=== PATIENT | female | born 2005 | race African-American/Black ===

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

== ENCOUNTER 2025-01-20 15:20 | Emergency (ER) | payer SELFPAY ==
[2025-01-20 15:24] VITALS: BP 143/90; PULSE 139; RESP 22; TEMP 36.9; O2SAT 99; BMI 21.9
--- NOTE | 2025-01-20 15:31 | EX.ED.GENINJ ---
HPI History of Present Illness Chief Complaint: Abd Pain Informant: patient Onset/Context/Timing Onset: Today Mechanism/Context: Fall Quality of Pain: Burning Location: Abdomen and left lower ribs Current Severity: Severe Maximum Severity: Severe Worsened by: Nothing Relieved by: Nothing Associated Symptoms Associated Symptoms: Negative for Parasthesias, Weakness, Loss of function, Inability to ambulate, Loss of consciousness or Amnesia Narrative Narrative: Patient presents with abdominal pain and left rib pain that began after a fall. Patient states she fell down approximately 10 wooden steps. Patient denies any head injury or loss of consciousness. Patient states her pain is mainly over her abdomen and left lower ribs. Patient admits to some nausea and vomiting. Patient states she is vomiting up some blood. Patient denies any diarrhea, melena, or hematochezia. Patient states she has had some dysuria and frequency over the past couple days. Patient denies any fevers or chills. [facility] Medical History Wears glasses Bipolar disorder Anxiety Non-smoker PCOS (polycystic ovarian syndrome) Endometriosis determined by laparoscopy ADHD Asthma Home Medications ?Medication ?Instructions ?Recorded ?Last Taken ?Type albuterol sulfate 90 mcg/actuation 1 puff inhalation PRN PRN Wheezing 01/10/19 12/21/23 History aerosol inhaler (Ventolin HFA) melatonin 5 mg tablet 5 mg PO PRN PRN Insomnia 07/19/19 12/21/23 History loratadine 10 mg capsule 10 mg PO DAILY 12/11/20 12/21/23 History norethindrone acetate 5 mg tablet 5 mg PO DAILY 11/28/22 12/21/23 History d-mannose 500 mg capsule 2,000 mg PO DAILY SUPPLEMENT 12/21/23 12/21/23 History naproxen 500 mg tablet 500 mg PO Q12H PRN PRN Pain #20 04/12/24 Unknown Rx tabs penicillin V potassium 500 mg 500 mg PO 4X/DAY #40 tabs 04/12/24 Unknown Rx tablet methocarbamol 500 mg tablet 1,000 mg (2 x 500 mg) PO 4X/DAY 04/17/24 Unknown Rx PRN Muscle pain/spasm #56 tabs Allergy/AdvReac Type Severity Reaction Status Date / Time tree and shrub pollen Allergy Other Verified 01/20/25 15:23 Surgical History S/P laparoscopy Social History Smoking Status: Current every day smoker tobacco type: cigarettes and e-cigarettes alcohol intake: never substance use type: does not use ROS ROS ED Constitutional Constitutional ED: Denies chills or fever(s) Eyes Eyes: Denies blurry vision or change in vision ENT ENT ED: Denies rhinorrhea or sore throat Cardiovascular Cardiovascular: Reports chest pain; Denies palpitations Respiratory/Chest Respiratory/Chest: Denies cough or dyspnea Gastrointestinal Gastrointestinal: Reports abdominal pain, nausea and vomiting; Denies diarrhea Genitourinary Genitourinary ED: Reports dysuria and urinary frequency Musculoskeletal Musculoskeletal: Denies back pain or neck pain Integumentary Denies abscess or rash Neurologic Neurologic: Reports headache(s); Denies weakness Allergic/Immunologic Allergic/Immunologic ED: Denies mouth swelling or urticaria EXAM Physical Exam Const Vital Signs: 01/20/25 15:24 01/20/25 16:20 01/20/25 17:10 Temperature 98.5 F Temperature Source Oral Pulse Rate 139 H 69 82 Respiratory Rate 22 H 15 16 Blood Pressure 143/90 H 116/73 130/77 H Blood Pressure Mean 107 87 94 Pulse Ox 99 100 100 Oxygen Delivery Method Room Air Room Air Room Air 01/20/25 18:00 01/20/25 19:00 Temperature 98.0 F Temperature Source Pulse Rate 78 69 Respiratory Rate 18 18 Blood Pressure 110/62 116/57 L Blood Pressure Mean 78 76 Pulse Ox 99 100 Oxygen Delivery Method Room Air Positive well nourished and well developed Constitutional Narrative: BMI is 21.9. General Appearance ED: well developed HEENT atraumatic; Negative for tenderness Neck full ROM Chest Wall Chest Narrative: There is tenderness over the left lower ribs. There is no bony crepitus or step-off. There is no subcutaneous emphysema noted. Resp normal respiratory effort and clear to auscultation bilaterally Cardio regular rhythm Rate: tachycardic GI non-distended Palpation: tender epigastric, LLQ, RLQ, LUQ, RUQ, periumbilical and suprapubic Extremity normal to inspection and full ROM Neuro oriented x3, CN's II-XII intact bilaterally, moves all extremities, no focal motor deficits and no sensory deficits noted Ezequiel Coma Scale: document GCS findings Spontaneous Obeys Commands Oriented 15 Sensorium / Orientation: alert Motor Exam: strength 5/5 throughout Psych mental status grossly normal Mood & Affect: anxious and tearful MDM MDM MDM Narrative Medical decision making narrative: Differential diagnosis includes bowel obstruction, perforation, rib fracture, chest wall contusion, pneumonia, pneumothorax, urinary tract infection, pyelonephritis, splenic rupture, hepatic laceration, pancreatitis, and contusion. CT scan of the chest, abdomen, and pelvis will be obtained to assess for rib fracture, pneumothorax, splenic laceration, hepatic laceration, bowel obstruction, and perforation. CBC will be obtained to assess for leukocytosis and anemia. Comprehensive metabolic profile will be obtained to assess for hepatic function, renal function, and electrolyte abnormality. Lipase will be obtained to assess for pancreatitis. Urinalysis will be obtained to assess for urinary tract infection and hematuria. Serum hCG will be obtained to assess for . History & Record Review Additional record(s) reviewed:: Prior ED visit and Prior labs Lab Data Attestation: I reviewed the patient's lab results. Lab results narrative: CBC was reviewed and was within normal limits. Comprehensive metabolic profile was reviewed and was within normal limits. Lipase was reviewed and was normal at 28. Serum hCG was reviewed and was negative. Urinalysis was reviewed. There is no evidence of urinary tract infection or hematuria. Labs: Laboratory Results - last 24 hr 01/20/25 01/20/25 15:27 17:07 WBC 10.1 RBC 4.70 Hgb 13.5 Hct 40.5 MCV 86.2 MCH 28.7 MCHC 33.3 RDW Std Deviation 37.2 RDW Coeff of Ray 11.8 Plt Count 358 MPV 10.1 Immature Gran % (Auto) 0.300 Neut % (Auto) 60.1 Lymph % (Auto) 30.2 Long % (Auto) 6.6 Eos % (Auto) 1.9 Baso % (Auto) 0.9 Absolute Neuts (auto) 6.1 Absolute Lymphs (auto) 3.05 Nucleated RBC % 0 Sodium 139 Potassium 3.9 Chloride 105 Carbon Dioxide 21.7 Anion Gap 12 BUN 8 Creatinine 0.94 Estim Creat Clear Calc 86.62 Est GFR (MDRD) Non-Af 89 BUN/Creatinine Ratio 8.7 L Glucose 92 Calcium 9.7 Total Bilirubin 0.67 AST 25 ALT 13 Alkaline Phosphatase 58 Total Protein 7.7 Albumin 4.7 Globulin 3.0 Albumin/Globulin Ratio 1.6 Lipase 28 Serum , Qual NEGATIVE Urine Color Straw Urine Clarity Clear Urine pH 7.0 Ur Specific [place] 1.010 Urine Protein 15 H Urine Glucose (UA) Normal Urine Ketones Negative Urine Occult Blood Negative Urine Nitrite Negative Urine Bilirubin Negative Urine Urobilinogen Normal Ur Leukocyte Esterase Negative Urine RBC 0-5 SEEN Urine WBC 0-5 SEEN Ur Squamous Epith Cells 0 SEEN Urine Bacteria 0 SEEN Urine Mucus 0 SEEN Radiography Diagnostic Testing: Clinical Impression(s) from Imaging Studies Chest/Abdomen/Pelvis CT 01/20/25 16:59 IMPRESSION: No acute traumatic findings. Urinary bladder wall thickening may reflect cystitis versus nondistention; consider correlation with urinalysis. Question 3 mm nodule within the right middle lobe best seen on series 2, image 66. Reading Location: [facility] CT scan of the chest, abdomen, and pelvis was obtained. There is no acute abnormality noted. There are no rib fractures or pneumothorax. There is no pneumonia. There is some urinary bladder wall thickening. There is no free air or free fluid. There are no solid organ injuries. This was interpreted by the radiologist and was also independently reviewed by myself. Treatment and Re-Evaluation Narrative: Patient was given IV fluids, morphine, and Zofran. Patient was feeling better on reevaluation. Patient was advised of her findings. Patient was advised that this is most likely bruising. Patient was instructed to take Tylenol or ibuprofen as needed for pain. Patient was instructed to follow-up with her primary care physician in 5 to 7 days. Patient was instructed to return if worse in any way. Patient understood and was agreeable with the plan. All questions were answered. Discharge Plan Triage Chief Complaint: Abd Pain ED Provider: Javier Isabel Dx/Rx/DC Orders Clinical Impression: Fall, Chest wall contusion, Abdominal contusion Instructions: ED Soft Tissue Contusion, ED Chest Wall Contusion Prescriptions: No Action albuterol sulfate [Ventolin HFA] 108 HFA aerosol inhaler 1 puff inhalation PRN PRN (Reason: Wheezing) melatonin 5 tablet 5 mg PO PRN PRN (Reason: Insomnia) loratadine 10 MG capsule 10 mg PO DAILY norethindrone acetate 5 mg tablet 5 mg PO DAILY penicillin V potassium 500 mg tablet 500 mg PO 4X/DAY Qty: 40 0RF naproxen 500 mg tablet 500 mg PO Q12H PRN PRN (Reason: Pain) Qty: 20 0RF methocarbamol 500 mg tablet 1,000 mg PO 4X/DAY PRN (Reason: Muscle pain/spasm) Qty: 56 0RF d-mannose 500 mg capsule 2,000 mg PO DAILY Primary Care Provider: Mitzy Peterson Referrals: Mitzy Peterson MD [Primary Care Provider] - 5-7 Days Print Language: Kiswahili Disposition Disposition: Home, Self Care Discharge Date/Time: 01/20/25 19:14
[2025-01-20] MEDS: Morphine 4 MG/ML Syringe IV (15:44)
[2025-01-20] MEDS: 0.9% Normal Saline (1000mL) 1,000 ML 1000 ML IV (15:45)
[2025-01-20] MEDS: Ondansetron 4 MG/2 ML Vial IV (15:46)
[2025-01-20 15:48] LABS: Absolute Lymphocyte Count 3.05 X10^3/uL (0.83-4.51); Absolute Neutrophil Count 6.1 X10^3/uL (2.0-7.7); Basophil# 0.09 X10^3/uL; Basophil% 0.9 % (0-1); Eosinophil# 0.19 X10^3/uL; Eosinophils% 1.9 % (0-5); Hematocrit 40.5 % (37-47); Hemoglobin 13.5 g/dL (12.0-15.0); Lymphocyte # 3.05 X10^3/ul (0.83-4.51); Lymphocyte % 30.2 % (19-41); Mean Corp Hgb Conc 33.3 g/dL (32-36); Mean Corpuscular Hgb 28.7 pg (27.0-32.0); Mean Corpuscular Volume 86.2 fL (81-99); Mean Platelet Vol. 10.1 fl (6.2-12.0); Monocyte# 0.67 X10^3/uL; Monocyte% 6.6 % (0-10); NRBC Flagged by Analyzer 0 % (0-5); Neutrophil # 6.08 X10^3/uL (2.7-7.7); Neutrophil % 60.1 % (47-70); Platelet Count 358 K/mm3 (150-450); RBC Distribution Width CV 11.8 % (11.6-14.6); RBC Distribution Width SD 37.2 fl (35.1-43.9); White Blood Count 10.1 K/mm3 (4.4-11.0)
[2025-01-20 16:20] VITALS: BP 116/73; PULSE 69; RESP 15; O2SAT 100
[2025-01-20 16:36] LABS: ALB/GLOB Ratio 1.6 RATIO (0.9-2.4); AST(SGOT) 25 U/L (<=31); Alanine Aminotransfer ALT/SGPT 13 U/L (<=34); Albumin, Serum 4.7 g/dL (3.5-5.0); Alkaline Phosphatase 58 U/L (35-104); Anion Gap 12 (5-15); BUN 8 mg/dL (4-19); BUN/Creat Ratio 8.7 RATIO (10-20); Calcium,Total 9.7 mg/dL (7.6-11.0); Carbon Dioxide 21.7 mmol/L (21.0-32.0); Chloride 105 mmol/L (98-108); Creatinine, Serum 0.94 mg/dL (0.70-1.20); EST Glomerular Filtration Rate 89 (>60); Estimated Creatinine Clearance 86.62 ml/min (50-250); Glucose 92 mg/dL (70-99); Lipase 28 U/L (13-75); Potassium 3.9 mmol/L (3.3-5.1); Protein, Total 7.7 g/dL (5.9-8.4); Sodium Level 139 mmol/L (133-145); Total Bilirubin 0.67 mg/dL (0.00-1.30)
[2025-01-20 16:49] LABS: Internal QC Validated? YES +Cl - CLEAR BKGD; Pregnancy, Serum, hCG Quali. NEGATIVE Negative; Record Kit Lot#, Serum Preg. 947241
--- NOTE | 2025-01-20 16:59 | CT_ITS ---
PROCEDURE: CT CHEST, ABD, PEL W/CONTRAST 01/20/2025 REASON FOR EXAM: FALL TECHNIQUE: Chest, abdomen and pelvis CT with intravenous contrast. Coronal and Sagittal reconstruction series were provided. One or more dose reduction techniques were used (e.g., Automated exposure control, adjustment of the mA and/or kV according to patient size, use of iterative reconstruction technique. CONTRAST: 100 mL of Isovue 370 RADIATION DOSE SUMMARY: DLP: 404 mGycm COMPARISON: none FINDINGS: CT CHEST: Lymph nodes: Prominent bilateral axillary lymph nodes. Heart and Vasculature: Unremarkable Lungs and Airways: No focal consolidations. Left base subsegmental atelectasis. No pleural effusion or pneumothorax. Question 3 mm nodule within the right middle lobe best seen on series 2, image 66. Pleura: Unremarkable Bones: No acute fractures CT ABDOMEN/PELVIS: The liver, spleen, pancreas, both kidneys, and both adrenal glands demonstrate no acute findings. The gallbladder is unremarkable. The stomach is unremarkable. The aorta and IVC demonstrate no acute findings. There is no free air, free fluid or intestinal obstruction. The small bowel loops are not dilated. The appendix is not clearly identified, although there are no secondary signs of appendicitis. No bowel obstruction. The pelvic structures are intact. There is no solid pelvic mass. Prominent bilateral inguinal lymph nodes. Urinary bladder wall thickening may reflect cystitis versus nondistention; consider correlation with urinalysis. Visualized osseous structures demonstrate no acute abnormality. CT/CT Chest, Abd, Pel w/Contrast IMPRESSION: No acute traumatic findings. Urinary bladder wall thickening may reflect cystitis versus nondistention; cons ider correlation with urinalysis. Question 3 mm nodule within the right middle lobe best seen on series 2, image 66. Reading Location: [facility]
[2025-01-20 17:10] VITALS: BP 130/77; PULSE 82; RESP 16; O2SAT 100
[2025-01-20 17:11] LABS: Bacteria 0 SEEN /hpf (None Seen); Mucous, Urine 0 SEEN /hpf (<or=2+); Squamous Epithelial Cells - UA 0 SEEN /hpf (5-10)
[2025-01-20 18:00] VITALS: BP 110/62; PULSE 78; RESP 18; O2SAT 99
[2025-01-20 18:32] LABS: Color, Urine Straw (Yellow); Glucose, Dipstick Normal (Normal); Ketone-Dipstick Negative (Negative); Leukocyte Esterase-Dipstick Negative /ul (Negative); Nitrite-Dipstick Negative (Negative); Occult Blood-Urine Negative /ul (Negative); Protein-Dipstick 15 mg/dl (Negative); Urine Bilirubin Dipstick Negative (Negative); Urine Clarity Clear (Clear); Urine Urobilinogen Normal (Normal)
[2025-01-20 18:41] LABS: Red Blood Cells-Urine 0-5 SEEN /hpf (0-5); White Blood Cells 0-5 SEEN /hpf (0-5)
[2025-01-20 19:00] VITALS: BP 116/57; PULSE 69; RESP 18; TEMP 36.7; O2SAT 100
== END 2025-01-20 19:14 | disposition home or self-care (01) ==
PROVIDERS: Emergency Provider Emergency Medicine; PCP Pediatrics; Referring Provider Emergency Medicine; Visit Provider Emergency Medicine
DX: S30.1XXA Contusion of abdominal wall, initial encounter (principal); S20.20XA Contusion of thorax, unspecified, initial encounter; W10.9XXA Fall (on) (from) unspecified stairs and steps, initial encounter; R11.2 Nausea with vomiting, unspecified; R51.9 Headache, unspecified; R30.0 Dysuria; R35.0 Frequency of micturition; F17.210 Nicotine dependence, cigarettes, uncomplicated; E28.2 Polycystic ovarian syndrome
CPT/HCPCS: 71260; 74177; 80053; 81001; 83690; 84703; 85025; 96361; 96374; 96375; 99284; Q9967; A4216; J2405

== ENCOUNTER 2025-01-23 09:18 | Emergency (ER) | payer SELFPAY ==
[2025-01-23 09:19] VITALS: BP 118/73; PULSE 106; RESP 20; TEMP 36.8; O2SAT 100; BMI 21.4
--- NOTE | 2025-01-23 09:38 | ED.RN ---
per Dr. Peralta no sitter needed
--- NOTE | 2025-01-23 09:41 | ED.VIS.GI ---
HPI HPI - GI History of Present Illness Chief Complaint: Abd Pain Detail of Chief Complaint: Lower abdominal pelvic pain. Anxiety. Informant: patient and parent Abdominal Pain/Flank Pain Onset: Days Context: Gradual Onset Timing: Continuous Quality: Cramping Location: - (Lower abdominal pelvic pain bilaterally.) Current Severity: Mild Maximum Severity: Moderate Worsened by: Nothing Relieved by: Nothing Nausea/Vomiting/Emesis GI Symptom: Negative for Nausea or Vomiting Diarrhea/Melena/Hematochezia GI Symptom: Positive for - (History of constipation); Negative for Diarrhea, Melena or Hematochezia Associated Symptoms Associated Symptoms: Negative for Dysuria, Frequency, Hematuria or Urgency LMP: Sometime in November. Narrative Narrative: 19-year-old female G0, P0. History of bipolar, polycystic ovarian syndrome endometriosis. Only prior abdominal surgery for exploratory laparotomy. That time he diagnosed endometriosis. Denies any vaginal bleeding or discharge. Last menstrual period was sometime in November she is typically irregular. Denies any dysuria. Was seen 2 to 3 days ago. Had extensive workup that was negative. Including a CAT scan. She has had pain like this before. She is not actively suicidal. She is very anxious. She just wants to cut out her ovaries to stop the pain. Prior similar symptoms: Yes Recent Illness/Hospitalization: No PFSH PFSH Medical History Wears glasses Bipolar disorder Anxiety Non-smoker PCOS (polycystic ovarian syndrome) Endometriosis determined by laparoscopy ADHD Asthma Home Medications ?Medication ?Instructions ?Recorded ?Last Taken ?Type lorazepam 1 mg tablet (Ativan) 1 mg PO DAILY PRN anxiety 7 days 01/23/25 Unknown Rx #7 tabs Allergy/AdvReac Type Severity Reaction Status Date / Time tree and shrub pollen Allergy Other Verified 01/23/25 09:19 Surgical History S/P laparoscopy Social History Smoking Status: Current every day smoker tobacco type: cigarettes and e-cigarettes alcohol intake: never substance use type: does not use ROS ROS ED ROS Narrative Lower abdominal pain. Constitutional Constitutional ED: Denies chills or fever(s) ENT ENT ED: Denies ear pain Cardiovascular Cardiovascular: Denies chest pain Respiratory/Chest Respiratory/Chest: Denies cough or dyspnea Gastrointestinal Gastrointestinal: Reports abdominal pain and constipation; Denies diarrhea, melena, nausea or vomiting Genitourinary Genitourinary ED: Denies dysuria, hematuria or urinary frequency Musculoskeletal Musculoskeletal: Denies arthralgias or back pain Integumentary Denies abscess Neurologic Neurologic: Denies headache(s) Psychiatric Psychiatric: Reports anxiety and depression Endocrine Endocrinology: Denies polydipsia Hematologic/Lymphatic Hematologic/Lymphatic: Denies easy bleeding Allergic/Immunologic Allergic/Immunologic ED: Denies mouth swelling, tongue swelling or urticaria EXAM Physical Exam Narrative Exam Narrative: 19-year-old female very emotionally upset. Very anxious. Actively shaking. Mother at bedside. Patient is tearful. Vital signs are stable and afebrile. She does not look septic or toxic. H EENT exam pupils round reactive light. Moist John membranes. She is crying. Neck nontender no lymphadenopathy. Lungs clear to auscultation bilaterally. Heart tachycardic rate of 105 no murmur. Chest wall and ribs are nontender. Abdomen soft, nondistended, no peritoneal signs. No hernia or mass. No distention or obstruction. Revealing no significant tenderness she complains of pain in the lower abdomen pelvic area but there is really not significant reproducible pain. There is no Chung sign. No specific McBurney's point tenderness. Moving all 4 extremities. Nontender no edema. Normal strength. She ambulates without any difficulty. Back nontender. Neurologically she is awake and alert no focal motor deficits. Emotionally she is very upset. Extremely anxious and nervous. Const Vital Signs: 01/23/25 09:19 Temperature 98.2 F Temperature Source Oral Pulse Rate 106 H Respiratory Rate 20 H Blood Pressure 118/73 Blood Pressure Mean 88 Pulse Ox 100 Oxygen Delivery Method Room Air Positive well nourished and well developed; Negative for obese, cachectic, contractures or unkempt General Appearance ED: well developed and NAD; Negative for unkempt, cachectic, contractures or pallor Nutritional Appearance: Negative for cachectic or obese HEENT Reports moist mucous membranes normocephalic and atraumatic Eyes PERRL and EOMs intact bilaterally Neck no lymphadenopathy, supple and no JVD Resp normal respiratory effort and clear to auscultation bilaterally Cardio regular rhythm, S1 normal heart sound, S2 normal heart sound and no murmurs; Negative for regular rate Rate: tachycardic GI non-tender, non-distended and no masses Auscultation: normoactive bowel sounds Palpation: soft; Negative for tender, guarding, hepatomegaly, splenomegaly, hernia, mass, pulsatile mass or rebound tenderness present Back/Spine no CVA tenderness Extremity full ROM General Extremety ED: Negative for edema or tenderness General Extremity: Negative for edema Neuro CN's II-XII intact bilaterally and moves all extremities Sensorium / Orientation: alert, oriented to person, oriented to place and oriented to time; Negative for orientation impaired, confused, lethargic or stuporous Motor Exam: strength 5/5 throughout Psych mental status grossly normal and thought process normal Appearance: Negative for unkempt Attitude: No agitated Mood & Affect: Negative for depressed, anxious or tearful Skin no wounds General Skin Exam: Negative for jaundice or pallor Lesions: no lesions Rashes: no rashes MDM MDM MDM Narrative Medical decision making narrative: 19-year-old female history of bipolar, polycystic ovarian syndrome, and endometriosis. She has never been . She was seen here 2 to 3 days ago after a fall and extensive workup including a CAT scan all of which was negative. Negative UA and negative test. I think most of this is anxiety. There could also be a component of this of endometriosis. Her exam is benign. I we will recheck a UA and a test. She will be given Ativan for anxiety and Toradol for her discomfort. Do not think she needs reimaged. Repeat exam at 10:29 AM patient is doing well. She is not having pain. Her abdomen is completely benign there is no tenderness at all. Mom is at bedside her sister is now at bedside also. Patient looks much better. She is calm and relaxed after the Ativan and Toradol. We do long discussion show follow-up with [facility] for her endometriosis. She will follow-up with the counseling center for her anxiety. She will be given prescription of Ativan 1 mg 5 total for her and the family decide when she needs to use it. History & Record Review Discussion w/independent historian: Patient and Family Additional record(s) reviewed:: Prior inpatient record, Prior outpatient record, Prior ED visit and Prior labs Lab Data Attestation: I reviewed the patient's lab results. Lab results narrative: Serum test negative. UA no nitrites. No white and red cells. Only 1+ bacteria. Serum is negative. Labs: Laboratory Results - last 24 hr 01/23/25 01/23/25 09:45 09:48 Serum , Qual NEGATIVE Urine Color Yellow Urine Clarity Sl. Cloudy Urine pH 6.5 Ur Specific Petal 1.010 Urine Protein 15 H Urine Glucose (UA) Normal Urine Ketones Negative Urine Occult Blood 10 H Urine Nitrite Negative Urine Bilirubin Negative Urine Urobilinogen Normal Ur Leukocyte Esterase 25 H Urine RBC 0-5 SEEN Urine WBC 0-5 SEEN Ur Squamous Epith Cells 0-5 SEEN Urine Bacteria 1+ Urine Mucus 0 SEEN Discharge Plan Triage Chief Complaint: Abd Pain ED Provider: Yaron Peralta Dx/Rx/DC Orders Clinical Impression: Pelvic pain, History of endometriosis, Anxiety Instructions: ED Anxiety Reaction, ED Endometriosis Prescriptions: New lorazepam [Ativan] 1 mg tablet 1 mg PO DAILY PRN (Reason: anxiety) 7 Days Qty: 7 0RF Primary Care Provider: Mityz Peterson Referrals: Counseling,Center [Group of Physicians] - As soon as possible Mitzy Peterson MD [Primary Care Provider] - Dorothy Bryant MD [Med Staff - Active Staff] - 1-2 Weeks Activity Restrictions/Additional Instructions: For your pelvic and endometriosis pain alternate Motrin and Tylenol. Ativan as needed for your anxiety. Do not drink alcohol or drive while taking it. Follow-up with the counseling center for your anxiety. Otherwise to help deal with anxiety. Read about it and learn about it. Exercise. Breathing techniques. Walking. Reading. Counseling. Support groups. Follow-up with a local [facility] for your pelvic pain and endometriosis. Print Language: Turkmen Disposition Disposition: Home, Self Care
[2025-01-23 09:51] LABS: Mucous, Urine 0 SEEN /hpf (<or=2+)
[2025-01-23 09:54] LABS: Color, Urine Yellow (Yellow); Glucose, Dipstick Normal (Normal); Ketone-Dipstick Negative (Negative); Leukocyte Esterase-Dipstick 25 /ul (Negative); Nitrite-Dipstick Negative (Negative); Occult Blood-Urine 10 /ul (Negative); Protein-Dipstick 15 mg/dl (Negative); Urine Bilirubin Dipstick Negative (Negative); Urine Clarity Sl. Cloudy (Clear); Urine Urobilinogen Normal (Normal); Urine pH 6.5 (5.0 - 8.0)
[2025-01-23] MEDS: Lorazepam 2 MG/ML WCH Syringe 1 MG IV (09:56)
[2025-01-23] MEDS: Ketorolac 30 MG/ML Syringe IV (09:56)
[2025-01-23 10:00] LABS: Bacteria 1+ /hpf (None Seen); Red Blood Cells-Urine 0-5 SEEN /hpf (0-5); Squamous Epithelial Cells - UA 0-5 SEEN /hpf (5-10); White Blood Cells 0-5 SEEN /hpf (0-5)
[2025-01-23 10:11] LABS: Internal QC Validated? YES +Cl - CLEAR BKGD; Pregnancy, Serum, hCG Quali. NEGATIVE Negative
[2025-01-23 11:04] VITALS: BP 140/71; PULSE 98; RESP 19; TEMP 36.6; O2SAT 1
== END 2025-01-23 11:08 | disposition home or self-care (01) ==
PROVIDERS: Emergency Provider Emergency Medicine; PCP Pediatrics; Visit Provider Emergency Medicine
DX: R10.2 Pelvic and perineal pain (principal); F41.9 Anxiety disorder, unspecified; F17.210 Nicotine dependence, cigarettes, uncomplicated; K59.00 Constipation, unspecified; E28.2 Polycystic ovarian syndrome; Z87.42 Personal history of other diseases of the female genital tract
CPT/HCPCS: 81001; 84703; 99284; A4216

== ENCOUNTER 2025-02-05 09:25 | Emergency (ER) | payer MEDICAID, SELFPAY ==
[2025-02-05 09:26] VITALS: BP 126/71; PULSE 98; RESP 14; TEMP 36.8; O2SAT 100; BMI 21.2
--- OUTSIDE RECORDS SUMMARY | 2025-02-05 09:43 | XMS RPT_ITS | CCD ---
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 [address] [place] [address] Emergency Department Summary 01/23/25 MR#: [id number] Acct: [id number] Name: LUIS BARAJAS Rep #: [id number] : 2005 19 From: Yaron Peralta MD PCP: Dr. Mitzy Fung MD Status:REG ER Location: ED HPI HPI - GI History of Present Illness Chief Complaint: Abd Pain Detail of Chief Complaint: Lower abdominal pelvic pain. Anxiety. Informant: patient and parent Abdominal Pain/Flank Pain Onset: Days Context: Gradual Onset Timing: Continuous Quality: Cramping Location: - (Lower abdominal pelvic pain bilaterally.) Current Severity: Mild Maximum Severity: Moderate Worsened by: Nothing Relieved by: Nothing Nausea/Vomiting/An sis GI Symptom: Negative for Nausea or Vomiting Diarrhea/Melena/Hem atochezia GI Symptom: Positive for - (History of constipation); Negative for Diarrhea, Melena or Hematochezia Associated Symptoms Associated Symptoms: Negative for Dysuria, Frequency, Hematuria or Urgency LMP: Sometime in November. Narrative Narrative: 19-year-old female G0, P0. History of bipolar, polycystic ovarian syndrome endometriosis. Only prior abdominal surgery for exploratory laparotomy. That time he diagnosed endometriosis. Denies any vaginal bleeding or discharge. Last menstrual period was sometime in November she is typically irregular. Denies any dysuria. Was seen 2 to 3 days ago. Had extensive workup that was negative. Including a CAT scan. She has had pain like this before. She is not actively suicidal. She is very anxious. She just wants to cut out her ovaries to stop the pain. Prior similar symptoms: Yes Recent Illness/Hospitaliza tion: No PFSH PFSH Medical History Wears glasses Bipolar disorder Anxiety Non-smoker PCOS (polycystic ovarian syndrome) Endometriosis determined by laparoscopy ADHD Asthma Home Medications ???Medication ???Instructions ???Recorded ???Last Taken ???Type lorazepam 1 mg tablet (Ativan) 1 mg PO DAILY PRN anxiety 7 days 0 01/23/25 Unknown Rx #7 tabs Allergy/AdvReac Type Severity Reaction Status Date / Time tree and shrub pollen Allergy Other Verified 01/23/25 09:19 Surgical History S/P laparoscopy Social History Smoking Status: Current every day smoker tobacco type: cigarettes and e-cigarettes alcohol intake: never substance use type: does not use ROS ROS ED ROS Narrative Lower abdominal pain. Constitutional Constitutional ED: Denies chills or fever(s) ENT ENT ED: Denies ear pain Cardiovascular Cardiovascular: Denies chest pain Respiratory/Chest Respiratory/Chest: Denies cough or dyspnea Gastrointestinal Gastrointestinal: Reports abdominal pain and constipation; Denies diarrhea, melena, nausea or vomiting Genitourinary Genitourinary ED: Denies dysuria, hematuria or urinary frequency Musculoskeletal Musculoskeletal: Denies arthralgias or back pain Integumentary Denies abscess Neurologic Neurologic: Denies headache(s) Psychiatric Psychiatric: Reports anxiety and depression Endocrine Endocrinology: Denies polydipsia Hematologic/Lymphat ic Hematologic/Lymphat ic: Denies easy bleeding Allergic/Immunologi c Allergic/Immunologi c ED: Denies mouth swelling, tongue swelling or urticaria EXAM Physical Exam Narrative Exam Narrative: 19-year-old female very emotionally upset. Very anxious. Actively shaking. Mother at bedside. Patient is tearful. Vital signs are stable and afebrile. She does not look septic or toxic. H EENT exam pupils round reactive light. Moist John membranes. She is crying. Neck nontender no lymphadenopathy. Lungs clear to auscultation bilaterally. Heart tachycardic rate of 105 no murmur. Chest wall and ribs are nontender. Abdomen soft, nondistended, no peritoneal signs. No hernia or mass. No distention or obstruction. Revealing no significant tenderness she complains of pain in the lower abdomen pelvic area but there is really not significant reproducible pain. There is no Chung sign. No specific McBurney's point tenderness. Moving all 4 extremities. Nontender no edema. Normal strength. She ambulates without any difficulty. Back nontender. Neurologically she is awake and alert no focal motor deficits. Emotionally she is very upset. Extremely anxious and nervous. Const Vital Signs: 01/23/25 09:19 Temperature 98.2 F Temperature Source Oral Pulse Rate 106 H Respiratory Rate 20 H Blood Pressure 118/73 Blood Pressure Mean 88 Pulse Ox 100 Oxygen Delivery Method Room Air Positive well nourished and well developed; Negative for obese, cachectic, contractures or unkempt General Appearance ED (more content not included)... Normal [facility] Ketones Test strip Ql (U)Ord ered By: Yaron Peralta on 01-23-2025 Ketones Ql (U) Negative Negative [facility] Microscopic analysis of urin e for red blood cells (RBC)Ordered By: Yaron Peralta on 01-23-2025 Microscopic analysis of urine for red blood cells (RBC) 0-5 SEEN /hpf 0-5 [facility] Mucus LM Ql (Urine sed)Order ed By: Yaron Peralta on 01-23-2025 Mucus Ql (Urine sed) 0 SEEN /hpf [facility] Nitrite Test strip Ql (U)Ord ered By: Yaron Peralta on 01-23-2025 Nitrite Ql (U) Negative Negative [facility] ,Serum,hCG Quali.on 01-23-2025 HCG, SERUM QUAL Negative Normal [facility] Comment on above: Performed By: #### L 700.6800 #### [facility] [address] [place], [address] Protein Test strip Ql (U)Ord ered By: Yaron Peralta on 01-23-2025 Protein Ql (U) 15 mg/dl High Negative [facility] Serum beta-hCG test, qualita tiveOrdered By: Yaron Peralta on 01-23-2025 Beta HCG ( test) Ql Negative [facility] Squamous epithelial cells de tection in urine sediment by light microscopyOrdered By: Yaron Peralta on 01-23-2025 Epithelial cells.squamous LM Ql (Urine sed) 0-5 SEEN /hpf 5-10 [facility] Urinalysis, Completeon 01-23 BACTERIA 1+ /hpf Normal None Seen [facility] Comment on above: Order Comment: CLEAN CATCH Performed By: #### L 400.0001 #### [facility] [address] [place], [place], [id number] EPI,SQUAMOUS 0-5 SEEN Normal 5-10 [facility] Comment on above: Order Comment: CLEAN CATCH Performed By: #### L 400.0001 #### [facility] [address] [place], [address] RBC 0-5 SEEN Normal 0-5 [facility] Comment on above: Order Comment: CLEAN CATCH Performed By: #### L 400.0001 #### [facility] [address] [place], [address] WBC 0-5 SEEN Normal 0-5 [facility] Comment on above: Order Comment: CLEAN CATCH Performed By: #### L 400.0001 #### [facility] [address] [place], [address] Mucus Ql (Urine sed) 0 SEEN Normal [facility] Comment on above: Order Comment: CLEAN CATCH Performed By: #### L 400.0001 #### [facility] [address] [place], [place], [id number] Urine clarityOrdered By: Lele Peralta on 01-23-2025 Clarity (U) Sl. Cloudy Clear [facility] Urine color determinationOrd ered By: Yaron Peralta on 01-23-2025 Color (U) Yellow Yellow [facility] Urine glucose detectionOrder ed By: Yaron Peralta on 01-23-2025 Glucose Ql (U) Normal mg/dl Normal [facility] Urine leukocyte esterase det ection by dipstickOrdered By: Yaron Peralta on 01-23-2025 Leukocyte esterase Test strip Ql (U) 25 /ul High Negative [facility] Urine pHOrdered By: Yaron Landis ght on 01-23-2025 pH (U) 6.5 [pH] 5.0 - 8.0 [facility] Urine sediment bacteria coun t by microscopy (number/high power field)Ordered By: Yaron Peralta on 01-23-2025 Bacteria LM.HPF (Urine sed) [#/Area] 1 /[HPF] None Seen [facility] Urine specific gravity measu rementOrdered By: Yaron Peralta on 01-23-2025 Specific gravity (U) [Rel density] 1.010 1.002-1.030 [facility] Urine urobilinogen measureme ntOrdered By: Yaron Peralta on 01-23-2025 Urobilinogen Ql (U) Normal mg/dl Normal [facility] White blood cell countOrdere d By: Yaron Peralta on 01-23-2025 White blood cell count 0-5 SEEN /hpf 0-5 [facility] Absolute lymphocyte countOrd ered By: Javier Isabel on 01-20-2025 Lymphocytes Auto (Unsp spec) [#/Vol] 3.05 10*3/uL 0.83-4.51 [facility] Absolute neutrophil countOrd ered By: Javier Isabel on 01-20-2025 Neutrophils (Bld) [#/Vol] 6.1 10*3/uL 2.0-7.7 [facility] Anion gap in Serum or Plasma Ordered By: Javier Isabel on 01-20-2025 Anion gap [Moles/Vol] 12 mmol/L 5-15 [facility] Automated lymphocyte count a s percentage of total leukocytesOrdered By: Javier Isabel on 01-20-2025 Lymphocytes/100 WBC Auto (Unsp spec) 30.2 % 19-41 [facility] BUN/creatinine ratioOrdered By: Javier Isabel on 01-20-2025 Urea nitrogen/Creatinine [Mass ratio] 8.7 mg/mg Low 10-20 [facility] Basophil percentageOrdered B y: Javier Isabel on 01-20-2025 Basophils/100 WBC (Bld) 0.9 % 0-1 [facility] Bilirubin Test strip Ql (U)O rdered By: Javier Isabel on 01-20-2025 Bilirubin Ql (U) Negative Negative [facility] Bilirubin, totalOrdered By: Javier Isabel on 01-20-2025 Bilirubin [Mass/Vol] 0.67 mg/dL 0.00-1.30 [facility] CBC W/Diff, Automatedon 12-24 Absolute Lymph 3.05 X10 3/uL Normal 0.83-4.51 [facility] Comment on above: Performed By: #### L 700.6800, L501.2450, L500.4050, L100.0100 #### [facility] [address] [place], [address] Absolute Neut 6.1 X10 3/uL Normal 2.0-7.7 [facility] Comment on above: Performed By: #### L 700.6800, L501.2450, L500.4050, L100.0100 #### [facility] [address] [place], [address] Basophils/100 WBC (Bld) 0.9 % Normal 0-1 [facility] Comment on above: Performed By: #### L 700.6800, L501.2450, L500.4050, L100.0100 #### [facility] [address] [place], [address] Eosinophils/100 WBC (Bld) 1.9 % Normal 0-5 [facility] Comment on above: Performed By: #### L 700.6800, L501.2450, L500.4050, L100.0100 #### [facility] [address] [place], [address] Erythrocyte distribution width (RBC) [Ratio] 11.8 % Normal 11.6-14.6 [facility] Comment on above: Performed By: #### L 700.6800, L501.2450, L500.4050, L100.0100 #### [facility] [address] [place], [address] Hematocrit (Bld) [Volume fraction] 40.5 % Normal 37-47 [facility] Comment on above: Performed By: #### L 700.6800, L501.2450, L500.4050, L100.0100 #### [facility] [address] [place], [address] Hemoglobin (Bld) [Mass/Vol] 13.5 g/dL Normal 12.0-15.0 [facility] Comment on above: Performed By: #### L 700.6800, L501.2450, L500.4050, L100.0100 #### [facility] [address] [place], [address] IG% 0.300 Normal 0.0-0.9 [facility] Comment on above: Result Comment: IG% - Immature Granulocytes (promyelocytes, myelocytes and metamyelocytes) > 1% indicates that a LEFT SHIFT is Present. Performed By: #### L 700.6800, L501.2450, L500.4050, L100.0100 #### [facility] [address] [place], [address] Lymphocytes/100 WBC (Bld) 30.2 % Normal 19-41 [facility] Comment on above: Performed By: #### L 700.6800, L501.2450, L500.4050, L100.0100 #### [facility] [address] [place], [address] MCH (RBC) [Entitic mass] 28.7 pg Normal 27.0-32.0 [facility] Comment on above: Performed By: #### L 700.6800, L501.2450, L500.4050, L100.0100 #### [facility] [address] [place], [address] MCHC (RBC) [Mass/Vol] 33.3 g/dL Normal 32-36 [facility] Comment on above: Performed By: #### L 700.6800, L501.2450, L500.4050, L100.0100 #### [facility] [address] [place], [address] MCV (RBC) [Entitic vol] 86.2 fL Normal 81-99 [facility] Comment on above: Performed By: #### L 700.6800, L501.2450, L500.4050, L100.0100 #### [facility] [address] [place], [address] Monocytes/100 WBC (Bld) 6.6 % Normal 0-10 [facility] Comment on above: Performed By: #### L 700.6800, L501.2450, L500.4050, L100.0100 #### [facility] [address] [place], [address] Neutrophils/100 WBC (Bld) 60.1 % Normal 47-70 [facility] Comment on above: Performed By: #### L 700.6800, L501.2450, L500.4050, L100.0100 #### [facility] [address] [place], [address] Nucleated RBC (Bld) [#/Vol] 0 10*3/uL Normal 0-5 [facility] Comment on above: Performed By: #### L 700.6800, L501.2450, L500.4050, L100.0100 #### [facility] [address] [place], [address] Platelet mean volume (Bld) [Entitic vol] 10.1 fL Normal 6.2-12.0 [facility] Comment on above: Performed By: #### L 700.6800, L501.2450, L500.4050, L100.0100 #### [facility] [address] [place], [address] Platelets (Bld) [#/Vol] 358 10*3/uL Normal 150-450 [facility] Comment on above: Performed By: #### L 700.6800, L501.2450, L500.4050, L100.0100 #### [facility] [address] [place], [address] RBC (Bld) [#/Vol] 4.70 10*6/uL Normal 4.2-5.4 [facility] Comment on above: Performed By: #### L 700.6800, L501.2450, L500.4050, L100.0100 #### [facility] [address] [place], [address] RDW SD 37.2 fl Normal 35.1-43.9 [facility] Comment on above: Performed By: #### L 700.6800, L501.2450, L500.4050, L100.0100 #### [facility] [address] [place], [address] WBC (Bld) [#/Vol] 10.1 10*3/uL Normal 4.4-11.0 [facility] Comment on above: Performed By: #### L 700.6800, L501.2450, L500.4050, L100.0100 #### [facility] [address] [place], [address] CT Chest, Abd, Pel w/Contras ton 01-20-2025 CT Chest, Abd, Pel w/Contrast [facility] Services [address] [place] [address] CT Chest, Abd, Pel w/Contrast MR#: [id number] Acct: [id number] Name: LUIS BARAJAS Rep #: [id number] : 2005 F 19 From: José Luis Robison PCP: Dr. Mitzy Fung MD Status: [facility] ER Study: CT Chest, Abd, Pel w/Contrast Date of Exam: Exam# [id number] Ordering Dr: Javier Isabel DO PROCEDURE: CT CHEST, ABD, PEL W/CONTRAST 01/20/2025 REASON FOR EXAM: FALL TECHNIQUE: Chest, abdomen and pelvis CT with intravenous contrast. Coronal and Sagittal reconstruction series were provided. One or more dose reduction techniques were used (e.g., Automated exposure control, adjustment of the mA and/or kV according to patient size, use of iterative reconstruction technique. CONTRAST: 100 mL of Isovue 370 RADIATION DOSE SUMMARY: DLP: 404 mGycm COMPARISON: none FINDINGS: CT CHEST: Lymph nodes: Prominent bilateral axillary lymph nodes. Heart and Vasculature: Unremarkable Lungs and Airways: No focal consolidations. Left base subsegmental atelectasis. No pleural effusion or pneumothorax. Question 3 mm nodule within the right middle lobe best seen on series 2, image 66. Pleura: Unremarkable Bones: No acute fractures CT ABDOMEN/PELVIS: The liver, spleen, pancreas, both kidneys, and both adrenal glands demonstrate no acute findings. The gallbladder is unremarkable. The stomach is unremarkable. The aorta and IVC demonstrate no acute findings. There is no free air, free fluid or intestinal obstruction. The small bowel loops are not dilated. The appendix is not clearly identified, although there are no secondary signs of appendicitis. No bowel obstruction. The pelvic structures are intact. There is no solid pelvic mass. Prominent bilateral inguinal lymph nodes. Urinary bladder wall thickening may reflect cystitis versus nondistention; consider correlation with urinalysis. Visualized osseous structures demonstrate no acute abnormality. CT/CT Chest, Abd, Pel w/Contrast IMPRESSION: No acute traumatic findings. Urinary bladder wall thickening may reflect cystitis versus nondistention; consider correlation with urinalysis. Question 3 mm nodule within the right middle lobe best seen on series 2, image 66. Reading Location: [facility] CC: Dr. Javier Isabel DO; Dr. Mitzy Fung MD Central Lab Technician: Signed Normal [facility] Carbon dioxide, total [Moles /volume] in Central venous bloodOrdered By: Javier Isabel on 01-20-2025 CO2 [Moles/Vol] 21.7 mmol/L 21.0-32.0 [facility] Chloride assayOrdered By: Sana Isabel on 01-20-2025 Chloride [Moles/Vol] 105 mmol/L 98-108 [facility] Comprehensive Metabolic Prof ilon 01-20-2025 Albumin [Mass/Vol] 4.7 g/dL Normal 3.5-5.0 [facility] Comment on above: Performed By: #### L 700.6800, L501.2450, L500.4050, L100.0100 #### [facility] [place], [address] Albumin/Globulin [Mass ratio] 1.6 {ratio} Normal 0.9-2.4 [facility] Comment on above: Performed By: #### L 700.6800, L501.2450, L500.4050, L100.0100 #### [facility] [address] [place], [address] ALK PHOS 58 U/L Normal 35-104 [facility] Comment on above: Performed By: #### L 700.6800, L501.2450, L500.4050, L100.0100 #### [facility] [address] [place], [address] ALT [Catalytic activity/Vol] 13 U/L Normal <=34 [facility] Comment on above: Performed By: #### L 700.6800, L501.2450, L500.4050, L100.0100 #### [facility] [address] [place], [address] AST [Catalytic activity/Vol] 25 U/L Normal <=31 [facility] Comment on above: Performed By: #### L 700.6800, L501.2450, L500.4050, L100.0100 #### [facility] [address] [place], [address] Bilirubin [Mass/Vol] 0.67 mg/dL Normal 0.00-1.30 [facility] Comment on above: Performed By: #### L 700.6800, L501.2450, L500.4050, L100.0100 #### [facility] [address] [place], [address] BUN/CRE 8.7 RATIO Low 10-20 [facility] Comment on above: Performed By: #### L 700.6800, L501.2450, L500.4050, L100.0100 #### [facility] [address] [place], [address] Calcium [Mass/Vol] 9.7 mg/dL Normal 7.6-11.0 [facility] Comment on above: Performed By: #### L 700.6800, L501.2450, L500.4050, L100.0100 #### [facility] [address] [place], [address] Chloride [Moles/Vol] 105 mmol/L Normal 98-108 [facility] Comment on above: Performed By: #### L 700.6800, L501.2450, L500.4050, L100.0100 #### [facility] [address] [place], [address] CO2 [Moles/Vol] 21.7 mmol/L Normal 21.0-32.0 [facility] Comment on above: Performed By: #### L 700.6800, L501.2450, L500.4050, L100.0100 #### [facility] [address] [place], [address] Creatinine [Mass/Vol] 0.94 mg/dL Normal 0.70-1.20 [facility] Comment on above: Performed By: #### L 700.6800, L501.2450, L500.4050, L100.0100 #### [facility] [address] [place], [address] ECRCL 86.62 ml/min Normal 50-250 [facility] Comment on above: Performed By: #### L 700.6800, L501.2450, L500.4050, L100.0100 #### [facility] [address] [place], [address] GAP 12 Normal 5-15 [facility] Comment on above: Performed By: #### L 700.6800, L501.2450, L500.4050, L100.0100 #### [facility] [address] [place], [address] GFR/1.73 sq M.predicted among non-blacks MDRD (S/P/Bld) [Vol rate/Area] 89 mL/min/{1.73_m2} Normal >60 [facility] Comment on above: Result Comment: mL/m in/1.73m2 CKD-EPI Creatinine Equation (2020) Performed By: #### L 700.6800, L501.2450, L500.4050, L100.0100 #### [facility] [address] [place], [address] Globulin (S) [Mass/Vol] 3.0 g/dL Normal 2.2-4.2 [facility] Comment on above: Performed By: #### L 700.6800, L501.2450, L500.4050, L100.0100 #### [facility] [address] [place], [address] Glucose [Mass/Vol] 92 mg/dL Normal 70-99 [facility] Comment on above: Performed By: #### L 700.6800, L501.2450, L500.4050, L100.0100 #### [facility] [address] [place], [address] Potassium [Moles/Vol] 3.9 mmol/L Normal 3.3-5.1 [facility] Comment on above: Performed By: #### L 700.6800, L501.2450, L500.4050, L100.0100 #### [facility] [address] [place], [address] Sodium [Moles/Vol] 139 mmol/L Normal 133-145 [facility] Comment on above: Performed By: #### L 700.6800, L501.2450, L500.4050, L100.0100 #### [facility] [address] [place], [address] T PROT 7.7 g/dL Normal 5.9-8.4 [facility] Comment on above: Performed By: #### L 700.6800, L501.2450, L500.4050, L100.0100 #### [facility] [address] [place], [address] Urea nitrogen [Mass/Vol] 8 mg/dL Normal 4-19 [facility] Comment on above: Performed By: #### L 700.6800, L501.2450, L500.4050, L100.0100 #### [facility] [address] [place], [address] Emergency Department Summary on 01-20-2025 Emergency Department Summary [facility] Medical Records Department [address] [place] [address] Emergency Department Summary 01/20/25 MR#: [id number] Acct: [id number] Name: LUIS BARAJAS Rep #: [id number] : 2005 19 From: Javier Isabel DO PCP: Dr. Mitzy Fung MD Status:DEP ER Location: ED HPI History of Present Illness Chief Complaint: Abd Pain Informant: patient Onset/Context/Timin g Onset: Today Mechanism/Context: Fall Quality of Pain: Burning Location: Abdomen and left lower ribs Current Severity: Severe Maximum Severity: Severe Worsened by: Nothing Relieved by: Nothing Associated Symptoms Associated Symptoms: Negative for Parasthesias, Weakness, Loss of function, Inability to ambulate, Loss of consciousness or Amnesia Narrative Narrative: Patient presents with abdominal pain and left rib pain that began after a fall. Patient states she fell down approximately 10 wooden steps. Patient denies any head injury or loss of consciousness. Patient states her pain is mainly over her abdomen and left lower ribs. Patient admits to some nausea and vomiting. Patient states she is vomiting up some blood. Patient denies any diarrhea, melena, or hematochezia. Patient states she has had some dysuria and frequency over the past couple days. Patient denies any fevers or chills. [facility] Medical History Wears glasses Bipolar disorder Anxiety Non-smoker PCOS (polycystic ovarian syndrome) Endometriosis determined by laparoscopy ADHD Asthma Home Medications ???Medication ???Instructions ???Recorded ???Last Taken ???Type albuterol sulfate 90 mcg/actuation 1 puff inhalation PRN PRN Wheezi ng 01/10/19 12/21/23 History aerosol inhaler (Ventolin HFA) melatonin 5 mg tablet 5 mg PO PRN PRN Insomnia 07/19/19 12/21/23 History loratadine 10 mg capsule 10 mg PO DAILY 12/11/20 12/21/23 H istory norethindrone acetate 5 mg tablet 5 mg PO DAILY 11/28/22 12/21/23 H istory d-mannose 500 mg capsule 2,000 mg PO DAILY SUPPLEMENT 12/2012/21/23 History naproxen 500 mg tablet 500 mg PO Q12H PRN PRN Pain #20 Unknown Rx tabs penicillin V potassium 500 mg 500 mg PO 4X/DAY #40 tabs 04/12/24 Unknown Rx tablet methocarbamol 500 mg tablet 1,000 mg (2 x 500 mg) PO 4X/DAY Unknown Rx PRN Muscle pain/spasm #56 tabs Allergy/AdvReac Type Severity Reaction Status Date / Time tree and shrub pollen Allergy Other Verified 01/20/25 15:23 Surgical History S/P laparoscopy Social History Smoking Status: Current every day smoker tobacco type: cigarettes and e-cigarettes alcohol intake: never substance use type: does not use ROS ROS ED Constitutional Constitutional ED: Denies chills or fever(s) Eyes Eyes: Denies blurry vision or change in vision ENT ENT ED: Denies rhinorrhea or sore throat Cardiovascular Cardiovascular: Reports chest pain; Denies palpitations Respiratory/Chest Respiratory/Chest: Denies cough or dyspnea Gastrointestinal Gastrointestinal: Reports abdominal pain, nausea and vomiting; Denies diarrhea Genitourinary Genitourinary ED: Reports dysuria and urinary frequency Musculoskeletal Musculoskeletal: Denies back pain or neck pain Integumentary Denies abscess or rash Neurologic Neurologic: Reports headache(s); Denies weakness Allergic/Immunologi c Allergic/Immunologi c ED: Denies mouth swelling or urticaria EXAM Physical Exam Const Vital Signs: 01/20/25 15:24 01/20/25 16:20 01/20/25 17:10 Temperature 98.5 F Temperature Source Oral Pulse Rate 139 H 69 82 Respiratory Rate 22 H 15 16 Blood Pressure 143/90 H 116/73 130/77 H Blood Pressure Mean 107 87 94 Pulse Ox 99 100 100 Oxygen Delivery Method Room Air Room Air Room Air 01/20/25 18:00 01/20/25 19:00 Temperature 98.0 F Temperature Source Pulse Rate 78 69 Respiratory Rate 18 18 Blood Pressure 110/62 116/57 L Blood Pressure Mean 78 76 Pulse Ox 99 100 Oxygen Delivery Method Room Air Positive well nourished and well developed Constitutional Narrative: BMI is 21.9. General Appearance ED: well developed HEENT atraumatic; Negative for tenderness Neck full ROM Chest Wall Chest Narrative: There is tenderness over the left lower ribs. There is no bony crepitus or step-off. There is no subcutaneous emphysema noted. Resp normal respiratory effort and clear to auscultation bilaterally Cardio regular rhythm Rate: tachycardic GI non-distended Palpation: tender epigastric, LLQ, RLQ, LUQ, RUQ, periumbilical and suprapubic Extremity normal to inspection and full ROM Neuro oriented x3, CN's (more content not included)... Normal [facility] Eosinophil percentageOrdered By: Javier Isabel on 01-20-2025 Eosinophils/100 WBC (Bld) 1.9 % 0-5 [facility] Erythrocyte distribution wid th ratioOrdered By: Javier Isabel on 01-20-2025 Erythrocyte distribution width (RBC) [Ratio] 11.8 % 11.6-14.6 [facility] Erythrocyte distribution wid th standard deviationOrdered By: Javier Isabel on 01-20-2025 Erythrocyte distribution width (RBC) [Ratio] 37.2 fl 35.1-43.9 [facility] Glomerular filtration rate ( GFR) estimation/1.73 sq m using serum, plasma, or whole bOrdered By: Javier Isabel on 01-20-2025 GFR/1.73 sq M.predicted among non-blacks MDRD (S/P/Bld) [Vol rate/Area] 89 mL/min/{1.73_m2} >60 [facility] Comment on above: mL/min/1.73m2 CKD-EP I Creatinine Equation (2020) Hematocrit Auto (Bld) [Volum e fraction]Ordered By: Javier Isabel on 01-20-2025 Hematocrit (Bld) [Volume fraction] 40.5 % 37-47 [facility] Hemoglobin measurementOrdere d By: Javier Isabel on 01-20-2025 Hemoglobin (Bld) [Mass/Vol] 13.5 g/dL 12.0-15.0 [facility] Immature granulocytes/100 WB C Auto (Bld)Ordered By: Javier Isabel on 01-20-2025 Immature granulocytes/100 WBC (Bld) 0.300 % 0.0-0.9 [facility] Comment on above: IG% - Immature Granu locytes (promyelocytes, myelocytes and metamyelocytes) > 1% indicates that a LEFT SHIFT is Present. Ketones Test strip Ql (U)Ord ered By: Javier Isabel on 01-20-2025 Ketones Ql (U) Negative Negative [facility] - Chemistry and C hemistry - challengeOrdered By: Javier Isabel on 01-20-2025 AST [Catalytic activity/Vol] 25 U/L <32 [facility] Lipaseon 01-20-2025 Lipase [Catalytic activity/Vol] 28 U/L Normal 13-75 [facility] Comment on above: Result Comment: Antonio castro note: LIPASE revised reference range effective 22. New Lipase methodology. Expected to produce lower values than the previous assay method. NEW Reference Range: 13 - 75 U/L Performed By: #### L 700.6800, L501.2450, L500.4050, L100.0100 #### [facility] [address] [place], [place], [id number] Lipase measurementOrdered By : Javier Isabel on 01-20-2025 Lipase [Catalytic activity/Vol] 28 U/L 13-75 [facility] Comment on above: Please note:LIPASE r evised reference range effective 22. New Lipase methodology. Expected to produce lower values than the previous assay method. NEW Reference Range: 13 - 75 U/L MCV (mean corpuscular volume ) determinationOrdered By: Javier Isabel on 01-20-2025 MCV (RBC) [Entitic vol] 86.2 fL 81-99 [facility] Mean corpuscular hemoglobin (MCH) determinationOrdered By: Javier Isabel on 01-20-2025 MCH (RBC) [Entitic mass] 28.7 pg 27.0-32.0 [facility] Mean corpuscular hemoglobin concentration (MCHC) determinationOrdered By: Javier Isabel on 01-20-2025 MCHC (RBC) [Mass/Vol] 33.3 g/dL 32-36 [facility] Mean platelet volume determi nationOrdered By: Javier Isabel on 01-20-2025 Platelet mean volume (Bld) [Entitic vol] 10.1 fL 6.2-12.0 [facility] Microscopic analysis of urin e for red blood cells (RBC)Ordered By: Javier Isabel on 01-20-2025 Microscopic analysis of urine for red blood cells (RBC) 0-5 SEEN /hpf 0-5 [facility] Monocyte percentageOrdered B y: Javier Isabel on 01-20-2025 Monocytes/100 WBC (Bld) 6.6 % 0-10 [facility] Mucus LM Ql (Urine sed)Order ed By: Javier Isabel on 01-20-2025 Mucus Ql (Urine sed) 0 SEEN /hpf [facility] Neutrophil percentageOrdered By: Javier Isabel on 01-20-2025 Neutrophils/100 WBC (Bld) 60.1 % 47-70 [facility] Nitrite Test strip Ql (U)Ord ered By: Javier Isabel on 01-20-2025 Nitrite Ql (U) Negative Negative [facility] Nucleated red blood cell per centageOrdered By: Javier Isabel on 01-20-2025 Nucleated RBC/100 WBC (Bld) [Ratio] 0 % 0-5 [facility] Platelet countOrdered By: Sana Isabel on 01-20-2025 Platelets (Bld) [#/Vol] 358 10*3/uL 150-450 [facility] Potassium measurement (mass/ volume)Ordered By: Javier Isabel on 01-20-2025 Potassium (Unsp spec) [Mass/Vol] 3.9 mmol/L 3.3-5.1 [facility] ,Serum,hCG Quali.on 01-20-2025 HCG, SERUM QUAL Negative Normal [facility] Comment on above: Performed By: #### L 700.6800, L501.2450, L500.4050, L100.0100 #### [facility] [address] [place], [address] Protein Test strip Ql (U)Ord ered By: Javier Isabel on 01-20-2025 Protein Ql (U) 15 mg/dl High Negative [facility] RBC Auto (Bld) [#/Vol]Ordere d By: Javier Isabel on 01-20-2025 RBC (Bld) [#/Vol] 4.70 10*6/uL 4.2-5.4 [facility] Serum beta-hCG test, qualita tiveOrdered By: Javier Isabel on 01-20-2025 Beta HCG ( test) Ql Negative [facility] Serum creatinine measurement (mass/volume)Ordered By: Javier Isabel on 01-20-2025 Creatinine [Mass/Vol] 0.94 mg/dL 0.70-1.20 [facility] Serum globulin measurementOr dered By: Javier Isabel on 01-20-2025 Globulin (S) [Mass/Vol] 3.0 g/dL 2.2-4.2 [facility] Serum glucose measurement (m ass/volume)Ordered By: Javier Isabel on 01-20-2025 Glucose [Mass/Vol] 92 mg/dL 70-99 [facility] Serum or plasma alanine lowe otransferase (ALT) measurementOrdered By: Javier Isabel on 01-20-2025 ALT [Catalytic activity/Vol] 13 U/L <35 [facility] Serum or plasma albumin vel urement (mass/volume)Ordered By: Javier Isabel on 01-20-2025 Albumin [Mass/Vol] 4.7 g/dL 3.5-5.0 [facility] Serum or plasma albumin/glob ulin mass ratioOrdered By: Javier Isabel on 01-20-2025 Albumin/Globulin [Mass ratio] 1.6 {ratio} 0.9-2.4 [facility] Serum or plasma alkaline jeromy sphatase measurementOrdered By: Javier Isabel on 01-20-2025 ALP [Catalytic activity/Vol] 58 U/L 35-104 [facility] Serum or plasma calcium vel urement (mass/volume)Ordered By: Javier Isabel on 01-20-2025 Calcium [Mass/Vol] 9.7 mg/dL 7.6-11.0 [facility] Serum or plasma urea nitroge n measurement (mass/volume)Ordered By: Javier Isabel on 01-20-2025 Urea nitrogen [Mass/Vol] 8 mg/dL 4-19 [facility] Sodium levelOrdered By: Javier Isabel on 01-20-2025 Sodium [Moles/Vol] 139 mmol/L 133-145 [facility] Squamous epithelial cells de tection in urine sediment by light microscopyOrdered By: Javier Isabel on 01-20-2025 Epithelial cells.squamous LM Ql (Urine sed) 0 SEEN /hpf 5-10 [facility] Total proteinOrdered By: Lina Isable on 01-20-2025 Protein [Mass/Vol] 7.7 g/dL 5.9-8.4 [facility] Urinalysis, Completeon 01-20 RBC 0-5 SEEN Normal 0-5 [facility] Comment on above: Order Comment: CLEAN CATCH Performed By: #### L 400.0001 ####[facility] [id number] [place] [id number] WBC 0-5 SEEN Normal 0-5 [facility] Comment on above: Order Comment: CLEAN CATCH Performed By: #### L 400.0001 ####[facility] [address] [place] [id number] BACTERIA 0 SEEN Normal None Seen [facility] Comment on above: Order Comment: CLEAN CATCH Performed By: #### L 400.0001 ####[facility] [id number] [place] [id number] EPI,SQUAMOUS 0 SEEN Normal 5-10 [facility] Comment on above: Order Comment: CLEAN CATCH Performed By: #### L 400.0001 ####[facility] [id number] [place], [address] Mucus Ql (Urine sed) 0 SEEN Normal [facility] Comment on above: Order Comment: CLEAN CATCH Performed By: #### L 400.0001 ####[facility] [id number] [place], [address] Urine clarityOrdered By: Lina Isabel on 01-20-2025 Clarity (U) Clear Clear [facility] Urine color determinationOrd ered By: Javier Isabel on 01-20-2025 Color (U) Straw Yellow [facility] Urine glucose detectionOrder ed By: Javier Isabel on 01-20-2025 Glucose Ql (U) Normal mg/dl Normal [facility] Urine leukocyte esterase det ection by dipstickOrdered By: Javier Isabel on 01-20-2025 Leukocyte esterase Test strip Ql (U) Negative Negative [facility] Urine pHOrdered By: Javier dow on 01-20-2025 pH (U) 7.0 [pH] 5.0 - 8.0 [facility] Urine sediment bacteria coun t by microscopy (number/high power field)Ordered By: Javier Isabel on 01-20-2025 Bacteria LM.HPF (Urine sed) [#/Area] 0 /[HPF] None Seen [facility] Urine specific gravity measu rementOrdered By: Javier Isabel on 01-20-2025 Specific gravity (U) [Rel density] 1.010 1.002-1.030 [facility] Urine urobilinogen measureme ntOrdered By: Javier Isabel on 01-20-2025 Urobilinogen Ql (U) Normal mg/dl Normal [facility] White blood cell (WBC) count Ordered By: Javier Isabel on 01-20-2025 WBC (Bld) [#/Vol] 10.1 10*3/uL 4.4-11.0 [facility] White blood cell countOrdere d By: Javier Isabel on 01-20-2025 White blood cell count 0-5 SEEN /hpf 0-5 [facility] C-REACTIVE PROTEINon 025 CRP [Mass/Vol] mg/L Invalid Interpretation Code <= 1.0 mg/dL [facility] Comment on above: Order Comment: Relea se to patient->Automatic Result Comment: CRP determinations in neonates should be interpreted with caution. CRP may be elevated in circumstances not associated with inflammation (e.g. difficult delivery, pneumothorax). In premature neonates CRP levels may not rise to abnormal levels even if sepsis is present; some speculate that immature liver function decreases the ability to generate a CRP response. Verified By: [id number] C-reactive protein (Lab Fred ect)on 09-07-2024 CRP [Mass/Vol] <= 1.0 mg/dL MG/DL [facility] Comment on above: CRP determinations i n neonates should be interpreted with caution. CRP may be elevated in circumstances not associated with inflammation (e.g. difficult delivery, pneumothorax). In premature neonates CRP levels may not rise to abnormal levels even if sepsis is present; some speculate that immature liver function decreases the ability to generate a CRP response. Verified By: [id number] COMPLETE BLOOD COUNT WITH DI FFERENTIALon 09-07-2024 Basophil \P\ 0.08 10E3/???L High 0.02-0.06 [facility] Comment on above: Order Comment: Relea se to patient->Automatic Basophils/100 WBC (Bld) 0.7 % Invalid Interpretation Code 0.3-0.9 [facility] Comment on above: Order Comment: Relea se to patient->Automatic Eosinophil \P\ 0.17 10E3/???L Invalid Interpretation Code 0.04-0.27 [facility] Comment on above: Order Comment: Relea se to patient->Automatic Eosinophils/100 WBC (Bld) 1.4 % Invalid Interpretation Code 0.6-3.8 [facility] Comment on above: Order Comment: Relea se to patient->Automatic Erythrocyte distribution width (RBC) [Ratio] 12.4 % Invalid Interpretation Code 11.9-14.8 [facility] Comment on above: Order Comment: Relea se to patient->Automatic Hematocrit (Bld) [Volume fraction] 46.4 % High 35.5-44.6 [facility] Comment on above: Order Comment: Relea se to patient->Automatic Hemoglobin (Bld) [Mass/Vol] 15.1 g/dL High 11.4-14.8 [facility] Comment on above: Order Comment: Relea se to patient->Automatic Immature granulocytes/100 WBC (Bld) 0.3 % Invalid Interpretation Code 0.2-0.5 [facility] Comment on above: Order Comment: Relea se to patient->Automatic Result Comment: Jina ture Granulocyte Percent includes promyelocytes, myelocytes,and metamyelocytes. IG% > 1.0 indicates a left shift is present. With automated differentials, bands are included in the neutrophil count and not in the Immature Granulocyte Percent. Lymphocyte \P\ 3.57 10E3/???L High 1.51-2.99 [facility] Comment on above: Order Comment: Relea se to patient->Automatic Lymphocytes/100 WBC (Bld) 29.2 % Invalid Interpretation Code 21.8-42.1 [facility] Comment on above: Order Comment: Relea se to patient->Automatic MCH (RBC) [Entitic mass] 28.2 pg Invalid Interpretation Code 25.7-31.2 [facility] Comment on above: Order Comment: Relea se to patient->Automatic MCHC 32.5 % Invalid Interpretation Code 31.3-34.0 [facility] Comment on above: Order Comment: Relea se to patient->Automatic MCV (RBC) [Entitic vol] 86.6 fL Invalid Interpretation Code 80.7-93.7 [facility] Comment on above: Order Comment: Relea se to patient->Automatic Monocyte \P\ 0.89 10E3/???L High 0.36-0.77 [facility] Comment on above: Order Comment: Relea se to patient->Automatic Monocytes/100 WBC (Bld) 7.3 % Invalid Interpretation Code 5.6-10.2 [facility] Comment on above: Order Comment: Relea se to patient->Automatic Neutrophil \P\ 7.46 10E3/???L High 2.43-6.42 [facility] Comment on above: Order Comment: Relea se to patient->Automatic Neutrophils/100 WBC (Bld) 61.1 % Invalid Interpretation Code 46.0-68.6 [facility] Comment on above: Order Comment: Relea se to patient->Automatic Nucleated RBC/100 WBC (Bld) [Ratio] 0.0 % Invalid Interpretation Code 0.0-0.0 [facility] Comment on above: Order Comment: Relea se to patient->Automatic Platelet mean volume (Bld) [Entitic vol] 10.1 fL Invalid Interpretation Code 9.6-11.9 [facility] Comment on above: Order Comment: Relea se to patient->Automatic Platelets 412 10E3/???L High 150-400 [facility] Comment on above: Order Comment: Relea se to patient->Automatic RBC 5.36 10E6/???L High 4.03-4.91 [facility] Comment on above: Order Comment: Relea se to patient->Automatic WBC 12.2 10E3/???L High 4.9-10.0 [facility] Comment on above: Order Comment: Relea se to patient->Automatic COMPREHENSIVE METABOLIC PANE Joni 09-07-2024 Albumin [Mass/Vol] 4.7 g/dL Invalid Interpretation Code 3.5-5.0 [facility] Comment on above: Order Comment: Relea se to patient->Automatic Result Comment: Veri fied By: [id number] ALP [Catalytic activity/Vol] 62 U/L Invalid Interpretation Code 35-104 [facility] Comment on above: Order Comment: Relea se to patient->Automatic Result Comment: Veri fied By: [id number] ALT [Catalytic activity/Vol] 12 U/L Invalid Interpretation Code <=34 [facility] Comment on above: Order Comment: Relea se to patient->Automatic Result Comment: Veri fied By: [id number] AST [Catalytic activity/Vol] 30 U/L Invalid Interpretation Code <=31 [facility] Comment on above: Order Comment: Relea se to patient->Automatic Result Comment: Veri fied By: [id number] BILI,TOTAL 0.7 mg/dL Invalid Interpretation Code <=1.0 [facility] Comment on above: Order Comment: Relea se to patient->Automatic Result Comment: Veri fied By: [id number] Calcium [Mass/Vol] 10.5 mg/dL Invalid Interpretation Code 7.6-11.0 [facility] Comment on above: Order Comment: Relea se to patient->Automatic Result Comment: Veri fied By: [id number] Chloride [Moles/Vol] 102 mmol/L Invalid Interpretation Code 96-108 [facility] Comment on above: Order Comment: Relea se to patient->Automatic Result Comment: Veri fied By: [id number] CO2 [Moles/Vol] 26.1 mmol/L Invalid Interpretation Code 22.0-29.0 [facility] Comment on above: Order Comment: Relea se to patient->Automatic Result Comment: Veri fied By: [id number] Creatinine [Mass/Vol] 0.79 mg/dL Invalid Interpretation Code 0.50-1.00 [facility] Comment on above: Order Comment: Relea se to patient->Automatic Result Comment: Veri fied By: [id number] GFR/1.73 sq M.predicted among non-blacks MDRD (S/P/Bld) [Vol rate/Area] mL/min/{1.73_m2} Invalid Interpretation Code >=60 [facility] Comment on above: Order Comment: Relea se to patient->Automatic Glucose [Mass/Vol] 98 mg/dL Invalid Interpretation Code 70-99 [facility] Comment on above: Order Comment: Relea se to patient->Automatic Result Comment: Duncan roth for Diagnosis of Diabetes: Fasting Specimen (no caloric intake for at least 8 hours): <100 mg/dL Normal 100-125 mg/dL Increased risk for Diabetes >125 mg/dL Diagnostic for Diabetes Random Glucose (any time of day without regard to last meal): > or = 200 mg/dL plus Classic Symptoms of Diabetes Verified By: [id number] Potassium [Moles/Vol] 4.1 mmol/L Invalid Interpretation Code 3.3-5.1 [facility] Comment on above: Order Comment: Relea se to patient->Automatic Result Comment: Veri fied By: [id number] Protein [Mass/Vol] 8.0 g/dL Invalid Interpretation Code 5.9-8.4 [facility] Comment on above: Order Comment: Relea se to patient->Automatic Result Comment: Veri fied By: [id number] Sodium [Moles/Vol] 141 mmol/L Invalid Interpretation Code 133-145 [facility] Comment on above: Order Comment: Relea se to patient->Automatic Result Comment: Veri fied By: [id number] Urea nitrogen [Mass/Vol] 13 mg/dL Invalid Interpretation Code 4-19 [facility] Comment on above: Order Comment: Relea se to patient->Automatic Result Comment: Veri fied By: [id number] Complete Blood Count with Di fferentialOrdered By: Lindy Greer on 09-07-2024 Basophils (Bld) [#/Vol] 0.08 10*3/uL High [facility] Basophils/100 WBC (Bld) 0.7 % 0.3 - 0.9 % [facility] Eosinophils (Bld) [#/Vol] 0.17 10*3/uL [facility] Eosinophils/100 WBC (Bld) 1.4 % 0.6 - 3.8 % [facility] Erythrocyte distribution width (RBC) [Ratio] 12.4 % 11.9 - 14.8 % [facility] Hematocrit (Bld) [Volume fraction] 46.4 % High 35.5 - 44.6 % [facility] Hemoglobin (Bld) [Mass/Vol] 15.1 g/dL High 11.4 - 14.8 g/dL [facility] Immature granulocytes/100 WBC (Bld) 0.3 % 0.2 - 0.5 % [facility] Comment on above: Immature Granulocyte Percent includes promyelocytes, myelocytes,and metamyelocytes. IG% > 1.0 indicates a left shift is present. With automated differentials, bands are included in the neutrophil count and not in the Immature Granulocyte Percent. Interpretation and review of laboratory results Abnormal [facility] Lymphocytes (Bld) [#/Vol] 3.57 10*3/uL High [facility] Lymphocytes/100 WBC (Bld) 29.2 % 21.8 - 42.1 % [facility] MCH (RBC) [Entitic mass] 28.2 pg 25.7 - 31.2 pg [facility] MCHC (RBC) [Mass/Vol] 32.5 % 31.3 - 34.0 % [facility] MCV (RBC) [Entitic vol] 86.6 fL 80.7 - 93.7 fL [facility] Monocytes (Bld) [#/Vol] 0.89 10*3/uL [facility] Monocytes/100 WBC (Bld) 7.3 % 5.6 - 10.2 % [facility] Neutrophils (Bld) [#/Vol] 7.46 10*3/uL [facility] Neutrophils/100 WBC (Bld) 61.1 % 46.0 - 68.6 % [facility] Nucleated RBC/100 WBC (Bld) [Ratio] 0 % 0.0 - 0.0 % [facility] Platelet mean volume (Bld) [Entitic vol] 10.1 fL 9.6 - 11.9 fL [facility] Platelets (Bld) [#/Vol] 412 10*3/uL [facility] RBC (Bld) [#/Vol] 5.36 10*6/uL [facility] WBC (Bld) [#/Vol] 12.2 10*3/uL [facility] Comprehensive metabolic pane l (Lab Collect)on 09-07-2024 Albumin BCG dye [Mass/Vol] 4.7 g/dL 3.5 - 5.0 g/dL [facility] Comment on above: Verified By: [id number] ALP [Catalytic activity/Vol] 62 U/L 35 - 104 U/L [facility] Comment on above: Verified By: [id number] ALT With P-5'-P [Catalytic activity/Vol] 12 U/L [facility] - 34 U/L [facility] Comment on above: Verified By: [id number] AST With P-5'-P [Catalytic activity/Vol] 30 U/L [facility] - 31 U/L [facility] Comment on above: Verified By: [id number] Bilirubin [Mass/Vol] 0.7 mg/dL NINF - 1.0 mg/dL [facility] Comment on above: Verified By: [id number] Calcium [Mass/Vol] 10.5 mg/dL 7.6 - 11. 0 mg/dL [facility] Comment on above: Verified By: [id number] Chloride [Moles/Vol] 102 mmol/L 96 - 108 mmol/L [facility] Comment on above: Verified By: [id number] Creatinine [Mass/Vol] 0.79 mg/dL 0.50 - 1.00 mg/dL [facility] Comment on above: Verified By: [id number] eGFR - PINF [facility] Glucose [Mass/Vol] 98 mg/dL 70 - 99 mg/dL [facility] Comment on above: Criteria for Diagnos is of Diabetes: Fasting Specimen (no caloric intake for at least 8 hours): <100 mg/dL Normal 100-125 mg/dL Increased risk for Diabetes >125 mg/dL Diagnostic for Diabetes Random Glucose (any time of day without regard to last meal): > or = 200 mg/dL plus Classic Symptoms of Diabetes Verified By: [id number] HCO3 (P) [Moles/Vol] 26.1 mmol/L 22.0 - 29.0 mmol/L [facility] Comment on above: Verified By: [id number] Potassium (BldA) [Moles/Vol] 4.1 mmol/L 3.3 - 5.1 mmol/L [facility] Comment on above: Verified By: [id number] Protein [Mass/Vol] 8 g/dL 5.9 - 8.4 g/dL [facility] Comment on above: Verified By: [id number] Sodium [Moles/Vol] 141 mmol/L 133 - 145 mmol/L [facility] Comment on above: Verified By: [id number] Urea nitrogen [Mass/Vol] 13 mg/dL 4 - 19 mg/dL [facility] Comment on above: Verified By: [id number] HEMOGLOBIN A1Con 09-07-2024 HbA1c (Bld) [Mass fraction] 5.5 % Invalid Interpretation Code <=5.6 [facility] Comment on above: Order Comment: Relea se to patient->Automatic Result Comment: Refe rence Interval: <5.7% 5.7-6.4% Prediabetes > or = 6.5% Diabetes Targets for diabetes management: Type I <7.5% Type II <7.0% Hemoglobin A1c (Lab Collect) on 09-07-2024 HbA1c (Bld) [Mass fraction] 5.5 % NINF - 5.6 % [facility] Comment on above: Reference Interval: <5.7% 5.7-6.4% Prediabetes > or = 6.5% Diabetes Targets for diabetes management: Type I <7.5% Type II <7.0% Interpretation and review of laboratory results Normal [facility] IMMUNOGLOBULIN Aon Immunoglobulin A 270 mg/dL Invalid Interpretation Code 61-348 [facility] Comment on above: Order Comment: Relea se to patient->Automatic Immunoglobulin AOrdered By: Background Lab on 09-07-2024 IgA [Mass/Vol] 270 mg/dL 61 - 348 mg/dL [facility] Interpretation and review of laboratory results Normal [facility] No Panel Informationon 09-07 Interpretation and review of laboratory results Normal [facility] PREALBUMINon 09-07-2024 Prealbumin [Mass/Vol] 23 mg/dL Invalid Interpretation Code 20-42 [facility] Comment on above: Order Comment: Relea se to patient->Automatic Prealbuminon 09-07-2024 Interpretation and review of laboratory results Normal [facility] Prealbumin [Mass/Vol] 23 mg/dL 20 - 42 mg/dL [facility] Progress Noteon 09-07-2024 Rn Anesthesiology Authentication Interface Message Text Patient ID: Luis Barajas is a 19 y.o. female. Her chief complaint(s) include: Follow Up (Asthma) Assessment 1. Mild persistent asthma without complication 2. Weight loss 3. Need for vaccination 4. Family history of type 2 diabetes mellitus Plan Luis was seen today for follow up. Diagnoses and associated orders for this visit: Mild persistent asthma without complication - Beclomethasone Diprop (QVAR REDIHALER) 40 MCG/ACT AERB Redihaler; Inhale 2 Puffs into the lungs 2 times daily Weight loss - Immunoglobulin A; Future - Transglutaminase IgA; Future - Complete Blood Count with Differential; Future - C-reactive protein (Lab Collect); Future - Comprehensive metabolic panel (Lab Collect); Future - TSH with Reflex to T4, Free (Lab Collect); Future - Prealbumin; Future Need for vaccination - Influenza Vaccine 0.5 mL >= 6mo Trivalent (PF) Family history of type 2 diabetes mellitus - Hemoglobin A1c (Lab Collect); Future Return for Well Visit and as needed. Check CXR at [facility] Normal chest xray Reviewed asthma plan and ATP Discussed weight loss. Seems nauseous when eating. Unclear etiology. Normal exam. Should be followed. Recommend baseline labs. Subjective HPI Comments: Here for asthma recheck. Cough better. No more thick sputum production. Does understand when to use QVAR and when to use albuterol. Discussed weight loss. Does not seem intentional. Does complain of nausea after eating. She is accompanied by her mother. Independent history obtained from mother. Follow Up Primary Care Review of Systems Objective Vital Signs 09/07/24 0928 Temp: 36.8 C (98.3 F) TempSrc: Temporal Weight: 56 kg There is no height or weight on file to calculate BMI. Physical Exam Constitutional: She appears well. She is active. No distress. HENT: Head: Atraumatic. Ears: Right Ear: Tympanic membrane normal. Left Ear: Tympanic membrane normal. Mouth/Throat: Mucous membranes are moist. Cardiovascular: Normal rate and regular rhythm. Heart murmur not heard. Pulmonary/Chest: Breath sounds normal. There is normal air entry. She has no wheezes. Abdominal: She exhibits no distension. There is no hepatosplenomegaly. There is no abdominal tenderness. Neurological: She is alert. Normal [facility] TRANSGLUTAMINASE IGAon 09-07 Transglutaminase IgA 1.69 U/mL Invalid Interpretation Code <=8.99 [facility] Comment on above: Order Comment: Inter pretation of Results: Negative: <9.0 AU/mL Equivocal: 9.0-16.0 AU/mL Positive: >16.0 AU/mL Method: The anti-tTG antibodies were determined using an FRANKY-based commercially available kit ([facility] Release to patient->Automatic TSH WITH REFLEX TO T4, FREEo n 09-07-2024 TSH 1.030 ???IU/mL Invalid Interpretation Code 0.500-4.300 [facility] Comment on above: Order Comment: Relea se to patient->Automatic TSH with Reflex to T4, Free (Lab Collect)on 09-07-2024 Interpretation and review of laboratory results Normal [facility] TSH Qn 1.03 m[IU]/L [facility] Chest PA and Lateralon 08-29 Chest PA and Lateral [facility] [address] [place] [address] Chest PA and Lateral MR#: [id number] Acct: [id number] Name: LUIS BARAJAS Rep #: [id number] : 2005 F 19 From: Jennie dutta MD PCP: Dr. Mitzy Fung MD Status: REG CLI Study: Chest PA and Lateral Date of Exam: 08/29/24 Exam# [id number] Ordering Dr: Lois Conde MD -[id number] HISTORY: PNEUMONIA. TECHNIQUE: XR Chest 2 Views. COMPARISON: 2024. FINDINGS: CARDIOMEDIASTINAL BORDERS: Cardiac silhouette within normal limits in size. Mediastinal contour unremarkable. LUNGS: Radiographically clear. PLEURA: No pleural effusion or pneumothorax seen. OSSEOUS STRUCTURES: Unremarkable. RAD/Chest PA and Lateral IMPRESSION: No acute cardiopulmonary process identified. Electronically Signed: Jennie Garcia MD at 10:06 EST , CC: Dr. Mitzy Fung MD; Dr. Lois Conde MD Central Lab Technician: Signed [facility] Progress Noteon 08-29-2024 Rn Anesthesiology Authentication Interface Message Text Patient ID: Luis Barajas is a 19 y.o. female. Her chief complaint(s) include: Sick Child (Cough/congestion) Assessment 1. Community acquired pneumonia of left lung, unspecified part of lung 2. Mild persistent asthma without complication Plan Luis was seen today for sick child. Diagnoses and associated orders for this visit: Community acquired pneumonia of left lung, unspecified part of lung - X-Ray Chest Pa(ap) & Lateral; Future Mild persistent asthma without complication - albuterol 108 (90 Base) MCG/ACT inhaler; Inhale 2 Puffs into the lungs every 4 hours as needed for Wheezing or Shortness of Breath - X-Ray Chest Pa(ap) & Lateral; Future Recheck asthma treatment plan with Nicholas or True in 1 week. Some confusion about when to use QVAR vs albuterol. Reviewed today but need to continue to review. Subjective HPI Comments: Clindamycin, prednisone, and albuterol (nebs) 2 days ago Coughing mucous plugs raw meat yesterday Sick since last week. Sore throat, ear pain. +congestion, cough She is accompanied by her mother. Independent history obtained from mother. Primary Care Review of Systems Objective Vital Signs 08/29/24 1559 Temp: 36.8 C (98.3 F) TempSrc: Temporal Weight: 56.2 kg Height: 165 cm Body mass index is 20.64 kg/m . Physical Exam Constitutional: She appears well. She is active. No distress. HENT: Head: Atraumatic. Ears: Right Ear: Tympanic membrane normal. Left Ear: Tympanic membrane normal. Mouth/Throat: Mucous membranes are moist. Cardiovascular: Normal rate and regular rhythm. Heart murmur not heard. Pulmonary/Chest: Breath sounds normal. There is normal air entry. No respiratory distress. She has no rhonchi. Neurological: She is alert. Normal [facility] CNOVon 08-27-2024 CNOV Office Visit ([facility]) ---- LUIS BARAJAS ([id number]) 5 F Date Time Provider Department 08/27/24 11:45 AM JASMIN ENRIQUEZ [facility] During your visit today, we recorded the following information about you: Temperature Pulse Respiration Blood pressure 98.4 degrees 106/minute 20/minute 110/78 Weight 57.1 kg Jasmin Enriquez APRN.CNP 08/27/2024 12:30 PM Addendum ASSESSMENT/PLAN: 1. Sore throat - ICD9: 462, ICD10: J02.9 (primary diagnosis) - Group A strep molecular testing negative - Discussed supportive care treatment with fluids, rest and analgesia. - STREP A MOLECULAR (POC) 2. Pharyngitis, unspecified etiology - ICD9: 462, ICD10: J02.9 - CLINDAMYCIN HCL 300 MG CAPSULE - follow up with ENT 3. Wheezing - ICD9: 786.07, ICD10: R06.2 - ALBUTEROL SULFATE 2.5 MG/3 ML (0.083 %) SOLUTION FOR NEBULIZATION - prednisone as prescribed. 4. Viral URI with cough - ICD9: 465.9, ICD10: J06.9 - Discussed viral etiology and rationale for treatment. - Symptomatic treatment with prn analgesia - Supportive care with fluids and rest - COVID AND INFLUENZA A/B AND RSV PCR, ROUTINE 5. Bronchitis - ICD9: 490, ICD10: J40 - nebulizer for home use. - ALBUTEROL SULFATE 2.5 MG/3 ML (0.083 %) SOLUTION FOR NEBULIZATION - Follow-up with your PCP in 3-5 days if symptoms have not improved or sooner if symptoms worsen - Discussed red flags and need for immediate medical evaluation if any occur. - Discussed supportive care treatment with fluids, rest and analgesia. - Discussed expected course of illness Jasmin Enriquez APRN.SOIL EXPERT Previous hospitalization care team: Attending Provider: Ernestina Lanza MD (attending for admission) Consulting: Tirso Richey MD (ENT) Consulting: Jason Uriostegui MD (infectious disease) Jasmin Enriquez APRN.SOIL EXPERT 08/27/2024 12:30 PM Signed Subjective Ear Pain Associated symptoms include congestion, coughing, headaches and a sore throat. Pertinent negatives include no chest pain, chills, fever, myalgias, nausea or vomiting. Luis Barajas is a 19 year old female who presents with sore throat, chest congestion, headache, wheezing for past 2 weeks. She has had bilateral ear pain for the past 2 days. She was hospitalized in April with peritonsillar abscess and her mother states symptoms now are consistent with that episode. She has a history of tonsil stones and wants to get her tonsils out. ENT doctor from hospitalization said he would do the surgery for her if her symptoms return. She has not had a fever. Her chest hurts when she breaths and she has been hearing wheezing. She has been using her inhaler but it does not seem to help. Review of Systems Constitutional: Negative for chills, fever and malaise/fatigue. HENT: Positive for congestion, ear pain and sore throat. Respiratory: Positive for cough, sputum production, shortness of breath and wheezing. Cardiovascular: Negative for chest pain. Gastrointestinal: Negative for diarrhea, nausea and vomiting. Musculoskeletal: Negative for myalgias. Neurological: Positive for headaches. BP 110/78 Pulse 106 Temp 36.9 ?C (98.4 ?F) (Tympanic) Resp 20 Wt 57.1 kg (125 lb 14.1 oz) LMP 12/24/2023 (Exact Date) SpO2 97% BMI 21.08 kg/m? History reviewed. No pertinent past medical history. No past surgical history on file. ALLERGIES Grass Pollen and Penicillins MEDICATIONS loratadine (CLARITIN) 10 mg tablet D-MANNOSE ORAL Take 2,000 mg by mouth. VITAMIN C 500 mg tablet L. acidophilus-L. salivarius-B. bifidum-S. thermophilus (ACIDOPHILUS PROBIOTIC BLEND) 175 mg capsule SENEXON-S 8.6-50 mg per tablet cabergoline (DOSTINEX) 0.5 mg tablet 0.5 mg every Thursday and Thursday. Inserted vaginally HS Cholecalciferol, Vitamin D3, 25 mcg (1,000 unit) cap Take 5,000 Units by mouth once daily. metFORMIN ER (GLUCOPHAGE XR) 500 mg 24 hr tablet Take 1,000 mg by mouth two times a day. loratadine (CLARITIN ORAL) Take by mouth. melatonin 1 mg tablet Take by mouth. clindamycin (CLEOCIN) 300 mg capsule Take 1 capsule by mouth three times a day for 7 days. albuterol (PROVENTIL) 2.5 mg /3 mL (0.083 %) nebulizer solution Use 3 mL via nebulizer every 4 hours as needed. Use over 5-15minutes. FLOVENT HFA 44 mcg/actuation inhaler (Patient not taking: Reported on 12/29/2023) ibuprofen (MOTRIN) 600 mg tablet Take 1 tablet by mouth every 6 hours as needed for Pain. (Patient not taking: Reported on 12/29/2023) PULMICORT 0.5 MG/2 ML NEB SOLUTION use 1-2X daily (Patient not taking: Reported on 11/14/2023) ACCUNEB 0.63 MG/3 ML SOLN FOR INHALATION 1-4X daily (Patient not taking: Reported on 11/14/2023) FAMILY HISTORY Problem Relation Age of Onset Diabetes Maternal Aunt Diabetes Maternal Uncle Asthma Maternal Grandmother Asthma Maternal Uncle Social History Tobacco Use Smoking status: Never Passive e (more content not included)... Normal [facility] COVID AND INFLUENZA A/B AND RSV PCR, ROUTINEon 08-27-2024 SARS-CoV-2 (COVID-19) RNA JAIRON+probe Ql (Unsp spec) SARS-COV-2 (AGENT OF COVID-19) RNA: Not detected INFLUENZA A RNA: Not detected INFLUENZA B RNA: Not detected RESPIRATORY SYNCYTIAL VIRUS (RSV) RNA: Not detected Normal [facility] Comment on above: Performed By: #### C VFLRS ####[facility] LABCLIA [id number] [place] [address] [place] STREP A MOLECULAR (POC)on Procedural Control Valid [facility] Strep A (POCT) Negative Negative [facility] Urine Cultureon 06-17-2024 [facility] Escherichia coli Cameron Count 50,000-80,000 Escherichia coli: REACTION Ampicillin Islt RYLAND 4 Ampicillin+Sulbac Islt RYLAND <=2 S ceFAZolin Islt RYLAND <=4 S Cefepime Islt RYLAND <=0.12 S cefTRIAXone Islt RYLAND <=0.25 S Ciprofloxacin Islt RYLAND <=0.25 S B-Lactamase Extended Susc Islt NEG Gentamicin Islt RYLAND <=1 S Imipenem Islt RYLAND <=0.25 S levoFLOXacin Islt RYLAND <=0.12 S Nitrofurantoin Islt RYLAND <=16 S Pip+Tazo Islt RYLAND <=4 S Tobramycin Islt RYLAND <=1 S TMP SMX Islt RYLAND <=20 S Normal [facility] Comment on above: Performed By: #### M [id number] ####[facility] [id number] [place], [address] CNDSon 04-26-2024 CNDS HNO ID: [id number] Author: ERNESTINA LANZA MD Service: Hospital Medicine Author Type: Physician Type: Discharge Summary Filed: 04/26/2024 08:34 Note Text: DISCHARGE SUMMARY PATIENT NAME: Luis Barajas ADMISSION DATE: 04/24/2024 DISCHARGE DATE: 04/26/2024 Attending Physician: Ernestina Lanza MD Code Status: Full Code Highest Readmission Risk Score: 12 The 30 day readmissions risk score is derived from an internally validated risk model which evaluates patient level characteristics, utilization history, medication orders and lab results up until the day of discharge. Patients with a score of 40 or above are considered highest risk for readmission. Specific patient level drivers will be listed at the bottom of the summary. Reason for Hospitalization: concerns of 2 cm right peritonsillar abscess. Hospital Course: 19 year old female with a past medical history of ADHD, PCOS, asthma, URIEL. Patient was transferred from [facility] hospital today for concerns of 2 cm right peritonsillar abscess. Patient started on IV clindamycin 600 mg every 8hrs, with IV Decadron milligrams every 6hrs. ENT consulted and they think it is phlegmon secondary to dental extraction mended IV steroid along with IV antibiotic Right peritonsillar abscess Status post dental extraction approximately 1 week prior Previously treated with Keflex and cefdinir due to concerns of infection Patient started having sore throat associated with dysphagia At the [facility] CT neck with IV contrast showing 2 cm right peritonsillar abscess -ENT consulted and they think it is phlegmon secondary to dental extraction mended IV steroid along with IV antibiotic recommended keeping in the hospital for 1 more day of IV antibiotics and if to continue to improve then can discharge home -ID recommended IV clindamycin _Patient has dramatic improvement. Patient will be discharged on p.o. clindamycin 300 mg 3 times daily for 7 days along with Medrol Dosepak to follow-up with dentist as an outpatient. Other chronic comorbids: Home meds reconciled as appropriate ADHD Asthma PCOS URIEL Consulting Teams During Hospitalization: Infectious disease, ENT Treatment Team: Attending Provider: Ernestina Lanza MD Consulting: Tirso Richey MD Consulting: Jason Uriostegui MD Attending: MR ZAC GARRIDO Patient Condition @ Discharge: Stable Discharge Disposition: Home with Self Care Modification to Baseline: Mentation: AAOx3 Oxygen: No Device (Cardiac): No Fistula: No Lines: No Neck: Negative hepatojugular reflux or jugular venous distention, negative carotid bruit. Throat: Minimal erythema on bilateral tonsils. Lungs: Clear to auscultation, no wheezing, rales, or rhonchi. Cardiac: Regular rhythm and rate, S1-S2 within normal limits, no murmurs, gallops were appreciated, no rubs. Abdomen: Soft, nontender, nondistended, no HSM detected, bowel sounds are active. Extremities: [No edema, cyanosis, or clubbing. Skin: No rashes or breakdown. Musculoskeletal: normal MS exam, moves all extremities, DTR's normal Lymphatic: Negative cervical, supra-clavicular, groin lymphadenopathy. Neurologic: Cranial nerves from II-XII intact grossly, no focal deficits. Psychiatry: Normal affect Information Provided to Patient: Follow-up with dentist DIET: Resume pre-hospital diet ACTIVITY: Resume pre-hospital activity WOUND/SURGICAL SITE CARE: None ALLERGIES Allergen Reactions Grass Pollen Unknown Penicillins Unknown Discharge Medications: Medication List START taking these medications clindamycin 300 mg capsule Commonly known as: CLEOCIN Take 1 capsule by mouth every 8 hours for 7 days. methylPREDNISolone 4 mg Dose-Pack Commonly known as: MEDROL (MORENA) As instructed per package CONTINUE taking these medications ACIDOPHILUS PROBIOTIC BLEND 175 mg capsule Generic drug: lactobacillus acidophilus - lactobacillus salivarius - bifidobacterim bifidum - streptococcus thermophilus cabergoline 0.5 mg tablet Commonly known as: DOSTINEX Cholecalciferol (Vitamin D3) 25 mcg (1,000 unit) Cap * CLARITIN ORAL * loratadine 10 mg tablet Commonly known as: CLARITIN D-MANNOSE ORAL melatonin 1 mg tablet metFORMIN ER 500 mg 24 hr tablet Commonly known as: GLUCOPHAGE XR SENEXON-S 8.6-50 mg per tablet Generic drug: senna-docusate VITAMIN C 500 mg tablet Generic drug: ascorbic acid (vitamin C) * This list has 2 medication(s) that are the same as other medications prescribed for you. Read the directions carefully, and ask your doctor or other care provider to review them with you. ASK your doctor about these medications * ACCUNEB 0.63 mg/3 mL nebulizer solution Generic drug: Albuterol Sulfate 1-4X daily * albuterol HFA 90 mcg/actuation inhaler Commonly known as: PROVENTIL HFA, VENTOLIN HFA FLOVENT HFA 44 mcg/actuation inhaler Generic drug: fluticasone ibuprofen 600 mg tablet Commo (more content not included)... [facility] CONSULTon 04-25-2024 CONSULT HNO ID: [id number] Author: JASON URIOSTEGUI MD Service: Infectious Disease Author Type: Physician Type: Consults Filed: 04/25/2024 10:49 Note Text: INFECTIOUS DISEASE INITIAL CONSULT NOTE SERVICE DATE: 04/25/2024 SERVICE TIME: 10:44 AM REASON FOR CONSULT: Right peritonsillar abscess Subjective Patient is seen at the request of Ernestina Escamilla MD for my opinion regarding right peritonsillar abscess. My final recommendations will be communicated back to the requesting physician by way of copy of this note or shared electronic medical record. HPI: Luis Barajas who is a 19 year old female recent dental work with extractions of the right side roughly 10 days ago and then developed increased swelling and pain of the right side of her tonsils complain and difficult taking p.o. intake. No documented fevers. Patient was on oral amoxicillin by her dentist over the weekend well. Was given an oral cephalosporin by industrial aerial installer late last week. States that feeling better over the last 24 hours. Currently on parenteral clindamycin plus dexamethasone. Patient is able to take p.o. intake this morning. No past medical history on file. No past surgical history on file. Social History Tobacco Use Smoking status: Never Passive exposure: Yes Smokeless tobacco: Never Vaping Use Vaping status: Never Used FAMILY HISTORY Problem Relation Age of Onset Diabetes Maternal Aunt Diabetes Maternal Uncle Asthma Maternal Grandmother Asthma Maternal Uncle Immunization History Administered Date(s) Administered COVID-19 original vaccine, age 12+ yr, monovalent (Bag Borrow or [employer] - PURPLE TOP) 04/30/2021 05/22/2021 Haemophilus influenzae b (HbOC) vaccine, 4-dose series (HIBTITER) 06/08/2006 diphtheria tetanus pertussis (DTaP) vaccine, pediatric (INFANRIX) 11/26/2006 measles mumps rubella (MMR) vaccine (M-M-R II, PRIORIX) 06/08/2006 pneumococcal (PCV7) vaccine, 7 valent (PREVNAR 7) 06/08/2006 11/26/2006 varicella (RAY) vaccine (VARIVAX) 11/26/2006 Current Facility-Administer ed Medications Medication Dose Route Frequency melatonin 3 mg tab(s) 3 mg ORAL DAILY (8 PM) cholecalciferol 5,000 Units tab(s) (VITAMIN D3) 5,000 Units ORAL DAILY NaCl 0.9% iv flush bag 20 mL INTRAVENOUS PRN ondansetron 4 mg tab(s) (ZOFRAN) 4 mg ORAL q 6 H PRN Or ondansetron (PF) 4 mg injection (ZOFRAN) 4 mg INTRAVENOUS q 6 H PRN acetaminophen 650 mg tab(s) (TYLENOL) 650 mg ORAL q 6 H PRN clindamycin iv piggyback 600 mg in D5W 50 mL (CLEOCIN) 600 mg INTRAVENOUS q 8 H dexAMETHasone sodium phosphate 8 mg injection (DECADRON) 8 mg INTRAVENOUS q 6 H Active Antimicrobials (From admission, onward) Start Stop 04/24/24 1130 clindamycin iv piggyback 600 mg in D5W 50 mL (CLEOCIN) 600 mg, INTRAVENOUS, EVERY 8 HOURS -- ALLERGIES Allergen Reactions Grass Pollen Unknown Penicillins Unknown REVIEW OF SYSTEMS: See HPI As stated in the history of present illness others negative Objective PHYSICAL EXAM: BP 126/78 Pulse 77 Temp (Src) 97.7 (Oral) Resp 21 Ht 5' 4.8 (1.65m) Wt 117 lb 4.6 oz (53.2kg) SpO2 97% LMP 12/24/2023 BMI 19.64 kg/(m2). O2 Therapy: Room Air Alert. Does not appear no significant cervical lymphadenopathy appreciated oral mucosa moist right Peritonsillar swelling; heart exam S1-S2 abdomen soft Lines, Drains, and Airways Line Duration Peripheral 04/24/24 0927 External Facility Right Antecubital 20 Gauge 1 day DATA: Diagnostic tests reviewed for today's visit: CBC, Coags, BMP, Mg, Phos Recent Labs 04/24/24 1053 WBC 13.20* HB 12.2 HCT 36.0 PLT 391 NA 140 K 4.1 CHLOR 108* CO2 23 BUN 15 CREAT 0.61 GLUC 120* CA 10.3 MG 2.2 P 3.8 Liver Function, Amylase, AND Lipase Recent Labs 04/24/24 1053 TPROT 8.1 ALB 4.0 ALT 8* AST 19 ALKPHOS 72 TBILI 0.5 Impression/Recommen dations Luis Barajas is a 19 year old female right peritonsillar infection clinically improving on parenteral clindamycin. Continue current management with parenteral clindamycin Please feel free to call or page us with concerns or questions. Thank you for allowing us to partake in the care of your patient. SIGNATURE: Jason Uriostegui MD PATIENT NAME: Luis Barajas DATE: April 25, 2024 TIME: 10:44 AM Normal [facility] Basic Metabolic Panelon 09-0 Anion gap [Moles/Vol] 7 mmol/L Normal 4-14 [facility] ([place]) Comment on above: Performed By: #### B MP #### [facility] [address] [place] [address] Calcium [Mass/Vol] 9.1 mg/dL Normal 8.5-10.5 [facility] ([place]) Comment on above: Performed By: #### B MP #### [facility] [address] [place] [address] Chloride [Moles/Vol] 106 mmol/L Normal 98-107 [facility] ([place]) Comment on above: Performed By: #### B MP #### [facility] [address] [place] [address] CO2 [Moles/Vol] 25 mmol/L Normal 21-31 [facility] ([place] Comment on above: Performed By: #### B MP #### [facility] [address] [place] [address] Creatinine [Moles/Vol] 0.61 mg/dL Normal 0.60-1.20 [facility] ([place]) Comment on above: Performed By: #### B MP #### [facility] [address] [place] [address] Creatinine and Glomerular filtration rate.predicted panel (S/P/Bld) 153 mL/min Normal >60 [facility] ([place]) Comment on above: Performed By: #### B MP #### [facility] [address] [place] [address] GFR/1.73 sq M.predicted among non-blacks MDRD (S/P/Bld) [Vol rate/Area] 126 mL/min/{1.73_m2} Normal >60 [facility] ([place]) Comment on above: Performed By: #### B MP #### [facility] [address] [place] [address] Glucose [Mass/Vol] 91 mg/dL Normal 70-99 [facility] ([place]) Comment on above: Performed By: #### B MP #### [facility] [address] [place] [address] Potassium [Moles/Vol] 3.7 mmol/L Normal 3.6-5.0 [facility] ([place]) Comment on above: Performed By: #### B MP #### [facility] [address] [place] [address] Sodium [Moles/Vol] 138 mmol/L Normal 135-145 [facility] ([place] Comment on above: Performed By: #### B MP #### [facility] [address] [place] [address] Urea nitrogen [Mass/Vol] 12 mg/dL Normal 7-25 [facility] ([place] Comment on above: Performed By: #### B MP #### [facility] [address] [place] [address] CBC W Auto Differential pane l (Bld)on 04-24-2024 Basophils (Bld) [#/Vol] 0.1 10*3/uL Normal 0.00-0.20 [facility] ([place]) Comment on above: Performed By: #### 5 7021-8 #### [facility] [address] [place] [address] Basophils/100 WBC (Bld) 0.8 % Normal 0.0-1.5 [facility] ([place]) Comment on above: Performed By: #### 5 7021-8 #### [address] [address] Eosinophils (Bld) [#/Vol] 0.0 10*3/uL Normal 0.00-0.33 [facility] ([place]) Comment on above: Performed By: #### 5 7021-8 #### [address] [address] Eosinophils/100 WBC (Bld) 0.3 % Normal 0.0-3.0 [facility] [facility] [place] Comment on above: Performed By: #### 5 7021-8 #### [facility] [address] [place] [address] Erythrocyte distribution width (RBC) [Ratio] 11.9 % Normal 10.9-14.3 [facility] [place] Comment on above: Performed By: #### 5 7021-8 #### [facility] [address] [place] [address] Hematocrit (Bld) [Volume fraction] 31.8 % Low 36.0-44.0 [facility] [place] Comment on above: Performed By: #### 5 7021-8 #### [address] [address] Hemoglobin (Bld) [Mass/Vol] 10.8 g/dL Low 12.0-15.0 [facility] [place] Comment on above: Performed By: #### 5 7021-8 #### [facility] [address] [place] [address] Lymphocytes Auto (Unsp spec) [#/Vol] 1.9 10*3/uL Normal 1.10-4.80 [facility] [place] Comment on above: Performed By: #### 5 7021-8 #### [facility] [address] [place] [address] Lymphocytes/100 WBC (Bld) 13.2 % Low 24.0-44.0 [facility] [place] Comment on above: Performed By: #### 5 7021-8 #### [facility] [address] [place] [address] MCH (RBC) [Entitic mass] 29.1 pg Normal 28.0-34.0 [facility] [place] Comment on above: Performed By: #### 5 7021-8 #### [facility] [address] [place] [address] MCHC (RBC) [Mass/Vol] 34.1 g/dL Normal 33.0-37.0 [facility] [place] Comment on above: Performed By: #### 5 7021-8 #### [facility] [address] [place] [address] MCV (RBC) [Entitic vol] 85.2 fL Normal 80.0-100.0 [facility] ([place] Comment on above: Performed By: #### 5 7021-8 #### [facility] [address] [place] [address] Monocytes (Bld) [#/Vol] 1.2 10*3/uL High 0.20-0.70 [facility] [place] Comment on above: Performed By: #### 5 7021-8 #### [address] [address] Monocytes/100 WBC (Bld) 8.2 % Normal 3.4-9.0 [facility] [place] Comment on above: Performed By: #### 5 7021-8 #### [address] [address] Neutrophils (Bld) [#/Vol] 11.2 10*3/uL High 1.83-8.70 [facility] [place] Comment on above: Performed By: #### 5 7021-8 #### [facility] [address] [place] [address] Neutrophils/100 WBC (Bld) 77.5 % High 40.0-74.0 [facility] [place] Comment on above: Performed By: #### 5 7021-8 #### [address] [address] Platelet mean volume (Bld) [Entitic vol] 8.0 fL Normal 7.4-10.4 [facility] [place] Comment on above: Performed By: #### 5 7021-8 #### [address] [address] Platelets (Bld) [#/Vol] 350 10*3/uL Normal 150-450 [facility] [place] Comment on above: Performed By: #### 5 7021-8 #### [address] [address] RBC (Bld) [#/Vol] 3.73 10*6/uL Low 4.00-4.90 [facility] [place] Comment on above: Performed By: #### 5 7021-8 #### [address] [address] WBC (Bld) [#/Vol] 14.4 10*3/uL High 4.5-11.0 [facility] [place] Comment on above: Performed By: #### 5 7021-8 #### [address] [place] [address] CBC panel Auto (Bld)on 04-24 Erythrocyte distribution width (RBC) [Ratio] 11.3 % Low 11.5-15.0 [facility] Comment on above: Order Comment: Speci men Type: BLOOD SPECIMEN Ordering Facility: [facility] Address: [address] [place] [address] Performed By: #### 5 8410-2 #### [facility] CLIA [id number] [address] [place] [address] [place] Hematocrit (Bld) [Volume fraction] 36.0 % Normal 36.0-46.0 [facility] Comment on above: Order Comment: Speci men Type: BLOOD SPECIMEN Ordering Facility: [facility] Address: [address] [place] [address] Performed By: #### 5 8410-2 #### [facility] CLIA [id number] [address] [place] [address] [place] Hemoglobin (Bld) [Mass/Vol] 12.2 g/dL Normal 11.5-15.5 [facility] Comment on above: Order Comment: Speci men Type: BLOOD SPECIMEN Ordering Facility: [facility] Address: [address] [place] [address] Performed By: #### 5 8410-2 #### [facility] CLIA [id number] [address] [place] [address] [place] MCH (RBC) [Entitic mass] 29.3 pg Normal 26.0-34.0 [facility] Comment on above: Order Comment: Speci men Type: BLOOD SPECIMEN Ordering Facility: [facility] Address: [address] [place] [address] Performed By: #### 5 8410-2 #### [facility] CLIA [id number] [address] [place] [address] [place] MCHC (RBC) [Mass/Vol] 33.9 g/dL Normal 30.5-36.0 [facility] Comment on above: Order Comment: Speci men Type: BLOOD SPECIMEN Ordering Facility: [facility] Address: [address] [place] [address] Performed By: #### 5 8410-2 #### [facility] CLIA [id number] [address] [place] [address] [place] MCV (RBC) [Entitic vol] 86.3 fL Normal 80.0-100.[address] [facility] Comment on above: Order Comment: Speci men Type: BLOOD SPECIMEN Ordering Facility: [facility] Address: [address] [place] [address] Performed By: #### 5 8410-2 #### [facility] CLIA [id number] [address] [place] [address] [place] Nucleated RBC (Bld) [#/Vol] 10*3/uL Normal <0.01 [facility] Comment on above: Order Comment: Speci men Type: BLOOD SPECIMEN Ordering Facility: [facility] Address: [address] [place] [address] Performed By: #### 5 8410-2 #### [facility] CLIA [id number] [address] [place] [address] [place] Platelet mean volume (Bld) [Entitic vol] 9.7 fL Normal 9.0-12.7 [facility] Comment on above: Order Comment: Speci men Type: BLOOD SPECIMEN Ordering Facility: [facility] Address: [address] [place] [address] Performed By: #### 5 8410-2 #### [facility] CLIA [id number] [address] [place] [address] [place] Platelets (Bld) [#/Vol] 391 10*3/uL Normal 150-400 [facility] Comment on above: Order Comment: Speci men Type: BLOOD SPECIMEN Ordering Facility: [facility] Address: [address] [place] [address] Performed By: #### 5 8410-2 #### [facility] CLIA [id number] [address] [place] [address] [place] RBC (Bld) [#/Vol] 4.17 10*6/uL Normal 3.90-5.20 [facility] Comment on above: Order Comment: Speci men Type: BLOOD SPECIMEN Ordering Facility: [facility] Address: [address] [place], [place] [address] Performed By: #### 5 8410-2 #### [facility] CLIA [id number] [address] [place] [address] WBC (Bld) [#/Vol] 13.20 10*3/uL High 3.70-11.00 [facility] Comment on above: Order Comment: Speci men Type: BLOOD SPECIMEN Ordering Facility: [facility] Address: [address] [place] [address] Performed By: #### 5 8410-2 #### [facility] CLIA [id number] [address] [place], [place] [address] [facility] CONSULTon 04-24-2024 CONSULT HNO ID: [id number] Author: TIRSO RICHEY MD Service: Otolaryngology Author Type: Physician Type: Consults Filed: 04/24/2024 14:50 Note Text: 04/24/2024 This 19-year-old patient was transferred from [facility] for management of a right peritonsillar abscess. She complains of sore throat for the last 3 days following dental extraction procedures on the right side of her mouth. She does have a history of frequent tonsil stones but no frequent strep positive infections. She was evaluated by her local ENT in [place] who told her she was not a candidate for tonsillectomy due to the infrequency of her strep positive infections. She was given some oral antibiotics at [facility] without improvement. Her evaluation here shows that she is afebrile, white blood cell count 13,200. There is a CT scan that was transferred from [facility] which shows asymmetric swelling of the right versus the left tonsil and some streaky phlegmon type changes but no discrete abscess that I can see. The quality of the scan is suboptimal. On physical exam, the patient is alert and cooperative. No muffled voice, stridor, tachypnea. No trismus, no uvula shift. The tonsils are small bilaterally. There is erythema and edema of the right soft palate and it appears to be indirect continuity with the molar extraction site on her upper maxillary gum. I believe that this is a phlegmon secondary to her dental extraction rather than a true peritonsillar abscess. I recommend IV antibiotics and steroids and reassess in 12 to 24 hours. If there is no significant improvement, she might be a candidate for an attempt at incision and drainage to see if there is any purulent fluid present. Unfortunately, we have no dental consultants at this hospital currently to better assess the status of that extraction site. Tirso Richey MD [facility] CT soft tissue neck wo/w con on 04-24-2024 CT soft tissue neck wo/w con [facility] [address] [place] [address] CT Scan Report Signed Patient: LUIS BARAJAS MR#: [id number] : 2005 Acct:[id number] Age/Sex: 19 / F Admit Date: 04/23/24 Loc: ER Attending Dr: Ordering Physician: Natanael Hyde MD Date of Service: 04/24/24 Procedure(s): CT soft tissue neck wo/w con Accession Number(s): [id number] cc: Natanael Hyde MD INDICATION: Right tonsillar pillar mass. Additional History: Recent dental work with antibiotic usage. Anxiety. TECHNIQUE: CT of the soft tissues of the neck was performed without and with intravenous contrast. 70 mL Isovue-300 was administered intravenously. Automated mA/kV exposure control was utilized and patient examination was performed in strict accordance with principles of ALARA. RADIATION AMOUNT: 716 mGy-cm. COMPARISON: None. FINDINGS: There is enlargement of the right palatine tonsil with central low attenuation measuring 2 cm are consistent with peritonsillar abscess. There is no discrete neck mass or abnormal calcification. Soft tissue and fat planes of the neck are well preserved. There is mild enlargement of the cervical lymph nodes more prominent on the right side suggesting reactive lymphoid hyperplasia. Submandibular, parotid, and thyroid glands are unremarkable. The airway is patent and symmetric throughout. There are no suspicious bony lesions. The visualized intracranial portions and lung apices are within normal limits. The visualized paranasal sinuses and mastoid air cells are clear. IMPRESSION: 2 cm right peritonsillar abscess. Signed by Ara Burton MD Dictated By: Ara Burton DD/ 8 Signed By: Ara Burton 04/24/24348 Central Lab Technician: DELGADO 04/24/24348 Normal [facility] ([place]) Comprehensive metabolic 2000 panelon 04-24-2024 Albumin [Mass/Vol] 4.0 g/dL Normal 3.2-5.0 [facility] Comment on above: Order Comment: Speci men Type: BLOOD SPECIMEN Ordering Facility: [facility] Address: [address] [place] [address] Performed By: #### 2 4323-8, 32972-3, 2777-1 #### [facility] CLIA [id number] [address] [place] [address] [place] ALP [Catalytic activity/Vol] 72 U/L Normal 45-117 [facility] Comment on above: Order Comment: Ryan spain Type: BLOOD SPECIMEN Ordering Facility: [facility] Address: [address] [place] [address] Performed By: #### 2 4323-8, 02938-2, 2777- #### [facility] CLIA [id number] [address] [place] [address] [place] ALT [Catalytic activity/Vol] 8 U/L Low 13-61 [facility] Comment on above: Order Comment: Ryan spain Type: BLOOD SPECIMEN Ordering Facility: [facility] Address: [address] [place] [address] Result Comment: Resu lts may be falsely depressed after the administration of Sulfasalazine and/or Sulfapyridine. Performed By: #### 2 4323-8, 78989-0, 2777-1 #### [facility] CLIA [id number] [address] [place], [place] [address] [place] Anion gap [Moles/Vol] 9 mmol/L Normal 5-16 [facility] Comment on above: Order Comment: Maria Ci grabiel Type: BLOOD SPECIMEN Ordering Facility: [facility] Address: [address] [place], [place] [address] Performed By: #### 2 4323-8, 95808-1, 2776-08 #### [facility] CLIA [id number] [address] [place], [place] [address] [place] AST [Catalytic activity/Vol] 19 U/L Normal 8-34 [facility] Comment on above: Order Comment: Speci men Type: BLOOD SPECIMEN Ordering Facility: [facility] Address: [address] [place] [address] Result Comment: Resu lts may be falsely depressed after the administration of Sulfasalazine and/or Sulfapyridine. Performed By: #### 2 4323-8, , 2776-08 #### [facility] CLIA [id number] [address] [place] [address] [place] Bilirubin [Mass/Vol] 0.5 mg/dL Normal 0.2-1.0 [facility] Comment on above: Order Comment: Speci men Type: BLOOD SPECIMEN Ordering Facility: [facility] Address: [address] [place], [place] [address] Performed By: #### 2 4323-8, , 2776-08 #### [facility] CLIA [id number] [address] [place], [place] [address] [place] Calcium [Mass/Vol] 10.3 mg/dL Normal 8.5-10.5 [facility] Comment on above: Order Comment: Speci men Type: BLOOD SPECIMEN Ordering Facility: [facility] Address: [address] [place], [place] [address] Performed By: #### 2 4323-8, 37108-3, 2776-08 #### [facility] CLIA [id number] [address] [place] [address] [place] Chloride [Moles/Vol] 108 mmol/L High 98-107 [facility] Comment on above: Order Comment: Speci men Type: BLOOD SPECIMEN Ordering Facility: [facility] Address: [address] [place] [address] Performed By: #### 2 4323-8, 16349-8, 2776-08 #### [facility] CLIA [id number] [address] [place] [address] [place] CO2 [Moles/Vol] 23 mmol/L Normal 21-32 [facility] Comment on above: Order Comment: Speci men Type: BLOOD SPECIMEN Ordering Facility: [facility] Address: [address] [place] [address] Performed By: #### 2 4323-8, , 2776-08 #### [facility] CLIA [id number] [address] [place] [address] [place] Creatinine [Mass/Vol] 0.61 mg/dL Normal 0.51-0.95 [facility] Comment on above: Order Comment: Speci men Type: BLOOD SPECIMEN Ordering Facility: [facility] Address: [address] [place] [address] Result Comment: Ernestine ents receiving either N-Acetylcysteine (NAC) or Metamizole prior to venipuncture, may have falsely depressed results. Performed By: #### 2 4323-8, , 2776-08 #### [facility] CLIA [id number] [address] [place] [address] Creatinine and Glomerular filtration rate.predicted panel (S/P/Bld) 132 mL/min/1.73m??? Normal >=60 [facility] Comment on above: Order Comment: Speci men Type: BLOOD SPECIMEN Ordering Facility: [facility] Address: [address] [place] [address] Result Comment: Meeta mated Glomerular Filtration Rate (eGFR) is calculated using the 2020 CKD-EPI creatinine equation. This equation utilizes serum creatinine, sex, and age as parameters. The creatinine assay has traceable calibration to isotope dilution-mass spectrometry. Refer to KDIGO guidelines for clinical interpretation. In patients with unstable renal function, e.g. those with acute kidney injury, the eGFR may not accurately reflect actual GFR. Performed By: #### 2 4323-8, 99144-4, 2776-08 #### [facility] CLIA [id number] [address] [place] [address] [place] Glucose [Mass/Vol] 120 mg/dL High 70-100 [facility] Comment on above: Order Comment: Ryan spain Type: BLOOD SPECIMEN Ordering Facility: [facility] Address: [address] [place], [place] [address] Result Comment: The [place] Diabetes Association (ADA) provides guidance for cutoff values for fasting glucose and random glucose. The ADA defines fasting as no caloric intake for at least 8 hours. Fasting plasma glucose results between 100 to 125 mg/dL indicate increased risk for diabetes (prediabetes). Fasting plasma glucose results greater than or equal to 126 mg/dL meet the criteria for diagnosis of diabetes. In the absence of unequivocal hyperglycemia, results should be confirmed by repeat testing. In a patient with classic symptoms of hyperglycemia or hyperglycemic crisis, random plasma glucose results greater than or equal to 200 mg/dL meet the criteria for diagnosis of diabetes. Reference: Standards of Medical Care in Diabetes 2016, [place] [employer] Association. Diabetes Care. 2016.39(Suppl 1). Results may be falsely elevated after the administration of Sulfapyridine. Results may be falsely depressed after the administration of Sulfasalazine. Performed By: #### 2 4323-8, 40701-9, 2777-1 #### [facility] CLIA [id number] [address] [place], [place] [address] [place] Potassium [Moles/Vol] 4.1 mmol/L Normal 3.5-5.1 [facility] Comment on above: Order Comment: Ryan spain Type: BLOOD SPECIMEN Ordering Facility: [facility] Address: [address] [place] [address] Performed By: #### 2 4323-8, 26603-2, 2777-1 #### [facility] CLIA [id number] [address] [place], [place] [address] [place] Protein [Mass/Vol] 8.1 g/dL Normal 6.0-8.5 [facility] Comment on above: Order Comment: Ryan spain Type: BLOOD SPECIMEN Ordering Facility: [facility] Address: [address] [place] [address] Performed By: #### 2 4323-8, 14597-5, 2776-08 #### [facility] CLIA [id number] [address] [place], [place] [address] [place] Sodium [Moles/Vol] 140 mmol/L Normal 136-145 [facility] Comment on above: Order Comment: Speci men Type: BLOOD SPECIMEN Ordering Facility: [facility] Address: [address] [place] [address] Performed By: #### 2 4323-8, , 2776-08 #### [facility] CLIA [id number] [address] [place], [place] [address] [place] Urea nitrogen [Mass/Vol] 15 mg/dL Normal 7-26 [facility] Comment on above: Order Comment: Speci men Type: BLOOD SPECIMEN Ordering Facility: [facility] Address: [address] [place] [address] Performed By: #### 2 4323-8, , 2776-08 #### [facility] CLIA [id number] [address] [place], [place] [address] [place] HISTORY PHYSICALon HISTORY PHYSICAL HNO ID: [id number] Author: GUSTAVO CHAN MD Service: Hospital Medicine Author Type: Physician Type: H&P Filed: 04/24/2024 10:36 Note Text: HISTORY AND PHYSICAL EXAMINATION SERVICE DATE: 04/24/2024 SERVICE TIME: 9:46 PM PRIMARY CARE PHYSICIAN: Mitzy Fung MD, MD CHIEF COMPLAINT: Sore throat/dysphagia HPI: This is a 19 year old female with a past medical history of ADHD, PCOS, asthma, URIEL. Patient was transferred from [facility] hospital today for concerns of 2 cm right peritonsillar abscess. Of note patient recently had a dental extraction at [facility] approximately 1 week ago due to concerns for infection was given p.o. cefdinir and Keflex however patient started having dysphagia associated with sore throat and went to [facility]. At [facility] ED patient was given IV clindamycin and IV Decadron in the ED. Due to [facility] not having ENT onsite patient was transferred here at [facility] for further ENT management as well as infectious disease. On presentation vitals were stable patient endorsed that she continues to have difficulty swallowing, associated with dysphonia. Endorses chills denies fever, nausea, vomiting, shortness of breath, and chest pain. Patient started on IV clindamycin 600 mg every 8hrs, with IV Decadron milligrams every 6hrs. ENT consulted as well as ID. Will keep patient NPO for now. FUNCTIONAL STATUS: Independent No past medical history on file. No past surgical history on file. FAMILY HISTORY Problem Relation Age of Onset Diabetes Maternal Aunt Diabetes Maternal Uncle Asthma Maternal Grandmother Asthma Maternal Uncle Social History Tobacco Use Smoking status: Never Passive exposure: Yes Smokeless tobacco: Never Vaping Use Vaping status: Never Used D-MANNOSE ORAL, Take 2,000 mg by mouth., Disp: , Rfl: , 04/23/2024 VITAMIN C 500 mg tablet, , Disp: , Rfl: , 04/23/2024 L. acidophilus-L. salivarius-B. bifidum-S. thermophilus (ACIDOPHILUS PROBIOTIC BLEND) 175 mg capsule, , Disp: , Rfl: , 04/23/2024 SENEXON-S 8.6-50 mg per tablet, , Disp: , Rfl: , 04/23/2024 Cholecalciferol, Vitamin D3, 25 mcg (1,000 unit) cap, Take 5,000 Units by mouth once daily., Disp: , Rfl: , 04/23/2024 loratadine (CLARITIN) 10 mg tablet, , Disp: , Rfl: , Unknown cabergoline (DOSTINEX) 0.5 mg tablet, Take 0.5 mg by mouth every Thursday and Thursday., Disp: , Rfl: , Unknown FLOVENT HFA 44 mcg/actuation inhaler, , Disp: , Rfl: metFORMIN ER (GLUCOPHAGE XR) 500 mg 24 hr tablet, Take 1,000 mg by mouth two times a day., Disp: , Rfl: loratadine (CLARITIN ORAL), Take by mouth., Disp: , Rfl: , Unknown melatonin 1 mg tablet, Take by mouth., Disp: , Rfl: albuterol HFA (PROVENTIL HFA, VENTOLIN HFA) 90 mcg/actuation inhaler, Inhale 2 Puffs as instructed. (Patient not taking: Reported on 12/29/2023), Disp: , Rfl: ibuprofen (MOTRIN) 600 mg tablet, Take 1 tablet by mouth every 6 hours as needed for Pain. (Patient not taking: Reported on 12/29/2023), Disp: 30 tablet, Rfl: 0, Unknown PULMICORT 0.5 MG/2 ML NEB SOLUTION, use 1-2X daily (Patient not taking: Reported on 11/14/2023), Disp: 30, Rfl: 5 ACCUNEB 0.63 MG/3 ML SOLN FOR INHALATION, 1-4X daily (Patient not taking: Reported on 11/14/2023), Disp: 25, Rfl: 5 ALLERGIES Allergen Reactions Grass Pollen Unknown Penicillins Unknown COMPLETE REVIEW OF SYSTEMS: PAIN ASSESSMENT: CURRENTLY HAVING PAIN; see HPI GENERAL: No weight loss, malaise or fevers HEENT: Negative for frequent or significant headaches, No changes in hearing or vision, no nose bleeds or other nasal problems NECK: Right throat swelling, dysphonia RESPIRATORY: Negative for cough, hemoptysis, wheezing, COPD, dyspnea or shortness of breath CARDIOVASCULAR: Negative for chest pain, leg swelling, hypertension, CHF or palpitations GI: No nausea, vomiting, or diarrhea MUSCULOSKELETAL: Negative for joint pain or swelling, back pain or muscle pain SKIN: Negative for lesions, rash, and itching NEURO: No history of headaches, syncope, paralysis, seizures or tremors Objective BP 114/71 Pulse 77 Temp 98 Resp 18 Ht 5' 4.8 (1.65m) Wt 117 lb 4.6 oz (53.2kg) SpO2 99% LMP 12/24/2023 BMI 19.64 kg/(m2). O2 Therapy: Room Air PHYSICAL EXAM: Constitutional: in no obvious cardiopulmonary or painful distress. Acyanotic, anicteric, afebrile Head/Face: Normocephalic, atraumatic. CVS: S1, S2, RRR, No murmurs, no rubs or gallops Respiratory: Air entry equal bilaterally, breath sounds clear, no Creps no rhonchi Abdomen: Soft nontender, nondistended, no masses, no palpable hepatosplenomegaly, bowel sounds normal Extremities: No edema, no cyanosis. Skin: Warm dry with normal skin turgor. Normal color with no rashes, no lesions, and no evidence of cellulitis. Neurologic examination: Power 5/5 throughout, sensation intact throughout Psych: Awake, alert, orientated to person, place and time DATA: Diagnostic tests reviewed for today's visit: Routine labs (more content not included)... Normal [facility] Magnesium [facility] 04-24 Magnesium [Mass/Vol] 2.2 mg/dL Normal 1.6-2.6 [facility] Comment on above: Order Comment: Ryan spain Type: BLOOD SPECIMEN Ordering Facility: [facility] Address: [address] [place] [address] Performed By: #### 2 4323-8, 42390-4, 2776-08 #### [facility] CLIA [id number] [address] [place], [place] [id number] [place] [facility] Phosphate [Mass/Vol] 3.8 mg/dL Normal 2.5-4.9 [facility] Comment on above: Order Comment: Ryan spain Type: BLOOD SPECIMEN Ordering Facility: [facility] Address: [address] [place] [address] Result Comment: Elev ated m-protein (paraprotein) levels in the serum may be exhibited in patients with monoclonal gammopathies, causing falsely elevated inorganic phosphorus results. Performed By: #### 2 4323-8, , 2776-08 #### [facility] CLIA [id number] [address] [place], [place] [address] [place] Progress Noteon 04-20-2024 Rn Anesthesiology Authentication Interface Message Text Patient ID: Luis Barajas is a 19 y.o. female. Her chief complaint(s) include: ED Follow Up, Chest Pain, and Breathing Problem Assessment 1. Dental infection 2. Pharyngitis, unspecified etiology 3. Mild persistent asthma without complication Plan Luis was seen today for ed follow up, chest pain and breathing problem. Diagnoses and associated orders for this visit: Dental infection - cefdinir (OMNICEF) 300 MG capsule; Take 1 Capsule (300 mg) by mouth every 12 hours for 10 days Pharyngitis, unspecified etiology Mild persistent asthma without complication - albuterol 108 (90 Base) MCG/ACT inhaler; Inhale 2 Puffs into the lungs every 4 hours as needed for Wheezing or Shortness of Breath Patient complaining of sore throat and swollen lymph node on right side. Lungs seem to be doing well and no current chest pain. Patient recently had extraction of several teeth---several on right right side of mouth. Exam showed some erythema and swelling on back of throat on right side. No signs of abscess. Upper right gum at site of tooth extraction had some swelling and mild erythema and somewhat purulent matter. Patient allergic to pcn so will start patient on omnicef. May need to consider starting clindamycin if not improving with the omnicef. Also discussed follow up with dentist if not improving or worsening. Instructed to make sure to continue with mouth rinses. Refill on albuterol sent. Return if symptoms worsen or fail to improve. Subjective HPI Comments: Patient was having some swelling of face and having headaches. Mother felt that symptoms were due to allergies. Now she is having sore throat and swollen lymph nodes. Just had some dental work completed. No strep exposure. Not having issues with breathing at this time. Patient currently on qvar 40mc puffs 2x/day. Doesn't have albuterol rescue inhaler---needs refill. Patient has history of PCOS and also recurrent UTI: is seen by specialist for those 2 issues. She is accompanied by her mother. Independent history obtained from mother (and patient). Pharyngitis The onset has been acute. The duration has been 1 day. The pattern is persistent. Aggravated by eating and drinking. The patient's symptoms have included decreased appetite, decreased fluid intake, headaches, ear pain (right ear), congestion, rhinorrhea and cough. The patient's symptoms have included no fever, no difficulty sleeping, no vomiting and no diarrhea. The patient has been exposed to no sick contacts. Home Management: naproxen/ibuprofen or tylenol in addition to regular meds. Review of Systems Cardiovascular: Positive for chest pain. Objective Vital Signs 04/20/24 1400 BP: 111/71 Pulse: 97 Temp: 37.5 C (99.5 F) TempSrc: Temporal SpO2: 100% Weight: 57.6 kg Height: 164.5 cm Body mass index is 21.29 kg/m . Physical Exam Constitutional: She appears well. She is active. No distress. HENT: Head: Atraumatic. Ears: Right Ear: Tympanic membrane normal. Left Ear: Tympanic membrane normal. Mouth/Throat: Mucous membranes are moist. Pharynx erythema (mild erythema/swelling of pharynx--more on right side. Patient with multiple teeth extraction. Right upper gum with erythema/swelling noted at area of tooth extraction. Possible purulence noted.) present. Cardiovascular: Normal rate and regular rhythm. Heart murmur not heard. Pulmonary/Chest: Breath sounds normal. There is normal air entry. Neurological: She is alert. Vitals reviewed: Blood pressure 111/71, pulse 97, temperature 37.5 C (99.5 F), temperature source Temporal, height 164.5 cm, weight 57.6 kg, SpO2 100%. Normal [facility] 12 Lead EKGon 2024 12 Lead EKG [facility] Cardiovascular Services [address] [place] [address] 12 Lead EKG 04/17/24 0305 MR#: [id number] Acct: [id number] Name: LUIS BARAJAS Rep #: [id number] : 2005 19 From: Andrés Faith MD Attending Dr: Status: DEP ER Ordering Dr: Teodoro Garcia DO Date: 04/17/24 Location: ED Sex: F AA Admitted: Test Reason : CP Blood Pressure : / mmHG Vent. Rate : 128 BPM Atrial Rate : 128 BPM P-R Int : 128 ms QRS Dur : 092 ms QT Int : 322 ms P-R-T Axes : 071 094 005 degrees QTc Int : 470 ms Sinus tachycardia Rightward axis Borderline ECG Poor tracing Baseline artifact Confirmed by Andrés Faith ([id number]), editor department IVONNE MAHAJAN ([id number]) on 04/18/2024 10:56:34 AM Referred By: LINNEA Confirmed By:Andrés Faith 04/18/24 1056 Date Andrés Faith MD CC: Dr. Mitzy Fung MD; Teodoro Garcia DO Signed Normal [facility] Basic Metabolic Profile (BMP )on 2024 BUN/CRE 12.7 RATIO Normal 10-20 [facility] Comment on above: Order Comment: 'TROP ' Serial specimen #1, #2 or #3: 1 Performed By: #### L 100.0100, L500.2500, L501.5200, L501.4020, L300.8000 ####[facility] [address] [place], [address] CA,Total 9.4 mg/dL Normal 8.5-10.1 [facility] Comment on above: Order Comment: 'TROP ' Serial specimen #1, #2 or #3: 1 Performed By: #### L 100.0100, L500.2500, L501.5200, L501.4020, L300.8000 ####[facility] [address] [place], [address] Chloride [Moles/Vol] 106 mmol/L Normal 98-107 [facility] Comment on above: Order Comment: 'TROP ' Serial specimen #1, #2 or #3: 1 Performed By: #### L 100.0100, L500.2500, L501.5200, L501.4020, L300.8000 ####[facility] [address] [place], [address] CO2 [Moles/Vol] 25.0 mmol/L Normal 21.0-32.0 [facility] Comment on above: Order Comment: 'TROP ' Serial specimen #1, #2 or #3: 1 Performed By: #### L 100.0100, L500.2500, L501.5200, L501.4020, L300.8000 ####[facility] [address] [place], [address] Creatinine [Mass/Vol] 0.87 mg/dL Normal 0.55-1.02 [facility] Comment on above: Order Comment: 'TROP ' Serial specimen #1, #2 or #3: 1 Result Comment: The validity of the calculated GFR GFRAA in patients over 70 years has not been determined. Clinical correlation is essential. Performed By: #### L 100.0100, L500.2500, L501.5200, L501.4020, L300.8000 ####[facility] [address] [place], [address] ECRCL 93.59 ml/min Normal [facility] Comment on above: Order Comment: 'TROP ' Serial specimen #1, #2 or #3: 1 Performed By: #### L 100.0100, L500.2500, L501.5200, L501.4020, L300.8000 ####[facility] [address] [place], [address] EST GFR - AA 108 mL/min Normal >60 [facility] Comment on above: Order Comment: 'TROP ' Serial specimen #1, #2 or #3: 1 Result Comment: Afri can [place] GFR Calc Performed By: #### L 100.0100, L500.2500, L501.5200, L501.4020, L300.8000 ####[facility] [address] [place], [address] GAP 8 Normal 5-15 [facility] Comment on above: Order Comment: 'TROP ' Serial specimen #1, #2 or #3: 1 Performed By: #### L 100.0100, L500.2500, L501.5200, L501.4020, L300.8000 ####[facility] [address] [place], [address] GFR/1.73 sq M.predicted among non-blacks MDRD (S/P/Bld) [Vol rate/Area] 90 mL/min/{1.73_m2} Normal >60 [facility] Comment on above: Order Comment: 'TROP ' Serial specimen #1, #2 or #3: 1 Result Comment: Non- GFR Calc Performed By: #### L 100.0100, L500.2500, L501.5200, L501.4020, L300.8000 ####[facility] [address] [place], [address] Glucose [Mass/Vol] 73 mg/dL Low 74-106 [facility] Comment on above: Order Comment: 'TROP ' Serial specimen #1, #2 or #3: 1 Performed By: #### L 100.0100, L500.2500, L501.5200, L501.4020, L300.8000 ####[facility] [address] [place], [address] Potassium [Moles/Vol] 3.2 mmol/L Low 3.5-5.1 [facility] Comment on above: Order Comment: 'TROP ' Serial specimen #1, #2 or #3: 1 Performed By: #### L 100.0100, L500.2500, L501.5200, L501.4020, L300.8000 ####[facility] [address] [place], [address] Sodium [Moles/Vol] 139 mmol/L Normal 136-145 [facility] Comment on above: Order Comment: 'TROP ' Serial specimen #1, #2 or #3: 1 Performed By: #### L 100.0100, L500.2500, L501.5200, L501.4020, L300.8000 ####[facility] [address] [place], [address] Urea nitrogen [Mass/Vol] 11 mg/dL Normal 7-18 [facility] Comment on above: Order Comment: 'TROP ' Serial specimen #1, #2 or #3: 1 Performed By: #### L 100.0100, L500.2500, L501.5200, L501.4020, L300.8000 ####[facility] [address] [place], [address] CBC W/Diff, Automatedon 08-2 Absolute Lymph 3.76 X10 3/uL Normal 0.83-4.51 [facility] Comment on above: Performed By: #### L 100.0100, L500.2500, L501.5200, L501.4020, L300.8000 ####[facility] [address] [place], [address] Absolute Neut 4.9 X10 3/uL Normal 2.0-7.7 [facility] Comment on above: Performed By: #### L 100.0100, L500.2500, L501.5200, L501.4020, L300.8000 ####[facility] [address] [place], [address] Basophils/100 WBC (Bld) 0.5 % Normal 0-1 [facility] Comment on above: Performed By: #### L 100.0100, L500.2500, L501.5200, L501.4020, L300.8000 ####[facility] [address] [place], [address] Eosinophils/100 WBC (Bld) 1.4 % Normal 0-5 [facility] Comment on above: Performed By: #### L 100.0100, L500.2500, L501.5200, L501.4020, L300.8000 ####[facility] [address] [place], [address] Erythrocyte distribution width (RBC) [Ratio] 11.9 % Normal 11.6-14.6 [facility] Comment on above: Performed By: #### L 100.0100, L500.2500, L501.5200, L501.4020, L300.8000 ####[facility] [address] [place], [address] Hematocrit (Bld) [Volume fraction] 36.0 % Low 37-47 [facility] Comment on above: Performed By: #### L 100.0100, L500.2500, L501.5200, L501.4020, L300.8000 ####[facility] [address] [place], [address] Hemoglobin (Bld) [Mass/Vol] 11.6 g/dL Low 12.0-15.0 [facility] Comment on above: Performed By: #### L 100.0100, L500.2500, L501.5200, L501.4020, L300.8000 ####[facility] [address] [place], [address] IG% 0.300 Normal 0.0-0.9 [facility] Comment on above: Result Comment: IG% - Immature Granulocytes (promyelocytes, myelocytes and metamyelocytes) > 1% indicates that a LEFT SHIFT is Present. Performed By: #### L 100.0100, L500.2500, L501.5200, L501.4020, L300.8000 ####[facility] [address] [place], [address] Lymphocytes/100 WBC (Bld) 38.3 % Normal 19-41 [facility] Comment on above: Performed By: #### L 100.0100, L500.2500, L501.5200, L501.4020, L300.8000 ####[facility] [address] [place], [address] MCH (RBC) [Entitic mass] 28.3 pg Normal 27.0-32.0 [facility] Comment on above: Performed By: #### L 100.0100, L500.2500, L501.5200, L501.4020, L300.8000 ####[facility] [address] [place], [address] MCHC (RBC) [Mass/Vol] 32.2 g/dL Normal 32-36 [facility] Comment on above: Performed By: #### L 100.0100, L500.2500, L501.5200, L501.4020, L300.8000 ####[facility] [address] [place], [address] MCV (RBC) [Entitic vol] 87.8 fL Normal 81-99 [facility] Comment on above: Performed By: #### L 100.0100, L500.2500, L501.5200, L501.4020, L300.8000 ####[facility] [address] [place], [address] Monocytes/100 WBC (Bld) 9.3 % Normal 0-10 [facility] Comment on above: Performed By: #### L 100.0100, L500.2500, L501.5200, L501.4020, L300.8000 ####[facility] [address] [place], [address] Neutrophils/100 WBC (Bld) 50.2 % Normal 47-70 [facility] Comment on above: Performed By: #### L 100.0100, L500.2500, L501.5200, L501.4020, L300.8000 ####[facility] [address] [place], [address] Nucleated RBC (Bld) [#/Vol] 0 10*3/uL Normal 0-5 [facility] Comment on above: Performed By: #### L 100.0100, L500.2500, L501.5200, L501.4020, L300.8000 ####[facility] [address] [place], [address] Platelet mean volume (Bld) [Entitic vol] 10.3 fL Normal 6.2-12.0 [facility] Comment on above: Performed By: #### L 100.0100, L500.2500, L501.5200, L501.4020, L300.8000 ####[facility] [address] [place], [address] Platelets (Bld) [#/Vol] 305 10*3/uL Normal 150-450 [facility] Comment on above: Performed By: #### L 100.0100, L500.2500, L501.5200, L501.4020, L300.8000 ####[facility] [address] [place], [address] RBC (Bld) [#/Vol] 4.10 10*6/uL Low 4.2-5.4 [facility] Comment on above: Performed By: #### L 100.0100, L500.2500, L501.5200, L501.4020, L300.8000 ####[facility] [address] [place], [address] RDW SD 38.3 fl Normal 35.1-43.9 [facility] Comment on above: Performed By: #### L 100.0100, L500.2500, L501.5200, L501.4020, L300.8000 ####[facility] [address] [place], [address] WBC (Bld) [#/Vol] 9.8 10*3/uL Normal 4.4-11.0 [facility] Comment on above: Performed By: #### L 100.0100, L500.2500, L501.5200, L501.4020, L300.8000 ####[facility] [address] [place], [address] CTA Chest W/WO Contraston CTA Chest W/WO Contrast [facility] Imaging Services [address] [place] [address] CTA Chest W/WO Contrast MR#: [id number] Acct: [id number] Name: LUIS BARAJAS Rep #: [id number] : 2005 F 19 From: Sal Nobles MD PCP: Dr. Mitzy Fung MD Status: [facility] ER Study: CTA Chest W/WO Contrast Date of Exam: 04/17/24 Exam# [id number] Ordering Dr: Teodoro Garcia DO -[id number] STUDY: CTA CHEST REASON FOR EXAM: Female, 19 years old. chest pain with elevated d-dimer RADIATION DOSAGE (If Supplied By Facility): CTDIvol = ( 7.67 ) mGy, DLP = ( 166.51 ) mGycm TECHNIQUE: The examination was performed with the intravenous administration of IV 75mL Isovue-370. Post-processing of the angiographic images was performed, with multiplanar reformation and 3D reconstruction. Individualized dose optimization techniques were used for this CT. COMPARISON: 2024. FINDINGS: Unremarkable thyroid. Normal enhancement of the bilateral pulmonary arteries. There is no demonstrated pulmonary embolism. No main pulmonary arterial enlargement. No aortic dissection or aneurysmal dilatation. Left vertebral artery originates from the arch. No cardiomegaly or pericardial effusion. No densely calcified coronary atherosclerosis. Subcentimeter reactive bilateral hilar lymph nodes are present. No adenopathy by size criteria.. Unremarkable esophagus. Mild diffuse peribronchial thickening. No endobronchial lesion. No airspace consolidation, effusion, or pneumothorax. Minimal dependent atelectasis Normal osseous structures. Normal visualized upper abdomen. CT/CTA Chest W/WO Contrast IMPRESSION: No pulmonary embolism or evidence of acute airspace disease. Diffuse mild peribronchial thickening as can be seen with bronchitis/bronchio litis. Electronically Signed: Sal Nobles MD at 5:21 EDT , CC: Dr. Mitzy Fung MD; Teodoro Garcia DO Central Lab Technician: Signed Normal [facility] Chest PA and Lateralon 04-17 Chest PA and Lateral [facility] Imaging Services [address] [place] [id number] Chest PA and Lateral MR#: [id number] Acct: [id number] Name: LUIS BARAJAS Rep #: [id number] : 2005 F 19 From: Sal Nobles MD PCP: Dr. Mitzy Fung MD Status: REG ER Study: Chest PA and Lateral Date of Exam: 04/17/24 Exam# [id number] Ordering Dr: Teodoro Garcia DO -[id number] INDICATION: chest pain EXAMINATION/TECHNIQ UE: X-RAY - XR Chest 2 Views COMPARISON: July 26, 2021. FINDINGS: LINES/DEVICES: None. LUNGS: No consolidation, edema or effusion. No pneumothorax. MEDIASTINUM AND CARDIOVASCULAR STRUCTURES: Cardiac silhouette not enlarged. BONES AND SOFT TISSUES: Unremarkable. RAD/Chest PA and Lateral IMPRESSION: No radiographic evidence of acute cardiopulmonary disease. Electronically Signed: Sal Nobles MD at 4:27 EDT , CC: Dr. Mitzy Fung MD; Teodoro Garcia DO Central Lab Technician: Signed Normal [facility] D-Dimer Quantitative (DVT/PE )on 2024 D-DIMER QUANT 0.55 FEU/ug/m Invalid Interpretation Code 0.27-0.49 [facility] Comment on above: Result Comment: D-Di vicente ELEVATED (>0.49): Additional studies and clinical assessments are indicated to conclude diagnosis of: Deep Vein Thrombosis (DVT) or Pulmonary Embolism (PE) CRITICAL VALUE VERIFIED. CALLED TO LSPARR 04/17/24 0350 Ivonne Artis. RESULTS READ BACK BY SAME. Performed By: #### L 100.0100, L500.2500, L501.5200, L501.4020, L300.8000 ####[facility] [address] [place], [address] Emergency Department Summary on 2024 Emergency Department Summary [facility] Medical Records Department [address] [place] [address] Emergency Department Summary 04/17/24 MR#: [id number] Acct: [id number] Name: LUIS BARAJAS Rep #: [id number] : 2005 19 From: Teodoro Garcia DO PCP: Dr. Mitzy Fung MD Status:DEP ER Location: ED HPI History of Present Illness Chief Complaint: Shortness of Breath Informant: patient, parent and family Narrative Narrative: Patient is a 19-year-old female with past medical history of PCOS who is currently on testosterone and estrogen. She also states that she smokes and vapes. She was recently seen in the hospital secondary to dental pain and placed on antibiotics secondary to this. Patient states she has been taking antibiotic as directed and has been doing better as far as her dental issues go. She states she went to bed this evening and then awoke roughly an hour prior to arrival with chest and back pain. She denies any recent trauma she denies any previous surgery or history of DVT/PE. She states there is no cardiac disease at a young age within the family and she denies any illicit drug use. However secondary to the persistent pain she comes in for evaluation [facility] Medical History Wears glasses Bipolar disorder Anxiety Non-smoker PCOS (polycystic ovarian syndrome) Endometriosis determined by laparoscopy ADHD Asthma Home Medications ???Medication ???Instructions ???Recorded ???Last Taken ???Type albuterol sulfate 90 mcg/actuation 1 puff inhalation PRN PRN Wheezing 01/10/19 12/21/23 History aerosol inhaler (Ventolin HFA) melatonin 5 mg tablet 5 mg PO PRN PRN Insomnia 07/19/19 12/21/23 History loratadine 10 mg capsule 10 mg PO DAILY 12/11/20 12/21/23 History norethindrone acetate 5 mg tablet 5 mg PO DAILY 11/28/22 12/21/23 History d-mannose 500 mg capsule 2,000 mg PO DAILY SUPPLEMENT 12/21/23 12/21/23 History naproxen 500 mg tablet 500 mg PO Q12H PRN PRN Pain #20 04/12/24 Unknown Rx tabs penicillin V potassium 500 mg 500 mg PO 4X/DAY #40 tabs 04/12/24 Unknown Rx tablet methocarbamol 500 mg tablet 1,000 mg (2 x 500 mg) PO 4X/DAY 04/17/24 Unknown Rx PRN Muscle pain/spasm #56 tabs Allergy/AdvReac Type Severity Reaction Status Date / Time tree and shrub pollen Allergy Other Verified 04/12/24 16:22 Surgical History S/P laparoscopy Social History Smoking Status: Current every day smoker tobacco type: cigarettes and e-cigarettes alcohol intake: never substance use type: does not use ROS ROS ED Constitutional Constitutional ED: Denies chills or fever(s) Eyes Eyes: Denies blurry vision or change in vision ENT ENT ED: Reports other; Denies sore throat Cardiovascular Cardiovascular: Reports chest pain and racing heartbeat; Denies palpitations Respiratory/Chest Respiratory/Chest: Denies cough or dyspnea Gastrointestinal Gastrointestinal: Denies abdominal pain, diarrhea, nausea or vomiting Genitourinary Genitourinary ED: Reports urinary frequency; Denies dysuria or hematuria Musculoskeletal Musculoskeletal: Reports back pain; Denies myalgias Integumentary Denies rash Neurologic Neurologic: Denies headache(s) Hematologic/Lymphat ic Hematologic/Lymphat ic: Denies easy bleeding or easy bruising EXAM Physical Exam Const Vital Signs: 04/17/24 03:02 04/17/24 03:09 04/17/24 05:02 Temperature 97.5 F L Temperature Source Temporal Pulse Rate 117 H 63 Respiratory Rate 15 14 Respiratory Effort Short of Breath Respiratory Depth Shallow Respiratory Pattern Tachypnea Blood Pressure 178/110 H 136/91 H Blood Pressure Mean 132 106 Pulse Ox 100 99 Oxygen Delivery Method Room Air Room Air Room Air 04/17/24 05:48 Temperature 97.8 F Temperature Source Pulse Rate 66 Respiratory Rate 12 Respiratory Effort Respiratory Depth Respiratory Pattern Blood Pressure 113/88 H Blood Pressure Mean 96 Pulse Ox 99 Oxygen Delivery Method Positive well nourished and well developed General Appearance ED: well developed; Negative for pallor HEENT HEENT Narrative: Normocephalic atraumatic Dental caries noted consistent with her previous exam without obvious abscess formation No secondary findings in the posterior pharynx to suggest Eyes PERRL and EOMs intact bilaterally General Eye ED: Negative for pale conjunctiva or scleral icterus Neck supple Neck Narrative: No nuchal rigidity or meningeal signs noted No crepitance palpated Chest Wall palpation of chest normal Chest Narrative: No bony deformity or crepitance noted Resp normal respiratory effort and clear to auscul (more content not included)... Normal [facility] L501.4020on 2024 TROPONIN-I HS < 3 Low 3.0-54.0 [facility] Comment on above: Order Comment: 'TROP ' Serial specimen #1, #2 or #3: 1 Result Comment: Antonio castro Note: New Test Units and Gender Specific Reference Ranges. For more information see Policy Stat Procedure [place] High Sensitivity Troponin (TNIH) and attachments. Performed By: #### L 100.0100, L500.2500, L501.5200, L501.4020, L300.8000 ####[facility] [address] [place], [address] Magnesiumon 2024 Magnesium [Mass/Vol] 2.1 mg/dL Normal 1.6-2.6 [facility] Comment on above: Order Comment: 'TROP ' Serial specimen #1, #2 or #3: 1 Performed By: #### L 100.0100, L500.2500, L501.5200, L501.4020, L300.8000 ####[facility] [address] [place], [address] Urinalysis, Completeon 04-17 EPI,SQUAMOUS 0-5 SEEN Normal 5-10 [facility] Comment on above: Order Comment: CLEAN CATCH Performed By: #### L 400.0001 #### [facility] [address] [place], [address] WBC 0-5 SEEN Normal 0-5 [facility] Comment on above: Order Comment: CLEAN CATCH Performed By: #### L 400.0001 #### [facility] [address] [place], [address] BACTERIA 0 SEEN Normal None Seen [facility] Comment on above: Order Comment: CLEAN CATCH Performed By: #### L 400.0001 #### [facility] [address] [place], [address] Mucus Ql (Urine sed) 0 SEEN Normal [facility] Comment on above: Order Comment: CLEAN CATCH Performed By: #### L 400.0001 #### [facility] [address] [place], [address] RBC 0 SEEN Normal 0-5 [facility] Comment on above: Order Comment: CLEAN CATCH Performed By: #### L [id number] #### [facility] [address] [place], [address] Emergency Department Summary on 04-12-2024 Emergency Department Summary [facility] Medical Records Department [address] [place] [address] Emergency Department Summary 04/12/24 MR#: [id number] Acct: [id number] Name: LUIS BARAJAS Rep #: [id number] : 2005 18 From: Javier Isabel DO PCP: Dr. Mitzy Fung MD Status:DEP ER Location: ED HPI History of Present Illness Chief Complaint: Dental Informant: patient Onset/Context/June parra Onset: Yesterday Context: Gradual Onset Timing: Continuous Quality: Sharp, burning Location: Right upper molars Worsened by: Air Relieved by: - (Nothing) Associated Symptoms Assocated Symptom - Dental: fever, cold sensitivity and hot sensitivity; Negative for jaw swelling or face swelling Narrative Narrative: Patient presents with right upper dental pain that began yesterday. Patient states that a piece of her tooth broke off while she was drinking water. Patient states it is gradually gotten worse. Patient describes her pain as sharp and burning. Patient states it has been constant. Patient states it is worse whenever air hits it. Patient also admits to hot and cold sensitivity. Patient admits to some subjective fevers and chills. Patient states she has been taking Tylenol and ibuprofen with no relief. Patient denies any difficulty breathing or difficulty swallowing. [facility] Medical History Wears glasses Bipolar disorder Anxiety Non-smoker PCOS (polycystic ovarian syndrome) Endometriosis determined by laparoscopy ADHD Asthma Home Medications ???Medication ???Instructions ???Recorded ???Last Taken ???Type albuterol sulfate 90 mcg/actuation 1 puff inhalation PRN PRN Wheezing 01/10/19 12/21/23 History aerosol inhaler (Ventolin HFA) melatonin 5 mg tablet 5 mg PO PRN PRN Insomnia 07/19/19 12/21/23 History loratadine 10 mg capsule 10 mg PO DAILY 12/11/20 12/21/23 History norethindrone acetate 5 mg tablet 5 mg PO DAILY 11/28/22 12/21/23 History hydrocodone-acetami nophen 5-325mg 1 tab PO Q6H PRN PRN Pain 3 days 09/25/23 Unknown Rx 5mg-325mg #10 TABLETS phenazopyridine 200 mg tablet 200 mg PO TID #10 tabs 11/14/23 Unknown Rx (Pyridium) d-mannose 500 mg capsule 2,000 mg PO DAILY SUPPLEMENT 12/21/23 12/21/23 History naproxen 500 mg tablet 500 mg PO Q12H PRN PRN Pain #20 04/12/24 Unknown Rx tabs penicillin V potassium 500 mg 500 mg PO 4X/DAY #40 tabs 04/12/24 Unknown Rx tablet Allergy/AdvReac Type Severity Reaction Status Date / Time tree and shrub pollen Allergy Other Verified 04/12/24 16:22 Surgical History S/P laparoscopy Social History Smoking Status: Never smoker alcohol intake: never substance use type: does not use ROS ROS ED Constitutional Constitutional ED: Reports chills, fever(s) and subjective Eyes Eyes: Denies blurry vision or change in vision ENT ENT ED: Denies rhinorrhea or sore throat Cardiovascular Cardiovascular: Denies chest pain or palpitations Respiratory/Chest Respiratory/Chest: Denies cough or dyspnea Gastrointestinal Gastrointestinal: Denies nausea or vomiting Genitourinary Genitourinary ED: Denies dysuria or hematuria Musculoskeletal Musculoskeletal: Denies back pain or neck pain Integumentary Denies abscess or rash Neurologic Neurologic: Denies headache(s) or weakness Allergic/Immunologi c Allergic/Immunologi c ED: Denies mouth swelling or urticaria EXAM Physical Exam Const Vital Signs: 04/12/24 16:22 Temperature 97.9 F Temperature Source Temporal Pulse Rate 74 Respiratory Rate 18 Blood Pressure 118/74 Blood Pressure Mean 88 Pulse Ox 100 Oxygen Delivery Method Room Air Positive well nourished and well developed General Appearance ED: well developed and NAD HEENT HEENT Narrative: There are dental caries noted over the right upper molars. There is some mild gingival edema around the right upper second molar. There is no fluctuance. There is no discharge or drainage. There is no evidence of any abscess. Oropharynx is clear. Airway is patent. Mouth ED: Yes oral and palatal mucosa normal Mouth: oral and palatal mucosa normal Teeth and Gingiva: caries and gingiva abnormal Positive for gingival edema Neck supple and no JVD General: Negative for anterior neck swelling, tenderness or submandibular swelling Neuro oriented x3, CN's II-XII intact bilaterally, moves all extremities, no focal motor deficits and no sensory deficits noted Sensorium / Orientation: alert Motor Exam: strength 5/5 throughout Psych mental status grossly normal MDM MDM MDM Narrative Medical decision making narrative: Patient was advised that her pain is most likely coming from her infected d (more content not included)... [facility] ---- LUIS BARAJAS ([id number]) 5 F Date Time Provider Department 01/26/24 4:30 PM MARTÍNEZ LYLES [facility] During your visit today, we recorded the following information about you: Temperature Pulse Respiration Blood pressure 97.9 degrees 80/minute 16/minute 102/60 Weight 60 kg NasirmaximoyusufMartínez ALEX.SOIL EXPERT 01/26/2024 4:37 PM Signed This note was created using Immediately. April Barajas is a 18 year old female. HPI Pt was seen about a month ago for pain in her right ear. She was prescribed an ear drop which she states bubbled and burned her ear. She did continue to use them but the ear never improved. She is also getting a wisdom tooth on that side. Review of Systems Constitutional: Negative for fatigue and fever. HENT: Positive for ear pain. Respiratory: Negative for cough. Objective BP 102/60 Pulse 80 Temp 36.6 ?C (97.9 ?F) Resp 16 Wt 60 kg (132 lb 4.4 oz) LMP 12/24/2023 (Exact Date) SpO2 99% Physical Exam Vitals and nursing note reviewed. Constitutional: General: She is not in acute distress. Appearance: Normal appearance. She is not ill-appearing. HENT: Head: Normocephalic. Right Ear: Tympanic membrane, ear canal and external ear normal. There is no impacted cerumen. Left Ear: Tympanic membrane, ear canal and external ear normal. There is no impacted cerumen. Mouth/Throat: Mouth: Mucous membranes are moist. Eyes: Conjunctiva/sclera: Conjunctivae normal. Cardiovascular: Rate and Rhythm: Normal rate and regular rhythm. Pulmonary: Effort: Pulmonary effort is normal. Breath sounds: Normal breath sounds. Musculoskeletal: General: Normal range of motion. Cervical back: Normal range of motion. Skin: General: Skin is warm and dry. Neurological: General: No focal deficit present. Mental Status: She is alert. Psychiatric: Mood and Affect: Mood normal. Behavior: Behavior normal. Assessment and Plan ASSESSMENT/PLAN: 1. Ear pain, right - ICD9: 388.70, ICD10: H92.01 Physical exam shows no erythema or swelling of the right tympanic membrane or external ear canal. I see no obvious signs of infection of the external ear structure. There was no obvious sign of dental caries or dental infection. I discussed with the patient that at this point I do not see a need for repeat antibiotic drops or pills. I recommended follow-up with dentistry as a possible source of pain. Also discussed use of ibuprofen or Tylenol as needed for pain. Martínez Lyles APRN.SOIL EXPERT Allergies As of Date: 01/26/2024 (No Known Allergies) Date Reviewed: 01/26/2024 Reviewed by: Martínez Lyles APRN.SOIL EXPERT - Fully Assessed Reason for Visit: Ear Pain [817] Cmt: right worse but left hurts x 1 month Primary Visit Diagnosis:Ear pain, right [H92.01] Prescriptions as of 01/26/2024 - loratadine (CLARITIN) 10 mg tablet - D-MANNOSE ORAL Take 2,000 mg by mouth. - VITAMIN C 500 mg tablet - L. acidophilus-L. salivarius-B. bifidum-S. thermophilus (ACIDOPHILUS PROBIOTIC BLEND) 175 mg capsule - SENEXON-S 8.6-50 mg per tablet - cabergoline (DOSTINEX) 0.5 mg tablet - Cholecalciferol, Vitamin D3, 25 mcg (1,000 unit) cap - FLOVENT HFA 44 mcg/actuation inhaler - metFORMIN ER (GLUCOPHAGE XR) 500 mg 24 hr tablet - loratadine (CLARITIN ORAL) Take by mouth. - melatonin 1 mg tablet Take by mouth. - albuterol HFA (PROVENTIL HFA, VENTOLIN HFA) 90 mcg/actuation inhaler Inhale 2 Puffs as instructed. - ibuprofen (MOTRIN) 600 mg tablet Take 1 tablet by mouth every 6 hours as needed for Pain. - PULMICORT 0.5 MG/2 ML NEB SOLUTION use 1-2X daily - ACCUNEB 0.63 MG/3 ML SOLN FOR INHALATION 1-4X daily Problem List As Of Date 01/26/2024 Noted Resolved ROUTINE CHILD HEALTH EXAM [Z00.129] 11/20/2006 CHRON OBST ASTHMA UNSPECIFIED [J44.89] 11/20/2006 OBESITY [E66.9] 11/20/2006 Encounter Status:Closed by MARTÍNEZ LYLES on 01/26/24 Normal [facility] Bacteria Ur Culton 4 Bacteria identified Cx Nom (U) ORGANISM ID: 1 >=100,000 CFU/ml Escherichia coli ORGANISM ID: 1 (ESCHERICHIA COLI) ANTIBIOTIC INTERPRETATION [place] STATUS REFERENCE RANGE Ampicillin R >=32 F Susceptible <=8 , Intermediate >8 , Resistant >16 Cefazolin S <=4 F Susceptible 0-16 , Intermediate <0 or >16 , Resistant >16 For uncomplicated urinary tract infections, cefazolin results can be used to predict susceptibility or resistance to cephalexin. Ceftriaxone S <=1 F Susceptible <=1 , Intermediate >1 , Resistant >=4 Cefepime S <=1 F Susceptible <=2 , Susceptible-Dose Dependent >2 , Resistant >=16 Ertapenem S <=0.5 F Susceptible <=0.5 , Intermediate >.5 , Resistant >1 Meropenem S <=0.25 F Susceptible <=1 , Intermediate >1 , Resistant >2 Ampicillin/Sulbact I 16 F Susceptible <=8 , Intermediate >8 , Resistant >16 Piperacillin/Tazoba c S <=4 F Susceptible <16 , Susceptible-Dose Dependent >=16 , Resistant >=32 Gentamicin S <=1 F Susceptible <=2 , Intermediate >2 , Resistant >=8 Tobramycin S <=1 F Susceptible <4 , Intermediate >=4 , Resistant >=8 Trimeth sulfameth R >=320 F Susceptible <=40 , Resistant >40 Ciprofloxacin S <=0.25 F Susceptible <0.5 , Intermediate >=.5 , Resistant >=1 Nitrofurantoin S <=16 F Susceptible <=32 , Intermediate >32 , Resistant >64 Abnormal [facility] Comment on above: Performed By: #### 6 30-4 ####[facility] [id number] [facility] [id number] [address] [place] CNOVon 12-29-2023 CNOV Office Visit ([facility]) ---- LUIS BARAJAS ([id number]) 5 F Date Time Provider Department 12/29/23 4:45 PM JASMIN ENRIQUEZ [facility] During your visit today, we recorded the following information about you: Temperature Pulse Respiration Blood pressure 97.3 degrees 94/minute 18/minute 129/79 Weight Last Period 58.6 kg 12/24/23 Jasmin Enriquez APRN.CNP 12/29/2023 5:06 PM Signed ASSESSMENT/PLAN: 1. Burning with urination - ICD9: 788.1, ICD10: R30.0 (primary diagnosis) acute - UA positive for maegan esterase, hematuria, and proteinuria - Send urine for culture - Begin treatment with Macrobid 100 mg BID for 5 days - Patient education for prevention given - UA DIP, URINE (POC) - URINE CULTURE - NITROFURANTOIN MONOHYDRATE AND MACROCRYSTAL 100 MG ORAL CAP 2. Otalgia of right ear - ICD9: 388.70, ICD10: H92.01 - suspect swimmers ear - OFLOXACIN 0.3 % EAR DROPS - Follow-up with your PCP in 3-5 days if symptoms have not improved or sooner if symptoms worsen - Discussed red flags and need for immediate medical evaluation if any occur. - Discussed supportive care treatment with fluids, rest and analgesia. - Discussed expected course of illness Jasmin Enriquez APRN.CNP [facility] PATIENT INFO BLADDER INFECTION OVERVIEW Bladder infections are one of the most common infections, causing symptoms of burning with urination and needing to urinate frequently. A bladder infection is a type of urinary tract infection (UTI). Bladder infections are more common is women than men. Most women have an uncomplicated bladder infection that is easily treated with a short course of antibiotics. In men, bladder infections may also affect the prostate gland, and a longer course of treatment may be needed. BLADDER INFECTION CAUSES The urinary tract includes the kidneys (which filter urine), ureters (the tube that carries urine from the kidneys to the bladder), the bladder (which stores urine), and urethra (the tube that carries urine out of the bladder). Bacteria do not normally live in these areas. However, bacteria normally live close to the urethra in women and men who are not circumcised. Bladder infections occur when bacteria travel up the urethra into the bladder. Factors that increase the risk of developing a bladder infection include: Vaginal sex Use of spermicides History of past bladder infections Diabetes In men, not being circumcised or having anal sex increase the risk of bladder infections. BLADDER INFECTION SYMPTOMS The typical symptoms of a bladder infection include: Pain or burning when urinating Frequent need to urinate Urgent need to urinate Blood in the urine Fever, back pain, nausea, or vomiting are not common symptoms of a bladder infection, but can occur in people with a kidney infection (pyelonephritis). If you have these symptoms, you should call your doctor or nurse immediately. Is it a bladder infection or something else? -- Burning with urination can also occur in people with vaginitis (eg, yeast infection) or urethritis (inflammation of the urethra). For this reason, it is important to call your healthcare provider before assuming you have a bladder infection. BLADDER INFECTION DIAGNOSIS Simple bladder infections are usually diagnosed based upon your symptoms alone. However, most patients, especially those who have bladder infection symptoms for the first time, should see a healthcare provider for urine testing. Urine culture -- A urine culture is a test that uses a sample of urine to try and grow bacteria in a laboratory. It usually requires about 48 hours to get results. However, a urine culture is not always required to diagnose a bladder infection. Urine culture is often recommended if: You have never had a bladder infection before You have symptoms that are not typical for bladder infection You have had resistant bladder infections before You have frequent bladder infections You do not begin to feel better within 24 to 48 hours after starting antibiotics You are BLADDER INFECTION TREATMENT Bladder infection -- In young, healthy adolescents and adults with a bladder infection, the usual treatment includes a three to seven day course of antibiotics. The typical drugs chosen are: trimethoprim-sulfam ethoxazole (Bactrim?), nitrofurantoin (Macrobid?), ciprofloxacin (Cipro?) or levofloxacin (Levaquin?). In men, the infection may involve your prostate gland and treatment is usually given for at least 7 days. Your symptoms should begin to resolve within one day after starting treatment. It is important to take the full course of antibiotics to completely eliminate the infection. If your symptoms persist for more than two or three days after starting treatment, call your healthcare provider. If needed, you can take a prescription medicatio (more content not included)... Normal [facility] UA DIP, URINE (POC)on 2023 BILIRUBIN UA (POCT) Negative Negative [facility] CLARITY UA (POCT) Slightly Cloudy Cl [facility] COLOR UA (POCT) Yellow [facility] GLUCOSE UA (POCT) Negative Negative mg/dL [facility] Hemoglobin Ql (U) Large Abnormal Negative [facility] Interpretation and review of laboratory results Abnormal [facility] KETONE UA (POCT) Negative Negative mg/dL [facility] LEUKOCYTES UA (POCT) Moderate Abnormal Negative [facility] NITRITE UA (POCT) Negative Negative [facility] PH UA (POCT) 7.0 4.5 - 8.0 [facility] Protein Ql (U) 30 mg/dL Abnormal Negative [facility] SPECIFIC GRAVITY UA (POCT) 1.020 1.005 - 1.030 [facility] UROBILINOGEN UA (POCT) 0.2 Normal E.U./d L [facility] Location:[address], [place], [place], [id number] [place] [address] POINT OF CARE [facility] - Chemistry and C hemistry - challengeOrdered By: Leny Ruano on 12-24-2023 HCG ( test) Ql (U) Negative [facility] Comment on above: Very dilute urine sp ecimens, as indicated by a low specificgravity, may not contain senior customer service representative levels of hCG. If is still suspected, a first morning urinespecimen should be collected 48 hours later and tested. Absolute lymphocyte countOrd ered By: Alexis Farfan on 11-14-2023 Lymphocytes Auto (Unsp spec) [#/Vol] 2.23 10*3/uL 0.83-4.51 [facility] Automated lymphocyte count a s percentage of total leukocytesOrdered By: Alexis Farfan on 11-14-2023 Lymphocytes/100 WBC Auto (Unsp spec) 27.1 % 25-45 [facility] Basophil percentageOrdered B y: Alexis Farfan on 11-14-2023 Basophils/100 WBC (Bld) 0.7 % 0-1 [facility] Chloride [Moles/Vol] 110 mmol/L 98-107 [facility] Eosinophils/100 WBC (Bld) 1.7 % 0-3 [facility] Glucose [Mass/Vol] 82 mg/dL 74-106 [facility] Hemoglobin (Bld) [Mass/Vol] 12.3 g/dL 12.0-15.0 [facility] Monocytes/100 WBC (Bld) 5.1 % 3-6 [facility] Neutrophils (Bld) [#/Vol] 5.4 10*3/uL 2.0-7.7 [facility] Neutrophils/100 WBC (Bld) 65.2 % 34-64 [facility] Potassium [Moles/Vol] 3.9 mmol/L 3.5-5.1 [facility] Sodium [Moles/Vol] 140 mmol/L 136-145 [facility] WBC (Bld) [#/Vol] 8.2 10*3/uL 4.5-13.0 [facility] Basophil percentageOrdered B y: Lexie Giovanna on 11-14-2023 Basophil percentage 25-50 SEEN /hpf 0-5 [facility] Bilirubin Test strip Ql (U)O rdered By: Lexie Giovanna on 11-14-2023 Bilirubin Ql (U) Negative Negative [facility] CNOVon 11-14-2023 CNOV Office Visit ([facility]) ---- LUIS BARAJAS ([id number]) 5 F Date Time Provider Department 11/14/23 12:15 PM [facility] During your visit today, we recorded the following information about you: Temperature Pulse Respiration Blood pressure 97.5 degrees 74/minute 21/minute 120/62 Weight 60.9 kg Loni Escobar APRN.SOIL EXPERT 11/14/2023 12:51 PM Signed Complaints of severe right flank pain. Patient says she has passed 2 hard Hurt objects through her urethra. Patient says she feels like she is unable to void there is something and they are blocking her from voiding. Patient says the pain is unbearable on and off. At this time patient does not have any history of kidney stones. But due to patient's pain level and inability to urinate appropriately patient is being sent to the ER for full evaluation mother was okay with this care plan. Allergies As of Date: 11/14/2023 (No Known Allergies) Date Reviewed: 11/14/2023 Reviewed by: Brigette Rincon MA - Fully Assessed Reason for Visit: Urinary Problem [252] Cmt: Possible uti/kidney stones x 2 days Primary Visit Diagnosis:Pain in pelvis [R10.2] Other Visit Diagnosis:Flank pain [R10.9] Order(s):UA DIP, URINE (POC) [[id number]] Order #: [id number]. #:[id number] Prescriptions as of 11/14/2023 - cabergoline (DOSTINEX) 0.5 mg tablet - Cholecalciferol, Vitamin D3, 25 mcg (1,000 unit) cap - FLOVENT HFA 44 mcg/actuation inhaler - metFORMIN ER (GLUCOPHAGE XR) 500 mg 24 hr tablet - loratadine (CLARITIN ORAL) Take by mouth. - melatonin 1 mg tablet Take by mouth. - albuterol HFA (PROVENTIL HFA, VENTOLIN HFA) 90 mcg/actuation inhaler Inhale 2 Puffs as instructed. - ibuprofen (MOTRIN) 600 mg tablet Take 1 tablet by mouth every 6 hours as needed for Pain. - PULMICORT 0.5 MG/2 ML NEB SOLUTION use 1-2X daily - ACCUNEB 0.63 MG/3 ML SOLN FOR INHALATION 1-4X daily Problem List As Of Date 11/14/2023 Noted Resolved ROUTINE CHILD HEALTH EXAM [Z00.129] 11/20/2006 CHRON OBST ASTHMA UNSPECIFIED [J44.89] 11/20/2006 OBESITY [E66.9] 11/20/2006 Encounter Status:Closed by LONI ESCOBAR on 11/14/23 Normal [facility] Culture, urineOrdered By: Daryl Farfan on 11-14-2023 Bacteria identified Cx Nom (U) Presumptive E. coli [facility] Determination of erythrocyte mean corpuscular volume (MCV)Ordered By: Alexis Farfan on 11-14-2023 MCV (RBC) [Entitic vol] 87.9 fL 78-96 [facility] Erythrocyte distribution wid th ratioOrdered By: Alexis Farfan on 11-14-2023 Erythrocyte distribution width (RBC) [Ratio] 12.0 % 11.6-14.6 [facility] Erythrocyte distribution wid th standard deviationOrdered By: Alexissultana Farfan on 11-14-2023 Erythrocyte distribution width (RBC) [Entitic vol] 39.1 fL 35.1-43.9 [facility] Hematocrit Auto (Bld) [Volum e fraction]Ordered By: Alexis Farfan on 11-14-2023 Hematocrit (Bld) [Volume fraction] 38.6 % 37-46 [facility] Immature granulocytes/100 WB C Auto (Bld)Ordered By: Alexissultana Farfan on 11-14-2023 Immature granulocytes/100 WBC (Bld) 0.200 % 0.0-0.9 [facility] Comment on above: IG% - Immature Granu locytes (promyelocytes, myelocytes and metamyelocytes) > 1% indicates that a LEFT SHIFT is Present. Ketones Test strip Ql (U)Ord ered By: Lexie Heredia on 11-14-2023 Ketones Ql (U) 5 mg/dl Negative [facility] - Chemistry and C hemistry - challengeOrdered By: Alexis Farfan on 11-14-2023 CO2 [Moles/Vol] 26.0 mmol/L 21.0-32.0 [facility] Urea nitrogen/Creatinine [Mass ratio] 15.0 mg/mg 10-20 [facility] - Hematology and Cell countsOrdered By: Alexis Farfan on 11-14-2023 MCH (RBC) [Entitic mass] 28.0 pg 25.0-35.0 [facility] MCHC (RBC) [Mass/Vol] 31.9 g/dL 32-36 [facility] Nucleated RBC/100 WBC (Bld) [Ratio] 0 % 0-5 [facility] Platelet mean volume (Bld) [Entitic vol] 9.8 fL 6.2-12.0 [facility] Platelets (Bld) [#/Vol] 298 10*3/uL 150-450 [facility] Mucus LM Ql (Urine sed)Order ed By: Lexie Heredia on 11-14-2023 Mucus Ql (Urine sed) 0 SEEN /hpf [facility] Nitrite Test strip Ql (U)Ord ered By: Lexie Heredia on 11-14-2023 Nitrite Ql (U) Positive Negative [facility] No Panel InformationOrdered By: Alexis Farfan on 11-14-2023 Estimated Creatinine Clearance Calc 102.62 ml/min [facility] Estimated GFR (MDRD) Amer 120 mL/min >60 [facility] Comment on above: GFR Calc Estimated GFR (MDRD) Non-Af Amer 99 mL/min >60 [facility] Comment on above: Non- GFR Calc No Panel InformationOrdered By: Lexie Heredia on 11-14-2023 Urine RBC 0-5 SEEN /hpf 0-5 [facility] Protein Test strip Ql (U)Ord ered By: Lexie Heredia on 11-14-2023 Protein Ql (U) 30 mg/dl Negative [facility] RBC Auto (Bld) [#/Vol]Ordere d By: Alexis Farfan on 11-14-2023 RBC (Bld) [#/Vol] 4.39 10*6/uL 4.1-4.8 [email or web address] er [facility] Serum or plasma calcium vel urement (mass/volume)Ordered By: Alexis Farfan on 11-14-2023 Calcium [Mass/Vol] 8.8 mg/dL 8.5-10.1 [facility] r [facility] Serum or plasma choriogonado tropin detectionOrdered By: Alexis Farfan on 11-14-2023 HCG ( test) Ql Negative [facility] Serum or plasma creatinine m easurement (mass/volume)Ordered By: Alexis Farfan on 11-14-2023 Creatinine [Mass/Vol] 0.80 mg/dL 0.55-1.02 [facility] Comment on above: The validity of the calculated GFR & GFRAA in patients over 70 years has not been determined. Clinical correlation is essential. Serum or plasma urea nitroge n measurement (mass/volume)Ordered By: Alexis Farfan on 11-14-2023 Urea nitrogen [Mass/Vol] 12 mg/dL 7-18 [facility] Squamous epithelial cells de tection in urine sediment by light microscopyOrdered By: Lexie Heredia on 11-14-2023 Epithelial cells.squamous LM Ql (Urine sed) 0-5 SEEN /hpf 5-10 [facility] Thin prep Papanicolaou smear with manual screeningOrdered By: Alexis Farfan on 11-14-2023 Thin prep Papanicolaou smear with manual screening 4 5-15 [facility] UA DIP, URINE (POC)on 2023 BILIRUBIN UA (POCT) Negative Negative [facility] CLARITY UA (POCT) Slightly Cloudy Cl [facility] COLOR UA (POCT) Yellow [facility] GLUCOSE UA (POCT) Negative Negative mg/dL [facility] Hemoglobin Ql (U) Trace-intact Abnormal Negative [facility] KETONE UA (POCT) Trace Negative mg/dL [facility] LEUKOCYTES UA (POCT) Small Abnormal Negative [facility] NITRITE UA (POCT) Positive Abnormal Negative [facility] PH UA (POCT) 6.0 4.5 - 8.0 [facility] Protein Ql (U) 30 mg/dL Abnormal Negative mg/dL [facility] SPECIFIC GRAVITY UA (POCT) 1.025 1.005 - 1.030 [facility] UROBILINOGEN UA (POCT) 1.0 E.U./dL Normal E.U./ dL [facility] Urine blood detectionOrdered By: Lexie Heredia on 11-14-2023 RBC Ql (U) 25 /ul Negative [facility] Urine clarityOrdered By: Alexa Heredia on 11-14-2023 Clarity (U) Sl. Cloudy Clear [facility] Urine color determinationOrd ered By: Lexie Heredia on 11-14-2023 Color (U) Yellow Yellow [facility] Urine glucose detectionOrder ed By: Lexie Heredia on 11-14-2023 Glucose Ql (U) Normal mg/dl Normal [facility] Urine leukocyte esterase det ection by dipstickOrdered By: Lexie Heredia on 11-14-2023 Leukocyte esterase Test strip Ql (U) 500 /ul Negative [facility] Urine pHOrdered By: Lexie watts on 11-14-2023 pH (U) 6.5 [pH] 5.0 - 8.0 [facility] Urine sediment bacteria coun t by microscopy (number/high power field)Ordered By: Lexie Heredia on 11-14-2023 Bacteria LM.HPF (Urine sed) [#/Area] 2 /[HPF] None Seen [facility] Urine specific gravity measu rementOrdered By: Lexie Heredia on 11-14-2023 Specific gravity (U) [Rel density] 1.015 1.002-1.030 [facility] Urine urobilinogen measureme ntOrdered By: Lexie Heredia on 11-14-2023 Urobilinogen Ql (U) 1 mg/dl Normal [facility] CNPNon 10-31-2023 [facility] LUIS BARAJAS ([id number]) 5 F Date Time Provider Department 10/31/23 MOE SIMONS [facility] During your visit today, we recorded the following information about you: Moe Simons MD 10/31/2023 1:43 PM Signed Vaginal swab was positive for yeast. Diflucan prescribed at the visit should help with this. Urine culture is pending; continue nitrofurantoin. Stefany Olivo MA 10/31/2023 1:58 PM Signed left message with mom to return call. MAURO Romero M Robin, RN 11/02/2023 2:15 PM Signed Pt returned call and given provider's message below with verbalized understanding. Allergies As of Date: 10/31/2023 (No Known Allergies) Date Reviewed: 10/30/2023 Reviewed by: Annel Torres MA - Fully Assessed Reason for Visit: Results [95] Cmt: Prince + Prescriptions as of 11/02/2023 - cabergoline (DOSTINEX) 0.5 mg tablet - Cholecalciferol, Vitamin D3, 25 mcg (1,000 unit) cap - FLOVENT HFA 44 mcg/actuation inhaler - metFORMIN ER (GLUCOPHAGE XR) 500 mg 24 hr tablet - nitrofurantoin monohydrate and macrocrystal (MACROBID) 100 mg capsule Take 1 capsule by mouth two times a day for 5 days. - loratadine (CLARITIN ORAL) Take by mouth. - melatonin 1 mg tablet Take by mouth. - albuterol HFA (PROVENTIL HFA, VENTOLIN HFA) 90 mcg/actuation inhaler Inhale 2 Puffs as instructed. - ibuprofen (MOTRIN) 600 mg tablet Take 1 tablet by mouth every 6 hours as needed for Pain. - PULMICORT 0.5 MG/2 ML NEB SOLUTION use 1-2X daily - ACCUNEB 0.63 MG/3 ML SOLN FOR INHALATION 1-4X daily Problem List As Of Date 10/31/2023 Noted Resolved ROUTINE CHILD HEALTH EXAM [Z00.129] 11/20/2006 CHRON OBST ASTHMA UNSPECIFIED [J44.89] 11/20/2006 OBESITY [E66.9] 11/20/2006 Encounter Status:Closed by Ariane DAVIS on 11/02/23 Normal [facility] BACTERIAL VAGINOSIS NAATon 0 10-30-2023 Lactobacillus crispatus+gasseri+jense javier + Gardnerella vaginalis + Atopobium vaginae rRNA JAIRON+probe Ql (Vag fld) Negative Normal Negative for bacterial vaginosis [facility] Comment on above: Order Comment: Speci men Type: SWABOrdering Facility: [facility] Address: [address] [place], [place] [id number] Performed By: #### B VAMP, CVTV ####[facility] LABCLIA [id number] [place] [id number] [place] Bacteria Ur Culton 4 Bacteria identified Cx Nom (U) ORGANISM ID: 1 >=100,000 CFU/ml Escherichia coli ORGANISM ID: 1 (ESCHERICHIA COLI) ANTIBIOTIC INTERPRETATION [place] STATUS REFERENCE RANGE Ampicillin R >=32 F Susceptible <=8 , Intermediate >8 , Resistant >16 Cefazolin S <=4 F Susceptible 0-16 , Intermediate <0 or >16 , Resistant >16 For uncomplicated urinary tract infections, cefazolin results can be used to predict susceptibility or resistance to cephalexin. Ceftriaxone S <=1 F Susceptible <=1 , Intermediate >1 , Resistant >=4 Cefepime S <=1 F Susceptible <=2 , Susceptible-Dose Dependent >2 , Resistant >=16 Ertapenem S <=0.5 F Susceptible <=0.5 , Intermediate >.5 , Resistant >1 Meropenem S <=0.25 F Susceptible <=1 , Intermediate >1 , Resistant >2 Ampicillin/Sulbact I 16 F Susceptible <=8 , Intermediate >8 , Resistant >16 Piperacillin/Tazoba c S <=4 F Susceptible <=16 , Intermediate >16 , Resistant >64 Gentamicin S <=1 F Susceptible <=4 , Intermediate >4 , Resistant >8 Tobramycin S <=1 F Susceptible <=4 , Intermediate >4 , Resistant >8 Trimeth sulfameth R >=320 F Susceptible <=40 , Resistant >40 Ciprofloxacin S <=0.25 F Susceptible <0.5 , Intermediate >=.5 , Resistant >=1 Nitrofurantoin S <=16 F Susceptible <=32 , Intermediate >32 , Resistant >64 Abnormal [facility] Comment on above: Performed By: #### 6 30-4 ####[facility] LABCLIA [id number] [address] [place] PRINCE/TRICHOMONAS NAATon 0 10-30-2023 C. glabrata RNA JAIRON+probe Ql (Vag fld) Negative Normal Negative for Prince glabrata [facility] Comment on above: Order Comment: Speci men Type: SWABOrdering Facility: [facility] Address: [address] [place] [address] Performed By: #### B VAMP, CVTV ####[facility] LABCLIA [id number] [address] [place] Prince sp DNA JAIRON+probe Ql (Vag fld) Positive Abnormal Negative for Prince species [facility] Comment on above: Order Comment: Speci men Type: SWABOrdering Facility: [facility] Address: [address] [place] [address] Performed By: #### Narda VAMP, CVTV ####[facility] LABCLIA [id number] [address] [place] T. vaginalis DNA JAIRON+probe Ql (Unsp spec) Negative Normal Negative for Trichomonas vaginalis by amplification [facility] Comment on above: Order Comment: Speci men Type: SWABOrdering Facility: [facility] Address: [address] [place] [address] Performed By: #### Narda VAMP, CVTV ####[facility] LABCLIA [id number] [place] [address] [place] CNOVon 10-30-2023 CNOV Office Visit ([facility]) ---- LUIS BARAJAS ([id number]) 5 F Date Time Provider Department 10/30/23 4:15 PM [facility] During your visit today, we recorded the following information about you: Temperature Pulse Respiration Blood pressure 97.8 degrees 102/minute 18/minute 114/74 Weight Last Period 58.8 kg 10/19/23 Lillian Sanchez APRN.SOIL EXPERT 10/30/2023 4:18 PM Signed This note was created using Media Ingenuity[employer]. Subjective Luis Barajas is a 18 year old female. 18 year old female with PMH asthma presents for complaints. Acute onset of symptoms was 3 days ago +burning +frequency +urgency +suprapubic pressure Denies flank pain Denies fever or chills Denies vaginal discharge. Denies vaginal bleeding LMP-irregular, last week Denies sexual activity Endorses this feels similar to prior UTI's The history is provided by the patient. No science interpreter was used. UTI This is a new problem. The current episode started more than 2 days ago. The problem occurs every urination. The problem has been gradually worsening. The quality of the pain is described as burning. The pain is at a severity of 5/10. There has been no fever. She is Not sexually active. There is No history of pyelonephritis. Associated symptoms include frequency. Pertinent negatives include no chills, no sweats, no nausea, no vomiting, no discharge, no hematuria, no hesitancy, no possible , no urgency and no flank pain. She has tried nothing for the symptoms. Her past medical history does not include kidney stones, single kidney, urological procedure, recurrent UTIs, urinary stasis or catheterization. No past medical history on file. No past surgical history on file. ALLERGIES Patient has no known allergies. MEDICATIONS cabergoline (DOSTINEX) 0.5 mg tablet Cholecalciferol, Vitamin D3, 25 mcg (1,000 unit) cap FLOVENT HFA 44 mcg/actuation inhaler metFORMIN ER (GLUCOPHAGE XR) 500 mg 24 hr tablet loratadine (CLARITIN ORAL) Take by mouth. melatonin 1 mg tablet Take by mouth. albuterol HFA (PROVENTIL HFA, VENTOLIN HFA) 90 mcg/actuation inhaler Inhale 2 Puffs as instructed. ibuprofen (MOTRIN) 600 mg tablet Take 1 tablet by mouth every 6 hours as needed for Pain. nitrofurantoin monohydrate and macrocrystal (MACROBID) 100 mg capsule Take 1 capsule by mouth two times a day for 5 days. fluconazole (DIFLUCAN) 150 mg tablet Take 1 tablet by mouth once daily for 1 day. PULMICORT 0.5 MG/2 ML NEB SOLUTION use [...] Never Vaping Use Vaping Use: Never used Review of Systems Constitutional: Negative for chills. Eyes: Negative for pain, discharge, redness and itching. Respiratory: Negative for apnea, cough, choking, chest tightness and shortness of breath. Cardiovascular: Negative for chest pain, palpitations and leg swelling. Gastrointestinal: Negative for abdominal pain, nausea and vomiting. Genitourinary: Positive for dysuria and frequency. Negative for flank pain, hematuria, hesitancy and urgency. Skin: Negative for color change, pallor, rash and wound. Allergic/Immunologi c: Negative for environmental allergies, food allergies and immunocompromised state. Neurological: Negative for dizziness, seizures, facial asymmetry, light-headedness, numbness and headaches. Hematological: Negative for adenopathy. Does not bruise/bleed easily. Psychiatric/Behavio ral: Negative for agitation and behavioral problems. Objective LMP 05/11/2022 BP 114/74 Pulse 102 Temp 36.6 ?C (97.8 ?F) Resp 18 Wt 58.8 kg (129 lb 10.1 oz) LMP 10/19/2023 (Within Days) SpO2 99% Physical Exam Vitals and nursing note reviewed. Constitutional: General: She is not in acute distress. Appearance: Normal appearance. She is normal weight. She is not ill-appearing, toxic-appearing or diaphoretic. HENT: Head: Normocephalic and atraumatic. Right Ear: Ear canal and external ear normal. Left Ear: Ear canal and external ear normal. Nose: Nose normal. No congestion or rhinorrhea. Mouth/Throat: Mouth: Mucous membranes are moist. Pharynx: No oropharyngeal exudate or posterior oropharyngeal erythema. Eyes: General: Right eye: No discharge. Left eye: No discharge. Extraocular Movements: Extraocular movements intact. Conjunctiva/sclera: Conjunctivae normal. Pupils: Pupils are equal, round, and reactive to light. Cardiovascular: Rate and Rhythm: Normal rate and regular rhythm. Pulses: Normal pulses. Heart sounds: Normal heart sounds. No murmur heard. No friction (more content not included)... Normal [facility] UA DIP, URINE (POC)on 2023 BILIRUBIN UA (POCT) Negative Negative [facility] CLARITY UA (POCT) Clear [facility] COLOR UA (POCT) Dark yellow [facility] GLUCOSE UA (POCT) Negative Negative mg/dL [facility] Hemoglobin Ql (U) Moderate Abnormal Negative [facility] KETONE UA (POCT) Negative Negative mg/dL [facility] LEUKOCYTES UA (POCT) Trace Abnormal Negative [facility] NITRITE UA (POCT) Negative Negative [facility] PH UA (POCT) 5.5 4.5 - 8.0 [facility] Protein Ql (U) 100 mg/dL Abnormal Negative mg/dL [facility] SPECIFIC GRAVITY UA (POCT) >=1.030 1.005 - 1.030 [facility] UROBILINOGEN UA (POCT) 0.2 E.U./dL Normal E.U./ dL [facility] UA DIP, URINE (POC)on 2022 BILIRUBIN UA (POCT) Negative Negative [facility] CLARITY UA (POCT) Clear [facility] COLOR UA (POCT) Yellow [facility] GLUCOSE UA (POCT) Negative Negative mg/dL [facility] Hemoglobin Ql (U) Negative Negative [facility] KETONE UA (POCT) Negative Negative mg/dL [facility] LEUKOCYTES UA (POCT) Trace Abnormal Negative [facility] NITRITE UA (POCT) Negative Negative [facility] PH UA (POCT) 6.5 4.5 - 8.0 [facility] Protein Ql (U) Negative Negative mg/dL [facility] SPECIFIC GRAVITY UA (POCT) 1.010 1.005 - 1.030 [facility] UROBILINOGEN UA (POCT) 1.0 E.U./dL Normal E.U./ dL [facility] Absolute lymphocyte countOrd ered By: ED PROVIDER on 07-04-2023 Lymphocytes Auto (Unsp spec) [#/Vol] 2.21 10*3/uL 0.83-4.51 [facility] Basophil percentageOrdered B y: ED PROVIDER on 07-04-2023 Basophils/100 WBC (Bld) 0.7 % 0-1 [facility] Eosinophils/100 WBC (Bld) 2.6 % 0-3 [facility] Neutrophils (Bld) [#/Vol] 4.0 10*3/uL 2.0-7.7 [facility] Neutrophils/100 WBC (Bld) 57.1 % 34-64 [facility] WBC (Bld) [#/Vol] 7.0 10*3/uL 4.5-13.0 [facility] Basophil percentageOrdered B y: Flor Seymour on 07-04-2023 Chloride [Moles/Vol] 108 mmol/L 98-107 [facility] Glucose [Mass/Vol] 79 mg/dL 74-106 [facility] Potassium [Moles/Vol] 4.3 mmol/L 3.5-5.1 [facility] Sodium [Moles/Vol] 139 mmol/L 136-145 [facility] Basophil percentage 0-5 SEEN /hpf 0-5 [facility] Beta hCG serum qualOrdered B y: Flor Seymour on 07-04-2023 Beta HCG ( test) Ql Negative [facility] Bilirubin Test strip Ql (U)O rdered By: Flor Seymour on 07-04-2023 Bilirubin Ql (U) Negative Negative [facility] Blood erythrocytes count (nu mber/volume)Ordered By: ED PROVIDER on 07-04-2023 RBC (Bld) [#/Vol] 4.54 10*6/uL 4.1-4.8 [facility] Blood hemoglobin measurement (mass/volume)Ordered By: ED PROVIDER on 07-04-2023 Hemoglobin (Bld) [Mass/Vol] 12.9 g/dL 12.0-15.0 [facility] Blood lymphocytes/100 leukoc ytesOrdered By: ED PROVIDER on 07-04-2023 Lymphocytes/100 WBC (Bld) 31.8 % 25-45 [facility] Blood monocytes/100 leukocyt esOrdered By: ED PROVIDER on 07-04-2023 Monocytes/100 WBC (Bld) 7.5 % 3-6 [facility] Blood platelet mean volumeOr dered By: ED PROVIDER on 07-04-2023 Platelet mean volume (Bld) [Entitic vol] 9.8 fL 6.2-12.0 [facility] Determination of erythrocyte mean corpuscular volume (MCV)Ordered By: ED PROVIDER on 07-04-2023 MCV (RBC) [Entitic vol] 89.0 fL 78-96 [facility] Hematocrit Auto (Bld) [Volum e fraction]Ordered By: ED PROVIDER on 07-04-2023 Hematocrit (Bld) [Volume fraction] 40.4 % 37-46 [facility] Ketones Test strip Ql (U)Ord ered By: Flor Seymour on 07-04-2023 Ketones Ql (U) 5 mg/dl Negative [facility] Laboratory - Chemistry and C hemistry - challengeOrdered By: Flor Seymour on 07-04-2023 CO2 [Moles/Vol] 29.0 mmol/L 21.0-32.0 [facility] Urea nitrogen/Creatinine [Mass ratio] 13.9 mg/mg 10-20 [facility] - Hematology and Cell countsOrdered By: ED PROVIDER on 07-04-2023 Erythrocyte distribution width (RBC) [Entitic vol] 39.5 fL 35.1-43.9 [facility] Erythrocyte distribution width (RBC) [Ratio] 12.0 % 11.6-14.6 [facility] Immature granulocytes/100 WBC (Bld) 0.300 % 0.0-0.9 [facility] Comment on above: IG% - Immature Granu locytes (promyelocytes, myelocytes and metamyelocytes) > 1% indicates that a LEFT SHIFT is Present. MCH (RBC) [Entitic mass] 28.4 pg 25.0-35.0 [facility] Nucleated RBC/100 WBC (Bld) [Ratio] 0 % 0-5 [facility] MCHC Auto (RBC) [Mass/Vol]Or dered By: ED PROVIDER on 07-04-2023 MCHC (RBC) [Mass/Vol] 31.9 g/dL 32-36 [facility] Mucus LM Ql (Urine sed)Order ed By: Flor Seymour on 07-04-2023 Mucus Ql (Urine sed) 0 SEEN /hpf [facility] Nitrite Test strip Ql (U)Ord ered By: Flor Seymour on 07-04-2023 Nitrite Ql (U) Negative Negative [facility] No Panel InformationOrdered By: Flor Seymour on 07-04-2023 Estimated Creatinine Clearance Calc 83.81 ml/min [facility] Estimated GFR (MDRD) Amer 100 mL/min >60 [facility] Comment on above: GFR Calc Estimated GFR (MDRD) Non-Af Amer 83 mL/min >60 [facility] Comment on above: Non- GFR Calc Platelets bldOrdered By: ED PROVIDER on 07-04-2023 Platelets (Bld) [#/Vol] 315 10*3/uL 150-450 [facility] Protein Test strip Ql (U)Ord ered By: Flor Seymour on 07-04-2023 Protein Ql (U) 30 mg/dl Negative [facility] Serum or plasma calcium vel urement (mass/volume)Ordered By: Flor Seymour on 07-04-2023 Calcium [Mass/Vol] 9.2 mg/dL 8.5-10.1 [facility] Serum or plasma creatinine m easurement (mass/volume)Ordered By: Flor Seymour on 07-04-2023 Creatinine [Mass/Vol] 0.94 mg/dL 0.55-1.02 [facility] Comment on above: The validity of the calculated GFR & GFRAA in patients over 70 years has not been determined. Clinical correlation is essential. Serum or plasma urea nitroge n measurement (mass/volume)Ordered By: Flor Seymour on 07-04-2023 Urea nitrogen [Mass/Vol] 13 mg/dL 7-18 [facility] Squamous epithelial cells de tection in urine sediment by light microscopyOrdered By: Flor Seymour on 07-04-2023 Epithelial cells.squamous LM Ql (Urine sed) 0-5 SEEN /hpf 5-10 [facility] Thin prep Papanicolaou smear with manual screeningOrdered By: Flor Seymour on 07-04-2023 Thin prep Papanicolaou smear with manual screening 2 5-15 [facility] Urine blood detectionOrdered By: Flor Seymour on 07-04-2023 RBC Ql (U) 250 /ul Negative [facility] RBC Ql (U) 10-25 SEEN /hpf 0-5 [facility] Urine clarityOrdered By: Nataliia Seymour on 07-04-2023 Clarity (U) Clear Clear [facility] Urine color determinationOrd ered By: Flor Seymour on 07-04-2023 Color (U) Yellow Yellow [facility] Urine glucose detectionOrder ed By: Flor Seymour on 07-04-2023 Glucose Ql (U) Normal mg/dl Normal [facility] Urine leukocyte esterase det ection by dipstickOrdered By: Flor Seymour on 07-04-2023 Leukocyte esterase Test strip Ql (U) 100 /ul Negative [facility] Urine pHOrdered By: Flor Seymour on 07-04-2023 pH (U) 6.0 [pH] 5.0 - 8.0 [facility] Urine sediment bacteria coun t by microscopy (number/high power field)Ordered By: Flor Seymour on 07-04-2023 Bacteria LM.HPF (Urine sed) [#/Area] 0 /[HPF] None Seen [facility] Urine specific gravity measu rementOrdered By: Flor Seymour on 07-04-2023 Specific gravity (U) [Rel density] 1.015 1.002-1.030 [facility] Urobilinogen Auto test strip Ql (U)Ordered By: Flor Seymour on 07-04-2023 Urobilinogen Ql (U) 1 mg/dl Normal [facility] Culture, urineOrdered By: Payal Clements on 03-27-2023 Bacteria identified Cx Nom (U) Presumptive E. coli [facility] Basophil percentageOrdered B y: Mara Clements on 03-19-2023 Bilirubin [Mass/Vol] 0.60 mg/dL 0.20-1.00 [facility] Comment on above: For patients on eltr ombopag therapy, use of Dimension [place] TBIL is not recommended. Chloride [Moles/Vol] 106 mmol/L 98-107 [facility] Glucose [Mass/Vol] 88 mg/dL 74-106 [facility] Potassium [Moles/Vol] 3.7 mmol/L 3.5-5.1 [facility] Protein [Mass/Vol] 8.4 g/dL 6.4-8.2 [facility] Sodium [Moles/Vol] 139 mmol/L 136-145 [facility] WBC (Bld) [#/Vol] 7.3 10*3/uL 4.5-13.0 [facility] Blood erythrocytes count (nu mber/volume)Ordered By: Mara Clements on 03-19-2023 RBC (Bld) [#/Vol] 5.02 10*6/uL 4.1-4.8 [facility] Blood hemoglobin measurement (mass/volume)Ordered By: Mara Clements on 03-19-2023 Hemoglobin (Bld) [Mass/Vol] 14.5 g/dL 12.0-15.0 [facility] Blood platelet mean volumeOr dered By: Mara Clements on 03-19-2023 Platelet mean volume (Bld) [Entitic vol] 9.9 fL 6.2-12.0 [facility] Determination of erythrocyte mean corpuscular volume (MCV)Ordered By: Mara Clements on 03-19-2023 MCV (RBC) [Entitic vol] 85.5 fL 78-96 [facility] Hematocrit Auto (Bld) [Volum e fraction]Ordered By: Mara Clements on 03-19-2023 Hematocrit (Bld) [Volume fraction] 42.9 % 37-46 [facility] - Chemistry and C hemistry - challengeOrdered By: Mara Clements on 03-19-2023 ALP [Catalytic activity/Vol] 61 U/L 47-119 [facility] ALT [Catalytic activity/Vol] 13 U/L 13-56 [facility] CO2 [Moles/Vol] 22.0 mmol/L 21.0-32.0 [facility] Free T4 [Mass/Vol] 1.47 ng/dL 0.76-1.46 [facility] Globulin (S) [Mass/Vol] 4.4 g/dL 2.2-4.2 [facility] Urea nitrogen/Creatinine [Mass ratio] 14.2 mg/mg 10-20 [facility] - Hematology and Cell countsOrdered By: Mara Clements on 03-19-2023 Erythrocyte distribution width (RBC) [Entitic vol] 37.2 fL 35.1-43.9 [facility] Erythrocyte distribution width (RBC) [Ratio] 12.0 % 11.6-14.6 [facility] MCH (RBC) [Entitic mass] 28.9 pg 25.0-35.0 [facility] MCHC Auto (RBC) [Mass/Vol]Or dered By: Mara Clements on 03-19-2023 MCHC (RBC) [Mass/Vol] 33.8 g/dL 32-36 [facility] No Panel InformationOrdered By: Mara Clements on 03-19-2023 Thyroid Stimulating Hormone (TSH) 0.45 uIU/mL 0.358-3.74 [facility] Glucose 2 Hour See comment [facility] Comment on above: FASTING 90 Col: 02/22 03/15 0701 30 min GLU 190 H Col: 03/19/23 0740 60 min GLU 137 Col: 03/19/23 0810 120min GLU 72 Col: 03/19/23 0909 Androstenedione 197 ng/dL 41-262 [facility] Comment on above: Performed at: [facility] - [address] [id number] Director: Ritesh Ly MD, Phone: [phone] Estimated GFR (MDRD) [facility] Comment on above: Test not performedAf rican [place] GFR Calc Estimated GFR (MDRD) Non-Af [facility] Comment on above: Test not performedNo n- GFR Calc Follicle Stimulating Hormone 5.4 mIU/mL [facility] Comment on above: NORMAL REFERENCE RAN GES FEMALE FOLLICULAR 2.3 - 12.6 mIU/mL MID-CYCLE PEAK 5.2 - 17.5 mIU/mL LUTEAL 1.7 - 12.9 mIU/mL POST-MENOPAUSAL ON MHT 5.9 - 72.8 mIU/mL NOT ON MHT 12.7 - 132.2 mlU/mL MALE 0.7 - 10.8 mIU/mL Free Triiodothyronine (T3) pg/dL 2.9 pg/mL 2.18-3.98 [facility] Luteinizing Hormone 9.2 mIU/mL [facility] Comment on above: NORMAL REFERENCE RAN GES FEMALE FOLLICULAR 1.9 - 26.2 mIU/mL MID-CYCLE PEAK 22.8 - 76.1 mIU/mL LUTEAL 0.6 - 16.6 mIU/mL POST-MENOPAUSAL ON MHT 1.1 - 52.4 mIU/mL NOT ON MHT 8.6 - 61.8 mIU/mL MALE 1.2 - 10.6 mIU/mL Total Triiodothyronine 1.48 ng/mL 0.6-1.81 [facility] Vitamin D 25-Hydroxy 15.6 ng/mL [facility] Comment on above: Vitamin D 25(OH) Sta tus Range Deficiency <20 ng/mL (50nmol/L) Insufficiency 20 - 30 ng/mL (50 - 75 nmol/L) Sufficiency 30 - 100 ng/mL (75 - 250 nmol/L) Toxicity >100 ng/mL (>250 nmol/L) Platelets bldOrdered By: Jono Clements on 03-19-2023 Platelets (Bld) [#/Vol] 384 10*3/uL 150-450 [facility] Serum or plasma 17-hydroxypr ogesterone measurement (mass/volume)Ordered By: Mara Clements on 03-19-2023 17-Hydroxyprogesterone [Mass/Vol] 71 ng/dL . [facility] Comment on above: Arnaud Stage Female 1 0 - 82 2 11 - 98 3 11 - 155 4 18 - 230 5 20 - 265Performed at: [facility] [address] [id number] Director: Ritesh Ly MD, Phone: [phone] Serum or plasma albumin vel urement (mass/volume)Ordered By: Mara Clements on 03-19-2023 Albumin [Mass/Vol] 4.0 g/dL 3.2-5.0 [facility] Serum or plasma albumin/glob ulin mass ratioOrdered By: Mara Clements on 03-19-2023 Albumin/Globulin [Mass ratio] 0.9 {ratio} 0.9-2.4 [facility] Serum or plasma calcium vel urement (mass/volume)Ordered By: Mara Clements on 03-19-2023 Calcium [Mass/Vol] 9.5 mg/dL 8.5-10.1 [facility] Serum or plasma cortisol castro surement (mass/volume)Ordered By: Mara Clements on 03-19-2023 Cortisol [Mass/Vol] 27.10 ug/dL 3.44-22.45 [facility] Comment on above: Adult (AM) 5.27 - 22 .45 ug/dL Adult (PM) 3.44 - 16.76 ug/dLPlease note revised CORTISOL reference range effective 2019. Serum or plasma creatinine m easurement (mass/volume)Ordered By: Mara Clements on 03-19-2023 Creatinine [Mass/Vol] 0.98 mg/dL 0.55-1.02 [facility] Comment on above: The validity of the calculated GFR & GFRAA in patients over 70 years has not been determined. Clinical correlation is essential. Serum or plasma estradiol (E 2) measurement (mass/volume)Ordered By: Mara Clements on 03-19-2023 E2 [Mass/Vol] 78.0 pg/mL [facility] Comment on above: NORMAL REFERENCE RAN GES FEMALE FOLLICULAR 21.4 - 164.8 pg/mL MID-CYCLE PEAK 49.9 - 367.2 pg/mL LUTEAL 40.2 - 259.0 pg/mL POST-MENOPAUSAL ON MHT <11.0 - 462.1 pg/mL NOT ON MHT <11.0 - 58.3 pg/mL MALE <11.0 - 52.5 pg/mL NOTE:[employer] HAS CONFIRMED THE DRUG FULVETRANT (FASLODEX) MAY CAUSE FALSELY ELEVATED ESTRADIOL RESULTS WHEN USING THIS TEST METHOD. IF PATIENT IS TAKING FULVESTRANT AN ALTERNATIVE METHOD SHOULD BE USED TO DETERMINE ESTRADIOL CONCENTRATION. Serum or plasma insulin vel urement at 2 hours post 75 gm oral glucose (units/volume)Ordered By: Mara Clements on 03-19-2023 Insulin 2 Hr post 75 g glucose PO Qn See comment [facility] Comment on above: FASTING 7.3 Col: 0701 30 min INS 96.4 Col: 03/19/23 0740 60 min INS 111.7 Col: 03/19/23 0810 120min INS 19.3 Col: 03/19/23 0909 Serum or plasma prolactin me asurement (mass/volume)Ordered By: Mara Clements on 03-19-2023 Prolactin [Mass/Vol] 15.6 ng/mL [facility] Comment on above: NORMAL REFERENCE RAN GES FEMALE NON- 2.2 - 30.3 ng/mL 8.1 - 347.6 ng/mL POST-MENOPAUSAL 0.7 - 31.5 ng/mL MALE 2.5 - 17.4 ng/mL Serum or plasma urea nitroge n measurement (mass/volume)Ordered By: Mara Clements on 03-19-2023 Urea nitrogen [Mass/Vol] 14 mg/dL 7-18 [facility] Thin prep Papanicolaou smear with manual screeningOrdered By: Mara Clements on 03-19-2023 Thin prep Papanicolaou smear with manual screening 17 U/L 15-37 [facility] Thin prep Papanicolaou smear with manual screening 11 5-15 [facility] Absolute lymphocyte countOrd ered By: Dr. Seymour on 02-04-2023 Lymphocytes Auto (Unsp spec) [#/Vol] 0.69 10*3/uL 0.83-4.51 [facility] Basophil percentageOrdered B y: Dr. Seymour on 02-04-2023 Basophil percentage 5-10 SEEN /hpf 0-5 [facility] Basophils/100 WBC (Bld) 0.3 % 0-1 [facility] Chloride [Moles/Vol] 104 mmol/L 98-107 [facility] Eosinophils/100 WBC (Bld) 0.2 % 0-3 [facility] Glucose [Mass/Vol] 103 mg/dL 74-106 [facility] Comment on above: Fasting Glucose resu lt from 100 to 125 mg/dL suggests IMPAIRED HOMEOSTASIS per A.D.A. criteria. Neutrophils (Bld) [#/Vol] 16.4 10*3/uL 2.0-7.7 [facility] Neutrophils/100 WBC (Bld) 91.2 % 34-64 [facility] Potassium [Moles/Vol] 3.1 mmol/L 3.5-5.1 [facility] Sodium [Moles/Vol] 134 mmol/L 136-145 [facility] WBC (Bld) [#/Vol] 17.9 10*3/uL 4.5-13.0 [facility] Bilirubin Test strip Ql (U)O rdered By: Dr. Seymour on 02-04-2023 Bilirubin Ql (U) 1 mg/dL Negative [facility] Comment on above: COLOR OF URINE MAY A FFECT DIPSTICK RESULTS. Blood erythrocytes count (nu mber/volume)Ordered By: Dr. Seymour on 02-04-2023 RBC (Bld) [#/Vol] 4.59 10*6/uL 4.1-4.8 [facility] Blood hemoglobin measurement (mass/volume)Ordered By: Dr. Seymour on 02-04-2023 Hemoglobin (Bld) [Mass/Vol] 13.4 g/dL 12.0-15.0 [facility] Blood lymphocytes/100 leukoc ytesOrdered By: Dr. Seymour on 02-04-2023 Lymphocytes/100 WBC (Bld) 3.8 % 25-45 [facility] Blood monocytes/100 leukocyt esOrdered By: Dr. Seymour on 02-04-2023 Monocytes/100 WBC (Bld) 3.7 % 3-6 [facility] Blood platelet mean volumeOr dered By: Dr. Seymour on 02-04-2023 Platelet mean volume (Bld) [Entitic vol] 10.5 fL 6.2-12.0 [facility] Determination of erythrocyte mean corpuscular volume (MCV)Ordered By: Dr. Seymour on 02-04-2023 MCV (RBC) [Entitic vol] 84.1 fL 78-96 [facility] Hematocrit Auto (Bld) [Volum e fraction]Ordered By: Dr. Seymour on 02-04-2023 Hematocrit (Bld) [Volume fraction] 38.6 % 37-46 [facility] Influenza virus A and B and SARS-CoV-2 (COVID-19) Ag panel - Upper respiratory specimOrdered By: Flor Seymour on 02-04-2023 SARS-CoV-2 (COVID-19) RNA JAIRON+probe Ql (Resp) [facility] Influenza virus A and B and SARS-CoV-2 (COVID-19) Ag panel - Upper respiratory specimOrdered By: Dr. Seymour on 02-04-2023 SARS-CoV-2 (COVID-19) RNA JAIRON+probe Ql (Resp) [facility] Ketones Test strip Ql (U)Ord ered By: Dr. Seymour on 02-04-2023 Ketones Ql (U) 150 mg/dl Negative [facility] Comment on above: CRITICAL VALUE *HCRI TICAL VALUE VERIFIED. CALLED TO SHIVAM BOWLING02/04/23 2243 Khalif Lemus.RESULTS READ BACK BY SAME . Laboratory - Chemistry and C hemistry - challengeOrdered By: Dr. Seymour on 02-04-2023 CO2 [Moles/Vol] 21.0 mmol/L 21.0-32.0 [facility] Urea nitrogen/Creatinine [Mass ratio] 8.7 mg/mg 10-20 [facility] Laboratory - Hematology and Cell countsOrdered By: Dr. Seymour on 02-04-2023 Erythrocyte distribution width (RBC) [Entitic vol] 35.8 fL 35.1-43.9 [facility] Erythrocyte distribution width (RBC) [Ratio] 11.8 % 11.6-14.6 [facility] Immature granulocytes/100 WBC (Bld) 0.800 % 0.0-0.9 [facility] Comment on above: IG% - Immature Granu locytes (promyelocytes, myelocytes and metamyelocytes) > 1% indicates that a LEFT SHIFT is Present. MCH (RBC) [Entitic mass] 29.2 pg 25.0-35.0 [facility] Nucleated RBC/100 WBC (Bld) [Ratio] 0 % 0-5 [facility] MCHC Auto (RBC) [Mass/Vol]Or dered By: Dr. Seymour on 02-04-2023 MCHC (RBC) [Mass/Vol] 34.7 g/dL 32-36 [facility] Mucus LM Ql (Urine sed)Order ed By: Dr. Seymour on 02-04-2023 Mucus Ql (Urine sed) 0 SEEN /hpf [facility] Nitrite Test strip Ql (U)Ord ered By: Dr. Seymour on 02-04-2023 Nitrite Ql (U) Negative Negative [facility] No Panel InformationOrdered By: Dr. Seymour on 02-04-2023 Estimated Creatinine Clearance Calc 82.80 ml/min [facility] Estimated GFR (MDRD) [facility] Comment on above: Test not performedAf rican Burkinan GFR Calc Estimated GFR (MDRD) Non-Af er [facility] Comment on above: Test not performedNo n- GFR Calc Platelets bldOrdered By: Dr. Seymour on 02-04-2023 Platelets (Bld) [#/Vol] 258 10*3/uL 150-450 [facility] Protein Test strip Ql (U)Ord ered By: Dr. Seymour on 02-04-2023 Protein Ql (U) 100 mg/dl Negative [facility] S. pyogenes Ag IF Ql (Throat )Ordered By: Flor Seymour on 02-04-2023 S. pyogenes Ag IA Ql (Unsp spec) Streptococcus Group A [facility] S. pyogenes Ag IF Ql (Throat )Ordered By: Dr. Seymour on 02-04-2023 S. pyogenes Ag IA Ql (Unsp spec) Streptococcus Group A [facility] Serum or plasma calcium vel urement (mass/volume)Ordered By: Dr. Seymour on 02-04-2023 Calcium [Mass/Vol] 9.2 mg/dL 8.5-10.1 [facility] Serum or plasma creatinine m easurement (mass/volume)Ordered By: Dr. Seymour on 02-04-2023 Creatinine [Mass/Vol] 1.04 mg/dL 0.55-1.02 [facility] Comment on above: The validity of the calculated GFR & GFRAA in patients over 70 years has not been determined. Clinical correlation is essential. Serum or plasma urea nitroge n measurement (mass/volume)Ordered By: Dr. Seymour on 02-04-2023 Urea nitrogen [Mass/Vol] 9 mg/dL 7-18 [facility] Squamous epithelial cells de tection in urine sediment by light microscopyOrdered By: Dr. Seymour on 02-04-2023 Epithelial cells.squamous LM Ql (Urine sed) 0-5 SEEN /hpf 5-10 [facility] Thin prep Papanicolaou smear with manual screeningOrdered By: Dr. Seymour on 02-04-2023 Thin prep Papanicolaou smear with manual screening 9 5-15 [facility] Urine blood detectionOrdered By: Dr. Seymour on 02-04-2023 RBC Ql (U) Negative Negative [facility] RBC Ql (U) 0 SEEN /hpf 0-5 [facility] Urine clarityOrdered By: Dr. Seymour on 02-04-2023 Clarity (U) Clear Clear [facility] Urine color determinationOrd ered By: Dr. Seymour on 02-04-2023 Color (U) Yellow Yellow [facility] Urine glucose detectionOrder ed By: Dr. Seymour on 02-04-2023 Glucose Ql (U) Normal mg/dl Normal [facility] Urine leukocyte esterase det ection by dipstickOrdered By: Dr. Seymour on 02-04-2023 Leukocyte esterase Test strip Ql (U) 25 /ul Negative [facility] Urine pHOrdered By: Dr. Lesli khanna on 02-04-2023 pH (U) 6.5 [pH] 5.0 - 8.0 [facility] Urine sediment bacteria coun t by microscopy (number/high power field)Ordered By: Dr. Seymour on 02-04-2023 Bacteria LM.HPF (Urine sed) [#/Area] 1 /[HPF] None Seen [facility] Urine specific gravity measu rementOrdered By: Dr. Seymour on 02-04-2023 Specific gravity (U) [Rel density] 1.015 1.002-1.030 [facility] Urobilinogen Auto test strip Ql (U)Ordered By: Dr. Seymour on 02-04-2023 Urobilinogen Ql (U) 12 mg/dl Normal [facility] Throat specimen bacteria radha ntification by cultureOrdered By: Dr. Wolfe on 12-03-2022 Bacteria identified Cx Nom (Throat) streptococcus isolated. [facility] Culture, urineOrdered By: Dr Praveena De La Torre on 12-01-2022 Bacteria identified Cx Nom (U) Presumptive E. coli [facility] Throat specimen bacteria radha ntification by cultureOrdered By: J Luis Wolfe on 12-01-2022 Bacteria identified Cx Nom (Throat) streptococcus isolated. [facility] Absolute lymphocyte countOrd ered By: Dr. De La Torre on 11-28-2022 Lymphocytes Auto (Unsp spec) [#/Vol] 2.71 10*3/uL 0.83-4.51 [facility] Basophil percentageOrdered B y: Dr. De La Torre on 11-28-2022 Basophil percentage 25-50 SEEN /hpf 0-5 [facility] Basophils/100 WBC (Bld) 0.5 % 0-1 [facility] Chloride [Moles/Vol] 108 mmol/L 98-107 [facility] Eosinophils/100 WBC (Bld) 1.5 % 0-3 [facility] Glucose [Mass/Vol] 75 mg/dL 74-106 [facility] Neutrophils (Bld) [#/Vol] 5.8 10*3/uL 2.0-7.7 [facility] Neutrophils/100 WBC (Bld) 62.9 % 34-64 [facility] Potassium [Moles/Vol] 3.5 mmol/L 3.5-5.1 [facility] Sodium [Moles/Vol] 141 mmol/L 136-145 [facility] WBC (Bld) [#/Vol] 9.3 10*3/uL 4.5-13.0 [facility] Bilirubin Test strip Ql (U)O rdered By: Dr. De La Torre on 11-28-2022 Bilirubin Ql (U) Negative Negative [facility] Blood erythrocytes count (nu mber/volume)Ordered By: Dr. De La Torre on 11-28-2022 RBC (Bld) [#/Vol] 4.53 10*6/uL 4.1-4.8 [facility] Blood hemoglobin measurement (mass/volume)Ordered By: Dr. De La Torre on 11-28-2022 Hemoglobin (Bld) [Mass/Vol] 12.8 g/dL 12.0-15.0 [facility] Blood lymphocytes/100 leukoc ytesOrdered By: Dr. De La Torre on 11-28-2022 Lymphocytes/100 WBC (Bld) 29.3 % 25-45 [facility] Blood monocytes/100 leukocyt esOrdered By: Dr. De La Torre on 11-28-2022 Monocytes/100 WBC (Bld) 5.6 % 3-6 [facility] Blood platelet mean volumeOr dered By: Dr. De La Torre on 11-28-2022 Platelet mean volume (Bld) [Entitic vol] 9.8 fL 6.2-12.0 [facility] Culture, urineOrdered By: John De La Torre on 11-28-2022 Bacteria identified Cx Nom (U) Presumptive E. coli [facility] Determination of erythrocyte mean corpuscular volume (MCV)Ordered By: Dr. De La Torre on 11-28-2022 MCV (RBC) [Entitic vol] 86.1 fL 78-96 [facility] Hematocrit Auto (Bld) [Volum e fraction]Ordered By: Dr. De La Torre on 11-28-2022 Hematocrit (Bld) [Volume fraction] 39.0 % 37-46 [facility] Ketones Test strip Ql (U)Ord ered By: Dr. De La Torre on 11-28-2022 Ketones Ql (U) 5 mg/dl Negative [facility] Laboratory - Chemistry and C hemistry - challengeOrdered By: Dr. De La Torre on 11-28-2022 CO2 [Moles/Vol] 26.0 mmol/L 21.0-32.0 [facility] Urea nitrogen/Creatinine [Mass ratio] 12.1 mg/mg 10-20 [facility] Laboratory - Hematology and Cell countsOrdered By: Dr. De La Torre on 11-28-2022 Erythrocyte distribution width (RBC) [Entitic vol] 36.8 fL 35.1-43.9 [facility] Erythrocyte distribution width (RBC) [Ratio] 11.7 % 11.6-14.6 [facility] Immature granulocytes/100 WBC (Bld) 0.200 % 0.0-0.9 [facility] Comment on above: IG% - Immature Granu locytes (promyelocytes, myelocytes and metamyelocytes) > 1% indicates that a LEFT SHIFT is Present. MCH (RBC) [Entitic mass] 28.3 pg 25.0-35.0 [facility] Nucleated RBC/100 WBC (Bld) [Ratio] 0 % 0-5 [facility] MCHC Auto (RBC) [Mass/Vol]Or dered By: Dr. De La Torre on 11-28-2022 MCHC (RBC) [Mass/Vol] 32.8 g/dL 32-36 [facility] Mucus LM Ql (Urine sed)Order ed By: Dr. De La Torre on 11-28-2022 Mucus Ql (Urine sed) RARE /hpf [facility] Nitrite Test strip Ql (U)Ord ered By: Dr. De La Torre on 11-28-2022 Nitrite Ql (U) Negative Negative [facility] No Panel InformationOrdered By: Dr. De La Torre on 11-28-2022 Estimated Creatinine Clearance Calc 96.86 ml/min [facility] Estimated GFR (MDRD) er [facility] Comment on above: Test not performedAf rican [place] GFR Calc Estimated GFR (MDRD) Non-Af [facility] Comment on above: Test not performedNo n- GFR Calc Platelets bldOrdered By: Dr. De La Torre on 11-28-2022 Platelets (Bld) [#/Vol] 347 10*3/uL 150-450 [facility] Protein Test strip Ql (U)Ord ered By: Dr. De La Torre on 11-28-2022 Protein Ql (U) Negative Negative [facility] Serum or plasma calcium vel urement (mass/volume)Ordered By: Dr. De La Torre on 11-28-2022 Calcium [Mass/Vol] 9.3 mg/dL 8.5-10.1 [facility] Serum or plasma creatinine m easurement (mass/volume)Ordered By: Dr. De La Torre on 11-28-2022 Creatinine [Mass/Vol] 0.82 mg/dL 0.55-1.02 [facility] Comment on above: The validity of the calculated GFR & GFRAA in patients over 70 years has not been determined. Clinical correlation is essential. Serum or plasma urea nitroge n measurement (mass/volume)Ordered By: Dr. De La Torre on 11-28-2022 Urea nitrogen [Mass/Vol] 10 mg/dL 7-18 [facility] Squamous epithelial cells de tection in urine sediment by light microscopyOrdered By: Dr. De La Torre on 11-28-2022 Epithelial cells.squamous LM Ql (Urine sed) 0-5 SEEN /hpf 5-10 [facility] Thin prep Papanicolaou smear with manual screeningOrdered By: Dr. De La Torre on 11-28-2022 Thin prep Papanicolaou smear with manual screening 7 5-15 [facility] Urine blood detectionOrdered By: Dr. De La Torre on 11-28-2022 RBC Ql (U) 25 /ul Negative [facility] RBC Ql (U) 0-5 SEEN /hpf 0-5 [facility] Urine clarityOrdered By: Dr. De La Torre on 11-28-2022 Clarity (U) Sl. Cloudy Clear [facility] Urine color determinationOrd ered By: Dr. De La Torre on 11-28-2022 Color (U) Yellow Yellow [facility] Urine glucose detectionOrder ed By: Dr. De La Torre on 11-28-2022 Glucose Ql (U) Normal mg/dl Normal [facility] Urine leukocyte esterase det ection by dipstickOrdered By: Dr. De La Torre on 11-28-2022 Leukocyte esterase Test strip Ql (U) 500 /ul Negative [facility] Urine pHOrdered By: Dr. Gann ne on 11-28-2022 pH (U) 8.0 [pH] 5.0 - 8.0 [facility] Urine sediment bacteria coun t by microscopy (number/high power field)Ordered By: Dr. De La Torre on 11-28-2022 Bacteria LM.HPF (Urine sed) [#/Area] RARE /hpf None Seen [facility] Urine specific gravity measu rementOrdered By: Dr. De La Torre on 11-28-2022 Specific gravity (U) [Rel density] 1.015 1.002-1.030 [facility] Urobilinogen Auto test strip Ql (U)Ordered By: Dr. De La Torre on 11-28-2022 Urobilinogen Ql (U) Normal mg/dl Normal [facility] TSH with Reflex to T4, Freeo n 11-24-2022 TSH with reflex to T4, Free 0.823 [facility] Release to patient->Automatic [facility] Culture, urineOrdered By: Dr Praveena Clements on 11-19-2022 Bacteria identified Cx Nom (U) Mixed Gram Pos & Gram Neg Org [facility] Basophil percentageOrdered B y: Dr. Clements on 11-18-2022 Basophil percentage 5-10 SEEN /hpf 0-5 [facility] Basophil percentageOrdered B y: Teodoro Garcia on 11-18-2022 Lactate [Moles/Vol] 0.7 mmol/L 0.4-2.0 [facility] Bilirubin Test strip Ql (U)O rdered By: Dr. Clements on 11-18-2022 Bilirubin Ql (U) Negative Negative [facility] Ketones Test strip Ql (U)Ord ered By: Dr. Clements on 11-18-2022 Ketones Ql (U) Negative Negative [facility] Mucus LM Ql (Urine sed)Order ed By: Dr. Clements on 11-18-2022 Mucus Ql (Urine sed) 2+ /hpf [facility] Nitrite Test strip Ql (U)Ord ered By: Dr. Clements on 11-18-2022 Nitrite Ql (U) Negative Negative [facility] Protein Test strip Ql (U)Ord ered By: Dr. Clements on 11-18-2022 Protein Ql (U) 30 mg/dl Negative [facility] Squamous epithelial cells de tection in urine sediment by light microscopyOrdered By: Dr. Clements on 11-18-2022 Epithelial cells.squamous LM Ql (Urine sed) 0 SEEN /hpf 5-10 [facility] Urine blood detectionOrdered By: Dr. Clements on 11-18-2022 RBC Ql (U) Negative Negative [facility] RBC Ql (U) 0 SEEN /hpf 0-5 [facility] Urine clarityOrdered By: Dr. Clements on 11-18-2022 Clarity (U) Clear Clear [facility] Urine color determinationOrd ered By: Dr. Clements on 11-18-2022 Color (U) Yellow Yellow [facility] Urine glucose detectionOrder ed By: Dr. Clements on 11-18-2022 Glucose Ql (U) Normal mg/dl Normal [facility] Urine leukocyte esterase det ection by dipstickOrdered By: Dr. Clements on 11-18-2022 Leukocyte esterase Test strip Ql (U) 25 /ul Negative [facility] Urine pHOrdered By: Dr. Urvashi dutta on 11-18-2022 pH (U) 6.0 [pH] 5.0 - 8.0 [facility] Urine sediment bacteria coun t by microscopy (number/high power field)Ordered By: Dr. Clements on 11-18-2022 Bacteria LM.HPF (Urine sed) [#/Area] 1 /[HPF] None Seen [facility] Urine specific gravity measu rementOrdered By: Dr. Clements on 11-18-2022 Specific gravity (U) [Rel density] 1.020 1.002-1.030 [facility] Urobilinogen Auto test strip Ql (U)Ordered By: Dr. Clements on 11-18-2022 Urobilinogen Ql (U) 1 mg/dl Normal [facility] Absolute lymphocyte countOrd ered By: Teodoro Garcia on 11-17-2022 Lymphocytes Auto (Unsp spec) [#/Vol] 6.68 10*3/uL 0.83-4.51 [facility] Basophil percentageOrdered B y: Teodoro Garcia on 11-17-2022 Basophils/100 WBC (Bld) 0.5 % 0-1 [facility] Chloride [Moles/Vol] 108 mmol/L 98-107 [facility] Eosinophils/100 WBC (Bld) 1.4 % 0-3 [facility] Glucose [Mass/Vol] 60 mg/dL 74-106 [facility] Lactate [Moles/Vol] 3.1 mmol/L 0.4-2.0 [facility] Comment on above: Critical Result(s) C alled at: 23:35:04 11/17/2022 by: NANCY MCKAY TO SHIVAM BOWLING. Results read back by same. Neutrophils (Bld) [#/Vol] 5.5 10*3/uL 2.0-7.7 [facility] Neutrophils/100 WBC (Bld) 41.2 % 34-64 [facility] Potassium [Moles/Vol] 3.8 mmol/L 3.5-5.1 [facility] Sodium [Moles/Vol] 140 mmol/L 136-145 [facility] WBC (Bld) [#/Vol] 13.3 10*3/uL 4.5-13.0 [facility] Beta hCG serum qualOrdered B y: Dr. Clements on 11-17-2022 Beta HCG ( test) Ql Negative [facility] Blood erythrocytes count (nu mber/volume)Ordered By: Teodoro Garcia on 11-17-2022 RBC (Bld) [#/Vol] 5.17 10*6/uL 4.1-4.8 [facility] Blood hemoglobin measurement (mass/volume)Ordered By: Teodoro Garcia on 11-17-2022 Hemoglobin (Bld) [Mass/Vol] 15.0 g/dL 12.0-15.0 [facility] Blood lymphocytes/100 leukoc ytesOrdered By: Teodoro Garcia on 11-17-2022 Lymphocytes/100 WBC (Bld) 50.2 % 25-45 [facility] Blood manual differential co mment interpretation (narrative result)Ordered By: Teodoro Garcia on 11-17-2022 Manual differential comment James (Bld) [Interp] SCANNED [facility] Blood monocytes/100 leukocyt esOrdered By: Teodoro Garcia on 11-17-2022 Monocytes/100 WBC (Bld) 6.4 % 3-6 [facility] Blood platelet mean volumeOr dered By: Teodoro Garcia on 11-17-2022 Platelet mean volume (Bld) [Entitic vol] 9.6 fL 6.2-12.0 [facility] Determination of erythrocyte mean corpuscular volume (MCV)Ordered By: Teodoro Garcia on 11-17-2022 MCV (RBC) [Entitic vol] 86.3 fL 78-96 [facility] Hematocrit Auto (Bld) [Volum e fraction]Ordered By: Teodoro Garcia on 11-17-2022 Hematocrit (Bld) [Volume fraction] 44.6 % 37-46 [facility] INR in Blood by Coagulation assayOrdered By: Teodoro Garcia on 11-17-2022 INR Coag (Bld) [Relative time] 1.0 {INR} [facility] Laboratory - Chemistry and C hemistry - challengeOrdered By: Teodoro Garcia on 11-17-2022 CO2 [Moles/Vol] 27.0 mmol/L 21.0-32.0 [facility] Urea nitrogen/Creatinine [Mass ratio] 15.1 mg/mg 10-20 [facility] - CoagulationOrde red By: Teodoro Garcia on 11-17-2022 aPTT Coag (Bld) [Time] 30.9 s 24.1-36.2 [facility] PT Coag (PPP) [Time] 12.5 s 11.7-14.9 [facility] - Hematology and Cell countsOrdered By: Teodoro Garcia on 11-17-2022 Erythrocyte distribution width (RBC) [Entitic vol] 37.1 fL 35.1-43.9 [facility] Erythrocyte distribution width (RBC) [Ratio] 11.8 % 11.6-14.6 [facility] Immature granulocytes/100 WBC (Bld) 0.300 % 0.0-0.9 [facility] Comment on above: IG% - Immature Granu locytes (promyelocytes, myelocytes and metamyelocytes) > 1% indicates that a LEFT SHIFT is Present. MCH (RBC) [Entitic mass] 29.0 pg 25.0-35.0 [facility] Nucleated RBC/100 WBC (Bld) [Ratio] 0 % 0-5 [facility] MCHC Auto (RBC) [Mass/Vol]Or dered By: Teodoro Garcia on 11-17-2022 MCHC (RBC) [Mass/Vol] 33.6 g/dL 32-36 [facility] No Panel InformationOrdered By: Teodoro Garcia on 11-17-2022 Atypical Lymphocytes 1+ % [facility] Estimated GFR (MDRD) [facility] Comment on above: Test not performedAf rican [place] GFR Calc Estimated GFR (MDRD) Non-Af [facility] Comment on above: Test not performedNo n- GFR Calc Platelets bldOrdered By: Fran Garcia on 11-17-2022 Platelets (Bld) [#/Vol] 471 10*3/uL 150-450 [facility] Serum or plasma calcium vel urement (mass/volume)Ordered By: Teodoro Garcia on 11-17-2022 Calcium [Mass/Vol] 9.2 mg/dL 8.5-10.1 [facility] Serum or plasma creatinine m easurement (mass/volume)Ordered By: Teodoro Garcia on 11-17-2022 Creatinine [Mass/Vol] 0.93 mg/dL 0.55-1.02 [facility] Comment on above: The validity of the calculated GFR & GFRAA in patients over 70 years has not been determined. Clinical correlation is essential. Serum or plasma urea nitroge n measurement (mass/volume)Ordered By: Teodoro Garcia on 11-17-2022 Urea nitrogen [Mass/Vol] 14 mg/dL 7-18 [facility] Thin prep Papanicolaou smear with manual screeningOrdered By: Teodoro Garcia on 11-17-2022 Thin prep Papanicolaou smear with manual screening 5 5-15 [facility] Absolute lymphocyte countOrd ered By: Dr. Harris on 11-12-2022 Lymphocytes Auto (Unsp spec) [#/Vol] 1.06 10*3/uL 0.83-4.51 [facility] Basophil percentageOrdered B y: Dr. Harris on 11-12-2022 Basophil percentage 0 SEEN /hpf 0-5 [facility] Basophils/100 WBC (Bld) 0.4 % 0-1 [facility] Bilirubin [Mass/Vol] 0.50 mg/dL 0.20-1.00 [facility] Comment on above: For patients on eltr ombopag therapy, use of Dimension [place] TBIL is not recommended. Chloride [Moles/Vol] 110 mmol/L 98-107 [facility] Eosinophils/100 WBC (Bld) 0.2 % 0-3 [facility] Glucose [Mass/Vol] 93 mg/dL 74-106 [facility] Neutrophils (Bld) [#/Vol] 10.9 10*3/uL 2.0-7.7 [facility] Neutrophils/100 WBC (Bld) 89.5 % 34-64 [facility] Potassium [Moles/Vol] 3.9 mmol/L 3.5-5.1 [facility] Protein [Mass/Vol] 7.7 g/dL 6.4-8.2 [facility] Sodium [Moles/Vol] 141 mmol/L 136-145 [facility] WBC (Bld) [#/Vol] 12.2 10*3/uL 4.5-13.0 [facility] Beta hCG serum qualOrdered B y: Dr. Harris on 11-12-2022 Beta HCG ( test) Ql Negative [facility] Bilirubin Test strip Ql (U)O rdered By: Dr. Harris on 11-12-2022 Bilirubin Ql (U) Negative Negative [facility] Blood erythrocytes count (nu mber/volume)Ordered By: Dr. Harris on 11-12-2022 RBC (Bld) [#/Vol] 4.89 10*6/uL 4.1-4.8 [facility] [facility] Blood hemoglobin measurement (mass/volume)Ordered By: Dr. Harris on 11-12-2022 Hemoglobin (Bld) [Mass/Vol] 13.9 g/dL 12.0-15.0 [facility] Blood lymphocytes/100 leukoc ytesOrdered By: Dr. Harris on 11-12-2022 Lymphocytes/100 WBC (Bld) 8.7 % 25-45 [facility] Blood monocytes/100 leukocyt esOrdered By: Dr. Harris on 11-12-2022 Monocytes/100 WBC (Bld) 0.9 % 3-6 [facility] Blood platelet mean volumeOr dered By: Dr. Harris on 11-12-2022 Platelet mean volume (Bld) [Entitic vol] 9.9 fL 6.2-12.0 [facility] Determination of erythrocyte mean corpuscular volume (MCV)Ordered By: Dr. Harris on 11-12-2022 MCV (RBC) [Entitic vol] 88.1 fL 78-96 [facility] Direct bilirubinOrdered By: Dr. Harris on 11-12-2022 Bilirubin.direct [Mass/Vol] 0.18 mg/dL 0.00-0.30 [facility] Hematocrit Auto (Bld) [Volum e fraction]Ordered By: Dr. Harris on 11-12-2022 Hematocrit (Bld) [Volume fraction] 43.1 % 37-46 [facility] Ketones Test strip Ql (U)Ord ered By: Dr. Harris on 11-12-2022 Ketones Ql (U) Negative Negative [facility] Laboratory - Chemistry and C hemistry - challengeOrdered By: Dr. Harris on 11-12-2022 ALP [Catalytic activity/Vol] 53 U/L 47-119 [facility] ALT [Catalytic activity/Vol] 16 U/L 13-56 [facility] CO2 [Moles/Vol] 25.0 mmol/L 21.0-32.0 [facility] Globulin (S) [Mass/Vol] 3.7 g/dL 2.2-4.2 [facility] Lipase [Catalytic activity/Vol] 97 U/L 73-393 [facility] Urea nitrogen/Creatinine [Mass ratio] 14.2 mg/mg 10-20 [facility] Laboratory - Hematology and Cell countsOrdered By: Dr. Harris on 11-12-2022 Erythrocyte distribution width (RBC) [Entitic vol] 38.0 fL 35.1-43.9 [facility] Erythrocyte distribution width (RBC) [Ratio] 11.7 % 11.6-14.6 [facility] Immature granulocytes/100 WBC (Bld) 0.300 % 0.0-0.9 [facility] Comment on above: IG% - Immature Granu locytes (promyelocytes, myelocytes and metamyelocytes) > 1% indicates that a LEFT SHIFT is Present. MCH (RBC) [Entitic mass] 28.4 pg 25.0-35.0 [facility] Nucleated RBC/100 WBC (Bld) [Ratio] 0 % 0-5 [facility] MCHC Auto (RBC) [Mass/Vol]Or dered By: Dr. Harris on 11-12-2022 MCHC (RBC) [Mass/Vol] 32.3 g/dL 32-36 [facility] Mucus LM Ql (Urine sed)Order ed By: Dr. Harris on 11-12-2022 Mucus Ql (Urine sed) 0 SEEN /hpf [facility] Nitrite Test strip Ql (U)Ord ered By: Dr. Harris on 11-12-2022 Nitrite Ql (U) Negative Negative [facility] No Panel InformationOrdered By: Dr. Harris on 11-12-2022 Estimated Creatinine Clearance Calc 94.47 ml/min [facility] Estimated GFR (MDRD) [facility] Comment on above: Test not performedAf rican Burkinan GFR Calc Estimated GFR (MDRD) Non-Af [facility] Comment on above: Test not performedNo n- GFR Calc Platelets bldOrdered By: Dr. Harris on 11-12-2022 Platelets (Bld) [#/Vol] 353 10*3/uL 150-450 [facility] Protein Test strip Ql (U)Ord ered By: Dr. Harris on 11-12-2022 Protein Ql (U) 15 mg/dl Negative [facility] Serum or plasma albumin vel urement (mass/volume)Ordered By: Dr. Harris on 11-12-2022 Albumin [Mass/Vol] 4.0 g/dL 3.2-5.0 [facility] Serum or plasma albumin/glob ulin mass ratioOrdered By: Dr. Harris on 11-12-2022 Albumin/Globulin [Mass ratio] 1.1 {ratio} 0.9-2.4 [facility] Serum or plasma calcium vel urement (mass/volume)Ordered By: Dr. Harris on 11-12-2022 Calcium [Mass/Vol] 9.5 mg/dL 8.5-10.1 [facility] Serum or plasma creatinine m easurement (mass/volume)Ordered By: Dr. Harris on 11-12-2022 Creatinine [Mass/Vol] 0.91 mg/dL 0.55-1.02 [facility] Comment on above: The validity of the calculated GFR & GFRAA in patients over 70 years has not been determined. Clinical correlation is essential. Serum or plasma urea nitroge n measurement (mass/volume)Ordered By: Dr. Harris on 11-12-2022 Urea nitrogen [Mass/Vol] 13 mg/dL 7-18 [facility] Squamous epithelial cells de tection in urine sediment by light microscopyOrdered By: Dr. Harris on 11-12-2022 Epithelial cells.squamous LM Ql (Urine sed) 0 SEEN /hpf 5-10 [facility] Thin prep Papanicolaou smear with manual screeningOrdered By: Dr. Harris on 11-12-2022 Thin prep Papanicolaou smear with manual screening 18 U/L 15-37 [facility] Thin prep Papanicolaou smear with manual screening 6 5-15 [facility] Urine blood detectionOrdered By: Dr. Harris on 11-12-2022 RBC Ql (U) 150 /ul Negative [facility] RBC Ql (U) 0 SEEN /hpf 0-5 [facility] Urine clarityOrdered By: Dr. Harris on 11-12-2022 Clarity (U) Clear Clear [facility] Urine color determinationOrd ered By: Dr. Harris on 11-12-2022 Color (U) Yellow Yellow [facility] Urine glucose detectionOrder ed By: Dr. Harris on 11-12-2022 Glucose Ql (U) Normal mg/dl Normal [facility] Urine leukocyte esterase det ection by dipstickOrdered By: Dr. Harris on 11-12-2022 Leukocyte esterase Test strip Ql (U) Negative Negative [facility] Urine pHOrdered By: Dr. Carrington jones on 11-12-2022 pH (U) 7.0 [pH] 5.0 - 8.0 [facility] Urine sediment bacteria coun t by microscopy (number/high power field)Ordered By: Dr. Harris on 11-12-2022 Bacteria LM.HPF (Urine sed) [#/Area] 0 /[HPF] None Seen [facility] Urine specific gravity measu rementOrdered By: Dr. Harris on 11-12-2022 Specific gravity (U) [Rel density] 1.010 1.002-1.030 [facility] Urobilinogen Auto test strip Ql (U)Ordered By: Dr. Harris on 11-12-2022 Urobilinogen Ql (U) Normal mg/dl Normal [facility] 2019 CORONAVIRUSon 3 SARS-CoV-2 (COVID-19) RNA JAIRON+probe Ql (Resp) SARS-CoV-2 (Agent of COVID-19) Not Detected by RT-PCR or equivalent method. Not Detected [facility] Absolute lymphocyte countOrd ered By: Dr. De La Torre on 08-26-2022 Lymphocytes Auto (Unsp spec) [#/Vol] 0.76 10*3/uL 0.83-4.51 [facility] Basophil percentageOrdered B y: Dr. De La Torre on 08-26-2022 Basophils/100 WBC (Bld) 0.2 % 0-1 [facility] Bilirubin [Mass/Vol] 0.70 mg/dL 0.20-1.00 [facility] Comment on above: For patients on eltr ombopag therapy, use of Dimension [place] TBIL is not recommended. Chloride [Moles/Vol] 104 mmol/L 98-107 [facility] Eosinophils/100 WBC (Bld) 0.5 % 0-3 [facility] Glucose [Mass/Vol] 104 mg/dL 74-106 [facility] Comment on above: Fasting Glucose resu lt from 100 to 125 mg/dL suggests IMPAIRED HOMEOSTASIS per A.D.A. criteria. Neutrophils (Bld) [#/Vol] 11.0 10*3/uL 2.0-7.7 [facility] Neutrophils/100 WBC (Bld) 86.4 % 34-64 [facility] Potassium [Moles/Vol] 3.2 mmol/L 3.5-5.1 [facility] Protein [Mass/Vol] 8.4 g/dL 6.4-8.2 [facility] Sodium [Moles/Vol] 138 mmol/L 136-145 [facility] WBC (Bld) [#/Vol] 12.8 10*3/uL 4.5-13.0 [facility] Blood erythrocytes count (nu mber/volume)Ordered By: Dr. De La Torre on 08-26-2022 RBC (Bld) [#/Vol] 5.04 10*6/uL 4.1-4.8 [facility] Blood hemoglobin measurement (mass/volume)Ordered By: Dr. De La Torre on 08-26-2022 Hemoglobin (Bld) [Mass/Vol] 14.6 g/dL 12.0-15.0 [facility] Blood lymphocytes/100 leukoc ytesOrdered By: Dr. De La Torre on 08-26-2022 Lymphocytes/100 WBC (Bld) 5.9 % 25-45 [facility] Blood monocytes/100 leukocyt esOrdered By: Dr. De La Torre on 08-26-2022 Monocytes/100 WBC (Bld) 6.7 % 3-6 [facility] Blood platelet mean volumeOr dered By: Dr. De La Torre on 08-26-2022 Platelet mean volume (Bld) [Entitic vol] 9.8 fL 6.2-12.0 [facility] Determination of erythrocyte mean corpuscular volume (MCV)Ordered By: Dr. De La Torre on 08-26-2022 MCV (RBC) [Entitic vol] 85.9 fL 78-96 [facility] Hematocrit Auto (Bld) [Volum e fraction]Ordered By: Dr. De La Torre on 08-26-2022 Hematocrit (Bld) [Volume fraction] 43.3 % 37-46 [facility] Influenza virus A and B and SARS-CoV-2 (COVID-19) Ag panel - Upper respiratory specimOrdered By: Dr. De La Torre on 08-26-2022 SARS-CoV-2 (COVID-19) RNA JAIRON+probe Ql (Resp) [facility] Laboratory - Chemistry and C hemistry - challengeOrdered By: Dr. De La Torre on 08-26-2022 ALP [Catalytic activity/Vol] 67 U/L 47-119 [facility] ALT [Catalytic activity/Vol] 17 U/L 13-56 [facility] CO2 [Moles/Vol] 27.0 mmol/L 21.0-32.0 [facility] Globulin (S) [Mass/Vol] 4.4 g/dL 2.2-4.2 [facility] Urea nitrogen/Creatinine [Mass ratio] 11.1 mg/mg 10-20 [facility] Laboratory - Hematology and Cell countsOrdered By: Dr. De La Torre on 08-26-2022 Erythrocyte distribution width (RBC) [Entitic vol] 36.5 fL 35.1-43.9 [facility] Erythrocyte distribution width (RBC) [Ratio] 11.7 % 11.6-14.6 [facility] Immature granulocytes/100 WBC (Bld) 0.300 % 0.0-0.9 [facility] Comment on above: IG% - Immature Granu locytes (promyelocytes, myelocytes and metamyelocytes) > 1% indicates that a LEFT SHIFT is Present. MCH (RBC) [Entitic mass] 29.0 pg 25.0-35.0 [facility] Nucleated RBC/100 WBC (Bld) [Ratio] 0 % 0-5 [facility] MCHC Auto (RBC) [Mass/Vol]Or dered By: Dr. De La Torre on 08-26-2022 MCHC (RBC) [Mass/Vol] 33.7 g/dL 32-36 [facility] No Panel InformationOrdered By: Dr. De La Torre on 08-26-2022 Estimated Creatinine Clearance Calc 106.31 ml/min [facility] Estimated GFR (MDRD) [facility] Comment on above: Test not performedAf rican Burkinan GFR Calc Estimated GFR (MDRD) Non-Af [facility] Comment on above: Test not performedNo n- GFR Calc Platelets bldOrdered By: Dr. De La Torre on 08-26-2022 Platelets (Bld) [#/Vol] 305 10*3/uL 150-450 [facility] ROUTINE FLU A/B + RSVon FLUAV RNA JAIRON+probe Ql (Unsp spec) Negative Negative for Influenza A by RT-PCR [facility] FLUBV RNA JAIRON+probe Ql (Unsp spec) Negative Negative for Influenza B by RT-PCR [facility] RSV A RNA JAIRON+probe Ql (Unsp spec) Negative Negative for Respiratory Syncytial Virus (RSV) by PCR [facility] Serum heterophile antibody d etectionOrdered By: Dr. De La Torre on 08-26-2022 Heterophile Ab Ql (S) Negative Negative [facility] Serum or plasma albumin vel urement (mass/volume)Ordered By: Dr. De La Torre on 08-26-2022 Albumin [Mass/Vol] 4.0 g/dL 3.2-5.0 [facility] Serum or plasma albumin/glob ulin mass ratioOrdered By: Dr. De La Torre on 08-26-2022 Albumin/Globulin [Mass ratio] 0.9 {ratio} 0.9-2.4 [facility] Serum or plasma calcium vel urement (mass/volume)Ordered By: Dr. De La Torre on 08-26-2022 Calcium [Mass/Vol] 9.3 mg/dL 8.5-10.1 [facility] Serum or plasma creatinine m easurement (mass/volume)Ordered By: Dr. De La Torre on 08-26-2022 Creatinine [Mass/Vol] 0.81 mg/dL 0.55-1.02 [facility] Comment on above: The validity of the calculated GFR & GFRAA in patients over 70 years has not been determined. Clinical correlation is essential. Serum or plasma urea nitroge n measurement (mass/volume)Ordered By: Dr. De La Torre on 08-26-2022 Urea nitrogen [Mass/Vol] 9 mg/dL 7-18 [facility] Thin prep Papanicolaou smear with manual screeningOrdered By: Dr. De La Torre on 08-26-2022 Thin prep Papanicolaou smear with manual screening 17 U/L 15-37 [facility] Thin prep Papanicolaou smear with manual screening 7 5-15 [facility] STREP A MOLECULAR (POC)on Procedural Control Valid [facility] Strep A (POCT) Negative Negative [facility] UA DIP, URINE (POC)on 2021 BILIRUBIN UA (POCT) Small Abnormal Negative [facility] CLARITY U[facility] (POCT) [facility] COLOR UA (POCT) Yellow [facility] GLUCOSE UA (POCT) Negative Negative mg/dL [facility] HEMOGLOBIN/BLOOD UA (POCT) Negative Negative [facility] KETONE UA (POCT) Negative Negative mg/dL [facility] LEUKOCYTES UA (POCT) Negative Negative [facility] NITRITE UA (POCT) Negative Negative [facility] PH UA (POCT) 5.5 4.5 - 8.0 [facility] Protein Ql (U) Trace Abnormal Negative mg/dL [facility] SPECIFIC GRAVITY UA (POCT) >=1.030 1.005 - 1.030 [facility] UROBILINOGEN UA (POCT) 0.2 E.U./dL Normal E.U./ dL [facility] Influenza virus A and B and SARS-CoV-2 (COVID-19) Ag panel - Upper respiratory specim SARS-CoV-2 (COVID-19) RNA JAIRON+probe Ql (Resp) [facility] Work Phone: Vital Signs Date Time Vital Sign Value Performing Clinician Facility 01-23-2025 11:04-0400 Body temperature 98 [degF] Dr. Mitzy Fung MD Work Phone: [facility] 01-23-2025 11:04-0400 Diastolic blood pressure 71 mm[Hg] Dr. Mitzy Fung MD Work Phone: [facility] 01-23-2025 11:04-0400 Heart rate 98 /min Dr. Mitzy Fung MD Work Phone: [facility] 01-23-2025 11:04-0400 Respiratory rate 19 /min Dr. Mitzy Fung MD Work Phone: [facility] 01-23-2025 11:04-0400 SaO2% (BldA) [Mass fraction] 1 % Dr. Mitzy Fung MD Work Phone: 1(192)[phone] [place] [address] 01-23-2025 11:04-0400 Systolic blood pressure 140 mm[Hg] Dr. Mitzy Fung MD Work Phone: 8(124)199-888229 [place] [address] 01-23-2025 09:19-0400 Body height [address] Mitzy Fung MD Work Phone: 1(666)757-448829 [place] [address] 01-23-2025 09:19-0400 Body mass index (BMI) [Percentile] Per age and sex 46.5 % Dr. Mitzy Fung MD Work Phone: 2(456)020-292529 [place] [address] 01-23-2025 09:19-0400 Body mass index (BMI) [Ratio] 21.4 kg/m2 Dr. Mitzy Fung MD Work Phone: 4(695)942-767829 [place] [address] 01-23-2025 09:19-0400 Body weight 58.[address] Mitzy Fung MD Work Phone: 4(498)958-015229 [place] [address] 01-20-2025 19:00-0400 Body temperature 98 [degF] Dr. Mitzy Fung MD Work Phone: 0(571)543-122729 [place] [address] 01-20-2025 19:00-0400 Diastolic blood pressure 57 mm[Hg] Dr. Mitzy Fung MD Work Phone: 4(746)609-940529 [place] [address] 01-20-2025 19:00-0400 Heart rate 69 /min Dr. Mitzy Fung MD Work Phone: 5(930)656-383529 [place] [address] 01-20-2025 19:00-0400 Respiratory rate 18 /min Dr. Mitzy Fung MD Work Phone: 1(181)[phone] [place] [address] 01-20-2025 19:00-0400 SaO2% (BldA) [Mass fraction] 100 % Dr. Mitzy Fung MD Work Phone: 9(692)439-603929 [place] [address] 01-20-2025 19:00-0400 Systolic blood pressure 116 mm[Hg] Dr. Mitzy Fung MD Work Phone: 6(488)414-385229 [place] [address] 01-20-2025 15:24-0400 Body height 165.[address] Mitzy Fung MD Work Phone: 4(459)[phone] [place] [address] 01-20-2025 15:24-0400 Body mass index (BMI) [Percentile] Per age and sex 52.6 % Dr. Mitzy Fung MD Work Phone: [facility] 01-20-2025 15:24-0400 Body mass index (BMI) [Ratio] 21.9 kg/m2 Dr. Mitzy Fung MD Work Phone: [facility] 01-20-2025 15:24-0400 Body weight 59.[address] Mitzy Fung MD Work Phone: [facility] 08-27-2024 11:54-0500 Body mass index (BMI) [Ratio] 21.08 kg/m2 Jasmin Praisler-Wood CHIEF ACCOUNTANT.SOIL EXPERT Work Phone: [facility] 08-27-2024 11:54-0500 Body temperature 98.4 [degF] Jasmin Praisler-Wood CHIEF ACCOUNTANT.SOIL EXPERT Work Phone: [facility] 08-27-2024 11:54-0500 Body weight 57.1 kg Jasmin Praisler-Wood CHIEF ACCOUNTANT.SOIL EXPERT Work Phone: [facility] 08-27-2024 11:54-0500 Diastolic blood pressure 78 mm[Hg] Jasmin Praisler-Wood CHIEF ACCOUNTANT.SOIL EXPERT Work Phone: [facility] 08-27-2024 11:54-0500 Heart rate 106 /min Jasmin Praisler-Wood CHIEF ACCOUNTANT.SOIL EXPERT Work Phone: [facility] 08-27-2024 11:54-0500 Respiratory rate 20 /min Jasmin Praisler-Wood CHIEF ACCOUNTANT.SOIL EXPERT Work Phone: [facility] 08-27-2024 11:54-0500 SaO2% (BldA) [Mass fraction] 97 % Jasmin Praisler-Wood CHIEF ACCOUNTANT.SOIL EXPERT Work Phone: [facility] 08-27-2024 11:54-0500 Systolic blood pressure 110 mm[Hg] Jasmin Praisler-Wood CHIEF ACCOUNTANT.SOIL EXPERT Work Phone: [facility] 01-26-2024 16:26-0400 Body temperature 97.9 [degF] Martínez Moomaw CHIEF ACCOUNTANT.SOIL EXPERT Work Phone: [facility] 01-26-2024 16:26-0400 Body weight 60 kg Martínez Moomaw CHIEF ACCOUNTANT.SOIL EXPERT Work Phone: [facility] 01-26-2024 16:26-0400 Diastolic blood pressure 60 mm[Hg] Martínez Moomaw CHIEF ACCOUNTANT.SOIL EXPERT Work Phone: [facility] 01-26-2024 16:26-0400 Heart rate 80 /min Martínez Moomaw CHIEF ACCOUNTANT.SOIL EXPERT Work Phone: [facility] 01-26-2024 16:26-0400 Respiratory rate 16 /min Martínez Moomaw CHIEF ACCOUNTANT.SOIL EXPERT Work Phone: [facility] 01-26-2024 16:26-0400 SaO2% (BldA) [Mass fraction] 99 % Martínez Moomaw CHIEF ACCOUNTANT.SOIL EXPERT Work Phone: [facility] 01-26-2024 16:26-0400 Systolic blood pressure 102 mm[Hg] Martínez Moomaw CHIEF ACCOUNTANT.SOIL EXPERT Work Phone: [facility] 12-29-2023 16:49-0400 Body temperature 97.3 [degF] Jasmin Praisler-Wood CHIEF ACCOUNTANT.SOIL EXPERT Work Phone: [facility] 12-29-2023 16:49-0400 Body weight 58.6 kg Jasmin Praisler-Wood CHIEF ACCOUNTANT.SOIL EXPERT Work Phone: [facility] 12-29-2023 16:49-0400 Diastolic blood pressure 79 mm[Hg] Jasmin Praisler-Wood CHIEF ACCOUNTANT.SOIL EXPERT Work Phone: [facility] 12-29-2023 16:49-0400 Heart rate 94 /min Jasmin Praisler-Wood CHIEF ACCOUNTANT.SOIL EXPERT Work Phone: [facility] 12-29-2023 16:49-0400 Respiratory rate 18 /min Jasmin Praisler-Wood CHIEF ACCOUNTANT.SOIL EXPERT Work Phone: [facility] 12-29-2023 16:49-0400 SaO2% (BldA) [Mass fraction] 100 % Jasmin Mina CHIEF ACCOUNTANT.SOIL EXPERT Work Phone: [facility] 12-29-2023 16:49-0400 Systolic blood pressure 129 mm[Hg] Jasmin Barbara-Paulo CHIEF ACCOUNTANT.SOIL EXPERT Work Phone: [facility] 12-24-2023 09:16-0400 Body temperature 99 [degF] [facility] 12-24-2023 09:16-0400 Diastolic blood pressure 88 mm[Hg] [facility] 12-24-2023 09:16-0400 Heart rate 58 /min [facility] 12-24-2023 09:16-0400 Respiratory rate 16 /min [facility] 12-24-2023 09:16-0400 SaO2% (BldA) [Mass fraction] 100 % [facility] 12-24-2023 09:16-0400 Systolic blood pressure 121 mm[Hg] [facility] 12-24-2023 07:12-0400 Body height 165.1 cm [facility] 12-24-2023 07:12-0400 Body mass index (BMI) [Percentile] Per age and sex 46.6 % [facility] 12-24-2023 07:12-0400 Body mass index (BMI) [Ratio] 21.2 kg/m2 [facility] 12-24-2023 07:12-0400 Body weight 58 kg [facility] 11-14-2023 18:27-0400 Body temperature 98.4 [degF] [facility] 11-14-2023 18:27-0400 Diastolic blood pressure 59 mm[Hg] [facility] 11-14-2023 18:27-0400 Heart rate 77 /min [facility] 11-14-2023 18:27-0400 Respiratory rate 16 /min [facility] 11-14-2023 18:27-0400 SaO2% (BldA) [Mass fraction] 100 % [facility] 11-14-2023 18:27-0400 Systolic blood pressure 113 mm[Hg] [facility] 11-14-2023 13:07-0400 Body height 165.1 cm [facility] 11-14-2023 13:07-0400 Body mass index (BMI) [Percentile] Per age and sex 60.1 % [facility] 11-14-2023 13:07-0400 Body mass index (BMI) [Ratio] 22.3 kg/m2 [facility] 11-14-2023 13:07-0400 Body weight 60.8 kg [facility] 11-14-2023 12:40-0400 Body temperature 97.5 [degF] Loni Escobar APRN.SOIL EXPERT Work Phone: [facility] 11-14-2023 12:40-0400 Body weight 60.9 kg Loni Escobar APRN.SOIL EXPERT Work Phone: [facility] 11-14-2023 12:40-0400 Diastolic blood pressure 62 mm[Hg] Loni Escobar APRN.SOIL EXPERT Work Phone: [facility] 11-14-2023 12:40-0400 Heart rate 74 /min Loni Escobar APRN.SOIL EXPERT Work Phone: [facility] 11-14-2023 12:40-0400 Respiratory rate 21 /min Loni Escobar APRN.SOIL EXPERT Work Phone: [facility] 11-14-2023 12:40-0400 SaO2% (BldA) [Mass fraction] 99 % Loni Escobar APRN.SOIL EXPERT Work Phone: [facility] 11-14-2023 12:40-0400 Systolic blood pressure 120 mm[Hg] Loni Escobar APRN.SOIL EXPERT Work Phone: [facility] 10-30-2023 16:02-0500 Body temperature 97.81 [degF] Lillian Sanchez APRN.SOIL EXPERT Work Phone: [facility] 10-30-2023 16:02-0500 Body weight 58.8 kg Lillian Sanchez APRN.SOIL EXPERT Work Phone: [facility] 10-30-2023 16:02-0500 Diastolic blood pressure 74 mm[Hg] Lillian Sanchez CHIEF ACCOUNTANT.SOIL EXPERT Work Phone: [facility] 10-30-2023 16:02-0500 Heart rate 102 /min Lillian Sanchez CHIEF ACCOUNTANT.SOIL EXPERT Work Phone: [facility] 10-30-2023 16:02-0500 Respiratory rate 18 /min Lillian Sanchez CHIEF ACCOUNTANT.SOIL EXPERT Work Phone: [facility] 10-30-2023 16:02-0500 SaO2% (BldA) [Mass fraction] 99 % Lillian Sanchez CHIEF ACCOUNTANT.SOIL EXPERT Work Phone: [facility] 10-30-2023 16:02-0500 Systolic blood pressure 114 mm[Hg] Lillian Sanchez CHIEF ACCOUNTANT.SOIL EXPERT Work Phone: [facility] 09-25-2023 05:12-0500 Body temperature 98 [degF] [facility] 09-25-2023 05:12-0500 Diastolic blood pressure 83 mm[Hg] [facility] 09-25-2023 05:12-0500 Heart rate 72 /min [facility] 09-25-2023 05:12-0500 Respiratory rate 18 /min [facility] 09-25-2023 05:12-0500 SaO2% (BldA) [Mass fraction] 99 % [facility] 09-25-2023 05:12-0500 Systolic blood pressure 129 mm[Hg] [facility] 09-25-2023 04:30-0500 Body height 165.1 cm [facility] 09-25-2023 04:30-0500 Body mass index (BMI) [Percentile] Per age and sex 59.5 % [facility] 09-25-2023 04:30-0500 Body mass index (BMI) [Ratio] 22.2 kg/m2 [facility] 09-25-2023 04:30-0500 Body weight 60.7 kg [facility] 07-28-2023 18:54-0500 Body temperature 98.1 [degF] Ivonne Dawson CHIEF ACCOUNTANT.SOIL EXPERT Work Phone: [facility] 07-28-2023 18:54-0500 Body weight 59.78 kg Ivonne Dawson CHIEF ACCOUNTANT.SOIL EXPERT Work Phone: [facility] 07-28-2023 18:54-0500 Diastolic blood pressure 70 mm[Hg] Ivonne Dawson CHIEF ACCOUNTANT.SOIL EXPERT Work Phone: [facility] 07-28-2023 18:54-0500 Heart rate 83 /min Ivonne Dawson CHIEF ACCOUNTANT.SOIL EXPERT Work Phone: [facility] 07-28-2023 18:54-0500 Respiratory rate 16 /min Ivonne Dawson CHIEF ACCOUNTANT.SOIL EXPERT Work Phone: [facility] 07-28-2023 18:54-0500 SaO2% (BldA) [Mass fraction] 100 % Ivonne Dawson CHIEF ACCOUNTANT.SOIL EXPERT Work Phone: [facility] 07-28-2023 18:54-0500 Systolic blood pressure 102 mm[Hg] Ivonne Dawson CHIEF ACCOUNTANT.SOIL EXPERT Work Phone: [facility] 07-04-2023 09:16-0500 Body mass index (BMI) [Percentile] Per age and sex 78.9 % [facility] 07-04-2023 09:16-0500 Body mass index (BMI) [Ratio] 24.5 kg/m2 [facility] 07-04-2023 09:16-0500 Body temperature 98.2 [degF] [facility] 07-04-2023 09:16-0500 Body weight 64.7 kg [facility] 07-04-2023 09:16-0500 Diastolic blood pressure 109 mm[Hg] [facility] 07-04-2023 09:16-0500 Heart rate 114 /min [facility] 07-04-2023 09:16-0500 Respiratory rate 23 /min [facility] 07-04-2023 09:16-0500 SaO2% (BldA) [Mass fraction] 98 % [facility] 07-04-2023 09:16-0500 Systolic blood pressure 123 mm[Hg] [facility] 02-04-2023 21:31-0400 Body height 167.64 cm [facility] 02-04-2023 21:31-0400 Body mass index (BMI) [Percentile] Per age and sex 62.8 % [facility] 02-04-2023 21:31-0400 Body mass index (BMI) [Ratio] 22.3 kg/m2 [facility] 02-04-2023 21:31-0400 Body temperature 99.5 [degF] [facility] 02-04-2023 21:31-0400 Body weight 62.7 kg [facility] [facility] 21:31-0400 Diastolic blood pressure 70 mm[Hg] [facility] 02-04-2023 21:31-0400 Heart rate 108 /min [facility] 02-04-2023 21:31-0400 Respiratory rate 18 /min [facility] 02-04-2023 21:31-0400 SaO2% (BldA) [Mass fraction] 99 % [facility] 02-04-2023 21:31-0400 Systolic blood pressure 108 mm[Hg] [facility] 11-28-2022 18:28-0400 Respiratory rate 18 /min [facility] 11-28-2022 14:19-0400 Body height 162.56 cm [facility] 11-28-2022 14:19-0400 Body mass index (BMI) [Percentile] Per age and sex 63.5 % [facility] 11-28-2022 14:19-0400 Body mass index (BMI) [Ratio] 22.3 kg/m2 [facility] 11-28-2022 14:19-0400 Body temperature 98 [degF] [facility] 11-28-2022 14:19-0400 Body weight 58.96 kg [facility] 11-28-2022 14:19-0400 Diastolic blood pressure 85 mm[Hg] [facility] 11-28-2022 14:19-0400 Heart rate 96 /min [facility] 11-28-2022 14:19-0400 SaO2% (BldA) [Mass fraction] 100 % [facility] 11-28-2022 14:19-0400 Systolic blood pressure 129 mm[Hg] [facility] 11-18-2022 04:39-0400 Body temperature 98.2 [degF] [facility] 11-18-2022 04:39-0400 Diastolic blood pressure 68 mm[Hg] [facility] 11-18-2022 04:39-0400 Heart rate 79 /min [facility] 11-18-2022 04:39-0400 Respiratory rate 16 /min [facility] 11-18-2022 04:39-0400 SaO2% (BldA) [Mass fraction] 98 % [facility] 11-18-2022 04:39-0400 Systolic blood pressure 108 mm[Hg] [facility] 11-18-2022 01:45-0400 Body height 162.56 cm [facility] 11-18-2022 01:45-0400 Body mass index (BMI) [Percentile] Per age and sex 70.1 % [facility] 11-18-2022 01:45-0400 Body mass index (BMI) [Ratio] 23 kg/m2 [facility] 11-18-2022 01:45-0400 Body temperature 98.7 [degF] [facility] 11-18-2022 01:45-0400 Body weight 60.9 kg [facility] 11-18-2022 01:45-0400 Heart rate 93 /min [facility] 11-18-2022 01:45-0400 Respiratory rate 17 /min [facility] 11-18-2022 01:45-0400 SaO2% (BldA) [Mass fraction] 96 % [facility] 11-18-2022 01:41-0400 Diastolic blood pressure 65 mm[Hg] [facility] 11-18-2022 01:41-0400 Systolic blood pressure 103 mm[Hg] [facility] 11-12-2022 12:56-0400 Body temperature 96.9 [degF] [facility] 11-12-2022 12:56-0400 Diastolic blood pressure 62 mm[Hg] [facility] 11-12-2022 12:56-0400 Heart rate 74 /min [facility] 11-12-2022 12:56-0400 Respiratory rate 16 /min [facility] 11-12-2022 12:56-0400 SaO2% (BldA) [Mass fraction] 98 % [facility] 11-12-2022 12:56-0400 Systolic blood pressure 105 mm[Hg] [facility] 11-12-2022 09:49-0400 Body height 167.64 cm [facility] 11-12-2022 09:49-0400 Body mass index (BMI) [Percentile] Per age and sex 48.5 % [facility] 11-12-2022 09:49-0400 Body mass index (BMI) [Ratio] 21 kg/m2 [facility] 11-12-2022 09:49-0400 Body weight 59.2 kg [facility] 08-26-2022 11:28-0500 Respiratory rate 20 /min [facility] 08-26-2022 09:51-0500 Body height 167.64 cm [facility] Work Phone: 08-26-2022 09:51-0500 Body mass index (BMI) [Percentile] Per age and sex 58.1 % [facility] 08-26-2022 09:51-0500 Body mass index (BMI) [Ratio] 21.7 kg/m2 [facility] 08-26-2022 09:51-0500 Body temperature 97.4 [degF] [facility] 08-26-2022 09:51-0500 Body weight 61.23 kg [facility] 08-26-2022 09:51-0500 Diastolic blood pressure 86 mm[Hg] [facility] 08-26-2022 09:51-0500 Heart rate 106 /min [facility] 08-26-2022 09:51-0500 SaO2% (BldA) [Mass fraction] 99 % [facility] 08-26-2022 09:51-0500 Systolic blood pressure 121 mm[Hg] [facility] 08-25-2022 16:19-0500 Body temperature 100.09 [degF] Moe Simons MD Work Phone: [facility] 08-25-2022 16:19-0500 Body weight 58.06 kg Moe Simons MD Work Phone: [facility] 08-25-2022 16:19-0500 Diastolic blood pressure 86 mm[Hg] Moe Simons MD Work Phone: [facility] 08-25-2022 16:19-0500 Heart rate 109 /min Moe Simons MD Work Phone: [facility] 08-25-2022 16:19-0500 Respiratory rate 18 /min Moe Simons MD Work Phone: [facility] 08-25-2022 16:19-0500 SaO2% (BldA) [Mass fraction] 100 % Moe Siomns MD Work Phone: [facility] 08-25-2022 16:19-0500 Systolic blood pressure 120 mm[Hg] Moe Simons MD Work Phone: [facility] 06-24-2022 08:19-0400 Body temperature 97.9 [degF] Gus Pendlebury CHIEF ACCOUNTANT.SOIL EXPERT Work Phone: [facility] 06-24-2022 08:19-0400 Body weight 61.33 kg Gus Pendlebury CHIEF ACCOUNTANT.SOIL EXPERT Work Phone: [facility] 06-24-2022 08:19-0400 Diastolic blood pressure 76 mm[Hg] Gus Pendlebury CHIEF ACCOUNTANT.SOIL EXPERT Work Phone: [facility] 06-24-2022 08:19-0400 Heart rate 101 /min Gus Pendlebury CHIEF ACCOUNTANT.SOIL EXPERT Work Phone: [facility] 06-24-2022 08:19-0400 Respiratory rate 16 /min Gus Pendlebury CHIEF ACCOUNTANT.SOIL EXPERT Work Phone: [facility] 06-24-2022 08:19-0400 SaO2% (BldA) [Mass fraction] 98 % Gus Pendlebury CHIEF ACCOUNTANT.SOIL EXPERT Work Phone: [facility] 06-24-2022 08:19-0400 Systolic blood pressure 124 mm[Hg] [facility]F [facility]OUNT[facility].SOIL EXPERT Work Phone: [facility] 01-17-2022 13:00-0400 Body temperature 97.7 [degF] [facility] CHIEF ACCOUNTANT.SOIL EXPERT Work Phone: [facility] 01-17-2022 13:00-0400 [facility]SOIL EXP[facility] Work Phone: [facility] 01-17-2022 13:00-0400 Diastolic blood pressure 60 mm[Hg] [facility] CHIEF ACCOUNTANT.SOIL EXPERT Work Phone: [facility] 01-17-2022 13:00-0400 Heart rate 90 /min [facility] CHIEF ACCOUNTANT.SOIL EXPERT Work Phone: [facility] 01-17-2022 13:00-0400 Respiratory rate 16 /min [facility] CHIEF ACCOUNTANT.SOIL EXPERT Work Phone: [facility] 01-17-2022 13:00-0400 SaO2% (BldA) [Mass fraction] 99 % [facility] CHIEF ACCOUNTANT.SOIL EXPERT Work Phone: [facility] 01-17-2022 13:00-0400 Systolic blood pressure 114 mm[Hg] [facility] CHIEF ACCOUNTANT.SOIL EXPERT Work Phone: [facility] Encounters Encounter Date Encounter Type Care Provider Facility Start: 01-23-2025 End: 01-23-2025 Emergency department patient visit Dr. Mitzy Fung MD Work Phone: -Emergency Department Work Phone: Start: 01-20-2025 End: 01-20-2025 Emergency department patient visit Dr. Mitzy Fung MD Work Phone: -Emergency Department Work Phone: Start: 09-07-2024 End: 09-07-2024 Subsequent hospital visit by physician Lois Conde MD Work Phone: [facility] Comment on above: Weight loss; Family history of type 2 diabetes mellitus Start: 09-07-2024 End: 09-07-2024 ambulatory [facility] Start: 08-29-2024 End: 08-29-2024 ambulatory [facility] Start: 08-29-2024 End: 08-29-2024 ambulatory [facility] Facility:[facility] Start: 08-27-2024 End: 08-27-2024 ambulatory [facility] Facility:[facility] Start: 08-27-2024 End: 08-27-2024 Patient encounter procedure Jasmin Enriquez APRN.SOIL EXPERT Work Phone: [place] [facility] Comment on above: Sore throat (Primary Dx); Pharyngitis, unspecified etiology; Wheezing; Viral URI with cough; Bronchitis Start: 06-15-2024 End: 06-15-2024 [facility] Facility:[facility] Start: 04-24-2024 End: 04-26-2024 Evaluation and management of inpatient NATANAEL WATKINSSANA Facility:[id number] Start: 04-23-2024 End: 04-24-2024 Emergency department patient visit Mitzy Waller [place] Facility:[facility] Start: 04-20-2024 End: 04-20-2024 [facility] MITZY Waller [facility] Start: 2024 End: 2024 Emergency department patient visit [facility] Facility:[facility] Start: 04-12-2024 End: 04-12-2024 Emergency department patient visit [facility] Facility:[facility] Start: 03-02-2024 [facility] Facility: [facility] Start: 01-26-2024 End: 01-26-2024 ambulatory [facility] Facility:[facility] Start: 01-26-2024 End: 01-26-2024 Patient encounter procedure Martínez Lyles APRN.SOIL EXPERT Work Phone: [place] [facility] Comment on above: Ear pain, right (Tanya sadiq Dx) Start: 12-29-2023 End: 12-29-2023 ambulatory [facility] Facility:[facility] Start: 12-29-2023 End: 12-29-2023 Patient encounter procedure Jasmin Mina CHIEF ACCOUNTANT.SOIL EXPERT Work Phone: [facility] Comment on above: Burning with urinati on (Primary Dx); Otalgia of right ear Start: 12-24-2023 End: 12-24-2023 Admission to same day surgery center [facility] Start: 12-24-2023 End: 12-24-2023 ambulatory [facility] Work Phone: Start: 11-14-2023 End: 11-14-2023 Emergency department patient visit [facility] Work Phone: Start: 11-14-2023 End: 11-14-2023 ambulatory [facility] Facility:[facility] Start: 11-14-2023 End: 11-14-2023 Patient encounter procedure Loni Escobar CHIEF ACCOUNTANT.SOIL EXPERT Work Phone: [facility] Comment on above: Pain in pelvis (Prim vivien Dx); Flank pain Start: 10-31-2023 Telephone encounter Moe Vines MD Work Phone: [place] [facility] Comment on above: Results (Prince +) Start: 10-30-2023 End: 10-30-[address] [facility] Facility:[facility] Start: 10-30-2023 End: 10-30-2023 Patient encounter procedure Lillian Sanchez CHIEF ACCOUNTANT.SOIL EXPERT Work Phone: [facility] Comment on above: Dysuria (Primary Dx) Start: 09-25-2023 End: 09-25-2023 Emergency department patient visit [facility] Work Phone: Start: 08-02-2023 End: 08-02-2023 Nursing evaluation of patient and report Nurse [facility] Work Phone: [facility] Comment on above: Urinary frequency (P rimary Dx) Start: 07-30-2023 Telephone encounter Lillian ruffin CHIEF ACCOUNTANT.SOIL EXPERT Work Phone: [facility] Comment on above: Results Start: 07-28-2023 End: 07-28-2023 Patient encounter procedure Ivonne Dawson CHIEF ACCOUNTANT.SOIL EXPERT Work Phone: [facility] Comment on above: Urinary frequency (P rimary Dx) Start: 07-04-2023 End: 07-04-2023 Emergency department patient visit [facility] Work Phone: Start: 03-27-2023 End: 03-27-2023 ambulatory [facility] Work Phone: Start: 03-27-2023 End: 03-27-2023 Patient encounter procedure [facility] Work Phone: Start: 03-19-2023 End: 03-19-2023 ambulatory [facility] Work Phone: Start: 03-19-2023 End: 03-19-2023 Patient encounter procedure [facility] Work Phone: Start: 02-04-2023 End: 02-04-2023 Emergency department patient visit [facility] Start: 12-01-2022 End: 12-01-2022 Patient encounter procedure [facility] Start: 11-28-2022 End: 11-28-2022 Emergency department patient visit [facility] Start: 11-24-2022 End: 11-24-2022 Subsequent hospital visit by physician Codi Lemus CHIEF ACCOUNTANT-SOIL EXPERT Work Phone: [facility] Comment on above: Hirsutism; Irregular menses Start: 11-18-2022 End: 11-18-2022 Admission to same day surgery center [facility]Forensic Identification Specialist Start: 11-18-2022 End: 11-18-2022 ambulatory [facility] Work Phone: Start: 11-12-2022 End: 11-12-2022 Emergency department patient visit [facility]gency [facility] Start: 11-10-2022 End: 11-10-2022 ambulatory [facility] Work Phone: Start: 11-10-2022 End: 11-10-2022 Patient encounter procedure [facility]Cat Scan, [facility] Start: 08-26-2022 Telephone encounter Jasmin Clinton CHIEF ACCOUNTANT.SOIL EXPERT Work Phone: [place] [facility] Comment on above: Results Start: 08-26-2022 End: 08-26-2022 Emergency department patient visit [facility] Start: 08-25-2022 End: 08-25-2022 Patient encounter procedure Moe Simons MD Work Phone: [place] [facility] Comment on above: Sore throat (Primary Dx); Influenza-like illness Start: 06-25-2022 Telephone encounter Lillian Cameron ruffin CHIEF ACCOUNTANT.SOIL EXPERT Work Phone: [place] [facility] Comment on above: Results, Lab Start: 06-24-2022 End: 06-24-2022 Patient encounter procedure Gus Munroe CHIEF ACCOUNTANT.SOIL EXPERT Work Phone: [place] [facility] Comment on above: Urinary frequency (P rimary Dx) Start: 01-17-2022 End: 01-17-2022 Patient encounter procedure Gus Munroe CHIEF ACCOUNTANT.SOIL EXPERT Work Phone: [place] [facility] Comment on above: Abdominal pain, unsp ecified abdominal location (Primary Dx); Acute sinusitis, recurrence not specified, unspecified location Start: 11-20-2006 Patient encounter status Gus Munroe CHIEF ACCOUNTANT.SOIL EXPERT Work Phone: [facility] Work Phone: Procedures Date Procedure Procedure Detail Performing Clinician Start: 01-23-2025 Urnls dip stick/tabl et reagent auto microscopy Dr. Mitzy Fung MD Work Phone: Start: 01-20-2025 Urnls dip stick/tabl et reagent auto microscopy Dr. Mitzy Fung MD Work Phone: Start: 01-20-2025 CT of thorax, abdome n and pelvis with contrast Dr. Mitzy Fung MD Work Phone: Start: 01-20-[address] Mitzy Fung MD Work Phone: Start: 09-07-2024 Assay of gammaglobul in iga igd igg igm each Lois Conde MD Work Phone: Start: 09-07-2024 C-reactive protein Lois Conde MD Work Phone: Start: 09-07-2024 COMPLETE BLOOD COUNT WITH DIFFERENTIAL Lois Conde MD Work Phone: Start: 09-07-2024 Comprehensive metabo lic 2000 panel - Serum or Plasma Lois Conde MD Work Phone: Start: 08-27-2024 STREP A MOLECULAR (POC) Loni Escobar APRN.SOIL EXPERT Work Phone: Start: 12-29-2023 Urnls dip stick/tabl et rgnt auto w/o microscopy Senait Kraus PA-C Work Phone: Start: 12-24-2023 Pelvic examination u nder anesthesia Start: 11-14-2023 Urine culture Start: 11-14-2023 CT of abdomen and pe lvis without contrast Start: 11-14-2023 Urnls dip stick/tabl et rgnt auto w/o microscopy Lillian Sanchez CHIEF ACCOUNTANT.SOIL EXPERT Work Phone: Start: 10-30-2023 Urnls dip stick/tabl et rgnt auto w/o microscopy Jasmin Enriquez APRN.SOIL EXPERT Work Phone: Start: 07-28-2023 Urnls dip stick/tabl et rgnt auto w/o microscopy Senait Kraus PA-C Work Phone: Start: 07-04-2023 Diagnostic radiograp hy of abdomen Start: 07-04-2023 Transvaginal echography Start: 03-27-2023 Urine culture Start: 02-04-2023 SARS-CoV-2 & FLU Ant igen (Rapid) Start: 02-04-2023 Streptococcus pyogen es antigen assay Start: 12-01-2022 Bacteria identificat ion test Start: 11-28-2022 Transvaginal echography Start: 11-28-2022 Bacteria identified in Urine by Culture Start: 11-28-2022 Urine culture Start: 11-24-2022 Assay of thyroid stimulating hormone tsh Codi Lemus CHIEF ACCOUNTANT-SOIL EXPERT Work Phone: Start: 11-18-2022 Local destruction of ovary Start: 11-17-2022 Pelvic echography Start: 11-12-2022 Computed tomography of abdomen and pelvis with contrast Start: 11-10-2022 CT of face Start: 08-25-2022 2019 CORONAVIRUS Moe Simons MD Work Phone: Start: 08-25-2022 COVID, FLU A/B + RSV , ROUTINE Moe Simons MD Work Phone: Start: 08-25-2022 Iadna respiratry pro be & rev trnscr 3-5 targets Moe Simons MD Work Phone: Start: 08-25-2022 STREP A MOLECULAR (POC) Moe Simons MD Work Phone: Start: 06-24-2022 Urnls dip stick/tabl et rgnt auto w/o microscopy Gus Munroe CHIEF ACCOUNTANT.[facility] Work Phone: Bacteria identificat ion test Bacteria identified in Urine by Culture SARS-CoV-2 & FLU Ant igen (Rapid) SARS-CoV-2 & FLU Ant igen (Rapid) Urine culture Urine culture Plan of Treatment Date Care Activity Detail Author Start: 04-28-2027 Tetanus Diphtheria a nd Pertussis Vaccines (7 - Td or Tdap) Tetanus Diphtheria and Pertussis Vaccines (7 - Td or Tdap) [facility] Start: 04-28-2027 Urine microalbumin profile DTa P,Tdap,Td Vaccine (7 - Td or Tdap) [facility] Start: 01-23-2025 [facility] Start: 01-20-2025 [facility] Start: 04-24-2024 COVID-19 (2023-09 5 season) COVID-19 ( season) [facility] Start: 04-24-2024 Covid-19 Vaccine ( season) Covid-19 Vaccine () [facility] Start: 04-24-2024 Influenza vaccination C [facility] Start: 2024 Pneumococcal vaccination Pneum ococcal Vaccine (1 of 2 - PCV) [facility] Start: 03-10-2024 Well Visit Well Visit [facility] Start: 12-24-2023 Patient discharge [facility] Start: 11-14-2023 [facility] Start: 11-14-2023 Bacteria identified in Urine by Culture [facility] Start: 11-14-2023 [facility] Start: 09-25-2023 [facility] Start: 08-24-2023 Behavioral Health Screening Behavioral Health Screening [facility] Start: 08-24-2023 Depression Assessment Depression Ass essment [facility] Start: 07-30-2023 End: 10-29-2023 Bacteria identified in Urine by Culture URINE CULTURE Microbiology Routine Urinary frequency Expected: 07/30/2023, Expires: 10/29/2023 [facility] Work Phone: Comment on above: Expected: 07/30/2023 , Expires: 10/29/2023 Start: 07-04-2023 [facility] Start: 04-24-2023 Covid-19 Vaccine ( season) Covid-19 Vaccine ( season) [facility] Start: 04-24-2023 Influenza vaccination Influenza Vacc ine (#1) [facility] Start: 2023 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 Annual PCP Team Chronic Disease Visit [facility] Start: 2023 Anxiety Screening Anxiety Screening [facility] Start: 2023 Chlamydia Screening (18-24) Chlamydia Screening (18-24) [facility] Start: 2023 Depression Screening Depression Scre ening [facility] Start: 2023 GC (Gonorrhea) Scree rosa (18-24) GC (Gonorrhea) Screening (18-) [facility] Start: 2023 Hearing Screening Hearing Screening [facility] Start: 2023 Hepatitis C Screening Hepatitis C [facility] Start: 2023 Hepatitis C screening Hepatitis C [facility] Start: 2023 HIV Screening HIV Screening [facility] Start: 2023 HIV screening HIV Screening [facility] Start: 2023 PATH Education 18+ Years PATH Education 18+ Years [facility] Start: 2023 Screening for Chlamy edilia trachomatis Chlamydia Screening (18-) [facility] Start: 2023 Spirometry Spirometry [facility] Start: 11-28-2022 [facility] Start: 11-18-2022 Anesthesia intraperi toneal lower abd w/laps nos ANESTH SURG LOWER ABDOMEN [facility] Start: 11-18-2022 Laps surg w/aspir cavity/cyst single/multiple LAPAROSCOPY ASPIRATION [facility] Start: 11-18-2022 Ambulation without limitation [facility] Start: 11-18-2022 Catheterization of vein [facility] Start: 11-18-2022 Medical regimen orde rs management [facility] Start: 11-18-2022 Medication education [facility] Start: 11-18-2022 Notification of physician [facility] Start: 11-18-2022 Oxygen therapy [facility] Start: 11-18-2022 End: 11-18-2022 Patient discharge [facility] Start: 11-18-2022 Procedure discontinued [facility] Start: 11-18-2022 Taking patient vital signs [facility] Start: 11-18-2022 Vital signs measurements [facility] Start: 11-18-2022 [facility] Start: 11-18-2022 Local destruction of ovary Lap aroscopic, Ovarian Cystectomy (Right) [facility] Start: 11-18-2022 Verification routine [facility] Start: 11-18-2022 Admission procedure [facility] Start: 11-18-2022 [facility] Start: 08-26-2022 [facility] Start: 08-24-2022 Depression Assessment Depression Ass essment [facility] Start: 04-26-2022 Well Visit Well Visit [facility] Start: 04-24-2022 FLU (#1) FLU (#1) [facility] Start: 04-24-2022 Influenza vaccination INFLUENZA (#1) [facility] Start: 10-21-2021 COVID-19 VACCINE (3 - Booster for Pfizer series) COVID-19 VACCINE (3 - Booster for Pfizer series) [facility] Start: 07-17-2021 COVID-19 (3 - Booste r for Pfizer series) COVID-19 (3 - Booster for Pfizer series) [facility] Start: 07-17-2021 COVID-19 VACCINE (3 - Booster for Pfizer series) COVID-19 VACCINE (3 - Booster for Pfizer series) [facility] Start: 05-24-2021 MenB (2 of 2 - MenB 2-Dose Series Bexsero) MenB (2 of 2 - MenB 2-Dose Series Bexsero) [facility] Start: 2021 MENINGOCOCCAL CONJUG ATE (1 - 2-dose series) MENINGOCOCCAL CONJUGATE (1 - 2-dose series) [facility] Start: 2020 CHLAMYDIA SCREENING (<18) CHLA MYDIA SCREENING (<18) [facility] Start: 2020 GC (GONORRHEA) SCREE ROSA (<18) GC (GONORRHEA) SCREENING (<18) [facility] Start: 2020 Hearing Screening Hearing Screening [facility] Start: 2020 PATH Education 15-17 + Years PATH Education 15-17+ Years [facility] Start: 2020 Vision Screening Vision Screening [facility] Start: 2019 PEDS TO ADULT TRANSI TION ANNUAL ASSESSMENT PEDS TO ADULT TRANSITION ANNUAL ASSESSMENT [facility] Start: 2017 Adult depression scr eening assessment DEPRESSION SCREENING [facility] Start: 2017 PATH Education 12-14 + Years PATH Education 12-14+ Years [facility] Start: 2017 PATH Transitional Assessment PATH Transitional Assessment [facility] Start: 2017 PEDS TO ADULT TRANSI TION INITIAL DISCUSSION PEDS TO ADULT TRANSITION INITIAL DISCUSSION [facility] Start: 2016 HPV VACCINE (1 - 2-d ose series) HPV VACCINE (1 - 2-dose series) [facility] Start: 2015 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 (1 of 2 - Risk Bexsero 2-dose series) MENINGOCOCCAL B: Consider based on risk (1 of 2 - Risk Bexsero 2-dose series) [facility] Start: 2012 Urine microalbumin profile DTAP,TDAP ,TD (4 - Tdap) [facility] Start: 2011 PNEUMOCOCCAL (1 - PPSV23) PNEU MOCOCCAL (1 - PPSV23) [facility] Start: 2011 Pneumococcal vaccination [facility] Start: 2009 ASTHMA CONTROL TEST ASTHMA CONTROL T EST [facility] Start: 2009 MMR (2 of 2 - Standa rd series) MMR (2 of 2 - Standard series) [facility] Start: 2009 VARICELLA (2 of 2 - 2-dose childhood series) VARICELLA (2 of 2 - 2-dose childhood series) [facility] Start: 2007 ASTHMA ACTION PLAN ASTHMA ACTION VALERIE N [facility] Start: 2005 POLIO (1 of 3 - 4-do se series) POLIO (1 of 3 - 4-dose series) [facility] Bacteria identified in Urine by Culture URINE CULTURE Microbiology Routine Urinary frequency Ordered: 06/24/2022 [facility] Work Phone: Comment on above: Ordered: 06/24/2022 Bacteria identified in Urine by Culture Urine Culture [facility] Bacteria identified in Urine by Culture URINE CULTURE Microbiology Routine Urinary frequency 07/28/2023 7:38 PM EST [facility] Work Phone: Bacteria identified in Urine by Culture URINE CULTURE Microbiology Routine Dysuria Ordered: 10/30/2023 [facility] Work Phone: Comment on above: Ordered: 10/30/2023 Bacteria identified in Urine by Culture URINE CULTURE Microbiology Routine Burning with urination 12/29/2023 5:02 PM EDT [facility] Work Phone: BACTERIAL VAGINOSIS AMPLIFICATION BACTERIAL VAGINOSIS AMPLIFICATION Lab Routine Urinary frequency Ordered: 06/24/2022 [facility] Work Phone: Comment on above: Ordered: 06/24/2022 BACTERIAL VAGINOSIS NAAT BACTERI AL VAGINOSIS NAAT Lab Routine Dysuria Ordered: 10/30/2023 [facility] Work Phone: Comment on above: Ordered: 10/30/2023 PRINCE / TRICHOMONA S AMPLIFICATION PRINCE / TRICHOMONAS AMPLIFICATION Microbiology Routine Urinary frequency Ordered: 06/24/2022 [facility] Work Phone: Comment on above: Ordered: 06/24/2022 PRINCE/TRICHOMONAS NAAT PRINCE /TRICHOMONAS NAAT Lab Routine Dysuria Ordered: 10/30/2023 [facility] Work Phone: Comment on above: Ordered: 10/30/2023 COVID & INFLUENZA A/ B & RSV PCR, ROUTINE COVID & INFLUENZA A/B & RSV PCR, ROUTINE Microbiology Routine Viral URI with cough Ordered: 08/27/2024 [facility] Work Phone: Comment on above: Ordered: 08/27/2024 DHEA Sulfate DHEA Sulfate Lab Routine Hirsutism 11/24/2022 3:30 PM EDT [facility] Lactic acid measurement [facility] Patient Education [facility] Work Phone: Patient referral [facility] Work Phone: End: 11-24-2022 Sex Hormone Binding Globulin Sex Hormone Binding Globulin Lab Routine For lab collect this frequency defaults to the next routine lab draw time. Routine times: 0600; 1100; 1400; 1900; 2200 for 1 Occurrences starting 11/24/2022 until 11/24/2022 [facility] Work Phone: Comment on above: For lab collect this frequency defaults to the next routine lab draw time. Routine times: 0600; 1100; 1400; 1900; 2200 for 1 Occurrences starting 11/24/2022 until 11/24/2022 Sex Hormone Binding Globulin Sex Hormone Binding Globulin Lab Routine 11/24/2022 3:30 PM EDT [facility] Testosterone, free Testosterone, free Lab Routine Irregular menses 11/24/2022 3:30 PM EDT [facility] End: 09-07-2024 Transglutaminase IgA [facility] Work Phone: Comment on above: 1 Occurrences starti ng 09/07/2024 until 09/07/2024 [facility] Immunizations Immunization Date Immunization Notes Care Provider Mathew lopez 09-07-2024 influenza, seasonal, injectable, preservative free Lois Conde MD Work Phone: [facility] 03-10-2023 meningococcal B vacc ine, recombinant, OMV, adjuvanted Lois Conde MD Work Phone: [facility] 05-22-2021 PFIZER (purple cap) COVID-19, mRNA, LNP-S, 30mcg/0.3mL dose Denielle White [employer] Work Phone: [facility] 04-30-2021 influenza, injectabl e, quadrivalent, preservative free Denielle White [employer]IEF ACCOUNTANT[employer] Work Phone: [facility] 04-30-2021 PFIZER (purple cap) COVID-19, mRNA, LNP-S, 30mcg/0.3mL dose Denielle White [employer]IEF ACCOUNTANT[employer] Work Phone: [facility] 04-30-2021 influenza virus vacc ine, unspecified formulation Ivonne Dawson CHIEF ACCOUNTANT.[employer]IL EX[employer]ERT Work Phone: [facility] 04-26-2021 meningococcal B vacc ine, recombinant, OMV, adjuvanted Denielle White [employer]IEF ACCOUNTANT[employer] Work Phone: [facility] 04-26-2021 meningococcal polysaccharide (groups A, C, Y and W-135) diphtheria toxoid conjugate vaccine (MCV4P) Codi Lemus [employer]IEF ACCOUNTANT[employer] Work Phone: [facility] 04-16-2020 hepatitis A vaccine, pediatric/adolescent dosage, 2 dose schedule Denaishwarya Lemus [employer]IEF ACCOUNT[employer] Work Phone: [facility] 04-16-2020 Human Papillomavirus 9-valent vaccine Denaishwarya Lemus [employer]IEF ACCOUNT[employer] Work Phone: [facility] 04-29-2018 hepatitis A vaccine, pediatric/adolescent dosage, 2 dose schedule Denaishwarya Lemus [employer]IEF ACCOUNT[employer] Work Phone: [facility] 04-29-2018 Human Papillomavirus 9-valent vaccine Codi Lemus [facility] Work Phone: [facility] 06-30-2017 influenza, injectabl e, quadrivalent, preservative free Codi Lemus [facility] Work Phone: [facility] 04-28-2017 meningococcal polysaccharide (groups A, C, Y and W-135) diphtheria toxoid conjugate vaccine (MCV4P) Codi Lemus [facility] Work Phone: [facility] 04-28-2017 tetanus toxoid, redu lorie diphtheria toxoid, and acellular pertussis vaccine, adsorbed [facility] Work Phone: [facility] 05-14-2015 influenza, live, intranasal, [facility]riv[facility] Work Phone: [facility] 05-10-2014 influenza, live, intranasal, quadrivalent [facility] Work Phone: [facility] 04-22-2012 influenza virus vacc ine, split virus (incl. purified surface antigen) [facility] Mariah [facility] Work Phone: [facility] 06-07-2010 influenza virus vacc ine, split virus (incl. purified surface antigen) [facility] Work Phone: [facility] 05-10-2010 diphtheria, tetanus toxoids and acellular pertussis vaccine [facility] Mariah [facility] Work Phone: [facility] 05-10-2010 influenza virus vacc ine, split virus (incl. purified surface antigen) [facility] Work Phone: [facility] 05-10-2010 measles, mumps, rube lla, and varicella virus vaccine [facility] Work Phone: [facility] 05-10-2010 poliovirus vaccine, inactivated Codi Lemus [employer] Work Phone: [facility] 11-26-2006 diphtheria, tetanus toxoids and acellular pertussis vaccine Gus Munroe [employer]IEF ACCOUNTANT[employer] Work Phone: [facility] Work Phone: 11-26-2006 pneumococcal conjuga te vaccine, 7 valent Gus Steeletito [employer]IEF ACCOUNTANT[employer] Work Phone: [facility] Work Phone: 11-26-2006 varicella virus vaccine Yaron Steeletito [employer]IEF ACCOUNTANT[employer] Work Phone: [facility] Work Phone: 06-08-2006 haemophilus influenz ae type b vaccine, HbOC conjugate Gus Steeletito [employer]IEF ACCOUNTANT[employer] Work Phone: [facility] Work Phone: 06-08-2006 haemophilus influenz ae type b vaccine, PRP-T conjugate Codi Mariah [employer]IE[employer] Work Phone: [facility] 06-08-2006 measles, mumps and rubella virus vaccine Gus Munroe CHIEF ACCOUNTANT.[employer] Work Phone: [facility] Work Phone: 06-08-2006 pneumococcal conjuga te vaccine, 7 valent Gus Seteletito CHIEF ACCOUNTANT.[employer] Work Phone: [facility] Work Phone: 02-20-2006 pneumococcal conjuga te vaccine, 7 valent Codi Mariah [employer]IE[employer] Work Phone: [facility] 2005 diphtheria, tetanus toxoids and acellular pertussis vaccine Jaradjoann Lemus [employer]IEF ACCOUNT[employer] Work Phone: [facility] 2005 DTaP-hepatitis B and poliovirus vaccine Jaradjoann Lemus [employer]IEF ACCOUNTANT[employer] Work Phone: [facility] 2005 haemophilus influenz ae type b vaccine, PRP-T conjugate Codi Lemus [employer]IE[employer] Work Phone: [facility] 2005 hepatitis B vaccine, pediatric or pediatric/adolescent dosage Denaishwarya Lemus [employer]IEF ACCOUNT[employer] Work Phone: [facility] 2005 pneumococcal conjuga te vaccine, 7 valent Codi Lemus [employer]IE[employer] Work Phone: [facility] 2005 poliovirus vaccine, inactivated Denalbertole White CHIEF ACCOUNT[employer] Work Phone: [facility] 2005 diphtheria, tetanus toxoids and acellular pertussis vaccine Denaishwarya Lemus [employer]IE[employer] Work Phone: [facility] 2005 haemophilus influenz ae type b vaccine, PRP-T conjugate Codi Lemus [employer]IE[employer] Work Phone: [facility] 2005 poliovirus vaccine, inactivated Codi White [employer]IE[employer] Work Phone: [facility] 2005 diphtheria, tetanus toxoids and acellular pertussis vaccine Denaishwarya Lemus [employer]IE[employer] Work Phone: [facility] 2005 haemophilus influenz ae type b vaccine, PRP-T conjugate Codi Lemus [employer]IE[employer] Work Phone: [facility] 2005 hepatitis B vaccine, pediatric or pediatric/adolescent dosage Codi Lemus [employer]IE[employer] Work Phone: [facility] 2005 poliovirus vaccine, inactivated Indioielle White CHIEF ACCOUNTANT[employer] Work Phone: [facility] 2005 poliovirus vaccine, unspecified formulation Denaishwarya Lemus [employer]IEF ACC[employer] Work Phone: [facility] 2005 hepatitis B vaccine, pediatric or pediatric/adolescent dosage Denaishwarya White CHIEF ACCOUNTANT[employer] Work Phone: [facility] Payers Date Payer Category Payer Self-pay [id number] 2022 Unknown [id number] 2021 Unknown [id number] 2006 Medicaid [employer] [id number] 2006[facility] [phone] [address] [place] [address] Medicaid [id number] 2006 Medicaid [id number] 2005 Unknown [id number] 2005 Unknown [id number] 2005 Unknown [id number] 2005 Unknown [id number] Unknown [employer] [id number] Unknown [id number] Unknown [id number] Unknown [id number] Unknown [id number] Unknown [id number] Unknown [id number] Unknown [id number] Unknown [id number] Social History Date Type Detail Facility Start: 07-04-2019 End: 06-27-2022 Tobacco smoking status NHIS Never smoked tobacco [facility] Work Phone: Start: 07-04-2019 End: 06-27-2022 Tobacco use and exposure Smokeless tobacco non-user [facility] Work Phone: Start: 2005 Sex Assigned At Not on file C [facility] Start: 01-07-2022 End: 06-24-2022 Exposure to SARS-CoV-2 (event) Not sure [facility] History of tobacco use Passive smoker [facility] Start: 08-26-2022 End: 12-21-2023 Tobacco smoking status NHIS Unknown if ever smoked [facility] Start: 12-11-2020 None [facility] Start: 12-11-2020 With Family [facility] Start: 2005 Sex Assigned At Female [facility] Start: 10-15-2022 End: 09-07-2024 Alcohol intake Lifetime non-drinker (finding) [facility] Start: 10-15-2022 End: 03-10-2023 Alcohol intake [facility] Start: 10-15-2022 End: 03-10-2023 Tobacco use panel [facility] Adolescent depressio n screening assessment 7 [facility] Start: 01-20-2025 End: 01-23-2025 Tobacco smoking status NHIS Smokes tobacco daily (finding) [facility] NEGATED: Highlighted row [facility] Goals Date Patient Goal Desired Activity /State Functional Status Date Assessment Result Facility 07-20-2019 Are you deaf, or do you have serious difficulty hearing No 07/20/2019 2:00 AM EST No [facility] 07-20-2019 Are you blind, or do you have serious difficulty seeing, even when wearing glasses Yes 07/20/2019 2:00 AM EST Regla Mae RN Yes [facility] 07-20-2019 Do you have serious difficulty walking or climbing stairs Yes 07/20/2019 2:00 AM EST Yes [facility] 07-20-2019 Do you have difficul ty dressing or bathing No 07/20/2019 2:00 AM EST No [facility] 07-20-2019 Because of a physica l, mental, or emotional condition, do you have difficulty doing errands alone such as visiting a physician's office or shopping 07/20/2019 2:00 AM EST [facility] Mental Status Date Assessment Result Facility 12-24-2023 Cognitive function Voice/Name;Touch/Shaki ng [facility] Work Phone: 02-04-2023 Cognitive function Level Of Cons ciousness Awake;Alert;Appropriate;Fol lows Commands [facility] Work Phone: 11-18-2022 Cognitive function Voice/Name [facility] Work Phone: 07-20-2019 Because of a physica l, mental, or emotional condition, do you have serious difficulty concentrating, remembering, or making decisions Yes 07/20/2019 2:00 AM EST Yes [facility] Clinical Notes 01-17-2022 to 01-23-2025 Addendum Note - Jasmin Enriquez APRN.[facility] - 08/27/2024 1:23 PM ESTAddendum Note - Jasmin Enriquez APRN.[facility] - 08/27/2024 1:23 PM Nasrin Glez LPN - 08/27/2024 1:03 PM EST Note Date & Type Note Facility 01-23-2025 Discharge summary [facility] 01-20-2025 Radiology Diagnostic study note [facility] Imaging Services [address] [place] [address] CT Chest, Abd, Pel w/Contrast MR#: [id number] Acct: [id number] Name: LUIS BARAJAS Rep #: [id number] : 2005 F 19 From: Luanne Sharma MD PCP: Dr. Mitzy Fung MD Status: REG ER Study:CT Chest, Abd, Pel w/Contrast Date of E xam: 01/20/25 Exam# [id number] Ordering Dr: Javier Isabel DO PROCEDURE: CT CHEST, ABD, PEL W/CONTRAST 01/20/2025 REASON FOR EXAM: FALL TECHNIQUE: Chest, abdomen and pelvis CT with intravenous contrast. Coronal and Sagittal reconstruction series were provided. One or more dose reduction techniques were used (e.g., Automated exposure control, adjustment of the mA and/or kV according to patient size, use of iterative reconstruction technique. CONTRAST: 100 mL of Isovue 370 RADIATION DOSE SUMMARY: DLP: 404 mGycm COMPARISON: none FINDINGS: CT CHEST: Lymph nodes: Prominent bilateral axillary lymph nodes. Heart and Vasculature: Unremarkable Lungs and Airways: No focal consolidations. Left base subsegmental atelectasis. No pleural effusion or pneumothorax. Question 3 mm nodule within the right middle lobe best seen on series 2, image 66. Pleura: Unremarkable Bones: No acute fractures CT ABDOMEN/PELVIS: The liver, spleen, pancreas, both kidneys, and both adrenal glands demonstrate no acute findings. The gallbladder is unremarkable. The stomach is unremarkable. The aorta and IVC demonstrate no acute findings. There is no free air, free fluid or intestinal obstruction. The small bowel loops are not dilated. The appendix is not clearly identified, although there are no secondary signs ofappendicitis. No bowel obstruction. The pelvic structures are intact. There is no solid pelvic mass. Prominent bilateral inguinal lymph nodes. Urinary bladder wall thickening may reflect cystitis versus nondistention; consider correlation with urinalysis. Visualized osseous structures demonstrate no acute abnormality. CT/CT Chest, Abd, Pel w/Contrast IMPRESSION: No acute traumatic findings. Urinary bladder wall thickening may reflect cystitis versus nondistention; consider correlation with urinalysis. Question 3 mm nodule within the right middle lobe best seen on series 2, image 66. Reading Location: [facility] CC: Dr. Javier Isabel DO; Dr. Mitzy Fung MD ~ Central Lab Technician: Signed [facility] 08-27-2024 Note Addended by: JASMIN SAUCEDO on: 08/27/2024 01:23 PM Modules accepted: Orders [facility] 08-27-2024 Miscellaneous Notes Addended by: JASMIN ENRIQUEZ on: 08/27/2024 01:23 PM Modules accepted: Orders documented in this encounter [facility] 08-27-2024 Note HNO ID: [id number] Author: NASRIN VILLAVICENCIO LPN Service: ? Author Type: LICENSED NURSE Type: Progress Notes Filed: 08/27/2024 13:04 Note Text: 2.5 solution aerosol treatment given per provider's orders. Prior to treatment O2 sat is 97%. Treatment completed. O2 sat is 100%. Tolerated well. Nasrin Villavicencio LPN [facility] 08-27-2024 History of Present illness Narrative 2.5 solution aerosol treatment given per provider's orders. Prior to treatment O2 sat is 97%. Treatment completed. O2 sat is 100%. Tolerated well. Nasrin Villavicencio LPN Subjective Ear Pain Associated symptoms include congestion, coughing, headaches and a sore throat. Pertinent negatives include no chest pain, chills, fever, myalgias, nausea or vomiting. Luis Barajas is a 19 year old female who presents with sore throat, chest congestion, headache, wheezing for past 2 weeks. She has had bilateral ear pain for the past 2 days. She was hospitalized in April with peritonsillar abscess and her mother states symptoms now are consistent with that episode. She has a history of tonsil stones and wants to get her tonsils out. ENT doctor from hospitalization said he would do the surgery for her if her symptoms return. She has not had a fever. Her chest hurts when she breaths and she has been hearing wheezing. She has been using her inhaler but it does not seem to help. Review of Systems Constitutional: Negative for chills, fever and malaise/fatigue. HENT: Positive for congestion, ear pain and sore throat. Respiratory: Positive for cough, sputum production, shortness of breath and wheezing. Cardiovascular: Negative for chest pain. Gastrointestinal: Negative for diarrhea, nausea and vomiting. Musculoskeletal: Negative for myalgias. Neurological: Positive for headaches. BP 110/78 Pulse 106 Temp 36.9 C (98.4 F) (Tympanic) Resp 20 Wt 57.1 kg (125 lb 14.1 oz) LMP 12/24/2023 (Exact Date) SpO2 97% BMI 21.08 kg/m History reviewed. No pertinent past medical history. No past surgical history on file. ALLERGIES Grass Pollen and Penicillins MEDICATIONS loratadine (CLARITIN) 10 mg tablet D-MANNOSE ORAL Take 2,000 mg by mouth. VITAMIN C 500 mg tablet L. acidophilus-L. salivarius-B. bifidum-S. thermophilus (ACIDOPHILUS PROBIOTIC BLEND) 175 mg capsule SENEXON-S 8.6-50 mg per tablet cabergoline (DOSTINEX) 0.5 mg tablet 0.5 mg every Thursday and Thursday. Inserted vaginally HS Cholecalciferol, Vitamin D3, 25 mcg (1,000 unit) cap Take 5,000 Units by mouth once daily. metFORMIN ER (GLUCOPHAGE XR) 500 mg 24 hr tablet Take 1,000 mg by mouth two times a day. loratadine (CLARITIN ORAL) Take by mouth. melatonin 1 mg tablet Take by mouth. clindamycin (CLEOCIN) 300 mg capsule Take 1 capsule by mouth three times a day for 7 days. albuterol (PROVENTIL) 2.5 mg /3 mL (0.083 %) nebulizer solution Use 3 mL via nebulizer every 4 hours as needed. Use over 5-15minutes. FLOVENT HFA 44 mcg/actuation inhaler (Patient not taking: Reported on 12/29/2023) ibuprofen (MOTRIN) 600 mg tablet Take 1 tablet by mouth every 6 hours as needed for Pain. (Patient not taking: Reported on 12/29/2023) PULMICORT 0.5 MG/2 ML NEB SOLUTION use 1-2X daily (Patient not taking: Reported on 11/14/2023) ACCUNEB 0.63 MG/3 ML SOLN FOR INHALATION 1-4X daily (Patient not taking: Reported on 11/14/2023) FAMILY HISTORY Problem Relation Age of Onset Diabetes Maternal Aunt Diabetes Maternal Uncle Asthma Maternal Grandmother Asthma Maternal Uncle Social History Tobacco Use Smoking status: Never Passive exposure: Yes Smokeless tobacco: Never Vaping Use Vaping status: Never Used Objective Physical Exam Vitals and nursing note reviewed. Constitutional: Appearance: Normal appearance. HENT: Right Ear: Tympanic membrane, ear canal and external ear normal. Left Ear: Tympanic membrane, ear canal and external ear normal. Nose: Congestion present. Mouth/Throat: Mouth: Mucous membranes are moist. Pharynx: Uvula midline. Posterior oropharyngeal erythema present. No oropharyngeal exudate or uvula swelling. Tonsils: No tonsillar exudate or tonsillar abscesses. 1+ on the right. 1+ on the left. Cardiovascular: Rate and Rhythm: Normal rate and regular rhythm. Heart sounds: Normal heart sounds. Pulmonary: Effort: Pulmonary effort is normal. No respiratory distress. Breath sounds: Examination of the right-upper field reveals wheezing. Examination of the left-upper field reveals wheezing. Examination of the right-lower field reveals wheezing. Examination of the left-lower field reveals wheezing. Wheezing present. No rales. Musculoskeletal: Cervical back: Neck supple. Lymphadenopathy: Cervical: No cervical adenopathy. Skin: General: Skin is warm and dry. Findings: No erythema or rash. Neurological: Mental Status: She is alert. ASSESSMENT/PLAN: 1. Sore throat - ICD9: 462, ICD10: J02.9 (primary diagnosis) - Group A strep molecular testing negative - Discussed supportive care treatment with fluids, rest and analgesia. - STREP A MOLECULAR (POC) 2. Pharyngitis, unspecified etiology - ICD9: 462, ICD10: J02.9 - CLINDAMYCIN HCL 300 MG CAPSULE 3. Wheezing - ICD9: 786.07, ICD10: R06.2 - ALBUTEROL SULFATE 2.5 MG/3 ML (0.083 %) SOLUTION FOR NEBULIZATION - prednisone as prescribed. 4. Viral URI with cough - ICD9: 465.9, ICD10: J06.9 - Discussed viral etiology and rationale for treatment. - Symptomatic treatment with prn analgesia - Supportive care with fluids and rest - COVID & INFLUENZA A/B & RSV PCR, ROUTINE 5. Bronchitis - ICD9: 490, ICD10: J40 - nebulizer for home use. - ALBUTEROL SULFATE 2.5 MG/3 ML (0.083 %) SOLUTION FOR NEBULIZATION - Follow-up with your PCP in 3-5 days if symptoms have not improved or sooner if symptoms worsen - Discussed red flags and need for immediate medical evaluation if any occur. - Discussed supportive care treatment with fluids, rest and analgesia. - Discussed expected course of illness Jasmin Enriquez APRN.[employer] documented in this encounter [facility] 08-27-2024 Note HNO ID: [id number] Author: JASMIN ENRIQUEZ APRN.[employer] Service: ? Author Type: Nurse Practitioner Type: Progress Notes Filed: 08/27/2024 12:30 Note Text: Subjective Ear Pain Associated symptoms include congestion, coughing, headaches and a sore throat. Pertinent negatives include no chest pain, chills, fever, myalgias, nausea or vomiting. Luis Barajas is a 19 year old female who presents with sore throat, chest congestion, headache, wheezing for past 2 weeks. She has had bilateral ear pain for the past 2 days. She was hospitalized in April with peritonsillar abscess and her mother states symptoms now are consistent with that episode. She has a history of tonsil stones and wants to get her tonsils out. ENT doctor from hospitalization said he would do the surgery for her if her symptoms return. She has not had a fever. Her chest hurts when she breaths and she has been hearing wheezing. She has been using her inhaler but it does not seem to help. Review of Systems Constitutional: Negative for chills, fever and malaise/fatigue. HENT: Positive for congestion, ear pain and sore throat. Respiratory: Positive for cough, sputum production, shortness of breath and wheezing. Cardiovascular: Negative for chest pain. Gastrointestinal: Negative for diarrhea, nausea and vomiting. Musculoskeletal: Negative for myalgias. Neurological: Positive for headaches. BP 110/78 Pulse 106 Temp 36.9 ?C (98.4 ?F) (Tympanic) Resp 20 Wt 57.1 kg (125 lb 14.1 oz) LMP 12/24/2023 (Exact Date) SpO2 97% BMI 21.08 kg/m? History reviewed. No pertinent past medical history. No past surgical history on file. ALLERGIES Grass Pollen and Penicillins MEDICATIONS loratadine (CLARITIN) 10 mg tablet D-MANNOSE ORAL Take 2,000 mg by mouth. VITAMIN C 500 mg tablet L. acidophilus-L. salivarius-B. bifidum-S. thermophilus (ACIDOPHILUS PROBIOTIC BLEND) 175 mg capsule SENEXON-S 8.6-50 mg per tablet cabergoline (DOSTINEX) 0.5 mg tablet 0.5 mg every Thursday and Thursday. Inserted vaginally HS Cholecalciferol, Vitamin D3, 25 mcg (1,000 unit) cap Take 5,000 Units by mouth once daily. metFORMIN ER (GLUCOPHAGE XR) 500 mg 24 hr tablet Take 1,000 mg by mouth two times a day. loratadine (CLARITIN ORAL) Take by mouth. melatonin 1 mg tablet Take by mouth. clindamycin (CLEOCIN) 300 mg capsule Take 1 capsule by mouth three times a day for 7 days. albuterol (PROVENTIL) 2.5 mg /3 mL (0.083 %) nebulizer solution Use 3 mL via nebulizer every 4 hours as needed. Use over 5-15minutes. FLOVENT HFA 44 mcg/actuation inhaler (Patient not taking: Reported on 12/29/2023) ibuprofen (MOTRIN) 600 mg tablet Take 1 tablet by mouth every 6 hours as needed for Pain. (Patient not taking: Reported on 12/29/2023) PULMICORT 0.5 MG/2 ML NEB SOLUTION use 1-2X daily (Patient not taking: Reported on 11/14/2023) ACCUNEB 0.63 MG/3 ML SOLN FOR INHALATION 1-4X daily (Patient not taking: Reported on 11/14/2023) FAMILY HISTORY Problem Relation Age of Onset Diabetes Maternal Aunt Diabetes Maternal Uncle Asthma Maternal Grandmother Asthma Maternal Uncle Social History Tobacco Use Smoking status: Never Passive exposure: Yes Smokeless tobacco: Never Vaping Use Vaping status: Never Used Objective Physical Exam Vitals and nursing note reviewed. Constitutional: Appearance: Normal appearance. HENT: Right Ear: Tympanic membrane, ear canal and external ear normal. Left Ear: Tympanic membrane, ear canal and external ear normal. Nose: Congestion present. Mouth/Throat: Mouth: Mucous membranes are moist. Pharynx: Uvula midline. Posterior oropharyngeal erythema present. No oropharyngeal exudate or uvula swelling. Tonsils: No tonsillar exudate or tonsillar abscesses. 1+ on the right. 1+ on the left. Cardiovascular: Rate and Rhythm: Normal rate and regular rhythm. Heart sounds: Normal heart sounds. Pulmonary: Effort: Pulmonary effort is normal. No respiratory distress. Breath sounds: Examination of the right-upper field reveals wheezing. Examination of the left-upper field reveals wheezing. Examination of the right-lower field reveals wheezing. Examination of the left-lower field reveals wheezing. Wheezing present. No rales. Musculoskeletal: Cervical back: Neck supple. Lymphadenopathy: Cervical: No cervical adenopathy. Skin: General: Skin is warm and dry. Findings: No erythema or rash. Neurological: Mental Status: She is alert. ASSESSMENT/PLAN: 1. Sore throat - ICD9: 462, ICD10: J02.9 (primary diagnosis) - Group A strep molecular testing negative - Discussed supportive care treatment with fluids, rest and analgesia. - STREP A MOLECULAR (POC) 2. Pharyngitis, unspecified etiology - ICD9: 462, ICD10: J02.9 - CLINDAMYCIN HCL 300 MG CAPSULE 3. Wheezing - ICD9: 786.07, ICD10: R06.2 - ALBUTEROL SULFATE 2.5 MG/3 ML (0.083 %) SOLUTION FOR NEBULIZATION - prednisone as prescribed. 4. (more content not included)... [facility] 08-27-2024 Instructions Jasmin Enriquez, ALEX.[employer] - 08/27/2024 12:08 PM EST ASSESSMENT/PLAN: 1. Sore throat - ICD9: 462, ICD10: J02.9 (primary diagnosis) - Group A strep molecular testing negative - Discussed supportive care treatment with fluids, rest and analgesia. - STREP A MOLECULAR (POC) 2. Pharyngitis, unspecified etiology - ICD9: 462, ICD10: J02.9 - CLINDAMYCIN HCL 300 MG CAPSULE - follow up with ENT 3. Wheezing - ICD9: 786.07, ICD10: R06.2 - ALBUTEROL SULFATE 2.5 MG/3 ML (0.083 %) SOLUTION FOR NEBULIZATION - prednisone as prescribed. 4. Viral URI with cough - ICD9: 465.9, ICD10: J06.9 - Discussed viral etiology and rationale for treatment. - Symptomatic treatment with prn analgesia - Supportive care with fluids and rest - COVID & INFLUENZA A/B & RSV PCR, ROUTINE 5. Bronchitis - ICD9: 490, ICD10: J40 - nebulizer for home use. - ALBUTEROL SULFATE 2.5 MG/3 ML (0.083 %) SOLUTION FOR NEBULIZATION - Follow-up with your PCP in 3-5 days if symptoms have not improved or sooner if symptoms worsen - Discussed red flags and need for immediate medical evaluation if any occur. - Discussed supportive care treatment with fluids, rest and analgesia. - Discussed expected course of illness Jasmin Enriquez APRN.[employer] Previous hospitalization care team: Attending Provider: Ernestina Lanza MD (attending for admission) Consulting: Tirso Richey MD (ENT) Consulting: Jason Uriostegui MD (infectious disease) documented in this encounter [facility] 04-25-2024 Note HNO ID: [id number] Author: ERNESTINA LANZA MD Service: Hospital Medicine Author Type: Physician Type: Progress Notes Filed: 04/25/2024 11:00 Note Text: INPATIENT PROGRESS NOTE SERVICE DATE: 04/25/2024 HOSPITAL COURSE: Subjective INTERVAL HPI: Seen and examined. Feels better today and able to eat and drink Current Outpatient Medications Medication Instructions ACCUNEB 0.63 MG/3 ML SOLN FOR INHALATION 1-4X daily albuterol HFA (PROVENTIL HFA, VENTOLIN HFA) 90 mcg/actuation inhaler 2 Puffs cabergoline (DOSTINEX) 0.5 mg, OTHER, EVERY MON AND FRI, Inserted vaginally HS Cholecalciferol (Vitamin D3) 5,000 Units, ORAL, DAILY D-MANNOSE ORAL 2,000 mg, ORAL FLOVENT HFA 44 mcg/actuation inhaler No dose, route, or frequency recorded. ibuprofen (MOTRIN) 600 mg, ORAL, EVERY 6 HOURS NEEDED L. acidophilus-L. salivarius-B. bifidum-S. thermophilus (ACIDOPHILUS PROBIOTIC BLEND) 175 mg capsule loratadine (CLARITIN ORAL) ORAL loratadine (CLARITIN) 10 mg tablet melatonin 1 mg tablet ORAL metFORMIN ER (GLUCOPHAGE XR) 1,000 mg, ORAL, 2 TIMES DAILY PULMICORT 0.5 MG/2 ML NEB SOLUTION use 1-2X daily SENEXON-S 8.6-50 mg per tablet VITAMIN C 500 mg tablet Current Facility-Administered Medications Medication Dose Route Frequency melatonin 3 mg tab(s) 3 mg ORAL DAILY (8 PM) cholecalciferol 5,000 Units tab(s) (VITAMIN D3) 5,000 Units ORAL DAILY NaCl 0.9% iv flush bag 20 mL INTRAVENOUS PRN ondansetron 4 mg tab(s) (ZOFRAN) 4 mg ORAL q 6 H PRN Or ondansetron (PF) 4 mg injection (ZOFRAN) 4 mg INTRAVENOUS q 6 H PRN acetaminophen 650 mg tab(s) (TYLENOL) 650 mg ORAL q 6 H PRN clindamycin iv piggyback 600 mg in D5W 50 mL (CLEOCIN) 600 mg INTRAVENOUS q 8 H dexAMETHasone sodium phosphate 8 mg injection (DECADRON) 8 mg INTRAVENOUS q 6 H [START ON 04/29/2024] cabergoline 0.5 mg tab(s) (DOSTINEX) 0.5 mg OTHER MON and FRI Objective PHYSICAL EXAM: General: Patient is alert and oriented x3 and is in no Neck: Negative hepatojugular reflux or jugular venous distention, negative carotid bruit. Throat: Erythema on bilateral tonsils. Lungs: Clear to auscultation, no wheezing, rales, or rhonchi. Cardiac: Regular rhythm and rate, S1-S2 within normal limits, no murmurs, gallops were appreciated, no rubs. Abdomen: Soft, nontender, nondistended, no HSM detected, bowel sounds are active. Extremities: [No edema, cyanosis, or clubbing. Skin: No rashes or breakdown. Musculoskeletal: normal MS exam, moves all extremities, DTR's normal Lymphatic: Negative cervical, supra-clavicular, groin lymphadenopathy. Neurologic: Cranial nerves from II-XII intact grossly, no focal deficits. Psychiatry: Normal affect. Glucose (mg/dL) Date Value 04/24/2024 120 Potassium (mmol/L) Date Value 04/24/2024 4.1 Sodium (mmol/L) Date Value 04/24/2024 140 Chloride (mmol/L) Date Value 04/24/2024 108 CO2 (mmol/L) Date Value 04/24/2024 23 Creatinine (mg/dL) Date Value 04/24/2024 0.61 BUN (mg/dL) Date Value 04/24/2024 15 Anion Gap (mmol/L) Date Value 04/24/2024 9 Calcium, Total (mg/dL) Date Value 04/24/2024 10.3 Estimated Creatinine Clearance: 124.6 mL/min (based on SCr of 0.61 mg/dL). CBC with diff: WBC 13.20 04/24/2024 RBC 4.17 04/24/2024 Hemoglobin 12.2 04/24/2024 Hematocrit 36.0 04/24/2024 MCV 86.3 04/24/2024 MCH 29.3 04/24/2024 MCHC 33.9 04/24/2024 RDW-CV 11.3 04/24/2024 Platelet Count 391 04/24/2024 MPV 9.7 04/24/2024 BP 126/78 Pulse 77 Temp (Src) 97.7 (Oral) Resp 21 Ht 5' 4.8 (1.65m) Wt 117 lb 4.6 oz (53.2kg) SpO2 97% LMP 12/24/2023 BMI 19.64 kg/(m2). O2 Therapy: Room Air DATA: Diagnostic tests reviewed for today's visit: Most recent labs and imaging results. Assessment/Plan Principal Problem: 19 year old female with a past medical history of ADHD, PCOS, asthma, URIEL. Patient was transferred from [facility] today for concerns of 2 cm right peritonsillar abscess. Patient started on IV clindamycin 600 mg every 8hrs, with IV Decadron milligrams every 6hrs. ENT consulted and they think it is phlegmon secondary to dental extraction mended IV steroid along with IV antibiotic Right peritonsillar abscess Status post dental extraction approximately 1 week prior Previously treated with Keflex and cefdinir due to concerns of infection Patient started having sore throat associated with dysphagia At the [facility] ED CT neck with IV contrast showing 2 cm right peritonsillar abscess -ENT consulted and they think it is phlegmon secondary to dental extraction mended IV steroid along with IV antibiotic recommended keeping in the hospital for 1 more day of IV antibiotics and if to continue to improve then can discharge home -ID recommended IV clindamycin Other chronic comorbids: Home meds reconciled as appropriate ADHD Asthma PCOS URIEL Disposition: Home DVT PPX: Low Risk for DVT DIET: Regular diet FLUIDS: IVF's DEVICES/LINES/CATHETERS: PIV CODE STA (more content not included)... [facility] 04-25-2024 Note HNO ID: [id number] Author: TIRSO RICHEY MD Service: Otolaryngology Author Type: Physician Type: Progress Notes Filed: 04/25/2024 09:07 Note Text: April 25, 2024 Patient is much improved today after IV antibiotic and steroid therapy. Afebrile. Sore throat symptoms are essentially resolved. Physical examination shows resolution of the erythema and bulging of the right peritonsillar soft tissues. Patient is improving nicely with medical therapy alone. Surgical intervention will not be necessary. I instructed the nurse present at the bedside to allow the patient to order a breakfast tray as she no longer needs to be n.p.o. for any surgical interventions. I would recommend continuing the IV antibiotics until she is comfortable enough to switch to oral antibiotics. When she is discharged, she will not need to stay on the steroids. Follow-up with me as needed. Tirso Richey MD [facility] 01-26-2024 Note HNO ID: [id number] Author: MARTÍNEZ LYLES APRN.[employer] Service: ? Author Type: Nurse Practitioner Type: Progress Notes Filed: 01/26/2024 16:37 Note Text: This note was created using Media Ingenuity[employer]. April Barajas is a 18 year old female. HPI Pt was seen about a month ago for pain in her right ear. She was prescribed an ear drop which she states bubbled and burned her ear. She did continue to use them but the ear never improved. She is also getting a wisdom tooth on that side. Review of Systems Constitutional: Negative for fatigue and fever. HENT: Positive for ear pain. Respiratory: Negative for cough. Objective BP 102/60 Pulse 80 Temp 36.6 ?C (97.9 ?F) Resp 16 Wt 60 kg (132 lb 4.4 oz) LMP 12/24/2023 (Exact Date) SpO2 99% Physical Exam Vitals and nursing note reviewed. Constitutional: General: She is not in acute distress. Appearance: Normal appearance. She is not ill-appearing. HENT: Head: Normocephalic. Right Ear: Tympanic membrane, ear canal and external ear normal. There is no impacted cerumen. Left Ear: Tympanic membrane, ear canal and external ear normal. There is no impacted cerumen. Mouth/Throat: Mouth: Mucous membranes are moist. Eyes: Conjunctiva/sclera: Conjunctivae normal. Cardiovascular: Rate and Rhythm: Normal rate and regular rhythm. Pulmonary: Effort: Pulmonary effort is normal. Breath sounds: Normal breath sounds. Musculoskeletal: General: Normal range of motion. Cervical back: Normal range of motion. Skin: General: Skin is warm and dry. Neurological: General: No focal deficit present. Mental Status: She is alert. Psychiatric: Mood and Affect: Mood normal. Behavior: Behavior normal. Assessment and Plan ASSESSMENT/PLAN: 1. Ear pain, right - ICD9: 388.70, ICD10: H92.01 Physical exam shows no erythema or swelling of the right tympanic membrane or external ear canal. I see no obvious signs of infection of the external ear structure. There was no obvious sign of dental caries or dental infection. I discussed with the patient that at this point I do not see a need for repeat antibiotic drops or pills. I recommended follow-up with dentistry as a possible source of pain. Also discussed use of ibuprofen or Tylenol as needed for pain. Martínez Lyles, ALEX.[facility] 01-26-2024 History of Present illness Narrative This note was created using [employer]. April Barajas is a 18 year old female. HPI Pt was seen about a month ago for pain in her right ear. She was prescribed an ear drop which she states bubbled and burned her ear. She did continue to use them but the ear never improved. She is also getting a wisdom tooth on that side. Review of Systems Constitutional: Negative for fatigue and fever. HENT: Positive for ear pain. Respiratory: Negative for cough. Objective BP 102/60 Pulse 80 Temp 36.6 C (97.9 F) Resp 16 Wt 60 kg (132 lb 4.4 oz) LMP 12/24/2023 (Exact Date) SpO2 99% Physical Exam Vitals and nursing note reviewed. Constitutional: General: She is not in acute distress. Appearance: Normal appearance. She is not ill-appearing. HENT: Head: Normocephalic. Right Ear: Tympanic membrane, ear canal and external ear normal. There is no impacted cerumen. Left Ear: Tympanic membrane, ear canal and external ear normal. There is no impacted cerumen. Mouth/Throat: Mouth: Mucous membranes are moist. Eyes: Conjunctiva/sclera: Conjunctivae normal. Cardiovascular: Rate and Rhythm: Normal rate and regular rhythm. Pulmonary: Effort: Pulmonary effort is normal. Breath sounds: Normal breath sounds. Musculoskeletal: General: Normal range of motion. Cervical back: Normal range of motion. Skin: General: Skin is warm and dry. Neurological: General: No focal deficit present. Mental Status: She is alert. Psychiatric: Mood and Affect: Mood normal. Behavior: Behavior normal. Assessment and Plan ASSESSMENT/PLAN: 1. Ear pain, right - ICD9: 388.70, ICD10: H92.01 Physical exam shows no erythema or swelling of the right tympanic membrane or external ear canal. I see no obvious signs of infection of the external ear structure. There was no obvious sign of dental caries or dental infection. I discussed with the patient that at this point I do not see a need for repeat antibiotic drops or pills. I recommended follow-up with dentistry as a possible source of pain. Also discussed use of ibuprofen or Tylenol as needed for pain. Martínez Lyles APRN.CELINE documented in this encounter [facility] 12-29-2023 Note HNO ID: [id number] Author: JASMIN ENRIQUEZ APRN.CELINE Service: ? Author Type: Nurse Practitioner Type: Progress Notes Filed: 12/29/2023 17:10 Note Text: Subjective UTI Associated symptoms include frequency and hematuria. Pertinent negatives include no chills, no nausea and no vomiting. Ear Problem Pertinent negatives include no abdominal pain or vomiting. Luis Barajas is a 18 year old female who presents with possible ear infection, she states she got water in her ear the other day and had trouble getting it out, then she started to have pain. She has also had some urinary burning and frequency. She had a cystoscopy done on 12/24. States she has a history of PCOS and periods have been irregular, she is currently menstruating. Review of Systems Constitutional: Negative for chills and fever. HENT: Positive for congestion and ear pain. Gastrointestinal: Negative for abdominal pain, nausea and vomiting. Genitourinary: Positive for dysuria, frequency and hematuria. Musculoskeletal: Positive for back pain. BP 129/79 Pulse 94 Temp 36.3 ?C (97.3 ?F) Resp 18 Wt 58.6 kg (129 lb 3 oz) LMP 12/24/2023 (Exact Date) SpO2 100% No past medical history on file. No past surgical history on file. ALLERGIES Patient has no known allergies. MEDICATIONS VITAMIN C 500 mg tablet L. acidophilus-L. salivarius-B. bifidum-S. thermophilus (ACIDOPHILUS PROBIOTIC BLEND) 175 mg capsule SENEXON-S 8.6-50 mg per tablet Cholecalciferol, Vitamin D3, 25 mcg (1,000 unit) cap metFORMIN ER (GLUCOPHAGE XR) 500 mg 24 hr tablet loratadine (CLARITIN ORAL) Take by mouth. melatonin 1 mg tablet Take by mouth. ofloxacin (FLOXIN) 0.3 % otic solution Use 5 Drops in the right ear once daily for 7 days. nitrofurantoin monohydrate and macrocrystal (MACROBID) 100 mg capsule Take 1 capsule by mouth two times a day for 5 days. cabergoline (DOSTINEX) 0.5 mg tablet (Patient not taking: Reported on 12/29/2023) FLOVENT HFA 44 mcg/actuation inhaler (Patient not taking: Reported on 12/29/2023) albuterol HFA (PROVENTIL HFA, VENTOLIN HFA) 90 mcg/actuation inhaler Inhale 2 Puffs as instructed. (Patient not taking: Reported on 12/29/2023) ibuprofen (MOTRIN) 600 mg tablet Take 1 tablet by mouth every 6 hours as needed for Pain. (Patient not taking: Reported on 12/29/2023) PULMICORT 0.5 MG/2 ML NEB SOLUTION use 1-2X daily (Patient not taking: Reported on 11/14/2023) ACCUNEB 0.63 MG/3 ML SOLN FOR INHALATION 1-4X daily (Patient not taking: Reported on 11/14/2023) FAMILY HISTORY Problem Relation Age of Onset Diabetes Maternal Aunt Diabetes Maternal Uncle Asthma Maternal Grandmother Asthma Maternal Uncle Social History Tobacco Use Smoking status: Never Passive exposure: Yes Smokeless tobacco: Never Vaping Use Vaping Use: Never used Objective Physical Exam Vitals and nursing note reviewed. Constitutional: Appearance: Normal appearance. Cardiovascular: Rate and Rhythm: Normal rate and regular rhythm. Heart sounds: Normal heart sounds. Pulmonary: Effort: Pulmonary effort is normal. No respiratory distress. Breath sounds: Normal breath sounds. No wheezing or rales. Abdominal: Tenderness: There is no right CVA tenderness or left CVA tenderness. Skin: General: Skin is warm and dry. Neurological: Mental Status: She is alert. ASSESSMENT/PLAN: 1. Burning with urination - ICD9: 788.1, ICD10: R30.0 (primary diagnosis) acute - UA positive for maegan esterase, hematuria, and proteinuria - Send urine for culture - Begin treatment with Macrobid 100 mg BID for 5 days - Patient education for prevention given - UA DIP, URINE (POC) - URINE CULTURE - NITROFURANTOIN MONOHYDRATE AND MACROCRYSTAL 100 MG ORAL CAP 2. Otalgia of right ear - ICD9: 388.70, ICD10: H92.01 - suspect swimmers ear - OFLOXACIN 0.3 % EAR DROPS - Follow-up with your PCP in 3-5 days if symptoms have not improved or sooner if symptoms worsen - Discussed red flags and need for immediate medical evaluation if any occur. - Discussed supportive care treatment with fluids, rest and analgesia. - Discussed expected course of illness Jasmin Enriquez APRN.[facility] 12-29-2023 History of Present illness Narrative Subjective UTI Associated symptoms include frequency and hematuria. Pertinent negatives include no chills, no nausea and no vomiting. Ear Problem Pertinent negatives include no abdominal pain or vomiting. Luis Barajas is a 18 year old female who presents with possible ear infection, she states she got water in her ear the other day and had trouble getting it out, then she started to have pain. She has also had some urinary burning and frequency. She had a cystoscopy done on 12/24. States she has a history of PCOS and periods have been irregular, she is currently menstruating. Review of Systems Constitutional: Negative for chills and fever. HENT: Positive for congestion and ear pain. Gastrointestinal: Negative for abdominal pain, nausea and vomiting. Genitourinary: Positive for dysuria, frequency and hematuria. Musculoskeletal: Positive for back pain. BP 129/79 Pulse 94 Temp 36.3 C (97.3 F) Resp 18 Wt 58.6 kg (129 lb 3 oz) LMP 12/24/2023 (Exact Date) SpO2 100% No past medical history on file. No past surgical history on file. ALLERGIES Patient has no known allergies. MEDICATIONS VITAMIN C 500 mg tablet L. acidophilus-L. salivarius-B. bifidum-S. thermophilus (ACIDOPHILUS PROBIOTIC BLEND) 175 mg capsule SENEXON-S 8.6-50 mg per tablet Cholecalciferol, Vitamin D3, 25 mcg (1,000 unit) cap metFORMIN ER (GLUCOPHAGE XR) 500 mg 24 hr tablet loratadine (CLARITIN ORAL) Take by mouth. melatonin 1 mg tablet Take by mouth. ofloxacin (FLOXIN) 0.3 % otic solution Use 5 Drops in the right ear once daily for 7 days. nitrofurantoin monohydrate and macrocrystal (MACROBID) 100 mg capsule Take 1 capsule by mouth two times a day for 5 days. cabergoline (DOSTINEX) 0.5 mg tablet (Patient not taking: Reported on 12/29/2023) FLOVENT HFA 44 mcg/actuation inhaler (Patient not taking: Reported on 12/29/2023) albuterol HFA (PROVENTIL HFA, VENTOLIN HFA) 90 mcg/actuation inhaler Inhale 2 Puffs as instructed. (Patient not taking: Reported on 12/29/2023) ibuprofen (MOTRIN) 600 mg tablet Take 1 tablet by mouth every 6 hours as needed for Pain. (Patient not taking: Reported on 12/29/2023) PULMICORT 0.5 MG/2 ML NEB SOLUTION use 1-2X daily (Patient not taking: Reported on 11/14/2023) ACCUNEB 0.63 MG/3 ML SOLN FOR INHALATION 1-4X daily (Patient not taking: Reported on 11/14/2023) FAMILY HISTORY Problem Relation Age of Onset Diabetes Maternal Aunt Diabetes Maternal Uncle Asthma Maternal Grandmother Asthma Maternal Uncle Social History Tobacco Use Smoking status: Never Passive exposure: Yes Smokeless tobacco: Never Vaping Use Vaping Use: Never used Objective Physical Exam Vitals and nursing note reviewed. Constitutional: Appearance: Normal appearance. Cardiovascular: Rate and Rhythm: Normal rate and regular rhythm. Heart sounds: Normal heart sounds. Pulmonary: Effort: Pulmonary effort is normal. No respiratory distress. Breath sounds: Normal breath sounds. No wheezing or rales. Abdominal: Tenderness: There is no right CVA tenderness or left CVA tenderness. Skin: General: Skin is warm and dry. Neurological: Mental Status: She is alert. ASSESSMENT/PLAN: 1. Burning with urination - ICD9: 788.1, ICD10: R30.0 (primary diagnosis) acute - UA positive for maegan esterase, hematuria, and proteinuria - Send urine for culture - Begin treatment with Macrobid 100 mg BID for 5 days - Patient education for prevention given - UA DIP, URINE (POC) - URINE CULTURE - NITROFURANTOIN MONOHYDRATE & MACROCRYSTAL 100 MG ORAL CAP 2. Otalgia of right ear - ICD9: 388.70, ICD10: H92.01 - suspect swimmers ear - OFLOXACIN 0.3 % EAR DROPS - Follow-up with your PCP in 3-5 days if symptoms have not improved or sooner if symptoms worsen - Discussed red flags and need for immediate medical evaluation if any occur. - Discussed supportive care treatment with fluids, rest and analgesia. - Discussed expected course of illness Jasmin Enriquez APRN.CELINE documented in this encounter [facility] 12-29-2023 Instructions Jasmin Enriquez APRN.CELINE - 12/29/2023 5:06 PM EDT ASSESSMENT/PLAN: 1. Burning with urination - ICD9: 788.1, ICD10: R30.0 (primary diagnosis) acute - UA positive for maegan esterase, hematuria, and proteinuria - Send urine for culture - Begin treatment with Macrobid 100 mg BID for 5 days - Patient education for prevention given - UA DIP, URINE (POC) - URINE CULTURE - NITROFURANTOIN MONOHYDRATE & MACROCRYSTAL 100 MG ORAL CAP 2. Otalgia of right ear - ICD9: 388.70, ICD10: H92.01 - suspect swimmers ear - OFLOXACIN 0.3 % EAR DROPS - Follow-up with your PCP in 3-5 days if symptoms have not improved or sooner if symptoms worsen - Discussed red flags and need for immediate medical evaluation if any occur. - Discussed supportive care treatment with fluids, rest and analgesia. - Discussed expected course of illness Jasmin Enriquez APRN.[facility] CARE PATIENT INFO BLADDER INFECTION OVERVIEW Bladder infections are one of the most common infections, causing symptoms of burning with urination and needing to urinate frequently. A bladder infection is a type of urinary tract infection (UTI). Bladder infections are more common is women than men. Most women have an uncomplicated bladder infection that is easily treated with a short course of antibiotics. In men, bladder infections may also affect the prostate gland, and a longer course of treatment may be needed. BLADDER INFECTION CAUSES The urinary tract includes the kidneys (which filter urine), ureters (the tube that carries urine from the kidneys to the bladder), the bladder (which stores urine), and urethra (the tube that carries urine out of the bladder). Bacteria do not normally live in these areas. However, bacteria normally live close to the urethra in women and men who are not circumcised. Bladder infections occur when bacteria travel up the urethra into the bladder. Factors that increase the risk of developing a bladder infection include: Vaginal sex Use of spermicides History of past bladder infections Diabetes In men, not being circumcised or having anal sex increase the risk of bladder infections. BLADDER INFECTION SYMPTOMS The typical symptoms of a bladder infection include: Pain or burning when urinating Frequent need to urinate Urgent need to urinate Blood in the urine Fever, back pain, nausea, or vomiting are not common symptoms of a bladder infection, but can occur in people with a kidney infection (pyelonephritis). If you have these symptoms, you should call your doctor or nurse immediately. Is it a bladder infection or something else? -- Burning with urination can also occur in people with vaginitis (eg, yeast infection) or urethritis (inflammation of the urethra). For this reason, it is important to call your healthcare provider before assuming you have a bladder infection. BLADDER INFECTION DIAGNOSIS Simple bladder infections are usually diagnosed based upon your symptoms alone. However, most patients, especially those who have bladder infection symptoms for the first time, should see a healthcare provider for urine testing. Urine culture -- A urine culture is a test that uses a sample of urine to try and grow bacteria in a laboratory. It usually requires about 48 hours to get results. However, a urine culture is not always required to diagnose a bladder infection. Urine culture is often recommended if: You have never had a bladder infection before You have symptoms that are not typical for bladder infection You have had resistant bladder infections before You have frequent bladder infections You do not begin to feel better within 24 to 48 hours after starting antibiotics You are BLADDER INFECTION TREATMENT Bladder infection -- In young, healthy adolescents and adults with a bladder infection, the usual treatment includes a three to seven day course of antibiotics. The typical drugs chosen are: trimethoprim-sulfamethoxazole (Bactrim ), nitrofurantoin (Macrobid ), ciprofloxacin (Cipro ) or levofloxacin (Levaquin ). In men, the infection may involve your prostate gland and treatment is usually given for at least 7 days. Your symptoms should begin to resolve within one day after starting treatment. It is important to take the full course of antibiotics to completely eliminate the infection. If your symptoms persist for more than two or three days after starting treatment, call your healthcare provider. If needed, you can take a prescription medication that numbs the bladder and urethra (phenazopyridine [Pyridium ]) to reduce the burning pain of some UTIs. A similar medication is available without a prescription (eg, Uristat). Both medications change the color of the urine (usually blue or orange) and can interfere with laboratory testing. You should not take these medications for more than 48 hours due to the risk of side effects. These medications do not treat the infection and must be taken along with an antibiotic. Some providers recommend drinking more fluids while treating bladder infections to help flush bacteria from the bladder. Others believe that drinking more fluids may dilute the antibiotic in the bladder and make the medication less effective. No studies have been performed to address this issue. There are also no good studies on the effectiveness of cranberry juice for treating a bladder infection; we do not recommend using cranberry juice to treat bladder infections. Follow-up care -- Follow-up testing is not needed in healthy, young men or women with a bladder infection if symptoms resolve. women are usually asked to have a repeat urine culture one to two weeks after treatment has ended to make sure the bacteria are no longer in the urine. RECURRENT BLADDER INFECTIONS Bladder infections versus other causes -- Some adults, especially women, develop bladder infections frequently. In this case, it is important to confirm that your symptoms (eg, pain or burning, frequency, and urgency) are caused by a bladder infection. Symptoms are usually similar from one infection to another. The best way to confirm an infection is to have a urine culture. If your urine culture is negative for infection, other causes of pain, burning, and frequency should be investigated. There is no reason to take antibiotics if your urine culture is negative. Need for further testing -- If you continue to develop bladder infections, you may require further testing. If you continue to notice blood in your urine after your bladder infection has cleared, you should have further testing. Preventing recurrent UTIs -- Women with recurrent urinary tract infections may be advised to take steps to prevent bladder infections, including one or more of the following: Changes in control -- Women who develop frequent bladder infections and use spermicides, particularly those who also use a diaphragm, may be encouraged to use an alternate method of control. Cranberry products -- Taking cranberry juice or cranberry tablets has been promoted as one way to help prevent frequent bladder infections. However, this has not been proven. Drinking more fluid and urinating after intercourse -- Although studies have not proven that drinking more fluids or urinating soon after intercourse can prevent infection, some healthcare providers recommend these measures since they are not harmful. Drinking more fluid may help to wash out bacteria that enter the bladder. Postmenopausal women -- Postmenopausal women who develop recurrent bladder infections may benefit from using vaginal estrogen. Vaginal estrogen is available in a flexible ring that is worn in the vagina for three months (eg, Estring ), a small tablet (Vagifem ), or a cream (eg, Premarin or Estrace ). Vaginal estrogen is discussed in more detail in a separate topic review. Antibiotics -- A preventive antibiotic treatment may be recommended if you repeatedly develop bladder infections and have not responded to other preventive measures. Antibiotics are highly effective in preventing recurrent bladder infections and can be taken in several different ways. Preventive antibiotic -- You can take a low dose of an antibiotic once per day or three times per week for six months to several years. Antibiotics following intercourse -- In women who develop urinary tract infections after sex, taking a single low dose antibiotic after intercourse can help to prevent bladder infections. Self-treatment -- A plan to begin antibiotics at the first sign of a bladder infection may be recommended in some situations. Before starting this regimen, it is important that you have had testing (urine cultures) to confirm that your symptoms are caused by a bladder infection; some people have symptoms of a bladder infection but do not actually have an infection. documented in this encounter [facility] 12-24-2023 Procedure note [facility] 11-14-2023 Discharge summary Note Date/Time November 14, 2023 1:42pm [facility] Medical Records Department [address] [place] [address] Emergency Department Summary 11/14/23 MR#: [id number] Acct: [id number] Name: LUIS BARAJAS Rep #:[id number] : 2005 18 From: Alexis Farfan MD PCP: Dr. Mitzy Fung MD Status:REG ER Location: ED HPI History of Present Illness Chief Complaint: Complaint Detail of Chief Complaint: Dysuria, difficulty urinating and possibly passing stones Informant: patient and parent Onset/Context/Timing Onset: Weeks (Onset 2 weeks ago.) Context: Sudden Onset Timing: Intermittent Quality: Burning with urination, difficulty urinating and passing stones Location: Current Severity: Gone Maximum Severity: Moderate Worsened by: Urination Relieved by: Nothing Associated Symptoms Associated Symptoms: No constitutional symptoms of fever, chills or nausea and vomiting Narrative Narrative: Patient is an 18-year-old. She is not sexually active. She is on controlto regulate her menses. Last menstrual cycle was 2 weeks ago. She was seen 2 weeks ago at the [facility] urgent care diagnosed with urinary tract infection. She apparently was placed on cephalexin 500 mg twice daily. The last 2 days she has passed what may have been stones. 1 mother states look likea piece of rice in and out second object that she passed was small pearllike. There is no family history of renal ureterolithiasis. She has a history of endometriosis and polycystic ovarian disease. She is seen by Dr. Tyree Gant. She denies fever, chills night sweats. She denies back or flank pain. She denies nausea or vomiting. She denies cardiac or respiratory symptoms. Mother states she has frequent urinary tract infections. Prior similar symptoms: Yes Recent Illness/Hospitalization: Yes [facility] Medical History (Updated 11/14/23 @ 18:[address] Alexis Farfan MD) ADHD Asthma Endometriosis determined by laparoscopy PCOS (polycystic ovarian syndrome) Home Medications albuterol sulfate 90 mcg/actuation aerosol inhaler (Ventolin HFA) 1 puff inhalation PRN PRN Wheezing 01/10/19 [History Last Taken Unknown] melatonin 5 mg tablet 5 mg PO PRN PRN Insomnia 07/19/19 [History Last Taken Unknown] loratadine 10 mg capsule 10 mg PO DAILY 12/11/20 [History Last Taken Unknown] naproxen 500 mg tablet 500 mg PO Q12H PRN PRN Pain 11/28/22 [History Last Taken Unknown] norethindrone acetate 5 mg tablet 5 mg PO DAILY 11/28/22 [History Last Taken Unknown] cephalexin 500 mg capsule 500 mg PO Q12 #10 CAPSULES 12/01/22 [Rx Last Taken Unknown] cephalexin 500 mg capsule 500 mg PO Q12 #20 CAPSULES 02/04/23 [Rx Last Taken Unknown] ondansetron 4 mg disintegrating tablet 4 mg PO Q8H PRN PRN Nausea #10 tabs 02/04/23 [Rx Last Taken Unknown] naproxen 500 mg tablet (Naprosyn) 500 mg PO BID PRN pain #20 tabs 07/04/23 [Rx Last Taken Unknown] hydrocodone-acetaminophen 5-325mg 5mg-325mg 1 tab PO Q6H PRN PRN Pain 3 days #10TABLETS 09/25/23 [Rx Last Taken Unknown] penicillin V potassium 250 mg tablet 500 mg (2 x 250 mg) PO BID #20 tabs 09/25/23 [Rx Last Taken Unknown] cephalexin 500 mg capsule 500 mg PO Q6 #40 CAPSULES 11/14/23 [Rx Last Taken Unknown] phenazopyridine 200 mg tablet (Pyridium) 200 mg PO TID #10 tabs 11/14/23 [Rx Last Taken Unknown] Allergy/AdvReac Type Severity Reaction Status Date / Time tree and shrub pollen Allergy Other Verified 11/14/23 13:13 Surgical History S/P laparoscopy Social History Smoking Status: Never smoker alcohol intake: never substance use type: does not use ROS ROS ED Constitutional Constitutional ED: Denies chills, fever(s), subjective, sweats or weight loss Eyes Eyes: Denies blurry vision, change in vision or diplopia Cardiovascular Cardiovascular: Denies chest pain or palpitations Respiratory/Chest Respiratory/Chest: Denies cough, dyspnea or dyspnea on exertion Gastrointestinal Gastrointestinal: Reports abdominal pain; Denies constipation, diarrhea, melena,nausea or vomiting Genitourinary Genitourinary ED: Reports dysuria and LMP (females 10-50) Details: Comment: (2 months ago); Denies hematuria or urinary frequency Musculoskeletal Musculoskeletal: Denies arthralgias, back pain, myalgias or neck pain Integumentary Denies rash Endocrine Endocrinology: Denies cold intolerance or heat intolerance Hematologic/Lymphatic Hematologic/Lymphatic: Reports systems reviewed and no addt'l complaints, exceptas documented EXAM Physical Exam Const Vital Signs: 11/14/23 13:07 11/14/23 14:13 11/14/23 14:44 Temperature 97.8 F 97.8 F 97.9 F Temperature Source Temporal Oral Oral Pulse Rate 70 58 L 60 Respiratory Rate 14 16 16 Blood Pressure 114/67 106/59 L 116/61 L Blood Pressure Mean 82 74 79 Pulse Ox 98 99 98 Oxygen Delivery Method Room Air Room Air Room Air 11/14/23 16:00 11/14/23 15:07 Temperature 98.5 F Temperature Source Oral Pulse Rate 88 85 Respiratory Rate 16 16 Blood Pressure 115/60 L 117/62 L Blood Pressure Mean 78 80 Pulse Ox 98 98 Oxygen Delivery Method Room Air Room Air Positive well nourished and well developed General Appearance ED: well developed and NAD HEENT Reports moist mucous membranes HEENT Narrative: Head is atraumatic normocephalic. Ears normal. Nares patent. Posterior pharynx is normal. Eyes PERRL and EOMs intact bilaterally General Eye ED: Negative for pale conjunctiva or scleral icterus Neck no lymphadenopathy, supple and no JVD Resp normal respiratory effort and clear to auscultation bilaterally Cardio regular rate, regular rhythm, S1 normal heart sound, S2 normal heart sound and no murmurs GI normal to inspection, nondistended, normoactive bowel sounds, non-distended and no masses; Negative for non-tender or hepatosplenomegaly Palpation: tender suprapubic Back/Spine no CVA tenderness Extremity normal to inspection Neuro oriented x3 and CN's II-XII intact bilaterally Sensorium / Orientation: alert Psych mental status grossly normal Skin no rashes or lesions noted, no wounds and skin turgor normal General Skin Exam: Negative for jaundice MDM MDM MDM Narrative Medical decision making narrative: If patient was sexually active need to consider STI. Since she is not sexually active this may represent ovarian cyst, urinary tract infection, need to evaluate for renal/ureteral lithiasis in light of the fact that she has passed what appeared to be a small pearllike object when she urinated and then a small oblong fragment. Will obtain serum to rule out . If negative will obtain CT of the abdomen pelvis without contrast to evaluate for renal stones/ureteral stones. UA was obtained to see if there is evidence of infection since she recently completed a 5-day course of either cephalexin or Macrobid. Will obtain BMP to assess renal function and specifically calcium. Also to assess white count differential. Lab Data Labs: Laboratory Results - last 24 hr 11/14/23 11/14/23 13:34 14:20 WBC 8.2 RBC 4.39 Hgb 12.3 Hct 38.6 MCV 87.9 MCH 28.0 MCHC 31.9 L RDW Std Deviation 39.1 RDW Coeff of Ray 12.0 Plt Count 298 MPV 9.8 Immature Gran % (Auto) 0.200 Neut % (Auto) 65.2 H Lymph % (Auto) 27.1 Isabela % (Auto) 5.1 Eos % (Auto) 1.7 Baso % (Auto) 0.7 Absolute Neuts (auto) 5.4 Absolute Lymphs (auto) 2.23 Nucleated RBC % 0 Sodium 140 Potassium 3.9 Chloride 110 H Carbon Dioxide 26.0 Anion Gap 4 L BUN 12 Creatinine 0.80 Estim Creat Clear Calc 102.62 Est GFR (MDRD) Af Amer 120 Est GFR (MDRD) Non-Af 99 BUN/Creatinine Ratio 15.0 Glucose 82 Calcium 8.8 Serum , Qual NEGATIVE Urine Color Yellow Urine Clarity Sl. Cloudy Urine pH 6.5 Ur Specific Meadow 1.015 Urine Protein 30 H Urine Glucose (UA) Normal Urine Ketones 5 H Urine Occult Blood 25 H Urine Nitrite Positive H Urine Bilirubin Negative Urine Urobilinogen 1 H Ur Leukocyte Esterase 500 H Urine RBC 0-5 SEEN Urine WBC 25-50 SEEN Ur Squamous Epith Cells 0-5 SEEN Urine Bacteria 2+ Urine Mucus 0 SEEN Radiography Diagnostic Testing: Clinical Impression(s) from Imaging Studies Abdomen/Pelvis CT 11/14/23 13:36 IMPRESSION: 1. No focal acute inflammatory process. 2. No evidence of urinary tract stones or hydronephrosis. Electronically Signed: Carlo Case MD at 15:39 EDT , Treatment and Re-Evaluation :: Patient and mother were informed of results. They were informed delay was because of acuity. I apologize. They understood. Plan is cephalexin 500 mg 4 times daily x 10 days. She also received Pyridium for her discomfort. Discharge Plan Triage Chief Complaint: Complaint ED Provider: Alexis Farfan Dx/Rx/DC Orders Clinical Impression: Recurrent urinary tract infection Instructions: ED Cystitis Female Adult Prescriptions: New cephalexin [cephalexin] 500 mg capsule 500 mg PO Q6 Qty: 40 0RF phenazopyridine [Pyridium] 200 mg tablet 200 mg PO TID Qty: 10 0RF No Action albuterol sulfate [Ventolin HFA] 108 HFA aerosol inhaler 1 puff inhalation PRN PRN (Reason: Wheezing) melatonin 5 tablet 5 mg PO PRN PRN (Reason: Insomnia) loratadine 10 MG capsule 10 mg PO DAILY norethindrone acetate 5 mg tablet 5 mg PO DAILY naproxen 500 mg tablet 500 mg PO Q12H PRN PRN (Reason: Pain) cephalexin [cephalexin] 500 mg capsule 500 mg PO Q12 Qty: 10 0RF cephalexin 500 mg capsule 500 mg PO Q12 Qty: 20 0RF ondansetron 4 mg tablet,disintegrating 4 mg PO Q8H PRN PRN (Reason: Nausea) Qty: 10 0RF naproxen [Naprosyn] 500 mg tablet 500 mg PO BID PRN (Reason: pain) Qty: 20 0RF hydrocodone-acetaminophen [hydrocodone-acetaminophen] 5-325 mg tablet 1 tab PO Q6H PRN PRN (Reason: Pain) 3 Days Qty: 10 0RF penicillin V potassium 250 mg tablet 500 mg PO BID Qty: 20 0RF Primary Care Provider: Mitzy Fung Referrals: Mitzy Fung MD [Primary Care Provider] - 3-5 Days Disposition Disposition: Home, Self Care What to do if you have Problems For any increased pain, shortness of breath, bleeding, nausea or vomiting, chestpain, or any unexpected problems, contact your Primary Care Provider. Call [facility] ([phone]) or report to the closest Emergency Room. Call 911 if necessary. 11/14/231817 <Electronically signed by Alexis Farfan MD> Cosigner Signature (if applicable): CC: Dr. Mitzy Fung MD ~ Signed [facility] Work Phone: [phone]) 670-670503-23-2024 NoteHNO ID: [id number] Author: LONI ESCOBAR APRN.[employer] Service: ? Author Type: Nurse Practitioner Type: Progress Notes Filed: 11/14/2023 12:51 Note Text: Complaints of severe right flank pain. Patient says she has passed 2 hard Hurt objects through her urethra. Patient says she feels like she is unable to void there is something and they are blocking her from voiding. Patient says the pain is unbearable on and off. At this time patient does not have any history of kidney stones. But due to patient's pain level and inability to urinate appropriately patient is being sent to the ER for full evaluation mother was okay with this care plan.[facility]03-23-2024 History of Present illness Narrative* Loni Escobar APRN.[employer]PERT - 11/14/2023 12:50 PM EDT Complaints of severe right flank pain. Patient says she has passed 2 hard Hurt objects throughher urethra. Patient says she feels like she is unable to void there is something and they are blocking her from voiding. Patient says the pain is unbearable on and off. At this time patient does nothave any history of kidney stones. But due to patient's pain level and inability to urinate appropri ately patient is being sent to the ER for full evaluation mother was okay with this care plan. [facility] Miscellaneous Notes* Telephone Encounter - Ariane Davis RN - 11/02/2023 2:14 PM EDT Pt returned call and given provider's message below with verbalized understanding. * Telephone Encounter - Stefany Olivo MA - 10/31/2023 1:58 PM EST left message with mom to return call. Stefany Olivo MA * Telephone Encounter - Moe Simons MD - 10/31/2023 1:40 PM EST Vaginal swab was positive for yeast. Diflucan prescribed at the visit should help with this. Urine culture is pending; continue nitrofurantoin. [facility] NoteHNO ID: [id number] Author: LILLIAN SANCHEZ APRN.CELINE Service: ? Author Type: Nurse Practitioner Type: Progress Notes Filed: 10/30/2023 16:18 Note Text: This note was created using Media Ingenuityriter. Subjective Luis Barajas is a 18 year old female. 18 year old female with PMH asthma presents for complaints. Acute onset of symptoms was 3 days ago +burning +frequency +urgency +suprapubic pressure Denies flank pain Denies fever or chills Denies vaginal discharge. Denies vaginal bleeding LMP-irregular, last week Denies sexual activity Endorses this feels similar to prior UTI's The history is provided by the patient. No science interpreter was used. UTI This is a new problem. The current episode started more than 2 days ago. The problem occurs every urination. The problem has been gradually worsening. The quality of the pain is described as burning. The pain is at a severity of 5/10. There has been no fever. She is Not sexually active. There is No history of pyelonephritis. Associated symptoms include frequency. Pertinent negatives include no chills, no sweats, no nausea, no vomiting, no discharge, no hematuria, no hesitancy, no possible , no urgency and no flank pain. She has tried nothing for the symptoms. Her past medical history does not include kidney stones, single kidney, urological procedure, recurrent UTIs, urinary stasis or catheterization. No past medical history on file. No past surgical history on file. ALLERGIES Patient has no known allergies. MEDICATIONS cabergoline (DOSTINEX) 0.5 mg tablet Cholecalciferol, Vitamin D3, 25 mcg (1,000 unit) cap FLOVENT HFA 44 mcg/actuation inhaler metFORMIN ER (GLUCOPHAGE XR) 500 mg 24 hr tablet loratadine (CLARITIN ORAL) Take by mouth. melatonin 1 mg tablet Take by mouth. albuterol HFA (PROVENTIL HFA, VENTOLIN HFA) 90 mcg/actuation inhaler Inhale 2 Puffs as instructed. ibuprofen (MOTRIN) 600 mg tablet Take 1 tablet by mouth every 6 hours as needed for Pain. nitrofurantoin monohydrate and macrocrystal (MACROBID) 100 mg capsule Take 1 capsule by mouth two times a day for 5 days. fluconazole (DIFLUCAN) 150 mg tablet Take 1 tablet by mouth once daily for 1 day. PULMICORT 0.5 MG/2 ML NEB SOLUTION use [...] Never Vaping Use Vaping Use: Never used Review of Systems Constitutional: Negative for chills. Eyes: Negative for pain, discharge, redness and itching. Respiratory: Negative for apnea, cough, choking, chest tightness and shortness of breath. Cardiovascular: Negative for chest pain, palpitations and leg swelling. Gastrointestinal: Negative for abdominal pain, nausea and vomiting. Genitourinary: Positive for dysuria and frequency. Negative for flank pain, hematuria, hesitancy and urgency. Skin: Negative for color change, pallor, rash and wound. Allergic/Immunologic: Negative for environmental allergies, food allergies and immunocompromised state. Neurological: Negative for dizziness, seizures, facial asymmetry, light-headedness, numbness and headaches. Hematological: Negative for adenopathy. Does not bruise/bleed easily. Psychiatric/Behavioral: Negative for agitation and behavioral problems. Objective LMP 05/11/2022 BP 114/74 Pulse 102 Temp 36.6 ?C (97.8 ?F) Resp 18 Wt 58.8 kg (129 lb 10.1 oz) LMP 10/19/2023 (Within Days) SpO2 99% Physical Exam Vitals and nursing note reviewed. Constitutional: General: She is not in acute distress. Appearance: Normal appearance. She is normal weight. She is not ill-appearing, toxic-appearing or diaphoretic. HENT: Head: Normocephalic and atraumatic. Right Ear: Ear canal and external ear normal. Left Ear: Ear canal and external ear normal. Nose: Nose normal. No congestion or rhinorrhea. Mouth/Throat: Mouth: Mucous membranes are moist. Pharynx: No oropharyngeal exudate or posterior oropharyngeal erythema. Eyes: General: Right eye: No discharge. Left eye: No discharge. Extraocular Movements: Extraocular movements intact. Conjunctiva/sclera: Conjunctivae normal. Pupils: Pupils are equal, round, and reactive to light. Cardiovascular: Rate and Rhythm: Normal rate and regular rhythm. Pulses: Normal pulses. Heart sounds: Normal heart sounds. No murmur heard. No friction rub. Pulmonary: Effort: Pulmonary effort is normal. No respiratory distress. Breath sounds: Normal breath sounds. No stridor. No wheezing, rhonchi or rales. Chest: Chest wall: No tenderness. Abdominal: General: Abdomen is flat. There is no distension. Palpations: Abdomen is soft. There is n (more content not included)...[facility]03-08-2024 History of Present illness Narrative* Lillian Sanchez APRN.SOIL EXPERT - 10/30/2023 4:02 PM EST This note was created using Media Ingenuityriter. Subjective Luis Barajas is a 18 year old female. 18 year old female with PMH asthma presents for complaints. Acute onset of symptoms was 3 days ago +burning +frequency +urgency +suprapubic pressure Denies flank pain Denies fever or chills Denies vaginal discharge. Denies vaginal bleeding LMP-irregular, last week Denies sexual activity Endorses this feels similar to prior UTI's The history is provided by the patient. No science interpreter was used. UTI This is a new problem. The current episode started more than 2 days ago. The problem occurs every urination. The problem has been gradually worsening. The quality of the pain is described as burning.The pain is at a severity of 5/10. There has been no fever. She is Not sexually active. There is Nohistory of pyelonephritis. Associated symptoms include frequency. Pertinent negatives include no chills, no sweats, no nausea, no vomiting, no discharge, no hematuria, no hesitancy, no possible , no urgency and no flank pain. She has tried nothing for the symptoms. Her past medical historydoes not include kidney stones, single kidney, urological procedure, recurrent UTIs, urinary stasisor catheterization. No past medical history on file. No past surgical history on file. ALLERGIES Patient has no known allergies. MEDICATIONS cabergoline (DOSTINEX) 0.5 mg tablet Cholecalciferol, Vitamin D3, 25 mcg (1,000 unit) cap FLOVENT HFA 44 mcg/actuation inhaler metFORMIN ER (GLUCOPHAGE XR) 500 mg 24 hr tablet loratadine (CLARITIN ORAL) Take by mouth. melatonin 1 mg tablet Take by mouth. albuterol HFA (PROVENTIL HFA, VENTOLIN HFA) 90 mcg/actuation inhaler Inhale 2 Puffs as instructed. ibuprofen (MOTRIN) 600 mg tablet Take 1 tablet by mouth every 6 hours as needed for Pain. nitrofurantoin monohydrate and macrocrystal (MACROBID) 100 mg capsule Take 1 capsule by mouth two times a day for 5 days. fluconazole (DIFLUCAN) 150 mg tablet Take 1 tablet by mouth once daily for 1 day. PULMICORT 0.5 MG/2 ML NEB SOLUTION use [...] Never Vaping Use Vaping Use: Never used Review of Systems Constitutional: Negative for chills. Eyes: Negative for pain, discharge, redness and itching. Respiratory: Negative for apnea, cough, choking, chest tightness and shortness of breath. Cardiovascular: Negative for chest pain, palpitations and leg swelling. Gastrointestinal: Negative for abdominal pain, nausea and vomiting. Genitourinary: Positive for dysuria and frequency. Negative for flank pain, hematuria, hesitancy and urgency. Skin: Negative for color change, pallor, rash and wound. Allergic/Immunologic: Negative for environmental allergies, food allergies and immunocompromised state. Neurological: Negative for dizziness, seizures, facial asymmetry, light- headedness, numbness and headaches. Hematological: Negative for adenopathy. Does not bruise/bleed easily. Psychiatric/Behavioral: Negative for agitation and behavioral problems. Objective LMP 05/11/2022 BP 114/74 Pulse 102 Temp 36.6 C (97.8 F) Resp 18 Wt 58.8 kg (129 lb 10.1 oz) LMP 10/19/2023 (Within Days) SpO2 99% Physical Exam Vitals and nursing note reviewed. Constitutional: General: She is not in acute distress. Appearance: Normal appearance. She is normal weight. She is not ill-appearing, toxic-appearing or diaphoretic. HENT: Head: Normocephalic and atraumatic. Right Ear: Ear canal and external ear normal. Left Ear: Ear canal and external ear normal. Nose: Nose normal. No congestion or rhinorrhea. Mouth/Throat: Mouth: Mucous membranes are moist. Pharynx: No oropharyngeal exudate or posterior oropharyngeal erythema. Eyes: General: Right eye: No discharge. Left eye: No discharge. Extraocular Movements: Extraocular movements intact. Conjunctiva/sclera: Conjunctivae normal. Pupils: Pupils are equal, round, and reactive to light. Cardiovascular: Rate and Rhythm: Normal rate and regular rhythm. Pulses: Normal pulses. Heart sounds: Normal heart sounds. No murmur heard. No friction rub. Pulmonary: Effort: Pulmonary effort is normal. No respiratory distress. Breath sounds: Normal breath sounds. No stridor. No wheezing, rhonchi or rales. Chest: Chest wall: No tenderness. Abdominal: General: Abdomen is flat. There is no distension. Palpations: Abdomen is soft. There is no mass. Tenderness: There is no abdominal tenderness. There is no right CVA tenderness, left CVA tenderness, guarding or rebound. Hernia: No hernia is present. Musculoskeletal: General: No swelling, tenderness, deformity or signs of injury. Normal range of motion. Cervical back: Normal range of motion and neck supple. No rigidity. Right lower leg: No edema. Left lower leg: No edema. Lymphadenopathy: Cervical: No cervical adenopathy. Skin: General: Skin is warm and dry. Capillary Refill: Capillary refill takes less than 2 seconds. Coloration: Skin is not jaundiced or pale. Findings: No bruising, erythema, lesion or rash. Neurological: General: No focal deficit present. Mental Status: She is alert and oriented to person, place, and time. Cranial Nerves: No cranial nerve deficit. Sensory: No sensory deficit. Motor: No weakness. Coordination: Coordination normal. Gait: Gait normal. Psychiatric: Mood and Affect: Mood normal. Behavior: Behavior normal. Thought Content: Thought content normal. Judgment: Judgment normal. Assessment and Plan ASSESSMENT/PLAN: 1. Dysuria - ICD9: 788.1, ICD10: R30.0 acute - UA positive for maegan esterase, hematuria, and proteinuria - Send urine for culture - Begin treatment with Macrobid 100 mg BID for 5 days - Patient education for prevention given Obtained self swabs for prince and BV - UA DIP, URINE (POC) - URINE CULTURE - PRINCE/TRICHOMONAS NAAT - BACTERIAL VAGINOSIS NAAT Lillian Sanchez APRN.SOIL EXPERT documented [facility] Nurse Note* Brigette Rincon MA - 08/02/2023 11:02 AM EST Pt returned for a urine culture recheck, due to contamination. Brigette Rincon MA documented in this encounterK[facility]12-07-2023 Miscellaneous Notes* Telephone Encounter - Leta Raymundo LPN - 07/30/2023 7:24 PM EST Patient's mother given results and verbalized understanding of instructions given. Leta Raymundo LPN * Telephone Encounter - Lillian Sanchez APRN.CELINE - 07/30/2023 3:57 PM EST Please inform patient urine culture revealed mixed bacterial growth. If patient would like, can provide another urine specimen. I have placed an order . Would just need to represent to express care as nurse visit Patient should follow up with PCP for continued symptoms. documented in this encounterK[facility]12-[facility]-2023 History of Present illness Narrative* Ivonne Dawson APRN.CELINE - 07/28/2023 7:07 PM EST SUBJECTIVE: Luis Barajas is a 18 year old female. Who presents today with concerns for a UTI. Her last one was about a month ago. She has burning with urination and frequency that started 1 to 1 1/2 week. Shehas not taken any medications and has no [...] 6 hours as needed for Pain. 30 tablet0 PULMICORT 0.5 MG/2 ML NEB SOLUTION use [...] CULTURE - CONSULT TO UROLOGY Ivonne Dawson APRN.CELINE documented in this encounterK[facility]04-07-[address] De La Torre [facility] November 28, 2022 6:52pm Note Date/Time November 28, 2022 3:09 pm [facility] Medical Records Department [address] [place] [address] Emergency Department Summary 11/28/22 MR#: [id number] Acct: [id number] Name: LUIS BARAJAS Rep #:[id number] : 2005 17 From: Vishal De La Torre MD PCP: Dr. Mitzy Fung MD Status:REG ER Location: ED HPI HPI - GI History of Present Illness Chief Complaint: Abd Pain Informant: patient and parent (Mother) Abdominal Pain/Flank Pain Onset: Hours (2) Context: Sudden Onset (Started with some mild sharp discomfort and then suddenlymoderate-severe) Timing: Continuous Quality: Aching Location: RLQ (Without migration or radiation) Current Severity: Moderate Maximum Severity: Moderate Worsened by: Nothing Relieved by: Nothing Nausea/Vomiting/Emesis GI Symptom: Negative for Nausea or Vomiting Diarrhea/Melena/Hematochezia GI Symptom: Negative for Diarrhea, Melena or Hematochezia Associated Symptoms Associated Symptoms: Negative for Dysuria, Frequency or Hematuria Narrative Narrative: Patient presents for another episode of abdominal pain that is not quite as severe as the episode she had a week ago, but at that time she refused a transvaginal ultrasound to evaluate her ovary for torsion, and out of concern for how much pain she was having, she was taken to the OR for laparoscopy where a nontorsed ovary was seen, there was a small cyst, and endometriosis was found in the posterior cul-de-sac and bilateral ovarian fossae. Mom states she brought her back as soon as the pain started again today as advised by her operating trimmer and reinforcer Dr. Alfreda Clements. Patient took naproxen prior to coming here. She states the pain is significant but not nearly as bad as it was before, but she states it is the exact same painin the exact same location. Her last menstrual period was about 2 weeks ago, she did have some bleeding/spotting for about 2 days after her her laparoscopy, but none otherwise since then. She has felt well until the pain restarted 2 hours prior to evaluation. [facility] Medical History (Updated 11/28/22 @ 18:[address] Vishal De La Torre MD) ADHD Asthma Endometriosis determined by laparoscopy Home Medications albuterol sulfate 90 mcg/actuation aerosol inhaler (Ventolin HFA) 1 puff inhalation PRN PRN Wheezing 01/10/19 [History Last Taken Unknown] melatonin 5 mg tablet 5 mg PO PRN PRN Insomnia 07/19/19 [History Last Taken Unknown] loratadine 10 mg capsule 10 mg PO DAILY 12/11/20 [History Last Taken Unknown] naproxen 500 mg tablet 500 mg PO Q12H PRN PRN Pain 11/28/22 [History Last Taken Unknown] norethindrone acetate 5 mg tablet 5 mg PO DAILY 11/28/22 [History Last Taken Unknown] Allergy/AdvReac Type Severity Reaction Status Date / Time No Known Allergies Allergy Verified 11/28/22 14:21 Surgical History S/P laparoscopy Social History Smoking Status: Never smoker alcohol intake: never substance use type: does not use ROS ROS ED Constitutional Constitutional ED: Denies chills or fever(s) Eyes Eyes: Denies change in vision or diplopia ENT ENT ED: Denies rhinorrhea or sore throat Cardiovascular Cardiovascular: Denies chest pain or palpitations Respiratory/Chest Respiratory/Chest: Denies cough or dyspnea Gastrointestinal Gastrointestinal: Reports abdominal pain; Denies diarrhea, nausea or vomiting Genitourinary Genitourinary ED: Denies dysuria or hematuria Musculoskeletal Musculoskeletal: Denies back pain or neck pain Integumentary Denies abscess or rash Neurologic Neurologic: Denies headache(s), paresthesias or weakness Psychiatric Psychiatric: Reports anxiety; Denies suicidal thoughts EXAM Physical Exam Const Vital Signs: 11/28/22 14:19 11/28/22 18:28 Temperature 98 F Temperature Source Temporal Pulse Rate 96 H Respiratory Rate 18 18 Blood Pressure 129/85 H Blood Pressure Mean 99 Pulse Ox 100 Oxygen Delivery Method Room Air Room Air Positive well nourished and well developed Constitutional Narrative: Well-appearing General Appearance ED: well developed and NAD HEENT Reports moist mucous membranes normocephalic and atraumatic Eyes PERRL and EOMs intact bilaterally Neck full ROM and supple Resp normal respiratory effort and clear to auscultation bilaterally Cardio regular rate, regular rhythm and no murmurs GI non-distended GI Narrative: Patient is diffusely tender except for the left side of the abdomen. She has voluntary guarding and refuses further examination, becoming emotionally hysterical. She easily consoles to family and is able to have normal discussions afterwards and is then well-appearing. Auscultation: normoactive bowel sounds Palpation: soft Back/Spine no CVA tenderness General Back: other FROM Extremity normal to inspection General Extremety ED: Negative for edema, pulses abnormal or tenderness General Extremity: Negative for edema or pulses abnormal Neuro oriented x3, CN's II-XII intact bilaterally, no sensory deficits noted and gait normal Sensorium / Orientation: awake and alert Motor Exam: strength 5/5 throughout Psych thought process normal Mood & Affect: anxious Skin no rashes or lesions noted and no wounds MDM MDM MDM Narrative Medical decision making narrative: I discussed with Dr. Alfreda Clements. She agrees that if the symptoms are the samein the same location, and she is midcycle it is much less likely to be ovarian torsion in context of what she is all in laparoscopy but she recommends an ultrasound. The patient is very anxious and she refused transvaginal ultrasoundbefore, but after having a long talk with her and parents she is willing to undergo it at this time, especially since before it resulted in her going to a laparoscopy. She is offered pain medication and prophylactic nausea medication. Labs were obtained and she was able to obtain an IV. Patient did except the morphine, she felt much better afterwards, she was here for about 3 to 4 hours and did not have recurrence of her pain and felt much better, laughing and smiling on reevaluation, conversive and doing well. Her ultrasound was reviewed by myself, in addition to the interpretation, I agree with it, she does not have torsion, the ovary is not enlarged, there is no acutepathology seen, she does have some free fluid, it is consistent with physiologicin amount, it could be consistent with a ruptured ovarian cyst as well. Mittelschmerz is also in the differential diagnosis here. Discussed with Dr. Alfreda Clements again who agrees with discharging her home with close outpatient follow-up, it sounds like she is also following up with gynecology specialist [facility], I encouraged mom to keep that appointment. Urinalysis did showsome signs of possible infection, she has had no urinary symptoms, I am sending out for a culture but she does not require any antibiotics at this time. Lab Data Attestation: I reviewed the patient's lab results. Labs: Laboratory Results - last 24 hr 11/28/22 11/28/22 11/28/22 14:50 14:50 16:15 WBC 9.3 RBC 4.53 Hgb 12.8 Hct 39.0 MCV 86.1 MCH 28.3 MCHC 32.8 RDW Std Deviation 36.8 RDW Coeff of Ray 11.7 Plt Count 347 MPV 9.8 Immature Gran % (Auto) 0.200 Neut % (Auto) 62.9 Lymph % (Auto) 29.3 Isabela % (Auto) 5.6 Eos % (Auto) 1.5 Baso % (Auto) 0.5 Absolute Neuts (auto) 5.8 Absolute Lymphs (auto) 2.71 Nucleated RBC % 0 Sodium 141 Potassium 3.5 Chloride 108 H Carbon Dioxide 26.0 Anion Gap 7 BUN 10 Creatinine 0.82 Estim Creat Clear Calc 96.86 Est GFR (MDRD) Af Amer TNP Est GFR (MDRD) Non-Af TNP BUN/Creatinine Ratio 12.1 Glucose 75 Calcium 9.3 Urine Color Yellow Urine Clarity Sl. Cloudy Urine pH 8.0 Ur Specific Meadow 1.015 Urine Protein Negative Urine Glucose (UA) Normal Urine Ketones 5 H Urine Occult Blood 25 H Urine Nitrite Negative Urine Bilirubin Negative Urine Urobilinogen Normal Ur Leukocyte Esterase 500 H Urine RBC 0-5 SEEN Urine WBC 25-50 SEEN Ur Squamous Epith Cells 0-5 SEEN Urine Bacteria RARE Urine Mucus RARE Radiography Diagnostic Testing: Clinical Impression(s) from Imaging Studies Transvaginal US 11/28/22 14:55 IMPRESSION: Mild free fluid, likely physiologic in a patient of reproductive age. Otherwise negative study. Electronically Signed: Chayo Coello MD at 16:52 EDT Reading Location ID and State: [id number] / Tel , Service support , Discharge Plan Triage Chief Complaint: Abd Pain ED Provider: Vishal De La Torre Dx/Rx/DC Orders Clinical Impression: Acute pain in female pelvis Instructions: Treating a Ruptured Ovarian Cyst, ED Mid-Cycle Pain (Mittelschgina) Prescriptions: No Action albuterol sulfate [Ventolin HFA] 108 HFA aerosol inhaler 1 puff inhalation PRN PRN (Reason: Wheezing) melatonin 5 tablet 5 mg PO PRN PRN (Reason: Insomnia) loratadine 10 MG capsule 10 mg PO DAILY norethindrone acetate 5 mg tablet 5 mg PO DAILY naproxen 500 mg tablet 500 mg PO Q12H PRN PRN (Reason: Pain) Primary Care Provider: Mitzy Fung Referrals: Mitzy Fung MD [Primary Care Provider] - Doctor,Your [Non-Staff] - Keep Cory appointment Disposition Disposition: Home, Self Care What to do if you have Problems For any increased pain, shortness of breath, bleeding, nausea or vomiting, chestpain, or any unexpected problems, contact your Primary Care Provider. Call [facility] ([phone]) or report to the closest Emergency Room. Call 911 if necessary. 11/28/221851 <Electronically signed by Vishal De La Torre MD> Cosigner Signature (if applicable): CC: Dr. Mitzy Fung MD; Dr. Mara Clements MD ~ Signed [facility] Work Phone: 1(886) 142-626803-28-2023 Procedure [facility] 11-18-2022 History and physical note Author Dr. Clements [facility] November 18, 2022 3:01am Note Date/Time November 18, 2022 12: 23am [facility] Medical Records Department [address] [place] [address] History & Physical Exam 11/18/22 0017 MR#: [id number] Acct: [id number] Name: LUIS BARAJAS Rep #:[id number] : 2005 17 From: Mara villegas MD PCP: Dr. Mitzy Fung MD Status:[facility] Location: [place] [address] HPI - General General Date of Service: 11/18/22 Chief Complaint: belly pain HPI Narrative LUIS BARAJAS, is a 17 F 0 LMP 11/12/22 who presents with c/o right lower abdominal pain. She is accompanied by her mother, father and sister. Pain started 7 days ago and waxed and waned. She was seen in the ER 11/12/[address] A/P showed a 4cm R. ovarian cyst. Patient returned to the ER this evening after experience a pressure sensation as if something popped, followed by severe painfulness. Reports she recently completed antibiotics for UTI diagnosed 2 weeks ago. [facility] Medical History ADHD Asthma Home Medications albuterol sulfate 90 mcg/actuation aerosol inhaler (Ventolin HFA) 1 puff inhalation PRN PRN Wheezing 01/10/19 [History Last Taken Unknown] melatonin 5 mg tablet 5 mg PO PRN PRN Insomnia 07/19/19 [History Last Taken Unknown] loratadine 10 mg capsule 10 mg PO DAILY 12/11/20 [History Last Taken Unknown] amoxicillin 500 mg tablet 500 mg PO TID #30 tabs 08/26/22 [Rx Last Taken Unknown] Allergy/AdvReac Type Severity Reaction Status Date / Time No Known Allergies Allergy Verified 11/12/22 09:49 Family History no significant family his no significant family history Surgical History no surgical history no surgical history Social History (Updated 11/18/22 @ 00:[address] Mara Clements MD) Smoking Status: Never smoker alcohol intake: never substance use type: does not use ROS Constitutional Constitutional: Denies fever(s) Gastrointestinal Gastrointestinal: Reports abdominal pain; Denies constipation, diarrhea, nausea or vomiting Genitourinary Genitourinary: Reports low back pain and other Details: spotting, recently finished period ; Denies difficulty urinating, dysuria, hematuria or polyuria Vital Signs Vital Signs Vital Signs: 11/17/22 22:26 11/17/22 22:26 Temperature 98.3 F Temperature Source Temporal Pulse Rate 105 H Respiratory Rate 30 H Blood Pressure 169/97 H Blood Pressure Mean 121 Pulse Ox 99 Oxygen Delivery Method Room Air Physical Exam Const alert Constitutional Narrative: visibly uncomfortable HEENT normocephalic and head/scalp atraumatic Resp normal respiratory effort and normal air movement Cardio regular rate and regular rhythm GI normal to inspection, nondistended, normoactive bowel sounds GI Narrative: tenderness to palpation in the right lower quadrant and voluntary guarding without rebound tenderness Extremity normal to inspection Neuro oriented x3 and moves all extremities Neuro Narrative: no gross motor deficits Psych mental status grossly normal Results Lab / Micro Data Attestation: I reviewed the patient's lab results. Result Diagrams: 11/17/22 22:41 11/17/22 22:41 Labs: Laboratory Results - last 24 hr 11/17/22 22:41: WBC 13.3 H, RBC 5.17 H, Hgb 15.0, Hct 44.6, MCV 86.3, MCH 29.0, MCHC 33.6, RDW Std Deviation 37.1, RDW Coeff of Ray 11.8, Plt Count 471 H, MPV 9.6, Immature Gran % (Auto) 0.300, Neut % (Auto) 41.2, Lymph % (Auto) 50.2 H, Isabela % (Auto) 6.4 H, Eos % (Auto) 1.4, Baso % (Auto) 0.5, Absolute Neuts (auto) 5.5, Absolute Lymphs (auto) 6.68 H, Nucleated RBC % 0, Differential Comment SCANNED, Atypical Lymphocytes 1+ 11/17/22 22:41: PT 12.5, INR 1.0, APTT 30.9 11/17/22 22:41: Sodium 140, Potassium 3.8, Chloride 108 H, Carbon Dioxide 27.0, Anion Gap 5, BUN 14, Creatinine 0.93, Est GFR (MDRD) Af Amer TNP, Est GFR (MDRD)Non-Af TNP, BUN/Creatinine Ratio 15.1, Glucose 60 L, Calcium 9.2 11/17/22 22:41: Lactic Acid 3.1 H* 11/17/22 22:50: Blood Type A POSITIVE, Antibody Screen NEGATIVE Radiology Impression Pelvis Ultrasound 11/17/22 22:36 IMPRESSION: Unremarkable pelvic ultrasound. Electronically Signed: Ara Burton MD at 0:14 EDT , Assessment & Plan Assessment/Plan (1) Ovarian torsion: PLAN: Patient refused TVUS and transabdominal views suboptimal to assess adnexa.Discussed role of TVUS and patient again declined. Reviewed CT from 11/12/22 and given exam suspect R. ovarian torsion. Dfdx cyst rupture, early appendicitis. I advised diagnostic laparoscopy with ovarian detorsion, R. ovarian cystectomy versus drainage depending on appearance. Reviewed procedural r/b/i/a with patient, parents and sister. Questions answered to their satisfaction. Proceed as planned with laparoscopy. Consents signed. Transfusion acceptable. 11/18/22 0301 <Electronically signed by Mara Clements MD> Cosigner Signature (if applicable): CC: Dr. Mitzy Fung MD; Dr. Mara Clements MD~ Signed [facility] Work Phone: 1(777) 732-373401-03-2023 Miscellaneous Notes* Telephone Encounter - Nasrin Villavicencio LPN - 08/26/2022 8:58 AM EST Patient's mother notified.Nasrin Villavicencio LPN * Telephone Encounter - Ashleigh Fang LPN - 08/26/2022 8:22 AM EST Patient mother Flor returned call and went over results, notes from express care provider with understanding. * Telephone Encounter - Ellie Felipe LPN - 08/26/2022 7:24 AM EST Phone call placed, brief message to contact a nurse for results. Ellie Felipe LPN * Telephone Encounter - Ellie Felipe LPN - 08/26/2022 7:22 AM EST ----- Message from Jasmin Enriquez APRN.SOIL EXPERT sent at 08/26/2022 7:21 AM EST ----- Please advise parent of Luis the COVID, flu, RSV test is negative. documented in this [facility] History of Present illness Narrative* Moe Simons MD - 08/25/2022 4:27 PM EST Patient presents with: Sore Throat: AGUILERA, BEATRIZ [...] pain, shortness of breath, and lethargy; in theER if severe. - COVID, FLU A/B + RSV, ROUTINE Moe Simons MD documented in this encounterK[facility]11-02-2022 Miscellaneous Notes* Telephone Encounter - Stefany Velazquezley - 06/25/2022 11:14 AM EDT Patient given results and verbalized understanding of instructions given. Stefany Pallavi * Telephone Encounter - Lillian Sanchez APRN.CNP - 06/25/2022 10:02 AM EDT Patient tested positive for BV. Flagyl sent into [facility]. Please reach out and inform patient. This is not an STI. [facility] documented in this encounterK[facility]11-01-2022 History of Present illness Narrative* Gus Munroe APRN.CNP - 06/24/2022 8:33 AM EDT Subjective HPI Nontoxic-appearing female presents urgent care chief complaint possible bladder infection. Durationof symptoms 1 day. Associated symptoms urinary frequency [...] reevaluation discussed. Supportive therapies discussed. Caregiver verbalized und erstanding agrees with plan of care. Gus Munroe APRN.CELINE [facility] History of Present illness Narrative* Gus Munroe APRN.CNP - 01/17/2022 1:04 PM EDT Subjective HPI Nontoxic-appearing female presents urgent care [...] ICD10: R10.9 (primary diagnosis) - CONSULT TO [facility] 2. Acute sinusitis, recurrence not specified, unspecified location - ICD9: 461.9, ICD10: J01.90 Patient diagnosed with maxillary sinusitis. Patient was placed on amoxicillin. Will follow up with PCP for reevaluation 2 to 3 days symptoms are not improving. Additionally patient will be referred to [facility]. Patient states she has had ongoing suprapubic tenderness ever since she has been diagnosedwith a UTI this has been several months ago. Red flags for prompt reevaluation discussed. Will be seen in urgent care or ED for any new or worsening symptoms. Patient/mother verbalized understanding agrees with plan of care Gus Munroe APRN.SOIL EXPERT documented in this encounterUC Health summary Author Dr. Clements [facility] November 18, 2022 3:17am Note Date/Time November 18, 2022 3:1 4am [facility] Medical Records Department [address] [place] [address] Instructions for Home/Discharge Instructions 11/18/22 0311 MR#: [id number] Acct: [id number] Name: LUIS BARAJAS Rep #:[id number] : 2005 17 From: Mara villegas MD PCP: Dr. Mitzy Fung MD Status:REG [facility] Discharge Instructions Diet Discharge Diet: No restrictions Activity Discharge Activity: Return to Normal Activity Lifting Restrictions: 10-20 lb for 2 weeks Dressing / Incision Call your doctor if your incision/area has: Continuous Slow Oozing, Sudden Increased Bleeding, Increased Pain/ Swelling, Increased Redness, Foul Smelling Discharge and Swelling at the incision site Call your doctor if you observe: Inability to urinate, Inability to have a bowelmovement, Shortness of breath, Chest pain, Calf discomfort, Uncontrolled pain and - (Fever 100.4 or higher) Suture Line Care: Avoid Pulling/Pushing Remove Dressing in: 1 day Cleanse incision/area with: Soap & Water Follow Up Care Please Follow Up With: Mara Allen MD When: Follow up with [facility]'s as scheduled or call [phone] Alfreda Clements Test Results: Test results from this visit will be discussed in further detail at your follow- up appointment, if applicable. Discharge Plan Admission Primary Reason for Your Visit: Abdominal pain, Ovarian torsion Attending Provider: Mara Allen Primary Care Provider: Mitzy Fung Instructions Patient Instructions: Pelvic Laparoscopy Discharge Orders/Prescriptions Prescriptions: No Action albuterol sulfate [Ventolin HFA] 108 HFA aerosol inhaler 1 puff inhalation PRN PRN (Reason: Wheezing) melatonin 5 tablet 5 mg PO PRN PRN (Reason: Insomnia) loratadine 10 MG capsule 10 mg PO DAILY amoxicillin 500 mg tablet 500 mg PO TID Qty: 30 0RF Referrals / Follow Up: Mitzy Fung MD [Primary Care Provider] - Disposition Disposition (needs filled in before D/C Order can be placed): Home, Self Care 11/18/22316<Electronically signed by Mara Clements MD>Mara Clements MD CC: Dr. Mitzy Fung MD ~ Signed [facility] Work Phone: Discharge summary Author Leny Ruano [facility] December 24, 2023 9:01am Note Date/Time December 24, 2023 9:01am [facility] Medical Records Department [address] [place] [address] Instructions for Home/Discharge Instructions 12/24/23 0900 MR#: [id number] Acct: [id number] Name: LUIS BARAJAS Rep #:[id number] : 2005 18 From: Leny Robison PCP: Dr. Mitzy Fung MD Status:REG [facility] Discharge Instructions Diet Discharge Diet: No restrictions Activity Discharge Activity: Return to Normal Activity Dressing / Incision Call your doctor if you observe: Fever of 101 or Higher, Inability to urinate and Inability to have a bowel movement Follow Up Care Please Follow Up With: Leny Ruano MD When: Follow-up in the office in 3 months, sooner if issues. Test Results: Test results from this visit will be discussed in further detail at your follow- up appointment, if applicable. Discharge Plan Admission Attending Provider: Leny Ruano Primary Care Provider: Mitzy Fung Discharge Orders/Prescriptions Prescriptions: Continued albuterol sulfate [Ventolin HFA] 108 HFA aerosol inhaler 1 puff inhalation PRN PRN (Reason: Wheezing) melatonin 5 tablet 5 mg PO PRN PRN (Reason: Insomnia) loratadine 10 MG capsule 10 mg PO DAILY norethindrone acetate 5 mg tablet 5 mg PO DAILY naproxen 500 mg tablet 500 mg PO Q12H PRN PRN (Reason: Pain) hydrocodone-acetaminophen 5-325 mg tablet 1 tab PO Q6H PRN PRN (Reason: Pain) 3 Days Qty: 10 0RF phenazopyridine [Pyridium] 200 mg tablet 200 mg PO TID Qty: 10 0RF d-mannose 500 mg capsule 2,000 mg PO DAILY Referrals / Follow Up: Mitzy Fung MD [Primary Care Provider] - Disposition Disposition (needs filled in before D/C Order can be placed): Home, Self Care 12/24/23 0901<Electronically signed by Leny Ruano MD>Leny Ruano MD CC: Dr. Mitzy Fung MD ~ Signed [facility] Work Phone: Discharge summary Author Yaron Peralta [facility] Note Date/Time January 23, 2025 10:43 am [facility] Medical Records Department [address] [place] [address] Emergency Department Summary 01/23/25 MR#: [id number] Acct: [id number] Name: LUIS BARAJAS Rep #:[id number] : 2005 19 From: Yaron Peralta MD PCP: Dr. Mitzy Fung MD Status:REG ER Location: ED HPI HPI - GI History of Present Illness Chief Complaint: Abd Pain Detail of Chief Complaint: Lower abdominal pelvic pain. Anxiety. Informant: patient and parent Abdominal Pain/Flank Pain Onset: Days Context: Gradual Onset Timing: Continuous Quality: Cramping Location: - (Lower abdominal pelvic pain bilaterally.) Current Severity: Mild Maximum Severity: Moderate Worsened by: Nothing Relieved by: Nothing Nausea/Vomiting/Emesis GI Symptom: Negative for Nausea or Vomiting Diarrhea/Melena/Hematochezia GI Symptom: Positive for - (History of constipation); Negative for Diarrhea, Melena or Hematochezia Associated Symptoms Associated Symptoms: Negative for Dysuria, Frequency, Hematuria or Urgency LMP: Sometime in November. Narrative Narrative: 19-year-old female G0, P0. History of bipolar, polycystic ovarian syndrome endometriosis. Only prior abdominal surgery for exploratory laparotomy. That time he diagnosed endometriosis. Denies any vaginal bleeding or discharge. Last menstrual period was sometime in November she is typically irregular. Denies any dysuria. Was seen 2 to 3 days ago. Had extensive workup that was negative. Including a CAT scan. She has had pain like this before. She is not actively suicidal. She is very anxious. She just wants to cut out her ovaries to stop the pain. Prior similar symptoms: Yes Recent Illness/Hospitalization: No PFSH PFSH Medical History Wears glasses Bipolar disorder Anxiety Non-smoker PCOS (polycystic ovarian syndrome) Endometriosis determined by laparoscopy ADHD Asthma Home Medications ?Medication ?Instructions ?Recorded ?Last Taken ?Type lorazepam 1 mg tablet (Ativan) 1 mg PO DAILY PRN anxie ty 7 days 01/23/25 Unknown Rx #7 tabs Allergy/AdvReac Type Severity Reaction Status Date / Time tree and shrub pollen Allergy Other Verified 01/23/25 09:19 Surgical History S/P laparoscopy Social History Smoking Status: Current every day smoker tobacco type: cigarettes and e- cigarettes alcohol intake: never substance use type: does not use ROS ROS ED ROS Narrative Lower abdominal pain. Constitutional Constitutional ED: Denies chills or fever(s) ENT ENT ED: Denies ear pain Cardiovascular Cardiovascular: Denies chest pain Respiratory/Chest Respiratory/Chest: Denies cough or dyspnea Gastrointestinal Gastrointestinal: Reports abdominal pain and constipation; Denies diarrhea, melena, nausea or vomiting Genitourinary Genitourinary ED: Denies dysuria, hematuria or urinary frequency Musculoskeletal Musculoskeletal: Denies arthralgias or back pain Integumentary Denies abscess Neurologic Neurologic: Denies headache(s) Psychiatric Psychiatric: Reports anxiety and depression Endocrine Endocrinology: Denies polydipsia Hematologic/Lymphatic Hematologic/Lymphatic: Denies easy bleeding Allergic/Immunologic Allergic/Immunologic ED: Denies mouth swelling, tongue swelling or urticaria EXAM Physical Exam Narrative Exam Narrative: 19-year-old female very emotionally upset. Very anxious. Actively shaking. Mother at bedside. Patient is tearful. Vital signs are stable and afebrile. She does not look septic or toxic. H EENT exam pupils round reactive light. Moist John membranes. She is crying. Neck nontender no lymphadenopathy. Lungs clear to auscultation bilaterally. Heart tachycardic rate of 105 no murmur. Chest wall and ribs are nontender. Abdomen soft, nondistended, no peritoneal signs. No hernia or mass. No distention or obstruction. Revealing no significant tenderness she complains of pain in the lower abdomen pelvic areabut there is really not significant reproducible pain. There is no Chung sign. No specific McBurney's point tenderness. Moving all 4 extremities. Nontender no edema. Normal strength. She ambulates without any difficulty. Back nontender. Neurologically she is awake and alert no focal motor deficits. Emotionally she is very upset. Extremely anxious and nervous. Const Vital Signs: 01/23/25 09:19 Temperature 98.2 F Temperature Source Oral Pulse Rate 106 H Respiratory Rate 20 H Blood Pressure 118/73 Blood Pressure Mean 88 Pulse Ox 100 Oxygen Delivery Method Room Air Positive well nourished and well developed; Negative for obese, cachectic, contractures or unkempt General Appearance ED: well developed and NAD; Negative for unkempt, cachectic, contractures or pallor Nutritional Appearance: Negative for cachectic or obese HEENT Reports moist mucous membranes normocephalic and atraumatic Eyes PERRL and EOMs intact bilaterally Neck no lymphadenopathy, supple and no JVD Resp normal respiratory effort and clear to auscultation bilaterally Cardio regular rhythm, S1 normal heart sound, S2 normal heart sound and no murmurs; Negative for regular rate Rate: tachycardic GI non-tender, non-distended and no masses Auscultation: normoactive bowel sounds Palpation: soft; Negative for tender, guarding, hepatomegaly, splenomegaly, hernia, mass, pulsatile mass or rebound tenderness present Back/Spine no CVA tenderness Extremity full ROM General Extremety ED: Negative for edema or tenderness General Extremity: Negative for edema Neuro CN's II-XII intact bilaterally and moves all extremities Sensorium / Orientation: alert, oriented to person, oriented to place and oriented to time; Negative for orientation impaired, confused, lethargic or stuporous Motor Exam: strength 5/5 throughout Psych mental status grossly normal and thought process normal Appearance: Negative for unkempt Attitude: No agitated Mood & Affect: Negative for depressed, anxious or tearful Skin no wounds General Skin Exam: Negative for jaundice or pallor Lesions: no lesions Rashes: no rashes MDM MDM MDM Narrative Medical decision making narrative: 19-year-old female history of bipolar, polycystic ovarian syndrome, and endometriosis. She has never been . She was seen here 2 to 3 days ago after a fall and extensive workup including a CAT scan all of which was negative. Negative UA and negative test. I think most of this is anxiety. There could also be a component of this of endometriosis. Her exam isbenign. I we will recheck a UA and a test. She will be given Ativanfor anxiety and Toradol for her discomfort. Do not think she needs reimaged. Repeat exam at 10:29 AM patient is doing well. She is not having pain. Her abdomen is completely benign there is no tenderness at all. Mom is at bedside her sister is now at bedside also. Patient looks much better. She is calm and relaxed after the Ativan and Toradol. We do long discussion show follow-up withOB/KINDERGARTEN AIDE for her endometriosis. She will follow-up with the counseling center forher anxiety. She will be given prescription of Ativan 1 mg 5 total for her and the family decide when she needs to use it. History & Record Review Discussion w/independent historian: Patient and Family Additional record(s) reviewed:: Prior inpatient record, Prior outpatient record,Prior ED visit and Prior labs Lab Data Attestation: I reviewed the patient's lab results. Lab results narrative: Serum test negative. UA no nitrites. No white and red cells. Only 1+ bacteria. Serum is negative. Labs: Laboratory Results - last 24 hr 01/23/25 01/23/25 09:45 09:48 Serum , Qual NEGATIVE Urine Color Yellow Urine Clarity Sl. Cloudy Urine pH 6.5 Ur Specific Meadow 1.010 Urine Protein 15 H Urine Glucose (UA) Normal Urine Ketones Negative Urine Occult Blood 10 H Urine Nitrite Negative Urine Bilirubin Negative Urine Urobilinogen Normal Ur Leukocyte Esterase 25 H Urine RBC 0-5 SEEN Urine WBC 0-5 SEEN Ur Squamous Epith Cells 0-5 SEEN Urine Bacteria 1+ Urine Mucus 0 SEEN Discharge Plan Triage Chief Complaint: Abd Pain ED Provider: Yaron Peralta Dx/Rx/DC Orders Clinical Impression: Pelvic pain, History of endometriosis, Anxiety Instructions: ED Anxiety Reaction, ED Endometriosis Prescriptions: New lorazepam [Ativan] 1 mg tablet 1 mg PO DAILY PRN (Reason: anxiety) 7 Days Qty: 7 0RF Primary Care Provider: Mitzy Fung Referrals: Counseling,Center [Group of Physicians] - As soon as possible Mitzy Fung MD [Primary Care Provider] - Dorothy Bryant MD [Med Staff - Active Staff] - 1-2 Weeks Activity Restrictions/Additional Instructions: For your pelvic and endometriosis pain alternate Motrin and Tylenol. Ativan as needed for your anxiety. Do not drink alcohol or drive while taking it. Follow-up with the counseling center for your anxiety. Otherwise to help deal with anxiety. Read about it and learn about it. Exercise. Breathing techniques. Walking. Reading. Counseling. Support groups. Follow-up with a local [facility] for your pelvic pain and endometriosis. Print Language: [place] Disposition Disposition: Home, Self Care What to do if you have Problems For any increased pain, shortness of breath, bleeding, nausea or vomiting, chestpain, or any unexpected problems, contact your Primary Care Provider. Call [facility] ([phone]) or report to the closest Emergency Room. Call 911 if necessary. 01/23/25 1043 <Electronically signed by Yaron Peralta MD> Cosigner Signature (if applicable): CC: Dr. Mitzy Fung MD ~ Signed [facility] Work Phone: Evaluation note* Diagnosis Abdominal pain, unspecified abdominal location- Primary Acute sinusitis, recurrence not specified, unspecified location [facility] Diagnosis Urinary frequency- Primary [facility] noteNo assessment information availableWJ.W. [facility] Work Phone: Evaluation note* Diagnosis Sore throat- Primary Acute pharyngitis Influenza-like illness Influenza with other respiratory manifestations [facility]* Diagnosis Onset Date Resolution Status Ovarian torsion acute [facility] Work Phone: Evaluation note* Diagnosis Hirsutism Irregular menses Irregular menstrual cycle [facility] Diagnosis Urinary frequency- Primary [facility] Diagnosis Urinary frequency- Primary [facility]* Diagnosis Urinary frequency- Primary [facility]* Diagnosis Dysuria- Primary [facility]* Diagnosis Pain in pelvis- Primary Flank pain Abdominal pain, unspecified site [facility]* Diagnosis Burning with urination- Primary Dysuria Otalgia of right ear Otalgia, unspecified [facility]* Diagnosis Ear pain, right- Primary Otalgia, unspecified [facility]* Diagnosis Sore throat- Primary Acute pharyngitis Pharyngitis, unspecified etiology Wheezing Viral URI with cough Acute upper respiratory infections of unspecified site Bronchitis Bronchitis, not specified as acute or chronic [facility]* Diagnosis Weight loss Loss of weight Family history of type 2 diabetes mellitus Family history of diabetes mellitus [facility] Additional Instructions For your pelvic and endometriosis pain alternate Motrin and Tylenol. Ativan as needed for your anxiety. Do not drink alcohol or drive while taking it. Follow-up with the counseling center for your anxiety. Otherwise to help deal with anxiety. Read about it and learn about it. Exercise. Breathing techniques. Walking. Reading. Counseling. Support groups. Follow-up with a local [facility] for your pelvic pain and endometriosis.[facility] Work Phone: Reason for referral (narrative)No reason for referral information availableWJ.W. [facility] Work Phone: Reason for Referral Specialty Diagnoses / Procedures Referred By Yamile seth Referred To Contact Diagnoses Abdominal pain, unspecified abdominal location Procedures CONSULT TO [facility] OFFICE/OUTPATIENT [facility] 60-74 MINUTES Gus Munroe APRN.SOIL EXPERT [address] [place] [address] Referral ID Status Reason Start Date Expiration Date Visits Requested Visits Authorized [id number] Authorized PCP Requested Referral Auto-Generate d Referral 01/17/2022 01/17/2023 1 1 Specialty Diagnoses / Procedures Referred By Yamile seth Referred To Contact Urology Diagnoses Urinary frequency Procedures CONSULT TO UROLOGY OFFICE/OUTPATIENT [facility] 60-74 MINUTES Ivonne Dawson, CHIEF ACCOUNTANT.SOIL EXPERT [address] [place] [address] Referral ID Status Reason Start Date Expiration Date Visits Requested Visits Authorized [id number] Authorized PCP Requested Referral 07/28/2023 07/27/2024 1 1 Chief Complaint and Reason for Visit Chief Complaint SORE THROAT Chief Complaint SORE THROAT SINUSITIS ABD Chief Complaint SORE THROAT SINUSITIS ABD OVARIAN TORSION Reason for Visit Ovarian torsion Chief Complaint SORE THROAT SINUSITIS ABD OVARIAN TORSION Chief Complaint SORE THROAT SINUSITIS ABD OVARIAN TORSION ABD PAIN Chief Complaint SINUSITIS ABD OVARIAN TORSION ABD PAIN DROPOFF- TONSILITIS GENERA Chief Complaint ABD PAIN DROPOFF- TONSILITIS GENERA DM SCREENING Chief Complaint GENERA DM SCREENING URINE SAMPLE Chief Complaint ABD tooth broken Chief Complaint tooth broken SYMPTOMS Chief Complaint tooth broken SYMPTOMS Cysto,Pelvic Exam Chief Complaint Admit Date abd pain January 20, 2025 3:20p m Chief Complaint Admit Date abd pain January 20, 2025 3:20p m abd pain January 23, 2025 9:18a m Advance Directives No Advanced Directives Records Found Advance Directive Response Recorded Date/ Time Living Will No May 09, 2016 5:08pm Power of Shingle Catcher No April 5:08pm Advance Directive Response Recorded Date/ Time Living Will No May 09, 2016 6:08pm Power of Shingle Catcher No April 6:08pm Advance Directive Response Recorded Date/ Time Living Will No September 25 4:30am Power of Shingle Catcher No September 25, 2023 4:30am Advance Directive Response Recorded Date/ Time Living Will No November 14, 2023 2:18pm Power of Shingle Catcher No November 13 2:18pm Advance Directive Response Recorded Date/ Time Living Will No December 21, 2023 1:59pm Power of Shingle Catcher No December 20 1:59pm Date Activated Date Inactivated Comments 04/24/2024 9:55 AM 04/26/2024 3:43 PM Question Answer Comments Full Code Order Discussed With: Patient Advance Directive Response Recorded Date/ Time Do you have a Healthcare Power of Shingle Catcher? No January 20, 2025 3:51pm Advance Directive Response Recorded Date/ Time Do you have a Healthcare Power of Shingle Catcher? No January 20, 2025 3:51pm Do you have a Healthcare Power of Shingle Catcher? No January 23, 2025 9:37am Health Concerns Infection Onset Date Last Indicated Resolved Time COVID-19 Rule-Out 08/25/2022 08/25/2022 08/26/2022 4:18 AM EST Summary Purpose Family History No Family History Records FoundNo Family History Records FoundNo Family History Records FoundNo Family History Records FoundNo Family History Records Found Additional Source Comments Source Comments (unrecognize d section and content) In the event this informatio n is protected by the Federal Confidentiality of Alcohol and Drug Abuse Patient Records regulations: The Federal rules restrict any use of the information to criminally investigate or prosecute any alcohol or drug abuse patient.[facility] the event this information is protected by the Federal Confidentiality of Alcohol and Drug Abuse Patient Records regulations: The Federal rules restrict any use of the information to criminally investigate or prosecute any alcohol or drug abuse patient.[facility] the event this information is protected by the Federal Confidentiality of Alcohol and Drug Abuse Patient Records regulations: The Federal rules restrict any use of the information to criminally investigate or prosecute any alcohol or drug abuse patient.[facility] the event this information is protected by the Federal Confidentiality of Alcohol and Drug Abuse Patient Records regulations: The Federal rules restrict any use of the information to criminally investigate or prosecute any alcohol or drug abuse patient.[facility] the event this information is protected by the Federal Confidentiality of Alcohol and Drug Abuse Patient Records regulations: The Federal rules restrict any use of the information to criminally investigate or prosecute any alcohol or drug abuse patient.[facility] the event this information is protected by the Federal Confidentiality of Alcohol and Drug Abuse Patient Records regulations: The Federal rules restrict any use of the information to criminally investigate or prosecute any alcohol or drug abuse patient.[facility] the event this information is protected by the Federal Confidentiality of Alcohol and Drug Abuse Patient Records regulations: The Federal rules restrict any use of the information to criminally investigate or prosecute any alcohol or drug abuse patient.[facility] the event this information is protected by the Federal Confidentiality of Alcohol and Drug Abuse Patient Records regulations: The Federal rules restrict any use of the information to criminally investigate or prosecute any alcohol or drug abuse patient.[facility] the event this information is protected by the Federal Confidentiality of Alcohol and Drug Abuse Patient Records regulations: The Federal rules restrict any use of the information to criminally investigate or prosecute any alcohol or drug abuse patient.[facility] the event this information is protected by the Federal Confidentiality of Alcohol and Drug Abuse Patient Records regulations: The Federal rules restrict any use of the information to criminally investigate or prosecute any alcohol or drug abuse patient.[facility] the event this information is protected by the Federal Confidentiality of Alcohol and Drug Abuse Patient Records regulations: The Federal rules restrict any use of the information to criminally investigate or prosecute any alcohol or drug abuse patient.[facility]burg[facility] the event this information is protected by the Federal Confidentiality of Alcohol and Drug Abuse Patient Records regulations: The Federal rules restrict any use of the information to criminally investigate or prosecute any alcohol or drug abuse patient.[facility]burg[facility] the event this information is protected by the Federal Confidentiality of Alcohol and Drug Abuse Patient Records regulations: The Federal rules restrict any use of the information to criminally investigate or prosecute any alcohol or drug abuse patient.[facility] the event this information is protected by the Federal Confidentiality of Alcohol and Drug Abuse Patient Records regulations: The Federal rules restrict any use of the information to criminally investigate or prosecute any alcohol or drug abuse patient.[facility] Reason for Visit (unrecogniz ed section and content) Reason Comments Ear Pain Pt presented with pa ashlyn reported bilateral ear, jaw pain rated 6 x2 wks Nasal Congestion Reason Comments Urinary Problem Pt presented with donta goldberg ([place]) urinary frequency, urgency x1 day. Reason Comments Results, Lab Reason Comments Sore Throat AGUILERA, BEATRIZ ear pain, lo w fever, congestion x1 day Reason Comments Results Reason Comments Urinary Frequency burning with urinati on x 1 week Reason Comments UTI Frequency and burnin g x3 days, possible yeast infection Reason Comments Results Prince + Reason Comments Urinary Problem Possible uti/kidney stones x 2 days Reason Comments UTI Recent cystoscopy 5/ 3, burning, abd pressure, dysuria, hematuria x4 days Ear Problem R ear feels full of water, recent swimming x3 days Reason Comments Ear Pain right worse but left hurts x 1 month Reason Comments Ear Pain Bilateral ear pain x 1 day- chest congestion, AGUILERA ST, chest hurts and wheezy x 1 week Care Teams (unrecognized sec tion and content) Director Validation Relationship Specialty Start Date End Date Cesar Rosenthal [facility] [address] [place] [address] PCP - General 06/03/06 Director Validation Relationship Specialty Start Date End Date Mitzy Fung [facility] [address] PCP - General Pediatrics 06/24/22 Director Validation Relationship Specialty Start Date End Date Mitzy Fung E [place] [place], [place] [address] PCP - General Pediatrics 06/24/22 Team Status: Active Member Role Status Dates Dr. Mitzy Fung MD Family Provider Active Dr. Mitzy Fung MD Primary Care Provider Active Team Status: Inactive Member Role Status Dates Dr. Mitzy Fung MD Primary Care Provider Active Dr. Vishal De La Torre MD Attending Provider, Emergency Provider Active Team Status: Active Member Role Status Dates Dr. Mitzy Fung MD Primary Care Provider Active Dr. J Luis Wolfe MD Attending Provider, [facility] Active Team Status: Inactive Member Role Status Dates Dr. Mitzy Fung MD Primary Care Provider Active Dr. Yahir Harris DO Emergency Provider Active Team Status: Inactive Member Role Status Dates Dr. Mitzy Fung MD Primary Care Provider Active Dr. J Luis Wolfe MD Attending Provider, Refe rring Provider Active Team Status: Active Member Role Status Dates Dr. Mitzy Fung MD Primary Care Provider Active Dr. Teodoro Garcia DO Emergency Provider Active Dr. Mara Clements MD Attending Provider Active Team Status: Inactive Member Role Status Dates Dr. Mitzy Fung MD Primary Care Provider Active Dr. Teodoro Garcia DO Emergency Provider Active Dr. Maar Clements MD Attending Provider Active Director Validation Relationship Specialty Start Date End Date Mitzy Fung MD [address] [place] [address] PCP - General 07/19/19 Team Status: Inactive Member Role Status Dates Dr. Mitzy Fung MD Primary Care Provider Active Dr. Yahir Harris DO Attending Provider, Emergency Provider Active Team Status: Inactive Member Role Status Dates Dr. Mitzy Fung MD Primary Care Provider, Referrin g Provider Active Dr. Vishal De La Torre MD Emergency Provider Active Team Status: Inactive Member Role Status Dates Dr. Mitzy Fung MD Primary Care Provider, Referrin g Provider Active Dr. Vishal De La Torre MD Attending Provider, Emergency Provider Active Team Status: Inactive Member Role Status Dates Dr. Mitzy Fung MD Primary Care Provider Active Dr. Flor Seymour MD Emergency Provider Active Team Status: Inactive Member Role Status Dates Dr. Mitzy Fung MD Primary Care Provider Active Dr. Flor Seymour MD Attending Provider, Emergency Provider Active Team Status: Inactive Member Role Status Dates Dr. Mitzy Fung MD Primary Care Provider Active Dr. Mara Clements MD Attending Provider, Refer ring Provider Active Director Validation Relationship Specialty Start Date End Date Mitzy Fung MD [address] [place] [address] PCP - General Pediatrics 06/24/22 Director Validation Relationship Specialty Start Date End Date Mitzy Fung MD [address] [place] [address] PCP - General Pediatrics 06/24/22 Director Validation Relationship Specialty Start Date End Date Mitzy Fung MD [address] [place] [address] PCP - General Pediatrics 06/24/22 Team Status: Inactive Member Role Status Dates Dr. Mitzy Fung MD Primary Care Provider Active Dr. Levar Ackerman DO Emergency Provider Active Director Validation Relationship Specialty Start Date End Date Mitzy Fung MD [address] [place] [address] PCP - General Pediatrics 06/24/22 Director Validation Relationship Specialty Start Date End Date Mitzy Fung MD [address] [facility] [place], [place] [address] PCP - General Pediatrics 06/24/22 Team Status: Inactive Member Role Status Dates Dr. Mitzy Fung MD Primary Care Provider Active Dr. Levar Ackerman DO Attending Provider, Emergency P rovider Active Team Status: Inactive Member Role Status Dates Dr. Mitzy Fung MD Primary Care Provider Active Dr. Alexis Farfan MD Emergency Provider Active Team Status: Inactive Member Role Status Dates Dr. Mitzy Fung MD Primary Care Provider Active Dr. Alexis Farfan MD Attending Provider, Emergency Provi sandy Active Team Status: Inactive Member Role Status Dates Dr. Mitzy Fung MD Primary Care Provider Active Dr. Leny Ruano MD Attending Provider, Referring P rovider Active Director Validation Relationship Specialty Start Date End Date Mitzy Fung MD [address] [place], [place] [address] PCP - General Pediatrics 06/24/22 Director Validation Relationship Specialty Start Date End Date Mitzy Fung MD [address] [place], [place] [id number] PCP - General Pediatrics 06/24/22 Director Validation Relationship Specialty Start Date End Date Mitzy Fung MD [address] [place], [place] [id number] PCP - General 07/19/19 Team Status: Active Member Role Status Dates Dr. Mitzy Fung MD Primary Care Provider Active Team Status: Inactive Member Role Status Dates Dr. Mitzy Fung MD Primary Care Provider Active Start: January 20, 2025 End: January 20, 2025 Dr. Javier Isabel DO Referring Provider Active Start: January 20, 2025 End: January 20, 2025 Dr. Javier Iasbel DO Emergency Provider Active Start: January 20, 2025 End: January 20, 2025 Team Status: Inactive Member Role Status Dates Dr. Mitzy Fung MD Primary Care Provider Active Start: January 23, 2025 End: January 23, 2025 Dr. Yaron Peralta MD Emergency Provider Active S tart: January 23, 2025 End: January 23, 2025 Goals (unrecognized section and content) Goals may be documented in a n alternate sectionGoals may be documented in an alternate sectionGoals may be documented in an alternate sectionGoals may be documented in an alternate sectionGoals may be documented in an alternate sectionGoals may be documented in an alternate sectionGoals may be documented in an alternate sectionGoals may be documented in an alternate sectionGoals may be documented in an alternate sectionGoals may be documented in an alternate sectionGoals may be documented in an alternate sectionGoals may be documented in an alternate sectionGoals may be documented in an alternate section INFORMATION SOURCE (unrecogn ized section and content) DATE CREATED AUTHOR 04/26/2024 [facility] DATE CREATED AUTHOR AUTHOR'S ORGANIZ ATION 05/05/2024 [facility] DATE CREATED AUTHOR AUTHOR'S ORGANIZ ATION 09/03/2024 [facility] DATE CREATED AUTHOR AUTHOR'S ORGANIZ ATION 09/14/2024 [facility] DATE CREATED AUTHOR AUTHOR'S ORGANIZ ATION 01/31/2025 [facility] FOR RECORDS PERTAINING TO PATIENTS WHO ARE [...] BE BASED ON THE PRIMARY CLINICAL RECORDS. [facility]. provides no warranty or guarantee of the accuracy or completeness of information in this document.
--- NOTE | 2025-02-05 09:50 | CT_ITS ---
PROCEDURE: ABDOMEN/PELVIS W IV CONT ONLY 02/05/2025 REASON FOR EXAM: PAIN, LEFT LOWER QUADRANT, CONSTIPATION TECHNIQUE: ABDOMEN/PELVIS W IV CONT ONLY. Coronal and Sagittal reconstruction series were provided. ORAL CONTRAST TYPE: None. CONTRAST: Isovue 370 VOLUME: 100 mL One or more dose reduction techniques were used (e.g., Automated exposure control, adjustment of the mA and/or kV according to patient size, use of iterative reconstruction technique. RADIATION DOSE SUMMARY: CTDlvol: 15 mGy DLP: 300 mGycm COMPARISON: CT chest, abdomen and pelvis 01/20/2025. FINDINGS: Lung bases: Unremarkable. Liver: The liver is normal in size without suspicious hepatic mass. The major portal veins are patent. No biliary ductal dilation. Gallbladder: No radiopaque stones within the gallbladder. Spleen: Unremarkable. Pancreas: Unremarkable. Adrenals: No adrenal mass. Kidneys: No hydronephrosis or nephrolithiasis. Bladder: Minimally distended with diffuse bladder wall thickening. Reproductive Organs: Normal uterine size and contour. Ovaries are unremarkable. Physiologic left corpus luteum. Bowel: The bowel loops are nondilated. No ascites or pneumoperitoneum. No inflammatory mass in the expected region of the appendix. Lymph nodes: No suspicious lymphadenopathy. Vasculature: The abdominal aorta and IVC are normal. Bones: No aggressive osseous lesions. CT/Abdomen/Pelvis W IV Cont ONLY IMPRESSION: 1. No acute abdominopelvic finding. 2. Mild diffuse bladder wall thickening, which may represent developing urinary tract infection. Correlation with patient's symptoms and urinalysis recommended. Reading Location: [id number]
--- NOTE | 2025-02-05 09:52 | EDS_ITS ---
HPI HPI - GI History of Present Illness Chief Complaint: Constipation Narrative Narrative: 19-year-old female presents with her mother because of abdominal pain and constipation that she has had for the last 4 days. She usually has a bowel movement every day. She has a feeling like she has to have a bowel movement, but is unable to. She is nauseated. She has had previous surgeries such as exploratory surgery for endometriosis. They state that she was having problems with frequent UTIs and sees Dr. Ruano. She states that she had cystoscopy and everything looked normal. She has tried fiber, fleets enema, and states now she is having mucousy liquid when she has tried to have a bowel movement recently. Yesterday she had right lower quadrant abdominal pain, but it feels like it is moved to the left lower quadrant. She presents because of the inability to have a bowel movement as well as lower quadrant abdominal pain. No fevers or chills. [facility] Medical History Wears glasses Bipolar disorder Anxiety Non-smoker PCOS (polycystic ovarian syndrome) Endometriosis determined by laparoscopy ADHD Asthma Home Medications ?Medication ?Instructions ?Recorded ?Last Taken ?Type d-mannose 1 cap PO DAILY 02/05/25 Unkn own History Allergy/AdvReac Type Severity Reaction Status Date / Time tree and shrub pollen Allergy Other Verified 02/05/25 09:29 Surgical History S/P laparoscopy Social History Smoking Status: Current every day smoker tobacco type: cigarettes and e- cigarettes alcohol intake: never substance use type: does not use ROS ROS ED ROS Narrative Review of systems positive for constipation, bilateral lower quadrant pain, right yesterday, now left-sided. Positive nausea. No fevers or chills. No exacerbating or alleviating factors. EXAM Physical Exam Narrative Exam Narrative: Afebrile. Vital signs noted. Nontoxic-appearing. Cardiovascular examination reveals a regular rate and rhythm. Lungs are clear to auscultation bilaterally. Abdomen is soft, with minimal diffuse tenderness to palpation in the bilateral lower quadrants. No pain over McBurney's point, no rebound or guarding. No peritoneal signs. Positive bowel sounds. Neurological examination nonfocal, nonlateralizing. Const Vital Signs: 02/05/25 09:26 02/05/25 11:31 Temperature 98.3 F Temperature Source Oral Pulse Rate 98 78 Respiratory Rate 14 16 Blood Pressure 126/71 H 122/74 H Blood Pressure Mean 89 90 Pulse Ox 100 97 Oxygen Delivery Method Room Air Room Air MDM MDM MDM Narrative Medical decision making narrative: The differential diagnosis includes but not limited to constipation versus fecal impaction versus partial bowel obstruction versus diverticulitis versus nonspecific abdominal pain. I reviewed her prior records and labs. I do feel that repeat CT imaging is indicated as her obstipation/constipation has developed over the last 4 days. CBC, CMP, UA, serum will be obtained as well. Chaperoned rectal examination showed no evidence of a hemorrhoid or rectal prolapse. There was no stool in the rectal vault on digital rectal examination. I reviewed her laboratory work and she has normal white count of 7.1 with hemoglobin 13.9, hematocrit 41.4, platelet count normal at 341. CMP remarkable for carbon dioxide of 20.8 which he think is nonspecific, BUN of 11 creatinine 0.91. Serum is negative. Lipase normal at 30. Urinalysis is negative for infection. CT of the abdomen pelvis radiology report reviewed and there is no acute process, no obstruction. There is a thickened bladder wall. However given the negative urinalysis, I do not feel that antibiotics are indicated. Repeat examination shows the patient sitting crosslegged on the cot. At this point in time, I feel she can be discharged to follow-up. She will continue her simethicone for her abdominal pain and cramping which may be related to gas, but she will also start MiraLAX [id number]. Follow-up with primary care. Return instructions reviewed. Disposition is discharged home in stable condition. History & Record Review Discussion w/independent historian: Patient and Family (Mother) Additional record(s) reviewed:: Prior ED visit and Prior labs Lab Data Attestation: I reviewed the patient's lab results. Labs: Laboratory Results - last 24 hr 02/05/25 02/05/25 10:02 11:17 WBC 7.1 RBC 4.86 Hgb 13.9 Hct 41.4 MCV 85.2 MCH 28.6 MCHC 33.6 RDW Std Deviation 36.2 RDW Coeff of Ray 11.8 Plt Count 341 MPV 9.8 Immature Gran % (Auto) 0.100 Neut % (Auto) 48.7 Lymph % (Auto) 40.5 [place] % (Auto) 6.3 Eos % (Auto) 3.4 Baso % (Auto) 1.0 Absolute Neuts (auto) 3.5 Absolute Lymphs (auto) 2.89 Nucleated RBC % 0 Sodium 142 Potassium 3.8 Chloride 107 Carbon Dioxide 20.8 L Anion Gap 14 BUN 11 Creatinine 0.91 Estim Creat Clear Calc 85.87 Est GFR (MDRD) Non-Af 93 BUN/Creatinine Ratio 11.9 Glucose 92 Calcium 9.9 Total Bilirubin 0.66 AST 23 ALT 15 Alkaline Phosphatase 59 Total Protein 7.7 Albumin 4.8 Globulin 2.9 Albumin/Globulin Ratio 1.7 Lipase 30 Serum , Qual NEGATIVE Urine Color Yellow Urine Clarity Clear Urine pH 7.0 Ur Specific [place] 1.005 Urine Protein 30 H Urine Glucose (UA) Normal Urine Ketones Negative Urine Occult Blood Negative Urine Nitrite Negative Urine Bilirubin Negative Urine Urobilinogen Normal Ur Leukocyte Esterase Negative Urine RBC 0 SEEN Urine WBC 0 SEEN Ur Squamous Epith Cells 0-5 SEEN Urine Bacteria 0 SEEN Urine Mucus 0 SEEN Radiography Diagnostic Testing: Clinical Impression(s) from Imaging Studies Abdomen/Pelvis CT 02/05/25 09:50 IMPRESSION: 1. No acute abdominopelvic finding. 2. Mild diffuse bladder wall thickening, which may represent developing urinary tract infection. Correlation with patient's symptoms and urinalysis recommended. Reading Location: [facility] Discharge Plan Triage Chief Complaint: Constipation ED Provider: Arturo Hernandez Dx/Rx/DC Orders Clinical Impression: Abdominal pain, Constipation, Bladder wall thickening Instructions: ED Abdominal Pain Unkn Cause Fem, ED Constipation (Adult) Prescriptions: No Action d-mannose 1 cap PO DAILY Primary Care Provider: Mitzy Peterson Referrals: Mitzy Peterson MD [Primary Care Provider] - 3-5 Days if not improving Activity Restrictions/Additional Instructions: Try taking MiraLAX to help with your constipation. Follow-up with Dr. Ruano regarding the thickened bladder wall on your CT scan. Return with new or worsening symptoms. Otherwise follow-up with your primary care provider in the next 3 to 5 days if not improving. Print Language: Com[place]an Disposition Disposition: Home, Self Care
[2025-02-05] MEDS: 0.9% Normal Saline (1000mL) 1,000 ML 999 ML IV (10:04)
[2025-02-05 10:11] LABS: Absolute Lymphocyte Count 2.89 X10^3/uL (0.83-4.51); Absolute Neutrophil Count 3.5 X10^3/uL (2.0-7.7); Basophil# 0.07 X10^3/uL; Eosinophil# 0.24 X10^3/uL; Eosinophils% 3.4 % (0-5); Hematocrit 41.4 % (37-47); Hemoglobin 13.9 g/dL (12.0-15.0); Lymphocyte # 2.89 X10^3/ul (0.83-4.51); Lymphocyte % 40.5 % (19-41); Mean Corp Hgb Conc 33.6 g/dL (32-36); Mean Corpuscular Hgb 28.6 pg (27.0-32.0); Mean Corpuscular Volume 85.2 fL (81-99); Mean Platelet Vol. 9.8 fl (6.2-12.0); Monocyte# 0.45 X10^3/uL; Monocyte% 6.3 % (0-10); NRBC Flagged by Analyzer 0 % (0-5); Neutrophil # 3.47 X10^3/uL (2.7-7.7); Neutrophil % 48.7 % (47-70); Platelet Count 341 K/mm3 (150-450); RBC Distribution Width CV 11.8 % (11.6-14.6); RBC Distribution Width SD 36.2 fl (35.1-43.9); Red Blood Count 4.86 M/mm3 (4.2-5.4); White Blood Count 7.1 K/mm3 (4.4-11.0)
[2025-02-05 10:17] LABS: Internal QC Validated? YES +Cl - CLEAR BKGD; Pregnancy, Serum, hCG Quali. NEGATIVE Negative
[2025-02-05 11:07] LABS: ALB/GLOB Ratio 1.7 RATIO (0.9-2.4); AST(SGOT) 23 U/L (<=31); Alanine Aminotransfer ALT/SGPT 15 U/L (<=34); Albumin, Serum 4.8 g/dL (3.5-5.0); Alkaline Phosphatase 59 U/L (35-104); Anion Gap 14 (5-15); BUN 11 mg/dL (4-19); BUN/Creat Ratio 11.9 RATIO (10-20); Calcium,Total 9.9 mg/dL (7.6-11.0); Carbon Dioxide 20.8 mmol/L (21.0-32.0); Chloride 107 mmol/L (98-108); Creatinine, Serum 0.91 mg/dL (0.70-1.20); EST Glomerular Filtration Rate 93 (>60); Estimated Creatinine Clearance 85.87 ml/min (50-250); Globulin 2.9 g/dL (2.2-4.2); Glucose 92 mg/dL (70-99); Lipase 30 U/L (13-75); Potassium 3.8 mmol/L (3.3-5.1); Protein, Total 7.7 g/dL (5.9-8.4); Sodium Level 142 mmol/L (133-145); Total Bilirubin 0.66 mg/dL (0.00-1.30)
[2025-02-05 11:22] LABS: Bacteria 0 SEEN /hpf (None Seen); Mucous, Urine 0 SEEN /hpf (<or=2+); Red Blood Cells-Urine 0 SEEN /hpf (0-5); White Blood Cells 0 SEEN /hpf (0-5)
[2025-02-05 11:23] LABS: Color, Urine Yellow (Yellow); Glucose, Dipstick Normal (Normal); Ketone-Dipstick Negative (Negative); Leukocyte Esterase-Dipstick Negative /ul (Negative); Nitrite-Dipstick Negative (Negative); Occult Blood-Urine Negative /ul (Negative); Protein-Dipstick 30 mg/dl (Negative); Specific Gravity, Urine 1.005 (1.002-1.030); Urine Bilirubin Dipstick Negative (Negative); Urine Clarity Clear (Clear); Urine Urobilinogen Normal (Normal)
[2025-02-05 11:29] LABS: Squamous Epithelial Cells - UA 0-5 SEEN /hpf (5-10)
[2025-02-05 11:31] VITALS: BP 122/74; PULSE 78; RESP 16; O2SAT 97
[2025-02-05 12:06] VITALS: BP 122/74; PULSE 78; RESP 16; TEMP 36.8; O2SAT 97
== END 2025-02-05 12:07 | disposition home or self-care (01) ==
PROVIDERS: Emergency Provider Emergency Medicine; PCP Pediatrics; Visit Provider Emergency Medicine
DX: R10.32 Left lower quadrant pain (principal); F31.9 Bipolar disorder, unspecified; N32.89 Other specified disorders of bladder; R10.31 Right lower quadrant pain; K59.00 Constipation, unspecified; J45.909 Unspecified asthma, uncomplicated; F17.210 Nicotine dependence, cigarettes, uncomplicated; F17.290 Nicotine dependence, other tobacco product, uncomplicated
CPT/HCPCS: 74177; 80053; 81001; 83690; 84703; 85025; 96360; 99282; Q9967

== ENCOUNTER 2025-02-21 00:56 | Emergency (ER) | payer MEDICAID, SELFPAY ==
[2025-02-21 00:58] VITALS: BP 133/89; PULSE 96; RESP 20; TEMP 36.9; O2SAT 99; BMI 21.7
[2025-02-21 01:57] LABS: Hematocrit 37.5 % (37-47); Hemoglobin 12.7 g/dL (12.0-15.0); Immature Granulocytes Count 0.020 X10^3/uL (0.0-0.0); Mean Corp Hgb Conc 33.9 g/dL (32-36); Mean Corpuscular Volume 84.5 fL (81-99); Mean Platelet Vol. 10.3 fl (6.2-12.0); NRBC Flagged by Analyzer 0 % (0-5); Platelet Count 303 K/mm3 (150-450); RBC Distribution Width CV 12.2 % (11.6-14.6); RBC Distribution Width SD 37.1 fl (35.1-43.9); Red Blood Count 4.44 M/mm3 (4.2-5.4); White Blood Count 9.1 K/mm3 (4.4-11.0)
[2025-02-21 02:00] VITALS: BP 133/46; PULSE 84; RESP 18; O2SAT 100
[2025-02-21] MEDS: 0.9% Normal Saline (1000mL) 1,000 ML 999 ML IV (02:09)
[2025-02-21 02:14] LABS: Internal QC Validated? YES +Cl - CLEAR BKGD; Pregnancy, Serum, hCG Quali. NEGATIVE Negative; Record Kit Lot#, Serum Preg. 0000947241
--- OUTSIDE RECORDS SUMMARY | 2025-02-21 02:14 | XMS RPT_ITS | CCD ---
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 quadrant abdominal pain, but it feels like it is moved to the left lower quadrant. She presents because of the inability to have a bowel movement as well as lower quadrant abdominal pain. No fevers or chills. PFSH PFS Medical History Wears glasses Bipolar disorder Anxiety Non-smoker PCOS (polycystic ovarian syndrome) Endometriosis determined by laparoscopy ADHD Asthma Home Medications ???Medication ???Instructions ???Recorded ???Last Taken ???Type d-mannose 1 cap PO DAILY 02/05/25 Unknown Hi story Allergy/AdvReac Type Severity Reaction Status Date / Time tree and shrub pollen Allergy Other Verified 02/05/25 09:29 Surgical History S/P laparoscopy Social History Smoking Status: Current every day smoker tobacco type: cigarettes and e-cigarettes alcohol intake: never substance use type: does not use ROS ROS ED ROS Narrative Review of systems positive for constipation, bilateral lower quadrant pain, right yesterday, now left-sided. Positive nausea. No fevers or chills. No exacerbating or alleviating factors. EXAM Physical Exam Narrative Exam Narrative: Afebrile. Vital signs noted. Nontoxic-appearing. Cardiovascular examination reveals a regular rate and rhythm. Lungs are clear to auscultation bilaterally. Abdomen is soft, with minimal diffuse tenderness to palpation in the bilateral lower quadrants. No pain over McBurney's point, no rebound or guarding. No peritoneal signs. Positive bowel sounds. Neurological examination nonfocal, nonlateralizing. Const Vital Signs: 02/05/25 09:26 02/05/25 11:31 Temperature 98.3 F Temperature Source Oral Pulse Rate 98 78 Respiratory Rate 14 16 Blood Pressure 126/71 H 122/74 H Blood Pressure Mean 89 90 Pulse Ox 100 97 Oxygen Delivery Method Room Air Room Air MDM MDM MDM Narrative Medical decision making narrative: The differential diagnosis includes but not limited to constipation versus fecal impaction versus partial bowel obstruction versus diverticulitis versus nonspecific abdominal pain. I reviewed her prior records and labs. I do feel that repeat CT imaging is indicated as her obstipation/constip ation has developed over the last 4 days. CBC, CMP, UA, serum will be obtained as well. Chaperoned rectal examination showed no evidence of a hemorrhoid or rectal prolapse. There was no stool in the rectal vault on digital rectal examination. I reviewed her laboratory work and she has normal white count of 7.1 with hemoglobin 13.9, hematocrit 41.4, platelet count normal at 341. CMP remarkable for carbon dioxide of 20.8 which he think is nonspecific, BUN of 11 creatinine 0.91. Serum is negative. Lipase normal at 30. Urinalysis is negative for infection. CT of the abdomen pelvis radiology report reviewed and there is no acute process, no obstruction. There is a thickened bladder wall. However given the negative urinalysis, I do not feel that antibiotics are indicated. Repeat examination shows the patient sitting crosslegged on the cot. At this point in time, I feel she can be discharged to follow-up. She will continue her simethicone for her abdominal pain and cramping which may be related to gas, but she will also start MiraLAX bksa-ggg-iknefoi. Follow-up with primary care. Return instructions reviewed. Disposition is discharged home in stable condition. History Record Review Discussion w/independent historian: Patient and Family (Mother) Additional record(s) reviewed:: Prior ED visit and Prior labs Lab Data Attestation: I reviewed the patient's lab results. Labs: Laboratory Resul (more content not included)... Normal [facility] Eosinophil percentageOrdered By: Arturo Hernandez on 02-05-2025 Eosinophils/100 WBC (Bld) 3.4 % 0-5 [facility] Erythrocyte distribution wid th ratioOrdered By: Arturo Hernandez on 02-05-2025 Erythrocyte distribution width (RBC) [Ratio] 11.8 % 11.6-14.6 [facility] Erythrocyte distribution wid th standard deviationOrdered By: Arturo Hernandez on 02-05-2025 Erythrocyte distribution width (RBC) [Ratio] 36.2 fl 35.1-43.9 [facility] Glomerular filtration rate ( GFR) estimation/1.73 sq m using serum, plasma, or whole bOrdered By: Arturo Hernandez on 02-05-2025 GFR/1.73 sq M.predicted among non-blacks MDRD (S/P/Bld) [Vol rate/Area] 93 mL/min/{1.73_m2} >60 [facility] Comment on above: mL/min/1.73m2 CKD-EP I Creatinine Equation (2020) Hematocrit Auto (Bld) [Volum e fraction]Ordered By: Arturo Hernandez on 02-05-2025 Hematocrit (Bld) [Volume fraction] 41.4 % 37-47 [facility] Hemoglobin measurementOrdere d By: Arturo Hernandez on 02-05-2025 Hemoglobin (Bld) [Mass/Vol] 13.9 g/dL 12.0-15.0 [facility] Immature granulocytes/100 WB C Auto (Bld)Ordered By: Arturo Hernandez on 02-05-2025 Immature granulocytes/100 WBC (Bld) 0.100 % 0.0-0.9 [facility] Comment on above: IG% - Immature Granu locytes (promyelocytes, myelocytes and metamyelocytes) > 1% indicates that a LEFT SHIFT is Present. Ketones Test strip Ql (U)Ord ered By: Arturo Hernandez on 02-05-2025 Ketones Ql (U) Negative Negative [facility] - Chemistry and C hemistry - challengeOrdered By: Arturo Hernandez on 02-05-2025 AST [Catalytic activity/Vol] 23 U/L <32 [facility] Lipaseon 02-05-2025 Lipase [Catalytic activity/Vol] 30 U/L Normal 13-75 [facility] Comment on above: Result Comment: Antonio castro note: LIPASE revised reference range effective 22. New Lipase methodology. Expected to produce lower values than the previous assay method. NEW Reference Range: 13 - 75 U/L Performed By: #### L 100.0100, L501.2450, L500.4050, L700.6800 ####[facility] [address], [address] Lipase measurementOrdered By : Arturo Hernandez on 02-05-2025 Lipase [Catalytic activity/Vol] 30 U/L 13-75 [facility] Comment on above: Please note:LIPASE r evised reference range effective 22. New Lipase methodology. Expected to produce lower values than the previous assay method. NEW Reference Range: 13 - 75 U/L MCV (mean corpuscular volume ) determinationOrdered By: Arturo Hernandez on 02-05-2025 MCV (RBC) [Entitic vol] 85.2 fL 81-99 [facility] Mean corpuscular hemoglobin (MCH) determinationOrdered By: Arturo Hernandez on 02-05-2025 MCH (RBC) [Entitic mass] 28.6 pg 27.0-32.0 [facility] Mean corpuscular hemoglobin concentration (MCHC) determinationOrdered By: Arturo Hernandez on 02-05-2025 MCHC (RBC) [Mass/Vol] 33.6 g/dL 32-36 [facility] Mean platelet volume determi nationOrdered By: Arturo Hernandez on 02-05-2025 Platelet mean volume (Bld) [Entitic vol] 9.8 fL 6.2-12.0 [facility] Microscopic analysis of urin e for red blood cells (RBC)Ordered By: Arturo Hernandez on 02-05-2025 Microscopic analysis of urine for red blood cells (RBC) 0 SEEN /hpf 0-5 [facility] Monocyte percentageOrdered B y: Arturo Hernandez on 02-05-2025 Monocytes/100 WBC (Bld) 6.3 % 0-10 [facility] Mucus LM Ql (Urine sed)Order ed By: Arturo Hernandez on 02-05-2025 Mucus Ql (Urine sed) 0 SEEN /hpf [facility] Neutrophil percentageOrdered By: Arturo Hernandez on 02-05-2025 Neutrophils/100 WBC (Bld) 48.7 % 47-70 [facility] Nitrite Test strip Ql (U)Ord ered By: Arturo Hernandez on 02-05-2025 Nitrite Ql (U) Negative Negative [facility] Nucleated red blood cell per centageOrdered By: Arturo Hernandez on 02-05-2025 Nucleated RBC/100 WBC (Bld) [Ratio] 0 % 0-5 [facility] Platelet countOrdered By: Preston Hernandez on 02-05-2025 Platelets (Bld) [#/Vol] 341 10*3/uL 150-450 [facility] Potassium measurement (mass/ volume)Ordered By: Arturo Hernandez on 02-05-2025 Potassium (Unsp spec) [Mass/Vol] 3.8 mmol/L 3.3-5.1 [facility] ,Serum,hCG Quali.on 02-05-2025 HCG, SERUM QUAL Negative Normal [facility] Comment on above: Performed By: #### L 100.0100, L501.2450, L500.4050, L700.6800 #### [facility] [address] [place], [address] Protein Test strip Ql (U)Ord ered By: Arturo Hernandez on 02-05-2025 Protein Ql (U) 30 mg/dl High Negative [facility] RBC Auto (Bld) [#/Vol]Ordere d By: Arturo Hernandez on 02-05-2025 RBC (Bld) [#/Vol] 4.86 10*6/uL 4.2-5.4 [facility] Serum beta-hCG test, qualita tiveOrdered By: Arturo Hernandez on 02-05-2025 Beta HCG ( test) Ql Negative [facility] Serum creatinine measurement (mass/volume)Ordered By: Arturo Hernandez on 02-05-2025 Creatinine [Mass/Vol] 0.91 mg/dL 0.70-1.20 [facility] Serum globulin measurementOr dered By: Arturo Hernandez on 02-05-2025 Globulin (S) [Mass/Vol] 2.9 g/dL 2.2-4.2 [facility] Serum glucose measurement (m ass/volume)Ordered By: Arturo Hernandez on 02-05-2025 Glucose [Mass/Vol] 92 mg/dL 70-99 [facility] Serum or plasma alanine lowe otransferase (ALT) measurementOrdered By: Arturo Hernandez on 02-05-2025 ALT [Catalytic activity/Vol] 15 U/L <35 [facility] Serum or plasma albumin vel urement (mass/volume)Ordered By: Arturo Hernandez on 02-05-2025 Albumin [Mass/Vol] 4.8 g/dL 3.5-5.0 [facility] Serum or plasma albumin/glob ulin mass ratioOrdered By: Arturo Hernandez on 02-05-2025 Albumin/Globulin [Mass ratio] 1.7 {ratio} 0.9-2.4 [facility] Serum or plasma alkaline jeromy sphatase measurementOrdered By: Arturo Hernandez on 02-05-2025 ALP [Catalytic activity/Vol] 59 U/L 35-104 [facility] Serum or plasma calcium vel urement (mass/volume)Ordered By: Arturo Hernandez on 02-05-2025 Calcium [Mass/Vol] 9.9 mg/dL 7.6-11.0 [facility] Serum or plasma urea nitroge n measurement (mass/volume)Ordered By: Arturo Hernandez on 02-05-2025 Urea nitrogen [Mass/Vol] 11 mg/dL 4-19 [facility] Sodium levelOrdered By: Arturo Hernandez on 02-05-2025 Sodium [Moles/Vol] 142 mmol/L 133-145 [facility] Squamous epithelial cells de tection in urine sediment by light microscopyOrdered By: Arturo Hernandez on 02-05-2025 Epithelial cells.squamous LM Ql (Urine sed) 0-5 SEEN /hpf 12-31 [facility] Total proteinOrdered By: Anabella Hernandez on 02-05-2025 Protein [Mass/Vol] 7.7 g/dL 5.9-8.4 [facility] Urinalysis, Completeon 02-05 EPI,SQUAMOUS 0-5 SEEN Normal - [facility] Comment on above: Order Comment: CLEAN CATCH Performed By: #### L 400.0001 ####[facility] [address] [place], [place], [id number] BACTERIA 0 SEEN Normal None Seen [facility] Comment on above: Order Comment: CLEAN CATCH Performed By: #### L 400.0001 ####[facility] [address] [place], [place], [id number] Mucus Ql (Urine sed) 0 SEEN Normal [facility] Comment on above: Order Comment: CLEAN CATCH Performed By: #### L 400.0001 ####[facility] [address] [place], [place], [id number] RBC 0 SEEN Normal 0-5 [facility] Comment on above: Order Comment: CLEAN CATCH Performed By: #### L 400.0001 ####[facility] [address] [place], [place], [id number] WBC 0 SEEN Normal 0-5 [facility] Comment on above: Order Comment: CLEAN CATCH Performed By: #### L 400.0001 ####[facility] [address] [place], [place], [id number] Urine clarityOrdered By: Anabella Hernandez on 02-05-2025 Clarity (U) Clear Clear [facility] Urine color determinationOrd ered By: Arturo Hernandez on 02-05-2025 Color (U) Yellow Yellow [facility] Urine glucose detectionOrder ed By: Arturo Hernandez on 02-05-2025 Glucose Ql (U) Normal mg/dl Normal [facility] Urine leukocyte esterase det ection by dipstickOrdered By: Arturo Hernandez on 02-05-2025 Leukocyte esterase Test strip Ql (U) Negative Negative [facility] Urine pHOrdered By: Arturo grace on 02-05-2025 pH (U) 7.0 [pH] 5.0 - 8.0 [facility] Urine sediment bacteria coun t by microscopy (number/high power field)Ordered By: Arturo Hernandez on 02-05-2025 Bacteria LM.HPF (Urine sed) [#/Area] 0 /[HPF] None Seen [facility] Urine specific gravity measu rementOrdered By: Arturo Hernandez on 02-05-2025 Specific gravity (U) [Rel density] 1.005 1.002-1.030 [facility] Urine urobilinogen measureme ntOrdered By: Arturo Hernandez on 02-05-2025 Urobilinogen Ql (U) Normal mg/dl Normal [facility] White blood cell (WBC) count Ordered By: Arturo Hernandez on 02-05-2025 WBC (Bld) [#/Vol] 7.1 10*3/uL 4.4-11.0 [facility] White blood cell countOrdere d By: Arturo Madonnabee on 02-05-2025 White blood cell count 0 SEEN /hpf 0-5 [facility] Bilirubin Test strip Ql (U)O rdered By: Yaron Peralta on 01-23-2025 Bilirubin Ql (U) Negative Negative [facility] Emergency Department Summary on 01-23-2025 Emergency Department Summary [facility] Medical Records Department [address] [place] [address] Emergency Department Summary 01/23/25 MR#: [id number] Acct: [id number] Name: LUIS BARAJAS Rep #: [id number] : 2005 19 From: Yaron Peralta MD [...] Appearance ED (more content not included)... Normal [facility] Ketones Test strip Ql (U)Ord ered By: Yaron Peralta on 01-23-2025 Ketones Ql (U) Negative Negative [facility] Microscopic analysis of urin e for red blood cells (RBC)Ordered By: Yaron Peralta on 01-23-2025 Microscopic analysis of urine for red blood cells (RBC) 0-5 SEEN /hpf 0-5 [facility] Mucus LM Ql (Urine sed)Order ed By: Yaron Peralta on 01-23-2025 Mucus Ql (Urine sed) 0 SEEN /hpf [facility] Nitrite Test strip Ql (U)Ord ered By: Yaron Peralta on 01-23-2025 Nitrite Ql (U) Negative Negative [facility] ,Serum,hCG Quali.on 01-23-2025 HCG, SERUM QUAL Negative Normal [facility] Comment on above: Performed By: #### L 700.6800 ####[facility] [address] [place], [place], [id number] Protein Test strip Ql (U)Ord ered By: Yaron Peralta on 01-23-2025 Protein Ql (U) 15 mg/dl High Negative [facility] Serum beta-hCG test, qualita tiveOrdered By: Yaron Peralta on 01-23-2025 Beta HCG ( test) Ql Negative [facility] Squamous epithelial cells de tection in urine sediment by light microscopyOrdered By: Yaron Peralta on 01-23-2025 Epithelial cells.squamous LM Ql (Urine sed) 0-5 SEEN /hpf 5-10 [facility] Urinalysis, Completeon 01-23 BACTERIA 1+ /hpf Normal None Seen [facility] Comment on above: Order Comment: CLEAN CATCH Performed By: #### L 400.0001 ####[facility] [address] [place], [address] EPI,SQUAMOUS 0-5 SEEN Normal 5-10 [facility] Comment on above: Order Comment: CLEAN CATCH Performed By: #### L 400.0001 ####[facility] [address] [place], [address] RBC 0-5 SEEN Normal 0-5 [facility] Comment on above: Order Comment: CLEAN CATCH Performed By: #### L 400.0001 ####[facility] [address] [place], [address] WBC 0-5 SEEN Normal 0-5 [facility] Comment on above: Order Comment: CLEAN CATCH Performed By: #### L 400.0001 ####[facility] [address] [place], [address] Mucus Ql (Urine sed) 0 SEEN Normal [facility] Comment on above: Order Comment: CLEAN CATCH Performed By: #### L 400.0001 ####[facility] [address] [place], [address] Urine clarityOrdered By: Lele Peralta on 01-23-2025 Clarity (U) Sl. Cloudy Clear [facility] Urine color determinationOrd ered By: Yaron Peralta on 01-23-2025 Color (U) Yellow Yellow [facility] Urine glucose detectionOrder ed By: Yaron Peralta on 01-23-2025 Glucose Ql (U) Normal mg/dl Normal [facility] Urine leukocyte esterase det ection by dipstickOrdered By: Yaron Peralta on 01-23-2025 Leukocyte esterase Test strip Ql (U) 25 /ul High Negative [facility] Urine pHOrdered By: Yaron Landis ght on 01-23-2025 pH (U) 6.5 [pH] 5.0 - 8.0 [facility] Urine sediment bacteria coun t by microscopy (number/high power field)Ordered By: Yaron Peralta on 01-23-2025 Bacteria LM.HPF (Urine sed) [#/Area] 1 /[HPF] None Seen [facility] Urine specific gravity measu rementOrdered By: Yaron Peralta on 01-23-2025 Specific gravity (U) [Rel density] 1.010 1.002-1.030 [facility] Urine urobilinogen measureme ntOrdered By: Yaron Peralta on 01-23-2025 Urobilinogen Ql (U) Normal mg/dl Normal [facility] White blood cell countOrdere d By: Yaron Peratla on 01-23-2025 White blood cell count 0-5 SEEN /hpf 0-5 [facility] Absolute lymphocyte countOrd ered By: Javier Isabel on 01-20-2025 Lymphocytes Auto (Unsp spec) [#/Vol] 3.05 10*3/uL 0.83-4.51 [facility] Absolute neutrophil countOrd ered By: Javier sIabel on 01-20-2025 Neutrophils (Bld) [#/Vol] 6.1 10*3/uL 2.0-7.7 [facility] Anion gap in Serum or Plasma Ordered By: Javier Isabel on 01-20-2025 Anion gap [Moles/Vol] 12 mmol/L 5-15 [facility] Automated lymphocyte count a s percentage of total leukocytesOrdered By: Javier Isabel on 01-20-2025 Lymphocytes/100 WBC Auto (Unsp spec) 30.2 % 19-41 [facility] BUN/creatinine ratioOrdered By: Javier Isabel on 01-20-2025 Urea nitrogen/Creatinine [Mass ratio] 8.7 mg/mg Low 10-20 [facility] Basophil percentageOrdered B y: Javier Isabel on 01-20-2025 Basophils/100 WBC (Bld) 0.9 % 0-1 [facility] Bilirubin Test strip Ql (U)O rdered By: Javier Isabel on 01-20-2025 Bilirubin Ql (U) Negative Negative [facility] Bilirubin, totalOrdered By: Javier Isabel on 01-20-2025 Bilirubin [Mass/Vol] 0.67 mg/dL 0.00-1.30 [facility] CBC W/Diff, Automatedon 05-3 0-202 Absolute Lymph 3.05 X10 3/uL Normal 0.83-4.51 [facility] Comment on above: Performed By: #### L 700.6800, L501.2450, L500.4050, L100.0100 ####[facility] [address] [place], [address] Absolute Neut 6.1 X10 3/uL Normal 2.0-7.7 [facility] Comment on above: Performed By: #### L 700.6800, L501.2450, L500.4050, L100.0100 ####[facility] [address] [place], [address] Basophils/100 WBC (Bld) 0.9 % Normal 0-1 [facility] Comment on above: Performed By: #### L 700.6800, L501.2450, L500.4050, L100.0100 ####[facility] [address] [place], [address] Eosinophils/100 WBC (Bld) 1.9 % Normal 0-5 [facility] Comment on above: Performed By: #### L 700.6800, L501.2450, L500.4050, L100.0100 ####[facility] [address] [place], [address] Erythrocyte distribution width (RBC) [Ratio] 11.8 % Normal 11.6-14.6 [facility] Comment on above: Performed By: #### L 700.6800, L501.2450, L500.4050, L100.0100 ####[facility] [address] [place], [address] Hematocrit (Bld) [Volume fraction] 40.5 % Normal 37-47 [facility] Comment on above: Performed By: #### L 700.6800, L501.2450, L500.4050, L100.0100 ####[facility] [address] [place], [address] Hemoglobin (Bld) [Mass/Vol] 13.5 g/dL Normal 12.0-15.0 [facility] Comment on above: Performed By: #### L 700.6800, L501.2450, L500.4050, L100.0100 ####[facility] [address] [place], [address] IG% 0.300 Normal 0.0-0.9 [facility] Comment on above: Result Comment: IG% - Immature Granulocytes (promyelocytes, myelocytes and metamyelocytes) > 1% indicates that a LEFT SHIFT is Present. Performed By: #### L 700.6800, L501.2450, L500.4050, L100.0100 ####[facility] [address] [place], [address] Lymphocytes/100 WBC (Bld) 30.2 % Normal 19-41 [facility] Comment on above: Performed By: #### L 700.6800, L501.2450, L500.4050, L100.0100 ####[facility] [address] [place], [address] MCH (RBC) [Entitic mass] 28.7 pg Normal 27.0-32.0 [facility] Comment on above: Performed By: #### L 700.6800, L501.2450, L500.4050, L100.0100 ####[facility] [address] [place], [address] MCHC (RBC) [Mass/Vol] 33.3 g/dL Normal 32-36 [facility] Comment on above: Performed By: #### L 700.6800, L501.2450, L500.4050, L100.0100 ####[facility] [address] [place], [address] MCV (RBC) [Entitic vol] 86.2 fL Normal 81-99 [facility] Comment on above: Performed By: #### L 700.6800, L501.2450, L500.4050, L100.0100 ####[facility] [address] [place], [address] Monocytes/100 WBC (Bld) 6.6 % Normal 0-10 [facility] Comment on above: Performed By: #### L 700.6800, L501.2450, L500.4050, L100.0100 ####[facility] [address] [place], [address] Neutrophils/100 WBC (Bld) 60.1 % Normal 47-70 [facility] Comment on above: Performed By: #### L 700.6800, L501.2450, L500.4050, L100.0100 ####[facility] [address] [place], [address] Nucleated RBC (Bld) [#/Vol] 0 10*3/uL Normal 0-5 [facility] Comment on above: Performed By: #### L 700.6800, L501.2450, L500.4050, L100.0100 ####[facility] [address] [place], [address] Platelet mean volume (Bld) [Entitic vol] 10.1 fL Normal 6.2-12.0 [facility] Comment on above: Performed By: #### L 700.6800, L501.2450, L500.4050, L100.0100 ####[facility] [address] [place], [address] Platelets (Bld) [#/Vol] 358 10*3/uL Normal 150-450 [facility] Comment on above: Performed By: #### L 700.6800, L501.2450, L500.4050, L100.0100 ####[facility] [address] [place], [address] RBC (Bld) [#/Vol] 4.70 10*6/uL Normal 4.2-5.4 [facility] Comment on above: Performed By: #### L 700.6800, L501.2450, L500.4050, L100.0100 ####[facility] [address] [place], [address] RDW SD 37.2 fl Normal 35.1-43.9 [facility] Comment on above: Performed By: #### L 700.6800, L501.2450, L500.4050, L100.0100 ####[facility] [address] [place], [address] WBC (Bld) [#/Vol] 10.1 10*3/uL Normal 4.4-11.0 [facility] Comment on above: Performed By: #### L 700.6800, L501.2450, L500.4050, L100.0100 ####[facility] [address] [place], [address] CT Chest, Abd, Pel w/Contras ton 01-20-2025 CT Chest, Abd, Pel w/Contrast [facility] Imaging Services [address] [place] [address] CT Chest, Abd, Pel w/Contrast MR#: [id number] Acct: [id number] Name: LUIS BARAJAS Rep #: [id number] : 2005 F 19 From: José Luis Robison PCP: Dr. Mitzy Fung MD Status: REG ER Study: CT Chest, Abd, Pel w/Contrast Date of Exam: Exam# [id number] Ordering Dr: Javier Isabel DO PROCEDURE: CT [...] on series 2, image 66. Reading Location: [facility] CC: Dr. Javier Isabel DO; Dr. Mitzy Fung MD [employer]er: Signed Normal [facility] Carbon dioxide, total [Moles /volume] in Central venous bloodOrdered By: Javier Isabel on 01-20-2025 CO2 [Moles/Vol] 21.7 mmol/L 21.0-32.0 [facility] Chloride assayOrdered By: Sana Isabel on 01-20-2025 Chloride [Moles/Vol] 105 mmol/L 98-108 [facility] Comprehensive Metabolic Prof ilon 01-20-2025 Albumin [Mass/Vol] 4.7 g/dL Normal 3.5-5.0 [facility] Comment on above: Performed By: #### L 700.6800, L501.2450, L500.4050, L100.0100 ####[facility] [address] [place], [address] Albumin/Globulin [Mass ratio] 1.6 {ratio} Normal 0.9-2.4 [facility] Comment on above: Performed By: #### L 700.6800, L501.2450, L500.4050, L100.0100 ####[facility] [address] [place], [address] ALK PHOS 58 U/L Normal 35-104 [facility] Comment on above: Performed By: #### L 700.6800, L501.2450, L500.4050, L100.0100 ####[facility] [address] [place], [address] ALT [Catalytic activity/Vol] 13 U/L Normal <=34 [facility] Comment on above: Performed By: #### L 700.6800, L501.2450, L500.4050, L100.0100 ####[facility] [address] [place], [address] AST [Catalytic activity/Vol] 25 U/L Normal <=31 [facility] Comment on above: Performed By: #### L 700.6800, L501.2450, L500.4050, L100.0100 ####[facility] [address] [place], [address] Bilirubin [Mass/Vol] 0.67 mg/dL Normal 0.00-1.30 [facility] Comment on above: Performed By: #### L 700.6800, L501.2450, L500.4050, L100.0100 ####[facility] [address] [place], [address] BUN/CRE 8.7 RATIO Low 10-20 [facility] Comment on above: Performed By: #### L 700.6800, L501.2450, L500.4050, L100.0100 ####[facility] [address] [place], [address] Calcium [Mass/Vol] 9.7 mg/dL Normal 7.6-11.0 [facility] Comment on above: Performed By: #### L 700.6800, L501.2450, L500.4050, L100.0100 ####[facility] [address] [place], [address] Chloride [Moles/Vol] 105 mmol/L Normal 98-108 [facility] Comment on above: Performed By: #### L 700.6800, L501.2450, L500.4050, L100.0100 ####[facility] [address] [place], [address] CO2 [Moles/Vol] 21.7 mmol/L Normal 21.0-32.0 [facility] Comment on above: Performed By: #### L 700.6800, L501.2450, L500.4050, L100.0100 ####[facility] [address] [place], [address] Creatinine [Mass/Vol] 0.94 mg/dL Normal 0.70-1.20 [facility] Comment on above: Performed By: #### L 700.6800, L501.2450, L500.4050, L100.0100 ####[facility] [address] [place], [address] ECRCL 86.62 ml/min Normal 50-250 [facility] Comment on above: Performed By: #### L 700.6800, L501.2450, L500.4050, L100.0100 ####[facility] [address] [place], [address] GAP 12 Normal 5-15 [facility] Comment on above: Performed By: #### L 700.6800, L501.2450, L500.4050, L100.0100 ####[facility] [address] [place], [address] GFR/1.73 sq M.predicted among non-blacks MDRD (S/P/Bld) [Vol rate/Area] 89 mL/min/{1.73_m2} Normal >60 [facility] Comment on above: Result Comment: mL/m in/1.73m2 CKD-EPI Creatinine Equation (2020) Performed By: #### L 700.6800, L501.2450, L500.4050, L100.0100 ####[facility] [address] [place], [address] Globulin (S) [Mass/Vol] 3.0 g/dL Normal 2.2-4.2 [facility] Comment on above: Performed By: #### L 700.6800, L501.2450, L500.4050, L100.0100 ####[facility] [address] [place], [address] Glucose [Mass/Vol] 92 mg/dL Normal 70-99 [facility] Comment on above: Performed By: #### L 700.6800, L501.2450, L500.4050, L100.0100 ####[facility] [address] [place], [address] Potassium [Moles/Vol] 3.9 mmol/L Normal 3.3-5.1 [facility] Comment on above: Performed By: #### L 700.6800, L501.2450, L500.4050, L100.0100 ####[facility] [address] [place], [address] Sodium [Moles/Vol] 139 mmol/L Normal 133-145 [facility] Comment on above: Performed By: #### L 700.6800, L501.2450, L500.4050, L100.0100 ####[facility] [address] [place], [address] T PROT 7.7 g/dL Normal 5.9-8.4 [facility] Comment on above: Performed By: #### L 700.6800, L501.2450, L500.4050, L100.0100 ####[facility] [address] [place], [address] Urea nitrogen [Mass/Vol] 8 mg/dL Normal 4-19 [facility] Comment on above: Performed By: #### L 700.6800, L501.2450, L500.4050, L100.0100 ####[facility] [address] [place], [address] Emergency Department Summary on 01-20-2025 Emergency Department Summary [facility] Medical Records Department [address] [place] [address] Emergency Department Summary 01/20/25 MR#: [id number] Acct: [id number] Name: LUIS BARAJAS Rep #: [id number] : 2005 19 From: Javier Isabel DO [...] days. Patient denies any fevers or chills. [facility] Medical History Wears glasses Bipolar disorder [...] x3, CN's (more content not included)... Normal [facility] Eosinophil percentageOrdered By: Javier Isabel on 01-20-2025 Eosinophils/100 WBC (Bld) 1.9 % 0-5 [facility] Erythrocyte distribution wid th ratioOrdered By: Javier Isabel on 01-20-2025 Erythrocyte distribution width (RBC) [Ratio] 11.8 % 11.6-14.6 [facility] Erythrocyte distribution wid th standard deviationOrdered By: Javier Isabel on 01-20-2025 Erythrocyte distribution width (RBC) [Ratio] 37.2 fl 35.1-43.9 [facility] Glomerular filtration rate ( GFR) estimation/1.73 sq m using serum, plasma, or whole bOrdered By: Javier Isabel on 01-20-2025 GFR/1.73 sq M.predicted among non-blacks MDRD (S/P/Bld) [Vol rate/Area] 89 mL/min/{1.73_m2} >60 [facility] Comment on above: mL/min/1.73m2 CKD-EP I Creatinine Equation (2020) Hematocrit Auto (Bld) [Volum e fraction]Ordered By: Javier Isabel on 01-20-2025 Hematocrit (Bld) [Volume fraction] 40.5 % 37-47 [facility] Hemoglobin measurementOrdere d By: Javier Isabel on 01-20-2025 Hemoglobin (Bld) [Mass/Vol] 13.5 g/dL 12.0-15.0 [facility] Immature granulocytes/100 WB C Auto (Bld)Ordered By: Javier Isabel on 01-20-2025 Immature granulocytes/100 WBC (Bld) 0.300 % 0.0-0.9 [facility] Comment on above: IG% - Immature Granu locytes (promyelocytes, myelocytes and metamyelocytes) > 1% indicates that a LEFT SHIFT is Present. Ketones Test strip Ql (U)Ord ered By: Javier Isabel on 01-20-2025 Ketones Ql (U) Negative Negative [facility] Laboratory - Chemistry and C hemistry - challengeOrdered By: Javier Isabel on 01-20-2025 AST [Catalytic activity/Vol] 25 U/L <32 [facility] Lipaseon 01-20-2025 Lipase [Catalytic activity/Vol] 28 U/L Normal 13-75 [facility] Comment on above: Result Comment: Antonio castro note: LIPASE revised reference range effective 22. New Lipase methodology. Expected to produce lower values than the previous assay method. NEW Reference Range: 13 - 75 U/L Performed By: #### L 700.6800, L501.2450, L500.4050, L100.0100 ####[facility] [address] [place], [address] Lipase measurementOrdered By : Javier Isabel on 01-20-2025 Lipase [Catalytic activity/Vol] 28 U/L 13-75 [facility] Comment on above: Please note:LIPASE r evised reference range effective 22. New Lipase methodology. Expected to produce lower values than the previous assay method. NEW Reference Range: 13 - 75 U/L MCV (mean corpuscular volume ) determinationOrdered By: Javier Isabel on 01-20-2025 MCV (RBC) [Entitic vol] 86.2 fL 81-99 [facility] Mean corpuscular hemoglobin (MCH) determinationOrdered By: Javier Isabel on 01-20-2025 MCH (RBC) [Entitic mass] 28.7 pg 27.0-32.0 [facility] Mean corpuscular hemoglobin concentration (MCHC) determinationOrdered By: Javier Isabel on 01-20-2025 MCHC (RBC) [Mass/Vol] 33.3 g/dL 32-36 [facility] Mean platelet volume determi nationOrdered By: Javier Isabel on 01-20-2025 Platelet mean volume (Bld) [Entitic vol] 10.1 fL 6.2-12.0 [facility] Microscopic analysis of urin e for red blood cells (RBC)Ordered By: Javier Isabel on 01-20-2025 Microscopic analysis of urine for red blood cells (RBC) 0-5 SEEN /hpf 0-5 [facility] Monocyte percentageOrdered B y: Javier Isabel on 01-20-2025 Monocytes/100 WBC (Bld) 6.6 % 0-10 [facility] Mucus LM Ql (Urine sed)Order ed By: Javier Isabel on 01-20-2025 Mucus Ql (Urine sed) 0 SEEN /hpf [facility] Neutrophil percentageOrdered By: Javier Isabel on 01-20-2025 Neutrophils/100 WBC (Bld) 60.1 % 47-70 [facility] Nitrite Test strip Ql (U)Ord ered By: Javier Isabel on 05-30-2025 Nitrite Ql (U) Negative Negative [facility] Nucleated red blood cell per centageOrdered By: Javier Isabel on 01-20-2025 Nucleated RBC/100 WBC (Bld) [Ratio] 0 % 0-5 [facility] Platelet countOrdered By: Sana Isabel on 01-20-2025 Platelets (Bld) [#/Vol] 358 10*3/uL 150-450 [facility] Potassium measurement (mass/ volume)Ordered By: Javier Isabel on 01-20-2025 Potassium (Unsp spec) [Mass/Vol] 3.9 mmol/L 3.3-5.1 [facility] ,Serum,hCG Quali.on 01-20-2025 HCG, SERUM QUAL Negative Normal [facility] Comment on above: Performed By: #### L 700.6800, L501.2450, L500.4050, L100.0100 ####[facility] [address], [place], [id number] Protein Test strip Ql (U)Ord ered By: Javier Isabel on 01-20-2025 Protein Ql (U) 15 mg/dl High Negative [facility] RBC Auto (Bld) [#/Vol]Ordere d By: Javier Isabel on 01-20-2025 RBC (Bld) [#/Vol] 4.70 10*6/uL 4.2-5.4 [facility] Serum beta-hCG test, qualita tiveOrdered By: Javier Isabel on 01-20-2025 Beta HCG ( test) Ql Negative [facility] Serum creatinine measurement (mass/volume)Ordered By: Javier Isabel on 01-20-2025 Creatinine [Mass/Vol] 0.94 mg/dL 0.70-1.20 [facility] Serum globulin measurementOr dered By: Javier Isabel on 01-20-2025 Globulin (S) [Mass/Vol] 3.0 g/dL 2.2-4.2 [facility] Serum glucose measurement (m ass/volume)Ordered By: Javier Isabel on 01-20-2025 Glucose [Mass/Vol] 92 mg/dL 70-99 [facility] Serum or plasma alanine lowe otransferase (ALT) measurementOrdered By: Javier Isabel on 01-20-2025 ALT [Catalytic activity/Vol] 13 U/L <35 [facility] Serum or plasma albumin vel urement (mass/volume)Ordered By: Javier Isabel on 01-20-2025 Albumin [Mass/Vol] 4.7 g/dL 3.5-5.0 [facility] Serum or plasma albumin/glob ulin mass ratioOrdered By: Javier Isabel on 01-20-2025 Albumin/Globulin [Mass ratio] 1.6 {ratio} 0.9-2.4 [facility] Serum or plasma alkaline jeromy sphatase measurementOrdered By: Javier Isabel on 01-20-2025 ALP [Catalytic activity/Vol] 58 U/L 35-104 [facility] Serum or plasma calcium vel urement (mass/volume)Ordered By: Javier Isabel on 01-20-2025 Calcium [Mass/Vol] 9.7 mg/dL 7.6-11.0 [facility] Serum or plasma urea nitroge n measurement (mass/volume)Ordered By: Javier Isabel on 01-20-2025 Urea nitrogen [Mass/Vol] 8 mg/dL 4-19 [facility] Sodium levelOrdered By: Javier Isabel on 01-20-2025 Sodium [Moles/Vol] 139 mmol/L 133-145 [facility] Squamous epithelial cells de tection in urine sediment by light microscopyOrdered By: Javier Isabel on 01-20-2025 Epithelial cells.squamous LM Ql (Urine sed) 0 SEEN /hpf 5-10 [facility] Total proteinOrdered By: Lina Isabel on 01-20-2025 Protein [Mass/Vol] 7.7 g/dL 5.9-8.4 [facility] Urinalysis, Completeon 01-20 RBC 0-5 SEEN Normal 0-5 [facility] Comment on above: Order Comment: CLEAN CATCH Performed By: #### L 400.0001 ####[facility] [address] [place], [address] WBC 0-5 SEEN Normal 0-5 [facility] Comment on above: Order Comment: CLEAN CATCH Performed By: #### L 400.0001 ####[facility] [address] [place], [address] BACTERIA 0 SEEN Normal None Seen [facility] Comment on above: Order Comment: CLEAN CATCH Performed By: #### L 400.0001 ####[facility] [address] [place], [address] EPI,SQUAMOUS 0 SEEN Normal 5-10 [facility] Comment on above: Order Comment: CLEAN CATCH Performed By: #### L 400.0001 ####[facility] [address] [place], [address] Mucus Ql (Urine sed) 0 SEEN Normal [facility] Comment on above: Order Comment: CLEAN CATCH Performed By: #### L 400.0001 ####[facility] [address] [place], [place], [address] Urine clarityOrdered By: Lina Isabel on 01-20-2025 Clarity (U) Clear Clear [facility] Urine color determinationOrd ered By: Javier Isabel on 01-20-2025 Color (U) Straw Yellow [facility] Urine glucose detectionOrder ed By: Javier Isabel on 01-20-2025 Glucose Ql (U) Normal mg/dl Normal [facility] Urine leukocyte esterase det ection by dipstickOrdered By: Javier Isabel on 01-20-2025 Leukocyte esterase Test strip Ql (U) Negative Negative [facility] Urine pHOrdered By: Javier dow on 01-20-2025 pH (U) 7.0 [pH] 5.0 - 8.0 [facility] Urine sediment bacteria coun t by microscopy (number/high power field)Ordered By: Javier Isabel on 01-20-2025 Bacteria LM.HPF (Urine sed) [#/Area] 0 /[HPF] None Seen [facility] Urine specific gravity measu rementOrdered By: Javier Isabel on 01-20-2025 Specific gravity (U) [Rel density] 1.010 1.002-1.030 [facility] Urine urobilinogen measureme ntOrdered By: Javier Isabel on 01-20-2025 Urobilinogen Ql (U) Normal mg/dl Normal [facility] White blood cell (WBC) count Ordered By: Javier Isabel on 01-20-2025 WBC (Bld) [#/Vol] 10.1 10*3/uL 4.4-11.0 [facility] White blood cell countOrdere d By: Javier Isabel on 01-20-2025 White blood cell count 0-5 SEEN /hpf 0-5 [facility] C-REACTIVE PROTEINon 025 CRP [Mass/Vol] mg/L Invalid Interpretation Code <= 1.0 mg/dL [facility] Comment on above: Order Comment: Relea se [...] to generate a CRP response. Verified By: [id number] C-reactive protein (Lab Fred ect)on 09-07-2024 CRP [Mass/Vol] <= 1.0 mg/dL MG/DL [facility] Comment on above: CRP determinations i n neonates should be interpreted with caution. CRP may be elevated in circumstances not associated with inflammation (e.g. difficult delivery, pneumothorax). In premature neonates CRP levels may not rise to abnormal levels even if sepsis is present; some speculate that immature liver function decreases the ability to generate a CRP response. Verified By: [id number] COMPLETE BLOOD COUNT WITH DI FFERENTIALon 09-07-2024 Basophil \P\ 0.08 10E3/???L High 0.02-0.06 [facility] Comment on above: Order Comment: Relea se to patient->Automatic Basophils/100 WBC (Bld) 0.7 % Invalid Interpretation Code 0.3-0.9 [facility] Comment on above: Order Comment: Relea se to patient->Automatic Eosinophil \P\ 0.17 10E3/???L Invalid Interpretation Code 0.04-0.27 [facility] Comment on above: Order Comment: Relea se to patient->Automatic Eosinophils/100 WBC (Bld) 1.4 % Invalid Interpretation Code 0.6-3.8 [facility] Comment on above: Order Comment: Relea se to patient->Automatic Erythrocyte distribution width (RBC) [Ratio] 12.4 % Invalid Interpretation Code 11.9-14.8 [facility] Comment on above: Order Comment: Relea se to patient->Automatic Hematocrit (Bld) [Volume fraction] 46.4 % High 35.5-44.6 [facility] Comment on above: Order Comment: Relea se to patient->Automatic Hemoglobin (Bld) [Mass/Vol] 15.1 g/dL High 11.4-14.8 [facility] Comment on above: Order Comment: Relea se to patient->Automatic Immature granulocytes/100 WBC (Bld) 0.3 % Invalid Interpretation Code 0.2-0.5 [facility] Comment on above: Order Comment: Relea se to patient->Automatic Result Comment: Jina ture Granulocyte Percent includes promyelocytes, myelocytes,and metamyelocytes. IG% > 1.0 indicates a left shift is present. With automated differentials, bands are included in the neutrophil count and not in the Immature Granulocyte Percent. Lymphocyte \P\ 3.57 10E3/???L High 1.51-2.99 [facility] Comment on above: Order Comment: Relea se to patient->Automatic Lymphocytes/100 WBC (Bld) 29.2 % Invalid Interpretation Code 21.8-42.1 [facility] Comment on above: Order Comment: Relea se to patient->Automatic MCH (RBC) [Entitic mass] 28.2 pg Invalid Interpretation Code 25.7-31.2 [facility] Comment on above: Order Comment: Relea se to patient->Automatic MCHC 32.5 % Invalid Interpretation Code 31.3-34.0 [facility] Comment on above: Order Comment: Relea se to patient->Automatic MCV (RBC) [Entitic vol] 86.6 fL Invalid Interpretation Code 80.7-93.7 [facility] Comment on above: Order Comment: Relea se to patient->Automatic Monocyte \P\ 0.89 10E3/???L High 0.36-0.77 [facility] Comment on above: Order Comment: Relea se to patient->Automatic Monocytes/100 WBC (Bld) 7.3 % Invalid Interpretation Code 5.6-10.2 [facility] Comment on above: Order Comment: Relea se to patient->Automatic Neutrophil \P\ 7.46 10E3/???L High 2.43-6.42 [facility] Comment on above: Order Comment: Relea se to patient->Automatic Neutrophils/100 WBC (Bld) 61.1 % Invalid Interpretation Code 46.0-68.6 [facility] Comment on above: Order Comment: Relea se to patient->Automatic Nucleated RBC/100 WBC (Bld) [Ratio] 0.0 % Invalid Interpretation Code 0.0-0.0 [facility] Comment on above: Order Comment: Relea se to patient->Automatic Platelet mean volume (Bld) [Entitic vol] 10.1 fL Invalid Interpretation Code 9.6-11.9 [facility] Comment on above: Order Comment: Relea se to patient->Automatic Platelets 412 10E3/???L High 150-400 [facility] Comment on above: Order Comment: Relea se to patient->Automatic RBC 5.36 10E6/???L High 4.03-4.91 [facility] Comment on above: Order Comment: Relea se to patient->Automatic WBC 12.2 10E3/???L High 4.9-10.0 [facility] Comment on above: Order Comment: Relea se to patient->Automatic COMPREHENSIVE METABOLIC PANE Joni 09-07-2024 Albumin [Mass/Vol] 4.7 g/dL Invalid Interpretation Code 3.5-5.0 [facility] Comment on above: Order Comment: Relea se to patient->Automatic Result Comment: Veri fied By: [id number] ALP [Catalytic activity/Vol] 62 U/L Invalid Interpretation Code 35-104 [facility] Comment on above: Order Comment: Relea se to patient->Automatic Result Comment: Veri fied By: [id number] ALT [Catalytic activity/Vol] 12 U/L Invalid Interpretation Code <=34 [facility] Comment on above: Order Comment: Relea se to patient->Automatic Result Comment: Veri fied By: [id number] AST [Catalytic activity/Vol] 30 U/L Invalid Interpretation Code <=31 [facility] Comment on above: Order Comment: Relea se to patient->Automatic Result Comment: Veri fied By: [id number] BILI,TOTAL 0.7 mg/dL Invalid Interpretation Code <=1.0 [facility] Comment on above: Order Comment: Relea se to patient->Automatic Result Comment: Veri fied By: [id number] Calcium [Mass/Vol] 10.5 mg/dL Invalid Interpretation Code 7.6-11.0 [facility] Comment on above: Order Comment: Relea se to patient->Automatic Result Comment: Veri fied By: [id number] Chloride [Moles/Vol] 102 mmol/L Invalid Interpretation Code 96-108 [facility] Comment on above: Order Comment: Relea se to patient->Automatic Result Comment: Veri fied By: [id number] CO2 [Moles/Vol] 26.1 mmol/L Invalid Interpretation Code 22.0-29.0 [facility] Comment on above: Order Comment: Relea se to patient->Automatic Result Comment: Veri fied By: [id number] Creatinine [Mass/Vol] 0.79 mg/dL Invalid Interpretation Code 0.50-1.00 [facility] Comment on above: Order Comment: Relea se to patient->Automatic Result Comment: Veri fied By: [id number] GFR/1.73 sq M.predicted among non-blacks MDRD (S/P/Bld) [Vol rate/Area] mL/min/{1.73_m2} Invalid Interpretation Code >=60 [facility] Comment on above: Order Comment: Relea se to patient->Automatic Glucose [Mass/Vol] 98 mg/dL Invalid Interpretation Code 70-99 [facility] Comment on above: Order Comment: Relea se [...] plus Classic Symptoms of Diabetes Verified By: [id number] Potassium [Moles/Vol] 4.1 mmol/L Invalid Interpretation Code 3.3-5.1 [facility] Comment on above: Order Comment: Relea se to patient->Automatic Result Comment: Veri fied By: [id number] Protein [Mass/Vol] 8.0 g/dL Invalid Interpretation Code 5.9-8.4 [facility] Comment on above: Order Comment: Relea se to patient->Automatic Result Comment: Veri fied By: [id number] Sodium [Moles/Vol] 141 mmol/L Invalid Interpretation Code 133-145 [facility] Comment on above: Order Comment: Relea se to patient->Automatic Result Comment: Veri fied By: [id number] Urea nitrogen [Mass/Vol] 13 mg/dL Invalid Interpretation Code 4-19 [facility] Comment on above: Order Comment: Relea se to patient->Automatic Result Comment: Veri fied By: [id number] Complete Blood Count with Di fferentialOrdered By: Lindy Greer on 09-07-2024 Basophils (Bld) [#/Vol] 0.08 10*3/uL High [facility] Basophils/100 WBC (Bld) 0.7 % 0.3 - 0.9 % [facility] Eosinophils (Bld) [#/Vol] 0.17 10*3/uL [facility] Eosinophils/100 WBC (Bld) 1.4 % 0.6 - 3.8 % [facility] Erythrocyte distribution width (RBC) [Ratio] 12.4 % 11.9 - 14.8 % [facility] Hematocrit (Bld) [Volume fraction] 46.4 % High 35.5 - 44.6 % [facility] Hemoglobin (Bld) [Mass/Vol] 15.1 g/dL High 11.4 - 14.8 g/dL [facility] Immature granulocytes/100 WBC (Bld) 0.3 % 0.2 - 0.5 % [facility] Comment on above: Immature Granulocyte Percent includes promyelocytes, myelocytes,and metamyelocytes. IG% > 1.0 indicates a left shift is present. With automated differentials, bands are included in the neutrophil count and not in the Immature Granulocyte Percent. Interpretation and review of laboratory results Abnormal [facility] Lymphocytes (Bld) [#/Vol] 3.57 10*3/uL [facility] Lymphocytes/100 WBC (Bld) 29.2 % 21.8 - 42.1 % [facility] MCH (RBC) [Entitic mass] 28.2 pg 25.7 - 31.2 pg [facility] MCHC (RBC) [Mass/Vol] 32.5 % 31.3 - 34.0 % [facility] MCV (RBC) [Entitic vol] 86.6 fL 80.7 - 93.7 fL [facility] Monocytes (Bld) [#/Vol] 0.89 10*3/uL [facility] Monocytes/100 WBC (Bld) 7.3 % 5.6 - 10.2 % [facility] Neutrophils (Bld) [#/Vol] 7.46 10*3/uL [facility] Neutrophils/100 WBC (Bld) 61.1 % 46.0 - 68.6 % [facility] [facility] Nucleated RBC/100 WBC (Bld) [Ratio] 0 % 0.0 - 0.0 % [facility] Platelet mean volume (Bld) [Entitic vol] 10.1 fL 9.6 - 11.9 fL [facility] Platelets (Bld) [#/Vol] 412 10*3/uL [facility] RBC (Bld) [#/Vol] 5.36 10*6/uL [facility] WBC (Bld) [#/Vol] 12.2 10*3/uL [facility] Comprehensive metabolic pane l (Lab Collect)on 09-07-2024 Albumin BCG dye [Mass/Vol] 4.7 g/dL 3.5 - 5.0 g/dL [facility] Comment on above: Verified By: [id number] ALP [Catalytic activity/Vol] 62 U/L 35 - 104 U/L [facility] Comment on above: Verified By: [id number] ALT With P-5'-P [Catalytic activity/Vol] 12 U/L [facility] - 34 U/L [facility] Comment on above: Verified By: [id number] AST With P-5'-P [Catalytic activity/Vol] 30 U/L [facility] - 31 U/L [facility] Comment on above: Verified By: [id number] Bilirubin [Mass/Vol] 0.7 mg/dL [facility] - 1.0 mg/dL [facility] Comment on above: Verified By: [id number] Calcium [Mass/Vol] 10.5 mg/dL 7.6 - 11. 0 mg/dL [facility] Comment on above: Verified By: [id number] Chloride [Moles/Vol] 102 mmol/L 96 - 108 mmol/L [facility] Comment on above: Verified By: [id number] Creatinine [Mass/Vol] 0.79 mg/dL 0.50 - 1.00 mg/dL [facility] Comment on above: Verified By: [id number] eGFR - PINF [facility] Glucose [Mass/Vol] 98 mg/dL 70 - 99 mg/dL [facility] Comment on above: Criteria for Diagnos is of Diabetes: Fasting Specimen (no caloric intake for at least 8 hours): <100 mg/dL Normal 100-125 mg/dL Increased risk for Diabetes >125 mg/dL Diagnostic for Diabetes Random Glucose (any time of day without regard to last meal): > or = 200 mg/dL plus Classic Symptoms of Diabetes Verified By: [id number] HCO3 (P) [Moles/Vol] 26.1 mmol/L 22.0 - 29.0 mmol/L [facility] Comment on above: Verified By: [id number] Potassium (BldA) [Moles/Vol] 4.1 mmol/L 3.3 - 5.1 mmol/L [facility] Comment on above: Verified By: 00855 Protein [Mass/Vol] 8 g/dL 5.9 - 8.4 g/dL [facility] Comment on above: Verified By: [id number] Sodium [Moles/Vol] 141 mmol/L 133 - 145 mmol/L [facility] Comment on above: Verified By: [id number] Urea nitrogen [Mass/Vol] 13 mg/dL 4 - 19 mg/dL [facility] Comment on above: Verified By: [id number] HEMOGLOBIN A1Con 09-07-2024 HbA1c (Bld) [Mass fraction] 5.5 % Invalid Interpretation Code <=5.6 [facility] Comment on above: Order Comment: Tory castro to patient->Automatic Result Comment: Refe rence Interval: <5.7% 5.7-6.4% Prediabetes > or = 6.5% Diabetes Targets for diabetes management: Type I <7.5% Type II <7.0% Hemoglobin A1c (Lab Collect) on 09-07-2024 HbA1c (Bld) [Mass fraction] 5.5 % NINF - 5.6 % [facility] Comment on above: Reference Interval: <5.7% 5.7-6.4% Prediabetes > or = 6.5% Diabetes Targets for diabetes management: Type I <7.5% Type II <7.0% Interpretation and review of laboratory results Normal [facility] IMMUNOGLOBULIN Aon Immunoglobulin A 270 mg/dL Invalid Interpretation Code 61-348 [facility] Comment on above: Order Comment: Tory castro to patient->Automatic Immunoglobulin AOrdered By: Background Lab on 09-07-2024 IgA [Mass/Vol] 270 mg/dL 61 - 348 mg/dL [facility] Interpretation and review of laboratory results Normal [facility] No Panel Informationon 09-07 Interpretation and review of laboratory results Normal [facility] PREALBUMINon 09-07-2024 Prealbumin [Mass/Vol] 23 mg/dL Invalid Interpretation Code 20-42 [facility] Comment on above: Order Comment: Tory castro to patient->Automatic Prealbuminon 09-07-2024 Interpretation and review of laboratory results Normal [facility] Prealbumin [Mass/Vol] 23 mg/dL 20 - 42 mg/dL [facility] Progress Noteon 09-07-2024 Produce Runner Authentication Interface Message Text Patient ID: Luis [...] Visit and as needed. Check CXR at [facility] Normal chest xray Reviewed asthma plan and [...] abdominal tenderness. Neurological: She is alert. Normal [facility] TRANSGLUTAMINASE IGAon 09-07 Transglutaminase IgA 1.69 U/mL Invalid Interpretation Code <=8.99 [facility] Comment on above: Order Comment: Inter pretation of Results: Negative: <9.0 AU/mL Equivocal: 9.0-16.0 AU/mL Positive: >16.0 AU/mL Method: The anti-tTG antibodies were determined using an FRANKY-based commercially available kit ([facility] Release to patient->Automatic TSH WITH REFLEX TO T4, FREEo n 09-07-2024 TSH 1.030 ???IU/mL Invalid Interpretation Code 0.500-4.300 [facility] Comment on above: Order Comment: Relea se to patient->Automatic TSH with Reflex to T4, Free (Lab Collect)on 09-07-2024 Interpretation and review of laboratory results Normal [facility] TSH Qn 1.03 m[IU]/L [facility] Chest PA and Lateralon 08-29 Chest PA and Lateral [facility] [address] [place] [address] Chest PA and Lateral MR#: [id number] Acct: [id number] Name: LUIS BARAJAS Rep #: [id number] : 2005 F 19 From: Jennie dutta MD PCP: Dr. Mtizy Fung MD Status: [facility] Study: Chest PA and Lateral Date of Exam: 08/29/24 Exam# [id number] Ordering Dr: Lois Conde MD -[id number] HISTORY: PNEUMONIA. TECHNIQUE: XR Chest 2 [...] Mitzy Fung MD; Dr. Lois Conde MD Microelectronics Assembler: Signed Normal [facility] Progress Noteon 08-29-2024 Produce Runner Authentication Interface Message Text Patient ID: Luis [...] no rhonchi. Neurological: She is alert. Normal [facility] CNOVon 08-27-2024 CNOV Office Visit ([facility]) ---- LUIS BARAJAS ([id number]) 5 F Date Time Provider Department 08/27/24 11:45 AM JASMIN ENRIQUEZ [facility] During your visit today, we recorded the following information about you: Temperature Pulse Respiration Blood pressure 98.4 degrees 106/minute 20/minute 110/78 Weight 57.1 kg Jasmin Enriquez APRN.LENS ASSORTER 08/27/2024 12:30 PM Addendum ASSESSMENT/PLAN: 1. Sore [...] Discussed expected course of illness Jasmin Enriquez APRN.LENS ASSORTER Previous hospitalization care team: Attending Provider: Ernestina Lanza MD (attending for admission) Consulting: Tirso Richey MD (ENT) Consulting: Jason Uriostegui MD (infectious disease) Jasmin Enriquez APRN.LENS ASSORTER 08/27/2024 12:30 PM Signed Subjective Ear Pain [...] Passive e (more content not included)... Normal [facility] COVID AND INFLUENZA A/B AND RSV PCR, ROUTINEon 08-27-2024 SARS-CoV-2 (COVID-19) RNA JAIRON+probe Ql (Unsp spec) SARS-COV-2 (AGENT OF COVID-19) RNA: Not detected INFLUENZA A RNA: Not detected INFLUENZA B RNA: Not detected RESPIRATORY SYNCYTIAL VIRUS (RSV) RNA: Not detected Normal [facility] Comment on above: Performed By: #### C VFLRS ####[facility] LABCLIA [id number] [place] [address] [place] STREP A MOLECULAR (POC)on Procedural Control Valid [facility] Strep A (POCT) Negative Negative [facility] Urine Cultureon 06-17-2024 [facility] Escherichia coli [place] Count 50,000-80,000 Escherichia coli: REACTION Ampicillin Islt [...] TMP SMX Islt RYLAND <=20 S Normal [facility] Comment on above: Performed By: #### M 100.4114 ####[facility] [id number] [place], [address] CNDSon 04-26-2024 [facility] HNO ID: [id number] Author: ERNESTINA LANZA MD Service: Hospital Medicine [...] PCOS, asthma, URIEL. Patient was transferred from [facility] today for concerns of 2 cm right [...] sore throat associated with dysphagia At the [place] ED CT neck with IV contrast showing [...] mg tablet Commo (more content not included)... [facility] CONSULTon 04-25-2024 CONSULT HNO ID: [id number] Author: JASON URIOSTEGUI MD Service: Infectious Disease [...] well. Was given an oral cephalosporin by search engineer late last week. States that feeling better [...] COVID-19 original vaccine, age 12+ yr, monovalent (Amtec - PURPLE TOP) 04/30/2021 05/22/2021 Haemophilus influenzae [...] April 25, 2024 TIME: 10:44 AM Normal [facility] Basic Metabolic Panelon Anion gap [Moles/Vol] 7 mmol/L Normal 4-14 [facility] ([place]) Comment on above: Performed By: #### B MP #### [facility] [address] [place] [address] Calcium [Mass/Vol] 9.1 mg/dL Normal 8.5-10.5 [facility] ([place]) Comment on above: Performed By: #### B MP #### [facility] [address] [place] [address] Chloride [Moles/Vol] 106 mmol/L Normal 98-107 [facility] ([place]) Comment on above: Performed By: #### B MP #### [facility] [address] [place] [address] CO2 [Moles/Vol] 25 mmol/L Normal 21-31 [facility] ([place] Comment on above: Performed By: #### B MP #### [facility] [address] [place] [address] Creatinine [Moles/Vol] 0.61 mg/dL Normal 0.60-1.20 [facility] ([place]) Comment on above: Performed By: #### B MP #### [facility] [address] [place] [address] Creatinine and Glomerular filtration rate.predicted panel (S/P/Bld) 153 mL/min Normal >60 [facility] ([place]) Comment on above: Performed By: #### B MP #### [facility] [address] [place] [address] GFR/1.73 sq M.predicted among non-blacks MDRD (S/P/Bld) [Vol rate/Area] 126 mL/min/{1.73_m2} Normal >60 [facility] ([place]) Comment on above: Performed By: #### B MP #### [facility] [address] [place] [address] Glucose [Mass/Vol] 91 mg/dL Normal 70-99 [facility] ([place] Comment on above: Performed By: #### B MP #### [facility] [address] [place] [address] Potassium [Moles/Vol] 3.7 mmol/L Normal 3.6-5.0 [facility] ([place]) Comment on above: Performed By: #### B MP #### [facility] [address] [place] [address] Sodium [Moles/Vol] 138 mmol/L Normal 135-145 [facility] ([place]) Comment on above: Performed By: #### B MP #### [facility] [address] [place] [address] Urea nitrogen [Mass/Vol] 12 mg/dL Normal 7-25 [facility] ([place] Comment on above: Performed By: #### B MP #### [facility] [address] [place] [address] CBC W Auto Differential pane l (Bld)on 04-24-2024 Basophils (Bld) [#/Vol] 0.1 10*3/uL Normal 0.00-0.20 [facility] ([place]) Comment on above: Performed By: #### 5 7021-8 #### [facility] [address] [place] [address] Basophils/100 WBC (Bld) 0.8 % Normal 0.0-1.5 [facility] ([place]) Comment on above: Performed By: #### 5 7021-8 #### [facility] [address] [place] [address] Eosinophils (Bld) [#/Vol] 0.0 10*3/uL Normal 0.00-0.33 [facility] ([place]) Comment on above: Performed By: #### 5 7021-8 #### [facility] [address] [place] [address] Eosinophils/100 WBC (Bld) 0.3 % Normal 0.0-3.0 [facility] ([place] Comment on above: Performed By: #### 5 7021-8 #### [facility] [address] [place] [address] Erythrocyte distribution width (RBC) [Ratio] 11.9 % Normal 10.9-14.3 [facility] ([place]) Comment on above: Performed By: #### 5 7021-8 #### [facility] [address] [place] [address] Hematocrit (Bld) [Volume fraction] 31.8 % Low 36.0-44.0 [facility] ([place]) Comment on above: Performed By: #### 5 7021-8 #### [facility] [address] [place] [address] Hemoglobin (Bld) [Mass/Vol] 10.8 g/dL Low 12.0-15.0 [facility] ([place]) Comment on above: Performed By: #### 5 7021-8 #### [facility] [address] [place] [address] Lymphocytes Auto (Unsp spec) [#/Vol] 1.9 10*3/uL Normal 1.10-4.80 [facility] ([place]) Comment on above: Performed By: #### 5 7021-8 #### [facility] [address] [place] [address] Lymphocytes/100 WBC (Bld) 13.2 % Low 24.0-44.0 [facility] ([place]) Comment on above: Performed By: #### 5 7021-8 #### [facility] [address] [place] [address] MCH (RBC) [Entitic mass] 29.1 pg Normal 28.0-34.0 [facility] ([place]) Comment on above: Performed By: #### 5 7021-8 #### [facility] [address] [place] [address] MCHC (RBC) [Mass/Vol] 34.1 g/dL Normal 33.0-37.0 [facility] ([place]) Comment on above: Performed By: #### 5 7021-8 #### [facility] [address] [place] [address] MCV (RBC) [Entitic vol] 85.2 fL Normal 80.0-100.0 [facility] ([place]) Comment on above: Performed By: #### 5 7021-8 #### [facility] [address] [place] [address] Monocytes (Bld) [#/Vol] 1.2 10*3/uL High 0.20-0.70 [facility] ([place]) Comment on above: Performed By: #### 5 7021-8 #### [facility] [address] [place] [address] Monocytes/100 WBC (Bld) 8.2 % Normal 3.4-9.0 [facility] ([place]) Comment on above: Performed By: #### 5 7021-8 #### [facility] [address] [place] [address] Neutrophils (Bld) [#/Vol] 11.2 10*3/uL High 1.83-8.70 [facility] ([place]) Comment on above: Performed By: #### 5 7021-8 #### [facility] [address] [place] [address] Neutrophils/100 WBC (Bld) 77.5 % High 40.0-74.0 [facility] ([place]) Comment on above: Performed By: #### 5 7021-8 #### [facility] [address] [place] [address] Platelet mean volume (Bld) [Entitic vol] 8.0 fL Normal 7.4-10.4 [facility] ([place]) Comment on above: Performed By: #### 5 7021-8 #### [address] [address] Platelets (Bld) [#/Vol] 350 10*3/uL Normal 150-450 [facility] ([place]) Comment on above: Performed By: #### 5 7021-8 #### [address] [address] RBC (Bld) [#/Vol] 3.73 10*6/uL Low 4.00-4.90 [facility] ([place]) Comment on above: Performed By: #### 5 7021-8 #### [facility] [address] [place] [address] WBC (Bld) [#/Vol] 14.4 10*3/uL High 4.5-11.0 [facility] ([place]) Comment on above: Performed By: #### 5 7021-8 #### [facility] [address] [place] [address] CBC panel Auto (Bld)on 04-24 Erythrocyte distribution width (RBC) [Ratio] 11.3 % Low 11.5-15.0 [facility] Comment on above: Order Comment: Speci men Type: BLOOD SPECIMEN Ordering Facility: [facility] Address: [address] [place] [address] Performed By: #### 5 8410-2 #### [facility] CLIA [id number] [address] [place] [address] [place] Hematocrit (Bld) [Volume fraction] 36.0 % Normal 36.0-46.0 [facility] Comment on above: Order Comment: Speci men Type: BLOOD SPECIMEN Ordering Facility: [facility] Address: [address] [place] [address] Performed By: #### 5 8410-2 #### [facility] CLIA [id number] [address] [place] [address] [place] Hemoglobin (Bld) [Mass/Vol] 12.2 g/dL Normal 11.5-15.5 [facility] Comment on above: Order Comment: Speci men Type: BLOOD SPECIMEN Ordering Facility: [facility] Address: [address] [place] [address] Performed By: #### 5 8410-2 #### [facility] CLIA [id number] [address] [place] [address] [place] MCH (RBC) [Entitic mass] 29.3 pg Normal 26.0-34.0 [facility] Comment on above: Order Comment: Speci men Type: BLOOD SPECIMEN Ordering Facility: [facility] Address: [address] [place], [place] [address] Performed By: #### 5 8410-2 #### [facility] CLIA [id number] [address] [place] [address] [place] MCHC (RBC) [Mass/Vol] 33.9 g/dL Normal 30.5-36.0 [facility] Comment on above: Order Comment: Speci men Type: BLOOD SPECIMEN Ordering Facility: [facility] Address: [address] [place] [address] Performed By: #### 5 8410-2 #### [facility] CLIA [id number] [address] [place] [address] [place] MCV (RBC) [Entitic vol] 86.3 fL Normal 80.0-100.0 [facility] Comment on above: Order Comment: Speci men Type: BLOOD SPECIMEN Ordering Facility: [facility] Address: [address] [place] [address] Performed By: #### 5 8410-2 #### [facility] CLIA [id number] [address] [place] [address] [place] Nucleated RBC (Bld) [#/Vol] 10*3/uL Normal <0.01 [facility] Comment on above: Order Comment: Speci men Type: BLOOD SPECIMEN Ordering Facility: [facility] Address: [address] [place] [address] Performed By: #### 5 8410-2 #### [facility] CLIA [id number] [address] [place] [address] [place] Platelet mean volume (Bld) [Entitic vol] 9.7 fL Normal 9.0-12.7 [facility] Comment on above: Order Comment: Speci men Type: BLOOD SPECIMEN Ordering Facility: [facility] Address: [address] [place] [address] Performed By: #### 5 8410-2 #### [facility] CLIA [id number] [address] [place] [address] [place] Platelets (Bld) [#/Vol] 391 10*3/uL Normal 150-400 [facility] Comment on above: Order Comment: Speci men Type: BLOOD SPECIMEN Ordering Facility: [facility] Address: [address] [place] [address] Performed By: #### 5 8410-2 #### [facility] CLIA [id number] [address] [place] [address] [facility] [place] RBC (Bld) [#/Vol] 4.17 10*6/uL Normal 3.90-5.20 [facility] Comment on above: Order Comment: Speci men Type: BLOOD SPECIMEN Ordering Facility: [facility] Address: [address] [place], [place] [address] Performed By: #### 5 8410-2 #### [facility] CLIA [id number] [address] [place], [place] [address] [facility] [place] WBC (Bld) [#/Vol] 13.20 10*3/uL High 3.70-11.[address] [facility] Comment on above: Order Comment: Speci men Type: BLOOD SPECIMEN Ordering Facility: [facility] Address: [address] [place], [place] [address] Performed By: #### 5 8410-2 #### [facility] CLIA [id number] [address] [place], [place] [address] [facility] [place] CONSULTon 04-24-2024 CONSULT HNO ID: [id number] Author: TIRSO RICHEY MD Service: Otolaryngology Author Type: Physician Type: Consults Filed: 04/24/2024 14:50 Note Text: 04/24/2024 This 19-year-old patient was transferred from [facility] for management of a right peritonsillar abscess. She complains of sore throat for the last 3 days following dental extraction procedures on the right side of her mouth. She does have a history of frequent tonsil stones but no frequent strep positive infections. She was evaluated by her local ENT in [place] who told her she was not a candidate for tonsillectomy due to the infrequency of her strep positive infections. She was given some oral antibiotics at [facility] without improvement. Her evaluation here shows that she is afebrile, white blood cell count 13,200. There is a CT scan that was transferred from [place] which shows asymmetric swelling of the right [...] of that extraction site. Tirso Richey MD [facility] CT soft tissue neck wo/w con on 04-24-2024 CT soft tissue neck wo/w con [facility] [address] [place] [address] CT Scan Report Signed Patient: LUIS BARAJAS MR#: [id number] : 2005 Acct:[id number] Age/Sex: 19 / F Admit Date: 04/23/24 Loc: ER Attending Dr: Ordering Physician: Natanael yHde MD Date of Service: 04/24/24 Procedure(s): CT soft tissue neck wo/w con Accession Number(s): [id number] cc: Natanael Hyde MD INDICATION: Right tonsillar [...] DD/ 8 Signed By: Ara Burton 04/24/24348 Microelectronics Assembler: DELGADO 04/24/24348 Normal [facility] ([place]) Comprehensive metabolic 2000 panelon 04-24-2024 Albumin [Mass/Vol] 4.0 g/dL Normal 3.2-5.0 [facility] Comment on above: Order Comment: Ryan spain Type: BLOOD SPECIMEN Ordering Facility: [facility] Address: [address] [place] [address] Performed By: #### 2 4323-8, 38159-0, 2777-1 #### [facility] CLIA [id number] [address] [place] [address] [place] ALP [Catalytic activity/Vol] 72 U/L Normal 45-117 [facility] Comment on above: Order Comment: Ryan spain Type: BLOOD SPECIMEN Ordering Facility: [facility] Address: [address] [place] [address] Performed By: #### 2 4323-8, 47114-3, 2777 #### [facility] CLIA [id number] [address] [place] [address] [place] ALT [Catalytic activity/Vol] 8 U/L Low 13-61 [facility] Comment on above: Order Comment: Ryan spain Type: BLOOD SPECIMEN Ordering Facility: [facility] Address: [address] [place] [address] Result Comment: Resu lts may be falsely depressed after the administration of Sulfasalazine and/or Sulfapyridine. Performed By: #### 2 4323-8, , 2776-08 #### [facility] CLIA [id number] [address] [place] [address] [place] Anion gap [Moles/Vol] 9 mmol/L Normal 5-16 [facility] Comment on above: Order Comment: Speci men Type: BLOOD SPECIMEN Ordering Facility: [facility] Address: [address] [place] [address] Performed By: #### 2 4323-8, , 2776-08 #### [facility] CLIA [id number] [address] [place], [place] [address] [place] AST [Catalytic activity/Vol] 19 U/L Normal 8-34 [facility] Comment on above: Order Comment: Speci men Type: BLOOD SPECIMEN Ordering Facility: [facility] Address: [address] [place] [address] Result Comment: Resu lts may be falsely depressed after the administration of Sulfasalazine and/or Sulfapyridine. Performed By: #### 2 4323-8, , 2776-08 #### [facility] CLIA [id number] [address] [place], [place] [address] [place] Bilirubin [Mass/Vol] 0.5 mg/dL Normal 0.2-1.[address] [facility] Comment on above: Order Comment: Speci men Type: BLOOD SPECIMEN Ordering Facility: [facility] Address: [address] [place] [address] Performed By: #### 2 4323-8, , 2776-08 #### [facility] CLIA [id number] [address] [place] [address] [place] Calcium [Mass/Vol] 10.3 mg/dL Normal 8.5-10.5 [facility] Comment on above: Order Comment: Speci men Type: BLOOD SPECIMEN Ordering Facility: [facility] Address: [address] [place] [address] Performed By: #### 2 4323-8, , 2776-08 #### [facility] CLIA [id number] [address] [place] [address] [place] Chloride [Moles/Vol] 108 mmol/L High 98-[address] [facility] Comment on above: Order Comment: Speci men Type: BLOOD SPECIMEN Ordering Facility: [facility] Address: [address] [place] [address] Performed By: #### 2 4323-8, 29161-8, 277- #### [facility] CLIA [id number] [address] [place] [address] [place] CO2 [Moles/Vol] 23 mmol/L Normal 21-32 [facility] Comment on above: Order Comment: Speci men Type: BLOOD SPECIMEN Ordering Facility: [facility] Address: [address] [place] [address] Performed By: #### 2 4323-8, 09556-2, 2776- #### [facility] CLIA [id number] [address] [place] [address] [place] Creatinine [Mass/Vol] 0.61 mg/dL Normal 0.51-0.95 [facility] Comment on above: Order Comment: Speci men Type: BLOOD SPECIMEN Ordering Facility: [facility] Address: [address] [place] [address] Result Comment: Ernestine ents receiving either N-Acetylcysteine (NAC) or Metamizole prior to venipuncture, may have falsely depressed results. Performed By: #### 2 4323-8, 89002-1, 2776-08 #### [facility] CLIA [id number] [address] [place] [address] [place] Creatinine and Glomerular filtration rate.predicted panel (S/P/Bld) 132 mL/min/1.73m??? Normal >=60 [facility] Comment on above: Order Comment: Speci men Type: BLOOD SPECIMEN Ordering Facility: [facility] Address: [address] [place] [address] Result Comment: Meeta mated Glomerular Filtration Rate [...] actual GFR. Performed By: #### 2 4323-8, , 2776-08 #### [facility] CLIA [id number] [address] [place], [place] [address] [place] Glucose [Mass/Vol] 120 mg/dL High 70-100 [facility] Comment on above: Order Comment: Ryan spain Type: BLOOD SPECIMEN Ordering Facility: [facility] Address: [address] [place], [place] [address] Result Comment: The [place] Diabetes Association (ADA) provides guidance for cutoff [...] Standards of Medical Care in Diabetes 2016, [place] [employer]. Diabetes Care. 2016.39(Suppl 1). Results may be falsely elevated after the administration of Sulfapyridine. Results may be falsely depressed after the administration of Sulfasalazine. Performed By: #### 2 4323-8, , 2776-08 #### [facility] CLIA [id number] [address] [place], [place] [address] [place] Potassium [Moles/Vol] 4.1 mmol/L Normal 3.5-5.1 [facility] Comment on above: Order Comment: Ryan sapin Type: BLOOD SPECIMEN Ordering Facility: [facility] Address: [address] [place] [address] Performed By: #### 2 4323-8, , 2776-08 #### [facility] CLIA [id number] [address] [place], [place] [address] [place] Protein [Mass/Vol] 8.1 g/dL Normal 6.0-8.5 [facility] Comment on above: Order Comment: Speci men Type: BLOOD SPECIMEN Ordering Facility: [facility] Address: [address] [place] [address] Performed By: #### 2 4323-8, 40204-4, 2777-1 #### [facility] CLIA [id number] [address] [place], [place] [address] [place] Sodium [Moles/Vol] 140 mmol/L Normal 136-145 [facility] Comment on above: Order Comment: Speci men Type: BLOOD SPECIMEN Ordering Facility: [facility] Address: [address] [place] [address] Performed By: #### 2 4323-8, 52844-8, 27702-21 #### [facility] CLIA [id number] [address] [place] [address] [place] Urea nitrogen [Mass/Vol] 15 mg/dL Normal 7-26 [facility] Comment on above: Order Comment: Speci men Type: BLOOD SPECIMEN Ordering Facility: [facility] Address: [address] [place] [address] Performed By: #### 2 4323-8, , 2776-08 #### [facility] CLIA [id number] [address] [place], [place] [address] [place] HISTORY PHYSICALon HISTORY PHYSICAL HNO ID: [id number] Author: GUSTAVO CAHN MD Service: Hospital Medicine Author Type: Physician Type: H&P Filed: 04/24/2024 10:36 Note Text: HISTORY AND PHYSICAL EXAMINATION SERVICE DATE: 04/24/2024 SERVICE TIME: 9:46 PM PRIMARY CARE PHYSICIAN: Mitzy Fung MD, MD CHIEF COMPLAINT: Sore throat/dysphagia HPI: This is a 19 year old female with a past medical history of ADHD, PCOS, asthma, URIEL. Patient was transferred from [facility] today for concerns of 2 cm right peritonsillar abscess. Of note patient recently had a dental extraction at [facility] approximately 1 week ago due to concerns for infection was given p.o. cefdinir and Keflex however patient started having dysphagia associated with sore throat and went to [facility] ED. At [facility] ED patient was given IV clindamycin and IV Decadron in the ED. Due to [facility] not having ENT onsite patient was transferred here at [facility] for further ENT management as well as [...] Routine labs (more content not included)... Normal [facility] Magnesium [facility]-ncon 04-24 Magnesium [Mass/Vol] 2.2 mg/dL Normal 1.6-2.[address] [facility] Comment on above: Order Comment: Ryan spain Type: BLOOD SPECIMEN Ordering Facility: [facility] Address: [address] [place] [address] Performed By: #### 2 4323-8, 83810-9, 2777-1 #### [facility] CLIA [id number] [address] [place] [address] [place] [facility] Phosphate SerPl-mCncon 04-24 Phosphate [Mass/Vol] 3.8 mg/dL Normal 2.5-4.[address] [facility] Comment on above: Order Comment: Ryan spain Type: BLOOD SPECIMEN Ordering Facility: [facility] Address: [address] [place] [address] Result Comment: Elev ated m-protein (paraprotein) levels in the serum may be exhibited in patients with monoclonal gammopathies, causing falsely elevated inorganic phosphorus results. Performed By: #### 2 4323-8, 00176-5, 2777-1 #### [facility] CLIA [id number] [address] [place], [place] [address] [place] Progress Noteon 04-20-2024 Produce Runner Authentication Interface Message Text Patient ID: Luis [...] cm, weight 57.6 kg, SpO2 100%. Normal [facility] 12 Lead EKGon 2024 12 Lead EKG [facility] Cardi[facility] Services [address] [place] [address] 12 Lead EKG 04/17/24 0305 MR#: [id number] Acct: [id number] Name: LUIS BARAJAS Rep #: [id number] : 2005 19 From: Andrés Faith MD [...] tracing Baseline artifact Confirmed by Andrés Faith ([id number]), staff editor IVONNE MAHAJAN ([id number]) on 04/18/2024 10:56:34 AM Referred By: LINNEA Confirmed By:Andrés Faith 04/18/24 1056 Date Andrés Faith MD CC: Dr. Mitzy Fung MD; Teodoro Garcia DO Signed Normal [facility] Basic Metabolic Profile (BMP )on 2024 BUN/CRE 12.7 RATIO Normal 10-20 [facility] Comment on above: Order Comment: 'TROP ' Serial specimen #1, #2 or #3: 1 Performed By: #### L 300.8000, L100.0100, L500.2500, L501.5200, L501.4020 #### [facility] [address] [place], [address] CA,Total 9.4 mg/dL Normal 8.5-10.1 [facility] Comment on above: Order Comment: 'TROP ' Serial specimen #1, #2 or #3: 1 Performed By: #### L 300.8000, L100.0100, L500.2500, L501.5200, L501.4020 #### [facility] [address] [place], [address] Chloride [Moles/Vol] 106 mmol/L Normal 98-107 [facility] Comment on above: Order Comment: 'TROP ' Serial specimen #1, #2 or #3: 1 Performed By: #### L 300.8000, L100.0100, L500.2500, L501.5200, L501.4020 #### [facility] [address] [place], [address] CO2 [Moles/Vol] 25.0 mmol/L Normal 21.0-32.0 [facility] Comment on above: Order Comment: 'TROP ' Serial specimen #1, #2 or #3: 1 Performed By: #### L 300.8000, L100.0100, L500.2500, L501.5200, L501.4020 #### [facility] [address] [place], [address] Creatinine [Mass/Vol] 0.87 mg/dL Normal 0.55-1.02 [facility] Comment on above: Order Comment: 'TROP ' Serial specimen #1, #2 or #3: 1 Result Comment: The validity of the calculated GFR GFRAA in patients over 70 years has not been determined. Clinical correlation is essential. Performed By: #### L 300.8000, L100.0100, L500.2500, L501.5200, L501.4020 #### [facility] [address] [place], [address] ECRCL 93.59 ml/min Normal [facility] Comment on above: Order Comment: 'TROP ' Serial specimen #1, #2 or #3: 1 Performed By: #### L 300.8000, L100.0100, L500.2500, L501.5200, L501.4020 #### [facility] [address] [place], [address] EST GFR - AA 108 mL/min Normal >60 [facility] Comment on above: Order Comment: 'TROP ' Serial specimen #1, #2 or #3: 1 Result Comment: Afri can [place] GFR Calc Performed By: #### L 300.8000, L100.0100, L500.2500, L501.5200, L501.4020 #### [facility] [address] [place], [address] GAP 8 Normal 5-15 [facility] Comment on above: Order Comment: 'TROP ' Serial specimen #1, #2 or #3: 1 Performed By: #### L 300.8000, L100.0100, L500.2500, L501.5200, L501.4020 #### [facility] [address] [place], [address] GFR/1.73 sq M.predicted among non-blacks MDRD (S/P/Bld) [Vol rate/Area] 90 mL/min/{1.73_m2} Normal >60 [facility] Comment on above: Order Comment: 'TROP ' Serial specimen #1, #2 or #3: 1 Result Comment: Non- GFR Calc Performed By: #### L 300.8000, L100.0100, L500.2500, L501.5200, L501.4020 #### [facility] [address] [place], [address] Glucose [Mass/Vol] 73 mg/dL Low 74-106 [facility] Comment on above: Order Comment: 'TROP ' Serial specimen #1, #2 or #3: 1 Performed By: #### L 300.8000, L100.0100, L500.2500, L501.5200, L501.4020 #### [facility] [address] [place], [address] Potassium [Moles/Vol] 3.2 mmol/L Low 3.5-5.1 [facility] Comment on above: Order Comment: 'TROP ' Serial specimen #1, #2 or #3: 1 Performed By: #### L 300.8000, L100.0100, L500.2500, L501.5200, L501.4020 #### [facility] [address] [place], [address] Sodium [Moles/Vol] 139 mmol/L Normal 136-145 [facility] Comment on above: Order Comment: 'TROP ' Serial specimen #1, #2 or #3: 1 Performed By: #### L 300.8000, L100.0100, L500.2500, L501.5200, L501.4020 #### [facility] [address] [place], [address] Urea nitrogen [Mass/Vol] 11 mg/dL Normal 7-18 [facility] Comment on above: Order Comment: 'TROP ' Serial specimen #1, #2 or #3: 1 Performed By: #### L 300.8000, L100.0100, L500.2500, L501.5200, L501.4020 #### [facility] [address] [place], [address] CBC W/Diff, Automatedon 03-25-2023 Absolute Lymph 3.76 X10 3/uL Normal 0.83-4.51 [facility] Comment on above: Performed By: #### L 300.8000, L100.0100, L500.2500, L501.5200, L501.4020 #### [facility] [address] [place], [address] Absolute Neut 4.9 X10 3/uL Normal 2.0-7.7 [facility] Comment on above: Performed By: #### L 300.8000, L100.0100, L500.2500, L501.5200, L501.4020 #### [facility] [address] [place], [address] Basophils/100 WBC (Bld) 0.5 % Normal 0-1 [facility] Comment on above: Performed By: #### L 300.8000, L100.0100, L500.2500, L501.5200, L501.4020 #### [facility] [address] [place], [address] Eosinophils/100 WBC (Bld) 1.4 % Normal 0-5 [facility] Comment on above: Performed By: #### L 300.8000, L100.0100, L500.2500, L501.5200, L501.4020 #### [facility] [address] [place], [address] Erythrocyte distribution width (RBC) [Ratio] 11.9 % Normal 11.6-14.6 [facility] Comment on above: Performed By: #### L 300.8000, L100.0100, L500.2500, L501.5200, L501.4020 #### [facility] [address] [place], [address] Hematocrit (Bld) [Volume fraction] 36.0 % Low 37-47 [facility] Comment on above: Performed By: #### L 300.8000, L100.0100, L500.2500, L501.5200, L501.4020 #### [facility] [address] [place], [address] Hemoglobin (Bld) [Mass/Vol] 11.6 g/dL Low 12.0-15.0 [facility] Comment on above: Performed By: #### L 300.8000, L100.0100, L500.2500, L501.5200, L501.4020 #### [facility] [address] [place], [address] IG% 0.300 Normal 0.0-0.9 [facility] Comment on above: Result Comment: IG% - Immature Granulocytes (promyelocytes, myelocytes and metamyelocytes) > 1% indicates that a LEFT SHIFT is Present. Performed By: #### L 300.8000, L100.0100, L500.2500, L501.5200, L501.4020 #### [facility] [address] [place], [address] Lymphocytes/100 WBC (Bld) 38.3 % Normal 19-41 [facility] Comment on above: Performed By: #### L 300.8000, L100.0100, L500.2500, L501.5200, L501.4020 #### [facility] [address] [place], [address] MCH (RBC) [Entitic mass] 28.3 pg Normal 27.0-32.0 [facility] Comment on above: Performed By: #### L 300.8000, L100.0100, L500.2500, L501.5200, L501.4020 #### [facility] [address] [place], [address] MCHC (RBC) [Mass/Vol] 32.2 g/dL Normal 32-36 [facility] Comment on above: Performed By: #### L 300.8000, L100.0100, L500.2500, L501.5200, L501.4020 #### [facility] [address] [place], [address] MCV (RBC) [Entitic vol] 87.8 fL Normal 81-99 [facility] Comment on above: Performed By: #### L 300.8000, L100.0100, L500.2500, L501.5200, L501.4020 #### [facility] [address] [place], [address] Monocytes/100 WBC (Bld) 9.3 % Normal 0-10 [facility] Comment on above: Performed By: #### L 300.8000, L100.0100, L500.2500, L501.5200, L501.4020 #### [facility] [address] [place], [address] Neutrophils/100 WBC (Bld) 50.2 % Normal 47-70 [facility] Comment on above: Performed By: #### L 300.8000, L100.0100, L500.2500, L501.5200, L501.4020 #### [facility] [address] [place], [address] Nucleated RBC (Bld) [#/Vol] 0 10*3/uL Normal 0-5 [facility] Comment on above: Performed By: #### L 300.8000, L100.0100, L500.2500, L501.5200, L501.4020 #### [facility] [address] [place], [address] Platelet mean volume (Bld) [Entitic vol] 10.3 fL Normal 6.2-12.0 [facility] Comment on above: Performed By: #### L 300.8000, L100.0100, L500.2500, L501.5200, L501.4020 #### [facility] [address] [place], [address] Platelets (Bld) [#/Vol] 305 10*3/uL Normal 150-450 [facility] Comment on above: Performed By: #### L 300.8000, L100.0100, L500.2500, L501.5200, L501.4020 #### [facility] [address] [place], [address] RBC (Bld) [#/Vol] 4.10 10*6/uL Low 4.2-5.4 [facility] Comment on above: Performed By: #### L 300.8000, L100.0100, L500.2500, L501.5200, L501.4020 #### [facility] [address] [place], [address] RDW SD 38.3 fl Normal 35.1-43.9 [facility] Comment on above: Performed By: #### L 300.8000, L100.0100, L500.2500, L501.5200, L501.4020 #### [facility] [address] [place], [address] WBC (Bld) [#/Vol] 9.8 10*3/uL Normal 4.4-11.0 [facility] Comment on above: Performed By: #### L 300.8000, L100.0100, L500.2500, L501.5200, L501.4020 #### [facility] [address] [place], [address] CTA Chest W/WO Contraston CTA Chest W/WO Contrast [facility] Imaging Services [address] [place] [address] CTA Chest W/WO Contrast MR#: [id number] Acct: [id number] Name: LUIS BARAJAS Rep #: [id number] : 2005 F 19 From: Sal Nobles MD PCP: Dr. Mitzy Fung MD Status: REG ER Study: CTA Chest W/WO Contrast Date of Exam: 04/17/24 Exam# [id number] Ordering Dr: Teodoro Garcia DO [id number] STUDY: CTA CHEST REASON FOR EXAM: [...] Dr. Mitzy Fung MD; Teodoro Garcia DO Microelectronics Assembler: Signed Normal [facility] Chest PA and Lateralon 04-17 Chest PA and Lateral [facility] Imaging Services [address] [place] [address] Chest PA and Lateral MR#: [id number] Acct: [id number] Name: LUIS BARAJAS Rep #: [id number] : 2005 F 19 From: aSl Nobles MD PCP: Dr. Mitzy Fung MD Status: REG ER Study: Chest PA and Lateral Date of Exam: 04/17/24 Exam# [id number] Ordering Dr: Teodoro Garcia DO -[id number] INDICATION: chest pain EXAMINATION/TECHNIQ UE: X-RAY [...] Dr. Mitzy Fung MD; Teodoro Garcia DO Microelectronics Assembler: Signed Normal [facility] D-Dimer Quantitative (DVT/PE )on 2024 D-DIMER QUANT 0.55 FEU/ug/m Invalid Interpretation Code 0.27-0.49 [facility] Comment on above: Result Comment: D-Di vicente ELEVATED (>0.49): Additional studies and clinical assessments are indicated to conclude diagnosis of: Deep Vein Thrombosis (DVT) or Pulmonary Embolism (PE) CRITICAL VALUE VERIFIED. CALLED TO LSPARR 04/17/24 0350 Ivonne Artis. RESULTS READ BACK BY SAME. Performed By: #### L 300.8000, L100.0100, L500.2500, L501.5200, L501.4020 #### [facility] [address] [facility] [place], [address] Emergency Department Summary on 2024 Emergency Department Summary [facility] Medical Records Department [address] [place] [address] Emergency Department Summary 04/17/24 MR#: [id number] Acct: [id number] Name: LUIS BARAJAS Rep #: [id number] : 2005 19 From: Teodoro Garcia DO [...] persistent pain she comes in for evaluation [facility] Medical History Wears glasses Bipolar disorder [...] to auscul (more content not included)... Normal [facility] L501.4020on 2024 TROPONIN-I HS < 3 Low 3.0-54.0 [facility] Comment on above: Order Comment: 'TROP ' Serial specimen #1, #2 or #3: 1 Result Comment: Plea se Note: New Test Units and Gender Specific Reference Ranges. For more information see Policy Stat Procedure [place] High Sensitivity Troponin (TNIH) and attachments. Performed By: #### L 300.8000, L100.0100, L500.2500, L501.5200, L501.4020 #### [facility] [address] [place], [place], [address] Magnesiumon 2024 Magnesium [Mass/Vol] 2.1 mg/dL Normal 1.6-2.6 [facility] Comment on above: Order Comment: 'TROP ' Serial specimen #1, #2 or #3: 1 Performed By: #### L 300.8000, L100.0100, L500.2500, L501.5200, L501.4020 #### [facility] [address] [place], [place], [address] Urinalysis, Completeon 04-17 EPI,SQUAMOUS 0-5 SEEN Normal 5-10 [facility] Comment on above: Order Comment: CLEAN CATCH Performed By: #### L 400.0001 ####[facility] [id number] [place], [address] WBC 0-5 SEEN Normal 0-5 [facility] Comment on above: Order Comment: CLEAN CATCH Performed By: #### L 400.0001 ####[facility] [address] [place], [address] BACTERIA 0 SEEN Normal None Seen [facility] Comment on above: Order Comment: CLEAN CATCH Performed By: #### L 400.0001 ####[facility] [address] [place], [address] Mucus Ql (Urine sed) 0 SEEN Normal [facility] Comment on above: Order Comment: CLEAN CATCH Performed By: #### L 400.0001 ####[facility] [address] [place], [address] RBC 0 SEEN Normal 0-5 [facility] Comment on above: Order Comment: CLEAN CATCH Performed By: #### L 400.0001 ####[facility] [address] [place], [address] Emergency Department Summary on 04-12-2024 Emergency Department Summary [facility] Medical Records Department [address] [place] [address] Emergency Department Summary 04/12/24 MR#: [id number] Acct: [id number] Name: LUIS BARAJAS Rep #: [id number] : 2005 18 From: Javier Isabel DO PCP: Dr. Mitzy Fung MD Status:DEP ER Location: ED HPI History of Present Illness Chief Complaint: Dental Informant: patient Onset/Context/Timin g Onset: Yesterday Context: Gradual Onset Timing: Continuous [...] denies any difficulty breathing or difficulty swallowing. [facility] Medical History Wears glasses Bipolar disorder [...] infected d (more content not included)... Normal [facility] CNOVon 01-26-2024 CNOV Office Visit ([facility]) ---- LUIS BARAJAS ([id number]) 5 F Date Time Provider Department 01/26/24 4:30 PM TRUPTI MARTÍNEZ [facility] During your visit today, we recorded the following information about you: Temperature Pulse Respiration Blood pressure 97.9 degrees 80/minute 16/minute 102/60 Weight 60 kg Martínez Lyles APRN.LENS ASSORTER 01/26/2024 4:37 PM Signed This note was created using [employer]. Subjective Luis Barajas is a 18 year [...] Tylenol as needed for pain. Martínez Lyles APRN.LENS ASSORTER Allergies As of Date: 01/26/2024 (No Known Allergies) Date Reviewed: 01/26/2024 Reviewed by: Martínez Lyles APRN.LENS ASSORTER - Fully Assessed Reason for Visit: Ear [...] Status:Closed by MARTÍNEZ LYLES on 01/26/24 Normal [facility] Bacteria Ur Culton 4 Bacteria identified Cx [...] , Intermediate >32 , Resistant >64 Abnormal [facility] Comment on above: Performed By: #### 6 30-4 ####[facility] LABCLIA [id number] TOSINRicki [facility] [id number] [id number] [facility] CNOVon 12-29-2023 CNOV Office Visit ([facility]) ---- LUIS BARAJAS ([id number]) 5 F Date Time Provider Department 12/29/23 4:45 PM JASMIN ENRIQUEZ WS During your visit today, we recorded the following information about you: Temperature Pulse Respiration Blood pressure 97.3 degrees 94/minute 18/minute 129/79 Weight Last Period 58.6 kg 12/24/23 Jasmin Enriquez APRN.LENS ASSORTER 12/29/2023 5:06 PM Signed ASSESSMENT/PLAN: 1. Burning [...] Discussed expected course of illness Jasmin Enriquez APRN.[facility] PATIENT INFO BLADDER INFECTION OVERVIEW Bladder infections [...] prescription medicatio (more content not included)... Normal [facility] UA DIP, URINE (POC)on 2023 BILIRUBIN UA (POCT) Negative Negative [facility] CLARITY UA (POCT) Slightly Cloudy Cl [facility] COLOR UA (POCT) Yellow [facility] GLUCOSE UA (POCT) Negative Negative mg/dL [facility] Hemoglobin Ql (U) Large Abnormal Negative [facility] Interpretation and review of laboratory results Abnormal [facility] KETONE UA (POCT) Negative Negative mg/dL [facility] LEUKOCYTES UA (POCT) Moderate Abnormal Negative [facility] NITRITE UA (POCT) Negative Negative [facility] PH UA (POCT) 7.0 4.5 - 8.0 [facility] Protein Ql (U) 30 mg/dL Abnormal Negative [facility] SPECIFIC GRAVITY UA (POCT) 1.020 1.005 - 1.030 [facility] UROBILINOGEN UA (POCT) 0.2 Normal E.U./d L [facility] Location:[facility], [address] [place] [address], [place], [place], [address] [place] [address] POINT OF CARE [facility] Laboratory - Chemistry and C hemistry - challengeOrdered By: Leny Ruano on 12-24-2023 HCG ( test) Ql (U) Negative [facility] Comment on above: Very dilute urine sp ecimens, as indicated by a low specificgravity, may not contain passenger representative levels of hCG. If is still suspected, a first morning urinespecimen should be collected 48 hours later and tested. Absolute lymphocyte countOrd ered By: Alexissultana Farfan on 11-14-2023 Lymphocytes Auto (Unsp spec) [#/Vol] 2.23 10*3/uL 0.83-4.51 [facility] Automated lymphocyte count a s percentage of total leukocytesOrdered By: [facility] on 11-14-2023 Lymphocytes/100 WBC Auto (Unsp spec) 27.1 % 25-45 [facility] Basophil percentageOrdered B y: Alexis Farfan on 11-14-2023 Basophils/100 WBC (Bld) 0.7 % 0-1 [facility] Chloride [Moles/Vol] 110 mmol/L 98-107 [facility] Eosinophils/100 WBC (Bld) 1.7 % 0-3 [facility] Glucose [Mass/Vol] 82 mg/dL 74-106 [facility] Hemoglobin (Bld) [Mass/Vol] 12.3 g/dL 12.0-15.0 [facility] Monocytes/100 WBC (Bld) 5.1 % 3-6 [facility] Neutrophils (Bld) [#/Vol] 5.4 10*3/uL 2.0-7.7 [facility] Neutrophils/100 WBC (Bld) 65.2 % 34-64 [facility] Potassium [Moles/Vol] 3.9 mmol/L 3.5-5.1 [facility] Sodium [Moles/Vol] 140 mmol/L 136-145 [facility] WBC (Bld) [#/Vol] 8.2 10*3/uL 4.5-13.0 [facility] Basophil percentageOrdered B y: Lexie Heredia on 11-14-2023 Basophil percentage 25-50 SEEN /hpf 0-5 [facility] Bilirubin Test strip Ql (U)O rdered By: Lexie Heredia on 11-14-2023 Bilirubin Ql (U) Negative Negative [facility] CNOVon 11-14-2023 CNOV Office Visit (UCWSTR) ---- LUIS BARAJAS ([id number]) 5 F Date Time Provider Department 11/14/23 12:15 PM [facility] During your visit today, we recorded the following information about you: Temperature Pulse Respiration Blood pressure 97.5 degrees 74/minute 21/minute 120/62 Weight 60.9 kg Loni Escobar APRN.LENS ASSORTER 11/14/2023 12:51 PM Signed Complaints of severe right flank pain. Patient says she has passed 2 hard [place] objects through her urethra. Patient says she [...] Diagnosis:Flank pain [R10.9] Order(s):UA DIP, URINE (POC) [[id number]] Order #: [id number]. #:[id number] Prescriptions as of 11/14/2023 - cabergoline (DOSTINEX) [...] Status:Closed by LONI ESCOBAR on 11/14/23 Normal [facility] Culture, urineOrdered By: Daryl Farfan on 11-14-2023 Bacteria identified Cx Nom (U) Presumptive E. coli [facility] Determination of erythrocyte mean corpuscular volume (MCV)Ordered By: Alexis Farfan on 11-14-2023 MCV (RBC) [Entitic vol] 87.9 fL 78-96 [facility] Erythrocyte distribution wid th ratioOrdered By: Alexis Farfan on 11-14-2023 Erythrocyte distribution width (RBC) [Ratio] 12.0 % 11.6-14.6 [facility] Erythrocyte distribution wid th standard deviationOrdered By: Alexissultana Farfan on 11-14-2023 Erythrocyte distribution width (RBC) [Entitic vol] 39.1 fL 35.1-43.9 [facility] Hematocrit Auto (Bld) [Volum e fraction]Ordered By: Alexis Farfan on 11-14-2023 Hematocrit (Bld) [Volume fraction] 38.6 % 37-46 [facility] Immature granulocytes/100 WB C Auto (Bld)Ordered By: Alexis Farfan on 11-14-2023 Immature granulocytes/100 WBC (Bld) 0.200 % 0.0-0.9 [facility] Comment on above: IG% - Immature Granu locytes (promyelocytes, myelocytes and metamyelocytes) > 1% indicates that a LEFT SHIFT is Present. Ketones Test strip Ql (U)Ord ered By: Lexie Heredia on 11-14-2023 Ketones Ql (U) 5 mg/dl Negative [facility] - Chemistry and C hemistry - challengeOrdered By: Alexis Farfan on 11-14-2023 CO2 [Moles/Vol] 26.0 mmol/L 21.0-32.0 [facility] Urea nitrogen/Creatinine [Mass ratio] 15.0 mg/mg 10-20 [facility] - Hematology and Cell countsOrdered By: Alexis Farfan on 11-14-2023 MCH (RBC) [Entitic mass] 28.0 pg 25.0-35.0 [facility] MCHC (RBC) [Mass/Vol] 31.9 g/dL 32-36 [facility] Nucleated RBC/100 WBC (Bld) [Ratio] 0 % 0-5 [facility] Platelet mean volume (Bld) [Entitic vol] 9.8 fL 6.2-12.0 [facility] Platelets (Bld) [#/Vol] 298 10*3/uL 150-450 [facility] Mucus LM Ql (Urine sed)Order ed By: Lexie Heredia on 11-14-2023 Mucus Ql (Urine sed) 0 SEEN /hpf [facility] Nitrite Test strip Ql (U)Ord ered By: Lexie Heredia on 11-14-2023 Nitrite Ql (U) Positive Negative [facility] No Panel InformationOrdered By: Alexis Farfan on 11-14-2023 Estimated Creatinine Clearance Calc 102.62 ml/min [facility] Estimated GFR (MDRD) Amer 120 mL/min >60 [facility] Comment on above: GFR Calc Estimated GFR (MDRD) Non-Af Amer 99 mL/min >60 [facility] Comment on above: Non- GFR Calc No Panel InformationOrdered By: Lexie Heredia on 11-14-2023 Urine RBC 0-5 SEEN /hpf 0-5 [facility] Protein Test strip Ql (U)Ord ered By: Lexie Heredia on 11-14-2023 Protein Ql (U) 30 mg/dl Negative [facility] RBC Auto (Bld) [#/Vol]Ordere d By: Alexis Farfan on 11-14-2023 RBC (Bld) [#/Vol] 4.39 10*6/uL 4.1-4.8 [facility] Serum or plasma calcium vel urement (mass/volume)Ordered By: Alexis Farfan on 11-14-2023 Calcium [Mass/Vol] 8.8 mg/dL 8.5-10.1 [facility] Serum or plasma choriogonado tropin detectionOrdered By: Alexis Farfan on 11-14-2023 HCG ( test) Ql Negative [facility] Serum or plasma creatinine m easurement (mass/volume)Ordered By: Alexis Farfan on 11-14-2023 Creatinine [Mass/Vol] 0.80 mg/dL 0.55-1.02 [facility] Comment on above: The validity of the calculated GFR & GFRAA in patients over 70 years has not been determined. Clinical correlation is essential. Serum or plasma urea nitroge n measurement (mass/volume)Ordered By: Alexis Farfan on 11-14-2023 Urea nitrogen [Mass/Vol] 12 mg/dL 7-18 [facility] Squamous epithelial cells de tection in urine sediment by light microscopyOrdered By: Lexie Heredia on 11-14-2023 Epithelial cells.squamous LM Ql (Urine sed) 0-5 SEEN /hpf 5-10 [facility] Thin prep Papanicolaou smear with manual screeningOrdered By: Alexis Farfan on 11-14-2023 Thin prep Papanicolaou smear with manual screening 4 5-15 [facility] UA DIP, URINE (POC)on 2023 BILIRUBIN UA (POCT) Negative Negative [facility] CLARITY UA (POCT) Slightly Cloudy Cl [facility] COLOR UA (POCT) Yellow [facility] GLUCOSE UA (POCT) Negative Negative mg/dL [facility] Hemoglobin Ql (U) Trace-intact Abnormal Negative [facility] KETONE UA (POCT) Trace Negative mg/dL [facility] LEUKOCYTES UA (POCT) Small Abnormal Negative [facility] NITRITE UA (POCT) Positive Abnormal Negative [facility] PH UA (POCT) 6.0 4.5 - 8.0 [facility] Protein Ql (U) 30 mg/dL Abnormal Negative mg/dL [facility] SPECIFIC GRAVITY UA (POCT) 1.025 1.005 - 1.030 [facility] UROBILINOGEN UA (POCT) 1.0 E.U./dL Normal E.U./ dL [facility] Urine blood detectionOrdered By: Lexie Heredia on 11-14-2023 RBC Ql (U) 25 /ul Negative [facility] Urine clarityOrdered By: Alexa Heredia on 11-14-2023 Clarity (U) Sl. Cloudy Clear [facility] Urine color determinationOrd ered By: Lexie Heredia on 11-14-2023 Color (U) Yellow Yellow [facility] Urine glucose detectionOrder ed By: Lexie Heredia on 11-14-2023 Glucose Ql (U) Normal mg/dl Normal [facility] Urine leukocyte esterase det ection by dipstickOrdered By: Lexie Heredia on 11-14-2023 Leukocyte esterase Test strip Ql (U) 500 /ul Negative [facility] Urine pHOrdered By: Lexie watts on 11-14-2023 pH (U) 6.5 [pH] 5.0 - 8.0 [facility] Urine sediment bacteria coun t by microscopy (number/high power field)Ordered By: Lexie Heredia on 11-14-2023 Bacteria LM.HPF (Urine sed) [#/Area] 2 /[HPF] None Seen [facility] Urine specific gravity measu rementOrdered By: Lexie Heredia on 11-14-2023 Specific gravity (U) [Rel density] 1.015 1.002-1.030 [facility] Urine urobilinogen measureme ntOrdered By: Lexie Heredia on 11-14-2023 Urobilinogen Ql (U) 1 mg/dl Normal [facility] Tele[facility] ([facility]) ---- LUIS BARAJAS ([id number]) 5 F Date Time Provider Department 10/31/23 MOE SIMONS [facility] During your visit today, we recorded the following information about you: Moe Simons MD 10/31/2023 1:43 PM Signed Vaginal swab was positive for yeast. Diflucan prescribed at the visit should help with this. Urine culture is pending; continue nitrofurantoin. Stefany Olivo MA 10/31/2023 1:58 PM Signed left message with mom to return call. MAURO Romero M Robin RN 11/02/2023 2:15 PM Signed Pt returned [...] Status:Closed by Ariane DAVIS on 11/02/23 Normal [facility] BACTERIAL VAGINOSIS NAATon 0 10-30-2023 Lactobacillus crispatus+gasseri+jense javier + Gardnerella vaginalis + Atopobium vaginae rRNA JAIRON+probe Ql (Vag fld) Negative Normal Negative for bacterial vaginosis [facility] Comment on above: Order Comment: Speci men Type: SWABOrdering Facility: [facility] Address: [address] [id number] Performed By: #### B CHAR CABRERATMarcella ####[facility] LABCLIA [id number] [facility]OSPITALRicki AVENUEDESK [id number] [id number] [place] Bacteria Ur Culton 4 [...] , Intermediate >32 , Resistant >64 Abnormal [facility] Comment on above: Performed By: #### 6 30-4 ####[facility] LABCLIA [id number] [place] [address] [place] PRINCE/TRICHOMONAS NAATon 0 10-30-2023 C. glabrata RNA JAIRON+probe Ql (Vag fld) Negative Normal Negative for Prince glabrata [facility] Comment on above: Order Comment: Speci men Type: SWABOrdering Facility: [facility] Address: [address] [place] [address] Performed By: #### B VAMP, CVTV ####[facility] LABCLIA [id number] [place] [address] [place] Prince sp DNA JAIRON+probe Ql (Vag fld) Positive Abnormal Negative for Prince species [facility] Comment on above: Order Comment: Speci men Type: SWABOrdering Facility: [facility] Address: [address] [place] [address] Performed By: #### B VAMP, CVTV ####[facility] LABCLIA [id number] [place] [address] [place] T. vaginalis DNA JAIRON+probe Ql (Unsp spec) Negative Normal Negative for Trichomonas vaginalis by amplification [facility] Comment on above: Order Comment: Speci men Type: SWABOrdering Facility: [facility] Address: [address] [place] [address] Performed By: #### B VAMP, CVTV ####[facility] RAYRAY [id number] [place] [id number] [place] CNOVon 10-30-2023 CNOV Office Visit (UCWSTR) ---- LUIS BARAJAS ([id number]) 5 F Date Time Provider Department 10/30/23 4:15 PM LILLIAN SANCHEZ [facility] During your visit today, we recorded the following information about you: Temperature Pulse Respiration Blood pressure 97.8 degrees 102/minute 18/minute 114/74 Weight Last Period 58.8 kg 10/19/23 Lillian Sanchez APRN.LENS ASSORTER 10/30/2023 4:18 PM Signed This note was created using NoteWriter. Subjective Luis Barajas is a 18 year [...] history is provided by the patient. No language asst was used. UTI This is a new [...] No friction (more content not included)... Normal [facility] UA DIP, URINE (POC)on 2023 BILIRUBIN UA (POCT) Negative Negative [facility] CLARITY UA (POCT) Clear [facility] COLOR UA (POCT) Dark yellow [facility] GLUCOSE UA (POCT) Negative Negative mg/dL [facility] Hemoglobin Ql (U) Moderate Abnormal Negative [facility] KETONE UA (POCT) Negative Negative mg/dL [facility] LEUKOCYTES UA (POCT) Trace Abnormal Negative [facility] NITRITE UA (POCT) Negative Negative [facility] PH UA (POCT) 5.5 4.5 - 8.0 [facility] Protein Ql (U) 100 mg/dL Abnormal Negative mg/dL [facility] SPECIFIC GRAVITY UA (POCT) >=1.030 1.005 - 1.030 [facility] UROBILINOGEN UA (POCT) 0.2 E.U./dL Normal E.U./ dL [facility] UA DIP, URINE (POC)on 2022 BILIRUBIN UA (POCT) Negative Negative [facility] CLARITY UA (POCT) Clear [facility] COLOR UA (POCT) Yellow [facility] GLUCOSE UA (POCT) Negative Negative mg/dL [facility] Hemoglobin Ql (U) Negative [facility] KETONE UA (POCT) Negative Negative mg/dL [facility] LEUKOCYTES UA (POCT) Trace Abnormal Negative [facility] NITRITE UA (POCT) Negative Negative [facility] PH UA (POCT) 6.5 4.5 - 8.0 [facility] Protein Ql (U) Negative Negative mg/dL [facility] SPECIFIC GRAVITY UA (POCT) 1.010 1.005 - 1.030 [facility] UROBILINOGEN UA (POCT) 1.0 E.U./dL Normal E.U./ dL [facility] Absolute lymphocyte countOrd ered By: ED PROVIDER on 07-04-2023 Lymphocytes Auto (Unsp spec) [#/Vol] 2.21 10*3/uL 0.83-4.51 [facility] Basophil percentageOrdered B y: ED PROVIDER on 07-04-2023 Basophils/100 WBC (Bld) 0.7 % 0-1 [facility] Eosinophils/100 WBC (Bld) 2.6 % 0-3 [facility] Neutrophils (Bld) [#/Vol] 4.0 10*3/uL 2.0-7.7 [facility] Neutrophils/100 WBC (Bld) 57.1 % 34-64 [facility] WBC (Bld) [#/Vol] 7.0 10*3/uL 4.5-13.0 [facility] Basophil percentageOrdered B y: Flor Seymour on 07-04-2023 Chloride [Moles/Vol] 108 mmol/L 98-107 [facility] Glucose [Mass/Vol] 79 mg/dL 74-106 [facility] Potassium [Moles/Vol] 4.3 mmol/L 3.5-5.1 [facility] Sodium [Moles/Vol] 139 mmol/L 136-145 [facility] Basophil percentage 0-5 SEEN /hpf 0-5 [facility] Beta hCG serum qualOrdered B y: Flor Seymour on 07-04-2023 Beta HCG ( test) Ql Negative [facility] Bilirubin Test strip Ql (U)O rdered By: Flor Seymour on 07-04-2023 Bilirubin Ql (U) Negative Negative [facility] Blood erythrocytes count (nu mber/volume)Ordered By: ED PROVIDER on 07-04-2023 RBC (Bld) [#/Vol] 4.54 10*6/uL 4.1-4.8 [facility] Blood hemoglobin measurement (mass/volume)Ordered By: ED PROVIDER on 07-04-2023 Hemoglobin (Bld) [Mass/Vol] 12.9 g/dL 12.0-15.0 [facility] Blood lymphocytes/100 leukoc ytesOrdered By: ED PROVIDER on 07-04-2023 Lymphocytes/100 WBC (Bld) 31.8 % 25-45 [facility] Blood monocytes/100 leukocyt esOrdered By: ED PROVIDER on 07-04-2023 Monocytes/100 WBC (Bld) 7.5 % 3-6 [facility] Blood platelet mean volumeOr dered By: ED PROVIDER on 07-04-2023 Platelet mean volume (Bld) [Entitic vol] 9.8 fL 6.2-12.0 [facility] Determination of erythrocyte mean corpuscular volume (MCV)Ordered By: ED PROVIDER on 07-04-2023 MCV (RBC) [Entitic vol] 89.0 fL 78-96 [facility] Hematocrit Auto (Bld) [Volum e fraction]Ordered By: ED PROVIDER on 07-04-2023 Hematocrit (Bld) [Volume fraction] 40.4 % 37-46 [facility] Ketones Test strip Ql (U)Ord ered By: Flor Seymour on 07-04-2023 Ketones Ql (U) 5 mg/dl Negative [facility] - Chemistry and C hemistry - challengeOrdered By: Flor Seymour on 07-04-2023 CO2 [Moles/Vol] 29.0 mmol/L 21.0-32.0 [facility] Urea nitrogen/Creatinine [Mass ratio] 13.9 mg/mg 10-20 [facility] - Hematology and Cell countsOrdered By: ED PROVIDER on 07-04-2023 Erythrocyte distribution width (RBC) [Entitic vol] 39.5 fL 35.1-43.9 [facility] Erythrocyte distribution width (RBC) [Ratio] 12.0 % 11.6-14.6 [facility] Immature granulocytes/100 WBC (Bld) 0.300 % 0.0-0.9 [facility] Comment on above: IG% - Immature Granu locytes (promyelocytes, myelocytes and metamyelocytes) > 1% indicates that a LEFT SHIFT is Present. MCH (RBC) [Entitic mass] 28.4 pg 25.0-35.0 [facility] Nucleated RBC/100 WBC (Bld) [Ratio] 0 % 0-5 [facility] MCHC Auto (RBC) [Mass/Vol]Or dered By: ED PROVIDER on 07-04-2023 MCHC (RBC) [Mass/Vol] 31.9 g/dL 32-36 [facility] Mucus LM Ql (Urine sed)Order ed By: Flor Seymour on 07-04-2023 Mucus Ql (Urine sed) 0 SEEN /hpf [facility] Nitrite Test strip Ql (U)Ord ered By: Flor Seymour on 07-04-2023 Nitrite Ql (U) Negative Negative [facility] No Panel InformationOrdered By: Flor Seymour on 07-04-2023 Estimated Creatinine Clearance Calc 83.81 ml/min [facility] Estimated GFR (MDRD) Amer 100 mL/min >60 [facility] Comment on above: GFR Calc Estimated GFR (MDRD) Non-Af Amer 83 mL/min >60 [facility] Comment on above: Non- GFR Calc Platelets bldOrdered By: ED PROVIDER on 07-04-2023 Platelets (Bld) [#/Vol] 315 10*3/uL 150-450 [facility] Protein Test strip Ql (U)Ord ered By: Flor Seymour on 07-04-2023 Protein Ql (U) 30 mg/dl Negative [facility] Serum or plasma calcium vel urement (mass/volume)Ordered By: Flor Seymour on 07-04-2023 Calcium [Mass/Vol] 9.2 mg/dL 8.5-10.1 [facility] Serum or plasma creatinine m easurement (mass/volume)Ordered By: Flor Seymour on 07-04-2023 Creatinine [Mass/Vol] 0.94 mg/dL 0.55-1.02 [facility] Comment on above: The validity of the calculated GFR & GFRAA in patients over 70 years has not been determined. Clinical correlation is essential. Serum or plasma urea nitroge n measurement (mass/volume)Ordered By: Flor Seymour on 07-04-2023 Urea nitrogen [Mass/Vol] 13 mg/dL 7-18 [facility] Squamous epithelial cells de tection in urine sediment by light microscopyOrdered By: Flor Seymour on 07-04-2023 Epithelial cells.squamous LM Ql (Urine sed) 0-5 SEEN /hpf 5-10 [facility] Thin prep Papanicolaou smear with manual screeningOrdered By: Flor Seymour on 07-04-2023 Thin prep Papanicolaou smear with manual screening 2 5-15 [facility] Urine blood detectionOrdered By: Flor Seymour on 07-04-2023 RBC Ql (U) 250 /ul Negative [facility] RBC Ql (U) 10-25 SEEN /hpf 0-5 [facility] Urine clarityOrdered By: Nataliia Seymour on 07-04-2023 Clarity (U) Clear Clear [facility] Urine color determinationOrd ered By: Flor Seymour on 07-04-2023 Color (U) Yellow Yellow [facility] Urine glucose detectionOrder ed By: Flor Seymour on 07-04-2023 Glucose Ql (U) Normal mg/dl Normal [facility] Urine leukocyte esterase det ection by dipstickOrdered By: Flor Seymour on 07-04-2023 Leukocyte esterase Test strip Ql (U) 100 /ul Negative [facility] Urine pHOrdered By: Flor Seymour on 07-04-2023 pH (U) 6.0 [pH] 5.0 - 8.0 [facility] Urine sediment bacteria coun t by microscopy (number/high power field)Ordered By: Flor Seymour on 07-04-2023 Bacteria LM.HPF (Urine sed) [#/Area] 0 /[HPF] None Seen [facility] Urine specific gravity measu rementOrdered By: Flor Seymour on 07-04-2023 Specific gravity (U) [Rel density] 1.015 1.002-1.030 [facility] Urobilinogen Auto test strip Ql (U)Ordered By: Flor Seymour on 07-04-2023 Urobilinogen Ql (U) 1 mg/dl Normal [facility] Culture, urineOrdered By: Payal Clements on 03-27-2023 Bacteria identified Cx Nom (U) Presumptive E. coli [facility] Basophil percentageOrdered B y: Mara Clements on 03-19-2023 Bilirubin [Mass/Vol] 0.60 mg/dL 0.20-1.00 [facility] Comment on above: For patients on eltr ombopag therapy, use of Dimension [place] TBIL is not recommended. Chloride [Moles/Vol] 106 mmol/L 98-107 [facility] Glucose [Mass/Vol] 88 mg/dL 74-106 [facility] Potassium [Moles/Vol] 3.7 mmol/L 3.5-5.1 [facility] Protein [Mass/Vol] 8.4 g/dL 6.4-8.2 [facility] Sodium [Moles/Vol] 139 mmol/L 136-145 [facility] WBC (Bld) [#/Vol] 7.3 10*3/uL 4.5-13.0 [facility] Blood erythrocytes count (nu mber/volume)Ordered By: Mara Clements on 03-19-2023 RBC (Bld) [#/Vol] 5.02 10*6/uL 4.1-4.8 [facility] Blood hemoglobin measurement (mass/volume)Ordered By: Mara Clements on 03-19-2023 Hemoglobin (Bld) [Mass/Vol] 14.5 g/dL 12.0-15.0 [facility] Blood platelet mean volumeOr dered By: Mara Clements on 03-19-2023 Platelet mean volume (Bld) [Entitic vol] 9.9 fL 6.2-12.0 [facility] Determination of erythrocyte mean corpuscular volume (MCV)Ordered By: Mara Clements on 03-19-2023 MCV (RBC) [Entitic vol] 85.5 fL 78-96 [facility] Hematocrit Auto (Bld) [Volum e fraction]Ordered By: Mara Clements on 03-19-2023 Hematocrit (Bld) [Volume fraction] 42.9 % 37-46 [facility] - Chemistry and C hemistry - challengeOrdered By: Mara Clements on 03-19-2023 ALP [Catalytic activity/Vol] 61 U/L 47-119 [facility] ALT [Catalytic activity/Vol] 13 U/L 13-56 [facility] CO2 [Moles/Vol] 22.0 mmol/L 21.0-32.0 [facility] Free T4 [Mass/Vol] 1.47 ng/dL 0.76-1.46 [facility] Globulin (S) [Mass/Vol] 4.4 g/dL 2.2-4.2 [facility] Urea nitrogen/Creatinine [Mass ratio] 14.2 mg/mg 10-20 [facility] - Hematology and Cell countsOrdered By: Mara Clements on 03-19-2023 Erythrocyte distribution width (RBC) [Entitic vol] 37.2 fL 35.1-43.9 [facility] Erythrocyte distribution width (RBC) [Ratio] 12.0 % 11.6-14.6 [facility] MCH (RBC) [Entitic mass] 28.9 pg 25.0-35.0 [facility] MCHC Auto (RBC) [Mass/Vol]Or dered By: Mara Clements on 03-19-2023 MCHC (RBC) [Mass/Vol] 33.8 g/dL 32-36 [facility] No Panel InformationOrdered By: Maar Clements on 03-19-2023 Thyroid Stimulating Hormone (TSH) 0.45 uIU/mL 0.358-3.74 [facility] Glucose 2 Hour See comment [facility] Comment on above: FASTING 90 Col: 02/22 03/15 0701 30 min GLU 190 H Col: 03/19/23 0740 60 min GLU 137 Col: 03/19/23 0810 120min GLU 72 Col: 03/19/23 0909 Androstenedione 197 ng/dL 41-262 [facility] Comment on above: Performed at: - L [address] [id number] Director: Ritesh Ly MD, Phone: [phone] Estimated GFR (MDRD) Amer [facility] Comment on above: Test not performedAf rican [place]raini GFR Calc Estimated GFR (MDRD) Non-Af Amer TNP [facility] Comment on above: Test not performedNo n- GFR Calc Follicle Stimulating Hormone 5.4 mIU/mL [facility] Comment on above: NORMAL REFERENCE RAN [facility] FEMALE FOLLICULAR 2.3 - 12.6 mIU/mL MID-CYCLE PEAK 5.2 - 17.5 mIU/mL LUTEAL 1.7 - 12.9 mIU/mL POST-MENOPAUSAL ON MHT 5.9 - 72.8 mIU/mL NOT ON MHT 12.7 - 132.2 mlU/mL MALE 0.7 - 10.8 mIU/mL Free Triiodothyronine (T3) pg/dL 2.9 pg/mL 2.18-3.98 [facility] Luteinizing Hormone 9.2 mIU/mL [facility] Comment on above: NORMAL REFERENCE RAN [facility] FEMALE FOLLICULAR 1.9 - 26.2 mIU/mL MID-CYCLE [place]AK 22.8 - 76.1 mIU/mL LUTEAL 0.6 - 16.6 mIU/mL POST-MENOPAUSAL ON MHT 1.1 - 52.4 mIU/mL NOT ON MHT 8.6 - 61.8 mIU/mL MALE 1.2 - 10.6 mIU/mL Total Triiodothyronine 1.48 ng/mL 0.6-1.81 [facility] Vitamin D 25-Hydroxy 15.6 ng/mL [facility] Comment on above: Vitamin D 25(OH) Sta tus Range Deficiency <20 ng/mL (50nmol/L) Insufficiency 20 - 30 ng/mL (50 - 75 nmol/L) Sufficiency 30 - 100 ng/mL (75 - 250 nmol/L) Toxicity >100 ng/mL (>250 nmol/L) Platelets bldOrdered By: Jono Clements on 03-19-2023 Platelets (Bld) [#/Vol] 384 10*3/uL 150-450 [facility] Serum or plasma 17-hydroxypr ogesterone measurement (mass/volume)Ordered By: Mara Clements on 03-19-2023 17-Hydroxyprogesterone [Mass/Vol] 71 ng/dL . [facility] Comment on above: Arnaud Stage Female 1 0 - 82 2 11 - 98 3 11 - 155 4 18 - 230 5 20 - 265Performed at: - [place] [id number] [place], [id number] Director: Ritesh Ly MD, Phone: [phone] Serum or plasma albumin vel urement (mass/volume)Ordered By: Mara Clements on 03-19-2023 Albumin [Mass/Vol] 4.0 g/dL 3.2-5.0 [facility] Serum or plasma albumin/glob ulin mass ratioOrdered By: Summer Tyree on 03-19-2023 Albumin/Globulin [Mass ratio] 0.9 {ratio} 0.9-2.4 [facility] Serum or plasma calcium vel urement (mass/volume)Ordered By: Mara Clements on 03-19-2023 Calcium [Mass/Vol] 9.5 mg/dL 8.5-10.1 [facility] Serum or plasma cortisol castro surement (mass/volume)Ordered By: Mara Clements on 03-19-2023 Cortisol [Mass/Vol] 27.10 ug/dL 3.44-22.45 [facility] Comment on above: Adult (AM) 5.27 - 22 .45 ug/dL Adult (PM) 3.44 - 16.76 ug/dLPlease note revised CORTISOL reference range effective 2019. Serum or plasma creatinine m easurement (mass/volume)Ordered By: Mara Tyree on 03-19-2023 Creatinine [Mass/Vol] 0.98 mg/dL 0.55-1.02 [facility] Comment on above: The validity of the calculated GFR & GFRAA in patients over 70 years has not been determined. Clinical correlation is essential. Serum or plasma estradiol (E 2) measurement (mass/volume)Ordered By: Mara Tyree on 03-19-2023 E2 [Mass/Vol] 78.0 pg/mL [facility] Comment on above: NORMAL REFERENCE RAN [...] 75 g glucose PO Qn See comment [facility] Comment on above: FASTING 7.3 Col: 0701 30 min INS 96.4 Col: 03/19/23 0740 60 min INS 111.7 Col: 03/19/23 0810 120min INS 19.3 Col: 03/19/23 0909 Serum or plasma prolactin me asurement (mass/volume)Ordered By: Mara Clements on 03-19-2023 Prolactin [Mass/Vol] 15.6 ng/mL [facility] Comment on above: NORMAL REFERENCE RAN GES FEMALE NON- 2.2 - 30.3 ng/mL 8.1 - 347.6 ng/mL POST-MENOPAUSAL 0.7 - 31.5 ng/mL MALE 2.5 - 17.4 ng/mL Serum or plasma urea nitroge n measurement (mass/volume)Ordered By: Mara Clements on 03-19-2023 Urea nitrogen [Mass/Vol] 14 mg/dL 7-18 [facility] Thin prep Papanicolaou smear with manual screeningOrdered By: Mara Clements on 03-19-2023 Thin prep Papanicolaou smear with manual screening 17 U/L 15-37 [facility] Thin prep Papanicolaou smear with manual screening 11 5-15 [facility] Absolute lymphocyte countOrd ered By: Dr. Seymour on 02-04-2023 Lymphocytes Auto (Unsp spec) [#/Vol] 0.69 10*3/uL 0.83-4.51 [facility] Basophil percentageOrdered B y: Dr. Seymour on 02-04-2023 Basophil percentage 5-10 SEEN /hpf 0-5 [facility] Basophils/100 WBC (Bld) 0.3 % 0-1 [facility] Chloride [Moles/Vol] 104 mmol/L 98-107 [facility] Eosinophils/100 WBC (Bld) 0.2 % 0-3 [facility] Glucose [Mass/Vol] 103 mg/dL 74-106 [facility] Comment on above: Fasting Glucose resu lt from 100 to 125 mg/dL suggests IMPAIRED HOMEOSTASIS per A.D.A. criteria. Neutrophils (Bld) [#/Vol] 16.4 10*3/uL 2.0-7.7 [facility] Neutrophils/100 WBC (Bld) 91.2 % 34-64 [facility] Potassium [Moles/Vol] 3.1 mmol/L 3.5-5.1 [facility] Sodium [Moles/Vol] 134 mmol/L 136-145 [facility] WBC (Bld) [#/Vol] 17.9 10*3/uL 4.5-13.0 [facility] Bilirubin Test strip Ql (U)O rdered By: Dr. Seymour on 02-04-2023 Bilirubin Ql (U) 1 mg/dL Negative [facility] Comment on above: COLOR OF URINE MAY A FFECT DIPSTICK RESULTS. Blood erythrocytes count (nu mber/volume)Ordered By: Dr. Seymour on 02-04-2023 RBC (Bld) [#/Vol] 4.59 10*6/uL 4.1-4.8 [facility] Blood hemoglobin measurement (mass/volume)Ordered By: Dr. Seymour on 02-04-2023 Hemoglobin (Bld) [Mass/Vol] 13.4 g/dL 12.0-15.0 [facility] Blood lymphocytes/100 leukoc ytesOrdered By: Dr. Seymour on 02-04-2023 Lymphocytes/100 WBC (Bld) 3.8 % 25-45 [facility] Blood monocytes/100 leukocyt esOrdered By: Dr. Seymour on 02-04-2023 Monocytes/100 WBC (Bld) 3.7 % 3-6 [facility] Blood platelet mean volumeOr dered By: Dr. Seymour on 02-04-2023 Platelet mean volume (Bld) [Entitic vol] 10.5 fL 6.2-12.0 [facility] Determination of erythrocyte mean corpuscular volume (MCV)Ordered By: Dr. Seymour on 02-04-2023 MCV (RBC) [Entitic vol] 84.1 fL 78-96 [facility] Hematocrit Auto (Bld) [Volum e fraction]Ordered By: Dr. Seymour on 02-04-2023 Hematocrit (Bld) [Volume fraction] 38.6 % 37-46 [facility] Influenza virus A and B and SARS-CoV-2 (COVID-19) Ag panel - Upper respiratory specimOrdered By: Flor Seymour on 02-04-2023 SARS-CoV-2 (COVID-19) RNA JAIRON+probe Ql (Resp) [facility] Influenza virus A and B and SARS-CoV-2 (COVID-19) Ag panel - Upper respiratory specimOrdered By: Dr. Seymour on 02-04-2023 SARS-CoV-2 (COVID-19) RNA JAIRON+probe Ql (Resp) [facility] Ketones Test strip Ql (U)Ord ered By: Dr. Seymour on 02-04-2023 Ketones Ql (U) 150 mg/dl Negative [facility] Comment on above: CRITICAL VALUE *HCRI TICAL VALUE VERIFIED. CALLED TO SHIVAM BOWLING02/04/[id number] Khalif Lemus.RESULTS READ BACK BY SAME . Laboratory - Chemistry and C hemistry - challengeOrdered By: Dr. Seymour on 02-04-2023 CO2 [Moles/Vol] 21.0 mmol/L 21.0-32.0 [facility] Urea nitrogen/Creatinine [Mass ratio] 8.7 mg/mg 10-20 [facility] Laboratory - Hematology and Cell countsOrdered By: Dr. Seymour on 02-04-2023 Erythrocyte distribution width (RBC) [Entitic vol] 35.8 fL 35.1-43.9 [facility] Erythrocyte distribution width (RBC) [Ratio] 11.8 % 11.6-14.6 [facility] Immature granulocytes/100 WBC (Bld) 0.800 % 0.0-0.9 [facility] Comment on above: IG% - Immature Granu locytes (promyelocytes, myelocytes and metamyelocytes) > 1% indicates that a LEFT SHIFT is Present. MCH (RBC) [Entitic mass] 29.2 pg 25.0-35.0 [facility] Nucleated RBC/100 WBC (Bld) [Ratio] 0 % 0-5 [facility] MCHC Auto (RBC) [Mass/Vol]Or dered By: Dr. Seymour on 02-04-2023 MCHC (RBC) [Mass/Vol] 34.7 g/dL 32-36 [facility] Mucus LM Ql (Urine sed)Order ed By: Dr. Seymour on 02-04-2023 Mucus Ql (Urine sed) 0 SEEN /hpf [facility] Nitrite Test strip Ql (U)Ord ered By: Dr. Seymour on 02-04-2023 Nitrite Ql (U) Negative Negative [facility] No Panel InformationOrdered By: Dr. Seymour on 02-04-2023 Estimated Creatinine Clearance Calc 82.80 ml/min [facility] Estimated GFR (MDRD) [facility] Comment on above: Test not performedAf rican [place]raini GFR Calc Estimated GFR (MDRD) [facility] Comment on above: Test not performedNo n- GFR Calc Platelets bldOrdered By: Dr. Seymour on 02-04-2023 Platelets (Bld) [#/Vol] 258 10*3/uL 150-450 [facility] Protein Test strip Ql (U)Ord ered By: Dr. Seymour on 02-04-2023 Protein Ql (U) 100 mg/dl Negative [facility] S. pyogenes Ag IF Ql (Throat )Ordered By: Flor Seymour on 02-04-2023 S. pyogenes Ag IA Ql (Unsp spec) Streptococcus Group A [facility] S. pyogenes Ag IF Ql (Throat )Ordered By: Dr. Seymour on 02-04-2023 S. pyogenes Ag IA Ql (Unsp spec) Streptococcus Group A [facility] Serum or plasma calcium vel urement (mass/volume)Ordered By: Dr. Seymour on 02-04-2023 Calcium [Mass/Vol] 9.2 mg/dL 8.5-10.1 [facility] Serum or plasma creatinine m easurement (mass/volume)Ordered By: Dr. Seymour on 02-04-2023 Creatinine [Mass/Vol] 1.04 mg/dL 0.55-1.02 [facility] Comment on above: The validity of the calculated GFR & GFRAA in patients over 70 years has not been determined. Clinical correlation is essential. Serum or plasma urea nitroge n measurement (mass/volume)Ordered By: Dr. Seymour on 02-04-2023 Urea nitrogen [Mass/Vol] 9 mg/dL 7-18 [facility] Squamous epithelial cells de tection in urine sediment by light microscopyOrdered By: Dr. Seymour on 02-04-2023 Epithelial cells.squamous LM Ql (Urine sed) 0-5 SEEN /hpf 5-10 [facility] Thin prep Papanicolaou smear with manual screeningOrdered By: Dr. Seymour on 02-04-2023 Thin prep Papanicolaou smear with manual screening 9 5-15 [facility] Urine blood detectionOrdered By: Dr. Seymour on 02-04-2023 RBC Ql (U) Negative Negative [facility] RBC Ql (U) 0 SEEN /hpf 0-5 [facility] Urine clarityOrdered By: Dr. Seymour on 02-04-2023 Clarity (U) Clear Clear [facility] Urine color determinationOrd ered By: Dr. Seymour on 02-04-2023 Color (U) Yellow Yellow [facility] Urine glucose detectionOrder ed By: Dr. Seymour on 02-04-2023 Glucose Ql (U) Normal mg/dl Normal [facility] Urine leukocyte esterase det ection by dipstickOrdered By: Dr. Seymour on 02-04-2023 Leukocyte esterase Test strip Ql (U) 25 /ul Negative [facility] Urine pHOrdered By: Dr. Lesli khanna on 02-04-2023 pH (U) 6.5 [pH] 5.0 - 8.0 [facility] Urine sediment bacteria coun t by microscopy (number/high power field)Ordered By: Dr. Seymour on 02-04-2023 Bacteria LM.HPF (Urine sed) [#/Area] 1 /[HPF] None Seen [facility] Urine specific gravity measu rementOrdered By: Dr. Seymour on 02-04-2023 Specific gravity (U) [Rel density] 1.015 1.002-1.030 [facility] Urobilinogen Auto test strip Ql (U)Ordered By: Dr. Seymour on 02-04-2023 Urobilinogen Ql (U) 12 mg/dl Normal [facility] Throat specimen bacteria radha ntification by cultureOrdered By: Dr. Wolfe on 12-03-2022 Bacteria identified Cx Nom (Throat) streptococcus isolated. [facility] Culture, urineOrdered By: Dr Praveena De La Torre on 12-01-2022 Bacteria identified Cx Nom (U) Presumptive E. coli [facility] Throat specimen bacteria radha ntification by cultureOrdered By: J Luis Wolfe on 12-01-2022 Bacteria identified Cx Nom (Throat) streptococcus isolated. [facility] Absolute lymphocyte countOrd ered By: Dr. De La Torre on 11-28-2022 Lymphocytes Auto (Unsp spec) [#/Vol] 2.71 10*3/uL 0.83-4.51 [facility] Basophil percentageOrdered B y: Dr. De La Torre on 11-28-2022 Basophil percentage 25-50 SEEN /hpf 0-5 [facility] Basophils/100 WBC (Bld) 0.5 % 0-1 [facility] Chloride [Moles/Vol] 108 mmol/L 98-107 [facility] Eosinophils/100 WBC (Bld) 1.5 % 0-3 [facility] Glucose [Mass/Vol] 75 mg/dL 74-106 [facility] Neutrophils (Bld) [#/Vol] 5.8 10*3/uL 2.0-7.7 [facility] Neutrophils/100 WBC (Bld) 62.9 % 34-64 [facility] Potassium [Moles/Vol] 3.5 mmol/L 3.5-5.1 [facility] Sodium [Moles/Vol] 141 mmol/L 136-145 [facility] WBC (Bld) [#/Vol] 9.3 10*3/uL 4.5-13.0 [facility] Bilirubin Test strip Ql (U)O rdered By: Dr. De La Torre on 11-28-2022 Bilirubin Ql (U) Negative Negative [facility] Blood erythrocytes count (nu mber/volume)Ordered By: Dr. De La Torre on 11-28-2022 RBC (Bld) [#/Vol] 4.53 10*6/uL 4.1-4.8 [facility] Blood hemoglobin measurement (mass/volume)Ordered By: Dr. De La Torre on 11-28-2022 Hemoglobin (Bld) [Mass/Vol] 12.8 g/dL 12.0-15.0 [facility] Blood lymphocytes/100 leukoc ytesOrdered By: Dr. De La Torre on 11-28-2022 Lymphocytes/100 WBC (Bld) 29.3 % 25-45 [facility] Blood monocytes/100 leukocyt esOrdered By: Dr. De La Torre on 11-28-2022 Monocytes/100 WBC (Bld) 5.6 % 3-6 [facility] Blood platelet mean volumeOr dered By: Dr. De La Torre on 11-28-2022 Platelet mean volume (Bld) [Entitic vol] 9.8 fL 6.2-12.0 [facility] Culture, urineOrdered By: John De La Torre on 11-28-2022 Bacteria identified Cx Nom (U) Presumptive E. coli [facility] Determination of erythrocyte mean corpuscular volume (MCV)Ordered By: Dr. De La Torre on 11-28-2022 MCV (RBC) [Entitic vol] 86.1 fL 78-96 [facility] Hematocrit Auto (Bld) [Volum e fraction]Ordered By: Dr. De La Torre on 11-28-2022 Hematocrit (Bld) [Volume fraction] 39.0 % 37-46 [facility] Ketones Test strip Ql (U)Ord ered By: Dr. De La Torre on 11-28-2022 Ketones Ql (U) 5 mg/dl Negative [facility] Laboratory - Chemistry and C hemistry - challengeOrdered By: Dr. De La Torre on 11-28-2022 CO2 [Moles/Vol] 26.0 mmol/L 21.0-32.0 [facility] Urea nitrogen/Creatinine [Mass ratio] 12.1 mg/mg 10-20 [facility] Laboratory - Hematology and Cell countsOrdered By: Dr. De La Torre on 11-28-2022 Erythrocyte distribution width (RBC) [Entitic vol] 36.8 fL 35.1-43.9 [facility] Erythrocyte distribution width (RBC) [Ratio] 11.7 % 11.6-14.6 [facility] Immature granulocytes/100 WBC (Bld) 0.200 % 0.0-0.9 [facility] Comment on above: IG% - Immature Granu locytes (promyelocytes, myelocytes and metamyelocytes) > 1% indicates that a LEFT SHIFT is Present. MCH (RBC) [Entitic mass] 28.3 pg 25.0-35.0 [facility] Nucleated RBC/100 WBC (Bld) [Ratio] 0 % 0-5 [facility] MCHC Auto (RBC) [Mass/Vol]Or dered By: Dr. De La Torre on 11-28-2022 MCHC (RBC) [Mass/Vol] 32.8 g/dL 32-36 [facility] Mucus LM Ql (Urine sed)Order ed By: Dr. De La Torre on 11-28-2022 Mucus Ql (Urine sed) RARE /hpf [facility] Nitrite Test strip Ql (U)Ord ered By: Dr. De La Torre on 11-28-2022 Nitrite Ql (U) Negative Negative [facility] No Panel InformationOrdered By: Dr. De La Torre on 11-28-2022 Estimated Creatinine Clearance Calc 96.86 ml/min [facility] Estimated GFR (MDRD) [facility] Comment on above: Test not performedAf rican [place]i GFR Calc Estimated GFR (MDRD) Non-Af [facility] Comment on above: Test not performedNo n- GFR Calc Platelets bldOrdered By: Dr. De La Torre on 11-28-2022 Platelets (Bld) [#/Vol] 347 10*3/uL 150-450 [facility] Protein Test strip Ql (U)Ord ered By: Dr. De La Torre on 11-28-2022 Protein Ql (U) Negative Negative [facility] Serum or plasma calcium vel urement (mass/volume)Ordered By: Dr. De La Torre on 11-28-2022 Calcium [Mass/Vol] 9.3 mg/dL 8.5-10.1 [facility] Serum or plasma creatinine m easurement (mass/volume)Ordered By: Dr. De La Torre on 11-28-2022 Creatinine [Mass/Vol] 0.82 mg/dL 0.55-1.02 [facility] Comment on above: The validity of the calculated GFR & GFRAA in patients over 70 years has not been determined. Clinical correlation is essential. Serum or plasma urea nitroge n measurement (mass/volume)Ordered By: Dr. De La Torre on 11-28-2022 Urea nitrogen [Mass/Vol] 10 mg/dL 7-18 [facility] Squamous epithelial cells de tection in urine sediment by light microscopyOrdered By: Dr. De La Torre on 11-28-2022 Epithelial cells.squamous LM Ql (Urine sed) 0-5 SEEN /hpf 5-10 [facility] Thin prep Papanicolaou smear with manual screeningOrdered By: Dr. De La Torre on 11-28-2022 Thin prep Papanicolaou smear with manual screening 7 5-15 [facility] Urine blood detectionOrdered By: Dr. De La Torre on 11-28-2022 RBC Ql (U) 25 /ul Negative [facility] RBC Ql (U) 0-5 SEEN /hpf 0-5 [facility] Urine clarityOrdered By: Dr. De La Torre on 11-28-2022 Clarity (U) Sl. Cloudy Clear [facility] Urine color determinationOrd ered By: Dr. De La Torre on 11-28-2022 Color (U) Yellow Yellow [facility] Urine glucose detectionOrder ed By: Dr. De La Torre on 11-28-2022 Glucose Ql (U) Normal mg/dl Normal [facility] Urine leukocyte esterase det ection by dipstickOrdered By: Dr. De La Torre on 11-28-2022 Leukocyte esterase Test strip Ql (U) 500 /ul Negative [facility] Urine pHOrdered By: Dr. Azeem cristobal on 11-28-2022 pH (U) 8.0 [pH] 5.0 - 8.0 [facility] Urine sediment bacteria coun t by microscopy (number/high power field)Ordered By: Dr. De La Torre on 11-28-2022 Bacteria LM.HPF (Urine sed) [#/Area] RARE /hpf None Seen [facility] Urine specific gravity measu rementOrdered By: Dr. De La Torre on 11-28-2022 Specific gravity (U) [Rel density] 1.015 1.002-1.030 [facility] Urobilinogen Auto test strip Ql (U)Ordered By: Dr. De La Torre on 11-28-2022 Urobilinogen Ql (U) Normal mg/dl Normal [facility] TSH with Reflex to T4, Freeo n 11-24-2022 TSH with reflex to T4, Free 0.823 [facility] Release to patient->Automatic [facility] Culture, urineOrdered By: Dr Praveena Clements on 11-19-2022 Bacteria identified Cx Nom (U) Mixed Gram Pos & Gram Neg Org [facility] Basophil percentageOrdered B y: Dr. Clements on 11-18-2022 Basophil percentage 5-10 SEEN /hpf 0-5 [facility] Basophil percentageOrdered B y: Teodoro Anthonyvalentin on 11-18-2022 Lactate [Moles/Vol] 0.7 mmol/L 0.4-2.0 [facility] Bilirubin Test strip Ql (U)O rdered By: Dr. Clements on 11-18-2022 Bilirubin Ql (U) Negative Negative [facility] Ketones Test strip Ql (U)Ord ered By: Dr. Clements on 11-18-2022 Ketones Ql (U) Negative Negative [facility] Mucus LM Ql (Urine sed)Order ed By: Dr. Clements on 11-18-2022 Mucus Ql (Urine sed) 2+ /hpf [facility] Nitrite Test strip Ql (U)Ord ered By: Dr. Clements on 11-18-2022 Nitrite Ql (U) Negative Negative [facility] Protein Test strip Ql (U)Ord ered By: Dr. Clements on 11-18-2022 Protein Ql (U) 30 mg/dl Negative [facility] Squamous epithelial cells de tection in urine sediment by light microscopyOrdered By: Dr. Clements on 11-18-2022 Epithelial cells.squamous LM Ql (Urine sed) 0 SEEN /hpf 5-10 [facility] Urine blood detectionOrdered By: Dr. Clements on 11-18-2022 RBC Ql (U) Negative Negative [facility] RBC Ql (U) 0 SEEN /hpf 0-5 [facility] Urine clarityOrdered By: Dr. Clements on 11-18-2022 Clarity (U) Clear Clear [facility] Urine color determinationOrd ered By: Dr. Clements on 11-18-2022 Color (U) Yellow Yellow [facility] Urine glucose detectionOrder ed By: Dr. Clements on 11-18-2022 Glucose Ql (U) Normal mg/dl Normal [facility] Urine leukocyte esterase det ection by dipstickOrdered By: Dr. Clements on 11-18-2022 Leukocyte esterase Test strip Ql (U) 25 /ul Negative [facility] Urine pHOrdered By: Dr. Urvashi dutta on 11-18-2022 pH (U) 6.0 [pH] 5.0 - 8.0 [facility] Urine sediment bacteria coun t by microscopy (number/high power field)Ordered By: Dr. Clements on 11-18-2022 Bacteria LM.HPF (Urine sed) [#/Area] 1 /[HPF] None Seen [facility] Urine specific gravity measu rementOrdered By: Dr. Clements on 11-18-2022 Specific gravity (U) [Rel density] 1.020 1.002-1.030 [facility] Urobilinogen Auto test strip Ql (U)Ordered By: Dr. Clements on 11-18-2022 Urobilinogen Ql (U) 1 mg/dl Normal [facility] Absolute lymphocyte countOrd ered By: Teodoro Garcia on 11-17-2022 Lymphocytes Auto (Unsp spec) [#/Vol] 6.68 10*3/uL 0.83-4.51 [facility] Basophil percentageOrdered B y: Teodoro Garcia on 11-17-2022 Basophils/100 WBC (Bld) 0.5 % 0-1 [facility] Chloride [Moles/Vol] 108 mmol/L 98-107 [facility] Eosinophils/100 WBC (Bld) 1.4 % 0-3 [facility] Glucose [Mass/Vol] 60 mg/dL 74-106 [facility] Lactate [Moles/Vol] 3.1 mmol/L 0.4-2.0 [facility] Comment on above: Critical Result(s) C alled at: 23:35:04 11/17/2022 by: NANCY MCKAY TO SHIVAM BOWLING. Results read back by same. Neutrophils (Bld) [#/Vol] 5.5 10*3/uL 2.0-7.7 [facility] Neutrophils/100 WBC (Bld) 41.2 % 34-64 [facility] Potassium [Moles/Vol] 3.8 mmol/L 3.5-5.1 [facility] Sodium [Moles/Vol] 140 mmol/L 136-145 [facility] WBC (Bld) [#/Vol] 13.3 10*3/uL 4.5-13.0 [facility] Beta hCG serum qualOrdered B y: Dr. Clements on 11-17-2022 Beta HCG ( test) Ql Negative [facility] Blood erythrocytes count (nu mber/volume)Ordered By: Teodoro Garcia on 11-17-2022 RBC (Bld) [#/Vol] 5.17 10*6/uL 4.1-4.8 [facility] Blood hemoglobin measurement (mass/volume)Ordered By: Teodoro Garcia on 11-17-2022 Hemoglobin (Bld) [Mass/Vol] 15.0 g/dL 12.0-15.0 [facility] Blood lymphocytes/100 leukoc ytesOrdered By: Teodoro Garcia on 11-17-2022 Lymphocytes/100 WBC (Bld) 50.2 % 25-45 [facility] Blood manual differential co mment interpretation (narrative result)Ordered By: Teodoro Garcia on 11-17-2022 Manual differential comment James (Bld) [Interp] SCANNED [facility] Blood monocytes/100 leukocyt esOrdered By: Teodoro Garcia on 11-17-2022 Monocytes/100 WBC (Bld) 6.4 % 3-6 [facility] Blood platelet mean volumeOr dered By: Teodoro Garcia on 11-17-2022 Platelet mean volume (Bld) [Entitic vol] 9.6 fL 6.2-12.0 [facility] Determination of erythrocyte mean corpuscular volume (MCV)Ordered By: Teodoro Garcia on 11-17-2022 MCV (RBC) [Entitic vol] 86.3 fL 78-96 [facility] Hematocrit Auto (Bld) [Volum e fraction]Ordered By: Teodoro Garcia on 11-17-2022 Hematocrit (Bld) [Volume fraction] 44.6 % 37-46 [facility] INR in Blood by Coagulation assayOrdered By: Teodoro Garcia on 11-17-2022 INR Coag (Bld) [Relative time] 1.0 {INR} [facility] Laboratory - Chemistry and C hemistry - challengeOrdered By: Teodoro Garcia on 11-17-2022 CO2 [Moles/Vol] 27.0 mmol/L 21.0-32.0 [facility] Urea nitrogen/Creatinine [Mass ratio] 15.1 mg/mg 10-20 [facility] - CoagulationOrde red By: Teodoro Garcia on 11-17-2022 aPTT Coag (Bld) [Time] 30.9 s 24.1-36.2 [facility] PT Coag (PPP) [Time] 12.5 s 11.7-14.9 [facility] Laboratory - Hematology and Cell countsOrdered By: Teodoro Garcia on 11-17-2022 Erythrocyte distribution width (RBC) [Entitic vol] 37.1 fL 35.1-43.9 [facility] Erythrocyte distribution width (RBC) [Ratio] 11.8 % 11.6-14.6 [facility] Immature granulocytes/100 WBC (Bld) 0.300 % 0.0-0.9 [facility] Comment on above: IG% - Immature Granu locytes (promyelocytes, myelocytes and metamyelocytes) > 1% indicates that a LEFT SHIFT is Present. MCH (RBC) [Entitic mass] 29.0 pg 25.0-35.0 [facility] Nucleated RBC/100 WBC (Bld) [Ratio] 0 % 0-5 [facility] MCHC Auto (RBC) [Mass/Vol]Or dered By: Teodoro Garcia on 11-17-2022 MCHC (RBC) [Mass/Vol] 33.6 g/dL 32-36 [facility] No Panel InformationOrdered By: Teodoro Garcia on 11-17-2022 Atypical Lymphocytes 1+ % [facility] Estimated GFR (MDRD) [facility] Comment on above: Test not performedAf rican [place]i GFR Calc Estimated GFR (MDRD) Non-Af [facility] Comment on above: Test not performedNo n- GFR Calc Platelets bldOrdered By: Fran Garcia on 11-17-2022 Platelets (Bld) [#/Vol] 471 10*3/uL 150-450 [facility] Serum or plasma calcium vel urement (mass/volume)Ordered By: Teodoro Garcia on 11-17-2022 Calcium [Mass/Vol] 9.2 mg/dL 8.5-10.1 [facility] Serum or plasma creatinine m easurement (mass/volume)Ordered By: Teodoro Garcia on 11-17-2022 Creatinine [Mass/Vol] 0.93 mg/dL 0.55-1.02 [facility] Comment on above: The validity of the calculated GFR & GFRAA in patients over 70 years has not been determined. Clinical correlation is essential. Serum or plasma urea nitroge n measurement (mass/volume)Ordered By: Teodoro Garcia on 11-17-2022 Urea nitrogen [Mass/Vol] 14 mg/dL 7-18 [facility] Thin prep Papanicolaou smear with manual screeningOrdered By: Teodoro Garcia on 11-17-2022 Thin prep Papanicolaou smear with manual screening 5 5-15 [facility] Absolute lymphocyte countOrd ered By: Dr. Harris on 11-12-2022 Lymphocytes Auto (Unsp spec) [#/Vol] 1.06 10*3/uL 0.83-4.51 [facility] Basophil percentageOrdered B y: Dr. Harris on 11-12-2022 Basophil percentage 0 SEEN /hpf 0-5 [facility] Basophils/100 WBC (Bld) 0.4 % 0-1 [facility] Bilirubin [Mass/Vol] 0.50 mg/dL 0.20-1.00 [facility] Comment on above: For patients on eltr ombopag therapy, use of Dimension [place] TBIL is not recommended. Chloride [Moles/Vol] 110 mmol/L 98-107 [facility] Eosinophils/100 WBC (Bld) 0.2 % 0-3 [facility] Glucose [Mass/Vol] 93 mg/dL 74-106 [facility] Neutrophils (Bld) [#/Vol] 10.9 10*3/uL 2.0-7.7 [facility] Neutrophils/100 WBC (Bld) 89.5 % 34-64 [facility] Potassium [Moles/Vol] 3.9 mmol/L 3.5-5.1 [facility] Protein [Mass/Vol] 7.7 g/dL 6.4-8.2 [facility] Sodium [Moles/Vol] 141 mmol/L 136-145 [facility] WBC (Bld) [#/Vol] 12.2 10*3/uL 4.5-13.0 [facility] Beta hCG serum qualOrdered B y: Dr. Harris on 11-12-2022 Beta HCG ( test) Ql Negative [facility] Bilirubin Test strip Ql (U)O rdered By: Dr. Harris on 11-12-2022 Bilirubin Ql (U) Negative Negative [facility] Blood erythrocytes count (nu mber/volume)Ordered By: Dr. Harris on 11-12-2022 RBC (Bld) [#/Vol] 4.89 10*6/uL 4.1-4.8 [facility] Blood hemoglobin measurement (mass/volume)Ordered By: Dr. Harris on 11-12-2022 Hemoglobin (Bld) [Mass/Vol] 13.9 g/dL 12.0-15.0 [facility] Blood lymphocytes/100 leukoc ytesOrdered By: Dr. Harris on 11-12-2022 Lymphocytes/100 WBC (Bld) 8.7 % 25-45 [facility] Blood monocytes/100 leukocyt esOrdered By: Dr. Harris on 11-12-2022 Monocytes/100 WBC (Bld) 0.9 % 3-6 [facility] Blood platelet mean volumeOr dered By: Dr. Harris on 11-12-2022 Platelet mean volume (Bld) [Entitic vol] 9.9 fL 6.2-12.0 [facility] Determination of erythrocyte mean corpuscular volume (MCV)Ordered By: Dr. Harris on 11-12-2022 MCV (RBC) [Entitic vol] 88.1 fL 78-96 [facility] Direct bilirubinOrdered By: Dr. Harris on 11-12-2022 Bilirubin.direct [Mass/Vol] 0.18 mg/dL 0.00-0.30 [facility] Hematocrit Auto (Bld) [Volum e fraction]Ordered By: Dr. Harris on 11-12-2022 Hematocrit (Bld) [Volume fraction] 43.1 % 37-46 [facility] Ketones Test strip Ql (U)Ord ered By: Dr. Harris on 11-12-2022 Ketones Ql (U) Negative Negative [facility] - Chemistry and C hemistry - challengeOrdered By: Dr. Harris on 11-12-2022 ALP [Catalytic activity/Vol] 53 U/L 47-119 [facility] ALT [Catalytic activity/Vol] 16 U/L 13-56 [facility] CO2 [Moles/Vol] 25.0 mmol/L 21.0-32.0 [facility] Globulin (S) [Mass/Vol] 3.7 g/dL 2.2-4.2 [facility] Lipase [Catalytic activity/Vol] 97 U/L 73-393 [facility] Urea nitrogen/Creatinine [Mass ratio] 14.2 mg/mg 10-20 [facility] - Hematology and Cell countsOrdered By: Dr. Harris on 11-12-2022 Erythrocyte distribution width (RBC) [Entitic vol] 38.0 fL 35.1-43.9 [facility] Erythrocyte distribution width (RBC) [Ratio] 11.7 % 11.6-14.6 [facility] Immature granulocytes/100 WBC (Bld) 0.300 % 0.0-0.9 [facility] Comment on above: IG% - Immature Granu locytes (promyelocytes, myelocytes and metamyelocytes) > 1% indicates that a LEFT SHIFT is Present. MCH (RBC) [Entitic mass] 28.4 pg 25.0-35.0 [facility] Nucleated RBC/100 WBC (Bld) [Ratio] 0 % 0-5 [facility] MCHC Auto (RBC) [Mass/Vol]Or dered By: Dr. Harris on 11-12-2022 MCHC (RBC) [Mass/Vol] 32.3 g/dL 32-36 [facility] Mucus LM Ql (Urine sed)Order ed By: Dr. Harris on 11-12-2022 Mucus Ql (Urine sed) 0 SEEN /hpf [facility] Nitrite Test strip Ql (U)Ord ered By: Dr. Harris on 11-12-2022 Nitrite Ql (U) Negative Negative [facility] No Panel InformationOrdered By: Dr. Harris on 11-12-2022 Estimated Creatinine Clearance Calc 94.47 ml/min [facility] Estimated GFR (MDRD) Amer TNP [facility] Comment on above: Test not performedAf rican [place]raini GFR Calc Estimated GFR (MDRD) Non-Af Amer TNP [facility] Comment on above: Test not performedNo n- GFR Calc Platelets bldOrdered By: Dr. Harris on 11-12-2022 Platelets (Bld) [#/Vol] 353 10*3/uL 150-450 [facility] Protein Test strip Ql (U)Ord ered By: Dr. Harris on 11-12-2022 Protein Ql (U) 15 mg/dl Negative [facility] Serum or plasma albumin vel urement (mass/volume)Ordered By: Dr. Harris on 11-12-2022 Albumin [Mass/Vol] 4.0 g/dL 3.2-5.0 [facility] Serum or plasma albumin/glob ulin mass ratioOrdered By: Dr. Harris on 11-12-2022 Albumin/Globulin [Mass ratio] 1.1 {ratio} 0.9-2.4 [facility] Serum or plasma calcium vel urement (mass/volume)Ordered By: Dr. Harris on 11-12-2022 Calcium [Mass/Vol] 9.5 mg/dL 8.5-10.1 [facility] Serum or plasma creatinine m easurement (mass/volume)Ordered By: Dr. Harris on 11-12-2022 Creatinine [Mass/Vol] 0.91 mg/dL 0.55-1.02 [facility] Comment on above: The validity of the calculated GFR & GFRAA in patients over 70 years has not been determined. Clinical correlation is essential. Serum or plasma urea nitroge n measurement (mass/volume)Ordered By: Dr. Harris on 11-12-2022 Urea nitrogen [Mass/Vol] 13 mg/dL 7-18 [facility] Squamous epithelial cells de tection in urine sediment by light microscopyOrdered By: Dr. Harris on 11-12-2022 Epithelial cells.squamous LM Ql (Urine sed) 0 SEEN /hpf 5-10 [facility] Thin prep Papanicolaou smear with manual screeningOrdered By: Dr. Harris on 11-12-2022 Thin prep Papanicolaou smear with manual screening 18 U/L 15-37 [facility] Thin prep Papanicolaou smear with manual screening 6 5-15 [facility] Urine blood detectionOrdered By: Dr. Harris on 11-12-2022 RBC Ql (U) 150 /ul Negative [facility] RBC Ql (U) 0 SEEN /hpf 0-5 [facility] Urine clarityOrdered By: Dr. Harris on 11-12-2022 Clarity (U) Clear Clear [facility] Urine color determinationOrd ered By: Dr. Harris on 11-12-2022 Color (U) Yellow Yellow [facility] Urine glucose detectionOrder ed By: Dr. Harris on 11-12-2022 Glucose Ql (U) Normal mg/dl Normal [facility] Urine leukocyte esterase det ection by dipstickOrdered By: Dr. Harris on 11-12-2022 Leukocyte esterase Test strip Ql (U) Negative Negative [facility] Urine pHOrdered By: Dr. Carrington jones on 11-12-2022 pH (U) 7.0 [pH] 5.0 - 8.0 [facility] Urine sediment bacteria coun t by microscopy (number/high power field)Ordered By: Dr. Harris on 11-12-2022 Bacteria LM.HPF (Urine sed) [#/Area] 0 /[HPF] None Seen [facility] Urine specific gravity measu rementOrdered By: Dr. Harris on 11-12-2022 Specific gravity (U) [Rel density] 1.010 1.002-1.030 [facility] Urobilinogen Auto test strip Ql (U)Ordered By: Dr. Harris on 11-12-2022 Urobilinogen Ql (U) Normal mg/dl Normal [facility] 2019 CORONAVIRUSon 3 SARS-CoV-2 (COVID-19) RNA JAIRON+probe Ql (Resp) SARS-CoV-2 (Agent of COVID-19) Not Detected by RT-PCR or equivalent method. Not Detected [facility] Absolute lymphocyte countOrd ered By: Dr. De La Torre on 08-26-2022 Lymphocytes Auto (Unsp spec) [#/Vol] 0.76 10*3/uL 0.83-4.51 [facility] Basophil percentageOrdered B y: Dr. De La Torre on 08-26-2022 Basophils/100 WBC (Bld) 0.2 % 0-1 [facility] Bilirubin [Mass/Vol] 0.70 mg/dL 0.20-1.00 [facility] Comment on above: For patients on eltr ombopag therapy, use of Dimension [place] TBIL is not recommended. Chloride [Moles/Vol] 104 mmol/L 98-107 [facility] Eosinophils/100 WBC (Bld) 0.5 % 0-3 [facility] Glucose [Mass/Vol] 104 mg/dL 74-106 [facility] Comment on above: Fasting Glucose resu lt from 100 to 125 mg/dL suggests IMPAIRED HOMEOSTASIS per A.D.A. criteria. Neutrophils (Bld) [#/Vol] 11.0 10*3/uL 2.0-7.7 [facility] Neutrophils/100 WBC (Bld) 86.4 % 34-64 [facility] Potassium [Moles/Vol] 3.2 mmol/L 3.5-5.1 [facility] Protein [Mass/Vol] 8.4 g/dL 6.4-8.2 [facility] Sodium [Moles/Vol] 138 mmol/L 136-145 [facility] WBC (Bld) [#/Vol] 12.8 10*3/uL 4.5-13.0 [facility] Blood erythrocytes count (nu mber/volume)Ordered By: Dr. De La Torre on 08-26-2022 RBC (Bld) [#/Vol] 5.04 10*6/uL 4.1-4.8 [facility] Blood hemoglobin measurement (mass/volume)Ordered By: Dr. De La Torre on 08-26-2022 Hemoglobin (Bld) [Mass/Vol] 14.6 g/dL 12.0-15.0 [facility] Blood lymphocytes/100 leukoc ytesOrdered By: Dr. D eLa Torre on 08-26-2022 Lymphocytes/100 WBC (Bld) 5.9 % 25-45 [facility] Blood monocytes/100 leukocyt esOrdered By: Dr. De La Torre on 08-26-2022 Monocytes/100 WBC (Bld) 6.7 % 3-6 [facility] Blood platelet mean volumeOr dered By: Dr. De La Torre on 08-26-2022 Platelet mean volume (Bld) [Entitic vol] 9.8 fL 6.2-12.0 [facility] Determination of erythrocyte mean corpuscular volume (MCV)Ordered By: Dr. De La Torre on 08-26-2022 MCV (RBC) [Entitic vol] 85.9 fL 78-96 [facility] Hematocrit Auto (Bld) [Volum e fraction]Ordered By: Dr. De La Torre on 08-26-2022 Hematocrit (Bld) [Volume fraction] 43.3 % 37-46 [facility] Influenza virus A and B and SARS-CoV-2 (COVID-19) Ag panel - Upper respiratory specimOrdered By: Dr. De La Torre on 08-26-2022 SARS-CoV-2 (COVID-19) RNA JAIRON+probe Ql (Resp) [facility] - Chemistry and C hemistry - challengeOrdered By: Dr. De La Torre on 08-26-2022 ALP [Catalytic activity/Vol] 67 U/L 47-119 [facility] ALT [Catalytic activity/Vol] 17 U/L 13-56 [facility] CO2 [Moles/Vol] 27.0 mmol/L 21.0-32.0 [facility] Globulin (S) [Mass/Vol] 4.4 g/dL 2.2-4.2 [facility] Urea nitrogen/Creatinine [Mass ratio] 11.1 mg/mg 10-20 [facility] - Hematology and Cell countsOrdered By: Dr. De La Torre on 08-26-2022 Erythrocyte distribution width (RBC) [Entitic vol] 36.5 fL 35.1-43.9 [facility] Erythrocyte distribution width (RBC) [Ratio] 11.7 % 11.6-14.6 [facility] Immature granulocytes/100 WBC (Bld) 0.300 % 0.0-0.9 [facility] Comment on above: IG% - Immature Granu locytes (promyelocytes, myelocytes and metamyelocytes) > 1% indicates that a LEFT SHIFT is Present. MCH (RBC) [Entitic mass] 29.0 pg 25.0-35.0 [facility] Nucleated RBC/100 WBC (Bld) [Ratio] 0 % 0-5 [facility] MCHC Auto (RBC) [Mass/Vol]Or dered By: Dr. De La Torre on 08-26-2022 MCHC (RBC) [Mass/Vol] 33.7 g/dL 32-36 [facility] No Panel InformationOrdered By: Dr. De La Torre on 08-26-2022 Estimated Creatinine Clearance Calc 106.31 ml/min [facility] Estimated GFR (MDRD) Amer [facility] Comment on above: Test not performedAf rican [place]raini GFR Calc Estimated GFR (MDRD) Non-Af [facility] Comment on above: Test not performedNo n- GFR Calc Platelets bldOrdered By: Dr. De La Torre on 08-26-2022 Platelets (Bld) [#/Vol] 305 10*3/uL 150-450 [facility] ROUTINE FLU A/B + RSVon FLUAV RNA JAIRON+probe Ql (Unsp spec) Negative Negative for Influenza A by RT-PCR [facility] FLUBV RNA JAIRON+probe Ql (Unsp spec) Negative Negative for Influenza B by RT-PCR [facility] RSV A RNA JAIRON+probe Ql (Unsp spec) Negative Negative for Respiratory Syncytial Virus (RSV) by PCR [facility] Serum heterophile antibody d etectionOrdered By: Dr. De La Torre on 08-26-2022 Heterophile Ab Ql (S) Negative Negative [facility] Serum or plasma albumin vel urement (mass/volume)Ordered By: Dr. De La Torre on 08-26-2022 Albumin [Mass/Vol] 4.0 g/dL 3.2-5.0 [facility] Serum or plasma albumin/glob ulin mass ratioOrdered By: Dr. De La Torre on 08-26-2022 Albumin/Globulin [Mass ratio] 0.9 {ratio} 0.9-2.4 [facility] Serum or plasma calcium vel urement (mass/volume)Ordered By: Dr. De La Torre on 08-26-2022 Calcium [Mass/Vol] 9.3 mg/dL 8.5-10.1 [facility] Serum or plasma creatinine m easurement (mass/volume)Ordered By: Dr. De La Torre on 08-26-2022 Creatinine [Mass/Vol] 0.81 mg/dL 0.55-1.02 [facility] Comment on above: The validity of the calculated GFR & GFRAA in patients over 70 years has not been determined. Clinical correlation is essential. Serum or plasma urea nitroge n measurement (mass/volume)Ordered By: Dr. De La Torre on 08-26-2022 Urea nitrogen [Mass/Vol] 9 mg/dL 7-18 [facility] Thin prep Papanicolaou smear with manual screeningOrdered By: Dr. De La Torre on 08-26-2022 Thin prep Papanicolaou smear with manual screening 17 U/L 15-37 [facility] Thin prep Papanicolaou smear with manual screening 7 5-15 [facility] STREP A MOLECULAR (POC)on Procedural Control Valid [facility] Strep A (POCT) Negative Negative [facility] UA DIP, URINE (POC)on 2021 BILIRUBIN UA (POCT) Small Abnormal Negative [facility] CLARITY UA (POCT) Clear [facility] COLOR UA (POCT) Yellow [facility] GLUCOSE UA (POCT) Negative Negative mg/dL [facility] HEMOGLOBIN/BLOOD UA (POCT) Negative Negative [facility] KETONE UA (POCT) Negative Negative mg/dL [facility] LEUKOCYTES UA (POCT) Negative Negative [facility] NITRITE UA (POCT) Negative Negative [facility] PH UA (POCT) 5.5 4.5 - 8.0 [facility] Protein Ql (U) Trace Abnormal Negative mg/dL [facility] SPECIFIC GRAVITY UA (POCT) >=1.030 1.005 - 1.030 [facility] UROBILINOGEN UA (POCT) 0.2 E.U./dL Normal E.U./ dL [facility] Influenza virus A and B and SARS-CoV-2 (COVID-19) Ag panel - Upper respiratory specim SARS-CoV-2 (COVID-19) RNA JAIRON+probe Ql (Resp) [facility] Work Phone: Vital Signs Date Time Vital Sign Value Performing Clinician Facility 02-05-2025 12:06-0400 Body temperature 98.2 [degF] Dr. Mitzy Fung MD Work Phone: [facility] 02-05-2025 12:06-0400 Diastolic blood pressure 74 mm[Hg] Dr. Mitzy Fung MD Work Phone: [facility] 02-05-2025 12:06-0400 Heart rate 78 /min Dr. Mitzy Fung MD Work Phone: 3(332)149-915486 [place] [address] 02-05-2025 12:06-0400 Respiratory rate 16 /min Dr. Mitzy Fung MD Work Phone: 2(760)467-083586 [place] [address] 02-05-2025 12:06-0400 SaO2% (BldA) [Mass fraction] 97 % Dr. Mitzy Fung MD Work Phone: 9(462)113-319186 [place] [address] 02-05-2025 12:06-0400 Systolic blood pressure 122 mm[Hg] Dr. Mitzy Fung MD Work Phone: 7(943)980-161886 [place] [address] 02-05-2025 09:26-0400 Body height 162.[address] Mitzy Fung MD Work Phone: 0(547)050-440986 [place] [address] 02-05-2025 09:26-0400 Body mass index (BMI) [Percentile] Per age and sex 43.8 % Dr. Mitzy Fung MD Work Phone: 8(445)586-131986 [place] [address] 02-05-2025 09:26-0400 Body mass index (BMI) [Ratio] 21.2 kg/m2 Dr. Mitzy Fung MD Work Phone: 7(266)124-773686 [place] [address] 02-05-2025 09:26-0400 Body weight 56.[address] Mitzy Fung MD Work Phone: 4(209)985-403786 [place] [address] 01-23-2025 11:04-0400 Body temperature 98 [degF] Dr. Mitzy Fung MD Work Phone: 9(281)778-857886 [place] [address] 01-23-2025 11:04-0400 Diastolic blood pressure 71 mm[Hg] Dr. Mitzy Fung MD Work Phone: 7(139)772-024686 [place] [address] 01-23-2025 11:04-0400 Heart rate 98 /min Dr. Mitzy Fung MD Work Phone: 4(685)560-677586 [place] [address] 01-23-2025 11:04-0400 Respiratory rate 19 /min Dr. Mitzy Fung MD Work Phone: 8(999)659-637586 [place] [address] 01-23-2025 11:04-0400 SaO2% (BldA) [Mass fraction] 1 % Dr. Mitzy Fung MD Work Phone: 7(241)820-567686 [place] [address] 01-23-2025 11:04-0400 Systolic blood pressure 140 mm[Hg] Dr. Mitzy Fung MD Work Phone: 7(254)233-771386 [place] [address] 01-23-2025 09:19-0400 Body height [address] Mitzy Fung MD Work Phone: 8(830)139-314786 [place] [address] 01-23-2025 09:19-0400 Body mass index (BMI) [Percentile] Per age and sex 46.5 % Dr. Mitzy Fung MD Work Phone: 1(635)043-424086 [place] [address] 01-23-2025 09:19-0400 Body mass index (BMI) [Ratio] 21.4 kg/m2 Dr. Mitzy Fung MD Work Phone: 7(825)620-075286 [place] [address] 01-23-2025 09:19-0400 Body weight 58.[address] Mitzy Fung MD Work Phone: 4(753)761-353786 [place] [address] 01-20-2025 19:00-0400 Body temperature 98 [degF] Dr. Mitzy Fung MD Work Phone: 0(007)738-250186 [place] [address] 01-20-2025 19:00-0400 Diastolic blood pressure 57 mm[Hg] Dr. Mitzy Fung MD Work Phone: 5(657)982-423086 [place] [address] 01-20-2025 19:00-0400 Heart rate 69 /min Dr. Mitzy Fung MD Work Phone: 8(729)981-265986 [place] [address] 01-20-2025 19:00-0400 Respiratory rate 18 /min Dr. Mitzy Fung MD Work Phone: 5(464)671-994986 [place] [address] 01-20-2025 19:00-0400 SaO2% (BldA) [Mass fraction] 100 % Dr. Mitzy Fung MD Work Phone: 5(526)059-722686 [place] [address] 01-20-2025 19:00-0400 Systolic blood pressure 116 mm[Hg] Dr. Mitzy Fung MD Work Phone: 3(047)515-987786 [place] [address] 01-20-2025 15:24-0400 Body height 165.[address] Mitzy Fung MD Work Phone: 9(776)657-731286 [place] [address] 01-20-2025 15:24-0400 Body mass index (BMI) [Percentile] Per age and sex 52.6 % Dr. Mitzy Fung MD Work Phone: [facility] 01-20-2025 15:24-0400 Body mass index (BMI) [Ratio] 21.9 kg/m2 Dr. Mitzy Fung MD Work Phone: [facility] 01-20-2025 15:24-0400 Body weight 59.[address] Mitzy Fung MD Work Phone: [facility] 08-27-2024 11:54-0500 Body mass index (BMI) [Ratio] 21.08 kg/m2 Jasmin Praisler-Wood DELIVERY TRUCK DRIVER.L[employer] ASSORTER Work Phone: [facility] 08-27-2024 11:54-0500 Body temperature 98.4 [degF] Jasmin Praisler-Wood DELIVERY TRUCK DRIVER.L[employer] ASSORTER Work Phone: [facility] 08-27-2024 11:54-0500 Body weight 57.1 kg Jasmin Praisler-Wood DELIVERY TRUCK DRIVER.L[employer] ASSORTER Work Phone: [facility] 08-27-2024 11:54-0500 Diastolic blood pressure 78 mm[Hg] Jasmin Praisler-Wood DELIVERY TRUCK DRIVER.L[employer] ASSORTER Work Phone: [facility] 08-27-2024 11:54-0500 Heart rate 106 /min Jasmin Praisler-Wood DELIVERY TRUCK DRIVER.L[employer] ASSORTER Work Phone: [facility] 08-27-2024 11:54-0500 Respiratory rate 20 /min Jasmin Praisler-Wood DELIVERY TRUCK DRIVER.L[employer] ASSORTER Work Phone: [facility] 08-27-2024 11:54-0500 SaO2% (BldA) [Mass fraction] 97 % Jasmin Praisler-Wood DELIVERY TRUCK DRIVER.L[employer] ASSORTER Work Phone: [facility] 08-27-2024 11:54-0500 Systolic blood pressure 110 mm[Hg] Jasmin Praisler-Wood DELIVERY TRUCK DRIVER.LENS ASSORTER Work Phone: [facility] 01-26-2024 16:26-0400 Body temperature 97.9 [degF] Martínez Moomaw DELIVERY TRUCK DRIVER.LENS ASSORTER Work Phone: [facility] 01-26-2024 16:26-0400 Body weight 60 kg Martínez Moomaw DELIVERY TRUCK DRIVER.LENS ASSORTER Work Phone: [facility] 01-26-2024 16:26-0400 Diastolic blood pressure 60 mm[Hg] Martínez Moomaw DELIVERY TRUCK DRIVER.LENS ASSORTER Work Phone: [facility] 01-26-2024 16:26-0400 Heart rate 80 /min Martínez Moomaw DELIVERY TRUCK DRIVER.LENS ASSORTER Work Phone: [facility] 01-26-2024 16:26-0400 Respiratory rate 16 /min Martínez Moomaw DELIVERY TRUCK DRIVER.L[employer] ASSORTER Work Phone: [facility] 01-26-2024 16:26-0400 SaO2% (BldA) [Mass fraction] 99 % Martínez Moomaw DELIVERY TRUCK DRIVER.LENS ASSORTER Work Phone: [facility] 01-26-2024 16:26-0400 Systolic blood pressure 102 mm[Hg] Martínez Moomaw DELIVERY TRUCK DRIVER.L[employer] ASSORTER Work Phone: [facility] 12-29-2023 16:49-0400 Body temperature 97.3 [degF] Jasmin Praisler-Wood DELIVERY TRUCK DRIVER.L[employer] ASSORTER Work Phone: [facility] 12-29-2023 16:49-0400 Body weight 58.6 kg Jasmin Praisler-Wood DELIVERY TRUCK DRIVER.L[employer] ASSORTER Work Phone: [facility] 12-29-2023 16:49-0400 Diastolic blood pressure 79 mm[Hg] Jasmin Praisler-Wood DELIVERY TRUCK DRIVER.L[employer] ASSORTER Work Phone: [facility] 12-29-2023 16:49-0400 Heart rate 94 /min Jasmin Praisler-Wood DELIVERY TRUCK DRIVER.L[employer] ASSORTER Work Phone: [facility] 12-29-2023 16:49-0400 Respiratory rate 18 /min Jasmin Praisler-Wood DELIVERY TRUCK DRIVER.L[employer] ASSORTER Work Phone: [facility] 12-29-2023 16:49-0400 SaO2% (BldA) [Mass fraction] 100 % Jasmin Mina DELIVERY TRUCK DRIVER.LENS ASSORTER Work Phone: [facility] 12-29-2023 16:49-0400 Systolic blood pressure 129 mm[Hg] Jasmin Barbara-Paulo DELIVERY TRUCK DRIVER.LENS ASSORTER Work Phone: [facility] 12-24-2023 09:16-0400 Body temperature 99 [degF] [facility] 12-24-2023 09:16-0400 Diastolic blood pressure 88 mm[Hg] [facility] 12-24-2023 09:16-0400 Heart rate 58 /min [facility] 12-24-2023 09:16-0400 Respiratory rate 16 /min [facility] 12-24-2023 09:16-0400 SaO2% (BldA) [Mass fraction] 100 % [facility] 12-24-2023 09:16-0400 Systolic blood pressure 121 mm[Hg] [facility] 12-24-2023 07:12-0400 Body height 165.1 cm [facility] 12-24-2023 07:12-0400 Body mass index (BMI) [Percentile] Per age and sex 46.6 % [facility] 12-24-2023 07:12-0400 Body mass index (BMI) [Ratio] 21.2 kg/m2 [facility] 12-24-2023 07:12-0400 Body weight 58 kg [facility] 11-14-2023 18:27-0400 Body temperature 98.4 [degF] [facility] 11-14-2023 18:27-0400 Diastolic blood pressure 59 mm[Hg] [facility] 11-14-2023 18:27-0400 Heart rate 77 /min [facility] 11-14-2023 18:27-0400 Respiratory rate 16 /min [facility] 11-14-2023 18:27-0400 SaO2% (BldA) [Mass fraction] 100 % [facility] 11-14-2023 18:27-0400 Systolic blood pressure 113 mm[Hg] [facility] 11-14-2023 13:07-0400 Body height 165.1 cm [facility] 11-14-2023 13:07-0400 Body mass index (BMI) [Percentile] Per age and sex 60.1 % [facility] 11-14-2023 13:07-0400 Body mass index (BMI) [Ratio] 22.3 kg/m2 [facility] 11-14-2023 13:07-0400 Body weight 60.8 kg [facility] 11-14-2023 12:40-0400 Body temperature 97.5 [degF] Loni Escobar APRN.LENS ASSORTER Work Phone: [facility] 11-14-2023 12:40-0400 Body weight 60.9 kg Loni Escobar APRN.LENS ASSORTER Work Phone: [facility] 11-14-2023 12:40-0400 Diastolic blood pressure 62 mm[Hg] Loni Escobar APRN.LENS ASSORTER Work Phone: [facility] 11-14-2023 12:40-0400 Heart rate 74 /min Loni Escobar APRN.LENS ASSORTER Work Phone: [facility] 11-14-2023 12:40-0400 Respiratory rate 21 /min Loni Escobar APRN.LENS ASSORTER Work Phone: [facility] 11-14-2023 12:40-0400 SaO2% (BldA) [Mass fraction] 99 % Loni Escobar APRN.LENS ASSORTER Work Phone: [facility] 11-14-2023 12:40-0400 Systolic blood pressure 120 mm[Hg] Loni Escobar APRN.LENS ASSORTER Work Phone: [facility] 10-30-2023 16:02-0500 Body temperature 97.81 [degF] Lillian Sanchez APRN.LENS ASSORTER Work Phone: [facility] 10-30-2023 16:02-0500 Body weight 58.8 kg Lillian Sanchez APRN.LENS ASSORTER Work Phone: [facility] 10-30-2023 16:02-0500 Diastolic blood pressure 74 mm[Hg] Lillian Sanchez DELIVERY TRUCK DRIVER.L[employer] ASSORTER Work Phone: [facility] 10-30-2023 16:02-0500 Heart rate 102 /min Lillian Sanchez DELIVERY TRUCK DRIVER.LENS ASSORTER Work Phone: [facility] 10-30-2023 16:02-0500 Respiratory rate 18 /min Lillian Sanchez DELIVERY TRUCK DRIVER.LENS ASSORTER Work Phone: [facility] 10-30-2023 16:02-0500 SaO2% (BldA) [Mass fraction] 99 % Lillian Sanchez DELIVERY TRUCK DRIVER.LENS ASSORTER Work Phone: [facility] 10-30-2023 16:02-0500 Systolic blood pressure 114 mm[Hg] Lillian Sanchez DELIVERY TRUCK DRIVER.LENS ASSORTER Work Phone: [facility] 09-25-2023 05:12-0500 Body temperature 98 [degF] [facility] 09-25-2023 05:12-0500 Diastolic blood pressure 83 mm[Hg] [facility] 09-25-2023 05:12-0500 Heart rate 72 /min [facility] 09-25-2023 05:12-0500 Respiratory rate 18 /min [facility] 09-25-2023 05:12-0500 SaO2% (BldA) [Mass fraction] 99 % [facility] 09-25-2023 05:12-0500 Systolic blood pressure 129 mm[Hg] [facility] 09-25-2023 04:30-0500 Body height 165.1 cm [facility] 09-25-2023 04:30-0500 Body mass index (BMI) [Percentile] Per age and sex 59.5 % [facility] 09-25-2023 04:30-0500 Body mass index (BMI) [Ratio] 22.2 kg/m2 [facility] 09-25-2023 04:30-0500 Body weight 60.7 kg [facility] 07-28-2023 18:54-0500 Body temperature 98.1 [degF] Ivonne Dawson DELIVERY TRUCK DRIVER.LENS ASSORTER Work Phone: [facility] 07-28-2023 18:54-0500 Body weight 59.78 kg Ivonne Dawson DELIVERY TRUCK DRIVER.LENS ASSORTER Work Phone: [facility] 07-28-2023 18:54-0500 Diastolic blood pressure 70 mm[Hg] Ivonne Dawson DELIVERY TRUCK DRIVER.LENS ASSORTER Work Phone: [facility] 07-28-2023 18:54-0500 Heart rate 83 /min Ivonne Dawson DELIVERY TRUCK DRIVER.LENS ASSORTER Work Phone: [facility] 07-28-2023 18:54-0500 Respiratory rate 16 /min Ivonne Dawson DELIVERY TRUCK DRIVER.LENS ASSORTER Work Phone: [facility] 07-28-2023 18:54-0500 SaO2% (BldA) [Mass fraction] 100 % Ivonne Dawson DELIVERY TRUCK DRIVER.LENS ASSORTER Work Phone: [facility] 07-28-2023 18:54-0500 Systolic blood pressure 102 mm[Hg] Ivonne Dawson DELIVERY TRUCK DRIVER.LENS ASSORTER Work Phone: [facility] 07-04-2023 09:16-0500 Body mass index (BMI) [Percentile] Per age and sex 78.9 % [facility] 07-04-2023 09:16-0500 Body mass index (BMI) [Ratio] 24.5 kg/m2 [facility] 07-04-2023 09:16-0500 Body temperature 98.2 [degF] [facility] 07-04-2023 09:16-0500 Body weight 64.7 kg [facility] 07-04-2023 09:16-0500 Diastolic blood pressure 109 mm[Hg] [facility] 07-04-2023 09:16-0500 Heart rate 114 /min [facility] 07-04-2023 09:16-0500 Respiratory rate 23 /min [facility] 07-04-2023 09:16-0500 SaO2% (BldA) [Mass fraction] 98 % [facility] 07-04-2023 09:16-0500 Systolic blood pressure 123 mm[Hg] [facility] 02-04-2023 21:31-0400 Body height 167.64 cm [facility] 02-04-2023 21:31-0400 Body mass index (BMI) [Percentile] Per age and sex 62.8 % [facility] 02-04-2023 21:31-0400 Body mass index (BMI) [Ratio] 22.3 kg/m2 [facility] 02-04-2023 21:31-0400 Body temperature 99.5 [degF] [facility] 02-04-2023 21:31-0400 Body weight 62.7 kg [facility] 02-04-2023 21:31-0400 Diastolic blood pressure 70 mm[Hg] [facility] 02-04-2023 21:31-0400 Heart rate 108 /min [facility] 02-04-2023 21:31-0400 Respiratory rate 18 /min [facility] 02-04-2023 21:31-0400 SaO2% (BldA) [Mass fraction] 99 % [facility] 02-04-2023 21:31-0400 Systolic blood pressure 108 mm[Hg] [facility] 11-28-2022 18:28-0400 Respiratory rate 18 /min [facility] 11-28-2022 14:19-0400 Body height 162.56 cm [facility] 11-28-2022 14:19-0400 Body mass index (BMI) [Percentile] Per age and sex 63.5 % [facility] 11-28-2022 14:19-0400 Body mass index (BMI) [Ratio] 22.3 kg/m2 [facility] 11-28-2022 14:19-0400 Body temperature 98 [degF] [facility] 11-28-2022 14:19-0400 Body weight 58.96 kg [facility] 11-28-2022 14:19-0400 Diastolic blood pressure 85 mm[Hg] [facility] 11-28-2022 14:19-0400 Heart rate 96 /min [facility] 11-28-2022 14:19-0400 SaO2% (BldA) [Mass fraction] 100 % [facility] 11-28-2022 14:19-0400 Systolic blood pressure 129 mm[Hg] [facility] 11-18-2022 04:39-0400 Body temperature 98.2 [degF] [facility] 11-18-2022 04:39-0400 Diastolic blood pressure 68 mm[Hg] [facility] 11-18-2022 04:39-0400 Heart rate 79 /min [facility] 11-18-2022 04:39-0400 Respiratory rate 16 /min [facility] 11-18-2022 04:39-0400 SaO2% (BldA) [Mass fraction] 98 % [facility] 11-18-2022 04:39-0400 Systolic blood pressure 108 mm[Hg] [facility] 11-18-2022 01:45-0400 Body height 162.56 cm [facility] 11-18-2022 01:45-0400 Body mass index (BMI) [Percentile] Per age and sex 70.1 % [facility] 11-18-2022 01:45-0400 Body mass index (BMI) [Ratio] 23 kg/m2 [facility] 11-18-2022 01:45-0400 Body temperature 98.7 [degF] [facility] 11-18-2022 01:45-0400 Body weight 60.9 kg [facility] 11-18-2022 01:45-0400 Heart rate 93 /min [facility] 11-18-2022 01:45-0400 Respiratory rate 17 /min [facility] 11-18-2022 01:45-0400 SaO2% (BldA) [Mass fraction] 96 % [facility] 11-18-2022 01:41-0400 Diastolic blood pressure 65 mm[Hg] [facility] 11-18-2022 01:41-0400 Systolic blood pressure 103 mm[Hg] [facility] 11-12-2022 12:56-0400 Body temperature 96.9 [degF] [facility] 11-12-2022 12:56-0400 Diastolic blood pressure 62 mm[Hg] [facility] 11-12-2022 12:56-0400 Heart rate 74 /min [facility] 11-12-2022 12:56-0400 Respiratory rate 16 /min [facility] 11-12-2022 12:56-0400 SaO2% (BldA) [Mass fraction] 98 % [facility] 11-12-2022 12:56-0400 Systolic blood pressure 105 mm[Hg] [facility] 11-12-2022 09:49-0400 Body height 167.64 cm [facility] 11-12-2022 09:49-0400 Body mass index (BMI) [Percentile] Per age and sex 48.5 % [facility] 11-12-2022 09:49-0400 Body mass index (BMI) [Ratio] 21 kg/m2 [facility] 11-12-2022 09:49-0400 Body weight 59.2 kg [facility] 08-26-2022 11:28-0500 Respiratory rate 20 /min [facility] 08-26-2022 09:51-0500 Body height 167.64 cm [facility] Work Phone: 08-26-2022 09:51-0500 Body mass index (BMI) [Percentile] Per age and sex 58.1 % [facility] 08-26-2022 09:51-0500 Body mass index (BMI) [Ratio] 21.7 kg/m2 [facility] 08-26-2022 09:51-0500 Body temperature 97.4 [degF] [facility] 08-26-2022 09:51-0500 Body weight 61.23 kg [facility] 08-26-2022 09:51-0500 Diastolic blood pressure 86 mm[Hg] [facility] 08-26-2022 09:51-0500 Heart rate 106 /min [facility] 08-26-2022 09:51-0500 SaO2% (BldA) [Mass fraction] 99 % [facility] 08-26-2022 09:51-0500 Systolic blood pressure 121 mm[Hg] [facility] 08-25-2022 16:19-0500 Body temperature 100.09 [degF] Moe Simons MD Work Phone: [facility] 08-25-2022 16:19-0500 Body weight 58.06 kg Moe Simons MD Work Phone: [facility] 08-25-2022 16:19-0500 Diastolic blood pressure 86 mm[Hg] Moe Simons MD Work Phone: [facility] 08-25-2022 16:19-0500 Heart rate 109 /min Moe Simons MD Work Phone: [facility] 08-25-2022 16:19-0500 Respiratory rate 18 /min Moe Simons MD Work Phone: [facility] 08-25-2022 16:19-0500 SaO2% (BldA) [Mass fraction] 100 % Moe Simons MD Work Phone: [facility] 08-25-2022 16:19-0500 Systolic blood pressure 120 mm[Hg] Moe Simons MD Work Phone: [facility] 06-24-2022 08:19-0400 Body temperature 97.9 [degF] Gus Pendlebury DELIVERY TRUCK DRIVER.LENS ASSORTER Work Phone: [facility] 06-24-2022 08:19-0400 Body weight 61.33 kg Gus Pendlebury DELIVERY TRUCK DRIVER.LENS ASSORTER Work Phone: [facility] 06-24-2022 08:19-0400 Diastolic blood pressure 76 mm[Hg] Gus Pendlebury DELIVERY TRUCK DRIVER.LENS ASSORTER Work Phone: [facility] 06-24-2022 08:19-0400 Heart rate 101 /min Gus Pendlebury DELIVERY TRUCK DRIVER.LENS ASSORTER Work Phone: [facility] 06-24-2022 08:19-0400 Respiratory rate 16 /min Gus Pendlebury DELIVERY TRUCK DRIVER.LENS ASSORTER Work Phone: [facility] 06-24-2022 08:19-0400 SaO2% (BldA) [Mass fraction] 98 % Gus Pendlebury DELIVERY TRUCK DRIVER.LENS ASSORTER Work Phone: [facility] 06-24-2022 08:19-0400 Systolic blood pressure 124 mm[Hg] [facility]IVER.LENS ASSORTER Work Phone: [facility] 01-17-2022 13:00-0400 Body temperature 97.7 [degF] [facility] DELIVERY TRUCK DRIVER.LENS ASSORTER Work Phone: [facility] 01-17-2022 13:00-0400 [facility].LENS ASSORTER Work Phone: [facility] 01-17-2022 13:00-0400 Diastolic blood pressure 60 mm[Hg] [facility] DELIVERY TRUCK DRIVER.LENS ASSORTER Work Phone: [facility] 01-17-2022 13:00-0400 Heart rate 90 /min [facility] DELIVERY TRUCK DRIVER.LENS ASSORTER Work Phone: [facility] 01-17-2022 13:00-0400 Respiratory rate 16 /min [facility] DELIVERY TRUCK DRIVER.LENS ASSORTER Work Phone: [facility] 01-17-2022 13:00-0400 SaO2% (BldA) [Mass fraction] 99 % [facility] DELIVERY TRUCK DRIVER.LENS ASSORTER Work Phone: [facility] 01-17-2022 13:00-0400 Systolic blood pressure 114 mm[Hg] [facility] DELIVERY TRUCK DRIVER.LENS ASSORTER Work Phone: [facility] Encounters Encounter Date Encounter Type Care Provider Facility Start: 02-05-2025 End: 02-05-2025 Emergency department patient visit Dr. Mitzy Fung MD Work Phone: -Emergency Department Work Phone: Start: 01-23-2025 End: 01-23-2025 Emergency department patient visit Dr. Mitzy Fung MD Work Phone: -Emergency Department Work Phone: Start: 01-20-2025 End: 01-20-2025 Emergency department patient visit Dr. Mitzy Fung MD Work Phone: -Emergency Department Work Phone: Start: 09-07-2024 End: 09-07-2024 Subsequent hospital visit by physician Lois Conde MD Work Phone: [facility] Comment on above: Weight loss; Family history of type 2 diabetes mellitus Start: 09-07-2024 End: 09-07-2024 ambulatory [facility] Start: 08-29-2024 End: 08-29-2024 ambulatory [facility] Start: 08-29-2024 End: 08-29-2024 ambulatory [facility] Facility:[facility] Start: 08-27-2024 End: 08-27-2024 ambulatory [facility] Facility:[facility] Start: 08-27-2024 End: 08-27-2024 Patient encounter procedure Jasmin Enriquez APRN.LENS ASSORTER Work Phone: [place] [facility] Comment on above: Sore throat (Primary Dx); Pharyngitis, unspecified etiology; Wheezing; Viral URI with cough; Bronchitis Start: 06-15-2024 End: 06-15-2024 [facility] Facility:[facility] Start: 04-24-2024 End: 04-26-2024 Evaluation and management of inpatient NATANAEL WATKINSSANA Facility:[id number] Start: 04-23-2024 End: 04-24-2024 Emergency department patient visit Mitzy Waller Chambers Facility:[facility] Start: 04-20-2024 End: 04-20-[address] [facility] Start: 2024 End: 2024 Emergency department patient visit [facility] Facility:[facility] Start: 04-12-2024 End: 04-12-2024 Emergency department patient visit [facility] Facility:[facility] Start: 03-02-2024 ambulatory [facility] Facility: [facility] Start: 01-26-2024 End: 01-26-2024 ambulatory [facility] Facility:[facility] Start: 01-26-2024 End: 01-26-2024 Patient encounter procedure Martínez Lyles APRN.LENS ASSORTER Work Phone: [place] [facility] Comment on above: Ear pain, right (Tanya sadiq Dx) Start: 12-29-2023 End: 12-29-2023 ambulatory [facility] Facility:[facility] Start: 12-29-2023 End: 12-29-2023 Patient encounter procedure Jasmin Enriquez APRN.LENS ASSORTER Work Phone: [facility] Comment on above: Burning with urinati on (Primary Dx); Otalgia of right ear Start: 12-24-2023 End: 12-24-2023 Admission to same day surgery center [facility] Start: 12-24-2023 End: 12-24-2023 ambulatory [facility] Work Phone: Start: 11-14-2023 End: 11-14-2023 Emergency department patient visit [facility] Work Phone: Start: 11-14-2023 End: 11-14-2023 [facility] Facility:[facility] Start: 11-14-2023 End: 11-14-2023 Patient encounter procedure Loni Escobar APRN.LENS ASSORTER Work Phone: [place] [facility] Comment on above: Pain in pelvis (Prim vivien Dx); Flank pain Start: 10-31-2023 Telephone encounter Moe Vines MD Work Phone: [place] [facility] Comment on above: Results (Prince +) Start: 10-30-2023 End: 10-30-2023 [facility] Facility:[facility] Start: 10-30-2023 End: 10-30-2023 Patient encounter procedure Lillian Sanchez DELIVERY TRUCK DRIVER.LENS ASSORTER Work Phone: [facility] Comment on above: Dysuria (Primary Dx) Start: 09-25-2023 End: 09-25-2023 Emergency department patient visit [facility] Work Phone: Start: 08-02-2023 End: 08-02-2023 Nursing evaluation of patient and report Nurse [facility] Work Phone: [facility] [place] [facility] Comment on above: Urinary frequency (P rimary Dx) Start: 07-30-2023 Telephone encounter Lillian Barnes georgesasha DELIVERY TRUCK DRIVER.LENS ASSORTER Work Phone: [place] [facility] Comment on above: Results Start: 07-28-2023 End: 07-28-2023 Patient encounter procedure Ivonne Dawson DELIVERY TRUCK DRIVER.LENS ASSORTER Work Phone: [facility] Comment on above: Urinary frequency (P rimary Dx) Start: 07-04-2023 End: 07-04-2023 Emergency department patient visit [facility] Work Phone: Start: 03-27-2023 End: 03-27-2023 ambulatory [facility] Work Phone: Start: 03-27-2023 End: 03-27-2023 Patient encounter procedure [facility] Work Phone: Start: 03-19-2023 End: 03-19-2023 ambulatory [facility] Work Phone: Start: 03-19-2023 End: 03-19-2023 Patient encounter procedure [facility] Work Phone: Start: 02-04-2023 End: 02-04-2023 Emergency department patient visit [facility] Start: 12-01-2022 End: 12-01-2022 Patient encounter procedure [facility] Start: 11-28-2022 End: 11-28-2022 Emergency department patient visit [facility] Start: 11-24-2022 End: 11-24-2022 Subsequent hospital visit by physician Codi Lemus DELIVERY TRUCK DRIVER-LENS ASSORTER Work Phone: [facility] Comment on above: Hirsutism; Irregular menses Start: 11-18-2022 End: 11-18-2022 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 surgery center [facility]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 Start: 11-18-2022 End: 11-18-2022 ambulatory [facility] Work Phone: Start: 11-12-2022 End: 11-12-2022 Emergency department patient visit [facility]Emergency [facility] Start: 11-10-2022 End: 11-10-2022 ambulatory [facility] Work Phone: Start: 11-10-2022 End: 11-10-2022 Patient encounter procedure [facility]-Cat Scan, [facility] Start: 08-26-2022 Telephone encounter Jasmin castilloPaulo DELIVERY TRUCK DRIVER.LENS ASSORTER Work Phone: [facility] [place] [facility] Comment on above: Results Start: 08-26-2022 End: 08-26-2022 Emergency department patient visit [facility] Start: 08-25-2022 End: 08-25-2022 Patient encounter procedure Moe Simons MD Work Phone: [facility] [place] Comment on above: Sore throat (Primary Dx); Influenza-like illness Start: 06-25-2022 Telephone encounter Lillian Cameron ruffin DELIVERY TRUCK DRIVER.LENS ASSORTER Work Phone: [facility] Comment on above: Results, Lab Start: 06-24-2022 End: 06-24-2022 Patient encounter procedure Gus Munroe DELIVERY TRUCK DRIVER.LENS ASSORTER Work Phone: [facility] Comment on above: Urinary frequency (P rimary Dx) Start: 01-17-2022 End: 01-17-2022 Patient encounter procedure Gus Munroe DELIVERY TRUCK DRIVER.LENS ASSORTER Work Phone: [facility] Comment on above: Abdominal pain, unsp ecified abdominal location (Primary Dx); Acute sinusitis, recurrence not specified, unspecified location Start: 11-20-2006 Patient encounter status Gus Shaneka DELIVERY TRUCK DRIVER.LENS ASSORTER Work Phone: [facility] Work Phone: Procedures Date Procedure Procedure Detail Performing Clinician Start: 02-05-2025 Urnls dip stick/tabl et reagent auto microscopy Dr. Mitzy Fung MD Work Phone: Start: 02-05-[address] Mitzy Fung MD Work Phone: Start: 02-05-2025 Computed tomography of abdomen and pelvis with intravenous contrast Dr. Mitzy Fung MD Work Phone: Start: 01-23-2025 Urnls dip stick/tabl et reagent [...] 08-27-2024 STREP A MOLECULAR (POC) Loni Escobar DELIVERY TRUCK DRIVER.LENS ASSORTER Work Phone: Start: 12-29-2023 Urnls dip stick/tabl et rgnt auto w/o microscopy Senait Kraus PA-C Work Phone: Start: 12-24-2023 Pelvic examination u nder anesthesia Start: 11-14-2023 Urine culture Start: 11-14-2023 CT of abdomen and pe lvis without contrast Start: 11-14-2023 Urnls dip stick/tabl et rgnt auto w/o microscopy Lillian Sanchez DELIVERY TRUCK DRIVER.LENS ASSORTER Work Phone: Start: 10-30-2023 Urnls dip stick/tabl et rgnt auto w/o microscopy Jasmin Enriquez DELIVERY TRUCK DRIVER.LENS ASSORTER Work Phone: Start: 07-28-2023 Urnls dip stick/tabl [...] of thyroid stimulating hormone tsh Codi Lemus DELIVERY TRUCK DRIVER-LENS ASSORTER Work Phone: Start: 11-18-2022 Local destruction of [...] et rgnt auto w/o microscopy Gus Munroe DELIVERY TRUCK DRIVER.LENS ASSORTER Work Phone: Bacteria identificat ion test Bacteria identified in Urine by Culture SARS-CoV-2 & FLU Ant igen (Rapid) SARS-CoV-2 & FLU Ant igen (Rapid) Urine culture Urine culture Plan of Treatment Date Care Activity Detail Author Start: 04-28-2027 Tetanus Diphtheria a nd Pertussis Vaccines (7 - Td or Tdap) Tetanus Diphtheria and Pertussis Vaccines (7 - Td or Tdap) [facility] Start: 04-28-2027 Urine microalbumin profile DTa P,Tdap,Td Vaccine (7 - Td or Tdap) [facility] Start: 02-05-2025 [facility] Start: 01-23-2025 [facility] Start: 01-20-2025 [facility] Start: 04-24-2024 COVID-19 (2023-09 5 season) COVID-19 () [facility] Start: 04-24-2024 Covid-19 Vaccine ( season) Covid-19 Vaccine () [facility] Start: 04-24-2024 Influenza vaccination C [facility] Start: 2024 Pneumococcal vaccination Pneum ococcal Vaccine (1 of 2 - PCV) [facility] Start: 03-10-2024 Well Visit Well Visit [facility] Start: 12-24-2023 Patient discharge [facility] Start: 11-14-2023 [facility] Start: 11-14-2023 Bacteria identified in Urine by Culture [facility] Start: 11-14-2023 [facility] Start: 09-25-2023 [facility] Start: 08-24-2023 Behavioral Health Screening Behavioral Health Screening [facility] Start: 08-24-2023 Depression Assessment Depression Ass essment [facility] Start: 07-30-2023 End: 10-29-2023 Bacteria identified in Urine by Culture URINE CULTURE Microbiology Routine Urinary frequency Expected: 07/30/2023, Expires: 10/29/2023 [facility] Work Phone: Comment on above: Expected: 07/30/2023 , Expires: 10/29/2023 Start: 07-04-2023 [facility] Start: 04-24-2023 Covid-19 Vaccine ( season) Covid-19 Vaccine () [facility] Start: 04-24-2023 Influenza vaccination Influenza Vacc ine (#1) [facility] Start: 2023 Annual PCP Team Projection Printer hunter Disease Visit Annual PCP Team Chronic Disease Visit [facility] Start: 2023 Anxiety Screening Anxiety Screening [facility] Start: 2023 Chlamydia Screening (18-24) Chlamydia Screening (18-) [facility] Start: 2023 Depression Screening Depression Scre ening [facility] Start: 2023 GC (Gonorrhea) Scree rosa (18-24) GC (Gonorrhea) Screening (18-24) [facility] Start: 2023 Hearing Screening Hearing Screening [facility] Start: 2023 Hepatitis C Screening Hepatitis C [facility] Start: 2023 Hepatitis C screening Hepatitis C [facility] Start: 2023 HIV Screening HIV Screening [facility] Start: 2023 HIV screening HIV Screening [facility] Start: 2023 PATH Education 18+ Years PATH Education 18+ Years [facility] Start: 2023 Screening for Chlamy edilia trachomatis Chlamydia Screening () [facility] Start: 2023 Spirometry Spirometry [facility] Start: 11-28-2022 [facility] Start: 11-18-2022 Anesthesia intraperi toneal lower abd w/laps nos ANESTH SURG LOWER ABDOMEN [facility] Start: 11-18-2022 Laps surg w/aspir cavity/cyst single/multiple LAPAROSCOPY ASPIRATION [facility] Start: 11-18-2022 Ambulation without limitation [facility] Start: 11-18-2022 Catheterization of vein [facility] Start: 11-18-2022 Medical regimen orde rs management [facility] Start: 11-18-2022 Medication education [facility] Start: 11-18-2022 Notification of physician [facility] Start: 11-18-2022 Oxygen therapy [facility] Start: 11-18-2022 End: 11-18-2022 Patient discharge [facility] Start: 11-18-2022 Procedure discontinued [facility] Start: 11-18-2022 Taking patient vital signs [facility] Start: 11-18-2022 Vital signs measurements [facility] Start: 11-18-2022 [facility] Start: 11-18-2022 Local destruction of ovary Lap aroscopic, Ovarian Cystectomy (Right) [facility] Start: 11-18-2022 Verification routine [facility] Start: 11-18-2022 Admission procedure [facility] Start: 11-18-2022 [facility] Start: 08-26-2022 [facility] Start: 08-24-2022 Depression Assessment Depression Ass essment [facility] Start: 04-26-2022 Well Visit Well Visit [facility] Start: 04-24-2022 FLU (#1) FLU (#1) [facility] Start: 04-24-2022 Influenza vaccination INFLUENZA (#1) [facility] Start: 10-21-2021 COVID-19 VACCINE (3 - Booster for Pfizer series) COVID-19 VACCINE (3 - Booster for Pfizer series) [facility] Start: 07-17-2021 COVID-19 (3 - Booste r for Pfizer series) COVID-19 (3 - Booster for Pfizer series) [facility] Start: 07-17-2021 COVID-19 VACCINE (3 - Booster for Pfizer series) COVID-19 VACCINE (3 - Booster for Pfizer series) [facility] Start: 05-24-2021 MenB (2 of 2 - MenB 2-Dose Series Bexsero) MenB (2 of 2 - MenB 2-Dose Series Bexsero) [facility] Start: 2021 MENINGOCOCCAL CONJUG ATE (1 - 2-dose series) MENINGOCOCCAL CONJUGATE (1 - 2-dose series) [facility] Start: 2020 CHLAMYDIA SCREENING (<18) CHLA MYDIA SCREENING (<18) [facility] Start: 2020 GC (GONORRHEA) SCREE ROSA (<18) GC (GONORRHEA) SCREENING (<18) [facility] Start: 2020 Hearing Screening Hearing Screening [facility] Start: 2020 PATH Education 15-17 + Years PATH Education 15-17+ Years [facility] Start: 2020 Vision Screening Vision Screening [facility] Start: 2019 PEDS TO ADULT TRANSI TION ANNUAL ASSESSMENT PEDS TO ADULT TRANSITION ANNUAL ASSESSMENT [facility] Start: 2017 Adult depression scr eening assessment DEPRESSION SCREENING [facility] Start: 2017 PATH Education 12-14 + Years PATH Education 12-14+ Years [facility] Start: 2017 PATH Transitional Assessment PATH Transitional Assessment [facility] Start: 2017 PEDS TO ADULT TRANSI TION INITIAL DISCUSSION PEDS TO ADULT TRANSITION INITIAL DISCUSSION [facility] Start: 2016 HPV VACCINE (1 - 2-d ose series) HPV VACCINE (1 - 2-dose series) [facility] Start: 2015 MENINGOCOCCAL B: Con respiratory tech based on risk (1 of 2 - Risk Bexsero 2-dose series) MENINGOCOCCAL B: Consider based on risk (1 of 2 - Risk Bexsero 2-dose series) [facility] Start: 2012 Urine microalbumin profile DTAP,TDAP ,TD (4 - Tdap) [facility] Start: 2011 PNEUMOCOCCAL (1 - PPSV23) PNEU MOCOCCAL (1 - PPSV23) [facility] Start: 2011 Pneumococcal vaccination [facility] Start: 2009 ASTHMA CONTROL TEST ASTHMA CONTROL T EST [facility] Start: 2009 MMR (2 of 2 - Standa rd series) MMR (2 of 2 - Standard series) [facility] Start: 2009 VARICELLA (2 of 2 - 2-dose childhood series) VARICELLA (2 of 2 - 2-dose childhood series) [facility] Start: 2007 ASTHMA ACTION PLAN ASTHMA ACTION VALERIE N [facility] Start: 2005 POLIO (1 of 3 - 4-do se series) POLIO (1 of 3 - 4-dose series) [facility] Bacteria identified in Urine by Culture URINE CULTURE Microbiology Routine Urinary frequency Ordered: 06/24/2022 [facility] Work Phone: Comment on above: Ordered: 06/24/2022 Bacteria identified in Urine by Culture Urine Culture [facility] Bacteria identified in Urine by Culture URINE CULTURE Microbiology Routine Urinary frequency 07/28/2023 7:38 PM EST [facility] Work Phone: Bacteria identified in Urine by Culture URINE CULTURE Microbiology Routine Dysuria Ordered: 10/30/2023 [facility] Work Phone: Comment on above: Ordered: 10/30/2023 Bacteria identified in Urine by Culture URINE CULTURE Microbiology Routine Burning with urination 12/29/2023 5:02 PM EDT [facility] Work Phone: BACTERIAL VAGINOSIS AMPLIFICATION BACTERIAL VAGINOSIS AMPLIFICATION Lab Routine Urinary frequency Ordered: 06/24/2022 [facility] Work Phone: Comment on above: Ordered: 06/24/2022 BACTERIAL VAGINOSIS NAAT BACTERI AL VAGINOSIS NAAT Lab Routine Dysuria Ordered: 10/30/2023 [facility] Work Phone: Comment on above: Ordered: 10/30/2023 PRINCE / TRICHOMONA S AMPLIFICATION PRINCE / TRICHOMONAS AMPLIFICATION Microbiology Routine Urinary frequency Ordered: 06/24/2022 [facility] Work Phone: Comment on above: Ordered: 06/24/2022 PRINCE/TRICHOMONAS NAAT PRINCE /TRICHOMONAS NAAT Lab Routine Dysuria Ordered: 10/30/2023 [facility] Work Phone: Comment on above: Ordered: 10/30/2023 COVID & INFLUENZA A/ B & RSV PCR, ROUTINE COVID & INFLUENZA A/B & RSV PCR, ROUTINE Microbiology Routine Viral URI with cough Ordered: 08/27/2024 [facility] Work Phone: Comment on above: Ordered: 08/27/2024 DHEA Sulfate DHEA Sulfate Lab Routine Hirsutism 11/24/2022 3:30 PM EDT [facility] Lactic acid measurement [facility] Patient Education [facility] Work Phone: Patient referral [facility] Work Phone: End: 11-24-2022 Sex Hormone Binding Globulin Sex Hormone Binding Globulin Lab Routine For lab collect this frequency defaults to the next routine lab draw time. Routine times: 0600; 1100; 1400; 1900; 2200 for 1 Occurrences starting 11/24/2022 until 11/24/2022 [facility] Work Phone: Comment on above: For lab collect this frequency defaults to the next routine lab draw time. Routine times: 0600; 1100; 1400; 1900; 2200 for 1 Occurrences starting 11/24/2022 until 11/24/2022 Sex Hormone Binding Globulin Sex Hormone Binding Globulin Lab Routine 11/24/2022 3:30 PM EDT [facility] Testosterone, free Testosterone, free Lab Routine Irregular menses 11/24/2022 3:30 PM EDT [facility] End: 09-07-2024 Transglutaminase IgA [facility] Work Phone: Comment on above: 1 Occurrences starti ng 09/07/2024 until 09/07/2024 [facility] Immunizations Immunization Date Immunization Notes Care Provider Mathew lopez 09-07-2024 influenza, seasonal, injectable, preservative free Lois Conde MD Work Phone: [facility] 03-10-2023 meningococcal B vacc ine, recombinant, OMV, adjuvanted Lois Conde MD Work Phone: [facility] 05-22-2021 PFIZER (purple cap) COVID-19, mRNA, LNP-S, 30mcg/0.3mL dose Denielle White DELIVERY TRUCK DRIVER-LENS ASSORTER Work Phone: [facility] 04-30-2021 influenza, injectabl e, quadrivalent, preservative free Denielle White DELIVERY TRUCK DRIVER-LENS ASSORTER Work Phone: [facility] 04-30-2021 PFIZER (purple cap) COVID-19, mRNA, LNP-S, 30mcg/0.3mL dose Denielle White DELIVERY TRUCK DRIVER-LENS ASSORTER Work Phone: [facility] 04-30-2021 influenza virus vacc ine, unspecified formulation Ivonne Dawson DELIVERY TRUCK DRIVER.LENS ASSORTER Work Phone: [facility] 04-26-2021 meningococcal B vacc ine, recombinant, OMV, adjuvanted Denielle White DELIVERY TRUCK DRIVER-LENS ASSORTER Work Phone: [facility] 04-26-2021 meningococcal polysaccharide (groups A, C, Y and W-135) diphtheria toxoid conjugate vaccine (MCV4P) Codi Lemus DELIVERY TRUCK DRIVER-[facility] Work Phone: [facility] 04-16-2020 hepatitis A vaccine, pediatric/adolescent dosage, 2 dose schedule Codi Lemus APRN-LENS ASSORTER Work Phone: [facility] 04-16-2020 Human Papillomavirus 9-valent vaccine Codi Lemus DELIVERY TRUCK DRIVER-[facility] Work Phone: [facility] 04-29-2018 hepatitis A vaccine, pediatric/adolescent dosage, 2 dose schedule Codi Lemus DELIVERY TRUCK DRIVER-[facility] Work Phone: [facility] 04-29-2018 Human Papillomavirus 9-valent vaccine Codi Lemus DELIVERY TRUCK DRIVER-[facility] Work Phone: [facility] 06-30-2017 influenza, injectabl e, quadrivalent, preservative free Codi Lemus DELIVERY TRUCK DRIVER-[facility] Work Phone: [facility] 04-28-2017 meningococcal polysaccharide (groups A, C, Y and W-135) diphtheria toxoid conjugate vaccine (MCV4P) Codi Lemus DELIVERY TRUCK DRIVER-[facility] Work Phone: [facility] 04-28-2017 tetanus toxoid, redu lorie diphtheria toxoid, and acellular pertussis vaccine, adsorbed Codi Lemus DELIVERY TRUCK DRIVER-[facility] Work Phone: [facility] 05-14-2015 influenza, live, intranasal, quadrivalent Jaradle Mariah DELIVERY TRUCK DRIVER-[facility] Work Phone: [facility] 05-10-2014 influenza, live, intranasal, quadrivalent Jaradle White DELIVERY TRUCK DRIVER-L[employer] ASSORTER Work Phone: [facility] 04-22-2012 influenza virus vacc ine, split virus (incl. purified surface antigen) Codi Lemus DELIVERY TRUCK DRIVER-[facility] Work Phone: [facility] 06-07-2010 influenza virus vacc ine, split virus (incl. purified surface antigen) Codi Lemus DELIVERY TRUCK DRIVER-LENS ASSORTER Work Phone: [facility] 05-10-2010 diphtheria, tetanus toxoids and acellular pertussis vaccine Denaishwarya Lemus DELIVERY TRUCK DRIVER-LENS ASSORTER Work Phone: [facility] 05-10-2010 influenza virus vacc ine, split virus (incl. purified surface antigen) Denaishwarya Lemus DELIVERY TRUCK DRIVER-LENS ASSORTER Work Phone: [facility] 05-10-2010 measles, mumps, rube lla, and varicella virus vaccine Denaishwarya Lemus DELIVERY TRUCK DRIVER-L[employer] ASSORTER Work Phone: [facility] 05-10-2010 poliovirus vaccine, inactivated Denaishwarya Lemus DELIVERY TRUCK DRIVER-L[employer] ASSORTER Work Phone: [facility] 11-26-2006 diphtheria, tetanus toxoids and acellular pertussis vaccine Gus Munroe DELIVERY TRUCK DRIVER.LENS ASSORTER Work Phone: [facility] Work Phone: 11-26-2006 pneumococcal conjuga te vaccine, 7 valent Gus Munroe DELIVERY TRUCK DRIVER.LENS ASSORTER Work Phone: [facility] Work Phone: 11-26-2006 varicella virus vaccine Yaron Munroe DELIVERY TRUCK DRIVER.LENS ASSORTER Work Phone: [facility] Work Phone: 06-08-2006 haemophilus influenz ae type b vaccine, HbOC conjugate Guswindy Munroe DELIVERY TRUCK DRIVER.LENS ASSORTER Work Phone: [facility] Work Phone: 06-08-2006 haemophilus influenz ae type b vaccine, PRP-T conjugate Codi Lemus DELIVERY TRUCK DRIVER-LENS ASSORTER Work Phone: [facility] 06-08-2006 measles, mumps and rubella virus vaccine Gus Munroe DELIVERY TRUCK DRIVER.LENS ASSORTER Work Phone: [facility] Work Phone: 06-08-2006 pneumococcal conjuga te vaccine, 7 valent Gus Munroe DELIVERY TRUCK DRIVER.LENS ASSORTER Work Phone: [facility] Work Phone: 02-20-2006 pneumococcal conjuga te vaccine, 7 valent Codi Lemus DELIVERY TRUCK DRIVER-LENS ASSORTER Work Phone: [facility] 2005 diphtheria, tetanus toxoids and acellular pertussis vaccine Denaishwarya Lemus DELIVERY TRUCK DRIVER-LENS ASSORTER Work Phone: [facility] 2005 DTaP-hepatitis B and poliovirus vaccine [facility] DELIVERY TRUCK DRIVER-LENS ASSORTER Work Phone: [facility] 2005 haemophilus influenz ae type b vaccine, PRP-T conjugate Codi Lemus DELIVERY TRUCK DRIVER-LENS ASSORTER Work Phone: [facility] 2005 hepatitis B vaccine, pediatric or pediatric/adolescent dosage Denaishwarya Lemus DELIVERY TRUCK DRIVER-LENS ASSORTER Work Phone: [facility] 2005 pneumococcal conjuga te vaccine, 7 valent Codi Lemus DELIVERY TRUCK DRIVER-LENS ASSORTER Work Phone: [facility] 2005 poliovirus vaccine, inactivated Jarad Mariah DELIVERY TRUCK DRIVER-LENS ASSORTER Work Phone: [facility] 2005 diphtheria, tetanus toxoids and acellular pertussis vaccine Codi Lemus DELIVERY TRUCK DRIVER-LENS ASSORTER Work Phone: [facility] 2005 haemophilus influenz ae type b vaccine, PRP-T conjugate [facility] Mariah DELIVERY TRUCK DRIVER-LENS ASSORTER Work Phone: [facility] 2005 poliovirus vaccine, inactivated Codi Lemus DELIVERY TRUCK DRIVER-LENS ASSORTER Work Phone: [facility] 2005 diphtheria, tetanus toxoids and acellular pertussis vaccine Codi Lemus DELIVERY TRUCK DRIVER-L[employer] ASSORTER Work Phone: [facility] 2005 haemophilus influenz ae type b vaccine, PRP-T conjugate [facility] Mariah DELIVERY TRUCK DRIVER-LENS ASSORTER Work Phone: [facility] 2005 hepatitis B vaccine, pediatric or pediatric/adolescent dosage Codi Lemus DELIVERY TRUCK DRIVER-LENS ASSORTER Work Phone: [facility] 2005 poliovirus vaccine, inactivated Codi Lemus DELIVERY TRUCK DRIVER-LENS ASSORTER Work Phone: [facility] 2005 poliovirus vaccine, unspecified formulation Codi Lemus DELIVERY TRUCK DRIVER-LENS ASSORTER Work Phone: [facility] 2005 hepatitis B vaccine, pediatric or pediatric/adolescent dosage Codi Lemus DELIVERY TRUCK DRIVER-LENS ASSORTER Work Phone: [facility] Payers Date Payer Category Payer Self-pay [id number] 2022 Unknown [id number] 2021 Unknown [id number] 2006 Medicaid [employer] [id number] 2006-Present [phone] [address] [place] [address] Medicaid [id number] 2006 Medicaid [id number] 2005 Unknown [id number] 2005 Unknown [id number] 2005 Unknown [id number] 2005 Unknown [id number] Unknown [employer] [id number] Unknown [id number] Unknown [id number] Unknown [id number] Unknown [id number] Unknown [id number] Unknown [id number] Unknown [id number] Unknown [id number] Unknown [id number] Social History Date Type Detail Facility Start: 07-04-2019 End: 06-27-2022 Tobacco smoking status NHIS Never smoked tobacco [facility] Work Phone: Start: 07-04-2019 End: 06-27-2022 Tobacco use and exposure Smokeless tobacco non-user [facility] Work Phone: Start: 2005 Sex Assigned At Not on file [facility] Start: 01-07-2022 End: 06-24-2022 Exposure to SARS-CoV-2 (event) Not sure [facility] History of tobacco use Passive smoker [facility] Start: 08-26-2022 End: 12-21-2023 Tobacco smoking status ARIS Unknown if ever smoked [facility] Start: 12-11-2020 None [facility] Start: 12-11-2020 With Family [facility] Start: 2005 Sex Assigned At Female [facility] Start: 10-15-2022 End: 09-07-2024 Alcohol intake Lifetime non-drinker (finding) [facility] Start: 10-15-2022 End: 03-10-2023 Alcohol intake [facility] Start: 10-15-2022 End: 03-10-2023 Tobacco use panel [facility] Adolescent depressio n screening assessment 7 [facility] Start: 01-20-2025 End: 02-05-2025 Tobacco smoking status NHIS Smokes tobacco daily (finding) [facility] NEGATED: Highlighted row [facility] Goals Date Patient Goal Desired Activity /State Functional Status Date Assessment Result Facility 07-20-2019 Are you deaf, or do you have serious difficulty hearing No 07/20/2019 2:00 AM EST No [facility] 07-20-2019 Are you blind, or do you have serious difficulty seeing, even when wearing glasses Yes 07/20/2019 2:00 AM EST Regla Mae RN Yes [facility] 07-20-2019 Do you have serious difficulty walking or climbing stairs Yes 07/20/2019 2:00 AM EST Yes [facility] 07-20-2019 Do you have difficul ty dressing or bathing No 07/20/2019 2:00 AM EST No [facility] 07-20-2019 Because of a physica l, mental, or emotional condition, do you have difficulty doing errands alone such as visiting a physician's office or shopping 07/20/2019 2:00 AM EST [facility] Mental Status Date Assessment Result Facility 12-24-2023 Cognitive function Voice/Name;Touch/Shaki ng [facility] Work Phone: 02-04-2023 Cognitive function Level Of Cons ciousness Awake;Alert;Appropriate;Fol lows Commands [facility] Work Phone: 11-18-2022 Cognitive function Voice/Name [facility] Work Phone: 07-20-2019 Because of a physica l, mental, or emotional condition, do you have serious difficulty concentrating, remembering, or making decisions Yes 07/20/2019 2:00 AM EST Yes [facility] Clinical Notes 01-17-2022 to 02-05-2025 Addendum Note - Jasmin Enriquez APRN.CELINE - 08/27/2024 1:23 PM ESTAddendum Note - Jasmin Enriquez APRN.CNP - 08/27/2024 1:23 PM ESTAnuragsanjuanaNasrin de la cruzGIOVANNY - 08/27/2024 1:03 PM EST Note Date & Type Note Facility 02-05-2025 Discharge summary [facility] 02-05-2025 Radiology Diagnostic study note [facility] Imaging Services [address] [place] [address] Abdomen/Pelvis W IV Cont ONLY MR#: [id number] Acct: [id number] Name: LUIS BARAJAS Rep #: [id number] : 2005 F 19 From: Lisette Henriquez MD PCP: Dr. Mitzy Fung MD Status: REG ER Study:Abdomen/Pelvis W IV Cont ONLY Date of E xam: 02/05/25 Exam# [id number] Ordering Dr: Arturo Hernandez MD PROCEDURE: ABDOMEN/PELVIS W IV CONT ONLY 02/05/2025 REASON FOR EXAM: PAIN, LEFT LOWER QUADRANT, CONSTIPATION TECHNIQUE: ABDOMEN/PELVIS W IV CONT ONLY. Coronal and Sagittal reconstruction series were provided. ORAL CONTRAST TYPE: None. CONTRAST: Isovue 370 VOLUME: 100 mL One or more dose reduction techniques were used (e.g., Automated exposure control, adjustment of the mA and/or kV according to patient size, use of iterative reconstruction technique. RADIATION DOSE SUMMARY: CTDlvol: 15 mGy DLP: 300 mGycm COMPARISON: CT chest, abdomen and pelvis 01/20/2025. FINDINGS: Lung bases: Unremarkable. Liver: The liver is normal in size without suspicious hepatic mass. The major portal veins are patent. No biliary ductal dilation. Gallbladder: No radiopaque stones within the gallbladder. Spleen: Unremarkable. Pancreas: Unremarkable. Adrenals: No adrenal mass. Kidneys: No hydronephrosis or nephrolithiasis. Bladder: Minimally distended with diffuse bladder wall thickening. Reproductive Organs: Normal uterine size and contour. Ovaries are unremarkable. Physiologic left corpus luteum. Bowel: The bowel loops are nondilated. No ascites or pneumoperitoneum. No inflammatory mass in the expected region of the appendix. Lymph nodes: No suspicious lymphadenopathy. Vasculature: The abdominal aorta and IVC are normal. Bones: No aggressive osseous lesions. CT/Abdomen/Pelvis W IV Cont ONLY IMPRESSION: 1. No acute abdominopelvic finding. 2. Mild diffuse bladder wall thickening, which may represent developing urinary tract infection. Correlation with patient's symptoms and urinalysis recommended. Reading Location: [facility] CC: Dr. Arturo Hernandez MD; Dr. Mitzy Fung MD ~ Microelectronics Assembler: Signed [facility] 02-05-2025 Hospital Discharge instructions Additional Instructions Try taking MiraLAX to help with your constipation. Follow-up with Dr. Ruano regarding the thickened bladder wall on your CT scan. Return with new or worsening symptoms. Otherwise follow-up with your primary care provider in the next 3 to 5 days if not improving. [facility] Work Phone: 01-23-2025 Discharge summary [facility] 01-20-2025 Radiology Diagnostic study note [facility] Imaging Services [address] [place], [place] [address] CT Chest, Abd, Pel w/Contrast MR#: [id number] Acct: [id number] Name: LUIS BARAJAS Rep #: [id number] : 2005 F 19 From: Luanne Sharma MD PCP: Dr. Mitzy Fung MD Status: REG ER Study:CT Chest, Abd, Pel w/Contrast Date of E xam: 01/20/25 Exam# [id number] Ordering Dr: Javier Isabel DO PROCEDURE: CT [...] on series 2, image 66. Reading Location: [facility] CC: Dr. Javier Isabel DO; Dr. Mitzy Fung MD ~ Microelectronics Assembler: Signed [facility] 08-27-2024 Note Addended by: JASMIN SAUCEDO on: 08/27/2024 01:23 PM Modules accepted: Orders [facility] 08-27-2024 Miscellaneous Notes Addended by: JASMIN ENRIQUEZ on: 08/27/2024 01:23 PM Modules accepted: Orders documented in this encounter [facility] 08-27-2024 Note HNO ID: [id number] Author: NASRIN VILLAVICENCIO LPN Service: ? Author Type: LICENSED NURSE Type: Progress Notes Filed: 08/27/2024 13:04 Note Text: 2.5 solution aerosol treatment given per provider's orders. Prior to treatment O2 sat is 97%. Treatment completed. O2 sat is 100%. Tolerated well. Nasrin Villavicencio LPN [facility] 08-27-2024 History of Present illness Narrative 2.5 [...] Discussed expected course of illness Jasmin Enriquez APRN.LENS ASSORTER documented in this encounter [facility] 08-27-2024 Note HNO ID: [id number] Author: JASMIN ENRIQUEZ APRN.LENS ASSORTER Service: ? Author Type: Nurse Practitioner Type: [...] as prescribed. 4. (more content not included)... [facility] 08-27-2024 Instructions Jasmin Enriquez, ALEX.LENS ASSORTER - 08/27/2024 12:08 PM EST ASSESSMENT/PLAN: 1. [...] Discussed expected course of illness Jasmin Enriquez APRN.LENS ASSORTER Previous hospitalization care team: Attending Provider: Ernestina Lanza MD (attending for admission) Consulting: Tirso Richey MD (ENT) Consulting: Jason Uriostegui MD (infectious disease) documented in this encounter [facility] 04-25-2024 Note HNO ID: [id number] Author: ERNESTINA LANZA MD Service: Hospital Medicine [...] PCOS, asthma, URIEL. Patient was transferred from [facility] hospital today for concerns of 2 [...] sore throat associated with dysphagia At the [place] ED CT neck with IV contrast showing [...] PIV CODE STA (more content not included)... [facility] 04-25-2024 Note HNO ID: [id number] Author: TIRSO RICHEY MD Service: Otolaryngology Author [...] with me as needed. Tirso Richey MD [facility] 01-26-2024 Note HNO ID: [id number] Author: MARTÍNEZ LYLES APRN.LENS ASSORTER Service: ? Author Type: Nurse Practitioner Type: Progress Notes Filed: 01/26/2024 16:37 Note Text: This note was created using [employer], [employer]. Subjective Luis Barajas is a 18 year [...] Tylenol as needed for pain. Martínez Lyles APRN.[facility] 01-26-2024 History of Present illness Narrative This note was created using [employer]. Subjective Luis Barajas is a 18 year [...] Martínez Lyles APRN.CELINE documented in this encounter [facility] 12-29-2023 Note HNO ID: [id number] Author: JASMIN ENRIQUEZ APRN.LENS ASSORTER Service: ? Author Type: Nurse Practitioner Type: [...] Discussed expected course of illness Jasmin Enriquez APRN.[facility] 12-29-2023 History of Present illness Narrative Subjective [...] Jasmin Enriquez APRN.CELINE documented in this encounter [facility] 12-29-2023 Instructions Jasmin Enriquez APRN.CELINE - 12/29/2023 [...] Discussed expected course of illness Jasmin Enriquez APRN.LENS ASSORTER [facility] PATIENT INFO BLADDER INFECTION OVERVIEW Bladder [...] have an infection. documented in this encounter [facility] 12-24-2023 Procedure note [facility] 11-14-2023 Discharge summary Note Date/Time November 14, 2023 1:42pm [facility] Medical Records Department [address] [place] [address] Emergency Department Summary 11/14/23 MR#: [id number] Acct: [id number] Name: LUIS BARAJAS Rep #:[id number] : 2005 18 From: Alexis Farfan MD [...] was seen 2 weeks ago at the [facility] urgent care diagnosed with urinary tract infection. [...] Prior similar symptoms: Yes Recent Illness/Hospitalization: Yes [facility] Medical History (Updated 11/14/23 @ 18:17 [...] (Auto) 65.2 H Lymph % (Auto) 27.1 [place] % (Auto) 5.1 Eos % (Auto) 1.7 [...] Sl. Cloudy Urine pH 6.5 Ur Specific [place] 1.015 Urine Protein 30 H Urine Glucose [...] your Primary Care Provider. Call [facility] ([phone]) or report to the closest Emergency Room. Call 911 if necessary. 11/14/231817 <Electronically signed by Alexis Farfan MD> Cosigner Signature (if applicable): CC: Dr. Mitzy Fung MD ~ Signed [facility] Work Phone: [phone] [phone] NoteHNO ID: [id number] Author: LONI ESCOBAR APRN.CELINE Service: ? Author Type: Nurse Practitioner Type: Progress Notes Filed: 11/14/2023 12:51 Note Text: Complaints of severe right flank pain. Patient says she has passed 2 hard [place] objects through her urethra. Patient says she [...] evaluation mother was okay with this care plan.[facility]03-23-2024 History of Present illness Narrative* Loni Escobar APRN.CNP - 11/14/2023 12:50 PM EDT Complaints of severe right flank pain. Patient says she has passed 2 hard [place] objects throughher urethra. Patient says she feels [...] with this care plan. [facility] Miscellaneous Notes* Telephone Encounter - Ariane Davis [...] is pending; continue nitrofurantoin. [facility]24 NoteHNO ID: [id number] Author: LILLIAN SANCHEZ APRN.LENS ASSORTER Service: ? Author Type: Nurse Practitioner Type: Progress Notes Filed: 10/30/2023 16:18 Note Text: This note was created using [employer], [employer]. Subjective Luis Barajas is a 18 year [...] history is provided by the patient. No language asst was used. UTI This is a new [...] soft. There is n (more content not included)...[facility]03-08-2024 History of Present illness Narrative* Lillian Sanchez APRN.LENS ASSORTER - 10/30/2023 4:02 PM EST This note was created using [employer]. Subjective Luis Barajas is a 18 year [...] history is provided by the patient. No language asst was used. UTI This is a new [...] NAAT - BACTERIAL VAGINOSIS NAAT Lillian Sanchez APRN.LENS ASSORTER [facility] Nurse Note* Brigette Rincon MA - 08/02/2023 11:02 AM EST Pt returned for a urine culture recheck, due to contamination. Brigette Rincon MA [facility] Miscellaneous Notes* Telephone Encounter - Leta Raymundo LPN - 07/30/2023 7:24 PM EST Patient's mother given results and verbalized understanding of instructions given. Leta Raymundo LPN * Telephone Encounter - Lillian Sanchez APRN.LENS ASSORTER - 07/30/2023 3:57 PM EST Please inform patient urine culture revealed mixed bacterial growth. If patient would like, can provide another urine specimen. I have placed an order . Would just need to represent to express care as nurse visit Patient should follow up with PCP for continued symptoms. [facility] History of Present illness Narrative* Ivonne Dawson APRN.LENS ASSORTER - 07/28/2023 7:07 PM EST SUBJECTIVE: Luis [...] CULTURE - CONSULT TO UROLOGY Ivonne Dawson APRN.LENS ASSORTER documented in this encounterLicking [facility]04-07-[address] De La Torre [facility] November 28, 2022 6:52pm Note Date/Time November 28, 2022 3:09 pm [facility] Medical Records Department [address] [place] [address] Emergency Department Summary 11/28/22 MR#: [id number] Acct: [id number] Name: LUIS BARAJAS Rep #:[id number] : 2005 17 From: Vishal De La [...] again today as advised by her operating news gathering technician Dr. Alfreda Clements. Patient took naproxen prior [...] pain restarted 2 hours prior to evaluation. [facility] Medical History (Updated 11/28/22 @ 18:46 [...] with a ruptured ovarian cyst as well. Kim is also in the differential diagnosis here. Discussed with Dr. Alfreda Clements again who agrees with discharging her home with close outpatient follow-up, it sounds like she is also following up with gynecology specialist [facility], I encouraged mom to keep that appointment. [...] % (Auto) 62.9 Lymph % (Auto) 29.3 [place] % (Auto) 5.6 Eos % (Auto) 1.5 [...] Sl. Cloudy Urine pH 8.0 Ur Specific Oakdale 1.015 Urine Protein Negative Urine Glucose (UA) [...] a Ruptured Ovarian Cyst, ED Mid-Cycle Pain ([place]mer[place]) Prescriptions: No Action albuterol sulfate [Ventolin HFA] [...] Care Provider] - Doctor,Your [Non-Staff] - Keep [facility] appointment Disposition Disposition: Home, Self Care What to do if you have Problems For any increased pain, shortness of breath, bleeding, nausea or vomiting, chestpain, or any unexpected problems, contact your Primary Care Provider. Call [facility] ([phone]) or report to the closest Emergency Room. Call 911 if necessary. 11/28/22 1852 <Electronically signed by Vishal De La Torre MD> Cosigner Signature (if applicable): CC: Dr. Mitzy Fung MD; Dr. Mara Clements MD ~ Signed [facility] Work Phone: [phone] 494-611203-28-2023 Procedure [facility] 11-18-2022 History and physical note Author Dr. Clements [facility] November 18, 2022 3:01am Note Date/Time November 18, 2022 12: 23am [facility] Medical Records Department [address] [place] [address] History & Physical Exam 11/18/22 0017 MR#: [id number] Acct: [id number] Name: LUIS BARAJAS Rep #:[id number] : 2005 17 From: Mara villegas MD PCP: Dr. Mitzy Fung MD Status:[facility] Location: [place] [address] HPI - General General Date of Service: [...] antibiotics for UTI diagnosed 2 weeks ago. [facility] Medical History ADHD Asthma Home Medications albuterol [...] (Auto) 41.2, Lymph % (Auto) 50.2 H, [place] % (Auto) 6.4 H, Eos % (Auto) [...] Signed: Ara Burton MD at 0:14 EDT Reading Location ID and State: [facility] / [place] Tel , Service support , Assessment & Plan Assessment/Plan (1) Ovarian [...] Fung MD; Dr. Mara Clements MD~ Signed [facility] Work Phone: 1(276) 493-966901-03-2023 Miscellaneous Notes* Telephone Encounter - Nasrin Villavicencio [...] AM EST ----- Message from Jasmin Enriquez APRN.LENS ASSORTER sent at 08/26/2022 7:21 AM EST ----- Please advise parent of Luis the COVID, flu, RSV test is negative. documented in this encounterLicking [facility]01-02-[facility]23 History of Present illness Narrative* Moe Simons [...] ROUTINE Moe Simons MD documented in this encounterLicking [facility]11-02-2022 Miscellaneous Notes* Telephone Encounter - Stefany Olivo - 06/25/2022 11:14 AM EDT Patient given results and verbalized understanding of instructions given. Stefany Olivo * Telephone Encounter - Lillian Sanchez APRN.[facility] - 06/25/2022 10:02 AM EDT Patient tested positive for BV. Flagyl sent into [facility]. Please reach out and inform patient. This is not an STI. [facility] documented in [facility] encounterL[facility]11-01-[facility]22 History of Present illness Narrative* Gus Munroe [...] care. Gus Munroe APRN.CELINE documented in this encounterLicking [facility]05-27-2022 History of Present illness Narrative* Gus Munroe [...] ICD10: R10.9 (primary diagnosis) - CONSULT TO ACCOUNT MANAGER RELIEF 2. Acute sinusitis, recurrence not specified, unspecified location - ICD9: 461.9, ICD10: J01.90 Patient diagnosed with maxillary sinusitis. Patient was placed on amoxicillin. Will follow up with PCP for reevaluation 2 to 3 days symptoms are not improving. Additionally patient will be referred to ACCOUNT MANAGER RELIEF. Patient states she has had ongoing suprapubic tenderness ever since she has been diagnosedwith a UTI this has been several months ago. Red flags for prompt reevaluation discussed. Will be seen in urgent care or ED for any new or worsening symptoms. Patient/mother verbalized understanding agrees with plan of care Gus Munroe APRN.LENS ASSORTER documented in this encounterMor[facility]Dis[facility] Author Dr. Clements [facility] November 18, 2022 3:17am Note Date/Time November 18, 2022 3:1 4am [facility] Medical Records Department [address] [place] [address] Instructions for Home/Discharge Instructions 11/18/22310 MR#: [id number] Acct: [id number] Name: LUIS BARAJAS Rep #:[id number] : 2005 17 From: Mara villegas MD PCP: Dr. Mitzy Fung MD Status:REG [facility] Discharge Instructions Diet Discharge Diet: No restrictions [...] Mara Allen MD When: Follow up with [facility] as scheduled or call [phone] Alfreda Clements Test [...] CC: Dr. Mitzy Fung MD ~ Signed [facility] Work Phone: Discharge summary Author Leny Ruano [facility] December 24, 2023 9:01am Note Date/Time December 24, 2023 9:01am [facility] Medical Records Department [address] [place] [address] Instructions for Home/Discharge Instructions 12/24/23 0900 MR#: [id number] Acct: [id number] Name: LUIS BARAJAS Rep #:[id number] : 2005 18 From: Leny Robison PCP: Dr. Mitzy Fung MD Status:REG [facility] Discharge Instructions Diet Discharge Diet: No restrictions [...] CC: Dr. Mitzy Fung MD ~ Signed [facility] Work Phone: Discharge summary Author Yaron Peralta [facility] Note Date/Time January 23, 2025 10:43 am [facility] Medical Records Department [address] [place] [address] Emergency Department Summary 01/23/25 MR#: [id number] Acct: [id number] Name: LUIS BARAJAS Rep #:[id number] : 2005 19 From: Yaron Peralta MD [...] Toradol. We do long discussion show follow-up withOB/NEEDLE LOOM WEAVER for her endometriosis. She will follow-up with [...] Sl. Cloudy Urine pH 6.5 Ur Specific Oakdale 1.010 Urine Protein 15 H Urine Glucose [...] Days Qty: 7 0RF Primary Care Provider: Mizty Fung Referrals: Counseling,Center [Group of Physicians] - [...] Counseling. Support groups. Follow-up with a local ACCOUNT MANAGER RELIEF for your pelvic pain and endometriosis. Print Language: Nigerien Disposition Disposition: Home, Self Care What to do if you have Problems For any increased pain, shortness of breath, bleeding, nausea or vomiting, chestpain, or any unexpected problems, contact your Primary Care Provider. Call [facility] ([phone]) or report to the closest Emergency Room. Call 911 if necessary. 01/23/25 1043 <Electronically signed by Yaron Peralta MD> Cosigner Signature (if applicable): CC: Dr. Mitzy Fung MD ~ Signed [facility] Work Phone: Discharge summary Author Arturo Hernandez [facility] Note Date/Time February 05, 2025 11:5 7am [facility] Medical Records Department [address] [place] [address] Emergency Department Summary 02/05/25 MR#: [id number] Acct: [id number] Name: LUIS BARAJAS Rep #:[id number] : 2005 19 From: Arturo Hernandez MD PCP: Dr. Mitzy Fung MD Status:REG ER Location: ED HPI HPI - GI History of Present Illness Chief Complaint: Constipation Narrative Narrative: 19-year-old female presents with her mother because of abdominal pain and constipation that she has had for the last 4 days. She usually has a bowel movement every day. She has a feeling like she has to have a bowel movement, but is unable to. She is nauseated. She has had previous surgeries such as exploratory surgery for endometriosis. They state that she was having problems with frequent UTIs and sees Dr. Ruano. She states that she had cystoscopy andeverything looked normal. She has tried fiber, fleets enema, and states now sheis having mucousy liquid when she has tried to have a bowel movement recently. Yesterday she had right lower quadrant abdominal pain, but it feels like it is moved to the left lower quadrant. She presents because of the inability to havea bowel movement as well as lower quadrant abdominal pain. No fevers or chills. PFSH PFS Medical History Wears glasses Bipolar disorder Anxiety Non-smoker PCOS (polycystic ovarian syndrome) Endometriosis determined by laparoscopy ADHD Asthma Home Medications ?Medication ?Instructions ?Recorded ?Last Taken ?Type d-mannose 1 cap PO DAILY 02/05/25 Unkn own History Allergy/AdvReac Type Severity Reaction Status Date / Time tree and shrub pollen Allergy Other Verified 02/05/25 09:29 Surgical History S/P laparoscopy Social History Smoking Status: Current every day smoker tobacco type: cigarettes and e- cigarettes alcohol intake: never substance use type: does not use ROS ROS ED ROS Narrative Review of systems positive for constipation, bilateral lower quadrant pain, right yesterday, now left-sided. Positive nausea. No fevers or chills. No exacerbating or alleviating factors. EXAM Physical Exam Narrative Exam Narrative: Afebrile. Vital signs noted. Nontoxic-appearing. Cardiovascular examination reveals a regular rate and rhythm. Lungs are clear to auscultation bilaterally. Abdomen is soft, with minimal diffuse tenderness to palpation in the bilateral lower quadrants. No pain over McBurney's point, no rebound or guarding. No peritoneal signs. Positive bowel sounds. Neurological examination nonfocal, nonlateralizing. Const Vital Signs: 02/05/25 09:26 02/05/25 11:31 Temperature 98.3 F Temperature Source Oral Pulse Rate 98 78 Respiratory Rate 14 16 Blood Pressure 126/71 H 122/74 H Blood Pressure Mean 89 90 Pulse Ox 100 97 Oxygen Delivery Method Room Air Room Air MDM MDM MDM Narrative Medical decision making narrative: The differential diagnosis includes but not limited to constipation versus fecalimpaction versus partial bowel obstruction versus diverticulitis versus nonspecific abdominal pain. I reviewed her prior records and labs. I do feel that repeat CT imaging is indicated as her obstipation/constipation has developed over the last 4 days. CBC, CMP, UA, serum will be obtained as well. Chaperoned rectal examination showed no evidence of a hemorrhoid or rectal prolapse. There was no stool in the rectal vault on digital rectal examination. I reviewed her laboratory work and she has normal white count of 7.1 with hemoglobin 13.9, hematocrit 41.4, platelet count normal at 341. CMP remarkable for carbon dioxide of 20.8 which he think is nonspecific, BUN of 11 creatinine 0.91. Serum is negative. Lipase normal at 30. Urinalysis is negative for infection. CT of the abdomen pelvis radiology report reviewed and there is no acute process, no obstruction. There is a thickened bladder wall. However given the negative urinalysis, I do not feel that antibiotics are indicated. Repeat examination shows the patient sitting crosslegged on the cot. At this point in time, I feel she can be discharged to follow-up. She will continue hersimethicone for her abdominal pain and cramping which may be related to gas, butshe will also start MiraLAX nigu-yab-nameups. Follow-up with primary care. Return instructions reviewed. Disposition is discharged home in stable condition. History & Record Review Discussion w/independent historian: Patient and Family (Mother) Additional record(s) reviewed:: Prior ED visit and Prior labs Lab Data Attestation: I reviewed the patient's lab results. Labs: Laboratory Results - last 24 hr 02/05/25 02/05/25 10:02 11:17 WBC 7.1 RBC 4.86 Hgb 13.9 Hct 41.4 MCV 85.2 MCH 28.6 MCHC 33.6 RDW Std Deviation 36.2 RDW Coeff of Ray 11.8 Plt Count 341 MPV 9.8 Immature Gran % (Auto) 0.100 Neut % (Auto) 48.7 Lymph % (Auto) 40.5 [place] % (Auto) 6.3 Eos % (Auto) 3.4 Baso % (Auto) 1.0 Absolute Neuts (auto) 3.5 Absolute Lymphs (auto) 2.89 Nucleated RBC % 0 Sodium 142 Potassium 3.8 Chloride 107 Carbon Dioxide 20.8 L Anion Gap 14 BUN 11 Creatinine 0.91 Estim Creat Clear Calc 85.87 Est GFR (MDRD) Non-Af 93 BUN/Creatinine Ratio 11.9 Glucose 92 Calcium 9.9 Total Bilirubin 0.66 AST 23 ALT 15 Alkaline Phosphatase 59 Total Protein 7.7 Albumin 4.8 Globulin 2.9 Albumin/Globulin Ratio 1.7 Lipase 30 Serum , Qual NEGATIVE Urine Color Yellow Urine Clarity Clear Urine pH 7.0 Ur Specific Oak[place] 1.005 Urine Protein 30 H Urine Glucose (UA) Normal Urine Ketones Negative Urine Occult Blood Negative Urine Nitrite Negative Urine Bilirubin Negative Urine Urobilinogen Normal Ur Leukocyte Esterase Negative Urine RBC 0 SEEN Urine WBC 0 SEEN Ur Squamous Epith Cells 0-5 SEEN Urine Bacteria 0 SEEN Urine Mucus 0 SEEN Radiography Diagnostic Testing: Clinical Impression(s) from Imaging Studies Abdomen/Pelvis CT 02/05/25 09:50 IMPRESSION: 1. No acute abdominopelvic finding. 2. Mild diffuse bladder wall thickening, which may represent developing urinary tract infection. Correlation with patient's symptoms and urinalysis recommended. Reading Location: [id number] Discharge Plan Triage Chief Complaint: Constipation ED Provider: Arturo Hernandez Dx/Rx/DC Orders Clinical Impression: Abdominal pain, Constipation, Bladder wall thickening Instructions: ED Abdominal Pain Unkn Cause Fem, ED Constipation (Adult) Prescriptions: No Action d-mannose 1 cap PO DAILY Primary Care Provider: Mitzy Fung Referrals: Mitzy Fung MD [Primary Care Provider] - 3-5 Days if not improving Activity Restrictions/Additional Instructions: Try taking MiraLAX to help with your constipation. Follow-up with Dr. Ruano regarding the thickened bladder wall on your CT scan. Return with new or worsening symptoms. Otherwise follow-up with your primary care provider in the next 3 to 5 days if not improving. Print Language: Nigerien Disposition Disposition: Home, Self Care What to do if you have Problems For any increased pain, shortness of breath, bleeding, nausea or vomiting, chestpain, or any unexpected problems, contact your Primary Care Provider. Call [facility] ([phone]) or report to the closest Emergency Room. Call 911 if necessary. 02/05/25 1157 <Electronically signed by Arturo Hernandez MD> Cosigner Signature (if applicable): CC: Dr. Mitzy Fung MD ~ Signed [facility] Work Phone: Evaluation note* Diagnosis Abdominal pain, unspecified abdominal location- Primary Acute sinusitis, recurrence not specified, unspecified location documented in this encounter [facility] note* Diagnosis Urinary frequency- Primary documented in this encounter [facility] noteNo assessment information availableWMartins Ferry Hospital Work Phone: Evaluation note* Diagnosis Sore throat- Primary Acute pharyngitis Influenza-like illness Influenza with other respiratory manifestations documented in this encounter [facility] note* Diagnosis Onset Date Resolution Status Ovarian torsion acute [facility] Work Phone: Evaluation note* Diagnosis Hirsutism Irregular menses Irregular menstrual cycle documented in this encounter [facility]* Diagnosis Urinary frequency- Primary documented in this encounter [facility] note* Diagnosis Urinary frequency- Primary documented in this encounter [facility] note* Diagnosis Urinary frequency- Primary documented in this encounter [facility] note* Diagnosis Dysuria- Primary [facility] Diagnosis Pain in pelvis- Primary Flank pain Abdominal pain, unspecified site documented in this encounter [facility]* Diagnosis Burning with urination- Primary Dysuria Otalgia of right ear Otalgia, unspecified documented in this encounter [facility]* Diagnosis Ear pain, right- Primary Otalgia, unspecified [facility]* Diagnosis Sore throat- Primary Acute pharyngitis Pharyngitis, unspecified etiology Wheezing Viral URI with cough Acute upper respiratory infections of unspecified site Bronchitis Bronchitis, not specified as acute or chronic documented in this encounter [facility]* Diagnosis Weight loss Loss of weight Family history of type 2 diabetes mellitus Family history of diabetes mellitus documented in this encounter [facility] Discharge instructions Additional Instructions For your pelvic and endometriosis pain alternate Motrin and Tylenol. Ativan as needed for your anxiety. Do not drink alcohol or drive while taking it. Follow-up with the counseling center for your anxiety. Otherwise to help deal with anxiety. Read about it and learn about it. Exercise. Breathing techniques. Walking. Reading. Counseling. Support groups. Follow-up with a local ACCOUNT MANAGER RELIEF for your pelvic pain and endometriosis.[facility] Work Phone: Reason for referral (narrative)No reason for referral information availableWMartins Ferry Hospital Work Phone: Reason for Referral Specialty Diagnoses / Procedures Referred By Yamile seth Referred To Contact Diagnoses Abdominal pain, unspecified abdominal location Procedures CONSULT TO ACCOUNT MANAGER RELIEF OFFICE/OUTPATIENT [facility] 60-74 MINUTES Gus Munroe, ALEX.LENS ASSORTER [address] [place] [address] Referral ID Status Reason Start Date Expiration Date Visits Requested Visits Authorized [id number] Authorized PCP Requested Referral Auto-Generate d Referral 01/17/2022 01/17/2023 1 1 Specialty Diagnoses / Procedures Referred By Yamile seth Referred To Contact Urology Diagnoses Urinary frequency Procedures CONSULT TO UROLOGY OFFICE/OUTPATIENT [facility] 60-74 MINUTES Ivonne Dawson, DELIVERY TRUCK DRIVER.LENS ASSORTER [address] [place] [address] Referral ID Status Reason Start Date Expiration Date Visits Requested Visits Authorized [id number] Authorized PCP Requested Referral 07/28/2023 07/27/2024 1 [...] abd pain January 23, 2025 9:18a m Chief Complaint Admit Date abd pain January 20, 2025 3:20p m abd pain January 23, 2025 9:18a m constipation February 05, 2025 9:25 am Advance Directives No Advanced Directives Records Found Advance Directive Response Recorded Date/ Time Living Will No May 09, 2016 5:08pm Power of Straight Truck Driver No April 5:08pm Advance Directive Response Recorded Date/ Time Living Will No May 09, 2016 6:08pm Power of Straight Truck Driver No April 6:08pm Advance Directive Response Recorded Date/ Time Living Will No September 25 4:30am Power of Straight Truck Driver No September 25, 2023 4:30am Advance Directive Response Recorded Date/ Time Living Will No November 14, 2023 2:18pm Power of Straight Truck Driver No November 13 2:18pm Advance Directive Response Recorded Date/ Time Living Will No December 21, 2023 1:59pm Power of Straight Truck Driver No December 20 1:59pm Date Activated Date Inactivated Comments 04/24/2024 9:55 AM 04/26/2024 3:43 PM Question Answer Comments Full Code Order Discussed With: Patient Advance Directive Response Recorded Date/ Time Do you have a Healthcare Power of Straight Truck Driver? No January 20, 2025 3:51pm Advance Directive Response Recorded Date/ Time Do you have a Healthcare Power of Straight Truck Driver? No January 20, 2025 3:51pm Do you have a Healthcare Power of Straight Truck Driver? No January 23, 2025 9:37am Advance Directive Response Recorded Date/ Time Do you have a Healthcare Power of Straight Truck Driver? No January 20, 2025 3:51pm Do you have a Healthcare Power of Straight Truck Driver? No January 23, 2025 9:37am Do you have a Healthcare Power of Straight Truck Driver? No February 05, 2025 9:55am Health Concerns Infection Onset Date Last Indicated [...] or prosecute any alcohol or drug abuse patient.[facility] HospitalIn the event this information is protected by the Federal Confidentiality of Alcohol and Drug Abuse Patient Records regulations: The Federal rules restrict any use of the information to criminally investigate or prosecute any alcohol or drug abuse patient.[facility] HospitalIn the event this information is protected by the Federal Confidentiality of Alcohol and Drug Abuse Patient Records regulations: The Federal rules restrict any use of the information to criminally investigate or prosecute any alcohol or drug abuse patient.[facility] HospitalIn the event this information is protected by the Federal Confidentiality of Alcohol and Drug Abuse Patient Records regulations: The Federal rules restrict any use of the information to criminally investigate or prosecute any alcohol or drug abuse patient.[facility] HospitalIn the event this information is protected by the Federal Confidentiality of Alcohol and Drug Abuse Patient Records regulations: The Federal rules restrict any use of the information to criminally investigate or prosecute any alcohol or drug abuse patient.[facility] HospitalIn the event this information is protected by the Federal Confidentiality of Alcohol and Drug Abuse Patient Records regulations: The Federal rules restrict any use of the information to criminally investigate or prosecute any alcohol or drug abuse patient.[facility] HospitalIn the event this information is protected by the Federal Confidentiality of Alcohol and Drug Abuse Patient Records regulations: The Federal rules restrict any use of the information to criminally investigate or prosecute any alcohol or drug abuse patient.[facility] HospitalIn the event this information is protected by the Federal Confidentiality of Alcohol and Drug Abuse Patient Records regulations: The Federal rules restrict any use of the information to criminally investigate or prosecute any alcohol or drug abuse patient.[facility] HospitalIn the event this information is protected by the Federal Confidentiality of Alcohol and Drug Abuse Patient Records regulations: The Federal rules restrict any use of the information to criminally investigate or prosecute any alcohol or drug abuse patient.[facility] HospitalIn the event this information is protected by the Federal Confidentiality of Alcohol and Drug Abuse Patient Records regulations: The Federal rules restrict any use of the information to criminally investigate or prosecute any alcohol or drug abuse patient.[facility] HospitalIn the event this information is protected by the Federal Confidentiality of Alcohol and Drug Abuse Patient Records regulations: The Federal rules restrict any use of the information to criminally investigate or prosecute any alcohol or drug abuse patient.[facility] HospitalIn the event this information is protected by the Federal Confidentiality of Alcohol and Drug Abuse Patient Records regulations: The Federal rules restrict any use of the information to criminally investigate or prosecute any alcohol or drug abuse patient.[facility] the event this information is protected by the Federal Confidentiality of Alcohol and Drug Abuse Patient Records regulations: The Federal rules restrict any use of the information to criminally investigate or prosecute any alcohol or drug abuse patient.[facility] Hospital[facility] the event this information is protected by the Federal Confidentiality of Alcohol and Drug Abuse Patient Records regulations: The Federal rules restrict any use of the information to criminally investigate or prosecute any alcohol or drug abuse patient.[facility] Reason for Visit (unrecogniz ed section and content) Reason Comments Ear Pain Pt presented with donta goldberg reported bilateral ear, jaw pain rated 6 [...] Care Teams (unrecognized sec tion and content) Assistant Gm Of Content & Delivery Relationship Specialty Start Date End Date Cesar Rosenthal [facility] [address] [place] [address] PCP - General 06/03/06 Assistant Gm Of Content & Delivery Relationship Specialty Start Date End Date Mitzy Fung [place] [address] PCP - General Pediatrics 06/24/22 Assistant Gm Of Content & Delivery Relationship Specialty Start Date End Date [facility]ung [facility] [place] [address] PCP - General Pediatrics 06/24/22 Team Status: [...] Dr. J Luis Wolfe MD Attending Provider[facility] Active Team Status: Inactive Member [...] Dr. Mara Clements MD Attending Provider Active Assistant [employer] Of Content & Delivery Relationship Specialty Start Date End Date Mitzy Fung MD [address] [place] [address] PCP - General 07/19/19 Team Status: Inactive [...] MD Attending Provider, Refer ring Provider Active Assistant G[employer] Of Content & Delivery Relationship Specialty Start Date End Date Mitzy Fung MD [address] [place], [place] [id number] PCP - General Pediatrics 06/24/22 Assistant Gm Of Content & Delivery Relationship Specialty Start Date End Date Mitzy Fung MD [address] [place], [place] [id number] PCP - General Pediatrics 06/24/22 Assistant Gm Of Content & Delivery Relationship Specialty Start Date End Date Mitzy Fung MD [address] [place] [address] PCP - General Pediatrics 06/24/22 Team Status: Inactive Member Role Status Dates Dr. Mitzy Fung MD Primary Care Provider Active Dr. Levar Ackerman DO Emergency Provider Active Assistant [employer] Of Content [employer] Delivery Relationship Specialty Start Date End Date Mitzy Fung MD [address] [place] [address] PCP - General Pediatrics 06/24/22 Assistant G[employer] Of Content & Delivery Relationship Specialty Start Date End Date Mitzy Fung MD [address] [place], [place] [id number] PCP - General Pediatrics 06/24/22 Team Status: [...] MD Attending Provider, Referring P rovider Active Assistant Gm Of Content & Delivery Relationship Specialty Start Date End Date Mitzy Fung MD [address] [place] [address] PCP - General Pediatrics 06/24/22 Assistant Gm Of Content & Delivery Relationship Specialty Start Date End Date Mitzy Fung MD [address] [place] [address] PCP - General Pediatrics 06/24/22 Assistant Gm Of Content & Delivery Relationship Specialty Start Date End Date Mitzy Fung MD [facility] [place] [address] PCP - General 07/19/19 Team Status: Active Member Role Status Dates Dr. Mitzy Fung MD Primary Care Provider Active Team Status: Inactive Member Role Status Dates Dr. Mitzy Fung MD Primary Care Provider Active Start: January 20, 2025 End: January 20, 2025 Dr. Javier Isabel DO Referring Provider Active Start: January 20, 2025 End: January 20, 2025 Dr. Javier Isabel DO Emergency Provider Active Start: January 20, 2025 End: January 20, 2025 Team Status: Inactive Member Role Status Dates Dr. Mitzy Fung MD Primary Care Provider Active Start: January 23, 2025 End: January 23, 2025 Dr. Yaron Peralta MD Emergency Provider Active S tart: January 23, 2025 End: January 23, 2025 Team Status: Inactive Member Role Status Dates Dr. Mitzy Fung MD Primary Care Provider Active Start: January 20, 2025 End: January 20, 2025 Dr. Javier Isabel DO Attending Provider Active Start: January 20, 2025 End: January 20, 2025 Dr. Javier Isabel DO Referring Provider Active Start: January 20, 2025 End: January 20, 2025 Dr. Javier Isabel DO Emergency Provider Active Start: January 20, 2025 End: January 20, 2025 Team Status: Inactive Member Role Status Dates Dr. Mitzy Fung MD Primary Care Provider Active Start: January 23, 2025 End: January 23, 2025 Dr. Yaron Peralta MD Attending Provider Active S tart: January 23, 2025 End: January 23, 2025 Dr. Yaron Peralta MD Emergency Provider Active S tart: January 23, 2025 End: January 23, 2025 Team Status: Inactive Member Role Status Dates Dr. Mitzy Fung MD Primary Care Provider Active Start: February 05, 2025 End: February 05, 2025 Arturo Hernandez MD Emergency Provider Active Star t: February 05, 2025 End: February 05, 2025 Goals (unrecognized section and content) Goals [...] section and content) DATE CREATED AUTHOR 04/26/2024 [facility]ter DATE CREATED AUTHOR AUTHOR'S ORGANIZ ATION 05/05/2024 [facility] [place] DATE CREATED AUTHOR AUTHOR'S ORGANIZ ATION 09/03/2024 [facility] DATE CREATED AUTHOR AUTHOR'S ORGANIZ ATION 09/14/2024 [facility] DATE CREATED AUTHOR AUTHOR'S ORGANIZ ATION 02/13/2025 [facility] FOR RECORDS PERTAINING TO PATIENTS WHO ARE [...] BE BASED ON THE PRIMARY CLINICAL RECORDS. [employer] provides no warranty or guarantee of the accuracy or completeness of information in this document.
--- OUTSIDE RECORDS SUMMARY | 2025-02-21 02:14 | XMS RPT_ITS | CCD ---
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 Leukocyte esterase Test strip Ql (U) 25 /ul High Negative [facility] Urine pHOrdered By: Yaron Landis ght on 01-23-2025 pH (U) 6.5 [pH] 5.0 - 8.0 [facility] Urine sediment bacteria coun t by microscopy (number/high power field)Ordered By: Yaron Peralta on 01-23-2025 Bacteria LM.HPF (Urine sed) [#/Area] 1 /[HPF] None Seen [facility] Urine specific gravity measu rementOrdered By: Yaron Peralta on 01-23-2025 Specific gravity (U) [Rel density] 1.010 1.002-1.030 [facility] Urine urobilinogen measureme ntOrdered By: Yaron Peralta on 01-23-2025 Urobilinogen Ql (U) Normal mg/dl Normal [facility] White blood cell countOrdere d By: Yaron Peralta on 01-23-2025 White blood cell count 0-5 SEEN /hpf 0-5 [facility] Absolute lymphocyte countOrd ered By: Javier Isabel on 01-20-2025 Lymphocytes Auto (Unsp spec) [#/Vol] 3.05 10*3/uL 0.83-4.51 [facility] Absolute neutrophil countOrd ered By: Javier Isabel on 01-20-2025 Neutrophils (Bld) [#/Vol] 6.1 10*3/uL 2.0-7.7 [facility] Anion gap in Serum or Plasma Ordered By: Javier Isabel on 01-20-2025 Anion gap [Moles/Vol] 12 mmol/L 5-15 [facility] Automated lymphocyte count a s percentage of total leukocytesOrdered By: Javier Isabel on 01-20-2025 Lymphocytes/100 WBC Auto (Unsp spec) 30.2 % 19-41 [facility] BUN/creatinine ratioOrdered By: Javier Isabel on 01-20-2025 Urea nitrogen/Creatinine [Mass ratio] 8.7 mg/mg Low 10-20 [facility] Basophil percentageOrdered B y: Javier Isabel on 01-20-2025 Basophils/100 WBC (Bld) 0.9 % 0-1 [facility] Bilirubin Test strip Ql (U)O rdered By: Javier Isabel on 01-20-2025 Bilirubin Ql (U) Negative Negative [facility] Bilirubin, totalOrdered By: Javier Isabel on 01-20-2025 Bilirubin [Mass/Vol] 0.67 mg/dL 0.00-1.30 [facility] CBC W/Diff, Automatedon 05-3 0-202 Absolute Lymph 3.05 X10 3/uL Normal 0.83-4.51 [facility] Comment on above: Performed By: #### L 700.6800, L501.2450, L500.4050, L100.0100 ####[facility] [address] [place], [address] Absolute Neut 6.1 X10 3/uL Normal 2.0-7.7 [facility] Comment on above: Performed By: #### L 700.6800, L501.2450, L500.4050, L100.0100 ####[facility] [address] [place], [address] Basophils/100 WBC (Bld) 0.9 % Normal 0-1 [facility] Comment on above: Performed By: #### L 700.6800, L501.2450, L500.4050, L100.0100 ####[facility] [address] [place], [address] Eosinophils/100 WBC (Bld) 1.9 % Normal 0-5 [facility] Comment on above: Performed By: #### L 700.6800, L501.2450, L500.4050, L100.0100 ####[facility] [address] [place], [address] Erythrocyte distribution width (RBC) [Ratio] 11.8 % Normal 11.6-14.6 [facility] Comment on above: Performed By: #### L 700.6800, L501.2450, L500.4050, L100.0100 ####[facility] [address] [place], [address] Hematocrit (Bld) [Volume fraction] 40.5 % Normal 37-47 [facility] Comment on above: Performed By: #### L 700.6800, L501.2450, L500.4050, L100.0100 ####[facility] [address] [place], [address] Hemoglobin (Bld) [Mass/Vol] 13.5 g/dL Normal 12.0-15.0 [facility] Comment on above: Performed By: #### L 700.6800, L501.2450, L500.4050, L100.0100 ####[facility] [address] [place], [address] IG% 0.300 Normal 0.0-0.9 [facility] Comment on above: Result Comment: IG% - Immature Granulocytes (promyelocytes, myelocytes and metamyelocytes) > 1% indicates that a LEFT SHIFT is Present. Performed By: #### L 700.6800, L501.2450, L500.4050, L100.0100 ####[facility] [address] [place], [address] Lymphocytes/100 WBC (Bld) 30.2 % Normal 19-41 [facility] Comment on above: Performed By: #### L 700.6800, L501.2450, L500.4050, L100.0100 ####[facility] [address] [place], [address] MCH (RBC) [Entitic mass] 28.7 pg Normal 27.0-32.0 [facility] Comment on above: Performed By: #### L 700.6800, L501.2450, L500.4050, L100.0100 ####[facility] [address] [place], [address] MCHC (RBC) [Mass/Vol] 33.3 g/dL Normal 32-36 [facility] Comment on above: Performed By: #### L 700.6800, L501.2450, L500.4050, L100.0100 ####[facility] [address] [place], [address] MCV (RBC) [Entitic vol] 86.2 fL Normal 81-99 [facility] Comment on above: Performed By: #### L 700.6800, L501.2450, L500.4050, L100.0100 ####[facility] [address] [place], [address] Monocytes/100 WBC (Bld) 6.6 % Normal 0-10 [facility] Comment on above: Performed By: #### L 700.6800, L501.2450, L500.4050, L100.0100 ####[facility] [address] [place], [address] Neutrophils/100 WBC (Bld) 60.1 % Normal 47-70 [facility] Comment on above: Performed By: #### L 700.6800, L501.2450, L500.4050, L100.0100 ####[facility] [address] [place], [address] Nucleated RBC (Bld) [#/Vol] 0 10*3/uL Normal 0-5 [facility] Comment on above: Performed By: #### L 700.6800, L501.2450, L500.4050, L100.0100 ####[facility] [address] [place], [address] Platelet mean volume (Bld) [Entitic vol] 10.1 fL Normal 6.2-12.0 [facility] Comment on above: Performed By: #### L 700.6800, L501.2450, L500.4050, L100.0100 ####[facility] [address] [place], [address] Platelets (Bld) [#/Vol] 358 10*3/uL Normal 150-450 [facility] Comment on above: Performed By: #### L 700.6800, L501.2450, L500.4050, L100.0100 ####[facility] [address] [place], [address] RBC (Bld) [#/Vol] 4.70 10*6/uL Normal 4.2-5.4 [facility] Comment on above: Performed By: #### L 700.6800, L501.2450, L500.4050, L100.0100 ####[facility] [address] [place], [address] RDW SD 37.2 fl Normal 35.1-43.9 [facility] Comment on above: Performed By: #### L 700.6800, L501.2450, L500.4050, L100.0100 ####[facility] [address] [place], [address] WBC (Bld) [#/Vol] 10.1 10*3/uL Normal 4.4-11.0 [facility] Comment on above: Performed By: #### L 700.6800, L501.2450, L500.4050, L100.0100 ####[facility] [address] [place], [address] CT Chest, Abd, Pel w/Contras ton 01-20-2025 CT Chest, Abd, Pel w/Contrast [facility] Services [address] [place] [address] CT Chest, Abd, Pel w/Contrast MR#: [id number] Acct: [id number] Name: LUIS BARAJAS Rep #: [id number] : 2005 F 19 From: José Luis Robison PCP: Dr. Mitzy Fung MD Status: REG ER Study: CT Chest, Abd, Pel w/Contrast Date of Exam: Exam# [id number] Ordering Dr: Javier Isabel DO PROCEDURE: CT [...] on series 2, image 66. Reading Location: [facility] CC: Dr. Javier Isabel DO; Dr. Mitzy Fugn MD Rehab Tech: Signed Normal [facility] Carbon dioxide, total [Moles /volume] in Central venous bloodOrdered By: Javier Isabel on 01-20-2025 CO2 [Moles/Vol] 21.7 mmol/L 21.0-32.0 [facility] Chloride assayOrdered By: Sana Isabel on 01-20-2025 Chloride [Moles/Vol] 105 mmol/L 98-108 [facility] Comprehensive Metabolic Prof ilon 01-20-2025 Albumin [Mass/Vol] 4.7 g/dL Normal 3.5-5.0 [place] Comment on above: Performed By: #### L 700.6800, L501.2450, L500.4050, L100.0100 ####[facility] [address] [place], [address] Albumin/Globulin [Mass ratio] 1.6 {ratio} Normal 0.9-2.4 [facility] Comment on above: Performed By: #### L 700.6800, L501.2450, L500.4050, L100.0100 ####[facility] [address] [place], [address] ALK PHOS 58 U/L Normal 35-104 [facility] Comment on above: Performed By: #### L 700.6800, L501.2450, L500.4050, L100.0100 ####[facility] [address] [place], [address] ALT [Catalytic activity/Vol] 13 U/L Normal <=34 [facility] Comment on above: Performed By: #### L 700.6800, L501.2450, L500.4050, L100.0100 ####[facility] [address] [place], [address] AST [Catalytic activity/Vol] 25 U/L Normal <=31 [facility] Comment on above: Performed By: #### L 700.6800, L501.2450, L500.4050, L100.0100 ####[facility] [address] [place], [address] Bilirubin [Mass/Vol] 0.67 mg/dL Normal 0.00-1.30 [facility] Comment on above: Performed By: #### L 700.6800, L501.2450, L500.4050, L100.0100 ####[facility] [address] [place], [address] BUN/CRE 8.7 RATIO Low 10-20 [facility] Comment on above: Performed By: #### L 700.6800, L501.2450, L500.4050, L100.0100 ####[facility] [address] [place], [address] Calcium [Mass/Vol] 9.7 mg/dL Normal 7.6-11.0 [place] Comment on above: Performed By: #### L 700.6800, L501.2450, L500.4050, L100.0100 ####[facility] [address] [place], [address] Chloride [Moles/Vol] 105 mmol/L Normal 98-108 [facility] Comment on above: Performed By: #### L 700.6800, L501.2450, L500.4050, L100.0100 ####[facility] [address] [place], [address] CO2 [Moles/Vol] 21.7 mmol/L Normal 21.0-32.0 [facility] Comment on above: Performed By: #### L 700.6800, L501.2450, L500.4050, L100.0100 ####[facility] [address] [place], [address] Creatinine [Mass/Vol] 0.94 mg/dL Normal 0.70-1.20 [facility] Comment on above: Performed By: #### L 700.6800, L501.2450, L500.4050, L100.0100 ####[facility] [address] [place], [address] ECRCL 86.62 ml/min Normal 50-250 [facility] Comment on above: Performed By: #### L 700.6800, L501.2450, L500.4050, L100.0100 ####[facility] [address] [place], [address] GAP 12 Normal 5-15 [facility] Comment on above: Performed By: #### L 700.6800, L501.2450, L500.4050, L100.0100 ####[facility] [address] [place], [address] GFR/1.73 sq M.predicted among non-blacks MDRD (S/P/Bld) [Vol rate/Area] 89 mL/min/{1.73_m2} Normal >60 [facility] Comment on above: Result Comment: mL/m in/1.73m2 CKD-EPI Creatinine Equation (2020) Performed By: #### L 700.6800, L501.2450, L500.4050, L100.0100 ####[facility] [address] [place], [address] Globulin (S) [Mass/Vol] 3.0 g/dL Normal 2.2-4.2 [facility] Comment on above: Performed By: #### L 700.6800, L501.2450, L500.4050, L100.0100 ####[facility] [address] [place], [address] Glucose [Mass/Vol] 92 mg/dL Normal 70-99 [place] Comment on above: Performed By: #### L 700.6800, L501.2450, L500.4050, L100.0100 ####[facility] [address] [place], [address] Potassium [Moles/Vol] 3.9 mmol/L Normal 3.3-5.1 [facility] Comment on above: Performed By: #### L 700.6800, L501.2450, L500.4050, L100.0100 ####[facility] [address] [place], [address] Sodium [Moles/Vol] 139 mmol/L Normal 133-145 [place] Comment on above: Performed By: #### L 700.6800, L501.2450, L500.4050, L100.0100 ####[facility] [address] [place], [address] T PROT 7.7 g/dL Normal 5.9-8.4 [facility] Comment on above: Performed By: #### L 700.6800, L501.2450, L500.4050, L100.0100 ####[facility] [address] [place], [address] Urea nitrogen [Mass/Vol] 8 mg/dL Normal 4-19 [facility] Comment on above: Performed By: #### L 700.6800, L501.2450, L500.4050, L100.0100 ####[facility] [address] [place], [address] Emergency Department Summary on 01-20-2025 Emergency Department Summary [facility] Medical Records Department [address] [place] [address] Emergency Department Summary 01/20/25 MR#: [id number] Acct: [id number] Name: LUIS BARAJAS Rep #: [id number] : 2005 19 From: Javier Isabel DO [...] days. Patient denies any fevers or chills. [facility] Medical History Wears glasses Bipolar disorder [...] x3, CN's (more content not included)... Normal [facility] Eosinophil percentageOrdered By: Javier Isabel on 01-20-2025 Eosinophils/100 WBC (Bld) 1.9 % 0-5 [facility] Erythrocyte distribution wid th ratioOrdered By: Javier Isabel on 01-20-2025 Erythrocyte distribution width (RBC) [Ratio] 11.8 % 11.6-14.6 [facility] Erythrocyte distribution wid th standard deviationOrdered By: Javier Isabel on 01-20-2025 Erythrocyte distribution width (RBC) [Ratio] 37.2 fl 35.1-43.9 [facility] Glomerular filtration rate ( GFR) estimation/1.73 sq m using serum, plasma, or whole bOrdered By: Javier Isabel on 01-20-2025 GFR/1.73 sq M.predicted among non-blacks MDRD (S/P/Bld) [Vol rate/Area] 89 mL/min/{1.73_m2} >60 [facility] Comment on above: mL/min/1.73m2 CKD-EP I Creatinine Equation (2020) Hematocrit Auto (Bld) [Volum e fraction]Ordered By: Javier Isabel on 01-20-2025 Hematocrit (Bld) [Volume fraction] 40.5 % 37-47 [facility] Hemoglobin measurementOrdere d By: Javier Isabel on 01-20-2025 Hemoglobin (Bld) [Mass/Vol] 13.5 g/dL 12.0-15.0 [facility] Immature granulocytes/100 WB C Auto (Bld)Ordered By: Javier Isabel on 01-20-2025 Immature granulocytes/100 WBC (Bld) 0.300 % 0.0-0.9 [facility] Comment on above: IG% - Immature Granu locytes (promyelocytes, myelocytes and metamyelocytes) > 1% indicates that a LEFT SHIFT is Present. Ketones Test strip Ql (U)Ord ered By: Javier Isabel on 01-20-2025 Ketones Ql (U) Negative Negative [facility] Laboratory - Chemistry and C hemistry - challengeOrdered By: Javier Isabel on 01-20-2025 AST [Catalytic activity/Vol] 25 U/L <32 [facility] Lipaseon 01-20-2025 Lipase [Catalytic activity/Vol] 28 U/L Normal 13-75 [facility] Comment on above: Result Comment: Antonio castro note: LIPASE revised reference range effective 22. New Lipase methodology. Expected to produce lower values than the previous assay method. NEW Reference Range: 13 - 75 U/L Performed By: #### L 700.6800, L501.2450, L500.4050, L100.0100 ####[facility] [address] [place], [address] Lipase measurementOrdered By : Javier Isabel on 01-20-2025 Lipase [Catalytic activity/Vol] 28 U/L 13-75 [facility] Comment on above: Please note:LIPASE r evised reference range effective 22. New Lipase methodology. Expected to produce lower values than the previous assay method. NEW Reference Range: 13 - 75 U/L MCV (mean corpuscular volume ) determinationOrdered By: Javier Isabel on 01-20-2025 MCV (RBC) [Entitic vol] 86.2 fL 81-99 [facility] Mean corpuscular hemoglobin (MCH) determinationOrdered By: Javier Isabel on 01-20-2025 MCH (RBC) [Entitic mass] 28.7 pg 27.0-32.0 [facility] Mean corpuscular hemoglobin concentration (MCHC) determinationOrdered By: Javier Isabel on 01-20-2025 MCHC (RBC) [Mass/Vol] 33.3 g/dL 32-36 [facility] Mean platelet volume determi nationOrdered By: Javier Isabel on 01-20-2025 Platelet mean volume (Bld) [Entitic vol] 10.1 fL 6.2-12.0 [facility] Microscopic analysis of urin e for red blood cells (RBC)Ordered By: Javier Isabel on 01-20-2025 Microscopic analysis of urine for red blood cells (RBC) 0-5 SEEN /hpf 0-5 [facility] Monocyte percentageOrdered B y: Javier Isabel on 01-20-2025 Monocytes/100 WBC (Bld) 6.6 % 0-10 [facility] Mucus LM Ql (Urine sed)Order ed By: Javier Isabel on 01-20-2025 Mucus Ql (Urine sed) 0 SEEN /hpf [facility] Neutrophil percentageOrdered By: Javier Isabel on 01-20-2025 Neutrophils/100 WBC (Bld) 60.1 % 47-70 [facility] Nitrite Test strip Ql (U)Ord ered By: Javier Isabel on 05-30-2025 Nitrite Ql (U) Negative Negative [facility] Nucleated red blood cell per centageOrdered By: Javier Isabel on 01-20-2025 Nucleated RBC/100 WBC (Bld) [Ratio] 0 % 0-5 [facility] Platelet countOrdered By: Sana Isabel on 01-20-2025 Platelets (Bld) [#/Vol] 358 10*3/uL 150-450 [facility] Potassium measurement (mass/ volume)Ordered By: Javier Isabel on 01-20-2025 Potassium (Unsp spec) [Mass/Vol] 3.9 mmol/L 3.3-5.1 [facility] ,Serum,hCG Quali.on 01-20-2025 HCG, SERUM QUAL Negative Normal [facility] Comment on above: Performed By: #### L 700.6800, L501.2450, L500.4050, L100.0100 ####[facility] [address] [place], [place], [id number] Protein Test strip Ql (U)Ord ered By: Javier Isabel on 01-20-2025 Protein Ql (U) 15 mg/dl High Negative [facility] RBC Auto (Bld) [#/Vol]Ordere d By: Javier Isabel on 01-20-2025 RBC (Bld) [#/Vol] 4.70 10*6/uL 4.2-5.4 [facility] Serum beta-hCG test, qualita tiveOrdered By: Javier Isabel on 01-20-2025 Beta HCG ( test) Ql Negative [facility] Serum creatinine measurement (mass/volume)Ordered By: Javier Isabel on 01-20-2025 Creatinine [Mass/Vol] 0.94 mg/dL 0.70-1.20 [facility] Serum globulin measurementOr dered By: Javier Isabel on 01-20-2025 Globulin (S) [Mass/Vol] 3.0 g/dL 2.2-4.2 [facility] Serum glucose measurement (m ass/volume)Ordered By: Javier Isabel on 01-20-2025 Glucose [Mass/Vol] 92 mg/dL 70-99 [place] Serum or plasma alanine lowe otransferase (ALT) measurementOrdered By: Javier Isabel on 01-20-2025 ALT [Catalytic activity/Vol] 13 U/L <35 [facility] Serum or plasma albumin vel urement (mass/volume)Ordered By: Javier Isabel on 01-20-2025 Albumin [Mass/Vol] 4.7 g/dL 3.5-5.0 [place] Serum or plasma albumin/glob ulin mass ratioOrdered By: Javier Isabel on 01-20-2025 Albumin/Globulin [Mass ratio] 1.6 {ratio} 0.9-2.4 [facility] Serum or plasma alkaline jeromy sphatase measurementOrdered By: Javier Isabel on 01-20-2025 ALP [Catalytic activity/Vol] 58 U/L 35-104 [facility] Serum or plasma calcium vel urement (mass/volume)Ordered By: Javier Isabel on 01-20-2025 Calcium [Mass/Vol] 9.7 mg/dL 7.6-11.0 [place] Serum or plasma urea nitroge n measurement (mass/volume)Ordered By: Javier Isabel on 01-20-2025 Urea nitrogen [Mass/Vol] 8 mg/dL 4-19 [facility] Sodium levelOrdered By: Javier Isabel on 01-20-2025 Sodium [Moles/Vol] 139 mmol/L 133-145 [place] Squamous epithelial cells de tection in urine sediment by light microscopyOrdered By: Javier Isabel on 01-20-2025 Epithelial cells.squamous LM Ql (Urine sed) 0 SEEN /hpf 5-10 [facility] Total proteinOrdered By: Lina Isabel on 01-20-2025 Protein [Mass/Vol] 7.7 g/dL 5.9-8.4 [place] Urinalysis, Completeon 01-20 RBC 0-5 SEEN Normal 0-5 [facility] Comment on above: Order Comment: CLEAN CATCH Performed By: #### L 400.0001 ####[facility] [address] [place], [address] WBC 0-5 SEEN Normal 0-5 [facility] Comment on above: Order Comment: CLEAN CATCH Performed By: #### L 400.0001 ####[facility] [address] [place], [address] BACTERIA 0 SEEN Normal None Seen [facility] Comment on above: Order Comment: CLEAN CATCH Performed By: #### L 400.0001 ####[facility] [address] [place], [address] EPI,SQUAMOUS 0 SEEN Normal 5-10 [facility] Comment on above: Order Comment: CLEAN CATCH Performed By: #### L 400.0001 ####[facility] [address] [place], [address] Mucus Ql (Urine sed) 0 SEEN Normal [facility] Comment on above: Order Comment: CLEAN CATCH Performed By: #### L 400.0001 ####[facility] [facility] [id number] [place], [place], [address] Urine clarityOrdered By: Lina Isabel on 01-20-2025 Clarity (U) Clear Clear [facility] Urine color determinationOrd ered By: Javier Isabel on 01-20-2025 Color (U) Straw Yellow [facility] Urine glucose detectionOrder ed By: Javier Isabel on 01-20-2025 Glucose Ql (U) Normal mg/dl Normal [facility] Urine leukocyte esterase det ection by dipstickOrdered By: Javier Isabel on 01-20-2025 Leukocyte esterase Test strip Ql (U) Negative Negative [facility] Urine pHOrdered By: Javier dow on 01-20-2025 pH (U) 7.0 [pH] 5.0 - 8.0 [facility] Urine sediment bacteria coun t by microscopy (number/high power field)Ordered By: Javier Isabel on 01-20-2025 Bacteria LM.HPF (Urine sed) [#/Area] 0 /[HPF] None Seen [facility] Urine specific gravity measu rementOrdered By: Javier Isabel on 01-20-2025 Specific gravity (U) [Rel density] 1.010 1.002-1.030 [facility] Urine urobilinogen measureme ntOrdered By: Javier Isabel on 01-20-2025 Urobilinogen Ql (U) Normal mg/dl Normal [facility] White blood cell (WBC) count Ordered By: Javier Isabel on 01-20-2025 WBC (Bld) [#/Vol] 10.1 10*3/uL 4.4-11.0 [facility] White blood cell countOrdere d By: Javier Isabel on 01-20-2025 White blood cell count 0-5 SEEN /hpf 0-5 [facility] C-REACTIVE PROTEINon 025 CRP [Mass/Vol] mg/L Invalid Interpretation Code <= 1.0 mg/dL [facility] Comment on above: Order Comment: Relea se [...] to generate a CRP response. Verified By: [id number] C-reactive protein (Lab Fred ect)on 09-07-2024 CRP [Mass/Vol] <= 1.0 mg/dL MG/DL [facility] Comment on above: CRP determinations i n neonates should be interpreted with caution. CRP may be elevated in circumstances not associated with inflammation (e.g. difficult delivery, pneumothorax). In premature neonates CRP levels may not rise to abnormal levels even if sepsis is present; some speculate that immature liver function decreases the ability to generate a CRP response. Verified By: [id number] COMPLETE BLOOD COUNT WITH DI FFERENTIALon 09-07-2024 Basophil \P\ 0.08 10E3/???L High 0.02-0.06 [facility] Comment on above: Order Comment: Relea se to patient->Automatic Basophils/100 WBC (Bld) 0.7 % Invalid Interpretation Code 0.3-0.9 [facility] Comment on above: Order Comment: Relea se to patient->Automatic Eosinophil \P\ 0.17 10E3/???L Invalid Interpretation Code 0.04-0.27 [facility] Comment on above: Order Comment: Relea se to patient->Automatic Eosinophils/100 WBC (Bld) 1.4 % Invalid Interpretation Code 0.6-3.8 [facility] Comment on above: Order Comment: Relea se to patient->Automatic Erythrocyte distribution width (RBC) [Ratio] 12.4 % Invalid Interpretation Code 11.9-14.8 [facility] Comment on above: Order Comment: Relea se to patient->Automatic Hematocrit (Bld) [Volume fraction] 46.4 % High 35.5-44.6 [facility] Comment on above: Order Comment: Relea se to patient->Automatic Hemoglobin (Bld) [Mass/Vol] 15.1 g/dL High 11.4-14.8 [facility] Comment on above: Order Comment: Relea se to patient->Automatic Immature granulocytes/100 WBC (Bld) 0.3 % Invalid Interpretation Code 0.2-0.5 [facility] Comment on above: Order Comment: Relea se to patient->Automatic Result Comment: Jina ture Granulocyte Percent includes promyelocytes, myelocytes,and metamyelocytes. IG% > 1.0 indicates a left shift is present. With automated differentials, bands are included in the neutrophil count and not in the Immature Granulocyte Percent. Lymphocyte \P\ 3.57 10E3/???L High 1.51-2.99 [facility] Comment on above: Order Comment: Relea se to patient->Automatic Lymphocytes/100 WBC (Bld) 29.2 % Invalid Interpretation Code 21.8-42.1 [facility] Comment on above: Order Comment: Relea se to patient->Automatic MCH (RBC) [Entitic mass] 28.2 pg Invalid Interpretation Code 25.7-31.2 [facility] Comment on above: Order Comment: Relea se to patient->Automatic MCHC 32.5 % Invalid Interpretation Code 31.3-34.0 [facility] Comment on above: Order Comment: Relea se to patient->Automatic MCV (RBC) [Entitic vol] 86.6 fL Invalid Interpretation Code 80.7-93.7 [facility] Comment on above: Order Comment: Relea se to patient->Automatic Monocyte \P\ 0.89 10E3/???L High 0.36-0.77 [facility] Comment on above: Order Comment: Relea se to patient->Automatic Monocytes/100 WBC (Bld) 7.3 % Invalid Interpretation Code 5.6-10.2 [facility] Comment on above: Order Comment: Relea se to patient->Automatic Neutrophil \P\ 7.46 10E3/???L High 2.43-6.42 [facility] Comment on above: Order Comment: Relea se to patient->Automatic Neutrophils/100 WBC (Bld) 61.1 % Invalid Interpretation Code 46.0-68.6 [facility] Comment on above: Order Comment: Relea se to patient->Automatic Nucleated RBC/100 WBC (Bld) [Ratio] 0.0 % Invalid Interpretation Code 0.0-0.0 [facility] Comment on above: Order Comment: Relea se to patient->Automatic Platelet mean volume (Bld) [Entitic vol] 10.1 fL Invalid Interpretation Code 9.6-11.9 [facility] Comment on above: Order Comment: Relea se to patient->Automatic Platelets 412 10E3/???L High 150-400 [facility] Comment on above: Order Comment: Relea se to patient->Automatic RBC 5.36 10E6/???L High 4.03-4.91 [facility] Comment on above: Order Comment: Relea se to patient->Automatic WBC 12.2 10E3/???L High 4.9-10.0 [facility] Comment on above: Order Comment: Relea se to patient->Automatic COMPREHENSIVE METABOLIC PANE Joni 09-07-2024 Albumin [Mass/Vol] 4.7 g/dL Invalid Interpretation Code 3.5-5.0 [facility] Comment on above: Order Comment: Relea se to patient->Automatic Result Comment: Veri fied By: [id number] ALP [Catalytic activity/Vol] 62 U/L Invalid Interpretation Code 35-104 [facility] Comment on above: Order Comment: Relea se to patient->Automatic Result Comment: Veri fied By: [id number] ALT [Catalytic activity/Vol] 12 U/L Invalid Interpretation Code <=34 [facility] Comment on above: Order Comment: Relea se to patient->Automatic Result Comment: Veri fied By: [id number] AST [Catalytic activity/Vol] 30 U/L Invalid Interpretation Code <=31 [facility] Comment on above: Order Comment: Relea se to patient->Automatic Result Comment: Veri fied By: [id number] BILI,TOTAL 0.7 mg/dL Invalid Interpretation Code <=1.0 [facility] Comment on above: Order Comment: Relea se to patient->Automatic Result Comment: Veri fied By: [id number] Calcium [Mass/Vol] 10.5 mg/dL Invalid Interpretation Code 7.6-11.0 [facility] Comment on above: Order Comment: Relea se to patient->Automatic Result Comment: Veri fied By: [id number] Chloride [Moles/Vol] 102 mmol/L Invalid Interpretation Code 96-108 [facility] Comment on above: Order Comment: Relea se to patient->Automatic Result Comment: Veri fied By: [id number] CO2 [Moles/Vol] 26.1 mmol/L Invalid Interpretation Code 22.0-29.0 [facility] Comment on above: Order Comment: Relea se to patient->Automatic Result Comment: Veri fied By: [id number] Creatinine [Mass/Vol] 0.79 mg/dL Invalid Interpretation Code 0.50-1.00 [facility] Comment on above: Order Comment: Relea se to patient->Automatic Result Comment: Veri fied By: [id number] GFR/1.73 sq M.predicted among non-blacks MDRD (S/P/Bld) [Vol rate/Area] mL/min/{1.73_m2} Invalid Interpretation Code >=60 [facility] Comment on above: Order Comment: Relea se to patient->Automatic Glucose [Mass/Vol] 98 mg/dL Invalid Interpretation Code 70-99 [facility] Comment on above: Order Comment: Relea se [...] plus Classic Symptoms of Diabetes Verified By: [id number] Potassium [Moles/Vol] 4.1 mmol/L Invalid Interpretation Code 3.3-5.1 [facility] Comment on above: Order Comment: Relea se to patient->Automatic Result Comment: Veri fied By: [id number] Protein [Mass/Vol] 8.0 g/dL Invalid Interpretation Code 5.9-8.4 [facility] Comment on above: Order Comment: Relea se to patient->Automatic Result Comment: Veri fied By: [id number] Sodium [Moles/Vol] 141 mmol/L Invalid Interpretation Code 133-145 [facility] Comment on above: Order Comment: Relea se to patient->Automatic Result Comment: Veri fied By: [id number] Urea nitrogen [Mass/Vol] 13 mg/dL Invalid Interpretation Code 4-19 [facility] Comment on above: Order Comment: Relea se to patient->Automatic Result Comment: Veri fied By: [id number] Complete Blood Count with Di fferentialOrdered By: Lindy Greer on 09-07-2024 Basophils (Bld) [#/Vol] 0.08 10*3/uL High [facility] Basophils/100 WBC (Bld) 0.7 % 0.3 - 0.9 % [facility] Eosinophils (Bld) [#/Vol] 0.17 10*3/uL [facility] Eosinophils/100 WBC (Bld) 1.4 % 0.6 - 3.8 % [facility] Erythrocyte distribution width (RBC) [Ratio] 12.4 % 11.9 - 14.8 % [facility] Hematocrit (Bld) [Volume fraction] 46.4 % High 35.5 - 44.6 % [facility] Hemoglobin (Bld) [Mass/Vol] 15.1 g/dL High 11.4 - 14.8 g/dL [facility] Immature granulocytes/100 WBC (Bld) 0.3 % 0.2 - 0.5 % [facility] Comment on above: Immature Granulocyte Percent includes promyelocytes, myelocytes,and metamyelocytes. IG% > 1.0 indicates a left shift is present. With automated differentials, bands are included in the neutrophil count and not in the Immature Granulocyte Percent. Interpretation and review of laboratory results Abnormal [facility] Lymphocytes (Bld) [#/Vol] 3.57 10*3/uL [facility] Lymphocytes/100 WBC (Bld) 29.2 % 21.8 - 42.1 % [facility] MCH (RBC) [Entitic mass] 28.2 pg 25.7 - 31.2 pg [facility] MCHC (RBC) [Mass/Vol] 32.5 % 31.3 - 34.0 % [facility] MCV (RBC) [Entitic vol] 86.6 fL 80.7 - 93.7 fL [facility] Monocytes (Bld) [#/Vol] 0.89 10*3/uL [facility] Monocytes/100 WBC (Bld) 7.3 % 5.6 - 10.2 % [facility] Neutrophils (Bld) [#/Vol] 7.46 10*3/uL [facility] Neutrophils/100 WBC (Bld) 61.1 % 46.0 - 68.6 % [facility] Nucleated RBC/100 WBC (Bld) [Ratio] 0 % 0.0 - 0.0 % [facility] Platelet mean volume (Bld) [Entitic vol] 10.1 fL 9.6 - 11.9 fL [facility] Platelets (Bld) [#/Vol] 412 10*3/uL [facility] RBC (Bld) [#/Vol] 5.36 10*6/uL [facility] WBC (Bld) [#/Vol] 12.2 10*3/uL [facility] Comprehensive metabolic pane l (Lab Collect)on 09-07-2024 Albumin BCG dye [Mass/Vol] 4.7 g/dL 3.5 - 5.0 g/dL [facility] Comment on above: Verified By: [id number] ALP [Catalytic activity/Vol] 62 U/L 35 - 104 U/L [facility] Comment on above: Verified By: [id number] ALT With P-5'-P [Catalytic activity/Vol] 12 U/L [facility] - 34 U/L [facility] Comment on above: Verified By: [id number] AST With P-5'-P [Catalytic activity/Vol] 30 U/L [facility] - 31 U/L [facility] Comment on above: Verified By: [id number] Bilirubin [Mass/Vol] 0.7 mg/dL [facility] - 1.0 mg/dL [facility] Comment on above: Verified By: [id number] Calcium [Mass/Vol] 10.5 mg/dL 7.6 - 11. 0 mg/dL [facility] Comment on above: Verified By: [id number] Chloride [Moles/Vol] 102 mmol/L 96 - 108 mmol/L [facility] Comment on above: Verified By: [id number] Creatinine [Mass/Vol] 0.79 mg/dL 0.50 - 1.00 mg/dL [facility] Comment on above: Verified By: [id number] eGFR - PINF [facility] Glucose [Mass/Vol] 98 mg/dL 70 - 99 mg/dL [facility] Comment on above: Criteria for Diagnos is of Diabetes: Fasting Specimen (no caloric intake for at least 8 hours): <100 mg/dL Normal 100-125 mg/dL Increased risk for Diabetes >125 mg/dL Diagnostic for Diabetes Random Glucose (any time of day without regard to last meal): > or = 200 mg/dL plus Classic Symptoms of Diabetes Verified By: [id number] HCO3 (P) [Moles/Vol] 26.1 mmol/L 22.0 - 29.0 mmol/L [facility] Comment on above: Verified By: [id number] Potassium (BldA) [Moles/Vol] 4.1 mmol/L 3.3 - 5.1 mmol/L [facility] Comment on above: Verified By: [id number] Protein [Mass/Vol] 8 g/dL 5.9 - 8.4 g/dL [facility] Comment on above: Verified By: [id number] Sodium [Moles/Vol] 141 mmol/L 133 - 145 mmol/L [facility] Comment on above: Verified By: [id number] Urea nitrogen [Mass/Vol] 13 mg/dL 4 - 19 mg/dL [facility] Comment on above: Verified By: [id number] HEMOGLOBIN A1Con 09-07-2024 HbA1c (Bld) [Mass fraction] 5.5 % Invalid Interpretation Code <=5.6 [facility] Comment on above: Order Comment: Tory castro to patient->Automatic Result Comment: Refe rence Interval: <5.7% 5.7-6.4% Prediabetes > or = 6.5% Diabetes Targets for diabetes management: Type I <7.5% Type II <7.0% Hemoglobin A1c (Lab Collect) on 09-07-2024 HbA1c (Bld) [Mass fraction] 5.5 % NINF - 5.6 % [facility] Comment on above: Reference Interval: <5.7% 5.7-6.4% Prediabetes > or = 6.5% Diabetes Targets for diabetes management: Type I <7.5% Type II <7.0% Interpretation and review of laboratory results Normal [facility] IMMUNOGLOBULIN Aon Immunoglobulin A 270 mg/dL Invalid Interpretation Code 61-348 [facility] Comment on above: Order Comment: Tory castro to patient->Automatic Immunoglobulin AOrdered By: Background Lab on 09-07-2024 IgA [Mass/Vol] 270 mg/dL 61 - 348 mg/dL [facility] Interpretation and review of laboratory results Normal [facility] No Panel Informationon 09-07 Interpretation and review of laboratory results Normal [facility] PREALBUMINon 09-07-2024 Prealbumin [Mass/Vol] 23 mg/dL Invalid Interpretation Code 20-42 [facility] Comment on above: Order Comment: Tory castro to patient->Automatic Prealbuminon 09-07-2024 Interpretation and review of laboratory results Normal [facility] Prealbumin [Mass/Vol] 23 mg/dL 20 - 42 mg/dL [facility] Progress Noteon 09-07-2024 [employer] Authentication Interface Message Text Patient ID: Luis [...] Visit and as needed. Check CXR at [facility] Normal chest xray Reviewed asthma plan [...] abdominal tenderness. Neurological: She is alert. Normal [facility] TRANSGLUTAMINASE IGAon 09-07 Transglutaminase IgA 1.69 U/mL Invalid Interpretation Code <=8.99 [facility] Comment on above: Order Comment: Inter pretation of Results: Negative: <9.0 AU/mL Equivocal: 9.0-16.0 AU/mL Positive: >16.0 AU/mL Method: The anti-tTG antibodies were determined using an FRANKY-based commercially available kit ([facility]). Release to patient->Automatic TSH WITH REFLEX TO T4, FREEo n 09-07-2024 TSH 1.030 ???IU/mL Invalid Interpretation Code 0.500-4.300 [facility] Comment on above: Order Comment: Relea se to patient->Automatic TSH with Reflex to T4, Free (Lab Collect)on 09-07-2024 Interpretation and review of laboratory results Normal [facility] TSH Qn 1.03 m[IU]/L [facility] Chest PA and Lateralon 08-29 Chest PA and Lateral [facility] Imaging Services [address] [place] [address] [id number] Chest PA and Lateral MR#: [id number] Acct: [id number] Name: LUIS BARAJAS Rep #: [id number] : 2005 F 19 From: Jennie dutta MD PCP: Dr. Mitzy Fung MD Status: [facility] Study: Chest PA and Lateral Date of Exam: 08/29/24 Exam# [id number] Ordering Dr: Lois Conde MD -[id number] HISTORY: PNEUMONIA. TECHNIQUE: XR Chest 2 [...] Mitzy Fung MD; Dr. Lois Conde MD Rehab Tech: Signed Normal [facility] Progress Noteon 08-29-2024 [employer] Authentication Interface Message Text Patient ID: Luis [...] no rhonchi. Neurological: She is alert. Normal [facility] CNOVon 08-27-2024 CNOV Office Visit ([facility]) ---- LUIS BARAJAS ([id number]) 5 F Date Time Provider Department 08/27/24 11:45 AM JASMIN ENRIQUEZ [facility] During your visit today, we recorded the following information about you: Temperature Pulse Respiration Blood pressure 98.4 degrees 106/minute 20/minute 110/78 Weight 57.1 kg Jasmin Enriquez APRN.MEDICAL STAFF PHYSICIAN 08/27/2024 12:30 PM Addendum ASSESSMENT/PLAN: 1. Sore [...] Discussed expected course of illness Jasmin Enriquez APRN.MEDICAL STAFF PHYSICIAN Previous hospitalization care team: Attending Provider: Ernestina Lanza MD (attending for admission) Consulting: Tirso Richey MD (ENT) Consulting: Jason Uriostegui MD (infectious disease) Jasmin Enriquez APRN.MEDICAL STAFF PHYSICIAN 08/27/2024 12:30 PM Signed Subjective Ear Pain [...] Passive e (more content not included)... Normal [facility] COVID AND INFLUENZA A/B AND RSV PCR, ROUTINEon 08-27-2024 SARS-CoV-2 (COVID-19) RNA JAIRON+probe Ql (Unsp spec) SARS-COV-2 (AGENT OF COVID-19) RNA: Not detected INFLUENZA A RNA: Not detected INFLUENZA B RNA: Not detected RESPIRATORY SYNCYTIAL VIRUS (RSV) RNA: Not detected Normal [facility] Comment on above: Performed By: #### C VFLRS ####[facility] LABCLIA [id number] [place] [address] [place] STREP A MOLECULAR (POC)on Procedural Control Valid [facility] Strep A (POCT) Negative Negative [facility] Urine Cultureon 06-17-2024 [facility] Escherichia coli [place] Count 50,000-80,000 Escherichia coli: REACTION Ampicillin Islt [...] TMP SMX Islt [place] <=20 S Normal [facility] Comment on above: Performed By: #### M [id number] ####[facility] [id number] [place], [address] CNDSon 04-26-2024 [facility] HNO ID: [id number] Author: ERNESTINA LANZA MD Service: Hospital Medicine [...] PCOS, asthma, URIEL. Patient was transferred from [facility] today for concerns of 2 [...] sore throat associated with dysphagia At the [place] [facility] CT neck with IV contrast showing [...] mg tablet Commo (more content not included)... [facility] CONSULTon 04-25-2024 CONSULT HNO ID: [id number] Author: JASON URIOSTEGUI MD Service: Infectious Disease [...] well. Was given an oral cephalosporin by boring machine operator double end late last week. States that feeling better [...] COVID-19 original vaccine, age 12+ yr, monovalent ([employer] - PURPLE TOP) 04/30/2021 05/22/2021 Haemophilus influenzae [...] April 25, 2024 TIME: 10:44 AM Normal [facility] Basic Metabolic Panelon Anion gap [Moles/Vol] 7 mmol/L Normal 4-14 [facility] ([place]) Comment on above: Performed By: #### B MP #### [facility] [address] [place] [address] Calcium [Mass/Vol] 9.1 mg/dL Normal 8.5-10.5 [facility] ([place]) Comment on above: Performed By: #### B MP #### [facility] [address] [place] [address] Chloride [Moles/Vol] 106 mmol/L Normal 98-107 [facility] ([place]) Comment on above: Performed By: #### B MP #### [facility] [address] [place] [address] CO2 [Moles/Vol] 25 mmol/L Normal 21-31 [facility] ([place]) Comment on above: Performed By: #### B MP #### [facility] [address] [place] [address] Creatinine [Moles/Vol] 0.61 mg/dL Normal 0.60-1.[address] [facility] ([place]) Comment on above: Performed By: #### B MP #### [facility] [address] [place] [address] Creatinine and Glomerular filtration rate.predicted panel (S/P/Bld) 153 mL/min Normal >60 [facility] ([place]) Comment on above: Performed By: #### B MP #### [facility] [address] [place] [address] GFR/1.73 sq M.predicted among non-blacks MDRD (S/P/Bld) [Vol rate/Area] 126 mL/min/{1.73_m2} Normal >60 [facility] ([place]) Comment on above: Performed By: #### B MP #### [facility] [address] [place] [address] Glucose [Mass/Vol] 91 mg/dL Normal 70-99 [facility] ([place]) Comment on above: Performed By: #### B MP #### [facility] [address] [place] [address] Potassium [Moles/Vol] 3.7 mmol/L Normal 3.6-5.0 [facility] ([place]) Comment on above: Performed By: #### B MP #### [facility] [address] [place] [address] Sodium [Moles/Vol] 138 mmol/L Normal 135-145 [facility] ([place]) Comment on above: Performed By: #### B MP #### [facility] [address] [place] [address] Urea nitrogen [Mass/Vol] 12 mg/dL Normal 7-25 [facility] ([place]) Comment on above: Performed By: #### B MP #### [facility] [address] [place] [address] CBC W Auto Differential pane l (Bld)on 04-24-2024 Basophils (Bld) [#/Vol] 0.1 10*3/uL Normal 0.00-0.20 [facility] ([place]) Comment on above: Performed By: #### 5 [id number] #### [facility] [address] [place] [address] Basophils/100 WBC (Bld) 0.8 % Normal 0.0-1.[address] [facility] ([place]) Comment on above: Performed By: #### 5 7021-8 #### [facility] [address] [place] [address] Eosinophils (Bld) [#/Vol] 0.0 10*3/uL Normal 0.00-0.33 [facility] ([place]) Comment on above: Performed By: #### 5 7021-8 #### [facility] [address] [place] [address] Eosinophils/100 WBC (Bld) 0.3 % Normal 0.0-3.0 [facility] ([place]) Comment on above: Performed By: #### 5 7021-8 #### [facility] [address] [place] [address] Erythrocyte distribution width (RBC) [Ratio] 11.9 % Normal 10.9-14.3 [facility] ([place]) Comment on above: Performed By: #### 5 7021-8 #### [facility] [address] [place] [address] Hematocrit (Bld) [Volume fraction] 31.8 % Low 36.0-44.0 [facility] ([place]) Comment on above: Performed By: #### 5 7021-8 #### [facility] [address] [place] [address] Hemoglobin (Bld) [Mass/Vol] 10.8 g/dL Low 12.0-15.0 [facility] ([place]) Comment on above: Performed By: #### 5 7021-8 #### [facility] [address] [place] [address] Lymphocytes Auto (Unsp spec) [#/Vol] 1.9 10*3/uL Normal 1.10-4.80 [facility] ([place]) Comment on above: Performed By: #### 5 7021-8 #### [facility] [address] [place] [address] Lymphocytes/100 WBC (Bld) 13.2 % Low 24.0-44.0 [facility] ([place]) Comment on above: Performed By: #### 5 7021-8 #### [facility] [address] [place] [address] MCH (RBC) [Entitic mass] 29.1 pg Normal 28.0-34.0 [facility] ([place]) Comment on above: Performed By: #### 5 7021-8 #### [facility] [address] [place] [address] MCHC (RBC) [Mass/Vol] 34.1 g/dL Normal 33.0-37.0 [facility] ([place]) Comment on above: Performed By: #### 5 7021-8 #### [facility] [address] [place] [address] MCV (RBC) [Entitic vol] 85.2 fL Normal 80.0-100.[address] [facility] ([place]) Comment on above: Performed By: #### 5 7021-8 #### [facility] [address] [place] [address] Monocytes (Bld) [#/Vol] 1.2 10*3/uL High 0.20-0.70 [facility] ([place]) Comment on above: Performed By: #### 5 7021-8 #### [facility] [address] [place] [address] Monocytes/100 WBC (Bld) 8.2 % Normal 3.4-9.[address] [facility] ([place]) Comment on above: Performed By: #### 5 7021-8 #### [facility] [address] [place] [address] Neutrophils (Bld) [#/Vol] 11.2 10*3/uL High 1.83-8.70 [facility] ([place]) Comment on above: Performed By: #### 5 7021-8 #### [facility] [address] [place] [address] Neutrophils/100 WBC (Bld) 77.5 % High 40.0-74.0 [facility] ([place]) Comment on above: Performed By: #### 5 7021-8 #### [facility] [address] [place] [address] Platelet mean volume (Bld) [Entitic vol] 8.0 fL Normal 7.4-10.4 [facility] ([place]) Comment on above: Performed By: #### 5 7021-8 #### [address] [address] Platelets (Bld) [#/Vol] 350 10*3/uL Normal 150-450 [facility] ([place]) Comment on above: Performed By: #### 5 7021-8 #### [address] [address] RBC (Bld) [#/Vol] 3.73 10*6/uL Low 4.00-4.90 [facility] ([place]) Comment on above: Performed By: #### 5 7021-8 #### [facility] [address] [place] [address] WBC (Bld) [#/Vol] 14.4 10*3/uL High 4.5-11.0 [facility] ([place]) Comment on above: Performed By: #### 5 7021-8 #### [facility] [address] [place] [address] CBC panel Auto (Bld)on 04-24 Erythrocyte distribution width (RBC) [Ratio] 11.3 % Low 11.5-15.0 [facility] Comment on above: Order Comment: Speci men Type: BLOOD SPECIMEN Ordering Facility: [facility] Address: [address] [place] [address] Performed By: #### 5 8410-2 #### [facility] CLIA [id number] [address] [place] [address] [place] Hematocrit (Bld) [Volume fraction] 36.0 % Normal 36.0-46.0 [facility] Comment on above: Order Comment: Speci men Type: BLOOD SPECIMEN Ordering Facility: [facility] Address: [address] [place] [address] Performed By: #### 5 8410-2 #### [facility] CLIA [id number] [address] [place] [address] [place] Hemoglobin (Bld) [Mass/Vol] 12.2 g/dL Normal 11.5-15.5 [facility] Comment on above: Order Comment: Speci men Type: BLOOD SPECIMEN Ordering Facility: [facility] Address: [address] [place] [address] Performed By: #### 5 8410-2 #### [facility] CLIA [id number] [address] [place] [address] [place] MCH (RBC) [Entitic mass] 29.3 pg Normal 26.0-34.0 [facility] Comment on above: Order Comment: Speci men Type: BLOOD SPECIMEN Ordering Facility: [facility] Address: [address] [place], [place] [address] Performed By: #### 5 8410-2 #### [facility] CLIA [id number] [address] [place] [address] [place] MCHC (RBC) [Mass/Vol] 33.9 g/dL Normal 30.5-36.0 [facility] Comment on above: Order Comment: Speci men Type: BLOOD SPECIMEN Ordering Facility: [facility] Address: [address] [place] [address] Performed By: #### 5 8410-2 #### [facility] CLIA [id number] [address] [place] [address] [place] MCV (RBC) [Entitic vol] 86.3 fL Normal 80.0-100.0 [facility] Comment on above: Order Comment: Speci men Type: BLOOD SPECIMEN Ordering Facility: [facility] Address: [address] [place] [address] Performed By: #### 5 8410-2 #### [facility] CLIA [id number] [address] [place] [address] [place] Nucleated RBC (Bld) [#/Vol] 10*3/uL Normal <0.01 [facility] Comment on above: Order Comment: Speci men Type: BLOOD SPECIMEN Ordering Facility: [facility] Address: [address] [place] [address] Performed By: #### 5 8410-2 #### [facility] CLIA [id number] [address] [place] [address] [place] Platelet mean volume (Bld) [Entitic vol] 9.7 fL Normal 9.0-12.7 [facility] Comment on above: Order Comment: Speci men Type: BLOOD SPECIMEN Ordering Facility: [facility] Address: [address] [place] [address] Performed By: #### 5 8410-2 #### [facility] CLIA [id number] [address] [place] [address] [place] Platelets (Bld) [#/Vol] 391 10*3/uL Normal 150-400 [facility] Comment on above: Order Comment: Speci men Type: BLOOD SPECIMEN Ordering Facility: [facility] Address: [address] [place] [address] Performed By: #### 5 8410-2 #### [facility] CLIA [id number] [address] [place] [address] [facility] [place] RBC (Bld) [#/Vol] 4.17 10*6/uL Normal 3.90-5.20 [facility] Comment on above: Order Comment: Speci men Type: BLOOD SPECIMEN Ordering Facility: [facility] Address: [address] [place], [place] [address] Performed By: #### 5 8410-2 #### [facility] CLIA [id number] [address] [place], [place] [address] [facility] [place] WBC (Bld) [#/Vol] 13.20 10*3/uL High 3.70-11.00 [facility] Comment on above: Order Comment: Speci men Type: BLOOD SPECIMEN Ordering Facility: [facility] Address: [address] [place], [place] [address] Performed By: #### 5 8410-2 #### [facility] CLIA [id number] [address] [place], [place] [address] [facility] [place] CONSULTon 04-24-2024 CONSULT HNO ID: [id number] Author: TIRSO RICHEY MD Service: Otolaryngology Author Type: Physician Type: Consults Filed: 04/24/2024 14:50 Note Text: 04/24/2024 This 19-year-old patient was transferred from [facility] for management of a right peritonsillar abscess. She complains of sore throat for the last 3 days following dental extraction procedures on the right side of her mouth. She does have a history of frequent tonsil stones but no frequent strep positive infections. She was evaluated by her local ENT in [place] who told her she was not a candidate for tonsillectomy due to the infrequency of her strep positive infections. She was given some oral antibiotics at [facility] without improvement. Her evaluation here shows that she is afebrile, white blood cell count 13,200. There is a CT scan that was transferred from [place] which shows asymmetric swelling of the right [...] of that extraction site. Tirso Richey MD [facility] CT soft tissue neck wo/w con on 04-24-2024 CT soft tissue neck wo/w con [facility] [address] [place] [address] CT Scan Report Signed Patient: LUIS BARAJAS MR#: [id number] : 2005 Acct:[id number] Age/Sex: 19 / F Admit Date: 04/23/24 Loc: ER Attending Dr: Ordering Physician: Natanael Hyde MD Date of Service: 04/24/24 Procedure(s): CT soft tissue neck wo/w con Accession Number(s): [id number] cc: Natanael Hyde MD INDICATION: Right tonsillar [...] DD/ 8 Signed By: Ara Burton 04/24/24348 Rehab Tech: DELGADO 04/24/24348 Normal [facility] ([place]) Comprehensive metabolic 2000 panelon 04-24-2024 Albumin [Mass/Vol] 4.0 g/dL Normal 3.2-5.0 [facility] Comment on above: Order Comment: Ryan spain Type: BLOOD SPECIMEN Ordering Facility: [facility] Address: [address] [place] [address] Performed By: #### 2 4323-8, 02200-6, 2777-1 #### [facility] CLIA [id number] [address] [place] [address] [place] ALP [Catalytic activity/Vol] 72 U/L Normal 45-117 [facility] Comment on above: Order Comment: Ryan spain Type: BLOOD SPECIMEN Ordering Facility: [facility] Address: [address] [place] [address] Performed By: #### 2 4323-8, 88714-1, 2777 #### [facility] CLIA [id number] [address] [place] [address] [place] ALT [Catalytic activity/Vol] 8 U/L Low 13-61 [facility] Comment on above: Order Comment: Ryan spain Type: BLOOD SPECIMEN Ordering Facility: [facility] Address: [address] [place] [address] Result Comment: Resu lts may be falsely depressed after the administration of Sulfasalazine and/or Sulfapyridine. Performed By: #### 2 4323-8, , 2776-08 #### [facility] CLIA [id number] [address] [place] [address] [place] Anion gap [Moles/Vol] 9 mmol/L Normal 5-16 [facility] Comment on above: Order Comment: Speci men Type: BLOOD SPECIMEN Ordering Facility: [facility] Address: [address] [place] [address] Performed By: #### 2 4323-8, , 2776-08 #### [facility] CLIA [id number] [address] [place], [place] [address] [place] AST [Catalytic activity/Vol] 19 U/L Normal 8-34 [facility] Comment on above: Order Comment: Speci men Type: BLOOD SPECIMEN Ordering Facility: [facility] Address: [address] [place] [address] Result Comment: Resu lts may be falsely depressed after the administration of Sulfasalazine and/or Sulfapyridine. Performed By: #### 2 4323-8, , 2776-08 #### [facility] CLIA [id number] [address] [place], [place] [address] [place] Bilirubin [Mass/Vol] 0.5 mg/dL Normal 0.2-1.0 [facility] Comment on above: Order Comment: Speci men Type: BLOOD SPECIMEN Ordering Facility: [facility] Address: [address] [place] [address] Performed By: #### 2 4323-8, , 2776-08 #### [facility] CLIA [id number] [address] [place] [address] [place] Calcium [Mass/Vol] 10.3 mg/dL Normal 8.5-10.5 [facility] Comment on above: Order Comment: Speci men Type: BLOOD SPECIMEN Ordering Facility: [facility] Address: [address] [place] [address] Performed By: #### 2 4323-8, , 2776-08 #### [facility] CLIA [id number] [address] [place] [address] [place] Chloride [Moles/Vol] 108 mmol/L High 98-107 [facility] Comment on above: Order Comment: Speci men Type: BLOOD SPECIMEN Ordering Facility: [facility] Address: [address] [place] [address] Performed By: #### 2 4323-8, 26684-1, 277- #### [facility] CLIA [id number] [address] [place] [address] [place] CO2 [Moles/Vol] 23 mmol/L Normal 21-32 [facility] Comment on above: Order Comment: Speci men Type: BLOOD SPECIMEN Ordering Facility: [facility] Address: [address] [place] [address] Performed By: #### 2 4323-8, 78384-0, 2776- #### [facility] CLIA [id number] [address] [place] [address] [place] Creatinine [Mass/Vol] 0.61 mg/dL Normal 0.51-0.95 [facility] Comment on above: Order Comment: Speci men Type: BLOOD SPECIMEN Ordering Facility: [facility] Address: [address] [place] [address] Result Comment: Ernestine ents receiving either N-Acetylcysteine (NAC) or Metamizole prior to venipuncture, may have falsely depressed results. Performed By: #### 2 4323-8, 98850-2, 2776-08 #### [facility] CLIA [id number] [address] [place] [address] [place] Creatinine and Glomerular filtration rate.predicted panel (S/P/Bld) 132 mL/min/1.73m??? Normal >=60 [facility] Comment on above: Order Comment: Speci men Type: BLOOD SPECIMEN Ordering Facility: [facility] Address: [address] [place] [address] Result Comment: Meeta mated Glomerular Filtration Rate [...] By: #### 2 4323-8, , 2776-08 #### [facility] CLIA [id number] [address] [place], [place] [address] [place] Glucose [Mass/Vol] 120 mg/dL High 70-100 [facility] Comment on above: Order Comment: Ryan spain Type: BLOOD SPECIMEN Ordering Facility: [facility] Address: [address] [place], [place] [address] Result Comment: The [place] [employer] (ADA) provides guidance for cutoff [...] Standards of Medical Care in Diabetes 2016, [place] [employer]. Diabetes Care. 2016.39(Suppl 1). Results may be falsely elevated after the administration of Sulfapyridine. Results may be falsely depressed after the administration of Sulfasalazine. Performed By: #### 2 4323-8, , 2776-08 #### [facility] CLIA [id number] [address] [place], [place] [address] [place] Potassium [Moles/Vol] 4.1 mmol/L Normal 3.5-5.1 [facility] Comment on above: Order Comment: Ryan spain Type: BLOOD SPECIMEN Ordering Facility: [facility] Address: [address] [place] [address] Performed By: #### 2 4323-8, , 2776-08 #### [facility] CLIA [id number] [address] [place], [place] [address] [place] Protein [Mass/Vol] 8.1 g/dL Normal 6.0-8.5 [facility] Comment on above: Order Comment: Speci men Type: BLOOD SPECIMEN Ordering Facility: [facility] Address: [address] [place] [address] Performed By: #### 2 4323-8, 31818-3, 2777-1 #### [facility] CLIA [id number] [address] [place], [place] [address] [place] Sodium [Moles/Vol] 140 mmol/L Normal 136-145 [facility] Comment on above: Order Comment: Speci men Type: BLOOD SPECIMEN Ordering Facility: [facility] Address: [address] [place] [address] Performed By: #### 2 4323-8, 58134-0, 27702-21 #### [facility] CLIA [id number] [address] [place] [address] [place] Urea nitrogen [Mass/Vol] 15 mg/dL Normal 7-26 [facility] Comment on above: Order Comment: Speci men Type: BLOOD SPECIMEN Ordering Facility: [facility] Address: [address] [place] [address] Performed By: #### 2 4323-8, , 2776-08 #### [facility] CLIA [id number] [address] [place], [place] [address] [place] HISTORY PHYSICALon HISTORY PHYSICAL HNO ID: [id number] Author: GUSTAVO CHAN MD Service: Hospital Medicine Author Type: Physician Type: H&P Filed: 04/24/2024 10:36 Note Text: HISTORY AND PHYSICAL EXAMINATION SERVICE DATE: 04/24/2024 SERVICE TIME: 9:46 PM PRIMARY CARE PHYSICIAN: Mitzy Fung MD, MD CHIEF COMPLAINT: Sore throat/dysphagia HPI: This is a 19 year old female with a past medical history of ADHD, PCOS, asthma, URIEL. Patient was transferred from [facility] today for concerns of 2 cm right peritonsillar abscess. Of note patient recently had a dental extraction at [facility] approximately 1 week ago due to concerns for infection was given p.o. cefdinir and Keflex however patient started having dysphagia associated with sore throat and went to [place] ED. At [place] ED patient was given IV clindamycin and IV Decadron in the ED. Due to [place] not having ENT onsite patient was transferred here at [facility] for further ENT management as well as [...] Routine labs (more content not included)... Normal [facility] Magnesium [facility]-ncon 04-24 Magnesium [Mass/Vol] 2.2 mg/dL Normal 1.6-2.6 [facility] Comment on above: Order Comment: Ryan spain Type: BLOOD SPECIMEN Ordering Facility: [facility] Address: [address] [place] [address] Performed By: #### 2 4323-8, 19896-0, 2777-1 #### [facility] CLIA [id number] [address] [place] [address] [place] [facility] Phosphate SerPl-mCncon 04-24 Phosphate [Mass/Vol] 3.8 mg/dL Normal 2.5-4.9 [facility] Comment on above: Order Comment: Ryan spain Type: BLOOD SPECIMEN Ordering Facility: [facility] Address: [address] [place] [address] Result Comment: Elev ated m-protein (paraprotein) levels in the serum may be exhibited in patients with monoclonal gammopathies, causing falsely elevated inorganic phosphorus results. Performed By: #### 2 4323-8, 77577-9, 2777-1 #### [facility] CLIA [id number] [address] [place], [place] [address] [place] Progress Noteon 04-20-2024 [employer] Authentication Interface Message Text Patient ID: Luis [...] cm, weight 57.6 kg, SpO2 100%. Normal [facility] 12 Lead EKGon 2024 12 Lead EKG [facility] [address] [place] [address] 12 Lead EKG 04/17/24 0305 MR#: [id number] Acct: [id number] Name: LUIS BARAJAS Rep #: [id number] : 2005 19 From: Andrés Faith MD Attending Dr: Status: DEP ER Ordering Dr: Tedooro Garcia DO Date: 04/17/24 Location: ED Sex: [...] tracing Baseline artifact Confirmed by Andrés Faith ([id number]), editorial assistant IVONNE MAHAJAN ([id number]) on 04/18/2024 10:56:34 AM Referred By: LINNAE Confirmed By:Andrés Faith 04/18/24 1056 Date Andrés Faith MD CC: Dr. Mitzy Fung MD; Teodoro Garcia DO Signed Normal [facility] Basic Metabolic Profile (BMP )on 2024 BUN/CRE 12.7 RATIO Normal 10-20 [facility] Comment on above: Order Comment: 'TROP ' Serial specimen #1, #2 or #3: 1 Performed By: #### L 300.8000, L100.0100, L500.2500, L501.5200, L501.4020 #### [facility] [address] [place], [address] CA,Total 9.4 mg/dL Normal 8.5-10.1 [facility] Comment on above: Order Comment: 'TROP ' Serial specimen #1, #2 or #3: 1 Performed By: #### L 300.8000, L100.0100, L500.2500, L501.5200, L501.4020 #### [facility] [address] [place], [address] Chloride [Moles/Vol] 106 mmol/L Normal 98-107 [facility] Comment on above: Order Comment: 'TROP ' Serial specimen #1, #2 or #3: 1 Performed By: #### L 300.8000, L100.0100, L500.2500, L501.5200, L501.4020 #### [facility] [address] [place], [address] CO2 [Moles/Vol] 25.0 mmol/L Normal 21.0-32.0 [facility] Comment on above: Order Comment: 'TROP ' Serial specimen #1, #2 or #3: 1 Performed By: #### L 300.8000, L100.0100, L500.2500, L501.5200, L501.4020 #### [facility] [address] [place], [address] Creatinine [Mass/Vol] 0.87 mg/dL Normal 0.55-1.02 [facility] Comment on above: Order Comment: 'TROP ' Serial specimen #1, #2 or #3: 1 Result Comment: The validity of the calculated GFR GFRAA in patients over 70 years has not been determined. Clinical correlation is essential. Performed By: #### L 300.8000, L100.0100, L500.2500, L501.5200, L501.4020 #### [facility] [address] [place], [address] ECRCL 93.59 ml/min Normal [facility] Comment on above: Order Comment: 'TROP ' Serial specimen #1, #2 or #3: 1 Performed By: #### L 300.8000, L100.0100, L500.2500, L501.5200, L501.4020 #### [facility] [address] [place], [address] EST GFR - AA 108 mL/min Normal >60 [facility] Comment on above: Order Comment: 'TROP ' Serial specimen #1, #2 or #3: 1 Result Comment: Afri can Dominican GFR Calc Performed By: #### L 300.8000, L100.0100, L500.2500, L501.5200, L501.4020 #### [facility] [address] [place], [address] GAP 8 Normal 5-15 [facility] Comment on above: Order Comment: 'TROP ' Serial specimen #1, #2 or #3: 1 Performed By: #### L 300.8000, L100.0100, L500.2500, L501.5200, L501.4020 #### [facility] [address] [place], [address] GFR/1.73 sq M.predicted among non-blacks MDRD (S/P/Bld) [Vol rate/Area] 90 mL/min/{1.73_m2} Normal >60 [facility] Comment on above: Order Comment: 'TROP ' Serial specimen #1, #2 or #3: 1 Result Comment: Non- GFR Calc Performed By: #### L 300.8000, L100.0100, L500.2500, L501.5200, L501.4020 #### [facility] [address] [place], [address] Glucose [Mass/Vol] 73 mg/dL Low 74-106 [place] Comment on above: Order Comment: 'TROP ' Serial specimen #1, #2 or #3: 1 Performed By: #### L 300.8000, L100.0100, L500.2500, L501.5200, L501.4020 #### [facility] [address] [place], [address] Potassium [Moles/Vol] 3.2 mmol/L Low 3.5-5.1 [facility] Comment on above: Order Comment: 'TROP ' Serial specimen #1, #2 or #3: 1 Performed By: #### L 300.8000, L100.0100, L500.2500, L501.5200, L501.4020 #### [facility] [address] [place], [address] Sodium [Moles/Vol] 139 mmol/L Normal 136-145 [place] Comment on above: Order Comment: 'TROP ' Serial specimen #1, #2 or #3: 1 Performed By: #### L 300.8000, L100.0100, L500.2500, L501.5200, L501.4020 #### [facility] [address] [place], [address] Urea nitrogen [Mass/Vol] 11 mg/dL Normal 7-18 [facility] Comment on above: Order Comment: 'TROP ' Serial specimen #1, #2 or #3: 1 Performed By: #### L 300.8000, L100.0100, L500.2500, L501.5200, L501.4020 #### [facility] [address] [place], [address] CBC W/Diff, Automatedon 03-25-2023 Absolute Lymph 3.76 X10 3/uL Normal 0.83-4.51 [facility] Comment on above: Performed By: #### L 300.8000, L100.0100, L500.2500, L501.5200, L501.4020 #### [facility] [address] [place], [address] Absolute Neut 4.9 X10 3/uL Normal 2.0-7.7 [facility] Comment on above: Performed By: #### L 300.8000, L100.0100, L500.2500, L501.5200, L501.4020 #### [facility] [address] [place], [address] Basophils/100 WBC (Bld) 0.5 % Normal 0-1 [facility] Comment on above: Performed By: #### L 300.8000, L100.0100, L500.2500, L501.5200, L501.4020 #### [facility] [address] [place], [address] Eosinophils/100 WBC (Bld) 1.4 % Normal 0-5 [facility] Comment on above: Performed By: #### L 300.8000, L100.0100, L500.2500, L501.5200, L501.4020 #### [facility] [address] [place], [address] Erythrocyte distribution width (RBC) [Ratio] 11.9 % Normal 11.6-14.6 [facility] Comment on above: Performed By: #### L 300.8000, L100.0100, L500.2500, L501.5200, L501.4020 #### [facility] [address] [place], [address] Hematocrit (Bld) [Volume fraction] 36.0 % Low 37-47 [facility] Comment on above: Performed By: #### L 300.8000, L100.0100, L500.2500, L501.5200, L501.4020 #### [facility] [address] [place], [address] Hemoglobin (Bld) [Mass/Vol] 11.6 g/dL Low 12.0-15.0 [facility] Comment on above: Performed By: #### L 300.8000, L100.0100, L500.2500, L501.5200, L501.4020 #### [facility] [address] [place], [address] IG% 0.300 Normal 0.0-0.9 [facility] Comment on above: Result Comment: IG% - Immature Granulocytes (promyelocytes, myelocytes and metamyelocytes) > 1% indicates that a LEFT SHIFT is Present. Performed By: #### L 300.8000, L100.0100, L500.2500, L501.5200, L501.4020 #### [facility] [address] [place], [address] Lymphocytes/100 WBC (Bld) 38.3 % Normal 19-41 [facility] Comment on above: Performed By: #### L 300.8000, L100.0100, L500.2500, L501.5200, L501.4020 #### [facility] [address] [place], [address] MCH (RBC) [Entitic mass] 28.3 pg Normal 27.0-32.0 [facility] Comment on above: Performed By: #### L 300.8000, L100.0100, L500.2500, L501.5200, L501.4020 #### [facility] [address] [place], [address] MCHC (RBC) [Mass/Vol] 32.2 g/dL Normal 32-36 [facility] Comment on above: Performed By: #### L 300.8000, L100.0100, L500.2500, L501.5200, L501.4020 #### [facility] [address] [place], [address] MCV (RBC) [Entitic vol] 87.8 fL Normal 81-99 [facility] Comment on above: Performed By: #### L 300.8000, L100.0100, L500.2500, L501.5200, L501.4020 #### [facility] [address] [place], [address] Monocytes/100 WBC (Bld) 9.3 % Normal 0-10 [facility] Comment on above: Performed By: #### L 300.8000, L100.0100, L500.2500, L501.5200, L501.4020 #### [facility] [address] [place], [address] Neutrophils/100 WBC (Bld) 50.2 % Normal 47-70 [facility] Comment on above: Performed By: #### L 300.8000, L100.0100, L500.2500, L501.5200, L501.4020 #### [facility] [address] [place], [address] Nucleated RBC (Bld) [#/Vol] 0 10*3/uL Normal 0-5 [facility] Comment on above: Performed By: #### L 300.8000, L100.0100, L500.2500, L501.5200, L501.4020 #### [facility] [address] [place], [address] Platelet mean volume (Bld) [Entitic vol] 10.3 fL Normal 6.2-12.0 [facility] Comment on above: Performed By: #### L 300.8000, L100.0100, L500.2500, L501.5200, L501.4020 #### [facility] [address] [place], [address] Platelets (Bld) [#/Vol] 305 10*3/uL Normal 150-450 [facility] Comment on above: Performed By: #### L 300.8000, L100.0100, L500.2500, L501.5200, L501.4020 #### [facility] [address] [place], [address] RBC (Bld) [#/Vol] 4.10 10*6/uL Low 4.2-5.4 [facility] Comment on above: Performed By: #### L 300.8000, L100.0100, L500.2500, L501.5200, L501.4020 #### [facility] [address] [place], [address] RDW SD 38.3 fl Normal 35.1-43.9 [facility] Comment on above: Performed By: #### L 300.8000, L100.0100, L500.2500, L501.5200, L501.4020 #### [facility] [address] [place], [address] WBC (Bld) [#/Vol] 9.8 10*3/uL Normal 4.4-11.0 [place] Comment on above: Performed By: #### L 300.8000, L100.0100, L500.2500, L501.5200, L501.4020 #### [facility] [address] [place], [address] CTA Chest W/WO Contraston CTA Chest W/WO Contrast [facility] [address] [place] [address] CTA Chest W/WO Contrast MR#: [id number] Acct: [id number] Name: LUIS BARAJAS Rep #: [id number] : 2005 F 19 From: Sal Nobles MD PCP: Dr. Mitzy Fung MD Status: REG ER Study: CTA Chest W/WO Contrast Date of Exam: 04/17/24 Exam# [id number] Ordering Dr: Teodoro Garcia DO -[id number] STUDY: CTA CHEST REASON FOR EXAM: [...] seen with bronchitis/bronchio litis. Electronically Signed: Sal Nboles MD at 5:21 EDT , CC: Dr. Mitzy Fung MD; Teodoro Garcia DO Rehab Tech: Signed Normal [facility] Chest PA and Lateralon 04-17 Chest PA and Lateral [facility] Services [address] [place] [address] Chest PA and Lateral MR#: [id number] Acct: [id number] Name: LUIS BARAJAS Rep #: [id number] : 2005 F 19 From: Sal Nobles MD PCP: Dr. Mitzy Fung MD Status: REG ER Study: Chest PA and Lateral Date of Exam: 04/17/24 Exam# [id number] Ordering Dr: Teodoro Garcia DO -[id number] INDICATION: chest pain EXAMINATION/TECHNIQ UE: X-RAY [...] Dr. Mitzy Fung MD; Teodoro Garcia DO Rehab Tech: Signed Normal [facility] D-Dimer Quantitative (DVT/PE )on 2024 D-DIMER QUANT 0.55 FEU/ug/m Invalid Interpretation Code 0.27-0.49 [facility] Comment on above: Result Comment: D-Di vicente ELEVATED (>0.49): Additional studies and clinical assessments are indicated to conclude diagnosis of: Deep Vein Thrombosis (DVT) or Pulmonary Embolism (PE) CRITICAL VALUE VERIFIED. CALLED TO LSPARR 04/17/24 0350 Ivonne Artis. RESULTS READ BACK BY SAME. Performed By: #### L 300.8000, L100.0100, L500.2500, L501.5200, L501.4020 #### [facility] [address] [place] [place], [address] Emergency Department Summary on 2024 Emergency Department Summary [facility] Medical Records Department [address] [place] [address] Emergency Department Summary 04/17/24 MR#: [id number] Acct: [id number] Name: LUIS BARAJAS Rep #: [id number] : 2005 19 From: Teodoro Garcia DO [...] persistent pain she comes in for evaluation [facility] Medical History Wears glasses Bipolar disorder [...] to auscul (more content not included)... Normal [facility] L501.4020on 2024 TROPONIN-I HS < 3 Low 3.0-54.0 [facility] Comment on above: Order Comment: 'TROP ' Serial specimen #1, #2 or #3: 1 Result Comment: Plea se Note: New Test Units and Gender Specific Reference Ranges. For more information see Policy Stat Procedure [place] High Sensitivity Troponin (TNIH) and attachments. Performed By: #### L 300.8000, L100.0100, L500.2500, L501.5200, L501.4020 #### [facility] [address] [place], [place], [address] Magnesiumon 2024 Magnesium [Mass/Vol] 2.1 mg/dL Normal 1.6-2.6 [facility] Comment on above: Order Comment: 'TROP ' Serial specimen #1, #2 or #3: 1 Performed By: #### L 300.8000, L100.0100, L500.2500, L501.5200, L501.4020 #### [facility] [address] [place], [place], [address] Urinalysis, Completeon 04-17 EPI,SQUAMOUS 0-5 SEEN Normal 5-10 [facility] Comment on above: Order Comment: CLEAN CATCH Performed By: #### L 400.0001 ####[facility] [id number] [place], [address] WBC 0-5 SEEN Normal 0-5 [facility] Comment on above: Order Comment: CLEAN CATCH Performed By: #### L 400.0001 ####[facility] [address] [place], [address] BACTERIA 0 SEEN Normal None Seen [facility] Comment on above: Order Comment: CLEAN CATCH Performed By: #### L 400.0001 ####[facility] [id number] [place], [address] Mucus Ql (Urine sed) 0 SEEN Normal [facility] Comment on above: Order Comment: CLEAN CATCH Performed By: #### L 400.0001 ####[facility] [address] [place], [address] RBC 0 SEEN Normal 0-5 [facility] Comment on above: Order Comment: CLEAN CATCH Performed By: #### L 400.0001 ####[facility] [address] [place], [address] Emergency Department Summary on 04-12-2024 Emergency Department Summary [facility] Medical Records Department [address] [place] [address] Emergency Department Summary 04/12/24 MR#: [id number] Acct: [id number] Name: LUIS BARJAAS Rep #: [id number] : 2005 18 From: Javier Isabel DO [...] denies any difficulty breathing or difficulty swallowing. [facility] Medical History Wears glasses Bipolar disorder [...] infected d (more content not included)... Normal [facility] CNOVon 01-26-2024 CNOV Office Visit ([facility]) ---- LUIS BARAJAS ([id number]) 5 F Date Time Provider Department 01/26/24 4:30 PM TRUPTI MARTÍNEZ [facility] During your visit today, we recorded the following information about you: Temperature Pulse Respiration Blood pressure 97.9 degrees 80/minute 16/minute 102/60 Weight 60 kg Martínez Lyles APRN.MEDICAL STAFF PHYSICIAN 01/26/2024 4:37 PM Signed This note was created using [employer]. Subjective Luis Barajas is a 18 year [...] Tylenol as needed for pain. Martínez Lyles APRN.MEDICAL STAFF PHYSICIAN Allergies As of Date: 01/26/2024 (No Known Allergies) Date Reviewed: 01/26/2024 Reviewed by: Martínez Lyles APRN.MEDICAL STAFF PHYSICIAN - Fully Assessed Reason for Visit: Ear [...] Status:Closed by MARTÍNEZ LYLES on 01/26/24 Normal [facility] Bacteria Ur Culton 4 Bacteria identified Cx [...] , Intermediate >32 , Resistant >64 Abnormal [facility] Comment on above: Performed By: #### 6 30-4 ####[facility] LABCLIA [id number] T[facility]IN[facility]icki [facility] [id number] [id number] [facility] CNOVon 12-29-2023 CNOV Office Visit ([facility]) ---- LUIS BARAJAS ([id number]) 5 F Date Time Provider Department 12/29/23 4:45 PM JASMIN ENRIQUEZ [facility] During your visit today, we recorded the following information about you: Temperature Pulse Respiration Blood pressure 97.3 degrees 94/minute 18/minute 129/79 Weight Last Period 58.6 kg 12/24/23 Jasmin Enriquez APRN.MEDICAL STAFF PHYSICIAN 12/29/2023 5:06 PM Signed ASSESSMENT/PLAN: 1. Burning [...] Discussed expected course of illness Jasmin Enriquez APRN.[facility] PATIENT INFO BLADDER INFECTION OVERVIEW Bladder infections [...] prescription medicatio (more content not included)... Normal [facility] UA DIP, URINE (POC)on 2023 BILIRUBIN UA (POCT) Negative Negative [facility] CLARITY UA (POCT) Slightly Cloudy [facility] COLOR UA (POCT) Yellow [facility] GLUCOSE UA (POCT) Negative Negative mg/dL [facility] Hemoglobin Ql (U) Large Abnormal Negative [facility] Interpretation and review of laboratory results Abnormal [facility] KETONE UA (POCT) Negative Negative mg/dL [facility] LEUKOCYTES UA (POCT) Moderate Abnormal Negative [facility] NITRITE UA (POCT) Negative Negative [facility] PH UA (POCT) 7.0 4.5 - 8.0 [facility] Protein Ql (U) 30 mg/dL Abnormal Negative [facility] SPECIFIC GRAVITY UA (POCT) 1.020 1.005 - 1.030 [facility] UROBILINOGEN UA (POCT) 0.2 Normal E.U./d L [facility] Location:[facility], [address] [place] [address], [place], [place], [address] [place] [address] POINT OF CARE [facility] - Chemistry and C hemistry - challengeOrdered By: Leny Ruano on 12-24-2023 HCG ( test) Ql (U) Negative [facility] Comment on above: Very dilute urine sp ecimens, as indicated by a low specificgravity, may not contain medical customer service representative levels of hCG. If is still suspected, a first morning urinespecimen should be collected 48 hours later and tested. Absolute lymphocyte countOrd ered By: Alexissultana Farfan on 11-14-2023 Lymphocytes Auto (Unsp spec) [#/Vol] 2.23 10*3/uL 0.83-4.51 [facility] Automated lymphocyte count a s percentage of total leukocytesOrdered By: [facility] on 11-14-2023 Lymphocytes/100 WBC Auto (Unsp spec) 27.1 % 25-45 [facility] Basophil percentageOrdered B y: Alexis Farfan on 11-14-2023 Basophils/100 WBC (Bld) 0.7 % 0-1 [facility] Chloride [Moles/Vol] 110 mmol/L 98-107 [facility] Eosinophils/100 WBC (Bld) 1.7 % 0-3 [facility] Glucose [Mass/Vol] 82 mg/dL 74-106 [place] Hemoglobin (Bld) [Mass/Vol] 12.3 g/dL 12.0-15.0 [facility] Monocytes/100 WBC (Bld) 5.1 % 3-6 [facility] Neutrophils (Bld) [#/Vol] 5.4 10*3/uL 2.0-7.7 [facility] Neutrophils/100 WBC (Bld) 65.2 % 34-64 [facility] Potassium [Moles/Vol] 3.9 mmol/L 3.5-5.1 [facility] Sodium [Moles/Vol] 140 mmol/L 136-145 [place] WBC (Bld) [#/Vol] 8.2 10*3/uL 4.5-13.0 [place] Basophil percentageOrdered B y: Lexie Heredia on 11-14-2023 Basophil percentage 25-50 SEEN /hpf 0-5 [facility] Bilirubin Test strip Ql (U)O rdered By: Lexie Heredia on 11-14-2023 Bilirubin Ql (U) Negative Negative [facility] CNOVon 11-14-2023 CNOV Office Visit ([facility]) ---- LUIS BARAJAS ([id number]) 5 F Date Time Provider Department 11/14/23 12:15 PM [facility] During your visit today, we recorded the following information about you: Temperature Pulse Respiration Blood pressure 97.5 degrees 74/minute 21/minute 120/62 Weight 60.9 kg Loni Escobar APRN.MEDICAL STAFF PHYSICIAN 11/14/2023 12:51 PM Signed Complaints of severe right flank pain. Patient says she has passed 2 hard [place] objects through her urethra. Patient says she [...] Diagnosis:Flank pain [R10.9] Order(s):UA DIP, URINE (POC) [4865730] Order #: [id number]. #:[id number] Prescriptions as of 11/14/2023 - cabergoline (DOSTINEX) [...] Status:Closed by LONI ESCOBAR on 11/14/23 Normal [facility] Culture, urineOrdered By: Daryl Farfan on 11-14-2023 Bacteria identified Cx Nom (U) Presumptive E. coli [facility] Determination of erythrocyte mean corpuscular volume (MCV)Ordered By: Alexis Farfan on 11-14-2023 MCV (RBC) [Entitic vol] 87.9 fL 78-96 [facility] Erythrocyte distribution wid th ratioOrdered By: Alexis Farfan on 11-14-2023 Erythrocyte distribution width (RBC) [Ratio] 12.0 % 11.6-14.6 [facility] Erythrocyte distribution wid th standard deviationOrdered By: Alexissultana Farfan on 11-14-2023 Erythrocyte distribution width (RBC) [Entitic vol] 39.1 fL 35.1-43.9 [facility] Hematocrit Auto (Bld) [Volum e fraction]Ordered By: Alexis Farfan on 11-14-2023 Hematocrit (Bld) [Volume fraction] 38.6 % 37-46 [facility] Immature granulocytes/100 WB C Auto (Bld)Ordered By: Alexis Farfan on 11-14-2023 Immature granulocytes/100 WBC (Bld) 0.200 % 0.0-0.9 [facility] Comment on above: IG% - Immature Granu locytes (promyelocytes, myelocytes and metamyelocytes) > 1% indicates that a LEFT SHIFT is Present. Ketones Test strip Ql (U)Ord ered By: Lexie Heredia on 11-14-2023 Ketones Ql (U) 5 mg/dl Negative [facility] - Chemistry and C hemistry - challengeOrdered By: Aleixs Farfan on 11-14-2023 CO2 [Moles/Vol] 26.0 mmol/L 21.0-32.0 [facility] Urea nitrogen/Creatinine [Mass ratio] 15.0 mg/mg 10-20 [facility] - Hematology and Cell countsOrdered By: Alexis Farfan on 11-14-2023 MCH (RBC) [Entitic mass] 28.0 pg 25.0-35.0 [facility] MCHC (RBC) [Mass/Vol] 31.9 g/dL 32-36 [facility] Nucleated RBC/100 WBC (Bld) [Ratio] 0 % 0-5 [facility] Platelet mean volume (Bld) [Entitic vol] 9.8 fL 6.2-12.0 [facility] Platelets (Bld) [#/Vol] 298 10*3/uL 150-450 [facility] Mucus LM Ql (Urine sed)Order ed By: Lexie Heredia on 11-14-2023 Mucus Ql (Urine sed) 0 SEEN /hpf [facility] Nitrite Test strip Ql (U)Ord ered By: Lexie Heredia on 11-14-2023 Nitrite Ql (U) Positive Negative [facility] No Panel InformationOrdered By: Alexis Farfan on 11-14-2023 Estimated Creatinine Clearance Calc 102.62 ml/min [facility] Estimated GFR (MDRD) Amer 120 mL/min >60 [facility] Comment on above: GFR Calc Estimated GFR (MDRD) Non-Af Amer 99 mL/min >60 [facility] Comment on above: Non- GFR Calc No Panel InformationOrdered By: Lexie Heredia on 11-14-2023 Urine RBC 0-5 SEEN /hpf 0-5 [facility] Protein Test strip Ql (U)Ord ered By: Lexie Heredia on 11-14-2023 Protein Ql (U) 30 mg/dl Negative [facility] RBC Auto (Bld) [#/Vol]Ordere d By: Alexis Farfan on 11-14-2023 RBC (Bld) [#/Vol] 4.39 10*6/uL 4.1-4.8 [facility] Serum or plasma calcium vel urement (mass/volume)Ordered By: Alexis Farfan on 11-14-2023 Calcium [Mass/Vol] 8.8 mg/dL 8.5-10.1 [place] Serum or plasma choriogonado tropin detectionOrdered By: Alexis Farfan on 11-14-2023 HCG ( test) Ql Negative [facility] Serum or plasma creatinine m easurement (mass/volume)Ordered By: Alexis Farfan on 11-14-2023 Creatinine [Mass/Vol] 0.80 mg/dL 0.55-1.02 [facility] Comment on above: The validity of the calculated GFR & GFRAA in patients over 70 years has not been determined. Clinical correlation is essential. Serum or plasma urea nitroge n measurement (mass/volume)Ordered By: Alexis Farfan on 11-14-2023 Urea nitrogen [Mass/Vol] 12 mg/dL 7-18 [facility] Squamous epithelial cells de tection in urine sediment by light microscopyOrdered By: Lexie Heredia on 11-14-2023 Epithelial cells.squamous LM Ql (Urine sed) 0-5 SEEN /hpf 5-10 [facility] Thin prep Papanicolaou smear with manual screeningOrdered By: Alexis Farfan on 11-14-2023 Thin prep Papanicolaou smear with manual screening 4 5-15 [facility] UA DIP, URINE (POC)on 2023 BILIRUBIN UA (POCT) Negative Negative [facility] CLARITY UA (POCT) Slightly Cloudy [facility] COLOR UA (POCT) Yellow [facility] GLUCOSE UA (POCT) Negative Negative mg/dL [facility] Hemoglobin Ql (U) Trace-intact Abnormal Negative [facility] KETONE UA (POCT) Trace Negative mg/dL [facility] LEUKOCYTES UA (POCT) Small Abnormal Negative [facility] NITRITE UA (POCT) Positive Abnormal Negative [facility] PH UA (POCT) 6.0 4.5 - 8.0 [facility] Protein Ql (U) 30 mg/dL Abnormal Negative mg/dL [facility] SPECIFIC GRAVITY UA (POCT) 1.025 1.005 - 1.030 [facility] UROBILINOGEN UA (POCT) 1.0 E.U./dL Normal E.U./ dL [facility] Urine blood detectionOrdered By: Lexie Heredia on 11-14-2023 RBC Ql (U) 25 /ul Negative [facility] Urine clarityOrdered By: Alexa Heredia on 11-14-2023 Clarity (U) Sl. Cloudy Clear [facility] Urine color determinationOrd ered By: Lexie Heredia on 11-14-2023 Color (U) Yellow Yellow [facility] Urine glucose detectionOrder ed By: Lexie Heredia on 11-14-2023 Glucose Ql (U) Normal mg/dl Normal [facility] Urine leukocyte esterase det ection by dipstickOrdered By: Lexie Heredia on 11-14-2023 Leukocyte esterase Test strip Ql (U) 500 /ul Negative [facility] Urine pHOrdered By: Lexie watts on 11-14-2023 pH (U) 6.5 [pH] 5.0 - 8.0 [facility] Urine sediment bacteria coun t by microscopy (number/high power field)Ordered By: Lexie Heredia on 11-14-2023 Bacteria LM.HPF (Urine sed) [#/Area] 2 /[HPF] None Seen [facility] Urine specific gravity measu rementOrdered By: Lexie Heredia on 11-14-2023 Specific gravity (U) [Rel density] 1.015 1.002-1.030 [facility] Urine urobilinogen measureme ntOrdered By: Lexie Heredia on 11-14-2023 Urobilinogen Ql (U) 1 mg/dl Normal [facility] ---- LUIS BARAJAS ([id number]) 5 F Date Time Provider Department 10/31/23 MOE SIMONS [facility] During your visit today, we recorded the [...] Status:Closed by Ariane DAVIS on 11/02/23 Normal [facility] BACTERIAL VAGINOSIS NAATon 0 10-30-2023 Lactobacillus crispatus+gasseri+jense javier + Gardnerella vaginalis + Atopobium vaginae rRNA JAIRON+probe Ql (Vag fld) Negative Normal Negative for bacterial vaginosis [facility] Comment on above: Order Comment: Speci men Type: SWABOrdering Facility: [facility] Address: [address] [place] [id number] Performed By: #### B CHAR CABRERATMarcella ####[facility] LABCLIA [id number] [facility] CLINICRicki AVENUEDESK [id number] [place] [id number] [place] Bacteria Ur Culton [...] , Intermediate >32 , Resistant >64 Abnormal [facility] Comment on above: Performed By: #### 6 30-4 ####[facility] LABCLIA [id number] [place] [address] [place] PRINCE/TRICHOMONAS NAATon 0 10-30-2023 C. glabrata RNA JAIRON+probe Ql (Vag fld) Negative Normal Negative for Prince glabrata [facility] Comment on above: Order Comment: Speci men Type: SWABOrdering Facility: [facility] Address: [address] [place] [address] Performed By: #### B VAMP, CVTV ####[facility] LABCLIA [id number] [place] [address] [place] Prince sp DNA JAIRON+probe Ql (Vag fld) Positive Abnormal Negative for Prince species [facility] Comment on above: Order Comment: Speci men Type: SWABOrdering Facility: [facility] Address: [address] [place] [address] Performed By: #### B VAMP, CVTV ####[facility] LABCLIA [id number] [place] [address] [place] T. vaginalis DNA JAIRON+probe Ql (Unsp spec) Negative Normal Negative for Trichomonas vaginalis by amplification [facility] Comment on above: Order Comment: Speci men Type: SWABOrdering Facility: [facility] Address: [address] [place] [address] Performed By: #### B VAMP, CVTV ####[facility] RAYRAY [id number] [place] [id number] [place] CNOVon 10-30-2023 CNOV Office Visit ([facility]) ---- LUIS BARAJAS ([id number]) 5 F Date Time Provider Department 10/30/23 4:15 PM LILLIAN SANCHEZ [facility] During your visit today, we recorded the following information about you: Temperature Pulse Respiration Blood pressure 97.8 degrees 102/minute 18/minute 114/74 Weight Last Period 58.8 kg 10/19/23 Lillian Sanchez APRN.MEDICAL STAFF PHYSICIAN 10/30/2023 4:18 PM Signed This note was [...] history is provided by the patient. No threading machine operator was used. UTI This is a new [...] No friction (more content not included)... Normal [facility] UA DIP, URINE (POC)on 2023 BILIRUBIN UA (POCT) Negative Negative [facility] CLARITY UA (POCT) Clear [facility] COLOR UA (POCT) Dark yellow [facility] GLUCOSE UA (POCT) Negative Negative mg/dL [facility] Hemoglobin Ql (U) Moderate Abnormal Negative [facility] KETONE UA (POCT) Negative Negative mg/dL [facility] LEUKOCYTES UA (POCT) Trace Abnormal Negative [facility] NITRITE UA (POCT) Negative Negative [facility] PH UA (POCT) 5.5 4.5 - 8.0 [facility] Protein Ql (U) 100 mg/dL Abnormal Negative mg/dL [facility] SPECIFIC GRAVITY UA (POCT) >=1.030 1.005 - 1.030 [facility] UROBILINOGEN UA (POCT) 0.2 E.U./dL Normal E.U./ dL [facility] UA DIP, URINE (POC)on 2022 BILIRUBIN UA (POCT) Negative Negative [facility] CLARITY UA (POCT) Clear [facility] COLOR UA (POCT) Yellow [facility] GLUCOSE UA (POCT) Negative Negative mg/dL [facility] Hemoglobin Ql (U) Negative Negative [facility] KETONE UA (POCT) Negative Negative mg/dL [facility] LEUKOCYTES UA (POCT) Trace Abnormal Negative [facility] NITRITE UA (POCT) Negative Negative [facility] PH UA (POCT) 6.5 4.5 - 8.0 [facility] Protein Ql (U) Negative Negative mg/dL [facility] SPECIFIC GRAVITY UA (POCT) 1.010 1.005 - 1.030 [facility] UROBILINOGEN UA (POCT) 1.0 E.U./dL Normal E.U./ dL [facility] Absolute lymphocyte countOrd ered By: ED PROVIDER on 07-04-2023 Lymphocytes Auto (Unsp spec) [#/Vol] 2.21 10*3/uL 0.83-4.51 [facility] Basophil percentageOrdered B y: ED PROVIDER on 07-04-2023 Basophils/100 WBC (Bld) 0.7 % 0-1 [facility] Eosinophils/100 WBC (Bld) 2.6 % 0-3 [facility] Neutrophils (Bld) [#/Vol] 4.0 10*3/uL 2.0-7.7 [facility] Neutrophils/100 WBC (Bld) 57.1 % 34-64 [facility] WBC (Bld) [#/Vol] 7.0 10*3/uL 4.5-13.0 [place] Basophil percentageOrdered B y: Flor Seymour on 07-04-2023 Chloride [Moles/Vol] 108 mmol/L 98-107 [facility] Glucose [Mass/Vol] 79 mg/dL 74-106 [place] Potassium [Moles/Vol] 4.3 mmol/L 3.5-5.1 [facility] Sodium [Moles/Vol] 139 mmol/L 136-145 [place] Basophil percentage 0-5 SEEN /hpf 0-5 [facility] Beta hCG serum qualOrdered B y: Flor Seymour on 07-04-2023 Beta HCG ( test) Ql Negative [facility] Bilirubin Test strip Ql (U)O rdered By: Flor Seymour on 07-04-2023 Bilirubin Ql (U) Negative Negative [facility] Blood erythrocytes count (nu mber/volume)Ordered By: ED PROVIDER on 07-04-2023 RBC (Bld) [#/Vol] 4.54 10*6/uL 4.1-4.8 [facility] Blood hemoglobin measurement (mass/volume)Ordered By: ED PROVIDER on 07-04-2023 Hemoglobin (Bld) [Mass/Vol] 12.9 g/dL 12.0-15.0 [facility] Blood lymphocytes/100 leukoc ytesOrdered By: ED PROVIDER on 07-04-2023 Lymphocytes/100 WBC (Bld) 31.8 % 25-45 [facility] Blood monocytes/100 leukocyt esOrdered By: ED PROVIDER on 07-04-2023 Monocytes/100 WBC (Bld) 7.5 % 3-6 [facility] Blood platelet mean volumeOr dered By: ED PROVIDER on 07-04-2023 Platelet mean volume (Bld) [Entitic vol] 9.8 fL 6.2-12.0 [facility] Determination of erythrocyte mean corpuscular volume (MCV)Ordered By: ED PROVIDER on 07-04-2023 MCV (RBC) [Entitic vol] 89.0 fL 78-96 [facility] Hematocrit Auto (Bld) [Volum e fraction]Ordered By: ED PROVIDER on 07-04-2023 Hematocrit (Bld) [Volume fraction] 40.4 % 37-46 [facility] Ketones Test strip Ql (U)Ord ered By: Flor Seymour on 07-04-2023 Ketones Ql (U) 5 mg/dl Negative [facility] Laboratory - Chemistry and C hemistry - challengeOrdered By: Flor Seymour on 07-04-2023 CO2 [Moles/Vol] 29.0 mmol/L 21.0-32.0 [facility] Urea nitrogen/Creatinine [Mass ratio] 13.9 mg/mg 10-20 [facility] Laboratory - Hematology and Cell countsOrdered By: ED PROVIDER on 07-04-2023 Erythrocyte distribution width (RBC) [Entitic vol] 39.5 fL 35.1-43.9 [facility] Erythrocyte distribution width (RBC) [Ratio] 12.0 % 11.6-14.6 [facility] Immature granulocytes/100 WBC (Bld) 0.300 % 0.0-0.9 [facility] Comment on above: IG% - Immature Granu locytes (promyelocytes, myelocytes and metamyelocytes) > 1% indicates that a LEFT SHIFT is Present. MCH (RBC) [Entitic mass] 28.4 pg 25.0-35.0 [facility] Nucleated RBC/100 WBC (Bld) [Ratio] 0 % 0-5 [facility] MCHC Auto (RBC) [Mass/Vol]Or dered By: ED PROVIDER on 07-04-2023 MCHC (RBC) [Mass/Vol] 31.9 g/dL 32-36 [facility] Mucus LM Ql (Urine sed)Order ed By: Flor Seymour on 07-04-2023 Mucus Ql (Urine sed) 0 SEEN /hpf [facility] Nitrite Test strip Ql (U)Ord ered By: Flor Seymour on 07-04-2023 Nitrite Ql (U) Negative Negative [facility] No Panel InformationOrdered By: Flor Seymour on 07-04-2023 Estimated Creatinine Clearance Calc 83.81 ml/min [facility] Estimated GFR (MDRD) Amer 100 mL/min >60 [facility] Comment on above: GFR Calc Estimated GFR (MDRD) Non-Af Amer 83 mL/min >60 [facility] Comment on above: Non- GFR Calc Platelets bldOrdered By: ED PROVIDER on 07-04-2023 Platelets (Bld) [#/Vol] 315 10*3/uL 150-450 [facility] Protein Test strip Ql (U)Ord ered By: Flor Seymour on 07-04-2023 Protein Ql (U) 30 mg/dl Negative [facility] Serum or plasma calcium vel urement (mass/volume)Ordered By: Flor Seymour on 07-04-2023 Calcium [Mass/Vol] 9.2 mg/dL 8.5-10.1 [place] Serum or plasma creatinine m easurement (mass/volume)Ordered By: Flor Seymour on 07-04-2023 Creatinine [Mass/Vol] 0.94 mg/dL 0.55-1.02 [facility] Comment on above: The validity of the calculated GFR & GFRAA in patients over 70 years has not been determined. Clinical correlation is essential. Serum or plasma urea nitroge n measurement (mass/volume)Ordered By: Flor Seymour on 07-04-2023 Urea nitrogen [Mass/Vol] 13 mg/dL 7-18 [facility] Squamous epithelial cells de tection in urine sediment by light microscopyOrdered By: Flor Seymour on 07-04-2023 Epithelial cells.squamous LM Ql (Urine sed) 0-5 SEEN /hpf 5-10 [facility] Thin prep Papanicolaou smear with manual screeningOrdered By: Flor Seymour on 07-04-2023 Thin prep Papanicolaou smear with manual screening 2 5-15 [facility] Urine blood detectionOrdered By: Flor Seymour on 07-04-2023 RBC Ql (U) 250 /ul Negative [facility] RBC Ql (U) 10-25 SEEN /hpf 0-5 [facility] Urine clarityOrdered By: Nataliia Seymour on 07-04-2023 Clarity (U) Clear Clear [facility] Urine color determinationOrd ered By: Flor Seymour on 07-04-2023 Color (U) Yellow Yellow [facility] Urine glucose detectionOrder ed By: Flor Seymour on 07-04-2023 Glucose Ql (U) Normal mg/dl Normal [facility] Urine leukocyte esterase det ection by dipstickOrdered By: Flor Seymour on 07-04-2023 Leukocyte esterase Test strip Ql (U) 100 /ul Negative [facility] Urine pHOrdered By: Flor Seymour on 07-04-2023 pH (U) 6.0 [pH] 5.0 - 8.0 [facility] Urine sediment bacteria coun t by microscopy (number/high power field)Ordered By: Flor Seymour on 07-04-2023 Bacteria LM.HPF (Urine sed) [#/Area] 0 /[HPF] None Seen [facility] Urine specific gravity measu rementOrdered By: Flor Seymour on 07-04-2023 Specific gravity (U) [Rel density] 1.015 1.002-1.030 [facility] Urobilinogen Auto test strip Ql (U)Ordered By: Flor Seymour on 07-04-2023 Urobilinogen Ql (U) 1 mg/dl Normal [facility] Culture, urineOrdered By: Payal Clements on 03-27-2023 Bacteria identified Cx Nom (U) Presumptive E. coli [facility] Basophil percentageOrdered B y: Mara Clements on 03-19-2023 Bilirubin [Mass/Vol] 0.60 mg/dL 0.20-1.00 [facility] Comment on above: For patients on eltr ombopag therapy, use of Dimension [place] TBIL is not recommended. Chloride [Moles/Vol] 106 mmol/L 98-107 [facility] Glucose [Mass/Vol] 88 mg/dL 74-106 [place] Potassium [Moles/Vol] 3.7 mmol/L 3.5-5.1 [facility] Protein [Mass/Vol] 8.4 g/dL 6.4-8.2 [place] Sodium [Moles/Vol] 139 mmol/L 136-145 [place] WBC (Bld) [#/Vol] 7.3 10*3/uL 4.5-13.0 [place] Blood erythrocytes count (nu mber/volume)Ordered By: Mara Clements on 03-19-2023 RBC (Bld) [#/Vol] 5.02 10*6/uL 4.1-4.8 [facility] Blood hemoglobin measurement (mass/volume)Ordered By: Mara Clements on 03-19-2023 Hemoglobin (Bld) [Mass/Vol] 14.5 g/dL 12.0-15.0 [facility] Blood platelet mean volumeOr dered By: Mara Clements on 03-19-2023 Platelet mean volume (Bld) [Entitic vol] 9.9 fL 6.2-12.0 [facility] Determination of erythrocyte mean corpuscular volume (MCV)Ordered By: Mara Clements on 03-19-2023 MCV (RBC) [Entitic vol] 85.5 fL 78-96 [facility] Hematocrit Auto (Bld) [Volum e fraction]Ordered By: Mara Clements on 03-19-2023 Hematocrit (Bld) [Volume fraction] 42.9 % 37-46 [facility] Laboratory - Chemistry and C hemistry - challengeOrdered By: Mara Clements on 03-19-2023 ALP [Catalytic activity/Vol] 61 U/L 47-119 [facility] ALT [Catalytic activity/Vol] 13 U/L 13-56 [facility] CO2 [Moles/Vol] 22.0 mmol/L 21.0-32.0 [facility] Free T4 [Mass/Vol] 1.47 ng/dL 0.76-1.46 [place] Globulin (S) [Mass/Vol] 4.4 g/dL 2.2-4.2 [facility] Urea nitrogen/Creatinine [Mass ratio] 14.2 mg/mg 10-20 [facility] Laboratory - Hematology and Cell countsOrdered By: Mara Clements on 03-19-2023 Erythrocyte distribution width (RBC) [Entitic vol] 37.2 fL 35.1-43.9 [facility] Erythrocyte distribution width (RBC) [Ratio] 12.0 % 11.6-14.6 [facility] MCH (RBC) [Entitic mass] 28.9 pg 25.0-35.0 [facility] MCHC Auto (RBC) [Mass/Vol]Or dered By: Mara Clements on 03-19-2023 MCHC (RBC) [Mass/Vol] 33.8 g/dL 32-36 [facility] No Panel InformationOrdered By: Mara Clements on 03-19-2023 Thyroid Stimulating Hormone (TSH) 0.45 uIU/mL 0.358-3.74 [facility] Glucose 2 Hour See comment [facility] Comment on above: FASTING 90 Col: 02/22 03/15 0701 30 min GLU 190 H Col: 03/19/23 0740 60 min GLU 137 Col: 03/19/23 0810 120min GLU 72 Col: 03/19/23 0909 Androstenedione 197 ng/dL 41-262 [facility] Comment on above: Performed at: - [address] [id number] Director: Ritesh Ly MD, Phone: [phone] Estimated GFR (MDRD) Amer [facility] Comment on above: Test not performedAf rican Dominican GFR Calc Estimated GFR (MDRD) Non-Af Amer TNP [facility] Comment on above: Test not performedNo n- GFR Calc Follicle Stimulating Hormone 5.4 mIU/mL [facility] Comment on above: NORMAL REFERENCE RAN [facility] FEMALE FOLLICULAR 2.3 - 12.6 mIU/mL MID-CYCLE PEAK 5.2 - 17.5 mIU/mL LUTEAL 1.7 - 12.9 mIU/mL POST-MENOPAUSAL ON MHT 5.9 - 72.8 mIU/mL NOT ON MHT 12.7 - 132.2 mlU/mL MALE 0.7 - 10.8 mIU/mL Free Triiodothyronine (T3) pg/dL 2.9 pg/mL 2.18-3.98 [facility] Luteinizing Hormone 9.2 mIU/mL [facility] Comment on above: NORMAL REFERENCE RAN [facility] FEMALE FOLLICULAR 1.9 - 26.2 mIU/mL MID-CYCLE PEAK 22.8 - 76.1 mIU/mL LUTEAL 0.6 - 16.6 mIU/mL POST-MENOPAUSAL ON MHT 1.1 - 52.4 mIU/mL NOT ON MHT 8.6 - 61.8 mIU/mL MALE 1.2 - 10.6 mIU/mL Total Triiodothyronine 1.48 ng/mL 0.6-1.81 [facility] Vitamin D 25-Hydroxy 15.6 ng/mL [facility] Comment on above: Vitamin D 25(OH) Sta tus Range Deficiency <20 ng/mL (50nmol/L) Insufficiency 20 - 30 ng/mL (50 - 75 nmol/L) Sufficiency 30 - 100 ng/mL (75 - 250 nmol/L) Toxicity >100 ng/mL (>250 nmol/L) Platelets bldOrdered By: Jono Clements on 03-19-2023 Platelets (Bld) [#/Vol] 384 10*3/uL 150-450 [facility] Serum or plasma 17-hydroxypr ogesterone measurement (mass/volume)Ordered By: Mara Clements on 03-19-2023 17-Hydroxyprogesterone [Mass/Vol] 71 ng/dL . [facility] Comment on above: Arnaud Stage Female 1 0 - 82 2 11 - 98 3 11 - 155 4 18 - 230 5 20 - 265Performed at: - [facility] [id number] [place], [place] [id number] Director: Ritesh Ly MD, Phone: [phone] Serum or plasma albumin vel urement (mass/volume)Ordered By: Mara Clements on 03-19-2023 Albumin [Mass/Vol] 4.0 g/dL 3.2-5.0 [place] Serum or plasma albumin/glob ulin mass ratioOrdered By: Summer Tyree on 03-19-2023 Albumin/Globulin [Mass ratio] 0.9 {ratio} 0.9-2.4 [facility] Serum or plasma calcium vel urement (mass/volume)Ordered By: Mara Clements on 03-19-2023 Calcium [Mass/Vol] 9.5 mg/dL 8.5-10.1 [place] Serum or plasma cortisol castro surement (mass/volume)Ordered By: Mara Clements on 03-19-2023 Cortisol [Mass/Vol] 27.10 ug/dL 3.44-22.45 [facility] Comment on above: Adult (AM) 5.27 - 22 .45 ug/dL Adult (PM) 3.44 - 16.76 ug/dLPlease note revised CORTISOL reference range effective 2019. Serum or plasma creatinine m easurement (mass/volume)Ordered By: Mara Tyree on 03-19-2023 Creatinine [Mass/Vol] 0.98 mg/dL 0.55-1.02 [facility] Comment on above: The validity of the calculated GFR & GFRAA in patients over 70 years has not been determined. Clinical correlation is essential. Serum or plasma estradiol (E 2) measurement (mass/volume)Ordered By: Mara Tyree on 03-19-2023 E2 [Mass/Vol] 78.0 pg/mL [facility] Comment on above: NORMAL REFERENCE RAN [...] 75 g glucose PO Qn See comment [facility] Comment on above: FASTING 7.3 Col: 0701 30 min INS 96.4 Col: 03/19/23 0740 60 min INS 111.7 Col: 03/19/23 0810 120min INS 19.3 Col: 03/19/23 0909 Serum or plasma prolactin me asurement (mass/volume)Ordered By: Mara Clements on 03-19-2023 Prolactin [Mass/Vol] 15.6 ng/mL [facility] Comment on above: NORMAL REFERENCE RAN GES FEMALE NON- 2.2 - 30.3 ng/mL 8.1 - 347.6 ng/mL POST-MENOPAUSAL 0.7 - 31.5 ng/mL MALE 2.5 - 17.4 ng/mL Serum or plasma urea nitroge n measurement (mass/volume)Ordered By: Mara Clements on 03-19-2023 Urea nitrogen [Mass/Vol] 14 mg/dL 7-18 [facility] Thin prep Papanicolaou smear with manual screeningOrdered By: Mara Clements on 03-19-2023 Thin prep Papanicolaou smear with manual screening 17 U/L 15-37 [facility] Thin prep Papanicolaou smear with manual screening 11 5-15 [facility] Absolute lymphocyte countOrd ered By: Dr. Seymour on 02-04-2023 Lymphocytes Auto (Unsp spec) [#/Vol] 0.69 10*3/uL 0.83-4.51 [facility] Basophil percentageOrdered B y: Dr. Seymour on 02-04-2023 Basophil percentage 5-10 SEEN /hpf 0-5 [facility] Basophils/100 WBC (Bld) 0.3 % 0-1 [facility] Chloride [Moles/Vol] 104 mmol/L 98-107 [facility] Eosinophils/100 WBC (Bld) 0.2 % 0-3 [facility] Glucose [Mass/Vol] 103 mg/dL 74-106 [place] Comment on above: Fasting Glucose resu lt from 100 to 125 mg/dL suggests IMPAIRED HOMEOSTASIS per A.D.A. criteria. Neutrophils (Bld) [#/Vol] 16.4 10*3/uL 2.0-7.7 [facility] Neutrophils/100 WBC (Bld) 91.2 % 34-64 [facility] Potassium [Moles/Vol] 3.1 mmol/L 3.5-5.1 [facility] Sodium [Moles/Vol] 134 mmol/L 136-145 [place] WBC (Bld) [#/Vol] 17.9 10*3/uL 4.5-13.0 [facility] Bilirubin Test strip Ql (U)O rdered By: Dr. Seymour on 02-04-2023 Bilirubin Ql (U) 1 mg/dL Negative [facility] Comment on above: COLOR OF URINE MAY A FFECT DIPSTICK RESULTS. Blood erythrocytes count (nu mber/volume)Ordered By: Dr. Seymour on 02-04-2023 RBC (Bld) [#/Vol] 4.59 10*6/uL 4.1-4.8 [facility] Blood hemoglobin measurement (mass/volume)Ordered By: Dr. Seymour on 02-04-2023 Hemoglobin (Bld) [Mass/Vol] 13.4 g/dL 12.0-15.0 [facility] Blood lymphocytes/100 leukoc ytesOrdered By: Dr. Seymour on 02-04-2023 Lymphocytes/100 WBC (Bld) 3.8 % 25-45 [facility] Blood monocytes/100 leukocyt esOrdered By: Dr. Seymour on 02-04-2023 Monocytes/100 WBC (Bld) 3.7 % 3-6 [facility] Blood platelet mean volumeOr dered By: Dr. Seymour on 02-04-2023 Platelet mean volume (Bld) [Entitic vol] 10.5 fL 6.2-12.0 [facility] Determination of erythrocyte mean corpuscular volume (MCV)Ordered By: Dr. Seymour on 02-04-2023 MCV (RBC) [Entitic vol] 84.1 fL 78-96 [facility] Hematocrit Auto (Bld) [Volum e fraction]Ordered By: Dr. Seymour on 02-04-2023 Hematocrit (Bld) [Volume fraction] 38.6 % 37-46 [facility] Influenza virus A and B and SARS-CoV-2 (COVID-19) Ag panel - Upper respiratory specimOrdered By: Flor Seymour on 02-04-2023 SARS-CoV-2 (COVID-19) RNA JAIRON+probe Ql (Resp) [facility] Influenza virus A and B and SARS-CoV-2 (COVID-19) Ag panel - Upper respiratory specimOrdered By: Dr. Seymour on 02-04-2023 SARS-CoV-2 (COVID-19) RNA JAIRON+probe Ql (Resp) [facility] Ketones Test strip Ql (U)Ord ered By: Dr. Seymour on 02-04-2023 Ketones Ql (U) 150 mg/dl Negative [facility] Comment on above: CRITICAL VALUE *HCRI TICAL VALUE VERIFIED. CALLED TO SHIVAM [id number]/04/[id number] Khalif Lemus.RESULTS READ BACK BY SAME . Laboratory - Chemistry and C hemistry - challengeOrdered By: Dr. Seymour on 02-04-2023 CO2 [Moles/Vol] 21.0 mmol/L 21.0-32.0 [facility] Urea nitrogen/Creatinine [Mass ratio] 8.7 mg/mg 10-20 [facility] Laboratory - Hematology and Cell countsOrdered By: Dr. Seymour on 02-04-2023 Erythrocyte distribution width (RBC) [Entitic vol] 35.8 fL 35.1-43.9 [facility] Erythrocyte distribution width (RBC) [Ratio] 11.8 % 11.6-14.6 [facility] Immature granulocytes/100 WBC (Bld) 0.800 % 0.0-0.9 [facility] Comment on above: IG% - Immature Granu locytes (promyelocytes, myelocytes and metamyelocytes) > 1% indicates that a LEFT SHIFT is Present. MCH (RBC) [Entitic mass] 29.2 pg 25.0-35.0 [facility] Nucleated RBC/100 WBC (Bld) [Ratio] 0 % 0-5 [facility] MCHC Auto (RBC) [Mass/Vol]Or dered By: Dr. Seymour on 02-04-2023 MCHC (RBC) [Mass/Vol] 34.7 g/dL 32-36 [facility] Mucus LM Ql (Urine sed)Order ed By: Dr. Seymour on 02-04-2023 Mucus Ql (Urine sed) 0 SEEN /hpf [facility] Nitrite Test strip Ql (U)Ord ered By: Dr. Seymour on 02-04-2023 Nitrite Ql (U) Negative Negative [facility] No Panel InformationOrdered By: Dr. Seymour on 02-04-2023 Estimated Creatinine Clearance Calc 82.80 ml/min [facility] Estimated GFR (MDRD) [facility] Comment on above: Test not performedAf rican Dominican GFR Calc Estimated GFR (MDRD) [facility] Comment on above: Test not performedNo n- GFR Calc Platelets bldOrdered By: Dr. Seymour on 02-04-2023 Platelets (Bld) [#/Vol] 258 10*3/uL 150-450 [facility] Protein Test strip Ql (U)Ord ered By: Dr. Seymour on 02-04-2023 Protein Ql (U) 100 mg/dl Negative [facility] S. pyogenes Ag IF Ql (Throat )Ordered By: Flor Seymour on 02-04-2023 S. pyogenes Ag IA Ql (Unsp spec) Streptococcus Group A [facility] S. pyogenes Ag IF Ql (Throat )Ordered By: Dr. Seymour on 02-04-2023 S. pyogenes Ag IA Ql (Unsp spec) Streptococcus Group A [facility] Serum or plasma calcium vel urement (mass/volume)Ordered By: Dr. Seymour on 02-04-2023 Calcium [Mass/Vol] 9.2 mg/dL 8.5-10.1 [place] Serum or plasma creatinine m easurement (mass/volume)Ordered By: Dr. Seymour on 02-04-2023 Creatinine [Mass/Vol] 1.04 mg/dL 0.55-1.02 [facility] Comment on above: The validity of the calculated GFR & GFRAA in patients over 70 years has not been determined. Clinical correlation is essential. Serum or plasma urea nitroge n measurement (mass/volume)Ordered By: Dr. Seymour on 02-04-2023 Urea nitrogen [Mass/Vol] 9 mg/dL 7-18 [facility] Squamous epithelial cells de tection in urine sediment by light microscopyOrdered By: Dr. Seymour on 02-04-2023 Epithelial cells.squamous LM Ql (Urine sed) 0-5 SEEN /hpf 5-10 [facility] Thin prep Papanicolaou smear with manual screeningOrdered By: Dr. Seymour on 02-04-2023 Thin prep Papanicolaou smear with manual screening 9 5-15 [facility] Urine blood detectionOrdered By: Dr. Seymour on 02-04-2023 RBC Ql (U) Negative Negative [facility] RBC Ql (U) 0 SEEN /hpf 0-5 [facility] Urine clarityOrdered By: Dr. Seymour on 02-04-2023 Clarity (U) Clear Clear [facility] Urine color determinationOrd ered By: Dr. Seymour on 02-04-2023 Color (U) Yellow Yellow [facility] Urine glucose detectionOrder ed By: Dr. Seymour on 02-04-2023 Glucose Ql (U) Normal mg/dl Normal [facility] Urine leukocyte esterase det ection by dipstickOrdered By: Dr. Seymour on 02-04-2023 Leukocyte esterase Test strip Ql (U) 25 /ul Negative [facility] Urine pHOrdered By: Dr. Lesli khanna on 02-04-2023 pH (U) 6.5 [pH] 5.0 - 8.0 [facility] Urine sediment bacteria coun t by microscopy (number/high power field)Ordered By: Dr. Seymoru on 02-04-2023 Bacteria LM.HPF (Urine sed) [#/Area] 1 /[HPF] None Seen [facility] Urine specific gravity measu rementOrdered By: Dr. Seymour on 02-04-2023 Specific gravity (U) [Rel density] 1.015 1.002-1.030 [facility] Urobilinogen Auto test strip Ql (U)Ordered By: Dr. Seymour on 02-04-2023 Urobilinogen Ql (U) 12 mg/dl Normal [facility] Throat specimen bacteria radha ntification by cultureOrdered By: Dr. Wolfe on 12-03-2022 Bacteria identified Cx Nom (Throat) streptococcus isolated. [facility] Culture, urineOrdered By: Dr Praveena De La Torre on 12-01-2022 Bacteria identified Cx Nom (U) Presumptive E. coli [facility] Throat specimen bacteria radha ntification by cultureOrdered By: J Luis Wolfe on 12-01-2022 Bacteria identified Cx Nom (Throat) streptococcus isolated. [facility] Absolute lymphocyte countOrd ered By: Dr. De La Torre on 11-28-2022 Lymphocytes Auto (Unsp spec) [#/Vol] 2.71 10*3/uL 0.83-4.51 [facility] Basophil percentageOrdered B y: Dr. De La Torre on 11-28-2022 Basophil percentage 25-50 SEEN /hpf 0-5 [facility] Basophils/100 WBC (Bld) 0.5 % 0-1 [facility] Chloride [Moles/Vol] 108 mmol/L 98-107 [facility] Eosinophils/100 WBC (Bld) 1.5 % 0-3 [facility] Glucose [Mass/Vol] 75 mg/dL 74-106 [place] Neutrophils (Bld) [#/Vol] 5.8 10*3/uL 2.0-7.7 [facility] Neutrophils/100 WBC (Bld) 62.9 % 34-64 [facility] Potassium [Moles/Vol] 3.5 mmol/L 3.5-5.1 [facility] Sodium [Moles/Vol] 141 mmol/L 136-145 [place] WBC (Bld) [#/Vol] 9.3 10*3/uL 4.5-13.0 [place] Bilirubin Test strip Ql (U)O rdered By: Dr. De La Torre on 11-28-2022 Bilirubin Ql (U) Negative Negative [facility] Blood erythrocytes count (nu mber/volume)Ordered By: Dr. De La Torre on 11-28-2022 RBC (Bld) [#/Vol] 4.53 10*6/uL 4.1-4.8 [facility] Blood hemoglobin measurement (mass/volume)Ordered By: Dr. De La Torre on 11-28-2022 Hemoglobin (Bld) [Mass/Vol] 12.8 g/dL 12.0-15.0 [facility] Blood lymphocytes/100 leukoc ytesOrdered By: Dr. De La Torre on 11-28-2022 Lymphocytes/100 WBC (Bld) 29.3 % 25-45 [facility] Blood monocytes/100 leukocyt esOrdered By: Dr. De La Torre on 11-28-2022 Monocytes/100 WBC (Bld) 5.6 % 3-6 [facility] Blood platelet mean volumeOr dered By: Dr. De La Torre on 11-28-2022 Platelet mean volume (Bld) [Entitic vol] 9.8 fL 6.2-12.0 [facility] Culture, urineOrdered By: John De La Torre on 11-28-2022 Bacteria identified Cx Nom (U) Presumptive E. coli [facility] Determination of erythrocyte mean corpuscular volume (MCV)Ordered By: Dr. De La Torre on 11-28-2022 MCV (RBC) [Entitic vol] 86.1 fL 78-96 [facility] Hematocrit Auto (Bld) [Volum e fraction]Ordered By: Dr. De La Torre on 11-28-2022 Hematocrit (Bld) [Volume fraction] 39.0 % 37-46 [facility] Ketones Test strip Ql (U)Ord ered By: Dr. De La Torre on 11-28-2022 Ketones Ql (U) 5 mg/dl Negative [facility] Laboratory - Chemistry and C hemistry - challengeOrdered By: Dr. De La Torre on 11-28-2022 CO2 [Moles/Vol] 26.0 mmol/L 21.0-32.0 [facility] Urea nitrogen/Creatinine [Mass ratio] 12.1 mg/mg 10-20 [facility] Laboratory - Hematology and Cell countsOrdered By: Dr. De La Torre on 11-28-2022 Erythrocyte distribution width (RBC) [Entitic vol] 36.8 fL 35.1-43.9 [facility] Erythrocyte distribution width (RBC) [Ratio] 11.7 % 11.6-14.6 [facility] Immature granulocytes/100 WBC (Bld) 0.200 % 0.0-0.9 [facility] Comment on above: IG% - Immature Granu locytes (promyelocytes, myelocytes and metamyelocytes) > 1% indicates that a LEFT SHIFT is Present. MCH (RBC) [Entitic mass] 28.3 pg 25.0-35.0 [facility] Nucleated RBC/100 WBC (Bld) [Ratio] 0 % 0-5 [facility] MCHC Auto (RBC) [Mass/Vol]Or dered By: Dr. De La Torre on 11-28-2022 MCHC (RBC) [Mass/Vol] 32.8 g/dL 32-36 [facility] Mucus LM Ql (Urine sed)Order ed By: Dr. De La Torre on 11-28-2022 Mucus Ql (Urine sed) RARE /hpf [facility] Nitrite Test strip Ql (U)Ord ered By: Dr. De La Torre on 11-28-2022 Nitrite Ql (U) Negative Negative [facility] No Panel InformationOrdered By: Dr. De La Torre on 11-28-2022 Estimated Creatinine Clearance Calc 96.86 ml/min [facility] Estimated GFR (MDRD) [facility] Comment on above: Test not performedAf rican Dominican GFR Calc Estimated GFR (MDRD) Non-Af [facility] Comment on above: Test not performedNo n- GFR Calc Platelets bldOrdered By: Dr. De La Torre on 11-28-2022 Platelets (Bld) [#/Vol] 347 10*3/uL 150-450 [facility] Protein Test strip Ql (U)Ord ered By: Dr. De La Torre on 11-28-2022 Protein Ql (U) Negative Negative [facility] Serum or plasma calcium vel urement (mass/volume)Ordered By: Dr. De La Torre on 11-28-2022 Calcium [Mass/Vol] 9.3 mg/dL 8.5-10.1 [place] Serum or plasma creatinine m easurement (mass/volume)Ordered By: Dr. De La Torre on 11-28-2022 Creatinine [Mass/Vol] 0.82 mg/dL 0.55-1.02 [facility] Comment on above: The validity of the calculated GFR & GFRAA in patients over 70 years has not been determined. Clinical correlation is essential. Serum or plasma urea nitroge n measurement (mass/volume)Ordered By: Dr. De La Torre on 11-28-2022 Urea nitrogen [Mass/Vol] 10 mg/dL 7-18 [facility] Squamous epithelial cells de tection in urine sediment by light microscopyOrdered By: Dr. De La Torre on 11-28-2022 Epithelial cells.squamous LM Ql (Urine sed) 0-5 SEEN /hpf 5-10 [facility] Thin prep Papanicolaou smear with manual screeningOrdered By: Dr. De La Torre on 11-28-2022 Thin prep Papanicolaou smear with manual screening 7 5-15 [facility] Urine blood detectionOrdered By: Dr. De La Torre on 11-28-2022 RBC Ql (U) 25 /ul Negative [facility] RBC Ql (U) 0-5 SEEN /hpf 0-5 [facility] Urine clarityOrdered By: Dr. De La Torre on 11-28-2022 Clarity (U) Sl. Cloudy Clear [facility] Urine color determinationOrd ered By: Dr. De La Torre on 11-28-2022 Color (U) Yellow Yellow [facility] Urine glucose detectionOrder ed By: Dr. De La Torre on 11-28-2022 Glucose Ql (U) Normal mg/dl Normal [facility] Urine leukocyte esterase det ection by dipstickOrdered By: Dr. De La Torre on 11-28-2022 Leukocyte esterase Test strip Ql (U) 500 /ul Negative [facility] Urine pHOrdered By: Dr. Azeem cristobal on 11-28-2022 pH (U) 8.0 [pH] 5.0 - 8.0 [facility] Urine sediment bacteria coun t by microscopy (number/high power field)Ordered By: Dr. De La Torre on 11-28-2022 Bacteria LM.HPF (Urine sed) [#/Area] RARE /hpf None Seen [facility] Urine specific gravity measu rementOrdered By: Dr. De La Torre on 11-28-2022 Specific gravity (U) [Rel density] 1.015 1.002-1.030 [facility] Urobilinogen Auto test strip Ql (U)Ordered By: Dr. De La Torre on 11-28-2022 Urobilinogen Ql (U) Normal mg/dl Normal [facility] TSH with Reflex to T4, Freeo n 11-24-2022 TSH with reflex to T4, Free 0.823 [facility] Release to patient->Automatic [facility] LAB [facility] Culture, urineOrdered By: Dr Praveena Clements on 11-19-2022 Bacteria identified Cx Nom (U) Mixed Gram Pos & Gram Neg Org [facility] Basophil percentageOrdered B y: Dr. Clements on 11-18-2022 Basophil percentage 5-10 SEEN /hpf 0-5 [facility] Basophil percentageOrdered B y: Teodoro Anthonyvalentin on 11-18-2022 Lactate [Moles/Vol] 0.7 mmol/L 0.4-2.0 [facility] Bilirubin Test strip Ql (U)O rdered By: Dr. Clements on 11-18-2022 Bilirubin Ql (U) Negative Negative [facility] Ketones Test strip Ql (U)Ord ered By: Dr. Clements on 11-18-2022 Ketones Ql (U) Negative Negative [facility] Mucus LM Ql (Urine sed)Order ed By: Dr. Clements on 11-18-2022 Mucus Ql (Urine sed) 2+ /hpf [facility] Nitrite Test strip Ql (U)Ord ered By: Dr. Clements on 11-18-2022 Nitrite Ql (U) Negative Negative [facility] Protein Test strip Ql (U)Ord ered By: Dr. Clements on 11-18-2022 Protein Ql (U) 30 mg/dl Negative [facility] Squamous epithelial cells de tection in urine sediment by light microscopyOrdered By: Dr. Clements on 11-18-2022 Epithelial cells.squamous LM Ql (Urine sed) 0 SEEN /hpf 5-10 [facility] Urine blood detectionOrdered By: Dr. Clements on 11-18-2022 RBC Ql (U) Negative Negative [facility] RBC Ql (U) 0 SEEN /hpf 0-5 [facility] Urine clarityOrdered By: Dr. Clements on 11-18-2022 Clarity (U) Clear Clear [facility] Urine color determinationOrd ered By: Dr. Clements on 11-18-2022 Color (U) Yellow Yellow [facility] Urine glucose detectionOrder ed By: Dr. Clements on 11-18-2022 Glucose Ql (U) Normal mg/dl Normal [facility] Urine leukocyte esterase det ection by dipstickOrdered By: Dr. Clemenst on 11-18-2022 Leukocyte esterase Test strip Ql (U) 25 /ul Negative [facility] Urine pHOrdered By: Dr. Urvashi dutta on 11-18-2022 pH (U) 6.0 [pH] 5.0 - 8.0 [facility] Urine sediment bacteria coun t by microscopy (number/high power field)Ordered By: Dr. Clements on 11-18-2022 Bacteria LM.HPF (Urine sed) [#/Area] 1 /[HPF] None Seen [facility] Urine specific gravity measu rementOrdered By: Dr. Clements on 11-18-2022 Specific gravity (U) [Rel density] 1.020 1.002-1.030 [facility] Urobilinogen Auto test strip Ql (U)Ordered By: Dr. Clements on 11-18-2022 Urobilinogen Ql (U) 1 mg/dl Normal [facility] Absolute lymphocyte countOrd ered By: Teodoro Garcia on 11-17-2022 Lymphocytes Auto (Unsp spec) [#/Vol] 6.68 10*3/uL 0.83-4.51 [facility] Basophil percentageOrdered B y: Teodoro Garcia on 11-17-2022 Basophils/100 WBC (Bld) 0.5 % 0-1 [facility] Chloride [Moles/Vol] 108 mmol/L 98-107 [facility] Eosinophils/100 WBC (Bld) 1.4 % 0-3 [facility] Glucose [Mass/Vol] 60 mg/dL 74-106 [place] Lactate [Moles/Vol] 3.1 mmol/L 0.4-2.0 [facility] Comment on above: Critical Result(s) C alled at: 23:35:04 11/17/2022 by: NANCY MCKAY TO SHIVAM BOWLING. Results read back by same. Neutrophils (Bld) [#/Vol] 5.5 10*3/uL 2.0-7.7 [facility] Neutrophils/100 WBC (Bld) 41.2 % 34-64 [facility] Potassium [Moles/Vol] 3.8 mmol/L 3.5-5.1 [facility] Sodium [Moles/Vol] 140 mmol/L 136-145 [place] WBC (Bld) [#/Vol] 13.3 10*3/uL 4.5-13.0 [facility] Beta hCG serum qualOrdered B y: Dr. Clements on 11-17-2022 Beta HCG ( test) Ql Negative [facility] Blood erythrocytes count (nu mber/volume)Ordered By: Teodoro Garcia on 11-17-2022 RBC (Bld) [#/Vol] 5.17 10*6/uL 4.1-4.8 [facility] Blood hemoglobin measurement (mass/volume)Ordered By: Teodoro Garcia on 11-17-2022 Hemoglobin (Bld) [Mass/Vol] 15.0 g/dL 12.0-15.0 [facility] Blood lymphocytes/100 leukoc ytesOrdered By: Teodoro Garcia on 11-17-2022 Lymphocytes/100 WBC (Bld) 50.2 % 25-45 [facility] Blood manual differential co mment interpretation (narrative result)Ordered By: Teodoro Garcia on 11-17-2022 Manual differential comment James (Bld) [Interp] SCANNED [facility] Blood monocytes/100 leukocyt esOrdered By: Teodoro Garcia on 11-17-2022 Monocytes/100 WBC (Bld) 6.4 % 3-6 [facility] Blood platelet mean volumeOr dered By: Teodoro Garcia on 11-17-2022 Platelet mean volume (Bld) [Entitic vol] 9.6 fL 6.2-12.0 [facility] Determination of erythrocyte mean corpuscular volume (MCV)Ordered By: Teodoro Garcia on 11-17-2022 MCV (RBC) [Entitic vol] 86.3 fL 78-96 [facility] Hematocrit Auto (Bld) [Volum e fraction]Ordered By: Teodoro Garcia on 11-17-2022 Hematocrit (Bld) [Volume fraction] 44.6 % 37-46 [facility] INR in Blood by Coagulation assayOrdered By: Teodoro Garcia on 11-17-2022 INR Coag (Bld) [Relative time] 1.0 {INR} [facility] Laboratory - Chemistry and C hemistry - challengeOrdered By: Teodoro Garcia on 11-17-2022 CO2 [Moles/Vol] 27.0 mmol/L 21.0-32.0 [facility] Urea nitrogen/Creatinine [Mass ratio] 15.1 mg/mg 10-20 [facility] Laboratory - CoagulationOrde red By: Teodoro Garcia on 11-17-2022 aPTT Coag (Bld) [Time] 30.9 s 24.1-36.2 [facility] PT Coag (PPP) [Time] 12.5 s 11.7-14.9 [facility] Laboratory - Hematology and Cell countsOrdered By: Teodoro Garcia on 11-17-2022 Erythrocyte distribution width (RBC) [Entitic vol] 37.1 fL 35.1-43.9 [facility] Erythrocyte distribution width (RBC) [Ratio] 11.8 % 11.6-14.6 [facility] Immature granulocytes/100 WBC (Bld) 0.300 % 0.0-0.9 [facility] Comment on above: IG% - Immature Granu locytes (promyelocytes, myelocytes and metamyelocytes) > 1% indicates that a LEFT SHIFT is Present. MCH (RBC) [Entitic mass] 29.0 pg 25.0-35.0 [facility] Nucleated RBC/100 WBC (Bld) [Ratio] 0 % 0-5 [facility] MCHC Auto (RBC) [Mass/Vol]Or dered By: Teodoro Garcia on 11-17-2022 MCHC (RBC) [Mass/Vol] 33.6 g/dL 32-36 [facility] No Panel InformationOrdered By: Teodoro Garcia on 11-17-2022 Atypical Lymphocytes 1+ % [facility] Estimated GFR (MDRD) [facility] Comment on above: Test not performedAf rican Dominican GFR Calc Estimated GFR (MDRD) Non-Af [facility] Comment on above: Test not performedNo n- GFR Calc Platelets bldOrdered By: Fran Garcia on 11-17-2022 Platelets (Bld) [#/Vol] 471 10*3/uL 150-450 [facility] Serum or plasma calcium vel urement (mass/volume)Ordered By: Teodoro Garcia on 11-17-2022 Calcium [Mass/Vol] 9.2 mg/dL 8.5-10.1 [place] Serum or plasma creatinine m easurement (mass/volume)Ordered By: Teodoro Garcia on 11-17-2022 Creatinine [Mass/Vol] 0.93 mg/dL 0.55-1.02 [facility] Comment on above: The validity of the calculated GFR & GFRAA in patients over 70 years has not been determined. Clinical correlation is essential. Serum or plasma urea nitroge n measurement (mass/volume)Ordered By: Teodoro Garcia on 11-17-2022 Urea nitrogen [Mass/Vol] 14 mg/dL 7-18 [facility] Thin prep Papanicolaou smear with manual screeningOrdered By: Teodoro Garcia on 11-17-2022 Thin prep Papanicolaou smear with manual screening 5 5-15 [facility] Absolute lymphocyte countOrd ered By: Dr. Harris on 11-12-2022 Lymphocytes Auto (Unsp spec) [#/Vol] 1.06 10*3/uL 0.83-4.51 [facility] Basophil percentageOrdered B y: Dr. Harris on 11-12-2022 Basophil percentage 0 SEEN /hpf 0-5 [facility] Basophils/100 WBC (Bld) 0.4 % 0-1 [facility] Bilirubin [Mass/Vol] 0.50 mg/dL 0.20-1.00 [facility] Comment on above: For patients on eltr ombopag therapy, use of Dimension [place] TBIL is not recommended. Chloride [Moles/Vol] 110 mmol/L 98-107 [facility] Eosinophils/100 WBC (Bld) 0.2 % 0-3 [facility] Glucose [Mass/Vol] 93 mg/dL 74-106 [place] Neutrophils (Bld) [#/Vol] 10.9 10*3/uL 2.0-7.7 [facility] Neutrophils/100 WBC (Bld) 89.5 % 34-64 [facility] Potassium [Moles/Vol] 3.9 mmol/L 3.5-5.1 [facility] Protein [Mass/Vol] 7.7 g/dL 6.4-8.2 [place] Sodium [Moles/Vol] 141 mmol/L 136-145 [place] WBC (Bld) [#/Vol] 12.2 10*3/uL 4.5-13.0 [facility] Beta hCG serum qualOrdered B y: Dr. Harris on 11-12-2022 Beta HCG ( test) Ql Negative [facility] Bilirubin Test strip Ql (U)O rdered By: Dr. Harris on 11-12-2022 Bilirubin Ql (U) Negative Negative [facility] Blood erythrocytes count (nu mber/volume)Ordered By: Dr. Harris on 11-12-2022 RBC (Bld) [#/Vol] 4.89 10*6/uL 4.1-4.8 [facility] Blood hemoglobin measurement (mass/volume)Ordered By: Dr. Harris on 11-12-2022 Hemoglobin (Bld) [Mass/Vol] 13.9 g/dL 12.0-15.0 [facility] Blood lymphocytes/100 leukoc ytesOrdered By: Dr. Harris on 11-12-2022 Lymphocytes/100 WBC (Bld) 8.7 % 25-45 [facility] Blood monocytes/100 leukocyt esOrdered By: Dr. Harris on 11-12-2022 Monocytes/100 WBC (Bld) 0.9 % 3-6 [facility] Blood platelet mean volumeOr dered By: Dr. Harris on 11-12-2022 Platelet mean volume (Bld) [Entitic vol] 9.9 fL 6.2-12.0 [facility] Determination of erythrocyte mean corpuscular volume (MCV)Ordered By: Dr. Harris on 11-12-2022 MCV (RBC) [Entitic vol] 88.1 fL 78-96 [facility] Direct bilirubinOrdered By: Dr. Harris on 11-12-2022 Bilirubin.direct [Mass/Vol] 0.18 mg/dL 0.00-0.30 [facility] Hematocrit Auto (Bld) [Volum e fraction]Ordered By: Dr. Harris on 11-12-2022 Hematocrit (Bld) [Volume fraction] 43.1 % 37-46 [facility] Ketones Test strip Ql (U)Ord ered By: Dr. Harris on 11-12-2022 Ketones Ql (U) Negative Negative [facility] Laboratory - Chemistry and C hemistry - challengeOrdered By: Dr. Harris on 11-12-2022 ALP [Catalytic activity/Vol] 53 U/L 47-119 [facility] ALT [Catalytic activity/Vol] 16 U/L 13-56 [facility] CO2 [Moles/Vol] 25.0 mmol/L 21.0-32.0 [facility] Globulin (S) [Mass/Vol] 3.7 g/dL 2.2-4.2 [facility] Lipase [Catalytic activity/Vol] 97 U/L 73-393 [facility] Urea nitrogen/Creatinine [Mass ratio] 14.2 mg/mg 10-20 [facility] Laboratory - Hematology and Cell countsOrdered By: Dr. Harris on 11-12-2022 Erythrocyte distribution width (RBC) [Entitic vol] 38.0 fL 35.1-43.9 [facility] Erythrocyte distribution width (RBC) [Ratio] 11.7 % 11.6-14.6 [facility] Immature granulocytes/100 WBC (Bld) 0.300 % 0.0-0.9 [facility] Comment on above: IG% - Immature Granu locytes (promyelocytes, myelocytes and metamyelocytes) > 1% indicates that a LEFT SHIFT is Present. MCH (RBC) [Entitic mass] 28.4 pg 25.0-35.0 [facility] Nucleated RBC/100 WBC (Bld) [Ratio] 0 % 0-5 [facility] MCHC Auto (RBC) [Mass/Vol]Or dered By: Dr. Harris on 11-12-2022 MCHC (RBC) [Mass/Vol] 32.3 g/dL 32-36 [facility] Mucus LM Ql (Urine sed)Order ed By: Dr. Harris on 11-12-2022 Mucus Ql (Urine sed) 0 SEEN /hpf [facility] Nitrite Test strip Ql (U)Ord ered By: Dr. Harris on 11-12-2022 Nitrite Ql (U) Negative Negative [facility] No Panel InformationOrdered By: Dr. Harris on 11-12-2022 Estimated Creatinine Clearance Calc 94.47 ml/min [facility] Estimated GFR (MDRD) Amer TNP [facility] Comment on above: Test not performedAf rican Dominican GFR Calc Estimated GFR (MDRD) Non-Af Amer TNP [facility] Comment on above: Test not performedNo n- GFR Calc Platelets bldOrdered By: Dr. Harris on 11-12-2022 Platelets (Bld) [#/Vol] 353 10*3/uL 150-450 [facility] Protein Test strip Ql (U)Ord ered By: Dr. Harris on 11-12-2022 Protein Ql (U) 15 mg/dl Negative [facility] Serum or plasma albumin vel urement (mass/volume)Ordered By: Dr. Harris on 11-12-2022 Albumin [Mass/Vol] 4.0 g/dL 3.2-5.0 [place] Serum or plasma albumin/glob ulin mass ratioOrdered By: Dr. Harris on 11-12-2022 Albumin/Globulin [Mass ratio] 1.1 {ratio} 0.9-2.4 [facility] Serum or plasma calcium vel urement (mass/volume)Ordered By: Dr. Harris on 11-12-2022 Calcium [Mass/Vol] 9.5 mg/dL 8.5-10.1 [place] Serum or plasma creatinine m easurement (mass/volume)Ordered By: Dr. Harris on 11-12-2022 Creatinine [Mass/Vol] 0.91 mg/dL 0.55-1.02 [facility] Comment on above: The validity of the calculated GFR & GFRAA in patients over 70 years has not been determined. Clinical correlation is essential. Serum or plasma urea nitroge n measurement (mass/volume)Ordered By: Dr. Harris on 11-12-2022 Urea nitrogen [Mass/Vol] 13 mg/dL 7-18 [facility] Squamous epithelial cells de tection in urine sediment by light microscopyOrdered By: Dr. Harris on 11-12-2022 Epithelial cells.squamous LM Ql (Urine sed) 0 SEEN /hpf 5-10 [facility] Thin prep Papanicolaou smear with manual screeningOrdered By: Dr. Harris on 11-12-2022 Thin prep Papanicolaou smear with manual screening 18 U/L 15-37 [facility] Thin prep Papanicolaou smear with manual screening 6 5-15 [facility] Urine blood detectionOrdered By: Dr. Harris on 11-12-2022 RBC Ql (U) 150 /ul Negative [facility] RBC Ql (U) 0 SEEN /hpf 0-5 [facility] Urine clarityOrdered By: Dr. Harris on 11-12-2022 Clarity (U) Clear Clear [facility] Urine color determinationOrd ered By: Dr. Harris on 11-12-2022 Color (U) Yellow Yellow [facility] Urine glucose detectionOrder ed By: Dr. Harris on 11-12-2022 Glucose Ql (U) Normal mg/dl Normal [facility] Urine leukocyte esterase det ection by dipstickOrdered By: Dr. Harris on 11-12-2022 Leukocyte esterase Test strip Ql (U) Negative Negative [facility] Urine pHOrdered By: Dr. Carrington jones on 11-12-2022 pH (U) 7.0 [pH] 5.0 - 8.0 [facility] Urine sediment bacteria coun t by microscopy (number/high power field)Ordered By: Dr. Harris on 11-12-2022 Bacteria LM.HPF (Urine sed) [#/Area] 0 /[HPF] None Seen [facility] Urine specific gravity measu rementOrdered By: Dr. Harris on 11-12-2022 Specific gravity (U) [Rel density] 1.010 1.002-1.030 [facility] Urobilinogen Auto test strip Ql (U)Ordered By: Dr. Harris on 11-12-2022 Urobilinogen Ql (U) Normal mg/dl Normal [facility] 2019 CORONAVIRUSon 3 SARS-CoV-2 (COVID-19) RNA JAIRON+probe Ql (Resp) SARS-CoV-2 (Agent of COVID-19) Not Detected by RT-PCR or equivalent method. Not Detected [facility] Absolute lymphocyte countOrd ered By: Dr. De La Torre on 08-26-2022 Lymphocytes Auto (Unsp spec) [#/Vol] 0.76 10*3/uL 0.83-4.51 [facility] Basophil percentageOrdered B y: Dr. De La Torre on 08-26-2022 Basophils/100 WBC (Bld) 0.2 % 0-1 [facility] Bilirubin [Mass/Vol] 0.70 mg/dL 0.20-1.00 [facility] Comment on above: For patients on eltr ombopag therapy, use of Dimension [place] TBIL is not recommended. Chloride [Moles/Vol] 104 mmol/L 98-107 [facility] Eosinophils/100 WBC (Bld) 0.5 % 0-3 [facility] Glucose [Mass/Vol] 104 mg/dL 74-106 [place] Comment on above: Fasting Glucose resu lt from 100 to 125 mg/dL suggests IMPAIRED HOMEOSTASIS per A.D.A. criteria. Neutrophils (Bld) [#/Vol] 11.0 10*3/uL 2.0-7.7 [facility] Neutrophils/100 WBC (Bld) 86.4 % 34-64 [facility] Potassium [Moles/Vol] 3.2 mmol/L 3.5-5.1 [facility] Protein [Mass/Vol] 8.4 g/dL 6.4-8.2 [place] Sodium [Moles/Vol] 138 mmol/L 136-145 [place] WBC (Bld) [#/Vol] 12.8 10*3/uL 4.5-13.0 [facility] Blood erythrocytes count (nu mber/volume)Ordered By: Dr. De La Torre on 08-26-2022 RBC (Bld) [#/Vol] 5.04 10*6/uL 4.1-4.8 [facility] Blood hemoglobin measurement (mass/volume)Ordered By: Dr. De La Torre on 08-26-2022 Hemoglobin (Bld) [Mass/Vol] 14.6 g/dL 12.0-15.0 [facility] Blood lymphocytes/100 leukoc ytesOrdered By: Dr. De La Torre on 08-26-2022 Lymphocytes/100 WBC (Bld) 5.9 % 25-45 [facility] Blood monocytes/100 leukocyt esOrdered By: Dr. De La Torre on 08-26-2022 Monocytes/100 WBC (Bld) 6.7 % 3-6 [facility] Blood platelet mean volumeOr dered By: Dr. De La Torre on 08-26-2022 Platelet mean volume (Bld) [Entitic vol] 9.8 fL 6.2-12.0 [facility] Determination of erythrocyte mean corpuscular volume (MCV)Ordered By: Dr. De La Torre on 08-26-2022 MCV (RBC) [Entitic vol] 85.9 fL 78-96 [facility] Hematocrit Auto (Bld) [Volum e fraction]Ordered By: Dr. De La Torre on 08-26-2022 Hematocrit (Bld) [Volume fraction] 43.3 % 37-46 [facility] Influenza virus A and B and SARS-CoV-2 (COVID-19) Ag panel - Upper respiratory specimOrdered By: Dr. De La Torre on 08-26-2022 SARS-CoV-2 (COVID-19) RNA JAIRON+probe Ql (Resp) [facility] Laboratory - Chemistry and C hemistry - challengeOrdered By: Dr. De La Torre on 08-26-2022 ALP [Catalytic activity/Vol] 67 U/L 47-119 [facility] ALT [Catalytic activity/Vol] 17 U/L 13-56 [facility] CO2 [Moles/Vol] 27.0 mmol/L 21.0-32.0 [facility] Globulin (S) [Mass/Vol] 4.4 g/dL 2.2-4.2 [facility] Urea nitrogen/Creatinine [Mass ratio] 11.1 mg/mg 10-20 [facility] Laboratory - Hematology and Cell countsOrdered By: Dr. De La Torre on 08-26-2022 Erythrocyte distribution width (RBC) [Entitic vol] 36.5 fL 35.1-43.9 [facility] Erythrocyte distribution width (RBC) [Ratio] 11.7 % 11.6-14.6 [facility] Immature granulocytes/100 WBC (Bld) 0.300 % 0.0-0.9 [facility] Comment on above: IG% - Immature Granu locytes (promyelocytes, myelocytes and metamyelocytes) > 1% indicates that a LEFT SHIFT is Present. MCH (RBC) [Entitic mass] 29.0 pg 25.0-35.0 [facility] Nucleated RBC/100 WBC (Bld) [Ratio] 0 % 0-5 [facility] MCHC Auto (RBC) [Mass/Vol]Or dered By: Dr. De La Torre on 08-26-2022 MCHC (RBC) [Mass/Vol] 33.7 g/dL 32-36 [facility] No Panel InformationOrdered By: Dr. De La Torre on 08-26-2022 Estimated Creatinine Clearance Calc 106.31 ml/min [facility] Estimated GFR (MDRD) [facility] Comment on above: Test not performedAf rican Dominican GFR Calc Estimated GFR (MDRD) Non-Af [facility] Comment on above: Test not performedNo n- GFR Calc Platelets bldOrdered By: Dr. De La Torre on 08-26-2022 Platelets (Bld) [#/Vol] 305 10*3/uL 150-450 [facility] ROUTINE FLU A/B + RSVon FLUAV RNA JAIRON+probe Ql (Unsp spec) Negative Negative for Influenza A by RT-PCR [facility] FLUBV RNA JAIRON+probe Ql (Unsp spec) Negative Negative for Influenza B by RT-PCR [facility] RSV A RNA JAIRON+probe Ql (Unsp spec) Negative Negative for Respiratory Syncytial Virus (RSV) by PCR [facility] Serum heterophile antibody d etectionOrdered By: Dr. De La Torre on 08-26-2022 Heterophile Ab Ql (S) Negative Negative [facility] Serum or plasma albumin vel urement (mass/volume)Ordered By: Dr. De La Torre on 08-26-2022 Albumin [Mass/Vol] 4.0 g/dL 3.2-5.0 [place] Serum or plasma albumin/glob ulin mass ratioOrdered By: Dr. De La Torre on 08-26-2022 Albumin/Globulin [Mass ratio] 0.9 {ratio} 0.9-2.4 [facility] Serum or plasma calcium vel urement (mass/volume)Ordered By: Dr. De La Torre on 08-26-2022 Calcium [Mass/Vol] 9.3 mg/dL 8.5-10.1 [place] Serum or plasma creatinine m easurement (mass/volume)Ordered By: Dr. De La Torre on 08-26-2022 Creatinine [Mass/Vol] 0.81 mg/dL 0.55-1.02 [facility] Comment on above: The validity of the calculated GFR & GFRAA in patients over 70 years has not been determined. Clinical correlation is essential. Serum or plasma urea nitroge n measurement (mass/volume)Ordered By: Dr. De La Torre on 08-26-2022 Urea nitrogen [Mass/Vol] 9 mg/dL 7-18 [facility] Thin prep Papanicolaou smear with manual screeningOrdered By: Dr. De La Torre on 08-26-2022 Thin prep Papanicolaou smear with manual screening 17 U/L 15-37 [facility] Thin prep Papanicolaou smear with manual screening 7 5-15 [facility] STREP A MOLECULAR (POC)on Procedural Control Valid [facility] Strep A (POCT) Negative Negative [facility] UA DIP, URINE (POC)on 2021 BILIRUBIN UA (POCT) Small Abnormal Negative [facility] CLARITY UA (POCT) Clear [facility] COLOR UA (POCT) Yellow [facility] GLUCOSE UA (POCT) Negative Negative mg/dL [facility] HEMOGLOBIN/BLOOD UA (POCT) Negative Negative [facility] KETONE UA (POCT) Negative Negative mg/dL [facility] LEUKOCYTES UA (POCT) Negative Negative [facility] NITRITE UA (POCT) Negative Negative [facility] PH UA (POCT) 5.5 4.5 - 8.0 [facility] Protein Ql (U) Trace Abnormal Negative mg/dL [facility] SPECIFIC GRAVITY UA (POCT) >=1.030 1.005 - 1.030 [facility] UROBILINOGEN UA (POCT) 0.2 E.U./dL Normal E.U./ dL [facility] Influenza virus A and B and SARS-CoV-2 (COVID-19) Ag panel - Upper respiratory specim SARS-CoV-2 (COVID-19) RNA JAIRON+probe Ql (Resp) [facility] Work Phone: Vital Signs Date Time Vital Sign Value Performing Clinician Facility 02-05-2025 12:06-0400 Body temperature 98.2 [degF] Dr. Mitzy Fung MD Work Phone: [facility] 02-05-2025 12:06-0400 Diastolic blood pressure 74 mm[Hg] Dr. Mitzy Fung MD Work Phone: [facility] 02-05-2025 12:06-0400 Heart rate 78 /min Dr. Mitzy Fung MD Work Phone: 1(768)564-553622 [place] [address] 02-05-2025 12:06-0400 Respiratory rate 16 /min Dr. Mitzy Fung MD Work Phone: 0(856)336-595922 [place] [address] 02-05-2025 12:06-0400 SaO2% (BldA) [Mass fraction] 97 % Dr. Mitzy Fung MD Work Phone: 4(557)334-941922 [place] [address] 02-05-2025 12:06-0400 Systolic blood pressure 122 mm[Hg] Dr. Mitzy Fung MD Work Phone: 5(088)983-769722 [place] [address] 02-05-2025 09:26-0400 Body height 162.[address] Mitzy Fung MD Work Phone: 2(829)801-778322 [place] [address] 02-05-2025 09:26-0400 Body mass index (BMI) [Percentile] Per age and sex 43.8 % Dr. Mitzy Fung MD Work Phone: 1(258)290-912222 [place] [address] 02-05-2025 09:26-0400 Body mass index (BMI) [Ratio] 21.2 kg/m2 Dr. Mitzy Fung MD Work Phone: 9(225)976-702522 [place] [address] 02-05-2025 09:26-0400 Body weight 56.[address] Mitzy Fung MD Work Phone: 3(636)689-791322 [place] [address] 01-23-2025 11:04-0400 Body temperature 98 [degF] Dr. Mitzy Fung MD Work Phone: 6(134)394-925222 [place] [address] 01-23-2025 11:04-0400 Diastolic blood pressure 71 mm[Hg] Dr. Mitzy Fung MD Work Phone: 1(289)940-093422 [place] [address] 01-23-2025 11:04-0400 Heart rate 98 /min Dr. Mitzy Fung MD Work Phone: 5(557)695-886822 [place] [address] 01-23-2025 11:04-0400 Respiratory rate 19 /min Dr. Mitzy Fung MD Work Phone: 0(160)781-136422 [place] [address] 01-23-2025 11:04-0400 SaO2% (BldA) [Mass fraction] 1 % Dr. Mitzy Fung MD Work Phone: 9(024)647-748222 [place] [address] 01-23-2025 11:04-0400 Systolic blood pressure 140 mm[Hg] Dr. Mitzy Fung MD Work Phone: 4(700)340-591822 [place] [address] 01-23-2025 09:19-0400 Body height [address] Mitzy Fung MD Work Phone: 9(985)661-445722 [place] [address] 01-23-2025 09:19-0400 Body mass index (BMI) [Percentile] Per age and sex 46.5 % Dr. Mitzy Fung MD Work Phone: 9(066)649-239322 [place] [address] 01-23-2025 09:19-0400 Body mass index (BMI) [Ratio] 21.4 kg/m2 Dr. Mitzy Fung MD Work Phone: 6(374)280-729022 [place] [address] 01-23-2025 09:19-0400 Body weight 58.[address] Mitzy Fung MD Work Phone: 6(995)485-158622 [place] [address] 01-20-2025 19:00-0400 Body temperature 98 [degF] Dr. Mitzy Fung MD Work Phone: 5(780)306-580122 [place] [address] 01-20-2025 19:00-0400 Diastolic blood pressure 57 mm[Hg] Dr. Mitzy Fung MD Work Phone: 7(111)508-232122 [place] [address] 01-20-2025 19:00-0400 Heart rate 69 /min Dr. Mitzy Fung MD Work Phone: 8(362)572-594122 [place] [address] 01-20-2025 19:00-0400 Respiratory rate 18 /min Dr. Mitzy Fung MD Work Phone: 8(321)653-917822 [place] [address] 01-20-2025 19:00-0400 SaO2% (BldA) [Mass fraction] 100 % Dr. Mitzy Fung MD Work Phone: 7(136)748-099922 [place] [address] 01-20-2025 19:00-0400 Systolic blood pressure 116 mm[Hg] Dr. Mitzy Fung MD Work Phone: 0(872)931-305122 [place] [address] 01-20-2025 15:24-0400 Body height 165.[address] Mitzy Fung MD Work Phone: 1(864)521-507122 [place] [address] 01-20-2025 15:24-0400 Body mass index (BMI) [Percentile] Per age and sex 52.6 % Dr. Mitzy Fung MD Work Phone: [facility] 01-20-2025 15:24-0400 Body mass index (BMI) [Ratio] 21.9 kg/m2 Dr. Mitzy Fung MD Work Phone: [facility] 01-20-2025 15:24-0400 Body weight 59.[address] Mitzy Fung MD Work Phone: [facility] 08-27-2024 11:54-0500 Body mass index (BMI) [Ratio] 21.08 kg/m2 Jasmin Praisler-Wood [employer].MEDICAL STAFF PHYSICIAN Work Phone: [facility] 08-27-2024 11:54-0500 Body temperature 98.4 [degF] Jasmin Praisler-Wood [employer].MEDICAL STAFF PHYSICIAN Work Phone: [facility] 08-27-2024 11:54-0500 Body weight 57.1 kg Jasmin Praisler-Wood [employer].MEDICAL STAFF PHYSICIAN Work Phone: [facility] 08-27-2024 11:54-0500 Diastolic blood pressure 78 mm[Hg] Jasmin Praisler-Wood [employer].MEDICAL STAFF PHYSICIAN Work Phone: [facility] 08-27-2024 11:54-0500 Heart rate 106 /min Jasmin Praisler-Wood [employer].MEDICAL STAFF PHYSICIAN Work Phone: [facility] 08-27-2024 11:54-0500 Respiratory rate 20 /min Jasmin Praisler-Wood [employer].MEDICAL STAFF PHYSICIAN Work Phone: [facility] 08-27-2024 11:54-0500 SaO2% (BldA) [Mass fraction] 97 % Jasmin Praisler-Wood [employer].MEDICAL STAFF PHYSICIAN Work Phone: [facility] 08-27-2024 11:54-0500 Systolic blood pressure 110 mm[Hg] Jamsin Praisler-Wood [employer].MEDICAL STAFF PHYSICIAN Work Phone: [facility] 01-26-2024 16:26-0400 Body temperature 97.9 [degF] Martínez Moomaw [employer].MEDICAL STAFF PHYSICIAN Work Phone: [facility] 01-26-2024 16:26-0400 Body weight 60 kg Martínez Moomaw [employer].MEDICAL STAFF PHYSICIAN Work Phone: [facility] 01-26-2024 16:26-0400 Diastolic blood pressure 60 mm[Hg] Martínez Moomaw [employer].MEDICAL STAFF PHYSICIAN Work Phone: [facility] 01-26-2024 16:26-0400 Heart rate 80 /min Martínez Moomaw [employer].MEDICAL STAFF PHYSICIAN Work Phone: [facility] 01-26-2024 16:26-0400 Respiratory rate 16 /min Martínez Moomaw [employer].MEDICAL STAFF PHYSICIAN Work Phone: [facility] 01-26-2024 16:26-0400 SaO2% (BldA) [Mass fraction] 99 % Martínez Moomaw [employer].MEDICAL STAFF PHYSICIAN Work Phone: [facility] 01-26-2024 16:26-0400 Systolic blood pressure 102 mm[Hg] Martínez Moomaw [employer].MEDICAL STAFF PHYSICIAN Work Phone: [facility] 12-29-2023 16:49-0400 Body temperature 97.3 [degF] Jasmin Praisler-Wood [employer].MEDICAL STAFF PHYSICIAN Work Phone: [facility] 12-29-2023 16:49-0400 Body weight 58.6 kg Jasmin Praisler-Wood [employer].MEDICAL STAFF PHYSICIAN Work Phone: [facility] 12-29-2023 16:49-0400 Diastolic blood pressure 79 mm[Hg] Jasmin Praisler-Wood [employer].MEDICAL STAFF PHYSICIAN Work Phone: [facility] 12-29-2023 16:49-0400 Heart rate 94 /min Jasmin Praisler-Wood [employer].MEDICAL STAFF PHYSICIAN Work Phone: [facility] 12-29-2023 16:49-0400 Respiratory rate 18 /min Jasmin Praisler-Wood [employer].MEDICAL STAFF PHYSICIAN Work Phone: [facility] 12-29-2023 16:49-0400 SaO2% (BldA) [Mass fraction] 100 % Jasmin Mina [employer].MEDICAL STAFF PHYSICIAN Work Phone: [facility] 12-29-2023 16:49-0400 Systolic blood pressure 129 mm[Hg] Jasmin Barbara-Paulo [employer].MEDICAL STAFF PHYSICIAN Work Phone: [facility] 12-24-2023 09:16-0400 Body temperature 99 [degF] [facility] 12-24-2023 09:16-0400 Diastolic blood pressure 88 mm[Hg] [facility] 12-24-2023 09:16-0400 Heart rate 58 /min [facility] 12-24-2023 09:16-0400 Respiratory rate 16 /min [facility] 12-24-2023 09:16-0400 SaO2% (BldA) [Mass fraction] 100 % [facility] 12-24-2023 09:16-0400 Systolic blood pressure 121 mm[Hg] [facility] 12-24-2023 07:12-0400 Body height 165.1 cm [facility] 12-24-2023 07:12-0400 Body mass index (BMI) [Percentile] Per age and sex 46.6 % [facility] 12-24-2023 07:12-0400 Body mass index (BMI) [Ratio] 21.2 kg/m2 [facility] 12-24-2023 07:12-0400 Body weight 58 kg [facility] 11-14-2023 18:27-0400 Body temperature 98.4 [degF] [facility] 11-14-2023 18:27-0400 Diastolic blood pressure 59 mm[Hg] [facility] 11-14-2023 18:27-0400 Heart rate 77 /min [facility] 11-14-2023 18:27-0400 Respiratory rate 16 /min [facility] 11-14-2023 18:27-0400 SaO2% (BldA) [Mass fraction] 100 % [facility] 11-14-2023 18:27-0400 Systolic blood pressure 113 mm[Hg] [facility] 11-14-2023 13:07-0400 Body height 165.1 cm [facility] 11-14-2023 13:07-0400 Body mass index (BMI) [Percentile] Per age and sex 60.1 % [facility] 11-14-2023 13:07-0400 Body mass index (BMI) [Ratio] 22.3 kg/m2 [facility] 11-14-2023 13:07-0400 Body weight 60.8 kg [facility] 11-14-2023 12:40-0400 Body temperature 97.5 [degF] Loni Escobar APRN.MEDICAL STAFF PHYSICIAN Work Phone: [facility] 11-14-2023 12:40-0400 Body weight 60.9 kg Loni Escobar APRN.MEDICAL STAFF PHYSICIAN Work Phone: [facility] 11-14-2023 12:40-0400 Diastolic blood pressure 62 mm[Hg] Loni Escobar APRN.MEDICAL STAFF PHYSICIAN Work Phone: [facility] 11-14-2023 12:40-0400 Heart rate 74 /min Loni Escobar APRN.MEDICAL STAFF PHYSICIAN Work Phone: [facility] 11-14-2023 12:40-0400 Respiratory rate 21 /min Loni Escobar APRN.MEDICAL STAFF PHYSICIAN Work Phone: [facility] 11-14-2023 12:40-0400 SaO2% (BldA) [Mass fraction] 99 % Loni Escobar APRN.MEDICAL STAFF PHYSICIAN Work Phone: [facility] 11-14-2023 12:40-0400 Systolic blood pressure 120 mm[Hg] Loni Escobar APRN.MEDICAL STAFF PHYSICIAN Work Phone: [facility] 10-30-2023 16:02-0500 Body temperature 97.81 [degF] Lillian Sanchez APRN.MEDICAL STAFF PHYSICIAN Work Phone: [facility] 10-30-2023 16:02-0500 Body weight 58.8 kg Lillian Sanchez APRN.MEDICAL STAFF PHYSICIAN Work Phone: [facility] 10-30-2023 16:02-0500 Diastolic blood pressure 74 mm[Hg] Lillian Sanchez [employer].MEDICAL STAFF PHYSICIAN Work Phone: [facility] 10-30-2023 16:02-0500 Heart rate 102 /min Lillian Sanchez [employer].MEDICAL STAFF PHYSICIAN Work Phone: [facility] 10-30-2023 16:02-0500 Respiratory rate 18 /min Lillian Sanchez [employer].MEDICAL STAFF PHYSICIAN Work Phone: [facility] 10-30-2023 16:02-0500 SaO2% (BldA) [Mass fraction] 99 % Lillian Sanchez [employer].MEDICAL STAFF PHYSICIAN Work Phone: [facility] 10-30-2023 16:02-0500 Systolic blood pressure 114 mm[Hg] Lillian Sanchez [employer].MEDICAL STAFF PHYSICIAN Work Phone: [facility] 09-25-2023 05:12-0500 Body temperature 98 [degF] [facility] 09-25-2023 05:12-0500 Diastolic blood pressure 83 mm[Hg] [facility] 09-25-2023 05:12-0500 Heart rate 72 /min [facility] 09-25-2023 05:12-0500 Respiratory rate 18 /min [facility] 09-25-2023 05:12-0500 SaO2% (BldA) [Mass fraction] 99 % [facility] 09-25-2023 05:12-0500 Systolic blood pressure 129 mm[Hg] [facility] 09-25-2023 04:30-0500 Body height 165.1 cm [facility] 09-25-2023 04:30-0500 Body mass index (BMI) [Percentile] Per age and sex 59.5 % [facility] 09-25-2023 04:30-0500 Body mass index (BMI) [Ratio] 22.2 kg/m2 [facility] 09-25-2023 04:30-0500 Body weight 60.7 kg [facility] 07-28-2023 18:54-0500 Body temperature 98.1 [degF] Ivonne Dawson [employer].MEDICAL STAFF PHYSICIAN Work Phone: [facility] 07-28-2023 18:54-0500 Body weight 59.78 kg Ivonne Dawson [employer].MEDICAL STAFF PHYSICIAN Work Phone: [facility] 07-28-2023 18:54-0500 Diastolic blood pressure 70 mm[Hg] Ivonne Dawson [employer].MEDICAL STAFF PHYSICIAN Work Phone: [facility] 07-28-2023 18:54-0500 Heart rate 83 /min Ivonne Dawson [employer].MEDICAL STAFF PHYSICIAN Work Phone: [facility] 07-28-2023 18:54-0500 Respiratory rate 16 /min Ivonne Dawson [employer].MEDICAL STAFF PHYSICIAN Work Phone: [facility] 07-28-2023 18:54-0500 SaO2% (BldA) [Mass fraction] 100 % Ivonne Dawson [employer].MEDICAL STAFF PHYSICIAN Work Phone: [facility] 07-28-2023 18:54-0500 Systolic blood pressure 102 mm[Hg] Ivonne Dawson [employer].MEDICAL STAFF PHYSICIAN Work Phone: [facility] 07-04-2023 09:16-0500 Body mass index (BMI) [Percentile] Per age and sex 78.9 % [facility] 07-04-2023 09:16-0500 Body mass index (BMI) [Ratio] 24.5 kg/m2 [facility] 07-04-2023 09:16-0500 Body temperature 98.2 [degF] [facility] 07-04-2023 09:16-0500 Body weight 64.7 kg [facility] 07-04-2023 09:16-0500 Diastolic blood pressure 109 mm[Hg] [facility] 07-04-2023 09:16-0500 Heart rate 114 /min [facility] 07-04-2023 09:16-0500 Respiratory rate 23 /min [facility] 07-04-2023 09:16-0500 SaO2% (BldA) [Mass fraction] 98 % [facility] 07-04-2023 09:16-0500 Systolic blood pressure 123 mm[Hg] [facility] 02-04-2023 21:31-0400 Body height 167.64 cm [facility] 02-04-2023 21:31-0400 Body mass index (BMI) [Percentile] Per age and sex 62.8 % [facility] 02-04-2023 21:31-0400 Body mass index (BMI) [Ratio] 22.3 kg/m2 [facility] 02-04-2023 21:31-0400 Body temperature 99.5 [degF] [facility] 02-04-2023 21:31-0400 Body weight 62.7 kg [facility] 02-04-2023 21:31-0400 Diastolic blood pressure 70 mm[Hg] [facility] 02-04-2023 21:31-0400 Heart rate 108 /min [facility] 02-04-2023 21:31-0400 Respiratory rate 18 /min [facility] 02-04-2023 21:31-0400 SaO2% (BldA) [Mass fraction] 99 % [facility] 02-04-2023 21:31-0400 Systolic blood pressure 108 mm[Hg] [facility] 11-28-2022 18:28-0400 Respiratory rate 18 /min [facility] 11-28-2022 14:19-0400 Body height 162.56 cm [facility] 11-28-2022 14:19-0400 Body mass index (BMI) [Percentile] Per age and sex 63.5 % [facility] 11-28-2022 14:19-0400 Body mass index (BMI) [Ratio] 22.3 kg/m2 [facility] 11-28-2022 14:19-0400 Body temperature 98 [degF] [facility] 11-28-2022 14:19-0400 Body weight 58.96 kg [facility] 11-28-2022 14:19-0400 Diastolic blood pressure 85 mm[Hg] [facility] 11-28-2022 14:19-0400 Heart rate 96 /min [facility] 11-28-2022 14:19-0400 SaO2% (BldA) [Mass fraction] 100 % [facility] 11-28-2022 14:19-0400 Systolic blood pressure 129 mm[Hg] [facility] 11-18-2022 04:39-0400 Body temperature 98.2 [degF] [facility] 11-18-2022 04:39-0400 Diastolic blood pressure 68 mm[Hg] [facility] 11-18-2022 04:39-0400 Heart rate 79 /min [facility] 11-18-2022 04:39-0400 Respiratory rate 16 /min [facility] 11-18-2022 04:39-0400 SaO2% (BldA) [Mass fraction] 98 % [facility] 11-18-2022 04:39-0400 Systolic blood pressure 108 mm[Hg] [facility] 11-18-2022 01:45-0400 Body height 162.56 cm [facility] 11-18-2022 01:45-0400 Body mass index (BMI) [Percentile] Per age and sex 70.1 % [facility] 11-18-2022 01:45-0400 Body mass index (BMI) [Ratio] 23 kg/m2 [facility] 11-18-2022 01:45-0400 Body temperature 98.7 [degF] [facility] 11-18-2022 01:45-0400 Body weight 60.9 kg [facility] 11-18-2022 01:45-0400 Heart rate 93 /min [facility] 11-18-2022 01:45-0400 Respiratory rate 17 /min [facility] 11-18-2022 01:45-0400 SaO2% (BldA) [Mass fraction] 96 % [facility] 11-18-2022 01:41-0400 Diastolic blood pressure 65 mm[Hg] [facility] 11-18-2022 01:41-0400 Systolic blood pressure 103 mm[Hg] [facility] 11-12-2022 12:56-0400 Body temperature 96.9 [degF] [facility] 11-12-2022 12:56-0400 Diastolic blood pressure 62 mm[Hg] [facility] 11-12-2022 12:56-0400 Heart rate 74 /min [facility] 11-12-2022 12:56-0400 Respiratory rate 16 /min [facility] 11-12-2022 12:56-0400 SaO2% (BldA) [Mass fraction] 98 % [facility] 11-12-2022 12:56-0400 Systolic blood pressure 105 mm[Hg] [facility] 11-12-2022 09:49-0400 Body height 167.64 cm [facility] 11-12-2022 09:49-0400 Body mass index (BMI) [Percentile] Per age and sex 48.5 % [facility] 11-12-2022 09:49-0400 Body mass index (BMI) [Ratio] 21 kg/m2 [facility] 11-12-2022 09:49-0400 Body weight 59.2 kg [facility] 08-26-2022 11:28-0500 Respiratory rate 20 /min [facility] 08-26-2022 09:51-0500 Body height 167.64 cm [facility] Work Phone: 08-26-2022 09:51-0500 Body mass index (BMI) [Percentile] Per age and sex 58.1 % [facility] 08-26-2022 09:51-0500 Body mass index (BMI) [Ratio] 21.7 kg/m2 [facility] 08-26-2022 09:51-0500 Body temperature 97.4 [degF] [facility] 08-26-2022 09:51-0500 Body weight 61.23 kg [facility] 08-26-2022 09:51-0500 Diastolic blood pressure 86 mm[Hg] [facility] 08-26-2022 09:51-0500 Heart rate 106 /min [facility] 08-26-2022 09:51-0500 SaO2% (BldA) [Mass fraction] 99 % [facility] 08-26-2022 09:51-0500 Systolic blood pressure 121 mm[Hg] [facility] 08-25-2022 16:19-0500 Body temperature 100.09 [degF] Moe Simons MD Work Phone: [facility] 08-25-2022 16:19-0500 Body weight 58.06 kg Moe Simons MD Work Phone: [facility] 08-25-2022 16:19-0500 Diastolic blood pressure 86 mm[Hg] Meo Simons MD Work Phone: [facility] 08-25-2022 16:19-0500 Heart rate 109 /min Moe Simons MD Work Phone: [facility] 08-25-2022 16:19-0500 Respiratory rate 18 /min Moe Simons MD Work Phone: [facility] 08-25-2022 16:19-0500 SaO2% (BldA) [Mass fraction] 100 % Moe Simons MD Work Phone: [facility] 08-25-2022 16:19-0500 Systolic blood pressure 120 mm[Hg] Moe Simons MD Work Phone: [facility] 06-24-2022 08:19-0400 Body temperature 97.9 [degF] Gus Pendlebury [employer].MEDICAL STAFF PHYSICIAN Work Phone: [facility] 06-24-2022 08:19-0400 Body weight 61.33 kg Gus Pendlebury [employer].MEDICAL STAFF PHYSICIAN Work Phone: [facility] 06-24-2022 08:19-0400 Diastolic blood pressure 76 mm[Hg] Gus Pendlebury [employer].MEDICAL STAFF PHYSICIAN Work Phone: [facility] 06-24-2022 08:19-0400 Heart rate 101 /min Gus Pendlebury [employer].MEDICAL STAFF PHYSICIAN Work Phone: [facility] 06-24-2022 08:19-0400 Respiratory rate 16 /min Gus Pendlebury [employer].MEDICAL STAFF PHYSICIAN Work Phone: [facility] 06-24-2022 08:19-0400 SaO2% (BldA) [Mass fraction] 98 % Gus Pendlebury [employer].MEDICAL STAFF PHYSICIAN Work Phone: [facility] 06-24-2022 08:19-0400 Systolic blood pressure 124 mm[Hg] [facility].MEDICAL STAFF PHYSICIAN Work Phone: [facility] 01-17-2022 13:00-0400 Body temperature 97.7 [degF] [facility] [employer].MEDICAL STAFF PHYSICIAN Work Phone: [facility] 01-17-2022 13:00-0400 [facility].MEDICAL STAFF PHYSICIAN Work Phone: [facility] 01-17-2022 13:00-0400 Diastolic blood pressure 60 mm[Hg] [facility] [employer].MEDICAL STAFF PHYSICIAN Work Phone: [facility] 01-17-2022 13:00-0400 Heart rate 90 /min [facility] [employer].MEDICAL STAFF PHYSICIAN Work Phone: [facility] 01-17-2022 13:00-0400 Respiratory rate 16 /min [facility] [employer].MEDICAL STAFF PHYSICIAN Work Phone: [facility] 01-17-2022 13:00-0400 SaO2% (BldA) [Mass fraction] 99 % [facility] [employer].MEDICAL STAFF PHYSICIAN Work Phone: [facility] 01-17-2022 13:00-0400 Systolic blood pressure 114 mm[Hg] [facility] [employer].MEDICAL STAFF PHYSICIAN Work Phone: [facility] Encounters Encounter Date Encounter Type Care Provider [...] by physician Lois Conde MD Work Phone: [facility] Comment on above: Weight loss; Family history of type 2 diabetes mellitus Start: 09-07-2024 End: 09-07-2024 ambulatory [facility] Start: 08-29-2024 End: 08-29-2024 ambulatory [facility] Start: 08-29-2024 End: 08-29-2024 ambulatory [facility] Facility:[facility] Start: 08-27-2024 End: 08-27-2024 ambulatory [facility] Facility:[facility] Start: 08-27-2024 End: 08-27-2024 Patient encounter procedure Jasmin Enriquez APRN.MEDICAL STAFF PHYSICIAN Work Phone: [facility] Comment on above: Sore throat (Primary Dx); Pharyngitis, unspecified etiology; Wheezing; Viral URI with cough; Bronchitis Start: 06-15-2024 End: 06-15-2024 [facility] Facility:[facility] Start: 04-24-2024 End: 04-26-2024 Evaluation and management of inpatient NATANAEL WATKINSSANA Facility:[id number] Start: 04-23-2024 End: 04-24-2024 Emergency department patient visit Mitzy Waller [place] Facility:[facility] Start: 04-20-2024 End: 04-20-2024 ambulatory [facility] Start: 2024 End: 2024 Emergency department patient visit [facility] Facility:[facility] Start: 04-12-2024 End: 04-12-2024 Emergency department patient visit [facility] Facility:[facility] Start: 03-02-2024 ambulatory [facility] Facility: [facility] Start: 01-26-2024 End: 01-26-2024 ambulatory [facility] Facility:[facility] Start: 01-26-2024 End: 01-26-2024 Patient encounter procedure Martínez Lyles APRN.MEDICAL STAFF PHYSICIAN Work Phone: [facility] Comment on above: Ear pain, right (Tanya sadiq Dx) Start: 12-29-2023 End: 12-29-2023 ambulatory [facility] Facility:[facility] Start: 12-29-2023 End: 12-29-2023 Patient encounter procedure Jasmin Enriquez APRN.MEDICAL STAFF PHYSICIAN Work Phone: [facility] Comment on above: Burning with urinati on (Primary Dx); Otalgia of right ear Start: 12-24-2023 End: 12-24-2023 Admission to same day surgery center [facility] Start: 12-24-2023 End: 12-24-2023 ambulatory [facility] Work Phone: Start: 11-14-2023 End: 11-14-2023 Emergency department patient visit [facility] Work Phone: Start: 11-14-2023 End: 11-14-2023 [facility] Facility:[facility] Start: 11-14-2023 End: 11-14-2023 Patient encounter procedure Loni Escobar APRN.MEDICAL STAFF PHYSICIAN Work Phone: [facility] Comment on above: Pain in pelvis (Prim vivien Dx); Flank pain Start: 10-31-2023 Telephone encounter Moe Vines MD Work Phone: [facility] Comment on above: Results (Prince +) Start: 10-30-2023 End: 10-30-2023 [facility] Facility:[facility] Start: 10-30-2023 End: 10-30-2023 Patient encounter procedure Lillian Sanchez [employer].MEDICAL STAFF PHYSICIAN Work Phone: [facility] Comment on above: Dysuria (Primary Dx) Start: 09-25-2023 End: 09-25-2023 Emergency department patient visit [facility] Work Phone: Start: 08-02-2023 End: 08-02-2023 Nursing evaluation of patient and report Nurse [facility] Work Phone: [facility] Comment on above: Urinary frequency (P rimary Dx) Start: 07-30-2023 Telephone encounter Lillian Barnes georgesasha [employer].MEDICAL STAFF PHYSICIAN Work Phone: [facility] Comment on above: Results Start: 07-28-2023 End: 07-28-2023 Patient encounter procedure Ivonne Dawson [employer].MEDICAL STAFF PHYSICIAN Work Phone: [facility] Comment on above: Urinary frequency (P rimary Dx) Start: 07-04-2023 End: 07-04-2023 Emergency department patient visit [facility]Emergency Department Work Phone: Start: 03-27-2023 End: 03-27-2023 ambulatory [facility] Work Phone: Start: 03-27-2023 End: 03-27-2023 Patient encounter procedure [facility]Labor[facility] Work Phone: Start: 03-19-2023 End: 03-19-2023 ambulatory [facility] Work Phone: Start: 03-19-2023 End: 03-19-2023 Patient encounter procedure [facility] Work Phone: Start: 02-04-2023 End: 02-04-2023 Emergency department patient visit [facility]gency [facility] Start: 12-01-2022 End: 12-01-2022 Patient encounter procedure [facility] Start: 11-28-2022 End: 11-28-2022 Emergency department patient visit [facility]gency [facility] Start: 11-24-2022 End: 11-24-2022 Subsequent hospital visit by physician Codi Lemus [employer]-MEDICAL STAFF PHYSICIAN Work Phone: [facility] Comment on above: Hirsutism; Irregular menses Start: 11-18-2022 End: 11-18-2022 Admission to same day surgery center [facility] [employer] [facility] [employer] Start: 11-18-2022 End: 11-18-2022 ambulatory [facility] Work Phone: Start: 11-12-2022 End: 11-12-2022 Emergency department patient visit [facility]gency [facility] Start: 11-10-2022 End: 11-10-2022 ambulatory [facility] Work Phone: Start: 11-10-2022 End: 11-10-2022 Patient encounter procedure [facility]Cat Scan, [facility] Start: 08-26-2022 Telephone encounter Jasmin castilloPaulo [employer].MEDICAL STAFF PHYSICIAN Work Phone: [facility] Comment on above: Results Start: 08-26-2022 End: 08-26-2022 Emergency department patient visit [facility]gency [facility] Start: 08-25-2022 End: 08-25-2022 Patient encounter procedure Moe Simons MD Work Phone: [facility] Comment on above: Sore throat (Primary Dx); Influenza-like illness Start: 06-25-2022 Telephone encounter Lillian Cameron ruffin [employer].MEDICAL STAFF PHYSICIAN Work Phone: [facility] Comment on above: Results, Lab Start: 06-24-2022 End: 06-24-2022 Patient encounter procedure Gus Munroe [employer].MEDICAL STAFF PHYSICIAN Work Phone: [facility] Comment on above: Urinary frequency (P rimary Dx) Start: 01-17-2022 End: 01-17-2022 Patient encounter procedure Gus Munroe [employer].MEDICAL STAFF PHYSICIAN Work Phone: [facility] Comment on above: Abdominal pain, unsp ecified abdominal location (Primary Dx); Acute sinusitis, recurrence not specified, unspecified location Start: 11-20-2006 Patient encounter status Gus Shaneka [employer].MEDICAL STAFF PHYSICIAN Work Phone: [facility] Work Phone: Procedures Date Procedure Procedure Detail [...] 08-27-2024 STREP A MOLECULAR (POC) Loni Escobar [employer].MEDICAL STAFF PHYSICIAN Work Phone: Start: 12-29-2023 Urnls dip stick/tabl et rgnt auto w/o microscopy Senait Kraus PA-C Work Phone: Start: 12-24-2023 Pelvic examination u nder anesthesia Start: 11-14-2023 Urine culture Start: 11-14-2023 CT of abdomen and pe lvis without contrast Start: 11-14-2023 Urnls dip stick/tabl et rgnt auto w/o microscopy Lillian Sanchez [employer].MEDICAL STAFF PHYSICIAN Work Phone: Start: 10-30-2023 Urnls dip stick/tabl et rgnt auto w/o microscopy Jasmin Enriquez [employer].MEDICAL STAFF PHYSICIAN Work Phone: Start: 07-28-2023 Urnls dip stick/tabl [...] of thyroid stimulating hormone tsh Codi Lemus [employer]-MEDICAL STAFF PHYSICIAN Work Phone: Start: 11-18-2022 Local destruction of [...] et rgnt auto w/o microscopy Gus Munroe [employer].MEDICAL STAFF PHYSICIAN Work Phone: Bacteria identificat ion test Bacteria identified in Urine by Culture SARS-CoV-2 & FLU Ant igen (Rapid) SARS-CoV-2 & FLU Ant igen (Rapid) Urine culture Urine culture Plan of Treatment Date Care Activity Detail Author Start: 04-28-2027 Tetanus Diphtheria a nd Pertussis Vaccines (7 - Td or Tdap) Tetanus Diphtheria and Pertussis Vaccines (7 - Td or Tdap) [facility] Start: 04-28-2027 Urine microalbumin profile DTa P,Tdap,Td Vaccine (7 - Td or Tdap) [facility] Start: 02-05-2025 [facility] Start: 01-23-2025 [facility] Start: 01-20-2025 [facility] Start: 04-24-2024 COVID-19 (2023-09 5 season) COVID-19 () [facility] Start: 04-24-2024 Covid-19 Vaccine ( season) Covid-19 Vaccine () [facility] Start: 04-24-2024 Influenza vaccination C [facility] Start: 2024 Pneumococcal vaccination Pneum ococcal Vaccine (1 of 2 - PCV) [facility] Start: 03-10-2024 Well Visit Well Visit [facility] Start: 12-24-2023 Patient discharge [facility] Start: 11-14-2023 [facility] Start: 11-14-2023 Bacteria identified in Urine by Culture [facility] Start: 11-14-2023 [facility] Start: 09-25-2023 [facility] Start: 08-24-2023 Behavioral Health Screening Behavioral Health Screening [facility] Start: 08-24-2023 Depression Assessment Depression Ass essment [facility] Start: 07-30-2023 End: 10-29-2023 Bacteria identified in Urine by Culture URINE CULTURE Microbiology Routine Urinary frequency Expected: 07/30/2023, Expires: 10/29/2023 [facility] Work Phone: Comment on above: Expected: 07/30/2023 , Expires: 10/29/2023 Start: 07-04-2023 [facility] Start: 04-24-2023 Covid-19 Vaccine ( season) Covid-19 Vaccine () [facility] Start: 04-24-2023 Influenza vaccination Influenza Vacc ine (#1) [facility] Start: 2023 Annual PCP Team [employer] hunter Disease Visit Annual PCP Team Chronic Disease Visit [facility] Start: 2023 Anxiety Screening Anxiety Screening [facility] Start: 2023 Chlamydia Screening (18-24) Chlamydia Screening (18-) [facility] Start: 2023 Depression Screening Depression Scre ening [facility] Start: 2023 GC (Gonorrhea) Scree rosa (18-24) GC (Gonorrhea) Screening (18-24) [facility] Start: 2023 Hearing Screening Hearing Screening [facility] Start: 2023 Hepatitis C Screening Hepatitis C [facility] Start: 2023 Hepatitis C screening Hepatitis C [facility] Start: 2023 HIV Screening HIV Screening [facility] Start: 2023 HIV screening HIV Screening [facility] Start: 2023 PATH Education 18+ Years PATH Education 18+ Years [facility] Start: 2023 Screening for Chlamy edilia trachomatis Chlamydia Screening () [facility] Start: 2023 Spirometry Spirometry [facility] Start: 11-28-2022 [facility] Start: 11-18-2022 Anesthesia intraperi toneal lower abd w/laps nos ANESTH SURG LOWER ABDOMEN [facility] Start: 11-18-2022 Laps surg w/aspir cavity/cyst single/multiple LAPAROSCOPY ASPIRATION [facility] Start: 11-18-2022 Ambulation without limitation [facility] Start: 11-18-2022 Catheterization of vein [facility] Start: 11-18-2022 Medical regimen orde rs management [facility] Start: 11-18-2022 Medication education [facility] Start: 11-18-2022 Notification of physician [facility] Start: 11-18-2022 Oxygen therapy [facility] Start: 11-18-2022 End: 11-18-2022 Patient discharge [facility] Start: 11-18-2022 Procedure discontinued [facility] Start: 11-18-2022 Taking patient vital signs [facility] Start: 11-18-2022 Vital signs measurements [facility] Start: 11-18-2022 [facility] Start: 11-18-2022 Local destruction of ovary Lap aroscopic, Ovarian Cystectomy (Right) [facility] Start: 11-18-2022 Verification routine [facility] Start: 11-18-2022 Admission procedure [facility] Start: 11-18-2022 [facility] Start: 08-26-2022 [facility] Start: 08-24-2022 Depression Assessment Depression Ass essment [facility] Start: 04-26-2022 Well Visit Well Visit [facility] Start: 04-24-2022 FLU (#1) FLU (#1) [facility] Start: 04-24-2022 Influenza vaccination INFLUENZA (#1) [facility] Start: 10-21-2021 COVID-19 VACCINE (3 - Booster for Pfizer series) COVID-19 VACCINE (3 - Booster for Pfizer series) [facility] Start: 07-17-2021 COVID-19 (3 - Booste r for Pfizer series) COVID-19 (3 - Booster for Pfizer series) [facility] Start: 07-17-2021 COVID-19 VACCINE (3 - Booster for Pfizer series) COVID-19 VACCINE (3 - Booster for Pfizer series) [facility] Start: 05-24-2021 MenB (2 of 2 - MenB 2-Dose Series Bexsero) MenB (2 of 2 - MenB 2-Dose Series Bexsero) [facility] Start: 2021 MENINGOCOCCAL CONJUG ATE (1 - 2-dose series) MENINGOCOCCAL CONJUGATE (1 - 2-dose series) [facility] Start: 2020 CHLAMYDIA SCREENING (<18) CHLA MYDIA SCREENING (<18) [facility] Start: 2020 GC (GONORRHEA) SCREE ROSA (<18) GC (GONORRHEA) SCREENING (<18) [facility] Start: 2020 Hearing Screening Hearing Screening [facility] Start: 2020 PATH Education 15-17 + Years PATH Education 15-17+ Years [facility] Start: 2020 Vision Screening Vision Screening [facility] Start: 2019 PEDS TO ADULT TRANSI TION ANNUAL ASSESSMENT PEDS TO ADULT TRANSITION ANNUAL ASSESSMENT [facility] Start: 2017 Adult depression scr eening assessment DEPRESSION SCREENING [facility] Start: 2017 PATH Education 12-14 + Years PATH Education 12-14+ Years [facility] Start: 2017 PATH Transitional Assessment PATH Transitional Assessment [facility] Start: 2017 PEDS TO ADULT TRANSI TION INITIAL DISCUSSION PEDS TO ADULT TRANSITION INITIAL DISCUSSION [facility] Start: 2016 HPV VACCINE (1 - 2-d ose series) HPV VACCINE (1 - 2-dose series) [facility] Start: 2015 MENINGOCOCCAL B: Con product safety officer based on risk (1 of 2 - Risk Bexsero 2-dose series) MENINGOCOCCAL B: Consider based on risk (1 of 2 - Risk Bexsero 2-dose series) [facility] Start: 2012 Urine microalbumin profile DTAP,TDAP ,TD (4 - Tdap) [facility] Start: 2011 PNEUMOCOCCAL (1 - PPSV23) PNEU MOCOCCAL (1 - PPSV23) [facility] Start: 2011 Pneumococcal vaccination [facility] Start: 2009 ASTHMA CONTROL TEST ASTHMA CONTROL T EST [facility] Start: 2009 MMR (2 of 2 - Standa rd series) MMR (2 of 2 - Standard series) [facility] Start: 2009 VARICELLA (2 of 2 - 2-dose childhood series) VARICELLA (2 of 2 - 2-dose childhood series) [facility] Start: 2007 ASTHMA ACTION PLAN ASTHMA ACTION VALERIE N [facility] Start: 2005 POLIO (1 of 3 - 4-do se series) POLIO (1 of 3 - 4-dose series) [facility] Bacteria identified in Urine by Culture URINE CULTURE Microbiology Routine Urinary frequency Ordered: 06/24/2022 [facility] Work Phone: Comment on above: Ordered: 06/24/2022 Bacteria identified in Urine by Culture Urine Culture [facility] Bacteria identified in Urine by Culture URINE CULTURE Microbiology Routine Urinary frequency 07/28/2023 7:38 PM EST [facility] Work Phone: Bacteria identified in Urine by Culture URINE CULTURE Microbiology Routine Dysuria Ordered: 10/30/2023 [facility] Work Phone: Comment on above: Ordered: 10/30/2023 Bacteria identified in Urine by Culture URINE CULTURE Microbiology Routine Burning with urination 12/29/2023 5:02 PM EDT [facility] Work Phone: BACTERIAL VAGINOSIS AMPLIFICATION BACTERIAL VAGINOSIS AMPLIFICATION Lab Routine Urinary frequency Ordered: 06/24/2022 [facility] Work Phone: Comment on above: Ordered: 06/24/2022 BACTERIAL VAGINOSIS NAAT BACTERI AL VAGINOSIS NAAT Lab Routine Dysuria Ordered: 10/30/2023 [facility] Work Phone: Comment on above: Ordered: 10/30/2023 PRINCE / TRICHOMONA S AMPLIFICATION PRINCE / TRICHOMONAS AMPLIFICATION Microbiology Routine Urinary frequency Ordered: 06/24/2022 [facility] Work Phone: Comment on above: Ordered: 06/24/2022 PRINCE/TRICHOMONAS NAAT PRINCE /TRICHOMONAS NAAT Lab Routine Dysuria Ordered: 10/30/2023 [facility] Work Phone: Comment on above: Ordered: 10/30/2023 COVID & INFLUENZA A/ B & RSV PCR, ROUTINE COVID & INFLUENZA A/B & RSV PCR, ROUTINE Microbiology Routine Viral URI with cough Ordered: 08/27/2024 [facility] Work Phone: Comment on above: Ordered: 08/27/2024 DHEA Sulfate DHEA Sulfate Lab Routine Hirsutism 11/24/2022 3:30 PM EDT [facility] Lactic acid measurement [facility] Patient Education [facility] Work Phone: Patient referral [facility] Work Phone: End: 11-24-2022 Sex Hormone Binding Globulin Sex Hormone Binding Globulin Lab Routine For lab collect this frequency defaults to the next routine lab draw time. Routine times: 0600; 1100; 1400; 1900; 2200 for 1 Occurrences starting 11/24/2022 until 11/24/2022 [facility] Work Phone: Comment on above: For lab collect this frequency defaults to the next routine lab draw time. Routine times: 0600; 1100; 1400; 1900; 2200 for 1 Occurrences starting 11/24/2022 until 11/24/2022 Sex Hormone Binding Globulin Sex Hormone Binding Globulin Lab Routine 11/24/2022 3:30 PM EDT [facility] Testosterone, free Testosterone, free Lab Routine Irregular menses 11/24/2022 3:30 PM EDT [facility] End: 09-07-2024 Transglutaminase IgA [facility] Work Phone: Comment on above: 1 Occurrences starti ng 09/07/2024 until 09/07/2024 [facility] Immunizations Immunization Date Immunization Notes Care Provider Mathew lopez 09-07-2024 influenza, seasonal, injectable, preservative free Lois Conde MD Work Phone: [facility] 03-10-2023 meningococcal B vacc ine, recombinant, OMV, adjuvanted Lois Conde MD Work Phone: [facility] 05-22-2021 PFIZER (purple cap) COVID-19, mRNA, LNP-S, 30mcg/0.3mL dose Denielle White [employer]-MEDICAL STAFF PHYSICIAN Work Phone: [facility] 04-30-2021 influenza, injectabl e, quadrivalent, preservative free Denielle White [employer]-MEDICAL STAFF PHYSICIAN Work Phone: [facility] 04-30-2021 PFIZER (purple cap) COVID-19, mRNA, LNP-S, 30mcg/0.3mL dose Denielle White [employer]-MEDICAL STAFF PHYSICIAN Work Phone: [facility] 04-30-2021 influenza virus vacc ine, unspecified formulation Ivonne Dawson [employer].MEDICAL STAFF PHYSICIAN Work Phone: [facility] 04-26-2021 meningococcal B vacc ine, recombinant, OMV, adjuvanted Denielle White [employer]-MEDICAL STAFF PHYSICIAN Work Phone: [facility] 04-26-2021 meningococcal polysaccharide (groups A, C, Y and W-135) diphtheria toxoid conjugate vaccine (MCV4P) Codi Lemus [employer] Work Phone: [facility] 04-16-2020 hepatitis A vaccine, pediatric/adolescent dosage, 2 dose schedule Codi Lemus APRN-MEDICAL STAFF PHYSICIAN Work Phone: [facility] 04-16-2020 Human Papillomavirus 9-valent vaccine Codi Lemus [employer]-[facility] Work Phone: [facility] 04-29-2018 hepatitis A vaccine, pediatric/adolescent dosage, 2 dose schedule Codi Lemus [employer] Work Phone: [facility] 04-29-2018 Human Papillomavirus 9-valent vaccine Codi Lemus [employer] Work Phone: [facility] 06-30-2017 influenza, injectabl e, quadrivalent, preservative free Codi Lemus [employer] Work Phone: [facility] 04-28-2017 meningococcal polysaccharide (groups A, C, Y and W-135) diphtheria toxoid conjugate vaccine (MCV4P) Codi Lemus [employer] Work Phone: [facility] 04-28-2017 tetanus toxoid, redu lorie diphtheria toxoid, and acellular pertussis vaccine, adsorbed Codi Lemus [employer] Work Phone: [facility] 05-14-2015 influenza, live, intranasal, quadrivalent Jaradle Mariah [employer] Work Phone: [facility] 05-10-2014 influenza, live, intranasal, quadrivalent Jaradle White [employer]-MEDICAL STAFF PHYSICIAN Work Phone: [facility] 04-22-2012 influenza virus vacc ine, split virus (incl. purified surface antigen) Codi Lemus [employer] Work Phone: [facility] 06-07-2010 influenza virus vacc ine, split virus (incl. purified surface antigen) Codi Lemus [employer]NER-MEDICAL STAFF PHYSICIAN Work Phone: [facility] 05-10-2010 diphtheria, tetanus toxoids and acellular pertussis vaccine Denaishwarya Lemus WR[employer]NER-MEDICAL STAFF PHYSICIAN Work Phone: [facility] 05-10-2010 influenza virus vacc ine, split virus (incl. purified surface antigen) Denaishwarya Lemus WRAP [employer]NER-MEDICAL STAFF PHYSICIAN Work Phone: [facility] 05-10-2010 measles, mumps, rube lla, and varicella virus vaccine Denaishwarya Lemus [employer]-MEDICAL STAFF PHYSICIAN Work Phone: [facility] 05-10-2010 poliovirus vaccine, inactivated Denaishwarya Lemus WR[employer]NER-MEDICAL STAFF PHYSICIAN Work Phone: [facility] 11-26-2006 diphtheria, tetanus toxoids and acellular pertussis vaccine Gus Munroe [employer].MEDICAL STAFF PHYSICIAN Work Phone: [facility] Work Phone: 11-26-2006 pneumococcal conjuga te vaccine, 7 valent Gus Munroe [employer].MEDICAL STAFF PHYSICIAN Work Phone: [facility] Work Phone: 11-26-2006 varicella virus vaccine Yaron Munroe [employer].MEDICAL STAFF PHYSICIAN Work Phone: [facility] Work Phone: 06-08-2006 haemophilus influenz ae type b vaccine, HbOC conjugate Guswindy Munroe [employer].MEDICAL STAFF PHYSICIAN Work Phone: [facility] Work Phone: 06-08-2006 haemophilus influenz ae type b vaccine, PRP-T conjugate Codi Lemus WR[employer]-MEDICAL STAFF PHYSICIAN Work Phone: [facility] 06-08-2006 measles, mumps and rubella virus vaccine Gus Munroe [employer].MEDICAL STAFF PHYSICIAN Work Phone: [facility] Work Phone: 06-08-2006 pneumococcal conjuga te vaccine, 7 valent Gus Munroe [employer].MEDICAL STAFF PHYSICIAN Work Phone: [facility] Work Phone: 02-20-2006 pneumococcal conjuga te vaccine, 7 valent Codi Lemus WR[employer]NER-MEDICAL STAFF PHYSICIAN Work Phone: [facility] 2005 diphtheria, tetanus toxoids and acellular pertussis vaccine Denaishwarya Lemus WRAP [employer]URNER-MEDICAL STAFF PHYSICIAN Work Phone: [facility] 2005 DTaP-hepatitis B and poliovirus vaccine [facility] [employer]-MEDICAL STAFF PHYSICIAN Work Phone: [facility] 2005 haemophilus influenz ae type b vaccine, PRP-T conjugate Codi Lemus WR[employer]URNER-MEDICAL STAFF PHYSICIAN Work Phone: [facility] 2005 hepatitis B vaccine, pediatric or pediatric/adolescent dosage Denaishwarya Lemus WR[employer]NER-MEDICAL STAFF PHYSICIAN Work Phone: [facility] 2005 pneumococcal conjuga te vaccine, 7 valent Codi Lemus WRAP TURNER-MEDICAL STAFF PHYSICIAN Work Phone: [facility] 2005 poliovirus vaccine, inactivated Jarad Mariah WR[employer]NER-MEDICAL STAFF PHYSICIAN Work Phone: [facility] 2005 diphtheria, tetanus toxoids and acellular pertussis vaccine Codi Lemus WRAP TURNER-MEDICAL STAFF PHYSICIAN Work Phone: [facility] 2005 haemophilus influenz ae type b vaccine, PRP-T conjugate [facility] Mariah WRAP TURNER-MEDICAL STAFF PHYSICIAN Work Phone: [facility] 2005 poliovirus vaccine, inactivated Codi Lemus WR[employer]URNER-MEDICAL STAFF PHYSICIAN Work Phone: [facility] 2005 diphtheria, tetanus toxoids and acellular pertussis vaccine Codi Lemus WR[employer]NER-MEDICAL STAFF PHYSICIAN Work Phone: [facility] 2005 haemophilus influenz ae type b vaccine, PRP-T conjugate [facility] Mariah WRAP [employer]URNER-MEDICAL STAFF PHYSICIAN Work Phone: [facility] 2005 hepatitis B vaccine, pediatric or pediatric/adolescent dosage Codi Lemus WR[employer]NER-MEDICAL STAFF PHYSICIAN Work Phone: [facility] 2005 poliovirus vaccine, inactivated Codi Lemus WR[employer]NER-MEDICAL STAFF PHYSICIAN Work Phone: [facility] 2005 poliovirus vaccine, unspecified formulation Codi Lemus WRAP [employer]NER-MEDICAL STAFF PHYSICIAN Work Phone: [facility] 2005 hepatitis B vaccine, pediatric or pediatric/adolescent dosage Codi Lemus [employer]-MEDICAL STAFF PHYSICIAN Work Phone: [facility] Payers Date Payer Category Payer Self-pay [id number] 2022 Unknown [id number] 2021 Unknown [id number] 2006 Medicaid [employer] [id number] 2006-Present [phone] [address] [place] [address] Medicaid [id number] 2006 Medicaid [id number] 2005 Unknown [id number] 2005 Unknown [id number] 2005 Unknown [id number] 2005 Unknown [id number] Unknown [employer] [id number] Unknown [id number] Unknown [id number] Unknown [id number] Unknown [id number] Unknown [id number] Unknown [id number] Unknown [id number] Unknown [id number] Unknown [id number] Social History Date Type Detail Facility Start: 07-04-2019 End: 06-27-2022 Tobacco smoking status NHIS Never smoked tobacco [facility] Work Phone: Start: 07-04-2019 End: 06-27-2022 Tobacco use and exposure Smokeless tobacco non-user [facility] Work Phone: Start: 2005 Sex Assigned At Not on file [facility] Start: 01-07-2022 End: 06-24-2022 Exposure to SARS-CoV-2 (event) Not sure [facility] History of tobacco use Passive smoker [facility] Start: 08-26-2022 End: 12-21-2023 Tobacco smoking status ILIS Unknown if ever smoked [facility] Start: 12-11-2020 None [facility] Start: 12-11-2020 With Family [facility] Start: 2005 Sex Assigned At Female [facility] Start: 10-15-2022 End: 09-07-2024 Alcohol intake Lifetime non-drinker (finding) [facility] Start: 10-15-2022 End: 03-10-2023 Alcohol intake [facility] Start: 10-15-2022 End: 03-10-2023 Tobacco use panel [facility] Adolescent depressio n screening assessment 7 [facility] Start: 01-20-2025 End: 02-05-2025 Tobacco smoking status NHIS Smokes tobacco daily (finding) [facility] NEGATED: Highlighted row [facility] Goals Date Patient Goal Desired Activity /State Functional Status Date Assessment Result Facility 07-20-2019 Are you deaf, or do you have serious difficulty hearing No 07/20/2019 2:00 AM EST No [facility] 07-20-2019 Are you blind, or do you have serious difficulty seeing, even when wearing glasses Yes 07/20/2019 2:00 AM EST Regla Mae RN Yes [facility] 07-20-2019 Do you have serious difficulty walking or climbing stairs Yes 07/20/2019 2:00 AM EST Yes [facility] 07-20-2019 Do you have difficul ty dressing or bathing No 07/20/2019 2:00 AM EST No [facility] 07-20-2019 Because of a physica l, mental, or emotional condition, do you have difficulty doing errands alone such as visiting a physician's office or shopping 07/20/2019 2:00 AM EST [facility] Mental Status Date Assessment Result Facility 12-24-2023 Cognitive function Voice/Name;Touch/Shaki ng [facility] Work Phone: 02-04-2023 Cognitive function Level Of Cons ciousness Awake;Alert;Appropriate;Fol lows Commands [facility] Work Phone: 11-18-2022 Cognitive function Voice/Name [facility] Work Phone: 07-20-2019 Because of a physica l, mental, or emotional condition, do you have serious difficulty concentrating, remembering, or making decisions Yes 07/20/2019 2:00 AM EST Yes [facility] Clinical Notes 01-17-2022 to 02-05-2025 Addendum Note - Jasmin Enriquez APRN.CELINE - 08/27/2024 1:23 PM ESTAddendum Note - Jasmin Enriquez APRN.CNP - 08/27/2024 1:23 PM ESTAnuragsanjuanaNasrin de la cruzGIOVANNY - 08/27/2024 1:03 PM EST Note Date & Type Note Facility 02-05-2025 Discharge summary [facility] 02-05-2025 Radiology Diagnostic study note [facility] Imaging Services [address] [place] [address] Abdomen/Pelvis W IV Cont ONLY MR#: [id number] Acct: [id number] Name: LUIS BARAJAS Rep #: [id number] : 2005 F 19 From: Lisette Henriquez MD PCP: Dr. Mitzy Fung MD Status: REG ER Study:Abdomen/Pelvis W IV Cont ONLY Date of E xam: 02/05/25 Exam# [id number] Ordering Dr: Arturo Hernandez MD PROCEDURE: ABDOMEN/PELVIS [...] patient's symptoms and urinalysis recommended. Reading Location: [facility] CC: Dr. Arturo Hernandez MD; Dr. Mitzy Fung MD ~ Rehab Tech: Signed [facility] 02-05-2025 Hospital Discharge instructions Additional Instructions Try taking MiraLAX to help with your constipation. Follow-up with Dr. Ruano regarding the thickened bladder wall on your CT scan. Return with new or worsening symptoms. Otherwise follow-up with your primary care provider in the next 3 to 5 days if not improving. [facility] Work Phone: 01-23-2025 Discharge summary [facility] 01-20-2025 Radiology Diagnostic study note [facility] Imaging Services [address] [place], [place] [address] CT Chest, Abd, Pel w/Contrast MR#: [id number] Acct: [id number] Name: LUIS BARAJAS Rep #: [id number] : 2005 F 19 From: Luanne Sharma MD PCP: Dr. Mtizy Fung MD Status: REG ER Study:CT Chest, Abd, Pel w/Contrast Date of E xam: 01/20/25 Exam# [id number] Ordering Dr: Javier Isabel DO PROCEDURE: CT [...] on series 2, image 66. Reading Location: [facility] CC: Dr. Javier Isabel DO; Dr. Mitzy Fung MD ~ Rehab Tech: Signed [facility] 08-27-2024 Note Addended by: JASMIN SAUCEDO on: 08/27/2024 01:23 PM Modules accepted: Orders [facility] 08-27-2024 Miscellaneous Notes Addended by: JASMIN ENRIQUEZ on: 08/27/2024 01:23 PM Modules accepted: Orders documented in this encounter [facility] 08-27-2024 Note HNO ID: [id number] Author: NASRIN VILLAVICENCIO LPN Service: ? Author Type: LICENSED NURSE Type: Progress Notes Filed: 08/27/2024 13:04 Note Text: 2.5 solution aerosol treatment given per provider's orders. Prior to treatment O2 sat is 97%. Treatment completed. O2 sat is 100%. Tolerated well. Nasrin Villavicencio LPN [facility] 08-27-2024 History of Present illness Narrative 2.5 [...] Discussed expected course of illness Jasmin Enriquez APRN.MEDICAL STAFF PHYSICIAN documented in this encounter [facility] 08-27-2024 Note HNO ID: [id number] Author: JASMIN ENRIQUEZ APRN.MEDICAL STAFF PHYSICIAN Service: ? Author Type: Nurse Practitioner Type: [...] as prescribed. 4. (more content not included)... [facility] 08-27-2024 Instructions Jasmin Enriquez, ALEX.MEDICAL STAFF PHYSICIAN - 08/27/2024 12:08 PM EST ASSESSMENT/PLAN: 1. [...] Discussed expected course of illness Jasmin Enriquez APRN.MEDICAL STAFF PHYSICIAN Previous hospitalization care team: Attending Provider: Ernestina Lanza MD (attending for admission) Consulting: Tirso Richey MD (ENT) Consulting: Jason Uriostegui MD (infectious disease) documented in this encounter [facility] 04-25-2024 Note HNO ID: [id number] Author: ERNESTINA LANZA MD Service: Hospital Medicine [...] PCOS, asthma, URIEL. Patient was transferred from [facility] hospital today for concerns of 2 [...] sore throat associated with dysphagia At the [place] ED CT neck with IV contrast showing [...] PIV CODE STA (more content not included)... [facility] 04-25-2024 Note HNO ID: [id number] Author: TIRSO RICHEY MD Service: Otolaryngology Author [...] with me as needed. Tirso Richey MD [facility] 01-26-2024 Note HNO ID: [id number] Author: MARTÍNEZ LYLES APRN.MEDICAL STAFF PHYSICIAN Service: ? Author Type: Nurse Practitioner Type: Progress Notes Filed: 01/26/2024 16:37 Note Text: This note was created using [employer]. Subjective Luis Barajas is a 18 year [...] Tylenol as needed for pain. Martínez Lyles APRN.[facility] 01-26-2024 History of Present illness Narrative This note was created using [employer]. Subjective Luis Barajas is a 18 year [...] Martínez Lyles APRN.CELINE documented in this encounter [facility] 12-29-2023 Note HNO ID: [id number] Author: JASMIN ENRIQUEZ APRN.MEDICAL STAFF PHYSICIAN Service: ? Author Type: Nurse Practitioner Type: [...] Discussed expected course of illness Jasmin Enriquez APRN.[facility] 12-29-2023 History of Present illness Narrative [...] Jasmin Enriquez APRN.CELINE documented in this encounter [facility] 12-29-2023 Instructions Jasmin Enriquez APRN.CELINE - 12/29/2023 [...] Discussed expected course of illness Jasmin Enriquez APRN.MEDICAL STAFF PHYSICIAN [facility] PATIENT INFO BLADDER INFECTION OVERVIEW [...] have an infection. documented in this encounter [facility] 12-24-2023 Procedure note [place] 11-14-2023 Discharge summary Note Date/Time November 14, 2023 1:42pm [facility] Medical Records Department [address] [place] [address] Emergency Department Summary 11/14/23 MR#: [id number] Acct: [id number] Name: LUIS BARAJAS Rep #:[id number] : 2005 18 From: Alexis Farfan MD [...] was seen 2 weeks ago at the [facility] urgent care diagnosed with urinary tract [...] similar symptoms: Yes Recent Illness/Hospitalization: Yes PFSH [facility] Medical History (Updated 11/14/23 @ [...] (Auto) 65.2 H Lymph % (Auto) 27.1 [place] % (Auto) 5.1 Eos % (Auto) 1.7 [...] Sl. Cloudy Urine pH 6.5 Ur Specific Brave 1.015 Urine Protein 30 H Urine Glucose [...] your Primary Care Provider. Call [facility] ([phone]) or report to the closest Emergency Room. Call 911 if necessary. 11/14/231817 <Electronically signed by Alexis Farfan MD> Cosigner Signature (if applicable): CC: Dr. Mitzy Fung MD ~ Signed [facility] Work Phone: 1(651) 786-116403-23-2024 NoteHNO ID: [id number] Author: LONI ESCOBAR APRN.CELINE Service: ? Author Type: Nurse Practitioner Type: Progress Notes Filed: 11/14/2023 12:51 Note Text: Complaints of severe right flank pain. Patient says she has passed 2 hard [place] objects through her urethra. Patient says she [...] evaluation mother was okay with this care plan.[facility]03-23-2024 History of Present illness Narrative* Loni Escobar APRN.CNP - 11/14/2023 12:50 PM EDT Complaints of severe right flank pain. Patient says she has passed 2 hard [place] objects throughher urethra. Patient says she feels [...] with this care plan. documented in this encounter[facility]03-[facility] Miscellaneous Notes* Telephone Encounter - Ariane Davis [...] is pending; continue nitrofurantoin. documented in this encounter[facility]03-08-2024 NoteHNO ID: [id number] Author: LILLIAN SANCHEZ APRN.MEDICAL STAFF PHYSICIAN Service: ? Author Type: Nurse Practitioner Type: Progress Notes Filed: 10/30/2023 16:18 Note Text: This note was created using [employer]. Subjective Luis Barajas is a 18 year [...] history is provided by the patient. No threading machine operator was used. UTI This is a new [...] soft. There is n (more content not included)...[facility]03-08-2024 History of Present illness Narrative* Lillian Sanchez APRN.MEDICAL STAFF PHYSICIAN - 10/30/2023 4:02 PM EST This note was created using [employer]. Subjective Luis Barajas is a 18 year [...] history is provided by the patient. No threading machine operator was used. UTI This is a new [...] for prevention given Obtained self swabs for prinec and BV - UA DIP, URINE (POC) - URINE CULTURE - PRINCE/TRICHOMONAS NAAT - BACTERIAL VAGINOSIS NAAT Lillian Sanchez APRN.MEDICAL STAFF PHYSICIAN documented in this encounterAs[facility]12-10-2023 Nurse Note* Brigette Rincon MA - 08/02/2023 11:02 AM EST Pt returned for a urine culture recheck, due to contamination. Brigette Rincon MA documented in this encounterAshtabula [facility]12-07-2023 Miscellaneous Notes* Telephone Encounter - Leta Raymundo LPN - 07/30/2023 7:24 PM EST Patient's mother given results and verbalized understanding of instructions given. Leta Raymundo LPN * Telephone Encounter - Lillian Sanchez APRN.MEDICAL STAFF PHYSICIAN - 07/30/2023 3:57 PM EST Please inform patient urine culture revealed mixed bacterial growth. If patient would like, can provide another urine specimen. I have placed an order . Would just need to represent to express care as nurse visit Patient should follow up with PCP for continued symptoms. documented in this encounterAshtabula [facility]12-05-2023 History of Present illness Narrative* Ivonne Dawson APRN.MEDICAL STAFF PHYSICIAN - 07/28/2023 7:07 PM EST SUBJECTIVE: Luis [...] CULTURE - CONSULT TO UROLOGY Ivonne Dawson APRN.MEDICAL STAFF PHYSICIAN documented in this encounterAshtabula [facility]04-07-[address] De La Torre [facility] November 28, 2022 6:52pm Note Date/Time November 28, 2022 3:09 pm [facility] Medical Records Department [address] [place] [id number] Emergency Department Summary 11/28/22 MR#: [id number] Acct: [id number] Name: LUIS BARAJAS Rep #:[id number] : 2005 17 From: Vishal De La [...] again today as advised by her operating autoclave operator Dr. Alfreda Clements. Patient took naproxen prior [...] pain restarted 2 hours prior to evaluation. [facility] Medical History (Updated 11/28/22 @ 18:46 [...] is also following up with gynecology specialist [facility]'s, I encouraged mom to keep that appointment. [...] % (Auto) 62.9 Lymph % (Auto) 29.3 [place] % (Auto) 5.6 Eos % (Auto) 1.5 [...] Sl. Cloudy Urine pH 8.0 Ur Specific Brave 1.015 Urine Protein Negative Urine Glucose (UA) [...] a Ruptured Ovarian Cyst, ED Mid-Cycle Pain ([place]chmerlaian) Prescriptions: No Action albuterol sulfate [Ventolin HFA] [...] Care Provider] - Doctor,Your [Non-Staff] - Keep [facility] appointment Disposition Disposition: Home, Self Care What to do if you have Problems For any increased pain, shortness of breath, bleeding, nausea or vomiting, chestpain, or any unexpected problems, contact your Primary Care Provider. Call [facility] ([phone]) or report to the closest Emergency Room. Call 911 if necessary. 11/28/22 1852 <Electronically signed by Vishal De La Torre MD> Cosigner Signature (if applicable): CC: Dr. Mitzy Fung MD; Dr. Mara Clements MD ~ Signed [facility] Work Phone: [phone]) 830-944103-28-2023 Procedure [facility] 11-18-2022 History and physical note Author Dr. Clements [facility] November 18, 2022 3:01am Note Date/Time November 18, 2022 12: 23am [facility] Medical Records Department [address] [place] [address] History & Physical Exam 11/18/22 0017 MR#: [id number] Acct: [id number] Name: LUIS BARAJAS Rep #:[id number] : 2005 17 From: Mara villegas MD PCP: Dr. Mitzy Fung MD Status:[facility] Location: [place] [address] HPI - General General Date of Service: [...] antibiotics for UTI diagnosed 2 weeks ago. [facility] Medical History ADHD Asthma Home [...] (Auto) 41.2, Lymph % (Auto) 50.2 H, [place] % (Auto) 6.4 H, Eos % (Auto) [...] 0:14 EDT Reading Location ID and State: [facility] / [place] Tel , Service support , Assessment & [...] Fung MD; Dr. Mara Clements MD~ Signed [facility] Work Phone: [phone]) 679-529601-03-2023 Miscellaneous Notes* Telephone Encounter - Nasrin Villavicencio [...] AM EST ----- Message from Jasmin Enriquez APRN.MEDICAL STAFF PHYSICIAN sent at 08/26/2022 7:21 AM EST ----- Please advise parent of Luis the COVID, flu, RSV test is negative. documented in this encounterAshtabula [facility] Center01-02-2023 History of Present illness Narrative* Moe Simons [...] ROUTINE Moe Simons MD documented in this encounterAshtabula [facility] Center11-02-2022 Miscellaneous Notes* Telephone Encounter - Stefany Olivo - 06/25/2022 11:14 AM EDT Patient given results and verbalized understanding of instructions given. Stefany Olivo * Telephone Encounter - Lillian Sanchez APRN.[facility] - 06/25/2022 10:02 AM EDT Patient tested positive for BV. Flagyl sent into [employer]. Please reach out and inform patient. This is not an STI. [facility] documented in this encounterAshtabula [facility] Center11-01-2022 History of Present illness Narrative* Gus Munroe [...] care. Gus Munroe APRN.CELINE documented in this encounterAshtabula County [facility] Center05-27-2022 History of Present illness Narrative* Gus Munroe [...] ICD10: R10.9 (primary diagnosis) - CONSULT TO PERFORMANCE IMPROVEMENT MANAGER 2. Acute sinusitis, recurrence not specified, unspecified location - ICD9: 461.9, ICD10: J01.90 Patient diagnosed with maxillary sinusitis. Patient was placed on amoxicillin. Will follow up with PCP for reevaluation 2 to 3 days symptoms are not improving. Additionally patient will be referred to PERFORMANCE IMPROVEMENT MANAGER. Patient states she has had ongoing suprapubic tenderness ever since she has been diagnosedwith a UTI this has been several months ago. Red flags for prompt reevaluation discussed. Will be seen in urgent care or ED for any new or worsening symptoms. Patient/mother verbalized understanding agrees with plan of care Gus Munroe APRN.MEDICAL STAFF PHYSICIAN documented in this encounterBuffalo [facility] ClinicD[facility] Author Dr. Clements [facility] November 18, 2022 3:17am Note Date/Time November 18, 2022 3:1 4am [facility] Medical Records Department [address] [place] [address] Instructions for Home/Discharge Instructions 11/18/22310 MR#: [id number] Acct: [id number] Name: LUIS BARAJAS Rep #:[id number] : 2005 17 From: Mara villegas MD PCP: Dr. Mitzy Fung MD Status:[facility] Discharge Instructions Diet Discharge Diet: No restrictions [...] Mara [place] MD When: Follow up with [facility] as scheduled or call [phone] Alfreda Clements Test [...] CC: Dr. Mitzy Fung MD ~ Signed [facility] Work Phone: Discharge summary Author Leny Ruano [facility] December 24, 2023 9:01am Note Date/Time December 24, 2023 9:01am [facility] Medical Records Department [address] [place] [address] Instructions for Home/Discharge Instructions 12/24/23 0900 MR#: [id number] Acct: [id number] Name: LUIS BARAJAS Rep #:[id number] : 2005 18 From: Leny Robison PCP: Dr. Mitzy Fung MD Status:[facility] Discharge Instructions Diet Discharge Diet: No restrictions [...] CC: Dr. Mitzy Fung MD ~ Signed [facility] Work Phone: Discharge summary Author Yaron Peralta [facility] Note Date/Time January 23, 2025 10:43 am [facility] Medical Records Department [address] [place] [address] Emergency Department Summary 01/23/25 MR#: [id number] Acct: [id number] Name: LUIS BARAJAS Rep #:[id number] : 2005 19 From: Yaron Peralta MD [...] Toradol. We do long discussion show follow-up withOB/DIET CONSULTANT for her endometriosis. She will follow-up with [...] Sl. Cloudy Urine pH 6.5 Ur Specific Brave 1.010 Urine Protein 15 H Urine Glucose [...] Counseling. Support groups. Follow-up with a local PERFORMANCE IMPROVEMENT MANAGER for your pelvic pain and endometriosis. Print Language: Chilean Disposition Disposition: Home, Self Care What to do if you have Problems For any increased pain, shortness of breath, bleeding, nausea or vomiting, chestpain, or any unexpected problems, contact your Primary Care Provider. Call [facility] ([phone]) or report to the closest Emergency Room. Call 911 if necessary. 01/23/25 1043 <Electronically signed by Yaron Peralta MD> Cosigner Signature (if applicable): CC: Dr. Mitzy Fung MD ~ Signed [facility] Work Phone: Discharge summary Author Arturo Hernandez [facility] Note Date/Time February 05, 2025 11:5 7am [facility] Medical Records Department [address] [place] [address] Emergency Department Summary 02/05/25 MR#: [id number] Acct: [id number] Name: LUIS BARAJAS Rep #:[id number] : 2005 19 From: Arturo Hernandez MD [...] to gas, butshe will also start MiraLAX gyxp-arq-esubugn. Follow-up with primary care. Return instructions reviewed. [...] % (Auto) 48.7 Lymph % (Auto) 40.5 [place] % (Auto) 6.3 Eos % (Auto) 3.4 [...] Clarity Clear Urine pH 7.0 Ur Specific Brave 1.005 Urine Protein 30 H Urine Glucose [...] patient's symptoms and urinalysis recommended. Reading Location: [id number] Discharge Plan Triage Chief Complaint: Constipation ED [...] 5 days if not improving. Print Language: Chilean Disposition Disposition: Home, Self Care What to do if you have Problems For any increased pain, shortness of breath, bleeding, nausea or vomiting, chestpain, or any unexpected problems, contact your Primary Care Provider. Call [facility] ([phone]) or report to the closest Emergency Room. Call 911 if necessary. 02/05/25 1157 <Electronically signed by Arturo Hernandez MD> Cosigner Signature (if applicable): CC: Dr. Mitzy Fung MD ~ Signed [facility] Work Phone: Evaluation note* Diagnosis Abdominal pain, unspecified abdominal location- Primary Acute sinusitis, recurrence not specified, unspecified location documented in this encounter [facility] note* Diagnosis Urinary frequency- Primary documented in this encounter [facility] noteNo assessment information availableWHenry County Hospital Work Phone: Evaluation note* Diagnosis Sore throat- Primary Acute pharyngitis Influenza-like illness Influenza with other respiratory manifestations documented in this encounter [facility] note* Diagnosis Onset Date Resolution Status Ovarian torsion acute [facility] Work Phone: Evaluation note* Diagnosis Hirsutism Irregular menses Irregular menstrual cycle [facility] Diagnosis Urinary frequency- Primary documented in this encounter [facility] note* Diagnosis Urinary frequency- Primary documented in this encounter [facility] note* Diagnosis Urinary frequency- Primary documented in this encounter [facility] note* Diagnosis Dysuria- Primary [facility] Diagnosis Pain in pelvis- Primary Flank pain Abdominal pain, unspecified site documented in this encounter [facility]* Diagnosis Burning with urination- Primary Dysuria Otalgia of right ear Otalgia, unspecified documented in this encounter [facility]* Diagnosis Ear pain, right- Primary Otalgia, unspecified [facility]* Diagnosis Sore throat- Primary Acute pharyngitis Pharyngitis, unspecified etiology Wheezing Viral URI with cough Acute upper respiratory infections of unspecified site Bronchitis Bronchitis, not specified as acute or chronic documented in this encounter [facility]* Diagnosis Weight loss Loss of weight Family history of type 2 diabetes mellitus Family history of diabetes mellitus documented in this encounter [facility] Discharge instructions Additional Instructions For your pelvic and endometriosis pain alternate Motrin and Tylenol. Ativan as needed for your anxiety. Do not drink alcohol or drive while taking it. Follow-up with the counseling center for your anxiety. Otherwise to help deal with anxiety. Read about it and learn about it. Exercise. Breathing techniques. Walking. Reading. Counseling. Support groups. Follow-up with a local PERFORMANCE IMPROVEMENT MANAGER for your pelvic pain and endometriosis.[facility] Work Phone: Reason for referral (narrative)No reason for referral information availableWHenry County Hospital Work Phone: Reason for Referral Specialty Diagnoses / Procedures Referred By Yamile seth Referred To Contact Diagnoses Abdominal pain, unspecified abdominal location Procedures CONSULT TO PERFORMANCE IMPROVEMENT MANAGER OFFICE/OUTPATIENT [facility] 60-74 MINUTES Gus Munroe, ALEX.MEDICAL STAFF PHYSICIAN [address] [place] [address] Referral ID Status Reason Start Date Expiration Date Visits Requested Visits Authorized [id number] Authorized PCP Requested Referral Auto-Generate d Referral 01/17/2022 01/17/2023 1 1 Specialty Diagnoses / Procedures Referred By Yamile seth Referred To Contact Urology Diagnoses Urinary frequency Procedures CONSULT TO UROLOGY OFFICE/OUTPATIENT [facility] 60-74 MINUTES Ivonne Dawson, WRAP TURNER.MEDICAL STAFF PHYSICIAN [address] [place] [address] Referral ID Status Reason Start Date Expiration Date Visits Requested Visits Authorized [id number] Authorized PCP Requested Referral 07/28/2023 07/27/2024 1 [...] No May 09, 2016 5:08pm Power of Welfare Visitor No April 5:08pm Advance Directive Response Recorded Date/ Time Living Will No May 09, 2016 6:08pm Power of Welfare Visitor No April 6:08pm Advance Directive Response Recorded Date/ Time Living Will No September 25 4:30am Power of Welfare Visitor No September 25, 2023 4:30am Advance Directive Response Recorded Date/ Time Living Will No November 14, 2023 2:18pm Power of Welfare Visitor No November 13 2:18pm Advance Directive Response Recorded Date/ Time Living Will No December 21, 2023 1:59pm Power of Welfare Visitor No December 20 1:59pm Date Activated Date Inactivated Comments 04/24/2024 9:55 AM 04/26/2024 3:43 PM Question Answer Comments Full Code Order Discussed With: Patient Advance Directive Response Recorded Date/ Time Do you have a Healthcare Power of Welfare Visitor? No January 20, 2025 3:51pm Advance Directive Response Recorded Date/ Time Do you have a Healthcare Power of Welfare Visitor? No January 20, 2025 3:51pm Do you have a Healthcare Power of Welfare Visitor? No January 23, 2025 9:37am Advance Directive Response Recorded Date/ Time Do you have a Healthcare Power of Welfare Visitor? No January 20, 2025 3:51pm Do you have a Healthcare Power of Welfare Visitor? No January 23, 2025 9:37am Do you have a Healthcare Power of Welfare Visitor? No February 05, 2025 9:55am Health Concerns [...] or prosecute any alcohol or drug abuse patient.[facility] the event this information is protected by the Federal Confidentiality of Alcohol and Drug Abuse Patient Records regulations: The Federal rules restrict any use of the information to criminally investigate or prosecute any alcohol or drug abuse patient.[facility] Center[facility] the event this information is protected by the Federal Confidentiality of Alcohol and Drug Abuse Patient Records regulations: The Federal rules restrict any use of the information to criminally investigate or prosecute any alcohol or drug abuse patient.[facility] Center[facility] the event this information is protected by the Federal Confidentiality of Alcohol and Drug Abuse Patient Records regulations: The Federal rules restrict any use of the information to criminally investigate or prosecute any alcohol or drug abuse patient.[facility] CenterIn the event this information is protected by the Federal Confidentiality of Alcohol and Drug Abuse Patient Records regulations: The Federal rules restrict any use of the information to criminally investigate or prosecute any alcohol or drug abuse patient.[facility] CenterIn the event this information is protected by the Federal Confidentiality of Alcohol and Drug Abuse Patient Records regulations: The Federal rules restrict any use of the information to criminally investigate or prosecute any alcohol or drug abuse patient.[facility] Center[facility] the event this information is protected by the Federal Confidentiality of Alcohol and Drug Abuse Patient Records regulations: The Federal rules restrict any use of the information to criminally investigate or prosecute any alcohol or drug abuse patient.[facility] CenterIn the event this information is protected by the Federal Confidentiality of Alcohol and Drug Abuse Patient Records regulations: The Federal rules restrict any use of the information to criminally investigate or prosecute any alcohol or drug abuse patient.[facility] CenterIn the event this information is protected by the Federal Confidentiality of Alcohol and Drug Abuse Patient Records regulations: The Federal rules restrict any use of the information to criminally investigate or prosecute any alcohol or drug abuse patient.[facility] CenterIn the event this information is protected by the Federal Confidentiality of Alcohol and Drug Abuse Patient Records regulations: The Federal rules restrict any use of the information to criminally investigate or prosecute any alcohol or drug abuse patient.[facility] CenterIn the event this information is protected by the Federal Confidentiality of Alcohol and Drug Abuse Patient Records regulations: The Federal rules restrict any use of the information to criminally investigate or prosecute any alcohol or drug abuse patient.[facility] CenterIn the event this information is protected by the Federal Confidentiality of Alcohol and Drug Abuse Patient Records regulations: The Federal rules restrict any use of the information to criminally investigate or prosecute any alcohol or drug abuse patient.[facility] CenterIn the event this information is protected by the Federal Confidentiality of Alcohol and Drug Abuse Patient Records regulations: The Federal rules restrict any use of the information to criminally investigate or prosecute any alcohol or drug abuse patient.[facility] CenterIn the event this information is protected by the Federal Confidentiality of Alcohol and Drug Abuse Patient Records regulations: The Federal rules restrict any use of the information to criminally investigate or prosecute any alcohol or drug abuse patient.[facility] Reason for Visit (unrecogniz ed section and [...] Care Teams (unrecognized sec tion and content) Clerk Supervisor Relationship Specialty Start Date End Date Cesar Rosenthal [facility] [address] [place] [address] PCP - General 06/03/06 Clerk Supervisor Relationship Specialty Start Date End Date [facility]ung [facility] [place] [address] PCP - General Pediatrics 06/24/22 Clerk Supervisor Relationship Specialty Start Date End Date [facility]ung [facility] [address] PCP - General Pediatrics 06/24/22 Team Status: [...] Dr. J Luis Wolfe MD Attending Provider, [facility] Active Team Status: Inactive [...] Dr. Mara Clements MD Attending Provider Active Clerk Supervisor Relationship Specialty Start Date End Date Mitzy Fung MD [address] [place] [address] PCP - General 07/19/19 Team Status: Inactive [...] MD Attending Provider, Refer ring Provider Active Clerk Supervisor Relationship Specialty Start Date End Date Mitzy Fung MD [address] [place], [place] [id number] PCP - General Pediatrics 06/24/22 Clerk Supervisor Relationship Specialty Start Date End Date Mitzy Fung MD [address] [place], [place] [address] PCP - General Pediatrics 06/24/22 Clerk Supervisor Relationship Specialty Start Date End Date Mitzy Fung MD [address] [place] [address] PCP - General Pediatrics 06/24/22 Team Status: Inactive Member Role Status Dates Dr. Mitzy Fung MD Primary Care Provider Active Dr. Levar Ackerman DO Emergency Provider Active Clerk Supervisor Relationship Specialty Start Date End Date Mitzy Fung MD [address] [place] [address] PCP - General Pediatrics 06/24/22 Clerk Supervisor Relationship Specialty Start Date End Date Mitzy Fung MD [address] [place], [place] [id number] PCP - General Pediatrics 06/24/22 Team Status: [...] MD Attending Provider, Referring P rovider Active Clerk Supervisor Relationship Specialty Start Date End Date Mitzy Fung MD [address] [place] [address] PCP - General Pediatrics 06/24/22 Clerk Supervisor Relationship Specialty Start Date End Date Mitzy Fung MD [address] [place] [address] PCP - General Pediatrics 06/24/22 Clerk Supervisor Relationship Specialty Start Date End Date Mitzy Fung MD [facility] [place] [address] PCP - General 07/19/19 Team Status: Active [...] section and content) DATE CREATED AUTHOR 04/26/2024 [facility] DATE CREATED AUTHOR AUTHOR'S ORGANIZ ATION 05/05/2024 [facility] ([facility]) DATE CREATED AUTHOR AUTHOR'S ORGANIZ ATION 09/03/2024 [facility] DATE CREATED AUTHOR AUTHOR'S ORGANIZ ATION 09/14/2024 [facility] DATE CREATED AUTHOR AUTHOR'S ORGANIZ ATION 02/13/2025 [facility] FOR RECORDS PERTAINING TO PATIENTS WHO [...] BE BASED ON THE PRIMARY CLINICAL RECORDS. [employer] provides no warranty or guarantee of the accuracy or completeness of information in this document.
[2025-02-21 02:26] LABS: Mucous, Urine 0 SEEN /hpf (<or=2+); Red Blood Cells-Urine 0 SEEN /hpf (0-5)
[2025-02-21 02:33] LABS: AST(SGOT) 21 U/L (<=31); Alanine Aminotransfer ALT/SGPT 8 U/L (<=34); Albumin, Serum 4.4 g/dL (3.5-5.0); Alkaline Phosphatase 55 U/L (35-104); Anion Gap 12 (5-15); BUN 13 mg/dL (4-19); BUN/Creat Ratio 13.6 RATIO (10-20); Calcium,Total 9.4 mg/dL (7.6-11.0); Carbon Dioxide 20.7 mmol/L (21.0-32.0); Chloride 105 mmol/L (98-108); Estimated Creatinine Clearance 84.02 ml/min (50-250); Globulin 2.5 g/dL (2.2-4.2); Glucose 90 mg/dL (70-99); Lipase 42 U/L (13-75); Potassium 4.0 mmol/L (3.3-5.1)
[2025-02-21 02:36] LABS: Color, Urine Yellow (Yellow); Glucose, Dipstick Normal (Normal); Ketone-Dipstick Negative (Negative); Leukocyte Esterase-Dipstick 25 /ul (Negative); Nitrite-Dipstick Negative (Negative); Occult Blood-Urine Negative /ul (Negative); Protein-Dipstick 15 mg/dl (Negative); Specific Gravity, Urine 1.020 (1.002-1.030); Urine Bilirubin Dipstick Negative (Negative)
[2025-02-21 02:43] LABS: Squamous Epithelial Cells - UA 5-10 SEEN /hpf (5-10)
[2025-02-21 03:00] VITALS: BP 106/89; PULSE 82; RESP 16; O2SAT 99
[2025-02-21 03:36] VITALS: BP 115/68; PULSE 74; RESP 16; TEMP 36.9; O2SAT 99
--- NOTE | 2025-02-21 03:38 | EDS_ITS ---
HPI History of Present Illness Chief Complaint: Abd Pain Informant: patient and parent Narrative Narrative: Patient is a 19-year-old female with past medical history of bipolar disorder and anxiety. She has been seen in the ER previously for abdominal pain and re portedly has endometriosis as well. The patient is waiting to follow-up with [facility]. The patient was seen in the last few weeks secondary to bouts of abdominal pain. She states at that time she had a CT scan that revealed no obvious findings and she was advised that symptoms could be related to constipation and to use a bowel regimen. Patient states she has been doing that but that there has been no improvement and secondary to worsening pain she presents for repeat evaluation. [facility] Medical History Wears glasses Bipolar disorder Anxiety Non-smoker PCOS (polycystic ovarian syndrome) Endometriosis determined by laparoscopy ADHD Asthma Home Medications ?Medication ?Instructions ?Recorded ?Last Taken ?Type d-mannose 1 cap PO DAILY 02/05/25 Unkn own History ondansetron 4 mg disintegrating 4 mg PO TID PRN nausea and 02/21/25 Unknown Rx tablet vomiting #21 tabs oxycodone-acetaminophen 5 mg-325 1 tab PO Q6H PRN pain 3 days #12 02/21/25 Unknown Rx mg tablet (Percocet) tabs Allergy/AdvReac Type Severity Reaction Status Date / Time Penicillins Allergy Swelling Verified 02/21/25 00:58 tree and shrub pollen Allergy Other Verified 02/21/25 00:58 Surgical History S/P laparoscopy Social History Smoking Status: Current every day smoker tobacco type: cigarettes and e- cigarettes alcohol intake: never substance use type: does not use ROS ROS ED Constitutional Constitutional ED: Denies chills or fever(s) ENT ENT ED: Denies sore throat Cardiovascular Cardiovascular: Denies chest pain Respiratory/Chest Respiratory/Chest: Denies cough or dyspnea Gastrointestinal Gastrointestinal: Reports abdominal pain and nausea; Denies diarrhea or vomiting Genitourinary Genitourinary ED: Denies dysuria, hematuria or urinary frequency Musculoskeletal Musculoskeletal: Denies back pain Integumentary Denies rash Neurologic Neurologic: Denies headache(s) Psychiatric Psychiatric: Reports anxiety Hematologic/Lymphatic Hematologic/Lymphatic: Denies easy bleeding or easy bruising EXAM Physical Exam Const Vital Signs: 02/21/25 00:58 02/21/25 02:00 02/21/25 03:00 Temperature 98.5 F Temperature Source Oral Pulse Rate 96 84 82 Respiratory Rate 20 H 18 16 Blood Pressure 133/89 H 133/46 H 106/89 H Blood Pressure Mean 103 75 94 Pulse Ox 99 100 99 Oxygen Delivery Method Room Air Room Air Room Air 02/21/25 03:36 Temperature 98.4 F Temperature Source Pulse Rate 74 Respiratory Rate 16 Blood Pressure 115/68 Blood Pressure Mean 83 Pulse Ox 99 Oxygen Delivery Method Positive well nourished and well developed General Appearance ED: well developed; Negative for pallor HEENT HEENT Narrative: Normocephalic atraumatic No tongue or lip swelling no oral lesions no airway edema or compromise No secondary findings in the posterior pharynx to suggest infection Eyes PERRL and EOMs intact bilaterally General Eye ED: Negative for scleral icterus Neck supple Resp normal respiratory effort and clear to auscultation bilaterally Cardio regular rate and regular rhythm Rate: other Other Details: Radial and carotid pulses are equal and symmetric GI non-distended and no masses GI Narrative: Abdomen is soft and nondistended with hypoactive bowel sounds. There is mild pain with palpation in the lower abdomen diffusely without voluntary guarding or rigidity. No pulsatile mass or fluid wave. No peritoneal signs. No organomegaly noted. Auscultation: hypoactive bowel sounds Palpation: soft Back/Spine Back/Spine Narrative: Mild right CVA pain present Extremity normal to inspection Neuro oriented x3, CN's II-XII intact bilaterally and no sensory deficits noted Sensorium / Orientation: alert Motor Exam: strength 5/5 throughout Psych Mood & Affect: anxious Skin no rashes or lesions noted and no wounds General Skin Exam: Negative for jaundice or pallor MDM MDM MDM Narrative Medical decision making narrative: Patient arrived to the ER slightly hypertensive but otherwise with stable vitals. She was seen roughly 2 weeks ago for similar event and had a CT scan. Her chart from the ER was reviewed and shows that her labs revealed no clinically significant findings and her CT scan showed a left corpus luteum cyst but otherwise no acute findings. With pain more on the right side there is concern for new onset cyst versus appendicitis versus kidney stone. As patient states that she has had a recent CT scan as well as ultrasound I do not feel the need for repeat imaging at this time based on her stable vitals and exam. However basic labs will be obtained to assess for potential pancreatitis versus developing infection such as UTI or for blood in the urine to suggest kidney stone or complication. Labs revealed no leukocytosis or left shift. Lipase is normal going against pancreatitis and test is negative going against complication. Urine sample shows no sign of blood going against kidney stone. There is +2 bacteria but no white blood cells and patient has moderate contamination with skin cells going against this is a true UTI and she does not have urinary symptoms and therefore I feel this is normal annabelle and contamination and will not place her on antibiotics. After receiving medication in the ER the patient reports resolution of her pain and her abdomen remains soft and nonsurgical. Therefore I do not feel there is need for emergent imaging studies but she can have a repeat transvaginal ultrasound obtained on an outpatient basis to further assess any cause of her symptoms History & Record Review Discussion w/independent historian: Patient and Family Lab Data Attestation: I reviewed the patient's lab results. Labs: Laboratory Results - last 24 hr 02/21/25 02/21/25 01:07 02:15 WBC 9.1 RBC 4.44 Hgb 12.7 Hct 37.5 MCV 84.5 MCH 28.6 MCHC 33.9 RDW Std Deviation 37.1 RDW Coeff of Ray 12.2 Plt Count 303 MPV 10.3 Immature Gran % (Auto) 0.200 Neut % (Auto) 55.8 Lymph % (Auto) 33.3 Borden % (Auto) 8.0 Eos % (Auto) 2.1 Baso % (Auto) 0.6 Absolute Neuts (auto) 5.1 Absolute Lymphs (auto) 3.01 Nucleated RBC % 0 Sodium 138 Potassium 4.0 Chloride 105 Carbon Dioxide 20.7 L Anion Gap 12 BUN 13 Creatinine 0.93 Estim Creat Clear Calc 84.02 Est GFR (MDRD) Non-Af 90 BUN/Creatinine Ratio 13.6 Glucose 90 Calcium 9.4 Total Bilirubin 0.62 AST 21 ALT 8 Alkaline Phosphatase 55 Total Protein 6.9 Albumin 4.4 Globulin 2.5 Albumin/Globulin Ratio 1.7 Lipase 42 Serum , Qual NEGATIVE Urine Color Yellow Urine Clarity Clear Urine pH 6.0 Ur Specific [place] 1.020 Urine Protein 15 H Urine Glucose (UA) Normal Urine Ketones Negative Urine Occult Blood Negative Urine Nitrite Negative Urine Bilirubin Negative Urine Urobilinogen Normal Ur Leukocyte Esterase 25 H Urine RBC 0 SEEN Urine WBC 0-5 SEEN Ur Squamous Epith Cells 5-10 SEEN Urine Bacteria 2+ Urine Mucus 0 SEEN Discharge Plan Triage Chief Complaint: Abd Pain ED Provider: Teodoro Garcia Dx/Rx/DC Orders Clinical Impression: Nonspecific abdominal pain, Bipolar disorder, Anxiety Instructions: Abdominal Pain, ED Pelvic Pain, Unknown Cause Prescriptions: New oxycodone-acetaminophen [Percocet] 5-325 mg tablet 1 tab PO Q6H PRN (Reason: pain) 3 Days Qty: 12 0RF ondansetron 4 mg tablet,disintegrating 4 mg PO TID PRN (Reason: nausea and vomiting) Qty: 21 0RF No Action d-mannose 1 cap PO DAILY Other Ambulatory Orders: Pelvic w/ Transvaginal (Routine) Facility: [facility] - Location: [facility] Ordered By: Dr. Teodoro Garcia Primary Care Provider: Mitzy Peterson Referrals: Mitzy Peterson MD [Primary Care Provider] - Dorothy Bryant MD [Med Staff - Active Staff] - Activity Restrictions/Additional Instructions: Please obtain your outpatient ultrasound to further assess any cause of your pelvic pain. Follow-up with [facility] for further evaluation and return to the ER should you have any further concerns Print Language: Ukrainian Disposition Disposition: Home, Self Care Discharge Date/Time: 02/21/25 03:50
== END 2025-02-21 03:50 | disposition home or self-care (01) ==
PROVIDERS: Emergency Provider Emergency Medicine; PCP Pediatrics; Visit Provider Emergency Medicine
DX: R10.9 Unspecified abdominal pain (principal); F31.9 Bipolar disorder, unspecified; F41.9 Anxiety disorder, unspecified; N80.9 Endometriosis, unspecified; J45.909 Unspecified asthma, uncomplicated; F17.210 Nicotine dependence, cigarettes, uncomplicated; F17.290 Nicotine dependence, other tobacco product, uncomplicated; N83.12 Corpus luteum cyst of left ovary
CPT/HCPCS: 80053; 81001; 83690; 84703; 85025; 96361; 96374; 96375; 99283; J2405

== ENCOUNTER → 2025-02-23 | Outpatient (CLI) | payer MEDICAID, SELFPAY | END | disposition home or self-care (01) | LOC: US 15:08 | PROVIDERS: PCP Pediatrics; Referring Provider Emergency Medicine; Visit Provider Emergency Medicine | DX: R10.9 Unspecified abdominal pain (principal); R10.2 Pelvic and perineal pain | CPT/HCPCS: 76830; 76856 ==

== ENCOUNTER → 2025-03-13 | Outpatient (CLI) | payer MEDICAID, SELFPAY ==
--- OUTSIDE RECORDS SUMMARY | 2025-03-13 21:23 | XMS RPT_ITS | CCD ---
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 syndrome) Endometriosis determined by laparoscopy ADHD Asthma Home Medications ???Medication ???Instructions ???Recorded ???Last Taken ???Type d-mannose 1 cap PO DAILY 02/05/25 Unknown Hi story ondansetron 4 mg disintegrating 4 mg PO TID PRN nausea and 5 Unknown Rx tablet vomiting #21 tabs oxycodone-acetamino phen 5 mg-325 1 tab PO Q6H PRN pain 3 days #12 0 02/21/25 Unknown Rx mg tablet (Percocet) tabs Allergy/AdvReac Type Severity Reaction Status Date / Time Penicillins Allergy Swelling Verified 02/21/25 00:58 tree and shrub pollen Allergy Other Verified 02/21/25 00:58 Surgical History S/P laparoscopy Social History Smoking Status: Current every day smoker tobacco type: cigarettes and e-cigarettes alcohol intake: never substance use type: does not use ROS ROS ED Constitutional Constitutional ED: Denies chills or fever(s) ENT ENT ED: Denies sore throat Cardiovascular Cardiovascular: Denies chest pain Respiratory/Chest Respiratory/Chest: Denies cough or dyspnea Gastrointestinal Gastrointestinal: Reports abdominal pain and nausea; Denies diarrhea or vomiting Genitourinary Genitourinary ED: Denies dysuria, hematuria or urinary frequency Musculoskeletal Musculoskeletal: Denies back pain Integumentary Denies rash Neurologic Neurologic: Denies headache(s) Psychiatric Psychiatric: Reports anxiety Hematologic/Lymphat ic Hematologic/Lymphat ic: Denies easy bleeding or easy bruising EXAM Physical Exam Const Vital Signs: 02/21/25 00:58 02/21/25 02:00 02/21/25 03:00 Temperature 98.5 F Temperature Source Oral Pulse Rate 96 84 82 Respiratory Rate 20 H 18 16 Blood Pressure 133/89 H 133/46 H 106/89 H Blood Pressure Mean 103 75 94 Pulse Ox 99 100 99 Oxygen Delivery Method Room Air Room Air Room Air 02/21/25 03:36 Temperature 98.4 F Temperature Source Pulse Rate 74 Respiratory Rate 16 Blood Pressure 115/68 Blood Pressure Mean 83 Pulse Ox 99 Oxygen Delivery Method Positive well nourished and well developed General Appearance ED: well developed; Negative for pallor HEENT HEENT Narrative: Normocephalic atraumatic No tongue or lip swelling no oral lesions no airway edema or compromise No secondary findings in the posterior pharynx to suggest infection Eyes PERRL and EOMs intact bilaterally General Eye ED: Negative for scleral icterus Neck supple Resp normal respiratory effort and clear to auscultation bilaterally Cardio regular rate and regular rhythm Rate: other Other Details: Radial and carotid pulses are equal and symmetric GI non-distended and no masses GI Narrative: Abdomen is soft and nondistended with hypoactive bowel sounds. There is mild pain with palpation in the lower abdomen diffusely without voluntary guarding or rigidity. No pulsatile mass or fluid wave. No peritoneal signs. No organomegaly noted. Auscultation: hypoactive bowel sounds Palpation: soft Back/Spine Back/Spine Narrative: Mild right CVA pain present Extremity normal to inspection Neuro oriented x3, CN's II-XII intact bilaterally and no sensory deficits noted Sensorium / Orientation: alert Motor Exam: strength 5/5 throughout Psych Mood Affect: anxious Skin no rashes or lesions noted and no wounds General Skin Exam: Negative for jaundice or pallor MDM MDM MDM Narrative Medical decision making narrative: Patient arrived to the ER slightly hypertensi (more content not included)... Normal [facility] Eosinophil percentageOrdered By: Teodoro Garcia on 02-21-2025 Eosinophils/100 WBC (Bld) 2.1 % 0-5 [facility] Erythrocyte distribution wid th ratioOrdered By: Teodoro Garcia on 02-21-2025 Erythrocyte distribution width (RBC) [Ratio] 12.2 % 11.6-14.6 [facility] Erythrocyte distribution wid th standard deviationOrdered By: Teodoro Garcia on 02-21-2025 Erythrocyte distribution width (RBC) [Ratio] 37.1 fl 35.1-43.9 [facility] Glomerular filtration rate ( GFR) estimation/1.73 sq m using serum, plasma, or whole bOrdered By: Teodoro Garcia on 02-21-2025 GFR/1.73 sq M.predicted among non-blacks MDRD (S/P/Bld) [Vol rate/Area] 90 mL/min/{1.73_m2} >60 [facility] Comment on above: mL/min/1.73m2 CKD-EP I Creatinine Equation (2020) Hematocrit Auto (Bld) [Volum e fraction]Ordered By: Teodoro Garcia on 02-21-2025 Hematocrit (Bld) [Volume fraction] 37.5 % 37-47 [facility] Hemoglobin measurementOrdere d By: Teodoro Garcia on 02-21-2025 Hemoglobin (Bld) [Mass/Vol] 12.7 g/dL 12.0-15.0 [facility] Immature granulocytes/100 WB C Auto (Bld)Ordered By: Teodoro Garcia on 02-21-2025 Immature granulocytes/100 WBC (Bld) 0.200 % 0.0-0.9 [facility] Comment on above: IG% - Immature Granu locytes (promyelocytes, myelocytes and metamyelocytes) > 1% indicates that a LEFT SHIFT is Present. Ketones Test strip Ql (U)Ord ered By: Teodoro Garcia on 02-21-2025 Ketones Ql (U) Negative Negative [facility] Laboratory - Chemistry and C hemistry - challengeOrdered By: Teodoro Garcia on 02-21-2025 AST [Catalytic activity/Vol] 21 U/L <32 [facility] Lipaseon 02-21-2025 Lipase [Catalytic activity/Vol] 42 U/L Normal 13-75 [facility] Comment on above: Result Comment: Antonio castro note: LIPASE revised reference range effective 22. New Lipase methodology. Expected to produce lower values than the previous assay method. NEW Reference Range: 13 - 75 U/L Performed By: #### L [id number] #### [facility] Laboratory [address] [place], [address] Lipase measurementOrdered By : Teodoro Garcia on 02-21-2025 Lipase [Catalytic activity/Vol] 42 U/L 13-75 [facility] Comment on above: Please note:LIPASE r evised reference range effective 22. New Lipase methodology. Expected to produce lower values than the previous assay method. NEW Reference Range: 13 - 75 U/L MCV (mean corpuscular volume ) determinationOrdered By: Teodoro Garcia on 02-21-2025 MCV (RBC) [Entitic vol] 84.5 fL 81-99 [facility] Mean corpuscular hemoglobin (MCH) determinationOrdered By: Teodoro Garcia on 02-21-2025 MCH (RBC) [Entitic mass] 28.6 pg 27.0-32.0 [facility] Mean corpuscular hemoglobin concentration (MCHC) determinationOrdered By: Teodoro Garcia on 02-21-2025 MCHC (RBC) [Mass/Vol] 33.9 g/dL 32-36 [facility] Mean platelet volume determi nationOrdered By: Teodoro Garcia on 02-21-2025 Platelet mean volume (Bld) [Entitic vol] 10.3 fL 6.2-12.0 [facility] Microscopic analysis of urin e for red blood cells (RBC)Ordered By: Teodoro Garcia on 02-21-2025 Microscopic analysis of urine for red blood cells (RBC) 0 SEEN /hpf 0-5 [facility] Monocyte percentageOrdered B y: Teodoro Garcia on 02-21-2025 Monocytes/100 WBC (Bld) 8.0 % 0-10 [facility] Mucus LM Ql (Urine sed)Order ed By: Teodoro Garcia on 02-21-2025 Mucus Ql (Urine sed) 0 SEEN /hpf [facility] Neutrophil percentageOrdered By: Teodoro Garcia on 02-21-2025 Neutrophils/100 WBC (Bld) 55.8 % 47-70 [facility] Nitrite Test strip Ql (U)Ord ered By: Teodoro Garcia on 02-21-2025 Nitrite Ql (U) Negative Negative [facility] Nucleated red blood cell per centageOrdered By: Teodoro Garcia on 02-21-2025 Nucleated RBC/100 WBC (Bld) [Ratio] 0 % 0-5 [facility] Platelet countOrdered By: Jess Garcia on 02-21-2025 Platelets (Bld) [#/Vol] 303 10*3/uL 150-450 [facility] Potassium measurement (mass/ volume)Ordered By: Teodoro Garcia on 02-21-2025 Potassium (Unsp spec) [Mass/Vol] 4.0 mmol/L 3.3-5.1 [facility] ,Serum,hCG Quali.on 02-21-2025 HCG, SERUM QUAL Negative Normal [facility] Comment on above: Performed By: #### L [id number] #### [facility] Laboratory [address] [place], [address] Protein Test strip Ql (U)Ord ered By: Teodoro Garcia on 02-21-2025 Protein Ql (U) 15 mg/dl High Negative [facility] RBC Auto (Bld) [#/Vol]Ordere d By: Teodoro Garcia on 02-21-2025 RBC (Bld) [#/Vol] 4.44 10*6/uL 4.2-5.4 [facility] Serum beta-hCG test, qualita tiveOrdered By: Teodoro Garcia on 02-21-2025 Beta HCG ( test) Ql Negative [facility] Serum creatinine measurement (mass/volume)Ordered By: Teodoro Garcia on 02-21-2025 Creatinine [Mass/Vol] 0.93 mg/dL 0.70-1.20 [facility] Serum globulin measurementOr dered By: Teodoro Garcia on 02-21-2025 Globulin (S) [Mass/Vol] 2.5 g/dL 2.2-4.2 [facility] Serum glucose measurement (m ass/volume)Ordered By: Teodoro Garcia on 02-21-2025 Glucose [Mass/Vol] 90 mg/dL 70-99 [facility] Serum or plasma alanine lowe otransferase (ALT) measurementOrdered By: Teodoro Garcia on 02-21-2025 ALT [Catalytic activity/Vol] 8 U/L <35 [facility] Serum or plasma albumin vel urement (mass/volume)Ordered By: Teodoro Garcia on 02-21-2025 Albumin [Mass/Vol] 4.4 g/dL 3.5-5.0 [facility] Serum or plasma albumin/glob ulin mass ratioOrdered By: Teodoro Garcia on 02-21-2025 Albumin/Globulin [Mass ratio] 1.7 {ratio} 0.9-2.4 [facility] Serum or plasma alkaline jeromy sphatase measurementOrdered By: Teodoro Garcia on 02-21-2025 ALP [Catalytic activity/Vol] 55 U/L 35-104 [facility] Serum or plasma calcium vel urement (mass/volume)Ordered By: Teodoro Garcia on 02-21-2025 Calcium [Mass/Vol] 9.4 mg/dL 7.6-11.0 [facility] Serum or plasma urea nitroge n measurement (mass/volume)Ordered By: Teodoro Garcia on 02-21-2025 Urea nitrogen [Mass/Vol] 13 mg/dL 4-19 [facility] Sodium levelOrdered By: Jeffrey Garcia on 02-21-2025 Sodium [Moles/Vol] 138 mmol/L 133-145 [facility] Squamous epithelial cells de tection in urine sediment by light microscopyOrdered By: Teodoro Garcia on 02-21-2025 Epithelial cells.squamous LM Ql (Urine sed) 5-10 SEEN /hpf 5-10 [facility] Total proteinOrdered By: Fran Garcia on 02-21-2025 Protein [Mass/Vol] 6.9 g/dL 5.9-8.4 [facility] Urinalysis, Completeon 02-21 BACTERIA 2+ /hpf Normal None Seen [facility] Comment on above: Order Comment: MAGGIE CTOR TO SPECIFY Performed By: #### L [id number] #### [facility] Laboratory [address] [place], [address] EPI,SQUAMOUS 5-10 SEEN Normal 5-10 [facility] Comment on above: Order Comment: MAGGIE CTOR TO SPECIFY Performed By: #### L [id number] #### [facility] Laboratory [address] [place], [address] WBC 0-5 SEEN Normal 0-5 [facility] Comment on above: Order Comment: MAGGIE CTOR TO SPECIFY Performed By: #### [id number] #### [facility] Laboratory [address] [place], [address] Mucus Ql (Urine sed) 0 SEEN Normal [facility] Comment on above: Order Comment: MAGGIE CTOR TO SPECIFY Performed By: #### L [id number] #### [facility] Laboratory [address] [place], [place], [id number] RBC 0 SEEN Normal 0-5 [facility] Comment on above: Order Comment: MAGGIE CTOR TO SPECIFY Performed By: #### [id number] #### [facility] Laboratory [address] [place], [place], [id number] Urine clarityOrdered By: Fran Garcia on 02-21-2025 Clarity (U) Clear Clear [facility] Urine color determinationOrd ered By: Teodoro Garcia on 02-21-2025 Color (U) Yellow Yellow [facility] Urine glucose detectionOrder ed By: Teodoro Garcia on 02-21-2025 Glucose Ql (U) Normal mg/dl Normal [facility] Urine leukocyte esterase det ection by dipstickOrdered By: Teodoro Garcia on 02-21-2025 Leukocyte esterase Test strip Ql (U) 25 /ul High Negative [facility] Urine pHOrdered By: Teodoro dunn on 02-21-2025 pH (U) 6.0 [pH] 5.0 - 8.0 [facility] Urine sediment bacteria coun t by microscopy (number/high power field)Ordered By: Teodoro Garcia on 02-21-2025 Bacteria LM.HPF (Urine sed) [#/Area] 2 /[HPF] None Seen [facility] Urine specific gravity measu rementOrdered By: Teodoro Garcia on 02-21-2025 Specific gravity (U) [Rel density] 1.020 1.002-1.030 [facility] Urine urobilinogen measureme ntOrdered By: Teodoro Garcia on 02-21-2025 Urobilinogen Ql (U) Normal mg/dl Normal [facility] White blood cell (WBC) count Ordered By: Teodoro Garcia on 02-21-2025 WBC (Bld) [#/Vol] 9.1 10*3/uL 4.4-11.0 [facility] White blood cell countOrdere d By: Teodoro Garcia on 02-21-2025 White blood cell count 0-5 SEEN /hpf 0-5 [facility] Abdomen/Pelvis W IV Cont ONL Yon 02-05-2025 Abdomen/Pelvis W IV Cont ONLY [facility] [address] [place], [place] [address] Abdomen/Pelvis W IV Cont ONLY MR#: [id number] Acct: [id number] Name: LUIS BARAJAS Rep #: [id number] : 2005 F 19 From: Tiny Coats nd, MD PCP: Dr. Mitzy Fung MD Status: REG ER Study: Abdomen/Pelvis W IV Cont ONLY Date of Exam: Exam# [id number] Ordering Dr: Arturo Hernandez MD PROCEDURE: ABDOMEN/PELVIS [...] patient's symptoms and urinalysis recommended. Reading Location: [id number] CC: Dr. Arturo Hernandez MD; Dr. Mitzy Fung MD Remarketing Rep: Signed Normal [facility] Absolute lymphocyte countOrd ered By: Arturo Hernandez on 02-05-2025 Lymphocytes Auto (Unsp spec) [#/Vol] 2.89 10*3/uL 0.83-4.51 [facility] Absolute neutrophil countOrd ered By: Arturo Hernandez on 02-05-2025 Neutrophils (Bld) [#/Vol] 3.5 10*3/uL 2.0-7.7 [facility] Anion gap in Serum or Plasma Ordered By: Arturo Hernandez on 02-05-2025 Anion gap [Moles/Vol] 14 mmol/L 01-05 [facility] Automated lymphocyte count a s percentage of total leukocytesOrdered By: Arturo Hernandez on 02-05-2025 Lymphocytes/100 WBC Auto (Unsp spec) 40.5 % [facility] BUN/creatinine ratioOrdered By: Arturo Hernandez on 02-05-2025 Urea nitrogen/Creatinine [Mass ratio] 11.9 mg/mg - [facility] Basophil percentageOrdered B y: Arturo Hernandez on 02-05-2025 Basophils/100 WBC (Bld) 1.0 % 0-1 [facility] Bilirubin Test strip Ql (U)O rdered By: Arturo Hernandez on 02-05-2025 Bilirubin Ql (U) Negative Negative [facility] Bilirubin, totalOrdered By: Arturo Hernandez on 02-05-2025 Bilirubin [Mass/Vol] 0.66 mg/dL 0.00-1.30 [facility] CBC W/Diff, Automatedon 01-22 Absolute Lymph 2.89 X10 3/uL Normal 0.83-4.51 [facility] Comment on above: Performed By: #### L [id number] #### [facility] Laboratory [address] [place], [address] Absolute Neut 3.5 X10 3/uL Normal 2.0-7.7 [facility] Comment on above: Performed By: #### L [id number] #### [facility] Laboratory [address] [place], [address] Basophils/100 WBC (Bld) 1.0 % Normal 0-1 [facility] Comment on above: Performed By: #### L [id number] #### [facility] Laboratory [address] [place], [address] Eosinophils/100 WBC (Bld) 3.4 % Normal 0-5 [facility] Comment on above: Performed By: #### L [id number] #### [facility] Laboratory [address] [place], [address] Erythrocyte distribution width (RBC) [Ratio] 11.8 % Normal 11.6-14.6 [facility] Comment on above: Performed By: #### L [id number] #### [facility] Laboratory [address] [place], [address] Hematocrit (Bld) [Volume fraction] 41.4 % Normal 37-47 [facility] Comment on above: Performed By: #### L [id number] #### [facility] Laboratory [address] [place], [address] Hemoglobin (Bld) [Mass/Vol] 13.9 g/dL Normal 12.0-15.0 [facility] Comment on above: Performed By: #### L [id number] #### [facility] Laboratory [address] [place], [address] IG% 0.100 Normal 0.0-0.9 [facility] Comment on above: Result Comment: IG% - Immature Granulocytes (promyelocytes, myelocytes and metamyelocytes) > 1% indicates that a LEFT SHIFT is Present. Performed By: #### L [id number] #### [facility] Laboratory [address] [place], [address] Lymphocytes/100 WBC (Bld) 40.5 % Normal 19-41 [facility] Comment on above: Performed By: #### L [id number] #### [facility] Laboratory [address] [place], [address] MCH (RBC) [Entitic mass] 28.6 pg Normal 27.0-32.0 [facility] Comment on above: Performed By: #### [id number] #### [facility] Laboratory [address] [place], [address] MCHC (RBC) [Mass/Vol] 33.6 g/dL Normal 32-36 [facility] Comment on above: Performed By: #### [id number] #### [facility] Laboratory [address] [place], [address] MCV (RBC) [Entitic vol] 85.2 fL Normal 81-99 [facility] Comment on above: Performed By: #### L [id number] #### [facility] Laboratory [address] [place], [address] Monocytes/100 WBC (Bld) 6.3 % Normal 0-10 [facility] Comment on above: Performed By: #### [id number] #### [facility] Laboratory [address] [facility] [address] [facility] [place], [address] Neutrophils/100 WBC (Bld) 48.7 % Normal 47-70 [facility] Comment on above: Performed By: #### L [id number] #### [facility] Laboratory [address] [place], [address] Nucleated RBC (Bld) [#/Vol] 0 10*3/uL Normal 0-5 [facility] Comment on above: Performed By: #### L [id number] #### [facility] Laboratory [address] [place], [address] Platelet mean volume (Bld) [Entitic vol] 9.8 fL Normal 6.2-12.0 [facility] Comment on above: Performed By: #### L [id number] #### [facility] Laboratory [address] [place], [address] Platelets (Bld) [#/Vol] 341 10*3/uL Normal 150-450 [facility] Comment on above: Performed By: #### L [id number] #### [facility] Laboratory [address] [place], [address] RBC (Bld) [#/Vol] 4.86 10*6/uL Normal 4.2-5.4 [facility] Comment on above: Performed By: #### L [id number] #### [facility] Laboratory [address] [place], [address] RDW SD 36.2 fl Normal 35.1-43.9 [facility] Comment on above: Performed By: #### L [id number] #### [facility] Laboratory [address] [place], [address] WBC (Bld) [#/Vol] 7.1 10*3/uL Normal 4.4-11.0 [facility] Comment on above: Performed By: #### L [id number] #### [facility] Laboratory [address] [place], [address] Carbon dioxide, total [Moles /volume] in Central venous bloodOrdered By: Arturo Hernandez on 02-05-2025 CO2 [Moles/Vol] 20.8 mmol/L Low 21.0-32.0 [facility] Chloride assayOrdered By: Preston Hernandez on 02-05-2025 Chloride [Moles/Vol] 107 mmol/L 98-108 [facility] Comprehensive Metabolic Prof ilon 02-05-2025 Albumin [Mass/Vol] 4.8 g/dL Normal 3.5-5.0 [facility] Comment on above: Performed By: #### L 400.0001 #### [facility] [address] [place], [address] Albumin/Globulin [Mass ratio] 1.7 {ratio} Normal 0.9-2.4 [facility] Comment on above: Performed By: #### L 400.0001 #### [facility] [address] [place], [address] ALK PHOS 59 U/L Normal 35-104 [facility] Comment on above: Performed By: #### L 400.0001 #### [facility] [address] [place], [address] ALT [Catalytic activity/Vol] 15 U/L Normal <=34 [facility] Comment on above: Performed By: #### L 400.0001 #### [facility] [address] [place], [address] AST [Catalytic activity/Vol] 23 U/L Normal <=31 [facility] Comment on above: Performed By: #### L 400.0001 #### [facility] [address] [place], [address] Bilirubin [Mass/Vol] 0.66 mg/dL Normal 0.00-1.30 [facility] Comment on above: Performed By: #### L 400.0001 #### [facility] [address] [place], [address] BUN/CRE 11.9 RATIO Normal 10-20 [facility] Comment on above: Performed By: #### L [id number] #### [facility] [address] [place], [address] Calcium [Mass/Vol] 9.9 mg/dL Normal 7.6-11.0 [facility] Comment on above: Performed By: #### L [id number] #### [facility] [address] [place], [address] Chloride [Moles/Vol] 107 mmol/L Normal 98-108 [facility] Comment on above: Performed By: #### L 400.0001 #### [facility] [address] [place], [address] CO2 [Moles/Vol] 20.8 mmol/L Low 21.0-32.0 [facility] Comment on above: Performed By: #### L 400.0001 #### [facility] [address] [place], [address] Creatinine [Mass/Vol] 0.91 mg/dL Normal 0.70-1.20 [facility] Comment on above: Performed By: #### L 400.0001 #### [facility] [address] [place], [address] ECRCL 85.87 ml/min Normal 50-250 [facility] Comment on above: Performed By: #### L [id number] #### [facility] [address] [place], [address] GAP 14 Normal 5-15 [facility] Comment on above: Performed By: #### L [id number] #### [facility] [address] [place], [address] GFR/1.73 sq M.predicted among non-blacks MDRD (S/P/Bld) [Vol rate/Area] 93 mL/min/{1.73_m2} Normal >60 [facility] Comment on above: Result Comment: mL/m in/1.73m2 CKD-EPI Creatinine Equation (2020) Performed By: #### L [id number] #### [facility] [address] [place], [address] Globulin (S) [Mass/Vol] 2.9 g/dL Normal 2.2-4.2 [facility] Comment on above: Performed By: #### L [id number] #### [facility] [address] [place], [address] Glucose [Mass/Vol] 92 mg/dL Normal 70-99 [facility] Comment on above: Performed By: #### L [id number] #### [facility] [address] [place], [address] Potassium [Moles/Vol] 3.8 mmol/L Normal 3.3-5.1 [facility] Comment on above: Performed By: #### L [id number] #### [facility] [address] [place], [address] Sodium [Moles/Vol] 142 mmol/L Normal 133-145 [facility] Comment on above: Performed By: #### L [id number] #### [facility] [address] [place], [address] T PROT 7.7 g/dL Normal 5.9-8.4 [facility] Comment on above: Performed By: #### L [id number] #### [facility] [address] [place], [address] Urea nitrogen [Mass/Vol] 11 mg/dL Normal 4-19 [facility] Comment on above: Performed By: #### L [id number] #### [facility] [address] [place], [address] Emergency Department Summary on 02-05-2025 Emergency Department Summary [facility] Medical Records Department [address] [place] [address] Emergency Department Summary 02/05/25 MR#: [id number] Acct: [id number] Name: LUIS BARAJAS Rep #: [id number] : 2005 19 From: Arturo Hernandez MD [...] quadrant abdominal pain. No fevers or chills. [facility] Medical History Wears glasses Bipolar disorder Anxiety [...] gas, but she will also start MiraLAX [id number]. Follow-up with primary care. Return instructions reviewed. Disposition is discharged home in stable condition. History Record Review Discussion w/independent historian: Patient and Family (Mother) Additional record(s) reviewed:: Prior ED visit and Prior labs Lab Data Attestation: I reviewed the patient's lab results. Labs: Laboratory Resul (more content not included)... Normal [facility] Eosinophil percentageOrdered By: Arturo Hernandez on 02-05-2025 Eosinophils/100 WBC (Bld) 3.4 % 0-5 [facility] Erythrocyte distribution wid th ratioOrdered By: Arturo Hernandez on 02-05-2025 Erythrocyte distribution width (RBC) [Ratio] 11.8 % 11.6-14.6 [facility] Erythrocyte distribution wid th standard deviationOrdered By: Arturo Hernandez on 02-05-2025 Erythrocyte distribution width (RBC) [Ratio] 36.2 fl 35.1-43.9 [facility] Glomerular filtration rate ( GFR) estimation/1.73 sq m using serum, plasma, or whole bOrdered By: Arturo Hernandez on 02-05-2025 GFR/1.73 sq M.predicted among non-blacks MDRD (S/P/Bld) [Vol rate/Area] 93 mL/min/{1.73_m2} >60 [facility] Comment on above: mL/min/1.73m2 CKD-EP I Creatinine Equation (2020) Hematocrit Auto (Bld) [Volum e fraction]Ordered By: Arturo Hernandez on 02-05-2025 Hematocrit (Bld) [Volume fraction] 41.4 % 37-47 [facility] Hemoglobin measurementOrdere d By: Arturo Hernandez on 02-05-2025 Hemoglobin (Bld) [Mass/Vol] 13.9 g/dL 12.0-15.0 [facility] Immature granulocytes/100 WB C Auto (Bld)Ordered By: Arturo Hernandez on 02-05-2025 Immature granulocytes/100 WBC (Bld) 0.100 % 0.0-0.9 [facility] Comment on above: IG% - Immature Granu locytes (promyelocytes, myelocytes and metamyelocytes) > 1% indicates that a LEFT SHIFT is Present. Ketones Test strip Ql (U)Ord ered By: Arturo Hernandez on 02-05-2025 Ketones Ql (U) Negative Negative [facility] Laboratory - Chemistry and C hemistry - challengeOrdered By: Arturo Hernandez on 02-05-2025 AST [Catalytic activity/Vol] 23 U/L <32 [facility] Lipaseon 02-05-2025 Lipase [Catalytic activity/Vol] 30 U/L Normal 13-75 [facility] Comment on above: Result Comment: Antonio castro note: LIPASE revised reference range effective 22. New Lipase methodology. Expected to produce lower values than the previous assay method. NEW Reference Range: 13 - 75 U/L Performed By: #### L [id number] #### [facility] [address], [address] Lipase measurementOrdered By : Arturo Hernandez on 02-05-2025 Lipase [Catalytic activity/Vol] 30 U/L 13-75 [facility] Comment on above: Please note:LIPASE r evised reference range effective 22. New Lipase methodology. Expected to produce lower values than the previous assay method. NEW Reference Range: 13 - 75 U/L MCV (mean corpuscular volume ) determinationOrdered By: Arturo Hernandez on 02-05-2025 MCV (RBC) [Entitic vol] 85.2 fL 81-99 [facility] Mean corpuscular hemoglobin (MCH) determinationOrdered By: Arturo Hernandez on 02-05-2025 MCH (RBC) [Entitic mass] 28.6 pg 27.0-32.0 [facility] Mean corpuscular hemoglobin concentration (MCHC) determinationOrdered By: Arturo Hernandez on 02-05-2025 MCHC (RBC) [Mass/Vol] 33.6 g/dL 32-36 [facility] Mean platelet volume determi nationOrdered By: Arturo Hernandez on 02-05-2025 Platelet mean volume (Bld) [Entitic vol] 9.8 fL 6.2-12.0 [facility] Microscopic analysis of urin e for red blood cells (RBC)Ordered By: Arturo Hernandez on 02-05-2025 Microscopic analysis of urine for red blood cells (RBC) 0 SEEN /hpf 0-5 [facility] Monocyte percentageOrdered B y: Arturo Hernandez on 02-05-2025 Monocytes/100 WBC (Bld) 6.3 % 0-10 [facility] Mucus LM Ql (Urine sed)Order ed By: Arturo Hernandez on 02-05-2025 Mucus Ql (Urine sed) 0 SEEN /hpf [facility] Neutrophil percentageOrdered By: Arturo Hernandez on 02-05-2025 Neutrophils/100 WBC (Bld) 48.7 % 47-70 [facility] Nitrite Test strip Ql (U)Ord ered By: Arturo Hernandez on 02-05-2025 Nitrite Ql (U) Negative Negative [facility] Nucleated red blood cell per centageOrdered By: Arturo Hernandez on 02-05-2025 Nucleated RBC/100 WBC (Bld) [Ratio] 0 % 0-5 [facility] Platelet countOrdered By: Preston Hernandez on 02-05-2025 Platelets (Bld) [#/Vol] 341 10*3/uL 150-450 [facility] Potassium measurement (mass/ volume)Ordered By: Arturo Hernandez on 02-05-2025 Potassium (Unsp spec) [Mass/Vol] 3.8 mmol/L 3.3-5.1 [facility] ,Serum,hCG Quali.on 02-05-2025 HCG, SERUM QUAL Negative Normal [facility] Comment on above: Performed By: #### L [id number] #### [facility] [address] [place], [address] Protein Test strip Ql (U)Ord ered By: Arturo Hernandez on 02-05-2025 Protein Ql (U) 30 mg/dl High Negative [facility] RBC Auto (Bld) [#/Vol]Ordere d By: Arturo Hernandez on 02-05-2025 RBC (Bld) [#/Vol] 4.86 10*6/uL 4.2-5.4 [facility] Serum beta-hCG test, qualita tiveOrdered By: Arturo Hernandez on 02-05-2025 Beta HCG ( test) Ql Negative [facility] Serum creatinine measurement (mass/volume)Ordered By: Arturo Hernandez on 02-05-2025 Creatinine [Mass/Vol] 0.91 mg/dL 0.70-1.20 [facility] Serum globulin measurementOr dered By: Arturo Hernandez on 02-05-2025 Globulin (S) [Mass/Vol] 2.9 g/dL 2.2-4.2 [facility] Serum glucose measurement (m ass/volume)Ordered By: Arturo Hernandez on 02-05-2025 Glucose [Mass/Vol] 92 mg/dL 70-99 [facility] Serum or plasma alanine lowe otransferase (ALT) measurementOrdered By: Arturo Hernandez on 02-05-2025 ALT [Catalytic activity/Vol] 15 U/L <35 [facility] Serum or plasma albumin vel urement (mass/volume)Ordered By: Arturo Hernandez on 02-05-2025 Albumin [Mass/Vol] 4.8 g/dL 3.5-5.0 [facility] Serum or plasma albumin/glob ulin mass ratioOrdered By: Arturo Hernandez on 02-05-2025 Albumin/Globulin [Mass ratio] 1.7 {ratio} 0.9-2.4 [facility] Serum or plasma alkaline jeromy sphatase measurementOrdered By: Arturo Hernandez on 02-05-2025 ALP [Catalytic activity/Vol] 59 U/L 35-104 [facility] Serum or plasma calcium vel urement (mass/volume)Ordered By: Arturo Hernandez on 02-05-2025 Calcium [Mass/Vol] 9.9 mg/dL 7.6-11.0 [facility] Serum or plasma urea nitroge n measurement (mass/volume)Ordered By: Arturo Hernandez on 02-05-2025 Urea nitrogen [Mass/Vol] 11 mg/dL 4-19 [facility] Sodium levelOrdered By: Arturo Hernandez on 02-05-2025 Sodium [Moles/Vol] 142 mmol/L 133-145 [facility] Squamous epithelial cells de tection in urine sediment by light microscopyOrdered By: Arturo Hernandez on 02-05-2025 Epithelial cells.squamous LM Ql (Urine sed) 0-5 SEEN /hpf - [facility] Total proteinOrdered By: Anabella Hernandez on 02-05-2025 Protein [Mass/Vol] 7.7 g/dL 5.9-8.4 [facility] Urinalysis, Completeon 02-05 EPI,SQUAMOUS 0-5 SEEN Normal - [facility] Comment on above: Order Comment: CLEAN CATCH Performed By: #### L [id number] #### [facility] [address] [place], [place], [id number] BACTERIA 0 SEEN Normal None Seen [facility] Comment on above: Order Comment: CLEAN CATCH Performed By: #### L [id number] #### [facility] [address] [place], [address] Mucus Ql (Urine sed) 0 SEEN Normal [facility] Comment on above: Order Comment: CLEAN CATCH Performed By: #### L [id number] #### [facility] [address] [place], [place], [id number] RBC 0 SEEN Normal 0-5 [facility] Comment on above: Order Comment: CLEAN CATCH Performed By: #### L [id number] #### [facility] [address] [place], [place], [id number] WBC 0 SEEN Normal 0-5 [facility] Comment on above: Order Comment: CLEAN CATCH Performed By: #### L [id number] #### [facility] [address] [place], [place], [id number] Urine clarityOrdered By: Anabella Hernandez on 02-05-2025 Clarity (U) Clear Clear [facility] Urine color determinationOrd ered By: Arturo Hernandez on 02-05-2025 Color (U) Yellow Yellow [facility] Urine glucose detectionOrder ed By: Arturo Hernandez on 02-05-2025 Glucose Ql (U) Normal mg/dl Normal [facility] Urine leukocyte esterase det ection by dipstickOrdered By: Arturo Hernandez on 02-05-2025 Leukocyte esterase Test strip Ql (U) Negative Negative [facility] Urine pHOrdered By: Arturo grace on 02-05-2025 pH (U) 7.0 [pH] 5.0 - 8.0 [facility] Urine sediment bacteria coun t by microscopy (number/high power field)Ordered By: Arturo Hernandez on 02-05-2025 Bacteria LM.HPF (Urine sed) [#/Area] 0 /[HPF] None Seen [facility] Urine specific gravity measu rementOrdered By: Arturo Hernandez on 02-05-2025 Specific gravity (U) [Rel density] 1.005 1.002-1.030 [facility] Urine urobilinogen measureme ntOrdered By: Arturo Hernandez on 02-05-2025 Urobilinogen Ql (U) Normal mg/dl Normal [facility] White blood cell (WBC) count Ordered By: Arturo Hernandez on 02-05-2025 WBC (Bld) [#/Vol] 7.1 10*3/uL 4.4-11.0 [facility] White blood cell countOrdere d By: Arturo Madonnabee on 02-05-2025 White blood cell count 0 SEEN /hpf 0-5 [facility] Bilirubin Test strip Ql (U)O rdered By: Yaron Peralta on 01-23-2025 Bilirubin Ql (U) Negative Negative [facility] Emergency Department Summary on 01-23-2025 Emergency Department Summary [facility] Medical Records Department [address] [place] [address] Emergency Department Summary 01/23/25 MR#: [id number] Acct: [id number] Name: LUIS BARAJAS Rep #: [id number] : 2005 19 From: Yaron Peralta MD [...] Appearance ED (more content not included)... Normal [facility] Ketones Test strip Ql (U)Ord ered By: Yaron Peralta on 01-23-2025 Ketones Ql (U) Negative Negative [facility] Microscopic analysis of urin e for red blood cells (RBC)Ordered By: Yaron Peralta on 01-23-2025 Microscopic analysis of urine for red blood cells (RBC) 0-5 SEEN /hpf 0-5 [facility] Mucus LM Ql (Urine sed)Order ed By: Yaron Peralta on 01-23-2025 Mucus Ql (Urine sed) 0 SEEN /hpf [facility] Nitrite Test strip Ql (U)Ord ered By: Yaron Peralta on 01-23-2025 Nitrite Ql (U) Negative Negative [facility] ,Serum,hCG Quali.on 01-23-2025 HCG, SERUM QUAL Negative Normal [facility] Comment on above: Performed By: #### L [id number] #### [facility] [address] [place], [place] [address] [place], [address] Protein Test strip Ql (U)Ord ered By: Yaron Peralta on 01-23-2025 Protein Ql (U) 15 mg/dl High Negative [facility] Serum beta-hCG test, qualita tiveOrdered By: Yaron Peralta on 01-23-2025 Beta HCG ( test) Ql Negative [facility] Squamous epithelial cells de tection in urine sediment by light microscopyOrdered By: Yaron Peralta on 01-23-2025 Epithelial cells.squamous LM Ql (Urine sed) 0-5 SEEN /hpf 5-10 [facility] Urinalysis, Completeon 01-23 BACTERIA 1+ /hpf Normal None Seen [facility] Comment on above: Order Comment: CLEAN CATCH Performed By: #### L [id number] #### [facility] [address] [place], [address] EPI,SQUAMOUS 0-5 SEEN Normal 5-10 [facility] Comment on above: Order Comment: CLEAN CATCH Performed By: #### L [id number] #### [facility] [address] [place], [address] RBC 0-5 SEEN Normal 0-5 [facility] Comment on above: Order Comment: CLEAN CATCH Performed By: #### L [id number] #### [facility] [address] [place], [address] WBC 0-5 SEEN Normal 0-5 [facility] Comment on above: Order Comment: CLEAN CATCH Performed By: #### L [id number] #### [facility] [address] [place], [address] Mucus Ql (Urine sed) 0 SEEN Normal [facility] Comment on above: Order Comment: CLEAN CATCH Performed By: #### L [id number] #### [facility] [address] [place], [address] Urine clarityOrdered By: Lele Peralta on 01-23-2025 Clarity (U) Sl. Cloudy Clear [facility] Urine color determinationOrd ered By: Yaron Peralta on 01-23-2025 Color (U) Yellow Yellow [facility] Urine glucose detectionOrder ed By: Yaron Peralta on 01-23-2025 Glucose Ql (U) Normal mg/dl Normal [facility] Urine leukocyte esterase det ection by dipstickOrdered By: Yaron Peralta on 01-23-2025 Leukocyte esterase Test strip Ql (U) 25 /ul High Negative [facility] Urine pHOrdered By: Yaron robins on 01-23-2025 pH (U) 6.5 [pH] 5.0 - 8.0 [facility] Urine sediment bacteria coun t by microscopy (number/high power field)Ordered By: Yaron Peralta on 01-23-2025 Bacteria LM.HPF (Urine sed) [#/Area] 1 /[HPF] None Seen [facility] Urine specific gravity measu rementOrdered By: Yaron Peralta on 01-23-2025 Specific gravity (U) [Rel density] 1.010 1.002-1.030 [facility] Urine urobilinogen measureme ntOrdered By: Yaron Peralta on 01-23-2025 Urobilinogen Ql (U) Normal mg/dl Normal [facility] White blood cell countOrdere d By: Yaron Peralta on 01-23-2025 White blood cell count 0-5 SEEN /hpf 0-5 [facility] Absolute lymphocyte countOrd ered By: Javier Isabel on 01-20-2025 Lymphocytes Auto (Unsp spec) [#/Vol] 3.05 10*3/uL 0.83-4.51 [facility] Absolute neutrophil countOrd ered By: Javier Isabel on 01-20-2025 Neutrophils (Bld) [#/Vol] 6.1 10*3/uL 2.0-7.7 [facility] Anion gap in Serum or Plasma Ordered By: Javier Isabel on 01-20-2025 Anion gap [Moles/Vol] 12 mmol/L 5-15 [facility] Automated lymphocyte count a s percentage of total leukocytesOrdered By: Javier Isabel on 01-20-2025 Lymphocytes/100 WBC Auto (Unsp spec) 30.2 % 19-41 [facility] BUN/creatinine ratioOrdered By: Javier Isabel on 01-20-2025 Urea nitrogen/Creatinine [Mass ratio] 8.7 mg/mg Low 10-20 [facility] Basophil percentageOrdered B y: Javier Isabel on 01-20-2025 Basophils/100 WBC (Bld) 0.9 % 0-1 [facility] Bilirubin Test strip Ql (U)O rdered By: Javier Isabel on 01-20-2025 Bilirubin Ql (U) Negative Negative [facility] Bilirubin, totalOrdered By: Javier Isabel on 01-20-2025 Bilirubin [Mass/Vol] 0.67 mg/dL 0.00-1.30 [facility] CBC W/Diff, Automatedon 05-3 0-2025 Absolute Lymph 3.05 X10 3/uL Normal 0.83-4.51 [facility] Comment on above: Performed By: #### L 100.0100, L700.6800, L501.2450, L500.4050 #### [facility] [address] [place], [address] Absolute Neut 6.1 X10 3/uL Normal 2.0-7.7 [facility] Comment on above: Performed By: #### L 100.0100, L700.6800, L501.2450, L500.4050 #### [facility] [address] [place], [address] Basophils/100 WBC (Bld) 0.9 % Normal 0-1 [facility] Comment on above: Performed By: #### L 100.0100, L700.6800, L501.2450, L500.4050 #### [facility] [address] [place], [address] Eosinophils/100 WBC (Bld) 1.9 % Normal 0-5 [facility] Comment on above: Performed By: #### L 100.0100, L700.6800, L501.2450, L500.4050 #### [facility] [address] [place], [address] Erythrocyte distribution width (RBC) [Ratio] 11.8 % Normal 11.6-14.6 [facility] Comment on above: Performed By: #### L 100.0100, L700.6800, L501.2450, L500.4050 #### [facility] [address] [place], [address] Hematocrit (Bld) [Volume fraction] 40.5 % Normal 37-47 [facility] Comment on above: Performed By: #### L 100.0100, L700.6800, L501.2450, L500.4050 #### [facility] [address] [place], [address] Hemoglobin (Bld) [Mass/Vol] 13.5 g/dL Normal 12.0-15.0 [facility] Comment on above: Performed By: #### L 100.0100, L700.6800, L501.2450, L500.4050 #### [facility] [address] [place], [address] IG% 0.300 Normal 0.0-0.9 [facility] Comment on above: Result Comment: IG% - Immature Granulocytes (promyelocytes, myelocytes and metamyelocytes) > 1% indicates that a LEFT SHIFT is Present. Performed By: #### L 100.0100, L700.6800, L501.2450, L500.4050 #### [facility] [address] [place], [address] Lymphocytes/100 WBC (Bld) 30.2 % Normal 19-41 [facility] Comment on above: Performed By: #### L 100.0100, L700.6800, L501.2450, L500.4050 #### [facility] [address] [place], [address] MCH (RBC) [Entitic mass] 28.7 pg Normal 27.0-32.0 [facility] Comment on above: Performed By: #### L 100.0100, L700.6800, L501.2450, L500.4050 #### [facility] [address] [place], [address] MCHC (RBC) [Mass/Vol] 33.3 g/dL Normal 32-36 [facility] Comment on above: Performed By: #### L 100.0100, L700.6800, L501.2450, L500.4050 #### [facility] [address] [place], [address] MCV (RBC) [Entitic vol] 86.2 fL Normal 81-99 [facility] Comment on above: Performed By: #### L 100.0100, L700.6800, L501.2450, L500.4050 #### [facility] [address] [place], [address] Monocytes/100 WBC (Bld) 6.6 % Normal 0-10 [facility] Comment on above: Performed By: #### L 100.0100, L700.6800, L501.2450, L500.4050 #### [facility] [address] [place], [address] Neutrophils/100 WBC (Bld) 60.1 % Normal 47-70 [facility] Comment on above: Performed By: #### L 100.0100, L700.6800, L501.2450, L500.4050 #### [facility] [address] [place], [address] Nucleated RBC (Bld) [#/Vol] 0 10*3/uL Normal 0-5 [facility] Comment on above: Performed By: #### L 100.0100, L700.6800, L501.2450, L500.4050 #### [facility] [address] [place], [address] Platelet mean volume (Bld) [Entitic vol] 10.1 fL Normal 6.2-12.0 [facility] Comment on above: Performed By: #### L 100.0100, L700.6800, L501.2450, L500.4050 #### [facility] [address] [place], [address] Platelets (Bld) [#/Vol] 358 10*3/uL Normal 150-450 [facility] Comment on above: Performed By: #### L 100.0100, L700.6800, L501.2450, L500.4050 #### [facility] [address] [place], [address] RBC (Bld) [#/Vol] 4.70 10*6/uL Normal 4.2-5.4 [facility] Comment on above: Performed By: #### L 100.0100, L700.6800, L501.2450, L500.4050 #### [facility] [address] [place], [address] RDW SD 37.2 fl Normal 35.1-43.9 [facility] Comment on above: Performed By: #### L 100.0100, L700.6800, L501.2450, L500.4050 #### [facility] [address] [place], [address] WBC (Bld) [#/Vol] 10.1 10*3/uL Normal 4.4-11.0 [facility] Comment on above: Performed By: #### L 100.0100, L700.6800, L501.2450, L500.4050 #### [facility] [address] [place], [address] CT Chest, Abd, Pel w/Contras ton 01-20-2025 CT Chest, Abd, Pel w/Contrast [facility] Services [address] [place] [address] CT Chest, Abd, Pel w/Contrast MR#: [id number] Acct: [id number] Name: LUIS BARAJAS Rep #: [id number] : 2005 F 19 From: José Luis Robison PCP: Dr. Mitzy Fung MD Status: REG ER Study: CT Chest, Abd, Pel w/Contrast Date of Exam: Exam# [id number] Ordering Dr: Javier Isabel DO PROCEDURE: CT [...] on series 2, image 66. Reading Location: [facility] CC: Dr. Javier Isabel DO; Dr. Mitzy Fung MD Remarketing Rep: Signed Normal [facility] Carbon dioxide, total [Moles /volume] in Central venous bloodOrdered By: Javier Isabel on 01-20-2025 CO2 [Moles/Vol] 21.7 mmol/L 21.0-32.0 [facility] Chloride assayOrdered By: Gabo Isabel on 01-20-2025 Chloride [Moles/Vol] 105 mmol/L 98-108 [facility] Comprehensive Metabolic Prof ilon 01-20-2025 Albumin [Mass/Vol] 4.7 g/dL Normal 3.5-5.0 [facility] Comment on above: Performed By: #### L 400.0001 #### [facility] [address] [place], [address] Albumin/Globulin [Mass ratio] 1.6 {ratio} Normal 0.9-2.4 [facility] Comment on above: Performed By: #### L 400.0001 #### [facility] [address] [place], [address] ALK PHOS 58 U/L Normal 35-104 [facility] Comment on above: Performed By: #### L 400.0001 #### [facility] [address] [place], [address] ALT [Catalytic activity/Vol] 13 U/L Normal <=34 [facility] Comment on above: Performed By: #### L 400.0001 #### [facility] [address] [place], [address] AST [Catalytic activity/Vol] 25 U/L Normal <=31 [facility] Comment on above: Performed By: #### L 400.0001 #### [facility] [address] [place], [address] Bilirubin [Mass/Vol] 0.67 mg/dL Normal 0.00-1.30 [facility] Comment on above: Performed By: #### L 400.0001 #### [facility] [address] [place], [address] BUN/CRE 8.7 RATIO Low 10-20 [facility] Comment on above: Performed By: #### L 400.0001 #### [facility] [address] [place], [address] Calcium [Mass/Vol] 9.7 mg/dL Normal 7.6-11.0 [facility] Comment on above: Performed By: #### L 400.0001 #### [facility] [address] [place], [address] Chloride [Moles/Vol] 105 mmol/L Normal 98-108 [facility] Comment on above: Performed By: #### L 400.0001 #### [facility] [address] [place], [address] CO2 [Moles/Vol] 21.7 mmol/L Normal 21.0-32.0 [facility] Comment on above: Performed By: #### L 400.0001 #### [facility] [address] [place], [address] Creatinine [Mass/Vol] 0.94 mg/dL Normal 0.70-1.20 [facility] Comment on above: Performed By: #### L 400.0001 #### [facility] [address] [place], [address] ECRCL 86.62 ml/min Normal 50-250 [facility] Comment on above: Performed By: #### L 400.0001 #### [facility] [address] [place], [address] GAP 12 Normal 5-15 [facility] Comment on above: Performed By: #### L 400.0001 #### [facility] [address] [place], [address] GFR/1.73 sq M.predicted among non-blacks MDRD (S/P/Bld) [Vol rate/Area] 89 mL/min/{1.73_m2} Normal >60 [facility] Comment on above: Result Comment: mL/m in/1.73m2 CKD-EPI Creatinine Equation (2020) Performed By: #### L 400.0001 #### [facility] [address] [place], [address] Globulin (S) [Mass/Vol] 3.0 g/dL Normal 2.2-4.2 [facility] Comment on above: Performed By: #### L 400.0001 #### [facility] [address] [place], [address] Glucose [Mass/Vol] 92 mg/dL Normal 70-99 [facility] Comment on above: Performed By: #### L [id number] #### [facility] [address] [place], [address] Potassium [Moles/Vol] 3.9 mmol/L Normal 3.3-5.1 [facility] Comment on above: Performed By: #### L 400.0001 #### [facility] [address] [place], [address] Sodium [Moles/Vol] 139 mmol/L Normal 133-145 [facility] Comment on above: Performed By: #### L 400.0001 #### [facility] [address] [place], [address] T PROT 7.7 g/dL Normal 5.9-8.4 [facility] Comment on above: Performed By: #### L 400.0001 #### [facility] [address] [place], [address] Urea nitrogen [Mass/Vol] 8 mg/dL Normal 4-19 [facility] Comment on above: Performed By: #### L 400.0001 #### [facility] [address] [place], [address] Emergency Department Summary on 01-20-2025 Emergency Department Summary [facility] Medical Records Department [address] [place] [address] Emergency Department Summary 01/20/25 MR#: [id number] Acct: [id number] Name: LUIS BARAJAS Rep #: [id number] : 2005 19 From: Javier Isabel DO PCP: Dr. Mitzy Fung MD Status:DEP ER Location: ED HPI History of Present Illness Chief Complaint: Abd Pain Informant: patient Onset/Context/June parra Onset: Today Mechanism/Context: Fall Quality of Pain: [...] days. Patient denies any fevers or chills. [facility] Medical History Wears glasses Bipolar disorder Anxiety [...] x3, CN's (more content not included)... Normal [facility] Eosinophil percentageOrdered By: Javier Isabel on 01-20-2025 Eosinophils/100 WBC (Bld) 1.9 % 0-5 [facility] Erythrocyte distribution wid th ratioOrdered By: Javier Isabel on 01-20-2025 Erythrocyte distribution width (RBC) [Ratio] 11.8 % 11.6-14.6 [facility] Erythrocyte distribution wid th standard deviationOrdered By: Javier Isabel on 01-20-2025 Erythrocyte distribution width (RBC) [Ratio] 37.2 fl 35.1-43.9 [facility] Glomerular filtration rate ( GFR) estimation/1.73 sq m using serum, plasma, or whole bOrdered By: Javier Isabel on 01-20-2025 GFR/1.73 sq M.predicted among non-blacks MDRD (S/P/Bld) [Vol rate/Area] 89 mL/min/{1.73_m2} >60 [facility] Comment on above: mL/min/1.73m2 CKD-EP I Creatinine Equation (2020) Hematocrit Auto (Bld) [Volum e fraction]Ordered By: Javier Isabel on 01-20-2025 Hematocrit (Bld) [Volume fraction] 40.5 % 37-47 [facility] Hemoglobin measurementOrdere d By: Javier Isabel on 01-20-2025 Hemoglobin (Bld) [Mass/Vol] 13.5 g/dL 12.0-15.0 [facility] Immature granulocytes/100 WB C Auto (Bld)Ordered By: Javier Isabel on 01-20-2025 Immature granulocytes/100 WBC (Bld) 0.300 % 0.0-0.9 [facility] Comment on above: IG% - Immature Granu locytes (promyelocytes, myelocytes and metamyelocytes) > 1% indicates that a LEFT SHIFT is Present. Ketones Test strip Ql (U)Ord ered By: Javier Isabel on 01-20-2025 Ketones Ql (U) Negative Negative [facility] - Chemistry and C hemistry - challengeOrdered By: Javier Isabel on 01-20-2025 AST [Catalytic activity/Vol] 25 U/L <32 [facility] Lipaseon 01-20-2025 Lipase [Catalytic activity/Vol] 28 U/L Normal 13-75 [facility] Comment on above: Result Comment: Antonio castro note: LIPASE revised reference range effective 22. New Lipase methodology. Expected to produce lower values than the previous assay method. NEW Reference Range: 13 - 75 U/L Performed By: #### L [id number] #### [facility] [place], [address] Lipase measurementOrdered By : Javier Isabel on 01-20-2025 Lipase [Catalytic activity/Vol] 28 U/L 13-75 [facility] Comment on above: Please note:LIPASE r evised reference range effective 22. New Lipase methodology. Expected to produce lower values than the previous assay method. NEW Reference Range: 13 - 75 U/L MCV (mean corpuscular volume ) determinationOrdered By: Javier Isabel on 01-20-2025 MCV (RBC) [Entitic vol] 86.2 fL 81-99 [facility] Mean corpuscular hemoglobin (MCH) determinationOrdered By: Javier Isabel on 01-20-2025 MCH (RBC) [Entitic mass] 28.7 pg 27.0-32.0 [facility] Mean corpuscular hemoglobin concentration (MCHC) determinationOrdered By: Javier Isabel on 01-20-2025 MCHC (RBC) [Mass/Vol] 33.3 g/dL 32-36 [facility] Mean platelet volume determi nationOrdered By: Javier Isabel on 01-20-2025 Platelet mean volume (Bld) [Entitic vol] 10.1 fL 6.2-12.0 [facility] Microscopic analysis of urin e for red blood cells (RBC)Ordered By: Javier Isabel on 01-20-2025 Microscopic analysis of urine for red blood cells (RBC) 0-5 SEEN /hpf 0-5 [facility] Monocyte percentageOrdered B y: Javier Isabel on 01-20-2025 Monocytes/100 WBC (Bld) 6.6 % 0-10 [facility] Mucus LM Ql (Urine sed)Order ed By: Javier Isabel on 01-20-2025 Mucus Ql (Urine sed) 0 SEEN /hpf [facility] Neutrophil percentageOrdered By: Javier Isabel on 01-20-2025 Neutrophils/100 WBC (Bld) 60.1 % 47-70 [facility] Nitrite Test strip Ql (U)Ord ered By: Javier Isabel on 01-20-2025 Nitrite Ql (U) Negative Negative [facility] Nucleated red blood cell per centageOrdered By: Javier Isabel on 01-20-2025 Nucleated RBC/100 WBC (Bld) [Ratio] 0 % 0-5 [facility] Platelet countOrdered By: Gabo Isabel on 01-20-2025 Platelets (Bld) [#/Vol] 358 10*3/uL 150-450 [facility] Potassium measurement (mass/ volume)Ordered By: Javier Isabel on 01-20-2025 Potassium (Unsp spec) [Mass/Vol] 3.9 mmol/L 3.3-5.1 [facility] ,Serum,hCG Quali.on 01-20-2025 HCG, SERUM QUAL Negative Normal [facility] Comment on above: Performed By: #### L [id number] #### [facility] [address] [place], [place] [address], [address] Protein Test strip Ql (U)Ord ered By: Javier Isabel on 01-20-2025 Protein Ql (U) 15 mg/dl High Negative [facility] RBC Auto (Bld) [#/Vol]Ordere d By: Javier Isabel on 01-20-2025 RBC (Bld) [#/Vol] 4.70 10*6/uL 4.2-5.4 [facility] Serum beta-hCG test, qualita tiveOrdered By: Javier Isabel on 01-20-2025 Beta HCG ( test) Ql Negative [facility] Serum creatinine measurement (mass/volume)Ordered By: Javier Isabel on 01-20-2025 Creatinine [Mass/Vol] 0.94 mg/dL 0.70-1.20 [facility] Serum globulin measurementOr dered By: Javier Isabel on 01-20-2025 Globulin (S) [Mass/Vol] 3.0 g/dL 2.2-4.2 [facility] Serum glucose measurement (m ass/volume)Ordered By: Javier Isabel on 01-20-2025 Glucose [Mass/Vol] 92 mg/dL 70-99 [facility] Serum or plasma alanine lowe otransferase (ALT) measurementOrdered By: Javier Isabel on 01-20-2025 ALT [Catalytic activity/Vol] 13 U/L <35 [facility] Serum or plasma albumin vel urement (mass/volume)Ordered By: Javier Isabel on 01-20-2025 Albumin [Mass/Vol] 4.7 g/dL 3.5-5.0 [facility] Serum or plasma albumin/glob ulin mass ratioOrdered By: Javier Isabel on 01-20-2025 Albumin/Globulin [Mass ratio] 1.6 {ratio} 0.9-2.4 [facility] Serum or plasma alkaline jeromy sphatase measurementOrdered By: Javier Isable on 01-20-2025 ALP [Catalytic activity/Vol] 58 U/L 35-104 [facility] Serum or plasma calcium vel urement (mass/volume)Ordered By: Javier Isabel on 01-20-2025 Calcium [Mass/Vol] 9.7 mg/dL 7.6-11.0 [facility] Serum or plasma urea nitroge n measurement (mass/volume)Ordered By: Javier Isabel on 01-20-2025 Urea nitrogen [Mass/Vol] 8 mg/dL 4-19 [facility] Sodium levelOrdered By: Javier Isabel on 01-20-2025 Sodium [Moles/Vol] 139 mmol/L 133-145 [facility] Squamous epithelial cells de tection in urine sediment by light microscopyOrdered By: Javier Isabel on 01-20-2025 Epithelial cells.squamous LM Ql (Urine sed) 0 SEEN /hpf 5-10 [facility] Total proteinOrdered By: Lina Isabel on 01-20-2025 Protein [Mass/Vol] 7.7 g/dL 5.9-8.4 [facility] Urinalysis, Completeon 05-30 -2025 RBC 0-5 SEEN Normal 0-5 [facility] Comment on above: Order Comment: CLEAN CATCH Performed By: #### L [id number] #### [facility] [address] [place], [address] WBC 0-5 SEEN Normal 0-5 [facility] Comment on above: Order Comment: CLEAN CATCH Performed By: #### L [id number] #### [facility] [address] [place], [address] BACTERIA 0 SEEN Normal None Seen [facility] Comment on above: Order Comment: CLEAN CATCH Performed By: #### L [id number] #### [facility] [address] [place], [address] EPI,SQUAMOUS 0 SEEN Normal 5-10 [facility] Comment on above: Order Comment: CLEAN CATCH Performed By: #### L [id number] #### [facility] [address] [place], [address] Mucus Ql (Urine sed) 0 SEEN Normal [facility] Comment on above: Order Comment: CLEAN CATCH Performed By: #### L [id number] #### [facility] [address] [place], [address] Urine clarityOrdered By: Lina Isabel on 01-20-2025 Clarity (U) Clear Clear [facility] Urine color determinationOrd ered By: Javier Isabel on 01-20-2025 Color (U) Straw Yellow [facility] Urine glucose detectionOrder ed By: Javier Isabel on 01-20-2025 Glucose Ql (U) Normal mg/dl Normal [facility] Urine leukocyte esterase det ection by dipstickOrdered By: Javier Isabel on 01-20-2025 Leukocyte esterase Test strip Ql (U) Negative Negative [facility] Urine pHOrdered By: Javier dow on 01-20-2025 pH (U) 7.0 [pH] 5.0 - 8.0 [facility] Urine sediment bacteria coun t by microscopy (number/high power field)Ordered By: Javier Isabel on 01-20-2025 Bacteria LM.HPF (Urine sed) [#/Area] 0 /[HPF] None Seen [facility] Urine specific gravity measu rementOrdered By: Javier Isabel on 01-20-2025 Specific gravity (U) [Rel density] 1.010 1.002-1.030 [facility] Urine urobilinogen measureme ntOrdered By: Javier Isabel on 01-20-2025 Urobilinogen Ql (U) Normal mg/dl Normal [facility] White blood cell (WBC) count Ordered By: Javier Isabel on 01-20-2025 WBC (Bld) [#/Vol] 10.1 10*3/uL 4.4-11.0 [facility] White blood cell countOrdere d By: Javier Isabel on 01-20-2025 White blood cell count 0-5 SEEN /hpf 0-5 [facility] C-REACTIVE PROTEINon 025 CRP [Mass/Vol] mg/L Invalid Interpretation Code <= 1.0 mg/dL [facility] Comment on above: Order Comment: Relea [...] to generate a CRP response. Verified By: [id number] C-reactive protein (Lab Fred ect)on 09-07-2024 CRP [Mass/Vol] <= 1.0 mg/dL MG/DL [facility] Comment on above: CRP determinations i n neonates should be interpreted with caution. CRP may be elevated in circumstances not associated with inflammation (e.g. difficult delivery, pneumothorax). In premature neonates CRP levels may not rise to abnormal levels even if sepsis is present; some speculate that immature liver function decreases the ability to generate a CRP response. Verified By: [id number] COMPLETE BLOOD COUNT WITH DI FFERENTIALon 09-07-2024 Basophil \P\ 0.08 10E3/???L High 0.02-0.06 [facility] Comment on above: Order Comment: Relea se to patient->Automatic Basophils/100 WBC (Bld) 0.7 % Invalid Interpretation Code 0.3-0.9 [facility] Comment on above: Order Comment: Relea se to patient->Automatic Eosinophil \P\ 0.17 10E3/???L Invalid Interpretation Code 0.04-0.27 [facility] Comment on above: Order Comment: Relea se to patient->Automatic Eosinophils/100 WBC (Bld) 1.4 % Invalid Interpretation Code 0.6-3.8 [facility] Comment on above: Order Comment: Relea se to patient->Automatic Erythrocyte distribution width (RBC) [Ratio] 12.4 % Invalid Interpretation Code 11.9-14.8 [facility] Comment on above: Order Comment: Relea se to patient->Automatic Hematocrit (Bld) [Volume fraction] 46.4 % High 35.5-44.6 [facility] Comment on above: Order Comment: Relea se to patient->Automatic Hemoglobin (Bld) [Mass/Vol] 15.1 g/dL High 11.4-14.8 [facility] Comment on above: Order Comment: Relea se to patient->Automatic Immature granulocytes/100 WBC (Bld) 0.3 % Invalid Interpretation Code 0.2-0.5 [facility] Comment on above: Order Comment: Relea se to patient->Automatic Result Comment: Jina ture Granulocyte Percent includes promyelocytes, myelocytes,and metamyelocytes. IG% > 1.0 indicates a left shift is present. With automated differentials, bands are included in the neutrophil count and not in the Immature Granulocyte Percent. Lymphocyte \P\ 3.57 10E3/???L High 1.51-2.99 [facility] Comment on above: Order Comment: Relea se to patient->Automatic Lymphocytes/100 WBC (Bld) 29.2 % Invalid Interpretation Code 21.8-42.1 [facility] Comment on above: Order Comment: Relea se to patient->Automatic MCH (RBC) [Entitic mass] 28.2 pg Invalid Interpretation Code 25.7-31.2 [facility] Comment on above: Order Comment: Relea se to patient->Automatic MCHC 32.5 % Invalid Interpretation Code 31.3-34.0 [facility] Comment on above: Order Comment: Relea se to patient->Automatic MCV (RBC) [Entitic vol] 86.6 fL Invalid Interpretation Code 80.7-93.7 [facility] Comment on above: Order Comment: Relea se to patient->Automatic Monocyte \P\ 0.89 10E3/???L High 0.36-0.77 [facility] Comment on above: Order Comment: Relea se to patient->Automatic Monocytes/100 WBC (Bld) 7.3 % Invalid Interpretation Code 5.6-10.2 [facility] Comment on above: Order Comment: Relea se to patient->Automatic Neutrophil \P\ 7.46 10E3/???L High 2.43-6.42 [facility] Comment on above: Order Comment: Relea se to patient->Automatic Neutrophils/100 WBC (Bld) 61.1 % Invalid Interpretation Code 46.0-68.6 [facility] Comment on above: Order Comment: Relea se to patient->Automatic Nucleated RBC/100 WBC (Bld) [Ratio] 0.0 % Invalid Interpretation Code 0.0-0.0 [facility] Comment on above: Order Comment: Relea se to patient->Automatic Platelet mean volume (Bld) [Entitic vol] 10.1 fL Invalid Interpretation Code 9.6-11.9 [facility] Comment on above: Order Comment: Relea se to patient->Automatic Platelets 412 10E3/???L High 150-400 [facility] Comment on above: Order Comment: Relea se to patient->Automatic RBC 5.36 10E6/???L High 4.03-4.91 [facility] Comment on above: Order Comment: Relea se to patient->Automatic WBC 12.2 10E3/???L High 4.9-10.0 [facility] Comment on above: Order Comment: Relea se to patient->Automatic COMPREHENSIVE METABOLIC PANE Joni 09-07-2024 Albumin [Mass/Vol] 4.7 g/dL Invalid Interpretation Code 3.5-5.0 [facility] Comment on above: Order Comment: Relea se to patient->Automatic Result Comment: Veri fied By: [id number] ALP [Catalytic activity/Vol] 62 U/L Invalid Interpretation Code 35-104 [facility] Comment on above: Order Comment: Relea se to patient->Automatic Result Comment: Veri fied By: [id number] ALT [Catalytic activity/Vol] 12 U/L Invalid Interpretation Code <=34 [facility] Comment on above: Order Comment: Relea se to patient->Automatic Result Comment: Veri fied By: [id number] AST [Catalytic activity/Vol] 30 U/L Invalid Interpretation Code <=31 [facility] Comment on above: Order Comment: Relea se to patient->Automatic Result Comment: Veri fied By: [id number] BILI,TOTAL 0.7 mg/dL Invalid Interpretation Code <=1.0 [facility] Comment on above: Order Comment: Relea se to patient->Automatic Result Comment: Veri fied By: [id number] Calcium [Mass/Vol] 10.5 mg/dL Invalid Interpretation Code 7.6-11.0 [facility] Comment on above: Order Comment: Relea se to patient->Automatic Result Comment: Veri fied By: [id number] Chloride [Moles/Vol] 102 mmol/L Invalid Interpretation Code 96-108 [facility] Comment on above: Order Comment: Relea se to patient->Automatic Result Comment: Veri fied By: [id number] CO2 [Moles/Vol] 26.1 mmol/L Invalid Interpretation Code 22.0-29.0 [facility] Comment on above: Order Comment: Relea se to patient->Automatic Result Comment: Veri fied By: [id number] Creatinine [Mass/Vol] 0.79 mg/dL Invalid Interpretation Code 0.50-1.00 [facility] Comment on above: Order Comment: Relea se to patient->Automatic Result Comment: Veri fied By: [id number] GFR/1.73 sq M.predicted among non-blacks MDRD (S/P/Bld) [Vol rate/Area] mL/min/{1.73_m2} Invalid Interpretation Code >=60 [facility] Comment on above: Order Comment: Relea se to patient->Automatic Glucose [Mass/Vol] 98 mg/dL Invalid Interpretation Code 70-99 [facility] Comment on above: Order Comment: Relea [...] plus Classic Symptoms of Diabetes Verified By: [id number] Potassium [Moles/Vol] 4.1 mmol/L Invalid Interpretation Code 3.3-5.1 [facility] Comment on above: Order Comment: Relea se to patient->Automatic Result Comment: Veri fied By: [id number] Protein [Mass/Vol] 8.0 g/dL Invalid Interpretation Code 5.9-8.4 [facility] Comment on above: Order Comment: Relea se to patient->Automatic Result Comment: Veri fied By: [id number] Sodium [Moles/Vol] 141 mmol/L Invalid Interpretation Code 133-145 [facility] Comment on above: Order Comment: Relea se to patient->Automatic Result Comment: Veri fied By: [id number] Urea nitrogen [Mass/Vol] 13 mg/dL Invalid Interpretation Code 4-19 [facility] Comment on above: Order Comment: Relea se to patient->Automatic Result Comment: Veri fied By: [id number] Complete Blood Count with Di fferentialOrdered By: Lindy Greer on 09-07-2024 Basophils (Bld) [#/Vol] 0.08 10*3/uL High [facility] Basophils/100 WBC (Bld) 0.7 % 0.3 - 0.9 % [facility] Eosinophils (Bld) [#/Vol] 0.17 10*3/uL [facility] Eosinophils/100 WBC (Bld) 1.4 % 0.6 - 3.8 % [facility] Erythrocyte distribution width (RBC) [Ratio] 12.4 % 11.9 - 14.8 % [facility] Hematocrit (Bld) [Volume fraction] 46.4 % High 35.5 - 44.6 % [facility] Hemoglobin (Bld) [Mass/Vol] 15.1 g/dL High 11.4 - 14.8 g/dL [facility] Immature granulocytes/100 WBC (Bld) 0.3 % 0.2 - 0.5 % [facility] Comment on above: Immature Granulocyte Percent includes promyelocytes, myelocytes,and metamyelocytes. IG% > 1.0 indicates a left shift is present. With automated differentials, bands are included in the neutrophil count and not in the Immature Granulocyte Percent. Interpretation and review of laboratory results Abnormal [facility] Lymphocytes (Bld) [#/Vol] 3.57 10*3/uL High [facility] Lymphocytes/100 WBC (Bld) 29.2 % 21.8 - 42.1 % [facility] MCH (RBC) [Entitic mass] 28.2 pg 25.7 - 31.2 pg [facility] MCHC (RBC) [Mass/Vol] 32.5 % 31.3 - 34.0 % [facility] MCV (RBC) [Entitic vol] 86.6 fL 80.7 - 93.7 fL [facility] Monocytes (Bld) [#/Vol] 0.89 10*3/uL [facility] Monocytes/100 WBC (Bld) 7.3 % 5.6 - 10.2 % [facility] Neutrophils (Bld) [#/Vol] 7.46 10*3/uL [facility] Neutrophils/100 WBC (Bld) 61.1 % 46.0 - 68.6 % [facility] Nucleated RBC/100 WBC (Bld) [Ratio] 0 % 0.0 - 0.0 % [facility] Platelet mean volume (Bld) [Entitic vol] 10.1 fL 9.6 - 11.9 fL [facility] Platelets (Bld) [#/Vol] 412 10*3/uL [facility] RBC (Bld) [#/Vol] 5.36 10*6/uL [facility] WBC (Bld) [#/Vol] 12.2 10*3/uL [facility] Comprehensive metabolic pane l (Lab Collect)on 09-07-2024 Albumin BCG dye [Mass/Vol] 4.7 g/dL 3.5 - 5.0 g/dL [facility] Comment on above: Verified By: [id number] ALP [Catalytic activity/Vol] 62 U/L 35 - 104 U/L [facility] Comment on above: Verified By: [id number] ALT With P-5'-P [Catalytic activity/Vol] 12 U/L [facility]/L [facility] Comment on above: Verified By: [id number] AST With P-5'-P [Catalytic activity/Vol] 30 U/L [facility] - 31 U/L [facility] Comment on above: Verified By: [id number] Bilirubin [Mass/Vol] 0.7 mg/dL [facility] - 1.0 mg/dL [facility] Comment on above: Verified By: [id number] Calcium [Mass/Vol] 10.5 mg/dL 7.6 - 11. 0 mg/dL [facility] Comment on above: Verified By: [id number] Chloride [Moles/Vol] 102 mmol/L 96 - 108 mmol/L [facility] Comment on above: Verified By: [id number] Creatinine [Mass/Vol] 0.79 mg/dL 0.50 - 1.00 mg/dL [facility] Comment on above: Verified By: [id number] eGFR - PINF [facility] Glucose [Mass/Vol] 98 mg/dL 70 - 99 mg/dL [facility] Comment on above: Criteria for Diagnos is of Diabetes: Fasting Specimen (no caloric intake for at least 8 hours): <100 mg/dL Normal 100-125 mg/dL Increased risk for Diabetes >125 mg/dL Diagnostic for Diabetes Random Glucose (any time of day without regard to last meal): > or = 200 mg/dL plus Classic Symptoms of Diabetes Verified By: [id number] HCO3 (P) [Moles/Vol] 26.1 mmol/L 22.0 - 29.0 mmol/L [facility] Comment on above: Verified By: [id number] Potassium (BldA) [Moles/Vol] 4.1 mmol/L 3.3 - 5.1 mmol/L [facility] Comment on above: Verified By: [id number] Protein [Mass/Vol] 8 g/dL 5.9 - 8.4 g/dL [facility] Comment on above: Verified By: [id number] Sodium [Moles/Vol] 141 mmol/L 133 - 145 mmol/L [facility] Comment on above: Verified By: [id number] Urea nitrogen [Mass/Vol] 13 mg/dL 4 - 19 mg/dL [facility] Comment on above: Verified By: [id number] HEMOGLOBIN A1Con 09-07-2024 HbA1c (Bld) [Mass fraction] 5.5 % Invalid Interpretation Code <=5.6 [facility] Comment on above: Order Comment: Relea to patient->Automatic Result Comment: Refe rence Interval: <5.7% 5.7-6.4% Prediabetes > or = 6.5% Diabetes Targets for diabetes management: Type I <7.5% Type II <7.0% Hemoglobin A1c (Lab Collect) on 09-07-2024 HbA1c (Bld) [Mass fraction] 5.5 % NINF - 5.6 % [facility] Comment on above: Reference Interval: <5.7% 5.7-6.4% Prediabetes > or = 6.5% Diabetes Targets for diabetes management: Type I <7.5% Type II <7.0% Interpretation and review of laboratory results Normal [facility] IMMUNOGLOBULIN Aon Immunoglobulin A 270 mg/dL Invalid Interpretation Code 61348 [facility] Comment on above: Order Comment: Tory castro to patient->Automatic Immunoglobulin AOrdered By: Background Lab on 09-07-2024 IgA [Mass/Vol] 270 mg/dL 61 - 348 mg/dL [facility] Interpretation and review of laboratory results Normal [facility] No Panel Informationon 09-07 Interpretation and review of laboratory results Normal [facility] PREALBUMINon 09-07-2024 Prealbumin [Mass/Vol] 23 mg/dL Invalid Interpretation Code 20-42 [facility] Comment on above: Order Comment: Tory castro to patient->Automatic Prealbuminon 09-07-2024 Interpretation and review of laboratory results Normal [facility] Prealbumin [Mass/Vol] 23 mg/dL 20 - 42 mg/dL [facility] Progress Noteon 09-07-2024 Treater Authentication Interface Message Text Patient ID: Luis [...] Visit and as needed. Check CXR at [facility] Normal chest xray Reviewed asthma plan [...] abdominal tenderness. Neurological: She is alert. Normal [facility] TRANSGLUTAMINASE IGAon 09-07 Transglutaminase IgA 1.69 U/mL Invalid Interpretation Code <=8.99 [facility] Comment on above: Order Comment: Inter pretation of Results: Negative: <9.0 AU/mL Equivocal: 9.0-16.0 AU/mL Positive: >16.0 AU/mL Method: The anti-tTG antibodies were determined using an FRANKY-based commercially available kit (Eu-tTG [employer], [facility] [place]). Release to patient->Automatic TSH WITH REFLEX TO T4, FREEo n 09-07-2024 TSH 1.030 ???IU/mL Invalid Interpretation Code 0.500-4.300 [facility] Comment on above: Order Comment: Relea se to patient->Automatic TSH with Reflex to T4, Free (Lab Collect)on 09-07-2024 Interpretation and review of laboratory results Normal [facility] TSH Qn 1.03 m[IU]/L [facility] Chest PA and Lateralon 08-29 Chest PA and Lateral [facility] [address] [place] [address] Chest PA and Lateral MR#: [id number] Acct: [id number] Name: LUIS BARAJAS Rep #: [id number] : 2005 F 19 From: Jennie dutta MD PCP: Dr. Mitzy Fung MD Status: REG CLI Study: Chest PA and Lateral Date of Exam: 08/29/24 Exam# [id number] Ordering Dr: Lois Conde MD -[id number] HISTORY: PNEUMONIA. TECHNIQUE: XR Chest 2 [...] Mitzy Fung MD; Dr. Lois Conde MD Remarketing Rep: Signed Normal [facility] Progress Noteon 08-29-2024 Treater Authentication Interface Message Text Patient ID: Luis Braajas is a 19 y.o. female. Her chief [...] Future Recheck asthma treatment plan with Nicholas Conde in 1 week. Some confusion about when [...] no rhonchi. Neurological: She is alert. Normal [facility] CNOVon 08-27-2024 CNOV Office Visit ([facility]) ---- LUIS BARAJAS ([id number]) 5 F Date Time Provider Department 08/27/24 11:45 AM JASMIN ENRIQUEZ WSTR During your visit today, we recorded the following information about you: Temperature Pulse Respiration Blood pressure 98.4 degrees 106/minute 20/minute 110/78 Weight 57.1 kg Jasmin Enriquez, ALEX.GARMENT INSPECTOR 08/27/2024 12:30 PM Addendum ASSESSMENT/PLAN: 1. Sore [...] Discussed expected course of illness Jasmin Enriquez APRN.GARMENT INSPECTOR Previous hospitalization care team: Attending Provider: Ernestina Lanza MD (attending for admission) Consulting: Tirso Richey MD (ENT) Consulting: Jason Uriostegui MD (infectious disease) Jasmin Enriquez APRN.GARMENT INSPECTOR 08/27/2024 12:30 PM Signed Subjective Ear Pain [...] (more content not included)... Normal [facility] COVID AND INFLUENZA A/B AND RSV PCR, ROUTINEon 08-27-2024 SARS-CoV-2 (COVID-19) RNA JAIRON+probe Ql (Unsp spec) SARS-COV-2 (AGENT OF COVID-19) RNA: Not detected INFLUENZA A RNA: Not detected INFLUENZA B RNA: Not detected RESPIRATORY SYNCYTIAL VIRUS (RSV) RNA: Not detected Normal [facility] Comment on above: Performed By: #### C VFLRS ####[facility] LABCLIA [id number] [facility] [id number] [address] [place] STREP A MOLECULAR (POC)on Procedural Control Valid [facility] Strep A (POCT) Negative Negative [facility] Urine Cultureon 06-17-2024 [facility] Escherichia coli Daykin Count 50,000-80,000 Escherichia coli: REACTION Ampicillin Islt [...] TMP SMX Islt RYLAND <=20 S Normal [facility] Comment on above: Performed By: #### L 400.0001 #### [facility] [address] [place], [address] CNDSon 04-26-2024 [facility] HNO ID: [id number] Author: ERNESTINA LANZA MD Service: Hospital Medicine [...] PCOS, asthma, URIEL. Patient was transferred from [facility] hospital today for concerns of 2 cm [...] sore throat associated with dysphagia At the [facility] ED CT neck with IV contrast showing [...] mg tablet Commo (more content not included)... [facility] CONSULTon 04-25-2024 CONSULT HNO ID: [id number] Author: JASON URIOSTEGUI MD Service: Infectious Disease [...] well. Was given an oral cephalosporin by brick cleaner late last week. States that feeling better [...] COVID-19 original vaccine, age 12+ yr, monovalent (Ipsum - PURPLE TOP) 04/30/2021 05/22/2021 Haemophilus influenzae [...] April 25, 2024 TIME: 10:44 AM Normal [facility] Basic Metabolic Panelon 09-0 Anion gap [Moles/Vol] 7 mmol/L Normal 4-14 [facility] ([place]) Comment on above: Performed By: #### B #### [facility] [address] [place] [address] Calcium [Mass/Vol] 9.1 mg/dL Normal 8.5-10.5 [facility] ([place]) Comment on above: Performed By: #### B MP #### [facility] [address] [place] [address] Chloride [Moles/Vol] 106 mmol/L Normal 98-107 [facility] ([place]) Comment on above: Performed By: #### B MP #### [facility] [address] [place] [address] CO2 [Moles/Vol] 25 mmol/L Normal 21-31 [facility] ([place]) Comment on above: Performed By: #### B MP #### [facility] [address] [place] [address] Creatinine [Moles/Vol] 0.61 mg/dL Normal 0.60-1.20 [facility] ([place]) Comment on above: Performed By: #### B MP #### [facility] [address] [place] [address] Creatinine and Glomerular filtration rate.predicted panel (S/P/Bld) 153 mL/min Normal >60 [facility] ([place]) Comment on above: Performed By: #### B MP #### [facility] [address] [place] [address] GFR/1.73 sq M.predicted among non-blacks MDRD (S/P/Bld) [Vol rate/Area] 126 mL/min/{1.73_m2} Normal >60 [facility] ([place]) Comment on above: Performed By: #### B MP #### [facility] [address] [place] [address] Glucose [Mass/Vol] 91 mg/dL Normal 70-99 [facility] ([place]) Comment on above: Performed By: #### B MP #### [facility] [address] [place] [address] Potassium [Moles/Vol] 3.7 mmol/L Normal 3.6-5.0 [facility] ([place]) Comment on above: Performed By: #### B MP #### [facility] [address] [place] [address] Sodium [Moles/Vol] 138 mmol/L Normal 135-145 [facility] ([place]) Comment on above: Performed By: #### B MP #### [facility] [address] [place] [address] Urea nitrogen [Mass/Vol] 12 mg/dL Normal 7-25 [facility] ([place]) Comment on above: Performed By: #### B MP #### [facility] [address] [place] [address] CBC W Auto Differential pane l (Bld)on 04-24-2024 Basophils (Bld) [#/Vol] 0.1 10*3/uL Normal 0.00-0.20 [facility] ([place]) Comment on above: Performed By: #### 5 7021-8 #### [facility] [address] [place] [address] Basophils/100 WBC (Bld) 0.8 % Normal 0.0-1.5 S [facility] ([place]) Comment on above: Performed By: #### 5 7021-8 #### [facility] [address] [place] [address] Eosinophils (Bld) [#/Vol] 0.0 10*3/uL Normal 0.00-0.33 [facility] ([place]) Comment on above: Performed By: #### 5 7021-8 #### [facility] [address] [place] [address] Eosinophils/100 WBC (Bld) 0.3 % Normal 0.0-3.0 [facility] ([place]) Comment on above: Performed By: #### 5 7021-8 #### [facility] [address] [place] [address] Erythrocyte distribution width (RBC) [Ratio] 11.9 % Normal 10.9-14.3 [facility] ([place]) Comment on above: Performed By: #### 5 7021-8 #### [facility] [address] [place] [address] Hematocrit (Bld) [Volume fraction] 31.8 % Low 36.0-44.0 [facility] ([place]) Comment on above: Performed By: #### 5 7021-8 #### [facility] [address] [place] [address] Hemoglobin (Bld) [Mass/Vol] 10.8 g/dL Low 12.0-15.0 [facility] ([place]) Comment on above: Performed By: #### 5 7021-8 #### [facility] [address] [place] [address] Lymphocytes Auto (Unsp spec) [#/Vol] 1.9 10*3/uL Normal 1.10-4.80 [facility] ([place]) Comment on above: Performed By: #### 5 7021-8 #### [facility] [address] [place] [address] Lymphocytes/100 WBC (Bld) 13.2 % Low 24.0-44.0 [facility] ([place]) Comment on above: Performed By: #### 5 7021-8 #### [facility] [address] [place] [address] MCH (RBC) [Entitic mass] 29.1 pg Normal 28.0-34.0 [facility] ([place]) Comment on above: Performed By: #### 5 7021-8 #### [address] [address] MCHC (RBC) [Mass/Vol] 34.1 g/dL Normal 33.0-37.0 [facility] ([place]) Comment on above: Performed By: #### 5 7021-8 #### [address] [address] MCV (RBC) [Entitic vol] 85.2 fL Normal 80.0-100.0 S [facility] ([place]) Comment on above: Performed By: #### 5 7021-8 #### [address] [address] Monocytes (Bld) [#/Vol] 1.2 10*3/uL High 0.20-0.70 [facility] ([place]) Comment on above: Performed By: #### 5 7021-8 #### [address] [address] Monocytes/100 WBC (Bld) 8.2 % Normal 3.4-9.0 [facility] ([place]) Comment on above: Performed By: #### 5 7021-8 #### [address] [address] Neutrophils (Bld) [#/Vol] 11.2 10*3/uL High 1.83-8.70 [facility] ([place]) Comment on above: Performed By: #### 5 7021-8 #### [address] [address] Neutrophils/100 WBC (Bld) 77.5 % High 40.0-74.0 [facility] ([place]) Comment on above: Performed By: #### 5 7021-8 #### [address] [address] Platelet mean volume (Bld) [Entitic vol] 8.0 fL Normal 7.4-10.4 [facility] ([place]) Comment on above: Performed By: #### 5 7021-8 #### [address] [address] Platelets (Bld) [#/Vol] 350 10*3/uL Normal 150-450 [facility] ([place]) Comment on above: Performed By: #### 5 7021-8 #### [facility] [address] [place] [address] RBC (Bld) [#/Vol] 3.73 10*6/uL Low 4.00-4.90 [facility] ([place]) Comment on above: Performed By: #### 5 7021-8 #### [facility] [address] [place] [address] WBC (Bld) [#/Vol] 14.4 10*3/uL High 4.5-11.0 [facility] ([place]) Comment on above: Performed By: #### 5 7021-8 #### [facility] [address] [place] [address] CBC panel Auto (Bld)on 04-24 Erythrocyte distribution width (RBC) [Ratio] 11.3 % Low 11.5-15.0 [facility] Comment on above: Order Comment: Speci men Type: BLOOD SPECIMEN Ordering Facility: [facility] Address: [address] [place] [address] Performed By: #### 5 8410-2 #### [facility] CLIA [id number] [address] [place] [address] [place] Hematocrit (Bld) [Volume fraction] 36.0 % Normal 36.0-46.0 [facility] Comment on above: Order Comment: Speci men Type: BLOOD SPECIMEN Ordering Facility: [facility] Address: [address] [place] [address] Performed By: #### 5 8410-2 #### [facility] CLIA [id number] [address] [place], [place] [id number] [place] Hemoglobin (Bld) [Mass/Vol] 12.2 g/dL Normal 11.5-15.5 [facility] Comment on above: Order Comment: Speci men Type: BLOOD SPECIMEN Ordering Facility: [facility] Address: [address] [place] [address] Performed By: #### 5 8410-2 #### [facility] CLIA [id number] [address] [place] [address] [place] MCH (RBC) [Entitic mass] 29.3 pg Normal 26.0-34.0 [facility] Comment on above: Order Comment: Speci men Type: BLOOD SPECIMEN Ordering Facility: [facility] Address: [address] [place] [address] Performed By: #### 5 8410-2 #### [facility] CLIA [id number] [address] [place] [address] [place] MCHC (RBC) [Mass/Vol] 33.9 g/dL Normal 30.5-36.0 [facility] Comment on above: Order Comment: Speci men Type: BLOOD SPECIMEN Ordering Facility: [facility] Address: [address] [place] [address] Performed By: #### 5 8410-2 #### [facility] CLIA [id number] [address] [place] [address] [place] MCV (RBC) [Entitic vol] 86.3 fL Normal 80.0-100.0 [facility] Comment on above: Order Comment: Speci men Type: BLOOD SPECIMEN Ordering Facility: [facility] Address: [address] [place] [address] Performed By: #### 5 8410-2 #### [facility] CLIA [id number] [address] [place] [address] [place] Nucleated RBC (Bld) [#/Vol] 10*3/uL Normal <0.01 [facility] Comment on above: Order Comment: Speci men Type: BLOOD SPECIMEN Ordering Facility: [facility] Address: [address] [place] [address] Performed By: #### 5 8410-2 #### [facility] CLIA [id number] [address] [place] [address] [place] Platelet mean volume (Bld) [Entitic vol] 9.7 fL Normal 9.0-12.7 [facility] Comment on above: Order Comment: Speci men Type: BLOOD SPECIMEN Ordering Facility: [facility] Address: [address] [place], [place] [address] Performed By: #### 5 8410-2 #### [facility] CLIA [id number] [address] [place], [place] [id number] [facility] [place] Platelets (Bld) [#/Vol] 391 10*3/uL Normal 150-400 [facility] Comment on above: Order Comment: Speci men Type: BLOOD SPECIMEN Ordering Facility: [facility] Address: [address] [place] [address] Performed By: #### 5 8410-2 #### [facility] CLIA [id number] [address] [place], [place] [id number] [facility] [place] RBC (Bld) [#/Vol] 4.17 10*6/uL Normal 3.90-5.20 [facility] Comment on above: Order Comment: Speci men Type: BLOOD SPECIMEN Ordering Facility: [facility] Address: [address] [place] [address] Performed By: #### 5 8410-2 #### [facility] CLIA [id number] [address] [place], [place] [id number] [place] WBC (Bld) [#/Vol] 13.20 10*3/uL High 3.70-11.00 [facility] Comment on above: Order Comment: Speci men Type: BLOOD SPECIMEN Ordering Facility: [facility] Address: [address] [place] [address] Performed By: #### 5 8410-2 #### [facility] CLIA [id number] [address] [place], [place] [id number] [facility] [place] CONSULTon 04-24-2024 CONSULT HNO ID: [id number] Author: TIRSO RICHEY MD Service: Otolaryngology Author Type: Physician Type: Consults Filed: 04/24/2024 14:50 Note Text: 04/24/2024 This 19-year-old patient was transferred from [facility] for management of a right peritonsillar abscess. She complains of sore throat for the last 3 days following dental extraction procedures on the right side of her mouth. She does have a history of frequent tonsil stones but no frequent strep positive infections. She was evaluated by her local ENT in [place] who told her she was not a candidate for tonsillectomy due to the infrequency of her strep positive infections. She was given some oral antibiotics at [facility] without improvement. Her evaluation here shows that she is afebrile, white blood cell count 13,200. There is a CT scan that was transferred from [facility] which shows asymmetric swelling of the right [...] of that extraction site. Tirso Richey MD [facility] CT soft tissue neck wo/w con on 04-24-2024 CT soft tissue neck wo/w con [facility] [address] [place] [address] CT Scan Report Signed Patient: LUIS BARAJAS MR#: [id number] : 2005 Acct:[id number] Age/Sex: 19 / F Admit Date: 04/23/24 Loc: ER Attending Dr: Ordering Physician: Natanael Hyde MD Date of Service: 04/24/24 Procedure(s): CT soft tissue neck wo/w con Accession Number(s): [id number] cc: Natanael Hyde MD INDICATION: Right tonsillar [...] Burton MD Dictated By: Ara Burton DD/ 0349 Signed By: Ara Burton 04/24/24 0349 Remarketing Rep: EDLGADO 04/24/24 0349 Normal [facility] ([place]) Comprehensive metabolic 2000 panelon 04-24-2024 Albumin [Mass/Vol] 4.0 g/dL Normal 3.2-5.0 [facility] Comment on above: Order Comment: Speci men Type: BLOOD SPECIMEN Ordering Facility: [facility] Address: [address] [place], [place] [address] Performed By: #### 2 4323-8, , 2776-08 #### [facility] CLIA [id number] [address] [place] [address] [place] ALP [Catalytic activity/Vol] 72 U/L Normal 45-117 [facility] Comment on above: Order Comment: Speci men Type: BLOOD SPECIMEN Ordering Facility: [facility] Address: [address] [place], [place] [address] Performed By: #### 2 4323-8, , 2776-08 #### [facility] CLIA [id number] [address] [place] [address] [place] ALT [Catalytic activity/Vol] 8 U/L Low 13-61 [facility] Comment on above: Order Comment: Ryan spain Type: BLOOD SPECIMEN Ordering Facility: [facility] Address: [address] [place] [address] Result Comment: Resu lts may be falsely depressed after the administration of Sulfasalazine and/or Sulfapyridine. Performed By: #### 2 4323-8, 55736-5, 2776-08 #### [facility] CLIA [id number] [address] [place] [address] [place] Anion gap [Moles/Vol] 9 mmol/L Normal 5-16 [facility] Comment on above: Order Comment: Ryan spain Type: BLOOD SPECIMEN Ordering Facility: [facility] Address: [address] [place] [address] Performed By: #### 2 4323-8, , 2776-08 #### [facility] CLIA [id number] [address] [place] [address] [place] AST [Catalytic activity/Vol] 19 U/L Normal 8-34 [facility] Comment on above: Order Comment: Ryan spain Type: BLOOD SPECIMEN Ordering Facility: [facility] Address: [address] [place] [address] Result Comment: Resu lts may be falsely depressed after the administration of Sulfasalazine and/or Sulfapyridine. Performed By: #### 2 4323-8, , 2776-08 #### [facility] CLIA [id number] [address] [place], [place] [id number] [place] Bilirubin [Mass/Vol] 0.5 mg/dL Normal 0.2-1.0 [facility] Comment on above: Order Comment: Ryan spain Type: BLOOD SPECIMEN Ordering Facility: [facility] Address: [address] [place] [address] Performed By: #### 2 4323-8, , 2776-08 #### [facility] CLIA [id number] [address] [place], [place] [address] [place] Calcium [Mass/Vol] 10.3 mg/dL Normal 8.5-10.5 [facility] Comment on above: Order Comment: Speci men Type: BLOOD SPECIMEN Ordering Facility: [facility] Address: [address] [place], [place] [address] Performed By: #### 2 4323-8, , 2776-08 #### [facility] CLIA [id number] [address] [place], [place] [address] [place] Chloride [Moles/Vol] 108 mmol/L High 98-107 [facility] Comment on above: Order Comment: Speci men Type: BLOOD SPECIMEN Ordering Facility: [facility] Address: [address] [place] [address] Performed By: #### 2 4323-8, , 2776-08 #### [facility] CLIA [id number] [address] [place] [address] [place] CO2 [Moles/Vol] 23 mmol/L Normal 21-32 [facility] Comment on above: Order Comment: Speci men Type: BLOOD SPECIMEN Ordering Facility: [facility] Address: [address] [place] [address] Performed By: #### 2 4323-8, , 2776-08 #### [facility] CLIA [id number] [address] [place], [place] [address] [place] Creatinine [Mass/Vol] 0.61 mg/dL Normal 0.51-0.95 [facility] Comment on above: Order Comment: Speci men Type: BLOOD SPECIMEN Ordering Facility: [facility] Address: [address] [place], [place] [address] Result Comment: Ernestine ents receiving either N-Acetylcysteine (NAC) or Metamizole prior to venipuncture, may have falsely depressed results. Performed By: #### 2 4323-8, , 2776-08 #### [facility] CLIA [id number] [address] [place], [place] [id number] [place] Creatinine and Glomerular filtration rate.predicted panel (S/P/Bld) 132 mL/min/1.73m??? Normal >=60 [facility] Comment on above: Order Comment: Ryan spain Type: BLOOD SPECIMEN Ordering Facility: [facility] Address: [address] [place] [address] Result Comment: Meeta mated Glomerular Filtration Rate [...] actual GFR. Performed By: #### 2 4323-8, 78460-9, 2776- #### [facility] CLIA [id number] [address] [place], [place] [id number] [place] Glucose [Mass/Vol] 120 mg/dL High 70-100 [facility] Comment on above: Order Comment: Ryan spain Type: BLOOD SPECIMEN Ordering Facility: [facility] Address: [address] [place] [address] Result Comment: The [place] Diabetes Association (ADA) provides guidance for cutoff [...] Standards of Medical Care in Diabetes 2016, [place] Diabetes Association. Diabetes Care. 2016.39(Suppl 1). Results may be falsely elevated after the administration of Sulfapyridine. Results may be falsely depressed after the administration of Sulfasalazine. Performed By: #### 2 4323-8, 96820-1, 2776- #### [facility] CLIA [id number] [address] [place], [place] [address] [place] Potassium [Moles/Vol] 4.1 mmol/L Normal 3.5-5.1 [facility] Comment on above: Order Comment: Speci men Type: BLOOD SPECIMEN Ordering Facility: [facility] Address: [facility] [place] [address] Performed By: #### 2 4323-8, , 2776-08 #### [facility] CLIA [id number] [address] [place] [address] [place] Protein [Mass/Vol] 8.1 g/dL Normal 6.0-8.5 [facility] Comment on above: Order Comment: Speci men Type: BLOOD SPECIMEN Ordering Facility: [facility] Address: [address] [place] [address] Performed By: #### 2 4323-8, , 2776-08 #### [facility] CLIA [id number] [address] [place] [address] [place] [facility] Sodium [Moles/Vol] 140 mmol/L Normal 136-145 [facility] Comment on above: Order Comment: Speci men Type: BLOOD SPECIMEN Ordering Facility: [facility] Address: [address] [place] [address] Performed By: #### 2 4323-8, , 2776-08 #### [facility] CLIA [id number] [address] [place] [address] [place] Urea nitrogen [Mass/Vol] 15 mg/dL Normal 7-26 [facility] Comment on above: Order Comment: Speci men Type: BLOOD SPECIMEN Ordering Facility: [facility] Address: [address] [place], [place] [address] Performed By: #### 2 4323-8, , 2776-08 #### [facility] CLIA [id number] [address] [place], [place] [address] [place] HISTORY PHYSICALon HISTORY PHYSICAL HNO ID: [id number] Author: GUSTAVO CHAN MD Service: Hospital Medicine Author Type: Physician Type: H&P Filed: 04/24/2024 10:36 Note Text: HISTORY AND PHYSICAL EXAMINATION SERVICE DATE: 04/24/2024 SERVICE TIME: 9:46 PM PRIMARY CARE PHYSICIAN: Mitzy Fung MD, MD CHIEF COMPLAINT: Sore throat/dysphagia HPI: This is a 19 year old female with a past medical history of ADHD, PCOS, asthma, URIEL. Patient was transferred from [facility] today for concerns of 2 cm right peritonsillar abscess. Of note patient recently had a dental extraction at [facility] approximately 1 week ago due to concerns for infection was given p.o. cefdinir and Keflex however patient started having dysphagia associated with sore throat and went to [facility]. At [facility] patient was given IV clindamycin and IV Decadron in the ED. Due to [facility] not having ENT onsite patient was transferred here at [facility] for further ENT management as [...] Routine labs (more content not included)... Normal [facility] Magnesium [facility]-ncon 04-24 Magnesium [Mass/Vol] 2.2 mg/dL Normal 1.6-2.6 [facility] Comment on above: Order Comment: Speci grabiel Type: BLOOD SPECIMEN Ordering Facility: [facility] Address: [address] [place] [address] Performed By: #### 2 4323-8, 73742-8, 2776-08 #### [facility] CLIA [id number] [address] [place] [address] [place] Phosphate [facility]24 Phosphate [Mass/Vol] 3.8 mg/dL Normal 2.5-4.9 [facility] Comment on above: Order Comment: Maria Ci grabiel Type: BLOOD SPECIMEN Ordering Facility: [facility] Address: [address] [place] [address] Result Comment: Elev ated m-protein (paraprotein) levels in the serum may be exhibited in patients with monoclonal gammopathies, causing falsely elevated inorganic phosphorus results. Performed By: #### 2 4323-8, 51846-6, 2777-1 #### [facility] CLIA [id number] [address] [place] [address] [place] Progress Noteon 04-20-2024 Treater Authentication Interface Message Text Patient ID: Luis [...] cm, weight 57.6 kg, SpO2 100%. Normal [facility] 12 Lead EKGon 2024 12 Lead EKG [facility] [address] [place] [address] 12 Lead EKG 04/17/24 0305 MR#: [id number] Acct: [id number] Name: LUIS BARAJAS Rep #: [id number] : 2005 19 From: Andrés Faith MD [...] tracing Baseline artifact Confirmed by Andrés Faith ([id number]), art editor IVONNE MAHAJAN ([id number]) on 04/18/2024 10:56:34 AM Referred By: LINNEA Confirmed By:Andrés Faith 04/18/24 1056 Date Andrés Faith MD CC: Dr. Mitzy Fung MD; Teodoro Garcia DO Signed Normal [facility] Basic Metabolic Profile (BMP )on 2024 BUN/CRE 12.7 RATIO Normal 10-20 [facility] Comment on above: Order Comment: 'TROP ' Serial specimen #1, #2 or #3: 1 Performed By: #### L 501.4020, L300.8000, L100.0100, L500.2500, L501.5200 #### [facility] [address] [place], [address] CA,Total 9.4 mg/dL Normal 8.5-10.1 [facility] Comment on above: Order Comment: 'TROP ' Serial specimen #1, #2 or #3: 1 Performed By: #### L 501.4020, L300.8000, L100.0100, L500.2500, L501.5200 #### [facility] [address] [place], [address] Chloride [Moles/Vol] 106 mmol/L Normal 98-107 [facility] Comment on above: Order Comment: 'TROP ' Serial specimen #1, #2 or #3: 1 Performed By: #### L 501.4020, L300.8000, L100.0100, L500.2500, L501.5200 #### [facility] [address] [place], [address] CO2 [Moles/Vol] 25.0 mmol/L Normal 21.0-32.0 [facility] Comment on above: Order Comment: 'TROP ' Serial specimen #1, #2 or #3: 1 Performed By: #### L 501.4020, L300.8000, L100.0100, L500.2500, L501.5200 #### [facility] [address] [place], [address] Creatinine [Mass/Vol] 0.87 mg/dL Normal 0.55-1.02 [facility] Comment on above: Order Comment: 'TROP ' Serial specimen #1, #2 or #3: 1 Result Comment: The validity of the calculated GFR GFRAA in patients over 70 years has not been determined. Clinical correlation is essential. Performed By: #### L 501.4020, L300.8000, L100.0100, L500.2500, L501.5200 #### [facility] [address] [place], [address] ECRCL 93.59 ml/min Normal [facility] Comment on above: Order Comment: 'TROP ' Serial specimen #1, #2 or #3: 1 Performed By: #### L 501.4020, L300.8000, L100.0100, L500.2500, L501.5200 #### [facility] [address] [place], [address] EST GFR - AA 108 mL/min Normal >60 [facility] Comment on above: Order Comment: 'TROP ' Serial specimen #1, #2 or #3: 1 Result Comment: Afri can Thai GFR Calc Performed By: #### L 501.4020, L300.8000, L100.0100, L500.2500, L501.5200 #### [facility] [address] [place], [address] GAP 8 Normal 5-15 [facility] Comment on above: Order Comment: 'TROP ' Serial specimen #1, #2 or #3: 1 Performed By: #### L 501.4020, L300.8000, L100.0100, L500.2500, L501.5200 #### [facility] [address] [place], [address] GFR/1.73 sq M.predicted among non-blacks MDRD (S/P/Bld) [Vol rate/Area] 90 mL/min/{1.73_m2} Normal >60 [facility] Comment on above: Order Comment: 'TROP ' Serial specimen #1, #2 or #3: 1 Result Comment: Non- GFR Calc Performed By: #### L 501.4020, L300.8000, L100.0100, L500.2500, L501.5200 #### [facility] [address] [place], [address] Glucose [Mass/Vol] 73 mg/dL Low 74-106 [facility] Comment on above: Order Comment: 'TROP ' Serial specimen #1, #2 or #3: 1 Performed By: #### L 501.4020, L300.8000, L100.0100, L500.2500, L501.5200 #### [facility] [address] [place], [address] Potassium [Moles/Vol] 3.2 mmol/L Low 3.5-5.1 [facility] Comment on above: Order Comment: 'TROP ' Serial specimen #1, #2 or #3: 1 Performed By: #### L 501.4020, L300.8000, L100.0100, L500.2500, L501.5200 #### [facility] [address] [place], [address] Sodium [Moles/Vol] 139 mmol/L Normal 136-145 [facility] Comment on above: Order Comment: 'TROP ' Serial specimen #1, #2 or #3: 1 Performed By: #### L 501.4020, L300.8000, L100.0100, L500.2500, L501.5200 #### [facility] [address] [place], [address] Urea nitrogen [Mass/Vol] 11 mg/dL Normal 7-18 [facility] Comment on above: Order Comment: 'TROP ' Serial specimen #1, #2 or #3: 1 Performed By: #### L 501.4020, L300.8000, L100.0100, L500.2500, L501.5200 #### [facility] [address] [place], [address] CBC W/Diff, Automatedon 03-25 Absolute Lymph 3.76 X10 3/uL Normal 0.83-4.51 [facility] Comment on above: Performed By: #### L 501.4020, L300.8000, L100.0100, L500.2500, L501.5200 #### [facility] [address] [place], [address] Absolute Neut 4.9 X10 3/uL Normal 2.0-7.7 [facility] Comment on above: Performed By: #### L 501.4020, L300.8000, L100.0100, L500.2500, L501.5200 #### [facility] [address] [place], [address] Basophils/100 WBC (Bld) 0.5 % Normal 0-1 [facility] Comment on above: Performed By: #### L 501.4020, L300.8000, L100.0100, L500.2500, L501.5200 #### [facility] [address] [place], [address] Eosinophils/100 WBC (Bld) 1.4 % Normal 0-5 [facility] Comment on above: Performed By: #### L 501.4020, L300.8000, L100.0100, L500.2500, L501.5200 #### [facility] [address] [place], [address] Erythrocyte distribution width (RBC) [Ratio] 11.9 % Normal 11.6-14.6 [facility] Comment on above: Performed By: #### L 501.4020, L300.8000, L100.0100, L500.2500, L501.5200 #### [facility] [address] [place], [address] Hematocrit (Bld) [Volume fraction] 36.0 % Low 37-47 [facility] Comment on above: Performed By: #### L 501.4020, L300.8000, L100.0100, L500.2500, L501.5200 #### [facility] [address] [place], [address] Hemoglobin (Bld) [Mass/Vol] 11.6 g/dL Low 12.0-15.0 [facility] Comment on above: Performed By: #### L 501.4020, L300.8000, L100.0100, L500.2500, L501.5200 #### [facility] [address] [place], [address] IG% 0.300 Normal 0.0-0.9 [facility] Comment on above: Result Comment: IG% - Immature Granulocytes (promyelocytes, myelocytes and metamyelocytes) > 1% indicates that a LEFT SHIFT is Present. Performed By: #### L 501.4020, L300.8000, L100.0100, L500.2500, L501.5200 #### [facility] [address] [place], [address] Lymphocytes/100 WBC (Bld) 38.3 % Normal 19-41 [facility] Comment on above: Performed By: #### L 501.4020, L300.8000, L100.0100, L500.2500, L501.5200 #### [facility] [address] [place], [address] MCH (RBC) [Entitic mass] 28.3 pg Normal 27.0-32.0 [facility] Comment on above: Performed By: #### L 501.4020, L300.8000, L100.0100, L500.2500, L501.5200 #### [facility] [address] [place], [address] MCHC (RBC) [Mass/Vol] 32.2 g/dL Normal 32-36 [facility] Comment on above: Performed By: #### L 501.4020, L300.8000, L100.0100, L500.2500, L501.5200 #### [facility] [address] [place], [address] MCV (RBC) [Entitic vol] 87.8 fL Normal 81-99 [facility] Comment on above: Performed By: #### L 501.4020, L300.8000, L100.0100, L500.2500, L501.5200 #### [facility] [address] [place], [address] Monocytes/100 WBC (Bld) 9.3 % Normal 0-10 [facility] Comment on above: Performed By: #### L 501.4020, L300.8000, L100.0100, L500.2500, L501.5200 #### [facility] [address] [place], [address] Neutrophils/100 WBC (Bld) 50.2 % Normal 47-70 [facility] Comment on above: Performed By: #### L 501.4020, L300.8000, L100.0100, L500.2500, L501.5200 #### [facility] [address] [place], [address] Nucleated RBC (Bld) [#/Vol] 0 10*3/uL Normal 0-5 [facility] Comment on above: Performed By: #### L 501.4020, L300.8000, L100.0100, L500.2500, L501.5200 #### [facility] [address] [place], [address] Platelet mean volume (Bld) [Entitic vol] 10.3 fL Normal 6.2-12.0 [facility] Comment on above: Performed By: #### L 501.4020, L300.8000, L100.0100, L500.2500, L501.5200 #### [facility] [address] [place], [address] Platelets (Bld) [#/Vol] 305 10*3/uL Normal 150-450 [facility] Comment on above: Performed By: #### L 501.4020, L300.8000, L100.0100, L500.2500, L501.5200 #### [facility] [address] [place], [address] RBC (Bld) [#/Vol] 4.10 10*6/uL Low 4.2-5.4 [facility] Comment on above: Performed By: #### L 501.4020, L300.8000, L100.0100, L500.2500, L501.5200 #### [facility] [address] [place], [address] RDW SD 38.3 fl Normal 35.1-43.9 [facility] Comment on above: Performed By: #### L 501.4020, L300.8000, L100.0100, L500.2500, L501.5200 #### [facility] [address] [place], [address] WBC (Bld) [#/Vol] 9.8 10*3/uL Normal 4.4-11.0 [facility] Comment on above: Performed By: #### L 501.4020, L300.8000, L100.0100, L500.2500, L501.5200 #### [facility] [address] [place], [place], [address] CTA Chest W/WO Contraston CTA Chest W/WO Contrast [facility] Imaging Services [address] [place] [address] CTA Chest W/WO Contrast MR#: [id number] Acct: [id number] Name: LUIS BARAJAS Rep #: [id number] : 2005 F 19 From: Sal Nobles MD PCP: Dr. Mitzy Fung MD Status: REG ER Study: CTA Chest W/WO Contrast Date of Exam: 04/17/24 Exam# [id number] Ordering Dr: Teodoro Garcia DO [id number] STUDY: CTA CHEST REASON FOR EXAM: [...] Dr. Mitzy Fung MD; Teodoro Garcia DO Remarketing Rep: Signed Normal [facility] Chest PA and Lateralon 04-17 Chest PA and Lateral [facility] Imaging Services [address] [place] [address] Chest PA and Lateral MR#: [id number] Acct: [id number] Name: LUIS BARAJAS Rep #: [id number] : 2005 F 19 From: Sal Nobles MD PCP: Dr. Mitzy Fung MD Status: REG ER Study: Chest PA and Lateral Date of Exam: 04/17/24 Exam# [id number] Ordering Dr: Teodoro Garcia DO [id number] INDICATION: chest pain EXAMINATION/TECHNIQ UE: X-RAY [...] Dr. Mitzy Fung MD; Teodoro Garcia DO Remarketing Rep: Signed Normal [facility] D-Dimer Quantitative (DVT/PE )on 2024 D-DIMER QUANT 0.55 FEU/ug/m Invalid Interpretation Code 0.27-0.49 [facility] Comment on above: Result Comment: D-Di vicente ELEVATED (>0.49): Additional studies and clinical assessments are indicated to conclude diagnosis of: Deep Vein Thrombosis (DVT) or Pulmonary Embolism (PE) CRITICAL VALUE VERIFIED. CALLED TO LSPARR 04/17/24 0350 Ivonne Artis. RESULTS READ BACK BY SAME. Performed By: #### L 501.4020, L300.8000, L100.0100, L500.2500, L501.5200 #### [facility] [address] [facility] [place], [address] Emergency Department Summary on 2024 Emergency Department Summary [facility] Medical Records Department [address] [place] [address] Emergency Department Summary 04/17/24 MR#: [id number] Acct: [id number] Name: LUIS BARAJAS Rep #: [id number] : 2005 19 From: Teodoro Garcia DO [...] persistent pain she comes in for evaluation [facility] Medical History Wears glasses Bipolar disorder Anxiety [...] to auscul (more content not included)... Normal [facility] L501.4020on 2024 TROPONIN-I HS < 3 Low 3.0-54.0 [facility] Comment on above: Order Comment: 'TROP ' Serial specimen #1, #2 or #3: 1 Result Comment: Antonio castro Note: New Test Units and Gender Specific Reference Ranges. For more information see Policy Stat Procedure [place] High Sensitivity Troponin (TNIH) and attachments. Performed By: #### L 501.4020, L300.8000, L100.0100, L500.2500, L501.5200 #### [facility] [address] [place], [address] Magnesiumon 2024 Magnesium [Mass/Vol] 2.1 mg/dL Normal 1.6-2.6 [facility] Comment on above: Order Comment: 'TROP ' Serial specimen #1, #2 or #3: 1 Performed By: #### L 501.4020, L300.8000, L100.0100, L500.2500, L501.5200 #### [facility] [address] [place], [address] Urinalysis, Completeon 04-17 EPI,SQUAMOUS 0-5 SEEN Normal 5-10 [facility] Comment on above: Order Comment: CLEAN CATCH Performed By: #### L 400.0001 #### [facility] [address] [place], [address] WBC 0-5 SEEN Normal 0-5 [facility] Comment on above: Order Comment: CLEAN CATCH Performed By: #### L 400.0001 #### [facility] [address] [place], [address] BACTERIA 0 SEEN Normal None Seen [facility] Comment on above: Order Comment: CLEAN CATCH Performed By: #### L 400.0001 #### [facility] [address] [place], [address] Mucus Ql (Urine sed) 0 SEEN Normal [facility] Comment on above: Order Comment: CLEAN CATCH Performed By: #### L 400.0001 #### [facility] [address] [place], [address] RBC 0 SEEN Normal 0-5 [facility] Comment on above: Order Comment: CLEAN CATCH Performed By: #### L 400.0001 #### [facility] [address] [place], [address] Emergency Department Summary on 04-12-2024 Emergency Department Summary [facility] Medical Records Department [address] [place] [address] Emergency Department Summary 04/12/24 MR#: [id number] Acct: [id number] Name: LUIS BARAJAS Rep #: [id number] : 2005 18 From: Javier Isabel DO [...] denies any difficulty breathing or difficulty swallowing. [facility] Medical History Wears glasses Bipolar disorder Anxiety [...] infected d (more content not included)... Normal [facility] CNOVon 01-26-2024 CNOV Office Visit (UCWSTR) ---- LUIS BARAJAS ([id number]) 5 F Date Time Provider Department 01/26/24 4:30 PM MARTÍNEZ LYLES WSTR During your visit today, we recorded the following information about you: Temperature Pulse Respiration Blood pressure 97.9 degrees 80/minute 16/minute 102/60 Weight 60 kg Martínez Lyles, CONING MACHINE OPERATOR.GARMENT INSPECTOR 01/26/2024 4:37 PM Signed This note was created using [employer]. Subjective Luis Barajas is a 18 year [...] Tylenol as needed for pain. Martínez Lyles APRN.GARMENT INSPECTOR Allergies As of Date: 01/26/2024 (No Known Allergies) Date Reviewed: 01/26/2024 Reviewed by: Martínez Lyles APRN.GARMENT INSPECTOR - Fully Assessed Reason for Visit: Ear [...] MARTÍNEZ LYLES on 01/26/24 Normal [facility] Bacteria Ur Culton 4 Bacteria identified [...] >32 , Resistant >64 Abnormal [facility] Comment on above: Performed By: #### 6 30-4 ####[facility] LABCLIA [id number] [address] OF [facility] CNOVon 12-29-2023 CNOV Office Visit ([facility]WSTR) ---- LUIS BARAJAS ([id number]) 5 F Date Time Provider Department 12/29/23 4:45 PM JASMIN ENRIQUEZ UCWSTR During your visit today, we recorded the following information about you: Temperature Pulse Respiration Blood pressure 97.3 degrees 94/minute 18/minute 129/79 Weight Last Period 58.6 kg 12/24/23 Jasmin Enriquez, ALEX.GARMENT INSPECTOR 12/29/2023 5:06 PM Signed ASSESSMENT/PLAN: 1. Burning [...] Discussed expected course of illness Jasmin Enriquez APRN.GARMENT INSPECTOR [facility] C[facility] PATIENT INFO BLADDER INFECTION OVERVIEW Bladder [...] (more content not included)... Normal [facility] UA DIP, URINE (POC)on 2023 BILIRUBIN UA (POCT) Negative Negative [facility] CLARITY UA (POCT) Slightly Cloudy Cl [facility] COLOR UA (POCT) Yellow [facility] GLUCOSE UA (POCT) Negative Negative mg/dL [facility] Hemoglobin Ql (U) Large Abnormal Negative [facility] Interpretation and review of laboratory results Abnormal [facility] KETONE UA (POCT) Negative Negative mg/dL [facility] LEUKOCYTES UA (POCT) Moderate Abnormal Negative [facility] NITRITE UA (POCT) Negative Negative [facility] PH UA (POCT) 7.0 4.5 - 8.0 [facility] Protein Ql (U) 30 mg/dL Abnormal Negative [facility] SPECIFIC GRAVITY UA (POCT) 1.020 1.005 - 1.030 [facility] UROBILINOGEN UA (POCT) 0.2 Normal E.U./d L [facility] Location:[facility], [address] [place] [address], [place], [address] [facility] POINT OF CARE [facility] Laboratory - Chemistry and C hemistry - challengeOrdered By: Leny Ruano on 12-24-2023 HCG ( test) Ql (U) Negative [facility] Comment on above: Very dilute urine sp ecimens, as indicated by a low specificgravity, may not contain industrial relations representative levels of hCG. If is still suspected, a first morning urinespecimen should be collected 48 hours later and tested. Absolute lymphocyte countOrd ered By: Alexissultana Farfan on 11-14-2023 Lymphocytes Auto (Unsp spec) [#/Vol] 2.23 10*3/uL 0.83-4.51 [facility] Automated lymphocyte count a s percentage of total leukocytesOrdered By: Alexissultana Farfan on 11-14-2023 Lymphocytes/100 WBC Auto (Unsp spec) 27.1 % 25-45 [facility] Basophil percentageOrdered B y: Alexis Farfan on 11-14-2023 Basophils/100 WBC (Bld) 0.7 % 0-1 [facility] Chloride [Moles/Vol] 110 mmol/L 98-107 [facility] Eosinophils/100 WBC (Bld) 1.7 % 0-3 [facility] Glucose [Mass/Vol] 82 mg/dL 74-106 [facility] Hemoglobin (Bld) [Mass/Vol] 12.3 g/dL 12.0-15.0 [facility] Monocytes/100 WBC (Bld) 5.1 % 3-6 [facility] Neutrophils (Bld) [#/Vol] 5.4 10*3/uL 2.0-7.7 [facility] Neutrophils/100 WBC (Bld) 65.2 % 34-64 [facility] Potassium [Moles/Vol] 3.9 mmol/L 3.5-5.1 [facility] Sodium [Moles/Vol] 140 mmol/L 136-145 [facility] WBC (Bld) [#/Vol] 8.2 10*3/uL 4.5-13.0 [facility] Basophil percentageOrdered B y: Lexie Heredia on 11-14-2023 Basophil percentage 25-50 SEEN /hpf 0-5 [facility] Bilirubin Test strip Ql (U)O rdered By: Lexie Heredia on 11-14-2023 Bilirubin Ql (U) Negative Negative [facility] CNOVon 11-14-2023 CNOV Office Visit ([facility]WSTR) ---- LUIS BARAJAS ([id number]) 5 F Date Time Provider Department 11/14/23 12:15 PM LONI ESCOBAR [email or web address]TR During your visit today, we recorded the following information about you: Temperature Pulse Respiration Blood pressure 97.5 degrees 74/minute 21/minute 120/62 Weight 60.9 kg Loni Escobar APRN.GARMENT INSPECTOR 11/14/2023 12:51 PM Signed Complaints of severe right flank pain. Patient says she has passed 2 hard Garrett objects through her urethra. Patient says she [...] Diagnosis:Flank pain [R10.9] Order(s):UA DIP, URINE (POC) [9975595] Order #: [id number] #:[id number] Prescriptions as of 11/14/2023 - cabergoline (DOSTINEX) [...] LONI ESCOBAR on 11/14/23 Normal [facility] Culture, urineOrdered By: Daryl Farfan on 11-14-2023 Bacteria identified Cx Nom (U) Presumptive E. coli [facility] Determination of erythrocyte mean corpuscular volume (MCV)Ordered By: Alexis Farfan on 11-14-2023 MCV (RBC) [Entitic vol] 87.9 fL 78-96 [facility] Erythrocyte distribution wid th ratioOrdered By: Alexis Farfan on 11-14-2023 Erythrocyte distribution width (RBC) [Ratio] 12.0 % 11.6-14.6 [facility] Erythrocyte distribution wid th standard deviationOrdered By: Alexissultana Farfan on 11-14-2023 Erythrocyte distribution width (RBC) [Entitic vol] 39.1 fL 35.1-43.9 [facility] Hematocrit Auto (Bld) [Volum e fraction]Ordered By: Alexis Farfan on 11-14-2023 Hematocrit (Bld) [Volume fraction] 38.6 % 37-46 [facility] Immature granulocytes/100 WB C Auto (Bld)Ordered By: Alexis Farfan on 11-14-2023 Immature granulocytes/100 WBC (Bld) 0.200 % 0.0-0.9 [facility] Comment on above: IG% - Immature Granu locytes (promyelocytes, myelocytes and metamyelocytes) > 1% indicates that a LEFT SHIFT is Present. Ketones Test strip Ql (U)Ord ered By: Lexie Heredia on 11-14-2023 Ketones Ql (U) 5 mg/dl Negative [facility] Laboratory - Chemistry and C hemistry - challengeOrdered By: Alexis Farfan on 11-14-2023 CO2 [Moles/Vol] 26.0 mmol/L 21.0-32.0 [facility] Urea nitrogen/Creatinine [Mass ratio] 15.0 mg/mg 10-20 [facility] Laboratory - Hematology and Cell countsOrdered By: Alexis Farfan on 11-14-2023 MCH (RBC) [Entitic mass] 28.0 pg 25.0-35.0 [facility] MCHC (RBC) [Mass/Vol] 31.9 g/dL 32- [facility] Nucleated RBC/100 WBC (Bld) [Ratio] 0 % 0-5 [facility] Platelet mean volume (Bld) [Entitic vol] 9.8 fL 6.2-12.0 [facility] Platelets (Bld) [#/Vol] 298 10*3/uL 150-450 [facility] Mucus LM Ql (Urine sed)Order ed By: Lexie Heredia on 11-14-2023 Mucus Ql (Urine sed) 0 SEEN /hpf [facility] Nitrite Test strip Ql (U)Ord ered By: Lexie Heredia on 11-14-2023 Nitrite Ql (U) Positive Negative [facility] No Panel InformationOrdered By: Alexis Farfan on 11-14-2023 Estimated Creatinine Clearance Calc 102.62 ml/min [facility] Estimated GFR (MDRD) Amer 120 mL/min >60 [facility] Comment on above: GFR Calc Estimated GFR (MDRD) Non-Af Amer 99 mL/min >60 [facility] Comment on above: Non- GFR Calc No Panel InformationOrdered By: Lexie Heredia on 11-14-2023 Urine RBC 0-5 SEEN /hpf 0-5 [facility] Protein Test strip Ql (U)Ord ered By: Lexie Heredia on 11-14-2023 Protein Ql (U) 30 mg/dl Negative [facility] RBC Auto (Bld) [#/Vol]Ordere d By: Alexis Farfan on 11-14-2023 RBC (Bld) [#/Vol] 4.39 10*6/uL 4.1-4.8 [facility] Serum or plasma calcium vel urement (mass/volume)Ordered By: Alexis Farfan on 11-14-2023 Calcium [Mass/Vol] 8.8 mg/dL 8.5-10.1 [facility] Serum or plasma choriogonado tropin detectionOrdered By: Alexis Farfan on 11-14-2023 HCG ( test) Ql Negative [facility] Serum or plasma creatinine m easurement (mass/volume)Ordered By: Alexis Farfan on 11-14-2023 Creatinine [Mass/Vol] 0.80 mg/dL 0.55-1.02 [facility] Comment on above: The validity of the calculated GFR & GFRAA in patients over 70 years has not been determined. Clinical correlation is essential. Serum or plasma urea nitroge n measurement (mass/volume)Ordered By: Alexis Farfan on 11-14-2023 Urea nitrogen [Mass/Vol] 12 mg/dL 7-18 [facility] Squamous epithelial cells de tection in urine sediment by light microscopyOrdered By: Lexie Heredia on 11-14-2023 Epithelial cells.squamous LM Ql (Urine sed) 0-5 SEEN /hpf 5-10 [facility] Thin prep Papanicolaou smear with manual screeningOrdered By: Alexis Farfan on 11-14-2023 Thin prep Papanicolaou smear with manual screening 4 5-15 [facility] UA DIP, URINE (POC)on 2023 BILIRUBIN UA (POCT) Negative Negative [facility] CLARITY UA (POCT) Slightly Cloudy Cl [facility] COLOR UA (POCT) Yellow [facility] GLUCOSE UA (POCT) Negative Negative mg/dL [facility] Hemoglobin Ql (U) Trace-intact Abnormal Negative [facility] KETONE UA (POCT) Trace Negative mg/dL [facility] LEUKOCYTES UA (POCT) Small Abnormal [facility] NITRITE UA (POCT) Positive Abnormal Negative [facility] PH UA (POCT) 6.0 4.5 - 8.0 [facility] Protein Ql (U) 30 mg/dL Abnormal Negative mg/dL [facility] SPECIFIC GRAVITY UA (POCT) 1.025 1.005 - 1.030 [facility] UROBILINOGEN UA (POCT) 1.0 E.U./dL Normal E.U./ dL [facility] Urine blood detectionOrdered By: Lexie Heredia on 11-14-2023 RBC Ql (U) 25 /ul Negative [facility] Urine clarityOrdered By: Alexa Heredia on 11-14-2023 Clarity (U) Sl. Cloudy Clear [facility] Urine color determinationOrd ered By: Lexie Heredia on 11-14-2023 Color (U) Yellow Yellow [facility] Urine glucose detectionOrder ed By: Lexie Heredia on 11-14-2023 Glucose Ql (U) Normal mg/dl Normal [facility] Urine leukocyte esterase det ection by dipstickOrdered By: Lexie Heredia on 11-14-2023 Leukocyte esterase Test strip Ql (U) 500 /ul Negative [facility] Urine pHOrdered By: Lexie watts on 11-14-2023 pH (U) 6.5 [pH] 5.0 - 8.0 [facility] Urine sediment bacteria coun t by microscopy (number/high power field)Ordered By: Lexie Heredia on 11-14-2023 Bacteria LM.HPF (Urine sed) [#/Area] 2 /[HPF] None Seen [facility] Urine specific gravity measu rementOrdered By: Lexie Heredia on 11-14-2023 Specific gravity (U) [Rel density] 1.015 1.002-1.030 [facility] Urine urobilinogen measureme ntOrdered By: Lexie Heredia on 11-14-2023 Urobilinogen Ql (U) 1 mg/dl Normal [facility] CNPNon 10-31-2023 CNPN Telephone ([facility]) ---- LUIS BARAJAS ([id number]) 5 F Date Time Provider Department 10/31/[address] [facility] During your visit today, we [...] Ariane DAVIS on 11/02/23 Normal [facility] BACTERIAL VAGINOSIS NAATon 0 10-30-2023 Lactobacillus crispatus+gasseri+jense javier + Gardnerella vaginalis + Atopobium vaginae rRNA JAIRON+probe Ql (Vag fld) Negative Normal Negative for bacterial vaginosis [facility] Comment on above: Order Comment: Speci men Type: SWABOrdering Facility: [facility] Address: [address] [place] [address] Performed By: #### B VAMP, CVTV ####[facility] LABCLIA [id number] [facility] [id number] [address] [place] Bacteria Ur Culton Bacteria identified Cx Nom (U) ORGANISM ID: [...] >32 , Resistant >64 Abnormal [facility] Comment on above: Performed By: #### 6 30-4 ####[facility] LABCLIA [id number] [place] [address] [place] PRINCE/TRICHOMONAS NAATon 0 10-30-2023 C. glabrata RNA JAIRON+probe Ql (Vag fld) Negative Normal Negative for Prince glabrata [facility] Comment on above: Order Comment: Speci men Type: SWABOrdering Facility: [facility] Address: [address] [place] [address] Performed By: #### B VAMP, CVTV ####[facility] LABCLIA [id number] [place] [address] [place] Prince sp DNA JAIRON+probe Ql (Vag fld) Positive Abnormal Negative for Prince species [facility] Comment on above: Order Comment: Speci men Type: SWABOrdering Facility: [facility] Address: [address] [place] [address] Performed By: #### B VAMP, CVTV ####[facility] LABCLIA [id number] [place] [address] [place] T. vaginalis DNA JAIRON+probe Ql (Unsp spec) Negative Normal Negative for Trichomonas vaginalis by amplification [facility] Comment on above: Order Comment: Speci men Type: SWABOrdering Facility: [facility] Address: [address] [facility] [place] [address] Performed By: #### B VAMP, CVTV ####[facility] LABCLIA [id number] [id number] OF [facility] CNOVon 10-30-2023 CNOV Office Visit (UCWSTR) ---- LUIS BARAJAS ([id number]) 5 F Date Time Provider Department 10/30/23 4:15 PM [address]ANCHEZ [facility] During your visit today, we recorded the following information about you: Temperature Pulse Respiration Blood pressure 97.8 degrees 102/minute 18/minute 114/74 Weight Last Period 58.8 kg 10/19/23 Lillian Sanchez APRN.GARMENT INSPECTOR 10/30/2023 4:18 PM Signed This note was created using [employer]. Subjective Luis Barajas is a 18 year [...] history is provided by the patient. No sign language translator was used. UTI This is a new [...] (more content not included)... Normal [facility] UA DIP, URINE (POC)on 2023 BILIRUBIN UA (POCT) Negative Negative [facility] CLARITY UA (POCT) Clear [facility] COLOR UA (POCT) Dark yellow [facility] GLUCOSE UA (POCT) Negative Negative mg/dL [facility] Hemoglobin Ql (U) Moderate Abnormal Negative [facility] KETONE UA (POCT) Negative Negative mg/dL [facility] LEUKOCYTES UA (POCT) Trace Abnormal Negative [facility] NITRITE UA (POCT) Negative Negative [facility] PH UA (POCT) 5.5 4.5 - 8.0 [facility] Protein Ql (U) 100 mg/dL Abnormal Negative mg/dL [facility] SPECIFIC GRAVITY UA (POCT) >=1.030 1.005 - 1.030 [facility] UROBILINOGEN UA (POCT) 0.2 E.U./dL Normal E.U./ dL [facility] UA DIP, URINE (POC)on 2022 BILIRUBIN UA (POCT) Negative Negative [facility] CLARITY UA (POCT) Clear [facility] COLOR UA (POCT) Yellow [facility] GLUCOSE UA (POCT) Negative Negative mg/dL [facility] Hemoglobin Ql (U) Negative Negative [facility] KETONE UA (POCT) Negative Negative mg/[facility] LEUKOCYTES UA (POCT) Trace Abnormal Negative [facility] NITRITE UA (POCT) Negative Negative [facility] PH UA (POCT) 6.5 4.5 - 8.0 [facility] Protein Ql (U) Negative Negative mg/dL [facility] SPECIFIC GRAVITY UA (POCT) 1.010 1.005 - 1.030 [facility] UROBILINOGEN UA (POCT) 1.0 E.U./dL Normal E.U./ dL [facility] Absolute lymphocyte countOrd ered By: ED PROVIDER on 07-04-2023 Lymphocytes Auto (Unsp spec) [#/Vol] 2.21 10*3/uL 0.83-4.51 [facility] Basophil percentageOrdered B y: ED PROVIDER on 07-04-2023 Basophils/100 WBC (Bld) 0.7 % 0-1 [facility] Eosinophils/100 WBC (Bld) 2.6 % 0-3 [facility] Neutrophils (Bld) [#/Vol] 4.0 10*3/uL 2.0-7.7 [facility] Neutrophils/100 WBC (Bld) 57.1 % 34-64 [facility] WBC (Bld) [#/Vol] 7.0 10*3/uL 4.5-13.0 [facility] Basophil percentageOrdered B y: Flor Seymour on 07-04-2023 Chloride [Moles/Vol] 108 mmol/L 98-107 [facility] Glucose [Mass/Vol] 79 mg/dL 74-106 [facility] Potassium [Moles/Vol] 4.3 mmol/L 3.5-5.1 [facility] Sodium [Moles/Vol] 139 mmol/L 136-145 [facility] Basophil percentage 0-5 SEEN /hpf 0-5 [facility] Beta hCG serum qualOrdered B y: Flor Seymour on 07-04-2023 Beta HCG ( test) Ql Negative [facility] Bilirubin Test strip Ql (U)O rdered By: Flor Seymour on 07-04-2023 Bilirubin Ql (U) Negative Negative [facility] Blood erythrocytes count (nu mber/volume)Ordered By: ED PROVIDER on 07-04-2023 RBC (Bld) [#/Vol] 4.54 10*6/uL 4.1-4.8 [facility] Blood hemoglobin measurement (mass/volume)Ordered By: ED PROVIDER on 07-04-2023 Hemoglobin (Bld) [Mass/Vol] 12.9 g/dL 12.0-15.0 [facility] Blood lymphocytes/100 leukoc ytesOrdered By: ED PROVIDER on 07-04-2023 Lymphocytes/100 WBC (Bld) 31.8 % 25-45 [facility] Blood monocytes/100 leukocyt esOrdered By: ED PROVIDER on 07-04-2023 Monocytes/100 WBC (Bld) 7.5 % 3-6 [facility] Blood platelet mean volumeOr dered By: ED PROVIDER on 07-04-2023 Platelet mean volume (Bld) [Entitic vol] 9.8 fL 6.2-12.0 [facility] Determination of erythrocyte mean corpuscular volume (MCV)Ordered By: ED PROVIDER on 07-04-2023 MCV (RBC) [Entitic vol] 89.0 fL 78-96 [facility] Hematocrit Auto (Bld) [Volum e fraction]Ordered By: ED PROVIDER on 07-04-2023 Hematocrit (Bld) [Volume fraction] 40.4 % 37-46 [facility] Ketones Test strip Ql (U)Ord ered By: Flor Seymour on 07-04-2023 Ketones Ql (U) 5 mg/dl Negative [facility] Laboratory - Chemistry and C hemistry - challengeOrdered By: Flor Seymour on 07-04-2023 CO2 [Moles/Vol] 29.0 mmol/L 21.0-32.0 [facility] Urea nitrogen/Creatinine [Mass ratio] 13.9 mg/mg 10-20 [facility] Laboratory - Hematology and Cell countsOrdered By: ED PROVIDER on 07-04-2023 Erythrocyte distribution width (RBC) [Entitic vol] 39.5 fL 35.1-43.9 [facility] Erythrocyte distribution width (RBC) [Ratio] 12.0 % 11.6-14.6 [facility] Immature granulocytes/100 WBC (Bld) 0.300 % 0.0-0.9 [facility] Comment on above: IG% - Immature Granu locytes (promyelocytes, myelocytes and metamyelocytes) > 1% indicates that a LEFT SHIFT is Present. MCH (RBC) [Entitic mass] 28.4 pg 25.0-35.0 [facility] Nucleated RBC/100 WBC (Bld) [Ratio] 0 % 0-5 [facility] MCHC Auto (RBC) [Mass/Vol]Or dered By: ED PROVIDER on 07-04-2023 MCHC (RBC) [Mass/Vol] 31.9 g/dL 32-36 [facility] Mucus LM Ql (Urine sed)Order ed By: Flor Seymour on 07-04-2023 Mucus Ql (Urine sed) 0 SEEN /hpf [facility] Nitrite Test strip Ql (U)Ord ered By: Flor Seymour on 07-04-2023 Nitrite Ql (U) Negative Negative [facility] No Panel InformationOrdered By: Flor Seymour on 07-04-2023 Estimated Creatinine Clearance Calc 83.81 ml/min [facility] Estimated GFR (MDRD) Amer 100 mL/min >60 [facility] Comment on above: GFR Calc Estimated GFR (MDRD) Non-Af Amer 83 mL/min >60 [facility] Comment on above: Non- GFR Calc Platelets bldOrdered By: ED PROVIDER on 07-04-2023 Platelets (Bld) [#/Vol] 315 10*3/uL 150-450 [facility] Protein Test strip Ql (U)Ord ered By: Flor Seymour on 07-04-2023 Protein Ql (U) 30 mg/dl Negative [facility] Serum or plasma calcium vel urement (mass/volume)Ordered By: Flor Seymour on 07-04-2023 Calcium [Mass/Vol] 9.2 mg/dL 8.5-10.1 [facility] Serum or plasma creatinine m easurement (mass/volume)Ordered By: Flor Seymour on 07-04-2023 Creatinine [Mass/Vol] 0.94 mg/dL 0.55-1.02 [facility] Comment on above: The validity of the calculated GFR & GFRAA in patients over 70 years has not been determined. Clinical correlation is essential. Serum or plasma urea nitroge n measurement (mass/volume)Ordered By: Flor Seymour on 07-04-2023 Urea nitrogen [Mass/Vol] 13 mg/dL 7-18 [facility] Squamous epithelial cells de tection in urine sediment by light microscopyOrdered By: Flor Seymour on 07-04-2023 Epithelial cells.squamous LM Ql (Urine sed) 0-5 SEEN /hpf 5-10 [facility] Thin prep Papanicolaou smear with manual screeningOrdered By: Flor Seymour on 07-04-2023 Thin prep Papanicolaou smear with manual screening 2 5-15 [facility] Urine blood detectionOrdered By: Flor Seymour on 07-04-2023 RBC Ql (U) 250 /ul Negative [facility] RBC Ql (U) 10-25 SEEN /hpf 0-5 [facility] Urine clarityOrdered By: Nataliia Seymour on 07-04-2023 Clarity (U) Clear Clear [facility] Urine color determinationOrd ered By: Folr Seymour on 07-04-2023 Color (U) Yellow Yellow [facility] Urine glucose detectionOrder ed By: Flor Seymour on 07-04-2023 Glucose Ql (U) Normal mg/dl Normal [facility] Urine leukocyte esterase det ection by dipstickOrdered By: Flor Seymour on 07-04-2023 Leukocyte esterase Test strip Ql (U) 100 /ul Negative [facility] Urine pHOrdered By: Flor Seymour on 07-04-2023 pH (U) 6.0 [pH] 5.0 - 8.0 [facility] Urine sediment bacteria coun t by microscopy (number/high power field)Ordered By: Flor Seymour on 07-04-2023 Bacteria LM.HPF (Urine sed) [#/Area] 0 /[HPF] None Seen [facility] Urine specific gravity measu rementOrdered By: Flor Seymour on 07-04-2023 Specific gravity (U) [Rel density] 1.015 1.002-1.030 [facility] Urobilinogen Auto test strip Ql (U)Ordered By: Flor Seymour on 07-04-2023 Urobilinogen Ql (U) 1 mg/dl Normal [facility] Culture, urineOrdered By: Payal Clements on 03-27-2023 Bacteria identified Cx Nom (U) Presumptive E. coli [facility] Basophil percentageOrdered B y: Mara Clements on 03-19-2023 Bilirubin [Mass/Vol] 0.60 mg/dL 0.20-1.00 [facility] Comment on above: For patients on eltr ombopag therapy, use of Dimension [place] TBIL is not recommended. Chloride [Moles/Vol] 106 mmol/L 98-107 [facility] Glucose [Mass/Vol] 88 mg/dL 74-106 [facility] Potassium [Moles/Vol] 3.7 mmol/L 3.5-5.1 [facility] Protein [Mass/Vol] 8.4 g/dL 6.4-8.2 [facility] Sodium [Moles/Vol] 139 mmol/L 136-145 [facility] WBC (Bld) [#/Vol] 7.3 10*3/uL 4.5-13.0 [facility] Blood erythrocytes count (nu mber/volume)Ordered By: Mara Clements on 03-19-2023 RBC (Bld) [#/Vol] 5.02 10*6/uL 4.1-4.8 [facility] Blood hemoglobin measurement (mass/volume)Ordered By: Mara Clements on 03-19-2023 Hemoglobin (Bld) [Mass/Vol] 14.5 g/dL 12.0-15.0 [facility] Blood platelet mean volumeOr dered By: Mara Clements on 03-19-2023 Platelet mean volume (Bld) [Entitic vol] 9.9 fL 6.2-12.0 [facility] Determination of erythrocyte mean corpuscular volume (MCV)Ordered By: Mara Clements on 03-19-2023 MCV (RBC) [Entitic vol] 85.5 fL 78-96 [facility] Hematocrit Auto (Bld) [Volum e fraction]Ordered By: Mara Clements on 03-19-2023 Hematocrit (Bld) [Volume fraction] 42.9 % 37-46 [facility] Laboratory - Chemistry and C hemistry - challengeOrdered By: [facility] ALP [Catalytic activity/Vol] 61 U/L 47-119 [facility] ALT [Catalytic activity/Vol] 13 U/L 13-56 [facility] CO2 [Moles/Vol] 22.0 mmol/L 21.0-32.0 [facility] Free T4 [Mass/Vol] 1.47 ng/dL 0.76-1.46 [facility] Globulin (S) [Mass/Vol] 4.4 g/dL 2.2-4.2 [facility] Urea nitrogen/Creatinine [Mass ratio] 14.2 mg/mg 10-20 [facility] Laboratory - Hematology and Cell countsOrdered By: [facility] on 03-19-2023 Erythrocyte distribution width (RBC) [Entitic vol] 37.2 fL 35.1-43.9 [facility] Erythrocyte distribution width (RBC) [Ratio] 12.0 % 11.6-14.6 [facility] MCH (RBC) [Entitic mass] 28.9 pg 25.0-35.0 [facility] MCHC Auto (RBC) [Mass/Vol]Or dered By: Mara Clements on 03-19-2023 MCHC (RBC) [Mass/Vol] 33.8 g/dL 32-36 [facility] No Panel InformationOrdered By: [facility] on 03-[facility]-2023 Thyroid Stimulating Hormone (TSH) 0.45 uIU/mL 0.358-3.74 [facility] Glucose 2 Hour See comment [facility] Comment on above: FASTING 90 Col: 02/22 03/15 0701 30 min GLU 190 H Col: 03/19/23 0740 60 min GLU 137 Col: 03/19/23 0810 120min GLU 72 Col: 03/19/23 0909 Androstenedione 197 ng/dL 41-262 [facility] Comment on above: Performed at: - L [address] [id number] Director: Ritesh Ly MD, Phone: [phone] Estimated GFR (MDRD) [facility] Comment on above: Test not performedAf rican Thai GFR Calc Estimated GFR (MDRD) Non-Af [facility] Comment on above: Test not performedNo n- GFR Calc Follicle Stimulating Hormone 5.4 mIU/mL [facility] Comment on above: NORMAL REFERENCE RAN GES FEMALE FOLLICULAR 2.3 - 12.6 mIU/mL MID-CYCLE PEAK 5.2 - 17.5 mIU/mL LUTEAL 1.7 - 12.9 mIU/mL POST-MENOPAUSAL ON MHT 5.9 - 72.8 mIU/mL NOT ON MHT 12.7 - 132.2 mlU/mL MALE 0.7 - 10.8 mIU/mL Free Triiodothyronine (T3) pg/dL 2.9 pg/mL 2.18-3.98 [facility] Luteinizing Hormone 9.2 mIU/mL [facility] Comment on above: NORMAL REFERENCE RAN GES FEMALE FOLLICULAR 1.9 - 26.2 mIU/mL MID-CYCLE PEAK 22.8 - 76.1 mIU/mL LUTEAL 0.6 - 16.6 mIU/mL POST-MENOPAUSAL ON MHT 1.1 - 52.4 mIU/mL NOT ON MHT 8.6 - 61.8 mIU/mL MALE 1.2 - 10.6 mIU/mL Total Triiodothyronine 1.48 ng/mL 0.6-1.81 [facility] Vitamin D 25-Hydroxy 15.6 ng/mL [facility] Comment on above: Vitamin D 25(OH) Sta tus Range Deficiency <20 ng/mL (50nmol/L) Insufficiency 20 - 30 ng/mL (50 - 75 nmol/L) Sufficiency 30 - 100 ng/mL (75 - 250 nmol/L) Toxicity >100 ng/mL (>250 nmol/L) Platelets bldOrdered By: Jono Clements on 03-19-2023 Platelets (Bld) [#/Vol] 384 10*3/uL 150-450 [facility] Serum or plasma 17-hydroxypr ogesterone measurement (mass/volume)Ordered By: Mara Clements on 03-19-2023 17-Hydroxyprogesterone [Mass/Vol] 71 ng/dL . [facility] Comment on above: Arnaud Stage Female 1 0 - 82 2 11 - 98 3 11 - 155 4 18 - 230 5 20 - 265Performed at: [facility] [id number] Director: Ritesh Ly MD, Phone: [phone] Serum or plasma albumin vel urement (mass/volume)Ordered By: [facility] 03-19-2023 Albumin [Mass/Vol] 4.0 g/dL 3.2-5.0 [facility] Serum or plasma albumin/glob ulin mass ratioOrdered By: Mara Tyree on 03-19-2023 Albumin/Globulin [Mass ratio] 0.9 {ratio} 0.9-2.4 [facility] Serum or plasma calcium vel urement (mass/volume)Ordered By: Mara Tyree on 03-19-2023 Calcium [Mass/Vol] 9.5 mg/dL 8.5-10.1 [facility] Serum or plasma cortisol castro surement (mass/volume)Ordered By: Mara Tyree on 03-19-2023 Cortisol [Mass/Vol] 27.10 ug/dL 3.44-22.45 [facility] Comment on above: Adult (AM) 5.27 - 22 .45 ug/dL Adult (PM) 3.44 - 16.76 ug/dLPlease note revised CORTISOL reference range effective 2019. Serum or plasma creatinine m easurement (mass/volume)Ordered By: Mara Tyree on 03-19-2023 Creatinine [Mass/Vol] 0.98 mg/dL 0.55-1.02 [facility] Comment on above: The validity of the calculated GFR & GFRAA in patients over 70 years has not been determined. Clinical correlation is essential. Serum or plasma estradiol (E 2) measurement (mass/volume)Or[facility]: [facility] 03-19-2023 E2 [Mass/Vol] 78.0 pg/mL [facility] Comment on above: NORMAL REFERENCE [...] 75 g glucose PO Qn See comment [facility] Comment on above: FASTING 7.3 Col: 0701 30 min INS 96.4 Col: 03/19/23 0740 60 min INS 111.7 Col: 03/19/23 0810 120min INS 19.3 Col: 03/19/23 0909 Serum or plasma prolactin me asurement (mass/volume)Ordered By: Mara Clements on 03-19-2023 Prolactin [Mass/Vol] 15.6 ng/mL [facility] Comment on above: NORMAL REFERENCE RAN GES FEMALE NON- 2.2 - 30.3 ng/mL 8.1 - 347.6 ng/mL POST-MENOPAUSAL 0.7 - 31.5 ng/mL MALE 2.5 - 17.4 ng/mL Serum or plasma urea nitroge n measurement (mass/volume)Ordered By: Mara Clements on 03-19-2023 Urea nitrogen [Mass/Vol] 14 mg/dL 03-10 [facility] Thin prep Papanicolaou smear with manual screeningOrdered By: Mara Clements on 03-19-2023 Thin prep Papanicolaou smear with manual screening 17 U/L [facility] Thin prep Papanicolaou smear with manual screening 11 - [facility] Absolute lymphocyte countOrd ered By: Dr. Seymour on 02-04-2023 Lymphocytes Auto (Unsp spec) [#/Vol] 0.69 10*3/uL 0.83-4.51 [facility] Basophil percentageOrdered B y: Dr. Seymour on 02-04-2023 Basophil percentage 5-10 SEEN /hpf 0-5 [facility] Basophils/100 WBC (Bld) 0.3 % 0-1 [facility] Chloride [Moles/Vol] 104 mmol/L 98-107 [facility] Eosinophils/100 WBC (Bld) 0.2 % 0-3 [facility] Glucose [Mass/Vol] 103 mg/dL 74-106 [facility] Comment on above: Fasting Glucose resu lt from 100 to 125 mg/dL suggests IMPAIRED HOMEOSTASIS per A.D.A. criteria. Neutrophils (Bld) [#/Vol] 16.4 10*3/uL 2.0-7.7 [facility] Neutrophils/100 WBC (Bld) 91.2 % 34-64 [facility] Potassium [Moles/Vol] 3.1 mmol/L 3.5-5.1 [facility] Sodium [Moles/Vol] 134 mmol/L 136-145 [facility] WBC (Bld) [#/Vol] 17.9 10*3/uL 4.5-13.0 [facility] Bilirubin Test strip Ql (U)O rdered By: Dr. Seymour on 02-04-2023 Bilirubin Ql (U) 1 mg/dL Negative [facility] Comment on above: COLOR OF URINE MAY A FFECT DIPSTICK RESULTS. Blood erythrocytes count (nu mber/volume)Ordered By: Dr. Seymour on 02-04-2023 RBC (Bld) [#/Vol] 4.59 10*6/uL 4.1-4.8 [facility] Blood hemoglobin measurement (mass/volume)Ordered By: Dr. Seymour on 02-04-2023 Hemoglobin (Bld) [Mass/Vol] 13.4 g/dL 12.0-15.0 [facility] Blood lymphocytes/100 leukoc ytesOrdered By: Dr. Seymour on 02-04-2023 Lymphocytes/100 WBC (Bld) 3.8 % 25-45 [facility] Blood monocytes/100 leukocyt esOrdered By: Dr. Seymour on 02-04-2023 Monocytes/100 WBC (Bld) 3.7 % 3-6 [facility] Blood platelet mean volumeOr dered By: Dr. Seymour on 02-04-2023 Platelet mean volume (Bld) [Entitic vol] 10.5 fL 6.2-12.0 [facility] Determination of erythrocyte mean corpuscular volume (MCV)Ordered By: Dr. Seymour on 02-04-2023 MCV (RBC) [Entitic vol] 84.1 fL 78-96 [facility] Hematocrit Auto (Bld) [Volum e fraction]Ordered By: Dr. Seymour on 02-04-2023 Hematocrit (Bld) [Volume fraction] 38.6 % 37-46 [facility] Influenza virus A and B and SARS-CoV-2 (COVID-19) Ag panel - Upper respiratory specimOrdered By: Flor Seymour on 02-04-2023 SARS-CoV-2 (COVID-19) RNA JAIRON+probe Ql (Resp) [facility] Influenza virus A and B and SARS-CoV-2 (COVID-19) Ag panel - Upper respiratory specimOrdered By: Dr. Seymour on 02-04-2023 SARS-CoV-2 (COVID-19) RNA JAIRON+probe Ql (Resp) [facility] Ketones Test strip Ql (U)Ord ered By: Dr. Seymour on 02-04-2023 Ketones Ql (U) 150 mg/dl Negative [facility] Comment on above: CRITICAL VALUE *HCRI TICAL VALUE VERIFIED. CALLED TO SHIVAM BOWLING02/04/23 0253 Khalif Lemus.RESULTS READ BACK BY SAME . Laboratory - Chemistry and C hemistry - challengeOrdered By: Dr. Seymour on 02-04-2023 CO2 [Moles/Vol] 21.0 mmol/L 21.0-32.0 [facility] Urea nitrogen/Creatinine [Mass ratio] 8.7 mg/mg 10-20 [facility] Laboratory - Hematology and Cell countsOrdered By: Dr. Seymour on 02-04-2023 Erythrocyte distribution width (RBC) [Entitic vol] 35.8 fL 35.1-43.9 [facility] Erythrocyte distribution width (RBC) [Ratio] 11.8 % 11.6-14.6 [facility] Immature granulocytes/100 WBC (Bld) 0.800 % 0.0-0.9 [facility] Comment on above: IG% - Immature Granu locytes (promyelocytes, myelocytes and metamyelocytes) > 1% indicates that a LEFT SHIFT is Present. MCH (RBC) [Entitic mass] 29.2 pg 25.0-35.0 [facility] Nucleated RBC/100 WBC (Bld) [Ratio] 0 % 0-5 [facility] MCHC Auto (RBC) [Mass/Vol]Or dered By: Dr. Seymour on 02-04-2023 MCHC (RBC) [Mass/Vol] 34.7 g/dL 32-36 [facility] Mucus LM Ql (Urine sed)Order ed By: Dr. Seymour on 02-04-2023 Mucus Ql (Urine sed) 0 SEEN /hpf [facility] Nitrite Test strip Ql (U)Ord ered By: Dr. Seymour on 02-04-2023 Nitrite Ql (U) Negative Negative [facility] No Panel InformationOrdered By: Dr. Seymour on 02-04-2023 Estimated Creatinine Clearance Calc 82.80 ml/min [facility] Estimated GFR (MDRD) [facility] Comment on above: Test not performedAf rican Thai GFR Calc Estimated GFR (MDRD) Non-Af [facility] Comment on above: Test not performedNo n- GFR Calc Platelets bldOrdered By: Dr. Seymour on 02-04-2023 Platelets (Bld) [#/Vol] 258 10*3/uL 150-450 [facility] Protein Test strip Ql (U)Ord ered By: Dr. Seymour on 02-04-2023 Protein Ql (U) 100 mg/dl Negative [facility] S. pyogenes Ag IF Ql (Throat )Ordered By: Flor Seymour on 02-04-2023 S. pyogenes Ag IA Ql (Unsp spec) Streptococcus Group A [facility] S. pyogenes Ag IF Ql (Throat )Ordered By: Dr. Seymour on 02-04-2023 S. pyogenes Ag IA Ql (Unsp spec) Streptococcus Group A [facility] Serum or plasma calcium vel urement (mass/volume)Ordered By: Dr. Seymour on 02-04-2023 Calcium [Mass/Vol] 9.2 mg/dL 8.5-10.1 [facility] Serum or plasma creatinine m easurement (mass/volume)Ordered By: Dr. Seymuor on 02-04-2023 Creatinine [Mass/Vol] 1.04 mg/dL 0.55-1.02 [facility] Comment on above: The validity of the calculated GFR & GFRAA in patients over 70 years has not been determined. Clinical correlation is essential. Serum or plasma urea nitroge n measurement (mass/volume)Ordered By: Dr. Seymour on 02-04-2023 Urea nitrogen [Mass/Vol] 9 mg/dL 7-18 [facility] Squamous epithelial cells de tection in urine sediment by light microscopyOrdered By: Dr. Seymour on 02-04-2023 Epithelial cells.squamous LM Ql (Urine sed) 0-5 SEEN /hpf 5-10 [facility] Thin prep Papanicolaou smear with manual screeningOrdered By: Dr. Seymour on 02-04-2023 Thin prep Papanicolaou smear with manual screening 9 5-15 [facility] Urine blood detectionOrdered By: Dr. Seymour on 02-04-2023 RBC Ql (U) Negative Negative [facility] RBC Ql (U) 0 SEEN /hpf 0-5 [facility] Urine clarityOrdered By: Dr. Seymour on 02-04-2023 Clarity (U) Clear Clear [facility] Urine color determinationOrd ered By: Dr. Seymour on 02-04-2023 Color (U) Yellow Yellow [facility] Urine glucose detectionOrder ed By: Dr. Seymour on 02-04-2023 Glucose Ql (U) Normal mg/dl Normal [facility] Urine leukocyte esterase det ection by dipstickOrdered By: Dr. Seymour on 02-04-2023 Leukocyte esterase Test strip Ql (U) 25 /ul Negative [facility] Urine pHOrdered By: Dr. Lesli khanna on 02-04-2023 pH (U) 6.5 [pH] 5.0 - 8.0 [facility] Urine sediment bacteria coun t by microscopy (number/high power field)Ordered By: Dr. Seymour on 02-04-2023 Bacteria LM.HPF (Urine sed) [#/Area] 1 /[HPF] None Seen [facility] Urine specific gravity measu rementOrdered By: Dr. Seymour on 02-04-2023 Specific gravity (U) [Rel density] 1.015 1.002-1.030 [facility] Urobilinogen Auto test strip Ql (U)Ordered By: Dr. Seymour on 02-04-2023 Urobilinogen Ql (U) 12 mg/dl Normal [facility] Throat specimen bacteria radha ntification by cultureOrdered By: Dr. Wolfe on 12-03-2022 Bacteria identified Cx Nom (Throat) streptococcus isolated. [facility] Culture, urineOrdered By: Dr Praveena De La Torre on 12-01-2022 Bacteria identified Cx Nom (U) Presumptive E. coli [facility] Throat specimen bacteria radha ntification by cultureOrdered By: J Luis Wolfe on 12-01-2022 Bacteria identified Cx Nom (Throat) streptococcus isolated. [facility] Absolute lymphocyte countOrd ered By: Dr. De La Torre on 11-28-2022 Lymphocytes Auto (Unsp spec) [#/Vol] 2.71 10*3/uL 0.83-4.51 [facility] Basophil percentageOrdered B y: Dr. De La Torre on 11-28-2022 Basophil percentage 25-50 SEEN /hpf 0-5 [facility] Basophils/100 WBC (Bld) 0.5 % 0-1 [facility] Chloride [Moles/Vol] 108 mmol/L 98-107 [facility] Eosinophils/100 WBC (Bld) 1.5 % 0-3 [facility] Glucose [Mass/Vol] 75 mg/dL 74-106 [facility] Neutrophils (Bld) [#/Vol] 5.8 10*3/uL 2.0-7.7 [facility] Neutrophils/100 WBC (Bld) 62.9 % 34-64 [facility] Potassium [Moles/Vol] 3.5 mmol/L 3.5-5.1 [facility] Sodium [Moles/Vol] 141 mmol/L 136-145 [facility] WBC (Bld) [#/Vol] 9.3 10*3/uL 4.5-13.0 [facility] Bilirubin Test strip Ql (U)O rdered By: Dr. De La Torre on 11-28-2022 Bilirubin Ql (U) Negative Negative [facility] Blood erythrocytes count (nu mber/volume)Ordered By: Dr. De La Torre on 11-28-2022 RBC (Bld) [#/Vol] 4.53 10*6/uL 4.1-4.8 [facility] Blood hemoglobin measurement (mass/volume)Ordered By: Dr. De La Torre on 11-28-2022 Hemoglobin (Bld) [Mass/Vol] 12.8 g/dL 12.0-15.0 [facility] Blood lymphocytes/100 leukoc ytesOrdered By: Dr. De La Torre on 11-28-2022 Lymphocytes/100 WBC (Bld) 29.3 % 25-45 [facility] Blood monocytes/100 leukocyt esOrdered By: Dr. De La Torre on 11-28-2022 Monocytes/100 WBC (Bld) 5.6 % 3-6 [facility] Blood platelet mean volumeOr dered By: Dr. De La Torre on 11-28-2022 Platelet mean volume (Bld) [Entitic vol] 9.8 fL 6.2-12.0 [facility] Culture, urineOrdered By: John De La Torre on 11-28-2022 Bacteria identified Cx Nom (U) Presumptive E. coli [facility] Determination of erythrocyte mean corpuscular volume (MCV)Ordered By: Dr. De La Torre on 11-28-2022 MCV (RBC) [Entitic vol] 86.1 fL 78-96 [facility] Hematocrit Auto (Bld) [Volum e fraction]Ordered By: Dr. De La Torre on 11-28-2022 Hematocrit (Bld) [Volume fraction] 39.0 % 37-46 [facility] Ketones Test strip Ql (U)Ord ered By: Dr. De La Torre on 11-28-2022 Ketones Ql (U) 5 mg/dl Negative [facility] Laboratory - Chemistry and C hemistry - challengeOrdered By: Dr. De La Torre on 11-28-2022 CO2 [Moles/Vol] 26.0 mmol/L 21.0-32.0 [facility] Urea nitrogen/Creatinine [Mass ratio] 12.1 mg/mg 10-20 [facility] Laboratory - Hematology and Cell countsOrdered By: Dr. De La Torre on 11-28-2022 Erythrocyte distribution width (RBC) [Entitic vol] 36.8 fL 35.1-43.9 [facility] Erythrocyte distribution width (RBC) [Ratio] 11.7 % 11.6-14.6 [facility] Immature granulocytes/100 WBC (Bld) 0.200 % 0.0-0.9 [facility] Comment on above: IG% - Immature Granu locytes (promyelocytes, myelocytes and metamyelocytes) > 1% indicates that a LEFT SHIFT is Present. MCH (RBC) [Entitic mass] 28.3 pg 25.0-35.0 [facility] Nucleated RBC/100 WBC (Bld) [Ratio] 0 % 0-5 [facility] MCHC Auto (RBC) [Mass/Vol]Or dered By: Dr. De La Torre on 11-28-2022 MCHC (RBC) [Mass/Vol] 32.8 g/dL 32-36 [facility] Mucus LM Ql (Urine sed)Order ed By: Dr. De La Torre on 11-28-2022 Mucus Ql (Urine sed) RARE /hpf [facility] Nitrite Test strip Ql (U)Ord ered By: Dr. De La Torre on 11-28-2022 Nitrite Ql (U) Negative Negative [facility] No Panel InformationOrdered By: Dr. De La Torre on 11-28-2022 Estimated Creatinine Clearance Calc 96.86 ml/min [facility] Estimated GFR (MDRD) [facility] Comment on above: Test not performedAf rican Thai GFR Calc Estimated GFR (MDRD) Non-Af [facility] Comment on above: Test not performedNo n- GFR Calc Platelets bldOrdered By: Dr. De La Torre on 11-28-2022 Platelets (Bld) [#/Vol] 347 10*3/uL 150-450 [facility] Protein Test strip Ql (U)Ord ered By: Dr. De La Torre on 11-28-2022 Protein Ql (U) Negative Negative [facility] Serum or plasma calcium vel urement (mass/volume)Ordered By: Dr. De La Torre on 11-28-2022 Calcium [Mass/Vol] 9.3 mg/dL 8.5-10.1 [facility] Serum or plasma creatinine m easurement (mass/volume)Ordered By: Dr. De La Torre on 11-28-2022 Creatinine [Mass/Vol] 0.82 mg/dL 0.55-1.02 [facility] Comment on above: The validity of the calculated GFR & GFRAA in patients over 70 years has not been determined. Clinical correlation is essential. Serum or plasma urea nitroge n measurement (mass/volume)Ordered By: Dr. De La Torre on 11-28-2022 Urea nitrogen [Mass/Vol] 10 mg/dL 7-18 [facility] Squamous epithelial cells de tection in urine sediment by light microscopyOrdered By: Dr. De La Torre on 11-28-2022 Epithelial cells.squamous LM Ql (Urine sed) 0-5 SEEN /hpf 5-10 [facility] Thin prep Papanicolaou smear with manual screeningOrdered By: Dr. De La Torre on 11-28-2022 Thin prep Papanicolaou smear with manual screening 7 5-15 [facility] Urine blood detectionOrdered By: Dr. De La Torre on 11-28-2022 RBC Ql (U) 25 /ul Negative [facility] RBC Ql (U) 0-5 SEEN /hpf 0-5 [facility] Urine clarityOrdered By: Dr. De La Torre on 11-28-2022 Clarity (U) Sl. Cloudy Clear [facility] Urine color determinationOrd ered By: Dr. De La Torre on 11-28-2022 Color (U) Yellow Yellow [facility] Urine glucose detectionOrder ed By: Dr. De La Torre on 11-28-2022 Glucose Ql (U) Normal mg/dl Normal [facility] Urine leukocyte esterase det ection by dipstickOrdered By: Dr. De La Torre on 11-28-2022 Leukocyte esterase Test strip Ql (U) 500 /ul Negative [facility] Urine pHOrdered By: Dr. Azeem cristobal on 11-28-2022 pH (U) 8.0 [pH] 5.0 - 8.0 [facility] Urine sediment bacteria coun t by microscopy (number/high power field)Ordered By: Dr. De La Torre on 11-28-2022 Bacteria LM.HPF (Urine sed) [#/Area] RARE /hpf None Seen [facility] Urine specific gravity measu rementOrdered By: Dr. De La Torre on 11-28-2022 Specific gravity (U) [Rel density] 1.015 1.002-1.030 [facility] Urobilinogen Auto test strip Ql (U)Ordered By: Dr. De La Torre on 11-28-2022 Urobilinogen Ql (U) Normal mg/dl Normal [facility] TSH with Reflex to T4, Freeo n 11-24-2022 TSH with reflex to T4, Free 0.823 [facility] Release to patient->Automatic [facility] Culture, urineOrdered By: Dr Praveena Clements on 11-19-2022 Bacteria identified Cx Nom (U) Mixed Gram Pos & Gram Neg Org [facility] Basophil percentageOrdered B y: Dr. Clements on 11-18-2022 Basophil percentage 5-10 SEEN /hpf 0-5 [facility] Basophil percentageOrdered B y: Teodoro Garcia on 11-18-2022 Lactate [Moles/Vol] 0.7 mmol/L 0.4-2.0 [facility] Bilirubin Test strip Ql (U)O rdered By: Dr. Clements on 11-18-2022 Bilirubin Ql (U) Negative Negative [facility] Ketones Test strip Ql (U)Ord ered By: Dr. Clements on 11-18-2022 Ketones Ql (U) Negative Negative [facility] Mucus LM Ql (Urine sed)Order ed By: Dr. Clements on 11-18-2022 Mucus Ql (Urine sed) 2+ /hpf [facility] Nitrite Test strip Ql (U)Ord ered By: Dr. Clements on 11-18-2022 Nitrite Ql (U) Negative Negative [facility] Protein Test strip Ql (U)Ord ered By: Dr. Clements on 11-18-2022 Protein Ql (U) 30 mg/dl Negative [facility] Squamous epithelial cells de tection in urine sediment by light microscopyOrdered By: Dr. Clements on 11-18-2022 Epithelial cells.squamous LM Ql (Urine sed) 0 SEEN /hpf 5-10 [facility] Urine blood detectionOrdered By: Dr. Clements on 11-18-2022 RBC Ql (U) Negative Negative [facility] RBC Ql (U) 0 SEEN /hpf 0-5 [facility] Urine clarityOrdered By: Dr. Clements on 11-18-2022 Clarity (U) Clear Clear [facility] Urine color determinationOrd ered By: Dr. Clements on 11-18-2022 Color (U) Yellow Yellow [facility] Urine glucose detectionOrder ed By: Dr. Clements on 11-18-2022 Glucose Ql (U) Normal mg/dl Normal [facility] Urine leukocyte esterase det ection by dipstickOrdered By: Dr. Clements on 11-18-2022 Leukocyte esterase Test strip Ql (U) 25 /ul Negative [facility] Urine pHOrdered By: Dr. Urvashi dutta on 11-18-2022 pH (U) 6.0 [pH] 5.0 - 8.0 [facility] Urine sediment bacteria coun t by microscopy (number/high power field)Ordered By: Dr. Clements on 11-18-2022 Bacteria LM.HPF (Urine sed) [#/Area] 1 /[HPF] None Seen [facility] Urine specific gravity measu rementOrdered By: Dr. Clements on 11-18-2022 Specific gravity (U) [Rel density] 1.020 1.002-1.030 [facility] Urobilinogen Auto test strip Ql (U)Ordered By: Dr. Clements on 11-18-2022 Urobilinogen Ql (U) 1 mg/dl Normal [facility] Absolute lymphocyte countOrd ered By: Teodoro Garcia on 11-17-2022 Lymphocytes Auto (Unsp spec) [#/Vol] 6.68 10*3/uL 0.83-4.51 [facility] Basophil percentageOrdered B y: Teodoro Garcia on 11-17-2022 Basophils/100 WBC (Bld) 0.5 % 0-1 [facility] Chloride [Moles/Vol] 108 mmol/L 98-107 [facility] Eosinophils/100 WBC (Bld) 1.4 % 0-3 [facility] Glucose [Mass/Vol] 60 mg/dL 74-106 [facility] Lactate [Moles/Vol] 3.1 mmol/L 0.4-2.0 [facility] Comment on above: Critical Result(s) C alled at: 23:35:04 11/17/2022 by: NANCY MCKAY TO SHIVAM BOWLING. Results read back by same. Neutrophils (Bld) [#/Vol] 5.5 10*3/uL 2.0-7.7 [facility] Neutrophils/100 WBC (Bld) 41.2 % 34-64 [facility] Potassium [Moles/Vol] 3.8 mmol/L 3.5-5.1 [facility] Sodium [Moles/Vol] 140 mmol/L 136-145 [facility] WBC (Bld) [#/Vol] 13.3 10*3/uL 4.5-13.0 [facility] Beta hCG serum qualOrdered B y: Dr. Clements on 11-17-2022 Beta HCG ( test) Ql Negative [facility] Blood erythrocytes count (nu mber/volume)Ordered By: Teodoro Garcia on 11-17-2022 RBC (Bld) [#/Vol] 5.17 10*6/uL 4.1-4.8 [facility] Blood hemoglobin measurement (mass/volume)Ordered By: Teodoro Garcia on 11-17-2022 Hemoglobin (Bld) [Mass/Vol] 15.0 g/dL 12.0-15.0 [facility] Blood lymphocytes/100 leukoc ytesOrdered By: Teodoro Garcia on 11-17-2022 Lymphocytes/100 WBC (Bld) 50.2 % 25-45 [facility] Blood manual differential co mment interpretation (narrative result)Ordered By: Teodoro Garcia on 11-17-2022 Manual differential comment James (Bld) [Interp] SCANNED [facility] Blood monocytes/100 leukocyt esOrdered By: Teodoro Garcia on 11-17-2022 Monocytes/100 WBC (Bld) 6.4 % 3-6 [facility] Blood platelet mean volumeOr dered By: Teodoro Garcia on 11-17-2022 Platelet mean volume (Bld) [Entitic vol] 9.6 fL 6.2-12.0 [facility] Determination of erythrocyte mean corpuscular volume (MCV)Ordered By: Teodoro Garcia on 11-17-2022 MCV (RBC) [Entitic vol] 86.3 fL 78-96 [facility] Hematocrit Auto (Bld) [Volum e fraction]Ordered By: Teodoro Garcia on 11-17-2022 Hematocrit (Bld) [Volume fraction] 44.6 % 37-46 [facility] INR in Blood by Coagulation assayOrdered By: Teodoro Garcia on 11-17-2022 INR Coag (Bld) [Relative time] 1.0 {INR} [facility] Laboratory - Chemistry and C hemistry - challengeOrdered By: Teodoro Garcia on 11-17-2022 CO2 [Moles/Vol] 27.0 mmol/L 21.0-32.0 [facility] Urea nitrogen/Creatinine [Mass ratio] 15.1 mg/mg 10-20 [facility] Laboratory - CoagulationOrde red By: Teodoro Garcia on 11-17-2022 aPTT Coag (Bld) [Time] 30.9 s 24.1-36.2 [facility] PT Coag (PPP) [Time] 12.5 s 11.7-14.9 [facility] Laboratory - Hematology and Cell countsOrdered By: Teodoro Garcia on 11-17-2022 Erythrocyte distribution width (RBC) [Entitic vol] 37.1 fL 35.1-43.9 [facility] Erythrocyte distribution width (RBC) [Ratio] 11.8 % 11.6-14.6 [facility] Immature granulocytes/100 WBC (Bld) 0.300 % 0.0-0.9 [facility] Comment on above: IG% - Immature Granu locytes (promyelocytes, myelocytes and metamyelocytes) > 1% indicates that a LEFT SHIFT is Present. MCH (RBC) [Entitic mass] 29.0 pg 25.0-35.0 [facility] Nucleated RBC/100 WBC (Bld) [Ratio] 0 % 0-5 [facility] MCHC Auto (RBC) [Mass/Vol]Or dered By: Teodoro Garcia on 11-17-2022 MCHC (RBC) [Mass/Vol] 33.6 g/dL 32-36 [facility] No Panel InformationOrdered By: Teodoro Garcia on 11-17-2022 Atypical Lymphocytes 1+ % [facility] Estimated GFR (MDRD) [facility] Comment on above: Test not performedAf rican Thai GFR Calc Estimated GFR (MDRD) Non-Af Amer TNP [facility] Comment on above: Test not performedNo n- GFR Calc Platelets bldOrdered By: Fran Garcia on 11-17-2022 Platelets (Bld) [#/Vol] 471 10*3/uL 150-450 [facility] Serum or plasma calcium vel urement (mass/volume)Ordered By: Teodoro Garcia on 11-17-2022 Calcium [Mass/Vol] 9.2 mg/dL 8.5-10.1 [facility] Serum or plasma creatinine m easurement (mass/volume)Ordered By: Teodoro Garcia on 11-17-2022 Creatinine [Mass/Vol] 0.93 mg/dL 0.55-1.02 [facility] Comment on above: The validity of the calculated GFR & GFRAA in patients over 70 years has not been determined. Clinical correlation is essential. Serum or plasma urea nitroge n measurement (mass/volume)Ordered By: Teodoro Garcia on 11-17-2022 Urea nitrogen [Mass/Vol] 14 mg/dL 7-18 [facility] Thin prep Papanicolaou smear with manual screeningOrdered By: Teodoro Garcia on 11-17-2022 Thin prep Papanicolaou smear with manual screening 5 5-15 [facility] Absolute lymphocyte countOrd ered By: Dr. Harris on 11-12-2022 Lymphocytes Auto (Unsp spec) [#/Vol] 1.06 10*3/uL 0.83-4.51 [facility] Basophil percentageOrdered B y: Dr. Harris on 11-12-2022 Basophil percentage 0 SEEN /hpf 0-5 [facility] Basophils/100 WBC (Bld) 0.4 % 0-1 [facility] Bilirubin [Mass/Vol] 0.50 mg/dL 0.20-1.00 [facility] Comment on above: For patients on eltr ombopag therapy, use of Dimension [place] TBIL is not recommended. Chloride [Moles/Vol] 110 mmol/L 98-107 [facility] Eosinophils/100 WBC (Bld) 0.2 % 0-3 [facility] Glucose [Mass/Vol] 93 mg/dL 74-106 [facility] Neutrophils (Bld) [#/Vol] 10.9 10*3/uL 2.0-7.7 [facility] Neutrophils/100 WBC (Bld) 89.5 % 34-64 [facility] Potassium [Moles/Vol] 3.9 mmol/L 3.5-5.1 [facility] Protein [Mass/Vol] 7.7 g/dL 6.4-8.2 [facility] Sodium [Moles/Vol] 141 mmol/L 136-145 [facility] WBC (Bld) [#/Vol] 12.2 10*3/uL 4.5-13.0 [facility] Beta hCG serum qualOrdered B y: Dr. Harris on 11-12-2022 Beta HCG ( test) Ql Negative [facility] Bilirubin Test strip Ql (U)O rdered By: Dr. Harris on 11-12-2022 Bilirubin Ql (U) Negative Negative [facility] Blood erythrocytes count (nu mber/volume)Ordered By: Dr. Harris on 11-12-2022 RBC (Bld) [#/Vol] 4.89 10*6/uL 4.1-4.8 [facility] Blood hemoglobin measurement (mass/volume)Ordered By: Dr. Harris on 11-12-2022 Hemoglobin (Bld) [Mass/Vol] 13.9 g/dL 12.0-15.0 [facility] Blood lymphocytes/100 leukoc ytesOrdered By: Dr. Harris on 11-12-2022 Lymphocytes/100 WBC (Bld) 8.7 % 25-45 [facility] Blood monocytes/100 leukocyt esOrdered By: Dr. Harris on 11-12-2022 Monocytes/100 WBC (Bld) 0.9 % 3-6 [facility] Blood platelet mean volumeOr dered By: Dr. Harris on 11-12-2022 Platelet mean volume (Bld) [Entitic vol] 9.9 fL 6.2-12.0 [facility] Determination of erythrocyte mean corpuscular volume (MCV)Ordered By: Dr. Harris on 11-12-2022 MCV (RBC) [Entitic vol] 88.1 fL 78-96 [facility] Direct bilirubinOrdered By: Dr. Harris on 11-12-2022 Bilirubin.direct [Mass/Vol] 0.18 mg/dL 0.00-0.30 [facility] Hematocrit Auto (Bld) [Volum e fraction]Ordered By: Dr. Harris on 11-12-2022 Hematocrit (Bld) [Volume fraction] 43.1 % 37-46 [facility] Ketones Test strip Ql (U)Ord ered By: Dr. Harris on 11-12-2022 Ketones Ql (U) Negative Negative [facility] Laboratory - Chemistry and C hemistry - challengeOrdered By: Dr. Harris on 11-12-2022 ALP [Catalytic activity/Vol] 53 U/L 47-119 [facility] ALT [Catalytic activity/Vol] 16 U/L 13-56 [facility] CO2 [Moles/Vol] 25.0 mmol/L 21.0-32.0 [facility] Globulin (S) [Mass/Vol] 3.7 g/dL 2.2-4.2 [facility] Lipase [Catalytic activity/Vol] 97 U/L 73-393 [facility] Urea nitrogen/Creatinine [Mass ratio] 14.2 mg/mg 10-20 [facility] Laboratory - Hematology and Cell countsOrdered By: Dr. Harris on 11-12-2022 Erythrocyte distribution width (RBC) [Entitic vol] 38.0 fL 35.1-43.9 [facility] Erythrocyte distribution width (RBC) [Ratio] 11.7 % 11.6-14.6 [facility] Immature granulocytes/100 WBC (Bld) 0.300 % 0.0-0.9 [facility] Comment on above: IG% - Immature Granu locytes (promyelocytes, myelocytes and metamyelocytes) > 1% indicates that a LEFT SHIFT is Present. MCH (RBC) [Entitic mass] 28.4 pg 25.0-35.0 [facility] Nucleated RBC/100 WBC (Bld) [Ratio] 0 % 0-5 [facility] MCHC Auto (RBC) [Mass/Vol]Or dered By: Dr. Harris on 11-12-2022 MCHC (RBC) [Mass/Vol] 32.3 g/dL 32-36 [facility] Mucus LM Ql (Urine sed)Order ed By: Dr. Harris on 11-12-2022 Mucus Ql (Urine sed) 0 SEEN /hpf [facility] Nitrite Test strip Ql (U)Ord ered By: Dr. Harris on 11-12-2022 Nitrite Ql (U) Negative Negative [facility] No Panel InformationOrdered By: Dr. Harris on 11-12-2022 Estimated Creatinine Clearance Calc 94.47 ml/min [facility] Estimated GFR (MDRD) [facility] Comment on above: Test not performedAf rican Thai GFR Calc Estimated GFR (MDRD) Non-Af [facility] Comment on above: Test not performedNo n- GFR Calc Platelets bldOrdered By: Dr. Harris on 11-12-2022 Platelets (Bld) [#/Vol] 353 10*3/uL 150-450 [facility] Protein Test strip Ql (U)Ord ered By: Dr. Harris on 11-12-2022 Protein Ql (U) 15 mg/dl Negative [facility] Serum or plasma albumin vel urement (mass/volume)Ordered By: Dr. Harris on 11-12-2022 Albumin [Mass/Vol] 4.0 g/dL 3.2-5.0 [facility] Serum or plasma albumin/glob ulin mass ratioOrdered By: Dr. Harris on 11-12-2022 Albumin/Globulin [Mass ratio] 1.1 {ratio} 0.9-2.4 [facility] Serum or plasma calcium vel urement (mass/volume)Ordered By: Dr. Harris on 11-12-2022 Calcium [Mass/Vol] 9.5 mg/dL 8.5-10.1 [facility] Serum or plasma creatinine m easurement (mass/volume)Ordered By: Dr. Harris on 11-12-2022 Creatinine [Mass/Vol] 0.91 mg/dL 0.55-1.02 [facility] Comment on above: The validity of the calculated GFR & GFRAA in patients over 70 years has not been determined. Clinical correlation is essential. Serum or plasma urea nitroge n measurement (mass/volume)Ordered By: Dr. Harris on 11-12-2022 Urea nitrogen [Mass/Vol] 13 mg/dL 7-18 [facility] Squamous epithelial cells de tection in urine sediment by light microscopyOrdered By: Dr. Harris on 11-12-2022 Epithelial cells.squamous LM Ql (Urine sed) 0 SEEN /hpf 5-10 [facility] Thin prep Papanicolaou smear with manual screeningOrdered By: Dr. Harris on 11-12-2022 Thin prep Papanicolaou smear with manual screening 18 U/L 15-37 [facility] Thin prep Papanicolaou smear with manual screening 6 5-15 [facility] Urine blood detectionOrdered By: Dr. Harris on 11-12-2022 RBC Ql (U) 150 /ul Negative [facility] RBC Ql (U) 0 SEEN /hpf 0-5 [facility] Urine clarityOrdered By: Dr. Harris on 11-12-2022 Clarity (U) Clear Clear [facility] Urine color determinationOrd ered By: Dr. Harris on 11-12-2022 Color (U) Yellow Yellow [facility] Urine glucose detectionOrder ed By: Dr. Harris on 11-12-2022 Glucose Ql (U) Normal mg/dl Normal [facility] Urine leukocyte esterase det ection by dipstickOrdered By: Dr. Harris on 11-12-2022 Leukocyte esterase Test strip Ql (U) Negative Negative [facility] Urine pHOrdered By: Dr. Carrington jones on 11-12-2022 pH (U) 7.0 [pH] 5.0 - 8.0 [facility] Urine sediment bacteria coun t by microscopy (number/high power field)Ordered By: Dr. Harris on 11-12-2022 Bacteria LM.HPF (Urine sed) [#/Area] 0 /[HPF] None Seen [facility] Urine specific gravity measu rementOrdered By: Dr. Harris on 11-12-2022 Specific gravity (U) [Rel density] 1.010 1.002-1.030 [facility] Urobilinogen Auto test strip Ql (U)Ordered By: Dr. Harris on 11-12-2022 Urobilinogen Ql (U) Normal mg/dl Normal [facility] 2019 CORONAVIRUSon 3 SARS-CoV-2 (COVID-19) RNA JAIRON+probe Ql (Resp) SARS-CoV-2 (Agent of COVID-19) Not Detected by RT-PCR or equivalent method. Not Detected [facility] Absolute lymphocyte countOrd ered By: Dr. De La Torre on 08-26-2022 Lymphocytes Auto (Unsp spec) [#/Vol] 0.76 10*3/uL 0.83-4.51 [facility] Basophil percentageOrdered B y: Dr. De La Torre on 08-26-2022 Basophils/100 WBC (Bld) 0.2 % 0-1 [facility] Bilirubin [Mass/Vol] 0.70 mg/dL 0.20-1.00 [facility] Comment on above: For patients on eltr ombopag therapy, use of Dimension [place] TBIL is not recommended. Chloride [Moles/Vol] 104 mmol/L 98-107 [facility] Eosinophils/100 WBC (Bld) 0.5 % 0-3 [facility] Glucose [Mass/Vol] 104 mg/dL 74-106 [facility] Comment on above: Fasting Glucose resu lt from 100 to 125 mg/dL suggests IMPAIRED HOMEOSTASIS per A.D.A. criteria. Neutrophils (Bld) [#/Vol] 11.0 10*3/uL 2.0-7.7 [facility] Neutrophils/100 WBC (Bld) 86.4 % 34-64 [facility] Potassium [Moles/Vol] 3.2 mmol/L 3.5-5.1 [facility] Protein [Mass/Vol] 8.4 g/dL 6.4-8.2 [facility] Sodium [Moles/Vol] 138 mmol/L 136-145 [facility] WBC (Bld) [#/Vol] 12.8 10*3/uL 4.5-13.0 [facility] Blood erythrocytes count (nu mber/volume)Ordered By: Dr. De La Torre on 08-26-2022 RBC (Bld) [#/Vol] 5.04 10*6/uL 4.1-4.8 [facility] Blood hemoglobin measurement (mass/volume)Ordered By: Dr. De La Torre on 08-26-2022 Hemoglobin (Bld) [Mass/Vol] 14.6 g/dL 12.0-15.0 [facility] Blood lymphocytes/100 leukoc ytesOrdered By: Dr. De La Torre on 08-26-2022 Lymphocytes/100 WBC (Bld) 5.9 % 25-45 [facility] Blood monocytes/100 leukocyt esOrdered By: Dr. De La Torre on 08-26-2022 Monocytes/100 WBC (Bld) 6.7 % 3-6 [facility] Blood platelet mean volumeOr dered By: Dr. De La Torre on 08-26-2022 Platelet mean volume (Bld) [Entitic vol] 9.8 fL 6.2-12.0 [facility] Determination of erythrocyte mean corpuscular volume (MCV)Ordered By: Dr. De La Torre on 08-26-2022 MCV (RBC) [Entitic vol] 85.9 fL 78-96 [facility] Hematocrit Auto (Bld) [Volum e fraction]Ordered By: Dr. De La Torre on 08-26-2022 Hematocrit (Bld) [Volume fraction] 43.3 % 37-46 [facility] Influenza virus A and B and SARS-CoV-2 (COVID-19) Ag panel - Upper respiratory specimOrdered By: Dr. De La Torre on 08-26-2022 SARS-CoV-2 (COVID-19) RNA JAIRON+probe Ql (Resp) [facility] Laboratory - Chemistry and C hemistry - challengeOrdered By: Dr. De La Torre on 08-26-2022 ALP [Catalytic activity/Vol] 67 U/L 47-119 [facility] ALT [Catalytic activity/Vol] 17 U/L 13-56 [facility] CO2 [Moles/Vol] 27.0 mmol/L 21.0-32.0 [facility] Globulin (S) [Mass/Vol] 4.4 g/dL 2.2-4.2 [facility] Urea nitrogen/Creatinine [Mass ratio] 11.1 mg/mg 10-20 [facility] Laboratory - Hematology and Cell countsOrdered By: Dr. De La Torre on 08-26-2022 Erythrocyte distribution width (RBC) [Entitic vol] 36.5 fL 35.1-43.9 [facility] Erythrocyte distribution width (RBC) [Ratio] 11.7 % 11.6-14.6 [facility] Immature granulocytes/100 WBC (Bld) 0.300 % 0.0-0.9 [facility] Comment on above: IG% - Immature Granu locytes (promyelocytes, myelocytes and metamyelocytes) > 1% indicates that a LEFT SHIFT is Present. MCH (RBC) [Entitic mass] 29.0 pg 25.0-35.0 [facility] Nucleated RBC/100 WBC (Bld) [Ratio] 0 % 0-5 [facility] MCHC Auto (RBC) [Mass/Vol]Or dered By: Dr. De La Torre on 08-26-2022 MCHC (RBC) [Mass/Vol] 33.7 g/dL 32-36 [facility] No Panel InformationOrdered By: Dr. De La Torre on 08-26-2022 Estimated Creatinine Clearance Calc 106.31 ml/min [facility] Estimated GFR (MDRD) [facility] Comment on above: Test not performedAf rican Thai GFR Calc Estimated GFR (MDRD) Non-Af [facility] Comment on above: Test not performedNo n- GFR Calc Platelets bldOrdered By: Dr. De La Torre on 08-26-2022 Platelets (Bld) [#/Vol] 305 10*3/uL 150-450 [facility] ROUTINE FLU A/B + RSVon FLUAV RNA JAIRON+probe Ql (Unsp spec) Negative Negative for Influenza A by RT-PCR [facility] FLUBV RNA JAIRON+probe Ql (Unsp spec) Negative Negative for Influenza B by RT-PCR [facility] RSV A RNA JAIRON+probe Ql (Unsp spec) Negative Negative for Respiratory Syncytial Virus (RSV) by PCR [facility] Serum heterophile antibody d etectionOrdered By: Dr. De La Torre on 08-26-2022 Heterophile Ab Ql (S) Negative Negative [facility] Serum or plasma albumin vel urement (mass/volume)Ordered By: Dr. De La Torre on 08-26-2022 Albumin [Mass/Vol] 4.0 g/dL 3.2-5.0 [facility] Serum or plasma albumin/glob ulin mass ratioOrdered By: Dr. De La Torre on 08-26-2022 Albumin/Globulin [Mass ratio] 0.9 {ratio} 0.9-2.4 [facility] Serum or plasma calcium vel urement (mass/volume)Ordered By: Dr. De La Torre on 08-26-2022 Calcium [Mass/Vol] 9.3 mg/dL 8.5-10.1 [facility] Serum or plasma creatinine m easurement (mass/volume)Ordered By: Dr. De La Torre on 08-26-2022 Creatinine [Mass/Vol] 0.81 mg/dL 0.55-1.02 [facility] Comment on above: The validity of the calculated GFR & GFRAA in patients over 70 years has not been determined. Clinical correlation is essential. Serum or plasma urea nitroge n measurement (mass/volume)Ordered By: Dr. De La Torre on 08-26-2022 Urea nitrogen [Mass/Vol] 9 mg/dL 7-18 [facility] Thin prep Papanicolaou smear with manual screeningOrdered By: Dr. De La Torre on 08-26-2022 Thin prep Papanicolaou smear with manual screening 17 U/L 15-37 [facility] Thin prep Papanicolaou smear with manual screening 7 5-15 [facility] STREP A MOLECULAR (POC)on Procedural Control Valid [facility] Strep A (POCT) Negative Negative [facility] UA DIP, URINE (POC)on 2021 BILIRUBIN UA (POCT) Small Abnormal Negative [facility] CLARITY UA (POCT) Clear [facility] COLOR UA (POCT) Yellow [facility] GLUCOSE UA (POCT) Negative Negative mg/dL [facility] HEMOGLOBIN/BLOOD UA (POCT) Negative Negative [facility] KETONE UA (POCT) Negative Negative mg/dL [facility] LEUKOCYTES UA (POCT) Negative Negative [facility] NITRITE UA (POCT) Negative Negative [facility] PH UA (POCT) 5.5 4.5 - 8.0 [facility] Protein Ql (U) Trace Abnormal Negative mg/dL [facility] SPECIFIC GRAVITY UA (POCT) >=1.030 1.005 - 1.030 [facility] UROBILINOGEN UA (POCT) 0.2 E.U./dL Normal E.U./ dL [facility] Influenza virus A and B and SARS-CoV-2 (COVID-19) Ag panel - Upper respiratory specim SARS-CoV-2 (COVID-19) RNA JAIRON+probe Ql (Resp) [facility] Work Phone: Vital Signs Date Time Vital Sign Value Performing Clinician Facility 02-21-2025 03:36-0400 Body temperature 98.4 [degF] Dr. Mitzy Fung MD Work Phone: 9(366)372-071893 [place] [address] 02-21-2025 03:36-0400 Diastolic blood pressure 68 mm[Hg] Dr. Mitzy Fung MD Work Phone: 2(222)776-386193 [place] [address] 02-21-2025 03:36-0400 Heart rate 74 /min Dr. Mitzy Fung MD Work Phone: 0(337)999-923993 [place] [address] 02-21-2025 03:36-0400 Respiratory rate 16 /min Dr. Mitzy Fung MD Work Phone: 5(446)693-979693 [place] [address] 02-21-2025 03:36-0400 SaO2% (BldA) [Mass fraction] 99 % Dr. Mitzy Fung MD Work Phone: 9(745)649-503893 [place] [address] 02-21-2025 03:36-0400 Systolic blood pressure 115 mm[Hg] Dr. Mitzy Fung MD Work Phone: 8(623)613-676393 [place] [address] 02-21-2025 00:58-0400 Body height 162.[address] Mitzy Fung MD Work Phone: 2(087)032-083993 [place] [address] 02-21-2025 00:58-0400 Body mass index (BMI) [Percentile] Per age and sex 50 % Dr. Mitzy Fung MD Work Phone: 1(157)910-310293 [place] [address] 02-21-2025 00:58-0400 Body mass index (BMI) [Ratio] 21.7 kg/m2 Dr. Mitzy Fung MD Work Phone: 2(928)522-629493 [place] [address] 02-21-2025 00:58-0400 Body weight 57.[address] Mitzy Fung MD Work Phone: 4(469)728-891393 [place] [address] 02-05-2025 12:06-0400 Body temperature 98.2 [degF] Dr. Mitzy Fung MD Work Phone: 8(771)156-855993 [place] [address] 02-05-2025 12:06-0400 Diastolic blood pressure 74 mm[Hg] Dr. Mitzy Fung MD Work Phone: 2(341)538-319293 [place] [address] 02-05-2025 12:06-0400 Heart rate 78 /min Dr. Mitzy Fung MD Work Phone: 3(397)478-745977 [place] [address] 02-05-2025 12:06-0400 Respiratory rate 16 /min Dr. Mitzy Fung MD Work Phone: 9(045)680-274193 [place] [address] 02-05-2025 12:06-0400 SaO2% (BldA) [Mass fraction] 97 % Dr. Mitzy Fung MD Work Phone: 2(341)183-904093 [place] [address] 02-05-2025 12:06-0400 Systolic blood pressure 122 mm[Hg] Dr. Mitzy Fung MD Work Phone: 3(299)785-263893 [place] [address] 02-05-2025 09:26-0400 Body height 162.[address] Mitzy Fung MD Work Phone: 8(532)344-776393 [place] [address] 02-05-2025 09:26-0400 Body mass index (BMI) [Percentile] Per age and sex 43.8 % Dr. Mitzy Fung MD Work Phone: 2(001)877-970993 [place] [address] 02-05-2025 09:26-0400 Body mass index (BMI) [Ratio] 21.2 kg/m2 Dr. Mitzy Fung MD Work Phone: 8(567)809-859093 [place] [address] 02-05-2025 09:26-0400 Body weight 56.[address] Mitzy Fung MD Work Phone: 5(619)700-048193 [place] [address] 01-23-2025 11:04-0400 Body temperature 98 [degF] Dr. Mitzy Fung MD Work Phone: 8(630)273-576493 [place] [address] 01-23-2025 11:04-0400 Diastolic blood pressure 71 mm[Hg] Dr. Mitzy Fung MD Work Phone: 4(063)956-693193 [place] [address] 01-23-2025 11:04-0400 Heart rate 98 /min Dr. Mitzy Fung MD Work Phone: 0(609)396-354293 [place] [address] 01-23-2025 11:04-0400 Respiratory rate 19 /min Dr. Mitzy Fung MD Work Phone: 4(284)898-252893 [place] [address] 01-23-2025 11:04-0400 SaO2% (BldA) [Mass fraction] 1 % Dr. Mitzy Fung MD Work Phone: 0(117)237-768893 [place] [address] 01-23-2025 11:04-0400 Systolic blood pressure 140 mm[Hg] Dr. Mitzy Fung MD Work Phone: 0(906)323-708293 [place] [address] 01-23-2025 09:19-0400 Body height [address] Mitzy Fung MD Work Phone: 8(932)204-440193 [place] [address] 01-23-2025 09:19-0400 Body mass index (BMI) [Percentile] Per age and sex 46.5 % Dr. Mitzy Fung MD Work Phone: 5(976)981-580993 [place] [address] 01-23-2025 09:19-0400 Body mass index (BMI) [Ratio] 21.4 kg/m2 Dr. Mitzy Fung MD Work Phone: 3(431)221-894293 [place] [address] 01-23-2025 09:19-0400 Body weight 58.[address] Mitzy Fung MD Work Phone: 1(570)690-591093 [place] [address] 01-20-2025 19:00-0400 Body temperature 98 [degF] Dr. Mitzy Fung MD Work Phone: 8(696)242-549293 [place] [address] 01-20-2025 19:00-0400 Diastolic blood pressure 57 mm[Hg] Dr. Mitzy Fung MD Work Phone: 6(161)712-799793 [place] [address] 01-20-2025 19:00-0400 Heart rate 69 /min Dr. Mitzy Fung MD Work Phone: 9(070)892-304393 [place] [address] 01-20-2025 19:00-0400 Respiratory rate 18 /min Dr. Mitzy Fung MD Work Phone: 2(640)299-626293 [place] [address] 01-20-2025 19:00-0400 SaO2% (BldA) [Mass fraction] 100 % Dr. Mitzy Fung MD Work Phone: 6(929)541-233193 [place] [address] 01-20-2025 19:00-0400 Systolic blood pressure 116 mm[Hg] Dr. Mitzy Fung MD Work Phone: 6(905)368-597593 [place] [address] 01-20-2025 15:24-0400 Body height 165.[address] Mitzy Fung MD Work Phone: 6(852)001-237993 [place] [address] 01-20-2025 15:24-0400 Body mass index (BMI) [Percentile] Per age and sex 52.6 % Dr. Mitzy Fung MD Work Phone: [facility] 01-20-2025 15:24-0400 Body mass index (BMI) [Ratio] 21.9 kg/m2 Dr. Mitzy Fung MD Work Phone: [facility] 01-20-2025 15:24-0400 Body weight 59.[address] Mitzy Fung MD Work Phone: [facility] 08-27-2024 11:54-0500 Body mass index (BMI) [Ratio] 21.08 kg/m2 Jasmin Praisler-Wood CONING MACHINE OPERATOR.GARMENT INSPECTOR Work Phone: [facility] 08-27-2024 11:54-0500 Body temperature 98.4 [degF] Jasmin Praisler-Wood CONING MACHINE OPERATOR.GARMENT INSPECTOR Work Phone: [facility] 08-27-2024 11:54-0500 Body weight 57.1 kg Jasmin Praisler-Wood CONING MACHINE OPERATOR.GARMENT INSPECTOR Work Phone: [facility] 08-27-2024 11:54-0500 Diastolic blood pressure 78 mm[Hg] Jasmin Praisler-Wood CONING MACHINE OPERATOR.GARMENT INSPECTOR Work Phone: [facility] 08-27-2024 11:54-0500 Heart rate 106 /min Jasmin Praisler-Wood CONING MACHINE OPERATOR.GARMENT INSPECTOR Work Phone: [facility] 08-27-2024 11:54-0500 Respiratory rate 20 /min Jasmin Praisler-Wood CONING MACHINE OPERATOR.GARMENT INSPECTOR Work Phone: [facility] 08-27-2024 11:54-0500 SaO2% (BldA) [Mass fraction] 97 % Jasmin Praisler-Wood CONING MACHINE OPERATOR.GARMENT INSPECTOR Work Phone: [facility] 08-27-2024 11:54-0500 Systolic blood pressure 110 mm[Hg] Jasmin Praisler-Wood CONING MACHINE OPERATOR.GARMENT INSPECTOR Work Phone: [facility] 01-26-2024 16:26-0400 Body temperature 97.9 [degF] Martínez Moomaw CONING MACHINE OPERATOR.GARMENT INSPECTOR Work Phone: [facility] 01-26-2024 16:26-0400 Body weight 60 kg Martínez Moomaw CONING MACHINE OPERATOR.GARMENT INSPECTOR Work Phone: [facility] 01-26-2024 16:26-0400 Diastolic blood pressure 60 mm[Hg] Martínez Moomaw CONING MACHINE OPERATOR.GARMENT INSPECTOR Work Phone: [facility] 01-26-2024 16:26-0400 Heart rate 80 /min Martínez Moomaw CONING MACHINE OPERATOR.GARMENT INSPECTOR Work Phone: [facility] 01-26-2024 16:26-0400 Respiratory rate 16 /min Martínez Moomaw CONING MACHINE OPERATOR.GARMENT INSPECTOR Work Phone: [facility] 01-26-2024 16:26-0400 SaO2% (BldA) [Mass fraction] 99 % Martínez Moomaw CONING MACHINE OPERATOR.GARMENT INSPECTOR Work Phone: [facility] 01-26-2024 16:26-0400 Systolic blood pressure 102 mm[Hg] Martínez Moomaw CONING MACHINE OPERATOR.GARMENT INSPECTOR Work Phone: [facility] 12-29-2023 16:49-0400 Body temperature 97.3 [degF] Jasmin Praisler-Wood CONING MACHINE OPERATOR.GARMENT INSPECTOR Work Phone: [facility] 12-29-2023 16:49-0400 Body weight 58.6 kg Jasmin Praisler-Wood CONING MACHINE OPERATOR.GARMENT INSPECTOR Work Phone: [facility] 12-29-2023 16:49-0400 Diastolic blood pressure 79 mm[Hg] Jasmin Praisler-Wood CONING MACHINE OPERATOR.GARMENT INSPECTOR Work Phone: [facility] 12-29-2023 16:49-0400 Heart rate 94 /min Jasmin Praisler-Wood CONING MACHINE OPERATOR.GARMENT INSPECTOR Work Phone: [facility] 12-29-2023 16:49-0400 Respiratory rate 18 /min Jasmin Praisler-Wood CONING MACHINE OPERATOR.GARMENT INSPECTOR Work Phone: [facility] 12-29-2023 16:49-0400 SaO2% (BldA) [Mass fraction] 100 % Jasmin Enriquez CONING MACHINE OPERATOR.GARMENT INSPECTOR Work Phone: [facility] 12-29-2023 16:49-0400 Systolic blood pressure 129 mm[Hg] Jasmin Enriquez CONING MACHINE OPERATOR.GARMENT INSPECTOR Work Phone: [facility] 12-24-2023 09:16-0400 Body temperature 99 [degF] [facility] 12-24-2023 09:16-0400 Diastolic blood pressure 88 mm[Hg] [facility] 12-24-2023 09:16-0400 Heart rate 58 /min [facility] 12-24-2023 09:16-0400 Respiratory rate 16 /min [facility] 12-24-2023 09:16-0400 SaO2% (BldA) [Mass fraction] 100 % [facility] 12-24-2023 09:16-0400 Systolic blood pressure 121 mm[Hg] [facility] 12-24-2023 07:12-0400 Body height 165.1 cm [facility] 12-24-2023 07:12-0400 Body mass index (BMI) [Percentile] Per age and sex 46.6 % [facility] 12-24-2023 07:12-0400 Body mass index (BMI) [Ratio] 21.2 kg/m2 [facility] 12-24-2023 07:12-0400 Body weight 58 kg [facility] 11-14-2023 18:27-0400 Body temperature 98.4 [degF] [facility] 11-14-2023 18:27-0400 Diastolic blood pressure 59 mm[Hg] [facility] 11-14-2023 18:27-0400 Heart rate 77 /min [facility] 11-14-2023 18:27-0400 Respiratory rate 16 /min [facility] 11-14-2023 18:27-0400 SaO2% (BldA) [Mass fraction] 100 % [facility] 11-14-2023 18:27-0400 Systolic blood pressure 113 mm[Hg] [facility] 11-14-2023 13:07-0400 Body height 165.1 cm [facility] 11-14-2023 13:07-0400 Body mass index (BMI) [Percentile] Per age and sex 60.1 % [facility] 11-14-2023 13:07-0400 Body mass index (BMI) [Ratio] 22.3 kg/m2 [facility] 11-14-2023 13:07-0400 Body weight 60.8 kg [facility] 11-14-2023 12:40-0400 Body temperature 97.5 [degF] Loni Escobar APRN.GARMENT INSPECTOR Work Phone: [facility] 11-14-2023 12:40-0400 Body weight 60.9 kg Loni Escobar APRN.GARMENT INSPECTOR Work Phone: [facility] 11-14-2023 12:40-0400 Diastolic blood pressure 62 mm[Hg] Loni Escobar APRN.GARMENT INSPECTOR Work Phone: [facility] 11-14-2023 12:40-0400 Heart rate 74 /min Loni Escobar APRN.GARMENT INSPECTOR Work Phone: [facility] 11-14-2023 12:40-0400 Respiratory rate 21 /min Loni Escobar APRN.GARMENT INSPECTOR Work Phone: [facility] 11-14-2023 12:40-0400 SaO2% (BldA) [Mass fraction] 99 % Loni Escobar APRN.GARMENT INSPECTOR Work Phone: [facility] 11-14-2023 12:40-0400 Systolic blood pressure 120 mm[Hg] Loni Escobar APRN.GARMENT INSPECTOR Work Phone: [facility] 10-30-2023 16:02-0500 Body temperature 97.81 [degF] Lillian Sanchez APRN.GARMENT INSPECTOR Work Phone: [facility] 10-30-2023 16:02-0500 Body weight 58.8 kg Lillian Sanchez APRN.GARMENT INSPECTOR Work Phone: [facility] 10-30-2023 16:02-0500 Diastolic blood pressure 74 mm[Hg] Lillian Sanchez CONING MACHINE OPERATOR.GARMENT INSPECTOR Work Phone: [facility] 10-30-2023 16:02-0500 Heart rate 102 /min Lillian Sanchez CONING MACHINE OPERATOR.GARMENT INSPECTOR Work Phone: [facility] 10-30-2023 16:02-0500 Respiratory rate 18 /min Lillian Sanchez CONING MACHINE OPERATOR.GARMENT INSPECTOR Work Phone: [facility] 10-30-2023 16:02-0500 SaO2% (BldA) [Mass fraction] 99 % Lillian Sanchez CONING MACHINE OPERATOR.GARMENT INSPECTOR Work Phone: [facility] 10-30-2023 16:02-0500 Systolic blood pressure 114 mm[Hg] Lillian Sanchez CONING MACHINE OPERATOR.GARMENT INSPECTOR Work Phone: [facility] 09-25-2023 05:12-0500 Body temperature 98 [degF] [facility] 09-25-2023 05:12-0500 Diastolic blood pressure 83 mm[Hg] [facility] 09-25-2023 05:12-0500 Heart rate 72 /min [facility] 09-25-2023 05:12-0500 Respiratory rate 18 /min [facility] 09-25-2023 05:12-0500 SaO2% (BldA) [Mass fraction] 99 % [facility] 09-25-2023 05:12-0500 Systolic blood pressure 129 mm[Hg] [facility] 09-25-2023 04:30-0500 Body height 165.1 cm [facility] 09-25-2023 04:30-0500 Body mass index (BMI) [Percentile] Per age and sex 59.5 % [facility] 09-25-2023 04:30-0500 Body mass index (BMI) [Ratio] 22.2 kg/m2 [facility] 09-25-2023 04:30-0500 Body weight 60.7 kg [facility] 07-28-2023 18:54-0500 Body temperature 98.1 [degF] Ivonne Dawson CONING MACHINE OPERATOR.GARMENT INSPECTOR Work Phone: [facility] 07-28-2023 18:54-0500 Body weight 59.78 kg Ivonne Dawson CONING MACHINE OPERATOR.GARMENT INSPECTOR Work Phone: [facility] 07-28-2023 18:54-0500 Diastolic blood pressure 70 mm[Hg] Ivonne Dawson CONING MACHINE OPERATOR.GARMENT INSPECTOR Work Phone: [facility] 07-28-2023 18:54-0500 Heart rate 83 /min Ivonne Dawson CONING MACHINE OPERATOR.GARMENT INSPECTOR Work Phone: [facility] 07-28-2023 18:54-0500 Respiratory rate 16 /min Ivonne Dawson CONING MACHINE OPERATOR.GARMENT INSPECTOR Work Phone: [facility] 07-28-2023 18:54-0500 SaO2% (BldA) [Mass fraction] 100 % Ivonne Dawson CONING MACHINE OPERATOR.GARMENT INSPECTOR Work Phone: [facility] 07-28-2023 18:54-0500 Systolic blood pressure 102 mm[Hg] Ivonne Dawson CONING MACHINE OPERATOR.GARMENT INSPECTOR Work Phone: [facility] 07-04-2023 09:16-0500 Body mass index (BMI) [Percentile] Per age and sex 78.9 % [facility] 07-04-2023 09:16-0500 Body mass index (BMI) [Ratio] 24.5 kg/m2 [facility] 07-04-2023 09:16-0500 Body temperature 98.2 [degF] [facility] 07-04-2023 09:16-0500 Body weight 64.7 kg [facility] 07-04-2023 09:16-0500 Diastolic blood pressure 109 mm[Hg] [facility] 07-04-2023 09:16-0500 Heart rate 114 /min [facility] 07-04-2023 09:16-0500 Respiratory rate 23 /min [facility] 07-04-2023 09:16-0500 SaO2% (BldA) [Mass fraction] 98 % [facility] 07-04-2023 09:16-0500 Systolic blood pressure 123 mm[Hg] [facility] 02-04-2023 21:31-0400 Body height 167.64 cm [facility] 02-04-2023 21:31-0400 Body mass index (BMI) [Percentile] Per age and sex 62.8 % [facility] 02-04-2023 21:31-0400 Body mass index (BMI) [Ratio] 22.3 kg/m2 [facility] 02-04-2023 21:31-0400 Body temperature 99.5 [degF] [facility] 02-04-2023 21:31-0400 Body weight 62.7 kg [facility] 02-04-2023 21:31-0400 Diastolic blood pressure 70 mm[Hg] [facility] 02-04-2023 21:31-0400 Heart rate 108 /min [facility] 02-04-2023 21:31-0400 Respiratory rate 18 /min [facility] 02-04-2023 21:31-0400 SaO2% (BldA) [Mass fraction] 99 % [facility] 02-04-2023 21:31-0400 Systolic blood pressure 108 mm[Hg] [facility] 11-28-2022 18:28-0400 Respiratory rate 18 /min [facility] 11-28-2022 14:19-0400 Body height 162.56 cm [facility] 11-28-2022 14:19-0400 Body mass index (BMI) [Percentile] Per age and sex 63.5 % [facility] 11-28-2022 14:19-0400 Body mass index (BMI) [Ratio] 22.3 kg/m2 [facility] 11-28-2022 14:19-0400 Body temperature 98 [degF] [facility] 11-28-2022 14:19-0400 Body weight 58.96 kg [facility] 11-28-2022 14:19-0400 Diastolic blood pressure 85 mm[Hg] [facility] 11-28-2022 14:19-0400 Heart rate 96 /min [facility] 11-28-2022 14:19-0400 SaO2% (BldA) [Mass fraction] 100 % [facility] 11-28-2022 14:19-0400 Systolic blood pressure 129 mm[Hg] [facility] 11-18-2022 04:39-0400 Body temperature 98.2 [degF] [facility] 11-18-2022 04:39-0400 Diastolic blood pressure 68 mm[Hg] [facility] 11-18-2022 04:39-0400 Heart rate 79 /min [facility] 11-18-2022 04:39-0400 Respiratory rate 16 /min [facility] 11-18-2022 04:39-0400 SaO2% (BldA) [Mass fraction] 98 % [facility] 11-18-2022 04:39-0400 Systolic blood pressure 108 mm[Hg] [facility] 11-18-2022 01:45-0400 Body height 162.56 cm [facility] 11-18-2022 01:45-0400 Body mass index (BMI) [Percentile] Per age and sex 70.1 % [facility] 11-18-2022 01:45-0400 Body mass index (BMI) [Ratio] 23 kg/m2 [facility] 11-18-2022 01:45-0400 Body temperature 98.7 [degF] [facility] 11-18-2022 01:45-0400 Body weight 60.9 kg [facility] 11-18-2022 01:45-0400 Heart rate 93 /min [facility] 11-18-2022 01:45-0400 Respiratory rate 17 /min [facility] 11-18-2022 01:45-0400 SaO2% (BldA) [Mass fraction] 96 % [facility] 11-18-2022 01:41-0400 Diastolic blood pressure 65 mm[Hg] [facility] 11-18-2022 01:41-0400 Systolic blood pressure 103 mm[Hg] [facility] 11-12-2022 12:56-0400 Body temperature 96.9 [degF] [facility] 11-12-2022 12:56-0400 Diastolic blood pressure 62 mm[Hg] [facility] 11-12-2022 12:56-0400 Heart rate 74 /min [facility] 11-12-2022 12:56-0400 Respiratory rate 16 /min [facility] 11-12-2022 12:56-0400 SaO2% (BldA) [Mass fraction] 98 % [facility] 11-12-2022 12:56-0400 Systolic blood pressure 105 mm[Hg] [facility] 11-12-2022 09:49-0400 Body height 167.64 cm [facility] 11-12-2022 09:49-0400 Body mass index (BMI) [Percentile] Per age and sex 48.5 % [facility] 11-12-2022 09:49-0400 Body mass index (BMI) [Ratio] 21 kg/m2 [facility] 11-12-2022 09:49-0400 Body weight 59.2 kg [facility] 08-26-2022 11:28-0500 Respiratory rate 20 /min [facility] 08-26-2022 09:51-0500 Body height 167.64 cm [facility] Work Phone: 08-26-2022 09:51-0500 Body mass index (BMI) [Percentile] Per age and sex 58.1 % [facility] 08-26-2022 09:51-0500 Body mass index (BMI) [Ratio] 21.7 kg/m2 [facility] 08-26-2022 09:51-0500 Body temperature 97.4 [degF] [facility] 08-26-2022 09:51-0500 Body weight 61.23 kg [facility] 08-26-2022 09:51-0500 Diastolic blood pressure 86 mm[Hg] [facility] 08-26-2022 09:51-0500 Heart rate 106 /min [facility] 08-26-2022 09:51-0500 SaO2% (BldA) [Mass fraction] 99 % [facility] 08-26-2022 09:51-0500 Systolic blood pressure 121 mm[Hg] [facility] 08-25-2022 16:19-0500 Body temperature 100.09 [degF] Moe Simons MD Work Phone: [facility] 08-25-2022 16:19-0500 Body weight 58.06 kg Moe Simons MD Work Phone: [facility] 08-25-2022 16:19-0500 Diastolic blood pressure 86 mm[Hg] Moe Simons MD Work Phone: [facility] 08-25-2022 16:19-0500 Heart rate 109 /min Moe Simons MD Work Phone: [facility] 08-25-2022 16:19-0500 Respiratory rate 18 /min Moe Simons MD Work Phone: [facility] 08-25-2022 16:19-0500 SaO2% (BldA) [Mass fraction] 100 % Moe Simons MD Work Phone: [facility] 08-25-2022 16:19-0500 Systolic blood pressure 120 mm[Hg] Moe Simons MD Work Phone: [facility] 06-24-2022 08:19-0400 Body temperature 97.9 [degF] Gus Pendlebury CONING MACHINE OPERATOR.GARMENT INSPECTOR Work Phone: [facility] 06-24-2022 08:19-0400 Body weight 61.33 kg Gus Pendlebury CONING MACHINE OPERATOR.GARMENT INSPECTOR Work Phone: [facility] 06-24-2022 08:19-0400 Diastolic blood pressure 76 mm[Hg] Gus Pendlebury CONING MACHINE OPERATOR.GARMENT INSPECTOR Work Phone: [facility] 06-24-2022 08:19-0400 Heart rate 101 /min Gus Pendlebury CONING MACHINE OPERATOR.GARMENT INSPECTOR Work Phone: [facility] 06-24-2022 08:19-0400 Respiratory rate 16 /min Gus Pendlebury CONING MACHINE OPERATOR.GARMENT INSPECTOR Work Phone: [facility] 06-24-2022 08:19-0400 SaO2% (BldA) [Mass fraction] 98 % Gus Pendlebury CONING MACHINE OPERATOR.GARMENT INSPECTOR Work Phone: [facility] 06-24-2022 08:19-0400 Systolic blood pressure 124 mm[Hg] [facility] CONING MACHINE OPERATOR.GARMENT INSPECTOR Work Phone: [facility] 01-17-2022 13:00-0400 Body temperature 97.7 [degF] [facility] CONING MACHINE OPERATOR.GARMENT INSPECTOR Work Phone: [facility] 01-17-2022 13:00-0400 Body weight 60.06 kg [facility] CONING MACHINE OPERATOR.GARMENT INSPECTOR Work Phone: [facility] 01-17-2022 13:00-0400 Diastolic blood pressure 60 mm[Hg] [facility] CONING MACHINE OPERATOR.GARMENT INSPECTOR Work Phone: [facility] 01-17-2022 13:00-0400 Heart rate 90 /min [facility] CONING MACHINE OPERATOR.GARMENT INSPECTOR Work Phone: [facility] 01-17-2022 13:00-0400 Respiratory rate 16 /min [facility] [facility] CONING MACHINE OPERATOR.GARMENT INSPECTOR Work Phone: [facility] 01-17-2022 13:00-0400 SaO2% (BldA) [Mass fraction] 99 % [facility] CONING MACHINE OPERATOR.GARMENT INSPECTOR Work Phone: [facility] 01-17-2022 13:00-0400 Systolic blood pressure 114 mm[Hg] [facility] CONING MACHINE OPERATOR.GARMENT INSPECTOR Work Phone: [facility] Encounters Encounter Date Encounter Type Care Provider Facility Start: 03-10-2025 ambulatory Flor Salazar cility:[facility] Start: 02-23-2025 End: 02-23-[address] Mitzy Fung MD Work Phone: -Ultrasound [facility] Start: 02-23-2025 End: 02-23-2025 Patient encounter procedure Teodoro Garcia DO -Ultrasound [facility] Work Phone: Start: 02-23-2025 End: 02-23-2025 ambulatory Mitzy Fung Facility:[facility] Start: 02-21-2025 End: 02-21-2025 Emergency department patient visit Dr. Mitzy Fung MD Work Phone: -Emergency Department Work Phone: Start: 02-05-2025 End: 02-05-2025 Emergency department patient [...] by physician Lois Conde MD Work Phone: [facility] Comment on above: Weight loss; Family history of type 2 diabetes mellitus Start: 09-07-2024 End: 09-07-2024 ambulatory [facility] Start: 08-29-2024 End: 08-29-2024 ambulatory [facility] Start: 08-29-2024 End: 08-29-2024 ambulatory [facility] Facility:[facility] Start: 08-27-2024 End: 08-27-2024 ambulatory MITZY LARIOS [place] Facility:[facility] Start: 08-27-2024 End: 08-27-2024 Patient encounter procedure Jasmin Enriquez APRN.CNP Work Phone: [facility] Comment on above: Sore throat (Primary Dx); Pharyngitis, unspecified etiology; Wheezing; Viral URI with cough; Bronchitis Start: 06-15-2024 End: 06-15-2024 ambulatory Mitzy Tazewell Facility:[facility] Start: 04-24-2024 End: 04-26-2024 Evaluation and management of inpatient NATANAEL LARIOS REZA Facility:[id number] Start: 04-23-2024 End: 04-24-2024 Emergency department patient visit Mitzy Fung Facility:[facility] Start: 04-20-2024 End: 04-20-[address] [facility] Start: 2024 End: 2024 Emergency department patient visit Mitzy Tazewell Facility:[facility] Start: 04-12-2024 End: 04-12-2024 Emergency department patient visit Javier Isabel Facility:[facility] Start: 01-26-2024 End: 01-26-2024 ambulatory [facility] Facility:[facility] Start: 01-26-2024 End: 01-26-2024 Patient encounter procedure Martínez Lyles APRN.GARMENT INSPECTOR Work Phone: [facility] Comment on above: Ear pain, right (Tanya sadiq Dx) Start: 12-29-2023 End: 12-29-2023 ambulatory [facility] Facility:[facility] Start: 12-29-2023 End: 12-29-2023 Patient encounter procedure Jasmin Enriquez APRN.GARMENT INSPECTOR Work Phone: [facility] Comment on above: Burning with urinati on (Primary Dx); Otalgia of right ear Start: 12-24-2023 End: 12-24-2023 Admission to same day surgery center [facility] Start: 12-24-2023 End: 12-24-2023 [facility] Work Phone: Start: 11-14-2023 End: 11-14-2023 Emergency department patient visit [facility]-Emergency Department Work Phone: Start: 11-14-2023 End: 11-14-2023 ambulatory [facility] Facility:[facility] Start: 11-14-2023 End: 11-14-2023 Patient encounter procedure Loni Escobar APRN.GARMENT INSPECTOR Work Phone: [facility] Comment on above: Pain in pelvis (Prim vivien Dx); Flank pain Start: 10-31-2023 Telephone encounter Moe Vines MD Work Phone: [email or web address] Comment on above: Results (Prince +) Start: 10-30-2023 End: 10-30-2023 ambulatory [facility] Facility:[facility] Start: 10-30-2023 End: 10-30-2023 Patient encounter procedure Lillian Sanchez CONING MACHINE OPERATOR.GARMENT INSPECTOR Work Phone: [facility] Comment on above: Dysuria (Primary Dx) Start: 09-25-2023 End: 09-25-2023 Emergency department patient visit [facility]-Emergency Department Work Phone: Start: 08-02-2023 End: 08-02-2023 Nursing evaluation of patient and report Nurse [facility] Work Phone: [facility] Comment on above: Urinary frequency (P rimary Dx) Start: 07-30-2023 Telephone encounter Lillian ruffin CONING MACHINE OPERATOR.GARMENT INSPECTOR Work Phone: [facility] Comment on above: Results Start: 07-28-2023 End: 07-28-2023 Patient encounter procedure Ivonne Dawson CONING MACHINE OPERATOR.GARMENT INSPECTOR Work Phone: [facility] Comment on above: Urinary frequency (P rimary Dx) Start: 07-04-2023 End: 07-04-2023 Emergency department patient visit [facility]-Emergency Department Work Phone: Start: 03-27-2023 End: 03-27-2023 ambulatory [facility] Work Phone: Start: 03-27-2023 End: 03-27-2023 Patient encounter procedure [facility]-Laboratory Work Phone: Start: 03-19-2023 End: 03-19-2023 ambulatory [facility] Work Phone: Start: 03-19-2023 End: 03-19-2023 Patient encounter procedure [facility]Labor[facility] Work Phone: Start: 02-04-2023 End: 02-04-2023 Emergency department patient visit [facility]-Emergency Department Start: 12-01-2022 End: 12-01-2022 Patient encounter procedure [facility]-Laboratory Start: 11-28-2022 End: 11-28-2022 Emergency department patient visit [facility]-Emergency Department Start: 11-24-2022 End: 11-24-2022 Subsequent hospital visit by physician Codi Lemus APRN-GARMENT INSPECTOR Work Phone: [facility] Comment on above: Hirsutism; Irregular menses Start: 11-18-2022 End: 11-18-2022 Admission to same day surgery center [facility] Start: 11-18-2022 End: 11-18-2022 ambulatory [facility] Work Phone: Start: 11-12-2022 End: 11-12-2022 Emergency department patient visit [facility]-Emergency Department Start: 11-10-2022 End: 11-10-2022 ambulatory [facility] Work Phone: Start: 11-10-2022 End: 11-10-2022 Patient encounter procedure [facility]Cat [place], [facility] Start: 08-26-2022 Telephone encounter Jasmin Clinton APRN.GARMENT INSPECTOR Work Phone: [facility] Comment on above: Results Start: 08-26-2022 End: 08-26-2022 Emergency department patient visit [facility]-Emergency Department Start: 08-25-2022 End: 08-25-2022 Patient encounter procedure Moe Simons MD Work Phone: [facility] Comment on above: Sore throat (Primary Dx); Influenza-like illness Start: 06-25-2022 Telephone encounter Lillian ruffin APRN.GARMENT INSPECTOR Work Phone: [facility] Comment on above: Results, Lab Start: 06-24-2022 End: 06-24-2022 Patient encounter procedure Gus Munroe CONING MACHINE OPERATOR.GARMENT INSPECTOR Work Phone: [email or web address] Comment on above: Urinary frequency (P rimary Dx) Start: 01-17-2022 End: 01-17-2022 Patient encounter procedure Gus Munroe APRN.GARMENT INSPECTOR Work Phone: [facility] Comment on above: Abdominal pain, unsp ecified abdominal location (Primary Dx); Acute sinusitis, recurrence not specified, unspecified location Start: 11-20-2006 Patient encounter status Gus Munroe CONING MACHINE OPERATOR.[facility] Work Phone: [facility] Work Phone: Procedures Date Procedure Procedure Detail Performing Clinician Start: 02-23-[address] Aviva Fung MD Work Phone: Start: 02-21-2025 Urnls dip stick/tabl et reagent auto microscopy Dr. Mitzy Fung MD Work Phone: Start: 02-21-[address] Mitzy Fung MD Work Phone: Start: 02-05-2025 Urnls dip stick/tabl et reagent [...] 08-27-2024 STREP A MOLECULAR (POC) Loni Escobar CONING MACHINE OPERATOR.[facility] Work Phone: Start: 12-29-2023 Urnls dip stick/tabl et rgnt auto w/o microscopy Senait Kraus PA-C Work Phone: Start: 12-24-2023 Pelvic examination u nder anesthesia Start: 11-14-2023 Urine culture Start: 11-14-2023 CT of abdomen and pe lvis without contrast Start: 11-14-2023 Urnls dip stick/tabl et rgnt auto w/o microscopy Lillian Sanchez CONING MACHINE OPERATOR.GARMENT INSPECTOR Work Phone: Start: 10-30-2023 Urnls dip stick/tabl et rgnt auto w/o microscopy Jasmin Enriquez CONING MACHINE OPERATOR.GARMENT INSPECTOR Work Phone: Start: 07-28-2023 Urnls dip stick/tabl [...] of thyroid stimulating hormone tsh Codi Lemus CONING MACHINE OPERATOR-[facility] Work Phone: Start: 11-18-2022 Local destruction of [...] et rgnt auto w/o microscopy Gus Munroe CONING MACHINE OPERATOR.GARMENT INSPECTOR Work Phone: Bacteria identificat ion test Bacteria identified in Urine by Culture SARS-CoV-2 & FLU Ant igen (Rapid) SARS-CoV-2 & FLU Ant igen (Rapid) Urine culture Urine culture Plan of Treatment Date Care Activity Detail Author Start: 04-28-2027 Tetanus Diphtheria a nd Pertussis Vaccines (7 - Td or Tdap) Tetanus Diphtheria and Pertussis Vaccines (7 - Td or Tdap) [facility] Start: 04-28-2027 Urine microalbumin profile DTa P,Tdap,Td Vaccine (7 - Td or Tdap) [facility] Start: 02-21-2025 US Pelvis [facility] Start: 02-21-2025 [facility] Start: 02-05-2025 [facility] Start: 01-23-2025 [facility] Start: 01-20-2025 [facility] Start: 04-24-2024 COVID-19 (2023-2 5 season) COVID-19 ( season) [facility] Start: 04-24-2024 Covid-19 Vaccine ( season) Covid-19 Vaccine ( season) [facility] Start: 04-24-2024 Influenza vaccination C [facility] Start: 2024 Pneumococcal vaccination Pneum ococcal Vaccine (1 of 2 - PCV) [facility] Start: 03-10-2024 Well Visit Well Visit [facility] Start: 12-24-2023 Patient discharge [facility] Start: 11-14-2023 [facility] Start: 11-14-2023 Bacteria identified in Urine by Culture [facility] Start: 11-14-2023 [facility] Start: 09-25-2023 [facility] Start: 08-24-2023 Behavioral Health Screening Behavioral Health Screening [facility] Start: 08-24-2023 Depression Assessment Depression Ass essment [facility] Start: 07-30-2023 End: 10-29-2023 Bacteria identified in Urine by Culture URINE CULTURE Microbiology Routine Urinary frequency Expected: 07/30/2023, Expires: 10/29/2023 [facility] Work Phone: Comment on above: Expected: 07/30/2023 , Expires: 10/29/2023 Start: 07-04-2023 [facility] Start: 04-24-2023 Covid-19 Vaccine () Covid-19 Vaccine () [facility] Start: 04-24-2023 Influenza vaccination Influenza Vacc ine (#1) [facility] Start: 2023 Annual PCP Team Conservation Enforcement Officer hunter Disease Visit Annual PCP Team Chronic Disease Visit [facility] Start: 2023 Anxiety Screening Anxiety Screening [facility] Start: 2023 Chlamydia Screening (18-24) Chlamydia Screening (18-24) [facility] Start: 2023 Depression Screening Depression Scre ening [facility] Start: 2023 GC (Gonorrhea) Scree rosa (18-24) GC (Gonorrhea) Screening (18-24) [facility] Start: 2023 Hearing Screening Hearing Screening [facility] Start: 2023 Hepatitis C Screening Hepatitis C [facility] Start: 2023 Hepatitis C screening Hepatitis C [facility] Start: 2023 HIV Screening HIV Screening [facility] Start: 2023 HIV screening HIV Screening [facility] Start: 2023 PATH Education 18+ Years PATH Education 18+ Years [facility] Start: 2023 Screening for Chlamy edilia trachomatis Chlamydia Screening () [facility] Start: 2023 Spirometry Spirometry [facility] Start: 11-28-2022 [facility] Start: 11-18-2022 Anesthesia intraperi toneal lower abd w/laps nos ANESTH SURG LOWER ABDOMEN [facility] Start: 11-18-2022 Laps surg w/aspir cavity/cyst single/multiple LAPAROSCOPY ASPIRATION [facility] Start: 11-18-2022 Ambulation without limitation [facility] Start: 11-18-2022 Catheterization of vein [facility] Start: 11-18-2022 Medical regimen orde rs management [facility] Start: 11-18-2022 Medication education [facility] Start: 11-18-2022 Notification of physician [facility] Start: 11-18-2022 Oxygen therapy [facility] Start: 11-18-2022 End: 11-18-2022 Patient discharge [facility] Start: 11-18-2022 Procedure discontinued [facility] Start: 11-18-2022 Taking patient vital signs [facility] Start: 11-18-2022 Vital signs measurements [facility] Start: 11-18-2022 [facility] Start: 11-18-2022 Local destruction of ovary Lap aroscopic, Ovarian Cystectomy (Right) [facility] Start: 11-18-2022 Verification routine [facility] Start: 11-18-2022 Admission procedure [facility] Start: 11-18-2022 [facility] Start: 08-26-2022 [facility] Start: 08-24-2022 Depression Assessment Depression Ass essment [facility] Start: 04-26-2022 Well Visit Well Visit [facility] Start: 04-24-2022 FLU (#1) FLU (#1) [facility] Start: 04-24-2022 Influenza vaccination INFLUENZA (#1) [facility] Start: 10-21-2021 COVID-19 VACCINE (3 - Booster for Pfizer series) COVID-19 VACCINE (3 - Booster for Pfizer series) [facility] Start: 07-17-2021 COVID-19 (3 - Booste r for Pfizer series) COVID-19 (3 - Booster for Pfizer series) [facility] Start: 07-17-2021 COVID-19 VACCINE (3 - Booster for Pfizer series) COVID-19 VACCINE (3 - Booster for Pfizer series) [facility] Start: 05-24-2021 MenB (2 of 2 - MenB 2-Dose Series Bexsero) MenB (2 of 2 - MenB 2-Dose Series Bexsero) [facility] Start: 2021 MENINGOCOCCAL CONJUG ATE (1 - 2-dose series) MENINGOCOCCAL CONJUGATE (1 - 2-dose series) [facility] Start: 2020 CHLAMYDIA SCREENING (<18) CHLA MYDIA SCREENING (<18) [facility] Start: 2020 GC (GONORRHEA) SCREE ROSA (<18) GC (GONORRHEA) SCREENING (<18) [facility] Start: 2020 Hearing Screening Hearing Screening [facility] Start: 2020 PATH Education 15-17 + Years PATH Education 15-17+ Years [facility] Start: 2020 Vision Screening Vision Screening [facility] Start: 2019 PEDS TO ADULT TRANSI TION ANNUAL ASSESSMENT PEDS TO ADULT TRANSITION ANNUAL ASSESSMENT [facility] Start: 2017 Adult depression scr eening assessment DEPRESSION SCREENING [facility] Start: 2017 PATH Education 12-14 + Years PATH Education 12-14+ Years [facility] Start: 2017 PATH Transitional Assessment PATH Transitional Assessment [facility] Start: 2017 PEDS TO ADULT TRANSI TION INITIAL DISCUSSION PEDS TO ADULT TRANSITION INITIAL DISCUSSION [facility] Start: 2016 HPV VACCINE (1 - 2-d ose series) HPV VACCINE (1 - 2-dose series) [facility] Start: 2015 MENINGOCOCCAL B: Con manager green based on risk (1 of 2 - Risk Bexsero 2-dose series) MENINGOCOCCAL B: Consider based on risk (1 of 2 - Risk Bexsero 2-dose series) [facility] Start: 2012 Urine microalbumin profile DTAP,TDAP ,TD (4 - Tdap) [facility] Start: 2011 PNEUMOCOCCAL (1 - PPSV23) PNEU MOCOCCAL (1 - PPSV23) [facility] Start: 2011 Pneumococcal vaccination [facility] Start: 2009 ASTHMA CONTROL TEST ASTHMA CONTROL T EST [facility] Start: 2009 MMR (2 of 2 - Standa rd series) MMR (2 of 2 - Standard series) [facility] Start: 2009 VARICELLA (2 of 2 - 2-dose childhood series) VARICELLA (2 of 2 - 2-dose childhood series) [facility] Start: 2007 ASTHMA ACTION PLAN ASTHMA ACTION VALERIE N [facility] Start: 2005 POLIO (1 of 3 - 4-do se series) POLIO (1 of 3 - 4-dose series) [facility] Bacteria identified in Urine by Culture URINE CULTURE Microbiology Routine Urinary frequency Ordered: 06/24/2022 [facility] Work Phone: Comment on above: Ordered: 06/24/2022 Bacteria identified in Urine by Culture Urine Culture [facility] Bacteria identified in Urine by Culture URINE CULTURE Microbiology Routine Urinary frequency 07/28/2023 7:38 PM EST [facility] Work Phone: Bacteria identified in Urine by Culture URINE CULTURE Microbiology Routine Dysuria Ordered: 10/30/2023 [facility] Work Phone: Comment on above: Ordered: 10/30/2023 Bacteria identified in Urine by Culture URINE CULTURE Microbiology Routine Burning with urination 12/29/2023 5:02 PM EDT [facility] Work Phone: BACTERIAL VAGINOSIS AMPLIFICATION BACTERIAL VAGINOSIS AMPLIFICATION Lab Routine Urinary frequency Ordered: 06/24/2022 [facility] Work Phone: Comment on above: Ordered: 06/24/2022 BACTERIAL VAGINOSIS NAAT BACTERI AL VAGINOSIS NAAT Lab Routine Dysuria Ordered: 10/30/2023 [facility] Work Phone: Comment on above: Ordered: 10/30/2023 PRINCE / TRICHOMONA S AMPLIFICATION PRINCE / TRICHOMONAS AMPLIFICATION Microbiology Routine Urinary frequency Ordered: 06/24/2022 [facility] Work Phone: Comment on above: Ordered: 06/24/2022 PRINCE/TRICHOMONAS NAAT PRINCE /TRICHOMONAS NAAT Lab Routine Dysuria Ordered: 10/30/2023 [facility] Work Phone: Comment on above: Ordered: 10/30/2023 COVID & INFLUENZA A/ B & RSV PCR, ROUTINE COVID & INFLUENZA A/B & RSV PCR, ROUTINE Microbiology Routine Viral URI with cough Ordered: 08/27/2024 [facility] Work Phone: Comment on above: Ordered: 08/27/2024 DHEA Sulfate DHEA Sulfate Lab Routine Hirsutism 11/24/2022 3:30 PM EDT [facility] Lactic acid measurement [facility] Patient Education [facility] Work Phone: Patient referral [facility] Work Phone: End: 11-24-2022 Sex Hormone Binding Globulin Sex Hormone Binding Globulin Lab Routine For lab collect this frequency defaults to the next routine lab draw time. Routine times: 0600; 1100; 1400; 1900; 2200 for 1 Occurrences starting 11/24/2022 until 11/24/2022 [facility] Work Phone: Comment on above: For lab collect this frequency defaults to the next routine lab draw time. Routine times: 0600; 1100; 1400; 1900; 2200 for 1 Occurrences starting 11/24/2022 until 11/24/2022 Sex Hormone Binding Globulin Sex Hormone Binding Globulin Lab Routine 11/24/2022 3:30 PM EDT [facility] Testosterone, free Testosterone, free Lab Routine Irregular menses 11/24/2022 3:30 PM EDT [facility] End: 09-07-2024 Transglutaminase IgA [facility] Work Phone: Comment on above: 1 Occurrences starti ng 09/07/2024 until 09/07/2024 [facility] Immunizations Immunization Date Immunization Notes Care Provider Fa john 09-07-2024 influenza, seasonal, injectable, preservative free Lois Conde MD Work Phone: [facility] 03-10-2023 meningococcal B vacc ine, recombinant, OMV, adjuvanted Lois Conde MD Work Phone: [facility] 05-22-2021 PFIZER (purple cap) COVID-19, mRNA, LNP-S, 30mcg/0.3mL dose Denielle White CONING MACHINE OPERATOR-GARMENT INSPECTOR Work Phone: [facility] 04-30-2021 influenza, injectabl e, quadrivalent, preservative free Denielle White CONING MACHINE OPERATOR-GARMENT INSPECTOR Work Phone: [facility] 04-30-2021 PFIZER (purple cap) COVID-19, mRNA, LNP-S, 30mcg/0.3mL dose Denielle White CONING MACHINE OPERATOR-GARMENT INSPECTOR Work Phone: [facility] 04-30-2021 influenza virus vacc ine, unspecified formulation Ivonne Dawson APRN.GARMENT INSPECTOR Work Phone: [facility] 04-26-2021 meningococcal B vacc ine, recombinant, OMV, adjuvanted Denielle White CONING MACHINE OPERATOR-GARMENT INSPECTOR Work Phone: [facility] 04-26-2021 meningococcal polysaccharide (groups A, C, Y and W-135) diphtheria toxoid conjugate vaccine (MCV4P) Indioaishwarya Lemus CONING MACHINE OPERATOR-GARMENT INSPECTOR Work Phone: [facility] 04-16-2020 hepatitis A vaccine, pediatric/adolescent dosage, 2 dose schedule Denalbertole Mariah CONING MACHINE OPERATOR-GARMENT INSPECTOR Work Phone: [facility] 04-16-2020 Human Papillomavirus 9-valent vaccine Denielle White CONING MACHINE OPERATOR-GARMENT INSPECTOR Work Phone: [facility] 04-29-2018 hepatitis A vaccine, pediatric/adolescent dosage, 2 dose schedule Denielle Mariah CONING MACHINE OPERATOR-GARMENT INSPECTOR Work Phone: [facility] 04-29-2018 Human Papillomavirus 9-valent vaccine Denielle White CONING MACHINE OPERATOR-GARMENT INSPECTOR Work Phone: [facility] 06-30-2017 influenza, injectabl e, quadrivalent, preservative free Codi Lemus CONING MACHINE OPERATOR-[facility] Work Phone: [facility] 04-28-2017 meningococcal polysaccharide (groups A, C, Y and W-135) diphtheria toxoid conjugate vaccine (MCV4P) Codi Lemus CONING MACHINE OPERATOR-[facility] Work Phone: [facility] 04-28-2017 tetanus toxoid, redu lorie diphtheria toxoid, and acellular pertussis vaccine, adsorbed [facility] CONING MACHINE OPERATOR-[facility] Work Phone: [facility] 05-14-2015 influenza, live, intranasal, quadrivalent [facility] Mariah CONING MACHINE OPERATOR-[facility] Work Phone: [facility] 05-10-2014 influenza, live, intranasal, quadrivalent [facility] White CONING MACHINE OPERATOR-[facility] Work Phone: [facility] 04-22-2012 influenza virus vacc ine, split virus (incl. purified surface antigen) [facility] CONING MACHINE OPERATOR-[facility] Work Phone: [facility] 06-07-2010 influenza virus vacc ine, split virus (incl. purified surface antigen) [facility] Mariah CONING MACHINE OPERATOR-[facility] Work Phone: [facility] 05-10-2010 diphtheria, tetanus toxoids and acellular pertussis vaccine [facility] CONING MACHINE OPERATOR-[facility] Work Phone: [facility] 05-10-2010 influenza virus vacc ine, split virus (incl. purified surface antigen) [facility] Mariah CONING MACHINE OPERATOR-[facility]CE[facility] [facility] Work Phone: [facility] 05-10-2010 measles, mumps, rube lla, and varicella virus vaccine [facility] Mariah CONING MACHINE OPERATOR-[facility] Work Phone: [facility] 05-10-2010 poliovirus vaccine, inactivated [facility] Work Phone: [facility] 11-26-2006 diphtheria, tetanus toxoids and acellular pertussis vaccine Gus Munroe CONING MACHINE OPERATOR.[facility] Work Phone: [facility] Work Phone: 11-26-2006 pneumococcal conjuga te vaccine, 7 valent Gus Munroe CONING MACHINE OPERATOR.GARMENT INSPECTOR Work Phone: [facility] Work Phone: 11-26-2006 varicella virus vaccine Yaron Munroe CONING MACHINE OPERATOR.GARMENT INSPECTOR Work Phone: [facility] Work Phone: 06-08-2006 haemophilus influenz ae type b vaccine, HbOC conjugate Gus Steeletito CONING MACHINE OPERATOR.GARMENT INSPECTOR Work Phone: [facility] Work Phone: 06-08-2006 haemophilus influenz ae type b vaccine, PRP-T conjugate Jaradjoann Lemus CONING MACHINE OPERATOR-GARMENT INSPECTOR Work Phone: [facility] 06-08-2006 measles, mumps and rubella virus vaccine Gus Steeletito CONING MACHINE OPERATOR.GARMENT INSPECTOR Work Phone: [facility] Work Phone: 06-08-2006 pneumococcal conjuga te vaccine, 7 valent Gus Munroe CONING MACHINE OPERATOR.GARMENT INSPECTOR Work Phone: [facility] Work Phone: 02-20-2006 pneumococcal conjuga te vaccine, 7 valent Codi Mariah CONING MACHINE OPERATOR-GARMENT INSPECTOR Work Phone: [facility] 2005 diphtheria, tetanus toxoids and acellular pertussis vaccine Codi Lemus CONING MACHINE OPERATOR-GARMENT INSPECTOR Work Phone: [facility] 2005 DTaP-hepatitis B and poliovirus vaccine Codi Lemus CONING MACHINE OPERATOR-GARMENT INSPECTOR Work Phone: [facility] 2005 haemophilus influenz ae type b vaccine, PRP-T conjugate Codi Lemus CONING MACHINE OPERATOR-GARMENT INSPECTOR Work Phone: [facility] 2005 hepatitis B vaccine, pediatric or pediatric/adolescent dosage Codi Lemus CONING MACHINE OPERATOR-GARMENT INSPECTOR Work Phone: [facility] 2005 pneumococcal conjuga te vaccine, 7 valent Codi Lemus CONING MACHINE OPERATOR-GARMENT INSPECTOR Work Phone: [facility] 2005 poliovirus vaccine, inactivated Codi White CONING MACHINE OPERATOR-GARMENT INSPECTOR Work Phone: [facility] 2005 diphtheria, tetanus toxoids and acellular pertussis vaccine Denaishwarya Lemus CONING MACHINE OPERATOR-GARMENT INSPECTOR Work Phone: [facility] 2005 haemophilus influenz ae type b vaccine, PRP-T conjugate Codi Lemus CONING MACHINE OPERATOR-GARMENT INSPECTOR Work Phone: [facility] 2005 poliovirus vaccine, inactivated Codi White CONING MACHINE OPERATOR-GARMENT INSPECTOR Work Phone: [facility] 2005 diphtheria, tetanus toxoids and acellular pertussis vaccine Denaishwarya Lemus CONING MACHINE OPERATOR-GARMENT INSPECTOR Work Phone: [facility] 2005 haemophilus influenz ae type b vaccine, PRP-T conjugate Codi Lemus CONING MACHINE OPERATOR-GARMENT INSPECTOR Work Phone: [facility] 2005 hepatitis B vaccine, pediatric or pediatric/adolescent dosage Denaishwarya Lemus CONING MACHINE OPERATOR-GARMENT INSPECTOR Work Phone: [facility] 2005 poliovirus vaccine, inactivated Codi White CONING MACHINE OPERATOR-GARMENT INSPECTOR Work Phone: [facility] 2005 poliovirus vaccine, unspecified formulation Codi Lemus CONING MACHINE OPERATOR-GARMENT INSPECTOR Work Phone: [facility] 2005 hepatitis B vaccine, pediatric or pediatric/adolescent dosage Denalberto White CONING MACHINE OPERATOR-GARMENT INSPECTOR Work Phone: [facility] Payers Date Payer Category Payer Self-pay [id number] 2022 Unknown [id number] 2021 Unknown [id number] 2006 Medicaid [facility] [id number] 2006-Present [phone] [address] [place] [address] Medicaid [id number] 2006 Medicaid [id number] 2005 Unknown [id number] 2005 Unknown [id number] 2005 Unknown [id number] 2005 Unknown [id number] Unknown [employer] [id number] Unknown [id number] Unknown [id number] Unknown [id number] Unknown [id number] Unknown [id number] Unknown [id number] Unknown [id number] Unknown [id number] [id number] Unknown [id number] Unknown [id number] Unknown [id number] Social History Date Type Detail Facility Start: 07-04-2019 End: 06-27-2022 Tobacco smoking status NHIS Never smoked tobacco [facility] Work Phone: Start: 07-04-2019 End: 06-27-2022 Tobacco use and exposure Smokeless tobacco non-user [facility] Work Phone: Start: 2005 Sex Assigned At Not on file [facility] Start: 01-07-2022 End: 06-24-2022 Exposure to SARS-CoV-2 (event) Not sure [facility] History of tobacco use Passive smoker [facility] Start: 08-26-2022 End: 12-21-2023 Tobacco smoking status NHIS Unknown if ever smoked [facility] Start: 12-11-2020 None [facility] Start: 12-11-2020 With Family [facility] Start: 2005 Sex Assigned At Female [facility] Start: 10-15-2022 End: 09-07-2024 Alcohol intake Lifetime non-drinker (finding) [facility] Start: 10-15-2022 End: 03-10-2023 Alcohol intake [facility] Start: 10-15-2022 End: 03-10-2023 Tobacco use panel [facility] Adolescent depressio n screening assessment 7 [facility] Start: 01-20-2025 End: 02-21-2025 Tobacco smoking status NHIS Smokes tobacco daily (finding) [facility] NEGATED: Highlighted row [facility] Goals Date Patient Goal Desired Activity /State Functional Status Date Assessment Result Facility 07-20-2019 Are you deaf, or do you have serious difficulty hearing No 07/20/2019 2:00 AM EST No [facility] 07-20-2019 Are you blind, or do you have serious difficulty seeing, even when wearing glasses Yes 07/20/2019 2:00 AM EST Regla Mae, PAM Yes [facility] 07-20-2019 Do you have serious difficulty walking or climbing stairs Yes 07/20/2019 2:00 AM EST Yes [facility] 07-20-2019 Do you have difficul ty dressing or bathing No 07/20/2019 2:00 AM EST No [facility] 07-20-2019 Because of a physica l, mental, or emotional condition, do you have difficulty doing errands alone such as visiting a physician's office or shopping 07/20/2019 2:00 AM EST [facility] Mental Status Date Assessment Result Facility 12-24-2023 Cognitive function Voice/Name;Touch/Shaki ng [facility] Work Phone: 02-04-2023 Cognitive function Level Of Cons ciousness Awake;Alert;Appropriate;Fol lows Commands [facility] Work Phone: 11-18-2022 Cognitive function Voice/Name [facility] Work Phone: 07-20-2019 Because of a physica l, mental, or emotional condition, do you have serious difficulty concentrating, remembering, or making decisions Yes 07/20/2019 2:00 AM EST Yes [facility] Clinical Notes 01-17-2022 to 02-26-2025 Addendum Note - Jasmin Enriquez APRN.[facility] - 08/27/2024 1:23 PM ESTAddendum Note - Jasmin Enriquez APRN.[facility] - 08/27/2024 1:23 PM Nasrin Glez LPN - 08/27/2024 1:03 PM EST Note Date & Type Note Facility 02-26-2025 Radiology Diagnostic study note [facility] Imaging Services [address] [place] [address] Pelvic w/ Transvaginal MR#: [id number] Acct: [id number] Name: LUIS BARAJAS Rep #: [id number] : 2005 F 19 From: Pet er Donnie BECERRA PCP: Dr. Mitzy Fung MD Status: REG CLI Study:Pelvic w/ Transvaginal Date of Exam: 02/23/25 Exam# [id number] Ordering Dr: Jess Garcia DO PROCEDURE: PELVIC W/ TRANSVAGINAL 02/23/2025 REASON FOR EXAM: ABDOMINAL/PELVIC PAIN TECHNIQUE: PELVIC W/ TRANSVAGINAL COMPARISON: None. FINDINGS: Measurements: Uterus: Measures 8.3 x 3.9 x 5.5 cm with a volume of 92.4 mL Endometrial Thickness: 5.5 Right Ovary: 3.9 x 1.6 x 2.2 cm with a volume of 7.1 mL. Left Ovary: 3.7 x 2.7 x 1.5 with a volume of 8.1 mL. Uterus: Anteverted. No fibroids. Endometrium: Endometrial thickness varies from 5.5 mm to 10 mm Right ovary: Normal blood flow to the right ovary. No pathologic right adnexa findings. Left ovary: 3.7 x 2.7 x 1.5 cm. Blood flow within normal limits. No pathologicfindings in the left adnexa except prominent uterine vessels. Mild volume of fluid in the cul-de-sac measuring 353 mL. Thisamount of fluid is frequently physiologic, but nonspecific. Incidental note made of nabothian cysts in the cervix. Other: US/Pelvic w/ Transvaginal IMPRESSION: No acute process detected. Other findings as above. Mild volume of fluid in the cul-de-sac. This finding is frequently physiologic,but nonspecific. Reading Location: [facility] CC: Dr. Mitzy Fung MD; Teodoro Garcia DO ~ Remarketing Rep: Signed [facility] 02-05-2025 Discharge summary [facility] 02-05-2025 Radiology Diagnostic study note [facility] Imaging Services [address] [place] [address] Abdomen/Pelvis W IV Cont ONLY MR#: [id number] Acct: [id number] Name: LUIS BARAJAS Rep #: [id number] : 2005 F 19 From: Lisette Henriquez MD PCP: Dr. Mitzy Fung MD Status: REG ER Study:Abdomen/Pelvis W IV Cont ONLY Date of E xam: 02/05/25 Exam# [id number] Ordering Dr: Arturo Hernandez MD PROCEDURE: ABDOMEN/PELVIS [...] patient's symptoms and urinalysis recommended. Reading Location: [facility] CC: Dr. Arturo Hernandez MD; Dr. Mitzy Fung MD ~ Remarketing Rep: Signed [facility] 02-05-2025 Hospital Discharge instructions Additional Instructions Try taking MiraLAX to help with your constipation. Follow-up with Dr. Wyneski regarding the thickened bladder wall on your CT scan. Return with new or worsening symptoms. Otherwise follow-up with your primary care provider in the next 3 to 5 days if not improving. [facility] Work Phone: 01-23-2025 Discharge summary [facility] 01-20-2025 Radiology Diagnostic study note [facility] Imaging Services [address] [place] [address] CT Chest, Abd, Pel w/Contrast MR#: [id number] Acct: [id number] Name: LUIS BARAJAS Rep #: [id number] : 2005 F 19 From: Luanne Sharma MD PCP: Dr. Mitzy Fung MD Status: REG ER Study:CT Chest, Abd, Pel w/Contrast Date of E xam: 01/20/25 Exam# [id number] Ordering Dr: Javier Isabel DO PROCEDURE: CT [...] on series 2, image 66. Reading Location: [id number] CC: Dr. Javier Isabel, DO; Dr. Mitzy Fung MD ~ Remarketing Rep: Signed [facility] 08-27-2024 Note Addended by: JASMIN SAUCEDO on: 08/27/2024 01:23 PM Modules accepted: Orders [facility] 08-27-2024 Miscellaneous Notes Addended by: JASMIN ENRIQUEZ on: 08/27/2024 01:23 PM Modules accepted: Orders documented in this encounter [facility] 08-27-2024 Note HNO ID: [id number] Author: NASRIN VILLAVICENCIO LPN Service: ? Author Type: LICENSED NURSE Type: Progress Notes Filed: 08/27/2024 13:04 Note Text: 2.5 solution aerosol treatment given per provider's orders. Prior to treatment O2 sat is 97%. Treatment completed. O2 sat is 100%. Tolerated well. Nasrin Villavicencio LPN [facility] 08-27-2024 History of Present illness Narrative [...] Discussed expected course of illness Jasmin Enriquez APRN.GARMENT INSPECTOR documented in this encounter [facility] 08-27-2024 Note HNO ID: [id number] Author: JASMIN ENRIQUEZ APRN.GARMENT INSPECTOR Service: ? Author Type: Nurse Practitioner Type: [...] 4. (more content not included)... [facility] 08-27-2024 Instructions Jasmin Enriquez APRN.CELINE - 08/27/2024 12:08 PM EST ASSESSMENT/PLAN: 1. [...] Discussed expected course of illness Jasmin Enriquez APRN.GARMENT INSPECTOR Previous hospitalization care team: Attending Provider: Ernestina Lanza MD (attending for admission) Consulting: Tirso Richey MD (ENT) Consulting: Jason Uriostegui MD (infectious disease) documented in this encounter [facility] 04-25-2024 Note HNO ID: [id number] Author: ERNESTINA LANZA MD Service: Hospital Medicine [...] asthma, URIEL. Patient was transferred from [facility] hospital today for concerns of 2 cm [...] sore throat associated with dysphagia At the [facility] CT neck with IV contrast showing [...] PIV CODE STA (more content not included)... [facility] 04-25-2024 Note HNO ID: [id number] Author: TIRSO RICHEY MD Service: Otolaryngology Author [...] with me as needed. Tirso Richey MD [facility] 01-26-2024 Note HNO ID: [id number] Author: MARTÍNEZ LYLES APRN.GARMENT INSPECTOR Service: ? Author Type: Nurse Practitioner Type: Progress Notes Filed: 01/26/2024 16:37 Note Text: This note was created using [employer]. April Barajas is a 18 year old [...] Tylenol as needed for pain. Martínez Lyles APRN.GARMENT INSPECTOR [facility] 01-26-2024 History of Present illness Narrative This note was created using [employer]. Subjective Luis Barajas is a 18 year [...] Martínez Lyles APRN.CELINE documented in this encounter [facility] 12-29-2023 Note HNO ID: [id number] Author: JASMIN ENRIQUEZ APRN.CNP Service: ? Author Type: Nurse Practitioner Type: [...] Discussed expected course of illness Jasmin Enriquez APRN.[facility] 12-29-2023 History of Present illness Narrative Subjective [...] Jasmin Enriquez APRN.CELINE documented in this encounter [facility] 12-29-2023 Instructions Jasmin Enriquez APRN.CNP - 12/29/2023 5:06 PM EDT ASSESSMENT/PLAN: 1. [...] expected course of illness Jasmin Enriquez APRN.CNP [facility] PATIENT INFO BLADDER INFECTION OVERVIEW [...] have an infection. documented in this encounter [facility] 12-24-2023 Procedure note [facility] 11-14-2023 Discharge summary Note Date/Time November 14, 2023 1:42pm [facility] Medical Records Department [address] [place] [address] Emergency Department Summary 11/14/23 MR#: [id number] Acct: [id number] Name: LUIS BARAJAS Rep #:[id number] : 2005 18 From: Alexis Farfan MD [...] was seen 2 weeks ago at the [facility] urgent care diagnosed with urinary tract infection. [...] Prior similar symptoms: Yes Recent Illness/Hospitalization: [facility] Medical History (Updated 11/14/23 @ 18:17 by [...] (Auto) 65.2 H Lymph % (Auto) 27.1 Oliver % (Auto) 5.1 Eos % (Auto) 1.7 [...] Sl. Cloudy Urine pH 6.5 Ur Specific [place] 1.015 Urine Protein 30 H Urine Glucose [...] your Primary Care Provider. Call [facility] ([phone]) or report to the closest Emergency Room. Call 911 if necessary. 11/14/231817 <Electronically signed by Alexis Farfan MD> Cosigner Signature (if applicable): CC: Dr. Mitzy Fung MD ~ Signed [facility] Work Phone: 1(940) 718-954103-23-2024 NoteHNO ID: [id number] Author: LONI ESCOBAR APRN.GARMENT INSPECTOR Service: ? Author Type: Nurse Practitioner Type: Progress Notes Filed: 11/14/2023 12:51 Note Text: Complaints of severe right flank pain. Patient says she has passed 2 hard Garrett objects through her urethra. Patient says she [...] was okay with this care plan.[facility]03-23-2024 History of Present illness Narrative* Loni Escobar APRN.CNP - 11/14/2023 12:50 PM EDT Complaints of severe right flank pain. Patient says she has passed 2 hard Garrett objects throughher urethra. Patient says she feels [...] with this care plan. [facility] Miscellaneous Notes* Telephone Encounter - Ariane [...] is pending; continue nitrofurantoin. documented in [facility]-08-2024 NoteHNO ID: [id number] Author: LILLIAN SANCHEZ APRN.GARMENT INSPECTOR Service: ? Author Type: Nurse Practitioner Type: Progress Notes Filed: 10/30/2023 16:18 Note Text: This note was created using [employer]. Subjective Luis Barajas is a 18 year [...] history is provided by the patient. No sign language translator was used. UTI This is a new [...] is n (more content not included)...[facility]03-08-2024 History of Present illness Narrative* Lillian Sanchez APRN.GARMENT INSPECTOR - 10/30/2023 4:02 PM EST This note was created using [employer]. April Barajas is a 18 year old [...] history is provided by the patient. No sign language translator was used. UTI This is a new [...] NAAT - BACTERIAL VAGINOSIS NAAT Lillian Sanchez APRN.CNP [facility] Nurse Note* Brigette Rincon MA - 08/02/2023 11:02 AM EST Pt returned for a urine culture recheck, due to contamination. Brigette Rincon MA documented in this encounterR[facility]12-07-2023 Miscellaneous Notes* Telephone Encounter - Leta Raymundo LPN - 07/30/2023 7:24 PM EST Patient's mother given results and verbalized understanding of instructions given. Leta Raymundo LPN * Telephone Encounter - Lillian Sanchez APRN.CNP - 07/30/2023 3:57 PM EST Please inform patient urine culture revealed mixed bacterial growth. If patient would like, can provide another urine specimen. I have placed an order . Would just need to represent to express care as nurse visit Patient should follow up with PCP for continued symptoms. documented in [facility]12[facility]23 History of Present illness Narrative* Ivonne Dawson APRN.CNP - 07/28/2023 7:07 PM EST SUBJECTIVE: Luis [...] CULTURE - CONSULT TO UROLOGY Ivonne Dawson APRN.GARMENT INSPECTOR documented in this encounterR[facility]04-07-[address] De La Torre [facility] November 28, 2022 6:52pm Note Date/Time November 28, 2022 3:09 pm [facility] Medical Records Department [address] [place] [address] Emergency Department Summary 11/28/22 MR#: [id number] Acct: [id number] Name: LUIS BARAJAS Rep #:[id number] : 2005 17 From: Vishal De La [...] again today as advised by her operating head correction officer Dr. Alfreda Clements. Patient took naproxen prior [...] pain restarted 2 hours prior to evaluation. [facility] Medical History (Updated 11/28/22 @ 18:46 by [...] is also following up with gynecology specialist [facility], I encouraged mom to keep that appointment. [...] % (Auto) 62.9 Lymph % (Auto) 29.3 Oliver % (Auto) 5.6 Eos % (Auto) 1.5 [...] Sl. Cloudy Urine pH 8.0 Ur Specific [place] 1.015 Urine Protein Negative Urine Glucose (UA) [...] a Ruptured Ovarian Cyst, ED Mid-Cycle Pain ([place]merz) Prescriptions: No Action albuterol sulfate [Ventolin HFA] [...] your Primary Care Provider. Call [facility] ([phone]) or report to the closest Emergency Room. Call 911 if necessary. 11/28/22 185 <Electronically signed by Vishal De La Torre MD> Cosigner Signature (if applicable): CC: Dr. Mitzy Fung MD; Dr. Mara Clements MD ~ Signed [facility] Work Phone: 1(480) 612-369003-28-2023 Procedure [facility] 11-18-2022 History and physical note Author Dr. Clements [facility] November 18, 2022 3:01am Note Date/Time November 18, 2022 12: 23am [facility] Medical Records Department [address] [place] [address] History & Physical Exam 11/18/22 0017 MR#: [id number] Acct: [id number] Name: LUIS BARAJAS Rep #:[id number] : 2005 17 From: Mara villegas MD PCP: Dr. Mitzy Fung MD Status:[facility] Location: [place] [address] HPI - General General Date of Service: [...] antibiotics for UTI diagnosed 2 weeks ago. [facility] Medical History ADHD Asthma Home Medications albuterol [...] (Auto) 41.2, Lymph % (Auto) 50.2 H, Oliver % (Auto) 6.4 H, Eos % (Auto) [...] Fung MD; Dr. Mara Clements MD~ Signed [facility] Work Phone: 1(417) 333-708901-03-2023 Miscellaneous Notes* Telephone Encounter - Nasrin Villavicencio [...] AM EST ----- Message from Jasmin Enriquez APRN.GARMENT INSPECTOR sent at 08/26/2022 7:21 AM EST ----- Please advise parent farhana Smith the COVID, flu, RSV test is negative. documented in [facility]23 History of Present illness Narrative* Moe [...] ROUTINE Moe Simons MD documented in this encounterR[facility]11-02-2022 Miscellaneous Notes* Telephone Encounter - Stefany Olivo - 06/25/2022 11:14 AM EDT Patient given results and verbalized understanding of instructions given. Stefany Olivo * Telephone Encounter - Lillian Sanchez APRN.CNP - 06/25/2022 10:02 AM EDT Patient tested positive for BV. Flagyl sent into [facility]. Please reach out and inform patient. This is not an STI. [facility] documented in this encounterR[facility]11-01-[facility]22 History of Present illness Narrative* Gus [...] agrees with plan of care. Gus Munroe APRN.CNP documented in this encounterR[facility]05-27-2022 History of Present illness Narrative* Gus [...] ICD10: R10.9 (primary diagnosis) - CONSULT TO DRUM ATTENDANT 2. Acute sinusitis, recurrence not specified, unspecified location - ICD9: 461.9, ICD10: J01.90 Patient diagnosed with maxillary sinusitis. Patient was placed on amoxicillin. Will follow up with PCP for reevaluation 2 to 3 days symptoms are not improving. Additionally patient will be referred to DRUM ATTENDANT. Patient states she has had ongoing suprapubic tenderness ever since she has been diagnosedwith a UTI this has been several months ago. Red flags for prompt reevaluation discussed. Will be seen in urgent care or ED for any new or worsening symptoms. Patient/mother verbalized understanding agrees with plan of care Gus Munroe APRN.CELINE [facility] Author Dr. Clements [facility] November 18, 2022 3:17am Note Date/Time November 18, 2022 3:1 4am [facility] Medical Records Department [address] [place] [address] Instructions for Home/Discharge Instructions 11/18/22 0311 MR#: [id number] Acct: [id number] Name: LUIS BARAJAS Rep #:[id number] : 2005 17 From: Mara villegas MD PCP: Dr. Mitzy Fung MD Status:[facility] Discharge Instructions Diet Discharge Diet: No restrictions [...] Mara Allen MD When: Follow up with [facility] as scheduled or call [phone] Alfreda Clements Test [...] CC: Dr. Mitzy Fung MD ~ Signed [facility] Work Phone: Discharge summary Author Leny Ruano [facility] December 24, 2023 9:01am Note Date/Time December 24, 2023 9:01am [facility] Medical Records Department [address] [place] [address] Instructions for Home/Discharge Instructions 12/24/23 0900 MR#: [id number] Acct: [id number] Name: LUIS BARAJAS Rep #:[id number] : 2005 18 From: Leny Robison PCP: Dr. Mitzy Fung MD [place] [facility] [place] Diet Discharge Diet: No restrictions [...] can be placed): Home, Self Care 12/24/23 09<Electronically signed by Leny Ruano MD>Leny Ruano MD CC: Dr. Mitzy Fung MD ~ Signed [facility] Work Phone: Discharge summary Author Yaron Peralta [facility] Note Date/Time January 23, 2025 10:43 am [facility] Medical Records Department [address] [place] [address] Emergency Department Summary 01/23/25 MR#: [id number] Acct: [id number] Name: LUIS BARAJAS Rep #:[id number] : 2005 19 From: Yaron Peralta MD [...] similar symptoms: Yes Recent Illness/Hospitalization: No PFSH PFS Medical History Wears glasses Bipolar [...] Toradol. We do long discussion show follow-up withOB/MEDICAL CODING AUDITOR for her endometriosis. She will follow-up with [...] Sl. Cloudy Urine pH 6.5 Ur Specific [place] 1.010 Urine Protein 15 H Urine Glucose [...] Counseling. Support groups. Follow-up with a local DRUM ATTENDANT for your pelvic pain and endometriosis. Print Language: Tajik Disposition Disposition: Home, Self Care What to do if you have Problems For any increased pain, shortness of breath, bleeding, nausea or vomiting, chestpain, or any unexpected problems, contact your Primary Care Provider. Call [facility] ([phone]) or report to the closest Emergency Room. Call 911 if necessary. 01/23/25 1043 <Electronically signed by Yaron Peralta MD> Cosigner Signature (if applicable): CC: Dr. Mitzy Fung MD ~ Signed [facility] Work Phone: Discharge summary Author Arturo Hernandez [facility] Note Date/Time February 05, 2025 11:5 7am [facility] Medical Records Department [address] [place] [address] Emergency Department Summary 02/05/25 MR#: [id number] Acct: [id number] Name: LUIS BARAJAS Rep #:[id number] : 2005 19 From: Arturo Hernandez MD [...] quadrant abdominal pain. No fevers or chills. [facility] Medical History Wears glasses Bipolar disorder Anxiety [...] to gas, butshe will also start MiraLAX [id number]. Follow-up with primary care. Return instructions reviewed. [...] % (Auto) 48.7 Lymph % (Auto) 40.5 Oliver % (Auto) 6.3 Eos % (Auto) 3.4 [...] Clarity Clear Urine pH 7.0 Ur Specific [place] 1.005 Urine Protein 30 H Urine Glucose [...] patient's symptoms and urinalysis recommended. Reading Location: [facility] Discharge Plan Triage Chief Complaint: Constipation ED [...] 5 days if not improving. Print Language: Tajik Disposition Disposition: Home, Self Care What to do if you have Problems For any increased pain, shortness of breath, bleeding, nausea or vomiting, chestpain, or any unexpected problems, contact your Primary Care Provider. Call [facility] ([phone]) or report to the closest Emergency Room. Call 911 if necessary. 02/05/25 1157 <Electronically signed by Arturo Hernandez MD> Cosigner Signature (if applicable): CC: Dr. Mitzy Fung MD ~ Signed [facility] Work Phone: Evaluation note* Diagnosis Abdominal pain, unspecified abdominal location- Primary Acute sinusitis, recurrence not specified, unspecified location [facility]* Diagnosis Urinary frequency- Primary [facility] noteNo assessment information availableWK[facility] Work Phone: Evaluation note* Diagnosis Sore throat- Primary Acute pharyngitis Influenza-like illness Influenza with other respiratory manifestations documented [facility]* Diagnosis Onset Date Resolution Status Ovarian torsion acute [facility] Work Phone: Evaluation note* Diagnosis Hirsutism Irregular menses Irregular menstrual cycle documented in this encounter [facility] note* Diagnosis Urinary frequency- Primary [facility]* Diagnosis Urinary frequency- Primary documented in [facility]* Diagnosis Urinary frequency- Primary documented in [facility]* Diagnosis Dysuria- Primary documented in [facility]* Diagnosis Pain in pelvis- Primary Flank pain Abdominal pain, unspecified site documented in this encounter [facility]* Diagnosis Burning with urination- Primary Dysuria Otalgia of right ear Otalgia, unspecified documented in this encounter [facility]* Diagnosis Ear pain, right- Primary Otalgia, unspecified documented in this [facility]* Diagnosis Sore throat- Primary Acute pharyngitis Pharyngitis, unspecified etiology Wheezing Viral URI with cough Acute upper respiratory infections of unspecified site Bronchitis Bronchitis, not specified as acute or chronic documented in this encounter [facility]* Diagnosis Weight loss Loss of weight Family history of type 2 diabetes mellitus Family history of diabetes mellitus [facility] Discharge instructions Additional Instructions For your pelvic and endometriosis pain alternate Motrin and Tylenol. Ativan as needed for your anxiety. Do not drink alcohol or drive while taking it. Follow-up with the counseling center for your anxiety. Otherwise to help deal with anxiety. Read about it and learn about it. Exercise. Breathing techniques. Walking. Reading. Counseling. Support groups. Follow-up with a local DRUM ATTENDANT for your pelvic pain and endometriosis.[facility] Work Phone: Hospital Discharge instructionsAdditional Instructions Please obtain your outpatient ultrasound to further assess any cause of your pelvic pain. Follow-up with DRUM ATTENDANT for further evaluation and return to the ER should you have any further concernsWKettering [facility] Work Phone: Reason for referral (narrative)No reason for referral information availableWKettering Memorial Hospital Work Phone: Reason for Referral Specialty Diagnoses / Procedures Referred By Yamile seth Referred To Contact Diagnoses Abdominal pain, unspecified abdominal location Procedures CONSULT TO DRUM ATTENDANT OFFICE/OUTPATIENT [facility] 60-74 MINUTES Gus Munroe APRN.GARMENT INSPECTOR [address] [place] [address] Referral ID Status Reason Start Date Expiration Date Visits Requested Visits Authorized [id number] Authorized PCP Requested Referral Auto-Generate d Referral 01/17/2022 01/17/2023 1 1 Specialty Diagnoses / Procedures Referred By Yamile seth Referred To Contact Urology Diagnoses Urinary frequency Procedures CONSULT TO UROLOGY OFFICE/OUTPATIENT [facility] 60-74 MINUTES Ivonne Dawson APRN.GARMENT INSPECTOR [address] [place] [address] Referral ID Status Reason Start Date Expiration Date Visits Requested Visits Authorized [id number] Authorized PCP Requested Referral 07/28/2023 07/27/2024 1 [...] m constipation February 05, 2025 9:25 am Chief Complaint Admit Date abd pain January 20, 2025 3:20p m abd pain January 23, 2025 9:18a m constipation February 05, 2025 9:25 am abd pain February 21, 2025 12:56 am Chief Complaint Admit Date abd pain January 20, 2025 3:20p m abd pain January 23, 2025 9:18a m constipation February 05, 2025 9:25 am abd pain February 21, 2025 12:56 am ABD/PELVIC PAIN February 23, 2025 3:07p m Advance Directives No Advanced Directives Records Found Advance Directive Response Recorded Date/ Time Living Will No May 09, 2016 5:08pm Power of Merchandise Executive No April 5:08pm Advance Directive Response Recorded Date/ Time Living Will No May 09, 2016 6:08pm Power of Merchandise Executive No April 6:08pm Advance Directive Response Recorded Date/ Time Living Will No September 25 4:30am Power of Merchandise Executive No September 25, 2023 4:30am Advance Directive Response Recorded Date/ Time Living Will No November 14, 2023 2:18pm Power of Merchandise Executive No November 13 2:18pm Advance Directive Response Recorded Date/ Time Living Will No December 21, 2023 1:59pm Power of Merchandise Executive No December 20 1:59pm Date Activated Date Inactivated Comments 04/24/2024 9:55 AM 04/26/2024 3:43 PM Question Answer Comments Full Code Order Discussed With: Patient Advance Directive Response Recorded Date/ Time Do you have a Healthcare Power of Merchandise Executive? No January 20, 2025 3:51pm Advance Directive Response Recorded Date/ Time Do you have a Healthcare Power of Merchandise Executive? No January 20, 2025 3:51pm Do you have a Healthcare Power of Merchandise Executive? No January 23, 2025 9:37am Advance Directive Response Recorded Date/ Time Do you have a Healthcare Power of Merchandise Executive? No January 20, 2025 3:51pm Do you have a Healthcare Power of Merchandise Executive? No January 23, 2025 9:37am Do you have a Healthcare Power of Merchandise Executive? No February 05, 2025 9:55am Advance Directive Response Recorded Date/ Time Do you have a Healthcare Power of Merchandise Executive? No January 20, 2025 3:51pm Do you have a Healthcare Power of Merchandise Executive? No January 23, 2025 9:37am Do you have a Healthcare Power of Merchandise Executive? No February 05, 2025 9:55am Do you have a Healthcare Power of Merchandise Executive? No February 21, 2025 1:00am Health Concerns Infection Onset Date Last Indicated [...] or prosecute any alcohol or drug abuse patient.[facility] the event this information is protected by the Federal Confidentiality of Alcohol and Drug Abuse Patient Records regulations: The Federal rules restrict any use of the information to criminally investigate or prosecute any alcohol or drug abuse patient.[facility] HospitalIn the event this information is protected by the Federal Confidentiality of Alcohol and Drug Abuse Patient Records regulations: The Federal rules restrict any use of the information to criminally investigate or prosecute any alcohol or drug abuse patient.[facility] HospitalIn the event this information is protected by the Federal Confidentiality of Alcohol and Drug Abuse Patient Records regulations: The Federal rules restrict any use of the information to criminally investigate or prosecute any alcohol or drug abuse patient.[facility] HospitalIn the event this information is protected by the Federal Confidentiality of Alcohol and Drug Abuse Patient Records regulations: The Federal rules restrict any use of the information to criminally investigate or prosecute any alcohol or drug abuse patient.[facility] HospitalIn the event this information is protected by the Federal Confidentiality of Alcohol and Drug Abuse Patient Records regulations: The Federal rules restrict any use of the information to criminally investigate or prosecute any alcohol or drug abuse patient.[facility] HospitalIn the event this information is protected by the Federal Confidentiality of Alcohol and Drug Abuse Patient Records regulations: The Federal rules restrict any use of the information to criminally investigate or prosecute any alcohol or drug abuse patient.[facility] HospitalIn the event this information is protected by the Federal Confidentiality of Alcohol and Drug Abuse Patient Records regulations: The Federal rules restrict any use of the information to criminally investigate or prosecute any alcohol or drug abuse patient.[facility] HospitalIn the event this information is protected by the Federal Confidentiality of Alcohol and Drug Abuse Patient Records regulations: The Federal rules restrict any use of the information to criminally investigate or prosecute any alcohol or drug abuse patient.[facility] HospitalIn the event this information is protected by the Federal Confidentiality of Alcohol and Drug Abuse Patient Records regulations: The Federal rules restrict any use of the information to criminally investigate or prosecute any alcohol or drug abuse patient.[facility] HospitalIn the event this information is protected by the Federal Confidentiality of Alcohol and Drug Abuse Patient Records regulations: The Federal rules restrict any use of the information to criminally investigate or prosecute any alcohol or drug abuse patient.[facility] HospitalIn the event this information is protected by the Federal Confidentiality of Alcohol and Drug Abuse Patient Records regulations: The Federal rules restrict any use of the information to criminally investigate or prosecute any alcohol or drug abuse patient.[facility] HospitalIn the event this information is protected by the Federal Confidentiality of Alcohol and Drug Abuse Patient Records regulations: The Federal rules restrict any use of the information to criminally investigate or prosecute any alcohol or drug abuse patient.[facility] HospitalIn the event this information is protected by the Federal Confidentiality of Alcohol and Drug Abuse Patient Records regulations: The Federal rules restrict any use of the information to criminally investigate or prosecute any alcohol or drug abuse patient.[facility] Reason for Visit (unrecogniz ed section and content) Reason Comments Ear Pain Pt presented with pa rent reported bilateral ear, jaw pain rated 6 [...] Care Teams (unrecognized sec tion and content) Air Hammer Stripper Relationship Specialty Start Date End Date Cesar Rosenthal [facility] [address] [place] [address] PCP - General 06/03/06 Air Hammer Stripper Relationship Specialty Start Date End Date Mitzy Fung [address] [facility] [place] [address] PCP - General Pediatrics 06/24/22 Air Hammer Stripper Relationship Specialty Start Date End Date Mitzy Fung [address] [facility] [place] [address] PCP - General Pediatrics 06/24/22 Team Status: [...] Provider, Refe rring Provider Active Team Status: Inactive Member Role [...] Dr. Mara Clements MD Attending Provider Active Air Hammer Stripper Relationship Specialty Start Date End Date Mitzy Fung MD [address] [place], [place] [id number] PCP - General 07/19/19 Team Status: Inactive [...] MD Attending Provider, Refer ring Provider Active Air Hammer Stripper Relationship Specialty Start Date End Date Mitzy Fung MD [address] [place] [address] PCP - General Pediatrics 06/24/22 Air Hammer Stripper Relationship Specialty Start Date End Date Mitzy Fung MD [address] [place] [address] PCP - General Pediatrics 06/24/22 Air Hammer Stripper Relationship Specialty Start Date End Date Mitzy Fung MD [address] [place] [address] PCP - General Pediatrics 06/24/22 Team Status: Inactive Member Role Status Dates Dr. Mitzy Fung MD Primary Care Provider Active Dr. Levar Ackerman DO Emergency Provider Active Air Hammer Stripper Relationship Specialty Start Date End Date Mitzy Fung MD [address] [place] [address] PCP - General Pediatrics 06/24/22 Air Hammer Stripper Relationship Specialty Start Date End Date Mitzy Fung MD [address] [place], [place] [address] PCP - General Pediatrics 06/24/22 Team Status: [...] MD Attending Provider, Referring P rovider Active Air Hammer Stripper Relationship Specialty Start Date End Date Mitzy Fung MD [address] [place], [place] [address] PCP - General Pediatrics 06/24/22 Air Hammer Stripper Relationship Specialty Start Date End Date Mitzy Fung MD [address] [place] [address] PCP - General Pediatrics 06/24/22 Air Hammer Stripper Relationship Specialty Start Date End Date Mitzy Fung MD [address] [place] [address] PCP - General 07/19/19 Team Status: Active [...] February 05, 2025 End: February 05, 2025 Team Status: Active Member Role/Relationship Status Dates Dr. Mitzy Fung MD Primary Care Provider Active Team Status: Inactive Member Role/Relationship Status Dates Dr. Mitzy Fung MD Primary [...] January 20, 2025 Team Status: Inactive Member Role/Relationship Status Dates Dr. Mitzy Fung MD Primary Care Provider Active Start: January 23, 2025 End: January 23, 2025 Dr. Yaron Peralta MD Attending Provider Active S tart: January 23, 2025 End: January 23, 2025 Dr. Yaron Peralta MD Emergency Provider Active S tart: January 23, 2025 End: January 23, 2025 Team Status: Inactive Member Role/Relationship Status Dates Dr. Mitzy Fung MD Primary Care Provider Active Start: February 05, 2025 End: February 05, 2025 Arturo Hernandez MD Attending Provider Active Star t: February 05, 2025 End: February 05, 2025 Arturo Hernandez MD Emergency Provider Active Star t: February 05, 2025 End: February 05, 2025 Team Status: Inactive Member Role/Relationship Status Dates Dr. Mitzy Fung MD Primary Care Provider Active Start: February 21, 2025 End: February 21, 2025 Dr. Teodoro Garcia DO Emergency Provider Active Start: February 21, 2025 End: February 21, 2025 Team Status: Inactive Member Role/Relationship Status Dates Dr. Mitzy Fung MD Primary Care Provider Active Start: February 21, 2025 End: February 21, 2025 Dr. Teodoro Garcia DO Attending Provider Active Start: February 21, 2025 End: February 21, 2025 Dr. Teodoro Garcia DO Emergency Provider Active Start: February 21, 2025 End: February 21, 2025 Team Status: Inactive Member Role/Relationship Status Dates Dr. Mitzy Fung MD Primary Care Provider Active Start: February 23, 2025 End: February 23, 2025 Dr. Teodoro Garcia DO Attending Provider Active Start: February 23, 2025 End: February 23, 2025 Dr. Teodoro Garcia DO Referring Provider Active Start: February 23, 2025 End: February 23, 2025 Goals (unrecognized section and content) [...] section and content) DATE CREATED AUTHOR 04/26/2024 [facility] DATE CREATED AUTHOR AUTHOR'S ORGANIZ ATION 05/05/2024 [facility] [place] ([place]) DATE CREATED AUTHOR AUTHOR'S ORGANIZ ATION 09/03/2024 [facility] DATE CREATED AUTHOR AUTHOR'S ORGANIZ ATION 09/14/2024 [facility] DATE CREATED AUTHOR AUTHOR'S ORGANIZ ATION 03/08/2025 [facility] FOR RECORDS PERTAINING TO PATIENTS WHO [...] BE BASED ON THE PRIMARY CLINICAL RECORDS. [facility] provides no warranty or guarantee of the accuracy or completeness of information in this document.
== END | disposition home or self-care (01) ==
LOC: LABSPEC 15:58
PROVIDERS: PCP Pediatrics
DX: J02.9 Acute pharyngitis, unspecified (principal)
CPT/HCPCS: 87070; 87077; 87186

== ENCOUNTER 2025-03-17 04:08 | Emergency (ER) | payer MEDICAID, SELFPAY ==
[2025-03-17 04:09] VITALS: BP 118/92; PULSE 87; RESP 20; TEMP 37; O2SAT 100; BMI 22.3
[2025-03-17 04:13] VITALS: BP 118/92; PULSE 90; PULSE 91; RESP 20; TEMP 37; O2SAT 100
[2025-03-17] MEDS: Clindamycin 600 MG/50 ML BAG 100 MG IV (05:03)
[2025-03-17] MEDS: 0.9% Normal Saline (1000mL) 1,000 ML 1000 ML IV (05:03)
--- OUTSIDE RECORDS SUMMARY | 2025-03-17 05:05 | XMS RPT_ITS | CCD ---
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 [address] Hematocrit (Bld) [Volume fraction] 41.4 % Normal 37-47 [facility] Comment on above: Performed By: #### L [id number] #### [facility] [address] [place], [address] Hemoglobin (Bld) [Mass/Vol] 13.9 g/dL Normal 12.0-15.0 [facility] Comment on above: Performed By: #### L [id number] #### [facility] [address] [place], [address] IG% 0.100 Normal 0.0-0.9 [facility] Comment on above: Result Comment: IG% - Immature Granulocytes (promyelocytes, myelocytes and metamyelocytes) > 1% indicates that a LEFT SHIFT is Present. Performed By: #### L [id number] #### [facility] [address], [address] Lymphocytes/100 WBC (Bld) 40.5 % Normal 19-41 [facility] Comment on above: Performed By: #### L [id number] #### [facility] [address] [place], [address] MCH (RBC) [Entitic mass] 28.6 pg Normal 27.0-32.0 [facility] Comment on above: Performed By: #### L [id number] #### [facility] [address], [address] MCHC (RBC) [Mass/Vol] 33.6 g/dL Normal 32-36 [facility] Comment on above: Performed By: #### L [id number] #### [facility] [address] [place], [address] MCV (RBC) [Entitic vol] 85.2 fL Normal 81-99 [facility] Comment on above: Performed By: #### L [id number] #### [facility] [address] [place], [address] Monocytes/100 WBC (Bld) 6.3 % Normal 0-10 [facility] Comment on above: Performed By: #### L [id number] #### [facility] [address] [place], [address] Neutrophils/100 WBC (Bld) 48.7 % Normal 47-70 [facility] Comment on above: Performed By: #### L [id number] #### [facility] [address] [place], [address] Nucleated RBC (Bld) [#/Vol] 0 10*3/uL Normal 0-5 [facility] Comment on above: Performed By: #### L [id number] #### [facility] [address] [place], [address] Platelet mean volume (Bld) [Entitic vol] 9.8 fL Normal 6.2-12.0 [facility] Comment on above: Performed By: #### L [id number] #### [facility] [address] [place], [address] Platelets (Bld) [#/Vol] 341 10*3/uL Normal 150-450 [facility] Comment on above: Performed By: #### L [id number] #### [facility] [address] [place], [address] RBC (Bld) [#/Vol] 4.86 10*6/uL Normal 4.2-5.4 [facility] Comment on above: Performed By: #### L [id number] #### [facility] [address] [place], [address] RDW SD 36.2 fl Normal 35.1-43.9 [facility] Comment on above: Performed By: #### L [id number] #### [facility] [address] [place], [address] WBC (Bld) [#/Vol] 7.1 10*3/uL Normal 4.4-11.0 [facility] Comment on above: Performed By: #### L [id number] #### [facility] [address] [place], [address] Carbon dioxide, total [Moles /volume] in Central venous bloodOrdered By: Arturo Hernandez on 02-05-2025 CO2 [Moles/Vol] 20.8 mmol/L Low 21.0-32.0 [facility] Chloride assayOrdered By: Preston Hernandez on 02-05-2025 Chloride [Moles/Vol] 107 mmol/L 98-[address] [facility] Comprehensive Metabolic Prof ilon 02-05-2025 Albumin [Mass/Vol] 4.8 g/dL Normal 3.5-5.0 [facility] Comment on above: Performed By: #### L [id number] #### [facility] [address] [place], [address] Albumin/Globulin [Mass ratio] 1.7 {ratio} Normal 0.9-2.4 [facility] Comment on above: Performed By: #### L [id number] #### [facility] [address] [place], [address] ALK PHOS 59 U/L Normal 35-104 [facility] Comment on above: Performed By: #### L [id number] #### [facility] [address] [place], [address] ALT [Catalytic activity/Vol] 15 U/L Normal <=34 [facility] Comment on above: Performed By: #### L [id number] #### [facility] [address] [place], [address] AST [Catalytic activity/Vol] 23 U/L Normal <=31 [facility] Comment on above: Performed By: #### L [id number] #### [facility] [address] [place], [address] Bilirubin [Mass/Vol] 0.66 mg/dL Normal 0.00-1.[address] [facility] Comment on above: Performed By: #### L [id number] #### [facility] [address] [place], [address] BUN/CRE 11.9 RATIO Normal 10-20 [facility] Comment on above: Performed By: #### L [id number] #### [facility] [address] [place], [address] Calcium [Mass/Vol] 9.9 mg/dL Normal 7.6-11.0 [facility] Comment on above: Performed By: #### L [id number] #### [facility] [address] [place], [address] Chloride [Moles/Vol] 107 mmol/L Normal 98-[address] [facility] Comment on above: Performed By: #### L [id number] #### [facility] [address] [place], [address] CO2 [Moles/Vol] 20.8 mmol/L Low 21.0-32.0 [facility] Comment on above: Performed By: #### L [id number] #### [facility] [address] [place], [address] Creatinine [Mass/Vol] 0.91 mg/dL Normal 0.70-1.20 [facility] Comment on above: Performed By: #### L [id number] #### [facility] [address] [place], [address] ECRCL 85.87 ml/min Normal 50-250 [facility] Comment on above: Performed By: #### L [id number] #### [facility] [address] [place], [address] GAP 14 Normal 5-15 [facility] Comment on above: Performed By: #### L [id number] #### [facility] [address] [place], [address] GFR/1.73 sq M.predicted among non-blacks MDRD (S/P/Bld) [Vol rate/Area] 93 mL/min/{1.73_m2} Normal >60 [facility] Comment on above: Result Comment: mL/m in/1.73m2 CKD-EPI Creatinine Equation (2020) Performed By: #### L [id number] #### [facility] [address] [place], [address] Globulin (S) [Mass/Vol] 2.9 g/dL Normal 2.2-4.2 [facility] Comment on above: Performed By: #### L [id number] #### [facility] [address] [place], [address] Glucose [Mass/Vol] 92 mg/dL Normal 70-99 [facility] Comment on above: Performed By: #### L [id number] #### [facility] [address] [place], [address] Potassium [Moles/Vol] 3.8 mmol/L Normal 3.3-5.1 [facility] Comment on above: Performed By: #### L [id number] #### [facility] [address] [place], [address] Sodium [Moles/Vol] 142 mmol/L Normal 133-145 [facility] Comment on above: Performed By: #### L [id number] #### [facility] [address] [place], [address] T PROT 7.7 g/dL Normal 5.9-8.4 [facility] Comment on above: Performed By: #### L [id number] #### [facility] [address] [place], [address] Urea nitrogen [Mass/Vol] 11 mg/dL Normal 4-19 [facility] Comment on above: Performed By: #### L [id number] #### [facility] [address] [place], [address] Emergency Department Summary on 02-05-2025 Emergency Department Summary [facility] Medical Records Department [address] [place] [address] Emergency Department Summary 02/05/25 MR#: [id number] Acct: [id number] Name: LUIS BARAJAS Rep #: [id number] : 2005 19 From: Arturo Hernandez MD [...] quadrant abdominal pain. No fevers or chills. PFS PFS Medical History Wears glasses Bipolar disorder [...] gas, but she will also start MiraLAX [id number]. Follow-up with primary care. Return instructions reviewed. Disposition is discharged home in stable condition. History Record Review Discussion w/independent historian: Patient and Family (Mother) Additional record(s) reviewed:: Prior ED visit and Prior labs Lab Data Attestation: I reviewed the patient's lab results. Labs: Laboratory Resul (more content not included)... Normal [facility] Eosinophil percentageOrdered By: Arturo Hernandez on 02-05-2025 Eosinophils/100 WBC (Bld) 3.4 % 0-5 [facility] Erythrocyte distribution wid th ratioOrdered By: Arturo Hernandez on 02-05-2025 Erythrocyte distribution width (RBC) [Ratio] 11.8 % 11.6-14.6 [facility] Erythrocyte distribution wid th standard deviationOrdered By: Arturo Hernandez on 02-05-2025 Erythrocyte distribution width (RBC) [Ratio] 36.2 fl 35.1-43.9 [facility] Glomerular filtration rate ( GFR) estimation/1.73 sq m using serum, plasma, or whole bOrdered By: Arturo Hernandez on 02-05-2025 GFR/1.73 sq M.predicted among non-blacks MDRD (S/P/Bld) [Vol rate/Area] 93 mL/min/{1.73_m2} >60 [facility] Comment on above: mL/min/1.73m2 CKD-EP I Creatinine Equation (2020) Hematocrit Auto (Bld) [Volum e fraction]Ordered By: Arturo Hernandez on 02-05-2025 Hematocrit (Bld) [Volume fraction] 41.4 % 37-47 [facility] Hemoglobin measurementOrdere d By: Arturo Hernandez on 02-05-2025 Hemoglobin (Bld) [Mass/Vol] 13.9 g/dL 12.0-15.0 [facility] Immature granulocytes/100 WB C Auto (Bld)Ordered By: Arturo Hernandez on 02-05-2025 Immature granulocytes/100 WBC (Bld) 0.100 % 0.0-0.9 [facility] Comment on above: IG% - Immature Granu locytes (promyelocytes, myelocytes and metamyelocytes) > 1% indicates that a LEFT SHIFT is Present. Ketones Test strip Ql (U)Ord ered By: Arturo Hernandez on 02-05-2025 Ketones Ql (U) Negative Negative [facility] - Chemistry and C hemistry - challengeOrdered By: Arturo Hernandez on 02-05-2025 AST [Catalytic activity/Vol] 23 U/L <32 [facility] Lipaseon 02-05-2025 Lipase [Catalytic activity/Vol] 30 U/L Normal 13-75 [facility] Comment on above: Result Comment: Antonio castro note: LIPASE revised reference range effective 22. New Lipase methodology. Expected to produce lower values than the previous assay method. NEW Reference Range: 13 - 75 U/L Performed By: #### L [id number] #### [facility] [address] [place], [address] Lipase measurementOrdered By : Arturo Hernandez on 02-05-2025 Lipase [Catalytic activity/Vol] 30 U/L 13-75 [facility] Comment on above: Please note:LIPASE r evised reference range effective 22. New Lipase methodology. Expected to produce lower values than the previous assay method. NEW Reference Range: 13 - 75 U/L MCV (mean corpuscular volume ) determinationOrdered By: Arturo Hernandez on 02-05-2025 MCV (RBC) [Entitic vol] 85.2 fL 81-99 [facility] Mean corpuscular hemoglobin (MCH) determinationOrdered By: Arturo Hernandez on 02-05-2025 MCH (RBC) [Entitic mass] 28.6 pg 27.0-32.0 [facility] Mean corpuscular hemoglobin concentration (MCHC) determinationOrdered By: Arturo Hernandez on 02-05-2025 MCHC (RBC) [Mass/Vol] 33.6 g/dL 32-36 [facility] Mean platelet volume determi nationOrdered By: Arturo Hernandez on 02-05-2025 Platelet mean volume (Bld) [Entitic vol] 9.8 fL 6.2-12.0 [facility] Microscopic analysis of urin e for red blood cells (RBC)Ordered By: Arturo Hernandez on 02-05-2025 Microscopic analysis of urine for red blood cells (RBC) 0 SEEN /hpf 0-5 [place] [facility] Monocyte percentageOrdered B y: Arturo Hernandez on 02-05-2025 Monocytes/100 WBC (Bld) 6.3 % 0-10 [facility] Mucus LM Ql (Urine sed)Order ed By: Arturo Hernandez on 02-05-2025 Mucus Ql (Urine sed) 0 SEEN /hpf [facility] Neutrophil percentageOrdered By: Arturo Hernandez on 02-05-2025 Neutrophils/100 WBC (Bld) 48.7 % 47-70 [facility] Nitrite Test strip Ql (U)Ord ered By: Arturo Hernandez on 02-05-2025 Nitrite Ql (U) Negative Negative [facility] Nucleated red blood cell per centageOrdered By: Arturo Hernandez on 02-05-2025 Nucleated RBC/100 WBC (Bld) [Ratio] 0 % 0-5 [facility] Platelet countOrdered By: Preston Hernandez on 02-05-2025 Platelets (Bld) [#/Vol] 341 10*3/uL 150-450 [facility] Potassium measurement (mass/ volume)Ordered By: Arturo Hernandez on 02-05-2025 Potassium (Unsp spec) [Mass/Vol] 3.8 mmol/L 3.3-5.1 [facility] ,Serum,hCG Quali.on 02-05-2025 HCG, SERUM QUAL Negative Normal [facility] Comment on above: Performed By: #### L [id number] #### [facility] [address] [place] [address], [id number] Protein Test strip Ql (U)Ord ered By: Arturo Hernandez on 02-05-2025 Protein Ql (U) 30 mg/dl High Negative [facility] RBC Auto (Bld) [#/Vol]Ordere d By: Arturo Hernandez on 02-05-2025 RBC (Bld) [#/Vol] 4.86 10*6/uL 4.2-5.4 [facility] Serum beta-hCG test, qualita tiveOrdered By: Arturo Hernandez on 02-05-2025 Beta HCG ( test) Ql Negative [facility] Serum creatinine measurement (mass/volume)Ordered By: Arturo Hernnadez on 02-05-2025 Creatinine [Mass/Vol] 0.91 mg/dL 0.70-1.20 [facility] Serum globulin measurementOr dered By: Arturo Hernandez on 02-05-2025 Globulin (S) [Mass/Vol] 2.9 g/dL 2.2-4.2 [facility] Serum glucose measurement (m ass/volume)Ordered By: Arturo Hernandez on 02-05-2025 Glucose [Mass/Vol] 92 mg/dL 70-99 [facility] Serum or plasma alanine lowe otransferase (ALT) measurementOrdered By: Arturo Hernandez on 02-05-2025 ALT [Catalytic activity/Vol] 15 U/L <35 [facility] Serum or plasma albumin vel urement (mass/volume)Ordered By: Arturo Hernandez on 02-05-2025 Albumin [Mass/Vol] 4.8 g/dL 3.5-5.0 [facility] Serum or plasma albumin/glob ulin mass ratioOrdered By: Arturo Hernandez on 02-05-2025 Albumin/Globulin [Mass ratio] 1.7 {ratio} 0.9-2.4 [facility] Serum or plasma alkaline jeromy sphatase measurementOrdered By: Arturo Hernandez on 02-05-2025 ALP [Catalytic activity/Vol] 59 U/L 35-104 [facility] Serum or plasma calcium vel urement (mass/volume)Ordered By: Arturo Hernandez on 02-05-2025 Calcium [Mass/Vol] 9.9 mg/dL 7.6-11.0 [facility] Serum or plasma urea nitroge n measurement (mass/volume)Ordered By: Arturo Hernandez on 02-05-2025 Urea nitrogen [Mass/Vol] 11 mg/dL 4-19 [facility] Sodium levelOrdered By: Arturo Hernandez on 02-05-2025 Sodium [Moles/Vol] 142 mmol/L 133-145 [facility] Squamous epithelial cells de tection in urine sediment by light microscopyOrdered By: Arturo Hernandez on 02-05-2025 Epithelial cells.squamous LM Ql (Urine sed) 0-5 SEEN /hpf 5-10 [facility] Total proteinOrdered By: Anabella Hernandez on 02-05-2025 Protein [Mass/Vol] 7.7 g/dL 5.9-8.4 [facility] Urinalysis, Completeon 02-05 EPI,SQUAMOUS 0-5 SEEN Normal 5-10 [facility] Comment on above: Order Comment: CLEAN CATCH Performed By: #### L [id number] #### [facility] [address] [place], [address] BACTERIA 0 SEEN Normal None Seen [facility] Comment on above: Order Comment: CLEAN CATCH Performed By: #### L [id number] #### [facility] [address] [place], [address] Mucus Ql (Urine sed) 0 SEEN Normal [facility] Comment on above: Order Comment: CLEAN CATCH Performed By: #### L [id number] #### [facility] [address] [place], [address] RBC 0 SEEN Normal 0-5 [facility] Comment on above: Order Comment: CLEAN CATCH Performed By: #### L [id number] #### [facility] [address] [place], [address] WBC 0 SEEN Normal 0-5 [facility] Comment on above: Order Comment: CLEAN CATCH Performed By: #### L [id number] #### [facility] [address] [place], [address] Urine clarityOrdered By: Anabella Hernandez on 02-05-2025 Clarity (U) Clear Clear [facility] Urine color determinationOrd ered By: Arturo Hernandez on 02-05-2025 Color (U) Yellow Yellow [facility] Urine glucose detectionOrder ed By: Arturo Hernandez on 02-05-2025 Glucose Ql (U) Normal mg/dl Normal [facility] Urine leukocyte esterase det ection by dipstickOrdered By: Arturo Hernandez on 02-05-2025 Leukocyte esterase Test strip Ql (U) Negative Negative [facility] Urine pHOrdered By: Arturo grace on 02-05-2025 pH (U) 7.0 [pH] 5.0 - 8.0 [facility] Urine sediment bacteria coun t by microscopy (number/high power field)Ordered By: Arturo Hernandez on 02-05-2025 Bacteria LM.HPF (Urine sed) [#/Area] 0 /[HPF] None Seen [facility] Urine specific gravity measu rementOrdered By: Arturo Hernandez on 02-05-2025 Specific gravity (U) [Rel density] 1.005 1.002-1.030 [facility] Urine urobilinogen measureme ntOrdered By: Arturo Hernandez on 02-05-2025 Urobilinogen Ql (U) Normal mg/dl Normal [facility] White blood cell (WBC) count Ordered By: Arturo Hernandez on 02-05-2025 WBC (Bld) [#/Vol] 7.1 10*3/uL 4.4-11.0 [facility] White blood cell countOrdere d By: Arturo Hernandez on 02-05-2025 White blood cell count 0 SEEN /hpf 0-5 [facility] Bilirubin Test strip Ql (U)O rdered By: Yaron Peralta on 01-23-2025 Bilirubin Ql (U) Negative Negative [facility] Emergency Department Summary on 01-23-2025 Emergency Department Summary [facility] Medical Records Department [address] [place] [address] Emergency Department Summary 01/23/25 MR#: [id number] Acct: [id number] Name: LUIS BARAJAS Rep #: [id number] : 2005 19 From: Yaron Peralta MD [...] Appearance ED (more content not included)... Normal [facility] Ketones Test strip Ql (U)Ord ered By: Yaron Peralta on 01-23-2025 Ketones Ql (U) Negative Negative [facility] Microscopic analysis of urin e for red blood cells (RBC)Ordered By: Yaron Peralta on 01-23-2025 Microscopic analysis of urine for red blood cells (RBC) 0-5 SEEN /hpf 0-5 [facility] Mucus LM Ql (Urine sed)Order ed By: Yaron Peralta on 01-23-2025 Mucus Ql (Urine sed) 0 SEEN /hpf [facility] Nitrite Test strip Ql (U)Ord ered By: Yaron Peralta on 01-23-2025 Nitrite Ql (U) Negative Negative [facility] ,Serum,hCG Quali.on 06-02-2025 HCG, SERUM QUAL Negative Normal [facility] Comment on above: Performed By: #### L [id number] #### [facility] [address] [place], [address] Protein Test strip Ql (U)Ord ered By: Yaron Peralta on 01-23-2025 Protein Ql (U) 15 mg/dl High Negative [facility] Serum beta-hCG test, qualita tiveOrdered By: Yaron Peralta on 01-23-2025 Beta HCG ( test) Ql Negative [facility] Squamous epithelial cells de tection in urine sediment by light microscopyOrdered By: Yaron Peralta on 01-23-2025 Epithelial cells.squamous LM Ql (Urine sed) 0-5 SEEN /hpf 5-10 [facility] Urinalysis, Completeon 01-23 BACTERIA 1+ /hpf Normal None Seen [facility] Comment on above: Order Comment: CLEAN CATCH Performed By: #### L [id number] #### [facility] [address] [place], [address] EPI,SQUAMOUS 0-5 SEEN Normal 5-10 [facility] Comment on above: Order Comment: CLEAN CATCH Performed By: #### L [id number] #### [facility] [address] [place], [address] RBC 0-5 SEEN Normal 0-5 [facility] Comment on above: Order Comment: CLEAN CATCH Performed By: #### L [id number] #### [facility] [address] [place], [address] WBC 0-5 SEEN Normal 0-5 [facility] Comment on above: Order Comment: CLEAN CATCH Performed By: #### L [id number] #### [facility] [address] [place], [address] Mucus Ql (Urine sed) 0 SEEN Normal [facility] Comment on above: Order Comment: CLEAN CATCH Performed By: #### L [id number] #### [facility] [address] [place], [address] Urine clarityOrdered By: Lele Peralta on 01-23-2025 Clarity (U) Sl. Cloudy Clear [facility] Urine color determinationOrd ered By: Yaron Peralta on 01-23-2025 Color (U) Yellow Yellow [facility] Urine glucose detectionOrder ed By: Yaron Peralta on 01-23-2025 Glucose Ql (U) Normal mg/dl Normal [facility] Urine leukocyte esterase det ection by dipstickOrdered By: Yaron Peralta on 01-23-2025 Leukocyte esterase Test strip Ql (U) 25 /ul High Negative [facility] Urine pHOrdered By: Yaron Landis ghdorinda on 01-23-2025 pH (U) 6.5 [pH] 5.0 - 8.0 [facility] Urine sediment bacteria coun t by microscopy (number/high power field)Ordered By: Yaron Peralta on 01-23-2025 Bacteria LM.HPF (Urine sed) [#/Area] 1 /[HPF] None Seen [facility] Urine specific gravity measu rementOrdered By: Yaron Peralta on 01-23-2025 Specific gravity (U) [Rel density] 1.010 1.002-1.030 [facility] Urine urobilinogen measureme ntOrdered By: Yaron Peralta on 01-23-2025 Urobilinogen Ql (U) Normal mg/dl Normal [facility] White blood cell countOrdere d By: Yaron Peralta on 01-23-2025 White blood cell count 0-5 SEEN /hpf 0-5 [facility] Absolute lymphocyte countOrd ered By: Javier Isabel on 01-20-2025 Lymphocytes Auto (Unsp spec) [#/Vol] 3.05 10*3/uL 0.83-4.51 [facility] Absolute neutrophil countOrd ered By: Javier Isabel on 01-20-2025 Neutrophils (Bld) [#/Vol] 6.1 10*3/uL 2.0-7.7 [facility] Anion gap in Serum or Plasma Ordered By: Javier Isabel on 01-20-2025 Anion gap [Moles/Vol] 12 mmol/L 5-15 [facility] Automated lymphocyte count a s percentage of total leukocytesOrdered By: Javier Isabel on 01-20-2025 Lymphocytes/100 WBC Auto (Unsp spec) 30.2 % 19-41 [facility] BUN/creatinine ratioOrdered By: Javier Isabel on 01-20-2025 Urea nitrogen/Creatinine [Mass ratio] 8.7 mg/mg Low 10-20 [facility] Basophil percentageOrdered B y: Javier Isabel on 01-20-2025 Basophils/100 WBC (Bld) 0.9 % 0-1 [facility] Bilirubin Test strip Ql (U)O rdered By: Javier Bainsking on 01-20-2025 Bilirubin Ql (U) Negative Negative [facility] Bilirubin, totalOrdered By: Javier Bainsking on 01-20-2025 Bilirubin [Mass/Vol] 0.67 mg/dL 0.00-1.[address] [facility] CBC W/Diff, Automatedon 12-24 Absolute Lymph 3.05 X10 3/uL Normal 0.83-4.51 [facility] Comment on above: Performed By: #### L 100.0100, L700.6800, L501.2450, L500.4050 #### [facility] [address] [place], [address] Absolute Neut 6.1 X10 3/uL Normal 2.0-7.7 [facility] Comment on above: Performed By: #### L 100.0100, L700.6800, L501.2450, L500.4050 #### [facility] [address] [place], [address] Basophils/100 WBC (Bld) 0.9 % Normal 0-1 [facility] Comment on above: Performed By: #### L 100.0100, L700.6800, L501.2450, L500.4050 #### [facility] [address] [place], [address] Eosinophils/100 WBC (Bld) 1.9 % Normal 0-5 [facility] Comment on above: Performed By: #### L 100.0100, L700.6800, L501.2450, L500.4050 #### [facility] [address] [place], [address] Erythrocyte distribution width (RBC) [Ratio] 11.8 % Normal 11.6-14.6 [facility] Comment on above: Performed By: #### L 100.0100, L700.6800, L501.2450, L500.4050 #### [facility] [address] [place], [address] Hematocrit (Bld) [Volume fraction] 40.5 % Normal 37-47 [facility] Comment on above: Performed By: #### L 100.0100, L700.6800, L501.2450, L500.4050 #### [facility] [address] [place], [address] Hemoglobin (Bld) [Mass/Vol] 13.5 g/dL Normal 12.0-15.0 [facility] Comment on above: Performed By: #### L 100.0100, L700.6800, L501.2450, L500.4050 #### [facility] [address] [place], [address] IG% 0.300 Normal 0.0-0.9 [facility] Comment on above: Result Comment: IG% - Immature Granulocytes (promyelocytes, myelocytes and metamyelocytes) > 1% indicates that a LEFT SHIFT is Present. Performed By: #### L 100.0100, L700.6800, L501.2450, L500.4050 #### [facility] [address] [place], [address] Lymphocytes/100 WBC (Bld) 30.2 % Normal 19-41 [facility] Comment on above: Performed By: #### L 100.0100, L700.6800, L501.2450, L500.4050 #### [facility] [address] [place], [address] MCH (RBC) [Entitic mass] 28.7 pg Normal 27.0-32.0 [facility] Comment on above: Performed By: #### L 100.0100, L700.6800, L501.2450, L500.4050 #### [facility] [address] [place], [address] MCHC (RBC) [Mass/Vol] 33.3 g/dL Normal 32-36 [facility] Comment on above: Performed By: #### L 100.0100, L700.6800, L501.2450, L500.4050 #### [facility] [address] [place], [address] MCV (RBC) [Entitic vol] 86.2 fL Normal 81-99 [facility] Comment on above: Performed By: #### L 100.0100, L700.6800, L501.2450, L500.4050 #### [facility] [address] [place], [address] Monocytes/100 WBC (Bld) 6.6 % Normal 0-10 [facility] Comment on above: Performed By: #### L 100.0100, L700.6800, L501.2450, L500.4050 #### [facility] [address] [place], [address] Neutrophils/100 WBC (Bld) 60.1 % Normal 47-70 [facility] Comment on above: Performed By: #### L 100.0100, L700.6800, L501.2450, L500.4050 #### [facility] [address] [place], [address] Nucleated RBC (Bld) [#/Vol] 0 10*3/uL Normal 0-5 [facility] Comment on above: Performed By: #### L 100.0100, L700.6800, L501.2450, L500.4050 #### [facility] [address] [place], [address] Platelet mean volume (Bld) [Entitic vol] 10.1 fL Normal 6.2-12.0 [facility] Comment on above: Performed By: #### L 100.0100, L700.6800, L501.2450, L500.4050 #### [facility] [address] [place], [address] Platelets (Bld) [#/Vol] 358 10*3/uL Normal 150-450 [facility] Comment on above: Performed By: #### L 100.0100, L700.6800, L501.2450, L500.4050 #### [facility] [address] [place], [address] RBC (Bld) [#/Vol] 4.70 10*6/uL Normal 4.2-5.4 [facility] Comment on above: Performed By: #### L 100.0100, L700.6800, L501.2450, L500.4050 #### [facility] [address] [place], [address] RDW SD 37.2 fl Normal 35.1-43.9 [facility] Comment on above: Performed By: #### L 100.0100, L700.6800, L501.2450, L500.4050 #### [facility] [address] [place], [address] WBC (Bld) [#/Vol] 10.1 10*3/uL Normal 4.4-11.0 [facility] Comment on above: Performed By: #### L 100.0100, L700.6800, L501.2450, L500.4050 #### [facility] [address] [place], [address] CT Chest, Abd, Pel w/Contras ton 01-20-2025 CT Chest, Abd, Pel w/Contrast [facility] Imaging Services [address] [place], [place] [address] CT Chest, Abd, Pel w/Contrast MR#: [id number] Acct: [id number] Name: LUIS BARAJAS Rep #: [id number] : 2005 F 19 From: José Luis Robison PCP: Dr. Mitzy Fung MD Status: REG ER Study: CT Chest, Abd, Pel w/Contrast Date of Exam: Exam# [id number] Ordering Dr: Javier Isabel DO PROCEDURE: CT [...] on series 2, image 66. Reading Location: [facility] CC: Dr. Javier Isabel, DO; Dr. Mitzy Fung MD [employer] Manager: Signed Normal [facility] Carbon dioxide, total [Moles /volume] in Central venous bloodOrdered By: Javier Isabel on 01-20-2025 CO2 [Moles/Vol] 21.7 mmol/L 21.0-32.0 [facility] Chloride assayOrdered By: Gabo Isabel on 01-20-2025 Chloride [Moles/Vol] 105 mmol/L 98-[address] [facility] Comprehensive Metabolic Prof ilon 01-20-2025 Albumin [Mass/Vol] 4.7 g/dL Normal 3.5-5.0 [facility] Comment on above: Performed By: #### L 400.0001 #### [facility] [address] [place], [address] Albumin/Globulin [Mass ratio] 1.6 {ratio} Normal 0.9-2.4 [facility] Comment on above: Performed By: #### L 400.0001 #### [facility] [address] [place], [address] ALK PHOS 58 U/L Normal 35-104 [facility] Comment on above: Performed By: #### L [id number] #### [facility] [address] [place], [address] ALT [Catalytic activity/Vol] 13 U/L Normal <=34 [facility] Comment on above: Performed By: #### L [id number] #### [facility] [address] [place], [address] AST [Catalytic activity/Vol] 25 U/L Normal <=31 [facility] Comment on above: Performed By: #### L [id number] #### [facility] [address] [place], [address] Bilirubin [Mass/Vol] 0.67 mg/dL Normal 0.00-1.[address] [facility] Comment on above: Performed By: #### L [id number] #### [facility] [address] [place], [address] BUN/CRE 8.7 RATIO Low 10-20 [facility] Comment on above: Performed By: #### L [id number] #### [facility] [address] [place], [address] Calcium [Mass/Vol] 9.7 mg/dL Normal 7.6-11.0 [facility] Comment on above: Performed By: #### L [id number] #### [facility] [address] [place], [address] Chloride [Moles/Vol] 105 mmol/L Normal 98-[address] [facility] Comment on above: Performed By: #### L [id number] #### [facility] [address] [place], [address] CO2 [Moles/Vol] 21.7 mmol/L Normal 21.0-32.0 [facility] Comment on above: Performed By: #### L 400.0001 #### [facility] [address] [place], [address] Creatinine [Mass/Vol] 0.94 mg/dL Normal 0.70-1.20 [facility] Comment on above: Performed By: #### L [id number] #### [facility] [address] [place], [address] ECRCL 86.62 ml/min Normal 50-250 [facility] Comment on above: Performed By: #### L [id number] #### [facility] [address] [place], [address] GAP 12 Normal 5-15 [facility] Comment on above: Performed By: #### L [id number] #### [facility] [address] [place], [address] GFR/1.73 sq M.predicted among non-blacks MDRD (S/P/Bld) [Vol rate/Area] 89 mL/min/{1.73_m2} Normal >60 [facility] Comment on above: Result Comment: mL/m in/1.73m2 CKD-EPI Creatinine Equation (2020) Performed By: #### L [id number] #### [facility] [address] [place], [address] Globulin (S) [Mass/Vol] 3.0 g/dL Normal 2.2-4.2 [facility] Comment on above: Performed By: #### L [id number] #### [facility] [address] [place], [address] Glucose [Mass/Vol] 92 mg/dL Normal 70-99 [facility] Comment on above: Performed By: #### L [id number] #### [facility] [address] [place], [address] Potassium [Moles/Vol] 3.9 mmol/L Normal 3.3-5.1 [facility] Comment on above: Performed By: #### L [id number] #### [facility] [address] [place], [address] Sodium [Moles/Vol] 139 mmol/L Normal 133-145 [facility] Comment on above: Performed By: #### L [id number] #### [facility] [address] [place], [address] T PROT 7.7 g/dL Normal 5.9-8.4 [facility] Comment on above: Performed By: #### L [id number] #### [facility] [address] [place], [address] Urea nitrogen [Mass/Vol] 8 mg/dL Normal 4-19 [facility] Comment on above: Performed By: #### L [id number] #### [facility] [address] [place], [address] Emergency Department Summary on 01-20-2025 Emergency Department Summary [facility] Medical Records Department [address] [place] [address] Emergency Department Summary 01/20/25 MR#: [id number] Acct: [id number] Name: LUIS BARAJAS Rep #: [id number] : 2005 From: Javier Isabel DO PCP: Dr. Mitzy [...] days. Patient denies any fevers or chills. [facility] Medical History Wears glasses Bipolar disorder Anxiety Non-smoker PCOS (polycystic ovarian syndrome) Endometriosis determined by laparoscopy ADHD Asthma Home Medications ???Medication ???Instructions ???Recorded ???Last Taken ???Type albuterol sulfate 90 mcg/actuation 1 puff inhalation PRN PRN Wheezi ng 05/20/19 04/29/24 History aerosol inhaler (Ventolin HFA) melatonin 5 [...] x3, CN's (more content not included)... Normal [facility] Eosinophil percentageOrdered By: Javier Isabel on 01-20-2025 Eosinophils/100 WBC (Bld) 1.9 % 0-5 [facility] Erythrocyte distribution wid th ratioOrdered By: Javier Isabel on 01-20-2025 Erythrocyte distribution width (RBC) [Ratio] 11.8 % 11.6-14.6 [facility] Erythrocyte distribution wid th standard deviationOrdered By: Javier Isabel on 01-20-2025 Erythrocyte distribution width (RBC) [Ratio] 37.2 fl 35.1-43.9 [facility] Glomerular filtration rate ( GFR) estimation/1.73 sq m using serum, plasma, or whole bOrdered By: Javier Isabel on 01-20-2025 GFR/1.73 sq M.predicted among non-blacks MDRD (S/P/Bld) [Vol rate/Area] 89 mL/min/{1.73_m2} >60 [facility] Comment on above: mL/min/1.73m2 CKD-EP I Creatinine Equation (2020) Hematocrit Auto (Bld) [Volum e fraction]Ordered By: Javier Isabel on 01-20-2025 Hematocrit (Bld) [Volume fraction] 40.5 % 37-47 [facility] Hemoglobin measurementOrdere d By: Javier Isabel on 01-20-2025 Hemoglobin (Bld) [Mass/Vol] 13.5 g/dL 12.0-15.0 [facility] Immature granulocytes/100 WB C Auto (Bld)Ordered By: Javier Isabel on 01-20-2025 Immature granulocytes/100 WBC (Bld) 0.300 % 0.0-0.9 [facility] Comment on above: IG% - Immature Granu locytes (promyelocytes, myelocytes and metamyelocytes) > 1% indicates that a LEFT SHIFT is Present. Ketones Test strip Ql (U)Ord ered By: Javier Isabel on 01-20-2025 Ketones Ql (U) Negative Negative [facility] - Chemistry and C hemistry - challengeOrdered By: Javier Isabel on 01-20-2025 AST [Catalytic activity/Vol] 25 U/L <32 [facility] Lipaseon 01-20-2025 Lipase [Catalytic activity/Vol] 28 U/L Normal 13-75 [facility] Comment on above: Result Comment: Antonio castro note: LIPASE revised reference range effective 22. New Lipase methodology. Expected to produce lower values than the previous assay method. NEW Reference Range: 13 - 75 U/L Performed By: #### L [id number] #### [facility] [address] [place], [address] Lipase measurementOrdered By : Javier Isabel on 01-20-2025 Lipase [Catalytic activity/Vol] 28 U/L 13-75 [facility] Comment on above: Please note:LIPASE r evised reference range effective 22. New Lipase methodology. Expected to produce lower values than the previous assay method. NEW Reference Range: 13 - 75 U/L MCV (mean corpuscular volume ) determinationOrdered By: Javier Isabel on 01-20-2025 MCV (RBC) [Entitic vol] 86.2 fL 81-99 [facility] Mean corpuscular hemoglobin (MCH) determinationOrdered By: Javier Isabel on 01-20-2025 MCH (RBC) [Entitic mass] 28.7 pg 27.0-32.0 [facility] Mean corpuscular hemoglobin concentration (MCHC) determinationOrdered By: Javier Isabel on 01-20-2025 MCHC (RBC) [Mass/Vol] 33.3 g/dL 32-36 [facility] Mean platelet volume determi nationOrdered By: Javier Isabel on 01-20-2025 Platelet mean volume (Bld) [Entitic vol] 10.1 fL 6.2-12.0 [facility] Microscopic analysis of urin e for red blood cells (RBC)Ordered By: Javier Isabel on 01-20-2025 Microscopic analysis of urine for red blood cells (RBC) 0-5 SEEN /hpf 0-5 [facility] Monocyte percentageOrdered B y: Javier Isabel on 01-20-2025 Monocytes/100 WBC (Bld) 6.6 % 0-10 [facility] Mucus LM Ql (Urine sed)Order ed By: Javier Isabel on 01-20-2025 Mucus Ql (Urine sed) 0 SEEN /hpf [facility] Neutrophil percentageOrdered By: Javier Isabel on 01-20-2025 Neutrophils/100 WBC (Bld) 60.1 % 47-70 [facility] Nitrite Test strip Ql (U)Ord ered By: Javier Isabel on 01-20-2025 Nitrite Ql (U) Negative Negative [facility] Nucleated red blood cell per centageOrdered By: Javier Isabel on 01-20-2025 Nucleated RBC/100 WBC (Bld) [Ratio] 0 % 0-5 [facility] Platelet countOrdered By: Gabo Isabel on 01-20-2025 Platelets (Bld) [#/Vol] 358 10*3/uL 150-450 [facility] Potassium measurement (mass/ volume)Ordered By: Javier Isabel on 01-20-2025 Potassium (Unsp spec) [Mass/Vol] 3.9 mmol/L 3.3-5.1 [facility] ,Serum,hCG Quali.on 01-20-2025 HCG, SERUM QUAL Negative Normal [facility] Comment on above: Performed By: #### L [id number] #### [facility] [place], [address] Protein Test strip Ql (U)Ord ered By: Javier Isabel on 01-20-2025 Protein Ql (U) 15 mg/dl High Negative [facility] RBC Auto (Bld) [#/Vol]Ordere d By: Javier Isabel on 01-20-2025 RBC (Bld) [#/Vol] 4.70 10*6/uL 4.2-5.4 [facility] Serum beta-hCG test, qualita tiveOrdered By: Javier Isabel on 01-20-2025 Beta HCG ( test) Ql Negative [facility] Serum creatinine measurement (mass/volume)Ordered By: Javier Isabel on 01-20-2025 Creatinine [Mass/Vol] 0.94 mg/dL 0.70-1.20 [facility] Serum globulin measurementOr dered By: Javier Isabel on 01-20-2025 Globulin (S) [Mass/Vol] 3.0 g/dL 2.2-4.2 [facility] Serum glucose measurement (m ass/volume)Ordered By: Javier Isabel on 01-20-2025 Glucose [Mass/Vol] 92 mg/dL 70-99 [facility] Serum or plasma alanine lowe otransferase (ALT) measurementOrdered By: Javier Isabel 01-20-2025 ALT [Catalytic activity/Vol] 13 U/L <35 [facility] Serum or plasma albumin vel urement (mass/volume)Ordered By: Javier Isabel 01-20-2025 Albumin [Mass/Vol] 4.7 g/dL 3.5-5.0 [facility] Serum or plasma albumin/glob ulin mass ratioOrdered By: Javier Isabel on 01-20-2025 Albumin/Globulin [Mass ratio] 1.6 {ratio} 0.9-2.4 [facility] Serum or plasma alkaline jeromy sphatase measurementOrdered By: Javier Isabel 01-20-2025 ALP [Catalytic activity/Vol] 58 U/L 35-104 [facility] Serum or plasma calcium vel urement (mass/volume)Ordered By: Javier Isabel on 01-20-2025 Calcium [Mass/Vol] 9.7 mg/dL 7.6-11.0 [facility] Serum or plasma urea nitroge n measurement (mass/volume)Ordered By: Javier Isabel on 01-20-2025 Urea nitrogen [Mass/Vol] 8 mg/dL 4-19 [facility] Sodium levelOrdered By: Javier Isabel on 01-20-2025 Sodium [Moles/Vol] 139 mmol/L 133-145 [facility] Squamous epithelial cells de tection in urine sediment by light microscopyOrdered By: Javier Isabel on 01-20-2025 Epithelial cells.squamous LM Ql (Urine sed) 0 SEEN /hpf 5-10 [facility] Total proteinOrdered By: Lina Isabel on 01-20-2025 Protein [Mass/Vol] 7.7 g/dL 5.9-8.4 [facility] Urinalysis, Completeon 01-20 RBC 0-5 SEEN Normal 0-5 [facility] Comment on above: Order Comment: CLEAN CATCH Performed By: #### L [id number] #### [facility] [address] [place] [address] WBC 0-5 SEEN Normal 0-5 [facility] Comment on above: Order Comment: CLEAN CATCH Performed By: #### L [id number] #### [facility] [address] [place], [address] BACTERIA 0 SEEN Normal None Seen [facility] Comment on above: Order Comment: CLEAN CATCH Performed By: #### L [id number] #### [facility] [address] [place], [address] EPI,SQUAMOUS 0 SEEN Normal 5-10 [facility] Comment on above: Order Comment: CLEAN CATCH Performed By: #### L [id number] #### [facility] [address] [place], [address] Mucus Ql (Urine sed) 0 SEEN Normal [facility] Comment on above: Order Comment: CLEAN CATCH Performed By: #### L [id number] #### [facility] [address] [place], [address] Urine clarityOrdered By: Lina Isabel on 01-20-2025 Clarity (U) Clear Clear [facility] Urine color determinationOrd ered By: Javier Isabel on 01-20-2025 Color (U) Straw Yellow [facility] Urine glucose detectionOrder ed By: Javier Isabel on 01-20-2025 Glucose Ql (U) Normal mg/dl Normal [facility] Urine leukocyte esterase det ection by dipstickOrdered By: Javier Isabel on 01-20-2025 Leukocyte esterase Test strip Ql (U) Negative Negative [facility] Urine pHOrdered By: Javier dow on 01-20-2025 pH (U) 7.0 [pH] 5.0 - 8.0 [facility] Urine sediment bacteria coun t by microscopy (number/high power field)Ordered By: Javier Isabel on 01-20-2025 Bacteria LM.HPF (Urine sed) [#/Area] 0 /[HPF] None Seen [facility] Urine specific gravity measu rementOrdered By: Javier Isabel on 01-20-2025 Specific gravity (U) [Rel density] 1.010 1.002-1.030 [facility] Urine urobilinogen measureme ntOrdered By: Javier Isabel on 01-20-2025 Urobilinogen Ql (U) Normal mg/dl Normal [facility] White blood cell (WBC) count Ordered By: Javier Isabel on 01-20-2025 WBC (Bld) [#/Vol] 10.1 10*3/uL 4.4-11.0 [facility] White blood cell countOrdere d By: Javier Isabel on 01-20-2025 White blood cell count 0-5 SEEN /hpf 0-5 [facility] C-REACTIVE PROTEINon 025 CRP [Mass/Vol] mg/L Invalid Interpretation Code <= 1.0 mg/dL [facility] Comment on above: Order Comment: Relea [...] to generate a CRP response. Verified By: [id number] C-reactive protein (Lab Fred ect)on 09-07-2024 CRP [Mass/Vol] <= 1.0 mg/dL MG/DL [facility] Comment on above: CRP determinations i n neonates should be interpreted with caution. CRP may be elevated in circumstances not associated with inflammation (e.g. difficult delivery, pneumothorax). In premature neonates CRP levels may not rise to abnormal levels even if sepsis is present; some speculate that immature liver function decreases the ability to generate a CRP response. Verified By: [id number] COMPLETE BLOOD COUNT WITH DI FFERENTIALon 09-07-2024 Basophil \P\ 0.08 10E3/???L High 0.02-0.06 [facility] Comment on above: Order Comment: Relea se to patient->Automatic Basophils/100 WBC (Bld) 0.7 % Invalid Interpretation Code 0.3-0.9 [facility] Comment on above: Order Comment: Relea se to patient->Automatic Eosinophil \P\ 0.17 10E3/???L Invalid Interpretation Code 0.04-0.27 [facility] Comment on above: Order Comment: Relea se to patient->Automatic Eosinophils/100 WBC (Bld) 1.4 % Invalid Interpretation Code 0.6-3.8 [facility] Comment on above: Order Comment: Relea se to patient->Automatic Erythrocyte distribution width (RBC) [Ratio] 12.4 % Invalid Interpretation Code 11.9-14.8 [facility] Comment on above: Order Comment: Relea se to patient->Automatic Hematocrit (Bld) [Volume fraction] 46.4 % High 35.5-44.6 [facility] Comment on above: Order Comment: Relea se to patient->Automatic Hemoglobin (Bld) [Mass/Vol] 15.1 g/dL High 11.4-14.8 [facility] Comment on above: Order Comment: Relea se to patient->Automatic Immature granulocytes/100 WBC (Bld) 0.3 % Invalid Interpretation Code 0.2-0.5 [facility] Comment on above: Order Comment: Relea se to patient->Automatic Result Comment: Jina ture Granulocyte Percent includes promyelocytes, myelocytes,and metamyelocytes. IG% > 1.0 indicates a left shift is present. With automated differentials, bands are included in the neutrophil count and not in the Immature Granulocyte Percent. Lymphocyte \P\ 3.57 10E3/???L High 1.51-2.99 [facility] Comment on above: Order Comment: Relea se to patient->Automatic Lymphocytes/100 WBC (Bld) 29.2 % Invalid Interpretation Code 21.8-42.1 [facility] Comment on above: Order Comment: Relea se to patient->Automatic MCH (RBC) [Entitic mass] 28.2 pg Invalid Interpretation Code 25.7-31.2 [facility] Comment on above: Order Comment: Relea se to patient->Automatic MCHC 32.5 % Invalid Interpretation Code 31.3-34.0 [facility] Comment on above: Order Comment: Relea se to patient->Automatic MCV (RBC) [Entitic vol] 86.6 fL Invalid Interpretation Code 80.7-93.7 [facility] Comment on above: Order Comment: Relea se to patient->Automatic Monocyte \P\ 0.89 10E3/???L High 0.36-0.77 [facility] Comment on above: Order Comment: Relea se to patient->Automatic Monocytes/100 WBC (Bld) 7.3 % Invalid Interpretation Code 5.6-10.2 [facility] Comment on above: Order Comment: Relea se to patient->Automatic Neutrophil \P\ 7.46 10E3/???L High 2.43-6.42 [facility] Comment on above: Order Comment: Relea se to patient->Automatic Neutrophils/100 WBC (Bld) 61.1 % Invalid Interpretation Code 46.0-68.6 [facility] Comment on above: Order Comment: Relea se to patient->Automatic Nucleated RBC/100 WBC (Bld) [Ratio] 0.0 % Invalid Interpretation Code 0.0-0.0 [facility] Comment on above: Order Comment: Relea se to patient->Automatic Platelet mean volume (Bld) [Entitic vol] 10.1 fL Invalid Interpretation Code 9.6-11.9 [facility] Comment on above: Order Comment: Relea se to patient->Automatic Platelets 412 10E3/???L High 150-400 [facility] Comment on above: Order Comment: Relea se to patient->Automatic RBC 5.36 10E6/???L High 4.03-4.91 [facility] Comment on above: Order Comment: Relea se to patient->Automatic WBC 12.2 10E3/???L High 4.9-10.0 [facility] Comment on above: Order Comment: Relea se to patient->Automatic COMPREHENSIVE METABOLIC PANE Joni 09-07-2024 Albumin [Mass/Vol] 4.7 g/dL Invalid Interpretation Code 3.5-5.0 [facility] Comment on above: Order Comment: Relea se to patient->Automatic Result Comment: Veri fied By: [id number] ALP [Catalytic activity/Vol] 62 U/L Invalid Interpretation Code 35-104 [facility] Comment on above: Order Comment: Relea se to patient->Automatic Result Comment: Veri fied By: [id number] ALT [Catalytic activity/Vol] 12 U/L Invalid Interpretation Code <=34 [facility] Comment on above: Order Comment: Relea se to patient->Automatic Result Comment: Veri fied By: [id number] AST [Catalytic activity/Vol] 30 U/L Invalid Interpretation Code <=31 [facility] Comment on above: Order Comment: Relea se to patient->Automatic Result Comment: Veri fied By: [id number] BILI,TOTAL 0.7 mg/dL Invalid Interpretation Code <=1.0 [facility] Comment on above: Order Comment: Relea se to patient->Automatic Result Comment: Veri fied By: [id number] Calcium [Mass/Vol] 10.5 mg/dL Invalid Interpretation Code 7.6-11.0 [facility] Comment on above: Order Comment: Relea se to patient->Automatic Result Comment: Veri fied By: [id number] Chloride [Moles/Vol] 102 mmol/L Invalid Interpretation Code 96-108 [facility] Comment on above: Order Comment: Relea se to patient->Automatic Result Comment: Veri fied By: [id number] CO2 [Moles/Vol] 26.1 mmol/L Invalid Interpretation Code 22.0-29.0 [facility] Comment on above: Order Comment: Relea se to patient->Automatic Result Comment: Veri fied By: [id number] Creatinine [Mass/Vol] 0.79 mg/dL Invalid Interpretation Code 0.50-1.00 [facility] Comment on above: Order Comment: Relea se to patient->Automatic Result Comment: Veri fied By: [id number] GFR/1.73 sq M.predicted among non-blacks MDRD (S/P/Bld) [Vol rate/Area] mL/min/{1.73_m2} Invalid Interpretation Code >=60 [facility] Comment on above: Order Comment: Relea se to patient->Automatic Glucose [Mass/Vol] 98 mg/dL Invalid Interpretation Code 70-99 [facility] Comment on above: Order Comment: Relea se to patient->Automatic Result Comment: Crit gonzalez for Diagnosis of Diabetes: Fasting Specimen (no caloric intake for at least 8 hours): <100 mg/dL Normal 100-125 mg/dL Increased risk for Diabetes >125 mg/dL Diagnostic for Diabetes Random Glucose (any time of day without regard to last meal): > or = 200 mg/dL plus Classic Symptoms of Diabetes Verified By: [id number] Potassium [Moles/Vol] 4.1 mmol/L Invalid Interpretation Code 3.3-5.1 [facility] Comment on above: Order Comment: Relea se to patient->Automatic Result Comment: Veri fied By: [id number] Protein [Mass/Vol] 8.0 g/dL Invalid Interpretation Code 5.9-8.4 [facility] Comment on above: Order Comment: Relea se to patient->Automatic Result Comment: Veri fied By: [id number] Sodium [Moles/Vol] 141 mmol/L Invalid Interpretation Code 133-145 [facility] Comment on above: Order Comment: Relea se to patient->Automatic Result Comment: Veri fied By: [id number] Urea nitrogen [Mass/Vol] 13 mg/dL Invalid Interpretation Code 4-19 [facility] Comment on above: Order Comment: Relea se to patient->Automatic Result Comment: Harmeet fied By: [id number] Complete Blood Count with Di fferentialOrdered By: Lindy Greer on 09-07-2024 Basophils (Bld) [#/Vol] 0.08 10*3/uL High [facility] Basophils/100 WBC (Bld) 0.7 % 0.3 - 0.9 % [facility] Eosinophils (Bld) [#/Vol] 0.17 10*3/uL [facility] Eosinophils/100 WBC (Bld) 1.4 % 0.6 - 3.8 % [facility] Erythrocyte distribution width (RBC) [Ratio] 12.4 % 11.9 - 14.8 % [facility] Hematocrit (Bld) [Volume fraction] 46.4 % High 35.5 - 44.6 % [facility] Hemoglobin (Bld) [Mass/Vol] 15.1 g/dL High 11.4 - 14.8 g/dL [facility] Immature granulocytes/100 WBC (Bld) 0.3 % 0.2 - 0.5 % [facility] Comment on above: Immature Granulocyte Percent includes promyelocytes, myelocytes,and metamyelocytes. IG% > 1.0 indicates a left shift is present. With automated differentials, bands are included in the neutrophil count and not in the Immature Granulocyte Percent. Interpretation and review of laboratory results Abnormal [facility] Lymphocytes (Bld) [#/Vol] 3.57 10*3/uL [facility] Lymphocytes/100 WBC (Bld) 29.2 % 21.8 - 42.1 % [facility] MCH (RBC) [Entitic mass] 28.2 pg 25.7 - 31.2 pg [facility] MCHC (RBC) [Mass/Vol] 32.5 % 31.3 - 34.0 % [facility] MCV (RBC) [Entitic vol] 86.6 fL 80.7 - 93.7 fL [facility] Monocytes (Bld) [#/Vol] 0.89 10*3/uL High [facility] Monocytes/100 WBC (Bld) 7.3 % 5.6 - 10.2 % [facility] Neutrophils (Bld) [#/Vol] 7.46 10*3/uL [facility] Neutrophils/100 WBC (Bld) 61.1 % 46.0 - 68.6 % [facility] Nucleated RBC/100 WBC (Bld) [Ratio] 0 % 0.0 - 0.0 % [facility] Platelet mean volume (Bld) [Entitic vol] 10.1 fL 9.6 - 11.9 fL [facility] Platelets (Bld) [#/Vol] 412 10*3/uL High [facility] RBC (Bld) [#/Vol] 5.36 10*6/uL [facility] WBC (Bld) [#/Vol] 12.2 10*3/uL [facility] Comprehensive metabolic pane l (Lab Collect)on 09-07-2024 Albumin BCG dye [Mass/Vol] 4.7 g/dL 3.5 - 5.0 g/dL [facility] Comment on above: Verified By: [id number] ALP [Catalytic activity/Vol] 62 U/L 35 - 104 U/L [facility] Comment on above: Verified By: [id number] ALT With P-5'-P [Catalytic activity/Vol] 12 U/L [facility] - 34 U/L [facility] Comment on above: Verified By: [id number] AST With P-5'-P [Catalytic activity/Vol] 30 U/L [facility] - 31 U/L [facility] Comment on above: Verified By: [id number] Bilirubin [Mass/Vol] 0.7 mg/dL [facility]/dL [facility] Comment on above: Verified By: [id number] Calcium [Mass/Vol] 10.5 mg/dL 7.6 - 11. 0 mg/dL [facility] Comment on above: Verified By: [id number] Chloride [Moles/Vol] 102 mmol/L 96 - 108 mmol/L [facility] Comment on above: Verified By: [id number] Creatinine [Mass/Vol] 0.79 mg/dL 0.50 - 1.00 mg/dL [facility] Comment on above: Verified By: [id number] eGFR - PINF [facility] Glucose [Mass/Vol] 98 mg/dL 70 - 99 mg/dL [facility] Comment on above: Criteria for Diagnos is of Diabetes: Fasting Specimen (no caloric intake for at least 8 hours): <100 mg/dL Normal 100-125 mg/dL Increased risk for Diabetes >125 mg/dL Diagnostic for Diabetes Random Glucose (any time of day without regard to last meal): > or = 200 mg/dL plus Classic Symptoms of Diabetes Verified By: [id number] HCO3 (P) [Moles/Vol] 26.1 mmol/L 22.0 - 29.0 mmol/L [facility] Comment on above: Verified By: [id number] Potassium (BldA) [Moles/Vol] 4.1 mmol/L 3.3 - 5.1 mmol/L [facility] Comment on above: Verified By: [id number] Protein [Mass/Vol] 8 g/dL 5.9 - 8.4 g/dL [facility] Comment on above: Verified By: [id number] Sodium [Moles/Vol] 141 mmol/L 133 - 145 mmol/L [facility] Comment on above: Verified By: [id number] Urea nitrogen [Mass/Vol] 13 mg/dL 4 - 19 mg/dL [facility] Comment on above: Verified By: [id number] HEMOGLOBIN A1Con 09-07-2024 HbA1c (Bld) [Mass fraction] 5.5 % Invalid Interpretation Code <=5.6 [facility] Comment on above: Order Comment: Relea se to patient->Automatic Result Comment: Refe rence Interval: <5.7% 5.7-6.4% Prediabetes > or = 6.5% Diabetes Targets for diabetes management: Type I <7.5% Type II <7.0% Hemoglobin A1c (Lab Collect) on 09-07-2024 HbA1c (Bld) [Mass fraction] 5.5 % NINF - 5.6 % [facility] Comment on above: Reference Interval: <5.7% 5.7-6.4% Prediabetes > or = 6.5% Diabetes Targets for diabetes management: Type I <7.5% Type II <7.0% Interpretation and review of laboratory results [facility] IMMUNOGLOBULIN Aon Immunoglobulin A 270 mg/dL Invalid Interpretation Code 61-348 [facility] Comment on above: Order Comment: Relea se to patient->Automatic Immunoglobulin AOrdered By: Background Lab on 09-07-2024 IgA [Mass/Vol] 270 mg/dL 61 - 348 mg/dL [facility] Interpretation and review of laboratory results Normal [facility] No Panel Informationon 09-07 Interpretation and review of laboratory results Normal [facility] PREALBUMINon 09-07-2024 Prealbumin [Mass/Vol] 23 mg/dL Invalid Interpretation Code 20-42 [facility] Comment on above: Order Comment: Venua se to patient->Automatic Prealbuminon 09-07-2024 Interpretation and review of laboratory results Normal [facility] Prealbumin [Mass/Vol] 23 mg/dL 20 - 42 mg/dL 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 Check CXR at [facility] Normal chest xray Reviewed asthma plan [...] abdominal tenderness. Neurological: She is alert. Normal [facility] TRANSGLUTAMINASE IGAon 09-07 Transglutaminase IgA 1.69 U/mL Invalid Interpretation Code <=8.99 [facility] Comment on above: Order Comment: Inter pretation of Results: Negative: <9.0 AU/mL Equivocal: 9.0-16.0 AU/mL Positive: >16.0 AU/mL Method: The anti-tTG antibodies were determined using an FRANKY-based commercially available kit (Eu-tTG [employer], [facility]). Release to patient->Automatic TSH WITH REFLEX TO T4, FREEo n 09-07-2024 TSH 1.030 ???IU/mL Invalid Interpretation Code 0.500-4.300 [facility] Comment on above: Order Comment: Relea se to patient->Automatic TSH with Reflex to T4, Free (Lab Collect)on 09-07-2024 Interpretation and review of laboratory results Normal [facility] TSH Qn 1.03 m[IU]/L [facility] Chest PA and Lateralon 08-29 Chest PA and Lateral [facility] Imaging Services [address] [place] [address] Chest PA and Lateral MR#: [id number] Acct: [id number] Name: LUIS BARAJAS Rep #: [id number] : 2005 F 19 From: Jennie dutta MD PCP: Dr. Mitzy Fung MD Status: REG CLI Study: Chest PA and Lateral Date of Exam: 08/29/24 Exam# [id number] Ordering Dr: Lois Conde MD -[id number] HISTORY: PNEUMONIA. TECHNIQUE: XR Chest 2 Views. COMPARISON: 2024. FINDINGS: CARDIOMEDIASTINAL BORDERS: Cardiac silhouette within normal limits in size. Mediastinal contour unremarkable. LUNGS: Radiographically clear. PLEURA: No pleural effusion or pneumothorax seen. OSSEOUS STRUCTURES: Unremarkable. RAD/Chest PA and Lateral IMPRESSION: No acute cardiopulmonary process identified. Electronically Signed: Jennie Garcia MD at 10:06 EST Reading Location ID and State: [facility] / [place] Tel , Service support , CC: Dr. Mitzy Fung MD; Dr. Lois Conde MD Seed Corn Production Manager: Signed [facility] Progress Noteon 08-29-2024 Piped Buttonhole Machine Operator Authentication Interface Message Text Patient ID: Luis [...] no rhonchi. Neurological: She is alert. Normal [facility] CNOVon 08-27-2024 CNOV Office Visit (UCWSTR) ---- LUIS BARAJAS ([id number]) 5 F Date Time Provider Department 08/27/24 11:45 AM JASMIN ENRIQUEZ RUST During your visit today, we recorded the following information about you: Temperature Pulse Respiration Blood pressure 98.4 degrees 106/minute 20/minute 110/78 Weight 57.1 kg Jasmin Enriquez APRN.PAPER INSERTER 08/27/2024 12:30 PM Addendum ASSESSMENT/PLAN: 1. Sore [...] Discussed expected course of illness Jasmin Enriquez APRN.PAPER INSERTER Previous hospitalization care team: Attending Provider: Ernestina Lanza MD (attending for admission) Consulting: Tirso Richey MD (ENT) Consulting: Jason Uriostegui MD (infectious disease) Jasmin Enriquez APRN.PAPER INSERTER 08/27/2024 12:30 PM Signed Subjective Ear Pain [...] Passive e (more content not included)... Normal [facility] COVID AND INFLUENZA A/B AND RSV PCR, ROUTINEon 08-27-2024 SARS-CoV-2 (COVID-19) RNA JAIRON+probe Ql (Unsp spec) SARS-COV-2 (AGENT OF COVID-19) RNA: Not detected INFLUENZA A RNA: Not detected INFLUENZA B RNA: Not detected RESPIRATORY SYNCYTIAL VIRUS (RSV) RNA: Not detected Normal [facility] Comment on above: Performed By: #### C VFLRS ####[facility] [id number] [address] [place] STREP A MOLECULAR (POC)on Procedural Control Valid [facility] Strep A (POCT) Negative Negative [facility] Urine Cultureon 06-17-2024 [facility] Escherichia coli [place] Count 50,000-80,000 Escherichia coli: REACTION Ampicillin Islt [...] TMP SMX Islt [place] <=20 S Normal [facility] Comment on above: Performed By: #### M 100.8832 #### [facility] [address] [place], [address] CNDSon 04-26-2024 [facility] HNO ID: [id number] Author: ERNESTINA LANZA MD Service: Hospital Medicine [...] PCOS, asthma, URIEL. Patient was transferred from [facility] today for concerns of 2 cm [...] sore throat associated with dysphagia At the [place] [facility] CT neck with IV contrast showing [...] mg tablet Commo (more content not included)... Normal [facility] CONSULTon 04-25-2024 CONSULT HNO ID: [id number] Author: JASON URIOSTEGUI MD Service: Infectious Disease [...] well. Was given an oral cephalosporin by seat coverer late last week. States that feeling better [...] COVID-19 original vaccine, age 12+ yr, monovalent (boarding pass-CDEL - PURPLE TOP) 04/30/2021 05/22/2021 Haemophilus influenzae [...] April 25, 2024 TIME: 10:[address] [facility] Basic Metabolic Panelon 09-0 Anion gap [Moles/Vol] 7 mmol/L Normal 4-14 [facility] ([place]) Comment on above: Performed By: #### B MP #### [facility] [address] [place] [address] Calcium [Mass/Vol] 9.1 mg/dL Normal 8.5-10.5 [facility] ([place]) Comment on above: Performed By: #### B MP #### [facility] [address] [place] [address] Chloride [Moles/Vol] 106 mmol/L Normal 98-107 [facility]) Comment on above: Performed By: #### B MP #### [facility] [address] [place] [address] CO2 [Moles/Vol] 25 mmol/L Normal 21-31 [facility] ([place]) Comment on above: Performed By: #### B MP #### [facility] [address] [place] [address] Creatinine [Moles/Vol] 0.61 mg/dL Normal 0.60-1.20 [facility] ([place]) Comment on above: Performed By: #### B MP #### [facility] [address] [place] [address] Creatinine and Glomerular filtration rate.predicted panel (S/P/Bld) 153 mL/min Normal >60 [facility] ([place]) Comment on above: Performed By: #### B MP #### [facility] [address] [place] [address] GFR/1.73 sq M.predicted among non-blacks MDRD (S/P/Bld) [Vol rate/Area] 126 mL/min/{1.73_m2} Normal >60 [facility] ([place]) Comment on above: Performed By: #### B MP #### [facility] [address] [place] [address] Glucose [Mass/Vol] 91 mg/dL Normal 70-99 [facility] ([place]) Comment on above: Performed By: #### B MP #### [facility] [address] [place] [address] Potassium [Moles/Vol] 3.7 mmol/L Normal 3.6-5.0 [facility] ([place]) Comment on above: Performed By: #### B MP #### [facility] [address] [place] [address] Sodium [Moles/Vol] 138 mmol/L Normal 135-145 [facility] ([place]) Comment on above: Performed By: #### B MP #### [facility] [address] [place] [address] Urea nitrogen [Mass/Vol] 12 mg/dL Normal 7-25 [facility] ([place]) Comment on above: Performed By: #### B MP #### [facility] [address] [place] [address] CBC W Auto Differential pane l (Bld)on 04-24-2024 Basophils (Bld) [#/Vol] 0.1 10*3/uL Normal 0.00-0.20 [facility] ([place]) Comment on above: Performed By: #### 5 7021-8 #### [facility] [address] [place] [address] Basophils/100 WBC (Bld) 0.8 % Normal 0.0-1.5 [facility] ([place]) Comment on above: Performed By: #### 5 7021-8 #### [address] [address] Eosinophils (Bld) [#/Vol] 0.0 10*3/uL Normal 0.00-0.33 [facility] ([place]) Comment on above: Performed By: #### 5 7021-8 #### [address] [address] Eosinophils/100 WBC (Bld) 0.3 % Normal 0.0-3.0 [facility] ([place]) Comment on above: Performed By: #### 5 7021-8 #### [address] [address] Erythrocyte distribution width (RBC) [Ratio] 11.9 % Normal 10.9-14.3 [facility] ([place]) Comment on above: Performed By: #### 5 7021-8 #### [address] [address] Hematocrit (Bld) [Volume fraction] 31.8 % Low 36.0-44.0 [facility] ([place]) Comment on above: Performed By: #### 5 7021-8 #### [address] [address] Hemoglobin (Bld) [Mass/Vol] 10.8 g/dL Low 12.0-15.0 [facility] ([place]) Comment on above: Performed By: #### 5 7021-8 #### [address] [address] Lymphocytes Auto (Unsp spec) [#/Vol] 1.9 10*3/uL Normal 1.10-4.80 [facility] ([place]) Comment on above: Performed By: #### 5 7021-8 #### [address] [address] Lymphocytes/100 WBC (Bld) 13.2 % Low 24.0-44.0 [facility] ([place]) Comment on above: Performed By: #### 5 7021-8 #### [facility] [address] [place] [address] MCH (RBC) [Entitic mass] 29.1 pg Normal 28.0-34.0 [facility] ([place]) Comment on above: Performed By: #### 5 7021-8 #### [address] [address] MCHC (RBC) [Mass/Vol] 34.1 g/dL Normal 33.0-37.0 [facility] ([place]) Comment on above: Performed By: #### 5 7021-8 #### [address] [address] MCV (RBC) [Entitic vol] 85.2 fL Normal 80.0-100.0 [facility] ([place]) Comment on above: Performed By: #### 5 7021-8 #### [facility] [address] [place] [address] Monocytes (Bld) [#/Vol] 1.2 10*3/uL High 0.20-0.70 [facility] ([place]) Comment on above: Performed By: #### 5 7021-8 #### [facility] [address] [place] [address] Monocytes/100 WBC (Bld) 8.2 % Normal 3.4-9.0 [facility] ([place]) Comment on above: Performed By: #### 5 7021-8 #### [address] [address] Neutrophils (Bld) [#/Vol] 11.2 10*3/uL High 1.83-8.70 [facility] ([place]) Comment on above: Performed By: #### 5 7021-8 #### [address] [address] Neutrophils/100 WBC (Bld) 77.5 % High 40.0-74.0 [facility] ([place]) Comment on above: Performed By: #### 5 7021-8 #### [facility] [address] [place] [address] Platelet mean volume (Bld) [Entitic vol] 8.0 fL Normal 7.4-10.4 [facility] ([place]) Comment on above: Performed By: #### 5 7021-8 #### [facility] [address] [place] [address] Platelets (Bld) [#/Vol] 350 10*3/uL Normal 150-450 [facility] ([place]) Comment on above: Performed By: #### 5 7021-8 #### [facility] [address] [place] [address] RBC (Bld) [#/Vol] 3.73 10*6/uL Low 4.00-4.90 [facility] ([place]) Comment on above: Performed By: #### 5 7021-8 #### [facility] [address] [place] [address] WBC (Bld) [#/Vol] 14.4 10*3/uL High 4.5-11.0 [facility] ([place]) Comment on above: Performed By: #### 5 7021-8 #### [address] [address] CBC panel Auto (Bld)on 04-24 Erythrocyte distribution width (RBC) [Ratio] 11.3 % Low 11.5-15.0 [facility] Comment on above: Order Comment: Speci men Type: BLOOD SPECIMEN Ordering Facility: [facility] Address: [address] [place] [address] Performed By: #### 5 8410-2 #### [facility] CLIA [id number] [address] [place] [address] [place] Hematocrit (Bld) [Volume fraction] 36.0 % Normal 36.0-46.0 [facility] Comment on above: Order Comment: Speci men Type: BLOOD SPECIMEN Ordering Facility: [facility] Address: [address] [place] [address] Performed By: #### 5 8410-2 #### [facility] CLIA [id number] [address] [place] [address] [place] Hemoglobin (Bld) [Mass/Vol] 12.2 g/dL Normal 11.5-15.5 [facility] Comment on above: Order Comment: Speci men Type: BLOOD SPECIMEN Ordering Facility: [facility] Address: [address] [place] [address] Performed By: #### 5 8410-2 #### [facility] CLIA [id number] [address] [place] [address] [place] MCH (RBC) [Entitic mass] 29.3 pg Normal 26.0-34.0 [facility] [place] Comment on above: Order Comment: Speci men Type: BLOOD SPECIMEN Ordering Facility: [facility] Address: [address] [place] [address] Performed By: #### 5 8410-2 #### [facility] CLIA [id number] [address] [place] [address] [place] MCHC (RBC) [Mass/Vol] 33.9 g/dL Normal 30.5-36.0 [facility] Comment on above: Order Comment: Speci men Type: BLOOD SPECIMEN Ordering Facility: [facility] Address: [address] [place] [address] Performed By: #### 5 8410-2 #### [facility] CLIA [id number] [address] [place] [address] [place] MCV (RBC) [Entitic vol] 86.3 fL Normal 80.0-100.0 M [facility] Comment on above: Order Comment: Speci men Type: BLOOD SPECIMEN Ordering Facility: [facility] Address: [address] [place] [address] Performed By: #### 5 8410-2 #### [facility] CLIA [id number] [address] [place] [address] [place] Nucleated RBC (Bld) [#/Vol] 10*3/uL Normal <0.01 [facility] [place] Comment on above: Order Comment: Speci men Type: BLOOD SPECIMEN Ordering Facility: [facility] Address: [address] [place] [address] Performed By: #### 5 8410-2 #### [facility] CLIA [id number] [address] [place] [address] [place] Platelet mean volume (Bld) [Entitic vol] 9.7 fL Normal 9.0-12.7 [facility] [place] Comment on above: Order Comment: Speci men Type: BLOOD SPECIMEN Ordering Facility: [facility] Address: [address] [place] [address] Performed By: #### 5 8410-2 #### [facility] CLIA [id number] [address] [place] [address] [place] Platelets (Bld) [#/Vol] 391 10*3/uL Normal 150-400 [facility] [place] Comment on above: Order Comment: Speci men Type: BLOOD SPECIMEN Ordering Facility: [facility] Address: [address] [place] [address] Performed By: #### 5 8410-2 #### [facility] CLIA [id number] [address] [place] [address] [place] RBC (Bld) [#/Vol] 4.17 10*6/uL Normal 3.90-5.20 [facility] [place] Comment on above: Order Comment: Speci men Type: BLOOD SPECIMEN Ordering Facility: [facility] Address: [address] [place] [address] Performed By: #### 5 8410-2 #### [facility] CLIA [id number] [address] [place], [place] [id number] [place] WBC (Bld) [#/Vol] 13.20 10*3/uL High 3.70-11.00 [facility] Comment on above: Order Comment: Speci men Type: BLOOD SPECIMEN Ordering Facility: [facility] Address: [address], [place] [address] Performed By: #### 5 8410-2 #### [facility] CLIA [id number] [address] [place] [address] [place] CONSULTon 04-24-2024 CONSULT HNO ID: [id number] Author: TIRSO RICHEY MD Service: Otolaryngology Author Type: Physician Type: Consults Filed: 04/24/2024 14:50 Note Text: 04/24/2024 This 19-year-old patient was transferred from [facility] for management of a right peritonsillar abscess. She complains of sore throat for the last 3 days following dental extraction procedures on the right side of her mouth. She does have a history of frequent tonsil stones but no frequent strep positive infections. She was evaluated by her local ENT in [place] who told her she was not a candidate for tonsillectomy due to the infrequency of her strep positive infections. She was given some oral antibiotics at [facility] without improvement. Her evaluation here shows that she is afebrile, white blood cell count 13,200. There is a CT scan that was transferred from [facility] which shows asymmetric swelling of the right [...] of that extraction site. Tirso Richey MD [facility] CT soft tissue neck wo/w con on 04-24-2024 CT soft tissue neck wo/w con [facility] [address] [place] [address] CT Scan Report Signed Patient: LUIS BARAJAS MR#: [id number] : 2005 Acct:[id number] Age/Sex: 19 / F Admit Date: 04/23/24 Loc: ER Attending Dr: Ordering Physician: Natanael Hyde MD Date of Service: 04/24/24 Procedure(s): CT soft tissue neck wo/w con Accession Number(s): [id number] cc: Natanael Hyde MD INDICATION: Right tonsillar [...] DD/ 8 Signed By: Ara Burton 04/24/24348 [employer] Manager: DELGADO 04/24/24348 [facility] ([place]) Comprehensive metabolic 2000 panelon 04-24-2024 Albumin [Mass/Vol] 4.0 g/dL Normal 3.2-5.0 [facility] Comment on above: Order Comment: Speci men Type: BLOOD SPECIMEN Ordering Facility: [facility] Address: [address] [place] [address] Performed By: #### 2 4323-8, 37398-0, 2776-08 #### [facility] CLIA [id number] [address] [place] [address] [place] ALP [Catalytic activity/Vol] 72 U/L Normal 45-117 [facility] [place] Comment on above: Order Comment: Speci men Type: BLOOD SPECIMEN Ordering Facility: [facility] Address: [address] [place] [address] Performed By: #### 2 4323-8, , 2776-08 #### [facility] CLIA [id number] [address] [place] [address] [place] ALT [Catalytic activity/Vol] 8 U/L Low 13-61 [facility] Comment on above: Order Comment: Speci men Type: BLOOD SPECIMEN Ordering Facility: [facility] Address: [address] [place] [address] Result Comment: Resu lts may be falsely depressed after the administration of Sulfasalazine and/or Sulfapyridine. Performed By: #### 2 4323-8, , 2776-08 #### [facility] CLIA [id number] [address] [place] [address] [place] Anion gap [Moles/Vol] 9 mmol/L Normal 5-16 [facility] Comment on above: Order Comment: Speci men Type: BLOOD SPECIMEN Ordering Facility: [facility] Address: [address] [place] [address] Performed By: #### 2 4323-8, , 2776-08 #### [facility] CLIA [id number] [address] [place] [address] [place] AST [Catalytic activity/Vol] 19 U/L Normal 8-34 [facility] Comment on above: Order Comment: Speci men Type: BLOOD SPECIMEN Ordering Facility: [facility] Address: [address] [place] [address] Result Comment: Resu lts may be falsely depressed after the administration of Sulfasalazine and/or Sulfapyridine. Performed By: #### 2 4323-8, , 2776-08 #### [facility] CLIA [id number] [address] [place], [place] [address] [place] Bilirubin [Mass/Vol] 0.5 mg/dL Normal 0.2-1.0 [facility] Comment on above: Order Comment: Speci men Type: BLOOD SPECIMEN Ordering Facility: [facility] Address: [address] [place] [address] Performed By: #### 2 4323-8, , 2776-08 #### [facility] CLIA [id number] [address] [place] [address] [place] Calcium [Mass/Vol] 10.3 mg/dL Normal 8.5-10.5 [facility] [place] Comment on above: Order Comment: Speci men Type: BLOOD SPECIMEN Ordering Facility: [facility] Address: [address] [place] [address] Performed By: #### 2 4323-8, , 2776-08 #### [facility] CLIA [id number] [address] [place] [address] [place] Chloride [Moles/Vol] 108 mmol/L High 98-107 [facility] Comment on above: Order Comment: Speci men Type: BLOOD SPECIMEN Ordering Facility: [facility] Address: [address] [place] [address] Performed By: #### 2 4323-8, , 2776-08 #### [facility] CLIA [id number] [address] [place], [place] [address] [place] CO2 [Moles/Vol] 23 mmol/L Normal 21-32 [facility] [place] Comment on above: Order Comment: Speci men Type: BLOOD SPECIMEN Ordering Facility: [facility] Address: [address] [place] [address] Performed By: #### 2 4323-8, , 2777-1 #### [facility] CLIA [id number] [address] [place] [address] [place] Creatinine [Mass/Vol] 0.61 mg/dL Normal 0.51-0.95 [facility] Comment on above: Order Comment: Ryan spain Type: BLOOD SPECIMEN Ordering Facility: [facility] Address: [address] [place] [address] Result Comment: Ernestine ents receiving either N-Acetylcysteine (NAC) or Metamizole prior to venipuncture, may have falsely depressed results. Performed By: #### 2 4323-8, 43397-2, 2776- #### [facility] CLIA [id number] [address] [place] [address] Creatinine and Glomerular filtration rate.predicted panel (S/P/Bld) 132 mL/min/1.73m??? Normal >=60 [facility] Comment on above: Order Comment: Ryan spain Type: BLOOD SPECIMEN Ordering Facility: [facility] Address: [address] [place] [address] Result Comment: Meeta mated Glomerular Filtration Rate [...] By: #### 2 4323-8, , 2776-08 #### [facility] CLIA [id number] [address] [place], [place] [address] [place] Glucose [Mass/Vol] 120 mg/dL High 70-100 [facility] Comment on above: Order Comment: Ryan spain Type: BLOOD SPECIMEN Ordering Facility: [facility] Address: [address] [place] [address] Result Comment: The [place] [employer] (ADA) provides guidance for cutoff [...] Standards of Medical Care in Diabetes 2016, [place] [employer]. Diabetes Care. 2016.39(Suppl 1). Results may be falsely elevated after the administration of Sulfapyridine. Results may be falsely depressed after the administration of Sulfasalazine. Performed By: #### 2 4323-8, , 2776-08 #### [facility] CLIA [id number] [address] [place] [address] [place] Potassium [Moles/Vol] 4.1 mmol/L Normal 3.5-5.1 [facility] Comment on above: Order Comment: Ryan spain Type: BLOOD SPECIMEN Ordering Facility: [facility] Address: [address] [place] [address] Performed By: #### 2 4323-8, , 2776-08 #### [facility] CLIA [id number] [address] [place] [address] [place] Protein [Mass/Vol] 8.1 g/dL Normal 6.0-8.5 [facility] Comment on above: Order Comment: Ryan spain Type: BLOOD SPECIMEN Ordering Facility: [facility] Address: [address] [place] [address] Performed By: #### 2 4323-8, , 2776-08 #### [facility] CLIA [id number] [address] [place] [address] [place] Sodium [Moles/Vol] 140 mmol/L Normal 136-145 [facility] Comment on above: Order Comment: Ryan spain Type: BLOOD SPECIMEN Ordering Facility: [facility] Address: [address] [id number] Performed By: #### 2 4323-8, , 2776-08 #### [facility] CLIA [id number] [address] [id number] [place] Urea nitrogen [Mass/Vol] 15 mg/dL Normal 7- [facility] Comment on above: Order Comment: Speci men Type: BLOOD SPECIMEN Ordering Facility: [facility] Address: [facility] [place] [address] Performed By: #### 2 4323-8, 32306-2, 2777-1 #### [facility] CLIA [id number] [address] [place] [address] [place] HISTORY PHYSICALon HISTORY PHYSICAL HNO ID: [id number] Author: GUSTAVO CHAN MD Service: Hospital Medicine Author Type: Physician Type: H&P Filed: 04/24/2024 10:36 Note Text: HISTORY AND PHYSICAL EXAMINATION SERVICE DATE: 04/24/2024 SERVICE TIME: 9:46 PM PRIMARY CARE PHYSICIAN: Mitzy Fung MD, MD CHIEF COMPLAINT: Sore throat/dysphagia HPI: This is a 19 year old female with a past medical history of ADHD, PCOS, asthma, URIEL. Patient was transferred from [facility] hospital today for concerns of 2 cm right peritonsillar abscess. Of note patient recently had a dental extraction at [facility] approximately 1 week ago due to concerns for infection was given p.o. cefdinir and Keflex however patient started having dysphagia associated with sore throat and went to [facility]. At [facility] ED patient was given IV clindamycin and IV Decadron in the ED. Due to [facility] not having ENT onsite patient was transferred here at [facility] for further ENT management as [...] Routine labs (more content not included)... Normal [facility] Magnesium Bessyl-sanjuanaon 04-24 Magnesium [Mass/Vol] 2.2 mg/dL Normal 1.6-2.6 [facility] Comment on above: Order Comment: Speci men Type: BLOOD SPECIMEN Ordering Facility: [facility] Address: [address] [place] [address] Performed By: #### 2 0143-8, 29149-0, 2777-1 #### [facility] CLIA [id number] [address] [place] [address] [place] Phosphate SerPl-mCncon 04-24 Phosphate [Mass/Vol] 3.8 mg/dL Normal 2.5-4.9 [facility] Comment on above: Order Comment: Speci men Type: BLOOD SPECIMEN Ordering Facility: [facility] Address: [facility] [place] [address] Result Comment: Elev ated m-protein (paraprotein) levels in the serum may be exhibited in patients with monoclonal gammopathies, causing falsely elevated inorganic phosphorus results. 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 Normal [facility] 12 Lead EKGon 2024 12 Lead EKG [facility] [address] [place] [address] 12 Lead EKG 04/17/24 0305 MR#: [id number] Acct: [id number] Name: LUIS BARAJAS Rep #: [id number] : 2005 19 From: Andrés Faith MD [...] tracing Baseline artifact Confirmed by Andrés Faith ([id number]), publications editor IVONNE MAHAJAN ([id number]) on 04/18/2024 10:56:34 AM Referred By: LINNEA Confirmed By:Andrés Faith 04/18/24 1056 Date Andrés Faith MD CC: Dr. Mitzy Fung MD; Teodoro Garcia DO Signed Normal [facility] Basic Metabolic Profile (BMP )on 2024 BUN/CRE 12.7 RATIO Normal 10-20 [facility] Comment on above: Order Comment: 'TROP ' Serial specimen #1, #2 or #3: 1 Performed By: #### L 501.4020, L300.8000, L100.0100, L500.2500, L501.5200 #### [facility] [address] [place], [address] CA,Total 9.4 mg/dL Normal 8.5-10.1 [facility] Comment on above: Order Comment: 'TROP ' Serial specimen #1, #2 or #3: 1 Performed By: #### L 501.4020, L300.8000, L100.0100, L500.2500, L501.5200 #### [facility] [address] [place], [address] Chloride [Moles/Vol] 106 mmol/L Normal 98-[address] [facility] Comment on above: Order Comment: 'TROP ' Serial specimen #1, #2 or #3: 1 Performed By: #### L 501.4020, L300.8000, L100.0100, L500.2500, L501.5200 #### [facility] [address] [place], [address] CO2 [Moles/Vol] 25.0 mmol/L Normal 21.0-32.0 [facility] Comment on above: Order Comment: 'TROP ' Serial specimen #1, #2 or #3: 1 Performed By: #### L 501.4020, L300.8000, L100.0100, L500.2500, L501.5200 #### [facility] [address] [place], [address] Creatinine [Mass/Vol] 0.87 mg/dL Normal 0.55-1.02 [facility] Comment on above: Order Comment: 'TROP ' Serial specimen #1, #2 or #3: 1 Result Comment: The validity of the calculated GFR GFRAA in patients over 70 years has not been determined. Clinical correlation is essential. Performed By: #### L 501.4020, L300.8000, L100.0100, L500.2500, L501.5200 #### [facility] [address] [place], [address] ECRCL 93.59 ml/min Normal [facility] Comment on above: Order Comment: 'TROP ' Serial specimen #1, #2 or #3: 1 Performed By: #### L 501.4020, L300.8000, L100.0100, L500.2500, L501.5200 #### [facility] [address] [place], [address] EST GFR - AA 108 mL/min Normal >60 [facility] Comment on above: Order Comment: 'TROP ' Serial specimen #1, #2 or #3: 1 Result Comment: Afri can [place] GFR Calc Performed By: #### L 501.4020, L300.8000, L100.0100, L500.2500, L501.5200 #### [facility] [address] [place], [address] GAP 8 Normal 5-15 [facility] Comment on above: Order Comment: 'TROP ' Serial specimen #1, #2 or #3: 1 Performed By: #### L 501.4020, L300.8000, L100.0100, L500.2500, L501.5200 #### [facility] [address] [place], [address] GFR/1.73 sq M.predicted among non-blacks MDRD (S/P/Bld) [Vol rate/Area] 90 mL/min/{1.73_m2} Normal >60 [facility] Comment on above: Order Comment: 'TROP ' Serial specimen #1, #2 or #3: 1 Result Comment: Non- GFR Calc Performed By: #### L 501.4020, L300.8000, L100.0100, L500.2500, L501.5200 #### [facility] [address] [place], [address] Glucose [Mass/Vol] 73 mg/dL Low 74-106 [facility] Comment on above: Order Comment: 'TROP ' Serial specimen #1, #2 or #3: 1 Performed By: #### L 501.4020, L300.8000, L100.0100, L500.2500, L501.5200 #### [facility] [address] [place], [address] Potassium [Moles/Vol] 3.2 mmol/L Low 3.5-5.1 [facility] Comment on above: Order Comment: 'TROP ' Serial specimen #1, #2 or #3: 1 Performed By: #### L 501.4020, L300.8000, L100.0100, L500.2500, L501.5200 #### [facility] [address] [place], [address] Sodium [Moles/Vol] 139 mmol/L Normal 136-145 [facility] Comment on above: Order Comment: 'TROP ' Serial specimen #1, #2 or #3: 1 Performed By: #### L 501.4020, L300.8000, L100.0100, L500.2500, L501.5200 #### [facility] [address] [place], [address] Urea nitrogen [Mass/Vol] 11 mg/dL Normal 7-18 [facility] Comment on above: Order Comment: 'TROP ' Serial specimen #1, #2 or #3: 1 Performed By: #### L 501.4020, L300.8000, L100.0100, L500.2500, L501.5200 #### [facility] [address] [place], [address] CBC W/Diff, Automatedon 08-2 Absolute Lymph 3.76 X10 3/uL Normal 0.83-4.51 [facility] Comment on above: Performed By: #### L 501.4020, L300.8000, L100.0100, L500.2500, L501.5200 #### [facility] [address] [place], [address] Absolute Neut 4.9 X10 3/uL Normal 2.0-7.7 [facility] Comment on above: Performed By: #### L 501.4020, L300.8000, L100.0100, L500.2500, L501.5200 #### [facility] [address] [place], [address] Basophils/100 WBC (Bld) 0.5 % Normal 0-1 [facility] Comment on above: Performed By: #### L 501.4020, L300.8000, L100.0100, L500.2500, L501.5200 #### [facility] [address] [place], [address] Eosinophils/100 WBC (Bld) 1.4 % Normal 0-5 [facility] Comment on above: Performed By: #### L 501.4020, L300.8000, L100.0100, L500.2500, L501.5200 #### [facility] [address] [place], [address] Erythrocyte distribution width (RBC) [Ratio] 11.9 % Normal 11.6-14.6 [facility] Comment on above: Performed By: #### L 501.4020, L300.8000, L100.0100, L500.2500, L501.5200 #### [facility] [address] [place], [address] Hematocrit (Bld) [Volume fraction] 36.0 % Low 37-47 [facility] Comment on above: Performed By: #### L 501.4020, L300.8000, L100.0100, L500.2500, L501.5200 #### [facility] [address] [place], [address] Hemoglobin (Bld) [Mass/Vol] 11.6 g/dL Low 12.0-15.0 [facility] Comment on above: Performed By: #### L 501.4020, L300.8000, L100.0100, L500.2500, L501.5200 #### [facility] [address] [place], [address] IG% 0.300 Normal 0.0-0.9 [facility] Comment on above: Result Comment: IG% - Immature Granulocytes (promyelocytes, myelocytes and metamyelocytes) > 1% indicates that a LEFT SHIFT is Present. Performed By: #### L 501.4020, L300.8000, L100.0100, L500.2500, L501.5200 #### [facility] [address], [address] Lymphocytes/100 WBC (Bld) 38.3 % Normal 19-41 [facility] Comment on above: Performed By: #### L 501.4020, L300.8000, L100.0100, L500.2500, L501.5200 #### [facility] [address] [place], [address] MCH (RBC) [Entitic mass] 28.3 pg Normal 27.0-32.0 [facility] Comment on above: Performed By: #### L 501.4020, L300.8000, L100.0100, L500.2500, L501.5200 #### [facility] [address] [place], [address] MCHC (RBC) [Mass/Vol] 32.2 g/dL Normal 32-36 [facility] Comment on above: Performed By: #### L 501.4020, L300.8000, L100.0100, L500.2500, L501.5200 #### [facility] [address] [place], [address] MCV (RBC) [Entitic vol] 87.8 fL Normal 81-99 [facility] Comment on above: Performed By: #### L 501.4020, L300.8000, L100.0100, L500.2500, L501.5200 #### [facility] [address] [place], [address] Monocytes/100 WBC (Bld) 9.3 % Normal 0-10 [facility] Comment on above: Performed By: #### L 501.4020, L300.8000, L100.0100, L500.2500, L501.5200 #### [facility] [address] [place], [address] Neutrophils/100 WBC (Bld) 50.2 % Normal 47-70 [facility] Comment on above: Performed By: #### L 501.4020, L300.8000, L100.0100, L500.2500, L501.5200 #### [facility] [address] [place], [address] Nucleated RBC (Bld) [#/Vol] 0 10*3/uL Normal 0-5 [facility] Comment on above: Performed By: #### L 501.4020, L300.8000, L100.0100, L500.2500, L501.5200 #### [facility] [address] [place], [address] Platelet mean volume (Bld) [Entitic vol] 10.3 fL Normal 6.2-12.0 [facility] Comment on above: Performed By: #### L 501.4020, L300.8000, L100.0100, L500.2500, L501.5200 #### [facility] [address] [place], [address] Platelets (Bld) [#/Vol] 305 10*3/uL Normal 150-450 [facility] Comment on above: Performed By: #### L 501.4020, L300.8000, L100.0100, L500.2500, L501.5200 #### [facility] [address] [place], [address] RBC (Bld) [#/Vol] 4.10 10*6/uL Low 4.2-5.4 [facility] Comment on above: Performed By: #### L 501.4020, L300.8000, L100.0100, L500.2500, L501.5200 #### [facility] [address] [place], [address] RDW SD 38.3 fl Normal 35.1-43.9 [facility] Comment on above: Performed By: #### L 501.4020, L300.8000, L100.0100, L500.2500, L501.5200 #### [facility] [address] [place], [address] WBC (Bld) [#/Vol] 9.8 10*3/uL Normal 4.4-11.0 [facility] Comment on above: Performed By: #### L 501.4020, L300.8000, L100.0100, L500.2500, L501.5200 #### [facility] [address] [place], [address] CTA Chest W/WO Contraston CTA Chest W/WO Contrast [facility] Imaging Services [address] [place] [address] CTA Chest W/WO Contrast MR#: [id number] Acct: [id number] Name: LUIS BARAJAS Rep #: [id number] : 2005 F 19 From: Sal Nobles MD PCP: Dr. Mitzy Fung MD Status: [facility] Study: CTA Chest W/WO Contrast Date of Exam: 04/17/24 Exam# [id number] Ordering Dr: Teodoro Garcia DO [id number] STUDY: CTA CHEST REASON FOR EXAM: [...] Dr. Mitzy Fung MD; Teodoro Garcia DO Seed Corn Production Manager: Signed Normal [facility] Chest PA and Lateralon 04-17 Chest PA and Lateral [facility] Imaging Services [address] [place] [address] [id number] Chest PA and Lateral MR#: [id number] Acct: [id number] Name: LUIS BARAJAS Rep #: [id number] : 2005 F 19 From: Sal Nobles MD PCP: Dr. Mitzy Fung MD Status: REG ER Study: Chest PA and Lateral Date of Exam: 04/17/24 Exam# [id number] Ordering Dr: Teodoro Garcia DO -[id number] INDICATION: chest pain EXAMINATION/TECHNIQ UE: X-RAY [...] Dr. Mitzy Fung MD; Teodoro Garcia DO [employer] Production Manager: Signed Normal [facility] D-Dimer Quantitative (DVT/PE )on 2024 D-DIMER QUANT 0.55 FEU/ug/m Invalid Interpretation Code 0.27-0.49 [facility] Comment on above: Result Comment: D-Di vicente ELEVATED (>0.49): Additional studies and clinical assessments are indicated to conclude diagnosis of: Deep Vein Thrombosis (DVT) or Pulmonary Embolism (PE) CRITICAL VALUE VERIFIED. CALLED TO LSPARR 04/17/24 0350 Ivonne Artis. RESULTS READ BACK BY SAME. Performed By: #### L 501.4020, L300.8000, L100.0100, L500.2500, L501.5200 #### [facility] [address] [facility] [place], [address] Emergency Department Summary on 2024 Emergency Department Summary [facility] Medical Records Department [address] [place] [address] Emergency Department Summary 04/17/24 MR#: [id number] Acct: [id number] Name: LUIS BARAJAS Rep #: [id number] : 2005 19 From: Teodoro Garcia DO [...] persistent pain she comes in for evaluation [facility] Medical History Wears glasses Bipolar disorder [...] to auscul (more content not included)... Normal [facility] L501.4020on 2024 TROPONIN-I HS < 3 Low 3.0-54.0 [facility] Comment on above: Order Comment: 'TROP ' Serial specimen #1, #2 or #3: 1 Result Comment: Antonio castro Note: New Test Units and Gender Specific Reference Ranges. For more information see Policy Stat Procedure [place] High Sensitivity Troponin (TNIH) and attachments. Performed By: #### L 501.4020, L300.8000, L100.0100, L500.2500, L501.5200 #### [facility] [address] [place], [address] Magnesiumon 2024 Magnesium [Mass/Vol] 2.1 mg/dL Normal 1.6-2.[address] [facility] Comment on above: Order Comment: 'TROP ' Serial specimen #1, #2 or #3: 1 Performed By: #### L 501.4020, L300.8000, L100.0100, L500.2500, L501.5200 #### [facility] [address] [place], [address] Urinalysis, Completeon 04-17 EPI,SQUAMOUS 0-5 SEEN Normal 5-10 [facility] Comment on above: Order Comment: CLEAN CATCH Performed By: #### L 400.0001 #### [facility] [address] [place], [address] WBC 0-5 SEEN Normal 0-5 [facility] Comment on above: Order Comment: CLEAN CATCH Performed By: #### L 400.0001 #### [facility] [address] [place], [address] BACTERIA 0 SEEN Normal None Seen [facility] Comment on above: Order Comment: CLEAN CATCH Performed By: #### L 400.0001 #### [facility] [address] [place], [address] Mucus Ql (Urine sed) 0 SEEN Normal [facility] Comment on above: Order Comment: CLEAN CATCH Performed By: #### L 400.0001 #### [facility] [address] [place], [address] RBC 0 SEEN Normal 0-5 [facility] Comment on above: Order Comment: CLEAN CATCH Performed By: #### L 400.0001 #### [facility] [address] [place], [address] Emergency Department Summary on 04-12-2024 Emergency Department Summary [facility] Medical Records Department [address] [place] [address] Emergency Department Summary 04/12/24 MR#: [id number] Acct: [id number] Name: LUIS BARAJAS Rep #: [id number] : 2005 18 From: Javier Isabel DO [...] denies any difficulty breathing or difficulty swallowing. [facility] Medical History Wears glasses Bipolar disorder [...] infected d (more content not included)... Normal [facility] CNOVon 01-26-2024 CNOV Office Visit (UCWSTR) ---- LUIS BARAJAS ([id number]) 5 F Date Time Provider Department 01/26/24 4:30 PM MARTÍNEZ LYLES RUST During your visit today, we recorded the following information about you: Temperature Pulse Respiration Blood pressure 97.9 degrees 80/minute 16/minute 102/60 Weight 60 kg Martínez Lyles APRN.CNP 01/26/2024 4:37 PM Signed This note was created using [employer]wl [employer]. Subjective Luis Barajas is a 18 year [...] Tylenol as needed for pain. Martínez Lyles APRN.PAPER INSERTER Allergies As of Date: 01/26/2024 (No Known Allergies) Date Reviewed: 01/26/2024 Reviewed by: Martínez Lyles APRN.PAPER INSERTER - Fully Assessed Reason for Visit: Ear [...] Status:Closed by MARTÍNEZ LYLES on 01/26/[address] [facility] Bacteria Ur Culton 4 Bacteria identified [...] , Intermediate >32 , Resistant >[address] [facility] Comment on above: Performed By: #### 6 30-4 ####[facility] [id number] [address] [place] CNOVon 12-29-2023 CNOV Office Visit (UCWSTR) ---- LUIS BARAJAS ([id number]) 5 F Date Time Provider Department 12/29/23 [...] Discussed expected course of illness Jasmin Enriquez APRN.PAPER INSERTER [facility] PATIENT INFO BLADDER INFECTION OVERVIEW [...] prescription medicatio (more content not included)... Normal [facility] UA DIP, URINE (POC)on 2023 BILIRUBIN UA (POCT) Negative Negative [facility] CLARITY UA (POCT) Slightly Cloudy Cl [facility] COLOR UA (POCT) Yellow [facility] GLUCOSE UA (POCT) Negative Negative mg/dL [facility] Hemoglobin Ql (U) Large Abnormal Negative [facility] Interpretation and review of laboratory results Abnormal [facility] KETONE UA (POCT) Negative Negative [facility] LEUKOCYTES UA (POCT) Moderate Abnormal Negative [facility] NITRITE UA (POCT) Negative Negative [facility] PH UA (POCT) 7.0 4.5 - 8.0 [facility] Protein Ql (U) 30 mg/dL Abnormal Negative [facility] SPECIFIC GRAVITY UA (POCT) 1.020 1.005 - 1.030 [facility] UROBILINOGEN UA (POCT) 0.2 Normal E.U./d L [facility] Location:[address], [place], [place], [address] [place] [address] POINT OF CARE [facility] - Chemistry and C hemistry - challengeOrdered By: Leny Ruano on 12-24-2023 HCG ( test) Ql (U) Negative [facility] Comment on above: Very dilute urine sp ecimens, as indicated by a low specificgravity, may not contain in store representative levels of hCG. If is still suspected, a first morning urinespecimen should be collected 48 hours later and tested. Absolute lymphocyte countOrd ered By: Alexis Farfan on 11-14-2023 Lymphocytes Auto (Unsp spec) [#/Vol] 2.23 10*3/uL 0.83-4.51 [facility] Automated lymphocyte count a s percentage of total leukocytesOrdered By: Alexis Farfan on 11-14-2023 Lymphocytes/100 WBC Auto (Unsp spec) 27.1 % 25-45 [facility] Basophil percentageOrdered B y: Alexis Farfan on 11-14-2023 Basophils/100 WBC (Bld) 0.7 % 0-1 [facility] Chloride [Moles/Vol] 110 mmol/L 98-[address] [facility] Eosinophils/100 WBC (Bld) 1.7 % 0-3 [facility] Glucose [Mass/Vol] 82 mg/dL 74-106 [facility] Hemoglobin (Bld) [Mass/Vol] 12.3 g/dL 12.0-15.0 [facility] Monocytes/100 WBC (Bld) 5.1 % 3-6 [facility] Neutrophils (Bld) [#/Vol] 5.4 10*3/uL 2.0-7.7 [facility] Neutrophils/100 WBC (Bld) 65.2 % 34-64 [facility] Potassium [Moles/Vol] 3.9 mmol/L 3.5-5.1 [facility] Sodium [Moles/Vol] 140 mmol/L 136-145 [facility] WBC (Bld) [#/Vol] 8.2 10*3/uL 4.5-13.0 [facility] Basophil percentageOrdered B y: Lexie Giovanna on 11-14-2023 Basophil percentage 25-50 SEEN /hpf 0-5 [facility] Bilirubin Test strip Ql (U)O rdered By: Lexie Giovanna on 11-14-2023 Bilirubin Ql (U) Negative Negative [facility] CNOVon 11-14-2023 CNOV Office Visit (UCWSTR) ---- LUIS BARAJAS ([id number]) 5 F Date Time Provider Department 11/14/23 12:[address] [facility] During your visit today, we recorded the following information about you: Temperature Pulse Respiration Blood pressure 97.5 degrees 74/minute 21/minute 120/62 Weight 60.9 kg Loni Escobar APRN.PAPER INSERTER 11/14/2023 12:51 PM Signed Complaints of severe right flank pain. Patient says she has passed 2 hard [place] objects through her urethra. Patient says she [...] Diagnosis:Flank pain [R10.9] Order(s):UA DIP, URINE (POC) [1176068] Order #: [id number]. #:[id number] Prescriptions as of 11/14/2023 - cabergoline (DOSTINEX) [...] Status:Closed by LONI ESCOBAR on 11/14/[address] [facility] Culture, urineOrdered By: Daryl Farfan on 11-14-2023 Bacteria identified Cx Nom (U) Presumptive E. coli [facility] Determination of erythrocyte mean corpuscular volume (MCV)Ordered By: Alexis Farfan on 11-14-2023 MCV (RBC) [Entitic vol] 87.9 fL 78-96 [facility] Erythrocyte distribution wid th ratioOrdered By: Alexissultana Farfan on 11-14-2023 Erythrocyte distribution width (RBC) [Ratio] 12.0 % 11.6-14.6 [facility] Erythrocyte distribution wid th standard deviationOrdered By: Alexissultana Farfan on 11-14-2023 Erythrocyte distribution width (RBC) [Entitic vol] 39.1 fL 35.1-43.9 [facility] Hematocrit Auto (Bld) [Volum e fraction]Ordered By: Alexissultana Farfan on 11-14-2023 Hematocrit (Bld) [Volume fraction] 38.6 % 37-46 [facility] Immature granulocytes/100 WB C Auto (Bld)Ordered By: Alexissultana Farfan on 11-14-2023 Immature granulocytes/100 WBC (Bld) 0.200 % 0.0-0.9 [facility] Comment on above: IG% - Immature Granu locytes (promyelocytes, myelocytes and metamyelocytes) > 1% indicates that a LEFT SHIFT is Present. Ketones Test strip Ql (U)Ord ered By: Lexie Heredia on 11-14-2023 Ketones Ql (U) 5 mg/dl Negative [facility] - Chemistry and C hemistry - challengeOrdered By: Alexissultana Farfan on 11-14-2023 CO2 [Moles/Vol] 26.0 mmol/L 21.0-32.0 [facility] Urea nitrogen/Creatinine [Mass ratio] 15.0 mg/mg 10-20 [facility] - Hematology and Cell countsOrdered By: Alexissultana Farfan on 11-14-2023 MCH (RBC) [Entitic mass] 28.0 pg 25.0-35.0 [facility] MCHC (RBC) [Mass/Vol] 31.9 g/dL 32-36 [facility] Nucleated RBC/100 WBC (Bld) [Ratio] 0 % 0-5 [facility] Platelet mean volume (Bld) [Entitic vol] 9.8 fL 6.2-12.0 [facility] Platelets (Bld) [#/Vol] 298 10*3/uL 150-450 [facility] Mucus LM Ql (Urine sed)Order ed By: Lexie Heredia on 11-14-2023 Mucus Ql (Urine sed) 0 SEEN /hpf [facility] Nitrite Test strip Ql (U)Ord ered By: Lexie Heredia on 11-14-2023 Nitrite Ql (U) Positive Negative [facility] No Panel InformationOrdered By: Alexis Farfan on 11-14-2023 Estimated Creatinine Clearance Calc 102.62 ml/min [facility] Estimated GFR (MDRD) Amer 120 mL/min >60 [facility] Comment on above: GFR Calc Estimated GFR (MDRD) Non-Af Amer 99 mL/min >60 [facility] Comment on above: Non- GFR Calc No Panel InformationOrdered By: Lexie Heredia on 11-14-2023 Urine RBC 0-5 SEEN /hpf 0-5 [facility] Protein Test strip Ql (U)Ord ered By: Lexie Heredia on 11-14-2023 Protein Ql (U) 30 mg/dl Negative [facility] RBC Auto (Bld) [#/Vol]Ordere d By: Alexis Farfan on 11-14-2023 RBC (Bld) [#/Vol] 4.39 10*6/uL 4.1-4.8 [facility] Serum or plasma calcium vel urement (mass/volume)Ordered By: Alexis Farfan on 11-14-2023 Calcium [Mass/Vol] 8.8 mg/dL 8.5-10.1 [facility] Serum or plasma choriogonado tropin detectionOrdered By: Alexis aFrfan on 11-14-2023 HCG ( test) Ql Negative [facility] Serum or plasma creatinine m easurement (mass/volume)Ordered By: Alexis Farfan on 11-14-2023 Creatinine [Mass/Vol] 0.80 mg/dL 0.55-1.02 [facility] Comment on above: The validity of the calculated GFR & GFRAA in patients over 70 years has not been determined. Clinical correlation is essential. Serum or plasma urea nitroge n measurement (mass/volume)Ordered By: Alexis Farfan on 11-14-2023 Urea nitrogen [Mass/Vol] 12 mg/dL 7-18 [facility] Squamous epithelial cells de tection in urine sediment by light microscopyOrdered By: Lexie Heredia on 11-14-2023 Epithelial cells.squamous LM Ql (Urine sed) 0-5 SEEN /hpf 5-10 [facility] Thin prep Papanicolaou smear with manual screeningOrdered By: Alexis Farfan on 11-14-2023 Thin prep Papanicolaou smear with manual screening 4 5-15 [facility] UA DIP, URINE (POC)on 2023 BILIRUBIN UA (POCT) Negative Negative [facility] CLARITY UA (POCT) Slightly Cloudy Cl [facility] COLOR UA (POCT) Yellow [facility] GLUCOSE UA (POCT) Negative Negative mg/dL [facility] Hemoglobin Ql (U) Trace-intact Abnormal Negative [facility] KETONE UA (POCT) Trace Negative mg/dL [facility] LEUKOCYTES UA (POCT) Small Abnormal Negative [facility] NITRITE UA (POCT) Positive Abnormal Negative [facility] PH UA (POCT) 6.0 4.5 - 8.0 [facility] Protein Ql (U) 30 mg/dL Abnormal Negative mg/dL [facility] SPECIFIC GRAVITY UA (POCT) 1.025 1.005 - 1.030 [facility] UROBILINOGEN UA (POCT) 1.0 E.U./dL Normal E.U./ dL [facility] Urine blood detectionOrdered By: Lexie Heredia on 11-14-2023 RBC Ql (U) 25 /ul Negative [facility] Urine clarityOrdered By: Alexa Heredia on 11-14-2023 Clarity (U) Sl. Cloudy Clear [facility] Urine color determinationOrd ered By: Lexie Heredia on 11-14-2023 Color (U) Yellow Yellow [facility] Urine glucose detectionOrder ed By: Lexie Heredia on 11-14-2023 Glucose Ql (U) Normal mg/dl Normal [facility] Urine leukocyte esterase det ection by dipstickOrdered By: Lexie Heredia on 11-14-2023 Leukocyte esterase Test strip Ql (U) 500 /ul Negative [facility] Urine pHOrdered By: Lexie watts on 11-14-2023 pH (U) 6.5 [pH] 5.0 - 8.0 [facility] Urine sediment bacteria coun t by microscopy (number/high power field)Ordered By: Lexie Heredia on 11-14-2023 Bacteria LM.HPF (Urine sed) [#/Area] 2 /[HPF] None Seen [facility] Urine specific gravity measu rementOrdered By: eLxie Quevedomac on 11-14-2023 Specific gravity (U) [Rel density] 1.015 1.002-1.030 [facility] Urine urobilinogen measureme ntOrdered By: Lexiecharlie Heredia on 11-14-2023 Urobilinogen Ql (U) 1 mg/dl Normal [facility] CNPNon 10-31-2023 CNPN Telephone (UCTR) ---- LUIS BARAJAS ([id number]) 5 F Date Time Provider Department 10/31/23 MOE SIMONS RUST During your visit today, we recorded the following information about you: Moe Simons MD 10/31/2023 1:43 PM Signed Vaginal swab was positive for yeast. Diflucan prescribed at the visit should help with this. Urine culture is pending; continue nitrofurantoin. Stefany Olivo MA 10/31/2023 1:58 PM Signed left message with mom to return call. MAURO Romero M Robin, PAM 11/02/2023 2:15 PM Signed Pt returned call [...] Status:Closed by Ariane DAVIS on 11/02/[address] [facility] BACTERIAL VAGINOSIS NAATon 0 10-30-2023 Lactobacillus crispatus+gasseri+jense javier + Gardnerella vaginalis + Atopobium vaginae rRNA JAIRON+probe Ql (Vag fld) Negative Normal Negative for bacterial vaginosis [facility] Comment on above: Order Comment: Speci men Type: SWABOrdering Facility: [facility] Address: [address] [place] [address] Performed By: #### Narda CABRERA CVTV ####[facility] [id number] [place] [address] [place] Bacteria Ur Culton [...] , Intermediate >32 , Resistant >[address] [facility] Comment on above: Performed By: #### 6 30-4 ####[facility] [id number] [place] [id number] [place] PRINCE/TRICHOMONAS NAATon 0 10-30-2023 C. glabrata RNA JAIRON+probe Ql (Vag fld) Negative Normal Negative for Prince glabrata [facility] Comment on above: Order Comment: Speci men Type: SWABOrdering Facility: [facility] Address: [address] [place] [address] Performed By: #### B VAMP, CVTV ####[facility] [id number] [place] [address] [place] Prince sp DNA JAIRON+probe Ql (Vag fld) Positive Abnormal Negative for Prince species [facility] Comment on above: Order Comment: Speci men Type: SWABOrdering Facility: [facility] Address: [address] [place] [address] Performed By: #### B VAMP, CVTV ####[facility] [id number] [place] [address] [place] T. vaginalis DNA JAIRON+probe Ql (Unsp spec) Negative Normal Negative for Trichomonas vaginalis by amplification [facility] Comment on above: Order Comment: Speci men Type: SWABOrdering Facility: [facility] Address: [address] [place] [address] Performed By: #### B VAMP, CVTV ####[facility] [id number] [place] [address] [place] CNOVon 10-30-2023 CNOV Office Visit (UCWSTR) ---- LUIS BARAJAS ([id number]) 5 F Date Time Provider Department 10/30/23 4:15 PM LILLIAN SANCHEZ RUST During your visit today, we recorded the following information about you: Temperature Pulse Respiration Blood pressure 97.8 degrees 102/minute 18/minute 114/74 Weight Last Period 58.8 kg 10/19/23 Lillian Sanchez, [employer] MAKER.PAPER INSERTER 10/30/2023 4:18 PM Signed This note was created using [employer]wl [employer]. Subjective Luis Barajas is a 18 year [...] history is provided by the patient. No overhead worker was used. UTI This is a new [...] No friction (more content not included)... Normal [facility] UA DIP, URINE (POC)on 2023 BILIRUBIN UA (POCT) Negative Negative [facility] CLARITY UA (POCT) Clear [facility] COLOR UA (POCT) Dark yellow [facility] GLUCOSE UA (POCT) Negative Negative mg/dL [facility] Hemoglobin Ql (U) Moderate Abnormal Negative [facility] KETONE UA (POCT) Negative Negative mg/dL [facility] LEUKOCYTES UA (POCT) Trace Abnormal Negative [facility] NITRITE UA (POCT) Negative Negative [facility] PH UA (POCT) 5.5 4.5 - 8.0 [facility] Protein Ql (U) 100 mg/dL Abnormal Negative mg/dL [facility] SPECIFIC GRAVITY UA (POCT) >=1.030 1.005 - 1.030 [facility] UROBILINOGEN UA (POCT) 0.2 E.U./dL Normal E.U./ dL [facility] UA DIP, URINE (POC)on 2022 BILIRUBIN UA (POCT) Negative Negative [facility] CLARITY UA (POCT) Clear [facility] COLOR UA (POCT) Yellow [facility] GLUCOSE UA (POCT) Negative Negative mg/dL [facility] Hemoglobin Ql (U) Negative Negative [facility] KETONE UA (POCT) Negative Negative mg/dL [facility] LEUKOCYTES UA (POCT) Trace Abnormal Negative [facility] NITRITE UA (POCT) Negative Negative [facility] PH UA (POCT) 6.5 4.5 - 8.0 [facility] Protein Ql (U) Negative Negative mg/dL [facility] SPECIFIC GRAVITY UA (POCT) 1.010 1.005 - 1.030 [facility] UROBILINOGEN UA (POCT) 1.0 E.U./dL Normal E.U./ dL [facility] Absolute lymphocyte countOrd ered By: ED PROVIDER on 07-04-2023 Lymphocytes Auto (Unsp spec) [#/Vol] 2.21 10*3/uL 0.83-4.51 [facility] Basophil percentageOrdered B y: ED PROVIDER on 07-04-2023 Basophils/100 WBC (Bld) 0.7 % 0-1 [facility] Eosinophils/100 WBC (Bld) 2.6 % 0-3 [facility] Neutrophils (Bld) [#/Vol] 4.0 10*3/uL 2.0-7.7 [facility] Neutrophils/100 WBC (Bld) 57.1 % 34-64 [facility] WBC (Bld) [#/Vol] 7.0 10*3/uL 4.5-13.0 [facility] Basophil percentageOrdered B y: Flor Seymour on 07-04-2023 Chloride [Moles/Vol] 108 mmol/L 98-[address] [facility] Glucose [Mass/Vol] 79 mg/dL 74-106 [facility] Potassium [Moles/Vol] 4.3 mmol/L 3.5-5.1 [facility] Sodium [Moles/Vol] 139 mmol/L 136-145 [facility] Basophil percentage 0-5 SEEN /hpf 0-5 [facility] Beta hCG serum qualOrdered B y: Flor Seymour on 07-04-2023 Beta HCG ( test) Ql Negative [facility] Bilirubin Test strip Ql (U)O rdered By: Flor Seymour on 07-04-2023 Bilirubin Ql (U) Negative Negative [facility] Blood erythrocytes count (nu mber/volume)Ordered By: ED PROVIDER on 07-04-2023 RBC (Bld) [#/Vol] 4.54 10*6/uL 4.1-4.8 [facility] Blood hemoglobin measurement (mass/volume)Ordered By: ED PROVIDER on 07-04-2023 Hemoglobin (Bld) [Mass/Vol] 12.9 g/dL 12.0-15.0 [facility] Blood lymphocytes/100 leukoc ytesOrdered By: ED PROVIDER on 07-04-2023 Lymphocytes/100 WBC (Bld) 31.8 % 25-45 [facility] Blood monocytes/100 leukocyt esOrdered By: ED PROVIDER on 07-04-2023 Monocytes/100 WBC (Bld) 7.5 % 3-6 [facility] Blood platelet mean volumeOr dered By: ED PROVIDER on 07-04-2023 Platelet mean volume (Bld) [Entitic vol] 9.8 fL 6.2-12.0 [facility] Determination of erythrocyte mean corpuscular volume (MCV)Ordered By: ED PROVIDER on 07-04-2023 MCV (RBC) [Entitic vol] 89.0 fL 78-96 [facility] Hematocrit Auto (Bld) [Volum e fraction]Ordered By: ED PROVIDER on 07-04-2023 Hematocrit (Bld) [Volume fraction] 40.4 % 37-46 [facility] Ketones Test strip Ql (U)Ord ered By: Flor Seymour on 07-04-2023 Ketones Ql (U) 5 mg/dl Negative [facility] - Chemistry and C hemistry - challengeOrdered By: Flor Seymour on 07-04-2023 CO2 [Moles/Vol] 29.0 mmol/L 21.0-32.0 [facility] Urea nitrogen/Creatinine [Mass ratio] 13.9 mg/mg 10-20 [facility] - Hematology and Cell countsOrdered By: ED PROVIDER on 07-04-2023 Erythrocyte distribution width (RBC) [Entitic vol] 39.5 fL 35.1-43.9 [facility] [facility] Erythrocyte distribution width (RBC) [Ratio] 12.0 % 11.6-14.6 [facility] Immature granulocytes/100 WBC (Bld) 0.300 % 0.0-0.9 [facility] Comment on above: IG% - Immature Granu locytes (promyelocytes, myelocytes and metamyelocytes) > 1% indicates that a LEFT SHIFT is Present. MCH (RBC) [Entitic mass] 28.4 pg 25.0-35.0 [facility] Nucleated RBC/100 WBC (Bld) [Ratio] 0 % 0-5 [facility] MCHC Auto (RBC) [Mass/Vol]Or dered By: ED PROVIDER on 07-04-2023 MCHC (RBC) [Mass/Vol] 31.9 g/dL 32-36 [facility] Mucus LM Ql (Urine sed)Order ed By: Flor Seymour on 07-04-2023 Mucus Ql (Urine sed) 0 SEEN /hpf [facility] Nitrite Test strip Ql (U)Ord ered By: Flor Semyour on 07-04-2023 Nitrite Ql (U) Negative Negative [facility] No Panel InformationOrdered By: Flor Seymour on 07-04-2023 Estimated Creatinine Clearance Calc 83.81 ml/min [facility] Estimated GFR (MDRD) Amer 100 mL/min >60 [facility] Comment on above: GFR Calc Estimated GFR (MDRD) Non-Af Amer 83 mL/min >60 [facility] Comment on above: Non- GFR Calc Platelets bldOrdered By: ED PROVIDER on 07-04-2023 Platelets (Bld) [#/Vol] 315 10*3/uL 150-450 [facility] Protein Test strip Ql (U)Ord ered By: Flor Seymour on 07-04-2023 Protein Ql (U) 30 mg/dl Negative [facility] Serum or plasma calcium vel urement (mass/volume)Ordered By: Flor Seymour on 07-04-2023 Calcium [Mass/Vol] 9.2 mg/dL 8.5-10.1 [facility] Serum or plasma creatinine m easurement (mass/volume)Ordered By: Flor Seymour on 07-04-2023 Creatinine [Mass/Vol] 0.94 mg/dL 0.55-1.02 [facility] Comment on above: The validity of the calculated GFR & GFRAA in patients over 70 years has not been determined. Clinical correlation is essential. Serum or plasma urea nitroge n measurement (mass/volume)Ordered By: Flor Seymour on 07-04-2023 Urea nitrogen [Mass/Vol] 13 mg/dL 7-18 [facility] Squamous epithelial cells de tection in urine sediment by light microscopyOrdered By: Flor Seymour on 07-04-2023 Epithelial cells.squamous LM Ql (Urine sed) 0-5 SEEN /hpf 5-10 [facility] Thin prep Papanicolaou smear with manual screeningOrdered By: Flor Seymour on 07-04-2023 Thin prep Papanicolaou smear with manual screening 2 5-15 [facility] Urine blood detectionOrdered By: Flor Seymour on 07-04-2023 RBC Ql (U) 250 /ul Negative [facility] RBC Ql (U) 10-25 SEEN /hpf 0-5 [facility] Urine clarityOrdered By: Nataliia Seymour on 07-04-2023 Clarity (U) Clear Clear [facility] Urine color determinationOrd ered By: Flor Seymour on 07-04-2023 Color (U) Yellow Yellow [facility] Urine glucose detectionOrder ed By: Flor Seymour on 07-04-2023 Glucose Ql (U) Normal mg/dl Normal [facility] Urine leukocyte esterase det ection by dipstickOrdered By: Flor Seymour on 07-04-2023 Leukocyte esterase Test strip Ql (U) 100 /ul Negative [facility] Urine pHOrdered By: Flor Seymour on 07-04-2023 pH (U) 6.0 [pH] 5.0 - 8.0 [facility] Urine sediment bacteria coun t by microscopy (number/high power field)Ordered By: Flor Seymour on 07-04-2023 Bacteria LM.HPF (Urine sed) [#/Area] 0 /[HPF] None Seen [facility] Urine specific gravity measu rementOrdered By: Flor Seymour on 07-04-2023 Specific gravity (U) [Rel density] 1.015 1.002-1.030 [facility] Urobilinogen Auto test strip Ql (U)Ordered By: Flor Seymour on 07-04-2023 Urobilinogen Ql (U) 1 mg/dl Normal [facility] Culture, urineOrdered By: Payal Clements on 03-27-2023 Bacteria identified Cx Nom (U) Presumptive E. coli [facility] Basophil percentageOrdered B y: Summer Tyree on 03-19-2023 Bilirubin [Mass/Vol] 0.60 mg/dL 0.20-1.[address] [facility] Comment on above: For patients on eltr ombopag therapy, use of Dimension [place] TBIL is not recommended. Chloride [Moles/Vol] 106 mmol/L 98-[address] [facility] Glucose [Mass/Vol] 88 mg/dL 74-106 [facility] Potassium [Moles/Vol] 3.7 mmol/L 3.5-5.1 [facility] Protein [Mass/Vol] 8.4 g/dL 6.4-8.2 [facility] Sodium [Moles/Vol] 139 mmol/L 136-145 [facility] WBC (Bld) [#/Vol] 7.3 10*3/uL 4.5-13.0 [facility] Blood erythrocytes count (nu mber/volume)Ordered By: Mara Clements on 03-19-2023 RBC (Bld) [#/Vol] 5.02 10*6/uL 4.1-4.8 [facility] Blood hemoglobin measurement (mass/volume)Ordered By: Mara Clements on 03-19-2023 Hemoglobin (Bld) [Mass/Vol] 14.5 g/dL 12.0-15.0 [facility] Blood platelet mean volumeOr dered By: Mara Clements on 03-19-2023 Platelet mean volume (Bld) [Entitic vol] 9.9 fL 6.2-12.0 [facility] Determination of erythrocyte mean corpuscular volume (MCV)Ordered By: Mara Clements on 03-19-2023 MCV (RBC) [Entitic vol] 85.5 fL 78-96 [facility] Hematocrit Auto (Bld) [Volum e fraction]Ordered By: Kaiser Haywardon on 03-19-2023 Hematocrit (Bld) [Volume fraction] 42.9 % 37-46 [facility] Laboratory - Chemistry and C hemistry - challengeOrdered By: Kaiser Haywardon 03-19-2023 ALP [Catalytic activity/Vol] 61 U/L 47-119 [facility] ALT [Catalytic activity/Vol] 13 U/L 13-56 [facility] CO2 [Moles/Vol] 22.0 mmol/L 21.0-32.0 [facility] Free T4 [Mass/Vol] 1.47 ng/dL 0.76-1.46 [facility] Globulin (S) [Mass/Vol] 4.4 g/dL 2.2-4.2 [facility] Urea nitrogen/Creatinine [Mass ratio] 14.2 mg/mg 10-20 [facility] Laboratory - Hematology and Cell countsOrdered By: Kaiser Haywardon on 03-19-2023 Erythrocyte distribution width (RBC) [Entitic vol] 37.2 fL 35.1-43.9 [facility] Erythrocyte distribution width (RBC) [Ratio] 12.0 % 11.6-14.6 [facility] MCH (RBC) [Entitic mass] 28.9 pg 25.0-35.0 [facility] MCHC Auto (RBC) [Mass/Vol]Or dered By: Mara Clements on 03-19-2023 MCHC (RBC) [Mass/Vol] 33.8 g/dL 32-36 [facility] No Panel InformationOrdered By: Mara Clements on 03-19-2023 Thyroid Stimulating Hormone (TSH) 0.45 uIU/mL 0.358-3.74 [facility] Glucose 2 Hour See comment [facility] Comment on above: FASTING 90 Col: 02/22 03/15 0701 30 min GLU 190 H Col: 03/19/23 0740 60 min GLU 137 Col: 03/19/23 0810 120min GLU 72 Col: 03/19/23 0909 Androstenedione 197 ng/dL 41-262 [facility] Comment on above: Performed at: [facility] [address] [id number] Director: Ritesh Ly MD, Phone: [phone] Estimated GFR (MDRD) [facility] Comment on above: Test not performedAf rican Monegasque GFR Calc Estimated GFR (MDRD) [facility] Comment on above: Test not performedNo n- GFR Calc Follicle Stimulating Hormone 5.4 mIU/mL [facility] Comment on above: NORMAL REFERENCE RAN GES FEMALE FOLLICULAR 2.3 - 12.6 mIU/mL MID-CYCLE PEAK 5.2 - 17.5 mIU/mL LUTEAL 1.7 - 12.9 mIU/mL POST-MENOPAUSAL ON MHT 5.9 - 72.8 mIU/mL NOT ON MHT 12.7 - 132.2 mlU/mL MALE 0.7 - 10.8 mIU/mL Free Triiodothyronine (T3) pg/dL 2.9 pg/mL 2.18-3.98 [facility] Luteinizing Hormone 9.2 mIU/mL [facility] Comment on above: NORMAL REFERENCE RAN GES FEMALE FOLLICULAR 1.9 - 26.2 mIU/mL MID-CYCLE PEAK 22.8 - 76.1 mIU/mL LUTEAL 0.6 - 16.6 mIU/mL POST-MENOPAUSAL ON MHT 1.1 - 52.4 mIU/mL NOT ON MHT 8.6 - 61.8 mIU/mL MALE 1.2 - 10.6 mIU/mL Total Triiodothyronine 1.48 ng/mL 0.6-1.81 [facility] Vitamin D 25-Hydroxy 15.6 ng/mL [facility] Comment on above: Vitamin D 25(OH) Sta tus Range Deficiency <20 ng/mL (50nmol/L) Insufficiency 20 - 30 ng/mL (50 - 75 nmol/L) Sufficiency 30 - 100 ng/mL (75 - 250 nmol/L) Toxicity >100 ng/mL (>250 nmol/L) Platelets bldOrdered By: Jono Clements on 03-19-2023 Platelets (Bld) [#/Vol] 384 10*3/uL 150-450 [facility] Serum or plasma 17-hydroxypr ogesterone measurement (mass/volume)Ordered By: Mara Clements on 03-19-2023 17-Hydroxyprogesterone [Mass/Vol] 71 ng/dL . [facility] Comment on above: Arnaud Stage Female 1 0 - 82 2 11 - 98 3 11 - 155 4 18 - 230 5 20 - 265Performed at: [facility] [id number] Director: Ritesh Ly MD, Phone: [phone] Serum or plasma albumin evl urement (mass/volume)Ordered By: Mara Clements on 03-19-2023 Albumin [Mass/Vol] 4.0 g/dL 3.2-5.0 [facility] Serum or plasma albumin/glob ulin mass ratioOrdered By: Mara Clements on 03-19-2023 Albumin/Globulin [Mass ratio] 0.9 {ratio} 0.9-2.4 [facility] Serum or plasma calcium vel urement (mass/volume)Ordered By: Mara Clements on 03-19-2023 Calcium [Mass/Vol] 9.5 mg/dL 8.5-10.1 [facility] Serum or plasma cortisol castro surement (mass/volume)Ordered By: Mara Clements on 03-19-2023 Cortisol [Mass/Vol] 27.10 ug/dL 3.44-22.[address] [facility] Comment on above: Adult (AM) 5.27 - 22 .45 ug/dL Adult (PM) 3.44 - 16.76 ug/dLPlease note revised CORTISOL reference range effective 2019. Serum or plasma creatinine m easurement (mass/volume)Ordered By: Mara Clements on 03-19-2023 Creatinine [Mass/Vol] 0.98 mg/dL 0.55-1.02 [facility] Comment on above: The validity of the calculated GFR & GFRAA in patients over 70 years has not been determined. Clinical correlation is essential. Serum or plasma estradiol (E 2) measurement (mass/volume)Ordered By: Mara Clements on 03-19-2023 E2 [Mass/Vol] 78.0 pg/mL [facility] Comment on above: NORMAL REFERENCE RAN [...] 75 g glucose PO Qn See comment [facility] Comment on above: FASTING 7.3 Col: 0701 30 min INS 96.4 Col: 03/19/23 0740 60 min INS 111.7 Col: 03/19/23 0810 120min INS 19.3 Col: 03/19/23 0909 Serum or plasma prolactin me asurement (mass/volume)Ordered By: Mara Clements on 03-19-2023 Prolactin [Mass/Vol] 15.6 ng/mL [facility] Comment on above: NORMAL REFERENCE RAN GES FEMALE NON- 2.2 - 30.3 ng/mL 8.1 - 347.6 ng/mL POST-MENOPAUSAL 0.7 - 31.5 ng/mL MALE 2.5 - 17.4 ng/mL Serum or plasma urea nitroge n measurement (mass/volume)Ordered By: Mara Clements on 03-19-2023 Urea nitrogen [Mass/Vol] 14 mg/dL 7-18 [facility] Thin prep Papanicolaou smear with manual screeningOrdered By: Mara Clements on 03-19-2023 Thin prep Papanicolaou smear with manual screening 17 U/L 15-37 [facility] Thin prep Papanicolaou smear with manual screening 11 5-15 [facility] Absolute lymphocyte countOrd ered By: Dr. Seymour on 02-04-2023 Lymphocytes Auto (Unsp spec) [#/Vol] 0.69 10*3/uL 0.83-4.51 [facility] Basophil percentageOrdered B y: Dr. Seymour on 02-04-2023 Basophil percentage 5-10 SEEN /hpf 0-5 [facility] Basophils/100 WBC (Bld) 0.3 % 0-1 [facility] Chloride [Moles/Vol] 104 mmol/L 98-[address] [facility] Eosinophils/100 WBC (Bld) 0.2 % 0-3 [facility] Glucose [Mass/Vol] 103 mg/dL 74-106 [facility] Comment on above: Fasting Glucose resu lt from 100 to 125 mg/dL suggests IMPAIRED HOMEOSTASIS per A.D.A. criteria. Neutrophils (Bld) [#/Vol] 16.4 10*3/uL 2.0-7.7 [facility] Neutrophils/100 WBC (Bld) 91.2 % 34-64 [facility] Potassium [Moles/Vol] 3.1 mmol/L 3.5-5.1 [facility] Sodium [Moles/Vol] 134 mmol/L 136-145 [facility] WBC (Bld) [#/Vol] 17.9 10*3/uL 4.5-13.0 [facility] Bilirubin Test strip Ql (U)O rdered By: Dr. Seymour on 02-04-2023 Bilirubin Ql (U) 1 mg/dL Negative [facility] Comment on above: COLOR OF URINE MAY A FFECT DIPSTICK RESULTS. Blood erythrocytes count (nu mber/volume)Ordered By: Dr. Seymour on 02-04-2023 RBC (Bld) [#/Vol] 4.59 10*6/uL 4.1-4.8 [facility] Blood hemoglobin measurement (mass/volume)Ordered By: Dr. Seymour on 02-04-2023 Hemoglobin (Bld) [Mass/Vol] 13.4 g/dL 12.0-15.0 [facility] Blood lymphocytes/100 leukoc ytesOrdered By: Dr. Seymour on 02-04-2023 Lymphocytes/100 WBC (Bld) 3.8 % 25-45 [facility] Blood monocytes/100 leukocyt esOrdered By: Dr. Seymour on 02-04-2023 Monocytes/100 WBC (Bld) 3.7 % 3-6 [facility] Blood platelet mean volumeOr dered By: Dr. Seymour on 02-04-2023 Platelet mean volume (Bld) [Entitic vol] 10.5 fL 6.2-12.0 [facility] Determination of erythrocyte mean corpuscular volume (MCV)Ordered By: Dr. Seymour on 02-04-2023 MCV (RBC) [Entitic vol] 84.1 fL 78-96 [facility] Hematocrit Auto (Bld) [Volum e fraction]Ordered By: Dr. Seymour on 02-04-2023 Hematocrit (Bld) [Volume fraction] 38.6 % 37-46 [facility] Influenza virus A and B and SARS-CoV-2 (COVID-19) Ag panel - Upper respiratory specimOrdered By: Flor Seymour on 02-04-2023 SARS-CoV-2 (COVID-19) RNA JAIRON+probe Ql (Resp) [facility] Influenza virus A and B and SARS-CoV-2 (COVID-19) Ag panel - Upper respiratory specimOrdered By: Dr. Seymour on 02-04-2023 SARS-CoV-2 (COVID-19) RNA JAIRON+probe Ql (Resp) [facility] Ketones Test strip Ql (U)Ord ered By: Dr. Seymour on 02-04-2023 Ketones Ql (U) 150 mg/dl Negative [facility] Comment on above: CRITICAL VALUE *HCRI TICAL VALUE VERIFIED. CALLED TO SHIVAM BOWLING02/04/23 4336 Khalif Lemus.RESULTS READ BACK BY SAME . Laboratory - Chemistry and C hemistry - challengeOrdered By: Dr. Seymour on 02-04-2023 CO2 [Moles/Vol] 21.0 mmol/L 21.0-32.0 [facility] Urea nitrogen/Creatinine [Mass ratio] 8.7 mg/mg 10-20 [facility] Laboratory - Hematology and Cell countsOrdered By: Dr. Seymour on 02-04-2023 Erythrocyte distribution width (RBC) [Entitic vol] 35.8 fL 35.1-43.9 [facility] Erythrocyte distribution width (RBC) [Ratio] 11.8 % 11.6-14.6 [facility] Immature granulocytes/100 WBC (Bld) 0.800 % 0.0-0.9 [facility] Comment on above: IG% - Immature Granu locytes (promyelocytes, myelocytes and metamyelocytes) > 1% indicates that a LEFT SHIFT is Present. MCH (RBC) [Entitic mass] 29.2 pg 25.0-35.0 [facility] Nucleated RBC/100 WBC (Bld) [Ratio] 0 % 0-5 [facility] MCHC Auto (RBC) [Mass/Vol]Or dered By: Dr. Seymour on 02-04-2023 MCHC (RBC) [Mass/Vol] 34.7 g/dL 32-36 [facility] Mucus LM Ql (Urine sed)Order ed By: Dr. Seymour on 02-04-2023 Mucus Ql (Urine sed) 0 SEEN /hpf [facility] Nitrite Test strip Ql (U)Ord ered By: Dr. Seymour on 02-04-2023 Nitrite Ql (U) Negative Negative [facility] No Panel InformationOrdered By: Dr. Seymour on 02-04-2023 Estimated Creatinine Clearance Calc 82.80 ml/min [facility] Estimated GFR (MDRD) [facility] Comment on above: Test not performedAf rican Monegasque GFR Calc Estimated GFR (MDRD) Non-Af [facility] Comment on above: Test not performedNo n- GFR Calc Platelets bldOrdered By: Dr. Seymour on 02-04-2023 Platelets (Bld) [#/Vol] 258 10*3/uL 150-450 [facility] Protein Test strip Ql (U)Ord ered By: Dr. Seymour on 02-04-2023 Protein Ql (U) 100 mg/dl Negative [facility] S. pyogenes Ag IF Ql (Throat )Ordered By: Flor Seymour on 02-04-2023 S. pyogenes Ag IA Ql (Unsp spec) Streptococcus Group A [facility] S. pyogenes Ag IF Ql (Throat )Ordered By: Dr. Seymour on 02-04-2023 S. pyogenes Ag IA Ql (Unsp spec) Streptococcus Group A [facility] Serum or plasma calcium vel urement (mass/volume)Ordered By: Dr. Seymour on 02-04-2023 Calcium [Mass/Vol] 9.2 mg/dL 8.5-10.1 [facility] Serum or plasma creatinine m easurement (mass/volume)Ordered By: Dr. Seymour on 02-04-2023 Creatinine [Mass/Vol] 1.04 mg/dL 0.55-1.02 [facility] Comment on above: The validity of the calculated GFR & GFRAA in patients over 70 years has not been determined. Clinical correlation is essential. Serum or plasma urea nitroge n measurement (mass/volume)Ordered By: Dr. Seymour on 02-04-2023 Urea nitrogen [Mass/Vol] 9 mg/dL 7-18 [facility] Squamous epithelial cells de tection in urine sediment by light microscopyOrdered By: Dr. Seymour on 02-04-2023 Epithelial cells.squamous LM Ql (Urine sed) 0-5 SEEN /hpf 5-10 [facility] Thin prep Papanicolaou smear with manual screeningOrdered By: Dr. Seymour on 02-04-2023 Thin prep Papanicolaou smear with manual screening 9 5-15 [facility] Urine blood detectionOrdered By: Dr. Seymour on 02-04-2023 RBC Ql (U) Negative Negative [facility] RBC Ql (U) 0 SEEN /hpf 0-5 [facility] Urine clarityOrdered By: Dr. Seymour on 02-04-2023 Clarity (U) Clear Clear [facility] Urine color determinationOrd ered By: Dr. Seymour on 02-04-2023 Color (U) Yellow Yellow [facility] Urine glucose detectionOrder ed By: Dr. Seymour on 02-04-2023 Glucose Ql (U) Normal mg/dl Normal [facility] Urine leukocyte esterase det ection by dipstickOrdered By: Dr. Seymour on 02-04-2023 Leukocyte esterase Test strip Ql (U) 25 /ul Negative [facility] Urine pHOrdered By: Dr. Lesli khanna on 02-04-2023 pH (U) 6.5 [pH] 5.0 - 8.0 [facility] Urine sediment bacteria coun t by microscopy (number/high power field)Ordered By: Dr. Seymour on 02-04-2023 Bacteria LM.HPF (Urine sed) [#/Area] 1 /[HPF] None Seen [facility] Urine specific gravity measu rementOrdered By: Dr. Seymour on 02-04-2023 Specific gravity (U) [Rel density] 1.015 1.002-1.030 [facility] Urobilinogen Auto test strip Ql (U)Ordered By: Dr. Seymour on 02-04-2023 Urobilinogen Ql (U) 12 mg/dl Normal [facility] Throat specimen bacteria radha ntification by cultureOrdered By: Dr. Wolfe on 12-03-2022 Bacteria identified Cx Nom (Throat) streptococcus isolated. [facility] Culture, urineOrdered By: Dr Praveena De La Torre on 12-01-2022 Bacteria identified Cx Nom (U) Presumptive E. coli [facility] Throat specimen bacteria radha ntification by cultureOrdered By: J Luis Wolfe on 12-01-2022 Bacteria identified Cx Nom (Throat) streptococcus isolated. [facility] Absolute lymphocyte countOrd ered By: Dr. De La Torre on 11-28-2022 Lymphocytes Auto (Unsp spec) [#/Vol] 2.71 10*3/uL 0.83-4.51 [facility] Basophil percentageOrdered B y: Dr. De La Torre on 11-28-2022 Basophil percentage 25-50 SEEN /hpf 0-5 [facility] Basophils/100 WBC (Bld) 0.5 % 0-1 [facility] Chloride [Moles/Vol] 108 mmol/L 98-[address] [facility] Eosinophils/100 WBC (Bld) 1.5 % 0-3 [facility] Glucose [Mass/Vol] 75 mg/dL 74-106 [facility] Neutrophils (Bld) [#/Vol] 5.8 10*3/uL 2.0-7.7 [facility] Neutrophils/100 WBC (Bld) 62.9 % 34-64 [facility] Potassium [Moles/Vol] 3.5 mmol/L 3.5-5.1 [facility] Sodium [Moles/Vol] 141 mmol/L 136-145 [facility] WBC (Bld) [#/Vol] 9.3 10*3/uL 4.5-13.0 [facility] Bilirubin Test strip Ql (U)O rdered By: Dr. De La Torre on 11-28-2022 Bilirubin Ql (U) Negative Negative [facility] Blood erythrocytes count (nu mber/volume)Ordered By: Dr. De La Torre on 11-28-2022 RBC (Bld) [#/Vol] 4.53 10*6/uL 4.1-4.8 [facility] Blood hemoglobin measurement (mass/volume)Ordered By: Dr. De La Torre on 11-28-2022 Hemoglobin (Bld) [Mass/Vol] 12.8 g/dL 12.0-15.0 [facility] Blood lymphocytes/100 leukoc ytesOrdered By: Dr. De La Torre on 11-28-2022 Lymphocytes/100 WBC (Bld) 29.3 % 25-45 [facility] Blood monocytes/100 leukocyt esOrdered By: Dr. De La Torre on 11-28-2022 Monocytes/100 WBC (Bld) 5.6 % 3-6 [facility] Blood platelet mean volumeOr dered By: Dr. De La Torre on 11-28-2022 Platelet mean volume (Bld) [Entitic vol] 9.8 fL 6.2-12.0 [facility] Culture, urineOrdered By: John De La Torre on 11-28-2022 Bacteria identified Cx Nom (U) Presumptive E. coli [facility] Determination of erythrocyte mean corpuscular volume (MCV)Ordered By: Dr. De La Torre on 11-28-2022 MCV (RBC) [Entitic vol] 86.1 fL 78-96 [facility] Hematocrit Auto (Bld) [Volum e fraction]Ordered By: Dr. De La Torre on 11-28-2022 Hematocrit (Bld) [Volume fraction] 39.0 % 37-46 [facility] Ketones Test strip Ql (U)Ord ered By: Dr. De La Torre on 11-28-2022 Ketones Ql (U) 5 mg/dl Negative [facility] Laboratory - Chemistry and C hemistry - challengeOrdered By: Dr. De La Torre on 11-28-2022 CO2 [Moles/Vol] 26.0 mmol/L 21.0-32.0 [facility] Urea nitrogen/Creatinine [Mass ratio] 12.1 mg/mg 10-20 [facility] Laboratory - Hematology and Cell countsOrdered By: Dr. De La Torre on 11-28-2022 Erythrocyte distribution width (RBC) [Entitic vol] 36.8 fL 35.1-43.9 [facility] Erythrocyte distribution width (RBC) [Ratio] 11.7 % 11.6-14.6 [facility] Immature granulocytes/100 WBC (Bld) 0.200 % 0.0-0.9 [facility] Comment on above: IG% - Immature Granu locytes (promyelocytes, myelocytes and metamyelocytes) > 1% indicates that a LEFT SHIFT is Present. MCH (RBC) [Entitic mass] 28.3 pg 25.0-35.0 [facility] Nucleated RBC/100 WBC (Bld) [Ratio] 0 % 0-5 [facility] MCHC Auto (RBC) [Mass/Vol]Or dered By: Dr. De La Torre on 11-28-2022 MCHC (RBC) [Mass/Vol] 32.8 g/dL 32-36 [facility] Mucus LM Ql (Urine sed)Order ed By: Dr. De La Torre on 11-28-2022 Mucus Ql (Urine sed) RARE /hpf [facility] Nitrite Test strip Ql (U)Ord ered By: Dr. De La Torre on 11-28-2022 Nitrite Ql (U) Negative Negative [facility] No Panel InformationOrdered By: Dr. De La Torre on 11-28-2022 Estimated Creatinine Clearance Calc 96.86 ml/min [facility] Estimated GFR (MDRD) Amer [facility] Comment on above: Test not performedAf rican Monegasque GFR Calc Estimated GFR (MDRD) Non-Af [facility] Comment on above: Test not performedNo n- GFR Calc Platelets bldOrdered By: Dr. De La Torre on 11-28-2022 Platelets (Bld) [#/Vol] 347 10*3/uL 150-450 [facility] Protein Test strip Ql (U)Ord ered By: Dr. De La Torre on 11-28-2022 Protein Ql (U) Negative Negative [facility] Serum or plasma calcium vel urement (mass/volume)Ordered By: Dr. De La Torre on 11-28-2022 Calcium [Mass/Vol] 9.3 mg/dL 8.5-10.1 [facility] Serum or plasma creatinine m easurement (mass/volume)Ordered By: Dr. De La Torre on 11-28-2022 Creatinine [Mass/Vol] 0.82 mg/dL 0.55-1.02 [facility] Comment on above: The validity of the calculated GFR & GFRAA in patients over 70 years has not been determined. Clinical correlation is essential. Serum or plasma urea nitroge n measurement (mass/volume)Ordered By: Dr. De La Torre on 11-28-2022 Urea nitrogen [Mass/Vol] 10 mg/dL 7-18 [facility] Squamous epithelial cells de tection in urine sediment by light microscopyOrdered By: Dr. De La Torre on 11-28-2022 Epithelial cells.squamous LM Ql (Urine sed) 0-5 SEEN /hpf 5-10 [facility] Thin prep Papanicolaou smear with manual screeningOrdered By: Dr. De La Torre on 11-28-2022 Thin prep Papanicolaou smear with manual screening 7 5-15 [facility] Urine blood detectionOrdered By: Dr. De La Torre on 11-28-2022 RBC Ql (U) 25 /ul Negative [facility] RBC Ql (U) 0-5 SEEN /hpf 0-5 [facility] Urine clarityOrdered By: Dr. De La Torre on 11-28-2022 Clarity (U) Sl. Cloudy Clear [facility] Urine color determinationOrd ered By: Dr. De La Torre on 11-28-2022 Color (U) Yellow Yellow [facility] [facility] U[facility] glucose detectionOrder ed By: Dr. De La Torre on 11-28-2022 Glucose Ql (U) Normal mg/dl Normal [facility] Urine leukocyte esterase det ection by dipstickOrdered By: Dr. De La Torre on 11-28-2022 Leukocyte esterase Test strip Ql (U) 500 /ul Negative [facility] Urine pHOrdered By: Dr. Azeem cristobal on 11-28-2022 pH (U) 8.0 [pH] 5.0 - 8.0 [facility] Urine sediment bacteria coun t by microscopy (number/high power field)Ordered By: Dr. De La Torre on 11-28-2022 Bacteria LM.HPF (Urine sed) [#/Area] RARE /hpf None Seen [facility] Urine specific gravity measu rementOrdered By: Dr. De La Torre on 11-28-2022 Specific gravity (U) [Rel density] 1.015 1.002-1.030 [facility] Urobilinogen Auto test strip Ql (U)Ordered By: Dr. De La Torre on 11-28-2022 Urobilinogen Ql (U) Normal mg/dl Normal [facility] TSH with Reflex to T4, Freeo n 11-24-2022 TSH with reflex to T4, Free 0.823 [facility] Release to patient->Automatic [facility] Culture, urineOrdered By: Dr Praveena Clements on 11-19-2022 Bacteria identified Cx Nom (U) Mixed Gram Pos & Gram Neg Org [facility] Basophil percentageOrdered B y: Dr. Clements on 11-18-2022 Basophil percentage 5-10 SEEN /hpf 0-5 [facility] Basophil percentageOrdered B y: Teodoro Garcia on 11-18-2022 Lactate [Moles/Vol] 0.7 mmol/L 0.4-2.0 [facility] Bilirubin Test strip Ql (U)O rdered By: Dr. Clements on 11-18-2022 Bilirubin Ql (U) Negative Negative [facility] Ketones Test strip Ql (U)Ord ered By: Dr. Clements on 11-18-2022 Ketones Ql (U) Negative Negative [facility] Mucus LM Ql (Urine sed)Order ed By: Dr. Clements on 11-18-2022 Mucus Ql (Urine sed) 2+ /hpf [facility] Nitrite Test strip Ql (U)Ord ered By: Dr. Clements on 11-18-2022 Nitrite Ql (U) Negative Negative [facility] Protein Test strip Ql (U)Ord ered By: Dr. Clements on 11-18-2022 Protein Ql (U) 30 mg/dl Negative [facility] Squamous epithelial cells de tection in urine sediment by light microscopyOrdered By: Dr. Clements on 11-18-2022 Epithelial cells.squamous LM Ql (Urine sed) 0 SEEN /hpf 5-10 [facility] Urine blood detectionOrdered By: Dr. Clements on 11-18-2022 RBC Ql (U) Negative Negative [facility] RBC Ql (U) 0 SEEN /hpf 0-5 [facility] Urine clarityOrdered By: Dr. Clements on 11-18-2022 Clarity (U) Clear Clear [facility] Urine color determinationOrd ered By: Dr. Clements on 11-18-2022 Color (U) Yellow Yellow [facility] Urine glucose detectionOrder ed By: Dr. Clements on 11-18-2022 Glucose Ql (U) Normal mg/dl Normal [facility] Urine leukocyte esterase det ection by dipstickOrdered By: Dr. Clements on 11-18-2022 Leukocyte esterase Test strip Ql (U) 25 /ul Negative [facility] Urine pHOrdered By: Dr. Urvashi dutta on 11-18-2022 pH (U) 6.0 [pH] 5.0 - 8.0 [facility] Urine sediment bacteria coun t by microscopy (number/high power field)Ordered By: Dr. Clements on 11-18-2022 Bacteria LM.HPF (Urine sed) [#/Area] 1 /[HPF] None Seen [facility] Urine specific gravity measu rementOrdered By: Dr. Clements on 11-18-2022 Specific gravity (U) [Rel density] 1.020 1.002-1.030 [facility] Urobilinogen Auto test strip Ql (U)Ordered By: Dr. Clements on 11-18-2022 Urobilinogen Ql (U) 1 mg/dl Normal [facility] Absolute lymphocyte countOrd ered By: Teodoro Garcia on 11-17-2022 Lymphocytes Auto (Unsp spec) [#/Vol] 6.68 10*3/uL 0.83-4.51 [facility] Basophil percentageOrdered B y: Teodoro Garcia on 11-17-2022 Basophils/100 WBC (Bld) 0.5 % 0-1 [facility] Chloride [Moles/Vol] 108 mmol/L 98-[address] [facility] Eosinophils/100 WBC (Bld) 1.4 % 0-3 [facility] Glucose [Mass/Vol] 60 mg/dL 74-106 [facility] Lactate [Moles/Vol] 3.1 mmol/L 0.4-2.0 [facility] Comment on above: Critical Result(s) C alled at: 23:35:04 11/17/2022 by: NANCY MCKAY TO SHIVAM BOWLING. Results read back by same. Neutrophils (Bld) [#/Vol] 5.5 10*3/uL 2.0-7.7 [facility] Neutrophils/100 WBC (Bld) 41.2 % 34-64 [facility] Potassium [Moles/Vol] 3.8 mmol/L 3.5-5.1 [facility] Sodium [Moles/Vol] 140 mmol/L 136-145 [facility] WBC (Bld) [#/Vol] 13.3 10*3/uL 4.5-13.0 [facility] Beta hCG serum qualOrdered B y: Dr. Clements on 11-17-2022 Beta HCG ( test) Ql Negative [facility] Blood erythrocytes count (nu mber/volume)Ordered By: Teodoro Garcia on 11-17-2022 RBC (Bld) [#/Vol] 5.17 10*6/uL 4.1-4.8 [facility] Blood hemoglobin measurement (mass/volume)Ordered By: Teodoro Garcia on 11-17-2022 Hemoglobin (Bld) [Mass/Vol] 15.0 g/dL 12.0-15.0 [facility] Blood lymphocytes/100 leukoc ytesOrdered By: Teodoro Garcia on 11-17-2022 Lymphocytes/100 WBC (Bld) 50.2 % 25-45 [facility] Blood manual differential co mment interpretation (narrative result)Ordered By: Teodoro Garcia on 11-17-2022 Manual differential comment James (Bld) [Interp] SCANNED [facility] Blood monocytes/100 leukocyt esOrdered By: Teodoro Garcia on 11-17-2022 Monocytes/100 WBC (Bld) 6.4 % 3-6 [facility] Blood platelet mean volumeOr dered By: Teodoro Garcia on 11-17-2022 Platelet mean volume (Bld) [Entitic vol] 9.6 fL 6.2-12.0 [facility] Determination of erythrocyte mean corpuscular volume (MCV)Ordered By: Teodoro Garcia on 11-17-2022 MCV (RBC) [Entitic vol] 86.3 fL 78-96 [facility] Hematocrit Auto (Bld) [Volum e fraction]Ordered By: Teodoro Garcia on 11-17-2022 Hematocrit (Bld) [Volume fraction] 44.6 % 37-46 [facility] INR in Blood by Coagulation assayOrdered By: Teodoro Garcia on 11-17-2022 INR Coag (Bld) [Relative time] 1.0 {INR} [facility] Laboratory - Chemistry and C hemistry - challengeOrdered By: Teodoro Garcia on 11-17-2022 CO2 [Moles/Vol] 27.0 mmol/L 21.0-32.0 [facility] Urea nitrogen/Creatinine [Mass ratio] 15.1 mg/mg 10-20 [facility] - CoagulationOrde red By: Teodoro Garcia on 11-17-2022 aPTT Coag (Bld) [Time] 30.9 s 24.1-36.2 [facility] PT Coag (PPP) [Time] 12.5 s 11.7-14.[address] [facility] Laboratory - Hematology and Cell countsOrdered By: Teodoro Garcia on 11-17-2022 Erythrocyte distribution width (RBC) [Entitic vol] 37.1 fL 35.1-43.9 [facility] Erythrocyte distribution width (RBC) [Ratio] 11.8 % 11.6-14.6 [facility] Immature granulocytes/100 WBC (Bld) 0.300 % 0.0-0.9 [facility] Comment on above: IG% - Immature Granu locytes (promyelocytes, myelocytes and metamyelocytes) > 1% indicates that a LEFT SHIFT is Present. MCH (RBC) [Entitic mass] 29.0 pg 25.0-35.0 [facility] Nucleated RBC/100 WBC (Bld) [Ratio] 0 % 0-5 [facility] MCHC Auto (RBC) [Mass/Vol]Or dered By: Teodoro Garcia on 11-17-2022 MCHC (RBC) [Mass/Vol] 33.6 g/dL 32-36 [facility] No Panel InformationOrdered By: Teodoro Garcia on 11-17-2022 Atypical Lymphocytes 1+ % [facility] Estimated GFR (MDRD) [facility] Comment on above: Test not performedAf rican Monegasque GFR Calc Estimated GFR (MDRD) Non-Af [facility] Comment on above: Test not performedNo n- GFR Calc Platelets bldOrdered By: Fran Garcia on 11-17-2022 Platelets (Bld) [#/Vol] 471 10*3/uL 150-450 [facility] Serum or plasma calcium vel urement (mass/volume)Ordered By: Teodoro Garcia on 11-17-2022 Calcium [Mass/Vol] 9.2 mg/dL 8.5-10.1 [facility] Serum or plasma creatinine m easurement (mass/volume)Ordered By: Teodoro Garcia on 11-17-2022 Creatinine [Mass/Vol] 0.93 mg/dL 0.55-1.02 [facility] Comment on above: The validity of the calculated GFR & GFRAA in patients over 70 years has not been determined. Clinical correlation is essential. Serum or plasma urea nitroge n measurement (mass/volume)Ordered By: Teodoro Garcia on 11-17-2022 Urea nitrogen [Mass/Vol] 14 mg/dL 7-18 [facility] Thin prep Papanicolaou smear with manual screeningOrdered By: Teodoro Garcia on 11-17-2022 Thin prep Papanicolaou smear with manual screening 5 5-15 [facility] Absolute lymphocyte countOrd ered By: Dr. Harris on 11-12-2022 Lymphocytes Auto (Unsp spec) [#/Vol] 1.06 10*3/uL 0.83-4.51 [facility] Basophil percentageOrdered B y: Dr. Harris on 11-12-2022 Basophil percentage 0 SEEN /hpf 0-[address] [facility] Basophils/100 WBC (Bld) 0.4 % 0-1 [facility] Bilirubin [Mass/Vol] 0.50 mg/dL 0.20-1.[address] [facility] Comment on above: For patients on eltr ombopag therapy, use of Dimension [place] TBIL is not recommended. Chloride [Moles/Vol] 110 mmol/L 98-[address] [facility] Eosinophils/100 WBC (Bld) 0.2 % 0-3 [facility] Glucose [Mass/Vol] 93 mg/dL 74-106 [facility] Neutrophils (Bld) [#/Vol] 10.9 10*3/uL 2.0-7.7 [facility] Neutrophils/100 WBC (Bld) 89.5 % 34-64 [facility] Potassium [Moles/Vol] 3.9 mmol/L 3.5-5.1 [facility] Protein [Mass/Vol] 7.7 g/dL 6.4-8.2 [facility] Sodium [Moles/Vol] 141 mmol/L 136-145 [facility] WBC (Bld) [#/Vol] 12.2 10*3/uL 4.5-13.0 [facility] Beta hCG serum qualOrdered B y: Dr. Harris on 11-12-2022 Beta HCG ( test) Ql Negative [facility] Bilirubin Test strip Ql (U)O rdered By: Dr. Harris on 11-12-2022 Bilirubin Ql (U) Negative Negative [facility] Blood erythrocytes count (nu mber/volume)Ordered By: Dr. Harris on 11-12-2022 RBC (Bld) [#/Vol] 4.89 10*6/uL 4.1-4.8 [facility] Blood hemoglobin measurement (mass/volume)Ordered By: Dr. Harris on 11-12-2022 Hemoglobin (Bld) [Mass/Vol] 13.9 g/dL 12.0-15.0 [facility] Blood lymphocytes/100 leukoc ytesOrdered By: Dr. Harris on 11-12-2022 Lymphocytes/100 WBC (Bld) 8.7 % 25-45 [facility] Blood monocytes/100 leukocyt esOrdered By: Dr. Harris on 11-12-2022 Monocytes/100 WBC (Bld) 0.9 % 3-6 [facility] Blood platelet mean volumeOr dered By: Dr. Harris on 11-12-2022 Platelet mean volume (Bld) [Entitic vol] 9.9 fL 6.2-12.0 [facility] Determination of erythrocyte mean corpuscular volume (MCV)Ordered By: Dr. Harris on 11-12-2022 MCV (RBC) [Entitic vol] 88.1 fL 78-96 [facility] Direct bilirubinOrdered By: Dr. Harris on 11-12-2022 Bilirubin.direct [Mass/Vol] 0.18 mg/dL 0.00-0.30 [facility] Hematocrit Auto (Bld) [Volum e fraction]Ordered By: Dr. Harris on 11-12-2022 Hematocrit (Bld) [Volume fraction] 43.1 % 37-46 [facility] Ketones Test strip Ql (U)Ord ered By: Dr. Harris on 11-12-2022 Ketones Ql (U) Negative Negative [facility] Laboratory - Chemistry and C hemistry - challengeOrdered By: Dr. Harris on 11-12-2022 ALP [Catalytic activity/Vol] 53 U/L 47-119 [facility] ALT [Catalytic activity/Vol] 16 U/L 13-56 [facility] CO2 [Moles/Vol] 25.0 mmol/L 21.0-32.0 [facility] Globulin (S) [Mass/Vol] 3.7 g/dL 2.2-4.2 [facility] Lipase [Catalytic activity/Vol] 97 U/L 73-393 [facility] Urea nitrogen/Creatinine [Mass ratio] 14.2 mg/mg 10-20 [facility] - Hematology and Cell countsOrdered By: Dr. Harris on 11-12-2022 Erythrocyte distribution width (RBC) [Entitic vol] 38.0 fL 35.1-43.9 [facility] Erythrocyte distribution width (RBC) [Ratio] 11.7 % 11.6-14.6 [facility] Immature granulocytes/100 WBC (Bld) 0.300 % 0.0-0.9 [facility] Comment on above: IG% - Immature Granu locytes (promyelocytes, myelocytes and metamyelocytes) > 1% indicates that a LEFT SHIFT is Present. MCH (RBC) [Entitic mass] 28.4 pg 25.0-35.0 [facility] Nucleated RBC/100 WBC (Bld) [Ratio] 0 % 0-5 [facility] MCHC Auto (RBC) [Mass/Vol]Or dered By: Dr. Harris on 11-12-2022 MCHC (RBC) [Mass/Vol] 32.3 g/dL 32-36 [facility] Mucus LM Ql (Urine sed)Order ed By: Dr. Harris on 11-12-2022 Mucus Ql (Urine sed) 0 SEEN /hpf [facility] Nitrite Test strip Ql (U)Ord ered By: Dr. Harris on 11-12-2022 Nitrite Ql (U) Negative Negative [facility] No Panel InformationOrdered By: Dr. Harris on 11-12-2022 Estimated Creatinine Clearance Calc 94.47 ml/min [facility] Estimated GFR (MDRD) [facility] Comment on above: Test not performedAf rican [place]onegasque GFR Calc Estimated GFR (MDRD) [facility] Comment on above: Test not performedNo n- GFR Calc Platelets bldOrdered By: Dr. Harris on 11-12-2022 Platelets (Bld) [#/Vol] 353 10*3/uL 150-450 [facility] Protein Test strip Ql (U)Ord ered By: Dr. Harris on 11-12-2022 Protein Ql (U) 15 mg/dl Negative [facility] Serum or plasma albumin vel urement (mass/volume)Ordered By: Dr. Harris on 11-12-2022 Albumin [Mass/Vol] 4.0 g/dL 3.2-5.0 [facility] Serum or plasma albumin/glob ulin mass ratioOrdered By: Dr. Harris on 11-12-2022 Albumin/Globulin [Mass ratio] 1.1 {ratio} 0.9-2.4 [facility] Serum or plasma calcium vel urement (mass/volume)Ordered By: Dr. Harris on 11-12-2022 Calcium [Mass/Vol] 9.5 mg/dL 8.5-10.1 [facility] Serum or plasma creatinine m easurement (mass/volume)Ordered By: Dr. Harris on 11-12-2022 Creatinine [Mass/Vol] 0.91 mg/dL 0.55-1.02 [facility] Comment on above: The validity of the calculated GFR & GFRAA in patients over 70 years has not been determined. Clinical correlation is essential. Serum or plasma urea nitroge n measurement (mass/volume)Ordered By: Dr. Harris on 11-12-2022 Urea nitrogen [Mass/Vol] 13 mg/dL 7-18 [facility] Squamous epithelial cells de tection in urine sediment by light microscopyOrdered By: Dr. Harris on 11-12-2022 Epithelial cells.squamous LM Ql (Urine sed) 0 SEEN /hpf 5-10 [facility] Thin prep Papanicolaou smear with manual screeningOrdered By: Dr. Harris on 11-12-2022 Thin prep Papanicolaou smear with manual screening 18 U/L 15-37 [facility] Thin prep Papanicolaou smear with manual screening 6 5-15 [facility] Urine blood detectionOrdered By: Dr. Harris on 11-12-2022 RBC Ql (U) 150 /ul Negative [facility] RBC Ql (U) 0 SEEN /hpf 0-5 [facility] Urine clarityOrdered By: Dr. Harris on 11-12-2022 Clarity (U) Clear Clear [facility] Urine color determinationOrd ered By: Dr. Harris on 11-12-2022 Color (U) Yellow Yellow [facility] Urine glucose detectionOrder ed By: Dr. Harris on 11-12-2022 Glucose Ql (U) Normal mg/dl Normal [facility] Urine leukocyte esterase det ection by dipstickOrdered By: Dr. Harris on 11-12-2022 Leukocyte esterase Test strip Ql (U) Negative Negative [facility] Urine pHOrdered By: Dr. Carrington jones on 11-12-2022 pH (U) 7.0 [pH] 5.0 - 8.0 [facility] Urine sediment bacteria coun t by microscopy (number/high power field)Ordered By: Dr. Harris on 11-12-2022 Bacteria LM.HPF (Urine sed) [#/Area] 0 /[HPF] None Seen [facility] Urine specific gravity measu rementOrdered By: Dr. Harris on 11-12-2022 Specific gravity (U) [Rel density] 1.010 1.002-1.030 [facility] Urobilinogen Auto test strip Ql (U)Ordered By: Dr. Harris on 11-12-2022 Urobilinogen Ql (U) Normal mg/dl Normal [facility] 2019 CORONAVIRUSon 3 SARS-CoV-2 (COVID-19) RNA JAIRON+probe Ql (Resp) SARS-CoV-2 (Agent of COVID-19) Not Detected by RT-PCR or equivalent method. Not Detected [facility] Absolute lymphocyte countOrd ered By: Dr. De La Torre on 08-26-2022 Lymphocytes Auto (Unsp spec) [#/Vol] 0.76 10*3/uL 0.83-4.51 [facility] Basophil percentageOrdered B y: Dr. De La Torre on 08-26-2022 Basophils/100 WBC (Bld) 0.2 % 0-1 [facility] Bilirubin [Mass/Vol] 0.70 mg/dL 0.20-1.[address] [facility] Comment on above: For patients on eltr ombopag therapy, use of Dimension [place] TBIL is not recommended. Chloride [Moles/Vol] 104 mmol/L 98-[address] [facility] Eosinophils/100 WBC (Bld) 0.5 % 0-3 [facility] Glucose [Mass/Vol] 104 mg/dL 74-106 [facility] Comment on above: Fasting Glucose resu lt from 100 to 125 mg/dL suggests IMPAIRED HOMEOSTASIS per A.D.A. criteria. Neutrophils (Bld) [#/Vol] 11.0 10*3/uL 2.0-7.7 [facility] Neutrophils/100 WBC (Bld) 86.4 % 34-64 [facility] Potassium [Moles/Vol] 3.2 mmol/L 3.5-5.1 [facility] Protein [Mass/Vol] 8.4 g/dL 6.4-8.2 [facility] Sodium [Moles/Vol] 138 mmol/L 136-145 [facility] WBC (Bld) [#/Vol] 12.8 10*3/uL 4.5-13.0 [facility] Blood erythrocytes count (nu mber/volume)Ordered By: Dr. De La Torre on 08-26-2022 RBC (Bld) [#/Vol] 5.04 10*6/uL 4.1-4.8 [facility] Blood hemoglobin measurement (mass/volume)Ordered By: Dr. De La Torre on 08-26-2022 Hemoglobin (Bld) [Mass/Vol] 14.6 g/dL 12.0-15.0 [facility] Blood lymphocytes/100 leukoc ytesOrdered By: Dr. De La Torre on 08-26-2022 Lymphocytes/100 WBC (Bld) 5.9 % 25-45 [facility] Blood monocytes/100 leukocyt esOrdered By: Dr. De La Torre on 08-26-2022 Monocytes/100 WBC (Bld) 6.7 % 3-6 [facility] Blood platelet mean volumeOr dered By: Dr. De La Torre on 08-26-2022 Platelet mean volume (Bld) [Entitic vol] 9.8 fL 6.2-12.0 [facility] Determination of erythrocyte mean corpuscular volume (MCV)Ordered By: Dr. De La Torre on 08-26-2022 MCV (RBC) [Entitic vol] 85.9 fL 78-96 [facility] Hematocrit Auto (Bld) [Volum e fraction]Ordered By: Dr. De La Torre on 08-26-2022 Hematocrit (Bld) [Volume fraction] 43.3 % 37-46 [facility] Influenza virus A and B and SARS-CoV-2 (COVID-19) Ag panel - Upper respiratory specimOrdered By: Dr. De La Torre on 08-26-2022 SARS-CoV-2 (COVID-19) RNA JAIRON+probe Ql (Resp) [facility] Laboratory - Chemistry and C hemistry - challengeOrdered By: Dr. De La Torre on 08-26-2022 ALP [Catalytic activity/Vol] 67 U/L 47-119 [facility] ALT [Catalytic activity/Vol] 17 U/L 13-56 [facility] CO2 [Moles/Vol] 27.0 mmol/L 21.0-32.0 [facility] Globulin (S) [Mass/Vol] 4.4 g/dL 2.2-4.2 [facility] Urea nitrogen/Creatinine [Mass ratio] 11.1 mg/mg 10-20 [facility] - Hematology and Cell countsOrdered By: Dr. De La Torre on 08-26-2022 Erythrocyte distribution width (RBC) [Entitic vol] 36.5 fL 35.1-43.9 [facility] Erythrocyte distribution width (RBC) [Ratio] 11.7 % 11.6-14.6 [facility] Immature granulocytes/100 WBC (Bld) 0.300 % 0.0-0.9 [facility] Comment on above: IG% - Immature Granu locytes (promyelocytes, myelocytes and metamyelocytes) > 1% indicates that a LEFT SHIFT is Present. MCH (RBC) [Entitic mass] 29.0 pg 25.0-35.0 [facility] Nucleated RBC/100 WBC (Bld) [Ratio] 0 % 0-5 [facility] MCHC Auto (RBC) [Mass/Vol]Or dered By: Dr. De La Torre on 08-26-2022 MCHC (RBC) [Mass/Vol] 33.7 g/dL 32-36 [facility] No Panel InformationOrdered By: Dr. De La Torre on 08-26-2022 Estimated Creatinine Clearance Calc 106.31 ml/min [facility] Estimated GFR (MDRD) [facility] Comment on above: Test not performedAf rican [place] GFR Calc Estimated GFR (MDRD) Non-Af [facility] Comment on above: Test not performedNo n- GFR Calc Platelets bldOrdered By: Dr. De La Torre on 08-26-2022 Platelets (Bld) [#/Vol] 305 10*3/uL 150-450 [facility] ROUTINE FLU A/B + RSVon FLUAV RNA JAIRON+probe Ql (Unsp spec) Negative Negative for Influenza A by RT-PCR [facility] FLUBV RNA JAIRON+probe Ql (Unsp spec) Negative Negative for Influenza B by RT-PCR [facility] RSV A RNA JAIRON+probe Ql (Unsp spec) Negative Negative for Respiratory Syncytial Virus (RSV) by PCR [facility] Serum heterophile antibody d etectionOrdered By: Dr. De La Torre on 08-26-2022 Heterophile Ab Ql (S) Negative Negative [facility] Serum or plasma albumin vel urement (mass/volume)Ordered By: Dr. De La Torre on 08-26-2022 Albumin [Mass/Vol] 4.0 g/dL 3.2-5.0 [facility] Serum or plasma albumin/glob ulin mass ratioOrdered By: Dr. De La Torre on 08-26-2022 Albumin/Globulin [Mass ratio] 0.9 {ratio} 0.9-2.4 [facility] Serum or plasma calcium vel urement (mass/volume)Ordered By: Dr. De La Torre on 08-26-2022 Calcium [Mass/Vol] 9.3 mg/dL 8.5-10.1 [facility] Serum or plasma creatinine m easurement (mass/volume)Ordered By: Dr. De La Torre on 08-26-2022 Creatinine [Mass/Vol] 0.81 mg/dL 0.55-1.02 [facility] Comment on above: The validity of the calculated GFR & GFRAA in patients over 70 years has not been determined. Clinical correlation is essential. Serum or plasma urea nitroge n measurement (mass/volume)Ordered By: Dr. De La Torre on 08-26-2022 Urea nitrogen [Mass/Vol] 9 mg/dL 7-18 [facility] Thin prep Papanicolaou smear with manual screeningOrdered By: Dr. De La Torre on 08-26-2022 Thin prep Papanicolaou smear with manual screening 17 U/L 15-37 [facility] Thin prep Papanicolaou smear with manual screening 7 5-15 [facility] STREP A MOLECULAR (POC)on Procedural Control Valid [facility] Strep A (POCT) Negative Negative [facility] UA DIP, URINE (POC)on 2021 BILIRUBIN UA (POCT) Small Abnormal Negative [facility] CLARITY UA (POCT) [facility] COLOR UA (POCT) Yellow [facility] GLUCOSE UA (POCT) Negative Negative mg/dL [facility] HEMOGLOBIN/BLOOD UA (POCT) Negative Negative [facility] KETONE UA (POCT) Negative Negative mg/dL [facility] LEUKOCYTES UA (POCT) Negative Negative [facility] NITRITE UA (POCT) Negative [facility] PH UA (POCT) 5.5 4.5 - 8.0 [facility] Protein Ql (U) Trace Abnormal Negative mg/dL [facility] SPECIFIC GRAVITY UA (POCT) >=1.030 1.005 - 1.030 [facility] UROBILINOGEN UA (POCT) 0.2 E.U./dL Normal E.U./ dL [facility] Influenza virus A and B and SARS-CoV-2 (COVID-19) Ag panel - Upper respiratory specim SARS-CoV-2 (COVID-19) RNA JAIRON+probe Ql (Resp) [facility] Work Phone: Vital Signs Date Time Vital Sign Value Performing Clinician Facility 02-21-2025 03:36-0400 Body temperature 98.4 [degF] Dr. Mitzy Fung MD Work Phone: [facility] 02-21-2025 03:36-0400 Diastolic blood pressure 68 mm[Hg] Dr. Mitzy Fung MD Work Phone: [facility] 02-21-2025 03:36-0400 Heart rate 74 /min Dr. Mitzy Fung MD Work Phone: [facility] 02-21-2025 03:36-0400 Respiratory rate 16 /min Dr. Mitzy Fung MD Work Phone: [facility] 02-21-2025 03:36-0400 SaO2% (BldA) [Mass fraction] 99 % Dr. Mitzy Fung MD Work Phone: [facility] 02-21-2025 03:36-0400 Systolic blood pressure 115 mm[Hg] Dr. Mitzy Fung MD Work Phone: [facility] 02-21-2025 00:58-0400 Body height 162.[address] Mitzy Fung MD Work Phone: [facility] 02-21-2025 00:58-0400 Body mass index (BMI) [Percentile] Per age and sex 50 % Dr. Mitzy Fung MD Work Phone: [phone] [place] [address] 02-21-2025 00:58-0400 Body mass index (BMI) [Ratio] 21.7 kg/m2 Dr. Mitzy Fung MD Work Phone: 9(522)373-351410 [place] [address] 02-21-2025 00:58-0400 Body weight 57.[address] Mitzy Fung MD Work Phone: 0(012)195-134410 [place] [address] 02-05-2025 12:06-0400 Body temperature 98.2 [degF] Dr. Mitzy Fung MD Work Phone: 6(280)459-198310 [place] [address] 02-05-2025 12:06-0400 Diastolic blood pressure 74 mm[Hg] Dr. Mitzy Fung MD Work Phone: 9(693)406-537010 [place] [address] 02-05-2025 12:06-0400 Heart rate 78 /min Dr. Mitzy Fung MD Work Phone: 8(549)129-511310 [place] [address] 02-05-2025 12:06-0400 Respiratory rate 16 /min Dr. Mitzy Fung MD Work Phone: 1(704)226-311210 [place] [address] 02-05-2025 12:06-0400 SaO2% (BldA) [Mass fraction] 97 % Dr. Mitzy Fung MD Work Phone: 5(028)185-945410 [place] [address] 02-05-2025 12:06-0400 Systolic blood pressure 122 mm[Hg] Dr. Mitzy Fung MD Work Phone: 9(186)399-784610 [place] [address] 02-05-2025 09:26-0400 Body height 162.[address] Mitzy Fung MD Work Phone: 5(342)914-582710 [place] [address] 02-05-2025 09:26-0400 Body mass index (BMI) [Percentile] Per age and sex 43.8 % Dr. Mitzy Fung MD Work Phone: 2(348)357-504110 [place] [address] 02-05-2025 09:26-0400 Body mass index (BMI) [Ratio] 21.2 kg/m2 Dr. Mitzy Fung MD Work Phone: 8(671)540-792210 [place] [address] 02-05-2025 09:26-0400 Body weight 56.[address] Mitzy Fung MD Work Phone: 4(954)777-417110 [place] [address] 01-23-2025 11:04-0400 Body temperature 98 [degF] Dr. Mitzy Fung MD Work Phone: 6(050)474-507110 [place] [address] 01-23-2025 11:04-0400 Diastolic blood pressure 71 mm[Hg] Dr. Mitzy Fung MD Work Phone: 5(881)897-864510 [place] [address] 01-23-2025 11:04-0400 Heart rate 98 /min Dr. Mitzy Fung MD Work Phone: 9(279)261-624110 [place] [address] 01-23-2025 11:04-0400 Respiratory rate 19 /min Dr. Mitzy Fung MD Work Phone: 4(874)042-757810 [place] [address] 01-23-2025 11:04-0400 SaO2% (BldA) [Mass fraction] 1 % Dr. Mitzy Fung MD Work Phone: 0(325)686-107810 [place] [address] 01-23-2025 11:04-0400 Systolic blood pressure 140 mm[Hg] Dr. Mitzy Fung MD Work Phone: 2(737)022-319910 [place] [address] 01-23-2025 09:19-0400 Body height [address] Mitzy Fung MD Work Phone: 9(651)991-919310 [place] [address] 01-23-2025 09:19-0400 Body mass index (BMI) [Percentile] Per age and sex 46.5 % Dr. Mitzy Fung MD Work Phone: 4(994)240-046710 [place] [address] 01-23-2025 09:19-0400 Body mass index (BMI) [Ratio] 21.4 kg/m2 Dr. Mitzy Fung MD Work Phone: 4(428)335-133210 [place] [address] 01-23-2025 09:19-0400 Body weight 58.[address] Mitzy Fung MD Work Phone: 4(495)376-765810 [place] [address] 01-20-2025 19:00-0400 Body temperature 98 [degF] Dr. Mitzy Fung MD Work Phone: 0(156)555-946810 [place] [address] 01-20-2025 19:00-0400 Diastolic blood pressure 57 mm[Hg] Dr. Mitzy Fung MD Work Phone: 6(494)930-896410 [place] [address] 01-20-2025 19:00-0400 Heart rate 69 /min Dr. Mitzy Fung MD Work Phone: 1(159)438-853753 [place] [address] 01-20-2025 19:00-0400 Respiratory rate 18 /min Dr. Mitzy Fung MD Work Phone: 8(824)073-659910 [place] [address] 01-20-2025 19:00-0400 SaO2% (BldA) [Mass fraction] 100 % Dr. Mitzy Fung MD Work Phone: 2(840)381-376573 [address] 01-20-2025 19:00-0400 Systolic blood pressure 116 mm[Hg] Dr. Mitzy Fung MD Work Phone: 1(049)274-304710 [place] [address] 01-20-2025 15:24-0400 Body height 165.[address] Mitzy Fung MD Work Phone: 5(261)277-648410 [place] [address] 01-20-2025 15:24-0400 Body mass index (BMI) [Percentile] Per age and sex 52.6 % Dr. Mitzy Fung MD Work Phone: 0(680)586-932110 [place] [address] 01-20-2025 15:24-0400 Body mass index (BMI) [Ratio] 21.9 kg/m2 Dr. Mitzy Fung MD Work Phone: 1(749)956-904873 [address] 01-20-2025 15:24-0400 Body weight 59.[address] Mitzy Fung MD Work Phone: 8(821)212-878173 [address] 08-27-2024 11:54-0500 Body mass index (BMI) [Ratio] 21.08 kg/m2 Jasmin Enriquez APRN.PAPER INSERTER Work Phone: [facility] 08-27-2024 11:54-0500 Body temperature 98.4 [degF] Jasmin Enriquez [employer].PAPER INSERTER Work Phone: [facility] 08-27-2024 11:54-0500 Body weight 57.1 kg Jasmin Enriquez APRN.PAPER INSERTER Work Phone: [facility] 08-27-2024 11:54-0500 Diastolic blood pressure 78 mm[Hg] Jasmin Enriquez APRN.PAPER INSERTER Work Phone: [facility] 08-27-2024 11:54-0500 Heart rate 106 /min Jasmin Praisler-Wood [employer].PAPER INSERTER Work Phone: [facility] 08-27-2024 11:54-0500 Respiratory rate 20 /min Jasmin Praisler-Wood [employer].PAPER INSERTER Work Phone: [facility] 08-27-2024 11:54-0500 SaO2% (BldA) [Mass fraction] 97 % Jasmin Praisler-Wood [employer].PAPER INSERTER Work Phone: [facility] 08-27-2024 11:54-0500 Systolic blood pressure 110 mm[Hg] Jasmin Praisler-Wood [employer]ER.PAPER INSERTER Work Phone: [facility] 01-26-2024 16:26-0400 Body temperature 97.9 [degF] Martínez Moomaw [employer]KER.PAPER INSERTER Work Phone: [facility] 01-26-2024 16:26-0400 Body weight 60 kg Martínez Moomaw [employer].PAPER INSERTER Work Phone: [facility] 01-26-2024 16:26-0400 Diastolic blood pressure 60 mm[Hg] Martínez Moomaw [employer]ER.PAPER INSERTER Work Phone: [facility] 01-26-2024 16:26-0400 Heart rate 80 /min Martínez Moomaw [employer]ER.PAPER INSERTER Work Phone: [facility] 01-26-2024 16:26-0400 Respiratory rate 16 /min Martínez Moomaw [employer].PAPER INSERTER Work Phone: [facility] 01-26-2024 16:26-0400 SaO2% (BldA) [Mass fraction] 99 % Martínez Moomaw [employer]ER.PAPER INSERTER Work Phone: [facility] 01-26-2024 16:26-0400 Systolic blood pressure 102 mm[Hg] Martínez Moomaw [employer]KER.PAPER INSERTER Work Phone: [facility] 12-29-2023 16:49-0400 Body temperature 97.3 [degF] Jasmin Praisler-Wood [employer]ER.PAPER INSERTER Work Phone: [facility] 12-29-2023 16:49-0400 Body weight 58.6 kg Jasmin Praisler-Wood [employer].PAPER INSERTER Work Phone: [facility] 12-29-2023 16:49-0400 Diastolic blood pressure 79 mm[Hg] Jasmin Praisler-Wood [employer]KER.PAPER INSERTER Work Phone: [facility] 12-29-2023 16:49-0400 Heart rate 94 /min Jasmin Praisler-Wood [employer]ER.PAPER INSERTER Work Phone: [facility] 12-29-2023 16:49-0400 Respiratory rate 18 /min Jasmin Praisler-Wood [employer].PAPER INSERTER Work Phone: [facility] 12-29-2023 16:49-0400 SaO2% (BldA) [Mass fraction] 100 % Jasmin Praisler-Wood [employer].PAPER INSERTER Work Phone: [facility] 12-29-2023 16:49-0400 Systolic blood pressure 129 mm[Hg] Jasmin Praisler-Wood B[employer]IAL VA[employer] MAKER.[facility] Work Phone: [facility] 12-24-2023 09:16-0400 Body temperature 99 [degF] [facility] 12-24-2023 09:16-0400 Diastolic blood pressure 88 mm[Hg] [facility] 12-24-2023 09:16-0400 Heart rate 58 /min [facility] 12-24-2023 09:16-0400 Respiratory rate 16 /min [facility] 12-24-2023 09:16-0400 SaO2% (BldA) [Mass fraction] 100 % [facility] 12-24-2023 09:16-0400 Systolic blood pressure 121 mm[Hg] [facility] 12-24-2023 07:12-0400 Body height 165.1 cm [facility] 12-24-2023 07:12-0400 Body mass index (BMI) [Percentile] Per age and sex 46.6 % [facility] 12-24-2023 07:12-0400 Body mass index (BMI) [Ratio] 21.2 kg/m2 [facility] 12-24-2023 07:12-0400 Body weight 58 kg [facility] 11-14-2023 18:27-0400 Body temperature 98.4 [degF] [facility] 11-14-2023 18:27-0400 Diastolic blood pressure 59 mm[Hg] [facility] 11-14-2023 18:27-0400 Heart rate 77 /min [facility] 11-14-2023 18:27-0400 Respiratory rate 16 /min [facility] 11-14-2023 18:27-0400 SaO2% (BldA) [Mass fraction] 100 % [facility] 11-14-2023 18:27-0400 Systolic blood pressure 113 mm[Hg] [facility] 11-14-2023 13:07-0400 Body height 165.1 cm [facility] 11-14-2023 13:07-0400 Body mass index (BMI) [Percentile] Per age and sex 60.1 % [facility] 11-14-2023 13:07-0400 Body mass index (BMI) [Ratio] 22.3 kg/m2 [facility] 11-14-2023 13:07-0400 Body weight 60.8 kg [facility] 11-14-2023 12:40-0400 Body temperature 97.5 [degF] Loni Escobar APRN.PAPER INSERTER Work Phone: [facility] 11-14-2023 12:40-0400 Body weight 60.9 kg Loni Escobar APRN.PAPER INSERTER Work Phone: [facility] 11-14-2023 12:40-0400 Diastolic blood pressure 62 mm[Hg] Loni Escobar APRN.PAPER INSERTER Work Phone: [facility] 11-14-2023 12:40-0400 Heart rate 74 /min Loni Escobar APRN.PAPER INSERTER Work Phone: [facility] 11-14-2023 12:40-0400 Respiratory rate 21 /min Loni Khalif [employer].PAPER INSERTER Work Phone: [facility] 11-14-2023 12:40-0400 SaO2% (BldA) [Mass fraction] 99 % Loni Escobar [employer].PAPER INSERTER Work Phone: [facility] 11-14-2023 12:40-0400 Systolic blood pressure 120 mm[Hg] Loni Escobar [employer].PAPER INSERTER Work Phone: [facility] 10-30-2023 16:02-0500 Body temperature 97.81 [degF] Lillian Sanchez [employer].PAPER INSERTER Work Phone: [facility] 10-30-2023 16:02-0500 Body weight 58.8 kg Lillian Sanchez [employer].PAPER INSERTER Work Phone: [facility] 10-30-2023 16:02-0500 Diastolic blood pressure 74 mm[Hg] Lillian Sanchez [employer]KER.PAPER INSERTER Work Phone: [facility] 10-30-2023 16:02-0500 Heart rate 102 /min Lillian Sanchez [employer]KER.PAPER INSERTER Work Phone: [facility] 10-30-2023 16:02-0500 Respiratory rate 18 /min Lillian Sanchez [employer].PAPER INSERTER Work Phone: [facility] 10-30-2023 16:02-0500 SaO2% (BldA) [Mass fraction] 99 % Lillian Sanchez [employer].PAPER INSERTER Work Phone: [facility] 10-30-2023 16:02-0500 Systolic blood pressure 114 mm[Hg] Lillian Sanchez [employer]ER.PAPER INSERTER Work Phone: [facility] 09-25-2023 05:12-0500 Body temperature 98 [degF] [facility] 09-25-2023 05:12-0500 Diastolic blood pressure 83 mm[Hg] [facility] 09-25-2023 05:12-0500 Heart rate 72 /min [facility] 09-25-2023 05:12-0500 Respiratory rate 18 /min [facility] 09-25-2023 05:12-0500 SaO2% (BldA) [Mass fraction] 99 % [facility] 09-25-2023 05:12-0500 Systolic blood pressure 129 mm[Hg] [facility] 09-25-2023 04:30-0500 Body height 165.1 cm [facility] 09-25-2023 04:30-0500 Body mass index (BMI) [Percentile] Per age and sex 59.5 % [facility] 09-25-2023 04:30-0500 Body mass index (BMI) [Ratio] 22.2 kg/m2 [facility] 09-25-2023 04:30-0500 Body weight 60.7 kg [facility] 07-28-2023 18:54-0500 Body temperature 98.1 [degF] Ivonne Dawson [employer].PAPER INSERTER Work Phone: [facility] 07-28-2023 18:54-0500 Body weight 59.78 kg Ivonne Dawson [employer].PAPER INSERTER Work Phone: [facility] 07-28-2023 18:54-0500 Diastolic blood pressure 70 mm[Hg] Ivonne Dawson [employer]ER.PAPER INSERTER Work Phone: [facility] 07-28-2023 18:54-0500 Heart rate 83 /min Ivonne Dawson [employer]ER.PAPER INSERTER Work Phone: [facility] 07-28-2023 18:54-0500 Respiratory rate 16 /min Ivonne Dawson [employer]ER.PAPER INSERTER Work Phone: [facility] 07-28-2023 18:54-0500 SaO2% (BldA) [Mass fraction] 100 % Ivonne Dawson [employer]ER.PAPER INSERTER Work Phone: [facility] 07-28-2023 18:54-0500 Systolic blood pressure 102 mm[Hg] Ivonne Dawson [employer].PAPER INSERTER Work Phone: [facility] 07-04-2023 09:16-0500 Body mass index (BMI) [Percentile] Per age and sex 78.9 % [facility] 07-04-2023 09:16-0500 Body mass index (BMI) [Ratio] 24.5 kg/m2 [facility] 07-04-2023 09:16-0500 Body temperature 98.2 [degF] [facility] 07-04-2023 09:16-0500 Body weight 64.7 kg [facility] 07-04-2023 09:16-0500 Diastolic blood pressure 109 mm[Hg] [facility] 07-04-2023 09:16-0500 Heart rate 114 /min [facility] 07-04-2023 09:16-0500 Respiratory rate 23 /min [facility] 07-04-2023 09:16-0500 SaO2% (BldA) [Mass fraction] 98 % [facility] 07-04-2023 09:16-0500 Systolic blood pressure 123 mm[Hg] [facility] 02-04-2023 21:31-0400 Body height 167.64 cm [facility] 02-04-2023 21:31-0400 Body mass index (BMI) [Percentile] Per age and sex 62.8 % [facility] 02-04-2023 21:31-0400 Body mass index (BMI) [Ratio] 22.3 kg/m2 [facility] 02-04-2023 21:31-0400 Body temperature 99.5 [degF] [facility] 02-04-2023 21:31-0400 Body weight 62.7 kg [facility] 02-04-2023 21:31-0400 Diastolic blood pressure 70 mm[Hg] [facility] 02-04-2023 21:31-0400 Heart rate 108 /min [facility] 02-04-2023 21:31-0400 Respiratory rate 18 /min [facility] 02-04-2023 21:31-0400 SaO2% (BldA) [Mass fraction] 99 % [facility] 02-04-2023 21:31-0400 Systolic blood pressure 108 mm[Hg] [facility] 11-28-2022 18:28-0400 Respiratory rate 18 /min [facility] 11-28-2022 14:19-0400 Body height 162.56 cm [facility] 11-28-2022 14:19-0400 Body mass index (BMI) [Percentile] Per age and sex 63.5 % [facility] 11-28-2022 14:19-0400 Body mass index (BMI) [Ratio] 22.3 kg/m2 [facility] 11-28-2022 14:19-0400 Body temperature 98 [degF] [facility] 11-28-2022 14:19-0400 Body weight 58.96 kg [facility] 11-28-2022 14:19-0400 Diastolic blood pressure 85 mm[Hg] [facility] 11-28-2022 14:19-0400 Heart rate 96 /min [facility] 11-28-2022 14:19-0400 SaO2% (BldA) [Mass fraction] 100 % [facility] 11-28-2022 14:19-0400 Systolic blood pressure 129 mm[Hg] [facility] 11-18-2022 04:39-0400 Body temperature 98.2 [degF] [facility] 11-18-2022 04:39-0400 Diastolic blood pressure 68 mm[Hg] [facility] 11-18-2022 04:39-0400 Heart rate 79 /min [facility] 11-18-2022 04:39-0400 Respiratory rate 16 /min [facility] 11-18-2022 04:39-0400 SaO2% (BldA) [Mass fraction] 98 % [facility] 11-18-2022 04:39-0400 Systolic blood pressure 108 mm[Hg] [facility] 11-18-2022 01:45-0400 Body height 162.56 cm [facility] 11-18-2022 01:45-0400 Body mass index (BMI) [Percentile] Per age and sex 70.1 % [facility] 11-18-2022 01:45-0400 Body mass index (BMI) [Ratio] 23 kg/m2 [facility] 11-18-2022 01:45-0400 Body temperature 98.7 [degF] [facility] 11-18-2022 01:45-0400 Body weight 60.9 kg [facility] 11-18-2022 01:45-0400 Heart rate 93 /min [facility] 11-18-2022 01:45-0400 Respiratory rate 17 /min [facility] 11-18-2022 01:45-0400 SaO2% (BldA) [Mass fraction] 96 % [facility] 11-18-2022 01:41-0400 Diastolic blood pressure 65 mm[Hg] [facility] 11-18-2022 01:41-0400 Systolic blood pressure 103 mm[Hg] [facility] 11-12-2022 12:56-0400 Body temperature 96.9 [degF] [facility] 11-12-2022 12:56-0400 Diastolic blood pressure 62 mm[Hg] [facility] 11-12-2022 12:56-0400 Heart rate 74 /min [facility] 11-12-2022 12:56-0400 Respiratory rate 16 /min [facility] 11-12-2022 12:56-0400 SaO2% (BldA) [Mass fraction] 98 % [facility] 11-12-2022 12:56-0400 Systolic blood pressure 105 mm[Hg] [facility] 11-12-2022 09:49-0400 Body height 167.64 cm [facility] 11-12-2022 09:49-0400 Body mass index (BMI) [Percentile] Per age and sex 48.5 % [facility] 11-12-2022 09:49-0400 Body mass index (BMI) [Ratio] 21 kg/m2 [facility] 11-12-2022 09:49-0400 Body weight 59.2 kg [facility] 08-26-2022 11:28-0500 Respiratory rate 20 /min [facility] 08-26-2022 09:51-0500 Body height 167.64 cm [facility] Work Phone: 08-26-2022 09:51-0500 Body mass index (BMI) [Percentile] Per age and sex 58.1 % [facility] 08-26-2022 09:51-0500 Body mass index (BMI) [Ratio] 21.7 kg/m2 [facility] 08-26-2022 09:51-0500 Body temperature 97.4 [degF] [facility] 08-26-2022 09:51-0500 Body weight 61.23 kg [facility] 08-26-2022 09:51-0500 Diastolic blood pressure 86 mm[Hg] [facility] 08-26-2022 09:51-0500 Heart rate 106 /min [facility] 08-26-2022 09:51-0500 SaO2% (BldA) [Mass fraction] 99 % [facility] 08-26-2022 09:51-0500 Systolic blood pressure 121 mm[Hg] [facility] 08-25-2022 16:19-0500 Body temperature 100.09 [degF] Moe Simons MD Work Phone: [facility] 08-25-2022 16:19-0500 Body weight 58.06 kg Moe Simons MD Work Phone: [facility] 08-25-2022 16:19-0500 Diastolic blood pressure 86 mm[Hg] Moe Simons MD Work Phone: [facility] 08-25-2022 16:19-0500 Heart rate 109 /min Moe Simons MD Work Phone: [facility] 08-25-2022 16:19-0500 Respiratory rate 18 /min Moe Simons MD Work Phone: [facility] 08-25-2022 16:19-0500 SaO2% (BldA) [Mass fraction] 100 % Moe Simons MD Work Phone: [facility] 08-25-2022 16:19-0500 Systolic blood pressure 120 mm[Hg] Moe Simons MD Work Phone: [facility] 06-24-2022 08:19-0400 Body temperature 97.9 [degF] Gus Munroe APRN.CNP Work Phone: [facility] 06-24-2022 08:19-0400 Body weight 61.33 kg Gus Pendlebury [employer].P[employer]ER INSERTER Work Phone: [facility] 06-24-2022 08:19-0400 Diastolic blood pressure 76 mm[Hg] Gus Pendlebury B[employer]KER.PAPER INSERTER Work Phone: [facility] 06-24-2022 08:19-0400 Heart rate 101 /min Gus Pendlebury [employer] MAKER.PAPER INSERTER Work Phone: [facility] 06-24-2022 08:19-0400 Respiratory rate 16 /min Gus Pendlebury B[employer] MAKER.PAPER INSERTER Work Phone: [facility] 06-24-2022 08:19-0400 SaO2% (BldA) [Mass fraction] 98 % Gus Pendlebury B[employer] MAKER.PAPER INSERTER Work Phone: [facility] 06-24-2022 08:19-0400 Systolic blood pressure 124 mm[Hg] Gus Pendlebury B[employer]ULT MAKER.PAPER INSERTER Work Phone: [facility] 01-17-2022 13:00-0400 Body temperature 97.7 [degF] Gus Pendlebury B[employer] MAKER.PAPER INSERTER Work Phone: [facility] 01-17-2022 13:00-0400 Body weight 60.06 kg Gus Pendlebury B[employer] MAKER.PAPER INSERTER Work Phone: [facility] 01-17-2022 13:00-0400 Diastolic blood pressure 60 mm[Hg] Gus Pendlebury B[employer] MAKER.PAPER INSERTER Work Phone: [facility] 01-17-2022 13:00-0400 Heart rate 90 /min Gus Pendlebury B[employer] MAKER.PAPER INSERTER Work Phone: [facility] 01-17-2022 13:00-0400 Respiratory rate 16 /min Gus Pendlebury B[employer] VAULT MAKER.PAPER INSERTER Work Phone: [facility] 01-17-2022 13:00-0400 SaO2% (BldA) [Mass fraction] 99 % Gus Pendlebury B[employer] MAKER.PAPER INSERTER Work Phone: [facility] 05-27-2022 13:00-0400 Systolic blood pressure 114 mm[Hg] Gus Munroe B[employer]KER.PAPER INSERTER Work Phone: [facility] Encounters Encounter Date Encounter Type Care Provider Facility Start: 03-13-2025 ambulatory Javier Terrys Facility:[facility] Start: 03-10-2025 ambulatory Mitzy Kaplan Facility: [facility] Start: 02-23-2025 End: 02-23-[address] Mitzy Fung MD Work Phone: -Ultrasound [facility] Start: 02-23-2025 End: 02-23-2025 Patient encounter procedure Teodoro Garcia DO -Ultrasound [facility] Work Phone: Start: 02-23-2025 End: 02-23-2025 ambulatory Teodoro Hagan Facility:[facility] Start: 02-21-2025 End: 02-21-2025 Emergency department patient [...] by physician Lois Conde MD Work Phone: [facility] Comment on above: Weight loss; Family history of type 2 diabetes mellitus Start: 09-07-2024 End: 09-07-2024 ambulatory LOIS Small [facility] Start: 08-29-2024 End: 08-29-2024 ambulatory LOIS CONDE [facility] Start: 08-29-2024 End: 08-29-2024 ambulatory Mitzy Kaplan Facility:[facility] Start: 08-27-2024 End: 08-27-2024 ambulatory [facility] Facility:[facility] Start: 08-27-2024 End: 08-27-2024 Patient encounter procedure Jasmin Enriquez APRN.PAPER INSERTER Work Phone: [facility] Comment on above: Sore throat (Primary Dx); Pharyngitis, unspecified etiology; Wheezing; Viral URI with cough; Bronchitis Start: 06-15-2024 End: 06-15-2024 ambulatory Leny Kianlucitafausto Facility:[facility] Start: 04-24-2024 End: 04-26-2024 Evaluation and management of inpatient NATANAEL HYDE Facility:[id number] Start: 04-23-2024 End: 04-24-2024 Emergency department patient visit Mitzy Waller Fung Facility:[facility] Start: 04-20-2024 End: 04-20-2024 ambulatory [facility] Start: 2024 End: 2024 Emergency department patient visit Teodororenetta Garcia Facility:[facility] Start: 04-12-2024 End: 04-12-2024 Emergency department patient visit Mitzy Kaplan Facility:[facility] Start: 01-26-2024 End: 01-26-2024 ambulatory [facility] Facility:[facility] Start: 01-26-2024 End: 01-26-2024 Patient encounter procedure Martínez Lyles APRN.PAPER INSERTER Work Phone: [facility] Comment on above: Ear pain, right (Tanya sadiq Dx) Start: 12-29-2023 End: 12-29-2023 ambulatory [facility] Facility:[facility] Start: 12-29-2023 End: 12-29-2023 Patient encounter procedure Jasmin Enriquez APRN.PAPER INSERTER Work Phone: [facility] Comment on above: Burning with urinati on (Primary Dx); Otalgia of right ear Start: 12-24-2023 End: 12-24-2023 Admission to same day surgery center [facility] Start: 12-24-2023 End: 12-24-2023 ambulatory [facility] Work Phone: Start: 11-14-2023 End: 11-14-2023 [facility] Start: 11-14-2023 End: 11-14-2023 ambulatory [facility] Facility:[facility] Start: 11-14-2023 End: 11-14-2023 Patient encounter procedure Loni Escobar [employer].PAPER INSERTER Work Phone: [facility] Comment on above: Pain in pelvis (Prim vivien Dx); Flank pain Start: 10-31-2023 Telephone encounter Moe Vines MD Work Phone: [facility] Comment on above: Results (Prince +) Start: 10-30-2023 End: 10-30-2023 [facility] Facility:[facility] Start: 10-30-2023 End: 10-30-2023 Patient encounter procedure Lillian Sanchez [employer].PAPER INSERTER Work Phone: [facility] Comment on above: Dysuria (Primary Dx) Start: 09-25-2023 End: 09-25-2023 [facility] Start: 08-02-2023 End: 08-02-2023 Nursing evaluation of patient and report [facility] Work Phone: [facility] Comment on above: Urinary frequency (P rimary Dx) Start: 07-30-2023 Telephone encounter Lillian ruffin [employer].PAPER INSERTER Work Phone: [facility] Comment on above: Results Start: 07-28-2023 End: 07-28-2023 Patient encounter procedure Ivonne Dawson [employer].PAPER INSERTER Work Phone: [facility] Comment on above: Urinary frequency (P rimary Dx) Start: 07-04-2023 End: 07-04-2023 Emergency department patient visit [facility] Work Phone: Start: 03-27-2023 End: 03-27-2023 ambulatory [facility] Work Phone: Start: 03-27-2023 End: 03-27-2023 Patient encounter procedure [facility] Work Phone: Start: 03-19-2023 End: 03-19-2023 ambulatory [facility] Work Phone: Start: 03-19-2023 End: 03-19-2023 Patient encounter procedure [facility] Work Phone: Start: 02-04-2023 End: 02-04-2023 Emergency department patient visit [facility] Start: 12-01-2022 End: 12-01-2022 Patient encounter procedure [facility] Start: 11-28-2022 End: 11-28-2022 Emergency department patient visit [facility] Start: 11-24-2022 End: 11-24-2022 Subsequent hospital visit by physician Codi Lemus APRN-PAPER INSERTER Work Phone: [facility] Comment on above: Hirsutism; Irregular menses Start: 11-18-2022 End: 11-18-2022 Admission to same day surgery center [facility] Start: 11-18-2022 End: 11-18-2022 ambulatory [facility] Work Phone: Start: 11-12-2022 End: 11-12-2022 Emergency department patient visit [facility] Start: 11-10-2022 End: 11-10-2022 ambulatory [facility] Work Phone: Start: 11-10-2022 End: 11-10-2022 Patient encounter procedure [facility]Stephanie Hilliard, [facility] Start: 08-26-2022 Telephone encounter Jasmin Clinton APRN.PAPER INSERTER Work Phone: [facility] Comment on above: Results Start: 08-26-2022 End: 08-26-2022 Emergency department patient visit [facility] Start: 08-25-2022 End: 08-25-2022 Patient encounter procedure Moe Simons MD Work Phone: [facility] Comment on above: Sore throat (Primary Dx); Influenza-like illness Start: 06-25-2022 Telephone encounter Lillian ruffin [employer].PAPER INSERTER Work Phone: [facility] Comment on above: Results, Lab Start: 06-24-2022 End: 06-24-2022 Patient encounter procedure Gus Munroe [employer].PAPER INSERTER Work Phone: [facility] Comment on above: Urinary frequency (P rimary Dx) Start: 01-17-2022 End: 01-17-2022 Patient encounter procedure Gus Munroe [employer].PAPER INSERTER Work Phone: [facility] Comment on above: Abdominal pain, unsp ecified abdominal location (Primary Dx); Acute sinusitis, recurrence not specified, unspecified location Start: 11-20-2006 Patient encounter status Gus Munroe [employer].PAPER INSERTER Work Phone: [facility] Work Phone: Procedures Date Procedure Procedure [...] 08-27-2024 STREP A MOLECULAR (POC) Loni Escobar [employer].PAPER INSERTER Work Phone: Start: 12-29-2023 Urnls dip stick/tabl et rgnt auto w/o microscopy Senait Kraus PA-C Work Phone: Start: 12-24-2023 Pelvic examination u nder anesthesia Start: 11-14-2023 Urine culture Start: 11-14-2023 CT of abdomen and pe lvis without contrast Start: 11-14-2023 Urnls dip stick/tabl et rgnt auto w/o microscopy Lillian Sanchez [employer].PAPER INSERTER Work Phone: Start: 10-30-2023 Urnls dip stick/tabl et rgnt auto w/o microscopy Jasmin Enriquez [employer].PAPER INSERTER Work Phone: Start: 07-28-2023 Urnls dip stick/tabl [...] of thyroid stimulating hormone tsh Codi Lemus [employer]-PAPER INSERTER Work Phone: Start: 11-18-2022 Local destruction of [...] et rgnt auto w/o microscopy Gus Munroe [employer]KER.PAPER INSERTER Work Phone: Bacteria identificat ion test Bacteria identified in Urine by Culture SARS-CoV-2 & FLU Ant igen (Rapid) SARS-CoV-2 & FLU Ant igen (Rapid) Urine culture Urine culture Plan of Treatment Date Care Activity Detail Author Start: 04-28-2027 Tetanus Diphtheria a nd Pertussis Vaccines (7 - Td or Tdap) Tetanus Diphtheria and Pertussis Vaccines (7 - Td or Tdap) [facility] Start: 04-28-2027 Urine microalbumin profile DTa P,Tdap,Td Vaccine (7 - Td or Tdap) [facility] Start: 02-21-2025 [facility] Start: 02-21-2025 [facility] Start: 02-05-2025 [facility] Start: 01-23-2025 [facility] Start: 01-20-2025 [facility] Start: 04-24-2024 COVID-19 (2023- 5 season) COVID-19 ( season) [facility] Start: 04-24-2024 Covid-19 Vaccine ( season) Covid-19 Vaccine ( season) [facility] Start: 04-24-2024 Influenza vaccination [facility] Start: 2024 Pneumococcal vaccination Pneum ococcal Vaccine (1 of 2 - PCV) [facility] Start: 03-10-2024 Well Visit Well Visit [facility] Start: 12-24-2023 Patient discharge [facility] Start: 11-14-2023 [facility] Start: 11-14-2023 Bacteria identified in Urine by Culture [facility] Start: 11-14-2023 [facility] Start: 09-25-2023 [facility] Start: 08-24-2023 Behavioral Health Screening Behavioral Health Screening [facility] Start: 08-24-2023 Depression Assessment Depression Ass essment [facility] Start: 07-30-2023 End: 10-29-2023 Bacteria identified in Urine by Culture URINE CULTURE Microbiology Routine Urinary frequency Expected: 07/30/2023, Expires: 10/29/2023 [facility] Work Phone: Comment on above: Expected: 07/30/2023 , Expires: 10/29/2023 Start: 07-04-2023 [facility] Start: 04-24-2023 Covid-19 Vaccine ( season) Covid-19 Vaccine () [facility] Start: 04-24-2023 Influenza vaccination Influenza Vacc ine (#1) [facility] Start: 2023 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 PCP 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 Disease Visit Annual PCP Team Chronic Disease Visit [facility] Start: 2023 Anxiety Screening Anxiety Screening [facility] Start: 2023 Chlamydia Screening (1824) Chlamydia Screening (18-) [facility] Start: 2023 Depression Screening Depression Scre ening [facility] Start: 2023 GC (Gonorrhea) Scree rosa (18-24) GC (Gonorrhea) Screening (18-24) [facility] Start: 2023 Hearing Screening Hearing Screening [facility] Start: 2023 Hepatitis C Screening Hepatitis C [facility] Start: 2023 Hepatitis C screening Hepatitis C [facility] Start: 2023 HIV Screening HIV Screening [facility] Start: 2023 HIV screening HIV Screening [facility] Start: 2023 PATH Education 18+ Years PATH Education 18+ Years [facility] Start: 2023 Screening for Chlamy edilia trachomatis Chlamydia Screening () [facility] Start: 2023 Spirometry Spirometry [facility] Start: 11-28-2022 [facility] Start: 11-18-2022 Anesthesia intraperi toneal lower abd w/laps nos ANESTH SURG LOWER ABDOMEN [facility] Start: 11-18-2022 Laps surg w/aspir cavity/cyst single/multiple LAPAROSCOPY ASPIRATION [facility] Start: 11-18-2022 Ambulation without limitation [facility] Start: 11-18-2022 Catheterization of vein [facility] Start: 11-18-2022 Medical regimen orde rs management [facility] Start: 11-18-2022 Medication education [facility] Start: 11-18-2022 Notification of physician [facility] Start: 11-18-2022 Oxygen therapy [facility] Start: 11-18-2022 End: 11-18-2022 Patient discharge [facility] Start: 11-18-2022 Procedure discontinued [facility] Start: 11-18-2022 Taking patient vital signs [facility] Start: 11-18-2022 Vital signs measurements [facility] Start: 11-18-2022 [facility] Start: 11-18-2022 Local destruction of ovary Lap aroscopic, Ovarian Cystectomy (Right) [facility] Start: 11-18-2022 Verification routine [facility] Start: 11-18-2022 Admission procedure [facility] Start: 11-18-2022 [facility] Start: 08-26-2022 [facility] Start: 08-24-2022 Depression Assessment Depression Ass essment [facility] Start: 04-26-2022 Well Visit Well Visit [facility] Start: 04-24-2022 FLU (#1) FLU (#1) [facility] Start: 04-24-2022 Influenza vaccination INFLUENZA (#1) [facility] Start: 10-21-2021 COVID-19 VACCINE (3 - Booster for Pfizer series) COVID-19 VACCINE (3 - Booster for Pfizer series) [facility] Start: 07-17-2021 COVID-19 (3 - Booste r for Pfizer series) COVID-19 (3 - Booster for Pfizer series) [facility] Start: 07-17-2021 COVID-19 VACCINE (3 - Booster for Pfizer series) COVID-19 VACCINE (3 - Booster for Pfizer series) [facility] Start: 05-24-2021 MenB (2 of 2 - MenB 2-Dose Series Bexsero) MenB (2 of 2 - MenB 2-Dose Series Bexsero) [facility] Start: 2021 MENINGOCOCCAL CONJUG ATE (1 - 2-dose series) MENINGOCOCCAL CONJUGATE (1 - 2-dose series) [facility] Start: 2020 CHLAMYDIA SCREENING (<18) CHLA MYDIA SCREENING (<18) [facility] Start: 2020 GC (GONORRHEA) SCREE ROSA (<18) GC (GONORRHEA) SCREENING (<18) [facility] Start: 2020 Hearing Screening Hearing Screening [facility] Start: 2020 PATH Education 15-17 + Years PATH Education 15-17+ Years [facility] Start: 2020 Vision Screening Vision Screening [facility] Start: 2019 PEDS TO ADULT TRANSI TION ANNUAL ASSESSMENT PEDS TO ADULT TRANSITION ANNUAL ASSESSMENT [facility] Start: 2017 Adult depression scr eening assessment DEPRESSION SCREENING [facility] Start: 2017 PATH Education 12-14 + Years PATH Education 12-14+ Years [facility] Start: 2017 PATH Transitional Assessment PATH Transitional Assessment [facility] Start: 2017 PEDS TO ADULT TRANSI TION INITIAL DISCUSSION PEDS TO ADULT TRANSITION INITIAL DISCUSSION [facility] Start: 2016 HPV VACCINE (1 - 2-d ose series) HPV VACCINE (1 - 2-dose series) [facility] Start: 2015 MENINGOCOCCAL B: Con lining scrubber based on risk (1 of 2 - Risk Bexsero 2-dose series) MENINGOCOCCAL B: Consider based on risk (1 of 2 - Risk Bexsero 2-dose series) [facility] Start: 2012 Urine microalbumin profile DTAP,TDAP ,TD (4 - Tdap) [facility] Start: 2011 PNEUMOCOCCAL (1 - PPSV23) PNEU MOCOCCAL (1 - PPSV23) [facility] Start: 2011 Pneumococcal vaccination [facility] Start: 2009 ASTHMA CONTROL TEST ASTHMA CONTROL T EST [facility] Start: 2009 MMR (2 of 2 - Standa rd series) MMR (2 of 2 - Standard series) [facility] Start: 2009 VARICELLA (2 of 2 - 2-dose childhood series) VARICELLA (2 of 2 - 2-dose childhood series) [facility] Start: 2007 ASTHMA ACTION PLAN ASTHMA ACTION VALERIE N [facility] Start: 2005 POLIO (1 of 3 - 4-do se series) POLIO (1 of 3 - 4-dose series) [facility] Bacteria identified in Urine by Culture URINE CULTURE Microbiology Routine Urinary frequency Ordered: 06/24/2022 [facility] Work Phone: Comment on above: Ordered: 06/24/2022 Bacteria identified in Urine by Culture Urine Culture [facility] Bacteria identified in Urine by Culture URINE CULTURE Microbiology Routine Urinary frequency 07/28/2023 7:38 PM EST [facility] Work Phone: Bacteria identified in Urine by Culture URINE CULTURE Microbiology Routine Dysuria Ordered: 10/30/2023 [facility] Work Phone: Comment on above: Ordered: 10/30/2023 Bacteria identified in Urine by Culture URINE CULTURE Microbiology Routine Burning with urination 12/29/2023 5:02 PM EDT [facility] Work Phone: BACTERIAL VAGINOSIS AMPLIFICATION BACTERIAL VAGINOSIS AMPLIFICATION Lab Routine Urinary frequency Ordered: 06/24/2022 [facility] Work Phone: Comment on above: Ordered: 06/24/2022 BACTERIAL VAGINOSIS NAAT BACTERI AL VAGINOSIS NAAT Lab Routine Dysuria Ordered: 10/30/2023 [facility] Work Phone: Comment on above: Ordered: 10/30/2023 PRINCE / TRICHOMONA S AMPLIFICATION PRINCE / TRICHOMONAS AMPLIFICATION Microbiology Routine Urinary frequency Ordered: 06/24/2022 [facility] Work Phone: Comment on above: Ordered: 06/24/2022 PRINCE/TRICHOMONAS NAAT PRINCE /TRICHOMONAS NAAT Lab Routine Dysuria Ordered: 10/30/2023 [facility] Work Phone: Comment on above: Ordered: 10/30/2023 COVID & INFLUENZA A/ B & RSV PCR, ROUTINE COVID & INFLUENZA A/B & RSV PCR, ROUTINE Microbiology Routine Viral URI with cough Ordered: 08/27/2024 [facility] Work Phone: Comment on above: Ordered: 08/27/2024 DHEA Sulfate DHEA Sulfate Lab Routine Hirsutism 11/24/2022 3:30 PM EDT [facility] Lactic acid measurement [facility] Patient Education [facility] Work Phone: Patient referral [facility] Work Phone: End: 11-24-2022 Sex Hormone Binding Globulin Sex Hormone Binding Globulin Lab Routine For lab collect this frequency defaults to the next routine lab draw time. Routine times: 0600; 1100; 1400; 1900; 2200 for 1 Occurrences starting 11/24/2022 until 11/24/2022 [facility] Work Phone: Comment on above: For lab collect this frequency defaults to the next routine lab draw time. Routine times: 0600; 1100; 1400; 1900; 2200 for 1 Occurrences starting 11/24/2022 until 11/24/2022 Sex Hormone Binding Globulin Sex Hormone Binding Globulin Lab Routine 11/24/2022 3:30 PM EDT [facility] Testosterone, free Testosterone, free Lab Routine Irregular menses 11/24/2022 3:30 PM EDT [facility] End: 09-07-2024 Transglutaminase IgA [facility] Work Phone: Comment on above: 1 Occurrences starti ng 09/07/2024 until 09/07/2024 [facility] Immunizations Immunization Date Immunization Notes Care Provider Mathew lopez 09-07-2024 influenza, seasonal, injectable, preservative free Lois Conde MD Work Phone: [facility] 03-10-2023 meningococcal B vacc ine, recombinant, OMV, adjuvanted Lois Conde MD Work Phone: [facility] 05-22-2021 PFIZER (purple cap) COVID-19, mRNA, LNP-S, 30mcg/0.3mL dose Denielle White [employer]-PAPER INSERTER Work Phone: [facility] 04-30-2021 influenza, injectabl e, quadrivalent, preservative free Denielle White [employer] MAKER-PAPER INSERTER Work Phone: [facility] 04-30-2021 PFIZER (purple cap) COVID-19, mRNA, LNP-S, 30mcg/0.3mL dose Denielle White [employer] MAKER-PAPER INSERTER Work Phone: [facility] 04-30-2021 influenza virus vacc ine, unspecified formulation Ivonne Dawson [employer] VA[employer] MAKER.PAPER INSERTER Work Phone: [facility] 04-26-2021 meningococcal B vacc ine, recombinant, OMV, adjuvanted Denielle White [employer] VA[employer] MAKER-PAPER INSERTER Work Phone: [facility] 04-26-2021 meningococcal polysaccharide (groups A, C, Y and W-135) diphtheria toxoid conjugate vaccine (MCV4P) [facility] Work Phone: [facility] 04-16-2020 hepatitis A vaccine, pediatric/adolescent dosage, 2 dose schedule Codi Lemus [facility] Work Phone: [facility] 04-16-2020 Human Papillomavirus 9-valent vaccine [facility] Work Phone: [facility] 04-29-2018 hepatitis A vaccine, pediatric/adolescent dosage, 2 dose schedule [facility] Work Phone: [facility] 04-29-2018 Human Papillomavirus 9-valent vaccine [facility] Mariah [facility] Work Phone: [facility] 06-30-2017 influenza, injectabl e, quadrivalent, preservative free [facility] Work Phone: [facility] 04-28-2017 meningococcal polysaccharide (groups A, C, Y and W-135) diphtheria toxoid conjugate vaccine (MCV4P) [facility] Work Phone: [facility] 04-28-2017 tetanus toxoid, redu lorie diphtheria toxoid, and acellular pertussis vaccine, adsorbed [facility] Work Phone: [facility] 05-14-2015 influenza, live, intranasal, quadrivalent [facility] Work Phone: [facility] 05-10-2014 influenza, live, intranasal, quadrivalent [facility] Work [facility]: [facility] 04-22-2012 influenza virus vacc ine, split virus (incl. purified surface antigen) [facility] Work Phone: [facility] 06-07-2010 influenza virus vacc ine, split virus (incl. purified surface antigen) [facility] Work Phone: [facility] 05-10-2010 diphtheria, tetanus toxoids and acellular pertussis vaccine Codi Lemus [employer] MAKER-PAPER INSERTER Work Phone: [facility] 05-10-2010 influenza virus vacc ine, split virus (incl. purified surface antigen) Denaishwarya Lemus [employer] VAULT MAKER-PAPER INSERTER Work Phone: [facility] 05-10-2010 measles, mumps, rube lla, and varicella virus vaccine Denaishwarya Lemus [employer] VA[employer] MAKER-PAPER INSERTER Work Phone: [facility] 05-10-2010 poliovirus vaccine, inactivated Denaishwarya Lemus B[employer] VAULT MAKER-PAPER INSERTER Work Phone: [facility] 11-26-2006 diphtheria, tetanus toxoids and acellular pertussis vaccine Gus Munroe B[employer]IAL VAULT [employer].[facility] Work Phone: [facility] Work Phone: 11-26-2006 pneumococcal conjuga te vaccine, 7 valent Gus Munroe B[employer] VA[employer] MAK[employer].PAPER INSERTER Work Phone: [facility] Work Phone: 11-26-2006 varicella virus vaccine Yaron windy Munroe B[employer].[facility] Work Phone: [facility] Work Phone: 06-08-2006 haemophilus influenz ae type b vaccine, HbOC conjugate Gus Munroe B[employer]IAL VA[employer].[facility] Work Phone: [facility] Work Phone: 06-08-2006 haemophilus influenz ae type b vaccine, PRP-T conjugate Codi Mariah B[employer] VA[employer] MAKER-PAPER INSERTER Work Phone: [facility] 06-08-2006 measles, mumps and rubella virus vaccine Gus Munroe B[employer]IAL VAULT MAK[employer].[facility] Work Phone: [facility] Work Phone: 06-08-2006 pneumococcal conjuga te vaccine, 7 valent Gus Munroe B[employer] VAULT MAKER.PAPER INSERTER Work Phone: [facility] Work Phone: 02-20-2006 pneumococcal conjuga te vaccine, 7 valent Jaradle White B[employer] VAULT MAKER-PAPER INSERTER Work Phone: [facility] 2005 diphtheria, tetanus toxoids and acellular pertussis vaccine Denalbertole White B[employer] VAULT MAKER-PAPER INSERTER Work Phone: [facility] 2005 DTaP-hepatitis B and poliovirus vaccine Denaishwarya White B[employer] VAULT MAKER-PAPER INSERTER Work Phone: [facility] 2005 haemophilus influenz ae type b vaccine, PRP-T conjugate [facility] B[employer] VAULT MAKER-PAPER INSERTER Work Phone: [facility] 2005 hepatitis B vaccine, pediatric or pediatric/adolescent dosage Denaishwarya White B[employer] VAULT MAKER-PAPER INSERTER Work Phone: [facility] 2005 pneumococcal conjuga te vaccine, 7 valent Codi White B[employer] VAULT MAKER-PAPER INSERTER Work Phone: [facility] 2005 poliovirus vaccine, inactivated Denaishwarya White B[employer] VAULT MAKER-PAPER INSERTER Work Phone: [facility] 2005 diphtheria, tetanus toxoids and acellular pertussis vaccine Codi Lemus B[employer] VAULT MAKER-PAPER INSERTER Work Phone: [facility] 2005 haemophilus influenz ae type b vaccine, PRP-T conjugate Denaishwarya Lemus B[employer] VAULT MAKER-PAPER INSERTER Work Phone: [facility] 2005 poliovirus vaccine, inactivated Denaishwarya White B[employer]IAL VAULT MAKER-PAPER INSERTER Work Phone: [facility] 2005 diphtheria, tetanus toxoids and acellular pertussis vaccine Denaishwarya Lemus B[employer] VAULT MAKER-PAPER INSERTER Work Phone: [facility] 2005 haemophilus influenz ae type b vaccine, PRP-T conjugate [facility] B[employer]IAL VAULT MAKER-PAPER INSERTER Work Phone: [facility] 2005 hepatitis B vaccine, pediatric or pediatric/adolescent dosage Denieljoann White B[employer] VAULT MAKER-PAPER INSERTER Work Phone: [facility] 2005 poliovirus vaccine, inactivated Codi Lemus B[employer] MAKER-PAPER INSERTER Work Phone: [facility] 2005 poliovirus vaccine, unspecified formulation Codi Lemus B[employer] VAULT MAKER-PAPER INSERTER Work Phone: [facility] 2005 hepatitis B vaccine, pediatric or pediatric/adolescent dosage Codi Lemus B[employer] MAKER-PAPER INSERTER Work Phone: [facility] Payers Date Payer Category Payer Self-pay [id number] 2022 Unknown [id number] 2021 Unknown [id number] 2006 Medicaid [employer] [id number] 2006-Present [phone] [address] [place] [address] Medicaid [id number] 2006 Medicaid [id number] 2005 Unknown [id number] 2005 Unknown [id number] 2005 Unknown [id number] 2005 Unknown [id number] Unknown [facility] [id number] Unknown [id number] Unknown [id number] Unknown [id number] Unknown [id number] Unknown [id number] Unknown [id number] Unknown [id number] Unknown [id number] Unknown [id number] Unknown [id number] Unknown [id number] Unknown [id number] Social History Date Type Detail Facility Start: 07-04-2019 End: 06-27-2022 Tobacco smoking status SCIS Never smoked tobacco [facility] Work Phone: Start: 07-04-2019 End: 06-27-2022 Tobacco use and exposure Smokeless tobacco non-user [facility] Work Phone: Start: 2005 Sex Assigned At Not on file [facility] Start: 01-07-2022 End: 06-24-2022 Exposure to SARS-CoV-2 (event) Not sure [facility] History of tobacco use Passive smoker [facility] Start: 08-26-2022 End: 12-21-2023 Tobacco smoking status NHIS Unknown if ever smoked [facility] Start: 12-11-2020 None [facility] Start: 12-11-2020 With Family [facility] Start: 2005 Sex Assigned At Female W [facility] Start: 10-15-2022 End: 09-07-2024 Alcohol intake Lifetime non-drinker (finding) [facility] Start: 10-15-2022 End: 03-10-2023 Alcohol intake [facility] Start: 10-15-2022 End: 03-10-2023 Tobacco use panel [facility] Adolescent depressio n screening assessment 7 [facility] Start: 01-20-2025 End: 02-21-2025 Tobacco smoking status NHIS Smokes tobacco daily (finding) [facility] NEGATED: Highlighted row [facility] Goals Date Patient Goal Desired Activity /State Functional Status Date Assessment Result Facility 07-20-2019 Are you deaf, or do you have serious difficulty hearing No 07/20/2019 2:00 AM EST No [facility] 07-20-2019 Are you blind, or do you have serious difficulty seeing, even when wearing glasses Yes 07/20/2019 2:00 AM EST Regla Mae RN Yes [facility] 07-20-2019 Do you have serious difficulty walking or climbing stairs Yes 07/20/2019 2:00 AM EST Yes [facility] 07-20-2019 Do you have difficul ty dressing or bathing No 07/20/2019 2:00 AM EST No [facility] 07-20-2019 Because of a physica l, mental, or emotional condition, do you have difficulty doing errands alone such as visiting a physician's office or shopping 07/20/2019 2:00 AM EST [facility] Mental Status Date Assessment Result Facility 12-24-2023 Cognitive function Voice/Name;Touch/Shaki ng [facility] Work Phone: 02-04-2023 Cognitive function Level Of Cons ciousness Awake;Alert;Appropriate;Fol lows Commands [facility] Work Phone: 11-18-2022 Cognitive function Voice/Name [facility] Work Phone: 07-20-2019 Because of a physica l, mental, or emotional condition, do you have serious difficulty concentrating, remembering, or making decisions Yes 07/20/2019 2:00 AM EST Yes [facility] Clinical Notes 01-17-2022 to 02-26-2025 Addendum Note - Jasmin Enriquez APRN.PAPER INSERTER - 08/27/2024 1:23 PM ESTAddendum Note - Jasmin Enriquez APRN.CNP - 08/27/2024 1:23 PM SPENCERBeNasrin carroll LPN - 08/27/2024 1:03 PM EST Note Date & Type Note Facility 02-26-2025 Radiology Diagnostic study note [facility] Imaging Services [address] [place], [place] [address] Pelvic w/ Transvaginal MR#: [id number] Acct: [id number] Name: LUIS BARAJAS Rep #: [id number] : 2005 F 19 From: Pet er Peer DO PCP: Dr. Mitzy Fung MD Status: REG CLI Study:Pelvic w/ Transvaginal Date of Exam: 02/23/25 Exam# [id number] Ordering Dr: Jess Garcia DO PROCEDURE: PELVIC [...] finding is frequently physiologic,but nonspecific. Reading Location: [facility] CC: Dr. Mitzy Fung MD; DO Liz Ng Seed Corn Production Manager: Signed [facility] 02-05-2025 Discharge summary [facility] 02-05-2025 Radiology Diagnostic study note [facility] Imaging Services [address] [place] [address] Abdomen/Pelvis W IV Cont ONLY MR#: [id number] Acct: [id number] Name: LUIS BARAJAS Rep #: [id number] : 2005 F 19 From: Lisette Henriquez MD PCP: Dr. Mitzy Fung MD Status: REG ER Study:Abdomen/Pelvis W IV Cont ONLY Date of E xam: 02/05/25 Exam# [id number] Ordering Dr: Arturo Hernandez MD PROCEDURE: ABDOMEN/PELVIS [...] patient's symptoms and urinalysis recommended. Reading Location: [id number] CC: Dr. Arturo Hernandez MD; Dr. Mitzy Fung MD ~ Seed Corn Production Manager: Signed [facility] 02-05-2025 Hospital Discharge instructions Additional Instructions Try taking MiraLAX to help with your constipation. Follow-up with Dr. Ruano regarding the thickened bladder wall on your CT scan. Return with new or worsening symptoms. Otherwise follow-up with your primary care provider in the next 3 to 5 days if not improving. [facility] Work Phone: 01-23-2025 Discharge summary [facility] 01-20-2025 Radiology Diagnostic study note [facility] Imaging Services [address] [place] [address] CT Chest, Abd, Pel w/Contrast MR#: [id number] Acct: [id number] Name: LUIS BARAJAS Rep #: [id number] : 2005 F 19 From: Luanne Sharma MD PCP: Dr. Mitzy Fung MD Status: REG ER Study:CT Chest, Abd, Pel w/Contrast Date of E xam: 01/20/25 Exam# [id number] Ordering Dr: Javier Isabel DO PROCEDURE: CT [...] on series 2, image 66. Reading Location: [facility] CC: Dr. Javier Isabel DO; Dr. Mitzy Fung MD ~ Seed Corn Production Manager: Signed [facility] 08-27-2024 Note Addended by: JASMIN SAUCEDO on: 08/27/2024 01:23 PM Modules accepted: Orders [facility] 08-27-2024 Miscellaneous Notes Addended by: JASMIN ENRIQUEZ on: 08/27/2024 01:23 PM Modules accepted: Orders documented in this encounter [facility] 08-27-2024 Note HNO ID: [id number] Author: NASRIN VILLAVICENCIO LPN Service: ? Author Type: LICENSED NURSE Type: Progress Notes Filed: 08/27/2024 13:04 Note Text: 2.5 solution aerosol treatment given per provider's orders. Prior to treatment O2 sat is 97%. Treatment completed. O2 sat is 100%. Tolerated well. Nasrin Villavicencio LPN [facility] 08-27-2024 History of Present illness Narrative [...] Discussed expected course of illness Jasmin Enriquez APRN.PAPER INSERTER documented in this encounter [facility] 08-27-2024 Note HNO ID: [id number] Author: JASMIN ENRIQUEZ APRN.CELINE Service: ? Author [...] as prescribed. 4. (more content not included)... [facility] 08-27-2024 Instructions Jasmin Enriquez, ALEX.PAPER INSERTER - 08/27/2024 12:08 PM EST ASSESSMENT/PLAN: 1. [...] Discussed expected course of illness Jasmin Enriquez APRN.PAPER INSERTER Previous hospitalization care team: Attending Provider: Ernestina Lanza MD (attending for admission) Consulting: Tirso Richey MD (ENT) Consulting: Jason Uriostegui MD (infectious disease) documented in this encounter [facility] 04-25-2024 Note HNO ID: [id number] Author: ERNESTINA LANZA MD Service: Hospital Medicine [...] PCOS, asthma, URIEL. Patient was transferred from [facility] hospital today for concerns of 2 [...] sore throat associated with dysphagia At the [place] ED CT neck with IV contrast showing [...] PIV CODE STA (more content not included)... [facility] 04-25-2024 Note HNO ID: [id number] Author: TIRSO RICHEY MD Service: Otolaryngology Author [...] with me as needed. Tirso Richey MD [facility] 01-26-2024 Note HNO ID: [id number] Author: MARTÍNEZ LYLES APRN.PAPER INSERTER Service: ? Author Type: Nurse Practitioner Type: Progress Notes Filed: 01/26/2024 16:37 Note Text: This note was created using [employer]. Subjective Luis Barajas is a 18 year [...] or Tylenol as needed for pain. Martínez Lyels APRN.[facility] 01-26-2024 History of Present illness Narrative This note was created using [employer]. April Barajas is a 18 year old [...] Martínez Lyles APRN.CELINE documented in this encounter [facility] 12-29-2023 Note HNO ID: [id number] Author: JASMIN ENRIQUEZ APRN.PAPER INSERTER Service: ? Author Type: Nurse Practitioner Type: [...] Discussed expected course of illness Jasmin Enriquez APRN.[facility] 12-29-2023 History of Present illness Narrative [...] Discussed expected course of illness Jasmin Enriquez APRN.PAPER INSERTER documented in this encounter [facility] 12-29-2023 Instructions Jasmin Enriquez APRN.PAPER INSERTER - 12/29/2023 5:06 PM EDT ASSESSMENT/PLAN: 1. [...] Discussed expected course of illness Jasmin Enriquez APRN.[facility] C[facility] PATIENT INFO BLADDER INFECTION OVERVIEW [...] have an infection. documented in this encounter [facility] 12-24-2023 Procedure note [facility] 11-14-2023 Discharge summary Note Date/Time November 14, 2023 1:42pm [facility] Medical Records Department [address] [place] [address] Emergency Department Summary 11/14/23 MR#: [id number] Acct: [id number] Name: LUIS BARAJAS Rep #:[id number] : 2005 18 From: Alexis Farfan MD [...] was seen 2 weeks ago at the [facility] urgent care diagnosed with urinary tract infection. [...] similar symptoms: Yes Recent Illness/Hospitalization: Yes PFSH PFS Medical History (Updated 11/14/23 @ 18:17 by [...] (Auto) 65.2 H Lymph % (Auto) 27.1 [place] % (Auto) 5.1 Eos % (Auto) 1.7 [...] Sl. Cloudy Urine pH 6.5 Ur Specific [place] 1.015 Urine Protein 30 H Urine Glucose [...] your Primary Care Provider. Call [facility] ([phone]) or report to the closest Emergency Room. Call 911 if necessary. 11/14/231817 <Electronically signed by Alexis Farfan MD> Cosigner Signature (if applicable): CC: Dr. Mitzy Fung MD ~ Signed [facility] Work Phone: 1(240) 647-552203-23-2024 NoteHNO ID: [id number] Author: LONI ESCOBAR APRN.CNP Service: ? Author Type: Nurse Practitioner Type: Progress Notes Filed: 11/14/2023 12:51 Note Text: Complaints of severe right flank pain. Patient says she has passed 2 hard [place] objects through her urethra. Patient says she [...] evaluation mother was okay with this care plan.[facility]03-23-2024 History of Present illness Narrative* Loni Escobar APRN.CNP - 11/14/2023 12:50 PM EDT Complaints of severe right flank pain. Patient says she has passed 2 hard [place] objects throughher urethra. Patient says she feels [...] with this care plan. [facility] Miscellaneous Notes* Telephone Encounter - Davis, M Abraham, RN - 11/02/2023 2:14 PM EDT Pt [...] is pending; continue nitrofurantoin. [facility]2024 NoteHNO ID: [id number] Author: LILLIAN SANCHEZ APRN.PAPER INSERTER Service: ? Author Type: Nurse Practitioner Type: Progress Notes Filed: 10/30/2023 16:18 Note Text: This note was created using [employer]. Subjective Luis Barajas is a 18 year [...] history is provided by the patient. No overhead worker was used. UTI This is a new [...] soft. There is n (more content not included)...[facility]03-08-2024 History of Present illness Narrative* Lillian Sanchez APRN.PAPER INSERTER - 10/30/2023 4:02 PM EST This note was created using [employer]. April Barajas is a 18 year old [...] history is provided by the patient. No overhead worker was used. UTI This is a new [...] NAAT - BACTERIAL VAGINOSIS NAAT Lillian Sanchez APRN.PAPER INSERTER [facility] Nurse Note* Brigette Rincon MA - 08/02/2023 11:02 AM EST Pt returned for a urine culture recheck, due to contamination. Brigette Rincon MA [facility]23 Miscellaneous Notes* Telephone Encounter - Leta [...] PCP for continued symptoms. [facility]23 History of Present illness Narrative* Ivonne [...] CULTURE - CONSULT TO UROLOGY Ivonne Dawson APRN.PAPER INSERTER [facility] 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 Alfreda Clements. Patient took naproxen [...] pain restarted 2 hours prior to evaluation. [facility] Medical History (Updated 11/28/22 @ 18:46 [...] with a ruptured ovarian cyst as well. Mittedavidchmerz is also in the differential diagnosis here. Discussed with Dr. Alfreda Clements again who agrees with discharging her home with close outpatient follow-up, it sounds like she is also following up with gynecology specialist [facility]', I encouraged mom to keep that appointment. [...] % (Auto) 62.9 Lymph % (Auto) 29.3 [place] % (Auto) 5.6 Eos % (Auto) 1.5 [...] Sl. Cloudy Urine pH 8.0 Ur Specific [place] 1.015 Urine Protein Negative Urine Glucose (UA) [...] your Primary Care Provider. Call [facility] ([phone]) or report to the closest Emergency Room. Call 911 if necessary. 11/28/22 1852 <Electronically signed by Vishal De La Torre MD> Cosigner Signature (if applicable): CC: Dr. Mitzy Fung MD; Dr. Mara Clements MD ~ Signed [facility] Work Phone: 1(265) 399-804303-28-2023 Procedure [facility] 11-18-2022 History and physical note Author Dr. Clements [facility] November 18, 2022 3:01am Note Date/Time November 18, 2022 12: 23am [facility] Medical Records Department [address] [place] [address] History & Physical Exam 11/18/22 0017 MR#: [id number] Acct: [id number] Name: LUIS BARAJAS Rep #:[id number] : 2005 17 From: Mara villegas MD PCP: Dr. Mitzy Fung MD Status:[facility] Location: [place] [address] HPI - General General Date of Service: [...] antibiotics for UTI diagnosed 2 weeks ago. COUNTS INCLUDE 234 BEDS AT THE [facility] Medical History ADHD Asthma Home Medications [...] (Auto) 41.2, Lymph % (Auto) 50.2 H, [place] % (Auto) 6.4 H, Eos % (Auto) [...] Fung MD; Dr. Mara Clements MD~ Signed [facility] Work Phone: 1(375) 734-657901-03-2023 Miscellaneous Notes* Telephone Encounter - Nasrin Villavicencio [...] AM EST ----- Message from Jasmin Enriquez APRN.PAPER INSERTER sent at 08/26/2022 7:21 AM EST ----- Please advise parent of Luis the COVID, flu, RSV test is negative. documented [facility]23 History of Present illness Narrative* Moe [...] ROUTINE Moe Simons MD documented in this encounter[facility]11-02-2022 Miscellaneous Notes* Telephone Encounter - Stefany Olivo - 06/25/2022 11:14 AM EDT Patient given results and verbalized understanding of instructions given. Stefany Olivo * Telephone Encounter - Lillian Sanchez APRN.CELINE - 06/25/2022 10:02 AM EDT Patient tested positive for BV. Flagyl sent into [facility]. Please reach out and inform patient. This is not an STI. [facility]11-[facility]-2022 History of Present illness Narrative* Gus Munroe APRN.CELINE - 06/24/2022 8:33 AM EDT Subjective HPI [...] care. Gus Munroe APRN.CELINE documented in this encounter[facility]05-27-2022 History of Present illness Narrative* Gus Munroe APRN.CELINE - 01/17/2022 1:04 PM EDT Subjective HPI [...] ICD10: R10.9 (primary diagnosis) - CONSULT TO AIRBRUSH ARTIST TECHNICAL 2. Acute sinusitis, recurrence not specified, unspecified location - ICD9: 461.9, ICD10: J01.90 Patient diagnosed with maxillary sinusitis. Patient was placed on amoxicillin. Will follow up with PCP for reevaluation 2 to 3 days symptoms are not improving. Additionally patient will be referred to AIRBRUSH ARTIST TECHNICAL. Patient states she has had ongoing suprapubic tenderness ever since she has been diagnosedwith a UTI this has been several months ago. Red flags for prompt reevaluation discussed. Will be seen in urgent care or ED for any new or worsening symptoms. Patient/mother verbalized understanding agrees with plan of care Gus Munroe APRN.CELINE [facility] Dr. Clements [facility] November 18, 2022 3:17am Note Date/Time November 18, 2022 3:[address] [facility] Medical Records Department [address] [place] [address] Instructions for Home/Discharge Instructions 11/18/22310 MR#: [id number] Acct: [id number] Name: LUIS BARAJAS Rep #:[id number] : 2005 17 From: Mara villegas MD PCP: Dr. Mitzy Fung MD Status:REG [facility] Discharge Instructions Diet Discharge Diet: No restrictions [...] Mara Allen MD When: Follow up with [facility] as scheduled or call [phone] Alfreda Clements Test [...] CC: Dr. Mitzy Fung MD ~ Signed [facility] Work Phone: Discharge summary Author Leny Ruano [facility] December 24, 2023 9:01am Note Date/Time December 24, 2023 9:01am [facility] Medical Records Department [address] [place] [address] [place] [address] Instructions for Home/Discharge Instructions 12/24/23 09 MR#: [id number] Acct: [id number] Name: LUIS BARAJAS Rep #:[id number] : 2005 18 From: Leny Robison PCP: Dr. Mitzy Fung MD Status:REG SDC Discharge Instructions Diet Discharge Diet: No restrictions [...] Order can be placed): Home, Self Care 12/24/23900<Electronically signed by Leny Ruano MD>Leny Ruano MD CC: Dr. Mitzy Fung MD ~ Signed [facility] Work Phone: Discharge summary Author Yaron Peralta [facility] Note Date/Time January 23, 2025 10:[address] [facility] Medical Records Department [address] [place] [address] Emergency Department Summary 01/23/25 MR#: [id number] Acct: [id number] Name: LUIS BARAJAS Rep #:[id number] : 2005 19 From: Yaron Peralta MD [...] Toradol. We do long discussion show follow-up withOB/SEARCH ENGINE MARKETING MANAGER for her endometriosis. She will follow-up with [...] Sl. Cloudy Urine pH 6.5 Ur Specific [place] 1.010 Urine Protein 15 H Urine Glucose [...] Counseling. Support groups. Follow-up with a local AIRBRUSH ARTIST TECHNICAL for your pelvic pain and endometriosis. Print Language: Korean Disposition Disposition: Home, Self Care What to do if you have Problems For any increased pain, shortness of breath, bleeding, nausea or vomiting, chestpain, or any unexpected problems, contact your Primary Care Provider. Call [facility] ([phone]) or report to the closest Emergency Room. Call 911 if necessary. 01/23/25 1043 <Electronically signed by Yaron Peralta MD> Cosigner Signature (if applicable): CC: Dr. Mitzy Fung MD ~ Signed [facility] Work Phone: Discharge summary Author Arturo Hernandez [facility] Note Date/Time February 05, 2025 11:[address] [facility] Medical Records Department [address] [place] [address] Emergency Department Summary 02/05/25 MR#: [id number] Acct: [id number] Name: LUIS BARAJAS Rep #:[id number] : 2005 19 From: Arturo Hernandez MD [...] quadrant abdominal pain. No fevers or chills. [facility] Medical History Wears glasses Bipolar disorder [...] to gas, butshe will also start MiraLAX [id number]. Follow-up with primary care. Return instructions reviewed. [...] % (Auto) 48.7 Lymph % (Auto) 40.5 [place] % (Auto) 6.3 Eos % (Auto) 3.4 [...] Clarity Clear Urine pH 7.0 Ur Specific [place] 1.005 Urine Protein 30 H Urine Glucose [...] patient's symptoms and urinalysis recommended. Reading Location: [facility] Discharge Plan Triage Chief Complaint: [...] 5 days if not improving. Print Language: Korean Disposition Disposition: Home, Self Care What to do if you have Problems For any increased pain, shortness of breath, bleeding, nausea or vomiting, chestpain, or any unexpected problems, contact your Primary Care Provider. Call [facility] ([phone]) or report to the closest Emergency Room. Call 911 if necessary. 02/05/25 1157 <Electronically signed by Arturo Hernandez MD> Cosigner Signature (if applicable): CC: Dr. Mitzy Fung MD ~ Signed [facility] Work Phone: Evaluation note* Diagnosis Abdominal pain, unspecified abdominal location- Primary Acute sinusitis, recurrence not specified, unspecified location documented in this encounter [facility] note* Diagnosis Urinary frequency- Primary documented in this encounter [facility] noteNo assessment information availableWAvita Health System Work Phone: Evaluation note* Diagnosis Sore throat- Primary Acute pharyngitis Influenza-like illness Influenza with other respiratory manifestations documented in this encounter [facility] note* Diagnosis Onset Date Resolution Status Ovarian torsion acute [facility] Work Phone: Evalunwpfh note* Diagnosis Hirsutism Irregular menses Irregular menstrual cycle documented [facility] this encounter [facility] [place] [facility]* Diagnosis Urinary frequency- Primary documented in this encounter [facility] note* Diagnosis Urinary frequency- Primary [facility] Diagnosis Urinary frequency- Primary [facility] [place] [facility]* Diagnosis Dysuria- Primary [facility]* Diagnosis Pain in pelvis- Primary Flank pain Abdominal pain, unspecified site [facility]* Diagnosis Burning with urination- Primary Dysuria Otalgia of right ear Otalgia, unspecified documented [facility] this encounter [facility] [place] [facility]* Diagnosis Ear pain, right- Primary Otalgia, unspecified [facility]* Diagnosis Sore throat- Primary Acute pharyngitis Pharyngitis, unspecified etiology Wheezing Viral URI with cough Acute upper respiratory infections of unspecified site Bronchitis Bronchitis, not specified as acute or chronic documented [facility] this encounter [facility] [place] [facility]* Diagnosis Weight loss Loss of weight Family history of type 2 diabetes mellitus Family history of diabetes mellitus [facility] Additional Instructions For your pelvic and endometriosis pain alternate Motrin and Tylenol. Ativan as needed for your anxiety. Do not drink alcohol or drive while taking it. Follow-up with the counseling center for your anxiety. Otherwise to help deal with anxiety. Read about it and learn about it. Exercise. Breathing techniques. Walking. Reading. Counseling. Support groups. Follow-up with a local AIRBRUSH ARTIST TECHNICAL for your pelvic pain and endometriosis.[facility] Work Phone: Hospital Discharge instructionsAdditional Instructions Please obtain your outpatient ultrasound to further assess any cause of your pelvic pain. Follow-up with AIRBRUSH ARTIST TECHNICAL for further evaluation and return to the ER should you have any further concernsWAvita Health System Work Phone: Reason for referral (narrative)No reason for referral information availableWAvita Health System Work Phone: Reason for Referral Specialty Diagnoses / Procedures Referred By Yamile seth Referred To Contact Diagnoses Abdominal pain, unspecified abdominal location Procedures CONSULT TO AIRBRUSH ARTIST TECHNICAL OFFICE/OUTPATIENT [facility] 60-74 MINUTES Gus Munroe APRN.PAPER INSERTER [address] [place] [address] Referral ID Status Reason Start Date Expiration Date Visits Requested Visits Authorized [id number] Authorized PCP Requested Referral Auto-Generate d Referral 01/17/2022 01/17/2023 1 1 Specialty Diagnoses / Procedures Referred By Yamile seth Referred To Contact Urology Diagnoses Urinary frequency Procedures CONSULT TO UROLOGY OFFICE/OUTPATIENT [facility] 60-74 MINUTES Ivonne Dawson APRN.PAPER INSERTER [address] [place] [address] Referral ID Status Reason Start Date Expiration Date Visits Requested Visits Authorized [id number] Authorized PCP Requested Referral 07/28/2023 07/27/2024 1 [...] No May 09, 2016 5:08pm Power of Meteorological Aide No April 5:08pm Advance Directive Response Recorded Date/ Time Living Will No May 09, 2016 6:08pm Power of Meteorological Aide No April 6:08pm Advance Directive Response Recorded Date/ Time Living Will No September 25 4:30am Power of Meteorological Aide No September 25, 2023 4:30am Advance Directive Response Recorded Date/ Time Living Will No November 14, 2023 2:18pm Power of Meteorological Aide No November 13 2:18pm Advance Directive Response Recorded Date/ Time Living Will No December 21, 2023 1:59pm Power of Meteorological Aide No December 20 1:59pm Date Activated Date Inactivated Comments 04/24/2024 9:55 AM 04/26/2024 3:43 PM Question Answer Comments Full Code Order Discussed With: Patient Advance Directive Response Recorded Date/ Time Do you have a Healthcare Power of Meteorological Aide? No January 20, 2025 3:51pm Advance Directive Response Recorded Date/ Time Do you have a Healthcare Power of Meteorological Aide? No January 20, 2025 3:51pm Do you have a Healthcare Power of Meteorological Aide? No January 23, 2025 9:37am Advance Directive Response Recorded Date/ Time Do you have a Healthcare Power of Meteorological Aide? No January 20, 2025 3:51pm Do you have a Healthcare Power of Meteorological Aide? No January 23, 2025 9:37am Do you have a Healthcare Power of Meteorological Aide? No February 05, 2025 9:55am Advance Directive Response Recorded Date/ Time Do you have a Healthcare Power of Meteorological Aide? No January 20, 2025 3:51pm Do you have a Healthcare Power of Meteorological Aide? No January 23, 2025 9:37am Do you have a Healthcare Power of Meteorological Aide? No February 05, 2025 9:55am Do you have a Healthcare Power of Meteorological Aide? No February 21, 2025 1:00am Health Concerns [...] or prosecute any alcohol or drug abuse patient.[facility] HospitalIn the event this information is protected by the Federal Confidentiality of Alcohol and Drug Abuse Patient Records regulations: The Federal rules restrict any use of the information to criminally investigate or prosecute any alcohol or drug abuse patient.[facility] HospitalIn the event this information is protected by the Federal Confidentiality of Alcohol and Drug Abuse Patient Records regulations: The Federal rules restrict any use of the information to criminally investigate or prosecute any alcohol or drug abuse patient.[facility] HospitalIn the event this information is protected by the Federal Confidentiality of Alcohol and Drug Abuse Patient Records regulations: The Federal rules restrict any use of the information to criminally investigate or prosecute any alcohol or drug abuse patient.[facility] HospitalIn the event this information is protected by the Federal Confidentiality of Alcohol and Drug Abuse Patient Records regulations: The Federal rules restrict any use of the information to criminally investigate or prosecute any alcohol or drug abuse patient.[facility] HospitalIn the event this information is protected by the Federal Confidentiality of Alcohol and Drug Abuse Patient Records regulations: The Federal rules restrict any use of the information to criminally investigate or prosecute any alcohol or drug abuse patient.[facility] HospitalIn the event this information is protected by the Federal Confidentiality of Alcohol and Drug Abuse Patient Records regulations: The Federal rules restrict any use of the information to criminally investigate or prosecute any alcohol or drug abuse patient.[facility] HospitalIn the event this information is protected by the Federal Confidentiality of Alcohol and Drug Abuse Patient Records regulations: The Federal rules restrict any use of the information to criminally investigate or prosecute any alcohol or drug abuse patient.[facility] HospitalIn the event this information is protected by the Federal Confidentiality of Alcohol and Drug Abuse Patient Records regulations: The Federal rules restrict any use of the information to criminally investigate or prosecute any alcohol or drug abuse patient.[facility] HospitalIn the event this information is protected by the Federal Confidentiality of Alcohol and Drug Abuse Patient Records regulations: The Federal rules restrict any use of the information to criminally investigate or prosecute any alcohol or drug abuse patient.[facility] HospitalIn the event this information is protected by the Federal Confidentiality of Alcohol and Drug Abuse Patient Records regulations: The Federal rules restrict any use of the information to criminally investigate or prosecute any alcohol or drug abuse patient.[facility] HospitalIn the event this information is protected by the Federal Confidentiality of Alcohol and Drug Abuse Patient Records regulations: The Federal rules restrict any use of the information to criminally investigate or prosecute any alcohol or drug abuse patient.[facility] HospitalIn the event this information is protected by the Federal Confidentiality of Alcohol and Drug Abuse Patient Records regulations: The Federal rules restrict any use of the information to criminally investigate or prosecute any alcohol or drug abuse patient.[facility] HospitalIn the event this information is protected by the Federal Confidentiality of Alcohol and Drug Abuse Patient Records regulations: The Federal rules restrict any use of the information to criminally investigate or prosecute any alcohol or drug abuse patient.[facility] Reason for Visit (unrecogniz ed section [...] Care Teams (unrecognized sec tion and content) Mixing Engineer Relationship Specialty Start Date End Date Cesar Rosenthal [facility] [address] [place] [address] PCP - General 06/03/06 Mixing Engineer Relationship Specialty Start Date End Date Mitzy Fung [address] [facility] [place] [address] PCP - General Pediatrics 06/24/22 Mixing Engineer Relationship Specialty Start Date End Date Mitzy [place] [address] PCP - General Pediatrics 06/24/22 Team Status: [...] Dr. J Luis Wolfe MD Attending Provider, [facility] Provider Active Team Status: Inactive Member Role Status Dates Dr. Mitzy Fung MD Primary Care Provider Active Dr. Yahir Harris DO Emergency Provider Active Team Status: Inactive Member Role Status Dates Dr. Mitzy Fung MD Primary Care Provider Active Dr. J Luis Wolfe MD Attending Provider, Refe ing Provider Active Team Status: Active Member Role Status Dates Dr. Mitzy Fung MD Primary Care Provider Active Dr. Teodoro Garcia DO Emergency Provider Active Dr. Mara Clements MD Attending Provider Active Team Status: Inactive Member Role Status Dates Dr. Mitzy Fung MD Primary Care Provider Active Dr. Teodoro Garcia DO Emergency Provider Active Dr. Mara Clements MD Attending Provider Active Mixing Engineer Relationship Specialty Start Date End Date Mitzy Fung MD [address] [place] [address] PCP - General 11/26/19 Team Status: Inactive Member Role Status Dates Dr. Mitzy Fung MD Primary Care Provider Active Dr. Yahir Harris DO Attending Provider, Emergency Provider Active Team Status: Inactive Member Role Status Dates Dr. Mitzy Fung MD Primary Care Provider, Referrin g Provider Active Dr. Vishal D eLa Torre MD Emergency Provider Active Team Status: [...] MD Attending Provider, Refer ring Provider Active Mixing Engineer Relationship Specialty Start Date End Date Mitzy Fung MD [address] [place] [address] PCP - General Pediatrics 06/24/22 Mixing Engineer Relationship Specialty Start Date End Date Mitzy Fung MD [address] [place] [address] PCP - General Pediatrics 06/24/22 Mixing Engineer Relationship Specialty Start Date End Date Mitzy Fung MD [address] [place] [address] PCP - General Pediatrics 06/24/22 Team Status: Inactive Member Role Status Dates Dr. Mitzy Fung MD Primary Care Provider Active Dr. Levar Ackerman DO Emergency Provider Active Mixing Engineer Relationship Specialty Start Date End Date Mitzy Fung MD [address] [place] [address] PCP - General Pediatrics 06/24/22 Mixing Engineer Relationship Specialty Start Date End Date Mitzy Fung MD [address] [facility] [place], [place] [id number] PCP - General Pediatrics 06/24/22 Team Status: [...] MD Attending Provider, Referring P rovider Active Mixing Engineer Relationship Specialty Start Date End Date Mitzy Fung MD [address] [place], [place] [address] PCP - General Pediatrics 06/24/22 Mixing Engineer Relationship Specialty Start Date End Date Mitzy Fung MD [address] [place], [place] [id number] PCP - General Pediatrics 06/24/22 Mixing Engineer Relationship Specialty Start Date End Date Mitzy Fung MD [facility] [place], [place] [id number] PCP - General 07/19/19 Team Status: Active [...] 2025 End: January 20, 2025 Dr. Javier Isbael DO Referring Provider Active Start: January 20, [...] and content) DATE CREATED AUTHOR 04/26/2024 [facility] DATE CREATED AUTHOR AUTHOR'S ORGANIZ ATION 05/05/2024 [facility] DATE CREATED AUTHOR AUTHOR'S ORGANIZ ATION 09/03/2024 [facility] DATE CREATED AUTHOR AUTHOR'S ORGANIZ ATION 09/14/2024 [facility] DATE CREATED AUTHOR AUTHOR'S ORGANIZ ATION 03/16/2025 [facility] FOR RECORDS PERTAINING TO PATIENTS [...] BE BASED ON THE PRIMARY CLINICAL RECORDS. [employer] provides no warranty or guarantee of the accuracy or completeness of information in this document.
[2025-03-17 05:09] LABS: Hematocrit 36.4 % (37-47); Hemoglobin 11.9 g/dL (12.0-15.0); Immature Granulocytes Count 0.030 X10^3/uL (0.0-0.0); Mean Corp Hgb Conc 32.7 g/dL (32-36); Mean Corpuscular Volume 87.3 fL (81-99); Mean Platelet Vol. 9.5 fl (6.2-12.0); NRBC Flagged by Analyzer 0 % (0-5); Platelet Count 291 K/mm3 (150-450); RBC Distribution Width CV 12.5 % (11.6-14.6); RBC Distribution Width SD 40.0 fl (35.1-43.9); Red Blood Count 4.17 M/mm3 (4.2-5.4); White Blood Count 9.7 K/mm3 (4.4-11.0)
[2025-03-17 05:13] VITALS: BP 100/83; PULSE 91; RESP 20; TEMP 37.1; O2SAT 98
[2025-03-17 05:23] LABS: Internal QC Validated? YES +Cl - CLEAR BKGD; Pregnancy, Serum, hCG Quali. NEGATIVE Negative; Record Kit Lot#, Serum Preg. 0000962302
[2025-03-17 05:42] LABS: Anion Gap 11 (5-15); BUN 14 mg/dL (4-19); BUN/Creat Ratio 17.2 RATIO (10-20); Calcium,Total 9.0 mg/dL (7.6-11.0); Carbon Dioxide 26.3 mmol/L (21.0-32.0); Chloride 103 mmol/L (98-108); Estimated Creatinine Clearance 95.29 ml/min (50-250); Glucose 92 mg/dL (70-99); Potassium 3.6 mmol/L (3.3-5.1)
[2025-03-17 06:08] VITALS: BP 106/61; PULSE 87; RESP 18; TEMP 37.1; O2SAT 98
--- NOTE | 2025-03-17 07:11 | EX.ED.DYSGE1 ---
HPI History of Present Illness Chief Complaint: Sore Throat Informant: patient and parent Narrative Narrative: Here with mother evaluation diagnosed with strep 4 days ago in ENT office. Symptoms started over the weekend. States it was swollen. She was started on cefdinir and Medrol Dosepak mother states swelling was improving then worsen again. Pain with swallowing. No fever chills or sweats. Penicillin allergy. No vomiting or diarrhea. Prior similar symptoms: Yes PFSH PFSH Medical History Wears glasses Bipolar disorder Anxiety Non-smoker PCOS (polycystic ovarian syndrome) Endometriosis determined by laparoscopy ADHD Asthma Home Medications ?Medication ?Instructions ?Recorded ?Last Taken ?Type ondansetron 4 mg disintegrating 4 mg PO TID PRN nausea and 02/21/25 Unknown Rx tablet vomiting #21 tabs beclomethasone dipropionate 40 inhalation 03/17/25 Unknown History mcg/actuation HFA breath activated aerosol (Qvar RediHaler) cefdinir 300 mg capsule 300 mg PO BID 03/17/25 Unknown History clindamycin HCl 150 mg capsule 450 mg (3 x 150 mg) PO TID #63 03/17/25 Unknown Rx CAPSULES lorazepam 1 mg tablet 1 mg PO DAILY PRN anxiety 03/17/25 Unknown History methylprednisolone 4 mg tablets in PO 03/17/25 Unknown History a dose pack Allergy/AdvReac Type Severity Reaction Status Date / Time Penicillins Allergy Swelling Verified 03/17/25 04:18 tree and shrub pollen Allergy Other Verified 03/17/25 04:18 Surgical History S/P laparoscopy Social History Smoking Status: Current every day smoker tobacco type: cigarettes and e-cigarettes alcohol intake: never substance use type: does not use ROS ROS ED Constitutional Constitutional ED: Denies fever(s) ENT ENT ED: Reports sore throat Cardiovascular Cardiovascular: Denies chest pain Respiratory/Chest Respiratory/Chest: Denies cough Gastrointestinal Gastrointestinal: Denies diarrhea or vomiting Musculoskeletal Musculoskeletal: Denies none Integumentary Denies rash or wounds Neurologic Neurologic: Denies weakness EXAM Physical Exam Const Vital Signs: 03/17/25 04:09 03/17/25 04:13 03/17/25 04:13 Temperature 98.6 F 98.6 F 98.6 F Temperature Source Oral Oral Oral Pulse Rate 87 90 91 Respiratory Rate 20 H 20 H 20 H Blood Pressure 118/92 H 118/92 H 118/92 H Blood Pressure Mean 100 100 100 Pulse Ox 100 100 100 Oxygen Delivery Method Room Air Room Air Room Air 03/17/25 05:13 03/17/25 06:08 Temperature 98.7 F 98.7 F Temperature Source Oral Pulse Rate 91 87 Respiratory Rate 20 H 18 Blood Pressure 100/83 H 106/61 Blood Pressure Mean 88 76 Pulse Ox 98 98 Oxygen Delivery Method Room Air Positive well nourished and well developed Constitutional Narrative: Uncomfortable, nontoxic. General Appearance ED: well developed HEENT Reports moist mucous membranes HEENT Narrative: There is posterior pharyngeal erythema. 1+ tonsils bilaterally with erythema. Uvula midline. There were tonsillar crypts noted on the left side. No stridor. No trismus. normocephalic and atraumatic Eyes General Eye ED: Yes normal appearance of both eyes Neck full ROM Neck Narrative: Tender anterior cervical lymphadenopathy left greater than right. Chest Wall Chest: Negative for tenderness Resp normal respiratory effort and normal air movement Effort and Inspection: symmetric chest movement; Negative for respiratory distress Cardio regular rate, regular rhythm and no murmurs Peripheral Pulses: pulses 2+ throughout GI normal to inspection, nondistended, normoactive bowel sounds and non-tender Palpation: Negative for guarding or rebound tenderness present Extremity normal to inspection General Extremety ED: Negative for edema or tenderness General Extremity: Negative for edema Neuro oriented x3 and no sensory deficits noted Sensorium / Orientation: awake and alert Skin no rashes or lesions noted and no wounds MDM MDM MDM Narrative Medical decision making narrative: Interventions / MDM: Differential diagnosis: Strep infection, pharyngitis Diagnosis considered but do not suspect: No clinical peritonsillar abscess. No clinical retropharyngeal abscess My EKG interpretation: N/A Imaging independently reviewed and interpreted by myself: N/A External documents reviewed: N/A Test considered but not ordered:N/A ED course: Vital stable nontoxic. She is uncomfortable. Posterior pharyngeal erythema noted with recent strep 4 days ago. IV established for labs. Clindamycin ordered along with dexamethasone. No clinical peritonsillar abscess or retropharyngeal abscess. Patient be reevaluated. Reevaluation sleeping comfortably. Labs white count normal at 9.7 normal creatinine 0.82. Patient be switched over to clindamycin and she will finish her Medrol Dosepak. She will follow-up with the ENT. Return precautions. All questions were answered. Re-evaluation: stable Disposition discussed with patient/family/significant other: Patient and mother Case discussed with consulting clinician: N/A This note was generated with [employer] dictation software. It may contain incorrect words, spelling, and punctuation that were not noted in checking the note before signing. Lab Data Attestation: I reviewed the patient's lab results. Labs: Laboratory Results - last 24 hr 03/17/25 04:50 WBC 9.7 RBC 4.17 L Hgb 11.9 L Hct 36.4 L MCV 87.3 MCH 28.5 MCHC 32.7 RDW Std Deviation 40.0 RDW Coeff of Ray 12.5 Plt Count 291 MPV 9.5 Immature Gran % (Auto) 0.300 Neut % (Auto) 59.6 Lymph % (Auto) 30.3 Meade % (Auto) 7.8 Eos % (Auto) 1.5 Baso % (Auto) 0.5 Absolute Neuts (auto) 5.8 Absolute Lymphs (auto) 2.95 Nucleated RBC % 0 Sodium 140 Potassium 3.6 Chloride 103 Carbon Dioxide 26.3 Anion Gap 11 BUN 14 Creatinine 0.82 Estim Creat Clear Calc 95.29 Est GFR (MDRD) Non-Af 105 BUN/Creatinine Ratio 17.2 Glucose 92 Calcium 9.0 Serum , Qual NEGATIVE Discharge Plan Triage Chief Complaint: Sore Throat ED Provider: Jose D Chua Dx/Rx/DC Orders Clinical Impression: History of strep pharyngitis, Sore throat Instructions: Self-Care for Sore Throats, ED Pharyngitis, Strep (Confirmed) Prescriptions: New clindamycin HCl 150 mg capsule 450 mg PO TID Qty: 63 0RF No Action ondansetron 4 mg tablet,disintegrating 4 mg PO TID PRN (Reason: nausea and vomiting) Qty: 21 0RF lorazepam 1 mg tablet 1 mg PO DAILY PRN (Reason: anxiety) methylprednisolone 4 mg tablets,dose pack PO cefdinir 300 mg capsule 300 mg PO BID Qvar RediHaler 40 mcg/actuation HFA aerosol breath activated inhalation Primary Care Provider: Mitzy Peterson Referrals: Mitzy Peterson MD [Primary Care Provider] - Activity Restrictions/Additional Instructions: Your labs were normal. White count 9.7. Stop cefdinir antibiotic. Continue your steroids. Take clindamycin as prescribed. Follow-up with your ENT team. Print Language: Bruneian Disposition Disposition: Home, Self Care Discharge Date/Time: 03/17/25 06:23
== END 2025-03-17 06:23 | disposition home or self-care (01) ==
PROVIDERS: Emergency Provider Emergency Medicine; PCP Pediatrics; Visit Provider Emergency Medicine
DX: J02.9 Acute pharyngitis, unspecified (principal); F17.210 Nicotine dependence, cigarettes, uncomplicated; F41.9 Anxiety disorder, unspecified
CPT/HCPCS: 80048; 84703; 85025; 99282; A4216

== ENCOUNTER 2025-07-09 00:49 | Emergency (ER) | payer MEDICAID, SELFPAY ==
[2025-07-09 00:49] VITALS: BP 133/89; PULSE 79; RESP 14; TEMP 36.1; O2SAT 98; BMI 22.6
--- NOTE | 2025-07-09 01:07 | EDS_ITS ---
HPI History of Present Illness Chief Complaint: Dental Informant: patient and parent Narrative Narrative: Patient is a 20-year-old female presenting with dental pain. Patient is accompanied by her mother who is supplementing history. - Reports dental pain that began today, worsening over the past 1-2 hours. - Pain is localized to a decayed tooth that has been in poor condition for some time. - Patient has avoided dental visits due to a previous negative experience. - Describes a sensation of pressure, feeling like something is pulling on her teeth. - Took 3 Tylenol AIR TRAFF[employer] IN[employer] for pain management. - Denies noticing any swelling. PFSH PFS Medical History Wears glasses Bipolar disorder Anxiety Non-smoker PCOS (polycystic ovarian syndrome) Endometriosis determined by laparoscopy ADHD Asthma Home Medications ?Medication ?Instructions ?Recorded ?Last Taken ?Type ondansetron 4 mg disintegrating 4 mg PO TID PRN nausea and 02/21/25 Unknown Rx tablet vomiting #21 tabs beclomethasone dipropionate 40 inhalation 03/17/25 Unk nown History mcg/actuation HFA breath activated aerosol (Qvar RediHaler) cefdinir 300 mg capsule 300 mg PO BID 03/17/25 Unkno wn History clindamycin HCl 150 mg capsule 450 mg (3 x 150 mg) PO TID #63 03/17/25 Unknown Rx CAPSULES lorazepam 1 mg tablet 1 mg PO DAILY PRN anxiety Unknown History methylprednisolone 4 mg tablets in PO 03/17/25 Unknown History a dose pack clindamycin HCl 300 mg capsule 300 mg PO Q6H #40 CAPSU LES 07/09/25 Unknown Rx (Cleocin HCl) ibuprofen 600 mg tablet 600 mg PO Q8H PRN PRN pain # 20 07/09/25 Unknown Rx TABLETS Allergy/AdvReac Type Severity Reaction Status Date / Time cefdinir Allergy Intermediate Hives Verified 07/09/25 00:50 Penicillins Allergy Swelling Verified 07/09/25 00:50 tree and shrub pollen Allergy Other Verified 07/09/25 00:50 Surgical History Hx of tonsillectomy S/P laparoscopy Social History Smoking Status: Current every day smoker tobacco type: cigarettes and e- cigarettes alcohol intake: never substance use type: does not use ROS ROS ED Constitutional Constitutional ED: Denies chills or fever(s) Eyes Eyes: Denies change in vision or double vision ENT ENT ED: Reports dental pain; Denies sinus pain or throat swelling Cardiovascular Cardiovascular: Denies chest pain or palpitations Respiratory/Chest Respiratory/Chest: Denies cough or dyspnea Integumentary Denies abscess or rash Neurologic Neurologic: Denies headache(s), paresthesias or weakness EXAM Physical Exam Const Vital Signs: 07/09/25 00:49 Temperature 97 F L Temperature Source Axillary Pulse Rate 79 Respiratory Rate 14 Blood Pressure 133/89 H Blood Pressure Mean 103 Pulse Ox 98 Oxygen Delivery Method Room Air Positive well nourished and well developed General Appearance ED: well developed and NAD HEENT HEENT Narrative: Posterior dental defect tooth #14 without associated abscess. No sinus tenderness, no trismus, no purulent nasal discharge. No external swelling/asymmetry. Face and Sinus: sinuses nontender Throat: posterior oropharynx normal Eyes PERRL and EOMs intact bilaterally Neck no lymphadenopathy and supple Resp normal respiratory effort Resp Narrative: No stridor Neuro oriented x3 and CN's II-XII intact bilaterally Sensorium / Orientation: alert Gait (Neuro): normal gait Psych mental status grossly normal and thought process normal Skin no rashes or lesions noted and no wounds MDM MDM MDM Narrative Medical decision making narrative: Tooth #14 has a large posterior defect that appears chronic. There is no evidence of an abscess, external swelling, gingivitis, bleeding, or discharge at this time. No trismus is noted. The oral mucosa and tongue are normal in appearance. There is no stridor, dyspnea, sinus tenderness, or nasal discharge. She may benefit from antibiotics to decrease inflammation in addition to NSAIDs, which were started here. I placed a Cavit temporary filling within the defect, provided her with a prescription for an antibiotic and NSAIDs, and advised her to follow up with a dentist as soon as possible. Procedures Other Procedures Procedure(s): Cavit dental filling - manually placed after cetacaine 2sec spray; tolerated well, no complications. Discharge Plan Triage Chief Complaint: Dental ED Provider: Vishal De La Torre Dx/Rx/DC Orders Clinical Impression: Pain due to dental caries Instructions: ED Dental Cavity Prescriptions: New clindamycin HCl [Cleocin HCl] 300 mg capsule 300 mg PO Q6H Qty: 40 0RF ibuprofen 600 mg tablet 600 mg PO Q8H PRN PRN (Reason: pain) Qty: 20 0RF No Action ondansetron 4 mg tablet,disintegrating 4 mg PO TID PRN (Reason: nausea and vomiting) Qty: 21 0RF lorazepam 1 mg tablet 1 mg PO DAILY PRN (Reason: anxiety) methylprednisolone 4 mg tablets,dose pack PO cefdinir 300 mg capsule 300 mg PO BID Qvar RediHaler 40 mcg/actuation HFA aerosol breath activated inhalation clindamycin HCl 150 mg capsule 450 mg PO TID Qty: 63 0RF Primary Care Provider: Mitzy Peterson Referrals: Mitzy Peterson MD [Primary Care Provider, Pediatrics] Dentist,Your [STAFF PHYSICIAN, Dentistry] - As soon as possible Print Language: Thai Disposition Disposition: Home, Self Care
--- OUTSIDE RECORDS SUMMARY | 2025-07-09 01:11 | XMS RPT_ITS | CCD ---
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 Mitzy Fung MD Primary Care Provider Dr. Javier Isabel DO Referring Provider Dr. Javier Isabel DO Emergency Provider Dr. Yaron Peralta MD Emergency Provider Dr. Javier Isabel DO Attending Provider Dr. Yaron Peralta MD Attending Provider Arturo Hernandez MD Emergency Provider Arturo Hernandez MD Attending Provider Dr. Teodoro Garcia DO Emergency Provider Dr. Teodoro Garcia DO Attending Provider Andes DO, Dr. Teodoro Referring Provider Bindu KO, Dr. Michele Attending Provider Zohaib HAMMER, Javier Attending Provider Javier Pabon Referring Provider Dr. Jose D Chua DO Emergency Provider FUNG, MITZY MELISSA Primary Care Unavailable SRIRAM STEWART Attending Unavailable SELF Referring Unavailable FUNG, MITZY MELISSA Primary Care Unavailable Leny Ruano Attending Unavailable Leny Ruano Referring Unavailable Fung, Mitzy Primary Care Unavailable Yaron Peralta Attending Unavailable Fung, Mitzy Primary Care Unavailable Arturo Hernandez Attending Unavailable Fung, Mitzy Primary Care Unavailable Teodoro Garcia Attending Unavailable Fung, Mitzy Primary Care Unavailable Jose D Chua Attending Unavailable Fung, Mitzy Primary Care Unavailable Schwiger, Jaiver Referring Unavailable Fung, Mitzy Primary Care Unavailable NaraigerJavier Attending Unavailable Fung, Mitzy Primary Care Unavailable Lois Conde Attending Unavailable Lois Conde Referring Unavailable Fung, Mitzy Primary Care Unavailable Teodoro Garcia Attending Unavailable Teodoro Garcia Referring Unavailable Fung, Mitzy Primary Care Unavailable Fung, Mitzy Referring Unavailable Flor Cortez Attending Unavailashanti e Javier Penny Attending Unavailable PennyJavier Referring Unavailable Fung, Mitzy Primary Care Unavailable Mitzy Fung MD Primary Care Provider LOIS CONDE Attending Unavailable LOIS CONDE R Referring Unavailable FUNG, MITZY A Primary Care Unavailable FUNG, MITZY A Referring Unavailable FUNG, MITZY A Primary Care Unavailable KEN SHELBY Attending Unavailable IGOR, BRENTLEY A Admitting Unavailable IGOR, IDANTLEY Christin Consulting Unavailable IGOR BRENTYUE Waller Attending Unavailable FUNG, MITZY A Primary Care Unavailable GUY NOVAK Consulting Unavailable FUNG, MITZY A Primary Care Unavailable FLOR ASHTON Consulting Unavailable REJI SERNA Admitting Unavailable GORGE DOE Attending Unavailable VICENTE LOPEZ Admitting Unavailable IDA ARCHULETANTYUE Waller Consulting Unavailable MELISSA GOMEZ Attending Unavailable FUNG, MITZY A Primary Care Unavailable KENNEY SURESH Consulting Unavailable FUNG, MITZY A Primary Care Unavailable REJI SERNA Attending Unavailable [facility] Admitting Unavailable FUNG, MITZY A Attending Unavailable FUNG MITZY A Referring Unavailable FUNG, MITZY A Primary Care Unavailable FUNG, MITZY A Primary Care Unavailable AMALIA ALCAZAR Attending Unavailable REFERRED, SELF Referring Unavailable FUNG, MITZY A Primary Care Unavailable GUY NOVAK Referring Unavailable BERNICE FERGUSON Attending Unavailable REFERRED, SELF Referring Unavailable LOIS CONDE Attending Unavailable FUNG MITZY A Primary Care Unavailable REFERRED, SELF Referring Unavailable LOIS CONDE Attending Unavailable FUNG, MITZY A Primary Care Unavailable Allergies Allergy Classification Reported Allergen(s) Allergy Type Date of Onset Reaction(s) Facility (6 sources) Tree and shrub pollen; Translations: [tree and shrub pollen] Allergy to substance 3 [facility] (4 sources) Grass pollen; Translations: [GRASS POLLEN] Propensity to adverse reactions to drug (disorder) 4 Unknown [facility] Repository (16 sources) Penicillins; Translations: [PENICILLINS] Propensity to adverse reactions to drug (disorder) 4 Unknown, Rash [facility] Repository (4 sources) cefdinir; Translations: [CEFDINIR] Drug Allergy 5 [facility] Work Phone: Medications Current Medications Medication Drug Class(es) Dates Sig (Normalized) Sig (Original) acetaminophen 32 mg/ml oral solution (12 sources) Start: 06-19-2025 End: 06-29-2025 take 20.5 mL by mouth every six hours acetaminophen (TYLENOL) 160 MG/5ML solution Take 20.5 mL (650 mg) by mouth every 6 hours for 10 days 820 mL 06/19/2025 06/29/2025 Active Start: 06-17-2025 End: 06-19-2025 take 4000 mg by mouth every twenty-four hours 640 mg (45.4 mg/kg/DAY, rounded from 650 mg), Oral, EVERY 6 HOURS EXACT, 360 doses, First dose on Thu06/17/25 at 1300, Last dose on Thu09/15/25 at 0800, Maximum dose of acetaminophen is 4000 mg from all sources in 24 hours Start: 06-17-2025 End: 10-25-2025 650 mg (46.1 mg/kg/DAY), Ora l, EVERY 6 HOURS, 360 doses, First dose on Thu06/17/25 at 0630, Last dose on Thu09/15/25 at 0000 Start: 06-15-2025 End: 06-16-2025 640 mg (43.5 mg/kg/DAY, roun ded from 882 mg = 15 mg/kg/DOSE 58.8 kg), Oral, EVERY 6 HOURS, 360 doses, First dose (after last modification) on Thu06/15/25 at 1800, Last dose on Thu09/13/25 at 1400, Shake Well. Do not administer acetaminophen within 4 hours of Tylenol-containing narcotics. Start: 06-15-2025 End: 06-15-2025 take 1 dose by mouth every six hours 650 mg (44.2 mg/kg/DAY), Oral, EVERY 6 HOURS, First dose (after last reorder) on Natalie 06/15/25 at 0000, Until Discontinued Start: 06-14-2025 End: 06-14-2025 825 mg (13.7 mg/kg/DOSE), Or al, ONCE, 1 dose, On Thu06/14/25 at 1630, Pre-op Start: 06-12-2025 End: 06-13-2025 1,000 mg (71.4 mg/kg/DAY), O ral, EVERY 6 HOURS, 360 doses, First dose (after last modification) on Thu06/12/25 at 2000, Last dose on Thu09/10/25 at 1530 Start: 03-22-2025 take 2 tablets by mo uth every six hours as needed for pain, then take 5 tablets by mouth every twenty-four hours as needed for pain acetaminophen (TYLENOL) 500 MG tablet Take 2 Tablets (1,000 mg) by mouth every 6 hours as needed for Pain or Fever Take no more than 5 doses in a 24 hour period 30 Tablet 1 03/22/2025 Active Start: 03-20-2025 End: 03-22-2025 640 mg (10.9 mg/kg/DOSE, rou nded from 877.5 mg = 15 mg/kg/DOSE 58.5 kg), Oral, EVERY 6 HOURS PRN, Starting on Thu03/20/25 at 1912, Until Thu03/22/25 at 1247, Mild Pain = Pain Score 1-3, Moderate Pain = Pain Score 4-6, Shake Well. Do not administer acetaminophen within 4 hours of Tylenol-containing narcotics. ascorbic acid 500 mg oral tablet (6 sources) Vitamin C Start: 12-28-2023 VITAMIN C 500 mg tablet 12/28/2023 Active Start: 12-28-2023 End: 03-20-2025 ascorbic acid (VITAMIN C) 50 0 MG tablet 1 Tablet (500 mg) 12/28/2023 03/20/2025 Discontinued (* Remove (Not on AVS)) budesonide 0.25 mg/ml inhalation suspension (15 sources) Corticosteroid Start: 11-20-2006 PULMICORT 0.5 MG/2 ML NEB SOLUTION use 1-2X daily 30 11/20/2006 Active Comment on above: use 1-2X daily cabergoline 0.5 mg oral tablet (7 sources) Ergot Derivative Start: 10-29-2023 cabergoline ( DOSTINEX) 0.5 mg tablet 0.5 mg every Thursday and Thursday. Inserted vaginally HS 10/29/2023 Active Start: 10-29-2023 cabergoline (D OSTINEX) 0.5 mg tablet cefdinir 300 mg oral capsule (3 sources) Cephalosporin Antibacterial Start: 03-22-2025 End: 04-02-2025 take 1 capsule by mouth twice daily cefdinir (OMNICEF) 300 MG capsule Take 1 Capsule (300 mg) by mouth 2 times daily for 11 days 22 Capsule 03/22/2025 04/02/2025 Active Start: 03-17-2025 take 1 capsule by [facility] twice daily Cefdinir 300 mg capsule Active 300 mg PO TWICE A DAY March 17, 2025 12:00am cephalexin 500 mg oral capsule (20 sources) Cephalosporin Antibacterial Start: 11-14-2023 take 500 mg by mouth every six hours Cephalexin Active 500 MG PO EVERY 6 HOURS November 14, 2023 12:00am Start: 12-01-2022 End: 12-24-2023 take 1 capsule by mouth every twelve hours Cephalexin 500 mg capsule Discontinued 500 mg PO EVERY 12 HOURS 20 0 February 04, 2023 12:00am December 24, 2023 7:10am cholecalciferol 0.025 mg oral capsule (9 sources) Vitamin D Start: 10-29-2023 End: 03-20-2025 take 1 capsule by mouth once daily Cholecalciferol, Vitamin D3, 25 mcg (1,000 unit) cap Take 5,000 Units by mouth once daily. 10/29/2023 Active D-MANNOSE ORAL (3 sources) D-MANNOSE ORAL T frances 2,000 mg by mouth. Active D-MANNOSE ORAL T frances 2,000 mg by mouth. 0 Active docusate sodium 50 mg / sennosides, fci 8.6 mg oral tablet (4 sources) Start: 12-28-2023 SENEXON-S 8.6- 50 mg per tablet 12/28/2023 Active 120 actuat fluticasone propionate 0.044 mg/actuat metered dose inhaler (8 sources) Corticosteroid Start: 10-29-2023 FLOVENT HFA 44 mcg/actuation inhaler 10/29/2023 Active Start: 02-19-2022 take 2 puff(s) by mo uth twice daily fluticasone (FLOVENT HFA) 44 MCG/ACT 44 mcg inhaler INHALE 2 PUFFS BY MOUTH TWICE A DAY 1 Each 02/19/2022 Active ibuprofen 20 mg/ml oral suspension (20 sources) Nonsteroidal Anti-inflammatory Drug Start: 06-19-2025 End: 06-29-2025 take 28.5 mL by mouth every six hours ibuprofen (ADVIL; MOTRIN) 100 MG/5ML suspension Take 28.5 mL (570 mg) by mouth every 6 hours for 10 days 1140 mL 06/19/2025 06/29/2025 Active Start: 06-17-2025 End: 06-19-2025 580 mg (40.7 mg/kg/DAY, roun ded from 570 mg = 10 mg/kg/DOSE 57 kg [place] weight), Oral, EVERY 6 HOURS EXACT, 360 doses, First dose on Thu06/17/25 at 1030, Last dose on Thu09/15/25 at 0500, Alternate with tylenol Start: 06-16-2025 take 29.4 mL by mout h every six hours as needed for pain ibuprofen (ADVIL; MOTRIN) 100 MG/5ML suspension Take 29.4 mL (588 mg) by mouth every 6 hours as needed for Pain 06/16/2025 Active Start: 06-15-2025 End: 06-16-2025 580 mg (39.5 mg/kg/DAY, roun ded from 588 mg = 10 mg/kg/DOSE 58.8 kg), Oral, EVERY 6 HOURS EXACT, 360 doses, First dose on Natalie 06/15/25 at 1530, Last dose on Thu09/13/25 at 1100 Start: 11-18-2022 take 600 mg by mouth every eight hours Ibuprofen Active 600 MG PO Q8H November 18, 2022 12:00am Start: 07-20-2019 End: 03-20-2025 take 2 tablets by mouth every six hours as needed for pain ibuprofen (MOTRIN) 200 MG tablet Take 2 Tabs (400 mg) by mouth every 6 hours as needed for Pain Take with meals. 50 Tab 07/20/2019 03/20/2025 Discontinued (* Remove (Not on AVS)) Start: 07-04-2019 take 1 tablet by marlyn [...] thermophilus (ACIDOPHILUS PROBIOTIC BLEND) 175 mg capsule (4 sources) Start: 12-28-2023 L. acidophilus-L. salivarius-B. bifidum-S. thermophilus (ACIDOPHILUS PROBIOTIC BLEND) 175 mg capsule 12/28/2023 Active Start: 12-28-2023 L. acidophilus -L. salivarius-B. bifidum-S. thermophilus (ACIDOPHILUS PROBIOTIC BLEND) 175 mg capsule loratadine 10 mg oral tablet (20 sources) Start: 01-25-2024 End: 03-20-2025 loratadine (CLARITIN) 10 mg tablet 01/25/2024 Active Start: 06-04-2022 take 1 tablet by marlyn th once daily loratadine (CLARITIN) 10 MG tablet TAKE 1 TABLET BY MOUTH DAILY 30 Tablet 11 06/04/2022 Active Start: 12-11-2020 End: 06-02-2025 take 1 capsule by mouth once daily Loratadine 10 MG capsule Discontinued 10 mg PO DAILY December 11, 2020 12:00am January 23, 2025 10:05am loratadine (CLAR ITIN ORAL) Take by mouth. Active loratadine (CLAR ITIN ORAL) Take by mouth. 0 Active Comment on above: Take by mouth. LORazepam 1 mg oral tablet (8 sources) Benzodiazepine Start: 03-17-2025 take 1 tablet by mouth once daily as needed for anxiety Lorazepam 1 mg tablet Active 1 mg PO DAILY as needed for anxiety March 17, 2025 12:00am Start: 01-23-2025 End: 02-05-2025 take 1 tablet by mouth once daily as needed for anxiety Lorazepam (Ativan) 1 mg tablet Discontinued 1 mg PO DAILY as needed for anxiety 7 7 0 January 23, 2025 12:00am February 05, 2025 10:13am 24 hr metFORMIN hydrochloride 500 mg extended release oral tablet (7 sources) Biguanide Start: 10-29-2023 take 1 tablet by mouth twice daily metFORMIN ER (GLUCOPHAGE XR) 500 mg 24 hr tablet Take 1,000 mg by mouth two times a day. 10/29/2023 Active Start: 10-29-2023 metFORMIN ER ( GLUCOPHAGE XR) 500 mg 24 hr tablet methylPREDNISolone 4 mg oral tablet (2 sources) Corticosteroid Start: 03-17-2025 Methylprednisolone 4 mg tablets,dose pack Active PO March 17, 2025 12:00am nitrofurantoin, macrocrystals 25 mg / nitrofurantoin, monohydrate 75 mg oral capsule (5 sources) Nitrofuran Antibacterial Start: 03-04-2023 End: 03-20-2025 take 1 capsule by mouth twice daily nitrofurantoin monohydrate and macrocrystal (MACROBID) 100 mg capsule Indications: Burning with urination Take 1 capsule by mouth two times a day for 5 days. 10 capsule 0 12/29/2023 01/03/2024 Active Comment on above: Take 1 capsule by [facility] two times a day for 5 days. ofloxacin 3 mg/ml otic solution (1 source) Quinolone Antimicrobial Start: 12-29-2023 End: 01-05-2024 ofloxacin (FLOXIN) 0.3 % otic solution Indications: Otalgia of right ear Use 5 Drops in the right ear once daily for 7 days. 10 mL 0 12/29/2023 01/05/2024 Active oxyCODONE hydrochloride 1 mg/ml oral solution (7 sources) Opioid Agonist Start: 06-16-2025 End: 06-23-2025 oxyCODONE (ROXICODONE) 5 MG/5ML solution Take 2.9 mL (2.9 mg) by mouth every 6 hours as needed for Pain for up to 10 doses 29 mL 06/16/2025 06/23/2025 Active Start: 06-16-2025 End: 06-16-2025 oxyCODONE (ROXICODONE) 5 MG/ 5ML solution Take 3 mL (3 mg) by mouth every 6 hours as needed for Pain for up to 10 doses 29 mL 06/16/2025 06/16/2025 Discontinued Start: 06-14-2025 End: 06-16-2025 take 0.085 mg by mouth every six hours as needed for pain 5 mg (0.085 mg/kg/DOSE), Oral, EVERY 6 HOURS PRN, Starting on Thu06/14/25 at 1826, Until Thu06/16/25 at 1505, Moderate Pain = Pain Score 4-6 Start: 06-14-2025 End: 06-14-2025 5 mg (0.085 mg/kg/DOSE), Ora l, ONCE, 1 dose, On Thu06/14/25 at 1730 Start: 06-12-2025 End: 06-13-2025 Start: 11-18-2022 take 5 mg by mouth e very six hours Oxycodone Active 5 MG PO EVERY 6 HOURS 10 November 18, 2022 predniSONE 20 mg oral tablet (2 sources) Start: 03-27-2025 End: 03-30-2025 take 2 tablets by mouth once daily at mealtime predniSONE (DELTASONE) 20 mg tablet Indications: Rash Take 2 tablets by mouth once daily for 3 days. Take daily with food. 6 tablet 03/27/2025 03/30/2025 Active Start: 08-27-2024 End: 08-31-2024 take 2 tablets by mouth once daily predniSONE (DELTASONE) 20 mg tablet Indications: Wheezing Take 2 tablets by mouth once daily for 4 days. 8 tablet 08/27/2024 08/31/2024 Active propranolol hydrochloride 10 mg oral tablet (4 sources) beta-Adrenergic Hannah Start: 06-06-2025 End: 06-13-2025 take 1 tablet by mouth twice daily as needed for anxiety propranolol (INDERAL) 10 MG tablet Take 1 Tablet (10 mg) by mouth 2 times daily as needed for Other (anxiety) 06/06/2025 Active Spacer/Aero-Holding Chambers (OPTICHAMBER ADVANTAGE) MISC DEVICE (1 source) Start: 05-14-2015 Spacer/Aero-Hold ing Chambers (OPTICHAMBER ADVANTAGE) MISC DEVICE . Use with inhaled medication as instructed. 1 Each 0 05/14/2015 Active Spacer/Aero-Holding Chambers (OPTICHAMBER ALICIA) MISC DEVICE (6 sources) Start: 04-26-2025 Spacer/Aero-Hold ing Chambers (OPTICHAMBER ALICIA) MISC DEVICE Use with inhaled medication as instructed. 1 Each 04/26/2025 Active Start: 10-15-2022 Spacer/Aero-Ho lding Chambers (OPTICHAMBER ALICIA) MISC DEVICE Use with inhaled medication as instructed. 1 Each 10/15/2022 Active Start: 10-15-2022 Spacer/Aero-Ho lding Chambers (OPTICHAMBER ALICIA) MISC DEVICE Use with inhaled medication as instructed. 1 Each 0 10/15/2022 Active Completed/Discontinued Medications Medication Drug Class(es) Dates Sig (Normalized) Sig (Original) acetaminophen 325 mg / HYDROcodone bitartrate 5 mg oral tablet (10 sources) Opioid Agonist Start: 09-25-2023 End: 2024 [...] HOURS NEEDED 10 3 September 25, 2023 acetaminophen 325 mg / oxyCODONE hydrochloride 5 mg oral tablet (4 sources) Opioid Agonist Start: 02-21-2025 End: 03-17-2025 Oxycodone-Acetaminophen (Percocet) 5-325 mg tablet Discontinued 1 {tbl} PO EVERY 6 HOURS as needed for pain 12 3 0 February 21, 2025 March 17, 2025 4:17am Nonspecific abdominal pain Unspecified abdominal pain albuterol 0.83 mg/ml inhalation solution (20 sources) beta2-Adrenergi c Agonist Start: 06-12-2025 End: 06-13-2025 Start: 04-26-2025 End: 06-13-2025 take 2 puff(s) by inhalation every four hours as needed for wheezing albuterol 108 (90 Base) MCG/ACT inhaler Inhale 2 Puffs into the lungs every 4 hours as needed for Wheezing or Shortness of Breath 18 g 2 04/26/2025 06/13/2025 Discontinued (Stop Taking (On AVS)) Start: 08-29-2024 take 2 puff(s) by in halation every four hours as needed for wheezing albuterol 108 (90 Base) MCG/ACT inhaler Inhale 2 Puffs into the lungs every 4 hours as needed for Wheezing or Shortness of Breath 18 g 2 08/29/2024 Active Start: 08-27-2024 albuterol (CALEB TOLIN) (2.5 MG/3ML) 0.083% nebulizer solution Use 3 mL (2.5 mg) by nebulization every 4 hours as needed for Wheezing or Shortness of Breath (Cough) 100 Each 1 08/29/2024 Active Start: 08-27-2024 End: 08-27-2024 albuterol 2.5 [...] daily Inhale 2 Puffs as in structed. amoxicillin 500 mg oral tablet (20 sources) Penicillin-class Antibacterial Start: 3 End: 3 take 1 tablet by mouth three times [...] marlyn th twice daily for 7 days. breath-actuated 120 actuat beclomethasone dipropionate 0.04 mg/actuat metered dose inhaler (8 sources) Corticosteroid Start: 025 End: 025 take 2 puff(s) by inhalation twice daily, then take 2 puff(s) by inhalation twice daily 2 Puff, Inhalation, 2 TIMES DAILY, 180 doses, First dose on 06/12/25 at 2100, Last dose on Thu09/10/25 at 0900, Rinse Mouth with water (without swallowing) or brush teeth after inhalation OP SIG:Inhale 2 Puffs into the lungs 2 times daily Start: 03-17-2025 Beclomethasone Dipropionate [Beclomethasone Dipropionate 40 Mcg/Actuation Hfa Breath Activated Aerosol] (Beclomethasone Dipropionate 40 Mcg/Actuation Hfa ) 40 mcg/actuation HFA aerosol breath activated Active INHALATION March 17, 2025 12:00am Start: 09-07-2024 take 2 puff(s) by in halation twice daily Beclomethasone Diprop (QVAR REDIHALER) 40 MCG/ACT AERB Redihaler Inhale 2 Puffs into the lungs 2 times daily 1 Each 09/07/2024 Active calcium chloride 0.0014 meq/ ml / potassium chloride 0.004 meq/ml / sodium chloride 0.103 meq/ml / sodium lactate 0.028 meq/ml injectable solution (2 sources) Start: 06-14-2025 End: 06-14-2025 CONTINUOUS, Intravenous, at 75 mL/hr, Starting on Thu06/14/25 at 1445, For 90 days Start: 06-14-2025 End: 06-14-2025 500 mL (8.93 ml/kg/DOSE), In travenous, ONCE, 1 dose, On Thu06/14/25 at 1330, Administer over 61 Minutes cefTRIAXone 2000 mg injection (1 source) Cephalosporin Antibacterial Start: 03-20-2025 End: 03-22-2025 2,000 mg (34.2 mg/kg/DAY), Intravenous, EVERY 24 HOURS EXACT, 90 doses, First dose on Thu03/20/25 at 2100, Last dose on Thu06/17/25 at 2100, Administer over 30 Minutes, Do NOT y-site w/calcium containing fluids (ie LR, TPN)s cetirizine hydrochloride 10 mg oral tablet (5 sources) Histamine-1 Receptor Antagonist Start: 06-17-2025 End: 06-19-2025 take 1 tablet by mouth once daily 10 mg (0.177 mg/kg/DAY), Oral, DAILY, 90 doses, First dose on Thu06/17/25 at 0900, Last dose on Natalie 09/14/25 at 0900, OP SIG:Take 1 Tablet (10 mg) by mouth daily Start: 03-29-2025 End: 06-13-2025 take 1 tablet by mouth once daily cetirizine (ZYRTEC) 10 MG tablet Take 1 Tablet (10 mg) by mouth daily 30 Tablet 03/29/2025 Active clindamycin 300 mg oral capsule (14 sources) Lincosamide Antibacterial Start: 06-17-2025 End: 06-19-2025 600 mg (31.9 mg/kg/DAY), Oral, EVERY 8 HOURS EXACT, 18 doses, First dose on Thu06/17/25 at 0800, Last dose on Thu06/23/25 at 0100 Start: 06-14-2025 End: 06-16-2025 600 mg (40.8 mg/kg/DAY), Intravenous, at 100 mL/hr, EVERY 6 HOURS EXACT, 360 doses, First dose (after last reorder) on Thu06/14/25 at 2000, Last dose on Thu09/12/25 at 1400, Administer over 30 Minutes Start: 06-14-2025 End: 06-14-2025 600 mg (32.1 mg/kg/DAY), Intravenous, at 100 mL/hr, EVERY 8 HOURS EXACT, 9 doses, First dose on Thu06/14/25 at 1345, Last dose on Thu06/17/25 at 0545, Administer over 30 Minutes Start: 06-13-2025 End: 06-26-2025 take 2 capsules by mouth every eight hours clindamycin (CLEOCIN) 300 MG capsule Take 2 Capsules (600 mg) by mouth every 8 hours for 10 days 60 Capsule 06/16/2025 06/26/2025 Active Start: 06-13-2025 End: 06-13-2025 600 mg (32.1 mg/kg/DAY), Intravenous, at 100 mL/hr, EVERY 8 HOURS, 270 doses, First dose (after last modification) on Thu06/13/25 at 0000, Last dose on Thu09/10/25 at 1600, Administer over 30 Minutes Start: 06-12-2025 End: 06-12-2025 600 mg (10.8 mg/kg/DOSE), Intravenous, at 100 mL/hr, ONCE, 1 dose, On Thu06/12/25 at 1430, Administer over 30 Minutes Start: 03-22-2025 End: 04-02-2025 take 2 capsules by mouth three times daily clindamycin (CLEOCIN) 300 MG capsule Take 2 Capsules (600 mg) by mouth 3 times daily for 11 days 66 Capsule 03/22/2025 04/02/2025 Active Start: 03-20-2025 End: 03-22-2025 600 mg (30.8 mg/kg/DAY), Intravenous, at 100 mL/hr, EVERY 8 HOURS EXACT, 270 doses, First dose (after last modification) on 03/20/25 at 2100, Last dose on 06/18/25 at 1300, Administer over 30 Minutes Start: 03-17-2025 take 3 capsules by m outh three times daily Clindamycin Hcl 150 mg capsule Active 450 mg PO THREE TIMES A DAY 63 0 March 17, 2025 12:00am Start: 08-27-2024 End: 09-03-2024 take 1 capsule by mouth three times daily clindamycin (CLEOCIN) 300 mg capsule Indications: Pharyngitis, unspecified etiology Take 1 capsule by mouth three times a day for 7 days. 21 capsule 08/27/2024 09/03/2024 Active D-Mannose (8 sources) Start: 12-21-2023 End: 01-23-2025 take 1 [...] MG PO DAILY December 21, 2023 12:00am d-mannose (5 sources) Start: 02-05-2025 End: 03-17-2025 d-mannose Discontinued 1 NMA PO DAILY February 05, 2025 12:00am March 17, 2025 4:17am Start: 02-05-2025 d-mannose Acti ve 1 NMA PO DAILY February 05, 2025 12:00am D-Mannose 500 MG CAPS (2 sources) Start: 12-21-2023 End: 03-20-2025 D-Mannose 500 MG CAPS daily 12/21/2023 03/20/2025 Discontinued (* Remove (Not on AVS)) Start: 12-21-2023 D-Mannose 500 MG CAPS daily 12/21/2023 Active 1 ml dexamethasone phosphate 4 mg/ml injection (2 sources) Corticosteroid Start: 06-12-2025 End: 06-12-2025 8 mg (0.144 mg/kg/DOSE), Intravenous, ONCE, 1 dose, On Thu06/12/25 at 1400, Infuse over 3 minutes Start: 03-20-2025 End: 03-20-2025 10 mg (0.173 mg/kg/DOSE), In travenous, ONCE, 1 dose, On Thu03/20/25 at 1700, Infuse over 3 minutes 1 ml diphenhydrAMINE hydrochloride 50 mg/ml cartridge (1 source) Histamine-1 Receptor Antagonist Start: 06-17-2025 End: 06-19-2025 56.5 mg (rounded from 56.4 mg = 1 mg/kg/DOSE 56.4 kg), Intravenous, EVERY 6 HOURS PRN, Starting on 06/17/25 at 0912, Until Thu06/19/25 at 1202, Nausea docusate sodium 100 mg oral capsule (1 source) Start: 03-22-2025 End: 03-22-2025 100 mg (1.71 mg/kg/DAY), Oral, DAILY, 90 doses, First dose on Thu03/22/25 at 0900, Last dose on Thu06/19/25 at 0900 2 ml fentaNYL 0.05 mg/ml cartridge (1 source) Opioid Agonist Start: 06-15-2025 End: 06-15-2025 50 mcg (0.877 mcg/kg/DOSE), Intravenous, EVERY 5 MIN PRN, 3 doses, Starting on Natalie 06/15/25 at 1304, Until Natalie 06/15/25 at 1356, Severe Pain = Pain Score 7-10, Use IV narcotic prior to using oxycodone when not tolerating oral intake., Call anesthesiologist before giving third dose of pain medication, PACU fluconazole 150 mg oral tablet (3 sources) Azole Antifungal Start: 03-07-2023 End: 03-20-2025 fluconazole (DIFLUCAN) 150 MG tablet 03/07/2023 03/20/2025 Discontinued (* Remove (Not on AVS)) Comment on above: Take 1 tablet by marlyn once daily for 1 day. FLUoxetine 10 mg oral capsule (5 sources) Serotonin Reuptake Inhibitor Start: 06-17-2025 End: 06-19-2025 10 mg, Oral, DAILY, 90 doses, First dose on 06/17/25 at 0900, Last dose on Natalie 09/14/25 at 0900 Start: 06-06-2025 End: 06-13-2025 FLUoxetine (PROZAC) 10 MG ca psule 06/06/2025 Active 1000 ml glucose 50 mg/ml / potassium chloride 0.02 meq/ml / sodium chloride 9 mg/ml injection (2 sources) Start: 06-14-2025 End: 06-16-2025 CONTINUOUS,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 by Guy Novak MD at [facility] OR Pediatric History Patient Parents Flor Jiménez (Mother) Fernando Barajas (Father) Other Topics Concern Interpersonal relationships Not Asked Poor school performance Not Asked Reading difficulties Not Asked Speech difficulties Not Asked Writing difficulties Not Asked Toilet training problems Not Asked Inadequate sleep Not Asked Excessive TV viewing Not Asked Excessive video game use Not Asked Inadequate exercise Not Asked Sports related Not Asked Poor diet Not Asked Second-hand smoke exposure Not Asked Alcohol/drug concerns Not Asked Violence concerns Not Asked Poor oral hygiene Not Asked Bike safety Not Asked Vehicle safety Not Asked Social History Narrative Not on file ED Triage Vitals Date and Time Temp Temp src Pulse Resp BP SpO2 User 06/17/25 0306 -- -- 78 22 -- 100 % NNC 06/17/25 0255 36.1 C (97 F) Temporal 97 20 145/82 Pt worked up 100 % KNB Physical Exam Constitutional: General: She is in acute distress. Appearance: Normal appearance. She is normal weight. She is ill-appearing. She is not toxic-appearing or diaphoretic. HENT: Head: Normocephalic and atraumatic. Mouth/Throat: Mouth: Mucous membranes are moist. Comments: Swelling of bilateral tonsils in the area of recent tonsillectomy and adenoidectomy site. Large area of clot with some swelling and oozing on the left Neck: Musculoskeletal: Normal range of motion and neck supple. No muscular tenderness. Cardiovascular: Rate and Rhythm: Normal rate and regular rhythm. Pulses: Normal pulses. Heart sounds: Normal heart sounds. No murmur heard. No friction rub. No gallop. Pulmonary: Effort: Pulmonary effort is normal. No respiratory distress. Breath sounds: Normal breath sounds. No stridor. No wheezing, rhonchi or rales. There is no cough present. Chest: Chest wall: No tenderness. Abdominal: General: [...] of motion and neck supple. No rigidity. No muscular tenderness. Right lower leg: No edema. Left lower leg: No edema. Lymphadenopathy: Cervical: No cervical adenopathy. Skin: General: Skin is warm and dry. Capillary Refill: Capillary refill takes less than 2 seconds. Coloration: Skin is not jaundiced or pale. Findings: No bruising, ecchymosis, erythema, lesion, rash or wound. Neurological: General: No focal deficit present. Mental Status: She is alert and oriented to person, place, and time. Cranial Nerves: No cranial nerve deficit. Sensory: No sensory deficit. Motor: No weakness. Coordination: Coordination normal. Gait: Gait normal. Psychiatric: Mood and Affect: Mood normal. Behavior: Behavior normal. Physical Exam Procedures Encounter Documentation/Handof f: Diagnosis' considered: Labs/Radiology: Consults: No orders of the defined types were placed in this encounter. Treatment/Reassessme nt: Admitting Provider Info: Bernardo Archuleta MD ENT Medical Decision Making 20-year-old female presenting to the emergency department with bleeding status post tonsillectomy and adenoidectomy. Patient has hemoglobin of 11.6, hematocrit of 35.2, and serum bicarbonate of 20.2 but no other abnormalities on laboratory work. Patient was given one 500 mcg inhalation of TXA. Patient's bleeding did stop in the emergency department. Patient was evaluated at bedside by ENT (more content not included)... Normal [facility] HCG, URINEon 06-17-2025 Beta HCG ( test) Ql (U) Negative Normal Negative [facility] Comment on above: Order Comment: Reaso n for preventing automatic release->OtherRelease to patient->Manual release only Result Comment: Nonp regnant females and males-Negative females-Positive PROTHROMBIN TIME AND ACTIVAT ED PTTon 06-17-2025 aPTT Coag (Bld) [Time] 27.5 s Normal <=40.0 [facility] Comment on above: Order Comment: Relea se to patient->Automatic Result Comment: Rupal march < 1 yr of age may have a slightly prolonged activated partial thromboplastin time as the test is dependent on the level to which their coagulation factors have developed. INR 1.0 Normal 0.7-1.3 [facility] Comment on above: Order Comment: Relea se to patient->Automatic Result Comment: Ther apeutic Range for Oral Anticoagulant ?Anticoagulant Therapy ? INR ?Standard Therapy ? 2.0-3.0 ?Prophylaxsis/Treatment of venous thrombosis ?Treatment of PE ?Prevention of systemic embolism ?Tissue heart valves ?Acute Myocardial Infarction ?(to prevent systemic embolism) ?Valvular heart disease ?Atrial fibrillation ?Higher Intensity ?2.5-3.5 ?Mechanical Prosthetic valves ?The INR is used only for patients on stable oral anticoagulant ?therapy. It makes no significant contribution to the diagnosis ?or treatment of patients whose PT is prolonged for other reasons. PT Coag (PPP) [Time] 10.4 s Normal 8.5-14.[address] [facility] Comment on above: Order Comment: Relea se to patient->Automatic Result Comment: Chil dren < 1 yr of age may have a slightly prolonged prothrombin time as the test is dependent on the level to which their coagulation factors have developed. PT/aPTT/INRon 06-17-2025 aPTT Coag (Bld) [Time] 27.5 s NINF [facility] Comment on above: Children < 1 yr of a ge may have a slightly prolonged activated partial thromboplastin time as the test is dependent on the level to which their coagulation factors have developed. INR Coag (PPP) [Relative time] 1.0 {INR} 0.7 - 1.3 [facility] Comment on above: Therapeutic Range fo r Oral Anticoagulant Anticoagulant Therapy INR Standard Therapy 2.0-3.0 Prophylaxsis/Treatment of venous thrombosis Treatment of PE Prevention of systemic embolism Tissue heart valves Acute Myocardial Infarction (to prevent systemic embolism) Valvular heart disease Atrial fibrillation Higher Intensity 2.5-3.5 Mechanical Prosthetic valves The INR is used only for patients on stable oral anticoagulant therapy. It makes no significant contribution to the diagnosis or treatment of patients whose PT is prolonged for other reasons. Interpretation and review of laboratory results Normal [facility] PT Coag (Bld) [Time] 10.[address] [facility] Comment on above: Children < 1 yr of a ge may have a slightly prolonged prothrombin time as the test is dependent on the level to which their coagulation factors have developed. [facility] TYPE AND SCREENon 06-17-2025 ABO TYPE A Normal [facility] Comment on above: Order Comment: Histo ry of transplant:->NoHistory of immunodeficiency:->NoCurrently on immunosuppressive therapy:->NoSickle Cell Disease->NoPrevious transfusion of blood products:->NoIVIG in the last three months:->NoWinRho, or RhoGam in the last three months:->NoPregnancy, current or within the last three months:->NoRelease to patient->Automatic Direct Antiglobulin Test Negative Normal [facility] Comment on above: Order Comment: Histo ry of transplant:->NoHistory of immunodeficiency:->NoCurrently on immunosuppressive therapy:->NoSickle Cell Disease->NoPrevious transfusion of blood products:->NoIVIG in the last three months:->NoWinRho, or RhoGam in the last three months:->NoPregnancy, current or within the last three months:->NoRelease to patient->Automatic Rh Type Positive Normal [facility] Comment on above: Order Comment: Histo ry of transplant:->NoHistory of immunodeficiency:->NoCurrently on immunosuppressive therapy:->NoSickle Cell Disease->NoPrevious transfusion of blood products:->NoIVIG in the last three months:->NoWinRho, or RhoGam in the last three months:->NoPregnancy, current or within the last three months:->NoRelease to patient->Automatic Screening Cells Negative Normal [facility] Comment on above: Order Comment: Histo ry of transplant:->NoHistory of immunodeficiency:->NoCurrently on immunosuppressive therapy:->NoSickle Cell Disease->NoPrevious transfusion of blood products:->NoIVIG in the last three months:->NoWinRho, or RhoGam in the last three months:->NoPregnancy, current or within the last three months:->NoRelease to patient->Automatic Type & Screenon 06-17-2025 ABO group Nom (Bld) A [facility] Blood group antibody screen Ql Negative [facility] Direct antiglobulin test.poly specific reagent Ql (RBC) Negative [facility] Rh Nom (Bld) Positive [facility] hCG urine (ALL menstruating females)Ordered By: Carolyn Bills on 06-17-2025 HCG ( test) Ql (U) Negative Negative [facility] Comment on above: Non females and males-Negative females-Positive Interpretation and review of laboratory results Normal [facility] Surgical Pathology Lab TestO rdered By: Petar Pereira on 06-16-2025 CASE REPORT Surgical Pathology Report Case: [id number] Authorizing Provider: Guy Novak MD Collected: 06/15/2025 1202 Ordering Location: [facility] MAIN OR Received: 06/15/2025 1319 Pathologist: Petar Pereira Jr., MD Specimen: Tonsils Right & Left, TONSILS - RIGHT AND LEFT [facility] Work Phone: Clinical Information [id number] m bGFuZzEwMzNcZnRuYmpc cCGzWVwaimPyEJqrc8Pc S6BtFsKnIWhxriKuTETz YnlgqwhwXFVaPYR8kaPk CFLbXOhaPTTpURhjNy4w tFUtqTigRtMxSPKrw5is rtCCxnfdrKd8j5uxZWGk XgU9nVXgOAldU6gftmIo uQQmXZYgZOa7pZ74SZEl bN0tdZXlFVdvreGtLjO7 IHbyFAHdEyR8XUNloKNy GTUpS6kaQMQtNIggCGIa RBrjeETjCZZ3fPxgl0F4 bGVzaGVldHtcZjBcZnMy YjIQg8MoOPu5yNviD2Bx ZGWaMuS4oGJwGVFpSRil XFAyUPFbtuF5xM20HZyh fqT0aXUaa2Rhm56de139 uS1cyNIsXVT3BIWeMZIl oQTaDZHuJEV5NCAxcNGl J0vtZZEsHX4zkrhqRBls AKyhWDCfeGS6QQHwmEQl Q7BpRLTmXHovTGFcnhb5 CrXiAp7glRJvyIagYFvl i1apu5yepDChEip0NYJf WuRsSelhNArei5Ojq4pm XMEewi7rNUO8mCRmsXze r9A5kWHgWNVjvSLnqiIr ZOBlPwN5MRrjZT7vtb28 OGKcRZI5oy5teKHquXyy ayDrbTJaFJrpV4VsFBSe c747LBDhZ0MhSOYtz2H5 fdRtOjLrQYEqgXV3huD6 DWPvTLo8vINvciZ5kjYq gFExL5abxU1mOCRxQK4r lpfcr4pzTMzpLOqeCRYb nMM9jgJ2JSRnmGUfC0Ko cP7lKXCuZGagJNBwytz0 JrJfZc7ddGKzyImvZPho YmtwYWdlXHBnbmNvbnRc cGduZGVjXHBsYWluXHBs YWluXGYwXGZzMjRccGFy ZFxwbGFpblxmMVxmczIw GDyravynBCOnKEicF1aq PtErSZLzaKohOSwcd3Jk XGYxXGNmMlxmczIwIFBl bhr3u62usSabKZKbRJHl D0LlpjjyVF5qq2mqqCIl VPTus2Gpy1EkBXShU2Ce ncUcxXF6v00ryQpjzHXv l6ctZAUylVQmvG1= [facility] Work Phone: Final Diagnosis c0henCRwQQKfyPWjZBBr QHalfePkWBXaaYJoH4Ny cytdKCarUN6dPX2wxHkp tMDihVHeVIUuAtQus6gy m120iCMqu3rrJABMkkyt rIx1rOpeV78ll0K3Tsnd I97cvGUzZYT3AJQnIQIk gGGeUJEpIQQ7TNDfmCCk Q3bfABKrKC9yedfeLTxj IIayZTIazAP8EHUotDYp A7UkJZKeVAhfLIHevqo0 XrRmHw1qlSYguCxcKSlt YXJkXHBsYWluXGZzMjAg GZ9wv2chmsmreP4hp1ys kBItlU7bpJadLnG5i13m iElzFUhkqQweHc3ycQba wPpigdNlvM2blE6hRLOy eXBlcnBsYXNpYVxwYXJc EA3bTQBfXSZDhaMjcN8b a0ypKXMeb8feZUHnZSXm ePwpiqelQIWxV7Orqf6h aWtlIGFjdXRlIGluZmxh cJ7oxVujjiAayyWaK1Hq ugOqHOFvk84ujOjqg3Hz BNIhww3rfOrtusfuC67a zJA6nWLwKRU2rFTzHOAe lBubelSoirXupIL6o4F2 GW7zXKYhihy7z70khYmz VWEjOUZeQ2Ezf5pkWBL9 [facility] Work Phone: Gross Description u0fgmMWmPTKakCDOEPU0 UPQdPL4oxBqbtKa9mDfh ESJzxtK3qQArZPcls6hk VZX2a4hhqtBARfssPBDi NLzxBWOhqjmqCjV4XZmg VTYnpsqyXIc8YXpaSLTl iUC5ZPNgsZYuT7AwLEQp RO7agma2ZJT4SBoqBSJe IcN4QXHtOCz4KIBkxiZ7 Bnf3POWdTCQprUKtw8E3 ISyum2lsv4ZbNSRnCHl9 kU1TPrrpTQT7ADsnINYq ZFO5FfBuBQKgt6Mghgn6 EoBvKXa9LBdmIITwF4Rz R7LwAUkvJzZvSWxjINXy MXUvOKuxIBCyR4EISNFl WNM3CRN7LyLcKEt2CRkw HqOSWIT1ZJWuHnO1QYq2 UBSqOX8sGSihlNFjYEud EghiJPtpB107IHukNSBt T2ZfW2WbRQwgEkLjNNjo FUUjCKMjWWgiNUAjM3MN WHHuOMY0SJV5BmIjRUf4 IKacQ2BAIXXuCGQdKNC5 HycjRxH4NAv9NVFNIv1t TVFdGMTgPfz0TxR0CYWr JADbXS7fHLwniQMcWJcv i8HxJsNwHYPpQNggpoC9 NFCeloPxIZeivKzpmT1h gYVvAkDyXFZhL82zj1EQ k5DtTP9HPCd2maDrzlif BNXdJCVvaWGDj0JyZIRW ClxsdHJjaFxmczIwIEEu POUgT8AecsAmJObmKFTq wb0cjRbqNNexOfNlRONj o9l3fQC7dTRkxMT3cLEe cUjhLD5ozUUsVK8nYU0S TiBhcmUgdHdvIHRvbnNp kPFapSImu3TrrW6gOEOu EMQ7FQUzUHO6VVNiDjRt hVAslfDpLr03EJhmUS73 MEvlZC80RMXlToYEaKGl fSRva4IrbJXslGHaAPOc cyBhcmUgdGFuLXBpbmsg QZ1sTMHgdeShjxmyq1Sy ZzWELSE5qB4xmD3gCYKl uxEuoEMgTKK7XP9aIS5k TJQpyQV0bLNdOHNxjGk2 VBI3cEOfCFC0vLJpGP8p ZGVyYXRlIGFuZCBpbnRl rc6gdDVurpGcCLWrMVPv r3LjhRLou8IciYRpDG2m MIKirJPyy5SiwYU6cPOf WEEtH4Zle79dZAOvKTUu oOZrwAK6YJIaA3Nis7M5 uYAdTMAdZYGaZl5PWXMc bWPBGNK8KN1yHQoqULXj W0PcH8PalvK4y7udrBbo g2LugBRzQY4rbYMoNP4W XHBhcmQgDQpcZnMyNCAN Cn0= [facility] Work Phone: Microscopic Examination t6yqhTYnXPRswIJu MTQw QIskurWhENThzHJuS2Qm mspzEPgxEY3qCZ7zsTwj lVNcvUFqQEJtQyNpk9bu v430iFHfy1nzNOLFnups tFs4nPwdZ39dw0U6Hecp Y02dhLQgSUA1RELhSPZf vUNdTEKgCTC4BRIanOZv Z2mwAEYqOD4klpccHNvx XRaqKJHkeBO1APSuhQMz L8OeNGJpMVqnSNIhzjh9 RdVgCm1gvHOvmBneJDog YXJkXHBsYWluXGZzMjAg VYbpdv1uV82amGJaPQjy tUzyQZMaq12lbDAtPx5i bWVkLlxwYXJ9 [facility] Work Phone: [facility] Work Phone: PATHOLOGY SURGICAL LAB TESTo 06-15-2025 CASE REPORT Normal [facility] Comment on above: Order Comment: Relea se to patient->Automatic (5 days after final result) Result Comment: Surg ical Pathology Report Case: [id number] Authorizing Provider: Guy Novak MD Collected: 06/15/2025 1202 Ordering Location: [facility] MAIN OR Received: 06/15/2025 1319 Pathologist: Petar Pereira Jr., MD Specimen: Tonsils Right & Left, TONSILS - RIGHT AND LEFT Clinical Information Normal [facility] Comment on above: Order Comment: Relea se to patient->Automatic (5 days after final result) Result Comment: Trinity tonsillar abscess, Tonsillar abscess, Recurrent tonsillitis Final Diagnosis Normal [facility] Comment on above: Order Comment: Relea se to patient->Automatic (5 days after final result) Result Comment: Tons ils, tonsillectomy: 2 tonsils with follicular lymphoid hyperplasia - One tonsil shows underlying abscess-like acute inflammation and granulation tissue formation, compatible with patient's history of peritonsillar abscess at 1353 EDT Gross Description A. Received in formalin labeled with the patient's name and MRN are two tonsils measuring 2.8 x 1.4 x 1.3 cm and 2.5 x 1.9 x 1.4 cm. The mucosal surfaces are cosme-pink and cerebriform. Sectioning reveals a cosme and cryptic architecture, with moderate and intermittent areas of hemorrhage. Bobbin Stripper sections are submitted cassettes A1-A2. Normal [facility] Comment on above: Order Comment: Relea se to patient->Automatic (5 days after final result) Microscopic Examination Microscopic examination performed. Normal [facility] Comment on above: Order Comment: Relea se to patient->Automatic (5 days after final result) BASIC METABOLIC PANELon 05-25 Calcium [Mass/Vol] 9.6 mg/dL Normal 7.6-11.0 [facility] Comment on above: Order Comment: Relea se to patient->Automatic Chloride [Moles/Vol] 104 mmol/L Normal 96-[address] [facility] Comment on above: Order Comment: Relea se to patient->Automatic CO2 [Moles/Vol] 21.1 mmol/L Low 22.0-29.0 [facility] Comment on above: Order Comment: Relea se to patient->Automatic Creatinine [Mass/Vol] 0.66 mg/dL Normal 0.50-1.00 [facility] Comment on above: Order Comment: Relea se to patient->Automatic GFR/1.73 sq M.predicted among non-blacks MDRD (S/P/Bld) [Vol rate/Area] mL/min/{1.73_m2} Normal >=60 [facility] Comment on above: Order Comment: Relea se to patient->Automatic Glucose [Mass/Vol] 82 mg/dL Normal 70-99 [facility] Comment on above: Order Comment: Relea se to patient->Automatic Result Comment: Crit gonzalez for Diagnosis of Diabetes: Fasting Specimen (no caloric intake for at least 8 hours): <100 mg/dL Normal 100-125 mg/dL Increased risk for Diabetes >125 mg/dL Diagnostic for Diabetes Random Glucose (any time of day without regard to last meal): > or = 200 mg/dL plus Classic Symptoms of Diabetes Potassium [Moles/Vol] 3.7 mmol/L Normal 3.3-5.1 [facility] Comment on above: Order Comment: Relea se to patient->Automatic Sodium [Moles/Vol] 139 mmol/L Normal 133-145 [facility] Comment on above: Order Comment: Relea se to patient->Automatic Urea nitrogen [Mass/Vol] 8 mg/dL Normal 4-19 [facility] Comment on above: Order Comment: Relea se to patient->Automatic Basic metabolic panelon 05-25 Calcium [Mass/Vol] 9.6 mg/dL 7.6 - 11. 0 mg/dL [facility] Chloride [Moles/Vol] 104 mmol/L 96 - 10 8 mmol/L [facility] Creatinine [Mass/Vol] 0.66 mg/dL 0.50 - 1.00 mg/dL [facility] eGFR - PINF [facility] Glucose [Mass/Vol] 82 mg/dL 70 - 99 mg/dL [facility] Comment on above: Criteria for Diagnos is of Diabetes: Fasting Specimen (no caloric intake for at least 8 hours): <100 mg/dL Normal 100-125 mg/dL Increased risk for Diabetes >125 mg/dL Diagnostic for Diabetes Random Glucose (any time of day without regard to last meal): > or = 200 mg/dL plus Classic Symptoms of Diabetes HCO3 (P) [Moles/Vol] 21.1 mmol/L Low 22.0 - 29.0 mmol/L [facility] Interpretation and review of laboratory results Abnormal [facility] Potassium (BldA) [Moles/Vol] 3.7 mmol/L 3.3 - 5.1 mmol/L [facility] Sodium [Moles/Vol] 139 mmol/L 133 - 145 mmol/L [facility] Urea nitrogen [Mass/Vol] 8 mg/dL 4 - 19 mg/dL [facility] COMPLETE BLOOD COUNT WITH DI FFERENTIALon 06-14-2025 Basophil \P\ 0.05 10E3/???L Normal 0.02-0.06 [facility] Comment on above: Order Comment: Relea se to patient->Automatic Basophils/100 WBC (Bld) 0.4 % Normal 0.3-0.9 [facility] Comment on above: Order Comment: Relea se to patient->Automatic Eosinophil \P\ 0.12 10E3/???L Normal 0.04-0.27 [facility] Comment on above: Order Comment: Relea se to patient->Automatic Eosinophils/100 WBC (Bld) 0.9 % Normal 0.6-3.8 [facility] Comment on above: Order Comment: Relea se to patient->Automatic Erythrocyte distribution width (RBC) [Ratio] 11.8 % Low 11.9-14.8 [facility] Comment on above: Order Comment: Relea se to patient->Automatic Hematocrit (Bld) [Volume fraction] 38.6 % Normal 35.5-44.6 [facility] Comment on above: Order Comment: Relea se to patient->Automatic Hemoglobin (Bld) [Mass/Vol] 13.2 g/dL Normal 11.4-14.8 [facility] Comment on above: Order Comment: Relea se to patient->Automatic Immature granulocytes/100 WBC (Bld) 0.4 % Normal 0.2-0.5 [facility] Comment on above: Order Comment: Relea se to patient->Automatic Result Comment: Jina ture Granulocyte Percent includes promyelocytes, myelocytes,and metamyelocytes. IG% > 1.0 indicates a left shift is present. With automated differentials, bands are included in the neutrophil count and not in the Immature Granulocyte Percent. Lymphocyte \P\ 2.02 10E3/???L Normal 1.51-2.99 [facility] Comment on above: Order Comment: Relea se to patient->Automatic Lymphocytes/100 WBC (Bld) 14.8 % Low 21.8-42.1 [facility] Comment on above: Order Comment: Relea se to patient->Automatic MCH (RBC) [Entitic mass] 28.8 pg Normal 25.7-31.2 [facility] Comment on above: Order Comment: Relea se to patient->Automatic MCHC 34.2 % High 31.3-34.0 [facility] Comment on above: Order Comment: Relea se to patient->Automatic MCV (RBC) [Entitic vol] 84.1 fL Normal 80.0-100.0 [facility] Comment on above: Order Comment: Relea se to patient->Automatic Monocyte \P\ 0.91 10E3/???L High 0.36-0.77 [facility] Comment on above: Order Comment: Relea se to patient->Automatic Monocytes/100 WBC (Bld) 6.7 % Normal 5.6-10.2 [facility] Comment on above: Order Comment: Relea se to patient->Automatic Neutrophil \P\ 10.49 10E3/???L High 2.43-6.42 [facility] Comment on above: Order Comment: Relea se to patient->Automatic Neutrophils/100 WBC (Bld) 76.8 % High 46.0-68.6 [facility] Comment on above: Order Comment: Relea se to patient->Automatic Nucleated RBC/100 WBC (Bld) [Ratio] 0.0 % Normal 0.0-0.0 [facility] Comment on above: Order Comment: Relea se to patient->Automatic Platelet mean volume (Bld) [Entitic vol] 10.8 fL Normal 9.6-11.9 [facility] Comment on above: Order Comment: Relea se to patient->Automatic Platelets 298 10E3/???L Normal 150-400 [facility] Comment on above: Order Comment: Relea se to patient->Automatic RBC 4.59 10E6/???L Normal 4.03-4.91 [facility] Comment on above: Order Comment: Relea se to patient->Automatic WBC 13.6 10E3/???L High 4.9-10.0 [facility] Comment on above: Order Comment: Relea se to patient->Automatic CT Nasopharynx and Neck W co ntrast Naina 06-14-2025 IMPRESSION: The left peritonsillar abscess has increased in size since the last exam. No new abscess is seen. This report has been created using voice recognition software [facility] RADIOLOGY CLINICAL HISTORY: Peritonsillar abscess with worsening pain TECHNIQUE: CT of the neck was performed with sagittal and coronal reformats with intravenous contrast. The patient was injected with 75 cc of Isovue-300. DOSE LINEAR PRODUCT: 358.78 mGy-cm. COMPARISON: 03/20/2025, 06/12/2025. FINDINGS: TONSILS/ADENOIDS: Since the last study the left peritonsillar abscess has increased in size. It measures 2.1 x 1.8 x 3.3 cm in AP, transverse and craniocaudal dimensions. It measures 1.5 x 1.5 x 2.2 cm on the last study. LYMPH NODES: There are reactive lymph nodes in the left side of the neck. SALIVARY GLANDS: Normal. NECK SPACES: Normal. VASCULATURE: Normal. PARANASAL SINUSES: Normal. ORBITS: Imaged portions appear normal. THYROID GLAND: Normal. LUNG APICES: Normal. CERVICAL SPINE: Normal. BRAIN: Imaged portions appear normal. [facility] RADIOLOGY David Murray MD - 06/14/2025 CLINICAL HISTORY: Peritonsillar abscess with worsening pain TECHNIQUE: CT of the neck was performed with sagittal and coronal reformats with intravenous contrast. The patient was injected with 75 cc of Isovue-300. DOSE LINEAR PRODUCT: 358.78 mGy-cm. COMPARISON: 03/20/2025, 06/12/2025. FINDINGS: TONSILS/ADENOIDS: Since the last study the left peritonsillar abscess has increased in size. It measures 2.1 x 1.8 x 3.3 cm in AP, transverse and craniocaudal dimensions. It measures 1.5 x 1.5 x 2.2 cm on the last study. LYMPH NODES: There are reactive lymph nodes in the left side of the neck. SALIVARY GLANDS: Normal. NECK SPACES: Normal. VASCULATURE: Normal. PARANASAL SINUSES: Normal. ORBITS: Imaged portions appear normal. THYROID GLAND: Normal. LUNG APICES: Normal. CERVICAL SPINE: Normal. BRAIN: Imaged portions appear normal. IMPRESSION: The left peritonsillar abscess has increased in size since the last exam. No new abscess is seen. This report has been created using voice recognition software [facility] Radiology Study observation (narrative) [facility] CT Nasopharynx and Neck W co ntrast IVOrdered By: David Murray on 06-14-2025 [facility] Work Phone: CT SOFT TISSUE NECK WITH IV CONTRASTon 06-14-2025 CT SOFT TISSUE NECK WITH IV CONTRAST CLINICAL HISTORY: Peritonsillar abscess with worsening pain TECHNIQUE: CT of the neck was performed with sagittal and coronal reformats with intravenous contrast. The patient was injected with 75 cc of Isovue-300. DOSE LINEAR PRODUCT: 358.78 mGy-cm. COMPARISON: 03/20/2025, 06/12/2025. FINDINGS: TONSILS/ADENOIDS: Since the last study the left peritonsillar abscess has increased in size. It measures 2.1 x 1.8 x 3.3 cm in AP, transverse and craniocaudal dimensions. It measures 1.5 x 1.5 x 2.2 cm on the last study. LYMPH NODES: There are reactive lymph nodes in the left side of the neck. SALIVARY GLANDS: Normal. NECK SPACES: Normal. VASCULATURE: Normal. PARANASAL SINUSES: Normal. ORBITS: Imaged portions appear normal. THYROID GLAND: Normal. LUNG APICES: Normal. CERVICAL SPINE: Normal. BRAIN: Imaged portions appear normal. IMPRESSION: The left peritonsillar abscess has increased in size since the last exam. No new abscess is seen. This report has been created using voice recognition software Signed by: Dr. David Murray at 06/14/2025 18:51 Normal [facility] Complete Blood Count with Di fferentialOrdered By: Shelley Hylton on 06-14-2025 Basophils (Bld) [#/Vol] 0.05 10*3/uL [facility] Basophils/100 WBC (Bld) 0.4 % 0.3 - 0.9 % [facility] Eosinophils (Bld) [#/Vol] 0.12 10*3/uL [facility] Eosinophils/100 WBC (Bld) 0.9 % 0.6 - 3.8 % [facility] Erythrocyte distribution width (RBC) [Ratio] 11.8 % Low 11.9 - 14.8 % [facility] Hematocrit (Bld) [Volume fraction] 38.6 % 35.5 - 44.6 % [facility] Hemoglobin (Bld) [Mass/Vol] 13.2 g/dL 11.4 - 14.8 g/dL [facility] Immature granulocytes/100 WBC (Bld) 0.4 % 0.2 - 0.5 % [facility] Comment on above: Immature Granulocyte Percent includes promyelocytes, myelocytes,and metamyelocytes. IG% > 1.0 indicates a left shift is present. With automated differentials, bands are included in the neutrophil count and not in the Immature Granulocyte Percent. Interpretation and review of laboratory results Abnormal [facility] Lymphocytes (Bld) [#/Vol] 2.02 10*3/uL [facility] Lymphocytes/100 WBC (Bld) 14.8 % Low 21.8 - 42.1 % [facility] MCH (RBC) [Entitic mass] 28.8 pg 25.7 - 31.2 pg [facility] MCHC (RBC) [Mass/Vol] 34.2 % High 31.3 - 34.0 % [facility] MCV (RBC) [Entitic vol] 84.1 fL 80.0 - 100.0 fL [facility] Monocytes (Bld) [#/Vol] 0.91 10*3/uL High [facility] Monocytes/100 WBC (Bld) 6.7 % 5.6 - 10.2 % [facility] Neutrophils (Bld) [#/Vol] 10.49 10*3/uL High [facility] Neutrophils/100 WBC (Bld) 76.8 % High 46.0 - 68.6 % [facility] Nucleated RBC/100 WBC (Bld) [Ratio] 0.0 % 0.0 - 0.0 % [facility] Platelet mean volume (Bld) [Entitic vol] 10.8 fL 9.6 - 11.9 fL [facility] Platelets (Bld) [#/Vol] 298 10*3/uL [facility] RBC (Bld) [#/Vol] 4.59 10*6/uL [facility] WBC (Bld) [#/Vol] 13.6 10*3/uL High [facility] ED Provider Progress Noteon 06-14-2025 Pant[employer] Eng[employer] Authentication Interface Message Text Jocelyn Barajas : 2005 Chief Complaint Patient presents with Abscess Throat Allergies[1] DOS: 06/14/2025 HPI History of Present Illness Angelia is a 20-year-old female that presents with worsening throat pain and feeling of throat swelling. She has a known left-sided peritonsillar abscess, as well as recurrent tonsillitis for which she is scheduled for a tonsillectomy tomorrow morning with ENT. Patient was admitted this week and discharged yesterday with peritonsillar abscess, treated with IV clindamycin transition to p.o. on discharge. Patient was overall doing well yesterday with a manageable amount of throat pain, and able to tolerate p.o. intake, but states this morning she woke up in significant pain and had difficulty breathing. States she felt her throat was more swollen. Denies recurrent fever, chills, chest pain or palpitations. She does have left-sided jaw pain, but denies pain into the ear. She denies wheezing or noisy breathing. Denies inability to tolerate secretions. Review of Systems Review of Systems Constitutional: Negative for fatigue and fever. HENT: Positive for sore throat, trouble swallowing and voice change. Negative for drooling, ear discharge, ear pain and facial swelling. Respiratory: Positive for shortness of breath. Negative for cough, chest tightness, wheezing and stridor. Cardiovascular: Negative for chest pain and palpitations. Gastrointestinal: Negative for abdominal pain, nausea and vomiting. Skin: Negative for pallor and rash. Neurological: Negative for facial asymmetry, weakness, light-headedness, numbness and headaches. All other systems reviewed and are negative. Patient History Past Medical History: Diagnosis Date ADHD (attention deficit hyperactivity disorder) Anxiety 03/10/2023 Asthma Depression Endometriosis 03/10/2023 Recurrent tonsillitis 03/20/2025 Urinary tract infection Past Surgical History: Procedure Laterality Date ABDOMINAL EXPLORATION SURGERY BLADDER SURGERY DENTAL SURGERY Pediatric History Patient Parents/Guardians JOCELYN BARAJAS (Self/Guardian) Flor Jiménez (Mother) Fernando Barajas (Father) Other Topics Concern Interpersonal relationships Not Asked Poor school performance Not Asked Reading difficulties Not Asked Speech difficulties Not Asked Writing difficulties Not Asked Toilet training problems Not Asked Inadequate sleep Not Asked Excessive TV viewing Not Asked Excessive video game use Not Asked Inadequate exercise Not Asked Sports related Not Asked Poor diet Not Asked Second-hand smoke exposure Not Asked Alcohol/drug concerns Not Asked Violence concerns Not Asked Poor oral hygiene Not Asked Bike safety Not Asked Vehicle safety Not Asked Social History Narrative Not on file ED Triage Vitals Date and Time Temp Temp src Pulse Resp BP SpO2 User 06/14/25 1244 36.9 C (98.4 F) Temporal 92 18 131/75 100 % NRB Physical Exam Vitals and nursing note reviewed. Constitutional: Appearance: She is not toxic-appearing. Comments: Tearful in moderate distress HENT: Head: Normocephalic and atraumatic. Jaw: Tenderness (Left side) present. No trismus or swelling. Right Ear: Tympanic membrane normal. Left Ear: Tympanic membrane normal. Mouth/Throat: Mouth: Mucous membranes are moist. No oral lesions. Pharynx: Posterior oropharyngeal erythema and uvula swelling present. Tonsils: Tonsillar exudate and tonsillar abscess (Left) present. Comments: Asymmetric swelling of the pharynx, more prominent on the left consistent with previous diagnoses [employer] Uvula slightly deviated to the right Airway is patent Cardiovascular: Rate and Rhythm: Normal rate and regular rhythm. Pulses: Normal pulses. Heart sounds: Normal heart sounds. Pulmonary: Effort: Pulmonary effort is normal. Breath sounds: Normal breath sounds. No stridor. No wheezing. Abdominal: Palpations: Abdomen is soft. Tenderness: There is no abdominal tenderness. Lymphadenopathy: Cervical: Cervical adenopathy present. Skin: General: Skin is warm. Capillary Refill: Capillary refill takes less than 2 seconds. Neurological: General: No focal deficit present. Mental Status: She is alert and oriented to person, place, and time. Physical Exam Procedures Encounter Documentation/Handof f: Diagnosis' considered: Peritonsillar abscess Labs/Radiology: CBC, BMP obtained Consults: Consults Ordered Procedures Draw [employer] Screening Inpatient consult to ENT Treatment/Reassessme nt: Admitting Provider Info: Reji Serna, [employer]ESS OPERATOR-SENIOR IT PROJECT MANAGER Hospitalist Medical Decision Making Patient is a 20-year-old female with recurrent tonsillitis, recently diagnosed left-sided peritonsillar abscess and acute tonsillitis that presents with worsening sore throat and difficulty breathing. Patient was discharged from the hospital yesterday after short inpatient stay for IV antibiot (more content not included)... Normal [facility] H&Ge 06-14-2025 Pantograph Engraver Authentication Interface Message Text [facility] MEDICINE HISTORY & PHYSICAL History of Present Illness Jocelyn is a 20 y.o. female with history of anxiety, ADHD, mild persistent asthma, seasonal allergies, endometriosis, and recurrent tonsillitis/peritons illar abscess who presents with left sided throat pain following recent admission and discharge yesterday (06/12-06/13) for intratonsillar abscess with planned upcoming tonsillectomy tomorrow. She again presents with worsening left sided throat pain on home oral antibiotics. Jocelyn has an extensive and recurrent history of tonsillitis and peritonsillar abscesses and has been working toward surgical removal which has been postponed multiple times due to recurrent infections. She was recently admitted 06/12-06/13 and at that time presented after 3 days of left sided throat pain, trismus, and muffled voice. She was evaluated by ENT and started on IV Clindamycin (d/t Amoxicillin allergy) with improvement in symptoms and continued plan for OR with ENT on 06/15. ENT recommended discharge due to improvement in pain and symptoms on oral antibiotics until surgery. ENT provider confirmed with anesthesia surgery still to occur on 06/15. She was discharged home yesterday afternoon 06/13 with Q8h oral Clindamycin prescription sent to local pharmacy. She then presented today with worsening left side throat pain which she rated 8/10, took antibiotic and sips of water for meds at home. Concern with worsening throat pain and feeling of difficulty swallowing. In the ED: Due to worsening pain given morphine and Tylenol in the ED along with a 500mL LR bolus and started on maintenance IVF. ENT evaluated and recommended admitted until surgery tomorrow, 06/15. No IV toradol, no Decadron. On the floor: Jocelyn in significant pain 10/10 described as squeezing and crushing and feeling like something is going to pop behind left ear up to her head. Noted to be shaking from pain, sweating, and tearful. She described the pain as the worst pain ever. Evaluated by Dr. Patten who recommended a stat neck CT with contrast. Updated ENT on worsening pain. Patient Information Past Medical History: Diagnosis Date ADHD (attention deficit hyperactivity disorder) Anxiety 03/10/2023 Asthma Depression Endometriosis 03/10/2023 Recurrent tonsillitis 03/20/2025 Urinary tract infection Past Surgical History: Procedure Laterality Date ABDOMINAL EXPLORATION SURGERY BLADDER SURGERY DENTAL SURGERY Medications Prior to Admission Medication Sig Dispense Refill Last Dose/Taking clindamycin (CLEOCIN) 300 MG capsule Take 2 Capsules (600 mg) by mouth every 8 hours for 2 days Starting 11PM on day of discharge. Ask ENT after surgery about need to extend course. 12 Capsule 0 06/14/2025 at 8:00 AM FLUoxetine (PROZAC) 10 MG capsule 06/13/2025 propranolol (INDERAL) 10 MG tablet Take 1 Tablet (10 mg) by mouth 2 times daily as needed for Other (anxiety) 06/13/2025 cetirizine (ZYRTEC) 10 MG tablet Take 1 Tablet (10 mg) by mouth daily 30 Tablet 11 06/13/2025 acetaminophen (TYLENOL) 500 MG tablet Take 2 Tablets (1,000 mg) by mouth every 6 hours as needed for Pain or Fever Take no more than 5 doses in a 24 hour period 30 Tablet 1 06/13/2025 Beclomethasone Diprop (QVAR REDIHALER) 40 MCG/ACT AERB Redihaler Inhale 2 Puffs into the lungs 2 times daily 1 Each 11 06/13/2025 Morning albuterol (VENTOLIN) (2.5 MG/3ML) 0.083% nebulizer solution Use 3 mL (2.5 mg) by nebulization every 4 hours as needed for Wheezing or Shortness of Breath (Cough) 100 Each 1 Past Week Spacer/Aero-Holding Chambers ([facility]) [facility] DEVICE Use with inhaled medication as instructed. 1 Each 0 Allergies[1] Objective 24-hour Vital Signs: BP Min: 96/70 Max: 145/95 Temp Av.3 C (99.1 F) Min: 36.9 C (98.4 F) Max: 37.7 C (99.9 F) Pulse Av.8 Min: 74 Max: 97 Resp Av.6 Min: 14 Max: 22 SpO2 Av.7 % Min: 97 % Max: 100 % Weight Av.4 kg Min: 56 kg Max: 58.8 kg Oxygen Therapy: None (Room air) General: In significant pain rated 10/10 to left neck and head. Crying, shaking, and sweating. Head: Atraumatic and normocephalic. Neuro: In significant pain, Oriented appropriately for age, no focal deficits. Able to smile, frown, puff cheeks. Eyes: PERRL. Non-icteric sclera and non-injected conjunctivae, no discharge present. Nose: Nares patent with no nasal discharge. Throat: MMM, Left tonsil 4+ with uvula mildly deviated across midline. Left palate/pharyngeal area bulging. Muffled voice. Neck: Supple with full ROM. Anterior chain cervical lymphadenopathy to L. Left side tenderness to palpation to left mastoid process and mandible. Chest: In no respiratory distress. Non-labored breathing in room air. CTAB with good a/e bilaterally. No wheezes, crackles or rhonchi noted. Cardiac: RRR, S1/S2 normal. No murmurs noted. Skin: [place], warm and dry. Well-perfused. No rashes or lesions noted. LDA: Patien (more content not included)... Normal [facility] HCG, URINEon 06-14-2025 Beta HCG ( test) Ql (U) Negative Normal Negative [facility] Comment on above: Order Comment: Relea se to patient->Automatic Result Comment: Nonp regnant females and males-Negative females-Positive HCG, UrineOrdered By: Tk Marley on 06-14-2025 HCG ( test) Ql (U) Negative Negative [facility] Comment on above: Non females and males-Negative females-Positive Interpretation and review of laboratory results Normal [facility] BASIC METABOLIC PANELon 10-2 Calcium [Mass/Vol] 10.0 mg/dL Normal 7.6-11.0 [facility] Comment on above: Order Comment: Relea se to patient->Automatic Result Comment: Veri fied By: [id number] Chloride [Moles/Vol] 104 mmol/L Normal 96-[address] [facility] Comment on above: Order Comment: Relea se to patient->Automatic Result Comment: Veri fied By: [id number] CO2 [Moles/Vol] 22.3 mmol/L Normal 22.0-29.0 [facility] Comment on above: Order Comment: Relea se to patient->Automatic Result Comment: Veri fied By: [id number] Creatinine [Mass/Vol] 0.74 mg/dL Normal 0.50-1.00 [facility] Comment on above: Order Comment: Relea se to patient->Automatic Result Comment: Veri fied By: [id number] GFR/1.73 sq M.predicted among non-blacks MDRD (S/P/Bld) [Vol rate/Area] mL/min/{1.73_m2} Normal >=60 [facility] Comment on above: Order Comment: Relea se to patient->Automatic Glucose [Mass/Vol] 85 mg/dL Normal 70-99 [facility] Comment on above: Order Comment: Relea se to patient->Automatic Result Comment: Crit eria for Diagnosis of Diabetes: Fasting Specimen (no caloric intake for at least 8 hours): <100 mg/dL Normal 100-125 mg/dL Increased risk for Diabetes >125 mg/dL Diagnostic for Diabetes Random Glucose (any time of day without regard to last meal): > or = 200 mg/dL plus Classic Symptoms of Diabetes Verified By: [id number] Potassium [Moles/Vol] 3.9 mmol/L Normal 3.3-5.1 [facility] Comment on above: Order Comment: Relea se to patient->Automatic Result Comment: Veri fied By: [id number] Sodium [Moles/Vol] 141 mmol/L Normal 133-145 [facility] Comment on above: Order Comment: Relea se to patient->Automatic Result Comment: Veri fied By: [id number] Urea nitrogen [Mass/Vol] 12 mg/dL Normal 4-19 [facility] Comment on above: Order Comment: Relea se to patient->Automatic Result Comment: Veri fied By: [id number] Basic metabolic panelon 10-2 0-2024 Calcium [Mass/Vol] 10.0 mg/dL 7.6 - 11. 0 mg/dL [facility] Comment on above: Verified By: [id number] Chloride [Moles/Vol] 104 mmol/L 96 - 10 8 mmol/L [facility] Comment on above: Verified By: [id number] Creatinine [Mass/Vol] 0.74 mg/dL 0.50 - 1.00 mg/dL [facility] Comment on above: Verified By: [id number] eGFR - PINF [facility] Glucose [Mass/Vol] 85 mg/dL 70 - 99 mg/dL [facility] Comment on above: Criteria for Diagnos is of Diabetes: Fasting Specimen (no caloric intake for at least 8 hours): <100 mg/dL Normal 100-125 mg/dL Increased risk for Diabetes >125 mg/dL Diagnostic for Diabetes Random Glucose (any time of day without regard to last meal): > or = 200 mg/dL plus Classic Symptoms of Diabetes Verified By: [id number] HCO3 (P) [Moles/Vol] 22.3 mmol/L 22.0 - 29.0 mmol/L [facility] Comment on above: Verified By: [id number] Interpretation and review of laboratory results Normal [facility] Potassium (BldA) [Moles/Vol] 3.9 mmol/L 3.3 - 5.1 mmol/L [facility] Comment on above: Verified By: [id number] Sodium [Moles/Vol] 141 mmol/L 133 - 145 mmol/L [facility] Comment on above: Verified By: [id number] Urea nitrogen [Mass/Vol] 12 mg/dL 4 - 19 mg/dL [facility] Comment on above: Verified By: [id number] C-REACTIVE PROTEINon 025 CRP 2.4 MG/DL High <=1.0 [facility] Comment on above: Order Comment: Relea se [...] to generate a CRP response. Verified By: [id number] C-reactive proteinon 025 CRP [Mass/Vol] 2.4 mg/L High NINF [facility] Comment on above: CRP determinations i n neonates should be interpreted with caution. CRP may be elevated in circumstances not associated with inflammation (e.g. difficult delivery, pneumothorax). In premature neonates CRP levels may not rise to abnormal levels even if sepsis is present; some speculate that immature liver function decreases the ability to generate a CRP response. Verified By: [id number] Interpretation and review of laboratory results Abnormal [facility] COMPLETE BLOOD COUNT WITH DI ALEXXNTIALon 06-12-2025 Basophil \P\ 0.06 10E3/???L Normal 0.02-0.06 [facility] Comment on above: Order Comment: Relea se to patient->Automatic Basophils/100 WBC (Bld) 0.5 % Normal 0.3-0.9 [facility] Comment on above: Order Comment: Relea se to patient->Automatic Eosinophil \P\ 0.08 10E3/???L Normal 0.04-0.27 [facility] Comment on above: Order Comment: Relea se to patient->Automatic Eosinophils/100 WBC (Bld) 0.6 % Normal 0.6-3.8 [facility] Comment on above: Order Comment: Relea se to patient->Automatic Erythrocyte distribution width (RBC) [Ratio] 11.7 % Low 11.9-14.8 [facility] Comment on above: Order Comment: Relea se to patient->Automatic Hematocrit (Bld) [Volume fraction] 40.5 % Normal 35.5-44.6 [facility] Comment on above: Order Comment: Relea se to patient->Automatic Hemoglobin (Bld) [Mass/Vol] 13.8 g/dL Normal 11.4-14.8 [facility] Comment on above: Order Comment: Relea se to patient->Automatic Immature granulocytes/100 WBC (Bld) 0.3 % Normal 0.2-0.5 [facility] Comment on above: Order Comment: Relea se to patient->Automatic Result Comment: Jina ture Granulocyte Percent includes promyelocytes, myelocytes,and metamyelocytes. IG% > 1.0 indicates a left shift is present. With automated differentials, bands are included in the neutrophil count and not in the Immature Granulocyte Percent. Lymphocyte \P\ 1.97 10E3/???L Normal 1.51-2.99 [facility] Comment on above: Order Comment: Relea se to patient->Automatic Lymphocytes/100 WBC (Bld) 15.2 % Low 21.8-42.1 [facility] Comment on above: Order Comment: Relea se to patient->Automatic MCH (RBC) [Entitic mass] 29.2 pg Normal 25.7-31.2 [facility] Comment on above: Order Comment: Relea se to patient->Automatic MCHC 34.1 % High 31.3-34.0 [facility] Comment on above: Order Comment: Relea se to patient->Automatic MCV (RBC) [Entitic vol] 85.6 fL Normal 80.0-100.0 [facility] Comment on above: Order Comment: Relea se to patient->Automatic Monocyte \P\ 0.83 10E3/???L High 0.36-0.77 [facility] Comment on above: Order Comment: Relea se to patient->Automatic Monocytes/100 WBC (Bld) 6.4 % Normal 5.6-10.2 [facility] Comment on above: Order Comment: Relea se to patient->Automatic Neutrophil \P\ 10.02 10E3/???L High 2.43-6.42 [facility] Comment on above: Order Comment: Relea se to patient->Automatic Neutrophils/100 WBC (Bld) 77.0 % High 46.0-68.6 [facility] Comment on above: Order Comment: Relea se to patient->Automatic Nucleated RBC/100 WBC (Bld) [Ratio] 0.0 % Normal 0.0-0.0 [facility] Comment on above: Order Comment: Relea se to patient->Automatic Platelet mean volume (Bld) [Entitic vol] 10.2 fL Normal 9.6-11.9 [facility] Comment on above: Order Comment: Relea se to patient->Automatic Platelets 314 10E3/???L Normal 150-400 [facility] Comment on above: Order Comment: Relea se to patient->Automatic RBC 4.73 10E6/???L Normal 4.03-4.91 [facility] Comment on above: Order Comment: Relea se to patient->Automatic WBC 13.0 10E3/???L High 4.9-10.0 [facility] Comment on above: Order Comment: Tory castro to patient->Automatic CT Nasopharynx and Neck W co ntrast Naina 06-12-2025 IMPRESSION: Left peritonsillar abscess. This report has been created using voice recognition software [facility] RADIOLOGY CLINICAL HISTORY: ? abscess. Left tonsillar swelling, history of peritonsillar abscess. TECHNIQUE: CT of the neck was performed with sagittal and coronal reformats with intravenous contrast. The patient was injected with 75 cc of Isovue-300. DOSE LINEAR PRODUCT: 321.70 mGy-cm. COMPARISON: 03/20/2025 FINDINGS: TONSILS/ADENOIDS: There is enlargement of the left palatine tonsil. There is a left peritonsillar abscess which measures 1.5 x 1.5 x 2.2 cm in the AP, transverse and craniocaudal dimensions. On the previous exam the peritonsillar abscess measured 2.2 x 2.0 x 3.5 cm. LYMPH NODES: There are reactive lymph nodes in the left side of the neck. SALIVARY GLANDS: Normal. NECK SPACES: Normal. VASCULATURE: Normal. PARANASAL SINUSES: Normal. ORBITS: Imaged portions appear normal. THYROID GLAND: Normal. LUNG APICES: Normal. CERVICAL SPINE: Normal. BRAIN: Imaged portions appear normal. [facility] RADIOLOGY David Murray MD - 06/12/2025 CLINICAL HISTORY: ? abscess. Left tonsillar swelling, history of peritonsillar abscess. TECHNIQUE: CT of the neck was performed with sagittal and coronal reformats with intravenous contrast. The patient was injected with 75 cc of Isovue-300. DOSE LINEAR PRODUCT: 321.70 mGy-cm. COMPARISON: 03/20/2025 FINDINGS: TONSILS/ADENOIDS: There is enlargement of the left palatine tonsil. There is a left peritonsillar abscess which measures 1.5 x 1.5 x 2.2 cm in the AP, transverse and craniocaudal dimensions. On the previous exam the peritonsillar abscess measured 2.2 x 2.0 x 3.5 cm. LYMPH NODES: There are reactive lymph nodes in the left side of the neck. SALIVARY GLANDS: Normal. NECK SPACES: Normal. VASCULATURE: Normal. PARANASAL SINUSES: Normal. ORBITS: Imaged portions appear normal. THYROID GLAND: Normal. LUNG APICES: Normal. CERVICAL SPINE: Normal. BRAIN: Imaged portions appear normal. IMPRESSION: Left peritonsillar abscess. This report has been created using voice recognition software [facility] Radiology Study observation (narrative) [facility] CT Nasopharynx and Neck W co ntrast IVOrdered By: David Murray on 06-12-2025 [facility] Work Phone: CT SOFT TISSUE NECK WITH IV CONTRASTon 06-12-2025 CT SOFT TISSUE NECK WITH IV CONTRAST CLINICAL HISTORY: ? abscess. Left tonsillar swelling, history of peritonsillar abscess. TECHNIQUE: CT of the neck was performed with sagittal and coronal reformats with intravenous contrast. The patient was injected with 75 cc of Isovue-300. DOSE LINEAR PRODUCT: 321.70 mGy-cm. COMPARISON: 03/20/2025 FINDINGS: TONSILS/ADENOIDS: There is enlargement of the left palatine tonsil. There is a left peritonsillar abscess which measures 1.5 x 1.5 x 2.2 cm in the AP, transverse and craniocaudal dimensions. On the previous exam the peritonsillar abscess measured 2.2 x 2.0 x 3.5 cm. LYMPH NODES: There are reactive lymph nodes in the left side of the neck. SALIVARY GLANDS: Normal. NECK SPACES: Normal. VASCULATURE: Normal. PARANASAL SINUSES: Normal. ORBITS: Imaged portions appear normal. THYROID GLAND: Normal. LUNG APICES: Normal. CERVICAL SPINE: Normal. BRAIN: Imaged portions appear normal. IMPRESSION: Left peritonsillar abscess. This report has been created using voice recognition software Signed by: Dr. David Murray at 06/12/2025 15:17 Normal [facility] Complete Blood Count with Di fferentialOrdered By: Maria Luisa Brandt on 06-12-2025 Basophils (Bld) [#/Vol] 0.06 10*3/uL [facility] Basophils/100 WBC (Bld) 0.5 % 0.3 - 0.9 % [facility] Eosinophils (Bld) [#/Vol] 0.08 10*3/uL [facility] Eosinophils/100 WBC (Bld) 0.6 % 0.6 - 3.8 % [facility] Erythrocyte distribution width (RBC) [Ratio] 11.7 % Low 11.9 - 14.8 % [facility] Hematocrit (Bld) [Volume fraction] 40.5 % 35.5 - 44.6 % [facility] Hemoglobin (Bld) [Mass/Vol] 13.8 g/dL 11.4 - 14.8 g/dL [facility] Immature granulocytes/100 WBC (Bld) 0.3 % 0.2 - 0.5 % [facility] Comment on above: Immature Granulocyte Percent includes promyelocytes, myelocytes,and metamyelocytes. IG% > 1.0 indicates a left shift is present. With automated differentials, bands are included in the neutrophil count and not in the Immature Granulocyte Percent. Interpretation and review of laboratory results Abnormal [facility] Lymphocytes (Bld) [#/Vol] 1.97 10*3/uL [facility] Lymphocytes/100 WBC (Bld) 15.2 % Low 21.8 - 42.1 % [facility] MCH (RBC) [Entitic mass] 29.2 pg 25.7 - 31.2 pg [facility] MCHC (RBC) [Mass/Vol] 34.1 % High 31.3 - 34.0 % [facility] MCV (RBC) [Entitic vol] 85.6 fL 80.0 - 100.0 fL [facility] Monocytes (Bld) [#/Vol] 0.83 10*3/uL High [facility] Monocytes/100 WBC (Bld) 6.4 % 5.6 - 10.2 % [facility] Neutrophils (Bld) [#/Vol] 10.02 10*3/uL High [facility] Neutrophils/100 WBC (Bld) 77.0 % High 46.0 - 68.6 % [facility] Nucleated RBC/100 WBC (Bld) [Ratio] 0.0 % 0.0 - 0.0 % [facility] Platelet mean volume (Bld) [Entitic vol] 10.2 fL 9.6 - 11.9 fL [facility] Platelets (Bld) [#/Vol] 314 10*3/uL [facility] RBC (Bld) [#/Vol] 4.73 10*6/uL [facility] WBC (Bld) [#/Vol] 13.0 10*3/uL [facility] ED Provider Progress Noteon 06-12-2025 Pant[employer] Eng[employer]ver Authentication Interface Message Text Jocelyn Barajas : 2005 Chief Complaint Patient presents with Sore Throat (Pharyngitis) Abscess Allergies[1] DOS: 06/12/2025 20-year-old female presenting to the emergency department with concerns for worsening oropharyngeal swelling. Patient has had recurrent peritonsillar abscesses in the past, involving both the left and right Sides, and she was scheduled to undergo tonsillectomy on June 15. Left-sided oropharyngeal swelling has been worsening over the past several days. She endorses some trismus and respiratory distress prior to arrival but none since being in the emergency department. States that she has pain with swallowing and therefore p.o. intake has been greatly diminished. No other symptoms or medical concerns reported. The history is provided by the patient and a parent. History of Present Illness Review of Systems Review of Systems Patient History Past Medical History: Diagnosis Date ADHD (attention deficit hyperactivity disorder) Anxiety 03/10/2023 Asthma Endometriosis 03/10/2023 Recurrent tonsillitis 03/20/2025 Urinary tract infection Past Surgical History: Procedure Laterality Date ABDOMINAL EXPLORATION SURGERY BLADDER SURGERY DENTAL SURGERY Pediatric History Patient Parents/Guardians JOCELYN BARAJAS (Self/Guardian) Flor Jiménez (Mother) Fernando Barajas (Father) Other Topics Concern Interpersonal relationships Not Asked Poor school performance Not Asked Reading difficulties Not Asked Speech difficulties Not Asked Writing difficulties Not Asked Toilet training problems Not Asked Inadequate sleep Not Asked Excessive TV viewing Not Asked Excessive video game use Not Asked Inadequate exercise Not Asked Sports related Not Asked Poor diet Not Asked Second-hand smoke exposure Not Asked Alcohol/drug concerns Not Asked Violence concerns Not Asked Poor oral hygiene Not Asked Bike safety Not Asked Vehicle safety Not Asked Social History Narrative Not on file ED Triage Vitals Date and Time Temp Temp src Pulse Resp BP SpO2 User 06/12/25 1415 36.5 C (97.7 F) -- 88 20 -- 99 % TRH 06/12/25 1206 37 C (98.6 F) Temporal 112 22 121/69 100 % CLS Physical Exam Constitutional: General: She is not in acute distress. Appearance: She is well-developed and normal weight. She is not ill-appearing, toxic-appearing or diaphoretic. HENT: Head: Normocephalic and atraumatic. Nose: No congestion or rhinorrhea. Mouth/Throat: Mouth: Mucous membranes are pale, dry and cyanotic. No oral lesions. Pharynx: Pharyngeal swelling, posterior oropharyngeal erythema and uvula swelling present. No oropharyngeal exudate. Tonsils: Tonsillar abscess present. 2+ on the left. Comments: Left-sided peritonsillar abscess with pus visible at the superior pole of the tonsil. Uvular deviation. Eyes: Extraocular Movements: Right eye: Normal extraocular motion. Left eye: Normal extraocular motion. Conjunctiva/sclera: Conjunctivae normal. Pupils: Pupils are equal, round, and reactive to light. Neck: Musculoskeletal: Normal range of motion and neck supple. Thyroid: No thyromegaly. Cardiovascular: Rate and Rhythm: Normal rate and regular rhythm. Heart sounds: Normal heart sounds. No murmur heard. No friction rub. No gallop. Pulmonary: Effort: Pulmonary effort is normal. No respiratory distress. Breath sounds: Normal breath sounds. No stridor. No wheezing, rhonchi or rales. Chest: Chest wall: No tenderness. Abdominal: General: Bowel sounds are normal. There is no distension. Palpations: Abdomen is soft. There is no mass. Tenderness: There is no abdominal tenderness. There is no guarding or rebound. Hernia: No hernia is present. Musculoskeletal: Cervical back: Normal range of motion and neck supple. Lymphadenopathy: Cervical: No cervical adenopathy. Skin: General: Skin is warm and dry. Capillary Refill: Capillary refill takes less than 2 seconds. Coloration: Skin is not pale. Findings: No erythema or rash. Neurological: General: No focal deficit present. Mental Status: She is alert and oriented to person, place, and time. Physical Exam Procedures Encounter Documentation/Handof f: Diagnosis' considered: Labs/Radiology: CT Soft Tissue Neck with IV contrast Final Result IMPRESSION: Left peritonsillar abscess. This report has been created using voice recognition software Labs Reviewed COMPLETE BLOOD COUNT WITH DIFFERENTIAL - Abnormal; Notable for the following components: Result Value WBC 13.0 (*) MCHC 34.1 (*) RDW CV 11.7 (*) Neutrophil # 10.02 (*) Monocyte # 0.83 (*) % Neutrophils 77.0 (*) % Lymphocytes 15.2 (*) All other components within normal limits C-REACTIVE PROTEIN - Abnormal; Notable for the following components: CRP 2.4 (*) All other components within normal limits BASIC METABOLIC PANEL - Normal HCG, SERUM - Normal Consults: No orders of the (more content not included)... Normal [facility] H&Ge 06-12-2025 Pantograph Engraver Authentication Interface Message Text [facility] MEDICINE HISTORY & PHYSICAL History of Present Illness Jocelyn is a 20 y.o. female with history of anxiety, ADHD, mild persistent asthma, seasonal allergies, endometriosis, and recurrent tonsillitis/peritons illar abscess who presents with left sided throat pain. She is accompanied by her mother. Jocelyn started to have a throat tickle 3 days ago. 2 days ago, she had worsening left sided throat pain. She agreed her voice was more muffled, was told she sounded like she had cotton balls in her mouth; she also had associated trismus and respiratory distress which improved with PRN Albuterol nebs. She had decreased PO intake and UOP. The left sided throat pain worsened, so ENT office was called and she was advised to be seen in the ED. In the ED, she was afebrile on arrival, HR 112, otherwise stable vitals. Mucous membranes were dry, left sided tonsillar swelling and uvular deviation present on exam. She was given a dose of Morphine 4 mg (1351) for pain 6/10. CT soft tissue neck with contrast was obtained and showed a left peritonsillar abscess measuring 1.5 x 1.5 x 2.2 cm. She was given a dose of Decadron 8 mg (1412), ~18 ml/kg NS bolus (1432) and a dose of Clindamycin (due to PCN allergy, at 1506) after speaking with ENT. Labs obtained including CBCd (WBC 13.0, 77& neutrophils, 15% lymphs); BMP (WNL), CRP (2.4) and urine HCG negative. She tolerated a few ice chips in the ED, but otherwise has not eaten anything. She has voided twice today. No respiratory distress noted in ED. Admitted to the acute care floor for IV antibiotics and re-evaluation with ENT. On arrival to the floor, she was well appearing. She feels slightly better and attributes this to the spontaneous drainage of the abscess. She can taste it and was able to spit some out earlier. Jocelyn and mom apprehensive due to having tonsillectomy surgery scheduled in 3 days on 06/[address] Novak which was already rescheduled prior due to an asthma exacerbation. They feel she has had so many tonsillar abscesses, they just want her tonsils out and are afraid this will not happen given her admission. Reached out to night house mover helper, Alis Couch PA-C who stated ENT will see her in AM, but to hold off on Motrin for now in case surgery does happen as planned. Updated bedside RN, mother and patient. Jocelyn asking for a chocolate milk and ordered a dinner tray. Patient Information Past Medical History: Diagnosis Date ADHD (attention deficit hyperactivity disorder) Anxiety 03/10/2023 Asthma Endometriosis 03/10/2023 Recurrent tonsillitis 03/20/2025 Urinary tract infection Past Surgical History: Procedure Laterality Date ABDOMINAL EXPLORATION SURGERY BLADDER SURGERY DENTAL SURGERY (Not in a hospital admission) Allergies[1] Objective 24-hour Vital Signs: BP Min: 105/68 Max: 121/69 Temp Av.7 C (98.1 F) Min: 36.5 C (97.7 F) Max: 37 C (98.6 F) Pulse Av.7 Min: 60 Max: 112 Resp Av Min: 18 Max: 22 SpO2 Av.3 % Min: 99 % Max: 100 % Weight Av.5 kg Min: 55.5 kg Max: 55.5 kg General: Patient appears healthy, well developed, well nourished, in no acute distress, smiling, playful, and interactive Head: atraumatic and normocephalic Neuro: alert, oriented appropriately for age, pupils: PERRL, normal muscle tone, strength and bulk Eyes: pupils equal, round, and reactive to light, sclera and conjunctiva clear Ears: canals clear, normal, tragus nontender, TM's clear bilaterally Nose: nares patent without discharge Throat: uvula is deviated right, tonsils are 4+ (severely enlarged) on the left with pus present and with erythema, palate intact, mucous membranes are pink and moist without lesions Neck: there is full range of motion, mild pain with lateral movement, cervical lymphadenopathy present on L Chest: breath sounds are clear to auscultation bilaterally without rales, rhonchi, or wheezes, easy work of breathing in room air Cardiac: regular rate and rhythm, normal S1 and S2, peripheral pulses strong and equal Abdomen: soft, nontender, nondistended, and bowel sounds are hypoactive Skin: pink, warm, well perfused, PIV to L wrist Musculoskeletal: normal tone, moves all extremities equally with full range of motion LDA: Patient Lines/Drains/Airways Status Active LDAs Name Placement date Placement time Site Days Peripheral IV 06/12/25 22 Left Wrist 06/12/25 1354 -- less than 1 Assessment & Plan Peritonsillar abscess Jocelyn Barajas is a 20 y.o. female with history of anxiety, ADHD, mild persistent asthma, seasonal allergies, endometriosis, and recurrent tonsillitis admitted for left peritonsillar abscess requiring IV antibiotics and monitoring pain control and hydration. - Routine vitals - Notify provider for vitals outside of ordered parameters - Tylenol 1000 mg PO Q6h ATC - Hold off on Motrin for now due to chance of surgery 06/15 - Oxycodone 5 mg (more content not included)... Normal [facility] HCG, SERUMon 06-12-2025 HCG, serum Negative Normal Negative [facility] Comment on above: Order Comment: Reaso n for preventing automatic release->OtherRelease to patient->Automatic (5 days after final result) Result Comment: Nonp regnant females and males-Negative females-Positive HCG, qualitative, serumOrder ed By: Isaiah Flood on 06-12-2025 HCG ( test) Ql Negative Negative A [facility] Comment on above: Non females and males-Negative females-Positive Interpretation and review of laboratory results Normal [facility] No Panel Informationon 06-12 [facility] Progress Noteon 04-26-2025 Pantograph Eng[employer]ver Authentication Interface Message Text Patient ID: Jocelyn Barajas is a 20 y.o. female. Her chief complaint(s) include: Pharyngitis (Has been going on for about 3-4days now ) Assessment 1. Acute pharyngitis, unspecified etiology 2. Mild persistent asthma, uncomplicated 3. Mild persistent asthma without complication 4. Wheezing-associated respiratory infection (WARI) 5. URI, acute 6. Sorethroat Plan Jocelyn was seen today for pharyngitis. Diagnoses and associated orders for this visit: Acute pharyngitis, unspecified etiology Mild persistent asthma, uncomplicated - Spacer/Aero-Holding Chambers (OPTICHAMBER ALICIA) MISC DEVICE; Use with inhaled medication as instructed. Mild persistent asthma without complication - albuterol 108 (90 Base) MCG/ACT inhaler; Inhale 2 Puffs into the lungs every 4 hours as needed for Wheezing or Shortness of Breath Wheezing-associated respiratory infection (WARI) - predniSONE (DELTASONE) 20 MG tablet; Take 1 Tablet (20 mg) by mouth 2 times daily for 5 days Take with food URI, acute Sorethroat - POCT ID NOW Rapid Strep A NAAT Discussed with mother and Jocelyn. Reasurance. Advised this is most likely Adenovirus and will take a few more days to run its course. Symptomatic treatment only for the upper respiratory infection symptoms. Call in a few days with update. Follow Up Return for Well Visit and as needed. Subjective History of Present Illness She is accompanied by her mother. Independent history obtained from mother. Pharyngitis The duration has been 3 days. The course is unchanging. Characterized by burning. Aggravated by eating and drinking. Symptoms are relieved by drinking warm liquids. The patient's symptoms have included malaise, decreased appetite, difficulty sleeping, headaches, ear pain (pludgged up as well), congestion, shortness of breath, wheezing and cough (dry). The patient's symptoms have included no fever and no decreased fluid intake. The patient felt warm per caregiver (tactile temperature). The patient has been exposed to sick contacts with similar symptoms at home . The patient's home management has included anti-histamines (Mucinex). Additional Parental Concerns: Needs anew albuterol inhaler and a new spacer. Primary Care Review of Systems Objective Vital Signs 04/26/25 1007 Temp: 36.6 C (97.8 F) TempSrc: Temporal Weight: 60.4 kg There is no height or weight on file to calculate BMI. Physical Exam Nursing note reviewed. Constitutional: Vital signs are normal. She appears well-developed and well-nourished. She appears listless. She is cooperative. She appears ill. No distress. HENT: Head: Normocephalic and atraumatic. No sinus tenderness. Ears: Right Ear: Tympanic membrane and external ear normal. Left Ear: Tympanic membrane and external ear normal. Nose: Nasal mucosa is erythematous. Nasal discharge (clear, mucoid) and congestion present. Mouth/Throat: Mucous membranes are moist. Tongue is normal. No oral lesions. Dentition is normal. Pharynx erythema and postnasal drip present. Tonsils are 2+ on the right. Tonsils are 2+ on the left. No tonsillar exudate. Eyes: Conjunctivae and lids are normal. Negative for strabismus. No periorbital edema or erythema on the right side. No periorbital edema or erythema on the left side. Neck: Neck supple. No tracheal tenderness present. Cardiovascular: Normal rate, regular rhythm, S1 normal and S2 normal. Heart murmur not heard. Pulmonary/Chest: Effort normal. No accessory muscle usage or stridor. She has no decreased breath sounds. She has wheezes (mild expiratory throughout). She has no rhonchi. She has no rales. Exhibits no retraction. Musculoskeletal: Cervical back: Normal range of motion and neck supple. Lymphadenopathy: Right anterior cervical adenopathy present. No right posterior cervical adenopathy present. Left anterior cervical adenopathy present. No left posterior cervical adenopathy present. Neurological: No focal deficit present. She appears listless. Skin: Capillary refill takes less than 3 seconds. Skin is warm and dry. Skin is not pale. Findings: No rash. Vitals reviewed: Temperature 36.6 C (97.8 F), temperature source Temporal, weight 60.4 kg. Last Result Rapid Strep A POCT NAAT Collection Time: 04/26/25 10:45 AM Result Value Ref Range Group A Strep Negative Negative Normal [facility] RAPID STREP A POCT Tabitha Group A Strep Negative Normal Negative [facility] Comment on above: Order Comment: Tory castro to patient->Automatic Progress Noteon 03-29-2025 Pantograph Engraver Authentication Interface Message Text Patient ID: Jocelyn Barajas is a 19 y.o. female. Her chief complaint(s) include: Follow Up and Urticaria Assessment 1. Hives Plan oJcelyn was seen today for follow up and urticaria. Diagnoses and associated orders for this visit: Hives - cetirizine (ZYRTEC) 10 MG tablet; Take 1 Tablet (10 mg) by mouth daily Patient with history of hives/urticaria that seemed to be due to omnicef/cefdinir. Antibiotics were discontinued and patient switched to clindamycin to treat peritonsillar abscess. Patient had been placed on prednisone and is on the last day of the oral steroids. Hives seem to have resolved. Will have patient start on zyrtec daily to try to keep the hives under control. May use benadryl if hives reappear. Patient scheduled to get tonsils removed next month. To follow up if symptoms worsen or concerns. Follow Up Return if symptoms worsen or fail to improve. Subjective History of Present Illness She is accompanied by her mother. Independent history obtained from mother. Follow Up This problem is new (hives: secondary to omnicef). The duration has been 3 days. The onset has been acute. The course is improving. The patient's symptoms have included no fatigue, no fever, no fussiness, no decreased appetite, no decreased fluid intake, no difficulty sleeping, no congestion, no rhinorrhea, no sore throat, no cough, no productive cough, no shortness of breath, no wheezing, no bilateral ear pain, no diarrhea (due to stool softener---looser stools) and no rash (hives seem to have resolved). Location: whole body. Exacerbated by: antibiotics. (Currently on prednisone 40mg po daily x 3 days, now on clindamycin for the tonsillar abscess.). Primary Care Review of Systems Objective Vital Signs 03/29/25 1039 Temp: 36.8 C (98.2 F) TempSrc: Temporal Weight: 58.7 kg Height: 165.1 cm Body mass index is 21.53 kg/m . Physical Exam Constitutional: She appears well. She is active. No distress. HENT: Head: Atraumatic. Ears: Right Ear: Tympanic membrane normal. Left Ear: Tympanic membrane normal. Nose: No nasal discharge. Mouth/Throat: Mucous membranes are moist. No pharynx erythema. Cardiovascular: Normal rate and regular rhythm. Heart murmur not heard. Pulmonary/Chest: Breath sounds normal. There is normal air entry. Neurological: She is alert. Skin: Findings: No rash. Vitals reviewed: Temperature 36.8 C (98.2 F), temperature source Temporal, height 165.1 cm, weight 58.7 kg, last menstrual period 02/23/2025. Normal [facility] 03-27-2025 [facility] Office Visit ([facility]) JOCELYN BARAJAS ([id number]) 5 F Date Time Provider Department 03/27/25 5:15 PM SRIRAM STEWART During your visit today, we recorded the following information about you: Temperature Pulse Respiration Blood pressure 97.9 degrees 95/minute 18/minute 100/72 Weight 59.8 kg Sriram Stewart APRN.SENIOR IT PROJECT MANAGER 03/27/2025 7:01 PM Signed [facility] Subjective HPI HPI Jocelyn Kathy is a 19 year old female who presents today for CC of itchy rash after starting antibiotics. Has tried nothing for relief. Symptoms are worsened by nothing. Risk factors has pcn allergy. Being treated for peritonsillar abscess with cefdinir and clindamycin. Denies cp/sob. .Patient presents with: Allergic Reaction: Possible allergic reaction to medication, hives, itchy redness, chests, BEATRIZ legs No past medical history on file. No past surgical history on file. ALLERGIES Grass Pollen and Penicillins MEDICATIONS albuterol (PROVENTIL) 2.5 mg /3 mL (0.083 %) nebulizer solution Use 3 mL via nebulizer every 4 hours as needed. Use over 5-15minutes. albuterol (PROVENTIL) 2.5 mg /3 mL (0.083 %) nebulizer solution Use 3 mL via nebulizer every 4 hours as needed for wheezing/shortness of breath. Use over 5-15minutes. predniSONE (DELTASONE) 20 mg tablet Take 2 tablets by mouth once daily for 3 days. Take daily with food. loratadine (CLARITIN) 10 mg tablet (Patient not taking: Reported on 03/27/2025) D-MANNOSE ORAL Take 2,000 mg by mouth. (Patient not taking: Reported on 03/27/2025) VITAMIN C 500 mg tablet (Patient not taking: Reported on 03/27/2025) L. acidophilus-L. salivarius-B. bifidum-S. thermophilus (ACIDOPHILUS PROBIOTIC BLEND) 175 mg capsule (Patient not taking: Reported on 03/27/2025) SENEXON-S 8.6-50 mg per tablet (Patient not taking: Reported on 03/27/2025) cabergoline (DOSTINEX) 0.5 mg tablet 0.5 mg every Thursday and Thursday. Inserted vaginally HS (Patient not taking: Reported on 03/27/2025) Cholecalciferol, Vitamin D3, 25 mcg (1,000 unit) cap Take 5,000 Units by mouth once daily. (Patient not taking: Reported on 03/27/2025) FLOVENT HFA 44 mcg/actuation inhaler (Patient not taking: Reported on 12/29/2023) metFORMIN ER (GLUCOPHAGE XR) 500 mg 24 hr tablet Take 1,000 mg by mouth two times a day. (Patient not taking: Reported on 03/27/2025) loratadine (CLARITIN ORAL) Take by mouth. (Patient not taking: Reported on 03/27/2025) melatonin 1 mg tablet Take by mouth. (Patient not taking: Reported on 03/27/2025) ibuprofen (MOTRIN) 600 mg tablet Take 1 [...] Never Vaping Use Vaping status: Never Used Review of Systems Objective BP 100/72 Pulse 95 Temp 36.6 ?C (97.9 ?F) Resp 18 Wt 59.8 kg (131 lb 13.4 oz) LMP 12/24/2023 (Exact Date) SpO2 98% BMI 22.07 kg/m? Physical Exam Constitutional: General: She is not in acute distress. Appearance: She is not toxic-appearing or diaphoretic. HENT: Head: Normocephalic and atraumatic. Mouth/Throat: Lips: [place]. Mouth: Mucous membranes are moist. Pharynx: Uvula midline. Posterior oropharyngeal erythema present. Tonsils: No tonsillar abscesses. Cardiovascular: Rate and Rhythm: Normal rate and regular rhythm. Heart sounds: Normal heart sounds, S1 normal and S2 normal. Pulmonary: Effort: Pulmonary effort is normal. Breath sounds: Normal breath sounds. Lymphadenopathy: Cervical: No cervical adenopathy. Right cervical: No superficial cervical adenopathy. Left cervical: No superficial cervical adenopathy. Skin: Neurological: Mental Status: She is alert and oriented to person, place, and time. {ASSESSMENT/PLAN: 1. Rash - ICD9: 782.1, ICD10: R21 Hold cefdinir Continue clinda Few days of steroids ordered Urgent f/u for red flag s/s. - PREDNISONE 20 MG TABLET Sriram Stewart APRN.S[employer]IOR IT PROJECT MANAGER History and Record Review External record(s) reviewed: prior outpatient record. Disposition The patient was discharged. Procedures Referring Provider: SELF [[id number]] Allergies As of Date: 03/27/2025 Noted Allergy Reaction GRASS POLLEN 04/24/2024 16 - Unknown PENICILLINS 04/24/2024 16 - Unknown Date Reviewed: 03/27/2025 Reviewed by: Brigette Rincon MA - Fully Assessed Reason for Visit: Allergic Reaction [201] Cmt: Possible allergic reaction to medication, hives, itchy redness, chests, BEATRIZ legs Primary Visit Diagnosis:Rash [R2 (more content not included)... Normal [facility] Progress Noteon 03-24-2025 Pantograph Engraver Authentication Interface Message Text Patient ID: Jocelyn Barajas is a 19 y.o. female. Her chief complaint(s) include: ED Follow Up Assessment 1. Peritonsillar abscess 2. Hospital discharge follow-up 3. Constipation, unspecified constipation type Plan Jocelyn was seen today for ed follow up. Diagnoses and associated orders for this visit: Peritonsillar abscess Hospital discharge follow-up Constipation, unspecified constipation type - docusate sodium (COLACE) 100 MG CAPS capsule; Take 1 Capsule (100 mg) by mouth daily as needed for Constipation for up to 14 days Follow Up Return if symptoms worsen or fail to improve. Peritonsillar abscess much improved. Will complete full course of antibiotics. Has T&A scheduled in April. Family to call with any questions or concerns. Can treat constipation with colace as needed since it was helpful in the hospital. Also recommended miralax. Discussed doing a constipation cleanout once done with antibiotics if still having trouble stooling or if having any abdominal pain. Cleanout instructions given. Subjective History of Present Illness HPI Comments: Admitted for peritonsillar abscess requiring IV antibiotics, drained spontaneously. Discharged on oral antibiotics for total 14 days. Taking clindamycin and omnicef. Feeling much better. Throat is still a little sore where the abscess was but not painful like it was. Can sleep, eat, and breathe normally. Scheduled for T&A on 05/11. Jocelyn has been having more trouble stooling since being in the hospital. She has a longstanding history of constipation and has taken different laxatives over time to help. She was given colace in the hospital and found it very helpful. She is accompanied by her mother. Independent history obtained from mother. ED Follow Up Primary Care Review of Systems Objective Vital Signs 03/24/25 0946 Temp: 36.2 C (97.2 F) TempSrc: Temporal Weight: 61.2 kg Body mass index is 22.48 kg/m . Physical Exam Constitutional: She appears well. She is active. No distress. HENT: Head: Atraumatic. Ears: Right Ear: Tympanic membrane and external ear normal. Left Ear: Tympanic membrane and external ear normal. Nose: No nasal discharge. Mouth/Throat: Mucous membranes are moist. Pharynx erythema (mild, especially on left posterior oropharynx) present. No tonsillar exudate. Eyes: Right eyelid exhibits no discharge. Left eyelid exhibits no discharge. Right conjunctiva is not injected. Left conjunctiva is not injected. Neck: Neck supple. Cardiovascular: Normal rate and regular rhythm. Heart murmur not heard. Pulmonary/Chest: Effort normal. There is normal air entry. No respiratory distress. She has no wheezes. She has no rhonchi. She has no rales. Abdominal: Soft. There is abdominal tenderness (mild tenderness to left upper abdomen, no other tenderness with palpation). Musculoskeletal: Cervical back: Normal range of motion and neck supple. Lymphadenopathy: No right anterior and posterior cervical adenopathy present. No left anterior and posterior cervical adenopathy present. Neurological: She is alert. Skin: Skin is warm. Skin is not pale. Vitals reviewed: Temperature 36.2 C (97.2 F), temperature source Temporal, weight 61.2 kg, last menstrual period 02/23/2025. Normal [facility] Bacteria identified Cx Nom ( U)Ordered By: Ping Omalley on 03-22-2025 [facility] Urine cultureOrdered By: Hazel Omalley on 03-22-2025 Bacteria identified Cx Nom (U) Three or more organisms present, none are predominant, which usually suggests contamination during collection. Recollect sample if clinically indicated. [facility] BASIC METABOLIC PANELon 07-2 Calcium [Mass/Vol] 9.5 mg/dL Normal 7.6-11.0 [facility] Comment on above: Order Comment: Relea se to patient->Automatic Result Comment: Veri fied By: [id number] Chloride [Moles/Vol] 101 mmol/L Normal 96-[address] [facility] Comment on above: Order Comment: Relea se to patient->Automatic Result Comment: Veri fied By: [id number] CO2 [Moles/Vol] 24.4 mmol/L Normal 22.0-29.0 [facility] Comment on above: Order Comment: Relea se to patient->Automatic Result Comment: Veri fied By: [id number] Creatinine [Mass/Vol] 0.69 mg/dL Normal 0.50-1.00 [facility] Comment on above: Order Comment: Relea se to patient->Automatic Result Comment: Veri fied By: [id number] GFR/1.73 sq M.predicted among non-blacks MDRD (S/P/Bld) [Vol rate/Area] mL/min/{1.73_m2} Normal >=60 [facility] Comment on above: Order Comment: Relea se to patient->Automatic Glucose [Mass/Vol] 88 mg/dL Normal 70-99 [facility] Comment on above: Order Comment: Relea se to patient->Automatic Result Comment: Crit eria for Diagnosis of Diabetes: Fasting Specimen (no caloric intake for at least 8 hours): <100 mg/dL Normal 100-125 mg/dL Increased risk for Diabetes >125 mg/dL Diagnostic for Diabetes Random Glucose (any time of day without regard to last meal): > or = 200 mg/dL plus Classic Symptoms of Diabetes Verified By: [id number] Potassium [Moles/Vol] 3.8 mmol/L Normal 3.3-5.1 [facility] Comment on above: Order Comment: Relea se to patient->Automatic Result Comment: Veri fied By: [id number] Sodium [Moles/Vol] 140 mmol/L Normal 133-145 [facility] Comment on above: Order Comment: Relea se to patient->Automatic Result Comment: Veri fied By: [id number] Urea nitrogen [Mass/Vol] 10 mg/dL Normal 4-19 [facility] Comment on above: Order Comment: Relea se to patient->Automatic Result Comment: Veri fied By: [id number] Basic metabolic panelon 02-22 Calcium [Mass/Vol] 9.5 mg/dL 7.6 - 11. 0 mg/dL [facility] Comment on above: Verified By: [id number] Chloride [Moles/Vol] 101 mmol/L 96 - 10 8 mmol/L [facility] Comment on above: Verified By: [id number] Creatinine [Mass/Vol] 0.69 mg/dL 0.50 - 1.00 mg/dL [facility] Comment on above: Verified By: [id number] eGFR - PINF [facility] Glucose [Mass/Vol] 88 mg/dL 70 - 99 mg/dL [facility] Comment on above: Criteria for Diagnos is of Diabetes: Fasting Specimen (no caloric intake for at least 8 hours): <100 mg/dL Normal 100-125 mg/dL Increased risk for Diabetes >125 mg/dL Diagnostic for Diabetes Random Glucose (any time of day without regard to last meal): > or = 200 mg/dL plus Classic Symptoms of Diabetes Verified By: [id number] HCO3 (P) [Moles/Vol] 24.4 mmol/L 22.0 - 29.0 mmol/L [facility] Comment on above: Verified By: [id number] Interpretation and review of laboratory results Normal [facility] Potassium (BldA) [Moles/Vol] 3.8 mmol/L 3.3 - 5.1 mmol/L [facility] Comment on above: Verified By: [id number] Sodium [Moles/Vol] 140 mmol/L 133 - 145 mmol/L [facility] Comment on above: Verified By: [id number] Urea nitrogen [Mass/Vol] 10 mg/dL 4 - 19 mg/dL [facility] Comment on above: Verified By: [id number] C-REACTIVE PROTEINon 025 CRP 7.3 MG/DL High <=1.0 [facility] Comment on above: Order Comment: Relea se [...] to generate a CRP response. Verified By: [id number] C-reactive proteinon 025 CRP [Mass/Vol] 7.3 mg/L High NINF [facility] Comment on above: CRP determinations i n neonates should be interpreted with caution. CRP may be elevated in circumstances not associated with inflammation (e.g. difficult delivery, pneumothorax). In premature neonates CRP levels may not rise to abnormal levels even if sepsis is present; some speculate that immature liver function decreases the ability to generate a CRP response. Verified By: [id number] Interpretation and review of laboratory results Abnormal [facility] COMPLETE BLOOD COUNT WITH DI FFERENTIALon 03-20-2025 Basophil \P\ 0.04 10E3/???L Normal 0.02-0.06 [facility] Comment on above: Order Comment: Relea se to patient->Automatic Basophils/100 WBC (Bld) 0.2 % Low 0.3-0.9 [facility] Comment on above: Order Comment: Relea se to patient->Automatic Eosinophil \P\ 0.07 10E3/???L Normal 0.04-0.27 [facility] Comment on above: Order Comment: Relea se to patient->Automatic Eosinophils/100 WBC (Bld) 0.4 % Low 0.6-3.8 [facility] Comment on above: Order Comment: Relea se to patient->Automatic Erythrocyte distribution width (RBC) [Ratio] 12.2 % Normal 11.9-14.8 [facility] Comment on above: Order Comment: Relea se to patient->Automatic Hematocrit (Bld) [Volume fraction] 38.6 % Normal 35.5-44.6 [facility] Comment on above: Order Comment: Relea se to patient->Automatic Hemoglobin (Bld) [Mass/Vol] 13.2 g/dL Normal 11.4-14.8 [facility] Comment on above: Order Comment: Relea se to patient->Automatic Immature granulocytes/100 WBC (Bld) 0.4 % Normal 0.2-0.5 [facility] Comment on above: Order Comment: Relea se to patient->Automatic Result Comment: Jina ture Granulocyte Percent includes promyelocytes, myelocytes,and metamyelocytes. IG% > 1.0 indicates a left shift is present. With automated differentials, bands are included in the neutrophil count and not in the Immature Granulocyte Percent. Lymphocyte \P\ 1.90 10E3/???L Normal 1.51-2.99 [facility] Comment on above: Order Comment: Relea se to patient->Automatic Lymphocytes/100 WBC (Bld) 11.6 % Low 21.8-42.1 [facility] Comment on above: Order Comment: Relea se to patient->Automatic MCH (RBC) [Entitic mass] 29.1 pg Normal 25.7-31.2 [facility] Comment on above: Order Comment: Relea se to patient->Automatic MCHC 34.2 % High 31.3-34.0 [facility] Comment on above: Order Comment: Relea se to patient->Automatic MCV (RBC) [Entitic vol] 85.2 fL Normal 80.0-100.0 [facility] Comment on above: Order Comment: Relea se to patient->Automatic Monocyte \P\ 1.08 10E3/???L High 0.36-0.77 [facility] Comment on above: Order Comment: Relea se to patient->Automatic Monocytes/100 WBC (Bld) 6.6 % Normal 5.6-10.2 [facility] Comment on above: Order Comment: Relea se to patient->Automatic Neutrophil \P\ 13.16 10E3/???L High 2.43-6.42 [facility] Comment on above: Order Comment: Relea se to patient->Automatic Neutrophils/100 WBC (Bld) 80.8 % High 46.0-68.6 [facility] Comment on above: Order Comment: Relea se to patient->Automatic Nucleated RBC/100 WBC (Bld) [Ratio] 0.0 % Normal 0.0-0.0 [facility] Comment on above: Order Comment: Relea se to patient->Automatic Platelet mean volume (Bld) [Entitic vol] 9.5 fL Low 9.6-11.9 [facility] Comment on above: Order Comment: Relea se to patient->Automatic Platelets 327 10E3/???L Normal 150-400 [facility] Comment on above: Order Comment: Relea se to patient->Automatic RBC 4.53 10E6/???L Normal 4.03-4.91 [facility] Comment on above: Order Comment: Relea se to patient->Automatic WBC 16.3 10E3/???L High 4.9-10.0 [facility] Comment on above: Order Comment: Relea se to patient->Automatic CT Nasopharynx and Neck W co ntrast Naina 03-20-2025 IMPRESSION: 1. Left peritonsillar abscess measuring 3.5 x 2.2 x 2.0 cm. Another small abscess in the tonsillar fossa anteromedially. 2. There is narrowing and deviation of the oropharyngeal airway to the right. 3. Left cervical adenopathy. This report has been created using voice recognition software [facility] RADIOLOGY CLINICAL HISTORY: Left-sided neck swelling, voice changes, history of peritonsillar abscess TECHNIQUE: CT of the neck was performed with sagittal and coronal reformats with intravenous contrast. 75 mL of IsoVue 300 intravenous contrast was given. DOSE LINEAR PRODUCT: 152 mGy-cm. COMPARISON: None. FINDINGS: TONSILS/ADENOIDS: The left palatine tonsil is enlarged. A left peritonsillar abscess measuring 2.0 x 2.2 x 3.5 cm seen. Another small abscess is seen in the tonsillar fossa anteriorly and medially measuring 1.7 x 0.3 x 1.5 cm. The oropharyngeal airway is displaced and deviated towards the right side. LYMPH NODES: There are a enlarged lymph nodes in the right posterior triangle and upper jugular chain. No necrosis or abscess formation is seen. SALIVARY GLANDS: Normal. VASCULATURE: Normal. PARANASAL SINUSES: Normal. ORBITS: Imaged portions appear normal. THYROID GLAND: Normal. LUNG APICES: Normal. CERVICAL SPINE: Normal. BRAIN: Imaged portions appear normal. [facility] RADIOLOGY Lucio Medina MD - 03/20/2025 CLINICAL HISTORY: Left-sided neck swelling, voice changes, history of peritonsillar abscess TECHNIQUE: CT of the neck was performed with sagittal and coronal reformats with intravenous contrast. 75 mL of IsoVue 300 intravenous contrast was given. DOSE LINEAR PRODUCT: 152 mGy-cm. COMPARISON: None. FINDINGS: TONSILS/ADENOIDS: The left palatine tonsil is enlarged. A left peritonsillar abscess measuring 2.0 x 2.2 x 3.5 cm seen. Another small abscess is seen in the tonsillar fossa anteriorly and medially measuring 1.7 x 0.3 x 1.5 cm. The oropharyngeal airway is displaced and deviated towards the right side. LYMPH NODES: There are a enlarged lymph nodes in the right posterior triangle and upper jugular chain. No necrosis or abscess formation is seen. SALIVARY GLANDS: Normal. VASCULATURE: Normal. PARANASAL SINUSES: Normal. ORBITS: Imaged portions appear normal. THYROID GLAND: Normal. LUNG APICES: Normal. CERVICAL SPINE: Normal. BRAIN: Imaged portions appear normal. IMPRESSION: 1. Left peritonsillar abscess measuring 3.5 x 2.2 x 2.0 cm. Another small abscess in the tonsillar fossa anteromedially. 2. There is narrowing and deviation of the oropharyngeal airway to the right. 3. Left cervical adenopathy. This report has been created using voice recognition software [facility] Radiology Study observation (narrative) [facility] CT Nasopharynx and Neck W co ntrast IVOrdered By: Lucio Medina on 03-20-2025 [facility] Work Phone: CT SOFT TISSUE NECK WITH IV CONTRASTon 03-20-2025 CT SOFT TISSUE NECK WITH IV CONTRAST CLINICAL HISTORY: Left-sided neck swelling, voice changes, history of peritonsillar abscess TECHNIQUE: CT of the neck was performed with sagittal and coronal reformats with intravenous contrast. 75 mL of IsoVue 300 intravenous contrast was given. DOSE LINEAR PRODUCT: 152 mGy-cm. COMPARISON: None. FINDINGS: TONSILS/ADENOIDS: The left palatine tonsil is enlarged. A left peritonsillar abscess measuring 2.0 x 2.2 x 3.5 cm seen. Another small abscess is seen in the tonsillar fossa anteriorly and medially measuring 1.7 x 0.3 x 1.5 cm. The oropharyngeal airway is displaced and deviated towards the right side. LYMPH NODES: There are a enlarged lymph nodes in the right posterior triangle and upper jugular chain. No necrosis or abscess formation is seen. SALIVARY GLANDS: Normal. VASCULATURE: Normal. PARANASAL SINUSES: Normal. ORBITS: Imaged portions appear normal. THYROID GLAND: Normal. LUNG APICES: Normal. CERVICAL SPINE: Normal. BRAIN: Imaged portions appear normal. IMPRESSION: 1. Left peritonsillar abscess measuring 3.5 x 2.2 x 2.0 cm. Another small abscess in the tonsillar fossa anteromedially. 2. There is narrowing and deviation of the oropharyngeal airway to the right. 3. Left cervical adenopathy. This report has been created using voice recognition software Signed by: Dr. Lucio Medina at 03/20/2025 15:59 Normal [facility] Complete Blood Count with Di fferentialOrdered By: Nicolasa Banda on 03-20-2025 Basophils (Bld) [#/Vol] 0.04 10*3/uL [facility] Basophils/100 WBC (Bld) 0.2 % Low 0.3 - 0.9 % [facility] Eosinophils (Bld) [#/Vol] 0.07 10*3/uL [facility] Eosinophils/100 WBC (Bld) 0.4 % Low 0.6 - 3.8 % [facility] Erythrocyte distribution width (RBC) [Ratio] 12.2 % 11.9 - 14.8 % [facility] Hematocrit (Bld) [Volume fraction] 38.6 % 35.5 - 44.6 % [facility] Hemoglobin (Bld) [Mass/Vol] 13.2 g/dL 11.4 - 14.8 g/dL [facility] Immature granulocytes/100 WBC (Bld) 0.4 % 0.2 - 0.5 % [facility] Comment on above: Immature Granulocyte Percent includes promyelocytes, myelocytes,and metamyelocytes. IG% > 1.0 indicates a left shift is present. With automated differentials, bands are included in the neutrophil count and not in the Immature Granulocyte Percent. Interpretation and review of laboratory results Abnormal [facility] Lymphocytes (Bld) [#/Vol] 1.90 10*3/uL [facility] Lymphocytes/100 WBC (Bld) 11.6 % Low 21.8 - 42.1 % [facility] MCH (RBC) [Entitic mass] 29.1 pg 25.7 - 31.2 pg [facility] MCHC (RBC) [Mass/Vol] 34.2 % High 31.3 - 34.0 % [facility] MCV (RBC) [Entitic vol] 85.2 fL 80.0 - 100.0 fL [facility] Monocytes (Bld) [#/Vol] 1.08 10*3/uL High [facility] Monocytes/100 WBC (Bld) 6.6 % 5.6 - 10.2 % [facility] Neutrophils (Bld) [#/Vol] 13.16 10*3/uL High [facility] Neutrophils/100 WBC (Bld) 80.8 % High 46.0 - 68.6 % [facility] Nucleated RBC/100 WBC (Bld) [Ratio] 0.0 % 0.0 - 0.0 % [facility] Platelet mean volume (Bld) [Entitic vol] 9.5 fL Low 9.6 - 11.9 fL [facility] Platelets (Bld) [#/Vol] 327 10*3/uL [facility] RBC (Bld) [#/Vol] 4.53 10*6/uL [facility] WBC (Bld) [#/Vol] 16.3 10*3/uL High [facility] ED Provider Progress Noteon 03-20-2025 Pantograph Engraver Authentication Interface Message Text Jocelyn Ericka Barajas : 2005 Chief Complaint Patient presents with Sore Throat (Pharyngitis) Allergies[1] DOS: 03/20/2025 19-year-old female presenting to the emergency department for evaluation of throat swelling. Patient states that last week she started developing a sore throat and tonsillar swelling. She states she has a longstanding history of similar symptoms sometimes in the setting of strep infections sometimes 1 strep negative. She is followed by ENT internal follow-up last Thursday she was positive for strep. Consequently she was started on a course of cefdinir given her penicillin allergy. She reports that she experienced an transient improvement with this but by Thursday 3:30 AM she awoke with worsening pain and throat swelling. Upon again contacting her ENT she was recommended to go to the emergency department. At the time she was given IV antibiotics and on discharge her regiment was changed to clindamycin. No imaging was performed at that time. She presents today as she is now experiencing more left-sided neck swelling in addition to new right-sided neck swelling as well as changes in her voice and trismus. She has significant difficulty tolerating p.o. intake but has continued to tolerate her secretions. She denies fevers. She is not taking anything at home for pain. She reports a past history of mononucleosis and several prior rounds of strep pharyngitis. Mom states that in April of last year she had similar worsening of her swelling and ended up being admitted to the hospital for IV antibiotics in the setting of a peritonsillar abscess. The history is provided by the patient and a parent. History of Present Illness Review of Systems Review of Systems Constitutional: Positive for appetite change (decreased). Negative for chills and fever. HENT: Positive for sore throat, tinnitus, trouble swallowing and voice change. Negative for congestion and rhinorrhea. Respiratory: Negative for cough and wheezing. Gastrointestinal: Negative for abdominal pain, diarrhea, nausea and vomiting. Genitourinary: Negative for decreased urine volume, dysuria and hematuria. Musculoskeletal: Negative for back pain. Skin: Negative for rash and wound. Neurological: Negative for syncope and headaches. Patient History Past Medical History: Diagnosis Date ADHD (attention deficit hyperactivity disorder) Asthma Past Surgical History: Procedure Laterality Date DENTAL SURGERY Pediatric History Patient Parents Flor Jiménez (Mother) Fernando Barajas (Father) Other Topics Concern Interpersonal relationships Not Asked Poor school performance Not Asked Reading difficulties Not Asked Speech difficulties Not Asked Writing difficulties Not Asked Toilet training problems Not Asked Inadequate sleep Not Asked Excessive TV viewing Not Asked Excessive video game use Not Asked Inadequate exercise Not Asked Sports related Not Asked Poor diet Not Asked Second-hand smoke exposure Not Asked Alcohol/drug concerns Not Asked Violence concerns Not Asked Poor oral hygiene Not Asked Bike safety Not Asked Vehicle safety Not Asked Social History Narrative Not on file ED Triage Vitals Date and Time Temp Temp src Pulse Resp BP SpO2 User 03/20/25 1355 36.5 C (97.7 F) Temporal 97 -- 127/64 100 % JRD Physical Exam Vitals and nursing note reviewed. Constitutional: Appearance: She is well-developed. Comments: Patient appears slightly uncomfortable. She speaks with somewhat muffled voice. She is tolerating her own secretions. HENT: Head: Normocephalic and atraumatic. Comments: Patient with significant trismus and inability to open mouth to visualize tonsils. No appreciable lesions. No tongue or lip swelling. Significant swelling under left mandible with overlying tenderness. Similar but less severe swelling in right submandibular space. Mouth/Throat: Mouth: Mucous membranes are moist. Eyes: Conjunctiva/sclera: Conjunctivae normal. Pupils: Pupils are equal, round, and reactive to light. Neck: Musculoskeletal: Normal range of motion. Cardiovascular: Rate and Rhythm: Normal rate and regular rhythm. Abdominal: General: Abdomen is flat. Palpations: Abdomen is soft. Tenderness: There is no abdominal tenderness. Musculoskeletal: Cervical back: Normal range of motion. No rigidity. Skin: General: Skin is warm and dry. Findings: No rash. Neurological: Mental Status: She is alert. Psychiatric: Mood and Affect: Mood normal. Behavior: Behavior normal. Physical Exam Procedures Encounter Documentation/Handof f: Labs/Radiology: Recent Results (from the past 24 hours) POCT urine HCG Collection Time: 03/20/25 2:39 PM Result Value Ref Range hCG Urine POCT Negative Negative Control Line *Present Clear Background *Present Lot # [id number] Basic metabolic panel Collection Time: 03/20/25 2:41 PM Result Value Ref Range Sodi (more content not included)... Normal [facility] MARIAH-VALLEJO VIRUS (EBV) ANT IBODY PROFILE, SERUMon 03-20-2025 MARIAH-VALLEJO VIRUS (EBV) ANTIBODY PROFILE, SERUM EBV Antibody, IgM Negative EBV Nuclear Antigen IgG Antibody Positive EBV Antibody, IgG (VCA) Positive Abnormal Negative [facility] Comment on above: Order Comment: Prese nce of detectable EBNA IgG and VCA IgG; absence of detectable EBV IgM. These results suggest a past infection with Mariah-Vallejo virus.Release to patient->Automatic MARIAH-VALLEJO VIRUS ANTIBODY PROFILEOrdered By: Cleo Lara on 03-20-2025 EBV capsid IgG Ql (S) Positive Abnormal Negative [facility] EBV capsid IgM Ql (S) Negative Negative [facility] EBV nuclear Ab Ql (S) Positive Abnormal Negative [facility] on [facility] Interpretation and review of laboratory results Abnormal [facility] Presence of detectable EBNA IgG and VCA IgG; absence of detectable EBV IgM. These results suggest a past infection with Mariah-Vallejo virus. [facility] H&Ge 03-20-2025 Pantograph Engraver Authentication Interface Message Text [facility] H[facility]ORY & PHYSICAL History of Present Illness Jocelyn is a 19 y.o. female with history of anxiety, bipolar disorder, asthma, PCOS, multiple strep throat diagnoses, and previous peritonsillar abscess here for sore throat, inability to tolerate PO, and CT finding of peritonsillar abscess. One week prior to admission, Jocelyn tested positive for strep at her ENT appointment and was started on a course of cefdinir (due to amoxicillin allergy) and steroids (Jocelyn thinks it is methylprednisolone). Chart review shows that a throat culture grew group B strep that is sensitive to ceftriaxone, resistant to clindamycin. Five days after being diagnosed (3 days ago), her pain acutely worsened and her throat swelling worsened. She went to the ED where she was given IV antibiotics and her antibiotics were changed to clindamycin and she was told to continue the steroid. Chart review shows she also received decadron at that visit. She has been taking the clindamycin at home, but has worsening swelling and sore throat since Thursday and presented to [facility] ED. Of note, she complains of frequently having food stuck in her tonsils and having to gargle salt water. She has also had dysuria for the past several days. In the ED, she had significant trismus, muffled voice, and was not able to open her mouth fully. She was tolerating her own secretions, but not able to tolerate PO intake. She was noted to have significant swelling to her left mandible with overlying tenderness. Labwork includes CBC with WBC 16 (80% neutrophils), CRP 7.3, monospot negative, BMP overall normal. EBV titers positive IgG, negative IgM. CT neck with left peritonsillar abscess measuring 3.5 x 2.2 x 2.0 cm. An additional small abscess in the tonsillar fossa anteromedially. She was given linezolid and flagyl due to failure of cefdinir and clindamycin outpatient. ENT recommended decadron and consult once she is admitted. Jocelyn was admitted to the hospitalist team. On the floor, she reports she feels the abscess has popped since she was initially seen and there is not as much pressure and pain. Patient Information Past Medical History: Diagnosis Date ADHD (attention deficit hyperactivity disorder) Asthma Past Surgical History: Procedure Laterality Date DENTAL SURGERY Medications Prior to Admission Medication Sig Dispense Refill Last Dose/Taking Beclomethasone Diprop (QVAR REDIHALER) 40 MCG/ACT AERB Redihaler Inhale 2 Puffs into the lungs 2 times daily 1 Each 11 albuterol 108 (90 Base) MCG/ACT inhaler Inhale 2 Puffs into the lungs every 4 hours as needed for Wheezing or Shortness of Breath 18 g 2 albuterol (VENTOLIN) (2.5 MG/3ML) 0.083% nebulizer solution Use 3 mL (2.5 mg) by nebulization every 4 hours as needed for Wheezing or Shortness of Breath (Cough) 100 Each 1 Spacer/Aero-Holding Chambers (OPTICHAMBER ALICIA) MISC DEVICE Use with inhaled medication as instructed. 1 Each 0 Allergies[1] HEEADSSS Assessment Home: Feels safe at home, has an adult they can turn to for help. Eating: Eats regular meals including fruits and vegetables Drugs: Does not use tobacco, alcohol, or drugs. and has vaped 1 time Safety: Feels safe at school and home, and with their family and friends. Sex: has been sexually active with one partner 2 years ago. Was tested by denture finisher for STIs and was negative per patient. Has not been sexually active since then Suicidality/Mental Health: Has ways to cope with stress, has history of anxiety, but does not want to take medication Confidentiality discussed with teen: yes Confidentiality discussed with Mother and Patientyes Discussed that the following can be discussed with caregiver(s): everything; and the following cannot: none. Objective 24-hour Vital Signs: BP Min: 112/65 Max: 127/64 Temp Av.6 C (97.9 F) Min: 36.4 C (97.5 F) Max: 36.9 C (98.4 F) Pulse Av.4 Min: 72 Max: 97 Resp Av Min: 16 Max: 20 SpO2 Av % Min: 100 % Max: 100 % Height Av cm Min: 165 cm Max: 165 cm Weight Av.2 kg Min: 57.8 kg Max: 58.5 kg Oxygen Therapy: None (Room air) General: The patient is well-kept and well-nourished. In no acute distress. Head: Normocephalic and atraumatic. Ears: External auditory canals are patent. Tympanic membranes are pearly alvarado bilaterally without bulging. Eyes: normal sclera and conjunctiva without discharge; Nose: no nasal discharge; Oropharynx: Moist mucous membranes. Posterior oropharynx with erythema and swelling along left side, with uvula deviation to the right Neck: Cervical lymphadenopathy present. Neck is supple and non-tender Cardiac: Normal rate for age and regular rhythm with normal S1 and S2. No M/R/G. Pulses symmetrical. Capillary refill <2 seconds. Respiratory: Respirations are easy and non-labored. Good aeration throughout lung paul. No rales, rhonchi, or wheezes. Abdomen: Abdomen soft, mild tenderne (more content not included)... Normal [facility] MONO SCREENon 03-20-2025 Monospot (Heterophile Antibodies) Negative Normal Negative [facility] Comment on above: Order Comment: Relea se to patient->Automatic Result Comment: If i ndicated,an EBV IgM may be of diagnostic value. Mononucleosis screenOrdered By: Maryam Lockwood on 03-20-2025 Heterophile Ab IA Ql (Bld) Negative Negative [facility] Comment on above: If indicated,an EBV IgM may be of diagnostic value. Interpretation and review of laboratory results Normal [facility] No Panel Informationon 03-20 [facility] POCT urine HCGOrdered By: Nayan Reid on 03-20-2025 Clear Background *Present [facility] Control Line *Present [facility] HCG ( test) Ql (U) Negative Negative [facility] Interpretation and review of laboratory results Normal [facility] Lot # [id number] [facility] URINALYSIS, COMPLETEon 03-20 Bilirubin Ql (U) Negative Normal Negative [facility] Comment on above: Order Comment: Relea se to patient->Automatic Character Clear Normal [facility] Comment on above: Order Comment: Relea se to patient->Automatic Color (U) Light Yellow Normal [facility] Comment on above: Order Comment: Relea se to patient->Automatic Epithelial cells.squamous LM.HPF (Urine sed) [#/Area] 4 /[HPF] High <=2 [facility] Comment on above: Order Comment: Relea se to patient->Automatic Glucose Ql (U) Normal Normal Normal [facility] Comment on above: Order Comment: Relea se to patient->Automatic Ketones Ql (U) Negative Normal Negative [facility] Comment on above: Order Comment: Relea se to patient->Automatic Leukocyte esterase Test strip Ql (U) Negative Normal Negative [facility] Comment on above: Order Comment: Relea se to patient->Automatic Nitrite Ql (U) Negative Normal Negative [facility] Comment on above: Order Comment: Relea se to patient->Automatic pH (U) 7.0 [pH] Normal 5.0-8.0 [facility] Comment on above: Order Comment: Relea se to patient->Automatic Protein Ql (U) Negative Normal Neg.-Trace [facility] Comment on above: Order Comment: Relea se to patient->Automatic RBC 0 /HPF Normal <=2 [facility] Comment on above: Order Comment: Relea se to patient->Automatic Renal Epithelial Cells 0 /HPF Normal <=2 [facility] Comment on above: Order Comment: Relea se to patient->Automatic Specific gravity (U) [Rel density] 1.046 High Reference Range: 1.005-1.030 [facility] Comment on above: Order Comment: Relea se to patient->Automatic Transitional Epithelial Cells 0 /HPF Normal <=2 [facility] Comment on above: Order Comment: Relea se to patient->Automatic Urobilinogen Normal Normal Normal [facility] Comment on above: Order Comment: Relea se to patient->Automatic Volume 12 mL Normal [facility] Comment on above: Order Comment: Relea se to patient->Automatic WBC 0 /HPF Normal <=2 [facility] Comment on above: Order Comment: Relea se to patient->Automatic URINE CULTUREon 03-20-2025 Bacteria identified Cx Nom (U) Urine Culture Three or more organisms present, none are predominant, which usually suggests contamination during collection. Recollect sample if clinically indicated. Normal [facility] Comment on above: Order Comment: Relea se to patient->Automatic Urinalysis, Complete (Chemis try & Micro)Ordered By: Satya Mauricio on 03-20-2025 Bilirubin Ql (U) Negative Negative [facility] Character Clear [facility] Color (U) Light Yellow [facility] Epithelial cells.renal Computer assisted (U) [#/Area] 0 NINF [facility] Epithelial cells.squamous Auto (Urine sed) [#/Area] [address] [facility] Glucose Auto test strip Ql (U) Normal Normal [facility] Hemoglobin Auto test strip Ql (U) Negative Negative [facility] Interpretation and review of laboratory results Abnormal [facility] Ketones (U) [Mass/Vol] Negative Negative [facility] Leukocyte esterase Auto test strip Ql (U) Negative Negative Dee/uL [facility] Nitrite Ql (U) Negative Negative [facility] pH (U) 7.0 [pH] 5.0 - 8.0 [facility] Protein (U) [Mass/Vol] Negative Neg.-Trace [facility] RBC Auto (Urine sed) [#/Area] [address] [facility] Specific gravity Refractometry automated (U) [Rel density] 1.046 High Reference Range: 1.005-1.030 [facility] Specimen volume (U) 12 mL [facility] Transitional cells Computer assisted (U) [#/Area] [address] [facility] Urobilinogen (U) [Mass/Vol] Normal Normal mg/dL [facility] WBC Auto (Urine sed) [#/Area] 0 [facility] Absolute lymphocyte countOrd ered By: Jose D Chua on 03-17-2025 Lymphocytes Auto (Unsp spec) [#/Vol] 2.95 10*3/uL 0.83-4.51 [facility] Absolute neutrophil countOrd ered By: Jose D Chua on 03-17-2025 Neutrophils (Bld) [#/Vol] 5.8 10*3/uL 2.0-7.7 [facility] Anion gap in Serum or Plasma Ordered By: Jose D Chua on 03-17-2025 Anion gap [Moles/Vol] 11 mmol/L 5-15 [facility] [facility] Automated lymphocyte count a s percentage of total leukocytesOrdered By: Jose D Chua on 03-17-2025 Lymphocytes/100 WBC Auto (Unsp spec) 30.3 % 19-41 [facility] BUN/creatinine ratioOrdered By: Jose D Chua on 03-17-2025 Urea nitrogen/Creatinine [Mass ratio] 17.2 mg/mg 10- [facility] Basic Metabolic Profile (BMP )on 03-17-2025 BUN/CRE 17.2 RATIO Normal - [facility] Comment on above: Performed By: #### M 100.1000 #### [facility] [address] [place], [address] Calcium [Mass/Vol] 9.0 mg/dL Normal 7.6-11.0 [facility] Comment on above: Performed By: #### M 100.1000 #### [facility] [address] [place], [address] Chloride [Moles/Vol] 103 mmol/L Normal 98-108 [facility] Comment on above: Performed By: #### M 100.1000 #### [facility] [address] [place], [address] CO2 [Moles/Vol] 26.3 mmol/L Normal 21.0-32.0 [facility] Comment on above: Performed By: #### M 100.1000 #### [facility] [address] [place], [address] Creatinine [Mass/Vol] 0.82 mg/dL Normal 0.70-1.20 [facility] [facility] Comment on above: Performed By: #### M 100.1000 #### [facility] [address] [place], [address] ECRCL 95.29 ml/min Normal 50-250 [facility] Comment on above: Performed By: #### M 100.1000 #### [facility] [address] [place], [address] GAP 11 Normal 5-15 [facility] Comment on above: Performed By: #### M 100.1000 #### [facility] [address] [place], [address] GFR/1.73 sq M.predicted among non-blacks MDRD (S/P/Bld) [Vol rate/Area] 105 mL/min/{1.73_m2} Normal >60 [facility] Comment on above: Result Comment: mL/m in/1.73m2 CKD-EPI Creatinine Equation (2020) Performed By: #### M 100.1000 #### [facility] [address] [place], [address] Glucose [Mass/Vol] 92 mg/dL Normal 70-99 [facility] Comment on above: Performed By: #### M 100.1000 #### [facility] [address] [place], [address] Potassium [Moles/Vol] 3.6 mmol/L Normal 3.3-5.1 [facility] [facility] Comment on above: Performed By: #### M 100.1000 #### [facility] [address] [place], [address] Sodium [Moles/Vol] 140 mmol/L Normal 133-145 [facility] Comment on above: Performed By: #### M 100.1000 #### [facility] [address] [place], [address] Urea nitrogen [Mass/Vol] 14 mg/dL Normal 4-19 [facility] Comment on above: Performed By: #### M 100.1000 #### [facility] [address] [place], [address] Basophil percentageOrdered B y: Jose D Le on 03-17-2025 Basophils/100 WBC (Bld) 0.5 % 0-1 [facility] CBC W/Diff, Automatedon 02-22 Absolute Lymph 2.95 X10 3/uL Normal 0.83-4.51 [facility] Comment on above: Performed By: #### L 100.0100, L500.2500, L700.6800 #### [facility] [address] [place], [address] Absolute Neut 5.8 X10 3/uL Normal 2.0-7.7 [facility] Comment on above: Performed By: #### L 100.0100, L500.2500, L700.6800 #### [facility] [address] [place], [address] Basophils/100 WBC (Bld) 0.5 % Normal 0-1 [facility] Comment on above: Performed By: #### L 100.0100, L500.2500, L700.6800 #### [facility] [address] [place], [address] Eosinophils/100 WBC (Bld) 1.5 % Normal 0-5 [facility] Comment on above: Performed By: #### L 100.0100, L500.2500, L700.6800 #### [facility] [address] [place], [address] Erythrocyte distribution width (RBC) [Ratio] 12.5 % Normal 11.6-14.6 [facility] Comment on above: Performed By: #### L 100.0100, L500.2500, L700.6800 #### [facility] [address] [place], [address] Hematocrit (Bld) [Volume fraction] 36.4 % Low 37-47 [facility] Comment on above: Performed By: #### L 100.0100, L500.2500, L700.6800 #### [facility] [address] [place], [address] Hemoglobin (Bld) [Mass/Vol] 11.9 g/dL Low 12.0-15.0 [facility] Comment on above: Performed By: #### L 100.0100, L500.2500, L700.6800 #### [facility] [address] [place], [address] IG% 0.300 Normal 0.0-0.9 [facility] Comment on above: Result Comment: IG% - Immature Granulocytes (promyelocytes, myelocytes and metamyelocytes) > 1% indicates that a LEFT SHIFT is Present. Performed By: #### L 100.0100, L500.2500, L700.6800 #### [facility] [address] [place], [address] Lymphocytes/100 WBC (Bld) 30.3 % Normal 19-41 [facility] Comment on above: Performed By: #### L 100.0100, L500.2500, L700.6800 #### [facility] [address] [place], [address] MCH (RBC) [Entitic mass] 28.5 pg Normal 27.0-32.0 [facility] Comment on above: Performed By: #### L 100.0100, L500.2500, L700.6800 #### [facility] [address] [place], [address] MCHC (RBC) [Mass/Vol] 32.7 g/dL Normal 32-36 [facility] [place] [facility] Comment on above: Performed By: #### L 100.0100, L500.2500, L700.6800 #### [facility] [address] [place], [address] MCV (RBC) [Entitic vol] 87.3 fL Normal 81-99 [facility] Comment on above: Performed By: #### L 100.0100, L500.2500, L700.6800 #### [facility] [address] [place], [address] Monocytes/100 WBC (Bld) 7.8 % Normal 0-10 [facility] Comment on above: Performed By: #### L 100.0100, L500.2500, L700.6800 #### [facility] [address] [place], [address] Neutrophils/100 WBC (Bld) 59.6 % Normal 47-70 [facility] Comment on above: Performed By: #### L 100.0100, L500.2500, L700.6800 #### [facility] [address] [place], [address] Nucleated RBC (Bld) [#/Vol] 0 10*3/uL Normal 0-5 [facility] Comment on above: Performed By: #### L 100.0100, L500.2500, L700.6800 #### [facility] [address] [place], [address] Platelet mean volume (Bld) [Entitic vol] 9.5 fL Normal 6.2-12.0 [facility] Comment on above: Performed By: #### L 100.0100, L500.2500, L700.6800 #### [facility] [address] [place], [address] Platelets (Bld) [#/Vol] 291 10*3/uL Normal 150-450 [facility] Comment on above: Performed By: #### L 100.0100, L500.2500, L700.6800 #### [facility] [address] [place], [address] RBC (Bld) [#/Vol] 4.17 10*6/uL Low 4.2-5.4 [facility] Comment on above: Performed By: #### L 100.0100, L500.2500, L700.6800 #### [facility] [address] [place], [address] RDW SD 40.0 fl Normal 35.1-43.9 [facility] Comment on above: Performed By: #### L 100.0100, L500.2500, L700.6800 #### [facility] [address] [place], [place], [address] WBC (Bld) [#/Vol] 9.7 10*3/uL Normal 4.4-11.0 [facility] Comment on above: Performed By: #### L 100.0100, L500.2500, L700.6800 #### [facility] [address] [place], [place], [address] Carbon dioxide, total [Moles /volume] in Central venous bloodOrdered By: Jose D Chua on 03-17-2025 CO2 [Moles/Vol] 26.3 mmol/L 21.0-32.0 [facility] Chloride assayOrdered By: Jose Chua on 03-17-2025 Chloride [Moles/Vol] 103 mmol/L 98-108 [facility] Emergency Department Summary on 03-17-2025 Emergency Department Summary [facility] Medical Records Department [address] [place] [address] Emergency Department Summary 03/17/25 MR#: [id number] Acct: [id number] Name: JOCELYN BARAJAS Rep #: [id number] : 2005 19 From: Jose D Perez PCP: Dr. Mitzy Fung MD Status:DEP ER Location: ED HPI History of Present Illness Chief Complaint: Sore Throat Informant: patient and parent Narrative Narrative: Here with mother evaluation diagnosed with strep 4 days ago in ENT office. Symptoms started over the weekend. States it was swollen. She was started on cefdinir and Medrol Dosepak mother states swelling was improving then worsen again. Pain with swallowing. No fever chills or sweats. Penicillin allergy. No vomiting or diarrhea. Prior similar symptoms: Yes PFSH PFSH Medical History Wears glasses Bipolar disorder Anxiety Non-smoker PCOS (polycystic ovarian syndrome) Endometriosis determined by laparoscopy ADHD Asthma Home Medications ???Medication ???Instructions ???Recorded ???Last Taken ???Type ondansetron 4 mg disintegrating 4 mg PO TID PRN nausea and 5 Unknown Rx tablet vomiting #21 tabs beclomethasone dipropionate 40 inhalation 03/17/25 Unknown Histor y mcg/actuation HFA breath activated aerosol (Qvar RediHaler) cefdinir 300 mg capsule 300 mg PO BID 03/17/25 Unknown His tory clindamycin HCl 150 mg capsule 450 mg (3 x 150 mg) PO TID #63 Unknown Rx CAPSULES lorazepam 1 mg tablet 1 mg PO DAILY PRN anxiety 03/17/25 Unknown History methylprednisolone 4 mg tablets in PO 03/17/25 Unknown History a dose pack Allergy/AdvReac Type Severity Reaction Status Date / Time Penicillins Allergy Swelling Verified 03/17/25 04:18 tree and shrub pollen Allergy Other Verified 03/17/25 04:18 Surgical History S/P laparoscopy Social History Smoking Status: Current every day smoker tobacco type: cigarettes and e-cigarettes alcohol intake: never substance use type: does not use ROS ROS ED Constitutional Constitutional ED: Denies fever(s) ENT ENT ED: Reports sore throat Cardiovascular Cardiovascular: Denies chest pain Respiratory/Chest Respiratory/Chest: Denies cough Gastrointestinal Gastrointestinal: Denies diarrhea or vomiting Musculoskeletal Musculoskeletal: Denies none Integumentary Denies rash or wounds Neurologic Neurologic: Denies weakness EXAM Physical Exam Const Vital Signs: 03/17/25 04:09 03/17/25 04:13 03/17/25 04:13 Temperature 98.6 F 98.6 F 98.6 F Temperature Source Oral Oral Oral Pulse Rate 87 90 91 Respiratory Rate 20 H 20 H 20 H Blood Pressure 118/92 H 118/92 H 118/92 H Blood Pressure Mean 100 100 100 Pulse Ox 100 100 100 Oxygen Delivery Method Room Air Room Air Room Air 03/17/25 05:13 03/17/25 06:08 Temperature 98.7 F 98.7 F Temperature Source Oral Pulse Rate 91 87 Respiratory Rate 20 H 18 Blood Pressure 100/83 H 106/61 Blood Pressure Mean 88 76 Pulse Ox 98 98 Oxygen Delivery Method Room Air Positive well nourished and well developed Constitutional Narrative: Uncomfortable, nontoxic. General Appearance ED: well developed HEENT Reports moist mucous membranes HEENT Narrative: There is posterior pharyngeal erythema. 1+ tonsils bilaterally with erythema. Uvula midline. There were tonsillar crypts noted on the left side. No stridor. No trismus. normocephalic and atraumatic Eyes General Eye ED: Yes normal appearance of both eyes Neck full ROM Neck Narrative: Tender anterior cervical lymphadenopathy left greater than right. Chest Wall Chest: Negative for tenderness Resp normal respiratory effort and normal air movement Effort and Inspection: symmetric chest movement; Negative for respiratory distress Cardio regular rate, regular rhythm and no murmurs Peripheral Pulses: pulses 2+ throughout GI normal to inspection, nondistended, normoactive bowel sounds and non-tender Palpation: Negative for guarding or rebound tenderness present Extremity normal to inspection General Extremety ED: Negative for edema or tenderness General Extremity: Negative for edema Neuro oriented x3 and no sensory deficits noted Sensorium / Orientation: awake and alert Skin no rashes or lesions noted and no wounds MDM MDM MDM Narrative Medical decision making narrative: Interventions / MDM: Differential diagnosis: Strep infection, pharyngitis Diagnosis considered but do not suspect: No clinical peritonsillar abscess. No clinical retropharyngeal abscess My EKG interpretation: N/A Imaging independently reviewed and interpreted by myself: N/A (more content not included)... Normal [facility] Eosinophil percentageOrdered By: Jose D Chua on 03-17-2025 Eosinophils/100 WBC (Bld) 1.5 % 0-5 [facility] Erythrocyte distribution wid th ratioOrdered By: Jose D Chua on 03-17-2025 Erythrocyte distribution width (RBC) [Ratio] 12.5 % 11.6-14.6 [facility] Erythrocyte distribution wid th standard deviationOrdered By: Jose D Chua on 03-17-2025 Erythrocyte distribution width (RBC) [Ratio] 40.0 fl 35.1-43.9 [facility] Glomerular filtration rate ( GFR) estimation/1.73 sq m using serum, plasma, or whole bOrdered By: Jose D Chua on 03-17-2025 GFR/1.73 sq M.predicted among non-blacks MDRD (S/P/Bld) [Vol rate/Area] 105 mL/min/{1.73_m2} >60 [facility] Comment on above: mL/min/1.73m2 CKD-EP I Creatinine Equation (2020) Hematocrit Auto (Bld) [Volum e fraction]Ordered By: Jose D Chua on 03-17-2025 Hematocrit (Bld) [Volume fraction] 36.4 % Low 37-47 [facility] Hemoglobin measurementOrdere d By: Jose D Chua on 03-17-2025 Hemoglobin (Bld) [Mass/Vol] 11.9 g/dL Low 12.0-15.0 [facility] Immature granulocytes/100 WB C Auto (Bld)Ordered By: Jose D Chua on 03-17-2025 Immature granulocytes/100 WBC (Bld) 0.300 % 0.0-0.9 [facility] Comment on above: IG% - Immature Granu locytes (promyelocytes, myelocytes and metamyelocytes) > 1% indicates that a LEFT SHIFT is Present. MCV (mean corpuscular volume ) determinationOrdered By: Jose D Chua on 03-17-2025 MCV (RBC) [Entitic vol] 87.3 fL 81-99 [facility] Mean corpuscular hemoglobin (MCH) determinationOrdered By: Jose D Chua on 03-17-2025 MCH (RBC) [Entitic mass] 28.5 pg 27.0-32.0 [facility] Mean corpuscular hemoglobin concentration (MCHC) determinationOrdered By: Jose D Chua on 03-17-2025 MCHC (RBC) [Mass/Vol] 32.7 g/dL 32-36 [facility] Mean platelet volume determi nationOrdered By: Jose D Chua on 03-17-2025 Platelet mean volume (Bld) [Entitic vol] 9.5 fL 6.2-12.0 [facility] Monocyte percentageOrdered B y: Jose D Chua on 03-17-2025 Monocytes/100 WBC (Bld) 7.8 % 0-10 [facility] Neutrophil percentageOrdered By: Jose D Chua on 03-17-2025 Neutrophils/100 WBC (Bld) 59.6 % 47-70 [facility] Nucleated red blood cell per centageOrdered By: Jose D Chua on 03-17-2025 Nucleated RBC/100 WBC (Bld) [Ratio] 0 % 0-5 [facility] Platelet countOrdered By: Jose Chua on 03-17-2025 Platelets (Bld) [#/Vol] 291 10*3/uL 150-450 [facility] Potassium measurement (mass/ volume)Ordered By: Jose D Chua on 03-17-2025 Potassium (Unsp spec) [Mass/Vol] 3.6 mmol/L 3.3-5.1 [facility] ,Serum,hCG Quali.on 03-17-2025 HCG, SERUM QUAL Negative Normal [facility] Comment on above: Performed By: #### M 100.1000 #### [facility] [place], [address] RBC Auto (Bld) [#/Vol]Ordere d By: Jose D Chua on 03-17-2025 RBC (Bld) [#/Vol] 4.17 10*6/uL Low 4.2-5.4 [facility] Serum beta-hCG test, qualita tiveOrdered By: Jose D Chua on 03-17-2025 Beta HCG ( test) Ql Negative [facility] Serum creatinine measurement (mass/volume)Ordered By: Jose D Chua on 03-17-2025 Creatinine [Mass/Vol] 0.82 mg/dL 0.70-1.20 [facility] Serum glucose measurement (m ass/volume)Ordered By: Jose D Chua on 03-17-2025 Glucose [Mass/Vol] 92 mg/dL 70-99 [facility] Serum or plasma calcium vel urement (mass/volume)Ordered By: Jose D Chua on 03-17-2025 Calcium [Mass/Vol] 9.0 mg/dL 7.6-11.0 [facility] Serum or plasma urea nitroge n measurement (mass/volume)Ordered By: Jose D Chua on 03-17-2025 Urea nitrogen [Mass/Vol] 14 mg/dL 4-19 [facility] Sodium levelOrdered By: Jose D Chua on 03-17-2025 Sodium [Moles/Vol] 140 mmol/L 133-145 [facility] White blood cell (WBC) count Ordered By: Jose D Chua on 03-17-2025 WBC (Bld) [#/Vol] 9.7 10*3/uL 4.4-11.0 [facility] Culture, Throaton 03-16-2025 CUT Bacteria Throat Cult Bacteria Throat Cult Streptococcus agalactiae (B) Amount Growth 3+ Streptococcus agalactiae (B): REACTION Ampicillin Islt [place] <=0.25 S cefTRIAXone Islt [place] <=0.12 S Clindamycin Islt [place] >=1 R Clindamycin.induced Susc Islt NEG Linezolid Islt [place] <=2 S Vancomycin Islt [place] 0.5 S Normal [facility] Comment on above: Performed By: #### M 100.1000 #### [facility] [address] [facility] [place], [place], [address] Throat specimen bacteria radha ntification by cultureOrdered By: Javier Penny on 03-13-2025 Bacteria identified Cx Nom (Throat) Streptococcus agalactiae (B) Abnormal [facility] Pelvic w/ Transvaginalon Pelvic w/ Transvaginal [facility] [address] [place], [place] [id number] Pelvic w/ Transvaginal MR#: [id number] Acct: [id number] Name: JOCELYN BARAJAS Rep #: [id number] : 2005 F 19 From: Higinio Fields DO PCP: Dr. Mitzy Fung MD Status: REG CLI Study: Pelvic w/ Transvaginal Date of Exam: 02/23/25 Exam# [id number] Ordering Dr: Teodoro Garcia DO PROCEDURE: PELVIC [...] is frequently physiologic, but nonspecific. Reading [facility] CC: Dr. Mitzy Fung MD; Teodoro Garcia DO Clay Carman: Signed Normal [facility] Absolute lymphocyte countOrd ered By: Teodoro Garcia on 02-21-2025 Lymphocytes Auto (Unsp spec) [#/Vol] 3.01 10*3/uL 0.83-4.51 [facility] Absolute neutrophil countOrd ered By: Teodoro Garcia on 02-21-2025 Neutrophils (Bld) [#/Vol] 5.1 10*3/uL 2.0-7.7 [facility] Anion gap in Serum or Plasma Ordered By: Teodoro Garcia on 02-21-2025 Anion gap [Moles/Vol] 12 mmol/L 5-15 [facility] Automated lymphocyte count a s percentage of total leukocytesOrdered By: Teodoro Garcia on 02-21-2025 Lymphocytes/100 WBC Auto (Unsp spec) 33.3 % 19-41 [facility] BUN/creatinine ratioOrdered By: Teodoro Garcia on 02-21-2025 Urea nitrogen/Creatinine [Mass ratio] 13.6 mg/mg 10-20 [facility] Basophil percentageOrdered B y: Teodoro Garcia on 02-21-2025 Basophils/100 WBC (Bld) 0.6 % 0-1 [facility] Bilirubin Test strip Ql (U)O rdered By: Teodoro Garcia on 02-21-2025 Bilirubin Ql (U) Negative Negative [facility] Bilirubin, totalOrdered By: Teodoro Garcia on 02-21-2025 Bilirubin [Mass/Vol] 0.62 mg/dL 0.00-1.30 [facility] CBC W/Diff, Automatedon 0 1-2024 Absolute Lymph 3.01 X10 3/uL Normal 0.83-4.51 [facility] Comment on above: Performed By: #### M 100.1000 #### [facility] [address] [place], [address] Absolute Neut 5.1 X10 3/uL Normal 2.0-7.7 [facility] Comment on above: Performed By: #### M 100.1000 #### [facility] [address] [place], [address] Basophils/100 WBC (Bld) 0.6 % Normal 0-1 [facility] Comment on above: Performed By: #### M 100.1000 #### [facility] [address] [place], [address] Eosinophils/100 WBC (Bld) 2.1 % Normal 0-5 [facility] Comment on above: Performed By: #### M 100.1000 #### [facility] [address] [place], [address] Erythrocyte distribution width (RBC) [Ratio] 12.2 % Normal 11.6-14.6 [facility] Comment on above: Performed By: #### M 100.1000 #### [facility] [address] [place], [address] Hematocrit (Bld) [Volume fraction] 37.5 % Normal 37-47 [facility] Comment on above: Performed By: #### M 100.1000 #### [facility] [address] [place], [address] Hemoglobin (Bld) [Mass/Vol] 12.7 g/dL Normal 12.0-15.0 [facility] Comment on above: Performed By: #### M 100.1000 #### [facility] [address] [place], [address] IG% 0.200 Normal 0.0-0.9 [facility] Comment on above: Result Comment: IG% - Immature Granulocytes (promyelocytes, myelocytes and metamyelocytes) > 1% indicates that a LEFT SHIFT is Present. Performed By: #### M 100.1000 #### [facility] [address] [place], [address] Lymphocytes/100 WBC (Bld) 33.3 % Normal 19-41 [facility] Comment on above: Performed By: #### M 100.1000 #### [facility] [address] [place], [address] MCH (RBC) [Entitic mass] 28.6 pg Normal 27.0-32.0 [facility] Comment on above: Performed By: #### M 100.1000 #### [facility] [address] [place], [address] MCHC (RBC) [Mass/Vol] 33.9 g/dL Normal 32-36 [facility] Comment on above: Performed By: #### M 100.1000 #### [facility] [address] [place], [address] MCV (RBC) [Entitic vol] 84.5 fL Normal 81-99 [facility] Comment on above: Performed By: #### M 100.1000 #### [facility] [address] [place], [address] Monocytes/100 WBC (Bld) 8.0 % Normal 0-10 [facility] Comment on above: Performed By: #### M 100.1000 #### [facility] [address] [place], [address] Neutrophils/100 WBC (Bld) 55.8 % Normal 47-70 [facility] Comment on above: Performed By: #### M 100.1000 #### [facility] [address] [place], [address] Nucleated RBC (Bld) [#/Vol] 0 10*3/uL Normal 0-5 [facility] Comment on above: Performed By: #### M 100.1000 #### [facility] [address] [place], [address] Platelet mean volume (Bld) [Entitic vol] 10.3 fL Normal 6.2-12.0 [facility] Comment on above: Performed By: #### M 100.1000 #### [facility] [address] [place], [address] Platelets (Bld) [#/Vol] 303 10*3/uL Normal 150-450 [facility] Comment on above: Performed By: #### M 100.1000 #### [facility] [address] [place], [address] RBC (Bld) [#/Vol] 4.44 10*6/uL Normal 4.2-5.4 [facility] Comment on above: Performed By: #### M 100.1000 #### [facility] [address] [place], [address] RDW SD 37.1 fl Normal 35.1-43.9 [facility] Comment on above: Performed By: #### M 100.1000 #### [facility] [address] [place], [address] WBC (Bld) [#/Vol] 9.1 10*3/uL Normal 4.4-11.0 [facility] Comment on above: Performed By: #### M 100.1000 #### [facility] [address] [place], [address] Carbon dioxide, total [Moles /volume] in Central venous bloodOrdered By: Teodoro Garcia on 02-21-2025 CO2 [Moles/Vol] 20.7 mmol/L Low 21.0-32.0 [facility] Chloride assayOrdered By: Jess Garcia on 02-21-2025 Chloride [Moles/Vol] 105 mmol/L 98-108 [facility] Comprehensive Metabolic Prof ilon 02-21-2025 Albumin [Mass/Vol] 4.4 g/dL Normal 3.5-5.0 [facility] Comment on above: Performed By: #### M 100.1000 #### [facility] [address] [place], [address] Albumin/Globulin [Mass ratio] 1.7 {ratio} Normal 0.9-2.4 [facility] Comment on above: Performed By: #### M 100.1000 #### [facility] [address] [place], [address] ALK PHOS 55 U/L Normal 35-104 [facility] Comment on above: Performed By: #### M 100.1000 #### [facility] [address] [place], [address] ALT [Catalytic activity/Vol] 8 U/L Normal <=34 [facility] Comment on above: Performed By: #### M 100.1000 #### [facility] [address] [place], [address] AST [Catalytic activity/Vol] 21 U/L Normal <=31 [facility] Comment on above: Performed By: #### M 100.1000 #### [facility] [address] [place], [address] Bilirubin [Mass/Vol] 0.62 mg/dL Normal 0.00-1.30 [facility] Comment on above: Performed By: #### M 100.1000 #### [facility] [address] [place], [address] BUN/CRE 13.6 RATIO Normal 10-20 [facility] Comment on above: Performed By: #### M 100.1000 #### [facility] [address] [place], [address] Calcium [Mass/Vol] 9.4 mg/dL Normal 7.6-11.0 [facility] Comment on above: Performed By: #### M 100.1000 #### [facility] [address] [place], [address] Chloride [Moles/Vol] 105 mmol/L Normal 98-108 [facility] Comment on above: Performed By: #### M 100.1000 #### [facility] [address] [place], [address] CO2 [Moles/Vol] 20.7 mmol/L Low 21.0-32.0 [facility] Comment on above: Performed By: #### M 100.1000 #### [facility] [address] [place], [address] Creatinine [Mass/Vol] 0.93 mg/dL Normal 0.70-1.20 [facility] Comment on above: Performed By: #### M 100.1000 #### [facility] [address] [place], [address] ECRCL 84.02 ml/min Normal 50-250 [facility] Comment on above: Performed By: #### M 100.1000 #### [facility] [address] [place], [address] GAP 12 Normal 5-15 [facility] Comment on above: Performed By: #### M 100.1000 #### [facility] [address] [place], [address] GFR/1.73 sq M.predicted among non-blacks MDRD (S/P/Bld) [Vol rate/Area] 90 mL/min/{1.73_m2} Normal >60 [facility] Comment on above: Result Comment: mL/m in/1.73m2 CKD-EPI Creatinine Equation (2020) Performed By: #### M 100.1000 #### [facility] [address] [place], [address] Globulin (S) [Mass/Vol] 2.5 g/dL Normal 2.2-4.2 [facility] Comment on above: Performed By: #### M 100.1000 #### [facility] [address] [place], [address] Glucose [Mass/Vol] 90 mg/dL Normal 70-99 [facility] Comment on above: Performed By: #### M 100.1000 #### [facility] [address] [place], [address] Potassium [Moles/Vol] 4.0 mmol/L Normal 3.3-5.1 [facility] Comment on above: Performed By: #### M 100.1000 #### [facility] [address] [place], [address] Sodium [Moles/Vol] 138 mmol/L Normal 133-145 [facility] Comment on above: Performed By: #### M 100.1000 #### [facility] [address] [place], [address] T PROT 6.9 g/dL Normal 5.9-8.4 [facility] Comment on above: Performed By: #### M 100.1000 #### [facility] [address] [place], [address] Urea nitrogen [Mass/Vol] 13 mg/dL Normal 4-19 [facility] Comment on above: Performed By: #### M 100.1000 #### [facility] [address] [place], [address] Emergency Department Summary on 02-21-2025 Emergency Department Summary [facility] Medical Records Department [address] [address] Emergency Department Summary 02/21/25 MR#: [id number] Acct: [id number] Name: JOCELYN BARAJAS Rep #: [id number] : 2005 19 From: Teodoro Garcia DO [...] The patient is waiting to follow-up with [facility]. The patient was seen in the last [...] worsening pain she presents for repeat evaluation. [facility] Medical History Wears glasses Bipolar disorder Anxiety Non-smoker PCOS (polycystic ovarian syndrome) Endometriosis determined by laparoscopy ADHD Asthma Home Medications ???Medication ???Instructions ???Recorded ???Last Taken ???Type d-mannose 1 cap PO DAILY 02/05/25 Unknown Hi story ondansetron 4 mg disintegrating 4 mg PO TID PRN nausea and 5 Unknown Rx tablet vomiting #21 tabs oxycodone-acetaminop hen 5 mg-325 1 tab PO Q6H PRN [...] Neurologic: Denies headache(s) Psychiatric Psychiatric: Reports anxiety Hematologic/Lymphati c Hematologic/Lymphati c: Denies easy bleeding or easy bruising EXAM [...] slightly hypertensi (more content not included)... Normal [facility] Eosinophil percentageOrdered By: Teodoro Garcia on 02-21-2025 Eosinophils/100 WBC (Bld) 2.1 % 0-5 [facility] Erythrocyte distribution wid th ratioOrdered By: Teodoro Garcia on 02-21-2025 Erythrocyte distribution width (RBC) [Ratio] 12.2 % 11.6-14.6 [facility] Erythrocyte distribution wid th standard deviationOrdered By: Teodoro Garcia on 02-21-2025 Erythrocyte distribution width (RBC) [Ratio] 37.1 fl 35.1-43.9 [facility] Glomerular filtration rate ( GFR) estimation/1.73 sq m using serum, plasma, or whole bOrdered By: Teodoro Garcia on 02-21-2025 GFR/1.73 sq M.predicted among non-blacks MDRD (S/P/Bld) [Vol rate/Area] 90 mL/min/{1.73_m2} >60 [facility] Comment on above: mL/min/1.73m2 CKD-EP I Creatinine Equation (2020) Hematocrit Auto (Bld) [Volum e fraction]Ordered By: Teodoro Garcia on 02-21-2025 Hematocrit (Bld) [Volume fraction] 37.5 % 37-47 [facility] Hemoglobin measurementOrdere d By: Teodoro Garcia on 02-21-2025 Hemoglobin (Bld) [Mass/Vol] 12.7 g/dL 12.0-15.0 [facility] Immature granulocytes/100 WB C Auto (Bld)Ordered By: Teodoro Garcia on 02-21-2025 Immature granulocytes/100 WBC (Bld) 0.200 % 0.0-0.9 [facility] Comment on above: IG% - Immature Granu locytes (promyelocytes, myelocytes and metamyelocytes) > 1% indicates that a LEFT SHIFT is Present. Ketones Test strip Ql (U)Ord ered By: Teodoro Garcia on 02-21-2025 Ketones Ql (U) Negative Negative [facility] - Chemistry and C hemistry - challengeOrdered By: Teodoro Garcia on 02-21-2025 AST [Catalytic activity/Vol] 21 U/L <32 [facility] Lipaseon 02-21-2025 Lipase [Catalytic activity/Vol] 42 U/L Normal 13-75 [facility] Comment on above: Result Comment: Antonio castro note: LIPASE revised reference range effective 22. New Lipase methodology. Expected to produce lower values than the previous assay method. NEW Reference Range: 13 - 75 U/L Performed By: #### M 100.1000 #### [facility] [address] [place], [address] Lipase measurementOrdered By : Teodoro Garcia on 02-21-2025 Lipase [Catalytic activity/Vol] 42 U/L 13-75 [facility] Comment on above: Please note:LIPASE r evised reference range effective 22. New Lipase methodology. Expected to produce lower values than the previous assay method. NEW Reference Range: 13 - 75 U/L MCV (mean corpuscular volume ) determinationOrdered By: Teodoro Garcia on 02-21-2025 MCV (RBC) [Entitic vol] 84.5 fL 81-99 [facility] Mean corpuscular hemoglobin (MCH) determinationOrdered By: Teodoro Garcia on 02-21-2025 MCH (RBC) [Entitic mass] 28.6 pg 27.0-32.0 [facility] Mean corpuscular hemoglobin concentration (MCHC) determinationOrdered By: Teodoro Garcia on 02-21-2025 MCHC (RBC) [Mass/Vol] 33.9 g/dL 32-36 [facility] Mean platelet volume determi nationOrdered By: Teodoro Garcia on 02-21-2025 Platelet mean volume (Bld) [Entitic vol] 10.3 fL 6.2-12.0 [facility] Microscopic analysis of urin e for red blood cells (RBC)Ordered By: Teodoro Garcia on 02-21-2025 Microscopic analysis of urine for red blood cells (RBC) 0 SEEN /hpf 0-5 [facility] Monocyte percentageOrdered B y: Teodoro Garcia on 02-21-2025 Monocytes/100 WBC (Bld) 8.0 % 0-10 [facility] Mucus LM Ql (Urine sed)Order ed By: Teodoro Garcia on 02-21-2025 Mucus Ql (Urine sed) 0 SEEN /hpf [facility] Neutrophil percentageOrdered By: Teodoro Garcia on 02-21-2025 Neutrophils/100 WBC (Bld) 55.8 % 47-70 [facility] Nitrite Test strip Ql (U)Ord ered By: Teodoro Garcia on 02-21-2025 Nitrite Ql (U) Negative Negative [facility] Nucleated red blood cell per centageOrdered By: Teodoro Garcia on 02-21-2025 Nucleated RBC/100 WBC (Bld) [Ratio] 0 % 0-5 [facility] Platelet countOrdered By: Jess Garcia on 02-21-2025 Platelets (Bld) [#/Vol] 303 10*3/uL 150-450 [facility] Potassium measurement (mass/ volume)Ordered By: Teodoro Garcia on 02-21-2025 Potassium (Unsp spec) [Mass/Vol] 4.0 mmol/L 3.3-5.1 [facility] ,Serum,hCG Quali.on 02-21-2025 HCG, SERUM QUAL Negative Normal [facility] Comment on above: Performed By: #### M 100.1000 #### [facility] [address] [place] [address], [address] Protein Test strip Ql (U)Ord ered By: Teodoro Garcia on 02-21-2025 Protein Ql (U) 15 mg/dl High Negative [facility] RBC Auto (Bld) [#/Vol]Ordere d By: Teodoro Garcia on 02-21-2025 RBC (Bld) [#/Vol] 4.44 10*6/uL 4.2-5.4 [facility] Serum beta-hCG test, qualita tiveOrdered By: Teodoro Garcia on 02-21-2025 Beta HCG ( test) Ql Negative [facility] Serum creatinine measurement (mass/volume)Ordered By: Teodoro Garcia on 02-21-2025 Creatinine [Mass/Vol] 0.93 mg/dL 0.70-1.20 [facility] Serum globulin measurementOr dered By: Teodoro Garcia on 02-21-2025 Globulin (S) [Mass/Vol] 2.5 g/dL 2.2-4.2 [facility] Serum glucose measurement (m ass/volume)Ordered By: Teodoro Garcia on 02-21-2025 Glucose [Mass/Vol] 90 mg/dL 70-99 [facility] Serum or plasma alanine lowe otransferase (ALT) measurementOrdered By: Teodoro Garcia on 02-21-2025 ALT [Catalytic activity/Vol] 8 U/L <35 [facility] Serum or plasma albumin vel urement (mass/volume)Ordered By: Teodoro Garcia on 02-21-2025 Albumin [Mass/Vol] 4.4 g/dL 3.5-5.0 [facility] Serum or plasma albumin/glob ulin mass ratioOrdered By: Teodoro Garcia on 02-21-2025 Albumin/Globulin [Mass ratio] 1.7 {ratio} 0.9-2.4 [facility] Serum or plasma alkaline jeromy sphatase measurementOrdered By: Teodoro Garcia on 02-21-2025 ALP [Catalytic activity/Vol] 55 U/L 35-104 [facility] Serum or plasma calcium vel urement (mass/volume)Ordered By: Teodoro Garcia on 02-21-2025 Calcium [Mass/Vol] 9.4 mg/dL 7.6-11.0 [facility] Serum or plasma urea nitroge n measurement (mass/volume)Ordered By: Teodoro Garcia on 02-21-2025 Urea nitrogen [Mass/Vol] 13 mg/dL 4-19 [facility] Sodium levelOrdered By: Jeffrey Garcia on 02-21-2025 Sodium [Moles/Vol] 138 mmol/L 133-145 [facility] Squamous epithelial cells de tection in urine sediment by light microscopyOrdered By: Teodoro Garcia on 02-21-2025 Epithelial cells.squamous LM Ql (Urine sed) 5-10 SEEN /hpf 5-10 [facility] Total proteinOrdered By: Fran Garcia on 02-21-2025 Protein [Mass/Vol] 6.9 g/dL 5.9-8.4 [facility] Urinalysis, Completeon 02-21 BACTERIA 2+ /hpf Normal None Seen [facility] Comment on above: Order Comment: COLLE CTOR TO SPECIFY Performed By: #### L 400.0001 #### [facility] [address] [place], [address] EPI,SQUAMOUS 5-10 SEEN Normal 5-10 [facility] Comment on above: Order Comment: MAGGIE CTOR TO SPECIFY Performed By: #### L 400.0001 #### [facility] [address] [place], [address] WBC 0-5 SEEN Normal 0-5 [facility] Comment on above: Order Comment: MAGGIE CTOR TO SPECIFY Performed By: #### L 400.0001 #### [facility] [address] [place], [address] Mucus Ql (Urine sed) 0 SEEN Normal [facility] Comment on above: Order Comment: MAGGIE CTOR TO SPECIFY Performed By: #### L 400.0001 #### [facility] [address] [place], [address] RBC 0 SEEN Normal 0-5 [facility] Comment on above: Order Comment: MAGGIE CTOR TO SPECIFY Performed By: #### L 400.0001 #### [facility] [address] [place], [address] Urine clarityOrdered By: Fran Garcia on 02-21-2025 Clarity (U) Clear Clear [facility] Urine color determinationOrd ered By: Teodoro Garcia on 02-21-2025 Color (U) Yellow Yellow [facility] Urine glucose detectionOrder ed By: Teodoro Garcia on 02-21-2025 Glucose Ql (U) Normal mg/dl Normal [facility] Urine leukocyte esterase det ection by dipstickOrdered By: Teodoro Garcia on 02-21-2025 Leukocyte esterase Test strip Ql (U) 25 /ul High Negative [facility] Urine pHOrdered By: Teodoro dunn on 02-21-2025 pH (U) 6.0 [pH] 5.0 - 8.0 [facility] Urine sediment bacteria coun t by microscopy (number/high power field)Ordered By: Teodoro Garcia on 02-21-2025 Bacteria LM.HPF (Urine sed) [#/Area] 2 /[HPF] None Seen [facility] Urine specific gravity measu rementOrdered By: Teodoro Garcia on 02-21-2025 Specific gravity (U) [Rel density] 1.020 1.002-1.030 [facility] Urine urobilinogen measureme ntOrdered By: Teodoro Garcia on 02-21-2025 Urobilinogen Ql (U) Normal mg/dl Normal [facility] White blood cell (WBC) count Ordered By: Teodoro Garcia on 02-21-2025 WBC (Bld) [#/Vol] 9.1 10*3/uL 4.4-11.0 [facility] White blood cell countOrdere d By: Teodoro Garcia on 02-21-2025 White blood cell count 0-5 SEEN /hpf 0-5 [facility] Abdomen/Pelvis W IV Cont ONL Yon 02-05-2025 Abdomen/Pelvis W IV Cont ONLY [facility] Imaging Services [address], [place] [id number] Abdomen/Pelvis W IV Cont ONLY MR#: [id number] Acct: [id number] Name: JOCELYN BARAJAS Rep #: [id number] : 2005 F 19 From: Tiny [place]ats nd, MD PCP: Dr. Mitzy Fung MD Status: REG ER Study: Abdomen/Pelvis W IV Cont ONLY Date of Exam: Exam# [id number] Ordering Dr: Arturo Hernandez MD PROCEDURE: ABDOMEN/PELVIS [...] patient's symptoms and urinalysis recommended. Reading Location: [facility] CC: Dr. Arturo Hernandez MD; Dr. Mitzy Fung MD Clay Carman: Signed Normal [facility] Absolute lymphocyte countOrd ered By: Arturo Hernandez on 02-05-2025 Lymphocytes Auto (Unsp spec) [#/Vol] 2.89 10*3/uL 0.83-4.51 [facility] Absolute neutrophil countOrd ered By: Arturo Hernandez on 02-05-2025 Neutrophils (Bld) [#/Vol] 3.5 10*3/uL 2.0-7.7 [facility] Anion gap in Serum or Plasma Ordered By: Arturo Hernandez on 02-05-2025 Anion gap [Moles/Vol] 14 mmol/L 5- [facility] Automated lymphocyte count a s percentage of total leukocytesOrdered By: Arturo Hernandez on 02-05-2025 Lymphocytes/100 WBC Auto (Unsp spec) 40.5 % 19-41 [facility] BUN/creatinine ratioOrdered By: Arturo Hernandez on 02-05-2025 Urea nitrogen/Creatinine [Mass ratio] 11.9 mg/mg 10-20 [facility] Basophil percentageOrdered B y: Arturo Hernandez on 02-05-2025 Basophils/100 WBC (Bld) 1.0 % 0-1 [facility] Bilirubin Test strip Ql (U)O rdered By: Arturo Hernandez on 02-05-2025 Bilirubin Ql (U) Negative Negative [facility] Bilirubin, totalOrdered By: Arturo Madonnabee on 02-05-2025 Bilirubin [Mass/Vol] 0.66 mg/dL 0.00-1.30 [facility] CBC W/Diff, Automatedon 01-22 Absolute Lymph 2.89 X10 3/uL Normal 0.83-4.51 [facility] Comment on above: Performed By: #### M 100.1000 #### [facility] [address] [place], [address] Absolute Neut 3.5 X10 3/uL Normal 2.0-7.7 [facility] Comment on above: Performed By: #### M 100.1000 #### [facility] [address] [place], [address] Basophils/100 WBC (Bld) 1.0 % Normal 0-1 [facility] Comment on above: Performed By: #### M 100.1000 #### [facility] [address] [place], [address] Eosinophils/100 WBC (Bld) 3.4 % Normal 0-5 [facility] Comment on above: Performed By: #### M 100.1000 #### [facility] [address] [place], [address] Erythrocyte distribution width (RBC) [Ratio] 11.8 % Normal 11.6-14.6 [facility] Comment on above: Performed By: #### M 100.1000 #### [facility] [address] [place], [address] Hematocrit (Bld) [Volume fraction] 41.4 % Normal 37-47 [facility] Comment on above: Performed By: #### M 100.1000 #### [facility] [address] [place], [address] Hemoglobin (Bld) [Mass/Vol] 13.9 g/dL Normal 12.0-15.0 [facility] Comment on above: Performed By: #### M 100.1000 #### [facility] [address] [place], [address] IG% 0.100 Normal 0.0-0.9 [facility] Comment on above: Result Comment: IG% - Immature Granulocytes (promyelocytes, myelocytes and metamyelocytes) > 1% indicates that a LEFT SHIFT is Present. Performed By: #### M 100.1000 #### [facility] [address] [place], [address] Lymphocytes/100 WBC (Bld) 40.5 % Normal 19-41 [facility] Comment on above: Performed By: #### M 100.1000 #### [facility] [address] [place], [address] MCH (RBC) [Entitic mass] 28.6 pg Normal 27.0-32.0 [facility] Comment on above: Performed By: #### M 100.1000 #### [facility] [address] [place], [address] MCHC (RBC) [Mass/Vol] 33.6 g/dL Normal 32-36 [facility] Comment on above: Performed By: #### M 100.1000 #### [facility] [address] [place], [address] MCV (RBC) [Entitic vol] 85.2 fL Normal 81-99 [facility] Comment on above: Performed By: #### M 100.1000 #### [facility] [address] [place], [address] Monocytes/100 WBC (Bld) 6.3 % Normal 0-10 [facility] Comment on above: Performed By: #### M 100.1000 #### [facility] [address] [place], [address] Neutrophils/100 WBC (Bld) 48.7 % Normal 47-70 [facility] Comment on above: Performed By: #### M 100.1000 #### [facility] [address] [place], [address] Nucleated RBC (Bld) [#/Vol] 0 10*3/uL Normal 0-5 [facility] Comment on above: Performed By: #### M 100.1000 #### [facility] [address] [place], [address] Platelet mean volume (Bld) [Entitic vol] 9.8 fL Normal 6.2-12.0 [facility] Comment on above: Performed By: #### M 100.1000 #### [facility] [address] [place], [address] Platelets (Bld) [#/Vol] 341 10*3/uL Normal 150-450 [facility] Comment on above: Performed By: #### M 100.1000 #### [facility] [address] [place], [address] RBC (Bld) [#/Vol] 4.86 10*6/uL Normal 4.2-5.4 [facility] Comment on above: Performed By: #### M 100.1000 #### [facility] [address] [place], [address] RDW SD 36.2 fl Normal 35.1-43.9 [facility] Comment on above: Performed By: #### M 100.1000 #### [facility] [address] [place], [address] WBC (Bld) [#/Vol] 7.1 10*3/uL Normal 4.4-11.0 [facility] Comment on above: Performed By: #### M 100.1000 #### [facility] [address] [place], [address] Carbon dioxide, total [Moles /volume] in Central venous bloodOrdered By: Arturo Hernandez on 02-05-2025 CO2 [Moles/Vol] 20.8 mmol/L Low 21.0-32.0 [facility] Chloride assayOrdered By: Preston sesar Hernandez on 02-05-2025 Chloride [Moles/Vol] 107 mmol/L 98-108 [facility] Comprehensive Metabolic Prof ilon 02-05-2025 Albumin [Mass/Vol] 4.8 g/dL Normal 3.5-5.0 [facility] Comment on above: Performed By: #### M 100.1000 #### [facility] [address] [place], [address] Albumin/Globulin [Mass ratio] 1.7 {ratio} Normal 0.9-2.4 [facility] Comment on above: Performed By: #### M 100.1000 #### [facility] [address] [place], [address] ALK PHOS 59 U/L Normal 35-104 [facility] Comment on above: Performed By: #### M 100.1000 #### [facility] [address] [place], [address] ALT [Catalytic activity/Vol] 15 U/L Normal <=34 [facility] Comment on above: Performed By: #### M 100.1000 #### [facility] [address] [place], [address] AST [Catalytic activity/Vol] 23 U/L Normal <=31 [facility] Comment on above: Performed By: #### M 100.1000 #### [facility] [address] [place], [address] Bilirubin [Mass/Vol] 0.66 mg/dL Normal 0.00-1.30 [facility] Comment on above: Performed By: #### M 100.1000 #### [facility] [address] [place], [address] BUN/CRE 11.9 RATIO Normal 10-20 [facility] Comment on above: Performed By: #### M 100.1000 #### [facility] [address] [place], [address] Calcium [Mass/Vol] 9.9 mg/dL Normal 7.6-11.0 [facility] Comment on above: Performed By: #### M 100.1000 #### [facility] [address] [place], [address] Chloride [Moles/Vol] 107 mmol/L Normal 98-108 [facility] Comment on above: Performed By: #### M 100.1000 #### [facility] [address] [place], [address] CO2 [Moles/Vol] 20.8 mmol/L Low 21.0-32.0 [facility] Comment on above: Performed By: #### M 100.1000 #### [facility] [address] [place], [address] Creatinine [Mass/Vol] 0.91 mg/dL Normal 0.70-1.20 [facility] Comment on above: Performed By: #### M 100.1000 #### [facility] [address] [place], [address] ECRCL 85.87 ml/min Normal 50-250 [facility] Comment on above: Performed By: #### M 100.1000 #### [facility] [address] [place], [address] GAP 14 Normal 5-15 [facility] Comment on above: Performed By: #### M 100.1000 #### [facility] [address] [place], [address] GFR/1.73 sq M.predicted among non-blacks MDRD (S/P/Bld) [Vol rate/Area] 93 mL/min/{1.73_m2} Normal >60 [facility] Comment on above: Result Comment: mL/m in/1.73m2 CKD-EPI Creatinine Equation (2020) Performed By: #### M 100.1000 #### [facility] [address] [place], [address] Globulin (S) [Mass/Vol] 2.9 g/dL Normal 2.2-4.2 [facility] Comment on above: Performed By: #### M 100.1000 #### [facility] [address] [place], [address] Glucose [Mass/Vol] 92 mg/dL Normal 70-99 [facility] Comment on above: Performed By: #### M 100.1000 #### [facility] [address] [place], [address] Potassium [Moles/Vol] 3.8 mmol/L Normal 3.3-5.1 [facility] Comment on above: Performed By: #### M 100.1000 #### [facility] [address] [place], [address] Sodium [Moles/Vol] 142 mmol/L Normal 133-145 [facility] Comment on above: Performed By: #### M 100.1000 #### [facility] [address] [place], [address] T PROT 7.7 g/dL Normal 5.9-8.4 [facility] Comment on above: Performed By: #### M 100.1000 #### [facility] [address] [place], [address] Urea nitrogen [Mass/Vol] 11 mg/dL Normal 4-19 [facility] Comment on above: Performed By: #### M 100.1000 #### [facility] [address] [place], [address] Emergency Department Summary on 02-05-2025 Emergency Department Summary [facility] Medical Records Department [address] [place] [address] Emergency Department Summary 02/05/25 MR#: [id number] Acct: [id number] Name: JOCELYN BARAJAS Rep #: [id number] : 2005 19 From: Arturo Hernandez MD [...] quadrant abdominal pain. No fevers or chills. [facility] Medical History Wears glasses Bipolar disorder [...] repeat CT imaging is indicated as her obstipation/constipa tion has developed over the last 4 days. [...] gas, but she will also start MiraLAX [id number]. Follow-up with primary care. Return instructions reviewed. Disposition is discharged home in stable condition. History Record Review Discussion w/independent historian: Patient and Family (Mother) Additional record(s) reviewed:: Prior ED visit and Prior labs Lab Data Attestation: I reviewed the patient's lab results. Labs: Laboratory Resul (more content not included)... Normal [facility] Eosinophil percentageOrdered By: Arturo Hernandez on 02-05-2025 Eosinophils/100 WBC (Bld) 3.4 % 0-5 [facility] Erythrocyte distribution wid th ratioOrdered By: Arturo Hernandez on 02-05-2025 Erythrocyte distribution width (RBC) [Ratio] 11.8 % 11.6-14.6 [facility] Erythrocyte distribution wid th standard deviationOrdered By: Arturo Hernandez on 02-05-2025 Erythrocyte distribution width (RBC) [Ratio] 36.2 fl 35.1-43.9 [facility] Glomerular filtration rate ( GFR) estimation/1.73 sq m using serum, plasma, or whole bOrdered By: Arturo Hernandez on 02-05-2025 GFR/1.73 sq M.predicted among non-blacks MDRD (S/P/Bld) [Vol rate/Area] 93 mL/min/{1.73_m2} >60 [facility] Comment on above: mL/min/1.73m2 CKD-EP I Creatinine Equation (2020) Hematocrit Auto (Bld) [Volum e fraction]Ordered By: Arturo Hernandez on 02-05-2025 Hematocrit (Bld) [Volume fraction] 41.4 % 37-47 [facility] Hemoglobin measurementOrdere d By: Arturo Hernandez on 02-05-2025 Hemoglobin (Bld) [Mass/Vol] 13.9 g/dL 12.0-15.0 [facility] Immature granulocytes/100 WB C Auto (Bld)Ordered By: Arturo Hernandez on 02-05-2025 Immature granulocytes/100 WBC (Bld) 0.100 % 0.0-0.9 [facility] Comment on above: IG% - Immature Granu locytes (promyelocytes, myelocytes and metamyelocytes) > 1% indicates that a LEFT SHIFT is Present. Ketones Test strip Ql (U)Ord ered By: Arturo Hernandez on 02-05-2025 Ketones Ql (U) Negative Negative [facility] - Chemistry and C hemistry - challengeOrdered By: Arturo Hernandez on 02-05-2025 AST [Catalytic activity/Vol] 23 U/L <32 [facility] Lipaseon 02-05-2025 Lipase [Catalytic activity/Vol] 30 U/L Normal 13-75 [facility] Comment on above: Result Comment: Antonio castro note: LIPASE revised reference range effective 22. New Lipase methodology. Expected to produce lower values than the previous assay method. NEW Reference Range: 13 - 75 U/L Performed By: #### L 400.0001 #### [facility] [address] [place], [address] Lipase measurementOrdered By : Arturo Hernandez on 02-05-2025 Lipase [Catalytic activity/Vol] 30 U/L 13-75 [facility] Comment on above: Please note:LIPASE r evised reference range effective 22. New Lipase methodology. Expected to produce lower values than the previous assay method. NEW Reference Range: 13 - 75 U/L MCV (mean corpuscular volume ) determinationOrdered By: Arturo Hernandez on 02-05-2025 MCV (RBC) [Entitic vol] 85.2 fL 81-99 [facility] Mean corpuscular hemoglobin (MCH) determinationOrdered By: Arturo Hernandez on 02-05-2025 MCH (RBC) [Entitic mass] 28.6 pg 27.0-32.0 [facility] Mean corpuscular hemoglobin concentration (MCHC) determinationOrdered By: Arturo Hernandez on 02-05-2025 MCHC (RBC) [Mass/Vol] 33.6 g/dL 32-36 [facility] Mean platelet volume determi nationOrdered By: Arturo Hernandez on 02-05-2025 Platelet mean volume (Bld) [Entitic vol] 9.8 fL 6.2-12.0 [facility] Microscopic analysis of urin e for red blood cells (RBC)Ordered By: Arturo Hernandez on 02-05-2025 Microscopic analysis of urine for red blood cells (RBC) 0 SEEN /hpf 0-5 [facility] Monocyte percentageOrdered B y: Arturo Hernandez on 02-05-2025 Monocytes/100 WBC (Bld) 6.3 % 0-10 [facility] Mucus LM Ql (Urine sed)Order ed By: Arturo Hernandez on 02-05-2025 Mucus Ql (Urine sed) 0 SEEN /hpf [facility] Neutrophil percentageOrdered By: Arturo Hernandez on 02-05-2025 Neutrophils/100 WBC (Bld) 48.7 % 47-70 [facility] Nitrite Test strip Ql (U)Ord ered By: Arturo Hernandez on 02-05-2025 Nitrite Ql (U) Negative Negative [facility] Nucleated red blood cell per centageOrdered By: Arturo Hernandez on 02-05-2025 Nucleated RBC/100 WBC (Bld) [Ratio] 0 % 0-5 [facility] Platelet countOrdered By: Preston Hernandez on 02-05-2025 Platelets (Bld) [#/Vol] 341 10*3/uL 150-450 [facility] Potassium measurement (mass/ volume)Ordered By: Arturo Hernandez on 02-05-2025 Potassium (Unsp spec) [Mass/Vol] 3.8 mmol/L 3.3-5.1 [facility] ,Serum,hCG Quali.on 02-05-2025 HCG, SERUM QUAL Negative Normal [facility] Comment on above: Performed By: #### M 100.1000 #### [facility] [address] [place] [address], [address] Protein Test strip Ql (U)Ord ered By: Arturo Hernandez on 02-05-2025 Protein Ql (U) 30 mg/dl High Negative [facility] RBC Auto (Bld) [#/Vol]Ordere d By: Arturo Hernandez on 02-05-2025 RBC (Bld) [#/Vol] 4.86 10*6/uL 4.2-5.4 [facility] Serum beta-hCG test, qualita tiveOrdered By: Arturo Hernandez on 02-05-2025 Beta HCG ( test) Ql Negative [facility] Serum creatinine measurement (mass/volume)Ordered By: Arturo Hernandez on 02-05-2025 Creatinine [Mass/Vol] 0.91 mg/dL 0.70-1.20 [facility] Serum globulin measurementOr dered By: Arturo Hernandez on 02-05-2025 Globulin (S) [Mass/Vol] 2.9 g/dL 2.2-4.2 [facility] Serum glucose measurement (m ass/volume)Ordered By: Arturo Hernandez on 02-05-2025 Glucose [Mass/Vol] 92 mg/dL 70-99 [facility] Serum or plasma alanine lowe otransferase (ALT) measurementOrdered By: Arturo Hernandez on 02-05-2025 ALT [Catalytic activity/Vol] 15 U/L <35 [facility] Serum or plasma albumin vel urement (mass/volume)Ordered By: Arturo Hernandez on 02-05-2025 Albumin [Mass/Vol] 4.8 g/dL 3.5-5.0 [facility] Serum or plasma albumin/glob ulin mass ratioOrdered By: Arturo Hernandez on 02-05-2025 Albumin/Globulin [Mass ratio] 1.7 {ratio} 0.9-2.4 [facility] Serum or plasma alkaline jeromy sphatase measurementOrdered By: Arturo Hernandez on 02-05-2025 ALP [Catalytic activity/Vol] 59 U/L 35-104 [facility] Serum or plasma calcium vel urement (mass/volume)Ordered By: Arturo Hernandez on 02-05-2025 Calcium [Mass/Vol] 9.9 mg/dL 7.6-11.0 [facility] Serum or plasma urea nitroge n measurement (mass/volume)Ordered By: Arturo Hernandez on 02-05-2025 Urea nitrogen [Mass/Vol] 11 mg/dL 4-19 [facility] Sodium levelOrdered By: Arturo Hernandez on 02-05-2025 Sodium [Moles/Vol] 142 mmol/L 133-145 [facility] Squamous epithelial cells de tection in urine sediment by light microscopyOrdered By: Arturo Hernandez on 02-05-2025 Epithelial cells.squamous LM Ql (Urine sed) 0-5 SEEN /hpf 5-10 [facility] Total proteinOrdered By: Anabella Hernandez on 02-05-2025 Protein [Mass/Vol] 7.7 g/dL 5.9-8.4 [facility] Urinalysis, Completeon 02-05 EPI,SQUAMOUS 0-5 SEEN Normal 5-10 [facility] Comment on above: Order Comment: CLEAN CATCH Performed By: #### M 100.1000 #### [facility] [address] [place], [address] BACTERIA 0 SEEN Normal None Seen [facility] Comment on above: Order Comment: CLEAN CATCH Performed By: #### M 100.1000 #### [facility] [address] [place], [address] Mucus Ql (Urine sed) 0 SEEN Normal [facility] Comment on above: Order Comment: CLEAN CATCH Performed By: #### M 100.1000 #### [facility] [address] [place], [address] RBC 0 SEEN Normal 0-5 [facility] Comment on above: Order Comment: CLEAN CATCH Performed By: #### M 100.1000 #### [facility] [address] [place], [address] WBC 0 SEEN Normal 0-5 [facility] Comment on above: Order Comment: CLEAN CATCH Performed By: #### M 100.1000 #### [facility] [address] [place], [address] Urine clarityOrdered By: Anabella Hernandez on 02-05-2025 Clarity (U) Clear Clear [facility] Urine color determinationOrd ered By: Arturo Hernandez on 02-05-2025 Color (U) Yellow Yellow [facility] Urine glucose detectionOrder ed By: Arturo Hernandez on 02-05-2025 Glucose Ql (U) Normal mg/dl Normal [facility] Urine leukocyte esterase det ection by dipstickOrdered By: Arturo Hernandez on 02-05-2025 Leukocyte esterase Test strip Ql (U) Negative Negative [facility] Urine pHOrdered By: Arturo grace on 02-05-2025 pH (U) 7.0 [pH] 5.0 - 8.0 [facility] Urine sediment bacteria coun t by microscopy (number/high power field)Ordered By: Arturo Hernandez on 02-05-2025 Bacteria LM.HPF (Urine sed) [#/Area] 0 /[HPF] None Seen [facility] Urine specific gravity measu rementOrdered By: Arturo Hernandez on 02-05-2025 Specific gravity (U) [Rel density] 1.005 1.002-1.030 [facility] Urine urobilinogen measureme ntOrdered By: Arturo Hernandez on 02-05-2025 Urobilinogen Ql (U) Normal mg/dl Normal [facility] White blood cell (WBC) count Ordered By: Arturo Hernandez on 02-05-2025 WBC (Bld) [#/Vol] 7.1 10*3/uL 4.4-11.0 [facility] White blood cell countOrdere d By: Arturo Hernandez on 02-05-2025 White blood cell count 0 SEEN /hpf 0-5 [facility] Bilirubin Test strip Ql (U)O rdered By: Yaron Peralta on 01-23-2025 Bilirubin Ql (U) Negative Negative [facility] Emergency Department Summary on 01-23-2025 Emergency Department Summary [facility] Medical Records Department [address] [place] [address] Emergency Department Summary 01/23/25 MR#: [id number] Acct: [id number] Name: JOCELYN BARAJAS Rep #: [id number] : 2005 19 From: Yaron Peralta MD [...] Moderate Worsened by: Nothing Relieved by: Nothing Nausea/Vomiting/Emes is GI Symptom: Negative for Nausea or Vomiting Diarrhea/Melena/Naveen tochezia GI Symptom: Positive for - (History of [...] the pain. Prior similar symptoms: Yes Recent Illness/Hospitalizat ion: No PFSH PFSH Medical History Wears glasses [...] anxiety and depression Endocrine Endocrinology: Denies polydipsia Hematologic/Lymphati c Hematologic/Lymphati c: Denies easy bleeding Allergic/Immunologic Allergic/Immunologic ED: Denies [...] Appearance ED (more content not included)... Normal [facility] Ketones Test strip Ql (U)Ord ered By: Yaron Peralta on 01-23-2025 Ketones Ql (U) Negative Negative [facility] Microscopic analysis of urin e for red blood cells (RBC)Ordered By: Yaron Peralta on 01-23-2025 Microscopic analysis of urine for red blood cells (RBC) 0-5 SEEN /hpf 0-5 [facility] Mucus LM Ql (Urine sed)Order ed By: Yaron Peralta on 01-23-2025 Mucus Ql (Urine sed) 0 SEEN /hpf [facility] Nitrite Test strip Ql (U)Ord ered By: Yaron Peralta on 01-23-2025 Nitrite Ql (U) Negative Negative [facility] ,Serum,hCG Quali.on 01-23-2025 HCG, SERUM QUAL Negative Normal [facility] Comment on above: Performed By: #### L 400.0001 #### [facility] [address] [place], [address] Protein Test strip Ql (U)Ord ered By: Yaron Peralta on 01-23-2025 Protein Ql (U) 15 mg/dl High Negative [facility] Serum beta-hCG test, qualita tiveOrdered By: Yaron Peralta on 01-23-2025 Beta HCG ( test) Ql Negative [facility] Squamous epithelial cells de tection in urine sediment by light microscopyOrdered By: Yaron Peralta on 01-23-2025 Epithelial cells.squamous LM Ql (Urine sed) 0-5 SEEN /hpf 5-10 [facility] Urinalysis, Completeon 01-23 BACTERIA 1+ /hpf Normal None Seen [facility] Comment on above: Order Comment: CLEAN CATCH Performed By: #### L 400.0001 #### [facility] [address] [place], [address] EPI,SQUAMOUS 0-5 SEEN Normal 5-10 [facility] Comment on above: Order Comment: CLEAN CATCH Performed By: #### L 400.0001 #### [facility] [address] [place], [address] RBC 0-5 SEEN Normal 0-5 [facility] Comment on above: Order Comment: CLEAN CATCH Performed By: #### L 400.0001 #### [facility] [address] [place], [address] WBC 0-5 SEEN Normal 0-5 [facility] Comment on above: Order Comment: CLEAN CATCH Performed By: #### L 400.0001 #### [facility] [facility] [address] [place], [address] Mucus Ql (Urine sed) 0 SEEN Normal [facility] Comment on above: Order Comment: CLEAN CATCH Performed By: #### L 400.0001 #### [facility] [address] [place], [address] Urine clarityOrdered By: Lele Peralta on 01-23-2025 Clarity (U) Sl. Cloudy Clear [facility] Urine color determinationOrd ered By: Yaron Peralta on 01-23-2025 Color (U) Yellow Yellow [facility] Urine glucose detectionOrder ed By: Yaron Peralta on 01-23-2025 Glucose Ql (U) Normal mg/dl Normal [facility] Urine leukocyte esterase det ection by dipstickOrdered By: Yaron Peralta on 01-23-2025 Leukocyte esterase Test strip Ql (U) 25 /ul High Negative [facility] Urine pHOrdered By: Yaron robins on 01-23-2025 pH (U) 6.5 [pH] 5.0 - 8.0 [facility] Urine sediment bacteria coun t by microscopy (number/high power field)Ordered By: Yaron Peralta on 01-23-2025 Bacteria LM.HPF (Urine sed) [#/Area] 1 /[HPF] None Seen [facility] Urine specific gravity measu rementOrdered By: Yaron Peralta on 01-23-2025 Specific gravity (U) [Rel density] 1.010 1.002-1.030 [facility] Urine urobilinogen measureme ntOrdered By: Yaron Peralta on 01-23-2025 Urobilinogen Ql (U) Normal mg/dl Normal [facility] White blood cell countOrdere d By: Yaron Peralta on 01-23-2025 White blood cell count 0-5 SEEN /hpf 0-5 [facility] Absolute lymphocyte countOrd ered By: Javier Isabel on 01-20-2025 Lymphocytes Auto (Unsp spec) [#/Vol] 3.05 10*3/uL 0.83-4.51 [facility] Absolute neutrophil countOrd ered By: Javier Isabel on 01-20-2025 Neutrophils (Bld) [#/Vol] 6.1 10*3/uL 2.0-7.7 [facility] Anion gap in Serum or Plasma Ordered By: Javier Isabel on 01-20-2025 Anion gap [Moles/Vol] 12 mmol/L 5-15 [facility] Automated lymphocyte count a s percentage of total leukocytesOrdered By: Javier Isabel on 01-20-2025 Lymphocytes/100 WBC Auto (Unsp spec) 30.2 % 19-41 [facility] BUN/creatinine ratioOrdered By: Javier Isabel on 01-20-2025 Urea nitrogen/Creatinine [Mass ratio] 8.7 mg/mg Low 10-20 [facility] Basophil percentageOrdered B y: Javier Isabel on 01-20-2025 Basophils/100 WBC (Bld) 0.9 % 0-1 [facility] Bilirubin Test strip Ql (U)O rdered By: Javier Isabel on 01-20-2025 Bilirubin Ql (U) Negative Negative [facility] Bilirubin, totalOrdered By: Javier Isabel on 01-20-2025 Bilirubin [Mass/Vol] 0.67 mg/dL 0.00-1.30 [facility] CBC W/Diff, Automatedon 12-24-2024 Absolute Lymph 3.05 X10 3/uL Normal 0.83-4.51 [facility] Comment on above: Performed By: #### L 100.0100, L700.6800, L501.2450, L500.4050 #### [facility] [address] [place], [address] Absolute Neut 6.1 X10 3/uL Normal 2.0-7.7 [facility] Comment on above: Performed By: #### L 100.0100, L700.6800, L501.2450, L500.4050 #### [facility] [address] [place], [address] Basophils/100 WBC (Bld) 0.9 % Normal 0-1 [facility] Comment on above: Performed By: #### L 100.0100, L700.6800, L501.2450, L500.4050 #### [facility] [address] [place], [address] Eosinophils/100 WBC (Bld) 1.9 % Normal 0-5 [facility] Comment on above: Performed By: #### L 100.0100, L700.6800, L501.2450, L500.4050 #### [facility] [address] [place], [address] Erythrocyte distribution width (RBC) [Ratio] 11.8 % Normal 11.6-14.6 [facility] Comment on above: Performed By: #### L 100.0100, L700.6800, L501.2450, L500.4050 #### [facility] [address] [place], [address] Hematocrit (Bld) [Volume fraction] 40.5 % Normal 37-47 [facility] Comment on above: Performed By: #### L 100.0100, L700.6800, L501.2450, L500.4050 #### [facility] [address] [place], [address] Hemoglobin (Bld) [Mass/Vol] 13.5 g/dL Normal 12.0-15.0 [facility] Comment on above: Performed By: #### L 100.0100, L700.6800, L501.2450, L500.4050 #### [facility] [address] [place], [address] IG% 0.300 Normal 0.0-0.9 [facility] Comment on above: Result Comment: IG% - Immature Granulocytes (promyelocytes, myelocytes and metamyelocytes) > 1% indicates that a LEFT SHIFT is Present. Performed By: #### L 100.0100, L700.6800, L501.2450, L500.4050 #### [facility] [address] [place], [address] Lymphocytes/100 WBC (Bld) 30.2 % Normal 19-41 [facility] Comment on above: Performed By: #### L 100.0100, L700.6800, L501.2450, L500.4050 #### [facility] [address] [place], [address] MCH (RBC) [Entitic mass] 28.7 pg Normal 27.0-32.0 [facility] Comment on above: Performed By: #### L 100.0100, L700.6800, L501.2450, L500.4050 #### [facility] [address] [place], [address] MCHC (RBC) [Mass/Vol] 33.3 g/dL Normal 32-36 [facility] Comment on above: Performed By: #### L 100.0100, L700.6800, L501.2450, L500.4050 #### [facility] [address] [place], [address] MCV (RBC) [Entitic vol] 86.2 fL Normal 81-99 [facility] Comment on above: Performed By: #### L 100.0100, L700.6800, L501.2450, L500.4050 #### [facility] [address] [place], [address] Monocytes/100 WBC (Bld) 6.6 % Normal 0-10 [facility] Comment on above: Performed By: #### L 100.0100, L700.6800, L501.2450, L500.4050 #### [facility] [address] [place], [address] Neutrophils/100 WBC (Bld) 60.1 % Normal 47-70 [facility] Comment on above: Performed By: #### L 100.0100, L700.6800, L501.2450, L500.4050 #### [facility] [address] [place], [address] Nucleated RBC (Bld) [#/Vol] 0 10*3/uL Normal 0-5 [facility] Comment on above: Performed By: #### L 100.0100, L700.6800, L501.2450, L500.4050 #### [facility] [address] [place], [address] Platelet mean volume (Bld) [Entitic vol] 10.1 fL Normal 6.2-12.0 [facility] Comment on above: Performed By: #### L 100.0100, L700.6800, L501.2450, L500.4050 #### [facility] [address] [place], [address] Platelets (Bld) [#/Vol] 358 10*3/uL Normal 150-450 [facility] Comment on above: Performed By: #### L 100.0100, L700.6800, L501.2450, L500.4050 #### [facility] [address] [place], [address] RBC (Bld) [#/Vol] 4.70 10*6/uL Normal 4.2-5.4 [facility] Comment on above: Performed By: #### L 100.0100, L700.6800, L501.2450, L500.4050 #### [facility] [address] [place], [address] RDW SD 37.2 fl Normal 35.1-43.9 [facility] Comment on above: Performed By: #### L 100.0100, L700.6800, L501.2450, L500.4050 #### [facility] [address] [place], [address] WBC (Bld) [#/Vol] 10.1 10*3/uL Normal 4.4-11.0 [facility] Comment on above: Performed By: #### L 100.0100, L700.6800, L501.2450, L500.4050 #### [facility] [address] [place], [address] CT Chest, Abd, Pel w/Contras ton 01-20-2025 CT Chest, Abd, Pel w/Contrast [facility] Imaging Services [address] [address] CT Chest, Abd, Pel w/Contrast MR#: [id number] Acct: [id number] Name: JOCELYN BARAJAS Rep #: [id number] : 2005 F 19 From: José Luis Robison PCP: Dr. Mitzy Fung MD Status: REG ER Study: CT Chest, Abd, Pel w/Contrast Date of Exam: Exam# [id number] Ordering Dr: Javier Isabel DO PROCEDURE: CT [...] on series 2, image 66. Reading Location: [id number] CC: Dr. Javier Isabel DO; Dr. Mitzy Fung MD Clay Carman: Signed Normal [facility] Carbon dioxide, total [Moles /volume] in Central venous bloodOrdered By: Javier Isabel on 01-20-2025 CO2 [Moles/Vol] 21.7 mmol/L 21.0-32.0 [facility] Chloride assayOrdered By: Gabo Isabel on 01-20-2025 Chloride [Moles/Vol] 105 mmol/L 98-108 [facility] Comprehensive Metabolic Prof ilon 01-20-2025 Albumin [Mass/Vol] 4.7 g/dL Normal 3.5-5.0 [facility] Comment on above: Performed By: #### L 100.0100, L700.6800, L501.2450, L500.4050 #### [facility] [address] [place], [address] Albumin/Globulin [Mass ratio] 1.6 {ratio} Normal 0.9-2.4 [facility] Comment on above: Performed By: #### L 100.0100, L700.6800, L501.2450, L500.4050 #### [facility] [address] [place], [address] ALK PHOS 58 U/L Normal 35-104 [facility] Comment on above: Performed By: #### L 100.0100, L700.6800, L501.2450, L500.4050 #### [facility] [address] [place], [address] ALT [Catalytic activity/Vol] 13 U/L Normal <=34 [facility] Comment on above: Performed By: #### L 100.0100, L700.6800, L501.2450, L500.4050 #### [facility] [address] [place], [address] AST [Catalytic activity/Vol] 25 U/L Normal <=31 [facility] Comment on above: Performed By: #### L 100.0100, L700.6800, L501.2450, L500.4050 #### [facility] [address] [place], [address] Bilirubin [Mass/Vol] 0.67 mg/dL Normal 0.00-1.30 [facility] Comment on above: Performed By: #### L 100.0100, L700.6800, L501.2450, L500.4050 #### [facility] [address] [place], [address] BUN/CRE 8.7 RATIO Low 10-20 [facility] Comment on above: Performed By: #### L 100.0100, L700.6800, L501.2450, L500.4050 #### [facility] [address] [place], [address] Calcium [Mass/Vol] 9.7 mg/dL Normal 7.6-11.0 [facility] Comment on above: Performed By: #### L 100.0100, L700.6800, L501.2450, L500.4050 #### [facility] [address] [place], [address] Chloride [Moles/Vol] 105 mmol/L Normal 98-108 [facility] Comment on above: Performed By: #### L 100.0100, L700.6800, L501.2450, L500.4050 #### [facility] [address] [place], [address] CO2 [Moles/Vol] 21.7 mmol/L Normal 21.0-32.0 [facility] Comment on above: Performed By: #### L 100.0100, L700.6800, L501.2450, L500.4050 #### [facility] [address] [place], [address] Creatinine [Mass/Vol] 0.94 mg/dL Normal 0.70-1.20 [facility] Comment on above: Performed By: #### L 100.0100, L700.6800, L501.2450, L500.4050 #### [facility] [address] [place], [address] ECRCL 86.62 ml/min Normal 50-250 [facility] Comment on above: Performed By: #### L 100.0100, L700.6800, L501.2450, L500.4050 #### [facility] [address] [place], [address] GAP 12 Normal 5-15 [facility] Comment on above: Performed By: #### L 100.0100, L700.6800, L501.2450, L500.4050 #### [facility] [address] [place], [address] GFR/1.73 sq M.predicted among non-blacks MDRD (S/P/Bld) [Vol rate/Area] 89 mL/min/{1.73_m2} Normal >60 [facility] Comment on above: Result Comment: mL/m in/1.73m2 CKD-EPI Creatinine Equation (2020) Performed By: #### L 100.0100, L700.6800, L501.2450, L500.4050 #### [facility] [address] [place], [address] Globulin (S) [Mass/Vol] 3.0 g/dL Normal 2.2-4.2 [facility] Comment on above: Performed By: #### L 100.0100, L700.6800, L501.2450, L500.4050 #### [facility] [address] [place], [address] Glucose [Mass/Vol] 92 mg/dL Normal 70-99 [facility] Comment on above: Performed By: #### L 100.0100, L700.6800, L501.2450, L500.4050 #### [facility] [address] [place], [address] Potassium [Moles/Vol] 3.9 mmol/L Normal 3.3-5.1 [facility] Comment on above: Performed By: #### L 100.0100, L700.6800, L501.2450, L500.4050 #### [facility] [address] [place], [address] Sodium [Moles/Vol] 139 mmol/L Normal 133-145 [facility] Comment on above: Performed By: #### L 100.0100, L700.6800, L501.2450, L500.4050 #### [facility] [address] [place], [address] T PROT 7.7 g/dL Normal 5.9-8.4 [facility] Comment on above: Performed By: #### L 100.0100, L700.6800, L501.2450, L500.4050 #### [facility] [address] [place], [address] Urea nitrogen [Mass/Vol] 8 mg/dL Normal 4-19 [facility] Comment on above: Performed By: #### L 100.0100, L700.6800, L501.2450, L500.4050 #### [facility] [address] [place], [address] Emergency Department Summary on 01-20-2025 Emergency Department Summary [facility] Medical Records Department [address] [place] [address] Emergency Department Summary 01/20/25 MR#: [id number] Acct: [id number] Name: JOCELYN BARAJAS Rep #: [id number] : 2005 19 From: Javier Isabel DO PCP: Dr. Mitzy Fung MD Status:DEP ER Location: ED HPI History of Present Illness Chief Complaint: Abd Pain Informant: patient Onset/Context/Timing Onset: Today Mechanism/Context: Fall Quality of Pain: [...] days. Patient denies any fevers or chills. [facility] Medical History Wears glasses Bipolar disorder [...] rash Neurologic Neurologic: Reports headache(s); Denies weakness Allergic/Immunologic Allergic/Immunologic ED: Denies mouth swelling or urticaria EXAM [...] x3, CN's (more content not included)... Normal [facility] Eosinophil percentageOrdered By: Javier Isabel on 01-20-2025 Eosinophils/100 WBC (Bld) 1.9 % 0-5 [facility] Erythrocyte distribution wid th ratioOrdered By: Javier Isabel on 01-20-2025 Erythrocyte distribution width (RBC) [Ratio] 11.8 % 11.6-14.6 [facility] Erythrocyte distribution wid th standard deviationOrdered By: Javier Isabel on 01-20-2025 Erythrocyte distribution width (RBC) [Ratio] 37.2 fl 35.1-43.9 [facility] Glomerular filtration rate ( GFR) estimation/1.73 sq m using serum, plasma, or whole bOrdered By: Javier Isabel on 01-20-2025 GFR/1.73 sq M.predicted among non-blacks MDRD (S/P/Bld) [Vol rate/Area] 89 mL/min/{1.73_m2} >60 [facility] Comment on above: mL/min/1.73m2 CKD-EP I Creatinine Equation (2020) Hematocrit Auto (Bld) [Volum e fraction]Ordered By: Javier Isabel on 01-20-2025 Hematocrit (Bld) [Volume fraction] 40.5 % 37-47 [facility] Hemoglobin measurementOrdere d By: Javier Isabel on 01-20-2025 Hemoglobin (Bld) [Mass/Vol] 13.5 g/dL 12.0-15.0 [facility] Immature granulocytes/100 WB C Auto (Bld)Ordered By: Javier Isabel on 01-20-2025 Immature granulocytes/100 WBC (Bld) 0.300 % 0.0-0.9 [facility] Comment on above: IG% - Immature Granu locytes (promyelocytes, myelocytes and metamyelocytes) > 1% indicates that a LEFT SHIFT is Present. Ketones Test strip Ql (U)Ord ered By: Javier Isabel on 01-20-2025 Ketones Ql (U) Negative Negative [facility] - Chemistry and C hemistry - challengeOrdered By: Javier Isabel on 01-20-2025 AST [Catalytic activity/Vol] 25 U/L <32 [facility] Lipaseon 01-20-2025 Lipase [Catalytic activity/Vol] 28 U/L Normal 13-75 [facility] Comment on above: Result Comment: Antonio castro note: LIPASE revised reference range effective 22. New Lipase methodology. Expected to produce lower values than the previous assay method. NEW Reference Range: 13 - 75 U/L Performed By: #### L 100.0100, L700.6800, L501.2450, L500.4050 #### [facility] [address] [place], [address] Lipase measurementOrdered By : Javier Isabel on 01-20-2025 Lipase [Catalytic activity/Vol] 28 U/L 13-75 [facility] Comment on above: Please note:LIPASE r evised reference range effective 22. New Lipase methodology. Expected to produce lower values than the previous assay method. NEW Reference Range: 13 - 75 U/L MCV (mean corpuscular volume ) determinationOrdered By: Javier Isabel on 01-20-2025 MCV (RBC) [Entitic vol] 86.2 fL 81-99 [facility] Mean corpuscular hemoglobin (MCH) determinationOrdered By: Javier Isabel on 01-20-2025 MCH (RBC) [Entitic mass] 28.7 pg 27.0-32.0 [facility] Mean corpuscular hemoglobin concentration (MCHC) determinationOrdered By: Javier Isabel on 01-20-2025 MCHC (RBC) [Mass/Vol] 33.3 g/dL 32-36 [facility] Mean platelet volume determi nationOrdered By: Javier Isabel on 01-20-2025 Platelet mean volume (Bld) [Entitic vol] 10.1 fL 6.2-12.0 [facility] Microscopic analysis of urin e for red blood cells (RBC)Ordered By: Javier Isabel on 01-20-2025 Microscopic analysis of urine for red blood cells (RBC) 0-5 SEEN /hpf 0-5 [facility] Monocyte percentageOrdered B y: Javier Isabel on 01-20-2025 Monocytes/100 WBC (Bld) 6.6 % 0-10 [facility] Mucus LM Ql (Urine sed)Order ed By: Javier Isabel on 01-20-2025 Mucus Ql (Urine sed) 0 SEEN /hpf [facility] Neutrophil percentageOrdered By: Javier Isabel on 01-20-2025 Neutrophils/100 WBC (Bld) 60.1 % 47-70 [facility] Nitrite Test strip Ql (U)Ord ered By: Javier Isabel on 01-20-2025 Nitrite Ql (U) Negative Negative [facility] Nucleated red blood cell per centageOrdered By: Javier Isabel on 01-20-2025 Nucleated RBC/100 WBC (Bld) [Ratio] 0 % 0-5 [facility] Platelet countOrdered By: Gabo Isabel on 01-20-2025 Platelets (Bld) [#/Vol] 358 10*3/uL 150-450 [facility] Potassium measurement (mass/ volume)Ordered By: Javier Isabel on 01-20-2025 Potassium (Unsp spec) [Mass/Vol] 3.9 mmol/L 3.3-5.1 [facility] ,Serum,hCG Quali.on 01-20-2025 HCG, SERUM QUAL Negative Normal [facility] Comment on above: Performed By: #### L 100.0100, L700.6800, L501.2450, L500.4050 #### [facility] [address] [place] [address], [address] Protein Test strip Ql (U)Ord ered By: Javier Isabel on 01-20-2025 Protein Ql (U) 15 mg/dl High Negative [facility] RBC Auto (Bld) [#/Vol]Ordere d By: Javier Isabel on 01-20-2025 RBC (Bld) [#/Vol] 4.70 10*6/uL 4.2-5.4 [facility] Serum beta-hCG test, qualita tiveOrdered By: Javier Isabel on 01-20-2025 Beta HCG ( test) Ql Negative [facility] Serum creatinine measurement (mass/volume)Ordered By: Javier Isabel on 01-20-2025 Creatinine [Mass/Vol] 0.94 mg/dL 0.70-1.20 [facility] Serum globulin measurementOr dered By: Javier Isabel on 01-20-2025 Globulin (S) [Mass/Vol] 3.0 g/dL 2.2-4.2 [facility] Serum glucose measurement (m ass/volume)Ordered By: Javier Isabel on 01-20-2025 Glucose [Mass/Vol] 92 mg/dL 70-99 [facility] Serum or plasma alanine lowe otransferase (ALT) measurementOrdered By: Javier Isabel on 01-20-2025 ALT [Catalytic activity/Vol] 13 U/L <35 [facility] Serum or plasma albumin vel urement (mass/volume)Ordered By: Javier Isabel on 01-20-2025 Albumin [Mass/Vol] 4.7 g/dL 3.5-5.0 [facility] Serum or plasma albumin/glob ulin mass ratioOrdered By: Javier Isabel on 01-20-2025 Albumin/Globulin [Mass ratio] 1.6 {ratio} 0.9-2.4 [facility] Serum or plasma alkaline jeromy sphatase measurementOrdered By: Javier Isabel 01-20-2025 ALP [Catalytic activity/Vol] 58 U/L 35-104 [facility] Serum or plasma calcium vel urement (mass/volume)Ordered By: Javier Isabel on 01-20-2025 Calcium [Mass/Vol] 9.7 mg/dL 7.6-11.0 [facility] Serum or plasma urea nitroge n measurement (mass/volume)Ordered By: Javier Isabel on 01-20-2025 Urea nitrogen [Mass/Vol] 8 mg/dL 4-19 [facility] Sodium levelOrdered By: Javier Isabel on 01-20-2025 Sodium [Moles/Vol] 139 mmol/L 133-145 [facility] Squamous epithelial cells de tection in urine sediment by light microscopyOrdered By: Javier Isabel on 01-20-2025 Epithelial cells.squamous LM Ql (Urine sed) 0 SEEN /hpf 5-10 [facility] Total proteinOrdered By: Lina Isabel on 01-20-2025 Protein [Mass/Vol] 7.7 g/dL 5.9-8.4 [facility] Urinalysis, Completeon 01-20 RBC 0-5 SEEN Normal 0-5 [facility] Comment on above: Order Comment: CLEAN CATCH Performed By: #### L 400.0001 #### [facility] [address] [place], [address] WBC 0-5 SEEN Normal 0-5 [facility] Comment on above: Order Comment: CLEAN CATCH Performed By: #### L 400.0001 #### [facility] [address] [place], [address] BACTERIA 0 SEEN Normal None Seen [facility] Comment on above: Order Comment: CLEAN CATCH Performed By: #### L 400.0001 #### [facility] [address] [place], [address] EPI,SQUAMOUS 0 SEEN Normal 5-10 [facility] Comment on above: Order Comment: CLEAN CATCH Performed By: #### L 400.0001 #### [facility] [address] [place], [address] Mucus Ql (Urine sed) 0 SEEN Normal [facility] Comment on above: Order Comment: CLEAN CATCH Performed By: #### L 400.0001 #### [facility] [address] [place], [address] Urine clarityOrdered By: Lina Isabel on 01-20-2025 Clarity (U) Clear Clear [facility] Urine color determinationOrd ered By: Javier Isabel on 01-20-2025 Color (U) Straw Yellow [facility] Urine glucose detectionOrder ed By: Javier Isabel on 01-20-2025 Glucose Ql (U) Normal mg/dl Normal [facility] Urine leukocyte esterase det ection by dipstickOrdered By: Javier Isabel on 01-20-2025 Leukocyte esterase Test strip Ql (U) Negative Negative [facility] Urine pHOrdered By: Javier dow on 01-20-2025 pH (U) 7.0 [pH] 5.0 - 8.0 [facility] Urine sediment bacteria coun t by microscopy (number/high power field)Ordered By: Javier Isabel on 01-20-2025 Bacteria LM.HPF (Urine sed) [#/Area] 0 /[HPF] None Seen [facility] Urine specific gravity measu rementOrdered By: Javier Isabel on 01-20-2025 Specific gravity (U) [Rel density] 1.010 1.002-1.030 [facility] Urine urobilinogen measureme ntOrdered By: Javier Isabel on 01-20-2025 Urobilinogen Ql (U) Normal mg/dl Normal [facility] White blood cell (WBC) count Ordered By: Javier Isabel on 01-20-2025 WBC (Bld) [#/Vol] 10.1 10*3/uL 4.4-11.0 [facility] White blood cell countOrdere d By: Javier Isabel on 01-20-2025 White blood cell count 0-5 SEEN /hpf 0-5 [facility] C-REACTIVE PROTEINon 025 CRP [Mass/Vol] mg/L Invalid Interpretation Code <= 1.0 mg/dL [facility] Comment on above: Order Comment: Relea se [...] to generate a CRP response. Verified By: [id number] C-reactive protein (Lab Fred ect)on 09-07-2024 CRP [Mass/Vol] <= 1.0 mg/dL MG/DL [facility] Comment on above: CRP determinations i n neonates should be interpreted with caution. CRP may be elevated in circumstances not associated with inflammation (e.g. difficult delivery, pneumothorax). In premature neonates CRP levels may not rise to abnormal levels even if sepsis is present; some speculate that immature liver function decreases the ability to generate a CRP response. Verified By: [id number] COMPLETE BLOOD COUNT WITH DI PADMINIARIELon 09-07-2024 Basophil \P\ 0.08 10E3/???L High 0.02-0.06 [facility] Comment on above: Order Comment: Relea se to patient->Automatic Basophils/100 WBC (Bld) 0.7 % Invalid Interpretation Code 0.3-0.9 [facility] Comment on above: Order Comment: Relea se to patient->Automatic Eosinophil \P\ 0.17 10E3/???L Invalid Interpretation Code 0.04-0.27 [facility] Comment on above: Order Comment: Relea se to patient->Automatic Eosinophils/100 WBC (Bld) 1.4 % Invalid Interpretation Code 0.6-3.8 [facility] Comment on above: Order Comment: Relea se to patient->Automatic Erythrocyte distribution width (RBC) [Ratio] 12.4 % Invalid Interpretation Code 11.9-14.8 [facility] Comment on above: Order Comment: Relea se to patient->Automatic Hematocrit (Bld) [Volume fraction] 46.4 % High 35.5-44.6 [facility] Comment on above: Order Comment: Relea se to patient->Automatic Hemoglobin (Bld) [Mass/Vol] 15.1 g/dL High 11.4-14.8 [facility] Comment on above: Order Comment: Relea se to patient->Automatic Immature granulocytes/100 WBC (Bld) 0.3 % Invalid Interpretation Code 0.2-0.5 [facility] Comment on above: Order Comment: Relea se to patient->Automatic Result Comment: Jina ture Granulocyte Percent includes promyelocytes, myelocytes,and metamyelocytes. IG% > 1.0 indicates a left shift is present. With automated differentials, bands are included in the neutrophil count and not in the Immature Granulocyte Percent. Lymphocyte \P\ 3.57 10E3/???L High 1.51-2.99 [facility] Comment on above: Order Comment: Relea se to patient->Automatic Lymphocytes/100 WBC (Bld) 29.2 % Invalid Interpretation Code 21.8-42.1 [facility] Comment on above: Order Comment: Relea se to patient->Automatic MCH (RBC) [Entitic mass] 28.2 pg Invalid Interpretation Code 25.7-31.2 [facility] Comment on above: Order Comment: Relea se to patient->Automatic MCHC 32.5 % Invalid Interpretation Code 31.3-34.0 [facility] Comment on above: Order Comment: Relea se to patient->Automatic MCV (RBC) [Entitic vol] 86.6 fL Invalid Interpretation Code 80.7-93.7 [facility] Comment on above: Order Comment: Relea se to patient->Automatic Monocyte \P\ 0.89 10E3/???L High 0.36-0.77 [facility] Comment on above: Order Comment: Relea se to patient->Automatic Monocytes/100 WBC (Bld) 7.3 % Invalid Interpretation Code 5.6-10.2 [facility] Comment on above: Order Comment: Relea se to patient->Automatic Neutrophil \P\ 7.46 10E3/???L High 2.43-6.42 [facility] Comment on above: Order Comment: Relea se to patient->Automatic Neutrophils/100 WBC (Bld) 61.1 % Invalid Interpretation Code 46.0-68.6 [facility] Comment on above: Order Comment: Relea se to patient->Automatic Nucleated RBC/100 WBC (Bld) [Ratio] 0.0 % Invalid Interpretation Code 0.0-0.0 [facility] Comment on above: Order Comment: Relea se to patient->Automatic Platelet mean volume (Bld) [Entitic vol] 10.1 fL Invalid Interpretation Code 9.6-11.9 [facility] Comment on above: Order Comment: Relea se to patient->Automatic Platelets 412 10E3/???L High 150-400 [facility] Comment on above: Order Comment: Relea se to patient->Automatic RBC 5.36 10E6/???L High 4.03-4.91 [facility] Comment on above: Order Comment: Relea se to patient->Automatic WBC 12.2 10E3/???L High 4.9-10.0 [facility] Comment on above: Order Comment: Relea se to patient->Automatic COMPREHENSIVE METABOLIC PANE Joni 09-07-2024 Albumin [Mass/Vol] 4.7 g/dL Invalid Interpretation Code 3.5-5.0 [facility] Comment on above: Order Comment: Relea se to patient->Automatic Result Comment: Veri fied By: [id number] ALP [Catalytic activity/Vol] 62 U/L Invalid Interpretation Code 35-104 [facility] Comment on above: Order Comment: Relea se to patient->Automatic Result Comment: Veri fied By: [id number] ALT [Catalytic activity/Vol] 12 U/L Invalid Interpretation Code <=34 [facility] Comment on above: Order Comment: Relea se to patient->Automatic Result Comment: Veri fied By: [id number] AST [Catalytic activity/Vol] 30 U/L Invalid Interpretation Code <=31 [facility] Comment on above: Order Comment: Relea se to patient->Automatic Result Comment: Veri fied By: [id number] BILI,TOTAL 0.7 mg/dL Invalid Interpretation Code <=1.0 [facility] Comment on above: Order Comment: Relea se to patient->Automatic Result Comment: Veri fied By: [id number] Calcium [Mass/Vol] 10.5 mg/dL Invalid Interpretation Code 7.6-11.0 [facility] Comment on above: Order Comment: Relea se to patient->Automatic Result Comment: Veri fied By: [id number] Chloride [Moles/Vol] 102 mmol/L Invalid Interpretation Code 96-108 [facility] Comment on above: Order Comment: Relea se to patient->Automatic Result Comment: Veri fied By: [id number] CO2 [Moles/Vol] 26.1 mmol/L Invalid Interpretation Code 22.0-29.0 [facility] Comment on above: Order Comment: Relea se to patient->Automatic Result Comment: Veri fied By: [id number] Creatinine [Mass/Vol] 0.79 mg/dL Invalid Interpretation Code 0.50-1.00 [facility] Comment on above: Order Comment: Relea se to patient->Automatic Result Comment: Veri fied By: [id number] GFR/1.73 sq M.predicted among non-blacks MDRD (S/P/Bld) [Vol rate/Area] mL/min/{1.73_m2} Invalid Interpretation Code >=60 [facility] Comment on above: Order Comment: Relea se to patient->Automatic Glucose [Mass/Vol] 98 mg/dL Invalid Interpretation Code 70-99 [facility] Comment on above: Order Comment: Relea se to patient->Automatic Result Comment: Ewat gonzalze for Diagnosis of Diabetes: Fasting Specimen (no caloric intake for at least 8 hours): <100 mg/dL Normal 100-125 mg/dL Increased risk for Diabetes >125 mg/dL Diagnostic for Diabetes Random Glucose (any time of day without regard to last meal): > or = 200 mg/dL plus Classic Symptoms of Diabetes Verified By: [id number] Potassium [Moles/Vol] 4.1 mmol/L Invalid Interpretation Code 3.3-5.1 [facility] Comment on above: Order Comment: Relea se to patient->Automatic Result Comment: Veri fied By: [id number] Protein [Mass/Vol] 8.0 g/dL Invalid Interpretation Code 5.9-8.4 [facility] Comment on above: Order Comment: Relea se to patient->Automatic Result Comment: Veri fied By: [id number] Sodium [Moles/Vol] 141 mmol/L Invalid Interpretation Code 133-145 [facility] Comment on above: Order Comment: Relea se to patient->Automatic Result Comment: Veri fied By: [id number] Urea nitrogen [Mass/Vol] 13 mg/dL Invalid Interpretation Code 4-19 [facility] Comment on above: Order Comment: Relea se to patient->Automatic Result Comment: Veri fied By: [id number] Complete Blood Count with Di fferentialOrdered By: Lindy Greer on 09-07-2024 Basophils (Bld) [#/Vol] 0.08 10*3/uL High [facility] Basophils/100 WBC (Bld) 0.7 % 0.3 - 0.9 % [facility] Eosinophils (Bld) [#/Vol] 0.17 10*3/uL [facility] Eosinophils/100 WBC (Bld) 1.4 % 0.6 - 3.8 % [facility] Erythrocyte distribution width (RBC) [Ratio] 12.4 % 11.9 - 14.8 % [facility] Hematocrit (Bld) [Volume fraction] 46.4 % High 35.5 - 44.6 % [facility] Hemoglobin (Bld) [Mass/Vol] 15.1 g/dL High 11.4 - 14.8 g/dL [facility] Immature granulocytes/100 WBC (Bld) 0.3 % 0.2 - 0.5 % [facility] Comment on above: Immature Granulocyte Percent includes promyelocytes, myelocytes,and metamyelocytes. IG% > 1.0 indicates a left shift is present. With automated differentials, bands are included in the neutrophil count and not in the Immature Granulocyte Percent. Interpretation and review of laboratory results Abnormal [facility] Lymphocytes (Bld) [#/Vol] 3.57 10*3/uL High [facility] Lymphocytes/100 WBC (Bld) 29.2 % 21.8 - 42.1 % [facility] MCH (RBC) [Entitic mass] 28.2 pg 25.7 - 31.2 pg [facility] MCHC (RBC) [Mass/Vol] 32.5 % 31.3 - 34.0 % [facility] MCV (RBC) [Entitic vol] 86.6 fL 80.7 - 93.7 fL [facility] Monocytes (Bld) [#/Vol] 0.89 10*3/uL High [facility] Monocytes/100 WBC (Bld) 7.3 % 5.6 - 10.2 % [facility] Neutrophils (Bld) [#/Vol] 7.46 10*3/uL High [facility] Neutrophils/100 WBC (Bld) 61.1 % 46.0 - 68.6 % [facility] Nucleated RBC/100 WBC (Bld) [Ratio] 0 % 0.0 - 0.0 % [facility] Platelet mean volume (Bld) [Entitic vol] 10.1 fL 9.6 - 11.9 fL [facility] Platelets (Bld) [#/Vol] 412 10*3/uL [facility] RBC (Bld) [#/Vol] 5.36 10*6/uL [facility] WBC (Bld) [#/Vol] 12.2 10*3/uL [facility] Comprehensive metabolic pane l (Lab Collect)on 09-07-2024 Albumin BCG dye [Mass/Vol] 4.7 g/dL 3.5 - 5.0 g/dL [facility] Comment on above: Verified By: [id number] ALP [Catalytic activity/Vol] 62 U/L 35 - 104 U/L [facility] Comment on above: Verified By: [id number] ALT With P-5'-P [Catalytic activity/Vol] 12 U/L BANNER - 34 U/L [facility] Comment on above: Verified By: [id number] AST With P-5'-P [Catalytic activity/Vol] 30 U/L BANNER - 31 U/L [facility] Comment on above: Verified By: [id number] Bilirubin [Mass/Vol] 0.7 mg/dL BANNER - 1.0 mg/dL [facility] Comment on above: Verified By: [id number] Calcium [Mass/Vol] 10.5 mg/dL 7.6 - 11. 0 mg/dL [facility] Comment on above: Verified By: [id number] Chloride [Moles/Vol] 102 mmol/L 96 - 10 8 mmol/L [facility] Comment on above: Verified By: [id number] Creatinine [Mass/Vol] 0.79 mg/dL 0.50 - 1.00 mg/dL [facility] Comment on above: Verified By: [id number] eGFR - PINF [facility] Glucose [Mass/Vol] 98 mg/dL 70 - 99 mg/dL [facility] Comment on above: Criteria for Diagnos is of Diabetes: Fasting Specimen (no caloric intake for at least 8 hours): <100 mg/dL Normal 100-125 mg/dL Increased risk for Diabetes >125 mg/dL Diagnostic for Diabetes Random Glucose (any time of day without regard to last meal): > or = 200 mg/dL plus Classic Symptoms of Diabetes Verified By: [id number] HCO3 (P) [Moles/Vol] 26.1 mmol/L 22.0 - 29.0 mmol/L [facility] Comment on above: Verified By: [id number] Potassium (BldA) [Moles/Vol] 4.1 mmol/L 3.3 - 5.1 mmol/L [facility] Comment on above: Verified By: [id number] Protein [Mass/Vol] 8 g/dL 5.9 - 8.4 g/dL [facility] Comment on above: Verified By: [id number] Sodium [Moles/Vol] 141 mmol/L 133 - 145 mmol/L [facility] Comment on above: Verified By: [id number] Urea nitrogen [Mass/Vol] 13 mg/dL 4 - 19 mg/dL [facility] Comment on above: Verified By: [id number] HEMOGLOBIN A1Con 09-07-2024 HbA1c (Bld) [Mass fraction] 5.5 % Invalid Interpretation Code <=5.6 [facility] Comment on above: Order Comment: Tory castro to patient->Automatic Result Comment: Refe rence Interval: <5.7% 5.7-6.4% Prediabetes > or = 6.5% Diabetes Targets for diabetes management: Type I <7.5% Type II <7.0% Hemoglobin A1c (Lab Collect) on 09-07-2024 HbA1c (Bld) [Mass fraction] 5.5 % NINF - 5.6 % [facility] Comment on above: Reference Interval: <5.7% 5.7-6.4% Prediabetes > or = 6.5% Diabetes Targets for diabetes management: Type I <7.5% Type II <7.0% Interpretation and review of laboratory results Normal [facility] IMMUNOGLOBULIN Aon Immunoglobulin A 270 mg/dL Invalid Interpretation Code 61-348 [facility] Comment on above: Order Comment: Tory castro to patient->Automatic Immunoglobulin AOrdered By: Background Lab on 09-07-2024 IgA [Mass/Vol] 270 mg/dL 61 - 348 mg/dL [facility] Interpretation and review of laboratory results Normal [facility] No Panel Informationon 09-07 Interpretation and review of laboratory results Normal [facility] PREALBUMINon 09-07-2024 Prealbumin [Mass/Vol] 23 mg/dL Invalid Interpretation Code 20-42 [facility] Comment on above: Order Comment: Tory castro to patient->Automatic Prealbuminon 09-07-2024 Interpretation and review of laboratory results Normal [facility] Prealbumin [Mass/Vol] 23 mg/dL 20 - 42 mg/dL [facility] Progress Noteon 09-07-2024 [employer] Authentication Interface Message Text Patient ID: Jocelyn Barajas is a 19 y.o. female. Her chief complaint(s) include: Follow Up (Asthma) Assessment 1. Mild persistent asthma without complication 2. Weight loss 3. Need for vaccination 4. Family history of type 2 diabetes mellitus Plan Jocelyn was seen today for follow up. Diagnoses [...] Visit and as needed. Check CXR at [facility] Normal chest xray Reviewed asthma plan [...] abdominal tenderness. Neurological: She is alert. Normal [facility] TRANSGLUTAMINASE IGAon 09-07 Transglutaminase IgA 1.69 U/mL Invalid Interpretation Code <=8.99 [facility] Comment on above: Order Comment: Inter pretation of Results: Negative: <9.0 AU/mL Equivocal: 9.0-16.0 AU/mL Positive: >16.0 AU/mL Method: The anti-tTG antibodies were determined using an FRANKY-based commercially available kit (Eu-tTG [employer], [facility]).Release to patient->Automatic TSH WITH REFLEX TO T4, FREEo n 09-07-2024 TSH 1.030 ???IU/mL Invalid Interpretation Code 0.500-4.300 [facility] Comment on above: Order Comment: Relea se to patient->Automatic TSH with Reflex to T4, Free (Lab Collect)on 09-07-2024 Interpretation and review of laboratory results Normal [facility] TSH Qn 1.03 m[IU]/L [facility] Chest PA and Lateralon 08-29 Chest PA and Lateral [facility] [address] [place], [place] [id number] Chest PA and Lateral MR#: [id number] Acct: [id number] Name: JOCELYN BARAJAS Rep #: [id number] : 2005 F 19 From: Jennie dutta MD PCP: Dr. Mitzy Fung MD Status: REG CLI Study: Chest PA and Lateral Date of Exam: 08/29/24 Exam# [id number] Ordering Dr: Lois Conde MD [id number] HISTORY: PNEUMONIA. TECHNIQUE: XR Chest 2 Views. COMPARISON: 2024. FINDINGS: CARDIOMEDIASTINAL BORDERS: Cardiac silhouette within normal limits in size. Mediastinal contour unremarkable. LUNGS: Radiographically clear. PLEURA: No pleural effusion or pneumothorax seen. OSSEOUS STRUCTURES: Unremarkable. RAD/Chest PA and Lateral IMPRESSION: No acute cardiopulmonary process identified. Electronically Signed: Jennie Garcia MD at 10:06 EST , CC: Dr. Mitzy Fung MD; Dr. Lois Conde MD Clay Carman: Signed [facility] Progress Noteon 08-29-2024 Pantograph Eng[employer]ver Authentication Interface Message Text Patient ID: Jocelyn Barajas is a 19 y.o. female. Her chief complaint(s) include: Sick Child (Cough/congestion) Assessment 1. Community acquired pneumonia of left lung, unspecified part of lung 2. Mild persistent asthma without complication Plan Jocelyn was seen today for sick child. Diagnoses [...] no rhonchi. Neurological: She is alert. Normal [facility] CNOVon 08-27-2024 CNOV Office Visit (UCWSTR) JOCELYN BARAJAS ([id number]) 5 F Date Time Provider Department 08/27/24 11:45 AM OTILIO ENRIQUEZ [facility] During your visit today, we recorded the following information about you: Temperature Pulse Respiration Blood pressure 98.4 degrees 106/minute 20/minute 110/78 Weight 57.1 kg Otilio Enriquez, ALEX.SENIOR IT PROJECT MANAGER 08/27/2024 12:30 PM Addendum ASSESSMENT/PLAN: 1. Sore [...] analgesia. - Discussed expected course of illness Otilio Enriquez APRN.SENIOR IT PROJECT MANAGER Previous hospitalization care team: Attending Provider: Ernestina Lanza MD (attending for admission) Consulting: Rosendo Richey MD (ENT) Consulting: Kimberly Uriostegui MD (infectious disease) Otilio Enriquez APRN.SENIOR IT PROJECT MANAGER 08/27/2024 12:30 PM Signed Subjective Ear Pain Associated symptoms include congestion, coughing, headaches and a sore throat. Pertinent negatives include no chest pain, chills, fever, myalgias, nausea or vomiting. Jocelyn Barajas is a 19 year old female [...] Passive e (more content not included)... Normal [facility] COVID AND INFLUENZA A/B AND RSV PCR, ROUTINEon 08-27-2024 SARS-CoV-2 (COVID-19) RNA JAIRON+probe Ql (Unsp spec) SARS-COV-2 (AGENT OF COVID-19) RNA: Not detected INFLUENZA A RNA: Not detected INFLUENZA B RNA: Not detected RESPIRATORY SYNCYTIAL VIRUS (RSV) RNA: Not detected Normal [facility] Comment on above: Performed By: #### C VFLRS #### [facility] CLIA [id number] STATES OF [place] STREP A MOLECULAR (POC)on Procedural Control Valid [facility] Strep A (POCT) Negative Negative [facility] Urine Cultureon 06-17-2024 [facility] Escherichia coli [place] Count 50,000-80,000 Escherichia coli: REACTION Ampicillin Islt [...] TMP SMX Islt RYLAND <=20 S Normal [facility] Comment on above: Performed By: #### L 400.0001 #### [facility] [address] [place] [address], [address] DSon 04-26-2024 [facility] HNO ID: [id number] Author: ERNESTINA LANZA MD Service: Hospital Medicine Author Type: Physician Type: Discharge Summary Filed: 04/26/2024 08:34 Note Text: DISCHARGE SUMMARY PATIENT NAME: Jcoelyn Barajas ADMISSION DATE: 04/24/2024 DISCHARGE DATE: 04/26/2024 [...] PCOS, asthma, URIEL. Patient was transferred from [facility] hospital today for concerns of 2 [...] sore throat associated with dysphagia At the [place] ED CT neck with IV contrast showing [...] Team: Attending Provider: Ernestina Lanza MD Consulting: Rosendo Richey MD Consulting: Kimberly Uriostegui MD Attending: MR ZAC GARRIDO Patient [...] mg tablet Commo (more content not included)... [facility] CONSULTon 04-25-2024 CONSULT HNO ID: [id number] Author: KIMBERLY URIOSTEGUI MD Service: Infectious Disease Author Type: [...] note or shared electronic medical record. HPI: Jocelyn Barajas who is a 19 year old female recent dental work with extractions of the right side roughly 10 days ago and then developed increased swelling and pain of the right side of her tonsils complain and difficult taking p.o. intake. No documented fevers. Patient was on oral amoxicillin by her dentist over the weekend well. Was given an oral cephalosporin by pulpwood cutter late last week. States that feeling better [...] COVID-19 original vaccine, age 12+ yr, monovalent ([employer] - PURPLE TOP) 04/30/2021 05/22/2021 Haemophilus influenzae b (HbOC) vaccine, 4-dose series (HIBTITER) 06/08/2006 diphtheria tetanus pertussis (DTaP) vaccine, pediatric (INFANRIX) 11/26/2006 measles mumps rubella (MMR) vaccine (M-M-R II, PRIORIX) 06/08/2006 pneumococcal (PCV7) vaccine, 7 valent (PREVNAR 7) 06/08/2006 11/26/2006 varicella (RAY) vaccine (VARIVAX) 11/26/2006 Current Facility-Administere d Medications Medication Dose Route Frequency melatonin 3 [...] 8* AST 19 ALKPHOS 72 TBILI 0.5 Impression/Recommend ations Jocelyn Barajas is a 19 year old female right peritonsillar infection clinically improving on parenteral clindamycin. Continue current management with parenteral clindamycin Please feel free to call or page us with concerns or questions. Thank you for allowing us to partake in the care of your patient. SIGNATURE: Kimberly Uriostegui MD PATIENT NAME: Jocelyn Barajas DATE: April 25, 2024 TIME: 10:44 AM Normal [facility] Basic Metabolic Panelon 09-0 Anion gap [Moles/Vol] 7 mmol/L Normal 4-14 [facility] ([place]) Comment on above: Performed By: #### B MP #### [facility] [address] [place] [address] Calcium [Mass/Vol] 9.1 mg/dL Normal 8.5-10.5 [facility] ([place]) Comment on above: Performed By: #### B MP #### [facility] [address] [place] [address] Chloride [Moles/Vol] 106 mmol/L Normal 98-107 [facility] ([place]) Comment on above: Performed By: #### B MP #### [facility] [address] [place] [address] CO2 [Moles/Vol] 25 mmol/L Normal 21-31 [facility] ([place] Comment on above: Performed By: #### B MP #### [facility] [address] [place] [address] Creatinine [Moles/Vol] 0.61 mg/dL Normal 0.60-1.20 [facility] ([place]) Comment on above: Performed By: #### B MP #### [facility] [address] [place] [address] Creatinine and Glomerular filtration rate.predicted panel (S/P/Bld) 153 mL/min Normal >60 [facility] ([place] Comment on above: Performed By: #### B MP #### [facility] [address] [place] [address] GFR/1.73 sq M.predicted among non-blacks MDRD (S/P/Bld) [Vol rate/Area] 126 mL/min/{1.73_m2} Normal >60 [facility] ([place]) Comment on above: Performed By: #### B MP #### [facility] [address] [place] [address] Glucose [Mass/Vol] 91 mg/dL Normal 70-99 [facility] ([place] Comment on above: Performed By: #### B MP #### [facility] [address] [place] [address] Potassium [Moles/Vol] 3.7 mmol/L Normal 3.6-5.0 [facility] ([place] Comment on above: Performed By: #### B MP #### [facility] [address] [place] [address] Sodium [Moles/Vol] 138 mmol/L Normal 135-145 [facility] ([place] Comment on above: Performed By: #### B MP #### [facility] [address] [place] [address] Urea nitrogen [Mass/Vol] 12 mg/dL Normal 7-25 [facility] ([place] Comment on above: Performed By: #### B MP #### [facility] [address] [place] [address] CBC W Auto Differential pane l (Bld)on 04-24-2024 Basophils (Bld) [#/Vol] 0.1 10*3/uL Normal 0.00-0.20 [facility] ([place] Comment on above: Performed By: #### 5 7021-8 #### [address] [address] Basophils/100 WBC (Bld) 0.8 % Normal 0.0-1.5 [facility] ([place]) Comment on above: Performed By: #### 5 7021-8 #### [address] [address] Eosinophils (Bld) [#/Vol] 0.0 10*3/uL Normal 0.00-0.33 [facility] ([place] Comment on above: Performed By: #### 5 7021-8 #### [address] [address] Eosinophils/100 WBC (Bld) 0.3 % Normal 0.0-3.0 [facility] ([place] Comment on above: Performed By: #### 5 7021-8 #### [facility] [address] [place] [address] Erythrocyte distribution width (RBC) [Ratio] 11.9 % Normal 10.9-14.3 [facility] ([place] Comment on above: Performed By: #### 5 7021-8 #### [address] [address] Hematocrit (Bld) [Volume fraction] 31.8 % Low 36.0-44.0 [facility] ([place] Comment on above: Performed By: #### 5 7021-8 #### [address] [address] Hemoglobin (Bld) [Mass/Vol] 10.8 g/dL Low 12.0-15.0 [facility] ([place] Comment on above: Performed By: #### 5 7021-8 #### [address] [address] Lymphocytes Auto (Unsp spec) [#/Vol] 1.9 10*3/uL Normal 1.10-4.80 [facility] ([place] Comment on above: Performed By: #### 5 7021-8 #### [address] [address] Lymphocytes/100 WBC (Bld) 13.2 % Low 24.0-44.0 [facility] ([place] Comment on above: Performed By: #### 5 7021-8 #### [address] [address] MCH (RBC) [Entitic mass] 29.1 pg Normal 28.0-34.0 [facility] ([place] Comment on above: Performed By: #### 5 7021-8 #### [facility] [address] [place] [address] MCHC (RBC) [Mass/Vol] 34.1 g/dL Normal 33.0-37.0 [facility] ([place] Comment on above: Performed By: #### 5 7021-8 #### [facility] [address] [place] [address] MCV (RBC) [Entitic vol] 85.2 fL Normal 80.0-100.0 [facility] ([place] Comment on above: Performed By: #### 5 7021-8 #### [facility] [address] [place] [address] Monocytes (Bld) [#/Vol] 1.2 10*3/uL High 0.20-0.70 [facility] ([place] Comment on above: Performed By: #### 5 7021-8 #### [facility] [address] [place] [address] Monocytes/100 WBC (Bld) 8.2 % Normal 3.4-9.0 [facility] ([place] Comment on above: Performed By: #### 5 7021-8 #### [facility] [address] [place] [address] Neutrophils (Bld) [#/Vol] 11.2 10*3/uL High 1.83-8.70 [facility] ([place] Comment on above: Performed By: #### 5 7021-8 #### [facility] [address] [place] [address] Neutrophils/100 WBC (Bld) 77.5 % High 40.0-74.0 [facility] [place] Comment on above: Performed By: #### 5 7021-8 #### [facility] [address] [place] [address] Platelet mean volume (Bld) [Entitic vol] 8.0 fL Normal 7.4-10.4 [facility] [place] Comment on above: Performed By: #### 5 7021-8 #### [facility] [address] [place] [address] Platelets (Bld) [#/Vol] 350 10*3/uL Normal 150-450 [facility] [place] Comment on above: Performed By: #### 5 7021-8 #### [facility] [address] [place] [address] RBC (Bld) [#/Vol] 3.73 10*6/uL Low 4.00-4.90 [facility] [place] Comment on above: Performed By: #### 5 7021-8 #### [facility] [address] [place] [address] WBC (Bld) [#/Vol] 14.4 10*3/uL High 4.5-11.0 [facility] [place] Comment on above: Performed By: #### 5 7021-8 #### [address] [address] CBC panel Auto (Bld)on 04-24 Erythrocyte distribution width (RBC) [Ratio] 11.3 % Low 11.5-15.0 [facility] Comment on above: Order Comment: Speci men Type: BLOOD SPECIMEN Ordering Facility: [facility] Address: [address] [place] [address] Performed By: #### 5 8410-2 #### [facility] CLIA [id number] [address] [place] [address] [place] Hematocrit (Bld) [Volume fraction] 36.0 % Normal 36.0-46.0 [facility] Comment on above: Order Comment: Speci men Type: BLOOD SPECIMEN Ordering Facility: [facility] Address: [address] [place] [address] Performed By: #### 5 8410-2 #### [facility] CLIA [id number] [address] [place] [address] [place] Hemoglobin (Bld) [Mass/Vol] 12.2 g/dL Normal 11.5-15.5 [facility] Comment on above: Order Comment: Speci men Type: BLOOD SPECIMEN Ordering Facility: [facility] Address: [address] [place] [address] Performed By: #### 5 8410-2 #### [facility] CLIA [id number] [address] [place] [address] [place] MCH (RBC) [Entitic mass] 29.3 pg Normal 26.0-34.0 [facility] Comment on above: Order Comment: Speci men Type: BLOOD SPECIMEN Ordering Facility: [facility] Address: [address] [place] [address] Performed By: #### 5 8410-2 #### [facility] CLIA [id number] [address] [place] [address] [place] MCHC (RBC) [Mass/Vol] 33.9 g/dL Normal 30.5-36.0 [facility] Comment on above: Order Comment: Speci men Type: BLOOD SPECIMEN Ordering Facility: [facility] Address: [address] [place] [address] Performed By: #### 5 8410-2 #### [facility] CLIA [id number] [address] [place] [address] [place] MCV (RBC) [Entitic vol] 86.3 fL Normal 80.0-100.0 [facility] Comment on above: Order Comment: Speci men Type: BLOOD SPECIMEN Ordering Facility: [facility] Address: [address] [place] [address] Performed By: #### 5 8410-2 #### [facility] CLIA [id number] [address] [place] [address] [place] Nucleated RBC (Bld) [#/Vol] 10*3/uL Normal <0.01 [facility] Comment on above: Order Comment: Speci men Type: BLOOD SPECIMEN Ordering Facility: [facility] Address: [address] [place] [address] Performed By: #### 5 8410-2 #### [facility] CLIA [id number] [address] [place], [place] [address] [place] Platelet mean volume (Bld) [Entitic vol] 9.7 fL Normal 9.0-12.7 [facility] Comment on above: Order Comment: Speci men Type: BLOOD SPECIMEN Ordering Facility: [facility] Address: [address] [place] [address] Performed By: #### 5 8410-2 #### [facility] CLIA [id number] [address] [place] [address] [place] Platelets (Bld) [#/Vol] 391 10*3/uL Normal 150-400 [facility] Comment on above: Order Comment: Speci men Type: BLOOD SPECIMEN Ordering Facility: [facility] Address: [address] [place] [address] Performed By: #### 5 8410-2 #### [facility] CLIA [id number] [address] [place] [address] [place] RBC (Bld) [#/Vol] 4.17 10*6/uL Normal 3.90-5.20 [facility] Comment on above: Order Comment: Speci men Type: BLOOD SPECIMEN Ordering Facility: [facility] Address: [address] [place] [address] Performed By: #### 5 8410-2 #### [facility] CLIA [id number] [address] [place], [place] [address] [place] WBC (Bld) [#/Vol] 13.20 10*3/uL High 3.70-11.00 [facility] Comment on above: Order Comment: Speci men Type: BLOOD SPECIMEN Ordering Facility: [facility] Address: [address] [place] [address] Performed By: #### 5 8410-2 #### [facility] CLIA [id number] [address] [place], [place] [address] [facility] [place] CONSULTon 04-24-2024 CONSULT HNO ID: [id number] Author: ROSENDO RICHEY MD Service: Otolaryngology Author Type: Physician Type: Consults Filed: 04/24/2024 14:50 Note Text: 04/24/2024 This 19-year-old patient was transferred from [facility] for management of a right peritonsillar abscess. She complains of sore throat for the last 3 days following dental extraction procedures on the right side of her mouth. She does have a history of frequent tonsil stones but no frequent strep positive infections. She was evaluated by her local ENT in [place] who told her she was not a candidate for tonsillectomy due to the infrequency of her strep positive infections. She was given some oral antibiotics at [facility] without improvement. Her evaluation here shows that she is afebrile, white blood cell count 13,200. There is a CT scan that was transferred from [place] which shows asymmetric swelling of the right [...] assess the status of that extraction site. Rosendo Richey MD [facility] CT soft tissue neck wo/w con on 04-24-2024 CT soft tissue neck wo/w con [facility] [address] [place] [address] CT Scan Report Signed Patient: JOCELYN BARAJAS MR#: [id number] : 2005 Acct:[id number] Age/Sex: 19 / F Admit Date: 04/23/24 Loc: ER Attending Dr: Ordering Physician: Natanael Hyde MD Date of Service: 04/24/24 Procedure(s): CT soft tissue neck wo/w con Accession Number(s): [id number] cc: Natanael Hyde MD INDICATION: Right tonsillar [...] DD/ 8 Signed By: Ara Burton 04/24/24348 Clay Carman: DELGADO 04/24/24348 Normal [facility] ([place]) Comprehensive metabolic 2000 panelon 04-24-2024 Albumin [Mass/Vol] 4.0 g/dL Normal 3.2-5.0 [facility] Comment on above: Order Comment: Ryan spain Type: BLOOD SPECIMEN Ordering Facility: [facility] Address: [address] [place] [address] Performed By: #### 2 4323-8, 70609-8, 2777-1 #### [facility] CLIA [id number] [address] [place] [address] [place] ALP [Catalytic activity/Vol] 72 U/L Normal 45-117 [facility] Comment on above: Order Comment: Ryan spain Type: BLOOD SPECIMEN Ordering Facility: [facility] Address: [address] [place] [address] Performed By: #### 2 4323-8, , 2776-08 #### [facility] CLIA [id number] [address] [place], [place] [address] [place] ALT [Catalytic activity/Vol] 8 U/L Low 13-61 [facility] Comment on above: Order Comment: Ryan spain Type: BLOOD SPECIMEN Ordering Facility: [facility] Address: [address] [place] [address] Result Comment: Resu lts may be falsely depressed after the administration of Sulfasalazine and/or Sulfapyridine. Performed By: #### 2 4323-8, , 2776-08 #### [facility] CLIA [id number] [address] [place] [address] [place] Anion gap [Moles/Vol] 9 mmol/L Normal 5-16 [facility] Comment on above: Order Comment: Ryan spain Type: BLOOD SPECIMEN Ordering Facility: [facility] Address: [address] [place] [address] Performed By: #### 2 4323-8, , 2776-08 #### [facility] CLIA [id number] [address] [place], [place] [address] [place] AST [Catalytic activity/Vol] 19 U/L Normal 8-34 [facility] Comment on above: Order Comment: Ryan spain Type: BLOOD SPECIMEN Ordering Facility: [facility] Address: [address] [place] [address] Result Comment: Resu lts may be falsely depressed after the administration of Sulfasalazine and/or Sulfapyridine. Performed By: #### 2 4323-8, , 2776-08 #### [facility] CLIA [id number] [address] [place], [place] [address] [place] Bilirubin [Mass/Vol] 0.5 mg/dL Normal 0.2-1.0 [facility] Comment on above: Order Comment: Speci men Type: BLOOD SPECIMEN Ordering Facility: [facility] Address: [address] [place], [place] [address] Performed By: #### 2 4323-8, , 2776-08 #### [facility] CLIA [id number] [address] [place], [place] [address] [place] Calcium [Mass/Vol] 10.3 mg/dL Normal 8.5-10.5 [facility] Comment on above: Order Comment: Speci men Type: BLOOD SPECIMEN Ordering Facility: [facility] Address: [address] [place] [address] Performed By: #### 2 4323-8, , 2776-08 #### [facility] CLIA [id number] [address] [place] [address] [place] Chloride [Moles/Vol] 108 mmol/L High 98-107 [facility] Comment on above: Order Comment: Speci men Type: BLOOD SPECIMEN Ordering Facility: [facility] Address: [address] [place] [address] Performed By: #### 2 4323-8, , 2776-08 #### [facility] CLIA [id number] [address] [place] [address] [place] CO2 [Moles/Vol] 23 mmol/L Normal 21-32 [facility] Comment on above: Order Comment: Speci men Type: BLOOD SPECIMEN Ordering Facility: [facility] Address: [address] [place] [address] Performed By: #### 2 4323-8, , 2776-08 #### [facility] CLIA [id number] [address] [place], [place] [address] [place] Creatinine [Mass/Vol] 0.61 mg/dL Normal 0.51-0.95 [facility] Comment on above: Order Comment: Speci men Type: BLOOD SPECIMEN Ordering Facility: [facility] Address: [address] [place] [address] Result Comment: Ernestine ents receiving either N-Acetylcysteine (NAC) or Metamizole prior to venipuncture, may have falsely depressed results. Performed By: #### 2 4323-8, 20595-7, 2777-1 #### [facility] CLIA [id number] [address] [place] [address] [place] Creatinine and Glomerular filtration rate.predicted panel (S/P/Bld) 132 mL/min/1.73m??? Normal >=60 [facility] Comment on above: Order Comment: Ryan spain Type: BLOOD SPECIMEN Ordering Facility: [facility] Address: [address] [place] [address] Result Comment: Meeta mated Glomerular Filtration Rate [...] actual GFR. Performed By: #### 2 4323-8, 69078-9, 2777-1 #### [facility] CLIA [id number] [address] [place] [address] [place] Glucose [Mass/Vol] 120 mg/dL High 70-100 [facility] Comment on above: Order Comment: Ryan spain Type: BLOOD SPECIMEN Ordering Facility: [facility] Address: [address] [place] [address] Result Comment: The [place] [employer] (ADA) provides guidance for cutoff [...] Standards of Medical Care in Diabetes 2016, [place] [employer]. Diabetes Care. 2016.39(Suppl 1). Results may be falsely elevated after the administration of Sulfapyridine. Results may be falsely depressed after the administration of Sulfasalazine. Performed By: #### 2 4323-8, , 2776-08 #### [facility] CLIA [id number] [address] [place], [place] [address] [place] Potassium [Moles/Vol] 4.1 mmol/L Normal 3.5-5.1 [facility] Comment on above: Order Comment: Speci men Type: BLOOD SPECIMEN Ordering Facility: [facility] Address: [address] [place] [address] Performed By: #### 2 4323-8, , 2776-08 #### [facility] CLIA [id number] [address] [place] [address] [place] Protein [Mass/Vol] 8.1 g/dL Normal 6.0-8.5 [facility] Comment on above: Order Comment: Speci men Type: BLOOD SPECIMEN Ordering Facility: [facility] Address: [address] [place] [address] Performed By: #### 2 4323-8, , 2776-08 #### [facility] CLIA [id number] [address] [place] [address] [place] Sodium [Moles/Vol] 140 mmol/L Normal 136-145 [facility] Comment on above: Order Comment: Speci men Type: BLOOD SPECIMEN Ordering Facility: [facility] Address: [address] [place] [address] Performed By: #### 2 4323-8, , 2776-08 #### [facility] CLIA [id number] [address] [place], [place] [address] [place] Urea nitrogen [Mass/Vol] 15 mg/dL Normal 7-26 [facility] Comment on above: Order Comment: Speci men Type: BLOOD SPECIMEN Ordering Facility: [facility] Address: [address] [place] [address] Performed By: #### 2 4323-8, , 2776-08 #### [facility] CLIA [id number] [address] [place] [address] [place] HISTORY PHYSICALon HISTORY PHYSICAL HNO ID: [id number] Author: GUSTAVO CHAN MD Service: Hospital Medicine Author Type: Physician Type: H&P Filed: 04/24/2024 10:36 Note Text: HISTORY AND PHYSICAL EXAMINATION SERVICE DATE: 04/24/2024 SERVICE TIME: 9:46 PM PRIMARY CARE PHYSICIAN: Mitzy Fung MD, MD CHIEF COMPLAINT: Sore throat/dysphagia HPI: This is a 19 year old female with a past medical history of ADHD, PCOS, asthma, URIEL. Patient was transferred from [facility] today for concerns of 2 cm right peritonsillar abscess. Of note patient recently had a dental extraction at [facility] approximately 1 week ago due to concerns for infection was given p.o. cefdinir and Keflex however patient started having dysphagia associated with sore throat and went to [place] ED. At [place] ED patient was given IV clindamycin and IV Decadron in the ED. Due to [place] not having ENT onsite patient was transferred [...] Routine labs (more content not included)... Normal [facility] Magnesium [facility]-ncon 04-24 Magnesium [Mass/Vol] 2.2 mg/dL Normal 1.6-2.6 [facility] Comment on above: Order Comment: Ryan spain Type: BLOOD SPECIMEN Ordering Facility: [facility] Address: [address] [place] [address] Performed By: #### 2 4323-8, 15752-9, 2777-1 #### [facility] CLIA [id number] [address] [place] [address] [place] Phosphate SerPl-mCncon 04-24 Phosphate [Mass/Vol] 3.8 mg/dL Normal 2.5-4.9 [facility] Comment on above: Order Comment: Ryan spain Type: BLOOD SPECIMEN Ordering Facility: [facility] Address: [address] [place] [id number] Result Comment: Elev ated m-protein (paraprotein) levels in the serum may be exhibited in patients with monoclonal gammopathies, causing falsely elevated inorganic phosphorus results. Performed By: #### 2 4323-8, 15521-0, 2777-1 #### [facility] CLIA [id number] [address] [place] [address] [place] UA DIP, URINE (POC)on 2023 BILIRUBIN UA (POCT) Negative Negative [facility] CLARITY UA (POCT) Slightly Cloudy Cl [facility] COLOR UA (POCT) Yellow [facility] GLUCOSE UA (POCT) Negative Negative mg/dL [facility] Hemoglobin Ql (U) Large Abnormal Negative [facility] Interpretation and review of laboratory results Abnormal [facility] KETONE UA (POCT) Negative Negative mg/dL [place] LEUKOCYTES UA (POCT) Moderate Abnormal Negative [place] NITRITE UA (POCT) Negative Negative [facility] PH UA (POCT) 7.0 4.5 - 8.0 [facility] Protein Ql (U) 30 mg/dL Abnormal Negative [facility] SPECIFIC GRAVITY UA (POCT) 1.020 1.005 - 1.030 [facility] UROBILINOGEN UA (POCT) 0.2 Normal E.U./d L [facility] Location:[address], [place], [place], [id number] [place] [address] POINT OF CARE [facility] Laboratory - Chemistry and C hemistry - challengeOrdered By: Leny Ruano on 12-24-2023 HCG ( test) Ql (U) Negative [facility] Comment on above: Very dilute urine sp ecimens, as indicated by a low specificgravity, may not contain security systems sales representative levels of hCG. If is still suspected, a first morning urinespecimen should be collected 48 hours later and tested. Absolute lymphocyte countOrd ered By: Alexis Farfan on 11-14-2023 Lymphocytes Auto (Unsp spec) [#/Vol] 2.23 10*3/uL 0.83-4.51 [facility] Automated lymphocyte count a s percentage of total leukocytesOrdered By: Alexis Farfan on 11-14-2023 Lymphocytes/100 WBC Auto (Unsp spec) 27.1 % 25-45 [facility] Basophil percentageOrdered B y: Alexis Farfan on 11-14-2023 Basophils/100 WBC (Bld) 0.7 % 0-1 [facility] Chloride [Moles/Vol] 110 mmol/L 98-107 [facility] Eosinophils/100 WBC (Bld) 1.7 % 0-3 [facility] Glucose [Mass/Vol] 82 mg/dL 74-106 [facility] Hemoglobin (Bld) [Mass/Vol] 12.3 g/dL 12.0-15.0 [facility] Monocytes/100 WBC (Bld) 5.1 % 3-6 [facility] Neutrophils (Bld) [#/Vol] 5.4 10*3/uL 2.0-7.7 [facility] Neutrophils/100 WBC (Bld) 65.2 % 34-64 [facility] Potassium [Moles/Vol] 3.9 mmol/L 3.5-5.1 [facility] Sodium [Moles/Vol] 140 mmol/L 136-145 [facility] WBC (Bld) [#/Vol] 8.2 10*3/uL 4.5-13.0 [facility] Basophil percentageOrdered B y: Lexie Heredia on 11-14-2023 Basophil percentage 25-50 SEEN /hpf 0-5 [facility] Bilirubin Test strip Ql (U)O rdered By: Lexie Heredia on 11-14-2023 Bilirubin Ql (U) Negative Negative [facility] Culture, urineOrdered By: Daryl Farfan on 11-14-2023 Bacteria identified Cx Nom (U) Presumptive E. coli [facility] Determination of erythrocyte mean corpuscular volume (MCV)Ordered By: Alexis Farfan on 11-14-2023 MCV (RBC) [Entitic vol] 87.9 fL 78-96 [facility] Erythrocyte distribution wid th ratioOrdered By: Alexis Farfan on 11-14-2023 Erythrocyte distribution width (RBC) [Ratio] 12.0 % 11.6-14.6 [facility] Erythrocyte distribution wid th standard deviationOrdered By: Alexis Farfan on 11-14-2023 Erythrocyte distribution width (RBC) [Entitic vol] 39.1 fL 35.1-43.9 [facility] Hematocrit Auto (Bld) [Volum e fraction]Ordered By: Alexis Farfan on 11-14-2023 Hematocrit (Bld) [Volume fraction] 38.6 % 37-46 [facility] Immature granulocytes/100 WB C Auto (Bld)Ordered By: Alexis Farfan on 11-14-2023 Immature granulocytes/100 WBC (Bld) 0.200 % 0.0-0.9 [facility] Comment on above: IG% - Immature Granu locytes (promyelocytes, myelocytes and metamyelocytes) > 1% indicates that a LEFT SHIFT is Present. Ketones Test strip Ql (U)Ord ered By: Lexie Heredia on 11-14-2023 Ketones Ql (U) 5 mg/dl Negative [facility] Laboratory - Chemistry and C hemistry - challengeOrdered By: Alexis Farfan on 11-14-2023 CO2 [Moles/Vol] 26.0 mmol/L 21.0-32.0 [facility] Urea nitrogen/Creatinine [Mass ratio] 15.0 mg/mg 10-20 [facility] Laboratory - Hematology and Cell countsOrdered By: Alexis Farfan on 11-14-2023 MCH (RBC) [Entitic mass] 28.0 pg 25.0-35.0 [facility] MCHC (RBC) [Mass/Vol] 31.9 g/dL 32-36 [facility] Nucleated RBC/100 WBC (Bld) [Ratio] 0 % 0-5 [facility] Platelet mean volume (Bld) [Entitic vol] 9.8 fL 6.2-12.0 [facility] Platelets (Bld) [#/Vol] 298 10*3/uL 150-450 [facility] Mucus LM Ql (Urine sed)Order ed By: Lexie Heredia on 11-14-2023 Mucus Ql (Urine sed) 0 SEEN /hpf [facility] Nitrite Test strip Ql (U)Ord ered By: Lexie Heredia on 11-14-2023 Nitrite Ql (U) Positive Negative [facility] No Panel InformationOrdered By: Alexis Farfan on 11-14-2023 Estimated Creatinine Clearance Calc 102.62 ml/min [facility] Estimated GFR (MDRD) Amer 120 mL/min >60 [facility] Comment on above: GFR Calc Estimated GFR (MDRD) Non-Af Amer 99 mL/min >60 [facility] Comment on above: Non- GFR Calc No Panel InformationOrdered By: Lexie Heredia on 11-14-2023 Urine RBC 0-5 SEEN /hpf 0-5 [facility] Protein Test strip Ql (U)Ord ered By: Lexie Heredia on 11-14-2023 Protein Ql (U) 30 mg/dl Negative [facility] RBC Auto (Bld) [#/Vol]Ordere d By: Alexis Farfan on 11-14-2023 RBC (Bld) [#/Vol] 4.39 10*6/uL 4.1-4.8 [facility] Serum or plasma calcium vel urement (mass/volume)Ordered By: Alexis Farfan on 11-14-2023 Calcium [Mass/Vol] 8.8 mg/dL 8.5-10.1 [facility] Serum or plasma choriogonado tropin detectionOrdered By: Alexis Farfan on 11-14-2023 HCG ( test) Ql Negative [facility] Serum or plasma creatinine m easurement (mass/volume)Ordered By: Alexis Farfan on 11-14-2023 Creatinine [Mass/Vol] 0.80 mg/dL 0.55-1.02 [facility] Comment on above: The validity of the calculated GFR & GFRAA in patients over 70 years has not been determined. Clinical correlation is essential. Serum or plasma urea nitroge n measurement (mass/volume)Ordered By: Alexis Farfan on 11-14-2023 Urea nitrogen [Mass/Vol] 12 mg/dL 7-18 [facility] Squamous epithelial cells de tection in urine sediment by light microscopyOrdered By: Lexie Heredia on 11-14-2023 Epithelial cells.squamous LM Ql (Urine sed) 0-5 SEEN /hpf 5-10 [facility] Thin prep Papanicolaou smear with manual screeningOrdered By: Alexis Farfan on 11-14-2023 Thin prep Papanicolaou smear with manual screening 4 5-15 [facility] UA DIP, URINE (POC)on 2023 BILIRUBIN UA (POCT) Negative Negative [facility] CLARITY UA (POCT) Slightly Cloudy Cl [facility] COLOR UA (POCT) Yellow [facility] GLUCOSE UA (POCT) Negative Negative mg/dL [facility] Hemoglobin Ql (U) Trace-intact Abnormal Negative [facility] KETONE UA (POCT) Trace Negative mg/dL [place] LEUKOCYTES UA (POCT) Small Abnormal Negative [place] NITRITE UA (POCT) Positive Abnormal Negative [facility] PH UA (POCT) 6.0 4.5 - 8.0 [facility] Protein Ql (U) 30 mg/dL Abnormal Negative mg/dL [facility] SPECIFIC GRAVITY UA (POCT) 1.025 1.005 - 1.030 [facility] UROBILINOGEN UA (POCT) 1.0 E.U./dL Normal E.U./ dL [facility] Urine blood detectionOrdered By: Lexie Heredia on 11-14-2023 RBC Ql (U) 25 /ul Negative [facility] Urine clarityOrdered By: Alexa Heredia on 11-14-2023 Clarity (U) Sl. Cloudy Clear [facility] Urine color determinationOrd ered By: Lexie Heredia on 11-14-2023 Color (U) Yellow Yellow [facility] Urine glucose detectionOrder ed By: Lexie Heredia on 11-14-2023 Glucose Ql (U) Normal mg/dl Normal [facility] Urine leukocyte esterase det ection by dipstickOrdered By: Lexie Heredia on 11-14-2023 Leukocyte esterase Test strip Ql (U) 500 /ul Negative [facility] Urine pHOrdered By: Lexie watts on 11-14-2023 pH (U) 6.5 [pH] 5.0 - 8.0 [facility] Urine sediment bacteria coun t by microscopy (number/high power field)Ordered By: Lexie Heredia on 11-14-2023 Bacteria LM.HPF (Urine sed) [#/Area] 2 /[HPF] None Seen [facility] Urine specific gravity measu rementOrdered By: Lexie Heredia on 11-14-2023 Specific gravity (U) [Rel density] 1.015 1.002-1.030 [facility] Urine urobilinogen measureme ntOrdered By: Lxeie Heredia on 11-14-2023 Urobilinogen Ql (U) 1 mg/dl Normal [facility] UA DIP, URINE (POC)on 2023 BILIRUBIN UA (POCT) Negative Negative [facility] CLARITY UA (POCT) Clear [facility] COLOR UA (POCT) Dark yellow [facility] GLUCOSE UA (POCT) Negative Negative mg/dL [facility] Hemoglobin Ql (U) Moderate Abnormal Negative [facility] KETONE UA (POCT) Negative Negative mg/dL [facility] LEUKOCYTES UA (POCT) Trace Abnormal Negative [facility] NITRITE UA (POCT) Negative Negative [facility] PH UA (POCT) 5.5 4.5 - 8.0 [facility] Protein Ql (U) 100 mg/dL Abnormal Negative mg/dL [facility] SPECIFIC GRAVITY UA (POCT) >=1.030 1.005 - 1.030 [facility] UROBILINOGEN UA (POCT) 0.2 E.U./dL Normal E.U./ dL [facility] UA DIP, URINE (POC)on 2022 BILIRUBIN UA (POCT) Negative Negative [facility] CLARITY UA (POCT) Clear [facility] COLOR UA (POCT) Yellow [facility] GLUCOSE UA (POCT) Negative Negative mg/dL [facility] Hemoglobin Ql (U) Negative Negative [facility] KETONE UA (POCT) Negative Negative mg/dL [facility] LEUKOCYTES UA (POCT) Trace Abnormal Negative [facility] NITRITE UA (POCT) Negative Negative [facility] PH UA (POCT) 6.5 4.5 - 8.0 [facility] Protein Ql (U) Negative Negative mg/dL [facility] SPECIFIC GRAVITY UA (POCT) 1.010 1.005 - 1.030 [facility] UROBILINOGEN UA (POCT) 1.0 E.U./dL Normal E.U./ dL [facility] Absolute lymphocyte countOrd ered By: ED PROVIDER on 07-04-2023 Lymphocytes Auto (Unsp spec) [#/Vol] 2.21 10*3/uL 0.83-4.51 [facility] Basophil percentageOrdered B y: ED PROVIDER on 07-04-2023 Basophils/100 WBC (Bld) 0.7 % 0-1 [facility] Eosinophils/100 WBC (Bld) 2.6 % 0-3 [facility] Neutrophils (Bld) [#/Vol] 4.0 10*3/uL 2.0-7.7 [facility] Neutrophils/100 WBC (Bld) 57.1 % 34-64 [facility] WBC (Bld) [#/Vol] 7.0 10*3/uL 4.5-13.0 [facility] Basophil percentageOrdered B y: Flor Seymour on 07-04-2023 Chloride [Moles/Vol] 108 mmol/L 98-107 [facility] Glucose [Mass/Vol] 79 mg/dL 74-106 [facility] Potassium [Moles/Vol] 4.3 mmol/L 3.5-5.1 [facility] Sodium [Moles/Vol] 139 mmol/L 136-145 [facility] Basophil percentage 0-5 SEEN /hpf 0-5 [facility] Beta hCG serum qualOrdered B y: Flor Seymour on 07-04-2023 Beta HCG ( test) Ql Negative [facility] Bilirubin Test strip Ql (U)O rdered By: Flor Seymour on 07-04-2023 Bilirubin Ql (U) Negative Negative [facility] Blood erythrocytes count (nu mber/volume)Ordered By: ED PROVIDER on 07-04-2023 RBC (Bld) [#/Vol] 4.54 10*6/uL 4.1-4.8 [facility] Blood hemoglobin measurement (mass/volume)Ordered By: ED PROVIDER on 07-04-2023 Hemoglobin (Bld) [Mass/Vol] 12.9 g/dL 12.0-15.0 [facility] Blood lymphocytes/100 leukoc ytesOrdered By: ED PROVIDER on 07-04-2023 Lymphocytes/100 WBC (Bld) 31.8 % 25-45 [facility] Blood monocytes/100 leukocyt esOrdered By: ED PROVIDER on 07-04-2023 Monocytes/100 WBC (Bld) 7.5 % 3-6 [facility] Blood platelet mean volumeOr dered By: ED PROVIDER on 07-04-2023 Platelet mean volume (Bld) [Entitic vol] 9.8 fL 6.2-12.0 [facility] Determination of erythrocyte mean corpuscular volume (MCV)Ordered By: ED PROVIDER on 07-04-2023 MCV (RBC) [Entitic vol] 89.0 fL 78-96 [facility] Hematocrit Auto (Bld) [Volum e fraction]Ordered By: ED PROVIDER on 07-04-2023 Hematocrit (Bld) [Volume fraction] 40.4 % 37-46 [facility] Ketones Test strip Ql (U)Ord ered By: Flor Seymour on 07-04-2023 Ketones Ql (U) 5 mg/dl Negative [facility] Laboratory - Chemistry and C hemistry - challengeOrdered By: Flor Seymour on 07-04-2023 CO2 [Moles/Vol] 29.0 mmol/L 21.0-32.0 [facility] Urea nitrogen/Creatinine [Mass ratio] 13.9 mg/mg 10-20 [facility] - Hematology and Cell countsOrdered By: ED PROVIDER on 07-04-2023 Erythrocyte distribution width (RBC) [Entitic vol] 39.5 fL 35.1-43.9 [facility] Erythrocyte distribution width (RBC) [Ratio] 12.0 % 11.6-14.6 [facility] Immature granulocytes/100 WBC (Bld) 0.300 % 0.0-0.9 [facility] Comment on above: IG% - Immature Granu locytes (promyelocytes, myelocytes and metamyelocytes) > 1% indicates that a LEFT SHIFT is Present. MCH (RBC) [Entitic mass] 28.4 pg 25.0-35.0 [facility] Nucleated RBC/100 WBC (Bld) [Ratio] 0 % 0-5 [facility] MCHC Auto (RBC) [Mass/Vol]Or dered By: ED PROVIDER on 07-04-2023 MCHC (RBC) [Mass/Vol] 31.9 g/dL 32-36 [facility] Mucus LM Ql (Urine sed)Order ed By: Flor Seymour on 07-04-2023 Mucus Ql (Urine sed) 0 SEEN /hpf [facility] Nitrite Test strip Ql (U)Ord ered By: Flor Seymour on 07-04-2023 Nitrite Ql (U) Negative Negative [facility] No Panel InformationOrdered By: Flor Seymour on 07-04-2023 Estimated Creatinine Clearance Calc 83.81 ml/min [facility] Estimated GFR (MDRD) Amer 100 mL/min >60 [facility] Comment on above: GFR Calc Estimated GFR (MDRD) Non-Af Amer 83 mL/min >60 [facility] Comment on above: Non- GFR Calc Platelets bldOrdered By: ED PROVIDER on 07-04-2023 Platelets (Bld) [#/Vol] 315 10*3/uL 150-450 [facility] Protein Test strip Ql (U)Ord ered By: Flor Seymour on 07-04-2023 Protein Ql (U) 30 mg/dl Negative [facility] Serum or plasma calcium vel urement (mass/volume)Ordered By: Flor Seymour on 07-04-2023 Calcium [Mass/Vol] 9.2 mg/dL 8.5-10.1 [facility] Serum or plasma creatinine m easurement (mass/volume)Ordered By: Flor Seymour on 07-04-2023 Creatinine [Mass/Vol] 0.94 mg/dL 0.55-1.02 [facility] Comment on above: The validity of the calculated GFR & GFRAA in patients over 70 years has not been determined. Clinical correlation is essential. Serum or plasma urea nitroge n measurement (mass/volume)Ordered By: Flor Seymour on 07-04-2023 Urea nitrogen [Mass/Vol] 13 mg/dL 7-18 [facility] Squamous epithelial cells de tection in urine sediment by light microscopyOrdered By: Flor Seymour on 07-04-2023 Epithelial cells.squamous LM Ql (Urine sed) 0-5 SEEN /hpf 5-10 [facility] Thin prep Papanicolaou smear with manual screeningOrdered By: Flor Seymour on 07-04-2023 Thin prep Papanicolaou smear with manual screening 2 5-15 [facility] Urine blood detectionOrdered By: Flor Seymour on 07-04-2023 RBC Ql (U) 250 /ul Negative [facility] RBC Ql (U) 10-25 SEEN /hpf 0-5 [facility] Urine clarityOrdered By: Nataliia Seymour on 07-04-2023 Clarity (U) Clear Clear [facility] Urine color determinationOrd ered By: Flor Seymour on 07-04-2023 Color (U) Yellow Yellow [facility] Urine glucose detectionOrder ed By: Flor Seymour on 07-04-2023 Glucose Ql (U) Normal mg/dl Normal [facility] Urine leukocyte esterase det ection by dipstickOrdered By: Flor Seymour on 07-04-2023 Leukocyte esterase Test strip Ql (U) 100 /ul Negative [facility] Urine pHOrdered By: Flor Seymour on 07-04-2023 pH (U) 6.0 [pH] 5.0 - 8.0 [facility] Urine sediment bacteria coun t by microscopy (number/high power field)Ordered By: Flor Seymour on 07-04-2023 Bacteria LM.HPF (Urine sed) [#/Area] 0 /[HPF] None Seen [facility] Urine specific gravity measu rementOrdered By: Flor Seymour on 07-04-2023 Specific gravity (U) [Rel density] 1.015 1.002-1.030 [facility] Urobilinogen Auto test strip Ql (U)Ordered By: Flor Seymour on 07-04-2023 Urobilinogen Ql (U) 1 mg/dl Normal [facility] Culture, urineOrdered By: Payal Clements on 03-27-2023 Bacteria identified Cx Nom (U) Presumptive E. coli [facility] Basophil percentageOrdered B y: Summer Tyree on 03-19-2023 Bilirubin [Mass/Vol] 0.60 mg/dL 0.20-1.00 [facility] Comment on above: For patients on eltr ombopag therapy, use of Dimension [place] TBIL is not recommended. Chloride [Moles/Vol] 106 mmol/L 98-107 [facility] Glucose [Mass/Vol] 88 mg/dL 74-106 [facility] Potassium [Moles/Vol] 3.7 mmol/L 3.5-5.1 [facility] Protein [Mass/Vol] 8.4 g/dL 6.4-8.2 [facility] Sodium [Moles/Vol] 139 mmol/L 136-145 [facility] WBC (Bld) [#/Vol] 7.3 10*3/uL 4.5-13.0 [facility] Blood erythrocytes count (nu mber/volume)Ordered By: Mara Clements on 03-19-2023 RBC (Bld) [#/Vol] 5.02 10*6/uL 4.1-4.8 [facility] Blood hemoglobin measurement (mass/volume)Ordered By: Mara Clements on 03-19-2023 Hemoglobin (Bld) [Mass/Vol] 14.5 g/dL 12.0-15.0 [facility] Blood platelet mean volumeOr dered By: [facility] Platelet mean volume (Bld) [Entitic vol] 9.9 fL 6.2-12.0 [facility] Determination of erythrocyte mean corpuscular volume (MCV)Ordered By: Mara Clements on 03-19-2023 MCV (RBC) [Entitic vol] 85.5 fL 78-96 [facility] Hematocrit Auto (Bld) [Volum e fraction][facility] Hematocrit (Bld) [Volume fraction] 42.9 % 37-46 [facility] - Chemistry and C hemistry - challengeOrdered By: [facility] ALP [Catalytic activity/Vol] 61 U/L 47-119 [facility] ALT [Catalytic activity/Vol] 13 U/L 13-56 [facility] CO2 [Moles/Vol] 22.0 mmol/L 21.0-32.0 [facility] Free T4 [Mass/Vol] 1.47 ng/dL 0.76-1.46 [facility] Globulin (S) [Mass/Vol] 4.4 g/dL 2.2-4.2 [facility] Urea nitrogen/Creatinine [Mass ratio] 14.2 mg/mg 10-20 [facility] - Hematology and Cell countsOrdered By: Mara Clements 03-19-2023 Erythrocyte distribution width (RBC) [Entitic vol] 37.2 fL 35.1-43.9 [facility] Erythrocyte distribution width (RBC) [Ratio] 12.0 % 11.6-14.6 [facility] MCH (RBC) [Entitic mass] 28.9 pg 25.0-35.0 [facility] MCHC Auto (RBC) [Mass/Vol]Or dered By: Mara Clements on 03-19-2023 MCHC (RBC) [Mass/Vol] 33.8 g/dL 32-36 [facility] No Panel InformationOrdered By: Mara Clements on 03-19-2023 Thyroid Stimulating Hormone (TSH) 0.45 uIU/mL 0.358-3.74 [facility] Glucose 2 Hour See comment [facility] Comment on above: FASTING 90 Col: 02/22 03/15 0701 30 min GLU 190 H Col: 03/19/23 0740 60 min GLU 137 Col: 03/19/23 0810 120min GLU 72 Col: 03/19/23 0909 Androstenedione 197 ng/dL 41-262 [facility] Comment on above: Performed at: [facility] [address] [id number] Director: Ritesh Ly MD, Phone: [phone] Estimated GFR (MDRD) [facility] Comment on above: Test not performedAf rican [place] GFR Calc Estimated GFR (MDRD) [facility] Comment on above: Test not performedNo n- GFR Calc Follicle Stimulating Hormone 5.4 mIU/mL [facility] Comment on above: NORMAL REFERENCE RAN GES FEMALE FOLLICULAR 2.3 - 12.6 mIU/mL MID-CYCLE PEAK 5.2 - 17.5 mIU/mL LUTEAL 1.7 - 12.9 mIU/mL POST-MENOPAUSAL ON MHT 5.9 - 72.8 mIU/mL NOT ON MHT 12.7 - 132.2 mlU/mL MALE 0.7 - 10.8 mIU/mL Free Triiodothyronine (T3) pg/dL 2.9 pg/mL 2.18-3.98 [facility] Luteinizing Hormone 9.2 mIU/mL [facility] Comment on above: NORMAL REFERENCE RAN GES FEMALE FOLLICULAR 1.9 - 26.2 mIU/mL MID-CYCLE PEAK 22.8 - 76.1 mIU/mL LUTEAL 0.6 - 16.6 mIU/mL POST-MENOPAUSAL ON MHT 1.1 - 52.4 mIU/mL NOT ON MHT 8.6 - 61.8 mIU/mL MALE 1.2 - 10.6 mIU/mL Total Triiodothyronine 1.48 ng/mL 0.6-1.81 [facility] Vitamin D 25-Hydroxy 15.6 ng/mL [facility] Comment on above: Vitamin D 25(OH) Sta tus Range Deficiency <20 ng/mL (50nmol/L) Insufficiency 20 - 30 ng/mL (50 - 75 nmol/L) Sufficiency 30 - 100 ng/mL (75 - 250 nmol/L) Toxicity >100 ng/mL (>250 nmol/L) Platelets bldOrdered By: Jono Clements on 03-19-2023 Platelets (Bld) [#/Vol] 384 10*3/uL 150-450 [facility] Serum or plasma 17-hydroxypr ogesterone measurement (mass/volume)Ordered By: Mara Clements on 03-19-2023 17-Hydroxyprogesterone [Mass/Vol] 71 ng/dL . [facility] Comment on above: Arnaud Stage Female 1 0 - 82 2 11 - 98 3 11 - 155 4 18 - 230 5 20 - 265Performed at: - [address] [id number] Director: Ritesh Ly MD, Phone: [phone] Serum or plasma albumin vel urement (mass/volume)Ordered By: Mara Clements on 03-19-2023 Albumin [Mass/Vol] 4.0 g/dL 3.2-5.0 [facility] Serum or plasma albumin/glob ulin mass ratioOrdered By: Mara Clements on 03-19-2023 Albumin/Globulin [Mass ratio] 0.9 {ratio} 0.9-2.4 [facility] Serum or plasma calcium vel urement (mass/volume)Ordered By: Mara Clements on 03-19-2023 Calcium [Mass/Vol] 9.5 mg/dL 8.5-10.1 [facility] Serum or plasma cortisol castro surement (mass/volume)Ordered By: Mara Clements on 03-19-2023 Cortisol [Mass/Vol] 27.10 ug/dL 3.44-22.45 [facility] Comment on above: Adult (AM) 5.27 - 22 .45 ug/dL Adult (PM) 3.44 - 16.76 ug/dLPlease note revised CORTISOL reference range effective 2019. Serum or plasma creatinine m easurement (mass/volume)Ordered By: Mara Clements on 03-19-2023 Creatinine [Mass/Vol] 0.98 mg/dL 0.55-1.02 [facility] Comment on above: The validity of the calculated GFR & GFRAA in patients over 70 years has not been determined. Clinical correlation is essential. Serum or plasma estradiol (E 2) measurement (mass/volume)Ordered By: Mara Clements on 03-19-2023 E2 [Mass/Vol] 78.0 pg/mL [facility] Comment on above: NORMAL REFERENCE RAN [...] 75 g glucose PO Qn See comment [facility] Comment on above: FASTING 7.3 Col: 0701 30 min INS 96.4 Col: 03/19/23 0740 60 min INS 111.7 Col: 03/19/23 0810 120min INS 19.3 Col: 03/19/23 0909 Serum or plasma prolactin me asurement (mass/volume)Ordered By: Mara Clements on 03-19-2023 Prolactin [Mass/Vol] 15.6 ng/mL [facility] Comment on above: NORMAL REFERENCE RAN GES FEMALE NON- 2.2 - 30.3 ng/mL 8.1 - 347.6 ng/mL POST-MENOPAUSAL 0.7 - 31.5 ng/mL MALE 2.5 - 17.4 ng/mL Serum or plasma urea nitroge n measurement (mass/volume)Ordered By: Mara Clements on 03-19-2023 Urea nitrogen [Mass/Vol] 14 mg/dL 7-18 [facility] Thin prep Papanicolaou smear with manual screeningOrdered By: Mara Clements on 03-19-2023 Thin prep Papanicolaou smear with manual screening 17 U/L 15-37 [facility] Thin prep Papanicolaou smear with manual screening 11 5-15 [facility] Absolute lymphocyte countOrd ered By: Dr. Seymour on 02-04-2023 Lymphocytes Auto (Unsp spec) [#/Vol] 0.69 10*3/uL 0.83-4.51 [facility] Basophil percentageOrdered B y: Dr. Seymour on 02-04-2023 Basophil percentage 5-10 SEEN /hpf 0-5 [facility] Basophils/100 WBC (Bld) 0.3 % 0-1 [facility] Chloride [Moles/Vol] 104 mmol/L 98-107 [facility] Eosinophils/100 WBC (Bld) 0.2 % 0-3 [facility] Glucose [Mass/Vol] 103 mg/dL 74-106 [facility] Comment on above: Fasting Glucose resu lt from 100 to 125 mg/dL suggests IMPAIRED HOMEOSTASIS per A.D.A. criteria. Neutrophils (Bld) [#/Vol] 16.4 10*3/uL 2.0-7.7 [facility] Neutrophils/100 WBC (Bld) 91.2 % 34-64 [facility] Potassium [Moles/Vol] 3.1 mmol/L 3.5-5.1 [facility] Sodium [Moles/Vol] 134 mmol/L 136-145 [facility] WBC (Bld) [#/Vol] 17.9 10*3/uL 4.5-13.0 [facility] Bilirubin Test strip Ql (U)O rdered By: Dr. Seymour on 02-04-2023 Bilirubin Ql (U) 1 mg/dL Negative [facility] Comment on above: COLOR OF URINE MAY A FFECT DIPSTICK RESULTS. Blood erythrocytes count (nu mber/volume)Ordered By: Dr. Seymour on 02-04-2023 RBC (Bld) [#/Vol] 4.59 10*6/uL 4.1-4.8 [facility] Blood hemoglobin measurement (mass/volume)Ordered By: Dr. Seymour on 02-04-2023 Hemoglobin (Bld) [Mass/Vol] 13.4 g/dL 12.0-15.0 [facility] Blood lymphocytes/100 leukoc ytesOrdered By: Dr. Seymour on 02-04-2023 Lymphocytes/100 WBC (Bld) 3.8 % 25-45 [facility] Blood monocytes/100 leukocyt esOrdered By: Dr. Seymour on 02-04-2023 Monocytes/100 WBC (Bld) 3.7 % 3-6 [facility] Blood platelet mean volumeOr dered By: Dr. Seymour on 02-04-2023 Platelet mean volume (Bld) [Entitic vol] 10.5 fL 6.2-12.0 [facility] Determination of erythrocyte mean corpuscular volume (MCV)Ordered By: Dr. Seymour on 02-04-2023 MCV (RBC) [Entitic vol] 84.1 fL 78-96 [facility] Hematocrit Auto (Bld) [Volum e fraction]Ordered By: Dr. Seymour on 02-04-2023 Hematocrit (Bld) [Volume fraction] 38.6 % 37-46 [facility] Influenza virus A and B and SARS-CoV-2 (COVID-19) Ag panel - Upper respiratory specimOrdered By: Flor Seymour on 02-04-2023 SARS-CoV-2 (COVID-19) RNA JAIRON+probe Ql (Resp) [facility] Influenza virus A and B and SARS-CoV-2 (COVID-19) Ag panel - Upper respiratory specimOrdered By: Dr. Seymour on 02-04-2023 SARS-CoV-2 (COVID-19) RNA JAIRON+probe Ql (Resp) [facility] Ketones Test strip Ql (U)Ord ered By: Dr. Seymour on 02-04-2023 Ketones Ql (U) 150 mg/dl Negative [facility] Comment on above: CRITICAL VALUE *HCRI TICAL VALUE VERIFIED. CALLED TO SHIVAM BOWLING02/04/[id number] Khalif Lemus.RESULTS READ BACK BY SAME . Laboratory - Chemistry and C hemistry - challengeOrdered By: Dr. Seymour on 02-04-2023 CO2 [Moles/Vol] 21.0 mmol/L 21.0-32.0 [facility] Urea nitrogen/Creatinine [Mass ratio] 8.7 mg/mg 10-20 [facility] Laboratory - Hematology and Cell countsOrdered By: Dr. Seymour on 02-04-2023 Erythrocyte distribution width (RBC) [Entitic vol] 35.8 fL 35.1-43.9 [facility] Erythrocyte distribution width (RBC) [Ratio] 11.8 % 11.6-14.6 [facility] Immature granulocytes/100 WBC (Bld) 0.800 % 0.0-0.9 [facility] Comment on above: IG% - Immature Granu locytes (promyelocytes, myelocytes and metamyelocytes) > 1% indicates that a LEFT SHIFT is Present. MCH (RBC) [Entitic mass] 29.2 pg 25.0-35.0 [facility] Nucleated RBC/100 WBC (Bld) [Ratio] 0 % 0-5 [facility] MCHC Auto (RBC) [Mass/Vol]Or dered By: Dr. Seymour on 02-04-2023 MCHC (RBC) [Mass/Vol] 34.7 g/dL 32-36 [facility] Mucus LM Ql (Urine sed)Order ed By: Dr. Seymour on 02-04-2023 Mucus Ql (Urine sed) 0 SEEN /hpf [facility] Nitrite Test strip Ql (U)Ord ered By: Dr. Seymour on 02-04-2023 Nitrite Ql (U) Negative Negative [facility] No Panel InformationOrdered By: Dr. Seymour on 02-04-2023 Estimated Creatinine Clearance Calc 82.80 ml/min [facility] Estimated GFR (MDRD) [facility] Comment on above: Test not performedAf rican [place]ian GFR Calc Estimated [facility] (MDRD) [facility] on above: Test not performedNo n- GFR Calc Platelets bldOrdered By: Dr. Seymour on 02-04-2023 Platelets (Bld) [#/Vol] 258 10*3/uL 150-450 [facility] Protein Test strip Ql (U)Ord ered By: Dr. Seymour on 02-04-2023 Protein Ql (U) 100 mg/dl Negative [facility] S. pyogenes Ag IF Ql (Throat )Ordered By: Flor Seymour on 02-04-2023 S. pyogenes Ag IA Ql (Unsp spec) Streptococcus Group A [facility] S. pyogenes Ag IF Ql (Throat )Ordered By: Dr. Seymour on 02-04-2023 S. pyogenes Ag IA Ql (Unsp spec) Streptococcus Group A [facility] Serum or plasma calcium vel urement (mass/volume)Ordered By: Dr. Seymour on 02-04-2023 Calcium [Mass/Vol] 9.2 mg/dL 8.5-10.1 [facility] Serum or plasma creatinine m easurement (mass/volume)Ordered By: Dr. Seymour on 02-04-2023 Creatinine [Mass/Vol] 1.04 mg/dL 0.55-1.02 [facility] Comment on above: The validity of the calculated GFR & GFRAA in patients over 70 years has not been determined. Clinical correlation is essential. Serum or plasma urea nitroge n measurement (mass/volume)Ordered By: Dr. Seymour on 02-04-2023 Urea nitrogen [Mass/Vol] 9 mg/dL 7-18 [facility] Squamous epithelial cells de tection in urine sediment by light microscopyOrdered By: Dr. Seymour on 02-04-2023 Epithelial cells.squamous LM Ql (Urine sed) 0-5 SEEN /hpf 5-10 [facility] Thin prep Papanicolaou smear with manual screeningOrdered By: Dr. Seymour on 02-04-2023 Thin prep Papanicolaou smear with manual screening 9 5-15 [facility] Urine blood detectionOrdered By: Dr. Seymour on 02-04-2023 RBC Ql (U) Negative Negative [facility] RBC Ql (U) 0 SEEN /hpf 0-5 [facility] Urine clarityOrdered By: Dr. Seymour on 02-04-2023 Clarity (U) Clear Clear [facility] Urine color determinationOrd ered By: Dr. Seymour on 02-04-2023 Color (U) Yellow Yellow [facility] Urine glucose detectionOrder ed By: Dr. Seymour on 02-04-2023 Glucose Ql (U) Normal mg/dl Normal [facility] Urine leukocyte esterase det ection by dipstickOrdered By: Dr. Seymour on 02-04-2023 Leukocyte esterase Test strip Ql (U) 25 /ul Negative [facility] Urine pHOrdered By: Dr. Lesli khanna on 02-04-2023 pH (U) 6.5 [pH] 5.0 - 8.0 [facility] Urine sediment bacteria coun t by microscopy (number/high power field)Ordered By: Dr. Seymour on 02-04-2023 Bacteria LM.HPF (Urine sed) [#/Area] 1 /[HPF] None Seen [facility] Urine specific gravity measu rementOrdered By: Dr. Seymour on 02-04-2023 Specific gravity (U) [Rel density] 1.015 1.002-1.030 [facility] Urobilinogen Auto test strip Ql (U)Ordered By: Dr. Seymour on 02-04-2023 Urobilinogen Ql (U) 12 mg/dl Normal [facility] Throat specimen bacteria radha ntification by cultureOrdered By: Dr. Wolfe on 12-03-2022 Bacteria identified Cx Nom (Throat) streptococcus isolated. [facility] Culture, urineOrdered By: Dr Praveena De La Torre on 12-01-2022 Bacteria identified Cx Nom (U) Presumptive E. coli [facility] Throat specimen bacteria radha ntification by cultureOrdered By: J Luis Wolfe on 12-01-2022 Bacteria identified Cx Nom (Throat) streptococcus isolated. [facility] Absolute lymphocyte countOrd ered By: Dr. De La Torre on 11-28-2022 Lymphocytes Auto (Unsp spec) [#/Vol] 2.71 10*3/uL 0.83-4.51 [facility] Basophil percentageOrdered B y: Dr. De La Torre on 11-28-2022 Basophil percentage 25-50 SEEN /hpf 0-5 [facility] Basophils/100 WBC (Bld) 0.5 % 0-1 [facility] Chloride [Moles/Vol] 108 mmol/L 98-107 [facility] Eosinophils/100 WBC (Bld) 1.5 % 0-3 [facility] Glucose [Mass/Vol] 75 mg/dL 74-106 [facility] Neutrophils (Bld) [#/Vol] 5.8 10*3/uL 2.0-7.7 [facility] Neutrophils/100 WBC (Bld) 62.9 % 34-64 [facility] Potassium [Moles/Vol] 3.5 mmol/L 3.5-5.1 [facility] Sodium [Moles/Vol] 141 mmol/L 136-145 [facility] WBC (Bld) [#/Vol] 9.3 10*3/uL 4.5-13.0 [facility] Bilirubin Test strip Ql (U)O rdered By: Dr. De La Torre on 11-28-2022 Bilirubin Ql (U) Negative Negative [facility] Blood erythrocytes count (nu mber/volume)Ordered By: Dr. De La Torre on 11-28-2022 RBC (Bld) [#/Vol] 4.53 10*6/uL 4.1-4.8 [facility] Blood hemoglobin measurement (mass/volume)Ordered By: Dr. De La Torre on 11-28-2022 Hemoglobin (Bld) [Mass/Vol] 12.8 g/dL 12.0-15.0 [facility] Blood lymphocytes/100 leukoc ytesOrdered By: Dr. De La Torre on 11-28-2022 Lymphocytes/100 WBC (Bld) 29.3 % 25-45 [facility] Blood monocytes/100 leukocyt esOrdered By: Dr. De La Torre on 11-28-2022 Monocytes/100 WBC (Bld) 5.6 % 3-6 [facility] Blood platelet mean volumeOr dered By: Dr. De La Torre on 11-28-2022 Platelet mean volume (Bld) [Entitic vol] 9.8 fL 6.2-12.0 [facility] Culture, urineOrdered By: John De La Torre on 11-28-2022 Bacteria identified Cx Nom (U) Presumptive E. coli [facility] Determination of erythrocyte mean corpuscular volume (MCV)Ordered By: Dr. De La Torre on 11-28-2022 MCV (RBC) [Entitic vol] 86.1 fL 78-96 [facility] Hematocrit Auto (Bld) [Volum e fraction]Ordered By: Dr. De La Torre on 11-28-2022 Hematocrit (Bld) [Volume fraction] 39.0 % 37-46 [facility] Ketones Test strip Ql (U)Ord ered By: Dr. De La Torre on 11-28-2022 Ketones Ql (U) 5 mg/dl Negative [facility] Laboratory - Chemistry and C hemistry - challengeOrdered By: Dr. De La Torre on 11-28-2022 CO2 [Moles/Vol] 26.0 mmol/L 21.0-32.0 [facility] Urea nitrogen/Creatinine [Mass ratio] 12.1 mg/mg 10-20 [facility] Laboratory - Hematology and Cell countsOrdered By: Dr. De La Torre on 11-28-2022 Erythrocyte distribution width (RBC) [Entitic vol] 36.8 fL 35.1-43.9 [facility] Erythrocyte distribution width (RBC) [Ratio] 11.7 % 11.6-14.6 [facility] Immature granulocytes/100 WBC (Bld) 0.200 % 0.0-0.9 [facility] Comment on above: IG% - Immature Granu locytes (promyelocytes, myelocytes and metamyelocytes) > 1% indicates that a LEFT SHIFT is Present. MCH (RBC) [Entitic mass] 28.3 pg 25.0-35.0 [facility] Nucleated RBC/100 WBC (Bld) [Ratio] 0 % 0-5 [facility] MCHC Auto (RBC) [Mass/Vol]Or dered By: Dr. De La Torre on 11-28-2022 MCHC (RBC) [Mass/Vol] 32.8 g/dL 32-36 [facility] Mucus LM Ql (Urine sed)Order ed By: Dr. De La Torre on 11-28-2022 Mucus Ql (Urine sed) RARE /hpf [facility] Nitrite Test strip Ql (U)Ord ered By: Dr. De La Torre on 11-28-2022 Nitrite Ql (U) Negative Negative [facility] No Panel InformationOrdered By: Dr. De La Torre on 11-28-2022 Estimated Creatinine Clearance Calc 96.86 ml/min [facility] Estimated GFR (MDRD) Amer TNP [facility] Comment on above: Test not performedAf rican [place]ian GFR Calc Estimated GFR (MDRD) Non-Af [facility] Comment on above: Test not performedNo n- GFR Calc Platelets bldOrdered By: Dr. De La Torre on 11-28-2022 Platelets (Bld) [#/Vol] 347 10*3/uL 150-450 [facility] Protein Test strip Ql (U)Ord ered By: Dr. De La Torre on 11-28-2022 Protein Ql (U) Negative Negative [facility] Serum or plasma calcium vel urement (mass/volume)Ordered By: Dr. De La Torre on 11-28-2022 Calcium [Mass/Vol] 9.3 mg/dL 8.5-10.1 [facility] Serum or plasma creatinine m easurement (mass/volume)Ordered By: Dr. De La Torre on 11-28-2022 Creatinine [Mass/Vol] 0.82 mg/dL 0.55-1.02 [facility] Comment on above: The validity of the calculated GFR & GFRAA in patients over 70 years has not been determined. Clinical correlation is essential. Serum or plasma urea nitroge n measurement (mass/volume)Ordered By: Dr. De La Torre on 11-28-2022 Urea nitrogen [Mass/Vol] 10 mg/dL 7-18 [facility] Squamous epithelial cells de tection in urine sediment by light microscopyOrdered By: Dr. De La Trore on 11-28-2022 Epithelial cells.squamous LM Ql (Urine sed) 0-5 SEEN /hpf 5-10 [facility] Thin prep Papanicolaou smear with manual screeningOrdered By: Dr. De La Torre on 11-28-2022 Thin prep Papanicolaou smear with manual screening 7 5-15 [facility] Urine blood detectionOrdered By: Dr. De La Torre on 11-28-2022 RBC Ql (U) 25 /ul Negative [facility] RBC Ql (U) 0-5 SEEN /hpf 0-5 [facility] Urine clarityOrdered By: Dr. De La Torre on 11-28-2022 Clarity (U) Sl. Cloudy Clear [facility] Urine color determinationOrd ered By: Dr. De La Torre on 11-28-2022 Color (U) Yellow Yellow [facility] Urine glucose detectionOrder ed By: Dr. De La Torre on 11-28-2022 Glucose Ql (U) Normal mg/dl Normal [facility] Urine leukocyte esterase det ection by dipstickOrdered By: Dr. De La Torre on 11-28-2022 Leukocyte esterase Test strip Ql (U) 500 /ul Negative [facility] Urine pHOrdered By: Dr. Gann ne on 11-28-2022 pH (U) 8.0 [pH] 5.0 - 8.0 [facility] Urine sediment bacteria coun t by microscopy (number/high power field)Ordered By: Dr. De La Torre on 11-28-2022 Bacteria LM.HPF (Urine sed) [#/Area] RARE /hpf None Seen [facility] Urine specific gravity measu rementOrdered By: Dr. De La Torre on 11-28-2022 Specific gravity (U) [Rel density] 1.015 1.002-1.030 [facility] Urobilinogen Auto test strip Ql (U)Ordered By: Dr. De La Torre on 11-28-2022 Urobilinogen Ql (U) Normal mg/dl Normal [facility] TSH with Reflex to T4, Freeo n 11-24-2022 TSH with reflex to T4, Free 0.823 [facility] Release to patient->Automatic [facility] Culture, urineOrdered By: Dr Praveena Clements on 11-19-2022 Bacteria identified Cx Nom (U) Mixed Gram Pos & Gram Neg Org [facility] Basophil percentageOrdered B y: Dr. Clements on 11-18-2022 Basophil percentage 5-10 SEEN /hpf 0-5 [facility] Basophil percentageOrdered B y: Teodoro Garcia on 11-18-2022 Lactate [Moles/Vol] 0.7 mmol/L 0.4-2.0 [facility] Bilirubin Test strip Ql (U)O rdered By: Dr. Clements on 11-18-2022 Bilirubin Ql (U) Negative Negative [facility] Ketones Test strip Ql (U)Ord ered By: Dr. Clements on 11-18-2022 Ketones Ql (U) Negative Negative [facility] Mucus LM Ql (Urine sed)Order ed By: Dr. Clements on 11-18-2022 Mucus Ql (Urine sed) 2+ /hpf [facility] Nitrite Test strip Ql (U)Ord ered By: Dr. Clements on 11-18-2022 Nitrite Ql (U) Negative Negative [facility] Protein Test strip Ql (U)Ord ered By: Dr. Clements on 11-18-2022 Protein Ql (U) 30 mg/dl Negative [facility] Squamous epithelial cells de tection in urine sediment by light microscopyOrdered By: Dr. Clements on 11-18-2022 Epithelial cells.squamous LM Ql (Urine sed) 0 SEEN /hpf 5-10 [facility] Urine blood detectionOrdered By: Dr. Clements on 11-18-2022 RBC Ql (U) Negative Negative [facility] RBC Ql (U) 0 SEEN /hpf 0-5 [facility] Urine clarityOrdered By: Dr. Clements on 11-18-2022 Clarity (U) Clear Clear [facility] Urine color determinationOrd ered By: Dr. Clements on 11-18-2022 Color (U) Yellow Yellow [facility] Urine glucose detectionOrder ed By: Dr. Clements on 11-18-2022 Glucose Ql (U) Normal mg/dl Normal [facility] Urine leukocyte esterase det ection by dipstickOrdered By: Dr. Clements on 11-18-2022 Leukocyte esterase Test strip Ql (U) 25 /ul Negative [facility] Urine pHOrdered By: Dr. Urvashi dutta on 11-18-2022 pH (U) 6.0 [pH] 5.0 - 8.0 [facility] Urine sediment bacteria coun t by microscopy (number/high power field)Ordered By: Dr. Clements on 11-18-2022 Bacteria LM.HPF (Urine sed) [#/Area] 1 /[HPF] None Seen [facility] Urine specific gravity measu rementOrdered By: Dr. Clements on 11-18-2022 Specific gravity (U) [Rel density] 1.020 1.002-1.030 [facility] Urobilinogen Auto test strip Ql (U)Ordered By: Dr. Clements on 03-28-2023 Urobilinogen Ql (U) 1 mg/dl Normal [facility] Absolute lymphocyte countOrd ered By: Teodoro Garcia on 11-17-2022 Lymphocytes Auto (Unsp spec) [#/Vol] 6.68 10*3/uL 0.83-4.51 [facility] Basophil percentageOrdered B y: Teodoro Garcia on 11-17-2022 Basophils/100 WBC (Bld) 0.5 % 0-1 [facility] Chloride [Moles/Vol] 108 mmol/L 98-107 [facility] Eosinophils/100 WBC (Bld) 1.4 % 0-3 [facility] Glucose [Mass/Vol] 60 mg/dL 74-106 [facility] Lactate [Moles/Vol] 3.1 mmol/L 0.4-2.0 [facility] Comment on above: Critical Result(s) C alled at: 23:35:04 11/17/2022 by: NANCY MCKAY TO SHIVAM BOWLING. Results read back by same. Neutrophils (Bld) [#/Vol] 5.5 10*3/uL 2.0-7.7 [facility] Neutrophils/100 WBC (Bld) 41.2 % 34-64 [facility] Potassium [Moles/Vol] 3.8 mmol/L 3.5-5.1 [facility] Sodium [Moles/Vol] 140 mmol/L 136-145 [facility] WBC (Bld) [#/Vol] 13.3 10*3/uL 4.5-13.0 [facility] Beta hCG serum qualOrdered B y: Dr. Clements on 11-17-2022 Beta HCG ( test) Ql Negative [facility] Blood erythrocytes count (nu mber/volume)Ordered By: Teodoro Garcia on 11-17-2022 RBC (Bld) [#/Vol] 5.17 10*6/uL 4.1-4.8 [facility] Blood hemoglobin measurement (mass/volume)Ordered By: Teodoro Garcia on 11-17-2022 Hemoglobin (Bld) [Mass/Vol] 15.0 g/dL 12.0-15.0 [facility] Blood lymphocytes/100 leukoc ytesOrdered By: Teodoro Garcia on 11-17-2022 Lymphocytes/100 WBC (Bld) 50.2 % 25-45 [facility] Blood manual differential co mment interpretation (narrative result)Ordered By: Teodoro Garcia on 11-17-2022 Manual differential comment James (Bld) [Interp] SCANNED [facility] Blood monocytes/100 leukocyt esOrdered By: Teodoro Garcia on 11-17-2022 Monocytes/100 WBC (Bld) 6.4 % 3-6 [facility] Blood platelet mean volumeOr dered By: Teodoro Garcia on 11-17-2022 Platelet mean volume (Bld) [Entitic vol] 9.6 fL 6.2-12.0 [facility] Determination of erythrocyte mean corpuscular volume (MCV)Ordered By: Teodoro Garcia on 11-17-2022 MCV (RBC) [Entitic vol] 86.3 fL 78-96 [facility] Hematocrit Auto (Bld) [Volum e fraction]Ordered By: Teodoro Garcia on 11-17-2022 Hematocrit (Bld) [Volume fraction] 44.6 % 37-46 [facility] INR in Blood by Coagulation assayOrdered By: Teodoro Garcia on 11-17-2022 INR Coag (Bld) [Relative time] 1.0 {INR} [facility] - Chemistry and C hemistry - challengeOrdered By: Teodoro Garcia on 11-17-2022 CO2 [Moles/Vol] 27.0 mmol/L 21.0-32.0 [facility] Urea nitrogen/Creatinine [Mass ratio] 15.1 mg/mg 10-20 [facility] - CoagulationOrde red By: Teodoro Garcia on 11-17-2022 aPTT Coag (Bld) [Time] 30.9 s 24.1-36.2 [facility] PT Coag (PPP) [Time] 12.5 s 11.7-14.9 [facility] Laboratory - Hematology and Cell countsOrdered By: Teodoro Garcia on 11-17-2022 Erythrocyte distribution width (RBC) [Entitic vol] 37.1 fL 35.1-43.9 [facility] Erythrocyte distribution width (RBC) [Ratio] 11.8 % 11.6-14.6 [facility] Immature granulocytes/100 WBC (Bld) 0.300 % 0.0-0.9 [facility] Comment on above: IG% - Immature Granu locytes (promyelocytes, myelocytes and metamyelocytes) > 1% indicates that a LEFT SHIFT is Present. MCH (RBC) [Entitic mass] 29.0 pg 25.0-35.0 [facility] Nucleated RBC/100 WBC (Bld) [Ratio] 0 % 0-5 [facility] MCHC Auto (RBC) [Mass/Vol]Or dered By: Teodoro Garcia on 11-17-2022 MCHC (RBC) [Mass/Vol] 33.6 g/dL 32-36 [facility] No Panel InformationOrdered By: Teodoro Garcia on 11-17-2022 Atypical Lymphocytes 1+ % [facility] Estimated GFR (MDRD) [facility] [place] Comment on above: Test not performedAf rican [place] GFR Calc Estimated GFR (MDRD) Non-Af [facility] Comment on above: Test not performedNo n- GFR Calc Platelets bldOrdered By: Fran Garcia on 11-17-2022 Platelets (Bld) [#/Vol] 471 10*3/uL 150-450 [facility] Serum or plasma calcium vel urement (mass/volume)Ordered By: Teodoro Garcia on 11-17-2022 Calcium [Mass/Vol] 9.2 mg/dL 8.5-10.1 [facility] Serum or plasma creatinine m easurement (mass/volume)Ordered By: Teodoro Garcia on 11-17-2022 Creatinine [Mass/Vol] 0.93 mg/dL 0.55-1.02 [facility] Comment on above: The validity of the calculated GFR & GFRAA in patients over 70 years has not been determined. Clinical correlation is essential. Serum or plasma urea nitroge n measurement (mass/volume)Ordered By: Teodoro Garcia on 11-17-2022 Urea nitrogen [Mass/Vol] 14 mg/dL 7-18 [facility] Thin prep Papanicolaou smear with manual screeningOrdered By: Teodoro Garcia on 11-17-2022 Thin prep Papanicolaou smear with manual screening 5 5-15 [facility] Absolute lymphocyte countOrd ered By: Dr. Harris on 11-12-2022 Lymphocytes Auto (Unsp spec) [#/Vol] 1.06 10*3/uL 0.83-4.51 [facility] Basophil percentageOrdered B y: Dr. Harris on 11-12-2022 Basophil percentage 0 SEEN /hpf 0-5 [facility] Basophils/100 WBC (Bld) 0.4 % 0-1 [facility] Bilirubin [Mass/Vol] 0.50 mg/dL 0.20-1.00 [facility] Comment on above: For patients on eltr ombopag therapy, use of Dimension [place] TBIL is not recommended. Chloride [Moles/Vol] 110 mmol/L 98-107 [facility] Eosinophils/100 WBC (Bld) 0.2 % 0-3 [facility] Glucose [Mass/Vol] 93 mg/dL 74-106 [facility] Neutrophils (Bld) [#/Vol] 10.9 10*3/uL 2.0-7.7 [facility] Neutrophils/100 WBC (Bld) 89.5 % 34-64 [facility] Potassium [Moles/Vol] 3.9 mmol/L 3.5-5.1 [facility] Protein [Mass/Vol] 7.7 g/dL 6.4-8.2 [facility] Sodium [Moles/Vol] 141 mmol/L 136-145 [facility] WBC (Bld) [#/Vol] 12.2 10*3/uL 4.5-13.0 [facility] Beta hCG serum qualOrdered B y: Dr. Harris on 11-12-2022 Beta HCG ( test) Ql Negative [facility] Bilirubin Test strip Ql (U)O rdered By: Dr. Harris on 11-12-2022 Bilirubin Ql (U) Negative Negative [facility] Blood erythrocytes count (nu mber/volume)Ordered By: Dr. Harris on 11-12-2022 RBC (Bld) [#/Vol] 4.89 10*6/uL 4.1-4.8 [facility] Blood hemoglobin measurement (mass/volume)Ordered By: Dr. Harris on 11-12-2022 Hemoglobin (Bld) [Mass/Vol] 13.9 g/dL 12.0-15.0 [facility] Blood lymphocytes/100 leukoc ytesOrdered By: Dr. Harris on 11-12-2022 Lymphocytes/100 WBC (Bld) 8.7 % 25-45 [facility] Blood monocytes/100 leukocyt esOrdered By: Dr. Harris on 11-12-2022 Monocytes/100 WBC (Bld) 0.9 % 3-6 [facility] Blood platelet mean volumeOr dered By: Dr. Harris on 11-12-2022 Platelet mean volume (Bld) [Entitic vol] 9.9 fL 6.2-12.0 [facility] Determination of erythrocyte mean corpuscular volume (MCV)Ordered By: Dr. Harris on 11-12-2022 MCV (RBC) [Entitic vol] 88.1 fL 78-96 [facility] Direct bilirubinOrdered By: Dr. Harris on 11-12-2022 Bilirubin.direct [Mass/Vol] 0.18 mg/dL 0.00-0.30 [facility] Hematocrit Auto (Bld) [Volum e fraction]Ordered By: Dr. Harris on 11-12-2022 Hematocrit (Bld) [Volume fraction] 43.1 % 37-46 [facility] Ketones Test strip Ql (U)Ord ered By: Dr. Harris on 11-12-2022 Ketones Ql (U) Negative Negative [facility] Laboratory - Chemistry and C hemistry - challengeOrdered By: Dr. Harris on 11-12-2022 ALP [Catalytic activity/Vol] 53 U/L 47-119 [facility] ALT [Catalytic activity/Vol] 16 U/L 13-56 [facility] CO2 [Moles/Vol] 25.0 mmol/L 21.0-32.0 [facility] Globulin (S) [Mass/Vol] 3.7 g/dL 2.2-4.2 [facility] Lipase [Catalytic activity/Vol] 97 U/L 73-393 [facility] Urea nitrogen/Creatinine [Mass ratio] 14.2 mg/mg 10-20 [facility] - Hematology and Cell countsOrdered By: Dr. Harris on 11-12-2022 Erythrocyte distribution width (RBC) [Entitic vol] 38.0 fL 35.1-43.9 [facility] Erythrocyte distribution width (RBC) [Ratio] 11.7 % 11.6-14.6 [facility] Immature granulocytes/100 WBC (Bld) 0.300 % 0.0-0.9 [facility] Comment on above: IG% - Immature Granu locytes (promyelocytes, myelocytes and metamyelocytes) > 1% indicates that a LEFT SHIFT is Present. MCH (RBC) [Entitic mass] 28.4 pg 25.0-35.0 [facility] Nucleated RBC/100 WBC (Bld) [Ratio] 0 % 0-5 [facility] MCHC Auto (RBC) [Mass/Vol]Or dered By: Dr. Harris on 11-12-2022 MCHC (RBC) [Mass/Vol] 32.3 g/dL 32-36 [facility] Mucus LM Ql (Urine sed)Order ed By: Dr. Harris on 11-12-2022 Mucus Ql (Urine sed) 0 SEEN /hpf [facility] Nitrite Test strip Ql (U)Ord ered By: Dr. Harris on 11-12-2022 Nitrite Ql (U) Negative Negative [facility] No Panel InformationOrdered By: Dr. Harris on 11-12-2022 Estimated Creatinine Clearance Calc 94.47 ml/min [facility] Estimated GFR (MDRD) [facility] Comment on above: Test not performedAf rican [place] GFR Calc Estimated GFR (MDRD) Non-Af [facility] Comment on above: Test not performedNo n- GFR Calc Platelets bldOrdered By: Dr. Harris on 11-12-2022 Platelets (Bld) [#/Vol] 353 10*3/uL 150-450 [facility] Protein Test strip Ql (U)Ord ered By: Dr. Harris on 11-12-2022 Protein Ql (U) 15 mg/dl Negative [facility] Serum or plasma albumin vel urement (mass/volume)Ordered By: Dr. Harris on 11-12-2022 Albumin [Mass/Vol] 4.0 g/dL 3.2-5.0 [facility] Serum or plasma albumin/glob ulin mass ratioOrdered By: Dr. Harris on 11-12-2022 Albumin/Globulin [Mass ratio] 1.1 {ratio} 0.9-2.4 [facility] Serum or plasma calcium vel urement (mass/volume)Ordered By: Dr. Harris on 11-12-2022 Calcium [Mass/Vol] 9.5 mg/dL 8.5-10.1 [facility] Serum or plasma creatinine m easurement (mass/volume)Ordered By: Dr. Harris on 11-12-2022 Creatinine [Mass/Vol] 0.91 mg/dL 0.55-1.02 [facility] Comment on above: The validity of the calculated GFR & GFRAA in patients over 70 years has not been determined. Clinical correlation is essential. Serum or plasma urea nitroge n measurement (mass/volume)Ordered By: Dr. Harris on 11-12-2022 Urea nitrogen [Mass/Vol] 13 mg/dL 7-18 [facility] Squamous epithelial cells de tection in urine sediment by light microscopyOrdered By: Dr. Harris on 11-12-2022 Epithelial cells.squamous LM Ql (Urine sed) 0 SEEN /hpf 5-10 [facility] Thin prep Papanicolaou smear with manual screeningOrdered By: Dr. Harris on 11-12-2022 Thin prep Papanicolaou smear with manual screening 18 U/L 15-37 [facility] Thin prep Papanicolaou smear with manual screening 6 5-15 [facility] Urine blood detectionOrdered By: Dr. Harris on 11-12-2022 RBC Ql (U) 150 /ul Negative [facility] RBC Ql (U) 0 SEEN /hpf 0-5 [facility] Urine clarityOrdered By: Dr. Harris on 11-12-2022 Clarity (U) Clear Clear [facility] Urine color determinationOrd ered By: Dr. Harris on 11-12-2022 Color (U) Yellow Yellow [facility] Urine glucose detectionOrder ed By: Dr. Harris on 11-12-2022 Glucose Ql (U) Normal mg/dl Normal [facility] Urine leukocyte esterase det ection by dipstickOrdered By: Dr. Harris on 11-12-2022 Leukocyte esterase Test strip Ql (U) Negative Negative [facility] Urine pHOrdered By: Dr. Carrington jones on 11-12-2022 pH (U) 7.0 [pH] 5.0 - 8.0 [facility] Urine sediment bacteria coun t by microscopy (number/high power field)Ordered By: Dr. Harris on 11-12-2022 Bacteria LM.HPF (Urine sed) [#/Area] 0 /[HPF] None Seen [facility] Urine specific gravity measu rementOrdered By: Dr. Harris on 11-12-2022 Specific gravity (U) [Rel density] 1.010 1.002-1.030 [facility] Urobilinogen Auto test strip Ql (U)Ordered By: Dr. Harris on 11-12-2022 Urobilinogen Ql (U) Normal mg/dl Normal [facility] 2019 CORONAVIRUSon SARS-CoV-2 (COVID-19) RNA JAIRON+probe Ql (Resp) SARS-CoV-2 (Agent of COVID-19) Not Detected by RT-PCR or equivalent method. Not Detected [facility] Absolute lymphocyte countOrd ered By: Dr. De La Torre on 08-26-2022 Lymphocytes Auto (Unsp spec) [#/Vol] 0.76 10*3/uL 0.83-4.51 [facility] Basophil percentageOrdered B y: Dr. De La Torre on 08-26-2022 Basophils/100 WBC (Bld) 0.2 % 0-1 [facility] Bilirubin [Mass/Vol] 0.70 mg/dL 0.20-1.00 [facility] Comment on above: For patients on eltr ombopag therapy, use of Dimension [place] TBIL is not recommended. Chloride [Moles/Vol] 104 mmol/L 98-107 [facility] Eosinophils/100 WBC (Bld) 0.5 % 0-3 [facility] Glucose [Mass/Vol] 104 mg/dL 74-106 [facility] Comment on above: Fasting Glucose resu lt from 100 to 125 mg/dL suggests IMPAIRED HOMEOSTASIS per A.D.A. criteria. Neutrophils (Bld) [#/Vol] 11.0 10*3/uL 2.0-7.7 [facility] Neutrophils/100 WBC (Bld) 86.4 % 34-64 [facility] Potassium [Moles/Vol] 3.2 mmol/L 3.5-5.1 [facility] Protein [Mass/Vol] 8.4 g/dL 6.4-8.2 [facility] Sodium [Moles/Vol] 138 mmol/L 136-145 [facility] WBC (Bld) [#/Vol] 12.8 10*3/uL 4.5-13.0 [facility] Blood erythrocytes count (nu mber/volume)Ordered By: Dr. De La Torre on 08-26-2022 RBC (Bld) [#/Vol] 5.04 10*6/uL 4.1-4.8 [facility] Blood hemoglobin measurement (mass/volume)Ordered By: Dr. De La Torre on 08-26-2022 Hemoglobin (Bld) [Mass/Vol] 14.6 g/dL 12.0-15.0 [facility] Blood lymphocytes/100 leukoc ytesOrdered By: Dr. De La Torre on 08-26-2022 Lymphocytes/100 WBC (Bld) 5.9 % 25-45 [facility] Blood monocytes/100 leukocyt esOrdered By: Dr. De La Torre on 08-26-2022 Monocytes/100 WBC (Bld) 6.7 % 3-6 [facility] Blood platelet mean volumeOr dered By: Dr. De La Torre on 08-26-2022 Platelet mean volume (Bld) [Entitic vol] 9.8 fL 6.2-12.0 [facility] Determination of erythrocyte mean corpuscular volume (MCV)Ordered By: Dr. De La Torre on 08-26-2022 MCV (RBC) [Entitic vol] 85.9 fL 78-96 [facility] Hematocrit Auto (Bld) [Volum e fraction]Ordered By: Dr. De La Torre on 08-26-2022 Hematocrit (Bld) [Volume fraction] 43.3 % 37-46 [facility] Influenza virus A and B and SARS-CoV-2 (COVID-19) Ag panel - Upper respiratory specimOrdered By: Dr. De La Torre on 08-26-2022 SARS-CoV-2 (COVID-19) RNA JAIRON+probe Ql (Resp) [facility] - Chemistry and C hemistry - challengeOrdered By: Dr. De La Torre on 08-26-2022 ALP [Catalytic activity/Vol] 67 U/L 47-119 [facility] ALT [Catalytic activity/Vol] 17 U/L 13-56 [facility] CO2 [Moles/Vol] 27.0 mmol/L 21.0-32.0 [facility] Globulin (S) [Mass/Vol] 4.4 g/dL 2.2-4.2 [facility] Urea nitrogen/Creatinine [Mass ratio] 11.1 mg/mg 10-20 [facility] - Hematology and Cell countsOrdered By: Dr. De La Torre on 08-26-2022 Erythrocyte distribution width (RBC) [Entitic vol] 36.5 fL 35.1-43.9 [facility] Erythrocyte distribution width (RBC) [Ratio] 11.7 % 11.6-14.6 [facility] Immature granulocytes/100 WBC (Bld) 0.300 % 0.0-0.9 [facility] Comment on above: IG% - Immature Granu locytes (promyelocytes, myelocytes and metamyelocytes) > 1% indicates that a LEFT SHIFT is Present. MCH (RBC) [Entitic mass] 29.0 pg 25.0-35.0 [facility] Nucleated RBC/100 WBC (Bld) [Ratio] 0 % 0-5 [facility] MCHC Auto (RBC) [Mass/Vol]Or dered By: Dr. De La Torre on 08-26-2022 MCHC (RBC) [Mass/Vol] 33.7 g/dL 32-36 [facility] No Panel InformationOrdered By: Dr. De La Torre on 08-26-2022 Estimated Creatinine Clearance Calc 106.31 ml/min [facility] Estimated GFR (MDRD) [facility] Comment on above: Test not performedAf rican Tunisian GFR Calc Estimated GFR (MDRD) Non-Af [facility] Comment on above: Test not performedNo n- GFR Calc Platelets bldOrdered By: Dr. De La Torre on 08-26-2022 Platelets (Bld) [#/Vol] 305 10*3/uL 150-450 [facility] ROUTINE FLU A/B + RSVon FLUAV RNA JAIRON+probe Ql (Unsp spec) Negative Negative for Influenza A by RT-PCR [facility] FLUBV RNA JAIRON+probe Ql (Unsp spec) Negative Negative for Influenza B by RT-PCR [facility] RSV A RNA JAIRON+probe Ql (Unsp spec) Negative Negative for Respiratory Syncytial Virus (RSV) by PCR [facility] Serum heterophile antibody d etectionOrdered By: Dr. De La Torre on 08-26-2022 Heterophile Ab Ql (S) Negative Negative [facility] Serum or plasma albumin vel urement (mass/volume)Ordered By: Dr. De La Torre on 08-26-2022 Albumin [Mass/Vol] 4.0 g/dL 3.2-5.0 [facility] Serum or plasma albumin/glob ulin mass ratioOrdered By: Dr. De La Torre on 08-26-2022 Albumin/Globulin [Mass ratio] 0.9 {ratio} 0.9-2.4 [facility] Serum or plasma calcium vel urement (mass/volume)Ordered By: Dr. De La Torre on 08-26-2022 Calcium [Mass/Vol] 9.3 mg/dL 8.5-10.1 [facility] Serum or plasma creatinine m easurement (mass/volume)Ordered By: Dr. De La Torre on 08-26-2022 Creatinine [Mass/Vol] 0.81 mg/dL 0.55-1.02 [facility] Comment on above: The validity of the calculated GFR & GFRAA in patients over 70 years has not been determined. Clinical correlation is essential. Serum or plasma urea nitroge n measurement (mass/volume)Ordered By: Dr. De La Torre on 08-26-2022 Urea nitrogen [Mass/Vol] 9 mg/dL 7-18 [facility] Thin prep Papanicolaou smear with manual screeningOrdered By: Dr. De La Torre on 08-26-2022 Thin prep Papanicolaou smear with manual screening 17 U/L 15-37 [facility] Thin prep Papanicolaou smear with manual screening 7 5-15 [facility] STREP A MOLECULAR (POC)on Procedural Control Valid [facility] Strep A (POCT) Negative Negative [facility] UA DIP, URINE (POC)on 2021 BILIRUBIN UA (POCT) Small Abnormal Negative [facility] CLARITY UA (POCT) Clear [facility] COLOR UA (POCT) Yellow [facility] GLUCOSE UA (POCT) Negative Negative mg/dL [facility] HEMOGLOBIN/BLOOD UA (POCT) Negative Negative [facility] KETONE UA (POCT) Negative Negative mg/[facility]) Negative [facility] NITRITE UA (POCT) Negative Negative [facility] PH UA (POCT) 5.5 4.5 - 8.0 [facility] Protein Ql (U) Trace Abnormal Negative mg/dL [facility] SPECIFIC GRAVITY UA (POCT) >=1.030 1.005 - 1.030 [facility] UROBILINOGEN UA (POCT) 0.2 E.U./dL Normal E.U./ dL [facility] Influenza virus A and B and SARS-CoV-2 (COVID-19) Ag panel - Upper respiratory specim SARS-CoV-2 (COVID-19) RNA JAIRON+probe Ql (Resp) [facility] Work Phone: Vital Signs Date Time Vital Sign Value Performing Clinician Facility 06-19-2025 07:55-0400 Body temperature 97.9 [degF] [employer] Work Phone: [facility] 06-19-2025 07:55-0400 Diastolic blood pressure 79 mm[Hg] [employer] Work Phone: [facility] 06-19-2025 07:55-0400 Heart rate 77 /min [employer] Work Phone: [facility] 06-19-2025 07:55-0400 Respiratory rate 18 /min [employer] Work Phone: [facility] 06-19-2025 07:55-0400 SaO2% (BldA) [Mass fraction] 98 % [employer] Work Phone: [facility] 06-19-2025 07:55-0400 Systolic blood pressure 126 mm[Hg] [employer] Work Phone: [facility] 06-17-2025 02:55-0400 Body weight 56.4 kg [employer] Work Phone: [facility] 06-16-2025 07:56-0400 Body temperature 98.1 [degF] Shikha Robb MD Work Phone: [facility] 06-16-2025 07:56-0400 Diastolic blood pressure 80 mm[Hg] Shikha Robb MD Work Phone: [facility] 06-16-2025 07:56-0400 Heart rate 80 /min Shikha Robb MD Work Phone: [facility] 06-16-2025 07:56-0400 Respiratory rate 18 /min Shikha Robb MD Work Phone: [facility] 06-16-2025 07:56-0400 Systolic blood pressure 127 mm[Hg] Shikha Robb MD Work Phone: [facility] 06-15-2025 16:00-0400 SaO2% (BldA) [Mass fraction] 97 % Shikha Robb MD Work Phone: [facility] 06-14-2025 16:05-0400 Body weight 58.8 kg Shikha Robb MD Work Phone: [facility] 06-13-2025 12:20-0400 Body temperature 97.2 [degF] Weston Alvin DO Work Phone: [facility] 06-13-2025 12:20-0400 Diastolic blood pressure 57 mm[Hg] Weston Alvin DO Work Phone: [facility] 06-13-2025 12:20-0400 Heart rate 72 /min Weston Alvin DO Work Phone: [facility] 06-13-2025 12:20-0400 Respiratory rate 18 /min Weston Alvin DO Work Phone: [facility] 06-13-2025 12:20-0400 Systolic blood pressure 112 mm[Hg] Weston Alvin DO Work Phone: [facility] 06-12-2025 18:00-0400 SaO2% (BldA) [Mass fraction] 97 % Weston Esquivel DO Work Phone: [facility] 06-12-2025 17:35-0400 Body weight 56 kg Weston Esquivel DO Work Phone: [facility] 03-27-2025 17:12-0400 Body mass index (BMI) [Ratio] 22.07 kg/m2 Sriram Terry VAC PRESS OPERATOR.SENIOR IT PROJECT MANAGER Work Phone: [facility] 03-27-2025 17:12-0400 Body temperature 97.9 [degF] Sriram Stewart VAC PRESS OPERATOR.SENIOR IT PROJECT MANAGER Work Phone: [facility] 03-27-2025 17:12-0400 Body weight 59.8 kg Sriram Stewart VAC PRESS OPERATOR.SENIOR IT PROJECT MANAGER Work Phone: [facility] 03-27-2025 17:12-0400 Diastolic blood pressure 72 mm[Hg] Sriram Terry VAC PRESS OPERATOR.SENIOR IT PROJECT MANAGER Work Phone: [facility] 03-27-2025 17:12-0400 Heart rate 95 /min Sriram Terry VAC PRESS OPERATOR.SENIOR IT PROJECT MANAGER Work Phone: [facility] 03-27-2025 17:12-0400 Respiratory rate 18 /min Sriram Stewart VAC PRESS OPERATOR.SENIOR IT PROJECT MANAGER Work Phone: [facility] 03-27-2025 17:12-0400 SaO2% (BldA) [Mass fraction] 98 % Sriram Stewart VAC PRESS OPERATOR.SENIOR IT PROJECT MANAGER Work Phone: [facility] 03-27-2025 17:12-0400 Systolic blood pressure 100 mm[Hg] Sriram Terry VAC PRESS OPERATOR.SENIOR IT PROJECT MANAGER Work Phone: [facility] 03-22-2025 08:25-0400 Diastolic blood pressure 48 mm[Hg] Demetra May DO Work Phone: [facility] 03-22-2025 08:25-0400 Systolic blood pressure 102 mm[Hg] Demetra May DO Work Phone: [facility] 03-22-2025 04:50-0400 Body temperature 97.7 [degF] Demetra May DO Work Phone: [facility] 03-22-2025 04:50-0400 Heart rate 62 /min Demetra May DO Work Phone: [facility] 03-22-2025 04:50-0400 Respiratory rate 16 /min Demetra May DO Work Phone: [facility] 03-21-2025 21:45-0400 SaO2% (BldA) [Mass fraction] 98 % Demetra May DO Work Phone: [facility] 03-20-2025 17:39-0400 Body height 165 cm Demetra May DO Work Phone: [facility] 03-20-2025 17:39-0400 Body mass index (BMI) [Ratio] 21.49 kg/m2 Demetra May DO Work Phone: [facility] 03-20-2025 17:39-0400 Body weight 58.5 kg Demetra May DO Work Phone: [facility] 03-17-2025 06:08-0400 Body temperature 98.7 [degF] Dr. Mitzy Fung MD Work Phone: [facility] 03-17-2025 06:08-0400 Diastolic blood pressure 61 mm[Hg] Dr. Mitzy Fung MD Work Phone: [facility] 03-17-2025 06:08-0400 Heart rate 87 /min Dr. Mitzy Fung MD Work Phone: [facility] 03-17-2025 06:08-0400 Respiratory rate 18 /min Dr. Mitzy Fung MD Work Phone: [facility] 03-17-2025 06:08-0400 SaO2% (BldA) [Mass fraction] 98 % Dr. Mitzy Fung MD Work Phone: 2(562)065-262557 [place] [address] 03-17-2025 06:08-0400 Systolic blood pressure 106 mm[Hg] Dr. Mitzy Fung MD Work Phone: 2(524)645-229217 [place] [address] 03-17-2025 04:09-0400 Body height 162.[address] Mitzy Fung MD Work Phone: 3(088)719-079217 [place] [address] 03-17-2025 04:09-0400 Body mass index (BMI) [Percentile] Per age and sex 56.8 % Dr. Mitzy Fung MD Work Phone: 0(948)826-952517 [place] [address] 03-17-2025 04:09-0400 Body mass index (BMI) [Ratio] 22.3 kg/m2 Dr. Mitzy Fung MD Work Phone: 0(425)718-211217 [place] [address] 03-17-2025 04:09-0400 Body weight [address] Mitzy Fung MD Work Phone: 1(845)642-371517 [place] [address] 02-21-2025 03:36-0400 Body temperature 98.4 [degF] Dr. Mitzy Fung MD Work Phone: 9(909)867-141117 [place] [address] 02-21-2025 03:36-0400 Diastolic blood pressure 68 mm[Hg] Dr. Mitzy Fung MD Work Phone: 4(480)402-020917 [place] [address] 02-21-2025 03:36-0400 Heart rate 74 /min Dr. Mitzy Fung MD Work Phone: 4(095)202-599317 [place] [address] 02-21-2025 03:36-0400 Respiratory rate 16 /min Dr. Mitzy Fung MD Work Phone: 3(473)239-701917 [place] [address] 02-21-2025 03:36-0400 SaO2% (BldA) [Mass fraction] 99 % Dr. Mitzy Fung MD Work Phone: 8(028)167-334117 [place] [address] 02-21-2025 03:36-0400 Systolic blood pressure 115 mm[Hg] Dr. Mitzy Fung MD Work Phone: 6(961)519-686417 [place] [address] 02-21-2025 00:58-0400 Body height 162.[address] Mitzy Fung MD Work Phone: 6(324)828-127817 [place] [address] 02-21-2025 00:58-0400 Body mass index (BMI) [Percentile] Per age and sex 50 % Dr. Mitzy Fung MD Work Phone: 1(209)232-019617 [place] [address] 02-21-2025 00:58-0400 Body mass index (BMI) [Ratio] 21.7 kg/m2 Dr. Mitzy Fung MD Work Phone: 0(100)851-254517 [place] [address] 02-21-2025 00:58-0400 Body weight 57.[address] Mitzy Fung MD Work Phone: 1(868)434-539517 [place] [address] 02-05-2025 12:06-0400 Body temperature 98.2 [degF] Dr. Mitzy Fung MD Work Phone: 8(425)541-385617 [place] [address] 02-05-2025 12:06-0400 Diastolic blood pressure 74 mm[Hg] Dr. Mitzy Fung MD Work Phone: 3(041)704-865217 [place] [address] 02-05-2025 12:06-0400 Heart rate 78 /min Dr. Mitzy Fung MD Work Phone: 4(744)625-695117 [place] [address] 02-05-2025 12:06-0400 Respiratory rate 16 /min Dr. Mitzy Fung MD Work Phone: 4(357)375-034817 [place] [address] 02-05-2025 12:06-0400 SaO2% (BldA) [Mass fraction] 97 % Dr. Mitzy Fung MD Work Phone: 1(672)441-043517 [place] [address] 02-05-2025 12:06-0400 Systolic blood pressure 122 mm[Hg] Dr. Mitzy Fung MD Work Phone: 6(191)140-761917 [place] [address] 02-05-2025 09:26-0400 Body height 162.[address] Mitzy Fung MD Work Phone: 9(903)947-292017 [place] [address] 02-05-2025 09:26-0400 Body mass index (BMI) [Percentile] Per age and sex 43.8 % Dr. Mitzy Fung MD Work Phone: 3(017)109-461817 [place] [address] 02-05-2025 09:26-0400 Body mass index (BMI) [Ratio] 21.2 kg/m2 Dr. Mitzy Fung MD Work Phone: 6(726)487-458517 [place] [address] 02-05-2025 09:26-0400 Body weight 56.[address] Mitzy Fung MD Work Phone: 8(913)068-695317 [place] [address] 01-23-2025 11:04-0400 Body temperature 98 [degF] Dr. Mitzy Fung MD Work Phone: 5(527)160-835717 [place] [address] 01-23-2025 11:04-0400 Diastolic blood pressure 71 mm[Hg] Dr. Mitzy Fung MD Work Phone: 5(818)726-098217 [place] [address] 01-23-2025 11:04-0400 Heart rate 98 /min Dr. Mitzy Fung MD Work Phone: 6(191)506-972517 [place] [address] 01-23-2025 11:04-0400 Respiratory rate 19 /min Dr. Mitzy Fung MD Work Phone: 0(797)410-418317 [place] [address] 01-23-2025 11:04-0400 SaO2% (BldA) [Mass fraction] 1 % Dr. Mitzy Fung MD Work Phone: 8(990)296-615617 [place] [address] 01-23-2025 11:04-0400 Systolic blood pressure 140 mm[Hg] Dr. Mitzy Fung MD Work Phone: 5(924)042-619817 [place] [address] 01-23-2025 09:19-0400 Body height [address] Mitzy Fung MD Work Phone: 3(932)095-935717 [place] [address] 01-23-2025 09:19-0400 Body mass index (BMI) [Percentile] Per age and sex 46.5 % Dr. Mitzy Fung MD Work Phone: 3(718)867-763317 [place] [address] 01-23-2025 09:19-0400 Body mass index (BMI) [Ratio] 21.4 kg/m2 Dr. Mitzy Fung MD Work Phone: 4(220)049-925417 [place] [address] 01-23-2025 09:19-0400 Body weight 58.[address] Mitzy Fung MD Work Phone: 1(779)671-869017 [place] [address] 01-20-2025 19:00-0400 Body temperature 98 [degF] Dr. Mitzy Fung MD Work Phone: 7(241)574-143717 [place] [address] 01-20-2025 19:00-0400 Diastolic blood pressure 57 mm[Hg] Dr. Mitzy Fung MD Work Phone: [facility] 01-20-2025 19:00-0400 Heart rate 69 /min Dr. Mitzy Fung MD Work Phone: [facility] 01-20-2025 19:00-0400 Respiratory rate 18 /min Dr. Mitzy Fung MD Work Phone: 3(274)523-352157 [place] [address] 01-20-2025 19:00-0400 SaO2% (BldA) [Mass fraction] 100 % Dr. Mitzy Fung MD Work Phone: 6(064)331-992757 [place] [address] 01-20-2025 19:00-0400 Systolic blood pressure 116 mm[Hg] Dr. Mtizy Fung MD Work Phone: 0(254)339-888757 [place] [address] 01-20-2025 15:24-0400 Body height 165.[address] Mitzy Fung MD Work Phone: 8(950)977-494957 [place] [address] 01-20-2025 15:24-0400 Body mass index (BMI) [Percentile] Per age and sex 52.6 % Dr. Mitzy Fung MD Work Phone: 1(944)167-081857 [place] [address] 01-20-2025 15:24-0400 Body mass index (BMI) [Ratio] 21.9 kg/m2 Dr. Mitzy Fung MD Work Phone: 2(737)357-333357 [place] [address] 01-20-2025 15:24-0400 Body weight 59.[address] Mitzy Fung MD Work Phone: [facility] 08-27-2024 11:54-0500 Body mass index (BMI) [Ratio] 21.08 kg/m2 Otilio Enriquez APRN.SENIOR IT PROJECT MANAGER Work Phone: [facility] 08-27-2024 11:54-0500 Body temperature 98.4 [degF] Otilio Enriquez APRN.SENIOR IT PROJECT MANAGER Work Phone: [facility] 08-27-2024 11:54-0500 Body weight 57.1 kg Otilio Enriquez APRN.SENIOR IT PROJECT MANAGER Work Phone: [facility] 08-27-2024 11:54-0500 Diastolic blood pressure 78 mm[Hg] Otilio Praisler-Wood [employer]AC PRESS OPERATOR.SENIOR IT PROJECT MANAGER Work Phone: [facility] 08-27-2024 11:54-0500 Heart rate 106 /min Otilio Praisler-Wood VAC PRESS OPERATOR.SENIOR IT PROJECT MANAGER Work Phone: [facility] 08-27-2024 11:54-0500 Respiratory rate 20 /min Otilio Praisler-Wood [employer]AC PRESS OPERATOR.SENIOR IT PROJECT MANAGER Work Phone: [facility] 08-27-2024 11:54-0500 SaO2% (BldA) [Mass fraction] 97 % Otilio P[employer]ler-Wood VAC PRESS OPERATOR.SENIOR IT PROJECT MANAGER Work Phone: [facility] 08-27-2024 11:54-0500 Systolic blood pressure 110 mm[Hg] Otilio Praisler-Wood VAC PRESS OPERATOR.SENIOR IT PROJECT MANAGER Work Phone: [facility] 01-26-2024 16:26-0400 Body temperature 97.9 [degF] Sandro Moomaw VAC PRESS OPERATOR.SENIOR IT PROJECT MANAGER Work Phone: [facility] 01-26-2024 16:26-0400 Body weight 60 kg Sandro Moomaw VAC PRESS OPERATOR.SENIOR IT PROJECT MANAGER Work Phone: [facility] 01-26-2024 16:26-0400 Diastolic blood pressure 60 mm[Hg] Sandro Moomaw VAC PRESS OPERATOR.SENIOR IT PROJECT MANAGER Work Phone: [facility] 01-26-2024 16:26-0400 Heart rate 80 /min Sandro Moomaw VAC PRESS OPERATOR.SENIOR IT PROJECT MANAGER Work Phone: [facility] 01-26-2024 16:26-0400 Respiratory rate 16 /min Sandro Moomaw VAC PRESS OPERATOR.SENIOR IT PROJECT MANAGER Work Phone: [facility] 01-26-2024 16:26-0400 SaO2% (BldA) [Mass fraction] 99 % Sandro Moomaw VAC PRESS OPERATOR.SENIOR IT PROJECT MANAGER Work Phone: [facility] 01-26-2024 16:26-0400 Systolic blood pressure 102 mm[Hg] Sandro Moomaw VAC PRESS OPERATOR.SENIOR IT PROJECT MANAGER Work Phone: [facility] 12-29-2023 16:49-0400 Body temperature 97.3 [degF] Otilio Praisler-Wood VAC PRESS OPERATOR.SENIOR IT PROJECT MANAGER Work Phone: [facility] 12-29-2023 16:49-0400 Body weight 58.6 kg Otilio Praisler-Wood VAC PRESS OPERATOR.SENIOR IT PROJECT MANAGER Work Phone: [facility] 12-29-2023 16:49-0400 Diastolic blood pressure 79 mm[Hg] Otilio Praisler-Wood VAC PRESS OPERATOR.SENIOR IT PROJECT MANAGER Work Phone: [facility] 12-29-2023 16:49-0400 Heart rate 94 /min Otilio P[employer]ler-Wood VAC PRESS OPERATOR.SENIOR IT PROJECT MANAGER Work Phone: [facility] 12-29-2023 16:49-0400 Respiratory rate 18 /min Otilio Praisler-Wood VAC PRESS OPERATOR.SENIOR IT PROJECT MANAGER Work Phone: [facility] 12-29-2023 16:49-0400 SaO2% (BldA) [Mass fraction] 100 % Otilio P[employer]ler-Wood VAC PRESS OPERATOR.SENIOR IT PROJECT MANAGER Work Phone: [facility] 12-29-2023 16:49-0400 Systolic blood pressure 129 mm[Hg] Otilio P[employer]ler-Wood VAC PRESS OPERATOR.SENIOR IT PROJECT MANAGER Work Phone: [facility] 12-24-2023 09:16-0400 Body temperature 99 [degF] [facility] 12-24-2023 09:16-0400 Diastolic blood pressure 88 mm[Hg] [facility] 12-24-2023 09:16-0400 Heart rate 58 /min [facility] 12-24-2023 09:16-0400 Respiratory rate 16 /min [facility] 12-24-2023 09:16-0400 SaO2% (BldA) [Mass fraction] 100 % [facility] 12-24-2023 09:16-0400 Systolic blood pressure 121 mm[Hg] [facility] 12-24-2023 07:12-0400 Body height 165.1 cm [facility] 12-24-2023 07:12-0400 Body mass index (BMI) [Percentile] Per age and sex 46.6 % [facility] 12-24-2023 07:12-0400 Body mass index (BMI) [Ratio] 21.2 kg/m2 [facility] 12-24-2023 07:12-0400 Body weight 58 kg [facility] 11-14-2023 18:27-0400 Body temperature 98.4 [degF] [facility] 11-14-2023 18:27-0400 Diastolic blood pressure 59 mm[Hg] [facility] 11-14-2023 18:27-0400 Heart rate 77 /min [facility] 11-14-2023 18:27-0400 Respiratory rate 16 /min [facility] 11-14-2023 18:27-0400 SaO2% (BldA) [Mass fraction] 100 % [facility] 11-14-2023 18:27-0400 Systolic blood pressure 113 mm[Hg] [facility] 11-14-2023 13:07-0400 Body height 165.1 cm [facility] 11-14-2023 13:07-0400 Body mass index (BMI) [Percentile] Per age and sex 60.1 % [facility] 11-14-2023 13:07-0400 Body mass index (BMI) [Ratio] 22.3 kg/m2 [facility] 11-14-2023 13:07-0400 Body weight 60.8 kg [facility] 11-14-2023 12:40-0400 Body temperature 97.5 [degF] Latasha Cuadra APRN.SENIOR IT PROJECT MANAGER Work Phone: [facility] 11-14-2023 12:40-0400 Body weight 60.9 kg Latasha Cuadra APRN.SENIOR IT PROJECT MANAGER Work Phone: [facility] 11-14-2023 12:40-0400 Diastolic blood pressure 62 mm[Hg] Latasha Cuadra APRN.SENIOR IT PROJECT MANAGER Work Phone: [facility] 11-14-2023 12:40-0400 Heart rate 74 /min Latasha Khalif VAC PRESS OPERATOR.SENIOR IT PROJECT MANAGER Work Phone: [facility] 11-14-2023 12:40-0400 Respiratory rate 21 /min Latasha Cuadra VAC PRESS OPERATOR.SENIOR IT PROJECT MANAGER Work Phone: [facility] 11-14-2023 12:40-0400 SaO2% (BldA) [Mass fraction] 99 % Latasha Cuadra VAC PRESS OPERATOR.SENIOR IT PROJECT MANAGER Work Phone: [facility] 11-14-2023 12:40-0400 Systolic blood pressure 120 mm[Hg] Latasha Cuadra VAC PRESS OPERATOR.SENIOR IT PROJECT MANAGER Work Phone: [facility] 10-30-2023 16:02-0500 Body temperature 97.81 [degF] Lillian Cruz VAC PRESS OPERATOR.SENIOR IT PROJECT MANAGER Work Phone: [facility] 10-30-2023 16:02-0500 Body weight 58.8 kg Lillian Cruz VAC PRESS OPERATOR.SENIOR IT PROJECT MANAGER Work Phone: [facility] 10-30-2023 16:02-0500 Diastolic blood pressure 74 mm[Hg] Lillian Cruz VAC PRESS OPERATOR.SENIOR IT PROJECT MANAGER Work Phone: [facility] 10-30-2023 16:02-0500 Heart rate 102 /min Lillian Cruz VAC PRESS OPERATOR.SENIOR IT PROJECT MANAGER Work Phone: [facility] 10-30-2023 16:02-0500 Respiratory rate 18 /min Lillian Cruz VAC PRESS OPERATOR.SENIOR IT PROJECT MANAGER Work Phone: [facility] 10-30-2023 16:02-0500 SaO2% (BldA) [Mass fraction] 99 % Lillian Cruz VAC PRESS OPERATOR.SENIOR IT PROJECT MANAGER Work Phone: [facility] 10-30-2023 16:02-0500 Systolic blood pressure 114 mm[Hg] Lillian Cruz VAC PRESS OPERATOR.SENIOR IT PROJECT MANAGER Work Phone: [facility] 09-25-2023 05:12-0500 Body temperature 98 [degF] [facility] 09-25-2023 05:12-0500 Diastolic blood pressure 83 mm[Hg] [facility] 09-25-2023 05:12-0500 Heart rate 72 /min [facility] 09-25-2023 05:12-0500 Respiratory rate 18 /min [facility] 09-25-2023 05:12-0500 SaO2% (BldA) [Mass fraction] 99 % [facility] 09-25-2023 05:12-0500 Systolic blood pressure 129 mm[Hg] [facility] 09-25-2023 04:30-0500 Body height 165.1 cm [facility] 09-25-2023 04:30-0500 Body mass index (BMI) [Percentile] Per age and sex 59.5 % [facility] 09-25-2023 04:30-0500 Body mass index (BMI) [Ratio] 22.2 kg/m2 [facility] 09-25-2023 04:30-0500 Body weight 60.7 kg [facility] 07-28-2023 18:54-0500 Body temperature 98.1 [degF] Ken Dawson VAC PRESS OPERATOR.SENIOR IT PROJECT MANAGER Work Phone: [facility] 07-28-2023 18:54-0500 Body weight 59.78 kg Ken Dawson VAC PRESS OPERATOR.SENIOR IT PROJECT MANAGER Work Phone: [facility] 07-28-2023 18:54-0500 Diastolic blood pressure 70 mm[Hg] Ken Dawson VAC PRESS OPERATOR.SENIOR IT PROJECT MANAGER Work Phone: [facility] 07-28-2023 18:54-0500 Heart rate 83 /min Ken Dawson VAC PRESS OPERATOR.SENIOR IT PROJECT MANAGER Work Phone: [facility] 07-28-2023 18:54-0500 Respiratory rate 16 /min Ken Dawson VAC PRESS OPERATOR.SENIOR IT PROJECT MANAGER Work Phone: [facility] 07-28-2023 18:54-0500 SaO2% (BldA) [Mass fraction] 100 % Ken Dawson VAC PRESS OPERATOR.SENIOR IT PROJECT MANAGER Work Phone: [facility] 07-28-2023 18:54-0500 Systolic blood pressure 102 mm[Hg] Ken Dawson VAC PRESS OPERATOR.SENIOR IT PROJECT MANAGER Work Phone: [facility] 07-04-2023 09:16-0500 Body mass index (BMI) [Percentile] Per age and sex 78.9 % [facility] 07-04-2023 09:16-0500 Body mass index (BMI) [Ratio] 24.5 kg/m2 [facility] 07-04-2023 09:16-0500 Body temperature 98.2 [degF] [facility] 07-04-2023 09:16-0500 Body weight 64.7 kg [facility] 07-04-2023 09:16-0500 Diastolic blood pressure 109 mm[Hg] [facility] 07-04-2023 09:16-0500 Heart rate 114 /min [facility] 07-04-2023 09:16-0500 Respiratory rate 23 /min [facility] 07-04-2023 09:16-0500 SaO2% (BldA) [Mass fraction] 98 % [facility] 07-04-2023 09:16-0500 Systolic blood pressure 123 mm[Hg] [facility] 02-04-2023 21:31-0400 Body height 167.64 cm [facility] 02-04-2023 21:31-0400 Body mass index (BMI) [Percentile] Per age and sex 62.8 % [facility] 02-04-2023 21:31-0400 Body mass index (BMI) [Ratio] 22.3 kg/m2 [facility] 02-04-2023 21:31-0400 Body temperature 99.5 [degF] [facility] 02-04-2023 21:31-0400 Body weight 62.7 kg [facility] 02-04-2023 21:31-0400 Diastolic blood pressure 70 mm[Hg] [facility] 02-04-2023 21:31-0400 Heart rate 108 /min [facility] 02-04-2023 21:31-0400 Respiratory rate 18 /min [facility] 02-04-2023 21:31-0400 SaO2% (BldA) [Mass fraction] 99 % [facility] 02-04-2023 21:31-0400 Systolic blood pressure 108 mm[Hg] [facility] 11-28-2022 18:28-0400 Respiratory rate 18 /min [facility] 11-28-2022 14:19-0400 Body height 162.56 cm [facility] 11-28-2022 14:19-0400 Body mass index (BMI) [Percentile] Per age and sex 63.5 % [facility] 11-28-2022 14:19-0400 Body mass index (BMI) [Ratio] 22.3 kg/m2 [facility] 11-28-2022 14:19-0400 Body temperature 98 [degF] [facility] 11-28-2022 14:19-0400 Body weight 58.96 kg [facility] 11-28-2022 14:19-0400 Diastolic blood pressure 85 mm[Hg] [facility] 11-28-2022 14:19-0400 Heart rate 96 /min [facility] 11-28-2022 14:19-0400 SaO2% (BldA) [Mass fraction] 100 % [facility] 11-28-2022 14:19-0400 Systolic blood pressure 129 mm[Hg] [facility] 11-18-2022 04:39-0400 Body temperature 98.2 [degF] [facility] 11-18-2022 04:39-0400 Diastolic blood pressure 68 mm[Hg] [facility] 11-18-2022 04:39-0400 Heart rate 79 /min [facility] 11-18-2022 04:39-0400 Respiratory rate 16 /min [facility] 11-18-2022 04:39-0400 SaO2% (BldA) [Mass fraction] 98 % [facility] 11-18-2022 04:39-0400 Systolic blood pressure 108 mm[Hg] [facility] 11-18-2022 01:45-0400 Body height 162.56 cm [facility] 11-18-2022 01:45-0400 Body mass index (BMI) [Percentile] Per age and sex 70.1 % [facility] 11-18-2022 01:45-0400 Body mass index (BMI) [Ratio] 23 kg/m2 [facility] 11-18-2022 01:45-0400 Body temperature 98.7 [degF] [facility] 11-18-2022 01:45-0400 Body weight 60.9 kg [facility] 11-18-2022 01:45-0400 Heart rate 93 /min [facility] 11-18-2022 01:45-0400 Respiratory rate 17 /min [facility] 11-18-2022 01:45-0400 SaO2% (BldA) [Mass fraction] 96 % [facility] 11-18-2022 01:41-0400 Diastolic blood pressure 65 mm[Hg] [facility] 11-18-2022 01:41-0400 Systolic blood pressure 103 mm[Hg] [facility] 11-12-2022 12:56-0400 Body temperature 96.9 [degF] [facility] 11-12-2022 12:56-0400 Diastolic blood pressure 62 mm[Hg] [facility] 11-12-2022 12:56-0400 Heart rate 74 /min [facility] 11-12-2022 12:56-0400 Respiratory rate 16 /min [facility] 11-12-2022 12:56-0400 SaO2% (BldA) [Mass fraction] 98 % [facility] 11-12-2022 12:56-0400 Systolic blood pressure 105 mm[Hg] [facility] 11-12-2022 09:49-0400 Body height 167.64 cm [facility] 11-12-2022 09:49-0400 Body mass index (BMI) [Percentile] Per age and sex 48.5 % [facility] 11-12-2022 09:49-0400 Body mass index (BMI) [Ratio] 21 kg/m2 [facility] 11-12-2022 09:49-0400 Body weight 59.2 kg [facility] 08-26-2022 11:28-0500 Respiratory rate 20 /min [facility] 08-26-2022 09:51-0500 Body height 167.64 cm [facility] Work Phone: 08-26-2022 09:51-0500 Body mass index (BMI) [Percentile] Per age and sex 58.1 % [facility] 08-26-2022 09:51-0500 Body mass index (BMI) [Ratio] 21.7 kg/m2 [facility] 08-26-2022 09:51-0500 Body temperature 97.4 [degF] [facility] 08-26-2022 09:51-0500 Body weight 61.23 kg [facility] 08-26-2022 09:51-0500 Diastolic blood pressure 86 mm[Hg] [facility] 08-26-2022 09:51-0500 Heart rate 106 /min [facility] 08-26-2022 09:51-0500 SaO2% (BldA) [Mass fraction] 99 % [facility] 08-26-2022 09:51-0500 Systolic blood pressure 121 mm[Hg] [facility] 08-25-2022 16:19-0500 Body temperature 100.09 [degF] Moe Montez MD Work Phone: [facility] 08-25-2022 16:19-0500 Body weight 58.06 kg Moe Montez MD Work Phone: [facility] 08-25-2022 16:19-0500 Diastolic blood pressure 86 mm[Hg] Moe Montez MD Work Phone: [facility] 08-25-2022 16:19-0500 Heart rate 109 /min Moe Montez MD Work Phone: [facility] 08-25-2022 16:19-0500 Respiratory rate 18 /min Moe Montez MD Work Phone: [facility] 08-25-2022 16:19-0500 SaO2% (BldA) [Mass fraction] 100 % Moe Montez MD Work Phone: [facility] 08-25-2022 16:19-0500 Systolic blood pressure 120 mm[Hg] Moe Montez MD Work Phone: [facility] 06-24-2022 08:19-0400 Body temperature 97.9 [degF] [facility] VAC PRESS OPERATOR.SENIOR IT PROJECT MANAGER Work Phone: [facility] 06-24-2022 08:19-0400 Body weight 61.33 kg [facility] VAC PRESS OPERATOR.SENIOR IT PROJECT MANAGER Work Phone: [facility] 06-24-2022 08:19-0400 Diastolic blood pressure 76 mm[Hg] Gus Pendle[place] VAC PRESS OPERATOR.SENIOR IT PROJECT MANAGER Work Phone: [facility] 06-24-2022 08:19-0400 Heart rate 101 /min Gus P[place]le[place] VAC PRESS OPERATOR.SENIOR IT PROJECT MANAGER Work Phone: [facility] 06-24-2022 08:19-0400 Respiratory rate 16 /min [facility] VAC PRESS OPERATOR.SENIOR IT PROJECT MANAGER Work Phone: [facility] 06-24-2022 08:19-0400 SaO2% (BldA) [Mass fraction] 98 % [facility] VAC PRESS OPERATOR.SENIOR IT PROJECT MANAGER Work Phone: [facility] 06-24-2022 08:19-0400 Systolic blood pressure 124 mm[Hg] Gus P[place] VAC PRESS OPERATOR.SENIOR IT PROJECT MANAGER Work Phone: [facility] 01-17-2022 13:00-0400 Body temperature 97.7 [degF] [facility] VAC PRESS OPERATOR.SENIOR IT PROJECT MANAGER Work Phone: [facility] 01-17-2022 13:00-0400 Body weight 60.06 kg [facility] VAC PRESS OPERATOR.SENIOR IT PROJECT MANAGER Work Phone: [facility] 01-17-2022 13:00-0400 Diastolic blood pressure 60 mm[Hg] [facility] VAC PRESS OPERATOR.SENIOR IT PROJECT MANAGER Work Phone: [facility] 01-17-2022 13:00-0400 Heart rate 90 /min [facility] VAC PRESS OPERATOR.SENIOR IT PROJECT MANAGER Work Phone: [facility] 01-17-2022 13:00-0400 Respiratory rate 16 /min [facility] VAC PRESS OPERATOR.SENIOR IT PROJECT MANAGER Work Phone: [facility] 01-17-2022 13:00-0400 SaO2% (BldA) [Mass fraction] 99 % Gus Corleylisa VAC PRESS OPERATOR.SENIOR IT PROJECT MANAGER Work Phone: [facility] 01-17-2022 13:00-0400 Systolic blood pressure 114 mm[Hg] Gus Corleylisa VAC PRESS OPERATOR.SENIOR IT PROJECT MANAGER Work Phone: [facility] Encounters Encounter Date Encounter Type Care Provider Facility Start: 06-17-2025 End: 06-19-2025 Evaluation [facility] management [facility] Comment on above: Post-tonsillectomy h emorrhage (Primary Dx) Start: 06-14-2025 End: 06-16-2025 Evaluation and management of inpatient Shikha Robb MD Work Phone: [facility] Comment on above: Peritonsillar absces s (Primary Dx); Pre-operative examination; Tonsillar abscess; Recurrent tonsillitis Start: 06-14-2025 End: 06-16-2025 Preprocedural examination done Shikha Robb MD Work Phone: [facility] Start: 06-12-2025 End: 06-13-2025 Evaluation and management of inpatient Weston Esquivel Work Phone: [facility] Comment on above: Peritonsillar absces s (Primary Dx) Start: 06-07-2025 End: 06-07-2025 ambulatory [facility] Start: 04-26-2025 End: 04-26-2025 ambulatory [facility] Start: 03-29-2025 End: 03-29-2025 ambulatory [facility] Start: 03-27-2025 End: 03-27-2025 Patient encounter procedure Sriram Stewart APRN.SENIOR IT PROJECT MANAGER Work Phone: [facility] Comment on above: Rash (Primary Dx) Start: 03-27-2025 End: 03-27-2025 ambulatory SRIRAM STEWART Facility:[facility] Start: 03-24-2025 End: 03-24-2025 ambulatory [facility] Start: 03-20-2025 End: 03-22-2025 Evaluation and management of inpatient Demetra Rendon DO Work Phone: [facility] Comment on above: Peritonsillar absces s (Primary Dx); Neck swelling; Hoarseness or changing voice; Trismus; Tonsillar abscess; Recurrent tonsillitis Start: 03-17-2025 End: 03-17-2025 Emergency department patient visit Dr. Mitzy Fung MD Work Phone: -Emergency Department Work Phone: Start: 03-13-2025 End: 03-13-[address] Mitzy Fung MD Work Phone: -Laboratory Specimen Start: 03-13-2025 End: 03-13-2025 Patient encounter procedure Javeir Penny [place] -Laboratory Specimen Work Phone: Start: 03-13-2025 End: 03-13-2025 ambulatory Javier Penny Facility:[facility] Start: 03-10-2025 ambulatory Mitzy [place] Facility: [facility] Start: 02-23-2025 End: 02-23-[address] Mitzy Fung MD Work Phone: -Ultrasound [facility] Start: 02-23-2025 End: 02-23-2025 Patient encounter procedure Teodoro Garcia DO -Ultrasound [facility] Work Phone: Start: 02-23-2025 End: 02-23-2025 ambulatory Mitzy [place] Facility:[facility] Start: 02-21-2025 End: 02-21-2025 Emergency department patient visit Dr. Mitzy Fung MD Work Phone: -Emergency Department Work Phone: Start: 02-21-2025 Non-patient / Non-visit Dr. Leny mi MD -[facility] Work Phone: Start: 02-05-2025 End: 02-05-2025 Emergency [...] by physician Lois Conde MD Work Phone: [facility] Comment on above: Weight loss; Family history of type 2 diabetes mellitus Start: 09-07-2024 End: 09-07-2024 ambulatory LOIS CONDE [facility] Start: 08-29-2024 End: 08-29-2024 ambulatory SELF REFERRED [facility] Start: 08-29-2024 End: 08-29-2024 ambulatory [facility] Facility:[facility] Start: 08-27-2024 End: 08-27-2024 ambulatory MITZY LARIOS TILINE Facility:[facility] Start: 08-27-2024 End: 08-27-2024 Patient encounter procedure Otilio Enriquez APRN.SENIOR IT PROJECT MANAGER Work Phone: [facility] Comment on above: Sore throat (Primary Dx); Pharyngitis, unspecified etiology; Wheezing; Viral URI with cough; Bronchitis Start: 06-15-2024 End: 06-15-[address] [facility] Facility:[facility] Start: 04-24-2024 End: 04-26-2024 Evaluation and management of inpatient NATANAEL HYDE Facility:[id number] Start: 04-23-2024 End: 04-24-2024 Emergency department patient visit Mitzy Fung Facility:[facility] Start: 01-26-2024 End: 01-26-2024 Patient encounter procedure Sandro Polo APRN.SENIOR IT PROJECT MANAGER Work Phone: [facility] Comment on above: Ear pain, right (Tanya sadiq Dx) Start: 12-29-2023 End: 12-29-2023 Patient encounter procedure Otilio Enriquez APRN.SENIOR IT PROJECT MANAGER Work Phone: [facility] Comment on above: Burning with urinati on (Primary Dx); Otalgia of right ear Start: 12-24-2023 End: 12-24-2023 Admission to same day surgery center [facility] Start: 12-24-2023 End: 12-24-2023 ambulatory [facility] Work Phone: Start: 11-14-2023 End: 11-14-2023 Emergency department patient visit [facility]-Emergency Department Work Phone: Start: 11-14-2023 End: 11-14-2023 Patient encounter procedure Latasha Cuadra VAC PRESS OPERATOR.SENIOR IT PROJECT MANAGER Work Phone: [facility] Comment on above: Pain in pelvis (Prim vivien Dx); Flank pain Start: 10-31-2023 Telephone encounter Moe Vines MD Work Phone: [facility] Comment on above: Results (Prince +) Start: 10-30-2023 End: 10-30-2023 Patient encounter procedure Lillian Cruz VAC PRESS OPERATOR.SENIOR IT PROJECT MANAGER Work Phone: [facility] Comment on above: Dysuria (Primary Dx) Start: 09-25-2023 End: 09-25-2023 Emergency department patient visit [facility]Emergency Department Work Phone: Start: 08-02-2023 End: 08-02-2023 Nursing evaluation of patient and report Nurse [facility] Work Phone: [facility] Comment on above: Urinary frequency (P rimary Dx) Start: 07-30-2023 Telephone encounter Lillian ruffin VAC PRESS OPERATOR.SENIOR IT PROJECT MANAGER Work Phone: [facility] Comment on above: Results Start: 07-28-2023 End: 07-28-2023 Patient encounter procedure Ken Dawson VAC PRESS OPERATOR.SENIOR IT PROJECT MANAGER Work Phone: [facility] Comment on above: Urinary frequency (P rimary Dx) Start: 07-04-2023 End: 07-04-2023 [facility] Start: 03-27-2023 End: 03-27-2023 ambulatory [facility] Work Phone: Start: 03-27-2023 End: 03-27-2023 Patient encounter procedure [facility]-Laboratory Work Phone: Start: 03-19-2023 End: 03-19-2023 ambulatory [facility] Work Phone: Start: 03-19-2023 End: 03-19-2023 Patient encounter procedure [facility]Laboratory Work Phone: Start: 02-04-2023 End: 02-04-2023 Emergency department patient visit [facility]Emergency Department Start: 12-01-2022 End: 12-01-2022 Patient encounter procedure [facility]Laboratory Start: 11-28-2022 End: 11-28-2022 Emergency department patient visit [facility]Emergency Department Start: 11-24-2022 End: 11-24-2022 Subsequent hospital visit by physician Codi Lemus APRN-SENIOR IT PROJECT MANAGER Work Phone: [facility] Comment on above: Hirsutism; Irregular menses Start: 11-18-2022 End: 11-18-2022 Admission to same day surgery center [facility] Start: 11-18-2022 End: 11-18-2022 ambulatory [facility] Work Phone: Start: 11-12-2022 End: 11-12-2022 Emergency department patient visit [facility]Emergency Department Start: 11-10-2022 End: 11-10-2022 ambulatory [facility] Work Phone: Start: 11-10-2022 End: 11-10-2022 Patient encounter procedure [facility]-Cat Scan, [facility] Start: 08-26-2022 Telephone encounter Oitlio Clinton APRN.SENIOR IT PROJECT MANAGER Work Phone: [facility] Comment on above: Results Start: 08-26-2022 End: 08-26-2022 Emergency department patient visit [facility]Emergency Department Start: 08-25-2022 End: 08-25-2022 Patient encounter procedure Moe Montez MD Work Phone: [facility] Comment on above: Sore throat (Primary Dx); Influenza-like illness Start: 06-25-2022 Telephone encounter Lillian Barnes augustin VAC PRESS OPERATOR.SENIOR IT PROJECT MANAGER Work Phone: [facility] Comment on above: Results, Lab Start: 06-24-2022 End: 06-24-2022 Patient encounter procedure Guswindy Munroe VAC PRESS OPERATOR.SENIOR IT PROJECT MANAGER Work Phone: [facility] Comment on above: Urinary frequency (P rimary Dx) Start: 01-17-2022 End: 01-17-2022 Patient encounter procedure Gus Shaneka VAC PRESS OPERATOR.SENIOR IT PROJECT MANAGER Work Phone: [facility] Comment on above: Abdominal pain, unsp ecified abdominal location (Primary Dx); Acute sinusitis, recurrence not specified, unspecified location Start: 11-20-2006 Patient encounter status Cora connell Shaneka VAC PRESS OPERATOR.SENIOR IT PROJECT MANAGER Work Phone: [facility] Work Phone: Procedures Date Procedure Procedure Detail Performing Clinician Start: 06-17-2025 Urine test visual color cmprsn gayles Tere Em PA-C Work Phone: Start: 06-17-2025 Antibody screen rbc each serum technique Melissa Rubin DO Work Phone: Start: 06-17-2025 Basic metabolic pane l calcium total Melissa Rubin DO Work Phone: Start: 06-15-2025 Level iii surg patho logy gross&microscopic exam Guy Novak MD Work Phone: Start: 06-15-2025 End: 06-15-2025 Tonsillectomy primary/secondary age 12/> Guy Novak MD Work Phone: Start: 06-14-2025 Ct soft tissue neck w/contrast material Reji Serna VAC PRESS OPERATOR-SENIOR IT PROJECT MANAGER Work Phone: Start: 06-14-2025 Urine test visual color cmprsn meths Reji Serna VAC PRESS OPERATOR-SENIOR IT PROJECT MANAGER Work Phone: Start: 06-14-2025 Basic metabolic pane l calcium total Mely Zheng DO Work Phone: Start: 06-12-2025 Ct soft tissue neck w/contrast material Weston Holland Alvin DO Work Phone: Start: 06-12-2025 Basic metabolic pane l calcium total Weston K Alvin DO Work Phone: Start: 06-12-2025 C-reactive protein Rupinder connell K Alvin DO Work Phone: Start: 03-20-2025 End: 03-20-2025 Culture bacterial quanttative colony count urine Treray Robbins DO Work Phone (unformatted): [phone] Start: 03-20-2025 Blood count hemoglobin LOIS CONDE Comment on above: Order Comment: Relea se to patient->Automatic Start: 03-20-2025 Ct soft tissue neck w/contrast material Tori Patino DO Work Phone: Start: 03-20-2025 Basic metabolic pane l calcium total Tori Patino DO Work Phone: Start: 03-20-2025 C-reactive protein Aneta Patino DO Work Phone: Start: 03-20-2025 MARIAH-VALLEJO VIRUS ( EBV) ANTIBODY PROFILE, SERUM Demetra Thakkar May DO Work Phone: Start: 03-20-2025 Urine test visual color cmprsn meths Demetra Thakkar May DO Work Phone: Start: 03-17-[address] Mitzy Fung MD Work Phone: Start: 03-13-2025 Bacteria identificat ion test Dr. Mitzy Fung MD Work Phone: Start: 02-23-[address] Aviva Fung [...] Phone: Start: 08-27-2024 STREP A MOLECULAR (POC) Latasha Cuadra APRN.SENIOR IT PROJECT MANAGER Work Phone: Start: 12-29-2023 Urnls dip stick/tabl et rgnt auto w/o microscopy Senait Kraus PA-C Work Phone: Start: 12-24-2023 Pelvic examination u nder anesthesia Start: 11-14-2023 Urine culture Start: 11-14-2023 CT of abdomen and pe lvis without contrast Start: 11-14-2023 Urnls dip stick/tabl et rgnt auto w/o microscopy Lillian Cruz VAC PRESS OPERATOR.[facility] Work Phone: Start: 10-30-2023 Urnls dip stick/tabl et rgnt auto w/o microscopy Otiliogagie Enriquez VAC PRESS OPERATOR.SENIOR IT PROJECT MANAGER Work Phone: Start: 07-28-2023 Urnls dip stick/tabl [...] of thyroid stimulating hormone tsh Codi Lemus VAC PRESS OPERATOR-[facility] Work Phone: Start: 11-18-2022 Local destruction of ovary Start: 11-17-2022 Pelvic echography Start: 11-12-2022 Computed tomography of abdomen and pelvis with contrast Start: 11-10-2022 CT of face Start: 08-25-2022 2019 CORONAVIRUS Moe Montez MD Work Phone: Start: 08-25-2022 COVID, FLU A/B + RSV , ROUTINE Moe Montez MD Work Phone: Start: 08-25-2022 Iadna respiratry pro be & rev trnscr 3-5 targets Moe Montez MD Work Phone: Start: 08-25-2022 STREP A MOLECULAR (POC) Moe Montez MD Work Phone: Start: 06-24-2022 Urnls dip stick/tabl et rgnt auto w/o microscopy Gus Munroe APRN.SENIOR IT PROJECT MANAGER Work Phone: Bacteria identificat ion test Bacteria identified in Urine by Culture SARS-CoV-2 & FLU Ant igen (Rapid) SARS-CoV-2 & FLU Ant igen (Rapid) Urine culture Urine culture Plan of Treatment Date Care Activity Detail Author Start: 04-28-2027 Tetanus Diphtheria a nd Pertussis Vaccines (7 - Td or Tdap) Tetanus Diphtheria and Pertussis Vaccines (7 - Td or Tdap) [facility] Start: 04-28-2027 Urine microalbumin profile DTa P,Tdap,Td Vaccine (7 - Td or Tdap) [facility] Start: 06-15-2025 End: 06-15-2025 Admission to same day surgery center 06/15/2025 1:17 PM EDT - 06/15/2025 1:57 PM EDT Surgery [facility] [address] [place] [id number] Guy Novak MD [id number] [place], [place] [id number] Tonsillectomy 12+ Years Old [facility] Comment on above: Tonsillectomy 12+ Ye ars Old Start: 06-15-2025 Subsequent hospital visit by physician 06/15/2025 1:17 PM EDT Hospital Encounter [facility] [place] [address] Guy Novak MD [address] [facility] [address] [place] [address] [facility] Start: 06-15-2025 End: 06-15-2025 Tonsillectomy primary/secondary age 12/> Tonsillectomy 12+ Years Old Peritonsillar abscess Tonsillar abscess Recurrent tonsillitis 06/15/2025 1:17 PM EDT [facility] Start: 05-11-2025 End: 05-11-2025 Admission to same day surgery center 05/11/2025 12:17 PM EDT - 05/11/2025 12:57 PM EDT Surgery [facility] [place] [address] Guy Novak MD [address] [facility] [address] [place], [place] [id number] Tonsillectomy 12+ Years Old [facility] Comment on above: Tonsillectomy 12+ Ye ars Old Start: 05-11-2025 Subsequent hospital visit by physician 05/11/2025 12:17 PM EDT Hospital Encounter [facility] [place], [place] [id number] Guy Novak MD [address] [facility] [address] [place], [place] [id number] [facility] Start: 05-11-2025 End: 05-11-2025 Tonsillectomy primary/secondary age 12/> Tonsillectomy 12+ Years Old Peritonsillar abscess Tonsillar abscess Recurrent tonsillitis 05/11/2025 12:17 PM EDT [facility] Start: 04-26-2025 End: 04-26-2025 Admission to establishment 04/26/2025 9:30 AM EDT Pre-Admission Testing [facility] [address] [place] [address] Building, [address] [place] [address] Ronna Pinon APRN-[place] [place] [address] [facility]- 05/11/25- T&A [facility] Comment on above: [facility]- 05/11/25 - T&A Start: 04-24-2025 COVID-19 (2024-09 6 season) COVID-19 ( season) [facility] Start: 04-24-2025 FLU (#1) FLU (#1) [facility] Start: 04-24-2025 Influenza vaccination Influenza Vacc ine (#1) [facility] Start: 03-24-2025 End: 03-24-2025 Patient encounter procedure 03/24/2025 10:00 AM EDT Office Visit [facility] [address] [place] [address] Ken Shelby DO [address] [place] [address] HOSPITAL FU- Peritonsillar abscess [facility] Comment on above: HOSPITAL FU- Periton sillar abscess Start: 03-17-2025 [facility] Start: 02-21-2025 US Pelvis [facility] Start: 02-21-2025 [facility] Start: 02-05-2025 [facility] Start: 01-23-2025 [facility] Start: 01-20-2025 [facility] Start: 04-24-2024 COVID-19 (2023- 5 season) COVID-19 ( season) [facility] Start: 04-24-2024 Covid-19 Vaccine ( season) Covid-19 Vaccine ( season) [facility] Start: 04-24-2024 Influenza vaccination C [facility] Start: 2024 Pneumococcal vaccination Pneum ococcal Vaccine (1 of 2 - PCV) [facility] Start: 03-10-2024 Well Visit Well Visit [facility] Start: 12-24-2023 Patient discharge [facility] Start: 11-14-2023 [facility] Start: 11-14-2023 Bacteria identified in Urine by Culture [facility] Start: 11-14-2023 [facility] Start: 09-25-2023 [facility] Start: 08-24-2023 Behavioral Health Screening Behavioral Health Screening [facility] Start: 08-24-2023 Depression Assessment Depression Ass essment [facility] Start: 07-30-2023 End: 10-29-2023 Bacteria identified in Urine by Culture URINE CULTURE Microbiology Routine Urinary frequency Expected: 07/30/2023, Expires: 10/29/2023 [facility] Work Phone: Comment on above: Expected: 07/30/2023 , Expires: 10/29/2023 Start: 07-04-2023 [facility] Start: 04-24-2023 Covid-19 Vaccine ( season) Covid-19 Vaccine ( season) [facility] Start: 04-24-2023 Influenza vaccination Influenza Vacc ine (#1) [facility] Start: 2023 Annual PCP Team 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 [employer] 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 Disease Visit Annual PCP Team Chronic Disease Visit [facility] Start: 2023 Anxiety Screening Anxiety Screening [facility] Start: 2023 Chlamydia Screening () Chlamydia Screening () [facility] Start: 2023 Depression Screening Depression Scre ening [facility] Start: 2023 GC (Gonorrhea) Scree rosa () GC (Gonorrhea) Screening () [facility] Start: 2023 Hearing Screening Hearing Screening [facility] Start: 2023 Hepatitis C Screening Hepatitis C [facility] Start: 2023 Hepatitis C screening Hepatitis C [facility] Start: 2023 HIV Screening HIV Screening [facility] Start: 2023 HIV screening HIV Screening [facility] Start: 2023 PATH Education 18+ Years PATH Education 18+ Years [facility] Start: 2023 Screening for Chlamy edilia trachomatis Chlamydia Screening () [facility] Start: 2023 Spirometry Spirometry [facility] Start: 11-28-2022 [facility] Start: 11-18-2022 Anesthesia intraperi toneal lower abd w/laps nos ANESTH SURG LOWER ABDOMEN [facility] Start: 11-18-2022 Laps surg w/aspir cavity/cyst single/multiple LAPAROSCOPY ASPIRATION [facility] Start: 11-18-2022 Ambulation without limitation [facility] Start: 11-18-2022 Catheterization of vein [facility] Start: 11-18-2022 Medical regimen orde rs management [facility] Start: 11-18-2022 Medication education [facility] Start: 11-18-2022 Notification of physician [facility] Start: 11-18-2022 Oxygen therapy [facility] Start: 11-18-2022 End: 11-18-2022 Patient discharge [facility] Start: 11-18-2022 Procedure discontinued [facility] Start: 11-18-2022 Taking patient vital signs [facility] Start: 11-18-2022 Vital signs measurements [facility] Start: 11-18-2022 [facility] Start: 11-18-2022 Local destruction of ovary Lap aroscopic, Ovarian Cystectomy (Right) [facility] Start: 11-18-2022 Verification routine [facility] Start: 11-18-2022 Admission procedure [facility] Start: 11-18-2022 [facility] Start: 08-26-2022 [facility] Start: 08-24-2022 Depression Assessment Depression Ass essment [facility] Start: 04-26-2022 Well Visit Well Visit [facility] Start: 04-24-2022 FLU (#1) FLU (#1) [facility] Start: 04-24-2022 Influenza vaccination INFLUENZA (#1) [facility] Start: 10-21-2021 COVID-19 VACCINE (3 - Booster for Pfizer series) COVID-19 VACCINE (3 - Booster for Pfizer series) [facility] Start: 07-17-2021 COVID-19 (3 - Booste r for Pfizer series) COVID-19 (3 - Booster for Pfizer series) [facility] Start: 07-17-2021 COVID-19 VACCINE (3 - Booster for Pfizer series) COVID-19 VACCINE (3 - Booster for Pfizer series) [facility] Start: 05-24-2021 MenB (2 of 2 - MenB 2-Dose Series Bexsero) MenB (2 of 2 - MenB 2-Dose Series Bexsero) [facility] Start: 2021 MENINGOCOCCAL CONJUG ATE (1 - 2-dose series) MENINGOCOCCAL CONJUGATE (1 - 2-dose series) [facility] Start: 2020 CHLAMYDIA SCREENING (<18) CHLA MYDIA SCREENING (<18) [facility] Start: 2020 GC (GONORRHEA) SCREE RSOA (<18) GC (GONORRHEA) SCREENING (<18) [facility] Start: 2020 Hearing Screening Hearing Screening [facility] Start: 2020 PATH Education 15-17 + Years PATH Education 15-17+ Years [facility] Start: 2020 Vision Screening Vision Screening [facility] Start: 2019 PEDS TO ADULT TRANSI TION ANNUAL ASSESSMENT PEDS TO ADULT TRANSITION ANNUAL ASSESSMENT [facility] Start: 2017 Adult depression scr eening assessment DEPRESSION SCREENING [facility] Start: 2017 PATH Education 12-14 + Years PATH Education 12-14+ Years [facility] Start: 2017 PATH Transitional Assessment PATH Transitional Assessment [facility] Start: 2017 PEDS TO ADULT TRANSI TION INITIAL DISCUSSION PEDS TO ADULT TRANSITION INITIAL DISCUSSION [facility] Start: 2016 HPV VACCINE (1 - 2-d ose series) HPV VACCINE (1 - 2-dose series) [facility] Start: 2015 MENINGOCOCCAL B: Con loss prevention analyst based on risk (1 of 2 - Risk Bexsero 2-dose series) MENINGOCOCCAL B: Consider based on risk (1 of 2 - Risk Bexsero 2-dose series) [facility] Start: 2012 Urine microalbumin profile DTA P,TDAP,TD (4 - Tdap) [facility] Start: 2011 PNEUMOCOCCAL (1 - PPSV23) PNEU MOCOCCAL (1 - PPSV23) [facility] Start: 2011 Pneumococcal vaccination [facility] Start: 2009 ASTHMA CONTROL TEST ASTHMA CONTROL T EST [facility] Start: 2009 MMR (2 of 2 - Standa rd series) MMR (2 of 2 - Standard series) [facility] Start: 2009 VARICELLA (2 of 2 - 2-dose childhood series) VARICELLA (2 of 2 - 2-dose childhood series) [facility] Start: 2007 ASTHMA ACTION PLAN ASTHMA ACTION VALERIE N [facility] Start: 2005 POLIO (1 of 3 - 4-do se series) POLIO (1 of 3 - 4-dose series) [facility] Bacteria identified in Urine by Culture URINE CULTURE Microbiology Routine Urinary frequency Ordered: 06/24/2022 [facility] Work Phone: Comment on above: Ordered: 06/24/2022 Bacteria identified in Urine by Culture Urine Culture [facility] Bacteria identified in Urine by Culture URINE CULTURE Microbiology Routine Urinary frequency 07/28/2023 7:38 PM EST [facility] Work Phone: Bacteria identified in Urine by Culture URINE CULTURE Microbiology Routine Dysuria Ordered: 10/30/2023 [facility] Work Phone: Comment on above: Ordered: 10/30/2023 Bacteria identified in Urine by Culture URINE CULTURE Microbiology Routine Burning with urination 12/29/2023 5:02 PM EDT [facility] Work Phone: BACTERIAL VAGINOSIS AMPLIFICATION BACTERIAL VAGINOSIS AMPLIFICATION Lab Routine Urinary frequency Ordered: 06/24/2022 [facility] Work Phone: Comment on above: Ordered: 06/24/2022 BACTERIAL VAGINOSIS NAAT BACTERI AL VAGINOSIS NAAT Lab Routine Dysuria Ordered: 10/30/2023 [facility] Work Phone: Comment on above: Ordered: 10/30/2023 PRINCE / TRICHOMONA S AMPLIFICATION PRINCE / TRICHOMONAS AMPLIFICATION Microbiology Routine Urinary frequency Ordered: 06/24/2022 [facility] Work Phone: Comment on above: Ordered: 06/24/2022 PRINCE/TRICHOMONAS NAAT PRINCE /TRICHOMONAS NAAT Lab Routine Dysuria Ordered: 10/30/2023 [facility] Work Phone: Comment on above: Ordered: 10/30/2023 COVID & INFLUENZA A/ B & RSV PCR, ROUTINE COVID & INFLUENZA A/B & RSV PCR, ROUTINE Microbiology Routine Viral URI with cough Ordered: 08/27/2024 [facility] Work Phone: Comment on above: Ordered: 08/27/2024 End: 06-14-2025 CT Chest WO and W contrast IV [facility] Work Phone: Comment on above: One time imaging for 1 Occurrences starting 06/14/2025 until 06/14/2025 DHEA Sulfate DHEA Sulfate Lab Routine Hirsutism 11/24/2022 3:30 PM EDT [facility] Lactic acid measurement [facility] Patient Education [facility] Work Phone: Patient referral [facility] Work Phone: End: 11-24-2022 Sex Hormone Binding Globulin Sex Hormone Binding Globulin Lab Routine For lab collect this frequency defaults to the next routine lab draw time. Routine times: 0600; 1100; 1400; 1900; 2200 for 1 Occurrences starting 11/24/2022 until 11/24/2022 [facility] Work Phone: Comment on above: For lab collect this frequency defaults to the next routine lab draw time. Routine times: 0600; 1100; 1400; 1900; 2200 for 1 Occurrences starting 11/24/2022 until 11/24/2022 Sex Hormone Binding Globulin Sex Hormone Binding Globulin Lab Routine 11/24/2022 3:30 PM EDT [facility] Testosterone, free Testosterone, free Lab Routine Irregular menses 11/24/2022 3:30 PM EDT [facility] End: 09-07-2024 Transglutaminase IgA [facility] Work Phone: Comment on above: 1 Occurrences starti ng 09/07/2024 until 09/07/2024 [facility] Immunizations Immunization Date Immunization Notes Care Provider Fa cility 09-07-2024 influenza, seasonal, injectable, preservative free Lois Conde MD Work Phone: [facility] 09-07-2024 influenza virus vacc ine, unspecified formulation Sriram Stewart VAC PRESS OPERATOR.SENIOR IT PROJECT MANAGER Work Phone: [facility] 03-10-2023 meningococcal B vacc ine, recombinant, OMV, adjuvanted Lois Conde MD Work Phone: [facility] 05-22-2021 PFIZER (purple cap) COVID-19, mRNA, LNP-S, 30mcg/0.3mL dose Codi Lemus VAC PRESS OPERATOR-SENIOR IT PROJECT MANAGER Work Phone: [facility] 04-30-2021 influenza, injectabl e, quadrivalent, preservative free [facility] VAC PRESS OPERATOR-SENIOR IT PROJECT MANAGER Work Phone: [facility] 04-30-2021 PFIZER (purple cap) COVID-19, mRNA, LNP-S, 30mcg/0.3mL dose [facility] Mariah VAC PRESS OPERATOR-SENIOR IT PROJECT MANAGER Work Phone: [facility] 04-30-2021 influenza virus vacc ine, unspecified formulation Ken Dawson VAC PRESS OPERATOR.SENIOR IT PROJECT MANAGER Work Phone: [facility] 04-26-2021 meningococcal B vacc ine, recombinant, OMV, adjuvanted [facility] Mariah VAC PRESS OPERATOR-SENIOR IT PROJECT MANAGER Work Phone: [facility] 04-26-2021 meningococcal polysaccharide (groups A, C, Y and W-135) diphtheria toxoid conjugate vaccine (MCV4P) [facility] Lemus VAC PRESS OPERATOR-SENIOR IT PROJECT MANAGER Work Phone: [facility] 04-16-2020 hepatitis A vaccine, pediatric/adolescent dosage, 2 dose schedule [facility] White VAC PRESS OPERATOR-SENIOR IT PROJECT MANAGER Work Phone: [facility] 04-16-2020 Human Papillomavirus 9-valent vaccine [facility] White VAC PRESS OPERATOR-SENIOR IT PROJECT MANAGER Work Phone: [facility] 04-29-2018 hepatitis A vaccine, pediatric/adolescent dosage, 2 dose schedule [facility] White VAC PRESS OPERATOR-SENIOR IT PROJECT MANAGER Work Phone: [facility] 04-29-2018 Human Papillomavirus 9-valent vaccine [facility] White VAC PRESS OPERATOR-SENIOR IT PROJECT MANAGER Work Phone: [facility] 06-30-2017 influenza, injectabl e, quadrivalent, preservative free Denielle White VAC PRESS OPERATOR-SENIOR IT PROJECT MANAGER Work Phone: [facility] 04-28-2017 meningococcal polysaccharide (groups A, C, Y and W-135) diphtheria toxoid conjugate vaccine (MCV4P) [facility] White VAC PRESS OPERATOR-SENIOR IT PROJECT MANAGER Work Phone: [facility] 04-28-2017 tetanus toxoid, redu lorie diphtheria toxoid, and acellular pertussis vaccine, adsorbed Denaishwarya Lemus VAC PRESS OPERATOR-SENIOR IT PROJECT MANAGER Work Phone: [facility] 05-14-2015 influenza, live, intranasal, quadrivalent Codi Lemus VAC PRESS OPERATOR-SENIOR IT PROJECT MANAGER Work Phone: [facility] 05-10-2014 influenza, live, intranasal, quadrivalent Denaishwarya Lemus VAC PRESS OPERATOR-SENIOR IT PROJECT MANAGER Work Phone: [facility] 04-22-2012 influenza virus vacc ine, split virus (incl. purified surface antigen) [facility] Lemus VAC PRESS OPERATOR-SENIOR IT PROJECT MANAGER Work Phone: [facility] 06-07-2010 influenza virus vacc ine, split virus (incl. purified surface antigen) Denaishwarya Lemus VAC PRESS OPERATOR-SENIOR IT PROJECT MANAGER Work Phone: [facility] 05-10-2010 diphtheria, tetanus toxoids and acellular pertussis vaccine Denaishwarya Lemus VAC PRESS OPERATOR-SENIOR IT PROJECT MANAGER Work Phone: [facility] 05-10-2010 influenza virus vacc ine, split virus (incl. purified surface antigen) Denaishwarya Lemus VAC PRESS OPERATOR-SENIOR IT PROJECT MANAGER Work Phone: [facility] 05-10-2010 measles, mumps, rube lla, and varicella virus vaccine Denaishwarya Lemus VAC PRESS OPERATOR-SENIOR IT PROJECT MANAGER Work Phone: [facility] 05-10-2010 poliovirus vaccine, inactivated Denaishwarya Lemus VAC PRESS OPERATOR-SENIOR IT PROJECT MANAGER Work Phone: [facility] 11-26-2006 diphtheria, tetanus toxoids and acellular pertussis vaccine Gus Munroe VAC PRESS OPERATOR.SENIOR IT PROJECT MANAGER Work Phone: [facility] Work Phone: 11-26-2006 pneumococcal conjuga te vaccine, 7 valent Gus Munroe VAC PRESS OPERATOR.SENIOR IT PROJECT MANAGER Work Phone: [facility] Work Phone: 11-26-2006 varicella virus vaccine Yaron Munroe VAC PRESS OPERATOR.SENIOR IT PROJECT MANAGER Work Phone: [facility] Work Phone: 06-08-2006 haemophilus influenz ae type b vaccine, HbOC conjugate Gus Munroe VAC PRESS OPERATOR.SENIOR IT PROJECT MANAGER Work Phone: [facility] Work Phone: 06-08-2006 haemophilus influenz ae type b vaccine, PRP-T conjugate Codi Lemus VAC PRESS OPERATOR-SENIOR IT PROJECT MANAGER Work Phone: [facility] 06-08-2006 measles, mumps and rubella virus vaccine Gus Munroe VAC PRESS OPERATOR.SENIOR IT PROJECT MANAGER Work Phone: [facility] Work Phone: 06-08-2006 pneumococcal conjuga te vaccine, 7 valent Gus Munroe VAC PRESS OPERATOR.SENIOR IT PROJECT MANAGER Work Phone: [facility] Work Phone: 02-20-2006 pneumococcal conjuga te vaccine, 7 valent Codi Mariah VAC PRESS OPERATOR-SENIOR IT PROJECT MANAGER Work Phone: [facility] 2005 diphtheria, tetanus toxoids and acellular pertussis vaccine Codi Lemus VAC PRESS OPERATOR-SENIOR IT PROJECT MANAGER Work Phone: [facility] 2005 DTaP-hepatitis B and poliovirus vaccine Codi Lemus VAC PRESS OPERATOR-SENIOR IT PROJECT MANAGER Work Phone: [facility] 2005 haemophilus influenz ae type b vaccine, PRP-T conjugate Codi Lemus VAC PRESS OPERATOR-SENIOR IT PROJECT MANAGER Work Phone: [facility] 2005 hepatitis B vaccine, pediatric or pediatric/adolescent dosage Denaishwarya Mariah VAC PRESS OPERATOR-SENIOR IT PROJECT MANAGER Work Phone: [facility] 2005 pneumococcal conjuga te vaccine, 7 valent Jaradjoann Lemus VAC PRESS OPERATOR-SENIOR IT PROJECT MANAGER Work Phone: [facility] 2005 poliovirus vaccine, inactivated Jaradjoann Lemus VAC PRESS OPERATOR-SENIOR IT PROJECT MANAGER Work Phone: [facility] 2005 diphtheria, tetanus toxoids and acellular pertussis vaccine Denaishwarya Lemus VAC PRESS OPERATOR-SENIOR IT PROJECT MANAGER Work Phone: [facility] 2005 haemophilus influenz ae type b vaccine, PRP-T conjugate Denaishwarya Lemus VAC PRESS OPERATOR-SENIOR IT PROJECT MANAGER Work Phone: [facility] 2005 poliovirus vaccine, inactivated Denalbertole White VAC PRESS OPERATOR-SENIOR IT PROJECT MANAGER Work Phone: [facility] 2005 diphtheria, tetanus toxoids and acellular pertussis vaccine Denaishwarya White VAC PRESS OPERATOR-SENIOR IT PROJECT MANAGER Work Phone: [facility] 2005 haemophilus influenz ae type b vaccine, PRP-T conjugate Denaishwarya Lemus VAC PRESS OPERATOR-SENIOR IT PROJECT MANAGER Work Phone: [facility] 2005 hepatitis B vaccine, pediatric or pediatric/adolescent dosage Denalbertole White VAC PRESS OPERATOR-SENIOR IT PROJECT MANAGER Work Phone: [facility] 2005 poliovirus vaccine, inactivated Denielle White VAC PRESS OPERATOR-SENIOR IT PROJECT MANAGER Work Phone: [facility] 2005 poliovirus vaccine, unspecified formulation Denaishwarya White VAC PRESS OPERATOR-SENIOR IT PROJECT MANAGER Work Phone: [facility] 2005 hepatitis B vaccine, pediatric or pediatric/adolescent dosage Denielle White VAC PRESS OPERATOR-SENIOR IT PROJECT MANAGER Work Phone: [facility] Payers Date Payer Category Payer Self-pay [id number] 2022 Unknown [id number] 2021 Unknown [id number] 2006 Medicaid [employer] [id number] 2006-Present [phone] [address] [place] [address] Medicaid [id number] 2006 Medicaid [id number] 2005 Unknown [id number] 2005 Unknown [id number] 2005 Unknown [id number] 2005 Unknown [id number] 2005 Unknown [id number] 2005 Unknown [id number] 2005 Unknown [id number] 2005 Unknown [id number] 2005 Unknown [id number] 2005 Unknown [id number] 2005 Unknown [id number] Unknown [facility] [id number] Unknown [id number] Unknown [id number] Unknown [id number] Unknown [id number] Unknown [id number] Unknown [id number] Unknown [id number] Unknown [id number] Unknown [id number] Unknown [id number] Unknown [id number] Social History Date Type Detail Facility Start: 07-04-2019 End: 06-27-2022 Tobacco smoking status NHIS Never smoked tobacco [facility] Work Phone: Start: 07-04-2019 End: 06-27-2022 Tobacco use and exposure Smokeless tobacco non-user [facility] Work Phone: Start: 2005 Sex Assigned At Not on file C [facility] Start: 01-07-2022 End: 06-24-2022 Exposure to SARS-CoV-2 (event) Not sure [facility] History of tobacco use Passive smoker [facility] Start: 08-26-2022 End: 12-21-2023 Tobacco smoking status NHIS Unknown if ever smoked [facility] Start: 12-11-2020 None [facility] Start: 12-11-2020 With Family [facility] Start: 2005 Sex Assigned At Female W [facility] Start: 10-15-2022 End: 06-17-2025 Alcohol intake Lifetime non-drinker (finding) [facility] Start: 10-15-2022 End: 06-17-2025 Alcohol intake [facility] Start: 10-15-2022 End: 06-17-2025 Tobacco use panel [facility] Adolescent depressio n screening assessment 7 [facility] Start: 01-20-2025 End: 03-17-2025 Tobacco smoking status NHIS Smokes tobacco daily (finding) [facility] Start: 08-12-2012 Sex Female (finding) [facility] NEGATED: Highlighted row [facility] Goals Date Patient Goal Desired Activity /State Functional Status Date Assessment Result Facility 06-17-2025 Are you blind, or do you have serious difficulty seeing, even when wearing glasses No 06/17/2025 6:09 AM EDT Samy Peck, RN No [facility] 06-14-2025 Are you deaf, or do you have serious difficulty hearing No 06/14/2025 4:14 PM EDT No [facility] 06-14-2025 Are you blind, or do you have serious difficulty seeing, even when wearing glasses Yes 06/14/2025 4:14 PM EDT Beatriz Pratt, RN Yes [facility] 06-14-2025 Do you have serious difficulty walking or climbing stairs No 06/14/2025 4:14 PM EDT No [facility] 06-14-2025 Do you have difficul ty dressing or bathing No 06/14/2025 4:14 PM EDT No [facility] 06-14-2025 Because of a physica l, mental, or emotional condition, do you have difficulty doing errands alone such as visiting a physician's office or shopping Yes 06/14/2025 4:14 PM EDT Yes [facility] 06-12-2025 Are you blind, or do you have serious difficulty seeing, even when wearing glasses No 06/12/2025 5:46 PM EDT Joanne Van, RN No [facility] 04-26-2024 Are you deaf, or do you have serious difficulty hearing No 04/26/2024 12:24 PM EDT Nancy Pruett, RN No [facility] 04-26-2024 Are you blind, or do you have serious difficulty seeing, even when wearing glasses No 04/26/2024 12:24 PM ASPENT Nancy Pruett, PAM No [facility] 04-26-2024 Do you have serious difficulty walking or climbing stairs No 04/26/2024 12:24 PM Nancy Gregory, RN No [facility] 04-26-2024 Do you have difficul ty dressing or bathing No 04/26/2024 12:24 PM EDT Nancy Pruett, PAM No [facility] 04-26-2024 Because of a physica l, mental, or emotional condition, do you have difficulty doing errands alone such as visiting a physician's office or shopping No 04/26/2024 12:24 PM Nancy Gregory RN No [facility] 07-20-2019 Are you deaf, or do you have serious difficulty hearing No 07/20/2019 2:00 AM EST No [facility] 07-20-2019 Are you blind, or do you have serious difficulty seeing, even when wearing glasses Yes 07/20/2019 2:00 AM EST Regla Mae RN Yes [facility] 07-20-2019 Do you have serious difficulty walking or climbing stairs Yes 07/20/2019 2:00 AM EST Yes [facility] 07-20-2019 Do you have difficul ty dressing or bathing No 07/20/2019 2:00 AM EST No [facility] 07-20-2019 Because of a physica l, mental, or emotional condition, do you have difficulty doing errands alone such as visiting a physician's office or shopping 07/20/2019 2:00 AM EST [facility] Mental Status Date Assessment Result Facility 06-14-2025 Because of a physica l, mental, or emotional condition, do you have serious difficulty concentrating, remembering, or making decisions Yes 06/14/2025 4:14 PM EDT Yes [facility] 04-26-2024 Because of a physica l, mental, or emotional condition, do you have serious difficulty concentrating, remembering, or making decisions No 04/26/2024 12:24 PM EDNancy Dixon RN No [facility] 12-24-2023 Cognitive function Voice/Name;Touch/Pastorki ng [facility] Work Phone: 02-04-2023 Cognitive function Level Of Cons ciousness Awake;Alert;Appropriate;Fol lows Commands [facility] Work Phone: 11-18-2022 Cognitive function Voice/Name [facility] Work Phone: 07-20-2019 Because of a physica l, mental, or emotional condition, do you have serious difficulty concentrating, remembering, or making decisions Yes 07/20/2019 2:00 AM EST Yes [facility] Clinical Notes 01-17-2022 to 06-19-2025 Plan of Care - Vi Jiménez RN - 06/19/2025 9:04 AM EDTPlan of Care - Vi Jiménez RN - 06/19/2025 9:04 AM EDTPlan of Care - Shivam Irwin RN - 06/18/2025 8:25 PM EDT Note Date & Type Note Facility 06-19-2025 Plan of care note Patient discharged with self and mom. No further questions at this time. They expressed appropriate understanding of discharge instructions. AVS reviewed by this RN. Problem: Pain - Acute Goal: Reduced pain sensation Outcome: Completed Problem: Transition Readiness Goal: Knowledge of discharge instructions Outcome: Completed Goal: Able to safely transition to next level of care Outcome: Completed [facility] 06-19-2025 Miscellaneous Notes Patient discharged with self and mom. No further questions at this time. They expressed appropriate understanding of discharge instructions. AVS reviewed by this RN. Problem: Pain - Acute Goal: Reduced pain sensation Outcome: Completed Problem: Transition Readiness Goal: Knowledge of discharge instructions Outcome: Completed Goal: Able to safely transition to next level of care Outcome: Completed Problem: Pain - Acute Description: Presume pain is associated with diagnostic tests, diseases, infections, injuries, and surgeries. Goal: Reduced pain sensation Outcome: Ongoing Problem: Transition Readiness Goal: Knowledge of discharge instructions Outcome: Ongoing Goal: Able to safely transition to next level of care Outcome: Ongoing NUTRITION SCREENING: Reviewed H&P, progress notes, nursing nutrition screen, problem list, growth, current nutrition support, nutritionally significant labs and medications. Jocelyn Barajas is a 20 y.o. female Problem List[1] Past Medical History: Diagnosis Date ADHD (attention deficit hyperactivity disorder) Anxiety 03/10/2023 Asthma Depression Endometriosis 03/10/2023 Recurrent tonsillitis 03/20/2025 Urinary tract infection Current Diet: T&A Modified Texture PO Intake(%): Not enough data Allergies[2] There is no height or weight on file to calculate BMI. at the No height and weight on file for this encounter. Medications: Glycolax, Zofran, Prozac, Inderal Lab Results: Reviewed Recent Labs 06/17/25 0318 NA 139 K 3.9 CL 107 CO2 20.2* BUN 8 GLU 88 CALCIUM 9.1 CREATININE 0.65 Recent Labs 06/17/25 0318 WBC 11.6* RBC 4.14 HGB 11.9 HCT 35.2* MCV 85.0 MCH 28.7 MCHC 33.8 PLT 350 MPV 10.1 Nutrition Concerns: Pt is a 20 y.o. female POD2 s/p T&A presenting with post op tonsillectomy hemorrhage and bloody emesis. Previously on CL diet, advanced to T&A yesterday. Not enough data to assess PO intake at this time. BMI is WNL at 20.69 kg/m2 but pt has lost 7.8% of her body wt since 03/24/25. Plan: Refer to dietitian for further evaluation related to: Wt loss of 7.8% x 3 mo Dietitian to follow-up within 48 hours Weekly follow up for adequacy of nutritional intake, tolerance, clinical condition, and weight changes. Asha Gold, DTR June 18, 2025 [1] Patient Active Problem List Diagnosis Attention deficit disorder with hyperactivity(314.01) Asthma, mild persistent BMI (body mass index), pediatric, 95-99% for age Seasonal allergies Endometriosis Anxiety Post-tonsillectomy hemorrhage [2] Allergies Allergen Reactions Cefdinir Hives Penicillins Rash Problem: Pain - Acute Goal: Reduced pain sensation Outcome: Ongoing Problem: Transition Readiness Goal: Knowledge of discharge instructions Outcome: Ongoing Goal: Able to safely transition to next level of care Outcome: Ongoing Problem: Pain - Acute Goal: Reduced pain sensation Outcome: Ongoing Problem: Transition Readiness Goal: Knowledge of discharge instructions Outcome: Ongoing Goal: Able to safely transition to next level of care Outcome: Ongoing documented in this encounter [facility] 06-19-2025 Hospital course Narrative Images from the original note were not included. Surgery Discharge Summary Name: Jocelyn Barajas MR#: [id number] : 2005 Room #: 6128/01 Age/Sex: 20 y.o. female Admit Date: 06/17/2025 Admitting: Bernardo Archuleta MD Discharge Date: 06/19/2025 Attending: Bernardo Archuleta MD Final Diagnosis: Post-tonsillectomy hemorrhage Significant Findings (Problem List): Active Hospital Problems No active problems to display. Resolved Hospital Problems Diagnosis Date Resolved Post-tonsillectomy hemorrhage 06/19/2025 Reason for Hospitalization: Postoperative observation Discharge Condition: Good Hospital Course (Care, treatment and services provided): Jocelyn Barajas is a 20 y.o. female who was admitted for Post-tonsillectomy hemorrhage FEN/GI: Soft diet. MIVF which were converted to SL with good PO. Tolerating PO well at time of discharge home. Zofran PRN for nausea/emesis. CV/RESP: Monitored and remained stable. NEURO: Tylenol/Motrin PRN for pain. Tolerating oral pain meds well at time of discharge home. HEENT: Monitored for signs of post-op bleeding. SOCIAL: Parent at bedside. Updated frequently on plan of care. Significant Imaging Results: None Treatments and procedures with outcomes: : no complications Disposition: She was discharged to home. Discharge Medications: Medication List CHANGE how you take these medications * acetaminophen 500 MG tablet Commonly known as: TYLENOL Take 2 Tablets (1,000 mg) by mouth every 6 hours as needed for Pain or Fever Take no more than 5 doses in a 24 hour period What changed: Another medication with the same name was added. Make sure you understand how and when to take each. * acetaminophen 160 MG/5ML solution Commonly known as: TYLENOL Take 20.5 mL (650 mg) by mouth every 6 hours for 10 days What changed: You were already taking a medication with the same name, and this prescription was added. Make sure you understand how and when to take each. * ibuprofen 100 MG/5ML suspension Commonly known as: ADVIL; MOTRIN Take 29.4 mL (588 mg) by mouth every 6 hours as needed for Pain What changed: Another medication with the same name was added. Make sure you understand how and when to take each. * ibuprofen 100 MG/5ML suspension Commonly known as: ADVIL; MOTRIN Take 28.5 mL (570 mg) by mouth every 6 hours for 10 days What changed: You were already taking a medication with the same name, and this prescription was added. Make sure you understand how and when to take each. * This list has 4 medication(s) that are the same as other medications prescribed for you. Read the directions carefully, and ask your doctor or other care provider to review them with you. CONTINUE taking these medications albuterol (2.5 MG/3ML) 0.083% nebulizer solution Commonly known as: VENTOLIN Use 3 mL (2.5 mg) by nebulization every 4 hours as needed for Wheezing or Shortness of Breath (Cough) Beclomethasone Diprop 40 MCG/ACT Aerb Redihaler Commonly known as: QVAR RediHaler Inhale 2 Puffs into the lungs 2 times daily cetirizine 10 MG tablet Commonly known as: ZyrTEC Take 1 Tablet (10 mg) by mouth daily clindamycin 300 MG capsule Commonly known as: CLEOCIN Take 2 Capsules (600 mg) by mouth every 8 hours for 10 days FLUoxetine 10 MG capsule Commonly known as: PROzac OPTICHAMBER ALICIA Misc DEVICE Use with inhaled medication as instructed. oxyCODONE 5 MG/5ML solution Commonly known as: ROXICODONE Take 2.9 mL (2.9 mg) by mouth every 6 hours as needed for Pain for up to 10 doses propranolol 10 MG tablet Commonly known as: INDERAL Where to Get Your Medications These medications were sent to [facility] [id number] [facility] [address] [facility] [id number] acetaminophen 160 MG/5ML solution ibuprofen 100 MG/5ML suspension Discharge Instructions: Instructions/Follow Up Future Labs/Procedures Expected by Expires Follow-up As directed Comments: Call ENT at [phone] with any questions or worsening. Special Diet Instructions As directed Comments: Soft food diet x 2 weeks postop Discharge Orders Future Labs/Procedures Expected by Expires Call physician/healthcare provider for: Decreased drinking, no urination/no wet diaper for 8 hours As directed Call physician/healthcare provider for: Difficulty breathing (breathing faster, working harder to breathe causing ribs to stick out or pulling above the chest, nostrils flaring, grunting, change in color, pauses in breathing) As directed Limited activities as instructed until follow-up As directed Comments: No strenuous activity for 2 weeks Signed: J CARLOS Vaughan 06/19/2025 8:44 AM documented in this encounter [facility] 06-19-2025 Note Surgery Discharge Moe mmary Name: Jocelyn Barajas MR#: [id number] : 2005 Room #: 6128/01 Age/Sex: 20 y.o. female Admit Date: 06/17/2025 Admitting: Bernardo Archuleta MD Discharge Date: 06/19/2025 Attending: Bernardo Archuleta MD Final Diagnosis: Post-tonsillectomy hemorrhage Significant Findings (Problem List): Active Hospital Problems No active problems to display. Resolved Hospital Problems Diagnosis Date Resolved Post-tonsillectomy hemorrhage 06/19/2025 Reason for Hospitalization: Postoperative observation Discharge Condition: Good Hospital Course (Care, treatment and services provided): Jocelyn Barajas is a 20 y.o. female who was admitted for Post-tonsillectomy hemorrhage FEN/GI: Soft diet. MIVF which were converted to SL with good PO. Tolerating PO well at time of discharge home. Zofran PRN for nausea/emesis. CV/RESP: Monitored and remained stable. NEURO: Tylenol/Motrin PRN for pain. Tolerating oral pain meds well at time of discharge home. HEENT: Monitored for signs of post-op bleeding. SOCIAL: Parent at bedside. Updated frequently on plan of care. Significant Imaging Results: None Treatments and procedures with outcomes: : no complications Disposition: She was discharged to home. Discharge Medications: Medication List CHANGE how you take these medications * acetaminophen 500 MG tablet Commonly known as: TYLENOL Take 2 Tablets (1,000 mg) by mouth every 6 hours as needed for Pain or Fever Take no more than 5 doses in a 24 hour period What changed: Another medication with the same name was added. Make sure you understand how and when to take each. * acetaminophen 160 MG/5ML solution Commonly known as: TYLENOL Take 20.5 mL (650 mg) by mouth every 6 hours for 10 days What changed: You were already taking a medication with the same name, and this prescription was added. Make sure you understand how and when to take each. * ibuprofen 100 MG/5ML suspension Commonly known as: ADVIL; MOTRIN Take 29.4 mL (588 mg) by mouth every 6 hours as needed for Pain What changed: Another medication with the same name was added. Make sure you understand how and when to take each. * ibuprofen 100 MG/5ML suspension Commonly known as: ADVIL; MOTRIN Take 28.5 mL (570 mg) by mouth every 6 hours for 10 days What changed: You were already taking a medication with the same name, and this prescription was added. Make sure you understand how and when to take each. * This list has 4 medication(s) that are the same as other medications prescribed for you. Read the directions carefully, and ask your doctor or other care provider to review them with you. CONTINUE taking these medications albuterol (2.5 MG/3ML) 0.083% nebulizer solution Commonly known as: VENTOLIN Use 3 mL (2.5 mg) by nebulization every 4 hours as needed for Wheezing or Shortness of Breath (Cough) Beclomethasone Diprop 40 MCG/ACT Aerb Redihaler Commonly known as: QVAR RediHaler Inhale 2 Puffs into the lungs 2 times daily cetirizine 10 MG tablet Commonly known as: ZyrTEC Take 1 Tablet (10 mg) by mouth daily clindamycin 300 MG capsule Commonly known as: CLEOCIN Take 2 Capsules (600 mg) by mouth every 8 hours for 10 days FLUoxetine 10 MG capsule Commonly known as: PROzac OPTICHAMBER ALICIA Misc DEVICE Use with inhaled medication as instructed. oxyCODONE 5 MG/5ML solution Commonly known as: ROXICODONE Take 2.9 mL (2.9 mg) by mouth every 6 hours as needed for Pain for up to 10 doses propranolol 10 MG tablet Commonly known as: INDERAL Where to Get Your Medications These medications were sent to [facility] [address] [facility] [address] [facility] [phone] acetaminophen 160 MG/5ML solution ibuprofen 100 MG/5ML suspension Discharge Instructions: Instructions/Follow Up Future Labs/Procedures Expected by Expires Follow-up As directed Comments: Call ENT at [phone] with any questions or worsening. Special Diet Instructions As directed Comments: Soft food diet x 2 weeks postop Discharge Orders Future Labs/Procedures Expected by Expires Call physician/healthcare provider for: Decreased drinking, no urination/no wet diaper for 8 hours As directed Call physician/healthcare provider for: Difficulty breathing (breathing faster, working harder to breathe causing ribs to stick out or pulling above the chest, nostrils flaring, grunting, change in color, pauses in breathing) As directed Limited activities as instructed until follow-up As directed Comments: No strenuous activity for 2 weeks Signed: J CARLOS Vaughan 06/19/2025 8:44 AM [facility] 06-19-2025 History of Present illness Narrative DAILY PROGRESS NOTE Name: Jocelyn Barajas Date:06/19/2025 Attending:Bernardo Archuleta MD Hospital Day: 3 SUBJECTIVE: Reported issues and events: Jocelyn is doing well this morning. She reports some soreness. No bleeding overnight. Tolerating PO intake. OBJECTIVE: Vitals: Weight - Scale: 56.4 kg Temp: 36.6 C (97.9 F) I/O: Intake/Output Summary (Last 24 hours) at 06/19/2025 0838 Last data filed at 06/19/2025 0434 Gross per 24 hour Intake 1191.66 ml Output -- Net 1191.66 ml Exam: On physical examination, this is a well developed well nourished child in no apparent distress. Cranium is normocephalic. Eyes show normal extraocular mobility without nystagmus, and the sclerae are clear. The auricles are normal in size, shape, and position bilaterally. The external nose is without deformity by visualization. There is normal mandibular position with no trismus. Oral examination shows pink mucosa without lesions, tonsils that are surgically absent bilaterally with white eschar on tonsillar regions. and a palate that is intact and rises symmetrically. Palpation of the neck reveals no masses or lymphadenopathy, a midline trachea, and thyroid gland without nodules or enlargement. Carotid pulses are normal. Major salivary glands are without masses or tenderness to palpation. Cranial nerves II-XII are grossly intact. Vocalizations are normal without stridor or stertor. There are no retractions and no wheezing. Medications: Current Medications[1] ASSESSMENT/PLAN: Jocelyn is a 20 y.o. female who is POD#4 from T&A and L tonsillar abscess drainage who presents with post operative tonsillectomy hemorrhage. Large clot was removed yesterday. No additional bleeding overnight. Reviewed discharge instructions, including risk for additional bleeding. Will plan for discharge today. Patient was evaluated with Dr. Archuleta. Arely Velazquez, VAC PRESS OPERATOR-SENIOR IT PROJECT MANAGER 06/19/2025 [1] Current Facility-Administered Medications Medication Dose Route Frequency Provider Last Rate Last Admin polyethylene glycol (GLYCOLAX) packet 17 g 17 g Oral Daily PRN Bernardo Archuleta MD 17 g at 06/18/25 1604 NaCl 0.9% PosiFlush 2 mL 2 mL Intravenous PRN Tere Em PA-C NaCl 0.9% PosiFlush 10 mL 10 mL Intravenous PRN Tere Em PA-C clindamycin (CLEOCIN) capsule 600 mg 600 mg Oral Q8H EXACT Tere Em PA-C 600 mg at 06/19/25 0116 NaCl 0.9% PosiFlush 2 mL 2 mL Intravenous Q8H Tere Em PA-C 0 mL/hr at 06/18/25 2305 2 mL at 06/18/25 2305 NaCl 0.9% PosiFlush 2 mL 2 mL Intravenous PRN Tere Em PA-C 0 mL/hr at 06/17/25 0926 2 mL at 06/17/25 0926 NaCl 0.9% PosiFlush 5 mL 5 mL Intravenous PRN Tere Em PA-C NaCl 0.9 % IV Flush bag 30 mL 30 mL Intravenous PRN Tere Em PA-C sterile water injection 10 mL 10 mL Intravenous PRN Tere Em PA-C NaCl 0.9 % 10 mL 10 mL Intravenous PRN Tere Em PA-C ondansetron (ZOFRAN) injection 4 mg 4 mg Intravenous Q8H PRN Tere Em PA-C cetirizine (ZyrTEC) tablet 10 mg 10 mg Oral Daily Teer Em PA-C 10 mg at 06/18/25 0845 FLUoxetine (PROzac) capsule 10 mg 10 mg Oral Daily Tere Em PA-C 10 mg at 06/18/25 0845 acetaminophen (TYLENOL) 160 MG/5ML liquid 640 mg 640 mg Oral Q6H EXACT Tere Em PA-C 640 mg at 06/19/25 0128 diphenhydrAMINE (BENADRYL) injection 56.5 mg 1 mg/kg/DOSE Intravenous Q6H PRN Arely Velazquez APRN-CNP 56.5 mg at 06/17/25 0923 ibuprofen (ADVIL; MOTRIN) 100 MG/5ML suspension 580 mg 10 mg/kg/DOSE (Dowling) Oral Q6H EXACT Arely Velazquez APRN-CNP 580 mg at 06/19/25 0433 DAILY PROGRESS NOTE Name: Jocelyn Barajas Date:06/18/2025 Attending:Bernardo Archuleta MD Hospital Day: 2 SUBJECTIVE: Reported issues and events: Jocelyn is improved from a nausea and abdominal pain standpoint. Says she stills feels gassy but overall pain is better and she is able to pass gas. She is tolerating oral intake fine. No bleeding overnight. OBJECTIVE: Vitals: Weight - Scale: 56.4 kg Temp: 36.6 C (97.9 F) I/O: Intake/Output Summary (Last 24 hours) at 06/18/2025 1014 Last data filed at 06/18/2025 0845 Gross per 24 hour Intake 660 ml Output -- Net 660 ml Exam: On physical examination, this is a well developed well nourished child in no apparent distress. Cranium is normocephalic. Eyes show normal extraocular mobility without nystagmus, and the sclerae are clear. The auricles are normal in size, shape, and position bilaterally. The external nose is without deformity by visualization. There is normal mandibular position with no trismus. Oral examination shows pink mucosa without lesions, tonsils that are surgically absent bilaterally with white eschar on R tonsillar region and A large clot that I was able to remove, leaving behind very small stable clot in the superior pole. and a palate that is intact and rises symmetrically. Palpation of the neck reveals no masses or lymphadenopathy, a midline trachea, and thyroid gland without nodules or enlargement. Carotid pulses are normal. Major salivary glands are without masses or tenderness to palpation. Cranial nerves II-XII are grossly intact. Vocalizations are normal without stridor or stertor. There are no retractions and no wheezing. Medications: Current Medications[1] ASSESSMENT/PLAN: Jocelyn is a 20 y.o. female who is POD#3 from T&A and L tonsillar abscess drainage who presents with post operative tonsillectomy hemorrhage. I removed the vast majority of the very large clot within the left tonsillar fossa this morning. There is a residual small clot in the superior pole that appears stable. I'd like to observe this throughout the day as she progresses her diet to ensure she doesn't have any additional bleeding. Both her and mom are on board with this plan. Bernardo Archuleta MD 06/18/2025 [1] Current Facility-Administered Medications Medication Dose Route Frequency Provider Last Rate Last Admin NaCl 0.9% PosiFlush 2 mL 2 mL Intravenous PRN Tere Em PA-C NaCl 0.9% PosiFlush 10 mL 10 mL Intravenous PRN Tere Em PA-C clindamycin (CLEOCIN) capsule 600 mg 600 mg Oral Q8H EXACT Tere Em PA-C 600 mg at 06/18/25 0845 NaCl 0.9% PosiFlush 2 mL 2 mL Intravenous Q8H Tere mE PA-C 0 mL/hr at 06/18/25 0849 2 mL at 06/18/25 0849 NaCl 0.9% PosiFlush 2 mL 2 mL Intravenous PRN Tere Em PA-C 0 mL/hr at 06/17/25 0926 2 mL at 06/17/25 0926 NaCl 0.9% PosiFlush 5 mL 5 mL Intravenous PRN Tere Em PA-C NaCl 0.9 % IV Flush bag 30 mL 30 mL Intravenous PRN Tere Em PA-C sterile water injection 10 mL 10 mL Intravenous PRN Tere Em PA-C NaCl 0.9 % 10 mL 10 mL Intravenous PRN Tere Em PA-C ondansetron (ZOFRAN) injection 4 mg 4 mg Intravenous Q8H PRN Tere Em PA-C cetirizine (ZyrTEC) tablet 10 mg 10 mg Oral Daily Tere Em PA-C 10 mg at 06/18/25 0845 FLUoxetine (PROzac) capsule 10 mg 10 mg Oral Daily Tere Em PA-C 10 mg at 06/18/25 0845 acetaminophen (TYLENOL) 160 MG/5ML liquid 640 mg 640 mg Oral Q6H EXACT Tere Em PA-C 640 mg at 06/18/25 0845 diphenhydrAMINE (BENADRYL) injection 56.5 mg 1 mg/kg/DOSE Intravenous Q6H PRN Arely Velazquez, ALEX-SENIOR IT PROJECT MANAGER 56.5 mg at 06/17/25 0923 ibuprofen (ADVIL; MOTRIN) 100 MG/5ML suspension 580 mg 10 mg/kg/DOSE (Dowling) Oral Q6H EXACT Arely Velazquez APRN-SENIOR IT PROJECT MANAGER 580 mg at 06/17/25 2317 DAILY PROGRESS NOTE Name: Jocelyn Barajas Date:06/17/2025 Attending:Bernardo Archuleta MD Hospital Day: 1 SUBJECTIVE: Reported issues and events: Jocelyn continues to be nauseous this morning and complaining of an upset stomach. She had zofran in the ED around 3:45am. She is tolerating clear liquids. No further bleeding noted. OBJECTIVE: Vitals: Weight - Scale: 56.4 kg Temp: 36.2 C (97.2 F) I/O: Intake/Output Summary (Last 24 hours) at 06/17/2025 0947 Last data filed at 06/17/2025 0931 Gross per 24 hour Intake 1204 ml Output 200 ml Net 1004 ml Exam: On physical examination, this is a well developed well nourished child in no apparent distress. Cranium is normocephalic. Eyes show normal extraocular mobility without nystagmus, and the sclerae are clear. The auricles are normal in size, shape, and position bilaterally. The external nose is without deformity by visualization. There is normal mandibular position with no trismus. Oral examination shows pink mucosa without lesions, tonsils that are surgically absent bilaterally with white eschar on R tonsillar region and large clot without active bleeding on L tonsillar region and a palate that is intact and rises symmetrically. Palpation of the neck reveals no masses or lymphadenopathy, a midline trachea, and thyroid gland without nodules or enlargement. Carotid pulses are normal. Major salivary glands are without masses or tenderness to palpation. Cranial nerves II-XII are grossly intact. Vocalizations are normal without stridor or stertor. There are no retractions and no wheezing. Medications: Current Medications[1] ASSESSMENT/PLAN: Jocelyn is a 20 y.o. female who is POD#2 from T&A and L tonsillar abscess drainage who presents with post operative tonsillectomy hemorrhage. She continues to have a large clot on the left with no active bleeding. We will continue to monitor for bleeding. Arely Velazquez, VAC PRESS OPERATOR-SENIOR IT PROJECT MANAGER 06/17/2025 [1] Current Facility-Administered Medications Medication Dose Route Frequency Provider Last Rate Last Admin NaCl 0.9% PosiFlush 2 mL 2 mL Intravenous PRN Tere Em PA-C NaCl 0.9% PosiFlush 10 mL 10 mL Intravenous PRN Tere Em PA-C clindamycin (CLEOCIN) capsule 600 mg 600 mg Oral Q8H EXACT Tere Em PA-C 600 mg at 06/17/25 0853 NaCl 0.9% PosiFlush 2 mL 2 mL Intravenous Q8H Tere Em PA-C 0 mL/hr at 06/17/25 0640 2 mL at 06/17/25 0640 NaCl 0.9% PosiFlush 2 mL 2 mL Intravenous PRN Tere Em PA-C 0 mL/hr at 06/17/25 0926 2 mL at 06/17/25 0926 NaCl 0.9% PosiFlush 5 mL 5 mL Intravenous PRN Tere Em PA-C NaCl 0.9 % IV Flush bag 30 mL 30 mL Intravenous PRN Tere Em PA-C sterile water injection 10 mL 10 mL Intravenous PRN Tere Em PA-C NaCl 0.9 % 10 mL 10 mL Intravenous PRN Tere Em PA-C ondansetron (ZOFRAN) injection 4 mg 4 mg Intravenous Q8H PRN Tere Em PA-C cetirizine (ZyrTEC) tablet 10 mg 10 mg Oral Daily Tere Em PA-C 10 mg at 06/17/25 0824 FLUoxetine (PROzac) capsule 10 mg 10 mg Oral Daily Tere Em PA-C 10 mg at 06/17/25 0824 acetaminophen (TYLENOL) 160 MG/5ML liquid 640 mg 640 mg Oral Q6H EXACT Tere Em PA-C diphenhydrAMINE (BENADRYL) injection 56.5 mg 1 mg/kg/DOSE Intravenous Q6H PRN Arely Velazquez APRN-CNP 56.5 mg at 06/17/25 0923 ondansetron (ZOFRAN) injection 4 mg 4 mg Intravenous Q8H PRN Arely Velazquez APRN-CNP documented in this encounter [facility] 06-18-2025 Plan of care note Problem: Pain - Acute Description: Presume pain is associated with diagnostic tests, diseases, infections, injuries, and surgeries. Goal: Reduced pain sensation Outcome: Ongoing Problem: Transition Readiness Goal: Knowledge of discharge instructions Outcome: Ongoing Goal: Able to safely transition to next level of care Outcome: Ongoing [facility] 06-18-2025 Progress note Formatting of t his note is different from the original. NUTRITION SCREENING: Reviewed H&P, progress notes, nursing nutrition screen, problem list, growth, current nutrition support, nutritionally significant labs and medications. Jocelyn Barajas is a 20 y.o. female Problem List[1] Past Medical History: Diagnosis Date ADHD (attention deficit hyperactivity disorder) Anxiety 03/10/2023 Asthma Depression Endometriosis 03/10/2023 Recurrent tonsillitis 03/20/2025 Urinary tract infection Current Diet: T&A Modified Texture PO Intake(%): Not enough data Allergies[2] There is no height or weight on file to calculate BMI. at the No height and weight on file for this encounter. Medications: Glycolax, Zofran, Prozac, Inderal Lab Results: Reviewed Recent Labs 06/17/25 0318 NA 139 K 3.9 CL 107 CO2 20.2* BUN 8 GLU 88 CALCIUM 9.1 CREATININE 0.65 Recent Labs 06/17/25 0318 WBC 11.6* RBC 4.14 HGB 11.9 HCT 35.2* MCV 85.0 MCH 28.7 MCHC 33.8 PLT 350 MPV 10.1 Nutrition Concerns: Pt is a 20 y.o. female POD2 s/p T&A presenting with post op tonsillectomy hemorrhage and bloody emesis. Previously on CL diet, advanced to T&A yesterday. Not enough data to assess PO intake at this time. BMI is WNL at 20.69 kg/m2 but pt has lost 7.8% of her body wt since 03/24/25. Plan: Refer to dietitian for further evaluation related to: Wt loss of 7.8% x 3 mo Dietitian to follow-up within 48 hours Weekly follow up for adequacy of nutritional intake, tolerance, clinical condition, and weight changes. Asha Gold, DTR June 18, 2025 [1] Patient Active Problem List Diagnosis Attention deficit disorder with hyperactivity(314.01) Asthma, mild persistent BMI (body mass index), pediatric, 95-99% for age Seasonal allergies Endometriosis Anxiety Post-tonsillectomy hemorrhage [2] Allergies Allergen Reactions Cefdinir Hives Penicillins Rash [facility] 06-17-2025 Plan of care note Problem: Pain - Acute Goal: Reduced pain sensation Outcome: Ongoing Problem: Transition Readiness Goal: Knowledge of discharge instructions Outcome: Ongoing Goal: Able to safely transition to next level of care Outcome: Ongoing [facility] 06-17-2025 Plan of care note Problem: Pain - Acute Goal: Reduced pain sensation Outcome: Ongoing Problem: Transition Readiness Goal: Knowledge of discharge instructions Outcome: Ongoing Goal: Able to safely transition to next level of care Outcome: Ongoing [facility] 06-17-2025 Physician Emergency department Note Images from the original note were not included. Jocelyn Barajas : 2005 Chief Complaint Patient presents with Post T and A Bleed Allergies[1] DOS: 06/17/2025 20-year-old female presenting to the emergency department with bleeding status post tonsillectomy and adenoidectomy. Patient had procedure on and was discharged from the hospital on Thursday. Patient was recovering well at home but then started having episodes of bleeding from the previous tonsillectomy site. Patient had 2 episodes of spitting up blood at home and 1 episode of such in the emergency department, expectorating approximately 50 cc. Patient states that she is having severe pain over the site and can feel the blood running down the back of her mouth. History of Present Illness Review of Systems Review of Systems Patient History Past Medical History: Diagnosis Date ADHD (attention deficit hyperactivity disorder) Anxiety 03/10/2023 Asthma Depression Endometriosis 03/10/2023 Recurrent tonsillitis 03/20/2025 Urinary tract infection Past Surgical History: Procedure Laterality Date ABDOMINAL EXPLORATION SURGERY BLADDER SURGERY DENTAL SURGERY TONSILLECTOMY Bilateral 06/15/2025 Tonsillectomy 12+ Years Old performed by Guy Novak MD at [facility] OR Pediatric History Patient Parents Flor Jiménez (Mother) Fernando Barajas (Father) Other Topics Concern Interpersonal relationships Not Asked Poor school performance Not Asked Reading difficulties Not Asked Speech difficulties Not Asked Writing difficulties Not Asked Toilet training problems Not Asked Inadequate sleep Not Asked Excessive TV viewing Not Asked Excessive video game use Not Asked Inadequate exercise Not Asked Sports related Not Asked Poor diet Not Asked Second-hand smoke exposure Not Asked Alcohol/drug concerns Not Asked Violence concerns Not Asked Poor oral hygiene Not Asked Bike safety Not Asked Vehicle safety Not Asked Social History Narrative Not on file ED Triage Vitals Date and Time Temp Temp src Pulse Resp BP SpO2 User 06/17/25 0306 -- -- 78 22 -- 100 % NNC 06/17/25 0255 36.1 C (97 F) Temporal 97 20 145/82 Pt worked up 100 % KNB Physical Exam Constitutional: General: She is in acute distress. Appearance: Normal appearance. She is normal weight. She is ill-appearing. She is not toxic-appearing or diaphoretic. HENT: Head: Normocephalic and atraumatic. Mouth/Throat: Mouth: Mucous membranes are moist. Comments: Swelling of bilateral tonsils in the area of recent tonsillectomy and adenoidectomy site. Large area of clot with some swelling and oozing on the left Neck: Musculoskeletal: Normal range of motion and neck supple. No muscular tenderness. Cardiovascular: Rate and Rhythm: Normal rate and regular rhythm. Pulses: Normal pulses. Heart sounds: Normal heart sounds. No murmur heard. No friction rub. No gallop. Pulmonary: Effort: Pulmonary effort is normal. No respiratory distress. Breath sounds: Normal breath sounds. No stridor. No wheezing, rhonchi or rales. There is no cough present. Chest: Chest wall: No tenderness. Abdominal: General: [...] of motion and neck supple. No rigidity. No muscular tenderness. Right lower leg: No edema. Left lower leg: No edema. Lymphadenopathy: Cervical: No cervical adenopathy. Skin: General: Skin is warm and dry. Capillary Refill: Capillary refill takes less than 2 seconds. Coloration: Skin is not jaundiced or pale. Findings: No bruising, ecchymosis, erythema, lesion, rash or wound. Neurological: General: No focal deficit present. Mental Status: She is alert and oriented to person, place, and time. Cranial Nerves: No cranial nerve deficit. Sensory: No sensory deficit. Motor: No weakness. Coordination: Coordination normal. Gait: Gait normal. Psychiatric: Mood and Affect: Mood normal. Behavior: Behavior normal. Physical Exam Procedures Encounter Documentation/Handoff: Diagnosis' considered: Labs/Radiology: Consults: No orders of the defined types were placed in this encounter. Treatment/Reassessment: Admitting Provider Info: Bernardo Archuleta MD ENT Medical Decision Making 20-year-old female presenting to the emergency department with bleeding status post tonsillectomy and adenoidectomy. Patient has hemoglobin of 11.6, hematocrit of 35.2, and serum bicarbonate of 20.2 but no other abnormalities on laboratory work. Patient was given one 500 mcg inhalation of TXA. Patient's bleeding did stop in the emergency department. Patient was evaluated at bedside by ENT, who stated that they would admit her to the hospital. Problems Addressed: Post-tonsillectomy hemorrhage: complicated acute illness or injury Amount and/or Complexity of Data Reviewed Labs: ordered. Risk Prescription drug management. Decision regarding hospitalization. Final diagnoses: [J95.830] Post-tonsillectomy hemorrhage Attending note: I have reviewed the nursing notes, history of present illness, past medical, family, and social history, review of systems, and physical exam with the Resident. Based on my own interview and examination I have reviewed and agree with the History of Present Illness, Past Medical History, Family History, and Social History as documented. The Review of Systems is negative, except as documented. The Physical Exam as documented is accurate. Please see any additional documentation by me in MDM section. I participated in determining and agree with the management, final impression, and disposition as documented. I was present during any ocampo procedures. I personally supervised and was present for any ocampo procedures Electronically signed: 6:03 AM 06/17/25 Melissa Rubin DO [1] Allergies Allergen Reactions Cefdinir Hives Penicillins Rash [facility] Work Phone: 06-17-2025 Emergency department Note Images from the original note were not included. Jocelyn Barajas : 2005 Chief Complaint Patient presents with Post T and A Bleed Allergies[1] DOS: 06/17/2025 20-year-old female presenting to the emergency department with bleeding status post tonsillectomy and adenoidectomy. Patient had procedure on and was discharged from the hospital on Thursday. Patient was recovering well at home but then started having episodes of bleeding from the previous tonsillectomy site. Patient had 2 episodes of spitting up blood at home and 1 episode of such in the emergency department, expectorating approximately 50 cc. Patient states that she is having severe pain over the site and can feel the blood running down the back of her mouth. History of Present Illness Review of Systems Review of Systems Patient History Past Medical History: Diagnosis Date ADHD (attention deficit hyperactivity disorder) Anxiety 03/10/2023 Asthma Depression Endometriosis 03/10/2023 Recurrent tonsillitis 03/20/2025 Urinary tract infection Past Surgical History: Procedure Laterality Date ABDOMINAL EXPLORATION SURGERY BLADDER SURGERY DENTAL SURGERY TONSILLECTOMY Bilateral 06/15/2025 Tonsillectomy 12+ Years Old performed by Guy Novak MD at [facility] OR Pediatric History Patient Parents Flor Jiménez (Mother) Fernando Barajas (Father) Other Topics Concern Interpersonal relationships Not Asked Poor school performance Not Asked Reading difficulties Not Asked Speech difficulties Not Asked Writing difficulties Not Asked Toilet training problems Not Asked Inadequate sleep Not Asked Excessive TV viewing Not Asked Excessive video game use Not Asked Inadequate exercise Not Asked Sports related Not Asked Poor diet Not Asked Second-hand smoke exposure Not Asked Alcohol/drug concerns Not Asked Violence concerns Not Asked Poor oral hygiene Not Asked Bike safety Not Asked Vehicle safety Not Asked Social History Narrative Not on file ED Triage Vitals Date and Time Temp Temp src Pulse Resp BP SpO2 User 06/17/25 0306 -- -- 78 22 -- 100 % NNC 06/17/25 0255 36.1 C (97 F) Temporal 97 20 145/82 Pt worked up 100 % KNB Physical Exam Constitutional: General: She is in acute distress. Appearance: Normal appearance. She is normal weight. She is ill-appearing. She is not toxic-appearing or diaphoretic. HENT: Head: Normocephalic and atraumatic. Mouth/Throat: Mouth: Mucous membranes are moist. Comments: Swelling of bilateral tonsils in the area of recent tonsillectomy and adenoidectomy site. Large area of clot with some swelling and oozing on the left Neck: Musculoskeletal: Normal range of motion and neck supple. No muscular tenderness. Cardiovascular: Rate and Rhythm: Normal rate and regular rhythm. Pulses: Normal pulses. Heart sounds: Normal heart sounds. No murmur heard. No friction rub. No gallop. Pulmonary: Effort: Pulmonary effort is normal. No respiratory distress. Breath sounds: Normal breath sounds. No stridor. No wheezing, rhonchi or rales. There is no cough present. Chest: Chest wall: No tenderness. Abdominal: General: [...] of motion and neck supple. No rigidity. No muscular tenderness. Right lower leg: No edema. Left lower leg: No edema. Lymphadenopathy: Cervical: No cervical adenopathy. Skin: General: Skin is warm and dry. Capillary Refill: Capillary refill takes less than 2 seconds. Coloration: Skin is not jaundiced or pale. Findings: No bruising, ecchymosis, erythema, lesion, rash or wound. Neurological: General: No focal deficit present. Mental Status: She is alert and oriented to person, place, and time. Cranial Nerves: No cranial nerve deficit. Sensory: No sensory deficit. Motor: No weakness. Coordination: Coordination normal. Gait: Gait normal. Psychiatric: Mood and Affect: Mood normal. Behavior: Behavior normal. Physical Exam Procedures Encounter Documentation/Handoff: Diagnosis' considered: Labs/Radiology: Consults: No orders of the defined types were placed in this encounter. Treatment/Reassessment: Admitting Provider Info: Bernardo Archuleta MD ENT Medical Decision Making 20-year-old female presenting to the emergency department with bleeding status post tonsillectomy and adenoidectomy. Patient has hemoglobin of 11.6, hematocrit of 35.2, and serum bicarbonate of 20.2 but no other abnormalities on laboratory work. Patient was given one 500 mcg inhalation of TXA. Patient's bleeding did stop in the emergency department. Patient was evaluated at bedside by ENT, who stated that they would admit her to the hospital. Problems Addressed: Post-tonsillectomy hemorrhage: complicated acute illness or injury Amount and/or Complexity of Data Reviewed Labs: ordered. Risk Prescription drug management. Decision regarding hospitalization. Final diagnoses: [J95.830] Post-tonsillectomy hemorrhage Attending note: I have reviewed the nursing notes, history of present illness, past medical, family, and social history, review of systems, and physical exam with the Resident. Based on my own interview and examination I have reviewed and agree with the History of Present Illness, Past Medical History, Family History, and Social History as documented. The Review of Systems is negative, except as documented. The Physical Exam as documented is accurate. Please see any additional documentation by me in MDM section. I participated in determining and agree with the management, final impression, and disposition as documented. I was present during any ocampo procedures. I personally supervised and was present for any ocampo procedures Electronically signed: 6:03 AM 06/17/25 Melissa Rubin DO [1] Allergies Allergen Reactions Cefdinir Hives Penicillins Rash Patient ambulated to restroom at this time. Patient appears more comfortable at this time following medications. VSS. Family remains bedside, denies any needs. Patient here due to T and A bleed. Patient had tonsils removed on 06/16. Patient coughed and blood was noted. Patient went to sleep and within 30 minutes pt began actively bleeding. Patient alert. Skin normal for ethnicity. Respirations even and unlabored. Lungs clear. Heart sounds regular. Bowel sounds x4. Active bleeding noted. documented in this encounter [facility] 06-17-2025 Emergency department Note Patient ambulated to restroom at this time. Patient appears more comfortable at this time following medications. VSS. Family remains bedside, denies any needs. [facility] 06-17-2025 History and physical note AUREA HISTORIC PRESERVATIONIST NOTE ENT ENT HISTORY AND PHYSICAL DATE OF SERVICE: 06/17/2025 ATTENDING PROVIDER: Melissa Rubin DO PRIMARY CARE PROVIDER: Mitzy Fung MD CHIEF COMPLAINT: post op tonsillectomy hemorrhage REASON FOR HOSPITALIZATION: Acute or unresolved changes in physiologic status HISTORY OF PRESENT ILLNESS: Jocelyn is a 20 y.o. female who presents with post op tonsillectomy hemorrhage. She is accompanied by her mother. The history is provided by the patient. Patient is POD2 from T&A and drainage of tonsillar abscess. She was discharged yesterday POD1 doing well without any signs of bleeding. She was discharged on clindamycin. First episode of bleeding was around midnight. Patient stated she woke up and felt like she needed a deep cough. She coughed and blood/mucous mix came out. She kept feeling like the back of her throat was filling up but kept swallowing it thinking it was spit. Then her stomach started to hurt and she had a few episodes of bloody emesis. Her mom brought her to the ED. On the way in she continued to gag and have bloody emesis. Upon arrival to the ED she was having active bleeding. Labs were drawn and patient was given inhaled TXA. After TXA administration, patient has not had further bleeding. Patient has been constipated since surgery, so took a stool softener at home which led to a bowel movement. She has been consistent with her soft diet at home. Denies eating anything crunchy or sharp. She has been taking tylenol and motrin alternated at home. She has also remained on her clindamycin. She was due for ibuprofen at 3 am but didn't get it due to being in the ER. She did well with anesthesia for her T&A. REVIEW OF SYSTEMS: Eyes: Within normal limits Ears: Within normal limits Nose: Within normal limits Throat: Bleeding episodes today Lungs: Within normal limits Heart: Within normal limits Gastrointestinal: Constipation Genitourinary: Within normal limits Nervous System: Within normal limits Endocrine: Within normal limits MEDICAL/SURGICAL HISTORY: Past Medical History: Diagnosis Date ADHD (attention deficit hyperactivity disorder) Anxiety 03/10/2023 Asthma Depression Endometriosis 03/10/2023 Recurrent tonsillitis 03/20/2025 Urinary tract infection Past Surgical History: Procedure Laterality Date ABDOMINAL EXPLORATION SURGERY BLADDER SURGERY DENTAL SURGERY TONSILLECTOMY Bilateral 06/15/2025 Tonsillectomy 12+ Years Old performed by Guy Novak MD at [facility] OR HISTORY: No history on file. DEVELOPMENTAL HISTORY: Milestones: Not pertinent DIET HISTORY: Age appropriate / normal for age DRUG/FOOD ALLERGIES: Allergies[1] IMMUNIZATIONS: Immunization History Administered Date(s) Administered DTaP 2005, 2005, 2005, 11/26/2006, 05/10/2010 DTaP/Hep B/IPV (PEDIARIX) 2005 HIB 2005, 2005, 2005, 06/08/2006 HPV 9-valent 04/29/2018, 04/16/2020 Hepatitis A (PED/ADOL) 04/29/2018, 04/16/2020 Hepatitis B Ped/Adol 2005, 2005, 2005 INFLUENZA SPLIT 0.5 ML 05/10/2010, 06/07/2010, 04/22/2012 IPV 2005, 2005, 2005, 05/10/2010 Influenza Vaccine 0.5 mL Quadrivalent (PF) 06/30/2017, 04/30/2021 Influenza Vaccine 0.5 mL Trivalent (PF) 09/07/2024 Influenza Vaccine Intranasal Quadrivalent 05/10/2014, 05/14/2015 MENINGOCOCCAL CONJUGATE ACWY VACCINE (MENACTRA) 04/28/2017, 04/26/2021 MMR 06/08/2006 MMRV (PROQUAD) 05/10/2010 PFIZER (purple cap) COVID-19, mRNA, LNP-S, 30mcg/0.3mL dose 04/30/2021, 05/22/2021 Pneumococcal Conjugate 2005, 02/20/2006, 06/08/2006, 11/26/2006 Polio, Unspecified Formulation 2005 Serogroup B Meningococcal Vaccine (BEXSERO) 04/26/2021, 03/10/2023 Tdap 04/28/2017 Varicella 11/26/2006 MEDICATIONS: Prescriptions Prior to Admission[2] Current Medications[3] PSYCH/SOCIAL HISTORY: Jocelyn lives with parents Special Needs: None Preferred Language: [place] VITAL SIGNS: Vitals: 06/17/25 0351 BP: Pulse: 65 Resp: 12 Temp: Weight - Scale: 56.4 kg PHYSICAL EXAM: On physical examination, this is a well developed well nourished child in no apparent distress. Cranium is normocephalic. Eyes show normal extraocular mobility without nystagmus, and the sclerae are clear. The auricles are normal in size, shape, and position bilaterally. There is no drainage from the nasopharynx. There is normal mandibular position with no trismus. Oral examination shows pink mucosa without lesions, tonsils that are surgically absent bilaterally with white eschar on R tonsillar region and large clot without active bleeding on L tonsillar region, and a palate that is intact and rises symmetrically. Neck without massess or enlargement. Cranial nerves II-XII are grossly intact. Vocalizations are normal without stridor or stertor. There are no retractions and no wheezing. Cutaneous exam reveals no jaundice or cyanosis. DIAGNOSTIC STUDIES REVIEWED: Recent Labs 06/17/25 031 RBC 4.14 WBC 11.6* HCT 35.2* HGB 11.9 MCH 28.7 MCHC 33.8 MCV 85.0 MPV 10.1 BASOPCT 0.3 EOSPCT 1.8 MONOPCT 6.7 NEUTOPHILPCT 65.2 NEUTROPHIL 7.54* Recent Labs 06/17/25317 CO2 20.2* CL 107 K 3.9 NA 139 Cultures last 72 hrs No results found for the last [address] Soft Tissue Neck with IV contrast Result Date: 06/14/2025 CLINICAL HISTORY: Peritonsillar abscess with worsening pain TECHNIQUE: CT of the neck was performed with sagittal and coronal reformats with intravenous contrast. The patient was injected with 75 cc of Isovue-300. DOSE LINEAR PRODUCT: 358.78 mGy-cm. COMPARISON: 03/20/2025, 06/12/2025. FINDINGS: TONSILS/ADENOIDS: Since the last study the left peritonsillar abscess has increased in size. It measures 2.1 x 1.8 x 3.3 cm in AP, transverse and craniocaudal dimensions. It measures 1.5 x 1.5 x 2.2 cm on the last study. LYMPH NODES: There are reactive lymph nodes in the left side of the neck. SALIVARY GLANDS: Normal. NECK SPACES: Normal. VASCULATURE: Normal. PARANASAL SINUSES: Normal. ORBITS: Imaged portions appear normal. THYROID GLAND: Normal. LUNG APICES: Normal. CERVICAL SPINE: Normal. BRAIN: Imaged portions appear normal. IMPRESSION: The left peritonsillar abscess has increased in size since the last exam. No new abscess is seen. This report has been created using voice recognition software ASSESSMENT: Jocelyn is a 20 y.o. female who is POD2 from T&A and L tonsillar abscess drainage who presents with post operative tonsillectomy hemorrhage. She received a dose of inhaled TXA which has halted the bleeding. Her clotting labs were unremarkable. Her H/H is normal. Her vitals remain stable. PLAN: -Admit to ENT service for observation -Clear liquid diet -Tylenol q6hrs -Zofran PRN -Continue home clindamycin -Continue to monitor for re-bleed -Will reassess later this morning EDUCATION: Discussion with parent/patient (diagnosis, plan) DISCHARGE PLANNING: Discharge planning in 8-12 hrs after observation for bleeding. Tere Em PA-C 4:07 AM [1] Allergies Allergen Reactions Cefdinir Hives Penicillins Rash [2] (Not in a hospital admission) [3] Current Facility-Administered Medications Medication Dose Route Frequency Provider Last Rate Last Admin NaCl 0.9% PosiFlush 2 mL 2 mL Intravenous PRN Melissa Rubin, DO NaCl 0.9% PosiFlush 10 mL 10 mL Intravenous PRN Melissa Rubin, DO NaCl 0.9% IV 1,000 mL Intravenous Once Melissa Rubin, DO 984 mL/hr at 06/17/25 0320 1,000 mL at 06/17/25 0320 Current Outpatient Medications Medication Sig Dispense Refill ibuprofen (ADVIL; MOTRIN) 100 MG/5ML suspension Take 29.4 mL (588 mg) by mouth every 6 hours as needed for Pain clindamycin (CLEOCIN) 300 MG capsule Take 2 Capsules (600 mg) by mouth every 8 hours for 10 days 60 Capsule 0 oxyCODONE (ROXICODONE) 5 MG/5ML solution Take 2.9 mL (2.9 mg) by mouth every 6 hours as needed for Pain for up to 10 doses 29 mL 0 FLUoxetine (PROZAC) 10 MG capsule propranolol (INDERAL) 10 MG tablet Take 1 Tablet (10 mg) by mouth 2 times daily as needed for Other (anxiety) Spacer/Aero-Holding Chambers ([facility]) MISC DEVICE Use with inhaled medication as instructed. 1 Each 0 cetirizine (ZYRTEC) 10 MG tablet Take 1 Tablet (10 mg) by mouth daily 30 Tablet 11 acetaminophen (TYLENOL) 500 MG tablet Take 2 Tablets (1,000 mg) by mouth every 6 hours as needed for Pain or Fever Take no more than 5 doses in a 24 hour period 30 Tablet 1 Beclomethasone Diprop (QVAR REDIHALER) 40 MCG/ACT AERB Redihaler Inhale 2 Puffs into the lungs 2 times daily 1 Each 11 albuterol (VENTOLIN) (2.5 MG/3ML) 0.083% nebulizer solution Use 3 mL (2.5 mg) by nebulization every 4 hours as needed for Wheezing or Shortness of Breath (Cough) 100 Each 1 Cosigned by Bernardo Archuleta MD at 06/17/2025 10:56 AM EDT [facility] Work Phone: 06-17-2025 Note AUREA HISTORIC PRESERVATIONIST NO TE ENT ENT HISTORY AND PHYSICAL DATE OF SERVICE: 06/17/2025 ATTENDING PROVIDER: Melissa Rubin DO PRIMARY CARE PROVIDER: Mitzy Fung MD CHIEF COMPLAINT: post op tonsillectomy hemorrhage REASON FOR HOSPITALIZATION: Acute or unresolved changes in physiologic status HISTORY OF PRESENT ILLNESS: Jocelyn is a 20 y.o. female who presents with post op tonsillectomy hemorrhage. She is accompanied by her mother. The history is provided by the patient. Patient is POD2 from T&A and drainage of tonsillar abscess. She was discharged yesterday POD1 doing well without any signs of bleeding. She was discharged on clindamycin. First episode of bleeding was around midnight. Patient stated she woke up and felt like she needed a deep cough. She coughed and blood/mucous mix came out. She kept feeling like the back of her throat was filling up but kept swallowing it thinking it was spit. Then her stomach started to hurt and she had a few episodes of bloody emesis. Her mom brought her to the ED. On the way in she continued to gag and have bloody emesis. Upon arrival to the ED she was having active bleeding. Labs were drawn and patient was given inhaled TXA. After TXA administration, patient has not had further bleeding. Patient has been constipated since surgery, so took a stool softener at home which led to a bowel movement. She has been consistent with her soft diet at home. Denies eating anything crunchy or sharp. She has been taking tylenol and motrin alternated at home. She has also remained on her clindamycin. She was due for ibuprofen at 3 am but didn't get it due to being in the ER. She did well with anesthesia for her T&A. REVIEW OF SYSTEMS: Eyes: Within normal limits Ears: Within normal limits Nose: Within normal limits Throat: Bleeding episodes today Lungs: Within normal limits Heart: Within normal limits Gastrointestinal: Constipation Genitourinary: Within normal limits Nervous System: Within normal limits Endocrine: Within normal limits MEDICAL/SURGICAL HISTORY: Past Medical History: Diagnosis Date ADHD (attention deficit hyperactivity disorder) Anxiety 03/10/2023 Asthma Depression Endometriosis 03/10/2023 Recurrent tonsillitis 03/20/2025 Urinary tract infection Past Surgical History: Procedure Laterality Date ABDOMINAL EXPLORATION SURGERY BLADDER SURGERY DENTAL SURGERY TONSILLECTOMY Bilateral 06/15/2025 Tonsillectomy 12+ Years Old performed by Guy Novak MD at [facility] OR HISTORY: No history on file. DEVELOPMENTAL HISTORY: Milestones: Not pertinent DIET HISTORY: Age appropriate / normal for age DRUG/FOOD ALLERGIES: Allergies[1] IMMUNIZATIONS: Immunization History Administered Date(s) Administered DTaP 2005, 2005, 2005, 11/26/2006, 05/10/2010 DTaP/Hep B/IPV (PEDIARIX) 2005 HIB 2005, 2005, 2005, 06/08/2006 HPV 9-valent 04/29/2018, 04/16/2020 Hepatitis A (PED/ADOL) 04/29/2018, 04/16/2020 Hepatitis B Ped/Adol 2005, 2005, 2005 INFLUENZA SPLIT 0.5 ML 05/10/2010, 06/07/2010, 04/22/2012 IPV 2005, 2005, 2005, 05/10/2010 Influenza Vaccine 0.5 mL Quadrivalent (PF) 06/30/2017, 04/30/2021 Influenza Vaccine 0.5 mL Trivalent (PF) 09/07/2024 Influenza Vaccine Intranasal Quadrivalent 05/10/2014, 05/14/2015 MENINGOCOCCAL CONJUGATE ACWY VACCINE (MENACTRA) 04/28/2017, 04/26/2021 MMR 06/08/2006 MMRV (PROQUAD) 05/10/2010 PFIZER (purple cap) COVID-19, mRNA, LNP-S, 30mcg/0.3mL dose 04/30/2021, 05/22/2021 Pneumococcal Conjugate 2005, 02/20/2006, 06/08/2006, 11/26/2006 Polio, Unspecified Formulation 2005 Serogroup B Meningococcal Vaccine (BEXSERO) 04/26/2021, 03/10/2023 Tdap 04/28/2017 Varicella 11/26/2006 MEDICATIONS: Prescriptions Prior to Admission[2] Current Medications[3] PSYCH/SOCIAL HISTORY: Jocelyn lives with parents Special Needs: None Preferred Language: [place] VITAL SIGNS: Vitals: 06/17/25 0351 BP: Pulse: 65 Resp: 12 Temp: Weight - Scale: 56.4 kg PHYSICAL EXAM: On physical examination, this is a well developed well nourished child in no apparent distress. Cranium is normocephalic. Eyes show normal extraocular mobility without nystagmus, and the sclerae are clear. The auricles are normal in size, shape, and position bilaterally. There is no drainage from the nasopharynx. There is normal mandibular position with no trismus. Oral examination shows pink mucosa without lesions, tonsils that are surgically absent bilaterally with white eschar on R tonsillar region and large clot without active bleeding on L tonsillar region, and a palate that is intact and rises symmetrically. Neck without massess or enlargement. Cranial nerves II-XII are grossly intact. Vocalizations are normal without stridor or stertor. There are no retractions and no wheezing. Cutaneous exam reveals no jaundice or (more content not included)... [facility] 06-17-2025 History and physical note AUREA HISTORIC PRESERVATIONIST NOTE ENT ENT HISTORY AND PHYSICAL DATE OF SERVICE: 06/17/2025 ATTENDING PROVIDER: Melissa Rubin DO PRIMARY CARE PROVIDER: Mitzy Fnug MD CHIEF COMPLAINT: post op tonsillectomy hemorrhage REASON FOR HOSPITALIZATION: Acute or unresolved changes in physiologic status HISTORY OF PRESENT ILLNESS: Jocelyn is a 20 y.o. female who presents with post op tonsillectomy hemorrhage. She is accompanied by her mother. The history is provided by the patient. Patient is POD2 from T&A and drainage of tonsillar abscess. She was discharged yesterday POD1 doing well without any signs of bleeding. She was discharged on clindamycin. First episode of bleeding was around midnight. Patient stated she woke up and felt like she needed a deep cough. She coughed and blood/mucous mix came out. She kept feeling like the back of her throat was filling up but kept swallowing it thinking it was spit. Then her stomach started to hurt and she had a few episodes of bloody emesis. Her mom brought her to the ED. On the way in she continued to gag and have bloody emesis. Upon arrival to the ED she was having active bleeding. Labs were drawn and patient was given inhaled TXA. After TXA administration, patient has not had further bleeding. Patient has been constipated since surgery, so took a stool softener at home which led to a bowel movement. She has been consistent with her soft diet at home. Denies eating anything crunchy or sharp. She has been taking tylenol and motrin alternated at home. She has also remained on her clindamycin. She was due for ibuprofen at 3 am but didn't get it due to being in the ER. She did well with anesthesia for her T&A. REVIEW OF SYSTEMS: Eyes: Within normal limits Ears: Within normal limits Nose: Within normal limits Throat: Bleeding episodes today Lungs: Within normal limits Heart: Within normal limits Gastrointestinal: Constipation Genitourinary: Within normal limits Nervous System: Within normal limits Endocrine: Within normal limits MEDICAL/SURGICAL HISTORY: Past Medical History: Diagnosis Date ADHD (attention deficit hyperactivity disorder) Anxiety 03/10/2023 Asthma Depression Endometriosis 03/10/2023 Recurrent tonsillitis 03/20/2025 Urinary tract infection Past Surgical History: Procedure Laterality Date ABDOMINAL EXPLORATION SURGERY BLADDER SURGERY DENTAL SURGERY TONSILLECTOMY Bilateral 06/15/2025 Tonsillectomy 12+ Years Old performed by Guy Novak MD at [facility] OR HISTORY: No history on file. DEVELOPMENTAL HISTORY: Milestones: Not pertinent DIET HISTORY: Age appropriate / normal for age DRUG/FOOD ALLERGIES: Allergies[1] IMMUNIZATIONS: Immunization History Administered Date(s) Administered DTaP 2005, 2005, 2005, 11/26/2006, 05/10/2010 DTaP/Hep B/IPV (PEDIARIX) 2005 HIB 2005, 2005, 2005, 06/08/2006 HPV 9-valent 04/29/2018, 04/16/2020 Hepatitis A (PED/ADOL) 04/29/2018, 04/16/2020 Hepatitis B Ped/Adol 2005, 2005, 2005 INFLUENZA SPLIT 0.5 ML 05/10/2010, 06/07/2010, 04/22/2012 IPV 2005, 2005, 2005, 05/10/2010 Influenza Vaccine 0.5 mL Quadrivalent (PF) 06/30/2017, 04/30/2021 Influenza Vaccine 0.5 mL Trivalent (PF) 09/07/2024 Influenza Vaccine Intranasal Quadrivalent 05/10/2014, 05/14/2015 MENINGOCOCCAL CONJUGATE ACWY VACCINE (MENACTRA) 04/28/2017, 04/26/2021 MMR 06/08/2006 MMRV (PROQUAD) 05/10/2010 PFIZER (purple cap) COVID-19, mRNA, LNP-S, 30mcg/0.3mL dose 04/30/2021, 05/22/2021 Pneumococcal Conjugate 2005, 02/20/2006, 06/08/2006, 11/26/2006 Polio, Unspecified Formulation 2005 Serogroup B Meningococcal Vaccine (BEXSERO) 04/26/2021, 03/10/2023 Tdap 04/28/2017 Varicella 11/26/2006 MEDICATIONS: Prescriptions Prior to Admission[2] Current Medications[3] PSYCH/SOCIAL HISTORY: Jocelyn lives with parents Special Needs: None Preferred Language: [place] VITAL SIGNS: Vitals: 06/17/25 0351 BP: Pulse: 65 Resp: 12 Temp: Weight - Scale: 56.4 kg PHYSICAL EXAM: On physical examination, this is a well developed well nourished child in no apparent distress. Cranium is normocephalic. Eyes show normal extraocular mobility without nystagmus, and the sclerae are clear. The auricles are normal in size, shape, and position bilaterally. There is no drainage from the nasopharynx. There is normal mandibular position with no trismus. Oral examination shows pink mucosa without lesions, tonsils that are surgically absent bilaterally with white eschar on R tonsillar region and large clot without active bleeding on L tonsillar region, and a palate that is intact and rises symmetrically. Neck without massess or enlargement. Cranial nerves II-XII are grossly intact. Vocalizations are normal without stridor or stertor. There are no retractions and no wheezing. Cutaneous exam reveals no jaundice or cyanosis. DIAGNOSTIC STUDIES REVIEWED: Recent Labs 06/17/25317 RBC 4.14 WBC 11.6* HCT 35.2* HGB 11.9 MCH 28.7 MCHC 33.8 MCV 85.0 MPV 10.1 BASOPCT 0.3 EOSPCT 1.8 MONOPCT 6.7 NEUTOPHILPCT 65.2 NEUTROPHIL 7.54* Recent Labs 06/17/25317 CO2 20.2* CL 107 K 3.9 NA 139 Cultures last 72 hrs No results found for the last [address] Soft Tissue Neck with IV contrast Result Date: 06/14/2025 CLINICAL HISTORY: Peritonsillar abscess with worsening pain TECHNIQUE: CT of the neck was performed with sagittal and coronal reformats with intravenous contrast. The patient was injected with 75 cc of Isovue-300. DOSE LINEAR PRODUCT: 358.78 mGy-cm. COMPARISON: 03/20/2025, 06/12/2025. FINDINGS: TONSILS/ADENOIDS: Since the last study the left peritonsillar abscess has increased in size. It measures 2.1 x 1.8 x 3.3 cm in AP, transverse and craniocaudal dimensions. It measures 1.5 x 1.5 x 2.2 cm on the last study. LYMPH NODES: There are reactive lymph nodes in the left side of the neck. SALIVARY GLANDS: Normal. NECK SPACES: Normal. VASCULATURE: Normal. PARANASAL SINUSES: Normal. ORBITS: Imaged portions appear normal. THYROID GLAND: Normal. LUNG APICES: Normal. CERVICAL SPINE: Normal. BRAIN: Imaged portions appear normal. IMPRESSION: The left peritonsillar abscess has increased in size since the last exam. No new abscess is seen. This report has been created using voice recognition software ASSESSMENT: Jocelyn is a 20 y.o. female who is POD2 from T&A and L tonsillar abscess drainage who presents with post operative tonsillectomy hemorrhage. She received a dose of inhaled TXA which has halted the bleeding. Her clotting labs were unremarkable. Her H/H is normal. Her vitals remain stable. PLAN: -Admit to ENT service for observation -Clear liquid diet -Tylenol q6hrs -Zofran PRN -Continue home clindamycin -Continue to monitor for re-bleed -Will reassess later this morning EDUCATION: Discussion with parent/patient (diagnosis, plan) DISCHARGE PLANNING: Discharge planning in 8-12 hrs after observation for bleeding. Tere Em PA-C 4:07 AM [1] Allergies Allergen Reactions Cefdinir Hives Penicillins Rash [2] (Not in a hospital admission) [3] Current Facility-Administered Medications Medication Dose Route Frequency Provider Last Rate Last Admin NaCl 0.9% PosiFlush 2 mL 2 mL Intravenous PRN Melissa Rubin, DO NaCl 0.9% PosiFlush 10 mL 10 mL Intravenous PRN Melissa Rubin, DO NaCl 0.9% IV 1,000 mL Intravenous Once Melissa Rubin DO 984 mL/hr at 06/17/25 0320 1,000 mL at 06/17/25 0320 Current Outpatient Medications Medication Sig Dispense Refill ibuprofen (ADVIL; MOTRIN) 100 MG/5ML suspension Take 29.4 mL (588 mg) by mouth every 6 hours as needed for Pain clindamycin (CLEOCIN) 300 MG capsule Take 2 Capsules (600 mg) by mouth every 8 hours for 10 days 60 Capsule 0 oxyCODONE (ROXICODONE) 5 MG/5ML solution Take 2.9 mL (2.9 mg) by mouth every 6 hours as needed for Pain for up to 10 doses 29 mL 0 FLUoxetine (PROZAC) 10 MG capsule propranolol (INDERAL) 10 MG tablet Take 1 Tablet (10 mg) by mouth 2 times daily as needed for Other (anxiety) Spacer/Aero-Holding Chambers ([facility]) MISC DEVICE Use with inhaled medication as instructed. 1 Each 0 cetirizine (ZYRTEC) 10 MG tablet Take 1 Tablet (10 mg) by mouth daily 30 Tablet 11 acetaminophen (TYLENOL) 500 MG tablet Take 2 Tablets (1,000 mg) by mouth every 6 hours as needed for Pain or Fever Take no more than 5 doses in a 24 hour period 30 Tablet 1 Beclomethasone Diprop (QVAR REDIHALER) 40 MCG/ACT AERB Redihaler Inhale 2 Puffs into the lungs 2 times daily 1 Each 11 albuterol (VENTOLIN) (2.5 MG/3ML) 0.083% nebulizer solution Use 3 mL (2.5 mg) by nebulization every 4 hours as needed for Wheezing or Shortness of Breath (Cough) 100 Each 1 Cosigned by Bernardo Archuleta MD at 06/17/2025 10:56 AM EDT documented in this encounter [facility] 06-17-2025 Emergency department Triage note Patient here due to T and A bleed. Patient had tonsils removed on 06/16. Patient coughed and blood was noted. Patient went to sleep and within 30 minutes pt began actively bleeding. Patient alert. Skin normal for ethnicity. Respirations even and unlabored. Lungs clear. Heart sounds regular. Bowel sounds x4. Active bleeding noted. [facility] 06-16-2025 Progress note Formatting of t his note might be different from the original. Multidisciplinary Team Meeting Assessment/Plan of Care Reviewed at 1000 Are there Case Management needs identified at this time? Not at this time. [facility] will continue to monitor closely for potential home care (services/equipment) needs. Representatives: Case Management: Alice Mary RN Social Work: Maricarmen Andersen GLOBAL SAFETY OFFICER CANE PACKER Child Life: Angi Sherman CCLS, Ney Frazier Nursing: Susy Carrasco RN relief charge Cable Installer Repairer Helper: Mary Penn Home [facility]: Crys Jiménez RN, Richard Null RN IV SL; clinda q6; tylenol q6; motrin q6 Plan for discharge today [facility] 06-16-2025 Miscellaneous Notes Multidisciplinary Team Meeting Assessment/Plan of Care Reviewed at 1000 Are there Case Management needs identified at this time? Not at this time. [facility] will continue to monitor closely for potential home care (services/equipment) needs. Representatives: Case Management: Alice Mary RN Social Work: Maricarmen Andersen GLOBAL SAFETY OFFICER CANE PACKER Child Life: Angi Sherman CCLS, Ney Frazier Nursing: Susy Carrasco RN relief charge Cable Installer Repairer Helper: Mary Penn Home Health: Crys Jiménez RN, Richard Null RN IV SL; clinda q6; tylenol q6; motrin q6 Plan for discharge today Patient is POD #1 following adenotonsillectomy. She has been doing well postoperatively. Tolerating good PO. Afebrile. VSS. Oropharynx without clots or bleeding. T&A soft diet for 2 weeks. No strenuous activity for 2 weeks. No school/daycare for 1 week. Motrin and Tylenol for pain. Roxicodone for breakthrough pain. Instructions and prescriptions given to family prior to discharge. J CARLOS Emanuel Problem: Nausea/Vomiting Goal: Post operative nausea and vomiting Outcome: Met This Shift Problem: Gas Exchange - Impaired Goal: Absence of hypoxia Outcome: Met This Shift Problem: Falls, Risk of Goal: Absence of falls Outcome: Met This Shift Goal: Absence of physical injury Outcome: Met This Shift NUTRITION SCREENING: Reviewed H&P, progress notes, nursing nutrition screen, problem list, growth, current nutrition support, nutritionally significant labs and medications. Jocelyn Barajas is a 20 y.o. female Problem List[1] Past Medical History: Diagnosis Date ADHD (attention deficit hyperactivity disorder) Anxiety 03/10/2023 Asthma Depression Endometriosis 03/10/2023 Recurrent tonsillitis 03/20/2025 Urinary tract infection Current Diet: T&A Modified Consistency PO Intake(%): 0% Allergies[2] There is no height or weight on file to calculate BMI. at the No height and weight on file for this encounter. Medications: reviewed Lab Results: glucose within normal limits Recent Labs 06/14/25 1320 NA 139 K 3.7 CL 104 CO2 21.1* BUN 8 GLU 82 CALCIUM 9.6 CREATININE 0.66 Nutrition Concerns: Patient presents with throat pain and was admitted for T&A procedure. PO intake has been poor, 0%. Follow up to monitor PO intake. BMI= 21.57. Plan: Hand Expansion Envelope Maker/Import/Export Clerk to follow-up in three days. Monitor for adequate nutritional intake, tolerance, clinical condition, and weight changes. Demetra Small [facility] June 15, 2025 [1] Patient Active Problem List Diagnosis Attention deficit disorder with hyperactivity(314.01) Asthma, mild persistent BMI (body mass index), pediatric, 95-99% for age Seasonal allergies Endometriosis Anxiety Recurrent tonsillitis Peritonsillar abscess Tonsillar abscess [2] Allergies Allergen Reactions Cefdinir Hives Penicillins Rash Patient is s/p following adenotonsillectomy. She has been doing well postoperatively. Afebrile. VSS. Motrin and Tylenol for pain- consider liquid if not able to swallow pills. Advance T&A soft diet as tolerated. We will reassess in the morning. Recommendations discussed with Primary Team. Marcela Lowe APRN-SENIOR IT PROJECT MANAGER [employer] Work Brief Patient's Name: Jocelyn Barajas Date of : 2005 Gender: female Address: [address] [place], [place] [id number] (home) Referral Date of Referral: 06/15/2025 Time of Referral: 930 Date of Intervention: 06/15/2025 Time of Intervention: 1324 Referral Site: #[id number] Reason for Referral: [facility] History: Chart reviewed and case was discussed with team in multidisciplinary rounds on unit this morning. Patient is a 20 year old female who is admitted for worsening throat pain and a planned tonsillectomy scheduled for today. Per H&P history of anxiety, ADHD, mild persistent asthma, seasonal allergies, endometriosis, and recurrent tonsillitis/peritonsillar abscess who presents with left sided throat pain following recent admission and discharge yesterday (06/12-06/13) for intratonsillar abscess with planned upcoming tonsillectomy tomorrow. She again presents with worsening left sided throat pain on home oral antibiotics. Jocelyn has an extensive and recurrent history of tonsillitis and peritonsillar abscesses and has been working toward surgical removal which has been postponed multiple times due to recurrent infections. She was recently admitted 06/12-06/13 and at that time presented after 3 days of left sided throat pain, trismus, and muffled voice. She was evaluated by ENT and started on IV Clindamycin (d/t Amoxicillin allergy) with improvement in symptoms and continued plan for OR with ENT on 06/15. ENT recommended discharge due to improvement in pain and symptoms on oral antibiotics until surgery. ENT provider confirmed with anesthesia surgery still to occur on 06/15. She was discharged home yesterday afternoon 06/13 with Q8h oral Clindamycin prescription sent to local pharmacy. She then presented today with worsening left side throat pain which she rated 8/10, took antibiotic and sips of water for meds at home. Concern with worsening throat pain and feeling of difficulty swallowing. In the ED: Due to worsening pain given morphine and Tylenol in the ED along with a 500mL LR bolus and started on maintenance IVF. ENT evaluated and recommended admitted until surgery tomorrow, 06/15. No IV toradol, no Decadron. On the floor: Jocelyn in significant pain 06/02 described as squeezing and crushing and feeling like something is going to pop behind left ear up to her head. Noted to be shaking from pain, sweating, and tearful. She described the pain as the worst pain ever. Evaluated by Dr. Patten who recommended a stat neck CT with contrast. Updated ENT on worsening pain. Old Chart Review: No previous contact with [facility] Social Work. 1330 - Patient is currently off the unit in OR. 1423 - Presented to patient's room. Patient back from OR and parents are at bedside. Introduced myself and explained role. Reviewed reason for consult. Mother states she thought it was explained to her that they could stay at [facility] after patient is discharged. Mom explained that they were concerned because they live in [place] and if Jocelyn had further problems with breathing & bleeding, it would be a long drive back to [facility]. Reviewed that sometimes this can be arranged, but that [facility] staff need to approve this plan. Provided mom with [facility] application and that I would check with medical team about plan. Parents denied they had any other questions or concerns at this time. Communicated with J CARLOS Paula via secure chat. Impression: Patient is a 20 year old female who was admitted for acute tonsillitis with intratonsillar abscess. Parents at bedside. Parents aware of [facility] availability & have been provided with an application that they'll need to complete and submit if they want to reserve a room. Parents would need to discuss with [facility] staff if they could stay there after patient is medically cleared for discharge. Plan: Monitor case during admission to medical unit. Response to Plan: Parents verbalized understanding. ANTHONY Stallworth, [facility] 06/15/2025 Plan of care on going Draw Furnace Tender Note Patient Name: Jocelyn Barajas Date of : 2005 Date of Visit: Visit: Type of Visit: Initial Time Spent (minutes): 10 Visited With: Patient;Mother;Father Reason for Visit: Consult Referral From: Other (comment) Mom and dad in room, Jocelyn in bed under blanket. Jocelyn reports a great deal of pain when she took head out from under blanket. Gave mom paperwork for Advanced Directives and went over some of it, but mom is going to speak more with Angelia after surgery when she is feeling better. Safe Deposit Box Rental Clerk encouraged mom and Angelia to contact special inspector department with any questions or any further needed assistance. Mom requested prayers. Angelia expressed appreciation for visit and prayers. Assessment: Emotional Distress: Moderate Present Coping Level: Average Level of Support: Strong Response: Appropriate to situation Source of Support: Family Spiritual Distress: Low Interventions: Response: Reviewed information;Encouraged self-care Facilitated: Identification of emotions;Advance directive assistance Identified/evaluated: Coping strategies;Support system Provided: Draw Furnace Tender education;Prayer;Initiated relationship of care/support Draw Furnace Tender Outcomes: Outcomes: Expressed gratitude;Seemed less anxious Plan: Draw Furnace Tender Plan: Follow as circumstances allow [place]orro Ly Name: Jocelyn Barajas Date of : 2005 Unit #: [id number] Date: 06/15/2025 Surgeon: Guy Novak M.D., M.S. Import/Export Clerk: OPERATIVE REPORT PREOPERATIVE DIAGNOSIS: 1. Chronic tonsillitis 2. Tonsillar hypertrophy 3. Acute tonsillitis with intratonsillar abscess POSTOPERATIVE DIAGNOSIS: 1. Chronic tonsillitis 2. Tonsillar hypertrophy 3. Acute tonsillitis with intratonsillar abscess OPERATION: 1. Tonsillectomy, quinsy ANESTHESIA: General endotracheal CLINICAL HISTORY: Jocelyn is a 20 y.o. female with a history of chronic tonsillitis, requiring multiple courses of antibiotics, who has had recurrent/persistent intratonsillar abscess on the left. Consent is provided for the above procedures. DESCRIPTION OF OPERATIVE PROCEDURE: The patient was brought to the operating room and placed in the supine position. After successful endotracheal intubation by the anesthesia staff, the patient was positioned in the typical fashion with a shoulder roll, head doughnut, and eye protection. A head wrap was then placed. A McIvor oral retractor was placed into the oral cavity and used to expose the oropharynx. This was suspended from the Francis stand. Next, the right tonsil was grasped with the curved Allis forceps and the coblation hand piece was advanced into the oral cavity and used to coblate the medial edge of the anterior tonsillar pillar. This was carried down onto the tonsillar capsule in its inferior and lateral positions. Dissection then proceeded in a capsular plane inferiorly, laterally, and then eventually around the superior pole. The specimen was handed off for pathology. Any small bleeders in the tonsillar bed were controlled with the cauterization element of the coblation hand piece. The identical procedure was then repeated on the left side; however, on this side, there is a deep pocket of pus that was released. Suction cautery was used to treat several areas in the abscess cavity/tonsil bed. No further bleeding was noted. The retractor was then removed, and the patient was allowed to awaken from the anesthesia. The patient was extubated in the operating room without difficulty. There were no complications. EBL: 30 cc Associated Problem(s): Peritonsillar abscess (Resolved 06/16/2025) Jocelyn Barajas is a 20 y.o. female with history of anxiety, ADHD, mild persistent asthma, seasonal allergies, endometriosis, and recurrent tonsillitis with recent admission (06/12-06/13) for left peritonsillar abscess who presents with worsening throat pain and voice changes while on oral antibiotics with planned tonsillectomy today. - IV Clindamycin Q6h ( PCN allergy) - VS Q4h - Tylenol 1000 mg PO Q6h ATC - No Motrin or Toradol for now due to surgery - Oxycodone 5 mg Q4h PRN re: moderate pain - Morphine 4 mg Q4h PRN re: severe pain - NPO - mIVF - Strict I&Os - Consult to ENT - Hold Home Albuterol neb PRN, Qvar BID, Zyrtec daily, Prozac daily, Propranolol BID PRN re: anxiety- Restart post-op -Urine HCG for surgery Associated Problem(s): Recurrent tonsillitis (Resolved 06/16/2025) Jocelyn Barajas is a 20 y.o. female with history of anxiety, ADHD, mild persistent asthma, seasonal allergies, endometriosis, and recurrent tonsillitis with recent admission (06/12-06/13) for left peritonsillar abscess who presents with worsening throat pain and voice changes while on oral antibiotics with planned tonsillectomy today. - IV Clindamycin Q6h ( PCN allergy) - VS Q4h - Tylenol 1000 mg PO Q6h ATC - No Motrin or Toradol for now due to surgery - Oxycodone 5 mg Q4h PRN re: moderate pain - Morphine 4 mg Q4h PRN re: severe pain - NPO - mIVF - Strict I&Os - Consult to ENT - Hold Home Albuterol neb PRN, Qvar BID, Zyrtec daily, Prozac daily, Propranolol BID PRN re: anxiety- Restart post-op -Urine HCG for surgery Associated Problem(s): Tonsillar abscess (Resolved 06/16/2025) Jocelyn Barajas is a 20 y.o. female with history of anxiety, ADHD, mild persistent asthma, seasonal allergies, endometriosis, and recurrent tonsillitis with recent admission (06/12-06/13) for left peritonsillar abscess who presents with worsening throat pain and voice changes while on oral antibiotics with planned tonsillectomy today. - IV Clindamycin Q6h ( PCN allergy) - VS Q4h - Tylenol 1000 mg PO Q6h ATC - No Motrin or Toradol for now due to surgery - Oxycodone 5 mg Q4h PRN re: moderate pain - Morphine 4 mg Q4h PRN re: severe pain - NPO - mIVF - Strict I&Os - Consult to ENT - Hold Home Albuterol neb PRN, Qvar BID, Zyrtec daily, Prozac daily, Propranolol BID PRN re: anxiety- Restart post-op -Urine HCG for surgery 06/15/25 0916 Draw Furnace Tender Visit Type of Visit Initial Time Spent (minutes) 10 Visited With Patient;Mother Reason for Visit Consult Referral From Safe Deposit Box Rental Clerk - Self Draw Furnace Tender Assessment Emotional Distress Low Present Coping Level Average Source of Support Other (comment) (Hoahaoism janice) Draw Furnace Tender Interventions Response Encouraged self-care Provided Listened empathically;Prayer;Draw Furnace Tender education Draw Furnace Tender Outcomes Outcomes Debriefed experience Draw Furnace Tender Plan Draw Furnace Tender Plan Follow as circumstances allow Safe Deposit Box Rental Clerk provided prayer per patient request before surgery. Prayer for healing and comfort. Plan to continue to be available as needed. Julieta Walton MA, [facility] Staff [employer] Dep[employer] Rental Clerk Pager [phone] Problem: Nausea/Vomiting Goal: Post operative nausea and vomiting Outcome: Met This Shift Problem: Gas Exchange - Impaired Goal: Absence of hypoxia Outcome: Met This Shift Problem: Falls, Risk of Goal: Absence of falls Outcome: Met This Shift Goal: Absence of physical injury Outcome: Met This Shift Associated Problem(s): Peritonsillar abscess (Resolved 06/16/2025) Jocelyn Barajas is a 20 y.o. female with history of anxiety, ADHD, mild persistent asthma, seasonal allergies, endometriosis, and recurrent tonsillitis with recent admission (06/12-06/13) for left peritonsillar abscess who presents one day after discharge with worsening throat pain and voice changes while on oral antibiotics with planned tonsillectomy on 06/15. - STAT soft tissue neck CT d/t severe 06/02 pain and soft palate fullness and bulging - IV Clindamycin Q6h ( PCN allergy) - VS Q4h - Tylenol 1000 mg PO Q6h ATC - No Motrin or Toradol for now due to surgery 06/15 - Oxycodone 5 mg Q4h PRN re: moderate pain - Morphine 4 mg Q4h PRN re: severe pain - NPO - mIVF - Strict I&Os - Consult to ENT - Hold Home Albuterol neb PRN, Qvar BID, Zyrtec daily, Prozac daily, Propranolol BID PRN re: anxiety- Restart post-op -Urine HCG for surgery Problem: Nausea/Vomiting Goal: Post operative nausea and vomiting Outcome: Ongoing Problem: Gas Exchange - Impaired Goal: Absence of hypoxia Outcome: Ongoing Problem: Fluid Volume Imbalance, Risk of Goal: Absence of imbalanced fluid volume signs and symptoms Outcome: Ongoing Problem: Falls, Risk of Goal: Absence of falls Outcome: Ongoing Goal: Absence of physical injury Outcome: Ongoing Problem: Infection Risk, Surgical Site Goal: Absence of infection signs and symptoms Outcome: Ongoing Problem: Adverse Surgical Event, Risk of Goal: Absence of injury Outcome: Ongoing Problem: Pain - Acute Goal: Reduced pain sensation Outcome: Ongoing Problem: Transition Readiness Goal: Knowledge of discharge instructions Outcome: Ongoing Goal: Able to safely transition to next level of care Outcome: Ongoing Consult Note NAME: Jocelynjohn Lujannhill DATE OF SERVICE: 06/14/2025 PRIMARY CARE PROVIDER: Mitzy Fung MD ATTENDING PROVIDER: Reji Serna, APR* REASON FOR CONSULTATION: Jocelyn Barajas is being seen today for a consultive service at the request of Reji Serna, APR* for our opinion or medical advice regarding tonsillar abscess. HISTORY OF PRESENT ILLNESS: Jocelyn is a 20 y.o.female who presents with tonsillar abscess and worsening pain. She is scheduled tomorrow for a tonsillectomy due to recurrent tonsillitis. She was recently admitted and discharged after a decadron and antibiotics. This morning she has worsening pain and muffled voice with difficulty breathing-therefore she presented to the ED. PAST MEDICAL HISTORY: Past Medical History: Diagnosis Date ADHD (attention deficit hyperactivity disorder) Anxiety 03/10/2023 Asthma Depression Endometriosis 03/10/2023 Recurrent tonsillitis 03/20/2025 Urinary tract infection PAST SURGICAL HISTORY: Past Surgical History: Procedure Laterality Date ABDOMINAL EXPLORATION SURGERY BLADDER SURGERY DENTAL SURGERY DRUG/FOOD ALLERGIES: Allergies[1] IMMUNIZATIONS: Immunization History Administered Date(s) Administered DTaP 2005, 2005, 2005, 11/26/2006, 05/10/2010 DTaP/Hep B/IPV (PEDIARIX) 2005 HIB 2005, 2005, 2005, 06/08/2006 HPV 9-valent 04/29/2018, 04/16/2020 Hepatitis A (PED/ADOL) 04/29/2018, 04/16/2020 Hepatitis B Ped/Adol 2005, 2005, 2005 INFLUENZA SPLIT 0.5 ML 05/10/2010, 06/07/2010, 04/22/2012 IPV 2005, 2005, 2005, 05/10/2010 Influenza Vaccine 0.5 mL Quadrivalent (PF) 06/30/2017, 04/30/2021 Influenza Vaccine 0.5 mL Trivalent (PF) 09/07/2024 Influenza Vaccine Intranasal Quadrivalent 05/10/2014, 05/14/2015 MENINGOCOCCAL CONJUGATE ACWY VACCINE (MENACTRA) 04/28/2017, 04/26/2021 MMR 06/08/2006 MMRV (PROQUAD) 05/10/2010 PFIZER (purple cap) COVID-19, mRNA, LNP-S, 30mcg/0.3mL dose 04/30/2021, 05/22/2021 Pneumococcal Conjugate 2005, 02/20/2006, 06/08/2006, 11/26/2006 Polio, Unspecified Formulation 2005 Serogroup B Meningococcal Vaccine (BEXSERO) 04/26/2021, 03/10/2023 Tdap 04/28/2017 Varicella 11/26/2006 MEDICATIONS: Current Medications[2] FAMILY HISTORY: Family History Problem Relation Age of Onset High Blood Pressure Father No known problems Mother Allergies Brother seasonal allergies Diabetes Other PGM Diabetes Other Maternal side of family REVIEW OF SYSTEMS Eyes: Within normal limits Ears: Within normal limits Nose: Within normal limits Throat: throat pain Lungs: Within normal limits Heart: Within normal limits Gastrointestinal: Within normal limits Genitourinary: Within normal limits Nervous System: Within normal limits Endocrine: Within normal limits Musculoskeletal: neck pain Heme: Within normal limits OBJECTIVE: Vital Signs Temp: 37.7 C (99.9 F) Temp source: Temporal Heart Rate: 96 Heart Rate Source: Monitor Resp: 17 Resp Source: Monitor SpO2: 99 % BP: 126/71 MAP (mmHg): 86 BP Location: Left upper arm BP Method: Automatic (cuff) Patient Position: Supine Vent Settings/O2 Device Room Air: 21% Physical Findings: On physical examination, this is a well developed well nourished child in no apparent distress. Height is , weight is 58.8 kg, temperature is 37.7 C (99.9 F). Cranium is normocephalic. Eyes show normal extraocular mobility without nystagmus, and the sclerae are clear. The auricles are normal in size, shape, and position bilaterally. The external nose is without deformity by visualization . There is no drainage from the nasopharynx. There is normal mandibular position with no trismus. Oral examination shows pink mucosa without lesions, tonsils that are 2+on the right and 4+ bilaterally with exudate, and a palate that is intact and rises symmetrically. Palpation of the neck reveals tender lymphadenopathy. Vocalizations are muffled without stridor or stertor. She is managing her secretions without difficulty. There are no retractions and no wheezing. Cutaneous exam reveals no jaundice or cyanosis. Labs Results: Recent Labs 06/14/25 1320 RBC 4.59 WBC 13.6* HCT 38.6 HGB 13.2 MCH 28.8 MCHC 34.2* MCV 84.1 MPV 10.8 BASOPCT 0.4 EOSPCT 0.9 MONOPCT 6.7 NEUTOPHILPCT 76.8* NEUTROPHIL 10.49* Recent Labs 06/14/25 1320 CO2 21.1* CL 104 K 3.7 NA 139 Cultures last 72 hrs No results found for the last [address] Soft Tissue Neck with IV contrast Result Date: 06/12/2025 CLINICAL HISTORY: ? abscess. Left tonsillar swelling, history of peritonsillar abscess. TECHNIQUE: CT of the neck was performed with sagittal and coronal reformats with intravenous contrast. The patient was injected with 75 cc of Isovue-300. DOSE LINEAR PRODUCT: 321.70 mGy-cm. COMPARISON: 03/20/2025 FINDINGS: TONSILS/ADENOIDS: There is enlargement of the left palatine tonsil. There is a left peritonsillar abscess which measures 1.5 x 1.5 x 2.2 cm in the AP, transverse and craniocaudal dimensions. On the previous exam the peritonsillar abscess measured 2.2 x 2.0 x 3.5 cm. LYMPH NODES: There are reactive lymph nodes in the left side of the neck. SALIVARY GLANDS: Normal. NECK SPACES: Normal. VASCULATURE: Normal. PARANASAL SINUSES: Normal. ORBITS: Imaged portions appear normal. THYROID GLAND: Normal. LUNG APICES: Normal. CERVICAL SPINE: Normal. BRAIN: Imaged portions appear normal. IMPRESSION: Left peritonsillar abscess. This report has been created using voice recognition software ASSESSMENT: Jocelyn is a 20 year old with recurrent tonsillar abscess with worsening pain. RECOMMENDATIONS: Discussed admitting for pain management with plans for tonsillectomy in the OR tomorrow. Recommendation discussed with ED provider and Dr. Novak. 1630- Patient arrived to floor having left jaw pain and headache. Discussed having her try cold fluids and getting something for pain (no toradol). Mom at bedside and tonsillectomy discussed with patient. Consent obtained and placed in chart. 1700-message received from hospitalist team re: obtaining a stat CT scan due to increase in pain. Ok for CT scan. Plan to proceed with surgery tomorrow. [1] Allergies Allergen Reactions Cefdinir Hives Penicillins Rash [2] Current Facility-Administered Medications Medication Dose Route Frequency Provider Last Rate Last Admin NaCl 0.9% PosiFlush 2 mL 2 mL Intravenous Q8H Reji Serna APRN-CNP NaCl 0.9% PosiFlush 2 mL 2 mL Intravenous PRN Reji Serna APRN-CELINE NaCl 0.9% PosiFlush 5 mL 5 mL Intravenous PRN Reji Serna APRN-CELINE NaCl 0.9 % IV Flush bag 30 mL 30 mL Intravenous PRN Reji Serna APRN-CNP sterile water injection 10 mL 10 mL Intravenous PRN Reji Serna APRN-CNP NaCl 0.9 % 10 mL 10 mL Intravenous PRN Reji Serna APRN-CNP iopamidol (ISOVUE-300) 61 % injection 117.6 mL 2 ml/kg/DOSE Intravenous Once Reji Serna APRN-CNP oxyCODONE (immediate release) (ROXICODONE) tablet 5 mg 5 mg Oral Q6H PRN Reji Serna APRN-CNP Dextrose 5 % NaCl 0.9% KCl 20 mEq/L IV Intravenous Continuous Reji Serna APRN-CNP morphine 2 MG/ML injection 2 mg 2 mg Intravenous Q4H PRN Reji Serna APRN-CNP [START ON 06/15/2025] acetaminophen (TYLENOL) 325 MG tablet 650 mg 650 mg Oral Q6H Reji Serna APRN-CNP clindamycin in D5W (CLEOCIN) IV 588 mg 40 mg/kg/DAY Intravenous Q6H EXACT Reji Serna APRN-CNP documented in this encounter [facility] 06-16-2025 Note Discharge/Transfer S aydin Name: Jocelyn Barajas MR#: [id number] : 2005 Room #: 6203/01 Age/Sex: 20 y.o. female Admit Date: 06/14/2025 Admitting: Reji Serna APRN-SENIOR IT PROJECT MANAGER Discharge Date: 06/16/2025 Discharged from: [facility] Attendin06/16/25 Final Diagnosis: Peritonsillar abscess Significant Findings (Problem List): Active Hospital Problems No active problems to display. Resolved Hospital Problems Diagnosis Date Resolved Peritonsillar abscess 06/16/2025 Tonsillar abscess 06/16/2025 Recurrent tonsillitis 06/16/2025 Reason for Hospitalization: Peritonsillar abscess Discharge Condition: Good Hospital Course (Care, treatment and services provided): Brief Narrative Hospital Course: Jocelyn Barajas is a 20-year-old female with a history of anxiety, ADHD, mild persistent asthma, seasonal allergies, endometriosis, and recurrent tonsillitis/peritonsillar abscess who was admitted on 06/14/2025 for severe left-sided throat pain and voice changes following recent discharge (06/13/2025) for intratonsillar abscess. She presented with worsening pain while on oral clindamycin, with a planned tonsillectomy scheduled for 06/15. On examination, she was in significant distress with 10/10 pain, bulging of the left palate/pharyngeal area, uvular deviation, and tenderness along the left mastoid process and mandible; ENT was consulted and recommended admission until surgery. A stat neck CT with IV contrast was obtained due to concern for progression of her peritonsillar abscess which demonstrated increase in left peritonsillar abscess size. She was managed with IV clindamycin, acetaminophen, and oxycodone for pain control, with morphine administered for severe pain; NSAIDs were avoided due to bleeding risk in the context of planned surgery. She underwent tonsillectomy with ENT on 06/15. OR course uneventful. She was continued on IV clindamycin post surgery and transition to oral for home going (total antibiotic duration to equal 10 days). Discharge Day Exam: General: alert, well appearing, no acute distress Hydration: well-hydrated, mucous membranes moist, good skin turgor Head: normocephalic, atraumatic Eyes: no eyelid swelling, no conjunctival injection or exudate, pupils equal round and reactive to light. Nose: nares patent, normal mucosa Mouth/Throat: mucous membranes moist Neck: nontender, no mass, no focal lymphadenopathy Chest:/Lung: breath sounds clear and equal bilaterally Cardiovascular: regular rate and rhythm, no murmur, no gallop Abdomen: soft, nontender, nondistended, no hepatosplenomegaly, no mass, normal bowel sounds Skin: warm, dry, no rash, no lesions Neuro: alert, normal tone, no focal deficit Immunizations Administered for This Admission No immunizations on file. Significant Imaging Results: CT Soft Tissue Neck with IV contrast Final Result by Saw Medina Results In (06/14 1852) IMPRESSION: The left peritonsillar abscess has increased in size since the last exam. No new abscess is seen. This report has been created using voice recognition software CT OS SOFT TISSUE NECK WITH IV CONTRAST (Results Pending) CT OS SOFT TISSUE NECK WITH IV CONTRAST (Results Pending) Pending Test Results and Tests to Obtain as Outpatient: In-Process Results Date and Time Order Name Sensitivity Status Description Specimen ID Source 06/15/2025 1:19 PM Surgical Pathology Lab Test In process 1 Tonsils Right & Left Preliminary Results No orders found from 05/18/2025 to 06/17/2025. Disposition: She was discharged to home. Discharge Medications: She did not have significant changes to their home medications (see below) Medication List START taking these medications Morning Around Noon Evening Bedtime As Needed * clindamycin 300 MG capsule Take 2 Capsules (600 mg) by mouth every 8 hours for 10 days Commonly known as: CLEOCIN Take 2 Capsules (600 mg) by mouth every 8 hours for 10 days ibuprofen 100 MG/5ML suspension Take 29.4 mL (588 mg) by mouth every 6 hours as needed for Pain Commonly known as: ADVIL; MOTRIN 29.4 mL oxyCODONE 5 MG/5ML solution Take 3 mL (3 mg) by mouth every 6 hours as needed for Pain for up to 10 doses Commonly known as: ROXICODONE 3 mL * This list has 1 medication(s) that are the same as other medications prescribed for you. Read the directions carefully, and ask your doctor or other care provider to review them with you. CONTINUE taking these medications which HAVE NOT changed at this visit Morning Around Noon Evening Bedtime As Needed acetaminophen 500 MG tablet Take 2 Tablets (1,000 mg) by mouth every 6 hours as needed for Pain or Fever Take no more than 5 doses in a 24 hour period Commonly known as: TYLENOL 2 Tablets albuterol (2.5 MG/3ML) 0.083% nebulizer solution Use 3 mL (2.5 mg) by nebulization every 4 hours as needed for Wheezing or Shortness of Breath (C (more content not included)... [facility] 06-16-2025 Hospital course Narrative Images from the original note were not included. Discharge/Transfer Summary Name: Jocelyn Barajas MR#: [id number] : 2005 Room #: 6203/01 Age/Sex: 20 y.o. female Admit Date: 06/14/2025 Admitting: J CARLOS Matthews Discharge Date: 06/16/2025 Discharged from: [facility] Attendin06/16/25 Final Diagnosis: Peritonsillar abscess Significant Findings (Problem List): Active Hospital Problems No active problems to display. Resolved Hospital Problems Diagnosis Date Resolved Peritonsillar abscess 06/16/2025 Tonsillar abscess 06/16/2025 Recurrent tonsillitis 06/16/2025 Reason for Hospitalization: Peritonsillar abscess Discharge Condition: Good Hospital Course (Care, treatment and services provided): Brief Narrative Hospital Course: Jocelyn Barajas is a 20-year-old female with a history of anxiety, ADHD, mild persistent asthma, seasonal allergies, endometriosis, and recurrent tonsillitis/peritonsillar abscess who was admitted on 06/14/2025 for severe left-sided throat pain and voice changes following recent discharge (06/13/2025) for intratonsillar abscess. She presented with worsening pain while on oral clindamycin, with a planned tonsillectomy scheduled for 06/15. On examination, she was in significant distress with 10/ pain, bulging of the left palate/pharyngeal area, uvular deviation, and tenderness along the left mastoid process and mandible; ENT was consulted and recommended admission until surgery. A stat neck CT with IV contrast was obtained due to concern for progression of her peritonsillar abscess which demonstrated increase in left peritonsillar abscess size. She was managed with IV clindamycin, acetaminophen, and oxycodone for pain control, with morphine administered for severe pain; NSAIDs were avoided due to bleeding risk in the context of planned surgery. She underwent tonsillectomy with ENT on 06/15. OR course uneventful. She was continued on IV clindamycin post surgery and transition to oral for home going (total antibiotic duration to equal 10 days). Discharge Day Exam: General: alert, well appearing, no acute distress Hydration: well-hydrated, mucous membranes moist, good skin turgor Head: normocephalic, atraumatic Eyes: no eyelid swelling, no conjunctival injection or exudate, pupils equal round and reactive to light. Nose: nares patent, normal mucosa Mouth/Throat: mucous membranes moist Neck: nontender, no mass, no focal lymphadenopathy Chest:/Lung: breath sounds clear and equal bilaterally Cardiovascular: regular rate and rhythm, no murmur, no gallop Abdomen: soft, nontender, nondistended, no hepatosplenomegaly, no mass, normal bowel sounds Skin: warm, dry, no rash, no lesions Neuro: alert, normal tone, no focal deficit Immunizations Administered for This Admission No immunizations on file. Significant Imaging Results: CT Soft Tissue Neck with IV contrast Final Result by Adam, Rad Results In (06/14 1852) IMPRESSION: The left peritonsillar abscess has increased in size since the last exam. No new abscess is seen. This report has been created using voice recognition software CT OS SOFT TISSUE NECK WITH IV CONTRAST (Results Pending) CT OS SOFT TISSUE NECK WITH IV CONTRAST (Results Pending) Pending Test Results and Tests to Obtain as Outpatient: In-Process Results Date and Time Order Name Sensitivity Status Description Specimen ID Source 06/15/2025 1:19 PM Surgical Pathology Lab Test In process 1 Tonsils Right & Left Preliminary Results No orders found from 05/18/2025 to 06/17/2025. Disposition: She was discharged to home. Discharge Medications: She did not have significant changes to their home medications (see below) Medication List START taking these medications Morning Around Noon Evening Bedtime As Needed * clindamycin 300 MG capsule Take 2 Capsules (600 mg) by mouth every 8 hours for 10 days Commonly known as: CLEOCIN Take 2 Capsules (600 mg) by mouth every 8 hours for 10 days ibuprofen 100 MG/5ML suspension Take 29.4 mL (588 mg) by mouth every 6 hours as needed for Pain Commonly known as: ADVIL; MOTRIN 29.4 mL oxyCODONE 5 MG/5ML solution Take 3 mL (3 mg) by mouth every 6 hours as needed for Pain for up to 10 doses Commonly known as: ROXICODONE 3 mL * This list has 1 medication(s) that are the same as other medications prescribed for you. Read the directions carefully, and ask your doctor or other care provider to review them with you. CONTINUE taking these medications which HAVE NOT changed at this visit Morning Around Noon Evening Bedtime As Needed acetaminophen 500 MG tablet Take 2 Tablets (1,000 mg) by mouth every 6 hours as needed for Pain or Fever Take no more than 5 doses in a 24 hour period Commonly known as: TYLENOL 2 Tablets albuterol (2.5 MG/3ML) 0.083% nebulizer solution Use 3 mL (2.5 mg) by nebulization every 4 hours as needed for Wheezing or Shortness of Breath (Cough) Commonly known as: VENTOLIN 3 mL Beclomethasone Diprop 40 MCG/ACT Aerb Redihaler Inhale 2 Puffs into the lungs 2 times daily Commonly known as: QVAR RediHaler 2 Puffs 2 Puffs cetirizine 10 MG tablet Take 1 Tablet (10 mg) by mouth daily Commonly known as: ZyrTEC 1 Tablet FLUoxetine 10 MG capsule Commonly known as: PROzac See Instructions [facility] Mis DEVICE Use with inhaled medication as instructed. Use with inhaled medication as instructed. propranolol 10 MG tablet Take 1 Tablet (10 mg) by mouth 2 times daily as needed for Other (anxiety) Commonly known as: INDERAL Take 1 Tablet (10 mg) by mouth 2 times daily as needed for Other (anxiety) ASK your doctor about these medications Morning Around Noon Evening Bedtime As Needed * clindamycin 300 MG capsule Take 2 Capsules (600 mg) by mouth every 8 hours for 2 days Starting 11PM on day of discharge. Ask ENT after surgery about need to extend course. Commonly known as: CLEOCIN Ask about: Should I take this medication? * This list has 1 medication(s) that are the same as other medications prescribed for you. Read the directions carefully, and ask your doctor or other care provider to review them with you. Where to Get Your Medications These medications were sent to [facility] [address] [place] [address], [place] - [address], [facility] [id number] clindamycin 300 MG capsule You can get these medications from any pharmacy You don't need a prescription for these medications ibuprofen 100 MG/5ML suspension Information about where to get these medications is not yet available Ask your nurse or doctor about these medications oxyCODONE 5 MG/5ML solution Discharge Instructions: Tonsillectomy/Adenoidectomy (T&A) Postoperative Instructions Pain control: Encourage plenty of cold fluids every hour while awake- the more your child drinks, the better they will feel Pain is often worse at night and in the morning. It's normal for child to have more pain about 4-7 or 8 days after surgery Your child may experience ear pain and/or neck, due to referred pain, nerves from throat are connected to ears. Most often this occurs during last couple days of recovery. Give acetaminophen (Tylenol) and ibuprofen (Motrin or Advil) for pain as instructed by your surgeon. Some surgeons provide narcotic prescription, you should use ONLY if absolutely needed, after using Tylenol and ibuprofen as scheduled. Do not give narcotics routinely Diet: Soft to regular diet as tolerated, for up 2 weeks (Jello, applesauce, noodles, mashed potatoes, eggs, etc.) If child is drinking and urinating at least 3 times per day, you don't need to push them to eat Avoid dairy if possible as this can increase mucus production and cough. Activity: No strenuous activity (including gym and sports) for 14 days following surgery May return to school after 7 days, but 10 days is not unusual No swimming for 2 weeks after surgery Bleeding: Postoperative bleeding is rare, can occur up to 2 weeks after surgery. If you notice blood from the mouth, for older children that are able you can encourage your child to gargle ice water and spit it out. Remain calm, child should sit and relax. Stop eating any foods, observe for few minutes to see if bleeding stops. If water spits out clear, it has stopped. If bleeding continues, take your child to [facility] in [place] to the ER as it's possible that bleeding may recur or increase. Your child may need to return to the operating room for surgeon to control the bleeding, If your child's surgery was performed at [facility], and/or you live in [facility], we ask that you bring your child to [facility] Emergency Room in [place] if able, not [facility] ED or [facility] ED, UNLESS the bleeding is very severe. You can call 911 if you feel it's needed. If you live in [facility], please consider bringing your child to the [facility] ED in [place] if they are stable. Please DO NOT go to [facility] ED, this campus does not provide ability for surgical control for postop bleeding. If bleeding is severe then go to [facility] ED in [place]. If you live more than an hour away from [facility] ED in [place], you can go to the nearest hospital to you. NEVER GO TO URGENT CARE for postop bleeding. This will waste time and they will send you to a hospital ED. Vomiting: Vomiting can occur in the first 24 hours after surgery and may look dark brown in color. If your child is nauseous or vomiting, stop eating or drinking and rest for couple of hours You can give a single dose of over the counter Claritin or Benadryl, which can help reduce nausea and vomiting - dose per weight/age/bottle instructions Fever Very common every day during postop period, as a part of the healing process from surgery This may indicate that your child has not taken in enough fluids. Encourage drinking and monitor, continue to give Tylenol and ibuprofen based on weight/age/bottle instructions Other common signs/symptoms you can expect: Bad breath Increased nasal/throat congestion Change in voice- some children's voice can have a higher pitch after surgery, this may take weeks to return to normal Waking at night- Children can sometimes experience night terrors for a few weeks following anesthesia Alvarado coating on the tongue - this is NOT thrush and does not need treatment It is normal after tonsillectomy, to complain of ear pain, about 4-6 days after surgery. This is referred pain, that is expected, and is not an ear infection. The pain should resolve in 24-48 hours. You can apply a warm compress, heating pad, the neck and ears and that may help. Be sure to give Tylenol and Ibuprofen for these last couple days of recovery to help with the pain. Bring your child to ER IF: Bleeding from the mouth Unable to drink or keep down fluids, recurrent vomiting that doesn't improve after you gave a dose of Claritin, Zyrtec, or Benadryl. No urine output for more than 12-24 hours Please call our office at with questions or concerns. You will receive a call approximately few days after surgery to check on how your child is doing. Thank you for choosing ENT care at [facility]. Instructions/Follow Up Future Labs/Procedures Expected by Expires Follow-up As directed Comments: Follow up with Mitzy Fung MD in 2-3 days at [phone]. If you have concerns about your child's condition, or have questions about your child's care after discharge, and are unable to reach your child's primary care provider, please call the hospital's main phone number at [phone] and ask for the hospitalist regional wildlife agent. Call if any questions or worsening. Discharge Orders Future Labs/Procedures Expected by Expires Activity as tolerated As directed Call physician/healthcare provider for: Decreased drinking, no urination/no wet diaper for 8 hours As directed Call physician/healthcare provider for: Difficulty breathing (breathing faster, working harder to breathe causing ribs to stick out or pulling above the chest, nostrils flaring, grunting, change in color, pauses in breathing) As directed Call physician/healthcare provider for: Temperature >100.4 As directed Regular diet for age As directed I personally spent a total of 40 minutes on the unit in direct management/discussion/coordinatio n of Jocelyn's care. Time was spent in counseling and/or coordination of care including: the review of their EMR, performing a physical exam, educating their family/caregivers, facilitating discharge discussion, reviewing discharge instructions, placing orders, as well as documenting in their EMR. Signed: J CARLOS Williamson 06/16/25 10:23 AM This note or partial portions of this note may have been created using a copy forward or copy paste feature, but these portions have been verified and re-edited for accuracy and any portions not in need of editing or reviews are not being used to generate any component necessary for billing purposes. Elements necessary for proper CPT code selection are based only on elements of the visit that are truly unique to this visit. documented in this encounter [facility] 06-16-2025 Consult note Formatting of th is note might be different from the original. Patient is POD #1 following adenotonsillectomy. She has been doing well postoperatively. Tolerating good PO. Afebrile. VSS. Oropharynx without clots or bleeding. T&A soft diet for 2 weeks. No strenuous activity for 2 weeks. No school/daycare for 1 week. Motrin and Tylenol for pain. Roxicodone for breakthrough pain. Instructions and prescriptions given to family prior to discharge. J CARLOS Emanuel [facility] 06-16-2025 Hospital Discharge instructions Marcela Lowe APRN-CNP - 06/16/2025 9:02 AM EDT Tonsillectomy/Adenoidectomy (T&A) Postoperative Instructions Pain control: Encourage plenty of cold fluids every hour while awake- the more your child drinks, the better they will feel Pain is often worse at night and in the morning. It's normal for child to have more pain about 4-7 or 8 days after surgery Your child may experience ear pain and/or neck, due to referred pain, nerves from throat are connected to ears. Most often this occurs during last couple days of recovery. Give acetaminophen (Tylenol) and ibuprofen (Motrin or Advil) for pain as instructed by your surgeon. Some surgeons provide narcotic prescription, you should use ONLY if absolutely needed, after using Tylenol and ibuprofen as scheduled. Do not give narcotics routinely Diet: Soft to regular diet as tolerated, for up 2 weeks (Jello, applesauce, noodles, mashed potatoes, eggs, etc.) If child is drinking and urinating at least 3 times per day, you don't need to push them to eat Avoid dairy if possible as this can increase mucus production and cough. Activity: No strenuous activity (including gym and sports) for 14 days following surgery May return to school after 7 days, but 10 days is not unusual No swimming for 2 weeks after surgery Bleeding: Postoperative bleeding is rare, can occur up to 2 weeks after surgery. If you notice blood from the mouth, for older children that are able you can encourage your child to gargle ice water and spit it out. Remain calm, child should sit and relax. Stop eating any foods, observe for few minutes to see if bleeding stops. If water spits out clear, it has stopped. If bleeding continues, take your child to [facility] in [place] to the ER as it's possible that bleeding may recur or increase. Your child may need to return to the operating room for surgeon to control the bleeding, If your child's surgery was performed at [facility], and/or you live in [facility], we ask that you bring your child to [facility] Emergency Room in [place] if able, not [facility] ED or [facility] ED, UNLESS the bleeding is very severe. You can call 911 if you feel it's needed. If you live in [facility], please consider bringing your child to the [facility] ED in [place] if they are stable. Please DO NOT go to [facility] ED, this campus does not provide ability for surgical control for postop bleeding. If bleeding is severe then go to [facility] ED in [place]. If you live more than an hour away from [facility] ED in [place], you can go to the nearest hospital to you. NEVER GO TO URGENT CARE for postop bleeding. This will waste time and they will send you to a hospital ED. Vomiting: Vomiting can occur in the first 24 hours after surgery and may look dark brown in color. If your child is nauseous or vomiting, stop eating or drinking and rest for couple of hours You can give a single dose of over the counter Claritin or Benadryl, which can help reduce nausea and vomiting - dose per weight/age/bottle instructions Fever Very common every day during postop period, as a part of the healing process from surgery This may indicate that your child has not taken in enough fluids. Encourage drinking and monitor, continue to give Tylenol and ibuprofen based on weight/age/bottle instructions Other common signs/symptoms you can expect: Bad breath Increased nasal/throat congestion Change in voice- some children's voice can have a higher pitch after surgery, this may take weeks to return to normal Waking at night- Children can sometimes experience night terrors for a few weeks following anesthesia Alvarado coating on the tongue - this is NOT thrush and does not need treatment It is normal after tonsillectomy, to complain of ear pain, about 4-6 days after surgery. This is referred pain, that is expected, and is not an ear infection. The pain should resolve in 24-48 hours. You can apply a warm compress, heating pad, the neck and ears and that may help. Be sure to give Tylenol and Ibuprofen for these last couple days of recovery to help with the pain. Bring your child to ER IF: Bleeding from the mouth Unable to drink or keep down fluids, recurrent vomiting that doesn't improve after you gave a dose of Claritin, Zyrtec, or Benadryl. No urine output for more than 12-24 hours Please call our office at with questions or concerns. You will receive a call approximately few days after surgery to check on how your child is doing. Thank you for choosing ENT care at [facility]. documented in this encounter [facility] 06-16-2025 Plan of care note Problem: Nausea/Vomiting Goal: Post operative nausea and vomiting Outcome: Met This Shift Problem: Gas Exchange - Impaired Goal: Absence of hypoxia Outcome: Met This Shift Problem: Falls, Risk of Goal: Absence of falls Outcome: Met This Shift Goal: Absence of physical injury Outcome: Met This Shift [facility] 06-15-2025 Progress note Formatting of t his note is different from the original. NUTRITION SCREENING: Reviewed H&P, progress notes, nursing nutrition screen, problem list, growth, current nutrition support, nutritionally significant labs and medications. Jocelyn Barajas is a 20 y.o. female Problem List[1] Past Medical History: Diagnosis Date ADHD (attention deficit hyperactivity disorder) Anxiety 03/10/2023 Asthma Depression Endometriosis 03/10/2023 Recurrent tonsillitis 03/20/2025 Urinary tract infection Current Diet: T&A Modified Consistency PO Intake(%): 0% Allergies[2] There is no height or weight on file to calculate BMI. at the No height and weight on file for this encounter. Medications: reviewed Lab Results: glucose within normal limits Recent Labs 06/14/25 1320 NA 139 K 3.7 CL 104 CO2 21.1* BUN 8 GLU 82 CALCIUM 9.6 CREATININE 0.66 Nutrition Concerns: Patient presents with throat pain and was admitted for T&A procedure. PO intake has been poor, 0%. Follow up to monitor PO intake. BMI= 21.57. Plan: Hand Expansion Envelope Maker/Import/Export Clerk to follow-up in three days. Monitor for adequate nutritional intake, tolerance, clinical condition, and weight changes. Demetra Fregoso June 15, 2025 [1] Patient Active Problem List Diagnosis Attention deficit disorder with hyperactivity(314.01) Asthma, mild persistent BMI (body mass index), pediatric, 95-99% for age Seasonal allergies Endometriosis Anxiety Recurrent tonsillitis Peritonsillar abscess Tonsillar abscess [2] Allergies Allergen Reactions Cefdinir Hives Penicillins Rash [facility] 06-15-2025 Consult note Formatting of th is note might be different from the original. Patient is s/p following adenotonsillectomy. She has been doing well postoperatively. Afebrile. VSS. Motrin and Tylenol for pain- consider liquid if not able to swallow pills. Advance T&A soft diet as tolerated. We will reassess in the morning. Recommendations discussed with Primary Team. J CARLOS Emanuel [facility] 06-15-2025 Progress note Formatting of t his note might be different from the original. Social Work Brief Patient's Name: Jocelyn Barajas Date of : 2005 Gender: female Address: [address] [place] [address] (home) Referral Date of Referral: 06/15/2025 Time of Referral: 930 Date of Intervention: 06/15/2025 Time of Intervention: 1325 Referral Site: #[id number] Reason for Referral: [facility] History: Chart reviewed and case was discussed with team in multidisciplinary rounds on unit this morning. Patient is a 20 year old female who is admitted for worsening throat pain and a planned tonsillectomy scheduled for today. Per H&P history of anxiety, ADHD, mild persistent asthma, seasonal allergies, endometriosis, and recurrent tonsillitis/peritonsillar abscess who presents with left sided throat pain following recent admission and discharge yesterday (06/12-06/13) for intratonsillar abscess with planned upcoming tonsillectomy tomorrow. She again presents with worsening left sided throat pain on home oral antibiotics. Jocelyn has an extensive and recurrent history of tonsillitis and peritonsillar abscesses and has been working toward surgical removal which has been postponed multiple times due to recurrent infections. She was recently admitted 06/12-06/13 and at that time presented after 3 days of left sided throat pain, trismus, and muffled voice. She was evaluated by ENT and started on IV Clindamycin (d/t Amoxicillin allergy) with improvement in symptoms and continued plan for OR with ENT on 06/15. ENT recommended discharge due to improvement in pain and symptoms on oral antibiotics until surgery. ENT provider confirmed with anesthesia surgery still to occur on 06/15. She was discharged home yesterday afternoon 06/13 with Q8h oral Clindamycin prescription sent to local pharmacy. She then presented today with worsening left side throat pain which she rated 8/10, took antibiotic and sips of water for meds at home. Concern with worsening throat pain and feeling of difficulty swallowing. In the ED: Due to worsening pain given morphine and Tylenol in the ED along with a 500mL LR bolus and started on maintenance IVF. ENT evaluated and recommended admitted until surgery tomorrow, 06/15. No IV toradol, no Decadron. On the floor: Jocelyn in significant pain 10/10 described as squeezing and crushing and feeling like something is going to pop behind left ear up to her head. Noted to be shaking from pain, sweating, and tearful. She described the pain as the worst pain ever. Evaluated by Dr. Patten who recommended a stat neck CT with contrast. Updated ENT on worsening pain. Old Chart Review: No previous contact with [facility] Social Work. 1330 - Patient is currently off the unit in OR. 1423 - Presented to patient's room. Patient back from OR and parents are at bedside. Introduced myself and explained role. Reviewed reason for consult. Mother states she thought it was explained to her that they could stay at [facility] after patient is discharged. Mom explained that they were concerned because they live in [place] and if Jocelyn had further problems with breathing & bleeding, it would be a long drive back to [facility]. Reviewed that sometimes this can be arranged, but that [facility] staff need to approve this plan. Provided mom with [facility] application and that I would check with medical team about plan. Parents denied they had any other questions or concerns at this time. Communicated with J CARLOS Paula via secure chat. Impression: Patient is a 20 year old female who was admitted for acute tonsillitis with intratonsillar abscess. Parents at bedside. Parents aware of [facility] availability & have been provided with an application that they'll need to complete and submit if they want to reserve a room. Parents would need to discuss with [facility] staff if they could stay there after patient is medically cleared for discharge. Plan: Monitor case during admission to medical unit. Response to Plan: Parents verbalized understanding. ANTHONY Stallworth, [facility] 06/15/2025 [facility] 06-15-2025 Plan of care note Plan of care on going [facility] 06-15-2025 Progress note Formatting of t his note might be different from the original. John Note Patient Name: Jocelyn Barajas Date of : 2005 Date of Visit: Visit: Type of Visit: Initial Time Spent (minutes): 10 Visited With: Patient;Mother;Father Reason for Visit: Consult Referral From: Other (comment) Mom and dad in room, Jocelyn in bed under blanket. Jocelyn reports a great deal of pain when she took head out from under blanket. Gave mom paperwork for Advanced Directives and went over some of it, but mom is going to speak more with Angelia after surgery when she is feeling better. Safe Deposit Box Rental Clerk encouraged mom and Angelia to contact special inspector department with any questions or any further needed assistance. Mom requested prayers. Angelia expressed appreciation for visit and prayers. Assessment: Emotional Distress: Moderate Present Coping Level: Average Level of Support: Strong Response: Appropriate to situation Source of Support: Family Spiritual Distress: Low Interventions: Response: Reviewed information;Encouraged self-care Facilitated: Identification of emotions;Advance directive assistance Identified/evaluated: Coping strategies;Support system Provided: Draw Furnace Tender education;Prayer;Initiated relationship of care/support Draw Furnace Tender Outcomes: Outcomes: Expressed gratitude;Seemed less anxious Plan: Draw Furnace Tender Plan: Follow as circumstances allow [place] Ly [facility] 06-15-2025 Procedure note Name: Jocelyn Barajas Date of : 2005 Unit #: [id number] Date: 06/15/2025 Surgeon: Guy Novak M.D., M.S. Import/Export Clerk: OPERATIVE REPORT PREOPERATIVE DIAGNOSIS: 1. Chronic tonsillitis 2. Tonsillar hypertrophy 3. Acute tonsillitis with intratonsillar abscess POSTOPERATIVE DIAGNOSIS: 1. Chronic tonsillitis 2. Tonsillar hypertrophy 3. Acute tonsillitis with intratonsillar abscess OPERATION: 1. Tonsillectomy, quinsy ANESTHESIA: General endotracheal CLINICAL HISTORY: Jocelyn is a 20 y.o. female with a history of chronic tonsillitis, requiring multiple courses of antibiotics, who has had recurrent/persistent intratonsillar abscess on the left. Consent is provided for the above procedures. DESCRIPTION OF OPERATIVE PROCEDURE: The patient was brought to the operating room and placed in the supine position. After successful endotracheal intubation by the anesthesia staff, the patient was positioned in the typical fashion with a shoulder roll, head doughnut, and eye protection. A head wrap was then placed. A McIvor oral retractor was placed into the oral cavity and used to expose the oropharynx. This was suspended from the Francis stand. Next, the right tonsil was grasped with the curved Allis forceps and the coblation hand piece was advanced into the oral cavity and used to coblate the medial edge of the anterior tonsillar pillar. This was carried down onto the tonsillar capsule in its inferior and lateral positions. Dissection then proceeded in a capsular plane inferiorly, laterally, and then eventually around the superior pole. The specimen was handed off for pathology. Any small bleeders in the tonsillar bed were controlled with the cauterization element of the coblation hand piece. The identical procedure was then repeated on the left side; however, on this side, there is a deep pocket of pus that was released. Suction cautery was used to treat several areas in the abscess cavity/tonsil bed. No further bleeding was noted. The retractor was then removed, and the patient was allowed to awaken from the anesthesia. The patient was extubated in the operating room without difficulty. There were no complications. EBL: 30 cc [facility] Work Phone: 06-15-2025 Evaluation + Plan note Associated Problem(s): Peritonsillar abscess (Resolved 06/16/2025) Jocelyn Barajas is a 20 y.o. female with history of anxiety, ADHD, mild persistent asthma, seasonal allergies, endometriosis, and recurrent tonsillitis with recent admission (06/12-06/13) for left peritonsillar abscess who presents with worsening throat pain and voice changes while on oral antibiotics with planned tonsillectomy today. - IV Clindamycin Q6h ( PCN allergy) - VS Q4h - Tylenol 1000 mg PO Q6h ATC - No Motrin or Toradol for now due to surgery - Oxycodone 5 mg Q4h PRN re: moderate pain - Morphine 4 mg Q4h PRN re: severe pain - NPO - mIVF - Strict I&Os - Consult to ENT - Hold Home Albuterol neb PRN, Qvar BID, Zyrtec daily, Prozac daily, Propranolol BID PRN re: anxiety- Restart post-op -Urine HCG for surgery [facility] 06-15-2025 Evaluation + Plan note Associated Problem(s): Recurrent tonsillitis (Resolved 06/16/2025) Jocelyn Barajas is a 20 y.o. female with history of anxiety, ADHD, mild persistent asthma, seasonal allergies, endometriosis, and recurrent tonsillitis with recent admission (06/12-06/13) for left peritonsillar abscess who presents with worsening throat pain and voice changes while on oral antibiotics with planned tonsillectomy today. - IV Clindamycin Q6h ( PCN allergy) - VS Q4h - Tylenol 1000 mg PO Q6h ATC - No Motrin or Toradol for now due to surgery - Oxycodone 5 mg Q4h PRN re: moderate pain - Morphine 4 mg Q4h PRN re: severe pain - NPO - mIVF - Strict I&Os - Consult to ENT - Hold Home Albuterol neb PRN, Qvar BID, Zyrtec daily, Prozac daily, Propranolol BID PRN re: anxiety- Restart post-op -Urine HCG for surgery [facility] 06-15-2025 Evaluation + Plan note Associated Problem(s): Tonsillar abscess (Resolved 06/16/2025) Jocelyn Barajas is a 20 y.o. female with history of anxiety, ADHD, mild persistent asthma, seasonal allergies, endometriosis, and recurrent tonsillitis with recent admission (06/12-06/13) for left peritonsillar abscess who presents with worsening throat pain and voice changes while on oral antibiotics with planned tonsillectomy today. - IV Clindamycin Q6h ( PCN allergy) - VS Q4h - Tylenol 1000 mg PO Q6h ATC - No Motrin or Toradol for now due to surgery - Oxycodone 5 mg Q4h PRN re: moderate pain - Morphine 4 mg Q4h PRN re: severe pain - NPO - mIVF - Strict I&Os - Consult to ENT - Hold Home Albuterol neb PRN, Qvar BID, Zyrtec daily, Prozac daily, Propranolol BID PRN re: anxiety- Restart post-op -Urine HCG for surgery [facility] 06-15-2025 History of Present illness Narrative [facility]AT[facility]IC [facility] MEDICINE DAILY PROGRESS NOTE Assessment & Plan Peritonsillar abscess Present on Admission: Yes Recurrent tonsillitis Present on Admission: Unknown Tonsillar abscess Present on Admission: Unknown Jocelyn Barajas is a 20 y.o. female with history of anxiety, ADHD, mild persistent asthma, seasonal allergies, endometriosis, and recurrent tonsillitis with recent admission (06/12-06/13) for left peritonsillar abscess who presents with worsening throat pain and voice changes while on oral antibiotics with planned tonsillectomy today. - IV Clindamycin Q6h ( PCN allergy) - VS Q4h - Tylenol 1000 mg PO Q6h ATC - No Motrin or Toradol for now due to surgery - Oxycodone 5 mg Q4h PRN re: moderate pain - Morphine 4 mg Q4h PRN re: severe pain - NPO - mIVF - Strict I&Os - Consult to ENT - Hold Home Albuterol neb PRN, Qvar BID, Zyrtec daily, Prozac daily, Propranolol BID PRN re: anxiety- Restart post-op -Urine HCG for surgery Subjective Interval history: Jocelyn has remained afebrile with stable vitals through the night. Pain ranging from 3-7/10. She has been NPO overnight, maintained on IVF at 100 ml/hr and has had 80 ml UOP plus 2 additional voids. On rounds this morning, she is well appearing, ready for surgery. Mom present at bedside. Reviewed plan of care. SW consulted per mother's request for assistance with Hugh Martínez placement. Objective 24-hour Vital Signs: BP Min: 96/70 Max: 145/95 Temp Av.3 C (99.2 F) Min: 36.9 C (98.4 F) Max: 37.7 C (99.9 F) Pulse Av.2 Min: 60 Max: 97 Resp Av.3 Min: 12 Max: 22 SpO2 Av.3 % Min: 96 % Max: 100 % Weight Av.4 kg Min: 56 kg Max: 58.8 kg Oxygen Therapy: None (Room air) Physical Exam Vitals reviewed. Constitutional: General: She is not in acute distress. HENT: Head: Normocephalic and atraumatic. Nose: Nose normal. Mouth/Throat: Tonsils: Tonsillar abscess present. Eyes: Extraocular Movements: Extraocular movements intact. Conjunctiva/sclera: Conjunctivae normal. Pupils: Pupils are equal, round, and reactive to light. Cardiovascular: Rate and Rhythm: Normal rate and regular rhythm. Pulses: Normal pulses. Heart sounds: Normal heart sounds. Pulmonary: Effort: Pulmonary effort is normal. Breath sounds: Normal breath sounds. Abdominal: General: Abdomen is flat. Bowel sounds are normal. Palpations: Abdomen is soft. Musculoskeletal: General: Normal range of motion. Cervical back: Normal range of motion. Skin: General: Skin is warm and dry. Neurological: General: No focal deficit present. Mental Status: She is alert and oriented to person, place, and time. LDA: Patient Lines/Drains/Airways Status Active LDAs Name Placement date Placement time Site Days Peripheral IV 06/14/25 Right Forearm 06/14/25 1328 -- less than 1 Attestation The note above is mine and reflects independent practice. Plan discussed with caregiver(s) and questions addressed. If time is used to select the level of claim, the only time counted is the time I personally devoted to the care of the patient I spent 25 minutes on the subsequent hospital care for this patient. J CARLOS Paula 06/15/2025 9:40 AM Pediatric Hospital Medicine Attending I reviewed the history and performed a pertinent physical examination on 06/14/2025. I agree with the findings described in the note by Reji Serna APRN, FNP and modified as necessary. Plan discussed with caregiver(s) and questions addressed. Patient with 10/10 pain upon arriving to unit with complaints of severe pressure along left side of neck, preauricular/posterior auricular area, and left mandible. Reports feeling like it's going to pop and crying in pain. Reports morphine only helped in the ED very briefly. No PO intake today aside from small sips of water with medications. Upon exam, noted left palate/pharyngeal area bulging with uvular deviation and very tender to palpation along left mastoid process and trinity-auricular area into left mandible. No stridor or drooling. Obtaining STAT CT neck with IV contrast and discussing change in clinical status with ENT. Given liquid oxycodone while I was assessing at bedside for relief of pain as we are avoiding NSAIDs due to increased bleeding risk should ENT recommend surgical intervention. Consider Dexamethasone for swelling and pain as well. Michelle Patten MD 06/14/2025 documented in this encounter [facility] 06-15-2025 Progress note Formatting of t his note is different from the original. 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 Prayer for healing and comfort. Plan to continue to be available as needed. Julieta Walton MA, [facility] Staff [employer] Rental Clerk Pager [phone] [facility] 06-15-2025 Plan of care note Problem: Nausea/Vomiting Goal: Post operative nausea and vomiting Outcome: Met This Shift Problem: Gas Exchange - Impaired Goal: Absence of hypoxia Outcome: Met This Shift Problem: Falls, Risk of Goal: Absence of falls Outcome: Met This Shift Goal: Absence of physical injury Outcome: Met This Shift [facility] 06-14-2025 Evaluation + Plan note Associated Problem(s): Peritonsillar abscess (Resolved 06/16/2025) Jocelyn Barajas is a 20 y.o. female with history of anxiety, ADHD, mild persistent asthma, seasonal allergies, endometriosis, and recurrent tonsillitis with recent admission (06/12-06/13) for left peritonsillar abscess who presents one day after discharge with worsening throat pain and voice changes while on oral antibiotics with planned tonsillectomy on 06/15. - STAT soft tissue neck CT d/t severe 06/02 pain and soft palate fullness and bulging - IV Clindamycin Q6h ( PCN allergy) - VS Q4h - Tylenol 1000 mg PO Q6h ATC - No Motrin or Toradol for now due to surgery 06/15 - Oxycodone 5 mg Q4h PRN re: moderate pain - Morphine 4 mg Q4h PRN re: severe pain - NPO - mIVF - Strict I&Os - Consult to ENT - Hold Home Albuterol neb PRN, Qvar BID, Zyrtec daily, Prozac daily, Propranolol BID PRN re: anxiety- Restart post-op -Urine HCG for surgery [facility] 06-14-2025 Plan of care note Problem: Nausea/Vomiting Goal: Post operative nausea and vomiting Outcome: Ongoing Problem: Gas Exchange - Impaired Goal: Absence of hypoxia Outcome: Ongoing Problem: Fluid Volume Imbalance, Risk of Goal: Absence of imbalanced fluid volume signs and symptoms Outcome: Ongoing Problem: Falls, Risk of Goal: Absence of falls Outcome: Ongoing Goal: Absence of physical injury Outcome: Ongoing Problem: Infection Risk, Surgical Site Goal: Absence of infection signs and symptoms Outcome: Ongoing Problem: Adverse Surgical Event, Risk of Goal: Absence of injury Outcome: Ongoing Problem: Pain - Acute Goal: Reduced pain sensation Outcome: Ongoing Problem: Transition Readiness Goal: Knowledge of discharge instructions Outcome: Ongoing Goal: Able to safely transition to next level of care Outcome: Ongoing [facility] 06-14-2025 History and physical note PEDIATRIC HOSPITAL MEDICINE HISTORY & PHYSICAL History of Present Illness Jocelyn is a 20 y.o. female with history of anxiety, ADHD, mild persistent asthma, seasonal allergies, endometriosis, and recurrent tonsillitis/peritonsillar abscess who presents with left sided throat pain following recent admission and discharge yesterday (06/12-06/13) for intratonsillar abscess with planned upcoming tonsillectomy tomorrow. She again presents with worsening left sided throat pain on home oral antibiotics. Jocelyn has an extensive and recurrent history of tonsillitis and peritonsillar abscesses and has been working toward surgical removal which has been postponed multiple times due to recurrent infections. She was recently admitted 06/12-06/13 and at that time presented after 3 days of left sided throat pain, trismus, and muffled voice. She was evaluated by ENT and started on IV Clindamycin (d/t Amoxicillin allergy) with improvement in symptoms and continued plan for OR with ENT on 06/15. ENT recommended discharge due to improvement in pain and symptoms on oral antibiotics until surgery. ENT provider confirmed with anesthesia surgery still to occur on 06/15. She was discharged home yesterday afternoon 06/13 with Q8h oral Clindamycin prescription sent to local pharmacy. She then presented today with worsening left side throat pain which she rated 8/10, took antibiotic and sips of water for meds at home. Concern with worsening throat pain and feeling of difficulty swallowing. In the ED: Due to worsening pain given morphine and Tylenol in the ED along with a 500mL LR bolus and started on maintenance IVF. ENT evaluated and recommended admitted until surgery tomorrow, 06/15. No IV toradol, no Decadron. On the floor: Jocelyn in significant pain 06/02 described as squeezing and crushing and feeling like something is going to pop behind left ear up to her head. Noted to be shaking from pain, sweating, and tearful. She described the pain as the worst pain ever. Evaluated by Dr. Patten who recommended a stat neck CT with contrast. Updated ENT on worsening pain. Patient Information Past Medical History: Diagnosis Date ADHD (attention deficit hyperactivity disorder) Anxiety 03/10/2023 Asthma Depression Endometriosis 03/10/2023 Recurrent tonsillitis 03/20/2025 Urinary tract infection Past Surgical History: Procedure Laterality Date ABDOMINAL EXPLORATION SURGERY BLADDER SURGERY DENTAL SURGERY Medications Prior to Admission Medication Sig Dispense Refill Last Dose/Taking clindamycin (CLEOCIN) 300 MG capsule Take 2 Capsules (600 mg) by mouth every 8 hours for 2 days Starting 11PM on day of discharge. Ask ENT after surgery about need to extend course. 12 Capsule 0 06/14/2025 at 8:00 AM FLUoxetine (PROZAC) 10 MG capsule 06/13/2025 propranolol (INDERAL) 10 MG tablet Take 1 Tablet (10 mg) by mouth 2 times daily as needed for Other (anxiety) 06/13/2025 cetirizine (ZYRTEC) 10 MG tablet Take 1 Tablet (10 mg) by mouth daily 30 Tablet 11 06/13/2025 acetaminophen (TYLENOL) 500 MG tablet Take 2 Tablets (1,000 mg) by mouth every 6 hours as needed for Pain or Fever Take no more than 5 doses in a 24 hour period 30 Tablet 1 06/13/2025 Beclomethasone Diprop (QVAR REDIHALER) 40 MCG/ACT AERB Redihaler Inhale 2 Puffs into the lungs 2 times daily 1 Each 11 06/13/2025 Morning albuterol (VENTOLIN) (2.5 MG/3ML) 0.083% nebulizer solution Use 3 mL (2.5 mg) by nebulization every 4 hours as needed for Wheezing or Shortness of Breath (Cough) 100 Each 1 Past Week Spacer/Aero-Holding Chambers ([facility] Use with inhaled medication as instructed. 1 Each 0 Allergies[1] Objective 24-hour Vital Signs: BP Min: 96/70 Max: 145/95 Temp Av.3 C (99.1 F) Min: 36.9 C (98.4 F) Max: 37.7 C (99.9 F) Pulse Av.8 Min: 74 Max: 97 Resp Av.6 Min: 14 Max: 22 SpO2 Av.7 % Min: 97 % Max: 100 % Weight Av.4 kg Min: 56 kg Max: 58.8 kg Oxygen Therapy: None (Room air) General: In significant pain rated 10/10 to left neck and head. Crying, shaking, and sweating. Head: Atraumatic and normocephalic. Neuro: In significant pain, Oriented appropriately for age, no focal deficits. Able to smile, frown, puff cheeks. Eyes: PERRL. Non-icteric sclera and non-injected conjunctivae, no discharge present. Nose: Nares patent with no nasal discharge. Throat: MMM, Left tonsil 4+ with uvula mildly deviated across midline. Left palate/pharyngeal area bulging. Muffled voice. Neck: Supple with full ROM. Anterior chain cervical lymphadenopathy to L. Left side tenderness to palpation to left mastoid process and mandible. Chest: In no respiratory distress. Non-labored breathing in room air. CTAB with good a/e bilaterally. No wheezes, crackles or rhonchi noted. Cardiac: RRR, S1/S2 normal. No murmurs noted. Skin: [place], warm and dry. Well-perfused. No rashes or lesions noted. LDA: Patient Lines/Drains/Airways Status Active LDAs Name Placement date Placement time Site Days Peripheral IV 06/14/25 Right Forearm 06/14/25 1328 -- less than 1 Assessment & Plan Peritonsillar abscess Present on Admission: Unknown Jocelyn Barajas is a 20 y.o. female with history of anxiety, ADHD, mild persistent asthma, seasonal allergies, endometriosis, and recurrent tonsillitis with recent admission (06/12-06/13) for left peritonsillar abscess who presents one day after discharge with worsening throat pain and voice changes while on oral antibiotics with planned tonsillectomy on 06/15. - STAT soft tissue neck CT d/t severe 06/02 pain and soft palate fullness and bulging - IV Clindamycin Q6h ( PCN allergy) - VS Q4h - Tylenol 1000 mg PO Q6h ATC - No Motrin or Toradol for now due to surgery 06/15 - Oxycodone 5 mg Q4h PRN re: moderate pain - Morphine 4 mg Q4h PRN re: severe pain - NPO - mIVF - Strict I&Os - Consult to ENT - Hold Home Albuterol neb PRN, Qvar BID, Zyrtec daily, Prozac daily, Propranolol BID PRN re: anxiety- Restart post-op -Urine HCG for surgery Attestation The note above is mine and reflects independent practice. Plan discussed with caregiver(s) and questions addressed. If time is used to select the level of claim, the only time counted is the time I personally devoted to the care of the patient I spent 75 minutes on the initial hospital care for this patient. J CARLOS Matthews [1] Allergies Allergen Reactions Cefdinir Hives Penicillins Rash [facility] 06-14-2025 History and physical note PEDIATRIC HOSPITAL MEDICINE HISTORY & PHYSICAL History of Present Illness Jocelyn is a 20 y.o. female with history of anxiety, ADHD, mild persistent asthma, seasonal allergies, endometriosis, and recurrent tonsillitis/peritonsillar abscess who presents with left sided throat pain following recent admission and discharge yesterday (06/12-06/13) for intratonsillar abscess with planned upcoming tonsillectomy tomorrow. She again presents with worsening left sided throat pain on home oral antibiotics. Jocelyn has an extensive and recurrent history of tonsillitis and peritonsillar abscesses and has been working toward surgical removal which has been postponed multiple times due to recurrent infections. She was recently admitted 06/12-06/13 and at that time presented after 3 days of left sided throat pain, trismus, and muffled voice. She was evaluated by ENT and started on IV Clindamycin (d/t Amoxicillin allergy) with improvement in symptoms and continued plan for OR with ENT on 06/15. ENT recommended discharge due to improvement in pain and symptoms on oral antibiotics until surgery. ENT provider confirmed with anesthesia surgery still to occur on 06/15. She was discharged home yesterday afternoon 06/13 with Q8h oral Clindamycin prescription sent to local pharmacy. She then presented today with worsening left side throat pain which she rated 8/10, took antibiotic and sips of water for meds at home. Concern with worsening throat pain and feeling of difficulty swallowing. In the ED: Due to worsening pain given morphine and Tylenol in the ED along with a 500mL LR bolus and started on maintenance IVF. ENT evaluated and recommended admitted until surgery tomorrow, 06/15. No IV toradol, no Decadron. On the floor: Jocelyn in significant pain 06/02 described as squeezing and crushing and feeling like something is going to pop behind left ear up to her head. Noted to be shaking from pain, sweating, and tearful. She described the pain as the worst pain ever. Evaluated by Dr. Patten who recommended a stat neck CT with contrast. Updated ENT on worsening pain. Patient Information Past Medical History: Diagnosis Date ADHD (attention deficit hyperactivity disorder) Anxiety 03/10/2023 Asthma Depression Endometriosis 03/10/2023 Recurrent tonsillitis 03/20/2025 Urinary tract infection Past Surgical History: Procedure Laterality Date ABDOMINAL EXPLORATION SURGERY BLADDER SURGERY DENTAL SURGERY Medications Prior to Admission Medication Sig Dispense Refill Last Dose/Taking clindamycin (CLEOCIN) 300 MG capsule Take 2 Capsules (600 mg) by mouth every 8 hours for 2 days Starting 11PM on day of discharge. Ask ENT after surgery about need to extend course. 12 Capsule 0 06/14/2025 at 8:00 AM FLUoxetine (PROZAC) 10 MG capsule 06/13/2025 propranolol (INDERAL) 10 MG tablet Take 1 Tablet (10 mg) by mouth 2 times daily as needed for Other (anxiety) 06/13/2025 cetirizine (ZYRTEC) 10 MG tablet Take 1 Tablet (10 mg) by mouth daily 30 Tablet 11 06/13/2025 acetaminophen (TYLENOL) 500 MG tablet Take 2 Tablets (1,000 mg) by mouth every 6 hours as needed for Pain or Fever Take no more than 5 doses in a 24 hour period 30 Tablet 1 06/13/2025 Beclomethasone Diprop (QVAR REDIHALER) 40 MCG/ACT AERB Redihaler Inhale 2 Puffs into the lungs 2 times daily 1 Each 11 06/13/2025 Morning albuterol (VENTOLIN) (2.5 MG/3ML) 0.083% nebulizer solution Use 3 mL (2.5 mg) by nebulization every 4 hours as needed for Wheezing or Shortness of Breath (Cough) 100 Each 1 Past Week Spacer/Aero-Holding Chambers ([employer]) [facility] [place] DEVICE Use with inhaled medication as instructed. 1 Each 0 Allergies[1] Objective 24-hour Vital Signs: BP Min: 96/70 Max: 145/95 Temp Av.3 C (99.1 F) Min: 36.9 C (98.4 F) Max: 37.7 C (99.9 F) Pulse Av.8 Min: 74 Max: 97 Resp Av.6 Min: 14 Max: 22 SpO2 Av.7 % Min: 97 % Max: 100 % Weight Av.4 kg Min: 56 kg Max: 58.8 kg Oxygen Therapy: None (Room air) General: In significant pain rated 10/10 to left neck and head. Crying, shaking, and sweating. Head: Atraumatic and normocephalic. Neuro: In significant pain, Oriented appropriately for age, no focal deficits. Able to smile, frown, puff cheeks. Eyes: PERRL. Non-icteric sclera and non-injected conjunctivae, no discharge present. Nose: Nares patent with no nasal discharge. Throat: MMM, Left tonsil 4+ with uvula mildly deviated across midline. Left palate/pharyngeal area bulging. Muffled voice. Neck: Supple with full ROM. Anterior chain cervical lymphadenopathy to L. Left side tenderness to palpation to left mastoid process and mandible. Chest: In no respiratory distress. Non-labored breathing in room air. CTAB with good a/e bilaterally. No wheezes, crackles or rhonchi noted. Cardiac: RRR, S1/S2 normal. No murmurs noted. Skin: [place], warm and dry. Well-perfused. No rashes or lesions noted. LDA: Patient Lines/Drains/Airways Status Active LDAs Name Placement date Placement time Site Days Peripheral IV 06/14/25 Right Forearm 06/14/25 1328 -- less than 1 Assessment & Plan Peritonsillar abscess Present on Admission: Unknown Jocelyn Barajas is a 20 y.o. female with history of anxiety, ADHD, mild persistent asthma, seasonal allergies, endometriosis, and recurrent tonsillitis with recent admission (06/12-06/13) for left peritonsillar abscess who presents one day after discharge with worsening throat pain and voice changes while on oral antibiotics with planned tonsillectomy on 06/15. - STAT soft tissue neck CT d/t severe 06/02 pain and soft palate fullness and bulging - IV Clindamycin Q6h ( PCN allergy) - VS Q4h - Tylenol 1000 mg PO Q6h ATC - No Motrin or Toradol for now due to surgery 06/15 - Oxycodone 5 mg Q4h PRN re: moderate pain - Morphine 4 mg Q4h PRN re: severe pain - NPO - mIVF - Strict I&Os - Consult to ENT - Hold Home Albuterol neb PRN, Qvar BID, Zyrtec daily, Prozac daily, Propranolol BID PRN re: anxiety- Restart post-op -Urine HCG for surgery Attestation The note above is mine and reflects independent practice. Plan discussed with caregiver(s) and questions addressed. If time is used to select the level of claim, the only time counted is the time I personally devoted to the care of the patient I spent 75 minutes on the initial hospital care for this patient. J CARLOS Matthews [1] Allergies Allergen Reactions Cefdinir Hives Penicillins Rash documented in this encounter [facility] 06-14-2025 Emergency department Note Report called to [phone]. Pt can go to [phone]. [facility] called. [facility] 06-14-2025 Emergency department Note Report called to [phone]. Pt can go to [phone]. [facility] called. This RN placed patient on continuous cardiac, pulse ox, and BP monitoring. This RN set up suction with Yankauer attachment and place din bed with patient. This RN notified resident. Resident to bedside. Jocelyn Barnett Kathy : 2005 Chief Complaint Patient presents with Abscess Throat Allergies[1] DOS: 06/14/2025 HPI History of Present Illness Angelia is a 20-year-old female that presents with worsening throat pain and feeling of throat swelling. She has a known left-sided peritonsillar abscess, as well as recurrent tonsillitis for which she is scheduled for a tonsillectomy tomorrow morning with ENT. Patient was admitted this week and discharged yesterday with peritonsillar abscess, treated with IV clindamycin transition to p.o. on discharge. Patient was overall doing well yesterday with a manageable amount of throat pain, and able to tolerate p.o. intake, but states this morning she woke up in significant pain and had difficulty breathing. States she felt her throat was more swollen. Denies recurrent fever, chills, chest pain or palpitations. She does have left-sided jaw pain, but denies pain into the ear. She denies wheezing or noisy breathing. Denies inability to tolerate secretions. Review of Systems Review of Systems Constitutional: Negative for fatigue and fever. HENT: Positive for sore throat, trouble swallowing and voice change. Negative for drooling, ear discharge, ear pain and facial swelling. Respiratory: Positive for shortness of breath. Negative for cough, chest tightness, wheezing and stridor. Cardiovascular: Negative for chest pain and palpitations. Gastrointestinal: Negative for abdominal pain, nausea and vomiting. Skin: Negative for pallor and rash. Neurological: Negative for facial asymmetry, weakness, light-headedness, numbness and headaches. All other systems reviewed and are negative. Patient History Past Medical History: Diagnosis Date ADHD (attention deficit hyperactivity disorder) Anxiety 03/10/2023 Asthma Depression Endometriosis 03/10/2023 Recurrent tonsillitis 03/20/2025 Urinary tract infection Past Surgical History: Procedure Laterality Date ABDOMINAL EXPLORATION SURGERY BLADDER SURGERY DENTAL SURGERY Pediatric History Patient Parents/Guardians JOCELYN BARAJAS (Self/Guardian) Flor Jiménez (Mother) Fernando Barajas (Father) Other Topics Concern Interpersonal relationships Not Asked Poor school performance Not Asked Reading difficulties Not Asked Speech difficulties Not Asked Writing difficulties Not Asked Toilet training problems Not Asked Inadequate sleep Not Asked Excessive TV viewing Not Asked Excessive video game use Not Asked Inadequate exercise Not Asked Sports related Not Asked Poor diet Not Asked Second-hand smoke exposure Not Asked Alcohol/drug concerns Not Asked Violence concerns Not Asked Poor oral hygiene Not Asked Bike safety Not Asked Vehicle safety Not Asked Social History Narrative Not on file ED Triage Vitals Date and Time Temp Temp src Pulse Resp BP SpO2 User 06/14/25 1244 36.9 C (98.4 F) Temporal 92 18 131/75 100 % NRB Physical Exam Vitals and nursing note reviewed. Constitutional: Appearance: She is not toxic-appearing. Comments: Tearful in moderate distress HENT: Head: Normocephalic and atraumatic. Jaw: Tenderness (Left side) present. No trismus or swelling. Right Ear: Tympanic membrane normal. Left Ear: Tympanic membrane normal. Mouth/Throat: Mouth: Mucous membranes are moist. No oral lesions. Pharynx: Posterior oropharyngeal erythema and uvula swelling present. Tonsils: Tonsillar exudate and tonsillar abscess (Left) present. Comments: Asymmetric swelling of the pharynx, more prominent on the left consistent with previous diagnoses COW BUYER Uvula slightly deviated to the right Airway is patent Cardiovascular: Rate and Rhythm: Normal rate and regular rhythm. Pulses: Normal pulses. Heart sounds: Normal heart sounds. Pulmonary: Effort: Pulmonary effort is normal. Breath sounds: Normal breath sounds. No stridor. No wheezing. Abdominal: Palpations: Abdomen is soft. Tenderness: There is no abdominal tenderness. Lymphadenopathy: Cervical: Cervical adenopathy present. Skin: General: Skin is warm. Capillary Refill: Capillary refill takes less than 2 seconds. Neurological: General: No focal deficit present. Mental Status: She is alert and oriented to person, place, and time. Physical Exam Procedures Encounter Documentation/Handoff: Diagnosis' considered: Peritonsillar abscess Labs/Radiology: CBC, BMP obtained Consults: Consults Ordered Procedures Draw Furnace Tender Services Screening Inpatient consult to ENT Treatment/Reassessment: Admitting Provider Info: Reji Serna, ALEX-CELINE Hospitalist Medical Decision Making Patient is a 20-year-old female with recurrent tonsillitis, recently diagnosed left-sided peritonsillar abscess and acute tonsillitis that presents with worsening sore throat and difficulty breathing. Patient was discharged from the hospital yesterday after short inpatient stay for IV antibiotics for peritonsillar abscess, scheduled for tonsillectomy with ENT tomorrow. She was treated with clindamycin outpatient. States she woke up this morning and had increased swelling, change in voice, slight difficulty in managing her secretions and worsening throat pain prompting her to come in for reevaluation., On exam, patient is ill-appearing but nontoxic, she has a large peritonsillar abscess on the left side with slight uvular deviation to the right. Pharynx is erythematous, left tonsil with exudate. She does have a muffled voice, but overall is able to tolerate her secretions, no evidence of airway compromise, no wheezing or stridor on exam. We will obtain labs, start an IV and administer a fluid bolus as well as IV antibiotics. We will also consult ENT for reevaluation. Patient was started on IV clindamycin. She was also given IV pain control with morphine which she responded well to. On reevaluation, she was more calm, stated pain was well-controlled, had no evidence of acute respiratory distress or airway compromise and was tolerating her secretions. ENT evaluated the patient, and scheduled patient for inpatient surgery in main OR tomorrow for tonsillectomy. I discussed the patient with the admitting hospitalist who accepted her to short stay for ongoing pain management and IV antibiotic therapy. Problems Addressed: Peritonsillar abscess: complicated acute illness or injury Amount and/or Complexity of Data Reviewed Labs: ordered. Risk Prescription drug management. Decision regarding hospitalization. ED Course as of 06/15/25 1054 ThuJun 14, 2025 1316 ED attending addendum: This is a pleasant 20-year-old female with history of recurrent peritonsillar abscesses presenting with worsening symptoms of peritonsillar abscess. Patient reportedly was admitted for the left peritonsillar abscess and discharged last night to come back for ENT surgery tomorrow. Since patient was discharged to continue to have increasing pain, difficulty breathing, difficulty swallowing her secretion, and has been very uncomfortable. Patient came for further management. No new symptom other than throat pain neck pain neck stiffness changing in voice and drooling. On exam the patient was ill-appearing but nontoxic. Large peritonsillar abscess on the left side with uvular deviation. Tenderness on the external left side of the neck. Muffled voice and trismus. I did clear lungs and heart sounds were RRR no rub murmur or gallop. Patient has clear indication for admission. Will place a line. Will give fluid bolus, IV antibiotic, will discuss with ENT and admit to hospitalist or ENT. [OE] 1508 Reassessment: Patient was evaluated by ENT 3D TECHNOLOGIST. Recommending discharge home. 3D TECHNOLOGIST Okay with us admitting to medicine . Will admit [OE] ED Course User Index [OE] Shikha Rodríguez MD Final diagnoses: [J36] Peritonsillar abscess I have reviewed the nursing notes, history of present illness, past medical, family, and social history, review of systems, and physical exam with the Resident. Based on my own interview and examination I have reviewed and agree with the History of Present Illness, Past Medical History, Family History, and Social History as documented. The Review of Systems is negative, except as documented. The Physical Exam as documented is accurate. Blood pressure 128/90, pulse 60, temperature 37.1 C (98.8 F), resp. rate 20, weight 58.8 kg, last menstrual period 04/24/2025, SpO2 98%. I participated in determining and agree with the management, final impression, and disposition as documented. [1] Allergies Allergen Reactions Cefdinir Hives Penicillins Rash Patient was in admitted for COW BUYER, discharged yesterday, I supposed to have surgery tomorrow, this morning patient woke up difficulty breathing. Significant swelling to tonsillar area. Muffled voice. documented in this encounter [facility] 06-14-2025 Consult note Formatting of th is note is different from the original. Consult Note NAME: Jocelyn Barajas DATE OF SERVICE: 06/14/2025 PRIMARY CARE PROVIDER: Mitzy Fung MD ATTENDING PROVIDER: Reji Serna, APR* REASON FOR CONSULTATION: Jocelyn Barajas is being seen today for a consultive service at the request of Reji Serna, APR* for our opinion or medical advice regarding tonsillar abscess. HISTORY OF PRESENT ILLNESS: Jocelyn is a 20 y.o.female who presents with tonsillar abscess and worsening pain. She is scheduled tomorrow for a tonsillectomy due to recurrent tonsillitis. She was recently admitted and discharged after a decadron and antibiotics. This morning she has worsening pain and muffled voice with difficulty breathing-therefore she presented to the ED. PAST MEDICAL HISTORY: Past Medical History: Diagnosis Date ADHD (attention deficit hyperactivity disorder) Anxiety 03/10/2023 Asthma Depression Endometriosis 03/10/2023 Recurrent tonsillitis 03/20/2025 Urinary tract infection PAST SURGICAL HISTORY: Past Surgical History: Procedure Laterality Date ABDOMINAL EXPLORATION SURGERY BLADDER SURGERY DENTAL SURGERY DRUG/FOOD ALLERGIES: Allergies[1] IMMUNIZATIONS: Immunization History Administered Date(s) Administered DTaP 2005, 2005, 2005, 11/26/2006, 05/10/2010 DTaP/Hep B/IPV (PEDIARIX) 2005 HIB 2005, 2005, 2005, 06/08/2006 HPV 9-valent 04/29/2018, 04/16/2020 Hepatitis A (PED/ADOL) 04/29/2018, 04/16/2020 Hepatitis B Ped/Adol 2005, 2005, 2005 INFLUENZA SPLIT 0.5 ML 05/10/2010, 06/07/2010, 04/22/2012 IPV 2005, 2005, 2005, 05/10/2010 Influenza Vaccine 0.5 mL Quadrivalent (PF) 06/30/2017, 04/30/2021 Influenza Vaccine 0.5 mL Trivalent (PF) 09/07/2024 Influenza Vaccine Intranasal Quadrivalent 05/10/2014, 05/14/2015 MENINGOCOCCAL CONJUGATE ACWY VACCINE (MENACTRA) 04/28/2017, 04/26/2021 MMR 06/08/2006 MMRV (PROQUAD) 05/10/2010 PFIZER (purple cap) COVID-19, mRNA, LNP-S, 30mcg/0.3mL dose 04/30/2021, 05/22/2021 Pneumococcal Conjugate 2005, 02/20/2006, 06/08/2006, 11/26/2006 Polio, Unspecified Formulation 2005 Serogroup B Meningococcal Vaccine (BEXSERO) 04/26/2021, 03/10/2023 Tdap 04/28/2017 Varicella 11/26/2006 MEDICATIONS: Current Medications[2] FAMILY HISTORY: Family History Problem Relation Age of Onset High Blood Pressure Father No known problems Mother Allergies Brother seasonal allergies Diabetes Other PGM Diabetes Other Maternal side of family REVIEW OF SYSTEMS Eyes: Within normal limits Ears: Within normal limits Nose: Within normal limits Throat: throat pain Lungs: Within normal limits Heart: Within normal limits Gastrointestinal: Within normal limits Genitourinary: Within normal limits Nervous System: Within normal limits Endocrine: Within normal limits Musculoskeletal: neck pain Heme: Within normal limits OBJECTIVE: Vital Signs Temp: 37.7 C (99.9 F) Temp source: Temporal Heart Rate: 96 Heart Rate Source: Monitor Resp: 17 Resp Source: Monitor SpO2: 99 % BP: 126/71 MAP (mmHg): 86 BP Location: Left upper arm BP Method: Automatic (cuff) Patient Position: Supine Vent Settings/O2 Device Room Air: 21% Physical Findings: On physical examination, this is a well developed well nourished child in no apparent distress. Height is , weight is 58.8 kg, temperature is 37.7 C (99.9 F). Cranium is normocephalic. Eyes show normal extraocular mobility without nystagmus, and the sclerae are clear. The auricles are normal in size, shape, and position bilaterally. The external nose is without deformity by visualization . There is no drainage from the nasopharynx. There is normal mandibular position with no trismus. Oral examination shows pink mucosa without lesions, tonsils that are 2+on the right and 4+ bilaterally with exudate, and a palate that is intact and rises symmetrically. Palpation of the neck reveals tender lymphadenopathy. Vocalizations are muffled without stridor or stertor. She is managing her secretions without difficulty. There are no retractions and no wheezing. Cutaneous exam reveals no jaundice or cyanosis. Labs Results: Recent Labs 06/14/25 1320 RBC 4.59 WBC 13.6* HCT 38.6 HGB 13.2 MCH 28.8 MCHC 34.2* MCV 84.1 MPV 10.8 BASOPCT 0.4 EOSPCT 0.9 MONOPCT 6.7 NEUTOPHILPCT 76.8* NEUTROPHIL 10.49* Recent Labs 06/14/25 1320 CO2 21.1* CL 104 K 3.7 NA 139 Cultures last 72 hrs No results found for the last [address] Soft Tissue Neck with IV contrast Result Date: 06/12/2025 CLINICAL HISTORY: ? abscess. Left tonsillar swelling, history of peritonsillar abscess. TECHNIQUE: CT of the neck was performed with sagittal and coronal reformats with intravenous contrast. The patient was injected with 75 cc of Isovue-300. DOSE LINEAR PRODUCT: 321.70 mGy-cm. COMPARISON: 03/20/2025 FINDINGS: TONSILS/ADENOIDS: There is enlargement of the left palatine tonsil. There is a left peritonsillar abscess which measures 1.5 x 1.5 x 2.2 cm in the AP, transverse and craniocaudal dimensions. On the previous exam the peritonsillar abscess measured 2.2 x 2.0 x 3.5 cm. LYMPH NODES: There are reactive lymph nodes in the left side of the neck. SALIVARY GLANDS: Normal. NECK SPACES: Normal. VASCULATURE: Normal. PARANASAL SINUSES: Normal. ORBITS: Imaged portions appear normal. THYROID GLAND: Normal. LUNG APICES: Normal. CERVICAL SPINE: Normal. BRAIN: Imaged portions appear normal. IMPRESSION: Left peritonsillar abscess. This report has been created using voice recognition software ASSESSMENT: Jocelyn is a 20 year old with recurrent tonsillar abscess with worsening pain. RECOMMENDATIONS: Discussed admitting for pain management with plans for tonsillectomy in the OR tomorrow. Recommendation discussed with ED provider and Dr. Novak. 1630- Patient arrived to floor having left jaw pain and headache. Discussed having her try cold fluids and getting something for pain (no toradol). Mom at bedside and tonsillectomy discussed with patient. Consent obtained and placed in chart. 1700-message received from hospitalist team re: obtaining a stat CT scan due to increase in pain. Ok for CT scan. Plan to proceed with surgery tomorrow. [1] Allergies Allergen Reactions Cefdinir Hives Penicillins Rash [2] Current Facility-Administered Medications Medication Dose Route Frequency Provider Last Rate Last Admin NaCl 0.9% PosiFlush 2 mL 2 mL Intravenous Q8H Reji Serna APRN-CELINE NaCl 0.9% PosiFlush 2 mL 2 mL Intravenous PRN Reji Serna APRN-CELINE NaCl 0.9% PosiFlush 5 mL 5 mL Intravenous PRN Reji Serna APRN-CELINE NaCl 0.9 % IV Flush bag 30 mL 30 mL Intravenous PRN Reji Serna APRN-CELINE sterile water injection 10 mL 10 mL Intravenous PRN Reji Serna APRN-CELINE NaCl 0.9 % 10 mL 10 mL Intravenous PRN Reji Serna APRN-CELINE iopamidol (ISOVUE-300) 61 % injection 117.6 mL 2 ml/kg/DOSE Intravenous Once Reji Serna APRN-CNP oxyCODONE (immediate release) (ROXICODONE) tablet 5 mg 5 mg Oral Q6H PRN Reji Serna APRN-CELINE Dextrose 5 % NaCl 0.9% KCl 20 mEq/L IV Intravenous Continuous Reji Serna APRN-CNP morphine 2 MG/ML injection 2 mg 2 mg Intravenous Q4H PRN Reji Serna APRN-CELINE [START ON 06/15/2025] acetaminophen (TYLENOL) 325 MG tablet 650 mg 650 mg Oral Q6H Reji Serna APRN-CNP clindamycin in D5W (CLEOCIN) IV 588 mg 40 mg/kg/DAY Intravenous Q6H EXACT Reji Serna APRN-CNP [facility] Work Phone: 06-14-2025 Emergency department Note This RN placed patient on continuous cardiac, pulse ox, and BP monitoring. This RN set up suction with Yankauer attachment and place din bed with patient. This RN notified resident. Resident to bedside. [facility] 06-14-2025 Physician Emergency department Note Jocelyn Lujannhill : 2005 Chief Complaint Patient presents with Abscess Throat Allergies[1] DOS: 06/14/2025 HPI History of Present Illness Angelia is a 20-year-old female that presents with worsening throat pain and feeling of throat swelling. She has a known left-sided peritonsillar abscess, as well as recurrent tonsillitis for which she is scheduled for a tonsillectomy tomorrow morning with ENT. Patient was admitted this week and discharged yesterday with peritonsillar abscess, treated with IV clindamycin transition to p.o. on discharge. Patient was overall doing well yesterday with a manageable amount of throat pain, and able to tolerate p.o. intake, but states this morning she woke up in significant pain and had difficulty breathing. States she felt her throat was more swollen. Denies recurrent fever, chills, chest pain or palpitations. She does have left-sided jaw pain, but denies pain into the ear. She denies wheezing or noisy breathing. Denies inability to tolerate secretions. Review of Systems Review of Systems Constitutional: Negative for fatigue and fever. HENT: Positive for sore throat, trouble swallowing and voice change. Negative for drooling, ear discharge, ear pain and facial swelling. Respiratory: Positive for shortness of breath. Negative for cough, chest tightness, wheezing and stridor. Cardiovascular: Negative for chest pain and palpitations. Gastrointestinal: Negative for abdominal pain, nausea and vomiting. Skin: Negative for pallor and rash. Neurological: Negative for facial asymmetry, weakness, light-headedness, numbness and headaches. All other systems reviewed and are negative. Patient History Past Medical History: Diagnosis Date ADHD (attention deficit hyperactivity disorder) Anxiety 03/10/2023 Asthma Depression Endometriosis 03/10/2023 Recurrent tonsillitis 03/20/2025 Urinary tract infection Past Surgical History: Procedure Laterality Date ABDOMINAL EXPLORATION SURGERY BLADDER SURGERY DENTAL SURGERY Pediatric History Patient Parents/Guardians JOCELYN BARAJAS (Self/Guardian) Flor Jiménez (Mother) Fernando Barajas (Father) Other Topics Concern Interpersonal relationships Not Asked Poor school performance Not Asked Reading difficulties Not Asked Speech difficulties Not Asked Writing difficulties Not Asked Toilet training problems Not Asked Inadequate sleep Not Asked Excessive TV viewing Not Asked Excessive video game use Not Asked Inadequate exercise Not Asked Sports related Not Asked Poor diet Not Asked Second-hand smoke exposure Not Asked Alcohol/drug concerns Not Asked Violence concerns Not Asked Poor oral hygiene Not Asked Bike safety Not Asked Vehicle safety Not Asked Social History Narrative Not on file ED Triage Vitals Date and Time Temp Temp src Pulse Resp BP SpO2 User 06/14/25 1244 36.9 C (98.4 F) Temporal 92 18 131/75 100 % NRB Physical Exam Vitals and nursing note reviewed. Constitutional: Appearance: She is not toxic-appearing. Comments: Tearful in moderate distress HENT: Head: Normocephalic and atraumatic. Jaw: Tenderness (Left side) present. No trismus or swelling. Right Ear: Tympanic membrane normal. Left Ear: Tympanic membrane normal. Mouth/Throat: Mouth: Mucous membranes are moist. No oral lesions. Pharynx: Posterior oropharyngeal erythema and uvula swelling present. Tonsils: Tonsillar exudate and tonsillar abscess (Left) present. Comments: Asymmetric swelling of the pharynx, more prominent on the left consistent with previous diagnoses COW BUYER Uvula slightly deviated to the right Airway is patent Cardiovascular: Rate and Rhythm: Normal rate and regular rhythm. Pulses: Normal pulses. Heart sounds: Normal heart sounds. Pulmonary: Effort: Pulmonary effort is normal. Breath sounds: Normal breath sounds. No stridor. No wheezing. Abdominal: Palpations: Abdomen is soft. Tenderness: There is no abdominal tenderness. Lymphadenopathy: Cervical: Cervical adenopathy present. Skin: General: Skin is warm. Capillary Refill: Capillary refill takes less than 2 seconds. Neurological: General: No focal deficit present. Mental Status: She is alert and oriented to person, place, and time. Physical Exam Procedures Encounter Documentation/Handoff: Diagnosis' considered: Peritonsillar abscess Labs/Radiology: CBC, BMP obtained Consults: Consults Ordered Procedures Draw Furnace Tender Services Screening Inpatient consult to ENT Treatment/Reassessment: Admitting Provider Info: Reji Serna, VAC PRESS OPERATOR-SENIOR IT PROJECT MANAGER Hospitalist Medical Decision Making Patient is a 20-year-old female with recurrent tonsillitis, recently diagnosed left-sided peritonsillar abscess and acute tonsillitis that presents with worsening sore throat and difficulty breathing. Patient was discharged from the hospital yesterday after short inpatient stay for IV antibiotics for peritonsillar abscess, scheduled for tonsillectomy with ENT tomorrow. She was treated with clindamycin outpatient. States she woke up this morning and had increased swelling, change in voice, slight difficulty in managing her secretions and worsening throat pain prompting her to come in for reevaluation., On exam, patient is ill-appearing but nontoxic, she has a large peritonsillar abscess on the left side with slight uvular deviation to the right. Pharynx is erythematous, left tonsil with exudate. She does have a muffled voice, but overall is able to tolerate her secretions, no evidence of airway compromise, no wheezing or stridor on exam. We will obtain labs, start an IV and administer a fluid bolus as well as IV antibiotics. We will also consult ENT for reevaluation. Patient was started on IV clindamycin. She was also given IV pain control with morphine which she responded well to. On reevaluation, she was more calm, stated pain was well-controlled, had no evidence of acute respiratory distress or airway compromise and was tolerating her secretions. ENT evaluated the patient, and scheduled patient for inpatient surgery in main OR tomorrow for tonsillectomy. I discussed the patient with the admitting hospitalist who accepted her to short stay for ongoing pain management and IV antibiotic therapy. Problems Addressed: Peritonsillar abscess: complicated acute illness or injury Amount and/or Complexity of Data Reviewed Labs: ordered. Risk Prescription drug management. Decision regarding hospitalization. ED Course as of 06/15/25 1054 Wed Jun 14, 2025 1316 ED attending addendum: This is a pleasant 20-year-old female with history of recurrent peritonsillar abscesses presenting with worsening symptoms of peritonsillar abscess. Patient reportedly was admitted for the left peritonsillar abscess and discharged last night to come back for ENT surgery tomorrow. Since patient was discharged to continue to have increasing pain, difficulty breathing, difficulty swallowing her secretion, and has been very uncomfortable. Patient came for further management. No new symptom other than throat pain neck pain neck stiffness changing in voice and drooling. On exam the patient was ill-appearing but nontoxic. Large peritonsillar abscess on the left side with uvular deviation. Tenderness on the external left side of the neck. Muffled voice and trismus. I did clear lungs and heart sounds were RRR no rub murmur or gallop. Patient has clear indication for admission. Will place a line. Will give fluid bolus, IV antibiotic, will discuss with ENT and admit to hospitalist or ENT. [OE] 1509 Reassessment: Patient was evaluated by ENT 3D TECHNOLOGIST. Recommending discharge home. 3D TECHNOLOGIST Okay with us admitting to medicine . Will admit [OE] ED Course User Index [OE] Shikha Rodríguez MD Final diagnoses: [J36] Peritonsillar abscess I have reviewed the nursing notes, history of present illness, past medical, family, and social history, review of systems, and physical exam with the Resident. Based on my own interview and examination I have reviewed and agree with the History of Present Illness, Past Medical History, Family History, and Social History as documented. The Review of Systems is negative, except as documented. The Physical Exam as documented is accurate. Blood pressure 128/90, pulse 60, temperature 37.1 C (98.8 F), resp. rate 20, weight 58.8 kg, last menstrual period 04/24/2025, SpO2 98%. I participated in determining and agree with the management, final impression, and disposition as documented. [1] Allergies Allergen Reactions Cefdinir Hives Penicillins Rash [facility] Work Phone: 06-14-2025 Emergency department Triage note Patient was in admitted for COW BUYER, discharged yesterday, I supposed to have surgery tomorrow, this morning patient woke up difficulty breathing. Significant swelling to tonsillar area. Muffled voice. [facility] 06-13-2025 Plan of care note Problem: Infection Risk Goal: Absence of infection signs and symptoms 06/13/20251714 by Joanne Van RN Outcome: Completed 06/13/2025835 by Joanne Van RN Outcome: Ongoing Problem: Body Temperature - Abnormal Goal: Body temperature within specified parameters 06/13/20251714 by Joanne Van RN Outcome: Completed 06/13/2025835 by Joanne Van RN Outcome: Met This Shift Goal: Knowledge of imbalanced body temperature prevention 06/13/20251714 by Joanne Van RN Outcome: Completed 06/13/2025835 by Joanne Van RN Outcome: Met This Shift Problem: Transition Readiness Goal: Knowledge of discharge instructions 06/13/20251714 by Joanne Van RN Outcome: Completed 06/13/2025835 by Joanne Van RN Outcome: Ongoing Goal: Able to safely transition to next level of care 06/13/20251714 by Joanne Van RN Outcome: Completed 06/13/2025835 by Joanne Van RN Outcome: Ongoing Problem: Pain - Acute Goal: Reduced pain sensation 06/13/20251714 by Joanne Van RN Outcome: Completed 06/13/2025835 by Joanne Van RN Outcome: Ongoing [facility] 06-13-2025 Miscellaneous Notes Problem: Infection Risk Goal: Absence of infection signs and symptoms 06/13/20251714 by Joanne Van RN Outcome: Completed 06/13/2025835 by Joanne Van RN Outcome: Ongoing Problem: Body Temperature - Abnormal Goal: Body temperature within specified parameters 06/13/20251714 by Joanne Van RN Outcome: Completed 06/13/2025835 by Joanne Van RN Outcome: Met This Shift Goal: Knowledge of imbalanced body temperature prevention 06/13/20251714 by Joanne Van RN Outcome: Completed 06/13/2025835 by Joanne Van RN Outcome: Met This Shift Problem: Transition Readiness Goal: Knowledge of discharge instructions 06/13/20251714 by Joanne Van RN Outcome: Completed 06/13/2025835 by Joanne Van RN Outcome: Ongoing Goal: Able to safely transition to next level of care 06/13/20251714 by Joanne Van RN Outcome: Completed 06/13/2025835 by Joanne Van RN Outcome: Ongoing Problem: Pain - Acute Goal: Reduced pain sensation 06/13/20251714 by Joanne Van RN Outcome: Completed 06/13/2025835 by Joanne Van RN Outcome: Ongoing Associated Problem(s): Abscess, intratonsillar (Resolved 06/13/2025) Jocelyn Barajas is a 20 y.o. female with history of anxiety, ADHD, mild persistent asthma, seasonal allergies, endometriosis, and recurrent tonsillitis admitted for left intratonsillar abscess requiring IV antibiotics and monitoring pain control and hydration. Plan for OR on 06/15 with determination of oral vs IV antibiotics until surgery to be determined by ENT. - Routine vitals - Notify provider for vitals outside of ordered parameters - Tylenol 1000 mg PO Q6h ATC - Hold off on Motrin for now due to chance of surgery 06/15 - Oxycodone 5 mg Q4h PRN re: moderate pain - Morphine 4 mg Q3h PRN re: severe pain - s/p Decadron x1 in ED - Regular diet - SLIV - Strict I&Os - IV Clindamycin Q8h (PCN allergy) - Consult to ENT- Will determine this afternoon possible d/c on oral Clindamycin vs remaining admitting on IV Clinda until OR on 06/15 - Home Albuterol neb PRN, Qvar BID, Zyrtec daily, Prozac daily, Propranolol BID PRN re: anxiety Multidisciplinary Team Meeting Assessment/Plan of Care Reviewed Are there Case Management needs identified at this time? No case management consult at this time. Unit [facility] will monitor for home care needs (equipment / services) Jocelyn is saline locked, on IV antibiotics Representatives: Case Management: Maura Pinedo RN. Ousmane Mcgill RN Social Work: Sadiq PRAJAPATIW CHCG: Na Null RN, Crys Jiménez RN Child Life: Beatriz Manzano CCLS Nursing: Flor Fung RN clinical coordinator Draw Furnace Tender: Sabine Perez Cable Installer Repairer Helper : Mary Penn Consult Note NAME: Jocelyn Barajas DATE OF SERVICE: 06/13/2025 PRIMARY CARE PROVIDER: Mitzy Fung MD ATTENDING PROVIDER: Reji Serna, APR* REASON FOR CONSULTATION: Jocelyn Barajas is being seen today for a consultive service at the request of Reji Serna, APR* for our opinion or medical advice regarding peritonsillar abscess. HISTORY OF PRESENT ILLNESS: Jocelyn is a 20 y.o.female who presents with a 3 days history of a sore throat. She has previously been admitted several times for tonsillar abscesses and is scheduled to have her tonsils out this with Dr. Novak. She his reporting improvement in her symptoms since admission for IV antibiotics. She reports the abscess is draining and she can taste it. PAST MEDICAL HISTORY: Past Medical History: Diagnosis Date ADHD (attention deficit hyperactivity disorder) Anxiety 03/10/2023 Asthma Depression Endometriosis 03/10/2023 Recurrent tonsillitis 03/20/2025 Urinary tract infection PAST SURGICAL HISTORY: Past Surgical History: Procedure Laterality Date ABDOMINAL EXPLORATION SURGERY BLADDER SURGERY DENTAL SURGERY DRUG/FOOD ALLERGIES: Allergies[1] IMMUNIZATIONS: Immunization History Administered Date(s) Administered DTaP 2005, 2005, 2005, 11/26/2006, 05/10/2010 DTaP/Hep B/IPV (PEDIARIX) 2005 HIB 2005, 2005, 2005, 06/08/2006 HPV 9-valent 04/29/2018, 04/16/2020 Hepatitis A (PED/ADOL) 04/29/2018, 04/16/2020 Hepatitis B Ped/Adol 2005, 2005, 2005 INFLUENZA SPLIT 0.5 ML 05/10/2010, 06/07/2010, 04/22/2012 IPV 2005, 2005, 2005, 05/10/2010 Influenza Vaccine 0.5 mL Quadrivalent (PF) 06/30/2017, 04/30/2021 Influenza Vaccine 0.5 mL Trivalent (PF) 09/07/2024 Influenza Vaccine Intranasal Quadrivalent 05/10/2014, 05/14/2015 MENINGOCOCCAL CONJUGATE ACWY VACCINE (MENACTRA) 04/28/2017, 04/26/2021 MMR 06/08/2006 MMRV (PROQUAD) 05/10/2010 PFIZER (purple cap) COVID-19, mRNA, LNP-S, 30mcg/0.3mL dose 04/30/2021, 05/22/2021 Pneumococcal Conjugate 2005, 02/20/2006, 06/08/2006, 11/26/2006 Polio, Unspecified Formulation 2005 Serogroup B Meningococcal Vaccine (BEXSERO) 04/26/2021, 03/10/2023 Tdap 04/28/2017 Varicella 11/26/2006 MEDICATIONS: Current Medications[2] FAMILY HISTORY: Family History Problem Relation Age of Onset High Blood Pressure Father No known problems Mother Allergies Brother seasonal allergies Diabetes Other PGM Diabetes Other Maternal side of family REVIEW OF SYSTEMS Eyes: Within normal limits Ears: Within normal limits Nose: Within normal limits Throat: Frequent sore throat Lungs: Within normal limits Heart: Within normal limits Gastrointestinal: Within normal limits Genitourinary: Within normal limits Nervous System: Within normal limits Endocrine: Within normal limits Musculoskeletal: Within normal limits Heme: Within normal limits OBJECTIVE: Vital Signs Temp: 36 C (96.8 F) Temp source: Temporal Heart Rate: 62 Heart Rate Source: Apical Resp: 16 Resp Source: Auscultation SpO2: 97 % BP: 97/52 MAP (mmHg): 66 BP Location: Right upper arm BP Method: Automatic (cuff) Patient Position: Supine Vent Settings/O2 Device Room Air: 21% Physical Findings: On physical examination, this is a well developed well nourished child in no apparent distress. Height is , weight is 56 kg, temperature is 36 C (96.8 F). Cranium is normocephalic. Eyes show normal extraocular mobility without nystagmus, and the sclerae are clear. The auricles are normal in size, shape, and position bilaterally. The external nose is without deformity by visualization and palpation. There is normal mandibular position with no trismus. Oral examination shows pink mucosa without lesions, tonsils that are 2+ on the right and 4+ on the left without exudate, and a palate that is intact and rises symmetrically. Palpation of the neck reveals no masses or lymphadenopathy, a midline trachea, and thyroid gland without nodules or enlargement. Carotid pulses are normal. Major salivary glands are without masses or tenderness to palpation. Cranial nerves II-XII are grossly intact. Vocalizations are normal without stridor or stertor. There are no retractions and no wheezing. Cutaneous exam reveals no jaundice or cyanosis. Labs Results: Recent Labs 06/12/25 1351 RBC 4.73 WBC 13.0* HCT 40.5 HGB 13.8 MCH 29.2 MCHC 34.1* MCV 85.6 MPV 10.2 BASOPCT 0.5 EOSPCT 0.6 MONOPCT 6.4 NEUTOPHILPCT 77.0* NEUTROPHIL 10.02* Recent Labs 06/12/25 1351 CO2 22.3 CL 104 K 3.9 NA 141 Cultures last 72 hrs No results found for the last [address] Soft Tissue Neck with IV contrast Result Date: 06/12/2025 CLINICAL HISTORY: ? abscess. Left tonsillar swelling, history of peritonsillar abscess. TECHNIQUE: CT of the neck was performed with sagittal and coronal reformats with intravenous contrast. The patient was injected with 75 cc of Isovue-300. DOSE LINEAR PRODUCT: 321.70 mGy-cm. COMPARISON: 03/20/2025 FINDINGS: TONSILS/ADENOIDS: There is enlargement of the left palatine tonsil. There is a left peritonsillar abscess which measures 1.5 x 1.5 x 2.2 cm in the AP, transverse and craniocaudal dimensions. On the previous exam the peritonsillar abscess measured 2.2 x 2.0 x 3.5 cm. LYMPH NODES: There are reactive lymph nodes in the left side of the neck. SALIVARY GLANDS: Normal. NECK SPACES: Normal. VASCULATURE: Normal. PARANASAL SINUSES: Normal. ORBITS: Imaged portions appear normal. THYROID GLAND: Normal. LUNG APICES: Normal. CERVICAL SPINE: Normal. BRAIN: Imaged portions appear normal. IMPRESSION: Left peritonsillar abscess. This report has been created using voice recognition software ASSESSMENT: Jocelyn Barajas is a 20 year old female with acute tonsillitis and a left tonsil abscess which is spontaneously draining. RECOMMENDATIONS: She is showing improvement with medical management and spontaneous drainage. Okay for discharge today on oral antibiotics. Per Dr. Novak he is okay to proceed with elective tonsillectomy on . I called Yvonne Peralta in [facility] who also approved surgery for after a one time dose of steroid in the ER last night for throat pain. Recommendation discussed with requesting provider. Patient was assessed with Dr. Archuleta. J CARLOS Emanuel 06/13/25 [1] Allergies Allergen Reactions Cefdinir Hives Penicillins Rash [2] Current Facility-Administered Medications Medication Dose Route Frequency Provider Last Rate Last Admin NaCl 0.9% PosiFlush 2 mL 2 mL Intravenous Q8H Dara Lemon APRN-CNP 0 mL/hr at 06/12/25 1858 2 mL at 06/12/25 1858 NaCl 0.9% PosiFlush 2 mL 2 mL Intravenous PRN Dara Lemon APRN-CNP NaCl 0.9% PosiFlush 5 mL 5 mL Intravenous PRN Dara Lemon, VAC PRESS OPERATOR-SENIOR IT PROJECT MANAGER NaCl 0.9 % IV Flush bag 30 mL 30 mL Intravenous PRN Dara Lemon APRN-CNP 100 mL/hr at 06/13/25 0904 30 mL at 06/13/25 0904 sterile water injection 10 mL 10 mL Intravenous PRN Dara Lemon APRN-CNP NaCl 0.9 % 10 mL 10 mL Intravenous PRN Dara Lemon APRN-CNP Dextrose 5 % NaCl 0.9% KCl 20 mEq/L IV Intravenous Continuous Dara Lemon APRN-CNP 96 mL/hr at 06/13/25 0700 Dose/Rate Verification at 06/13/25 0700 oxyCODONE (immediate release) (ROXICODONE) tablet 5 mg 5 mg Oral Q4H PRN Dara Lemon APRN-CNP morphine 10 MG/ML injection 4 mg 4 mg Intravenous Q3H PRN Dara Lemon APRN-CNP Clindamycin in D5W (CLEOCIN) IV 600 mg 600 mg Intravenous Q8H Dara Lemon APRN-CNP 100 mL/hr at 06/13/25 0825 600 mg at 06/13/25 0825 acetaminophen (TYLENOL) tablet 1,000 mg 1,000 mg Oral Q6H Dara Lemon APRN-CNP 1,000 mg at 06/12/25 2019 albuterol (VENTOLIN) 0.083% nebulizer solution 2.5 mg 2.5 mg Nebulization Q4H PRN Dara Lemon APRN-CNP Beclomethasone Diprop (QVAR RediHaler) 40 mcg Redihaler 2 Puff 2 Puff Inhalation BID Dara Lemon APRN-CNP 2 Puff at 06/12/252018 cetirizine (ZyrTEC) tablet 10 mg 10 mg Oral Daily Dara Lemon APRN-CNP 10 mg at 06/12/252018 FLUoxetine (PROzac) capsule 10 mg 10 mg Oral Daily Dara Lemon APRN-CNP propranolol (INDERAL) tablet 10 mg 10 mg Oral BID PRN Dara Lemon VAC PRESS OPERATOR-SENIOR IT PROJECT MANAGER Cosigned by Bernardo Archuleta MD at 06/13/2025 4:01 PM EDT Associated attestation - Bernardo Archuleta MD - 06/13/2025 4:01 PM EDT I saw and examined the patient and agree with the documentation and plan as above NUTRITION SCREENING: Reviewed H&P, progress notes, nursing nutrition screen, problem list, growth, current nutrition support, nutritionally significant labs and medications. Jocelyn Barajas is a 20 y.o. female Problem List[1] Past Medical History: Diagnosis Date ADHD (attention deficit hyperactivity disorder) Anxiety 03/10/2023 Asthma Depression Endometriosis 03/10/2023 Recurrent tonsillitis 03/20/2025 Urinary tract infection Current Diet: NPO PO Intake(%): n/a Allergies[2] There is no height or weight on file to calculate BMI. at the No height and weight on file for this encounter. Medications: prozac Lab Results: glucose within normal limits Recent Labs 06/12/25 1351 NA 141 K 3.9 CL 104 CO2 22.3 BUN 12 GLU 85 CALCIUM 10.0 CREATININE 0.74 Nutrition Concerns: Patient presents with throat pain, decreased PO and urine output for 2 days COW BUYER. Pt is currently NPO. Patient had some PO intake before going NPO. Current BMI is within normal limits, BMI using height from 03/29/25 =20.54. Follow up to monitor for diet advancement. Plan: Hand Expansion Envelope Maker/Import/Export Clerk to follow-up in two days. Request updated weight and height/length measurement. Refer to dietitian for any concerns. Demetra Small States June 13, 2025 [1] Patient Active Problem List Diagnosis Attention deficit disorder with hyperactivity(314.01) Asthma, mild persistent BMI (body mass index), pediatric, 95-99% for age Seasonal allergies Endometriosis Anxiety Peritonsillar abscess Recurrent tonsillitis [2] Allergies Allergen Reactions Cefdinir Hives Penicillins Rash Problem: Infection Risk Goal: Absence of infection signs and symptoms Outcome: Ongoing Problem: Transition Readiness Goal: Knowledge of discharge instructions Outcome: Ongoing Goal: Able to safely transition to next level of care Outcome: Ongoing Problem: Pain - Acute Goal: Reduced pain sensation Outcome: Ongoing Problem: Body Temperature - Abnormal Goal: Body temperature within specified parameters Outcome: Met This Shift Goal: Knowledge of imbalanced body temperature prevention Outcome: Met This Shift Problem: Infection Risk Goal: Absence of infection signs and symptoms Outcome: Ongoing Problem: Transition Readiness Goal: Knowledge of discharge instructions Outcome: Ongoing Goal: Able to safely transition to next level of care Outcome: Ongoing Problem: Pain - Acute Goal: Reduced pain sensation Outcome: Ongoing Problem: Body Temperature - Abnormal Goal: Body temperature within specified parameters Outcome: Met This Shift Goal: Knowledge of imbalanced body temperature prevention Outcome: Met This Shift Associated Problem(s): Abscess, intratonsillar (Resolved 06/13/2025) Jocelyn Barajas is a 20 y.o. female with history of anxiety, ADHD, mild persistent asthma, seasonal allergies, endometriosis, and recurrent tonsillitis admitted for left peritonsillar abscess requiring IV antibiotics and monitoring pain control and hydration. - Routine vitals - Notify provider for vitals outside of ordered parameters - Tylenol 1000 mg PO Q6h ATC - Hold off on Motrin for now due to chance of surgery 06/15 - Oxycodone 5 mg Q4h PRN re: moderate pain - Morphine 4 mg Q3h PRN re: severe pain - s/p Decadron x1 in ED - Regular diet - NPO at midnight for ENT eval in AM - mIVF - Strict I&Os - IV Clindamycin Q8h (PCN allergy) - Consult to ENT - Home Albuterol neb PRN, Qvar BID, Zyrtec daily, Prozac daily, Propranolol BID PRN re: anxiety Problem: Infection Risk Goal: Absence of infection signs and symptoms Outcome: Ongoing Problem: Body Temperature - Abnormal Goal: Body temperature within specified parameters Outcome: Ongoing Goal: Knowledge of imbalanced body temperature prevention Outcome: Ongoing Problem: Transition Readiness Goal: Knowledge of discharge instructions Outcome: Ongoing Goal: Able to safely transition to next level of care Outcome: Ongoing Problem: Pain - Acute Goal: Reduced pain sensation Outcome: Ongoing documented in this encounter [facility] 06-13-2025 Evaluation + Plan note Associated Problem(s): Abscess, intratonsillar (Resolved 06/13/2025) Jocelyn Barajas is a 20 y.o. female with history of anxiety, ADHD, mild persistent asthma, seasonal allergies, endometriosis, and recurrent tonsillitis admitted for left intratonsillar abscess requiring IV antibiotics and monitoring pain control and hydration. Plan for OR on 06/15 with determination of oral vs IV antibiotics until surgery to be determined by ENT. - Routine vitals - Notify provider for vitals outside of ordered parameters - Tylenol 1000 mg PO Q6h ATC - Hold off on Motrin for now due to chance of surgery 06/15 - Oxycodone 5 mg Q4h PRN re: moderate pain - Morphine 4 mg Q3h PRN re: severe pain - s/p Decadron x1 in ED - Regular diet - SLIV - Strict I&Os - IV Clindamycin Q8h (PCN allergy) - Consult to ENT- Will determine this afternoon possible d/c on oral Clindamycin vs remaining admitting on IV Clinda until OR on 06/15 - Home Albuterol neb PRN, Qvar BID, Zyrtec daily, Prozac daily, Propranolol BID PRN re: anxiety [facility] 06-13-2025 Progress note Formatting of t his note might be different from the original. Multidisciplinary Team Meeting Assessment/Plan of Care Reviewed Are there Case Management needs identified at this time? No case management consult at this time. Unit [facility] will monitor for home care needs (equipment / services) Jocelyn velez saline locked, on IV antibiotics Representatives: Case Management: Maura Pinedo RN. Ousmane Mcgill RN Social Work: Sadiq SEXTON CHCG: Na Null RN, Crys Jiménez RN Child Life: Beatriz Manzano CCLS Nursing: Flor Fung RN clinical coordinator Draw Furnace Tender: Sabine Perez Cable Installer Repairer Helper : Mary Penn [facility] 06-13-2025 History of Present illness Narrative [facility] DAILY PROGRESS NOTE Assessment & Plan Abscess, intratonsillar Present on Admission: Yes Jocelyn Barajas is a 20 y.o. female with history of anxiety, ADHD, mild persistent asthma, seasonal allergies, endometriosis, and recurrent tonsillitis admitted for left intratonsillar abscess requiring IV antibiotics and monitoring pain control and hydration. Plan for OR on 06/15 with determination of oral vs IV antibiotics until surgery to be determined by ENT. - Routine vitals - Notify provider for vitals outside of ordered parameters - Tylenol 1000 mg PO Q6h ATC - Hold off on Motrin for now due to chance of surgery 06/15 - Oxycodone 5 mg Q4h PRN re: moderate pain - Morphine 4 mg Q3h PRN re: severe pain - s/p Decadron x1 in ED - Regular diet - SLIV - Strict I&Os - IV Clindamycin Q8h (PCN allergy) - Consult to ENT- Will determine this afternoon possible d/c on oral Clindamycin vs remaining admitting on IV Clinda until OR on 06/15 - Home Albuterol neb PRN, Qvar BID, Zyrtec daily, Prozac daily, Propranolol BID PRN re: anxiety Subjective Interval history: Angelia is doing well and pain is controlled. Having intermittent drainage of intratonsillar abscess. Mother shared hope that Angelia would remain admitted until surgery but is agreeable to discharge pending ENT decision. Angelia shared anxiety around swelling of tonsils. Used albuterol nebulizer prior to admission but reports it as due to feeling chest tightness and she felt was more anxiety based than an asthma attack/illness. Angelia verbalized desire to have tonsils removed. Discussed having Child Life come to the bedside to prepare for OR but Angelia feels anxiety is controlled with medications and if both mother and father are present prior to surgery. Education provided to Angelia on pain control post-operatively and expectations for recovery with full discussions to come from ENT prior to OR. Objective 24-hour Vital Signs: BP Min: 90/55 Max: 121/69 Temp Av.4 C (97.6 F) Min: 36 C (96.8 F) Max: 37 C (98.6 F) Pulse Av.3 Min: 60 Max: 112 Resp Av.4 Min: 16 Max: 22 SpO2 Av.6 % Min: 97 % Max: 100 % Weight Av.7 kg Min: 55.5 kg Max: 56 kg Oxygen Therapy: None (Room air) General: Appears well-developed and well-nourished, in no acute distress. Head: Atraumatic and normocephalic. Neuro: Active and alert. Oriented appropriately for age, no focal deficits Eyes: PERRL. Non-icteric sclera and non-injected conjunctivae, no discharge present. Throat: MMM, with no exudates, mild erythema to posterior pharynx. Left tonsil 3+, R 2+ Neck: Supple with full ROM. No cervical lymphadenopathy. Chest: In no respiratory distress. Non-labored breathing in room air. CTAB with good a/e bilaterally. No wheezes, crackles or rhonchi noted. Cardiac: RRR, S1/S2 normal. No murmurs noted. Cap refill < 2 seconds with strong and symmetric peripheral pulses. Abdomen: Soft, non-tender, non-distended. Bowel sounds present Musculoskeletal: Good strength and tone in all extremities. Skin: [place], warm and dry. Well-perfused. No rashes or lesions noted. LDA: Patient Lines/Drains/Airways Status Active LDAs Name Placement date Placement time Site Days Peripheral IV 06/12/25 22 Left Wrist 06/12/25 1354 -- less than 1 Attestation The note above is mine and reflects independent practice. Plan discussed with caregiver(s) and questions addressed. If time is used to select the level of claim, the only time counted is the time I personally devoted to the care of the patient I spent 35 minutes on the subsequent hospital care for this patient. J CARLOS Matthews documented in this encounter [facility] 06-13-2025 Consult note Formatting of th is note is different from the original. Consult Note NAME: Jocelyn Barajas DATE OF SERVICE: 06/13/2025 PRIMARY CARE PROVIDER: Mitzy Fung MD ATTENDING PROVIDER: Reji Serna, APR* REASON FOR CONSULTATION: Jocelyn Barajas is being seen today for a consultive service at the request of eRji Serna, ARIEL* for our opinion or medical advice regarding peritonsillar abscess. HISTORY OF PRESENT ILLNESS: Jocelyn is a 20 y.o.female who presents with a 3 days history of a sore throat. She has previously been admitted several times for tonsillar abscesses and is scheduled to have her tonsils out this with Dr. Novak. She his reporting improvement in her symptoms since admission for IV antibiotics. She reports the abscess is draining and she can taste it. PAST MEDICAL HISTORY: Past Medical History: Diagnosis Date ADHD (attention deficit hyperactivity disorder) Anxiety 03/10/2023 Asthma Depression Endometriosis 03/10/2023 Recurrent tonsillitis 03/20/2025 Urinary tract infection PAST SURGICAL HISTORY: Past Surgical History: Procedure Laterality Date ABDOMINAL EXPLORATION SURGERY BLADDER SURGERY DENTAL SURGERY DRUG/FOOD ALLERGIES: Allergies[1] IMMUNIZATIONS: Immunization History Administered Date(s) Administered DTaP 2005, 2005, 2005, 11/26/2006, 05/10/2010 DTaP/Hep B/IPV (PEDIARIX) 2005 HIB 2005, 2005, 2005, 06/08/2006 HPV 9-valent 04/29/2018, 04/16/2020 Hepatitis A (PED/ADOL) 04/29/2018, 04/16/2020 Hepatitis B Ped/Adol 2005, 2005, 2005 INFLUENZA SPLIT 0.5 ML 05/10/2010, 06/07/2010, 04/22/2012 IPV 2005, 2005, 2005, 05/10/2010 Influenza Vaccine 0.5 mL Quadrivalent (PF) 06/30/2017, 04/30/2021 Influenza Vaccine 0.5 mL Trivalent (PF) 09/07/2024 Influenza Vaccine Intranasal Quadrivalent 05/10/2014, 05/14/2015 MENINGOCOCCAL CONJUGATE ACWY VACCINE (MENACTRA) 04/28/2017, 04/26/2021 MMR 06/08/2006 MMRV (PROQUAD) 05/10/2010 PFIZER (purple cap) COVID-19, mRNA, LNP-S, 30mcg/0.3mL dose 04/30/2021, 05/22/2021 Pneumococcal Conjugate 2005, 02/20/2006, 06/08/2006, 11/26/2006 Polio, Unspecified Formulation 2005 Serogroup B Meningococcal Vaccine (BEXSERO) 04/26/2021, 03/10/2023 Tdap 04/28/2017 Varicella 11/26/2006 MEDICATIONS: Current Medications[2] FAMILY HISTORY: Family History Problem Relation Age of Onset High Blood Pressure Father No known problems Mother Allergies Brother seasonal allergies Diabetes Other PGM Diabetes Other Maternal side of family REVIEW OF SYSTEMS Eyes: Within normal limits Ears: Within normal limits Nose: Within normal limits Throat: Frequent sore throat Lungs: Within normal limits Heart: Within normal limits Gastrointestinal: Within normal limits Genitourinary: Within normal limits Nervous System: Within normal limits Endocrine: Within normal limits Musculoskeletal: Within normal limits Heme: Within normal limits OBJECTIVE: Vital Signs Temp: 36 C (96.8 F) Temp source: Temporal Heart Rate: 62 Heart Rate Source: Apical Resp: 16 Resp Source: Auscultation SpO2: 97 % BP: 97/52 MAP (mmHg): 66 BP Location: Right upper arm BP Method: Automatic (cuff) Patient Position: Supine Vent Settings/O2 Device Room Air: 21% Physical Findings: On physical examination, this is a well developed well nourished child in no apparent distress. Height is , weight is 56 kg, temperature is 36 C (96.8 F). Cranium is normocephalic. Eyes show normal extraocular mobility without nystagmus, and the sclerae are clear. The auricles are normal in size, shape, and position bilaterally. The external nose is without deformity by visualization and palpation. There is normal mandibular position with no trismus. Oral examination shows pink mucosa without lesions, tonsils that are 2+ on the right and 4+ on the left without exudate, and a palate that is intact and rises symmetrically. Palpation of the neck reveals no masses or lymphadenopathy, a midline trachea, and thyroid gland without nodules or enlargement. Carotid pulses are normal. Major salivary glands are without masses or tenderness to palpation. Cranial nerves II-XII are grossly intact. Vocalizations are normal without stridor or stertor. There are no retractions and no wheezing. Cutaneous exam reveals no jaundice or cyanosis. Labs Results: Recent Labs 06/12/25 1351 RBC 4.73 WBC 13.0* HCT 40.5 HGB 13.8 MCH 29.2 MCHC 34.1* MCV 85.6 MPV 10.2 BASOPCT 0.5 EOSPCT 0.6 MONOPCT 6.4 NEUTOPHILPCT 77.0* NEUTROPHIL 10.02* Recent Labs 06/12/25 1351 CO2 22.3 CL 104 K 3.9 NA 141 Cultures last 72 hrs No results found for the last [address] Soft Tissue Neck with IV contrast Result Date: 06/12/2025 CLINICAL HISTORY: ? abscess. Left tonsillar swelling, history of peritonsillar abscess. TECHNIQUE: CT of the neck was performed with sagittal and coronal reformats with intravenous contrast. The patient was injected with 75 cc of Isovue-300. DOSE LINEAR PRODUCT: 321.70 mGy-cm. COMPARISON: 03/20/2025 FINDINGS: TONSILS/ADENOIDS: There is enlargement of the left palatine tonsil. There is a left peritonsillar abscess which measures 1.5 x 1.5 x 2.2 cm in the AP, transverse and craniocaudal dimensions. On the previous exam the peritonsillar abscess measured 2.2 x 2.0 x 3.5 cm. LYMPH NODES: There are reactive lymph nodes in the left side of the neck. SALIVARY GLANDS: Normal. NECK SPACES: Normal. VASCULATURE: Normal. PARANASAL SINUSES: Normal. ORBITS: Imaged portions appear normal. THYROID GLAND: Normal. LUNG APICES: Normal. CERVICAL SPINE: Normal. BRAIN: Imaged portions appear normal. IMPRESSION: Left peritonsillar abscess. This report has been created using voice recognition software ASSESSMENT: Jocelyn Barajas is a 20 year old female with acute tonsillitis and a left tonsil abscess which is spontaneously draining. RECOMMENDATIONS: She is showing improvement with medical management and spontaneous drainage. Okay for discharge today on oral antibiotics. Per Dr. Novak he is okay to proceed with elective tonsillectomy on . I called Yvonne Peralta in [facility] who also approved surgery for after a one time dose of steroid in the ER last night for throat pain. Recommendation discussed with requesting provider. Patient was assessed with Dr. Archuleta. Marcela Lowe VAC PRESS OPERATOR-SENIOR IT PROJECT MANAGER 06/13/25 [1] Allergies Allergen Reactions Cefdinir Hives Penicillins Rash [2] Current Facility-Administered Medications Medication Dose Route Frequency Provider Last Rate Last Admin NaCl 0.9% PosiFlush 2 mL 2 mL Intravenous Q8H Dara Lemon VAC PRESS OPERATOR-SENIOR IT PROJECT MANAGER 0 mL/hr at 06/12/25 1858 2 mL at 06/12/25 1858 NaCl 0.9% PosiFlush 2 mL 2 mL Intravenous PRN HauensDara garcia VAC PRESS OPERATOR-SENIOR IT PROJECT MANAGER NaCl 0.9% PosiFlush 5 mL 5 mL Intravenous PRN HauensteinDara VAC PRESS OPERATOR-SENIOR IT PROJECT MANAGER NaCl 0.9 % IV Flush bag 30 mL 30 mL Intravenous PRN RichmonduensDara garcia VAC PRESS OPERATOR-SENIOR IT PROJECT MANAGER 100 mL/hr at 06/13/25 0904 30 mL at 06/13/25 0904 sterile water injection 10 mL 10 mL Intravenous PRN Dara Lemon VAC PRESS OPERATOR-SENIOR IT PROJECT MANAGER NaCl 0.9 % 10 mL 10 mL Intravenous PRN Hauenstein, Dara L, VAC PRESS OPERATOR-SENIOR IT PROJECT MANAGER Dextrose 5 % NaCl 0.9% KCl 20 mEq/L IV Intravenous Continuous Dara Lemon APRN-CNP 96 mL/hr at 06/13/25 0700 Dose/Rate Verification at 06/13/25 0700 oxyCODONE (immediate release) (ROXICODONE) tablet 5 mg 5 mg Oral Q4H PRN Dara Lemon APRN-CNP morphine 10 MG/ML injection 4 mg 4 mg Intravenous Q3H PRN Dara Lemon APRN-CNP Clindamycin in D5W (CLEOCIN) IV 600 mg 600 mg Intravenous Q8H Dara Lemon APRN-CNP 100 mL/hr at 06/13/25 0825 600 mg at 06/13/25 0825 acetaminophen (TYLENOL) tablet 1,000 mg 1,000 mg Oral Q6H Dara Lemon APRN-CNP 1,000 mg at 06/12/25 2019 albuterol (VENTOLIN) 0.083% nebulizer solution 2.5 mg 2.5 mg Nebulization Q4H PRN Dara Lemon APRN-CNP Beclomethasone Diprop (QVAR RediHaler) 40 mcg Redihaler 2 Puff 2 Puff Inhalation BID Dara Lemon APRN-CNP 2 Puff at 06/12/252018 cetirizine (ZyrTEC) tablet 10 mg 10 mg Oral Daily Dara Lemon APRN-CNP 10 mg at 06/12/25 2019 FLUoxetine (PROzac) capsule 10 mg 10 mg Oral Daily Dara Lemon APRN-CNP propranolol (INDERAL) tablet 10 mg 10 mg Oral BID PRN Dara Lemon APRN-CNP Cosigned by Bernardo Archuleta MD at 06/13/2025 4:01 PM EDT Associated attestation - Bernardo Archuleta MD - 06/13/2025 4:01 PM EDT I saw and examined the patient and agree with the documentation and plan as above [facility] Work Phone: 06-13-2025 Progress note Formatting of t his note is different from the original. NUTRITION SCREENING: Reviewed H&P, progress notes, nursing nutrition screen, problem list, growth, current nutrition support, nutritionally significant labs and medications. Jocelyn Barajas is a 20 y.o. female Problem List[1] Past Medical History: Diagnosis Date ADHD (attention deficit hyperactivity disorder) Anxiety 03/10/2023 Asthma Depression Endometriosis 03/10/2023 Recurrent tonsillitis 03/20/2025 Urinary tract infection Current Diet: NPO PO Intake(%): n/a Allergies[2] There is no height or weight on file to calculate BMI. at the No height and weight on file for this encounter. Medications: prozac Lab Results: glucose within normal limits Recent Labs 06/12/25 1351 NA 141 K 3.9 CL 104 CO2 22.3 BUN 12 GLU 85 CALCIUM 10.0 CREATININE 0.74 Nutrition Concerns: Patient presents with throat pain, decreased PO and urine output for 2 days COW BUYER. Pt is currently NPO. Patient had some PO intake before going NPO. Current BMI is within normal limits, BMI using height from 03/29/25 =20.54. Follow up to monitor for diet advancement. Plan: Hand Expansion Envelope Maker/Import/Export Clerk to follow-up in two days. Request updated weight and height/length measurement. Refer to dietitian for any concerns. Demetra Fregoso June 13, 2025 [1] Patient Active Problem List Diagnosis Attention deficit disorder with hyperactivity(314.01) Asthma, mild persistent BMI (body mass index), pediatric, 95-99% for age Seasonal allergies Endometriosis Anxiety Peritonsillar abscess Recurrent tonsillitis [2] Allergies Allergen Reactions Cefdinir Hives Penicillins Rash [facility] 06-13-2025 Plan of care note Problem: Infection Risk Goal: Absence of infection signs and symptoms Outcome: Ongoing Problem: Transition Readiness Goal: Knowledge of discharge instructions Outcome: Ongoing Goal: Able to safely transition to next level of care Outcome: Ongoing Problem: Pain - Acute Goal: Reduced pain sensation Outcome: Ongoing Problem: Body Temperature - Abnormal Goal: Body temperature within specified parameters Outcome: Met This Shift Goal: Knowledge of imbalanced body temperature prevention Outcome: Met This Shift [facility] 06-13-2025 Plan of care note Problem: Infection Risk Goal: Absence of infection signs and symptoms Outcome: Ongoing Problem: Transition Readiness Goal: Knowledge of discharge instructions Outcome: Ongoing Goal: Able to safely transition to next level of care Outcome: Ongoing Problem: Pain - Acute Goal: Reduced pain sensation Outcome: Ongoing Problem: Body Temperature - Abnormal Goal: Body temperature within specified parameters Outcome: Met This Shift Goal: Knowledge of imbalanced body temperature prevention Outcome: Met This Shift [facility] 06-12-2025 Note Discharge/Transfer S sadiq Name: Jocelyn Barajas MR#: [id number] : 2005 Room #: 6214/01 Age/Sex: 20 y.o. female Admit Date: 06/12/2025 Admitting: J CARLOS Rivera Discharge Date: 06/13/2025 Discharged from: [facility] Attending: J CARLOS Matthews Final Diagnosis: Abscess, intratonsillar Significant Findings (Problem List): Active Hospital Problems No active problems to display. Resolved Hospital Problems Diagnosis Date Resolved Abscess, intratonsillar 06/13/2025 Reason for Hospitalization: Peritonsillar abscess Discharge Condition: Good Hospital Course (Care, treatment and services provided): Brief Narrative Hospital Course: Jocelyn is a 20 y.o. female with history of anxiety, ADHD, mild persistent asthma, seasonal allergies, endometriosis, and recurrent tonsillitis/peritonsillar abscess who presents with left sided throat pain secondary to L COW BUYER. Jocelyn started to have a throat tickle 3 days ago. 2 days ago, she had worsening left sided throat pain. She agreed her voice was more muffled she also had associated trismus and respiratory distress which improved with PRN Albuterol nebs. She had decreased PO intake and UOP. The left sided throat pain worsened, so ENT office was called and she was advised to be seen in the ED. In the ED, she was afebrile on arrival, HR 112, otherwise stable vitals. Mucous membranes were dry, left sided tonsillar swelling and uvular deviation present on exam. She was given a dose of Morphine 4 mg (1351) for pain 01/31. CT soft tissue neck with contrast was obtained and showed a left peritonsillar abscess measuring 1.5 x 1.5 x 2.2 cm. She was given a dose of Decadron 8 mg (1412), ~18 ml/kg NS bolus (1432) and a dose of Clindamycin (due to PCN allergy, at 1506) after speaking with ENT. Labs obtained including CBCd (WBC 13.0, 77& neutrophils, 15% lymphs); BMP (WNL), CRP (2.4) and urine HCG negative. She tolerated a few ice chips in the ED, but otherwise has not eaten anything. She has voided twice today. No respiratory distress noted in ED. Admitted to the acute care floor for IV antibiotics and re-evaluation with ENT. On the floor, Tylenol was scheduled for pain. PRN Oxycodone and Morphine available. mIVF started. Home medications continued. Clindamycin continued. ENT consulted who recommended treating at home with PO clindamycin and will keep previously scheduled OR on 06/15/25 for tonsillectomy. Oral Clindamycin for 2 days sent to local pharmacy and ENT to follow-up additional prolongation of course after OR. Discharge Day Exam: Refer to daily progress note for physical exam Immunizations Administered for This Admission No immunizations on file. Significant Imaging Results: CT Soft Tissue Neck with IV contrast Final Result by Adam, Rad Results In (06/12 151) IMPRESSION: Left peritonsillar abscess. This report has been created using voice recognition software Pending Test Results and Tests to Obtain as Outpatient: In-Process Results No orders found from 05/15/2025 to 06/14/2025. Preliminary Results No orders found from 05/15/2025 to 06/14/2025. Disposition: She was discharged to home. Discharge Medications: She did not have significant changes to their home medications (see below) Medication List START taking these medications Morning Around Noon Evening Bedtime As Needed clindamycin 300 MG capsule Take 2 Capsules (600 mg) by mouth every 8 hours for 2 days Starting 11PM on day of discharge. Ask ENT after surgery about need to extend course. Commonly known as: CLEOCIN Last dose 06/13 at 4pm CONTINUE taking these medications which HAVE changed Morning Around Noon Evening Bedtime As Needed albuterol (2.5 MG/3ML) 0.083% nebulizer solution Use 3 mL (2.5 mg) by nebulization every 4 hours as needed for Wheezing or Shortness of Breath (Cough) What changed: Another medication with the same name was removed. Continue taking this medication, and follow the directions you see here. Commonly known as: VENTOLIN 3 mL CONTINUE taking these medications which HAVE NOT changed at this visit Morning Around Noon Evening Bedtime As Needed acetaminophen 500 MG tablet Take 2 Tablets (1,000 mg) by mouth every 6 hours as needed for Pain or Fever Take no more than 5 doses in a 24 hour period Commonly known as: TYLENOL Last dose 06/13 at 9:30am Beclomethasone Diprop 40 MCG/ACT Aerb Redihaler Inhale 2 Puffs into the lungs 2 times daily Commonly known as: QVAR RediHaler 2 Puffs 2 Puffs Last dose 06/12 at 8:20pm cetirizine 10 MG tablet Take 1 Tablet (10 mg) by mouth daily Commonly known as: ZyrTEC 1 Tablet Last given 06/13 at 9:30am FLUoxetine 10 MG capsule Commonly known as: PROzac See Instructions [facility] DEVICE Use with inhaled medication as instructed. Use with inhaled medication as instructed. propranolol 10 MG tablet (more content not included)... [facility] 06-12-2025 Evaluation + Plan note Associated Problem(s): Abscess, intratonsillar (Resolved 06/13/2025) Jocelyn Barajas is a 20 y.o. female with history of anxiety, ADHD, mild persistent asthma, seasonal allergies, endometriosis, and recurrent tonsillitis admitted for left peritonsillar abscess requiring IV antibiotics and monitoring pain control and hydration. - Routine vitals - Notify provider for vitals outside of ordered parameters - Tylenol 1000 mg PO Q6h ATC - Hold off on Motrin for now due to chance of surgery 06/15 - Oxycodone 5 mg Q4h PRN re: moderate pain - Morphine 4 mg Q3h PRN re: severe pain - s/p Decadron x1 in ED - Regular diet - NPO at midnight for ENT eval in AM - mIVF - Strict I&Os - IV Clindamycin Q8h (PCN allergy) - Consult to ENT - Home Albuterol neb PRN, Qvar BID, Zyrtec daily, Prozac daily, Propranolol BID PRN re: anxiety [facility] 06-12-2025 Hospital course Narrative Images from the original note were not included. Discharge/Transfer Summary Name: Jocelyn Barajas MR#: [id number] : 2005 Room #: 6214/01 Age/Sex: 20 y.o. female Admit Date: 06/12/2025 Admitting: J CARLOS Rivera Discharge Date: 06/13/2025 Discharged from: [facility] Attending: J CARLOS Matthews Final Diagnosis: Abscess, intratonsillar Significant Findings (Problem List): Active Hospital Problems No active problems to display. Resolved Hospital Problems Diagnosis Date Resolved Abscess, intratonsillar 06/13/2025 Reason for Hospitalization: Peritonsillar abscess Discharge Condition: Good Hospital Course (Care, treatment and services provided): Brief Narrative Hospital Course: Jocelyn is a 20 y.o. female with history of anxiety, ADHD, mild persistent asthma, seasonal allergies, endometriosis, and recurrent tonsillitis/peritonsillar abscess who presents with left sided throat pain secondary to L COW BUYER. Jocelyn started to have a throat tickle 3 days ago. 2 days ago, she had worsening left sided throat pain. She agreed her voice was more muffled she also had associated trismus and respiratory distress which improved with PRN Albuterol nebs. She had decreased PO intake and UOP. The left sided throat pain worsened, so ENT office was called and she was advised to be seen in the ED. In the ED, she was afebrile on arrival, HR 112, otherwise stable vitals. Mucous membranes were dry, left sided tonsillar swelling and uvular deviation present on exam. She was given a dose of Morphine 4 mg (1351) for pain 01/31. CT soft tissue neck with contrast was obtained and showed a left peritonsillar abscess measuring 1.5 x 1.5 x 2.2 cm. She was given a dose of Decadron 8 mg (1412), ~18 ml/kg NS bolus (1432) and a dose of Clindamycin (due to PCN allergy, at 1506) after speaking with ENT. Labs obtained including CBCd (WBC 13.0, 77& neutrophils, 15% lymphs); BMP (WNL), CRP (2.4) and urine HCG negative. She tolerated a few ice chips in the ED, but otherwise has not eaten anything. She has voided twice today. No respiratory distress noted in ED. Admitted to the acute care floor for IV antibiotics and re-evaluation with ENT. On the floor, Tylenol was scheduled for pain. PRN Oxycodone and Morphine available. mIVF started. Home medications continued. Clindamycin continued. ENT consulted who recommended treating at home with PO clindamycin and will keep previously scheduled OR on 06/15/25 for tonsillectomy. Oral Clindamycin for 2 days sent to local pharmacy and ENT to follow-up additional prolongation of course after OR. Discharge Day Exam: Refer to daily progress note for physical exam Immunizations Administered for This Admission No immunizations on file. Significant Imaging Results: CT Soft Tissue Neck with IV contrast Final Result by Adam, Rad Results In (06/12 1518) IMPRESSION: Left peritonsillar abscess. This report has been created using voice recognition software Pending Test Results and Tests to Obtain as Outpatient: In-Process Results No orders found from 05/15/2025 to 06/14/2025. Preliminary Results No orders found from 05/15/2025 to 06/14/2025. Disposition: She was discharged to home. Discharge Medications: She did not have significant changes to their home medications (see below) Medication List START taking these medications Morning Around Noon Evening Bedtime As Needed clindamycin 300 MG capsule Take 2 Capsules (600 mg) by mouth every 8 hours for 2 days Starting 11PM on day of discharge. Ask ENT after surgery about need to extend course. Commonly known as: CLEOCIN Last dose 06/13 at 4pm CONTINUE taking these medications which HAVE changed Morning Around Noon Evening Bedtime As Needed albuterol (2.5 MG/3ML) 0.083% nebulizer solution Use 3 mL (2.5 mg) by nebulization every 4 hours as needed for Wheezing or Shortness of Breath (Cough) What changed: Another medication with the same name was removed. Continue taking this medication, and follow the directions you see here. Commonly known as: VENTOLIN 3 mL CONTINUE taking these medications which HAVE NOT changed at this visit Morning Around Noon Evening Bedtime As Needed acetaminophen 500 MG tablet Take 2 Tablets (1,000 mg) by mouth every 6 hours as needed for Pain or Fever Take no more than 5 doses in a 24 hour period Commonly known as: TYLENOL Last dose 06/13 at 9:30am Beclomethasone Diprop 40 MCG/ACT Aerb Redihaler Inhale 2 Puffs into the lungs 2 times daily Commonly known as: QVAR RediHaler 2 Puffs 2 Puffs Last dose 06/12 at 8:20pm cetirizine 10 MG tablet Take 1 Tablet (10 mg) by mouth daily Commonly known as: ZyrTEC 1 Tablet Last given 06/13 at 9:30am FLUoxetine 10 MG capsule Commonly known as: PROzac See Instructions [facility] DEVICE Use with inhaled medication as instructed. Use with inhaled medication as instructed. propranolol 10 MG tablet Take 1 Tablet (10 mg) by mouth 2 times daily as needed for Other (anxiety) Commonly known as: INDERAL Take 1 Tablet (10 mg) by mouth 2 times daily as needed for Other (anxiety) Where to Get Your Medications These medications were sent to [facility] [address] [place] [address], [place] - [address] [place] [address] clindamycin 300 MG capsule Discharge Instructions: Instructions/Follow Up Future Labs/Procedures Expected by Expires Follow-up As directed Comments: Call ENT at [phone] with any questions leading up to surgery scheduled on 06/15/25. ENT office will call you tomorrow, 06/14/25 to review OR time and recommendations on stopping eating and taking medications for surgery. If you have concerns about your child's condition, or have questions about your child's care after discharge, and are unable to reach your child's primary care provider, please call the hospital's main phone number at [phone] and ask for the hospitalist regional wildlife agent. Call if any questions or worsening. Discharge Orders Future Labs/Procedures Expected by Expires Activity as tolerated As directed Call physician/healthcare provider for: New Problem As directed Call physician/healthcare provider for: Temperature >100.4 As directed Patient may shower As directed Regular diet for age As directed I spent 70 minutes on the exam of the patient, discussion of the hospital stay, instructions for continuing care to all relevant caregivers, and preparation of discharge records, prescriptions, and referral forms. Signed: J CARLOS Matthews 06/13/25 6:19 PM This note or partial portions of this note may have been created using a copy forward or copy paste feature, but these portions have been verified and re-edited for accuracy and any portions not in need of editing or reviews are not being used to generate any component necessary for billing purposes. Elements necessary for proper CPT code selection are based only on elements of the visit that are truly unique to this visit. documented in this encounter [facility] 06-12-2025 Plan of care note Problem: Infection Risk Goal: Absence of infection signs and symptoms Outcome: Ongoing Problem: Body Temperature - Abnormal Goal: Body temperature within specified parameters Outcome: Ongoing Goal: Knowledge of imbalanced body temperature prevention Outcome: Ongoing Problem: Transition Readiness Goal: Knowledge of discharge instructions Outcome: Ongoing Goal: Able to safely transition to next level of care Outcome: Ongoing Problem: Pain - Acute Goal: Reduced pain sensation Outcome: Ongoing [facility] 06-12-2025 History and physical note [facility] HISTORY & PHYSICAL History of Present Illness Jocelyn is a 20 y.o. female with history of anxiety, ADHD, mild persistent asthma, seasonal allergies, endometriosis, and recurrent tonsillitis/peritonsillar abscess who presents with left sided throat pain. She is accompanied by her mother. Jocelyn started to have a throat tickle 3 days ago. 2 days ago, she had worsening left sided throat pain. She agreed her voice was more muffled, was told she sounded like she had cotton balls in her mouth; she also had associated trismus and respiratory distress which improved with PRN Albuterol nebs. She had decreased PO intake and UOP. The left sided throat pain worsened, so ENT office was called and she was advised to be seen in the ED. In the ED, she was afebrile on arrival, HR 112, otherwise stable vitals. Mucous membranes were dry, left sided tonsillar swelling and uvular deviation present on exam. She was given a dose of Morphine 4 mg (1351) for pain 6/10. CT soft tissue neck with contrast was obtained and showed a left peritonsillar abscess measuring 1.5 x 1.5 x 2.2 cm. She was given a dose of Decadron 8 mg (1412), ~18 ml/kg NS bolus (1432) and a dose of Clindamycin (due to PCN allergy, at 1506) after speaking with ENT. Labs obtained including CBCd (WBC 13.0, 77& neutrophils, 15% lymphs); BMP (WNL), CRP (2.4) and urine HCG negative. She tolerated a few ice chips in the ED, but otherwise has not eaten anything. She has voided twice today. No respiratory distress noted in ED. Admitted to the acute care floor for IV antibiotics and re-evaluation with ENT. On arrival to the floor, she was well appearing. She feels slightly better and attributes this to the spontaneous drainage of the abscess. She can taste it and was able to spit some out earlier. Jocelyn and mom apprehensive due to having tonsillectomy surgery scheduled in 3 days on 06/[address] Novak which was already rescheduled prior due to an asthma exacerbation. They feel she has had so many tonsillar abscesses, they just want her tonsils out and are afraid this will not happen given her admission. Reached out to night house mover helper, Alis Couch PA-C who stated ENT will see her in AM, but to hold off on Motrin for now in case surgery does happen as planned. Updated bedside RN, mother and patient. Jocelyn asking for a chocolate milk and ordered a dinner tray. Patient Information Past Medical History: Diagnosis Date ADHD (attention deficit hyperactivity disorder) Anxiety 03/10/2023 Asthma Endometriosis 03/10/2023 Recurrent tonsillitis 03/20/2025 Urinary tract infection Past Surgical History: Procedure Laterality Date ABDOMINAL EXPLORATION SURGERY BLADDER SURGERY DENTAL SURGERY (Not in a hospital admission) Allergies[1] Objective 24-hour Vital Signs: BP Min: 105/68 Max: 121/69 Temp Av.7 C (98.1 F) Min: 36.5 C (97.7 F) Max: 37 C (98.6 F) Pulse Av.7 Min: 60 Max: 112 Resp Av Min: 18 Max: 22 SpO2 Av.3 % Min: 99 % Max: 100 % Weight Av.5 kg Min: 55.5 kg Max: 55.5 kg General: Patient appears healthy, well developed, well nourished, in no acute distress, smiling, playful, and interactive Head: atraumatic and normocephalic Neuro: alert, oriented appropriately for age, pupils: PERRL, normal muscle tone, strength and bulk Eyes: pupils equal, round, and reactive to light, sclera and conjunctiva clear Ears: canals clear, normal, tragus nontender, TM's clear bilaterally Nose: nares patent without discharge Throat: uvula is deviated right, tonsils are 4+ (severely enlarged) on the left with pus present and with erythema, palate intact, mucous membranes are pink and moist without lesions Neck: there is full range of motion, mild pain with lateral movement, cervical lymphadenopathy present on L Chest: breath sounds are clear to auscultation bilaterally without rales, rhonchi, or wheezes, easy work of breathing in room air Cardiac: regular rate and rhythm, normal S1 and S2, peripheral pulses strong and equal Abdomen: soft, nontender, nondistended, and bowel sounds are hypoactive Skin: pink, warm, well perfused, PIV to L wrist Musculoskeletal: normal tone, moves all extremities equally with full range of motion LDA: Patient Lines/Drains/Airways Status Active LDAs Name Placement date Placement time Site Days Peripheral IV 06/12/25 22 Left Wrist 06/12/25 1354 -- less than 1 Assessment & Plan Peritonsillar abscess Jocelyn Barajas is a 20 y.o. female with history of anxiety, ADHD, mild persistent asthma, seasonal allergies, endometriosis, and recurrent tonsillitis admitted for left peritonsillar abscess requiring IV antibiotics and monitoring pain control and hydration. - Routine vitals - Notify provider for vitals outside of ordered parameters - Tylenol 1000 mg PO Q6h ATC - Hold off on Motrin for now due to chance of surgery 06/15 - Oxycodone 5 mg Q4h PRN re: moderate pain - Morphine 4 mg Q3h PRN re: severe pain - s/p Decadron x1 in ED - Regular diet - NPO at midnight for ENT eval in AM - mIVF - Strict I&Os - IV Clindamycin Q8h (PCN allergy) - Consult to ENT - Home Albuterol neb PRN, Qvar BID, Zyrtec daily, Prozac daily, Propranolol BID PRN re: anxiety Attestation The note above is mine and reflects independent practice. Plan discussed with caregiver(s) and questions addressed. If time is used to select the level of claim, the only time counted is the time I personally devoted to the care of the patient I spent 55 minutes on the initial hospital care for this patient. Dara Lemon, ALEX-SENIOR IT PROJECT MANAGER 06/12/2025 6:46 PM This note or partial portions of this note may have been created using a copy forward or copy paste feature, but these portions have been verified and re-edited for accuracy and any portions not in need of editing or reviews are not being used to generate any component necessary for billing purposes. Elements necessary for proper CPT code selection are based only on elements of the visit that are truly unique to this visit. [1] Allergies Allergen Reactions Cefdinir Hives Penicillins Rash [facility] Work Phone: 06-12-2025 History and physical note [facility] H[facility]ORY & PHYSICAL History of Present Illness Jocelyn is a 20 y.o. female with history of anxiety, ADHD, mild persistent asthma, seasonal allergies, endometriosis, and recurrent tonsillitis/peritonsillar abscess who presents with left sided throat pain. She is accompanied by her mother. Jocelyn started to have a throat tickle 3 days ago. 2 days ago, she had worsening left sided throat pain. She agreed her voice was more muffled, was told she sounded like she had cotton balls in her mouth; she also had associated trismus and respiratory distress which improved with PRN Albuterol nebs. She had decreased PO intake and UOP. The left sided throat pain worsened, so ENT office was called and she was advised to be seen in the ED. In the ED, she was afebrile on arrival, HR 112, otherwise stable vitals. Mucous membranes were dry, left sided tonsillar swelling and uvular deviation present on exam. She was given a dose of Morphine 4 mg (1351) for pain 6/10. CT soft tissue neck with contrast was obtained and showed a left peritonsillar abscess measuring 1.5 x 1.5 x 2.2 cm. She was given a dose of Decadron 8 mg (1412), ~18 ml/kg NS bolus (1432) and a dose of Clindamycin (due to PCN allergy, at 1506) after speaking with ENT. Labs obtained including CBCd (WBC 13.0, 77& neutrophils, 15% lymphs); BMP (WNL), CRP (2.4) and urine HCG negative. She tolerated a few ice chips in the ED, but otherwise has not eaten anything. She has voided twice today. No respiratory distress noted in ED. Admitted to the acute care floor for IV antibiotics and re-evaluation with ENT. On arrival to the floor, she was well appearing. She feels slightly better and attributes this to the spontaneous drainage of the abscess. She can taste it and was able to spit some out earlier. Jocelyn and mom apprehensive due to having tonsillectomy surgery scheduled in 3 days on 06/[address] Novak which was already rescheduled prior due to an asthma exacerbation. They feel she has had so many tonsillar abscesses, they just want her tonsils out and are afraid this will not happen given her admission. Reached out to night house mover helper, Alis Couch PA-C who stated ENT will see her in AM, but to hold off on Motrin for now in case surgery does happen as planned. Updated bedside RN, mother and patient. Jocelyn asking for a chocolate milk and ordered a dinner tray. Patient Information Past Medical History: Diagnosis Date ADHD (attention deficit hyperactivity disorder) Anxiety 03/10/2023 Asthma Endometriosis 03/10/2023 Recurrent tonsillitis 03/20/2025 Urinary tract infection Past Surgical History: Procedure Laterality Date ABDOMINAL EXPLORATION SURGERY BLADDER SURGERY DENTAL SURGERY (Not in a hospital admission) Allergies[1] Objective 24-hour Vital Signs: BP Min: 105/68 Max: 121/69 Temp Av.7 C (98.1 F) Min: 36.5 C (97.7 F) Max: 37 C (98.6 F) Pulse Av.7 Min: 60 Max: 112 Resp Av Min: 18 Max: 22 SpO2 Av.3 % Min: 99 % Max: 100 % Weight Av.5 kg Min: 55.5 kg Max: 55.5 kg General: Patient appears healthy, well developed, well nourished, in no acute distress, smiling, playful, and interactive Head: atraumatic and normocephalic Neuro: alert, oriented appropriately for age, pupils: PERRL, normal muscle tone, strength and bulk Eyes: pupils equal, round, and reactive to light, sclera and conjunctiva clear Ears: canals clear, normal, tragus nontender, TM's clear bilaterally Nose: nares patent without discharge Throat: uvula is deviated right, tonsils are 4+ (severely enlarged) on the left with pus present and with erythema, palate intact, mucous membranes are pink and moist without lesions Neck: there is full range of motion, mild pain with lateral movement, cervical lymphadenopathy present on L Chest: breath sounds are clear to auscultation bilaterally without rales, rhonchi, or wheezes, easy work of breathing in room air Cardiac: regular rate and rhythm, normal S1 and S2, peripheral pulses strong and equal Abdomen: soft, nontender, nondistended, and bowel sounds are hypoactive Skin: pink, warm, well perfused, PIV to L wrist Musculoskeletal: normal tone, moves all extremities equally with full range of motion LDA: Patient Lines/Drains/Airways Status Active LDAs Name Placement date Placement time Site Days Peripheral IV 06/12/25 22 Left Wrist 06/12/25 1354 -- less than 1 Assessment & Plan Peritonsillar abscess Jocelyn Barajas is a 20 y.o. female with history of anxiety, ADHD, mild persistent asthma, seasonal allergies, endometriosis, and recurrent tonsillitis admitted for left peritonsillar abscess requiring IV antibiotics and monitoring pain control and hydration. - Routine vitals - Notify provider for vitals outside of ordered parameters - Tylenol 1000 mg PO Q6h ATC - Hold off on Motrin for now due to chance of surgery 06/15 - Oxycodone 5 mg Q4h PRN re: moderate pain - Morphine 4 mg Q3h PRN re: severe pain - s/p Decadron x1 in ED - Regular diet - NPO at midnight for ENT eval in AM - mIVF - Strict I&Os - IV Clindamycin Q8h (PCN allergy) - Consult to ENT - Home Albuterol neb PRN, Qvar BID, Zyrtec daily, Prozac daily, Propranolol BID PRN re: anxiety Attestation The note above is mine and reflects independent practice. Plan discussed with caregiver(s) and questions addressed. If time is used to select the level of claim, the only time counted is the time I personally devoted to the care of the patient I spent 55 minutes on the initial hospital care for this patient. Dara Lemon, ALEX-SENIOR IT PROJECT MANAGER 06/12/2025 6:46 PM This note or partial portions of this note may have been created using a copy forward or copy paste feature, but these portions have been verified and re-edited for accuracy and any portions not in need of editing or reviews are not being used to generate any component necessary for billing purposes. Elements necessary for proper CPT code selection are based only on elements of the visit that are truly unique to this visit. [1] Allergies Allergen Reactions Cefdinir Hives Penicillins Rash documented in this encounter [facility] 06-12-2025 Emergency department Note Gave pt small cup of ice chips per attending ok. Pt told only a small amount. [facility] 06-12-2025 Emergency department Note Gave pt small cup of ice chips per attending ok. Pt told only a small amount. Resident at bedside. Pt awake and alert, oriented x3. Skin warm, pink and dry. MMM. Lungs CTAB. Respirations easy and non labored. Abdomen soft and non distended. Pt with left tonsillar swelling, history of peritonsillar abscess. Painful and feels like it is draining Afebrile documented in this encounter [facility] 06-12-2025 Emergency department Note Resident at bedside. [facility] 06-12-2025 Emergency department Triage note Pt awake and alert, oriented x3. Skin warm, pink and dry. MMM. Lungs CTAB. Respirations easy and non labored. Abdomen soft and non distended. Pt with left tonsillar swelling, history of peritonsillar abscess. Painful and feels like it is draining Afebrile [facility] 06-07-2025 Note PRE-OP CONSULTATION This is a telemedicine video visit requested by the patient/guardian that was performed with the patient's location at home and the provider's location at office. DATE OF SERVICE: 06/07/2025 3D TECHNOLOGIST PROVIDER: Ronna Pinon APRN-CELINE SURGICAL DIAGNOSIS: tonsillar abscess, recurrent tonsillitis Proposed surgery date: 06/15/2025 Proposed surgical procedure: tonsillectomy Advice/opinion was requested by Guy Novak MD for pre-surgical consultation. CHIEF COMPLAINT: recurrent strep throat, peritonsillar abscess HISTORY OF PRESENT ILLNESS: Jocelyn Barajas is a 20 y.o. female who is being consulted via telehealth/video for perioperative evaluation. Patient has a history of ADHD, anxiety, mild asthma, endometriosis as well as Recurrent tonsillitis and peritonsillar abscess. This has been going on for several years The history is provided by the mother and a chart review for evaluation for surgical risk factors. MEDICAL/SURGICAL HISTORY: Past Medical History: Diagnosis Date ADHD (attention deficit hyperactivity disorder) Asthma Urinary tract infection Past Surgical History: Procedure Laterality Date ABDOMINAL EXPLORATION SURGERY BLADDER SURGERY DENTAL SURGERY Past hospitalizations: yes tonsillar abscess, nothing in the last month DRUG/FOOD ALLERGIES: Allergies[1] MEDICATIONS: Encounter Medications[2] ANESTHESIA HISTORY: Difficulty with anesthesia? No Family history of difficulty with anesthesia? Yes-Mother with PONV Signs/symptoms of MARISELA? no BLEEDING HISTORY: History of bleeding issues in patient? no Bleeding problems in family? no History of anemia in patient? no Sickle Cell issues in patient or family? N/A REVIEW OF SYSTEMS: Comprehensive review of systems: History obtained from Mother. General ROS: negative Psychological ROS: positive for - anxiety and ADHD ENT ROS: positive for - frequent tonsillitis and peritonsillar abscess Allergy and Immunology ROS: positive for - seasonal allergies Respiratory ROS: negative except mild asthma Cardiovascular ROS: deferred Urinary ROS: no dysuria, trouble voiding or hematuria positive for - UTIs Vp Delivery ROS: endometriosis and PCOS A complete ROS was performed. Pertinent positives have been documented above or are in the HPI. All other systems were negative. Recent Illnesses? no HISTORY: Noncontributory DEVELOPMENTAL HISTORY: Milestones: Not pertinent IMMUNIZATIONS: Stated as up to date, no records available SOCIAL/FAMILY HISTORY: Jocelyn lives with parents and one brother Special Needs: None Preferred Language: [place] Daycare: no School: N/A Smoking/Alcohol/Drug Use or Exposure: None Family History Problem Relation Age of Onset High Blood Pressure Father No known problems Mother Allergies Brother seasonal allergies Diabetes Other PGM Diabetes Other Maternal side of family VITAL SIGNS: Temp and weight obtained via home equipment/family during this Telehealth visit. Completed set of vital signs to be completed on the day of this procedure. Vitals: Ht Readings from Last 1 Encounters: 03/29/25 165.1 cm (61%, Z= 0.27)* * Growth percentiles are based on CDC (Girls, 2-20 Years) data. Wt Readings from Last 1 Encounters: 06/07/25 60.3 kg No height and weight on file for this encounter. SpO2 Readings from Last 3 Encounters: 03/21/25 98% 04/20/24 100% 07/20/19 97% PHYSICAL EXAM: Focused provider physical to be completed on the day of this procedure General: Patient appears healthy, well developed, well nourished, in no acute distress Head: atraumatic and normocephalic Neuro: alert, oriented appropriately for age Eyes: sclera and conjunctiva clear Ears: normal, tragus nontender Nose: nares patent without discharge Dentition: intact Throat: oropharynx is poorly visualized, mucous membranes are pink and moist without lesions Neck: there is full range of motion Chest: even and unlabored Cardiac: deferred Abdomen: soft and nontender Back: deferred : deferred Skin: pink, warm, well perfused Lymphatic: not examined Musculoskeletal: normal tone, moves all extremities equally with full range of motion DIAGNOSTIC STUDIES REVIEWED: The following lab results have been ordered/reviewed. POCT HCG ordered for preop Calcium Date Value Ref Range Status 07/19/2019 9.1 7.6 - 11.0 mg/dL Final CALCIUM Date Value Ref Range Status 03/20/2025 9.5 7.6 - 11.0 mg/dL Final Comment: Verified By: [id number] Carbon Dioxide Date Value Ref Range Status 07/19/2019 24.0 22.0 - 29.0 mEq/L Final CARBON DIOXIDE Date Value Ref Range Status 03/20/2025 24.4 22.0 - 29.0 mmol/L Final Comment: Verified By: [id number] Chloride Date Value Ref Range Status 07/19/2019 103 96 - 108 mEq/L Final CHLORIDE Date Value Ref Range Status 03/20/2025 101 96 - 108 mmol/L Final Comment: Verified By: [id number] Creatinine Date Value Ref Range Sta (more content not included)... [facility] 03-27-2025 Note HNO ID: [id number] Author: SRIRAM STEWART APRN.SENIOR IT PROJECT MANAGER Service: ? Author Type: Nurse Practitioner Type: Progress Notes Filed: 03/27/2025 19:01 Note Text: URGENT CARE GEO Subjective HPI HPI Jocelyn Barajas is a 19 year old female who presents today for CC of itchy rash after starting antibiotics. Has tried nothing for relief. Symptoms are worsened by nothing. Risk factors has pcn allergy. Being treated for peritonsillar abscess with cefdinir and clindamycin. Denies cp/sob. .Patient presents with: Allergic Reaction: Possible allergic reaction to medication, hives, itchy redness, chests, BEATRIZ legs No past medical history on file. No past surgical history on file. ALLERGIES Grass Pollen and Penicillins MEDICATIONS albuterol (PROVENTIL) 2.5 mg /3 mL (0.083 %) nebulizer solution Use 3 mL via nebulizer every 4 hours as needed. Use over 5-15minutes. albuterol (PROVENTIL) 2.5 mg /3 mL (0.083 %) nebulizer solution Use 3 mL via nebulizer every 4 hours as needed for wheezing/shortness of breath. Use over 5-15minutes. predniSONE (DELTASONE) 20 mg tablet Take 2 tablets by mouth once daily for 3 days. Take daily with food. loratadine (CLARITIN) 10 mg tablet (Patient not taking: Reported on 03/27/2025) D-MANNOSE ORAL Take 2,000 mg by mouth. (Patient not taking: Reported on 03/27/2025) VITAMIN C 500 mg tablet (Patient not taking: Reported on 03/27/2025) L. acidophilus-L. salivarius-B. bifidum-S. thermophilus (ACIDOPHILUS PROBIOTIC BLEND) 175 mg capsule (Patient not taking: Reported on 03/27/2025) SENEXON-S 8.6-50 mg per tablet (Patient not taking: Reported on 03/27/2025) cabergoline (DOSTINEX) 0.5 mg tablet 0.5 mg every Thursday and Thursday. Inserted vaginally HS (Patient not taking: Reported on 03/27/2025) Cholecalciferol, Vitamin D3, 25 mcg (1,000 unit) cap Take 5,000 Units by mouth once daily. (Patient not taking: Reported on 03/27/2025) FLOVENT HFA 44 mcg/actuation inhaler (Patient not taking: Reported on 12/29/2023) metFORMIN ER (GLUCOPHAGE XR) 500 mg 24 hr tablet Take 1,000 mg by mouth two times a day. (Patient not taking: Reported on 03/27/2025) loratadine (CLARITIN ORAL) Take by mouth. (Patient not taking: Reported on 03/27/2025) melatonin 1 mg tablet Take by mouth. (Patient not taking: Reported on 03/27/2025) ibuprofen (MOTRIN) 600 mg tablet Take 1 [...] Never Vaping Use Vaping status: Never Used Review of Systems Objective BP 100/72 Pulse 95 Temp 36.6 ?C (97.9 ?F) Resp 18 Wt 59.8 kg (131 lb 13.4 oz) LMP 12/24/2023 (Exact Date) SpO2 98% BMI 22.07 kg/m? Physical Exam Constitutional: General: She is not in acute distress. Appearance: She is not toxic-appearing or diaphoretic. HENT: Head: Normocephalic and atraumatic. Mouth/Throat: Lips: [place]. Mouth: Mucous membranes are moist. Pharynx: Uvula midline. Posterior oropharyngeal erythema present. Tonsils: No tonsillar abscesses. Cardiovascular: Rate and Rhythm: Normal rate and regular rhythm. Heart sounds: Normal heart sounds, S1 normal and S2 normal. Pulmonary: Effort: Pulmonary effort is normal. Breath sounds: Normal breath sounds. Lymphadenopathy: Cervical: No cervical adenopathy. Right cervical: No superficial cervical adenopathy. Left cervical: No superficial cervical adenopathy. Skin: Neurological: Mental Status: She is alert and oriented to person, place, and time. {ASSESSMENT/PLAN: 1. Rash - ICD9: 782.1, ICD10: R21 Hold cefdinir Continue clinda Few days of steroids ordered Urgent f/u for red flag s/s. - PREDNISONE 20 MG TABLET Sriram Stewart APRN.SENIOR IT PROJECT MANAGER History and Record Review External record(s) reviewed: prior outpatient record. Disposition The patient was discharged. Procedures [facility] 03-27-2025 History of Present illness Narrative Images from the original note were not included. URGENT CARE GEO Subjective HPI HPI Jocelyn Barajas is a 19 year old female who presents today for CC of itchy rash after starting antibiotics. Has tried nothing for relief. Symptoms are worsened by nothing. Risk factors has pcn allergy. Being treated for peritonsillar abscess with cefdinir and clindamycin. Denies cp/sob. .Patient presents with: Allergic Reaction: Possible allergic reaction to medication, hives, itchy redness, chests, BEATRIZ legs No past medical history on file. No past surgical history on file. ALLERGIES Grass Pollen and Penicillins MEDICATIONS albuterol (PROVENTIL) 2.5 mg /3 mL (0.083 %) nebulizer solution Use 3 mL via nebulizer every 4 hours as needed. Use over 5-15minutes. albuterol (PROVENTIL) 2.5 mg /3 mL (0.083 %) nebulizer solution Use 3 mL via nebulizer every 4 hours as needed for wheezing/shortness of breath. Use over 5-15minutes. predniSONE (DELTASONE) 20 mg tablet Take 2 tablets by mouth once daily for 3 days. Take daily with food. loratadine (CLARITIN) 10 mg tablet (Patient not taking: Reported on 03/27/2025) D-MANNOSE ORAL Take 2,000 mg by mouth. (Patient not taking: Reported on 03/27/2025) VITAMIN C 500 mg tablet (Patient not taking: Reported on 03/27/2025) L. acidophilus-L. salivarius-B. bifidum-S. thermophilus (ACIDOPHILUS PROBIOTIC BLEND) 175 mg capsule (Patient not taking: Reported on 03/27/2025) SENEXON-S 8.6-50 mg per tablet (Patient not taking: Reported on 03/27/2025) cabergoline (DOSTINEX) 0.5 mg tablet 0.5 mg every Thursday and Thursday. Inserted vaginally HS (Patient not taking: Reported on 03/27/2025) Cholecalciferol, Vitamin D3, 25 mcg (1,000 unit) cap Take 5,000 Units by mouth once daily. (Patient not taking: Reported on 03/27/2025) FLOVENT HFA 44 mcg/actuation inhaler (Patient not taking: Reported on 12/29/2023) metFORMIN ER (GLUCOPHAGE XR) 500 mg 24 hr tablet Take 1,000 mg by mouth two times a day. (Patient not taking: Reported on 03/27/2025) loratadine (CLARITIN ORAL) Take by mouth. (Patient not taking: Reported on 03/27/2025) melatonin 1 mg tablet Take by mouth. (Patient not taking: Reported on 03/27/2025) ibuprofen (MOTRIN) 600 mg tablet Take 1 [...] Never Vaping Use Vaping status: Never Used Review of Systems Objective BP 100/72 Pulse 95 Temp 36.6 C (97.9 F) Resp 18 Wt 59.8 kg (131 lb 13.4 oz) LMP 12/24/2023 (Exact Date) SpO2 98% BMI 22.07 kg/m Physical Exam Constitutional: General: She is not in acute distress. Appearance: She is not toxic-appearing or diaphoretic. HENT: Head: Normocephalic and atraumatic. Mouth/Throat: Lips: [place]. Mouth: Mucous membranes are moist. Pharynx: Uvula midline. Posterior oropharyngeal erythema present. Tonsils: No tonsillar abscesses. Cardiovascular: Rate and Rhythm: Normal rate and regular rhythm. Heart sounds: Normal heart sounds, S1 normal and S2 normal. Pulmonary: Effort: Pulmonary effort is normal. Breath sounds: Normal breath sounds. Lymphadenopathy: Cervical: No cervical adenopathy. Right cervical: No superficial cervical adenopathy. Left cervical: No superficial cervical adenopathy. Skin: Neurological: Mental Status: She is alert and oriented to person, place, and time. {ASSESSMENT/PLAN: 1. Rash - ICD9: 782.1, ICD10: R21 Hold cefdinir Continue clinda Few days of steroids ordered Urgent f/u for red flag s/s. - PREDNISONE 20 MG TABLET Sriram Stewart APRN.SENIOR IT PROJECT MANAGER History and Record Review External record(s) reviewed: prior outpatient record. Disposition The patient was discharged. Procedures documented in this encounter [facility] 03-22-2025 Plan of care note Problem: Pain - Acute Goal: Reduced pain sensation Outcome: Completed [facility] 03-22-2025 Miscellaneous Notes Problem: Pain - Acute Goal: Reduced pain sensation Outcome: Completed Problem: Pain - Acute Goal: Reduced pain sensation Outcome: Ongoing Associated Problem(s): Peritonsillar abscess Jocelyn is a 19 y.o. female with history of anxiety, bipolar disorder, asthma, PCOS, multiple strep throat diagnoses, and previous peritonsillar abscess here for sore throat, inability to tolerate PO, and CT finding of left peritonsillar abscess. She has been improving on IV antibiotics and feels that the abscess has drained some. She feels that pain has improved. She requires admission for close clinical monitoring given risk of worsening, and re-evaluation with ENT in the morning. Plan: - ENT consulted, they would like to re-evaluate patient in the morning - Regular diet - NPO at midnight - Tylenol Q6H PRN - Ceftriaxone Q24H - Clindamycin Q8H - Routine vitals 03/21/25 1539 Group Session Time Spent 60 minutes Session Occurred [facility] Type of Expressive Therapy Service Art Therapy Reason for Referral Not Specified Participation included Patient Observed Mental Status During Group Appropriate Behavior During Session Engaged;Quiet Interventions/Goals Addressed Stress Management;Support and Enhance Autonomy;Reduce Isolation;Self-Expression Pt was active and engaged in group. Pt chose to work with drawing pencils on paper to create several drawings of geometric shapes and a face. Pt was social and appropriate with staff. Pt seemed to benefit from time spent in group. CLINTON Encarnacion, NUTRITIONAL HEALTH COACH, CCTP Licensed Art Therapist and Licensed Professional Counselor [facility] Office phone: [phone] NUTRITION SCREENING: Reviewed H&P, progress notes, nursing nutrition screen, problem list, growth, current nutrition support, nutritionally significant labs and medications. Jocelyn Barajas is a 19 y.o. female Problem List[1] Past Medical History: Diagnosis Date ADHD (attention deficit hyperactivity disorder) Asthma Current Diet: NPO PO Intake(%): n/a Allergies[2] Body mass index is 21.49 kg/m . at the 47 %ile (Z= -0.07) based on CDC (Girls, 2-20 Years) BMI-for-age based on BMI available on 03/20/2025. Medications: reviewed Lab Results: glucose within normal limits Recent Labs 03/20/25 1441 NA 140 K 3.8 CL 101 CO2 24.4 BUN 10 GLU 88 CALCIUM 9.5 CREATININE 0.69 Recent Labs 03/20/25 1441 WBC 16.3* RBC 4.53 HGB 13.2 HCT 38.6 MCV 85.2 MCH 29.1 MCHC 34.2* PLT 327 MPV 9.5* Nutrition Concerns: Patient has history of strep throat and was on steroids a week prior to admission. H&P states that PO has not been tolerated due to food getting stuck in throat. She has been having dysuria as well. Weight has been trending down since 2019. But BMI is still within normal limits, no recent weight loss more than 5% within the past year. Current BMI = 21.49. Follow up in two days to monitor PO and diet advancement. Plan: Hand Expansion Envelope Maker/Import/Export Clerk to follow-up in two days. Monitor for diet advancement, nutritional intake, tolerance, clinical condition, and weight changes. NPO >3days, Refer to dietitian for further evaluation and nutrition support. Demetra Fregoso March 21, 2025 [1] Patient Active Problem List Diagnosis Attention deficit disorder with hyperactivity(314.01) Asthma, mild persistent BMI (body mass index), pediatric, 95-99% for age Seasonal allergies Endometriosis Anxiety Cyst of ovary Peritonsillar abscess [2] Allergies Allergen Reactions Penicillins Rash Images from the original note were not included. Consult Note NAME: Jocelyn Barajas DATE OF SERVICE: 03/21/2025 PRIMARY CARE PROVIDER: Mitzy Fung MD ATTENDING PROVIDER: Melissa Gomez DO REASON FOR CONSULTATION: Jocelyn Barajas is being seen today for a consultive service at the request of Melissa Gomez DO for our opinion or medical advice regarding left peritonsillar abscess. HISTORY OF PRESENT ILLNESS: Jocelyn is a 19 y.o.female who presented to the ER for a 1 week history of a sore throat and concerns for a throat abscess. She was seeing [facility] and was recommended to come to [facility] ER. A CT revealed: A left peritonsillar abscess measuring 2.0 x 2.2 x 3.5 cm seen. Another small abscess is seen in the tonsillar fossa anteriorly and medially measuring 1.7 x 0.3 x 1.5 cm. She was started on IV antibiotics last night. Her abscess started to spontaneously drain overnight and she is showing drastic improvement in her symptoms. She does have a significant history of recurrent tonsillitis, 5+ time per year. She has been admitted to an outside hospital in the past for concerns of a throat abscess. She does not typically snore at night. PAST MEDICAL HISTORY: Past Medical History: Diagnosis Date ADHD (attention deficit hyperactivity disorder) Asthma PAST SURGICAL HISTORY: Past Surgical History: Procedure Laterality Date DENTAL SURGERY DRUG/FOOD ALLERGIES: Allergies[1] IMMUNIZATIONS: Immunization History Administered Date(s) Administered DTaP 2005, 2005, 2005, 11/26/2006, 05/10/2010 DTaP/Hep B/IPV (PEDIARIX) 2005 HIB 2005, 2005, 2005, 06/08/2006 HPV 9-valent 04/29/2018, 04/16/2020 Hepatitis A (PED/ADOL) 04/29/2018, 04/16/2020 Hepatitis B Ped/Adol 2005, 2005, 2005 INFLUENZA SPLIT 0.5 ML 05/10/2010, 06/07/2010, 04/22/2012 IPV 2005, 2005, 2005, 05/10/2010 Influenza Vaccine 0.5 mL Quadrivalent (PF) 06/30/2017, 04/30/2021 Influenza Vaccine 0.5 mL Trivalent (PF) 09/07/2024 Influenza Vaccine Intranasal Quadrivalent 05/10/2014, 05/14/2015 MENINGOCOCCAL CONJUGATE ACWY VACCINE (MENACTRA) 04/28/2017, 04/26/2021 MMR 06/08/2006 MMRV (PROQUAD) 05/10/2010 PFIZER (purple cap) COVID-19, mRNA, LNP-S, 30mcg/0.3mL dose 04/30/2021, 05/22/2021 Pneumococcal Conjugate 2005, 02/20/2006, 06/08/2006, 11/26/2006 Polio, Unspecified Formulation 2005 Serogroup B Meningococcal Vaccine (BEXSERO) 04/26/2021, 03/10/2023 Tdap 04/28/2017 Varicella 11/26/2006 MEDICATIONS: Current Medications[2] FAMILY HISTORY: Family History Problem Relation Age of Onset High Blood Pressure Father No known problems Mother Allergies Brother seasonal allergies Diabetes Other PGM Diabetes Other Maternal side of family REVIEW OF SYSTEMS Eyes: Within normal limits Ears: Within normal limits Nose: Within normal limits Throat: Frequent sore throat, Difficulty swallowing, and Lump in neck Lungs: Within normal limits Heart: Within normal limits Gastrointestinal: Within normal limits Genitourinary: Within normal limits Nervous System: Within normal limits Endocrine: Within normal limits Musculoskeletal: Within normal limits Heme: Within normal limits OBJECTIVE: Vital Signs Temp: 36.6 C (97.9 F) Temp source: Temporal Heart Rate: 78 Heart Rate Source: Apical Resp: 16 Resp Source: Auscultation SpO2: 100 % BP: 104/62 MAP (mmHg): 75 BP Location: Left upper arm BP Method: Automatic (cuff) Patient Position: Supine Vent Settings/O2 Device Room Air: 21% Physical Findings: On physical examination, this is a well developed well nourished child in no apparent distress. Height is 165 cm, weight is 58.5 kg, temperature is 36.6 C (97.9 F). Cranium is normocephalic. Eyes show normal extraocular mobility without nystagmus, and the sclerae are clear. The auricles are normal in size, shape, and position bilaterally. The external nose is without deformity by visualization and palpation. Anterior rhinoscopy reveals a midline septum, inferior turbinates that are normal size and position, a patent nasal airway bilaterally, and no mucoid drainage bilaterally. There is no drainage from the nasopharynx. There is normal mandibular position with no trismus. Oral examination shows pink mucosa without lesions, tonsils that are 2+ bilaterally without exudate, and a palate that is intact and rises symmetrically. There is left peritonsillar fullness. Palpation of the neck reveals no masses or lymphadenopathy, a midline trachea, and thyroid gland without nodules or enlargement. Carotid pulses are normal. Major salivary glands are without masses or tenderness to palpation. Cranial nerves II-XII are grossly intact. Vocalizations are normal without stridor or stertor. There are no retractions and no wheezing. Cutaneous exam reveals no jaundice or cyanosis. Labs Results: Recent Labs 03/20/25 1441 RBC 4.53 WBC 16.3* HCT 38.6 HGB 13.2 MCH 29.1 MCHC 34.2* MCV 85.2 MPV 9.5* BASOPCT 0.2* EOSPCT 0.4* MONOPCT 6.6 NEUTOPHILPCT 80.8* NEUTROPHIL 13.16* Recent Labs 03/20/25 1441 CO2 24.4 CL 101 K 3.8 NA 140 Cultures last 72 hrs Procedure Component Value Ref Range Date/Time Urine culture [[id number]] Collected: 03/20/252216 Specimen: Urine from Clean Catch Updated: 03/20/252216 MARIAH-VALLEJO VIRUS ANTIBODY PROFILE [[id number]] (Abnormal) Collected: 03/20/25 144 Specimen: Blood from Vein Updated: 03/20/25 1854 EBV Antibody, IgM Negative Negative EBV Nuclear Antigen IgG Antibody Positive Negative EBV Antibody, IgG (VCA) Positive Negative Narrative: Presence of detectable EBNA IgG and VCA IgG; absence of detectable EBV IgM. These results suggest a past infection with Mariah-Vallejo virus. CT Soft Tissue Neck with IV contrast Result Date: 03/20/2025 CLINICAL HISTORY: Left-sided neck swelling, voice changes, history of peritonsillar abscess TECHNIQUE: CT of the neck was performed with sagittal and coronal reformats with intravenous contrast. 75 mL of IsoVue 300 intravenous contrast was given. DOSE LINEAR PRODUCT: 152 mGy-cm. COMPARISON: None. FINDINGS: TONSILS/ADENOIDS: The left palatine tonsil is enlarged. A left peritonsillar abscess measuring 2.0 x 2.2 x 3.5 cm seen. Another small abscess is seen in the tonsillar fossa anteriorly and medially measuring 1.7 x 0.3 x 1.5 cm. The oropharyngeal airway is displaced and deviated towards the right side. LYMPH NODES: There are a enlarged lymph nodes in the right posterior triangle and upper jugular chain. No necrosis or abscess formation is seen. SALIVARY GLANDS: Normal. VASCULATURE: Normal. PARANASAL SINUSES: Normal. ORBITS: Imaged portions appear normal. THYROID GLAND: Normal. LUNG APICES: Normal. CERVICAL SPINE: Normal. BRAIN: Imaged portions appear normal. IMPRESSION: 1. Left peritonsillar abscess measuring 3.5 x 2.2 x 2.0 cm. Another small abscess in the tonsillar fossa anteromedially. 2. There is narrowing and deviation of the oropharyngeal airway to the right. 3. Left cervical adenopathy. This report has been created using voice recognition software ASSESSMENT: Jocelyn Barajas is a 19 year old female with recurrent tonsillitis and acutely a left peritonsillar abscess. RECOMMENDATIONS: She is showing great improvement with IV antibiotics and spontaneous drainage of the abscess. Recommend 24 hours of IV antibiotics. NPO at midnight for ENT reevaluation in the morning. She will likely benefit from an elective adenotonsillectomy in the future as an outpatient. Recommendation discussed with requesting provider. Plan of care discussed with Dr. Suresh. Marcela Lowe, VAC PRESS OPERATOR-SENIOR IT PROJECT MANAGER 03/21/25 [1] Allergies Allergen Reactions Penicillins Rash [2] Current Facility-Administered Medications Medication Dose Route Frequency Provider Last Rate Last Admin acetaminophen (TYLENOL) 160 MG/5ML suspension 640 mg 15 mg/kg/DOSE Oral Q6H PRN Gregoria Robbins W, DO NaCl 0.9% PosiFlush 2 mL 2 mL Intravenous Q8H India Das MD 0 mL/hr at 03/20/25 2105 2 mL at 03/20/25 2105 NaCl 0.9% PosiFlush 2 mL 2 mL Intravenous PRN India Das MD 0 mL/hr at 03/21/25 0550 2 mL at 03/21/25 0550 NaCl 0.9% PosiFlush 5 mL 5 mL Intravenous PRN India Das MD NaCl 0.9 % IV Flush bag 30 mL 30 mL Intravenous PRN India Das MD sterile water injection 10 mL 10 mL Intravenous PRN India Das MD NaCl 0.9 % 10 mL 10 mL Intravenous PRN India Das MD cefTRIAXone in D5W (ROCEPHIN) IV 2,000 mg 2,000 mg Intravenous Q24H EXACT Gregoria Robbins W, DO Stopped at 03/20/25 2242 Clindamycin in D5W (CLEOCIN) IV 600 mg 600 mg Intravenous Q8H EXACT Gregoria Robbins W, DO Stopped at 03/21/25 0528 Multidisciplinary Team Meeting Assessment/Plan of Care Reviewed Are there Case Management needs identified at this time? No case management consult at this time. [facility] will monitor for home care needs (equipment / services) Jocelyn is saline locked, on IV antibiotics Representatives: Case Management: Maura Pinedo RN Social Work: Sadiq SEXTON Child Life: Beatriz Manzano CCLS Nursing: Flor Fung RN clinical coordinator [facility]: Na Null RN, Crys Jiménez RN Draw Furnace Tender: Sabine Perez Problem: Pain - Acute Goal: Reduced pain sensation Outcome: Ongoing Associated Problem(s): Peritonsillar abscess Jocelyn is a 19 y.o. female with history of anxiety, bipolar disorder, asthma, PCOS, multiple strep throat diagnoses, and previous peritonsillar abscess here for sore throat, inability to tolerate PO, and CT finding of peritonsillar abscess. History, physical, and imaging consistent with peritonsilar abscess. She has shown some improvement with decadron. Jocelyn requires admission for IV antibiotics and possible drainage of abscess pending ENT evaluation. Plan: - ENT consult, appreciate recommendations - Start IV ceftriaxone and clindamycin as outside sensitivity showed ceftriaxone would be effective - Clear liquid diet, NPO at midnight - Routine vitals - UA and culture - Tylenol PRN, motrin PRN for breakthrough ATTENTION - Attention: This note is written by a student. Documentation below this line by a student or provider is for educational purposes only. The only elements of the student s note that may be incorporated into providers notes are Past Medical History, Family History and Social History, if appropriately reviewed. H&P Note Informant: Chief complaint: I have a throat abscess on the left side HPI: Jocelyn Barajas is a 19 year female with PMH of Bipolar, ADHD, Asthma, endometriosis, PCOS, group B strep, EBV, and recurrent strep infections who is here for evaluation of peritonsillar swelling and sore throat. COW BUYER: she was seen 1 week ago by an ENT in [place] to assess and treat her abscess. They started her on Cefdinir because of her allergies to penicillin and amoxicillin. The swelling and pain got worse after a few days, and she went to the ED on ThursdayMarch 17, and they switched her to clindamycin but the pain and swelling continued to worsen. At home she called her nurse, and they recommended that she should be seen at [facility] ED for further workup. In the ED they decided to to switch her to linezolid, flagyl, and Decadron (flagyl was ordered, but not given yet). Labwork includes CBC with WBC 16, CRP 7.3, monospot negative, EBV titers came back IgM -, IgG, BMP overall normal. CT neck with left peritonsillar abscess measuring 3.5 x 2.2 x 2.0 cm. An additional small abscess in the tonsillar fossa anteromedially. Jocelyn was admitted to the hospitalist team. On floor: She she reported to have yellow colored spit consistent with abscess drainage, and this help to reduce her swelling and trismus. She also reported to have urine with dark brown color, and painful urination. Family Hx: Mom had tonsils removed at young age ROS: Constitutional: No fever chills, but has spit up yellow pus most likely from abscess. : Brown colored urine Psych: has had halitosis, and difficulty swallowing. PE: VS: Temp - 36.6; pulse: 84; RR: 20; BP: 122/81. Constitutional: No acute distress, patient laying comfortably laying in bed. Ears: Clear, no tympanic swelling, redness, or discoloration Mouth/throat: Left peritonsillar swelling that is red and swollen, uvula is deviated to the right. Respiratory: CTA, no crackles, rales, or wheezes. Cardiac: RRR, no murmurs, rubs, or gallops. GI: Pain in RLQ that when palpated, the patient says it is consistent with PCOS and endometriosis Skin: Normal appearing, consistent with age, no cyanosis. Labs and Imaging: Group B strep culture + sensitive to ceftriaxone (collected at outside ENT office) Assessment: Jocelyn Barajas is a 19 year female with PMH of Bipolar, ADHD, Asthma, endometriosis, PCOS, group B strep, EBV, and recurrent strep infections who is here for evaluation of peritonsillar swelling and sore throat. Her current symptoms, PE findings, and lab cultures are consistent with peritonsillar abscess, and will be treated with antibiotics and and iv fluids. Diagnostic and Therapeutic Plan Plan: - ENT consult, appreciate recommendations - switch to IV Ceftriaxone, and clindamycin -Tylenol PRN for pain - mIVF D5 NS with 20 KCl - NPO at midnight - Routine vitals - GWEN Skinner STUDENT YR3 5:48 PM Initial ED Case Management screening tool completed. No CM discharge related concerns identified at this time. documented in this encounter [facility] 03-22-2025 Note [facility] EDICINE DISCHARGE SUMMARY Patient Information Name: Jocelyn Lujannhill Admit Date: 03/20/2025 Discharge Date: 03/22/2025 Admitting Attending: Vicente Lopez MD Discharge Attending: Melissa Gomez DO Patient Reason for Admission Brief reason for hospitalization: Jocelyn is a 19 y.o. female with a PMH of recurrent tonsillitis, peritonsillar abscess, anxiety, bipolar disorder, asthma, and PCOS, admitted for IV antibiotics, possible ENT intervention, and clinical monitoring in the setting of left peritonsillar abscess. Problem Course COW BUYER: 1 week prior to admission, at her ENT outpatient appointment, she tested positive for strep and was started on cefdinir and steroids. Culture grew GBS sensitive to ceftriaxone, resistant to clindamycin. 3 days prior to admission her pain and throat swelling worsened and she visited an outside ED where she was started on IV antibiotics and given decadron. Her antibiotics were switched to PO clindamycin and she was discharged. The swelling and pain continued to worsen which prompted her to present to [facility] ED. ED: Presented with trismus, muffled voice, left mandibular swelling and tenderness, and inability to tolerate PO intake. WBC 16 (80% neutrophils), CRP 7.3, monospot negative, BMP overall normal. EBV titers positive IgG, negative IgM, demonstrating previous exposure. CT neck with left peritonsillar abscess measuring 3.5 x 2.2 x 2.0 cm. An additional small abscess in the tonsillar fossa anteromedially. She was given linezolid and flagyl due to failure of cefdinir and clindamycin outpatient. ENT recommended decadron and consult once admitted. Jocelyn was admitted to the hospitalist team. Hospital Admission: ENT was consulted and she was started on IV ceftriaxone and clindamycin. The abscess spontaneously drained without ENT intervention which provided significant symptomatic relief. Her diet was advanced as tolerated and she was able to maintain PO intake. UA and culture were unremarkable. She was cleared by ENT and discharged with a total of 14 days of BID 300mg Cefdinir and TID 600mg Clindamycin (last day 04/02). ENT recommended outpatient follow up and planning for future tonsillectomy. Objective General: Alert and oriented. Appropriate to age. No acute distress. Laying comfortably in bed sleeping, awakening to voice. Well nourished. Voice was slightly muffled but clearly understood. HEENT: Moist oral mucosa without erythema or exudates. 1+ left tonsillar enlargement without erythema or exudates. No right tonsillar enlargement, erythema, or exudates. Uvula midline. Neck has no swelling or lymphadenopathy. Supple and Non-tender. Eyes were EOMI. PERRLA. Sclera and conjunctiva clear bilaterally. No nasal discharge. Moist nasal mucosa. Normocephalic atraumatic. Respiratory: Breath sounds clear and equal to auscultation bilaterally. Good aeration throughout lung paul. No rales, rhonchi, crackles, or wheezes. Cardiac: Regular rate and rhythm. Normal S1 and S2. No murmur, rubs or gallops. Peripheral pulses equal +2 bilaterally. Cap refill <2s. Abdomen: Soft, nontender, with no organomegaly. No distention. No masses palpable. Bowel sounds present. Extremities: Symmetric tone and moving all extremities. No clubbing, cyanosis, or edema. Skin: Warm dry and intact without rash or erythema. Assessment & Plan Reason for Admission / Final Principal Discharge Diagnosis: Peritonsillar abscess Discharge Disposition: Good She was discharged to home. Discharge Medications: Medication List START taking these medications Morning Around Noon Evening Bedtime As Needed acetaminophen 500 MG tablet Take 2 Tablets (1,000 mg) by mouth every 6 hours as needed for Pain or Fever Take no more than 5 doses in a 24 hour period Commonly known as: TYLENOL Notes to patient: Last at 12:05 am 03/22/25 2 Tablets cefdinir 300 MG capsule Take 1 Capsule (300 mg) by mouth 2 times daily for 11 days Commonly known as: OMNICEF 1 Capsule 1 Capsule clindamycin 300 MG capsule Take 2 Capsules (600 mg) by mouth 3 times daily for 11 days Commonly known as: CLEOCIN Notes to patient: Last at 5:00 am 03/22/25 2 Capsules 2 Capsules 2 Capsules CONTINUE taking these medications which HAVE NOT changed at this visit Morning Around Noon Evening Bedtime As Needed * albuterol 108 (90 Base) MCG/ACT inhaler Inhale 2 Puffs into the lungs every 4 hours as needed for Wheezing or Shortness of Breath Commonly known as: PROAIR HFA;VENTOLIN HFA;PROVENTIL HFA 2 Puffs * albuterol (2.5 MG/3ML) 0.083% nebulizer solution Use 3 mL (2.5 mg) by nebulization every 4 hours as needed for Wheezing or Shortness of Breath (Cough) Commonly known as: VENTOLIN 3 mL Beclomethasone Diprop 40 MCG/ACT Aerb Redihaler Inhale 2 Puffs into the lungs 2 times daily Commonly known as: QVAR RediHaler 2 Puffs 2 Puffs CARMELITA Mckoen (more content not included)... [facility] 03-22-2025 Plan of care note Problem: Pain - Acute Goal: Reduced pain sensation Outcome: Ongoing [facility] 03-22-2025 History of Present illness Narrative DAILY PROGRESS NOTE Name: Jocelyn Barajas Date:03/22/2025 Attending:Melissa Gomez DO Hospital Day: 3 SUBJECTIVE: Reported issues and events over the last 24 hours: Jocelyn feels overall improvement. OBJECTIVE: Vitals: Height: 165 cm Weight - Scale: 58.5 kg Temp: 36.5 C (97.7 F) I/O: Intake/Output Summary (Last 24 hours) at 03/22/2025 0919 Last data filed at 03/22/2025 0600 Gross per 24 hour Intake 2218.78 ml Output -- Net 2218.78 ml Exam: On physical examination, this is a well developed well nourished child in no apparent distress. Cranium is normocephalic. Eyes show normal extraocular mobility without nystagmus, and the sclerae are clear. The auricles are normal in size, shape, and position bilaterally. The external nose is without deformity by visualization. There is normal mandibular position with no trismus. Oral examination shows pink mucosa without lesions, tonsils that are 2+ bilaterally without exudate, and a palate that is intact and rises symmetrically. Palpation of the neck reveals no masses or lymphadenopathy, a midline trachea, and thyroid gland without nodules or enlargement. Carotid pulses are normal. Major salivary glands are without masses or tenderness to palpation. Cranial nerves II-XII are grossly intact. Vocalizations are normal without stridor or stertor. There are no retractions and no wheezing. Cutaneous exam reveals no jaundice or cyanosis. Medications: Current Medications[1] ASSESSMENT/PLAN: Jocelyn is a 19 year old with recurrent tonsillitis now admitted with tonsillar abscess. She has spontaneously drained and is much improved. No ENT surgical intervention indicated. Plan for T&A as an outpatient. J CARLOS Dyer 03/22/2025 [1] Current Facility-Administered Medications Medication Dose Route Frequency Provider Last Rate Last Admin docusate sodium (COLACE) capsule 100 mg 100 mg Oral Daily Abel Meghan R, DO acetaminophen (TYLENOL) 160 MG/5ML suspension 640 mg 15 mg/kg/DOSE Oral Q6H PRN Gregoria Robbins DO 640 mg at 03/22/25 0055 NaCl 0.9% PosiFlush 2 mL 2 mL Intravenous Q8H India Das MD 2 mL/hr at 03/22/25 0823 2 mL at 03/22/25 0823 NaCl 0.9% PosiFlush 2 mL 2 mL Intravenous PRN India Das MD 0 mL/hr at 03/21/25 0550 2 mL at 03/21/25 0550 NaCl 0.9% PosiFlush 5 mL 5 mL Intravenous PRN India Das MD NaCl 0.9 % IV Flush bag 30 mL 30 mL Intravenous PRN India Das MD Stopped at 03/21/25 1323 sterile water injection 10 mL 10 mL Intravenous PRN India Das MD NaCl 0.9 % 10 mL 10 mL Intravenous PRN India Das MD cefTRIAXone in D5W (ROCEPHIN) IV 2,000 mg 2,000 mg Intravenous Q24H EXACT Gregoria Robbins DO Stopped at 03/21/25 2246 Clindamycin in D5W (CLEOCIN) IV 600 mg 600 mg Intravenous Q8H EXACT Gregoria Robbins DO Stopped at 03/22/25 0540 Images from the original note were not included. [facility] MEDICINE DAILY PROGRESS NOTE Assessment & Plan Peritonsillar abscess Present on Admission: Yes Jocelyn is a 19 y.o. female with history of anxiety, bipolar disorder, asthma, PCOS, multiple strep throat diagnoses, and previous peritonsillar abscess here for sore throat, inability to tolerate PO, and CT finding of left peritonsillar abscess. She has been improving on IV antibiotics and feels that the abscess has drained some. She feels that pain has improved. She requires admission for close clinical monitoring given risk of worsening, and re-evaluation with ENT in the morning. Plan: - ENT consulted, they would like to re-evaluate patient in the morning - Regular diet - NPO at midnight - Tylenol Q6H PRN - Ceftriaxone Q24H - Clindamycin Q8H - Routine vitals Subjective Interval history: NAOE, Stable, feels much better today with 3/10 left sided pressure, mom says 85% better than yesterday. She reports that she has been able to eat and drink more normally today, and voice is sounding better. Objective 24-hour Vital Signs: BP Min: 96/44 Max: 127/64 Temp Av.5 C (97.7 F) Min: 36.2 C (97.2 F) Max: 36.9 C (98.4 F) Pulse Av.1 Min: 68 Max: 97 Resp Av Min: 16 Max: 20 SpO2 Av % Min: 100 % Max: 100 % Height Av cm Min: 165 cm Max: 165 cm Weight Av.2 kg Min: 57.8 kg Max: 58.5 kg Oxygen Therapy: None (Room air) Physical Exam Vitals reviewed. Constitutional: Appearance: Normal appearance. She is normal weight. HENT: Head: Salivary Glands: Right salivary gland is diffusely enlarged. Left salivary gland is diffusely enlarged. Mouth/Throat: Pharynx: Oropharyngeal exudate and posterior oropharyngeal erythema present. Neck: Comments: Swollen , Tender to palpation Cardiovascular: Rate and Rhythm: Normal rate and regular rhythm. Heart sounds: Normal heart sounds. No murmur heard. No gallop. Pulmonary: Effort: Pulmonary effort is normal. Breath sounds: Normal breath sounds. No wheezing or rales. Musculoskeletal: Cervical back: Neck supple. No rigidity. Skin: General: Skin is warm and dry. Neurological: Mental Status: She is alert. Attending Exam General: The patient is alert, awake, and in no acute distress. HEENT: Eyes: Normal sclera and conjunctiva without discharge. Mouth: Moist mucous membranes, no oral lesions, posterior oropharynx with left sided peritonsillar swelling with mild uvular deviation. No exudate. Mild swelling on left submandibular region with slight tenderness to palpation. Neck: Able to move neck well without pain. Bilaterally anterior cervical lymphadenopathy. Cardiac: Regular rate and rhythm. No murmurs, rubs, or gallops. Pulses strong and symmetrical. Capillary refill <2 seconds. Respiratory: Clear to auscultation at all anterior and posterior listening posts. No rales, rhonchi, or wheezes. Abdomen: Abdomen soft, non-tender, and non-distended with normoactive bowel sounds present in all four quadrants. Extremities: Patient has full range of motion of all extremities. Neurologic: Cranial nerves II-XII grossly intact. Skin: Skin is warm and dry. No rashes. LDA: Patient Lines/Drains/Airways Status Active LDAs Name Placement date Placement time Site Days Peripheral IV 03/20/25 20 Left Antecubital 03/20/25 1445 -- less than 1 Shelton Escobar MD PGY1 8:28 AM 03/21/2025 Pediatric [facility] Medicine Attending I reviewed the history and performed a pertinent physical examination at 1230 on 03/21/25. I agree with the findings described in the note and modified as necessary. This note or partial portions of this note may have been created using a copy forward or copy paste feature, but these portions have been verified and re-edited for accuracy and any portions not in need of editing or reviews are note being used to generate any component necessary for billing purposes. Elements necessary for proper CPT code selection are based only on elements of the visit that are truly unique to this visit. Management of the patient has been carried out in accordance with my plans. Plan discussed with residents, nurses and caregiver(s), and questions addressed. I spent 35 minutes on the subsequent hospital care for this patient, that includes review of documentation, examination of the patient, discussion/[id number] time with patient/caregiver(s) and healthcare team, and coordination of care. Melissa Gomez DO documented in this encounter [facility] 03-21-2025 Evaluation + Plan note Associated Problem(s): Peritonsillar abscess Jocelyn is a 19 y.o. female with history of anxiety, bipolar disorder, asthma, PCOS, multiple strep throat diagnoses, and previous peritonsillar abscess here for sore throat, inability to tolerate PO, and CT finding of left peritonsillar abscess. She has been improving on IV antibiotics and feels that the abscess has drained some. She feels that pain has improved. She requires admission for close clinical monitoring given risk of worsening, and re-evaluation with ENT in the morning. Plan: - ENT consulted, they would like to re-evaluate patient in the morning - Regular diet - NPO at midnight - Tylenol Q6H PRN - Ceftriaxone Q24H - Clindamycin Q8H - Routine vitals [facility] 03-21-2025 Progress note Formatting of t his note is different from the original. 03/21/25 1539 Group Session Time Spent 60 minutes Session Occurred Expressive Therapy Center Type of Expressive Therapy Service Art Therapy Reason for Referral Not Specified Participation included Patient Observed Mental Status During Group Appropriate Behavior During Session Engaged;Quiet Interventions/Goals Addressed Stress Management;Support and Enhance Autonomy;Reduce Isolation;Self-Expression Pt was active and engaged in group. Pt chose to work with drawing pencils on paper to create several drawings of geometric shapes and a face. Pt was social and appropriate with staff. Pt seemed to benefit from time spent in group. Angi Oro, LPAT, NUTRITIONAL HEALTH COACH, CCTP Licensed Art Therapist and Licensed Professional Counselor [facility] [place] Office phone: [phone] [facility] 03-21-2025 Progress note Formatting of t his note is different from the original. NUTRITION SCREENING: Reviewed H&P, progress notes, nursing nutrition screen, problem list, growth, current nutrition support, nutritionally significant labs and medications. Jocelyn Barajas is a 19 y.o. female Problem List[1] Past Medical History: Diagnosis Date ADHD (attention deficit hyperactivity disorder) Asthma Current Diet: NPO PO Intake(%): n/a Allergies[2] Body mass index is 21.49 kg/m . at the 47 %ile (Z= -0.07) based on CDC (Girls, 2-20 Years) BMI-for-age based on BMI available on 03/20/2025. Medications: reviewed Lab Results: glucose within normal limits Recent Labs 03/20/25 1441 NA 140 K 3.8 CL 101 CO2 24.4 BUN 10 GLU 88 CALCIUM 9.5 CREATININE 0.69 Recent Labs 03/20/25 1441 WBC 16.3* RBC 4.53 HGB 13.2 HCT 38.6 MCV 85.2 MCH 29.1 MCHC 34.2* PLT 327 MPV 9.5* Nutrition Concerns: Patient has history of strep throat and was on steroids a week prior to admission. H&P states that PO has not been tolerated due to food getting stuck in throat. She has been having dysuria as well. Weight has been trending down since 2019. But BMI is still within normal limits, no recent weight loss more than 5% within the past year. Current BMI = 21.49. Follow up in two days to monitor PO and diet advancement. Plan: Hand Expansion Envelope Maker/Import/Export Clerk to follow-up in two days. Monitor for diet advancement, nutritional intake, tolerance, clinical condition, and weight changes. NPO >3days, Refer to dietitian for further evaluation and nutrition support. Demetra Small States March 21, 2025 [1] Patient Active Problem List Diagnosis Attention deficit disorder with hyperactivity(314.01) Asthma, mild persistent BMI (body mass index), pediatric, 95-99% for age Seasonal allergies Endometriosis Anxiety Cyst of ovary Peritonsillar abscess [2] Allergies Allergen Reactions Penicillins Rash [facility] 03-21-2025 Consult note Formatting of th is note is different from the original. Images from the original note were not included. Consult Note NAME: Jocelyn Barajas DATE OF SERVICE: 03/21/2025 PRIMARY CARE PROVIDER: Mitzy Fung MD ATTENDING PROVIDER: Melissa Gomez DO REASON FOR CONSULTATION: Jocelyn Barajas is being seen today for a consultive service at the request of Melissa Gomez DO for our opinion or medical advice regarding left peritonsillar abscess. HISTORY OF PRESENT ILLNESS: Jocelyn is a 19 y.o.female who presented to the ER for a 1 week history of a sore throat and concerns for a throat abscess. She was seeing [place] [facility] and was recommended to come to [facility] ER. A CT revealed: A left peritonsillar abscess measuring 2.0 x 2.2 x 3.5 cm seen. Another small abscess is seen in the tonsillar fossa anteriorly and medially measuring 1.7 x 0.3 x 1.5 cm. She was started on IV antibiotics last night. Her abscess started to spontaneously drain overnight and she is showing drastic improvement in her symptoms. She does have a significant history of recurrent tonsillitis, 5+ time per year. She has been admitted to an outside hospital in the past for concerns of a throat abscess. She does not typically snore at night. PAST MEDICAL HISTORY: Past Medical History: Diagnosis Date ADHD (attention deficit hyperactivity disorder) Asthma PAST SURGICAL HISTORY: Past Surgical History: Procedure Laterality Date DENTAL SURGERY DRUG/FOOD ALLERGIES: Allergies[1] IMMUNIZATIONS: Immunization History Administered Date(s) Administered DTaP 2005, 2005, 2005, 11/26/2006, 05/10/2010 DTaP/Hep B/IPV (PEDIARIX) 2005 HIB 2005, 2005, 2005, 06/08/2006 HPV 9-valent 04/29/2018, 04/16/2020 Hepatitis A (PED/ADOL) 04/29/2018, 04/16/2020 Hepatitis B Ped/Adol 2005, 2005, 2005 INFLUENZA SPLIT 0.5 ML 05/10/2010, 06/07/2010, 04/22/2012 IPV 2005, 2005, 2005, 05/10/2010 Influenza Vaccine 0.5 mL Quadrivalent (PF) 06/30/2017, 04/30/2021 Influenza Vaccine 0.5 mL Trivalent (PF) 09/07/2024 Influenza Vaccine Intranasal Quadrivalent 05/10/2014, 05/14/2015 MENINGOCOCCAL CONJUGATE ACWY VACCINE (MENACTRA) 04/28/2017, 04/26/2021 MMR 06/08/2006 MMRV (PROQUAD) 05/10/2010 PFIZER (purple cap) COVID-19, mRNA, LNP-S, 30mcg/0.3mL dose 04/30/2021, 05/22/2021 Pneumococcal Conjugate 2005, 02/20/2006, 06/08/2006, 11/26/2006 Polio, Unspecified Formulation 2005 Serogroup B Meningococcal Vaccine (BEXSERO) 04/26/2021, 03/10/2023 Tdap 04/28/2017 Varicella 11/26/2006 MEDICATIONS: Current Medications[2] FAMILY HISTORY: Family History Problem Relation Age of Onset High Blood Pressure Father No known problems Mother Allergies Brother seasonal allergies Diabetes Other PGM Diabetes Other Maternal side of family REVIEW OF SYSTEMS Eyes: Within normal limits Ears: Within normal limits Nose: Within normal limits Throat: Frequent sore throat, Difficulty swallowing, and Lump in neck Lungs: Within normal limits Heart: Within normal limits Gastrointestinal: Within normal limits Genitourinary: Within normal limits Nervous System: Within normal limits Endocrine: Within normal limits Musculoskeletal: Within normal limits Heme: Within normal limits OBJECTIVE: Vital Signs Temp: 36.6 C (97.9 F) Temp source: Temporal Heart Rate: 78 Heart Rate Source: Apical Resp: 16 Resp Source: Auscultation SpO2: 100 % BP: 104/62 MAP (mmHg): 75 BP Location: Left upper arm BP Method: Automatic (cuff) Patient Position: Supine Vent Settings/O2 Device Room Air: 21% Physical Findings: On physical examination, this is a well developed well nourished child in no apparent distress. Height is 165 cm, weight is 58.5 kg, temperature is 36.6 C (97.9 F). Cranium is normocephalic. Eyes show normal extraocular mobility without nystagmus, and the sclerae are clear. The auricles are normal in size, shape, and position bilaterally. The external nose is without deformity by visualization and palpation. Anterior rhinoscopy reveals a midline septum, inferior turbinates that are normal size and position, a patent nasal airway bilaterally, and no mucoid drainage bilaterally. There is no drainage from the nasopharynx. There is normal mandibular position with no trismus. Oral examination shows pink mucosa without lesions, tonsils that are 2+ bilaterally without exudate, and a palate that is intact and rises symmetrically. There is left peritonsillar fullness. Palpation of the neck reveals no masses or lymphadenopathy, a midline trachea, and thyroid gland without nodules or enlargement. Carotid pulses are normal. Major salivary glands are without masses or tenderness to palpation. Cranial nerves II-XII are grossly intact. Vocalizations are normal without stridor or stertor. There are no retractions and no wheezing. Cutaneous exam reveals no jaundice or cyanosis. Labs Results: Recent Labs 03/20/25 1441 RBC 4.53 WBC 16.3* HCT 38.6 HGB 13.2 MCH 29.1 MCHC 34.2* MCV 85.2 MPV 9.5* BASOPCT 0.2* EOSPCT 0.4* MONOPCT 6.6 NEUTOPHILPCT 80.8* NEUTROPHIL 13.16* Recent Labs 03/20/25 1441 CO2 24.4 CL 101 K 3.8 NA 140 Cultures last 72 hrs Procedure Component Value Ref Range Date/Time Urine culture [[id number]] Collected: 03/20/252216 Specimen: Urine from Clean Catch Updated: 03/20/252216 MARIAH-VALLEJO VIRUS ANTIBODY PROFILE [[id number]] (Abnormal) Collected: 03/20/25 144 Specimen: Blood from Vein Updated: 03/20/25 1854 EBV Antibody, IgM Negative Negative EBV Nuclear Antigen IgG Antibody Positive Negative EBV Antibody, IgG (VCA) Positive Negative Narrative: Presence of detectable EBNA IgG and VCA IgG; absence of detectable EBV IgM. These results suggest a past infection with Mariah-Vallejo virus. CT Soft Tissue Neck with IV contrast Result Date: 03/20/2025 CLINICAL HISTORY: Left-sided neck swelling, voice changes, history of peritonsillar abscess TECHNIQUE: CT of the neck was performed with sagittal and coronal reformats with intravenous contrast. 75 mL of IsoVue 300 intravenous contrast was given. DOSE LINEAR PRODUCT: 152 mGy-cm. COMPARISON: None. FINDINGS: TONSILS/ADENOIDS: The left palatine tonsil is enlarged. A left peritonsillar abscess measuring 2.0 x 2.2 x 3.5 cm seen. Another small abscess is seen in the tonsillar fossa anteriorly and medially measuring 1.7 x 0.3 x 1.5 cm. The oropharyngeal airway is displaced and deviated towards the right side. LYMPH NODES: There are a enlarged lymph nodes in the right posterior triangle and upper jugular chain. No necrosis or abscess formation is seen. SALIVARY GLANDS: Normal. VASCULATURE: Normal. PARANASAL SINUSES: Normal. ORBITS: Imaged portions appear normal. THYROID GLAND: Normal. LUNG APICES: Normal. CERVICAL SPINE: Normal. BRAIN: Imaged portions appear normal. IMPRESSION: 1. Left peritonsillar abscess measuring 3.5 x 2.2 x 2.0 cm. Another small abscess in the tonsillar fossa anteromedially. 2. There is narrowing and deviation of the oropharyngeal airway to the right. 3. Left cervical adenopathy. This report has been created using voice recognition software ASSESSMENT: Jocelyn Barajas is a 19 year old female with recurrent tonsillitis and acutely a left peritonsillar abscess. RECOMMENDATIONS: She is showing great improvement with IV antibiotics and spontaneous drainage of the abscess. Recommend 24 hours of IV antibiotics. NPO at midnight for ENT reevaluation in the morning. She will likely benefit from an elective adenotonsillectomy in the future as an outpatient. Recommendation discussed with requesting provider. Plan of care discussed with Dr. Suresh. Marcela Lowe, ALEX-CELINE 03/21/25 [1] Allergies Allergen Reactions Penicillins Rash [2] Current Facility-Administered Medications Medication Dose Route Frequency Provider Last Rate Last Admin acetaminophen (TYLENOL) 160 MG/5ML suspension 640 mg 15 mg/kg/DOSE Oral Q6H PRN Gregoria Robbins W, DO NaCl 0.9% PosiFlush 2 mL 2 mL Intravenous Q8H India Das MD 0 mL/hr at 03/20/25 2105 2 mL at 03/20/25 2105 NaCl 0.9% PosiFlush 2 mL 2 mL Intravenous PRN India Das MD 0 mL/hr at 03/21/25 0550 2 mL at 03/21/25 0550 NaCl 0.9% PosiFlush 5 mL 5 mL Intravenous PRN India Das MD NaCl 0.9 % IV Flush bag 30 mL 30 mL Intravenous PRN India Das MD sterile water injection 10 mL 10 mL Intravenous JOAQUINN India Das MD NaCl 0.9 % 10 mL 10 mL Intravenous PRN India Das MD cefTRIAXone in D5W (ROCEPHIN) IV 2,000 mg 2,000 mg Intravenous Q24H EXACT Gregoria Robbins DO Stopped at 03/20/25 2242 Clindamycin in D5W (CLEOCIN) IV 600 mg 600 mg Intravenous Q8H EXACT Gregoria Robbins DO Stopped at 03/21/25 0528 [facility] Work Phone: 03-21-2025 Progress note Formatting of t his note might be different from the original. Multidisciplinary Team Meeting Assessment/Plan of Care Reviewed Are there Case Management needs identified at this time? No case management consult at this time. [facility] will monitor for home care needs (equipment / services) Jocelyn is saline locked, on IV antibiotics Representatives: Case Management: Maura Pinedo RN Social Work: Sadiq SEXTON Child Life: Beatriz Manzano CCLS Nursing: Flor Fung RN clinical coordinator [facility]: Na Null RN, Crys Jiménez RN Draw Furnace Tender: Sabine Perez [facility] 03-21-2025 Plan of care note Problem: Pain - Acute Goal: Reduced pain sensation Outcome: Ongoing [facility] 03-20-2025 Evaluation + Plan note Associated Problem(s): Peritonsillar abscess Jocelyn is a 19 y.o. female with history of anxiety, bipolar disorder, asthma, PCOS, multiple strep throat diagnoses, and previous peritonsillar abscess here for sore throat, inability to tolerate PO, and CT finding of peritonsillar abscess. History, physical, and imaging consistent with peritonsilar abscess. She has shown some improvement with decadron. Jocelyn requires admission for IV antibiotics and possible drainage of abscess pending ENT evaluation. Plan: - ENT consult, appreciate recommendations - Start IV ceftriaxone and clindamycin as outside sensitivity showed ceftriaxone would be effective - Clear liquid diet, NPO at midnight - Routine vitals - UA and culture - Tylenol PRN, motrin PRN for breakthrough [facility] 03-20-2025 Progress note Formatting of t his note is different from the original. ATTENTION - Attention: This note is written by a student. Documentation below this line by a student or provider is for educational purposes only. The only elements of the student s note that may be incorporated into providers notes are Past Medical History, Family History and Social History, if appropriately reviewed. H&P Note Informant: Chief complaint: I have a throat abscess on the left side HPI: Jocelyn Barajas is a 19 year female with PMH of Bipolar, ADHD, Asthma, endometriosis, PCOS, group B strep, EBV, and recurrent strep infections who is here for evaluation of peritonsillar swelling and sore throat. COW BUYER: she was seen 1 week ago by an ENT in [place] to assess and treat her abscess. They started her on Cefdinir because of her allergies to penicillin and amoxicillin. The swelling and pain got worse after a few days, and she went to the ED on ThursdayMarch 17, and they switched her to clindamycin but the pain and swelling continued to worsen. At home she called her nurse, and they recommended that she should be seen at [facility] ED for further workup. In the ED they decided to to switch her to linezolid, flagyl, and Decadron (flagyl was ordered, but not given yet). Labwork includes CBC with WBC 16, CRP 7.3, monospot negative, EBV titers came back IgM -, IgG, BMP overall normal. CT neck with left peritonsillar abscess measuring 3.5 x 2.2 x 2.0 cm. An additional small abscess in the tonsillar fossa anteromedially. Jocelyn was admitted to the hospitalist team. On floor: She she reported to have yellow colored spit consistent with abscess drainage, and this help to reduce her swelling and trismus. She also reported to have urine with dark brown color, and painful urination. Family Hx: Mom had tonsils removed at young age ROS: Constitutional: No fever chills, but has spit up yellow pus most likely from abscess. : Brown colored urine Psych: has had halitosis, and difficulty swallowing. PE: VS: Temp - 36.6; pulse: 84; RR: 20; BP: 122/81. Constitutional: No acute distress, patient laying comfortably laying in bed. Ears: Clear, no tympanic swelling, redness, or discoloration Mouth/throat: Left peritonsillar swelling that is red and swollen, uvula is deviated to the right. Respiratory: CTA, no crackles, rales, or wheezes. Cardiac: RRR, no murmurs, rubs, or gallops. GI: Pain in RLQ that when palpated, the patient says it is consistent with PCOS and endometriosis Skin: Normal appearing, consistent with age, no cyanosis. Labs and Imaging: Group B strep culture + sensitive to ceftriaxone (collected at outside ENT office) Assessment: Jocelyn Barajas is a 19 year female with PMH of Bipolar, ADHD, Asthma, endometriosis, PCOS, group B strep, EBV, and recurrent strep infections who is here for evaluation of peritonsillar swelling and sore throat. Her current symptoms, PE findings, and lab cultures are consistent with peritonsillar abscess, and will be treated with antibiotics and and iv fluids. Diagnostic and Therapeutic Plan Plan: - ENT consult, appreciate recommendations - switch to IV Ceftriaxone, and clindamycin -Tylenol PRN for pain - mIVF D5 NS with 20 KCl - NPO at midnight - Routine vitals - UA Dario Hurley, MEDICAL STUDENT YR3 5:48 PM [facility] 03-20-2025 History and physical note [facility] HISTORY & PHYSICAL History of Present Illness Jocelyn is a 19 y.o. female with history of anxiety, bipolar disorder, asthma, PCOS, multiple strep throat diagnoses, and previous peritonsillar abscess here for sore throat, inability to tolerate PO, and CT finding of peritonsillar abscess. One week prior to admission, Jocelyn tested positive for strep at her ENT appointment and was started on a course of cefdinir (due to amoxicillin allergy) and steroids (Jocelyn thinks it is methylprednisolone). Chart review shows that a throat culture grew group B strep that is sensitive to ceftriaxone, resistant to clindamycin. Five days after being diagnosed (3 days ago), her pain acutely worsened and her throat swelling worsened. She went to the ED where she was given IV antibiotics and her antibiotics were changed to clindamycin and she was told to continue the steroid. Chart review shows she also received decadron at that visit. She has been taking the clindamycin at home, but has worsening swelling and sore throat since Thursday and presented to [facility] ED. Of note, she complains of frequently having food stuck in her tonsils and having to gargle salt water. She has also had dysuria for the past several days. In the ED, she had significant trismus, muffled voice, and was not able to open her mouth fully. She was tolerating her own secretions, but not able to tolerate PO intake. She was noted to have significant swelling to her left mandible with overlying tenderness. Labwork includes CBC with WBC 16 (80% neutrophils), CRP 7.3, monospot negative, BMP overall normal. EBV titers positive IgG, negative IgM. CT neck with left peritonsillar abscess measuring 3.5 x 2.2 x 2.0 cm. An additional small abscess in the tonsillar fossa anteromedially. She was given linezolid and flagyl due to failure of cefdinir and clindamycin outpatient. ENT recommended decadron and consult once she is admitted. Jocelny was admitted to the hospitalist team. On the floor, she reports she feels the abscess has popped since she was initially seen and there is not as much pressure and pain. Patient Information Past Medical History: Diagnosis Date ADHD (attention deficit hyperactivity disorder) Asthma Past Surgical History: Procedure Laterality Date DENTAL SURGERY Medications Prior to Admission Medication Sig Dispense Refill Last Dose/Taking Beclomethasone Diprop (QVAR REDIHALER) 40 MCG/ACT AERB Redihaler Inhale 2 Puffs into the lungs 2 times daily 1 Each 11 albuterol 108 (90 Base) MCG/ACT inhaler Inhale 2 Puffs into the lungs every 4 hours as needed for Wheezing or Shortness of Breath 18 g 2 albuterol (VENTOLIN) (2.5 MG/3ML) 0.083% nebulizer solution Use 3 mL (2.5 mg) by nebulization every 4 hours as needed for Wheezing or Shortness of Breath (Cough) 100 Each 1 Spacer/Aero-Holding Chambers (OPTICHAMBER ALICIA) MISC DEVICE Use with inhaled medication as instructed. 1 Each 0 Allergies[1] HEEADSSS Assessment Home: Feels safe at home, has an adult they can turn to for help. Eating: Eats regular meals including fruits and vegetables Drugs: Does not use tobacco, alcohol, or drugs. and has vaped 1 time Safety: Feels safe at school and home, and with their family and friends. Sex: has been sexually active with one partner 2 years ago. Was tested by denture finisher for STIs and was negative per patient. Has not been sexually active since then Suicidality/Mental Health: Has ways to cope with stress, has history of anxiety, but does not want to take medication Confidentiality discussed with teen: yes Confidentiality discussed with Mother and Patientyes Discussed that the following can be discussed with caregiver(s): everything; and the following cannot: none. Objective 24-hour Vital Signs: BP Min: 112/65 Max: 127/64 Temp Av.6 C (97.9 F) Min: 36.4 C (97.5 F) Max: 36.9 C (98.4 F) Pulse Av.4 Min: 72 Max: 97 Resp Av Min: 16 Max: 20 SpO2 Av % Min: 100 % Max: 100 % Height Av cm Min: 165 cm Max: 165 cm Weight Av.2 kg Min: 57.8 kg Max: 58.5 kg Oxygen Therapy: None (Room air) General: The patient is well-kept and well-nourished. In no acute distress. Head: Normocephalic and atraumatic. Ears: External auditory canals are patent. Tympanic membranes are pearly alvarado bilaterally without bulging. Eyes: normal sclera and conjunctiva without discharge; Nose: no nasal discharge; Oropharynx: Moist mucous membranes. Posterior oropharynx with erythema and swelling along left side, with uvula deviation to the right Neck: Cervical lymphadenopathy present. Neck is supple and non-tender Cardiac: Normal rate for age and regular rhythm with normal S1 and S2. No M/R/G. Pulses symmetrical. Capillary refill <2 seconds. Respiratory: Respirations are easy and non-labored. Good aeration throughout lung paul. No rales, rhonchi, or wheezes. Abdomen: Abdomen soft, mild tenderness on right with palpation, and non-distended. Bowel sounds present in all four quadrants. Extremities: Patient has full range of motion of all extremities. No deformities. Integument: Skin is warm and dry. Nailbeds are pink. No rashes noted. Neurologic: The patient is alert and oriented to person, place and time. Responds to questions appropriately. Pupils are equally round and reactive to light, extraocular movements are intact LDA: Patient Lines/Drains/Airways Status Active LDAs Name Placement date Placement time Site Days Peripheral IV 03/20/25 20 Left Antecubital 03/20/25 1445 -- less than 1 Recent Results (from the past 24 hours) POCT urine HCG Collection Time: 03/20/25 2:39 PM Result Value Ref Range hCG Urine POCT Negative Negative Control Line *Present Clear Background *Present Lot # [id number] Basic metabolic panel Collection Time: 03/20/25 2:41 PM Result Value Ref Range Sodium 140 133 - 145 mmol/L POTASSIUM 3.8 3.3 - 5.1 mmol/L CHLORIDE 101 96 - 108 mmol/L CARBON DIOXIDE 24.4 22.0 - 29.0 mmol/L GLUCOSE 88 70 - 99 mg/dL Creatinine 0.69 0.50 - 1.00 mg/dL CALCIUM 9.5 7.6 - 11.0 mg/dL eGFR >90 >=60 mL/min/1.73 m2 BUN 10 4 - 19 mg/dL C-reactive protein Collection Time: 03/20/25 2:41 PM Result Value Ref Range CRP 7.3 (H) <=1.0 MG/DL Complete Blood Count with Differential Collection Time: 03/20/25 2:41 PM Result Value Ref Range WBC 16.3 (H) 4.9 - 10.0 10E3/ L Nucleated RBC Percent 0.0 0.0 - 0.0 % RBC 4.53 4.03 - 4.91 10E6/ L Hemoglobin 13.2 11.4 - 14.8 g/dL Hematocrit 38.6 35.5 - 44.6 % MCV 85.2 80.0 - 100.0 fL MCH 29.1 25.7 - 31.2 pg MCHC 34.2 (H) 31.3 - 34.0 % RDW CV 12.2 11.9 - 14.8 % Platelets 327 150 - 400 10E3/ L MPV 9.5 (L) 9.6 - 11.9 fL % Immature Granulocyte 0.4 0.2 - 0.5 % Neutrophil # 13.16 (H) 2.43 - 6.42 10E3/ L Lymphocyte # 1.90 1.51 - 2.99 10E3/ L Monocyte # 1.08 (H) 0.36 - 0.77 10E3/ L Eosinophil # 0.07 0.04 - 0.27 10E3/ L Basophil # 0.04 0.02 - 0.06 10E3/ L % Neutrophils 80.8 (H) 46.0 - 68.6 % % Lymphocytes 11.6 (L) 21.8 - 42.1 % % Monocytes 6.6 5.6 - 10.2 % % Eosinophil 0.4 (L) 0.6 - 3.8 % % Basophils 0.2 (L) 0.3 - 0.9 % Mononucleosis screen Collection Time: 03/20/25 2:41 PM Result Value Ref Range Monospot (Heterophile Antibodies) Negative Negative MARIAH-VALLEJO VIRUS ANTIBODY PROFILE Collection Time: 03/20/25 2:41 PM Specimen: Vein; Blood Result Value Ref Range EBV Antibody, IgM Negative Negative EBV Nuclear Antigen IgG Antibody Positive (A) Negative EBV Antibody, IgG (VCA) Positive (A) Negative Urinalysis, Complete (Chemistry & Micro) Collection Time: 03/20/25 9:32 PM Result Value Ref Range Color Light Yellow Character Clear Specific [place] 1.046 (H) Reference Range: 1.005-1.030 Leukocyte Esterase Negative Negative Dee/uL Nitrite Negative Negative pH 7.0 5.0 - 8.0 Hemoglobin Negative Negative Protein Negative Neg.-Trace Glucose Normal Normal KETONES Negative Negative Urobilinogen Normal Normal mg/dL Bilirubin Negative Negative Volume 12 mL WBC 0 <=2 /HPF RBC 0 <=2 /HPF Squamous Epithelial Cells 4 (H) <=2 /HPF Transitional Epithelial Cells 0 <=2 /HPF Renal Epithelial Cells 0 <=2 /HPF Assessment & Plan Peritonsillar abscess Jocelyn is a 19 y.o. female with history of anxiety, bipolar disorder, asthma, PCOS, multiple strep throat diagnoses, and previous peritonsillar abscess here for sore throat, inability to tolerate PO, and CT finding of peritonsillar abscess. History, physical, and imaging consistent with peritonsilar abscess. She has shown some improvement with decadron. Jocelyn requires admission for IV antibiotics and possible drainage of abscess pending ENT evaluation. Plan: - ENT consult, appreciate recommendations - Start IV ceftriaxone and clindamycin as outside sensitivity showed ceftriaxone would be effective - Clear liquid diet, NPO at midnight - Routine vitals - UA and culture - Tylenol PRN, motrin PRN for breakthrough Gregoria Robbins DO Pediatric Resident PGY-3 03/20/2025 10:32 PM Hospitalist Attending I reviewed the history and performed a pertinent physical examination at 1999. I agree with the findings described in the note above except for changes as noted. Management of the patient has been carried out in accordance with my plans. Plan discussed with caregiver(s) and questions addressed. TIME SPENT/LOS: Inpt: I personally spent a total of 60 minutes on the unit in direct management/discussion/coordinatio n of patient's care. Time was spent in counseling and/or coordination of care including: chart review, result review and interpretation, counseling patient/family regarding diagnosis, prognosis, and treatment plan (including risks and benefits), and discussing case with care team members, including referring providers. Chart review and preparation to see patient Obtain and review history Performing Physical exam Ordering medications, procedures, testing Result review and interpretation Documenting in patient chart Counseling/educating patient/family regarding diagnosis, prognosis, and treatment plan (including risks and benefits) Discussing case with care team members, including nursing, therapists, hospitalists Discussing with consultants 55 to 74 minutes Vicente Lopez MD [1] Allergies Allergen Reactions Penicillins Rash [facility] 03-20-2025 History and physical note [facility] HISTORY & PHYSICAL History of Present Illness Jocelyn is a 19 y.o. female with history of anxiety, bipolar disorder, asthma, PCOS, multiple strep throat diagnoses, and previous peritonsillar abscess here for sore throat, inability to tolerate PO, and CT finding of peritonsillar abscess. One week prior to admission, Jocelyn tested positive for strep at her ENT appointment and was started on a course of cefdinir (due to amoxicillin allergy) and steroids (Jocelyn thinks it is methylprednisolone). Chart review shows that a throat culture grew group B strep that is sensitive to ceftriaxone, resistant to clindamycin. Five days after being diagnosed (3 days ago), her pain acutely worsened and her throat swelling worsened. She went to the ED where she was given IV antibiotics and her antibiotics were changed to clindamycin and she was told to continue the steroid. Chart review shows she also received decadron at that visit. She has been taking the clindamycin at home, but has worsening swelling and sore throat since Thursday and presented to [facility] ED. Of note, she complains of frequently having food stuck in her tonsils and having to gargle salt water. She has also had dysuria for the past several days. In the ED, she had significant trismus, muffled voice, and was not able to open her mouth fully. She was tolerating her own secretions, but not able to tolerate PO intake. She was noted to have significant swelling to her left mandible with overlying tenderness. Labwork includes CBC with WBC 16 (80% neutrophils), CRP 7.3, monospot negative, BMP overall normal. EBV titers positive IgG, negative IgM. CT neck with left peritonsillar abscess measuring 3.5 x 2.2 x 2.0 cm. An additional small abscess in the tonsillar fossa anteromedially. She was given linezolid and flagyl due to failure of cefdinir and clindamycin outpatient. ENT recommended decadron and consult once she is admitted. Jocelyn was admitted to the hospitalist team. On the floor, she reports she feels the abscess has popped since she was initially seen and there is not as much pressure and pain. Patient Information Past Medical History: Diagnosis Date ADHD (attention deficit hyperactivity disorder) Asthma Past Surgical History: Procedure Laterality Date DENTAL SURGERY Medications Prior to Admission Medication Sig Dispense Refill Last Dose/Taking Beclomethasone Diprop (QVAR REDIHALER) 40 MCG/ACT AERB Redihaler Inhale 2 Puffs into the lungs 2 times daily 1 Each 11 albuterol 108 (90 Base) MCG/ACT inhaler Inhale 2 Puffs into the lungs every 4 hours as needed for Wheezing or Shortness of Breath 18 g 2 albuterol (VENTOLIN) (2.5 MG/3ML) 0.083% nebulizer solution Use 3 mL (2.5 mg) by nebulization every 4 hours as needed for Wheezing or Shortness of Breath (Cough) 100 Each 1 Spacer/Aero-Holding Chambers (OPTICHAMBER ALICIA) [facility] Use with inhaled medication as instructed. 1 Each 0 Allergies[1] HEEADSSS Assessment Home: Feels safe at home, has an adult they can turn to for help. Eating: Eats regular meals including fruits and vegetables Drugs: Does not use tobacco, alcohol, or drugs. and has vaped 1 time Safety: Feels safe at school and home, and with their family and friends. Sex: has been sexually active with one partner 2 years ago. Was tested by denture finisher for STIs and was negative per patient. Has not been sexually active since then Suicidality/Mental Health: Has ways to cope with stress, has history of anxiety, but does not want to take medication Confidentiality discussed with teen: yes Confidentiality discussed with Mother and Patientyes Discussed that the following can be discussed with caregiver(s): everything; and the following cannot: none. Objective 24-hour Vital Signs: BP Min: 112/65 Max: 127/64 Temp Av.6 C (97.9 F) Min: 36.4 C (97.5 F) Max: 36.9 C (98.4 F) Pulse Av.4 Min: 72 Max: 97 Resp Av Min: 16 Max: 20 SpO2 Av % Min: 100 % Max: 100 % Height Av cm Min: 165 cm Max: 165 cm Weight Av.2 kg Min: 57.8 kg Max: 58.5 kg Oxygen Therapy: None (Room air) General: The patient is well-kept and well-nourished. In no acute distress. Head: Normocephalic and atraumatic. Ears: External auditory canals are patent. Tympanic membranes are pearly alvarado bilaterally without bulging. Eyes: normal sclera and conjunctiva without discharge; Nose: no nasal discharge; Oropharynx: Moist mucous membranes. Posterior oropharynx with erythema and swelling along left side, with uvula deviation to the right Neck: Cervical lymphadenopathy present. Neck is supple and non-tender Cardiac: Normal rate for age and regular rhythm with normal S1 and S2. No M/R/G. Pulses symmetrical. Capillary refill <2 seconds. Respiratory: Respirations are easy and non-labored. Good aeration throughout lung paul. No rales, rhonchi, or wheezes. Abdomen: Abdomen soft, mild tenderness on right with palpation, and non-distended. Bowel sounds present in all four quadrants. Extremities: Patient has full range of motion of all extremities. No deformities. Integument: Skin is warm and dry. Nailbeds are pink. No rashes noted. Neurologic: The patient is alert and oriented to person, place and time. Responds to questions appropriately. Pupils are equally round and reactive to light, extraocular movements are intact LDA: Patient Lines/Drains/Airways Status Active LDAs Name Placement date Placement time Site Days Peripheral IV 03/20/25 20 Left Antecubital 03/20/25 1445 -- less than 1 Recent Results (from the past 24 hours) POCT urine HCG Collection Time: 03/20/25 2:39 PM Result Value Ref Range hCG Urine POCT Negative Negative Control Line *Present Clear Background *Present Lot # [id number] Basic metabolic panel Collection Time: 03/20/25 2:41 PM Result Value Ref Range Sodium 140 133 - 145 mmol/L POTASSIUM 3.8 3.3 - 5.1 mmol/L CHLORIDE 101 96 - 108 mmol/L CARBON DIOXIDE 24.4 22.0 - 29.0 mmol/L GLUCOSE 88 70 - 99 mg/dL Creatinine 0.69 0.50 - 1.00 mg/dL CALCIUM 9.5 7.6 - 11.0 mg/dL eGFR >90 >=60 mL/min/1.73 m2 BUN 10 4 - 19 mg/dL C-reactive protein Collection Time: 03/20/25 2:41 PM Result Value Ref Range CRP 7.3 (H) <=1.0 MG/DL Complete Blood Count with Differential Collection Time: 03/20/25 2:41 PM Result Value Ref Range WBC 16.3 (H) 4.9 - 10.0 10E3/ L Nucleated RBC Percent 0.0 0.0 - 0.0 % RBC 4.53 4.03 - 4.91 10E6/ L Hemoglobin 13.2 11.4 - 14.8 g/dL Hematocrit 38.6 35.5 - 44.6 % MCV 85.2 80.0 - 100.0 fL MCH 29.1 25.7 - 31.2 pg MCHC 34.2 (H) 31.3 - 34.0 % RDW CV 12.2 11.9 - 14.8 % Platelets 327 150 - 400 10E3/ L MPV 9.5 (L) 9.6 - 11.9 fL % Immature Granulocyte 0.4 0.2 - 0.5 % Neutrophil # 13.16 (H) 2.43 - 6.42 10E3/ L Lymphocyte # 1.90 1.51 - 2.99 10E3/ L Monocyte # 1.08 (H) 0.36 - 0.77 10E3/ L Eosinophil # 0.07 0.04 - 0.27 10E3/ L Basophil # 0.04 0.02 - 0.06 10E3/ L % Neutrophils 80.8 (H) 46.0 - 68.6 % % Lymphocytes 11.6 (L) 21.8 - 42.1 % % Monocytes 6.6 5.6 - 10.2 % % Eosinophil 0.4 (L) 0.6 - 3.8 % % Basophils 0.2 (L) 0.3 - 0.9 % Mononucleosis screen Collection Time: 03/20/25 2:41 PM Result Value Ref Range Monospot (Heterophile Antibodies) Negative Negative MARIAH-VALLEJO VIRUS ANTIBODY PROFILE Collection Time: 03/20/25 2:41 PM Specimen: Vein; Blood Result Value Ref Range EBV Antibody, IgM Negative Negative EBV Nuclear Antigen IgG Antibody Positive (A) Negative EBV Antibody, IgG (VCA) Positive (A) Negative Urinalysis, Complete (Chemistry & Micro) Collection Time: 03/20/25 9:32 PM Result Value Ref Range Color Light Yellow Character Clear Specific [place] 1.046 (H) Reference Range: 1.005-1.030 Leukocyte Esterase Negative Negative Dee/uL Nitrite Negative Negative pH 7.0 5.0 - 8.0 Hemoglobin Negative Negative Protein Negative Neg.-Trace Glucose Normal Normal KETONES Negative Negative Urobilinogen Normal Normal mg/dL Bilirubin Negative Negative Volume 12 mL WBC 0 <=2 /HPF RBC 0 <=2 /HPF Squamous Epithelial Cells 4 (H) <=2 /HPF Transitional Epithelial Cells 0 <=2 /HPF Renal Epithelial Cells 0 <=2 /HPF Assessment & Plan Peritonsillar abscess Jocelyn is a 19 y.o. female with history of anxiety, bipolar disorder, asthma, PCOS, multiple strep throat diagnoses, and previous peritonsillar abscess here for sore throat, inability to tolerate PO, and CT finding of peritonsillar abscess. History, physical, and imaging consistent with peritonsilar abscess. She has shown some improvement with decadron. Jocelyn requires admission for IV antibiotics and possible drainage of abscess pending ENT evaluation. Plan: - ENT consult, appreciate recommendations - Start IV ceftriaxone and clindamycin as outside sensitivity showed ceftriaxone would be effective - Clear liquid diet, NPO at midnight - Routine vitals - UA and culture - Tylenol PRN, motrin PRN for breakthrough Gregoria Robbins DO Pediatric Resident PGY-3 03/20/2025 10:32 PM Hospitalist Attending I reviewed the history and performed a pertinent physical examination at 1999. I agree with the findings described in the note above except for changes as noted. Management of the patient has been carried out in accordance with my plans. Plan discussed with caregiver(s) and questions addressed. TIME SPENT/LOS: Inpt: I personally spent a total of 60 minutes on the unit in direct management/discussion/coordinatio n of patient's care. Time was spent in counseling and/or coordination of care including: chart review, result review and interpretation, counseling patient/family regarding diagnosis, prognosis, and treatment plan (including risks and benefits), and discussing case with care team members, including referring providers. Chart review and preparation to see patient Obtain and review history Performing Physical exam Ordering medications, procedures, testing Result review and interpretation Documenting in patient chart Counseling/educating patient/family regarding diagnosis, prognosis, and treatment plan (including risks and benefits) Discussing case with care team members, including nursing, therapists, hospitalists Discussing with consultants 55 to 74 minutes Vicente Lopez MD [1] Allergies Allergen Reactions Penicillins Rash documented in this encounter [facility] 03-20-2025 Emergency department Note This RN to CT with patient and back to room without incident. Patient reports improved pain, remains alert and awake, resp even and non-labored. Patient and mom deny further needs at this time call light within reach. [facility] 03-20-2025 Emergency department Note This RN to CT with patient and back to room without incident. Patient reports improved pain, remains alert and awake, resp even and non-labored. Patient and mom deny further needs at this time call light within reach. Jocelyn Barajas : 2005 Chief Complaint Patient presents with Sore Throat (Pharyngitis) Allergies[1] DOS: 03/20/2025 19-year-old female presenting to the emergency department for evaluation of throat swelling. Patient states that last week she started developing a sore throat and tonsillar swelling. She states she has a longstanding history of similar symptoms sometimes in the setting of strep infections sometimes 1 strep negative. She is followed by ENT internal follow-up last Thursday she was positive for strep. Consequently she was started on a course of cefdinir given her penicillin allergy. She reports that she experienced an transient improvement with this but by Thursday 3:30 AM she awoke with worsening pain and throat swelling. Upon again contacting her ENT she was recommended to go to the emergency department. At the time she was given IV antibiotics and on discharge her regiment was changed to clindamycin. No imaging was performed at that time. She presents today as she is now experiencing more left-sided neck swelling in addition to new right-sided neck swelling as well as changes in her voice and trismus. She has significant difficulty tolerating p.o. intake but has continued to tolerate her secretions. She denies fevers. She is not taking anything at home for pain. She reports a past history of mononucleosis and several prior rounds of strep pharyngitis. Mom states that in April of last year she had similar worsening of her swelling and ended up being admitted to the hospital for IV antibiotics in the setting of a peritonsillar abscess. The history is provided by the patient and a parent. History of Present Illness Review of Systems Review of Systems Constitutional: Positive for appetite change (decreased). Negative for chills and fever. HENT: Positive for sore throat, tinnitus, trouble swallowing and voice change. Negative for congestion and rhinorrhea. Respiratory: Negative for cough and wheezing. Gastrointestinal: Negative for abdominal pain, diarrhea, nausea and vomiting. Genitourinary: Negative for decreased urine volume, dysuria and hematuria. Musculoskeletal: Negative for back pain. Skin: Negative for rash and wound. Neurological: Negative for syncope and headaches. Patient History Past Medical History: Diagnosis Date ADHD (attention deficit hyperactivity disorder) Asthma Past Surgical History: Procedure Laterality Date DENTAL SURGERY Pediatric History Patient Parents Flor Jiménez (Mother) Fernando Barajas (Father) Other Topics Concern Interpersonal relationships Not Asked Poor school performance Not Asked Reading difficulties Not Asked Speech difficulties Not Asked Writing difficulties Not Asked Toilet training problems Not Asked Inadequate sleep Not Asked Excessive TV viewing Not Asked Excessive video game use Not Asked Inadequate exercise Not Asked Sports related Not Asked Poor diet Not Asked Second-hand smoke exposure Not Asked Alcohol/drug concerns Not Asked Violence concerns Not Asked Poor oral hygiene Not Asked Bike safety Not Asked Vehicle safety Not Asked Social History Narrative Not on file ED Triage Vitals Date and Time Temp Temp src Pulse Resp BP SpO2 User 03/20/25 1355 36.5 C (97.7 F) Temporal 97 -- 127/64 100 % JRD Physical Exam Vitals and nursing note reviewed. Constitutional: Appearance: She is well-developed. Comments: Patient appears slightly uncomfortable. She speaks with somewhat muffled voice. She is tolerating her own secretions. HENT: Head: Normocephalic and atraumatic. Comments: Patient with significant trismus and inability to open mouth to visualize tonsils. No appreciable lesions. No tongue or lip swelling. Significant swelling under left mandible with overlying tenderness. Similar but less severe swelling in right submandibular space. Mouth/Throat: Mouth: Mucous membranes are moist. Eyes: Conjunctiva/sclera: Conjunctivae normal. Pupils: Pupils are equal, round, and reactive to light. Neck: Musculoskeletal: Normal range of motion. Cardiovascular: Rate and Rhythm: Normal rate and regular rhythm. Abdominal: General: Abdomen is flat. Palpations: Abdomen is soft. Tenderness: There is no abdominal tenderness. Musculoskeletal: Cervical back: Normal range of motion. No rigidity. Skin: General: Skin is warm and dry. Findings: No rash. Neurological: Mental Status: She is alert. Psychiatric: Mood and Affect: Mood normal. Behavior: Behavior normal. Physical Exam Procedures Encounter Documentation/Handoff: Labs/Radiology: Recent Results (from the past 24 hours) POCT urine HCG Collection Time: 03/20/25 2:39 PM Result Value Ref Range hCG Urine POCT Negative Negative Control Line *Present Clear Background *Present Lot # [id number] Basic metabolic panel Collection Time: 03/20/25 2:41 PM Result Value Ref Range Sodium 140 133 - 145 mmol/L POTASSIUM 3.8 3.3 - 5.1 mmol/L CHLORIDE 101 96 - 108 mmol/L CARBON DIOXIDE 24.4 22.0 - 29.0 mmol/L GLUCOSE 88 70 - 99 mg/dL Creatinine 0.69 0.50 - 1.00 mg/dL CALCIUM 9.5 7.6 - 11.0 mg/dL eGFR >90 >=60 mL/min/1.73 m2 BUN 10 4 - 19 mg/dL C-reactive protein Collection Time: 03/20/25 2:41 PM Result Value Ref Range CRP 7.3 (H) <=1.0 MG/DL Complete Blood Count with Differential Collection Time: 03/20/25 2:41 PM Result Value Ref Range WBC 16.3 (H) 4.9 - 10.0 10E3/ L Nucleated RBC Percent 0.0 0.0 - 0.0 % RBC 4.53 4.03 - 4.91 10E6/ L Hemoglobin 13.2 11.4 - 14.8 g/dL Hematocrit 38.6 35.5 - 44.6 % MCV 85.2 80.0 - 100.0 fL MCH 29.1 25.7 - 31.2 pg MCHC 34.2 (H) 31.3 - 34.0 % RDW CV 12.2 11.9 - 14.8 % Platelets 327 150 - 400 10E3/ L MPV 9.5 (L) 9.6 - 11.9 fL % Immature Granulocyte 0.4 0.2 - 0.5 % Neutrophil # 13.16 (H) 2.43 - 6.42 10E3/ L Lymphocyte # 1.90 1.51 - 2.99 10E3/ L Monocyte # 1.08 (H) 0.36 - 0.77 10E3/ L Eosinophil # 0.07 0.04 - 0.27 10E3/ L Basophil # 0.04 0.02 - 0.06 10E3/ L % Neutrophils 80.8 (H) 46.0 - 68.6 % % Lymphocytes 11.6 (L) 21.8 - 42.1 % % Monocytes 6.6 5.6 - 10.2 % % Eosinophil 0.4 (L) 0.6 - 3.8 % % Basophils 0.2 (L) 0.3 - 0.9 % Mononucleosis screen Collection Time: 03/20/25 2:41 PM Result Value Ref Range Monospot (Heterophile Antibodies) Negative Negative CT Soft Tissue Neck with IV contrast Final Result IMPRESSION: 1. Left peritonsillar abscess measuring 3.5 x 2.2 x 2.0 cm. Another small abscess in the tonsillar fossa anteromedially. 2. There is narrowing and deviation of the oropharyngeal airway to the right. 3. Left cervical adenopathy. This report has been created using voice recognition software Consults: No orders of the defined types were placed in this encounter. Treatment/Reassessment: see below Medical Decision Making Problems Addressed: Hoarseness or changing voice: complicated acute illness or injury Neck swelling: complicated acute illness or injury Peritonsillar abscess: complicated acute illness or injury Tonsillar abscess: complicated acute illness or injury Trismus: complicated acute illness or injury Amount and/or Complexity of Data Reviewed Labs: ordered. Decision-making details documented in ED Course. Radiology: ordered. Decision-making details documented in ED Course. Risk Prescription drug management. Decision regarding hospitalization. MDM 19 y.o. female presenting to the emergency department for evaluation of throat swelling. Differential Diagnosis Given patient's persistence of symptoms, with now significant left-sided facial swelling and voice changes, concern for peritonsillar abscess. Patient has full preserved range of motion and consequently less concern for retropharyngeal abscess. Additional etiologies considered include mono versus resistant strep. Plan CT head neck 1 L IV fluid bolus CBC, BMP Tolerating hCG EBV ED Timeline 2:57 PM CBC with leukocytosis of 16 with left shift. No anemia. Urine negative. 3:26 PM CRP elevated 7.3. BMP unrevealing. 3:55 PM Monospot negative. 4:[address]: 1. Left peritonsillar abscess measuring 3.5 x 2.2 x 2.0 cm. Another small abscess in the tonsillar fossa anteromedially. 2. There is narrowing and deviation of the oropharyngeal airway to the right. 3. Left cervical adenopathy. 4:21 PM given patient's penicillin allergy, have consulted with pharmacy who confirmed regiment of linezolid and Flagyl given patient's failure of both cefdinir and clindamycin outpatient. Hospitalist service has been paged for admission. 4:26 PM spoke with hospitalist group. They recommend consulting ENT given the size of patient's abscess. 4:33 PM consulted ENT. They recommend giving the patient Decadron. Have ordered 10 mg to be given IV given patient's compromised ability to swallow. [facility] team consulted for admission under medicine service. ENT requested that they put in a formal ENT consultation once accepted under their care. Tori Patino DO Emergency Medicine Resident PGY-2 ED Course as of 03/20/25 1735 ThuMar 20, 2025 1419 19 yo female presenting with sore throat. Sore throat and tonsil swelling last week, saw ENT and was diagnosed with strep, got cefdinir and steroids. Initially improving then on Thursday woke up with worsening sore throat so went to OSH ED, got IV antibiotics and changed to clindamycin which she has been on since then. Continues to worsen, now with voice changes and trismus. Can't tolerate secretions secondary to pain. Has required admission for peritonsillar abscess in past Plan: CT neck, HCG, CBC, BMP, CRP, NSB, toradol [KM] 1425 Pertinent exam findings: well appearing, no distress. PERRL. +trismus. Hot potato voice. Unable to fully visualize posterior oropharynx due to trismus. +left sided submandibular lymphadenopathy. Bilateral TM non-bulging, non-erythematous. Full neck ROM, no nuchal rigidity. Heart regular rate and rhythm. Lungs CTA bilaterally, no stridor or wheezing. [KM] 1440 hCG Urine POCT: Negative [KM] 1459 Complete Blood Count with Differential(!): WBC 16.3(!) Nucleated RBC Percent 0.0 RBC 4.53 Hemoglobin 13.2 Hematocrit 38.6 MCV 85.2 MCH 29.1 MCHC 34.2(!) RDW-CV 12.2 Platelets 327 MPV 9.5(!) % Immature Granulocyte 0.4 Neutrophil # 13.16(!) Lymphocyte # 1.90 Monocyte # 1.08(!) Eosinophil # 0.07 Basophil # 0.04 % Neutrophils 80.8(!) % Lymphocytes 11.6(!) % Monocytes 6.6 % Eosinophils 0.4(!) % Basophils 0.2(!) +leukocytosis [KM] 1535 C-Reactive Protein(!): 7.3 [KM] 1535 Basic metabolic panel: Sodium 140 Potassium 3.8 Chloride 101 Carbon Dioxide 24.4 Glucose 88 Creatinine 0.69 Calcium 9.5 eGFR >90 BUN 10 No electrolyte derangement [KM] 1544 Monospot (Heterophile Antobodies): Negative [KM] 1604 CT Soft Tissue Neck with IV contrast IMPRESSION: 1. Left peritonsillar abscess measuring 3.5 x 2.2 x 2.0 cm. Another small abscess in the tonsillar fossa anteromedially. 2. There is narrowing and deviation of the oropharyngeal airway to the right. 3. Left cervical adenopathy. [KM] 1630 Patient is penicillin allergic, spoke with ED pharmacist who recommended linezolid and flagyl [KM] 1639 Patient admitted to Hospitalist under Dr. Lopez for further management, requested we speak with ENT prior to admission - no intervention from their standpoint, will consult on floor, recommended decadron [KM] 2424 1732 hrs: This patient was signed out to me by Dr. Patino. On reevaluation patient was actively being wheeled from his ED room to his hospitalist room. He appeared well and in no critical condition that warranted emergent intervention at this time. [MD] ED Course User Index [KM] Demetra Rendon DO [] Andrés Richey DO Final diagnoses: [J36] Peritonsillar abscess [R22.1] Neck swelling [R49.9] Hoarseness or changing voice [R25.2] Trismus [J36] Tonsillar abscess I personally performed ocampo portions of the history and physical examination of this patient and discussed the management plan with the resident. I reviewed the resident's note and agree with the documented findings and plan of care, except as noted by and bold. See my documentation under MDM. Demetra Rendon DO Pediatric Emergency Medicine Fellow 03/20/2025 4:53 PM [1] Allergies Allergen Reactions Penicillins Rash Pt was seen last Thursday by ENT diagnosed with strep, pt seen at OSH ED for concerns on Thursday for increased swelling, pt reports today that she is having even more increased swelling on both sides of her neck, unable to PO, normal UO. Pt alert/ambul skin wpd respirs easy/even lungs ctab. documented in this encounter [facility] 03-20-2025 Progress note Formatting of t his note might be different from the original. Initial ED Case Management screening tool completed. No CM discharge related concerns identified at this time. [facility] 03-20-2025 Physician Emergency department Note Jocelyn Barajas : 2005 Chief Complaint Patient presents with Sore Throat (Pharyngitis) Allergies[1] DOS: 03/20/2025 19-year-old female presenting to the emergency department for evaluation of throat swelling. Patient states that last week she started developing a sore throat and tonsillar swelling. She states she has a longstanding history of similar symptoms sometimes in the setting of strep infections sometimes 1 strep negative. She is followed by ENT internal follow-up last Thursday she was positive for strep. Consequently she was started on a course of cefdinir given her penicillin allergy. She reports that she experienced an transient improvement with this but by Thursday 3:30 AM she awoke with worsening pain and throat swelling. Upon again contacting her ENT she was recommended to go to the emergency department. At the time she was given IV antibiotics and on discharge her regiment was changed to clindamycin. No imaging was performed at that time. She presents today as she is now experiencing more left-sided neck swelling in addition to new right-sided neck swelling as well as changes in her voice and trismus. She has significant difficulty tolerating p.o. intake but has continued to tolerate her secretions. She denies fevers. She is not taking anything at home for pain. She reports a past history of mononucleosis and several prior rounds of strep pharyngitis. Mom states that in April of last year she had similar worsening of her swelling and ended up being admitted to the hospital for IV antibiotics in the setting of a peritonsillar abscess. The history is provided by the patient and a parent. History of Present Illness Review of Systems Review of Systems Constitutional: Positive for appetite change (decreased). Negative for chills and fever. HENT: Positive for sore throat, tinnitus, trouble swallowing and voice change. Negative for congestion and rhinorrhea. Respiratory: Negative for cough and wheezing. Gastrointestinal: Negative for abdominal pain, diarrhea, nausea and vomiting. Genitourinary: Negative for decreased urine volume, dysuria and hematuria. Musculoskeletal: Negative for back pain. Skin: Negative for rash and wound. Neurological: Negative for syncope and headaches. Patient History Past Medical History: Diagnosis Date ADHD (attention deficit hyperactivity disorder) Asthma Past Surgical History: Procedure Laterality Date DENTAL SURGERY Pediatric History Patient Parents Flor Jiménez (Mother) Fernando Barajas (Father) Other Topics Concern Interpersonal relationships Not Asked Poor school performance Not Asked Reading difficulties Not Asked Speech difficulties Not Asked Writing difficulties Not Asked Toilet training problems Not Asked Inadequate sleep Not Asked Excessive TV viewing Not Asked Excessive video game use Not Asked Inadequate exercise Not Asked Sports related Not Asked Poor diet Not Asked Second-hand smoke exposure Not Asked Alcohol/drug concerns Not Asked Violence concerns Not Asked Poor oral hygiene Not Asked Bike safety Not Asked Vehicle safety Not Asked Social History Narrative Not on file ED Triage Vitals Date and Time Temp Temp src Pulse Resp BP SpO2 User 03/20/25 1355 36.5 C (97.7 F) Temporal 97 -- 127/64 100 % JRD Physical Exam Vitals and nursing note reviewed. Constitutional: Appearance: She is well-developed. Comments: Patient appears slightly uncomfortable. She speaks with somewhat muffled voice. She is tolerating her own secretions. HENT: Head: Normocephalic and atraumatic. Comments: Patient with significant trismus and inability to open mouth to visualize tonsils. No appreciable lesions. No tongue or lip swelling. Significant swelling under left mandible with overlying tenderness. Similar but less severe swelling in right submandibular space. Mouth/Throat: Mouth: Mucous membranes are moist. Eyes: Conjunctiva/sclera: Conjunctivae normal. Pupils: Pupils are equal, round, and reactive to light. Neck: Musculoskeletal: Normal range of motion. Cardiovascular: Rate and Rhythm: Normal rate and regular rhythm. Abdominal: General: Abdomen is flat. Palpations: Abdomen is soft. Tenderness: There is no abdominal tenderness. Musculoskeletal: Cervical back: Normal range of motion. No rigidity. Skin: General: Skin is warm and dry. Findings: No rash. Neurological: Mental Status: She is alert. Psychiatric: Mood and Affect: Mood normal. Behavior: Behavior normal. Physical Exam Procedures Encounter Documentation/Handoff: Labs/Radiology: Recent Results (from the past 24 hours) POCT urine HCG Collection Time: 03/20/25 2:39 PM Result Value Ref Range hCG Urine POCT Negative Negative Control Line *Present Clear Background *Present Lot # [id number] Basic metabolic panel Collection Time: 03/20/25 2:41 PM Result Value Ref Range Sodium 140 133 - 145 mmol/L POTASSIUM 3.8 3.3 - 5.1 mmol/L CHLORIDE 101 96 - 108 mmol/L CARBON DIOXIDE 24.4 22.0 - 29.0 mmol/L GLUCOSE 88 70 - 99 mg/dL Creatinine 0.69 0.50 - 1.00 mg/dL CALCIUM 9.5 7.6 - 11.0 mg/dL eGFR >90 >=60 mL/min/1.73 m2 BUN 10 4 - 19 mg/dL C-reactive protein Collection Time: 03/20/25 2:41 PM Result Value Ref Range CRP 7.3 (H) <=1.0 MG/DL Complete Blood Count with Differential Collection Time: 03/20/25 2:41 PM Result Value Ref Range WBC 16.3 (H) 4.9 - 10.0 10E3/ L Nucleated RBC Percent 0.0 0.0 - 0.0 % RBC 4.53 4.03 - 4.91 10E6/ L Hemoglobin 13.2 11.4 - 14.8 g/dL Hematocrit 38.6 35.5 - 44.6 % MCV 85.2 80.0 - 100.0 fL MCH 29.1 25.7 - 31.2 pg MCHC 34.2 (H) 31.3 - 34.0 % RDW CV 12.2 11.9 - 14.8 % Platelets 327 150 - 400 10E3/ L MPV 9.5 (L) 9.6 - 11.9 fL % Immature Granulocyte 0.4 0.2 - 0.5 % Neutrophil # 13.16 (H) 2.43 - 6.42 10E3/ L Lymphocyte # 1.90 1.51 - 2.99 10E3/ L Monocyte # 1.08 (H) 0.36 - 0.77 10E3/ L Eosinophil # 0.07 0.04 - 0.27 10E3/ L Basophil # 0.04 0.02 - 0.06 10E3/ L % Neutrophils 80.8 (H) 46.0 - 68.6 % % Lymphocytes 11.6 (L) 21.8 - 42.1 % % Monocytes 6.6 5.6 - 10.2 % % Eosinophil 0.4 (L) 0.6 - 3.8 % % Basophils 0.2 (L) 0.3 - 0.9 % Mononucleosis screen Collection Time: 03/20/25 2:41 PM Result Value Ref Range Monospot (Heterophile Antibodies) Negative Negative CT Soft Tissue Neck with IV contrast Final Result IMPRESSION: 1. Left peritonsillar abscess measuring 3.5 x 2.2 x 2.0 cm. Another small abscess in the tonsillar fossa anteromedially. 2. There is narrowing and deviation of the oropharyngeal airway to the right. 3. Left cervical adenopathy. This report has been created using voice recognition software Consults: No orders of the defined types were placed in this encounter. Treatment/Reassessment: see below Medical Decision Making Problems Addressed: Hoarseness or changing voice: complicated acute illness or injury Neck swelling: complicated acute illness or injury Peritonsillar abscess: complicated acute illness or injury Tonsillar abscess: complicated acute illness or injury Trismus: complicated acute illness or injury Amount and/or Complexity of Data Reviewed Labs: ordered. Decision-making details documented in ED Course. Radiology: ordered. Decision-making details documented in ED Course. Risk Prescription drug management. Decision regarding hospitalization. MDM 19 y.o. female presenting to the emergency department for evaluation of throat swelling. Differential Diagnosis Given patient's persistence of symptoms, with now significant left-sided facial swelling and voice changes, concern for peritonsillar abscess. Patient has full preserved range of motion and consequently less concern for retropharyngeal abscess. Additional etiologies considered include mono versus resistant strep. Plan CT head neck 1 L IV fluid bolus CBC, BMP Tolerating hCG EBV ED Timeline 2:57 PM CBC with leukocytosis of 16 with left shift. No anemia. Urine negative. 3:26 PM CRP elevated 7.3. BMP unrevealing. 3:55 PM Monospot negative. 4:[address] PM Soft tissue neck CT: 1. Left peritonsillar abscess measuring 3.5 x 2.2 x 2.0 cm. Another small abscess in the tonsillar fossa anteromedially. 2. There is narrowing and deviation of the oropharyngeal airway to the right. 3. Left cervical adenopathy. 4:21 PM given patient's penicillin allergy, have consulted with pharmacy who confirmed regiment of linezolid and Flagyl given patient's failure of both cefdinir and clindamycin outpatient. Hospitalist service has been paged for admission. 4:26 PM spoke with hospitalist group. They recommend consulting ENT given the size of patient's abscess. 4:33 PM consulted ENT. They recommend giving the patient Decadron. Have ordered 10 mg to be given IV given patient's compromised ability to swallow. [facility] team consulted for admission under medicine service. ENT requested that they put in a formal ENT consultation once accepted under their care. Tori Patino DO Emergency Medicine Resident PGY-2 ED Course as of 03/20/25 1735 ThuMar 20, 2025 1419 19 yo female presenting with sore throat. Sore throat and tonsil swelling last week, saw ENT and was diagnosed with strep, got cefdinir and steroids. Initially improving then on Thursday woke up with worsening sore throat so went to OSH ED, got IV antibiotics and changed to clindamycin which she has been on since then. Continues to worsen, now with voice changes and trismus. Can't tolerate secretions secondary to pain. Has required admission for peritonsillar abscess in past Plan: CT neck, HCG, CBC, BMP, CRP, NSB, toradol [KM] 1425 Pertinent exam findings: well appearing, no distress. PERRL. +trismus. Hot potato voice. Unable to fully visualize posterior oropharynx due to trismus. +left sided submandibular lymphadenopathy. Bilateral TM non-bulging, non-erythematous. Full neck ROM, no nuchal rigidity. Heart regular rate and rhythm. Lungs CTA bilaterally, no stridor or wheezing. [KM] 1440 hCG Urine POCT: Negative [KM] 1459 Complete Blood Count with Differential(!): WBC 16.3(!) Nucleated RBC Percent 0.0 RBC 4.53 Hemoglobin 13.2 Hematocrit 38.6 MCV 85.2 MCH 29.1 MCHC 34.2(!) RDW-CV 12.2 Platelets 327 MPV 9.5(!) % Immature Granulocyte 0.4 Neutrophil # 13.16(!) Lymphocyte # 1.90 Monocyte # 1.08(!) Eosinophil # 0.07 Basophil # 0.04 % Neutrophils 80.8(!) % Lymphocytes 11.6(!) % Monocytes 6.6 % Eosinophils 0.4(!) % Basophils 0.2(!) +leukocytosis [KM] 1535 C-Reactive Protein(!): 7.3 [KM] 1535 Basic metabolic panel: Sodium 140 Potassium 3.8 Chloride 101 Carbon Dioxide 24.4 Glucose 88 Creatinine 0.69 Calcium 9.5 eGFR >90 BUN 10 No electrolyte derangement [KM] 1544 Monospot (Heterophile Antobodies): Negative [KM] 1604 CT Soft Tissue Neck with IV contrast IMPRESSION: 1. Left peritonsillar abscess measuring 3.5 x 2.2 x 2.0 cm. Another small abscess in the tonsillar fossa anteromedially. 2. There is narrowing and deviation of the oropharyngeal airway to the right. 3. Left cervical adenopathy. [KM] 1630 Patient is penicillin allergic, spoke with ED pharmacist who recommended linezolid and flagyl [KM] 1639 Patient admitted to Hospitalist under Dr. Lopez for further management, requested we speak with ENT prior to admission - no intervention from their standpoint, will consult on floor, recommended decadron [KM] 5422 1732 hrs: This patient was signed out to me by Dr. Patino. On reevaluation patient was actively being wheeled from his ED room to his hospitalist room. He appeared well and in no critical condition that warranted emergent intervention at this time. [MD] ED Course User Index [KM] Demetra Rendon DO [] Andrés Richey DO Final diagnoses: [J36] Peritonsillar abscess [R22.1] Neck swelling [R49.9] Hoarseness or changing voice [R25.2] Trismus [J36] Tonsillar abscess I personally performed ocampo portions of the history and physical examination of this patient and discussed the management plan with the resident. I reviewed the resident's note and agree with the documented findings and plan of care, except as noted by and bold. See my documentation under MDM. Demetra Rendon DO Pediatric Emergency Medicine Fellow 03/20/2025 4:53 PM [1] Allergies Allergen Reactions Penicillins Rash [facility] Work Phone: 03-20-2025 Emergency department Triage note Pt was seen last Thursday by ENT diagnosed with strep, pt seen at OSH ED for concerns on Thursday for increased swelling, pt reports today that she is having even more increased swelling on both sides of her neck, unable to PO, normal UO. Pt alert/ambul skin wpd respirs easy/even lungs ctab. [facility] 02-26-2025 Radiology Diagnostic study note [facility] Imaging Services [address] [place] [address] [id number] Pelvic w/ Transvaginal MR#: [id number] Acct: [id number] Name: JOCELYN BARAJAS Rep #: [id number] : 2005 F 19 From: Pet er Peer DO PCP: Dr. Mitzy Fung MD Status: REG CLI Study:Pelvic w/ Transvaginal Date of Exam: 02/23/25 Exam# [id number] Ordering Dr: Jess Garcia DO PROCEDURE: PELVIC [...] finding is frequently physiologic,but nonspecific. Reading [facility] CC: Dr. Mitzy Fung MD; DO Liz Ng Clay Carman: Signed [facility] 02-05-2025 Discharge summary [facility] 02-05-2025 Radiology Diagnostic study note [facility] Imaging Services [address] [place], [place] [id number] Abdomen/Pelvis W IV Cont ONLY MR#: [id number] Acct: [id number] Name: JOCELYN BARAJAS Rep #: [id number] : 2005 F 19 From: Lisette Henriquez MD PCP: Dr. Mitzy Fung MD Status: REG ER Study:Abdomen/Pelvis W IV Cont ONLY Date of E xam: 02/05/25 Exam# [id number] Ordering Dr: Arturo Hernandez MD PROCEDURE: ABDOMEN/PELVIS [...] patient's symptoms and urinalysis recommended. Reading Location: [facility] CC: Dr. Arturo Hernandez MD; Dr. Mitzy Fung MD ~ Clay Carman: Signed [facility] 02-05-2025 Hospital Discharge instructions Additional Instructions Try taking MiraLAX to help with your constipation. Follow-up with Dr. Ruano regarding the thickened bladder wall on your CT scan. Return with new or worsening symptoms. Otherwise follow-up with your primary care provider in the next 3 to 5 days if not improving. [facility] Work Phone: 01-23-2025 Discharge summary [facility] 01-20-2025 Radiology Diagnostic study note [facility] Imaging Services [address] [place], [place] [address] CT Chest, Abd, Pel w/Contrast MR#: [id number] Acct: [id number] Name: JOCELYN BARAJAS Rep #: [id number] : 2005 F 19 From: Luanne Sharma MD PCP: Dr. Mitzy Fung MD Status: REG ER Study:CT Chest, Abd, Pel w/Contrast Date of E xam: 01/20/25 Exam# [id number] Ordering Dr: Javier Isabel DO PROCEDURE: CT [...] on series 2, image 66. Reading Location: [id number] CC: Dr. Javier Isabel DO; Dr. Mitzy Fung MD ~ Clay Carman: Signed [facility] 08-27-2024 Note Addended by: OTILIO SAUCEDO on: 08/27/2024 01:23 PM Modules accepted: Orders [facility] 08-27-2024 Miscellaneous Notes Addended by: OTILIO ENRIQUEZ on: 08/27/2024 01:23 PM Modules accepted: Orders documented in this encounter [facility] 08-27-2024 Note HNO ID: [id number] Author: NASRIN VILLAVICENCIO LPN Service: ? Author Type: LICENSED NURSE Type: Progress Notes Filed: 08/27/2024 13:04 Note Text: 2.5 solution aerosol treatment given per provider's orders. Prior to treatment O2 sat is 97%. Treatment completed. O2 sat is 100%. Tolerated well. Nasrin Villavicencio LPN [facility] 08-27-2024 History of Present illness Narrative 2.5 solution aerosol treatment given per provider's orders. Prior to treatment O2 sat is 97%. Treatment completed. O2 sat is 100%. Tolerated well. Nasrin Villavicencio LPN Subjective Ear Pain Associated symptoms include congestion, coughing, headaches and a sore throat. Pertinent negatives include no chest pain, chills, fever, myalgias, nausea or vomiting. Jocelyn Barajas is a 19 year old female [...] analgesia. - Discussed expected course of illness Otilio Enriquez APRN.SENIOR IT PROJECT MANAGER documented in this encounter [facility] 08-27-2024 Note HNO ID: [id number] Author: OTILIO ENRIQUEZ APRN.CELINE Service: ? Author Type: Nurse Practitioner Type: Progress Notes Filed: 08/27/2024 12:30 Note Text: Subjective Ear Pain Associated symptoms include congestion, coughing, headaches and a sore throat. Pertinent negatives include no chest pain, chills, fever, myalgias, nausea or vomiting. Jocelyn Barajas is a 19 year old female [...] as prescribed. 4. (more content not included)... [facility] 08-27-2024 Instructions Otilio Enriquez, ALEX.SENIOR IT PROJECT MANAGER - 08/27/2024 12:08 PM EST ASSESSMENT/PLAN: 1. [...] analgesia. - Discussed expected course of illness Otilio Enriquez APRN.SENIOR IT PROJECT MANAGER Previous hospitalization care team: Attending Provider: Ernestina Lanza MD (attending for admission) Consulting: Rosendo Richey MD (ENT) Consulting: Kimberly Uriostegui MD (infectious disease) documented in this encounter [facility] 04-25-2024 Note HNO ID: [id number] Author: ERNESTINA LANZA MD Service: Hospital Medicine [...] PCOS, asthma, URIEL. Patient was transferred from [facility] hospital today for concerns of 2 [...] sore throat associated with dysphagia At the [place] ED CT neck with IV contrast showing [...] PIV CODE STA (more content not included)... [facility] 04-25-2024 Note HNO ID: [id number] Author: ROSENDO RICHEY MD Service: Otolaryngology Author Type: Physician [...] the steroids. Follow-up with me as needed. Rosendo Richey MD [facility] 01-26-2024 History of Present illness Narrative This note was created using XimoXi. April Barajas is a 18 year old [...] ibuprofen or Tylenol as needed for pain. Sandro Polo APRN.CELINE documented in this encounter [facility] 12-29-2023 History of Present illness Narrative Subjective UTI Associated symptoms include frequency and hematuria. Pertinent negatives include no chills, no nausea and no vomiting. Ear Problem Pertinent negatives include no abdominal pain or vomiting. Jocelyn Barajas is a 18 year old female [...] (primary diagnosis) acute - UA positive for dee esterase, hematuria, and proteinuria - Send urine [...] analgesia. - Discussed expected course of illness Otilio Enriquez APRN.SENIOR IT PROJECT MANAGER documented in this encounter [facility] 12-29-2023 Instructions Otilio Enriquez APRN.SENIOR IT PROJECT MANAGER - 12/29/2023 5:06 PM EDT ASSESSMENT/PLAN: 1. Burning with urination - ICD9: 788.1, ICD10: R30.0 (primary diagnosis) acute - UA positive for dee esterase, hematuria, and proteinuria - Send urine [...] analgesia. - Discussed expected course of illness Otilio Enriquez APRN.[facility] PATIENT INFO BLADDER INFECTION OVERVIEW Bladder [...] but do not actually have an infection. One Block Off the Grid (1BOG)ally signed by Otilio Enriquez APRN.SENIOR IT PROJECT MANAGER at 12/29/2023 5:06 PM EDT documented in this encounter [facility] 12-24-2023 Procedure note [facility] 11-14-2023 Discharge summary Note Date/Time November 14, 2023 1:42pm [facility] Medical Records Department [address] [place] [address] Emergency Department Summary 11/14/23 MR#: [id number] Acct: [id number] Name: JOCELYN BARAJAS Rep #:[id number] : 2005 18 From: Alexis Farfan MD [...] was seen 2 weeks ago at the [facility] urgent care diagnosed with urinary tract [...] Prior similar symptoms: Yes Recent Illness/Hospitalization: Yes [facility] Medical History (Updated 11/14/23 @ 18:17 [...] (Auto) 65.2 H Lymph % (Auto) 27.1 [place] % (Auto) 5.1 Eos % (Auto) 1.7 [...] Sl. Cloudy Urine pH 6.5 Ur Specific [place] 1.015 Urine Protein 30 H Urine Glucose [...] your Primary Care Provider. Call [facility] ([phone]) or report to the closest Emergency Room. Call 911 if necessary. 11/14/231817 <Electronically signed by Alexis Farfan MD> Cosigner Signature (if applicable): CC: Dr. Mitzy Fung MD ~ Signed [facility] Work Phone: 1(273) 772-796503-23-2024 History of Present illness Narrative* Latasha Cuadra APRN.CELINE - 11/14/2023 12:50 PM EDT Complaints of severe right flank pain. Patient says she has passed 2 hard Allen objects throughher urethra. Patient says she feels [...] with this care plan. [facility] [facility] Miscellaneous Notes* Telephone Encounter - Ariane Davis RN - 11/02/2023 2:14 PM EDT Pt returned call and given provider's message below with verbalized understanding. * Telephone Encounter - Stefany Olivo MA - 10/31/2023 1:58 PM EST left message with mom to return call. Stefany Olivo MA * Telephone Encounter - Moe Montez MD - 10/31/2023 1:40 PM EST Vaginal swab was positive for yeast. Diflucan prescribed at the visit should help with this. Urine culture is pending; continue nitrofurantoin. documented in this encounterKeen[facility]03-[facility] History of Present illness Narrative* Lillian Cruz APRN.SENIOR IT PROJECT MANAGER - 10/30/2023 4:02 PM EST This note was created using XimoXi. Subjective Jocelyn Barajas is a 18 year old female. [...] history is provided by the patient. No speech language pathology assistant was used. UTI This is a new [...] ICD10: R30.0 acute - UA positive for dee esterase, hematuria, and proteinuria - Send urine for culture - Begin treatment with Macrobid 100 mg BID for 5 days - Patient education for prevention given Obtained self swabs for prince and BV - UA DIP, URINE (POC) - URINE CULTURE - PRINCE/TRICHOMONAS NAAT - BACTERIAL VAGINOSIS NAAT Lillian Cruz APRN.SENIOR IT PROJECT MANAGER documented in this encounterKeenan [facility] Hospital12-10-2023 Nurse Note* Brigette Rincon MA - 08/02/2023 11:02 AM EST Pt returned for a urine culture recheck, due to contamination. Brigette Rincon MA documented in this encounterKeenan [facility] Hospital12-07-2023 Miscellaneous Notes* Telephone Encounter - Leta Raymundo LPN - 07/30/2023 7:24 PM EST Patient's mother given results and verbalized understanding of instructions given. Leta Raymundo LPN * Telephone Encounter - Lillian Cruz APRN.CNP - 07/30/2023 3:57 PM EST Please inform patient urine culture revealed mixed bacterial growth. If patient would like, can provide another urine specimen. I have placed an order . Would just need to represent to express care as nurse visit Patient should follow up with PCP for continued symptoms. documented in this encounterKeenan [facility] Hospital12-05-2023 History of Present illness Narrative* Ken Dawson APRN.CNP - 07/28/2023 7:07 PM EST SUBJECTIVE: Jocelyn Barajas is a 18 year old female. [...] was a pleasure to take care of Jocelyn Barajas today. A urine sample was received [...] - URINE CULTURE - CONSULT TO UROLOGY Ken Dawson APRN.CELINE documented in this encounterKeenan [facility] Hospital04-07-[address] De La Torre [facility] November 28, 2022 6:52pm Note Date/Time November 28, 2022 3:09 pm [facility] Medical Records Department [address] [place] [address] Emergency Department Summary 11/28/22 MR#: [id number] Acct: [id number] Name: JOCELYN BARAJAS Rep #:[id number] : 2005 17 From: Vishal De La [...] again today as advised by her operating denture finisher Dr. Alfreda Clements. Patient took naproxen prior [...] pain restarted 2 hours prior to evaluation. [facility] Medical History (Updated 11/28/22 @ 18:46 [...] is also following up with [facility], I encouraged mom to keep that [...] % (Auto) 62.9 Lymph % (Auto) 29.3 [place] % (Auto) 5.6 Eos % (Auto) 1.5 [...] Sl. Cloudy Urine pH 8.0 Ur Specific [place] 1.015 Urine Protein Negative Urine Glucose (UA) [...] 16:52 EDT Reading Location ID and State: [place] / Tel , Service support , Discharge Plan Triage Chief Complaint: Abd Pain ED Provider: Vishal De La Torre Dx/Rx/DC Orders Clinical Impression: Acute pain in female pelvis Instructions: Treating a Ruptured Ovarian Cyst, ED Mid-Cycle Pain (Kim) Prescriptions: No Action albuterol sulfate [Ventolin HFA] [...] your Primary Care Provider. Call [facility] ([phone]) or report to the closest Emergency Room. Call 911 if necessary. 11/28/22 185 <Electronically signed by Vishal De La Torre MD> Cosigner Signature (if applicable): CC: Dr. Mitzy Fung MD; Dr. Mara Clements MD ~ Signed [facility] Work Phone: 1(736) 727-345003-28-2023 Procedure [facility] 11-18-2022 History and physical note Author Dr. Clements [facility] November 18, 2022 3:01am Note Date/Time November 18, 2022 12: 23am [facility] Medical Records Department [address] [place] [address] History & Physical Exam 11/18/22 0017 MR#: [id number] Acct: [id number] Name: JOCELYN BARAJAS Rep #:[id number] : 2005 17 From: Mara villegas MD PCP: Dr. Mitzy Fung MD Status:[facility] Location: [place] [address] HPI - General General Date of Service: 11/18/22 Chief Complaint: belly pain HPI Narrative JOCELYN BARAJAS, is a 17 F 0 LMP [...] antibiotics for UTI diagnosed 2 weeks ago. [facility] Medical History ADHD Asthma Home Medications [...] (Auto) 41.2, Lymph % (Auto) 50.2 H, [place] % (Auto) 6.4 H, Eos % (Auto) [...] 0:14 EDT Reading Location ID and State: [facility] / [place] Tel , Service support , Assessment & [...] Fung MD; Dr. Mara Clements MD~ Signed [facility] Work Phone: 1(342) 566-519201-03-2023 Miscellaneous Notes* Telephone Encounter - Nasrin Villavicencio [...] 08/26/2022 7:22 AM EST ----- Message from Otilio Enriquez APRN.SENIOR IT PROJECT MANAGER sent at 08/26/2022 7:21 AM EST ----- Please advise parent of Jocelyn the COVID, flu, RSV test is negative. documented in this encounterKeenan Private Hospital01-02-2023 History of Present illness Narrative* Moe Montez MD - 08/25/2022 4:27 PM EST Patient presents with: Sore Throat: AGUILERA, BEARTIZ ear pain, low fever, congestion x1 day [...] ROUTINE Moe Montez MD documented in this encounterKeenan Private Hospital11-02-2022 Miscellaneous Notes* Telephone Encounter - Stefany Olivo - 06/25/2022 11:14 AM EDT Patient given results and verbalized understanding of instructions given. Stefany Olivo * Telephone Encounter - Lillian Cruz APRN.CNP - 06/25/2022 10:02 AM EDT Patient tested positive for BV. Flagyl sent into [facility]. Please reach out and inform patient. This is not an STI. Follow [facility] documented in this encounterKeenan Private Hospital11-01-2022 History of Present illness Narrative* Gus [...] care. Gus Munroe APRN.CELINE documented in this encounterKeenan Private Hospital05-27-2022 History of Present illness Narrative* Gus [...] ICD10: R10.9 (primary diagnosis) - CONSULT TO CLOTHING PATTERN PREPARER 2. Acute sinusitis, recurrence not specified, unspecified location - ICD9: 461.9, ICD10: J01.90 Patient diagnosed with maxillary sinusitis. Patient was placed on amoxicillin. Will follow up with PCP for reevaluation 2 to 3 days symptoms are not improving. Additionally patient will be referred to CLOTHING PATTERN PREPARER. Patient states she has had ongoing suprapubic tenderness ever since she has been diagnosedwith a UTI this has been several months ago. Red flags for prompt reevaluation discussed. Will be seen in urgent care or ED for any new or worsening symptoms. Patient/mother verbalized understanding agrees with plan of care Gus Munroe APRN.CELINE [facility] Dr. Clements [facility] November 18, 2022 3:17am Note Date/Time November 18, 2022 3:1 4am [facility] Medical Records Department [address] [place] [address] Instructions for Home/Discharge Instructions 11/18/22 0311 MR#: [id number] Acct: [id number] Name: JOCELYN BARAJAS Rep #:[id number] : 2005 17 From: Mara villegas MD PCP: Dr. Mitzy Fung MD Status:[facility] Discharge Instructions Diet [...] Mara Allen MD When: Follow up with [facility] as scheduled or call [phone] Alfreda Clements Test [...] CC: Dr. Mitzy Fung MD ~ Signed [facility] Work Phone: Discharge summary Author Leny Ruano [facility] December 24, 2023 9:01am Note Date/Time December 24, 2023 9:01am [facility] Medical Records Department [address] [facility] [place] [address] Instructions for Home/Discharge Instructions 12/24/23 0900 MR#: [id number] Acct: [id number] Name: JOCELYN BARAJAS Rep #:[id number] : 2005 18 From: Leny Robison PCP: Dr. Mitzy Fung MD Status:[facility] Discharge Instructions Diet Discharge Diet: No restrictions Activity Discharge Activity: Return to Normal Activity Dressing / Incision Call your doctor if you observe: Fever of 101 or Higher, Inability to urinate and Inability to have a bowel movement Follow Up Care Please Follow Up With: Lney Ruano MD When: Follow-up in the office [...] CC: Dr. Mitzy Fung MD ~ Signed [facility] Work Phone: Discharge summary Author Yaron Peralta [facility] Note Date/Time January 23, 2025 10:43 am [facility] Medical Records Department [address] [place] [address] Emergency Department Summary 01/23/25 MR#: [id number] Acct: [id number] Name: JOCELYN BARAJAS Rep #:[id number] : 2005 19 From: Yaron Peralta MD [...] Toradol. We do long discussion show follow-up withOB/SILK PRESSER for her endometriosis. She will follow-up with [...] Sl. Cloudy Urine pH 6.5 Ur Specific [place] 1.010 Urine Protein 15 H Urine Glucose [...] Counseling. Support groups. Follow-up with a local CLOTHING PATTERN PREPARER for your pelvic pain and endometriosis. Print Language: [place] Disposition Disposition: Home, Self Care What to do if you have Problems For any increased pain, shortness of breath, bleeding, nausea or vomiting, chestpain, or any unexpected problems, contact your Primary Care Provider. Call [facility] ([phone]) or report to the closest Emergency Room. Call 911 if necessary. 01/23/25 1043 <Electronically signed by Yaron Peralta MD> Cosigner Signature (if applicable): CC: Dr. Mitzy Fung MD ~ Signed [facility] Work Phone: Discharge summary Author Arturo Hernandez [facility] Note Date/Time February 05, 2025 11:5 7am [facility] Medical Records Department [address] [place] [address] Emergency Department Summary 02/05/25 MR#: [id number] Acct: [id number] Name: JOCELYN BARAJAS Rep #:[id number] : 2005 19 From: Arturo Hernandez MD [...] quadrant abdominal pain. No fevers or chills. [facility] Medical History Wears glasses Bipolar disorder [...] to gas, butshe will also start MiraLAX [id number]. Follow-up with primary care. Return instructions reviewed. [...] % (Auto) 48.7 Lymph % (Auto) 40.5 [place] % (Auto) 6.3 Eos % (Auto) 3.4 [...] Clarity Clear Urine pH 7.0 Ur Specific [place] 1.005 Urine Protein 30 H Urine Glucose [...] patient's symptoms and urinalysis recommended. Reading Location: [facility] Discharge Plan Triage Chief Complaint: Constipation ED [...] 5 days if not improving. Print Language: [place] Disposition Disposition: Home, Self Care What to do if you have Problems For any increased pain, shortness of breath, bleeding, nausea or vomiting, chestpain, or any unexpected problems, contact your Primary Care Provider. Call [place] [facility] ([phone]) or report to the closest Emergency Room. Call 911 if necessary. 02/05/25 1153 <Electronically signed by Arturo Hernandez MD> Cosigner Signature (if applicable): CC: Dr. Mitzy Fung MD ~ Signed [facility] Work Phone: Evaluation note* Diagnosis Abdominal pain, unspecified abdominal location- Primary Acute sinusitis, recurrence not specified, unspecified location [facility]* Diagnosis Urinary frequency- Primary documented in this [facility] noteNo assessment information availableWTrumbull Memorial Hospital Work Phone: Evaluation note* Diagnosis Sore throat- Primary Acute pharyngitis Influenza-like illness Influenza with other respiratory manifestations documented in this encounter [facility] note* Diagnosis Onset Date Resolution Status Ovarian torsion acute [facility] Work Phone: Evaluation note* Diagnosis Hirsutism Irregular menses Irregular menstrual cycle documented in this encounter [facility] note* Diagnosis Urinary frequency- Primary documented in this encounter [facility] note* Diagnosis Urinary frequency- Primary [facility]* Diagnosis Urinary frequency- Primary documented in this encounter [facility] note* Diagnosis Dysuria- Primary [facility]* Diagnosis Pain in pelvis- Primary Flank pain Abdominal pain, unspecified site documented [facility] this encounter [facility]* Diagnosis Burning with urination- Primary Dysuria Otalgia of right ear Otalgia, unspecified [facility]* Diagnosis Ear pain, right- Primary Otalgia, unspecified [facility] this [facility]* Diagnosis Sore throat- Primary Acute pharyngitis Pharyngitis, unspecified etiology Wheezing Viral URI with cough Acute upper respiratory infections of unspecified site Bronchitis Bronchitis, not specified as acute or chronic documented in this encounter [facility] note* Diagnosis Weight loss Loss of weight Family history of type 2 diabetes mellitus Family history of diabetes mellitus documented in this encounter [facility] note* Diagnosis Peritonsillar abscess- Primary Peritonsillar abscess Neck swelling Swelling, mass, or lump in head and neck Hoarseness or changing voice Other voice and resonance disorders Trismus Abnormal involuntary movements Tonsillar abscess Peritonsillar abscess Recurrent tonsillitis Acute tonsillitis Peritonsillar abscess Tonsillar abscess Peritonsillar abscess Recurrent tonsillitis Acute tonsillitis [facility] Diagnosis Rash- Primary Rash and other nonspecific skin eruption [facility] this [facility]* Diagnosis Abscess, intratonsillar- Primary Peritonsillar abscess Peritonsillar abscess Peritonsillar abscess Tonsillar abscess Peritonsillar abscess Recurrent tonsillitis Acute tonsillitis documented in this encounter [facility] note* Diagnosis Peritonsillar abscess- Primary Peritonsillar abscess Pre-operative examination Preoperative examination, unspecified Tonsillar abscess Peritonsillar abscess Recurrent tonsillitis Acute tonsillitis documented in this encounter [facility] note* Diagnosis Post-tonsillectomy hemorrhage- Primary Hemorrhage complicating a procedure Post-tonsillectomy hemorrhage Hemorrhage complicating a procedure [facility] Additional Instructions For your pelvic and endometriosis pain alternate Motrin and Tylenol. Ativan as needed for your anxiety. Do not drink alcohol or drive while taking it. Follow-up with the counseling center for your anxiety. Otherwise to help deal with anxiety. Read about it and learn about it. Exercise. Breathing techniques. Walking. Reading. Counseling. Support groups. Follow-up with a local CLOTHING PATTERN PREPARER for your pelvic pain and endometriosis.[facility] Work Phone: Hospital Discharge instructionsAdditional Instructions Please obtain your outpatient ultrasound to further assess any cause of your pelvic pain. Follow-up with CLOTHING PATTERN PREPARER for further evaluation and return to the ER should you have any further concernsWTrumbull [facility] Hospital Work Phone: Hospital Discharge instructionsAdditional Instructions Your labs were normal. White count 9.7. Stop cefdinir antibiotic. Continue your steroids. Take clindamycin as prescribed. Follow-up with your ENT team.[facility] Work Phone: Reason for referral (narrative)No reason for referral information availableWTrumbull Memorial Hospital Work Phone: Reason for Referral Specialty Diagnoses / Procedures Referred By Yamile seth Referred To Contact Diagnoses Abdominal pain, unspecified abdominal location Procedures CONSULT TO CLOTHING PATTERN PREPARER OFFICE/OUTPATIENT [facility] 60-74 MINUTES Gus Munroe, ALEX.SENIOR IT PROJECT MANAGER [address] [place] [address] Referral ID Status Reason Start Date Expiration Date Visits Requested Visits Authorized [id number] Authorized PCP Requested Referral Auto-Generate d Referral 01/17/2022 01/17/2023 1 1 Specialty Diagnoses / Procedures Referred By Yamile t Referred To Contact Urology Diagnoses Urinary frequency Procedures CONSULT TO UROLOGY OFFICE/OUTPATIENT [facility] 60-74 MINUTES Ken Dawson, ALEX.SENIOR IT PROJECT MANAGER [address] [place] [address] Referral ID Status Reason Start Date Expiration Date Visits Requested Visits Authorized [id number] Authorized PCP Requested Referral 07/28/2023 07/27/2024 1 [...] ABD/PELVIC PAIN February 23, 2025 3:07p m Chief Complaint Admit Date abd pain January 20, 2025 3:20p m abd pain January 23, 2025 9:18a m constipation February 05, 2025 9:25 am abd pain February 21, 2025 12:56 am ABD/PELVIC PAIN February 23, 2025 3:07p m ACUTE PHARYNGITIS March 13, 2025 3:57 pm THROAT PAIN March 17, 2025 4:08 am Advance Directives Advance Directive Response Recorded Date/ Time Living Will No May 09, 2016 5:08pm Power of Coil Assembler No April 5:08pm Advance Directive Response Recorded Date/ Time Living Will No May 09, 2016 6:08pm Power of Coil Assembler No April 6:08pm Advance Directive Response Recorded Date/ Time Living Will No September 25 4:30am Power of Coil Assembler No September 25, 2023 4:30am Advance Directive Response Recorded Date/ Time Living Will No November 14, 2023 2:18pm Power of Coil Assembler No November 13 2:18pm Advance Directive Response Recorded Date/ Time Living Will No December 21, 2023 1:59pm Power of Coil Assembler No December 20 1:59pm Date Activated Date Inactivated Comments 04/24/2024 9:55 AM 04/26/2024 3:43 PM Question Answer Comments Full Code Order Discussed With: Patient Advance Directive Response Recorded Date/ Time Do you have a Healthcare Power of Coil Assembler? No January 20, 2025 3:51pm Advance Directive Response Recorded Date/ Time Do you have a Healthcare Power of Coil Assembler? No January 20, 2025 3:51pm Do you have a Healthcare Power of Coil Assembler? No January 23, 2025 9:37am Advance Directive Response Recorded Date/ Time Do you have a Healthcare Power of Coil Assembler? No January 20, 2025 3:51pm Do you have a Healthcare Power of Coil Assembler? No January 23, 2025 9:37am Do you have a Healthcare Power of Coil Assembler? No February 05, 2025 9:55am Advance Directive Response Recorded Date/ Time Do you have a Healthcare Power of Coil Assembler? No January 20, 2025 3:51pm Do you have a Healthcare Power of Coil Assembler? No January 23, 2025 9:37am Do you have a Healthcare Power of Coil Assembler? No February 05, 2025 9:55am Do you have a Healthcare Power of Coil Assembler? No February 21, 2025 1:00am Advance Directive Response Recorded Date/ Time Do you have a Healthcare Power of Coil Assembler? No January 20, 2025 3:51pm Do you have a Healthcare Power of Coil Assembler? No January 23, 2025 9:37am Do you have a Healthcare Power of Coil Assembler? No February 05, 2025 9:55am Do you have a Healthcare Power of Coil Assembler? No February 21, 2025 1:00am Do you have a Healthcare Power of Coil Assembler? No March 17, 2025 4:13am Health Concerns Infection Onset Date Last Indicated [...] or prosecute any alcohol or drug abuse patient.[facility] HospitalIn the event this information is protected by the Federal Confidentiality of Alcohol and Drug Abuse Patient Records regulations: The Federal rules restrict any use of the information to criminally investigate or prosecute any alcohol or drug abuse patient.[facility] HospitalIn the event this information is protected by the Federal Confidentiality of Alcohol and Drug Abuse Patient Records regulations: The Federal rules restrict any use of the information to criminally investigate or prosecute any alcohol or drug abuse patient.[facility] HospitalIn the event this information is protected by the Federal Confidentiality of Alcohol and Drug Abuse Patient Records regulations: The Federal rules restrict any use of the information to criminally investigate or prosecute any alcohol or drug abuse patient.[facility] HospitalIn the event this information is protected by the Federal Confidentiality of Alcohol and Drug Abuse Patient Records regulations: The Federal rules restrict any use of the information to criminally investigate or prosecute any alcohol or drug abuse patient.[facility] HospitalIn the event this information is protected by the Federal Confidentiality of Alcohol and Drug Abuse Patient Records regulations: The Federal rules restrict any use of the information to criminally investigate or prosecute any alcohol or drug abuse patient.[facility] HospitalIn the event this information is protected by the Federal Confidentiality of Alcohol and Drug Abuse Patient Records regulations: The Federal rules restrict any use of the information to criminally investigate or prosecute any alcohol or drug abuse patient.[facility] HospitalIn the event this information is protected by the Federal Confidentiality of Alcohol and Drug Abuse Patient Records regulations: The Federal rules restrict any use of the information to criminally investigate or prosecute any alcohol or drug abuse patient.[facility] HospitalIn the event this information is protected by the Federal Confidentiality of Alcohol and Drug Abuse Patient Records regulations: The Federal rules restrict any use of the information to criminally investigate or prosecute any alcohol or drug abuse patient.[facility] HospitalIn the event this information is protected by the Federal Confidentiality of Alcohol and Drug Abuse Patient Records regulations: The Federal rules restrict any use of the information to criminally investigate or prosecute any alcohol or drug abuse patient.[facility] HospitalIn the event this information is protected by the Federal Confidentiality of Alcohol and Drug Abuse Patient Records regulations: The Federal rules restrict any use of the information to criminally investigate or prosecute any alcohol or drug abuse patient.[facility] HospitalIn the event this information is protected by the Federal Confidentiality of Alcohol and Drug Abuse Patient Records regulations: The Federal rules restrict any use of the information to criminally investigate or prosecute any alcohol or drug abuse patient.[facility] HospitalIn the event this information is protected by the Federal Confidentiality of Alcohol and Drug Abuse Patient Records regulations: The Federal rules restrict any use of the information to criminally investigate or prosecute any alcohol or drug abuse patient.[facility] HospitalIn the event this information is protected by the Federal Confidentiality of Alcohol and Drug Abuse Patient Records regulations: The Federal rules restrict any use of the information to criminally investigate or prosecute any alcohol or drug abuse patient.[facility] HospitalIn the event this information is protected by the Federal Confidentiality of Alcohol and Drug Abuse Patient Records regulations: The Federal rules restrict any use of the information to criminally investigate or prosecute any alcohol or drug abuse patient.[facility] Reason for Visit (unrecogniz ed section and content) Reason Comments Ear Pain Pt presented with pa rent reported bilateral ear, jaw pain rated 6 x2 wks Nasal Congestion Reason Comments Urinary Problem Pt presented with donta roset (Flor) urinary frequency, urgency x1 day. Reason [...] chest hurts and wheezy x 1 week Reason Comments Sore Throat (Pharyngitis) Specialty Diagnoses / Procedures Referred By Yamile t Referred To Contact General Care Diagnoses Peritonsillar abscess Trismus Hoarseness or changing voice Neck swelling Tonsillar abscess [address] [place] [address] Phone: tel: fax: Referral ID Status Reason Start Date Expiration Date Visits Re quested Visits Authorized [id number] 1 1 Reason Comments Allergic Reaction Possible allergic re action to medication, hives, itchy redness, chests, BEATRIZ legs Reason Comments Sore Throat (Pharyngitis) Abscess Specialty Diagnoses / Procedures Referred By Contac t Referred To Contact General Care Diagnoses Peritonsillar abscess [address] [place] [address] Phone: tel: fax: Referral ID Status Reason Start Date Expiration Date Visits Re quested Visits Authorized [id number] 1 1 Reason Comments Abscess Throat Specialty Diagnoses / Procedures Referred By Contac t Referred To Contact General Care Diagnoses Peritonsillar abscess [address] [place] [address] Phone: tel: fax: Referral ID Status Reason Start Date Expiration Date Visits Re quested Visits Authorized [id number] 1 1 Reason Comments Post T and A Bleed Specialty Diagnoses / Procedures Referred By Contac t Referred To Contact General Care Diagnoses Post-tonsillectomy hemorrhage [address] [place] [address] Phone: tel: fax: Referral ID Status Reason Start Date Expiration Date Visits Re quested Visits Authorized [id number] 1 1 Care Teams (unrecognized sec tion and content) Construction Crew Member Relationship Specialty Start Date End Date Cesar Rosenthal [facility] [address] [place] [address] PCP - General 06/03/06 Construction Crew Member Relationship Specialty Start Date End Date Mitzy Fung [facility] [place] [address] PCP - General Pediatrics 06/24/22 Construction Crew Member Relationship Specialty Start Date End Date Mitzy Fung [facility] [place] [address] PCP - General Pediatrics 06/24/22 Team Status: [...] MD Primary Care Provider Active Dr. Teodoro Gracia DO Emergency Provider Active Dr. Mara Clements MD Attending Provider Active Construction Crew Member Relationship Specialty Start Date End Date Mitzy Fung MD [address] [place] [address] PCP - General 07/19/19 Team Status: Inactive [...] MD Attending Provider, Refer ring Provider Active Construction Crew Member Relationship Specialty Start Date End Date Mitzy Fung MD [address] [place] [id number] PCP - General Pediatrics 06/24/22 Construction Crew Member Relationship Specialty Start Date End Date Mitzy Fung MD [address] [place], [place] [id number] PCP - General Pediatrics 06/24/22 Construction Crew Member Relationship Specialty Start Date End Date Mitzy Fung MD [address] [place], [place] [id number] PCP - General Pediatrics 06/24/22 Team Status: Inactive Member Role Status Dates Dr. Mitzy Fung MD Primary Care Provider Active Dr. Levar Ackerman DO Emergency Provider Active Construction Crew Member Relationship Specialty Start Date End Date Mitzy Fung MD [address] [place], [place] [address] PCP - General Pediatrics 06/24/22 Construction Crew Member Relationship Specialty Start Date End Date Mitzy Fung MD [address] [place], [place] [address] PCP - General Pediatrics 06/24/22 Team Status: Inactive Member Role Status Dates Dr. Mitzy Fung MD Primary Care Provider Active Dr. Levar Ackerman DO Attending Provider, Emergency P rovider Active Team Status: Inactive Member Role Status Dates Dr. Mtizy Fung MD Primary Care Provider Active Dr. Alexis Farfan MD Emergency Provider Active Team Status: Inactive Member Role Status Dates Dr. Mitzy Fung MD Primary Care Provider Active Dr. Alexis Farfan MD Attending Provider, Emergency Provi sandy Active Team Status: Inactive Member Role Status Dates Dr. Mitzy Fung MD Primary Care Provider Active Dr. Leny Ruano MD Attending Provider, Referring P rovider Active Construction Crew Member Relationship Specialty Start Date End Date Mitzy Fung MD [address] [place], [place] [id number] PCP - General Pediatrics 06/24/22 Construction Crew Member Relationship Specialty Start Date End Date Mitzy Fung MD [address] [facility] [address] PCP - General Pediatrics 06/24/22 Construction Crew Member Relationship Specialty Start Date End Date Mitzy Fung MD [address] [place] [address] PCP - General 07/19/19 Team Status: Active [...] February 23, 2025 End: February 23, 2025 Team Status: Inactive Member Role/Relationship Status Dates Dr. Mitzy Fung MD Primary Care Provider Active Start: February 21, 2025 Dr. Leny Ruano MD Attending Provider Active Start: February 21, 2025 Team Status: Inactive Member [...] February 23, 2025 End: February 23, 2025 Team Status: Active Member Role/Relationship Status Dates Dr. Mitzy Fung MD Primary Care Provider Active Start: March 13, 2025 Javierblanca Penny , PA Attending Provider Active Star t: March 13, 2025 Javier Penny , PA Referring Provider Active Star t: March 13, 2025 Team Status: Inactive Member Role/Relationship Status Dates Dr. Mitzy Fung MD Primary Care Provider Active Start: March 17, 2025 End: March 17, 2025 Dr. Jose D Chua DO Emergency Provider Active Start : March 17, 2025 End: March 17, 2025 Team Status: Inactive Member Role/Relationship Status Dates Dr. Mitzy Fung MD Primary Care Provider Active Start: March 13, 2025 End: March 13, 2025 Javier Penny , PA Attending Provider Active Star t: March 13, 2025 End: March 13, 2025 Javier Penny , PA Referring Provider Active Star t: March 13, 2025 End: March 13, 2025 Construction Crew Member Relationship Specialty Start Date End Date Mitzy Fung MD [address] [place] [address] PCP - General 07/19/19 Construction Crew Member Relationship Specialty Start Date End Date Mitzy Fung MD [address] [place] [address] PCP - General Pediatrics 06/24/22 Construction Crew Member Relationship Specialty Start Date End Date Mitzy Fung MD [address] [place] [address] PCP - General 07/19/19 Construction Crew Member Relationship Specialty Start Date End Date Mitzy Fung MD [address] [place] [address] PCP - General 07/19/19 Construction Crew Member Relationship Specialty Start Date End Date Mitzy Fung MD [address] [place] [address] PCP - General 07/19/19 Goals (unrecognized section and content) Goals may [...] section and content) DATE CREATED AUTHOR 04/26/2024 [facility] DATE CREATED AUTHOR AUTHOR'S ORGANIZ ATION 05/05/2024 [facility] ([place] DATE CREATED AUTHOR AUTHOR'S ORGANIZ ATION 03/30/2025 [facility] DATE CREATED AUTHOR AUTHOR'S ORGANIZ ATION 05/07/2025 [facility] DATE CREATED AUTHOR AUTHOR'S ORGANIZ ATION 06/27/2025 [facility] Scheduled Active and Recently Administ ered Medications (unrecognized section and content) Medication Order 03/20/2025 03/21/2025 03/22/2025 cefTRIAXone in D5W (ROCEPHIN) IV 2,000 mg 2,000 mg (34.2 mg/kg/DAY), Intravenous, EVERY 24 HOURS EXACT, 90 doses, First dose on 03/20/25 at 2100, Last dose on Thu06/17/25 at 2100, Administer over 30 Minutes, Do NOT y-site w/calcium containing fluids (ie LR, TPN)s 2211 (New Bag - Provider: Shivam Murdock RN)2241 (Stopped - Provider: Shivam Murdock RN) 2213 (New Bag - Provider: Michael Saab RN)2245 (Stopped - Provider: Regi Bone RN) Clindamycin in D5W (CLEOCIN) IV 600 mg 600 mg (30.8 mg/kg/DAY), Intravenous, at 100 mL/hr, EVERY 8 HOURS EXACT, 270 doses, First dose (after last modification) on Thu03/20/25 at 2100, Last dose on Thu06/18/25 at 1300, Administer over 30 Minutes 2103 (New Bag - Provider: Shivam Murdock RN)2118 (Paused - Provider: Shivam Murdock, RN)2129 (Restarted - Provider: Shivam Murdock, RN)2133 (Stopped - Provider: Shivam Murdock RN) 0458 (New Bag - Provider: Shivam Murdock RN)0501 (Dose/Rate Verification - Provider: Shivam Murdock RN)0528 (Stopped - Provider: Shivam Murdock, RN)1229 (New Bag - Provider: Demetra Ramirez, PAM)1301 (Stopped - Provider: Demetra E Ramirez, RN)2116 (New Bag - Provider: Michael Saab RN)2146 (Stopped - Provider: Michael Saab, RN) 0451 (New Bag - Provider: Regi Bone RN)0500 (Dose/Rate Verification - Provider: Regi Bone RN)0540 (Stopped - Provider: Regi Bone, PAM) DexAMETHasone (DECADRON) 10 mg (COMPLETED) 10 mg (0.173 mg/kg/DOSE), Intravenous, ONCE, 1 dose, On Thu03/20/25 at 1700, Infuse over 3 minutes 1651 (Given - Provider: Angi Azevedo, PAM) docusate sodium (COLACE) capsule 100 mg 100 mg (1.71 mg/kg/DAY), Oral, DAILY, 90 doses, First dose on Thu03/22/25 at 0900, Last dose on Thu06/19/25 at 0900 0919 (Given - Provider: Maryan Escamilla, PAM) iopamidol (ISOVUE-300) 61 % injection 115.6 mL (COMPLETED) 115.6 mL (2 ml/kg/DOSE 57.8 kg), Intravenous, ONCE, 1 dose, On Thu03/20/25 at 1445 1545 (Given - Provider: Floridalma Otero) ketorolac (TORADOL) 30 MG/ML Injection 30 mg (COMPLETED) 30 mg (0.519 mg/kg/DOSE), Intravenous, ONCE, 1 dose, On Thu03/20/25 at 1445 1445 (Given - Provider: Angi Azevedo, PAM) Linezolid in D5W (ZYVOX) IV 600 mg (CANCELED) 600 mg (20.8 mg/kg/DAY), Intravenous, EVERY 12 HOURS, 180 doses, First dose on Thu03/21/25 at 0430, Last dose on Thu06/18/25 at 1630, Administer over 60 Minutes 1622 (New Bag - Provider: Ken Sims RN)1814 (Stopped - Provider: Demetra Ramirez RN) NaCl 0.9% IV (COMPLETED) 1,000 mL (17.3 ml/kg/DOSE), Intravenous, ONCE, 1 dose, On Thu03/20/25 at 1445, Administer over 61 Minutes 1444 (New Bag - Provider: Angi Azevedo, RN)1545 (Stopped - Provider: Angi Azevedo RN) NaCl 0.9% PosiFlush 2 mL 2 mL EVERY 8 HOURS (0.103 mL/kg/DAY), Intravenous, at 0-999 mL/hr, First dose on Thu03/20/25 at 2000, For 90 days 2105 (Push - Provider: Shivam Murdock, RN) 0030 (Not Given - Provider: Shivam Murdock RN - Reason: Other - Comment: flushed at 2300)0840 (Not Given - Provider: Demetra Ramirez RN - Reason: Other)1616 (Not Given - Provider: Demetra Ramirez RN - Reason: Other) 0031 (Not Given - Provider: Regi Bone RN - Reason: Other)0823 (New Bag - Provider: Maryan Escamilla RN) PRN Medication Order 03/20/2025 03/21/2025 03/22/2025 acetaminophen (TYLENOL) 160 MG/5ML suspension 640 mg 640 mg (10.9 mg/kg/DOSE, rounded from 877.5 mg = 15 mg/kg/DOSE 58.5 kg), Oral, EVERY 6 HOURS PRN, Starting on Thu03/20/25 at 1912, Until Thu03/22/25 at 1247, Mild Pain = Pain Score 1-3, Moderate Pain = Pain Score 4-6, Shake Well. Do not administer acetaminophen within 4 hours of Tylenol-containing narcotics. 0055 (Given - Provid er: Regi Bone RN) NaCl 0.9 % 10 mL 10 mL PRN (0.171 ml/kg/DOSE), Intravenous, at 0-999 mL/hr, Line Care, For mixture of medications, Starting on Thu03/20/25 at 1926, For 90 days, For mixture of medications NaCl 0.9 % IV Flush bag 30 mL 30 mL PRN (0.513 ml/kg/DOSE), Intravenous, at 0-999 mL/hr, Flush IV line after medication IVPB bag if given., Starting on Thu03/20/25 at 1926, For 90 days, Flush IV line after medication IVPB bag if given. 1302 (New Bag - Provider: Demetra Ramirez RN)1323 (Stopped - Provider: Regi Bone RN) NaCl 0.9% PosiFlush 2 mL 2 mL PRN (0.0342 ml/kg/DOSE), Intravenous, at 0-999 mL/hr, Line Care, Starting on Thu03/20/25 at 1926, For 90 days 0550 (Push - Provider: Shivam Murdock, PAM) NaCl 0.9% PosiFlush 5 mL 5 mL PRN (0.0855 ml/kg/DOSE), Intravenous, at 0-999 mL/hr, Line Care, Starting on Thu03/20/25 at 1926, For 90 days, Central Line. sterile water injection 10 mL 10 mL (0.171 ml/kg/DOSE), Intravenous, PRN, Starting on Thu03/20/25 at 1926, Until Thu03/22/25 at 1247, For mixture of medications, For mixture of medications Scheduled Medication Order 06/11/2025 06/12/2025 06/13/2025 acetaminophen (TYLENOL) tablet 1,000 mg 1,000 mg (71.4 mg/kg/DAY), Oral, EVERY 6 HOURS, 360 doses, First dose (after last modification) on Thu06/12/25 at 2000, Last dose on Thu09/10/25 at 1530 2018 (Given - Provider: Pili Escobar RN) 0255 (Not Given - Provider: Pili Escobar RN - Reason: Patient/family refused - Comment: mom asked not to wake patient up)0928 (Given - Provider: Bernice Thompson RN - Comment: Patient NPO- hold off per provider)1700 (Not Given - Provider: Susana Sanchez RN - Reason: Other) Beclomethasone Diprop (QVAR RediHaler) 40 mcg Redihaler 2 Puff 2 Puff, Inhalation, 2 TIMES DAILY, 180 doses, First dose on Thu06/12/25 at 2100, Last dose on Thu09/10/25 at 0900, Rinse Mouth with water (without swallowing) or brush teeth after inhalation OP SIG:Inhale 2 Puffs into the lungs 2 times daily 2018 (Given - Provider: Pili Escobar RN) 0814 (Not Given - Provider: Susana Sanchez RN - Reason: Patient/family refused) cetirizine (ZyrTEC) tablet 10 mg 10 mg (0.179 mg/kg/DAY), Oral, DAILY, 89 doses, First dose on Thu06/12/25 at 2000, Last dose on Thu09/08/25 at 0900, OP SIG:Take 1 Tablet (10 mg) by mouth daily 2018 (Given - Provider: Pili Escobar RN) 0928 (Given - Provider: Bernice Thompson RN - Comment: Patient NPO- hold off per provider) Clindamycin in D5W (CLEOCIN) IV 600 mg (COMPLETED) 600 mg (10.8 mg/kg/DOSE), Intravenous, at 100 mL/hr, ONCE, 1 dose, On Thu06/12/25 at 1430, Administer over 30 Minutes 1506 (New Bag - Provider: Camilla Mao RN)1626 (Stopped - Provider: Lucero Stern RN) Clindamycin in D5W (CLEOCIN) IV 600 mg 600 mg (32.1 mg/kg/DAY), Intravenous, at 100 mL/hr, EVERY 8 HOURS, 270 doses, First dose (after last modification) on Thu06/13/25 at 0000, Last dose on Thu09/10/25 at 1600, Administer over 30 Minutes 0019 (New Bag - Provider: Pili Escobar RN)0049 (Stopped - Provider: Pili Escobar RN)0825 (New Bag - Provider: Bernice Thompson RN)0855 (Stopped - Provider: Bernice Thompson RN)1604 (New Bag - Provider: Susana Sanchez RN)1634 (Stopped - Provider: Susana Sanchez RN) DexAMETHasone (DECADRON) 8 mg (COMPLETED) 8 mg (0.144 mg/kg/DOSE), Intravenous, ONCE, 1 dose, On Thu06/12/25 at 1400, Infuse over 3 minutes 1412 (Given - Provider: Lakeisha Carlos RN) FLUoxetine (PROzac) capsule 10 mg 10 mg, Oral, DAILY, 90 doses, First dose on Thu06/13/25 at 0900, Last dose on Thu09/10/25 at 0900 0928 (Given - Provid er: Bernice Thompson RN - Comment: Patient NPO- hold off per provider) iopamidol (ISOVUE-300) 61 % injection 111 mL (COMPLETED) 111 mL (2 ml/kg/DOSE 55.5 kg), Intravenous, ONCE, 1 dose, On Thu06/12/25 at 1400 1447 (Given - Provider: Liam Llamas) morphine 10 MG/ML injection 4 mg (COMPLETED) 4 mg (0.0721 mg/kg/DOSE), Intravenous, ONCE, 1 dose, On Thu06/12/25 at 1400 1351 (Given - Provider: Lakeisha Carlos, PAM) NaCl 0.9% IV (COMPLETED) 1,000 mL (18 ml/kg/DOSE), Intravenous, ONCE, 1 dose, On Thu06/12/25 at 1445, Administer over 61 Minutes 1432 (New Bag - Provider: Camilla Mao RN)1626 (Stopped - Provider: Lucero Stern RN) NaCl 0.9% PosiFlush 2 mL 2 mL EVERY 8 HOURS (0.107 mL/kg/DAY), Intravenous, at 0-999 mL/hr, First dose on Thu06/12/25 at 1830, For 90 days 1858 (Push - Provider: Bernice Thompson RN) 0022 (Not Given - Provider: Pili Escobar RN - Reason: Running IV fluids)0940 (Not Given - Provider: Bernice Thompson RN - Reason: Running IV fluids)1700 (Due) Continuous Medication Order 06/11/2025 06/12/2025 06/13/2025 Dextrose 5 % NaCl 0.9% KCl 20 mEq/L IV (CANCELED) CONTINUOUS, Intravenous, at 96 mL/hr, Starting on Thu06/12/25 at 1830, For 90 days 1832 (New Bag - Provider: Bernice Thompson, PAM)2100 (Dose/Rate Verification - Provider: Pili Escobar RN)2200 (Dose/Rate Verification - Provider: Pili Escobar RN)2300 (Dose/Rate Verification - Provider: Pili Escobar RN) 0000 (Dose/Rate Verification - Provider: Pili Escobar RN)0100 (Dose/Rate Verification - Provider: Pili Escobar RN)0200 (Dose/Rate Verification - Provider: Pili Escobar RN)0300 (Dose/Rate Verification - Provider: Pili Escobar, RN)0355 (KVO - Provider: Pili Escobar RN)0400 (Dose/Rate Verification - Provider: Pili Escobar RN)0401 (Rate/Dose Change - Provider: Pili Escobar RN)0403 (Stopped - Provider: Pili Escobar RN)0404 (New Bag - Provider: Merari Ambrocio RN)0500 (Dose/Rate Verification - Provider: Pili Escobar RN)0600 (Dose/Rate Verification - Provider: Pili Escobar, RN)0700 (Dose/Rate Verification - Provider: Pili Escobar, PAM)0825 (Stopped - Provider: Bernice Thompson RN) PRN Medication Order 06/11/2025 06/12/2025 06/13/2025 albuterol (VENTOLIN) 0.083% nebulizer solution 2.5 mg 2.5 mg (0.0446 mg/kg/DOSE), Nebulization, EVERY 4 HOURS PRN, Starting on Thu06/12/25 at 1840, Until Thu06/13/25 at 1926, Wheezing, Shortness of Breath, Cough, OP SIG:Use 3 mL (2.5 mg) by nebulization every 4 hours as needed for Wheezing or Shortness of Breath (Cough) morphine 10 MG/ML injection 4 mg 4 mg (0.0714 mg/kg/DOSE), Intravenous, EVERY 3 HOURS PRN, Starting on Thu06/12/25 at 1809, Until Thu06/13/25 at 1926, Severe Pain = Pain Score 7-10 NaCl 0.9 % 10 mL 10 mL PRN (0.179 ml/kg/DOSE), Intravenous, at 0-999 mL/hr, Line Care, For mixture of medications, Starting on Thu06/12/25 at 1809, For 90 days, For mixture of medications NaCl 0.9 % IV Flush bag 30 mL 30 mL PRN (0.536 ml/kg/DOSE), Intravenous, at 0-999 mL/hr, Flush IV line after medication IVPB bag if given., Starting on Thu06/12/25 at 1809, For 90 days, Flush IV line after medication IVPB bag if given. 903 (New Bag - Prov ider: Bernice Thompson RN)923 (Stopped - Provider: Bernice Thompson RN) NaCl 0.9% PosiFlush 2 mL 2 mL PRN (0.0357 ml/kg/DOSE), Intravenous, at 0-999 mL/hr, Line Care, Starting on Thu06/12/25 at 1809, For 90 days NaCl 0.9% PosiFlush 5 mL 5 mL PRN (0.0893 ml/kg/DOSE), Intravenous, at 0-999 mL/hr, Line Care, Starting on Thu06/12/25 at 1809, For 90 days, Central Line. oxyCODONE (immediate release) (ROXICODONE) tablet 5 mg 5 mg (0.0893 mg/kg/DOSE), Oral, EVERY 4 HOURS PRN, Starting on Thu06/12/25 at 1809, Until Thu06/13/25 at 1926, Moderate Pain = Pain Score 4-6 propranolol (INDERAL) tablet 10 mg 10 mg (0.179 mg/kg/DOSE), Oral, 2 TIMES DAILY PRN, Starting on Thu06/12/25 at 1841, Until Thu06/13/25 at 1926, Other, anxiety, OP SIG:Take 1 Tablet (10 mg) by mouth 2 times daily as needed for Other (anxiety) sterile water injection 10 mL 10 mL (0.179 ml/kg/DOSE), Intravenous, PRN, Starting on Thu06/12/25 at 1809, Until Thu06/13/25 at 1926, For mixture of medications, For mixture of medications Scheduled Medication Order 06/14/2025 06/15/2025 06/16/2025 acetaminophen (TYLENOL) 160 MG/5ML suspension 640 mg 640 mg (43.5 mg/kg/DAY, rounded from 882 mg = 15 mg/kg/DOSE 58.8 kg), Oral, EVERY 6 HOURS, 360 doses, First dose (after last modification) on Natalie 06/15/25 at 1800, Last dose on Thu09/13/25 at 1400, Shake Well. Do not administer acetaminophen within 4 hours of Tylenol-containing narcotics. 1901 (Given - Provider: Bernice Thompson, PAM) 0223 (Given - Provider: Stefany Schroeder RN)0756 (Given - Provider: Jesus Ruiz, PAM) acetaminophen (TYLENOL) 325 MG tablet 650 mg (CANCELED) 650 mg (44.2 mg/kg/DAY), Oral, EVERY 6 HOURS, First dose (after last reorder) on Natalie 06/15/25 at 0000, Until Discontinued 0017 (Given - Provider: Stefany Schroeder RN)0608 (Given - Provider: Stefany Schroeder RN)1147 (MAR Hold - Provider: User Epic - Reason: Transfer to a Procedural area)1200 (Automatically Held - Provider: User Epic)1303 (MAR Unhold - Provider: Claudia Chi RN)1411 (Not Given - Provider: Bernice Thompson RN - Reason: Patient/family refused) acetaminophen (TYLENOL) tablet 825 mg (COMPLETED) 825 mg (13.7 mg/kg/DOSE), Oral, ONCE, 1 dose, On Thu06/14/25 at 1630, Pre-op 1635 (Given - Provider: Namrata Blair RN) Clindamycin in D5W (CLEOCIN) IV 600 mg (CANCELED) 600 mg (32.1 mg/kg/DAY), Intravenous, at 100 mL/hr, EVERY 8 HOURS EXACT, 9 doses, First dose on Thu06/14/25 at 1345, Last dose on Thu06/17/25 at 0545, Administer over 30 Minutes 1343 (New Bag - Provider: Alexus Pate RN)1413 (Stopped - Provider: Alexus Pate RN) Clindamycin in D5W (CLEOCIN) IV 600 mg 600 mg (40.8 mg/kg/DAY), Intravenous, at 100 mL/hr, EVERY 6 HOURS EXACT, 360 doses, First dose (after last reorder) on Thu06/14/25 at 2000, Last dose on Thu09/12/25 at 1400, Administer over 30 Minutes 2022 (New Bag - Provider: Alina Petersen RN)2111 (Stopped - Provider: Alina Petersen RN) 204 (New Bag - Provider: Stefany Schroeder RN)020 (Dose/Rate Verification - Provider: Stefany Schroeder RN)0235 (Stopped - Provider: Stefany Schroeder, PAM)0829 (New Bag - Provider: Bernice Thompson, PAM)0850 (Paused - Provider: Tory Espinoza RN)0857 (Restarted - Provider: Tory Espinoza, RN)0900 (Dose/Rate Verification - Provider: Tory Espinoza, RN)0910 (Stopped - Provider: Tory Espinoza, RN)1147 (OCT Hold - Provider: User Epic - Reason: Transfer to a Procedural area)1303 (OCT Unhold - Provider: Claudia Chi RN)1440 (New Bag - Provider: Bernice Thompson RN)1500 (Dose/Rate Verification - Provider: Bernice Thompson RN)1510 (Stopped - Provider: Tory Espinoza RN)2036 (New Bag - Provider: Stefany Schroeder RN)2106 (Stopped - Provider: Stefany Schroeder RN) 0224 (New Bag - Provider: Stefany Schroeder RN)0226 (Dose/Rate Verification - Provider: Stefany Schroeder RN)0254 (Stopped - Provider: Stefany Schroeder RN)0753 (New Bag - Provider: Jesus Ruiz, PAM)0759 (Stopped - Provider: Jesus Ruiz, PAM) ibuprofen (ADVIL; MOTRIN) 100 MG/5ML suspension 580 mg 580 mg (39.5 mg/kg/DAY, rounded from 588 mg = 10 mg/kg/DOSE 58.8 kg), Oral, EVERY 6 HOURS EXACT, 360 doses, First dose on Natalie 06/15/25 at 1530, Last dose on Thu09/13/25 at 1100 1724 (Given - Provider: Tory Espinoza RN - Comment: patient/family refused at scheduled time)2248 (Given - Provider: Stefany Schroeder RN) 0523 (Given - Provider: Stefany Schroeder RN)1216 (Not Given - Provider: Jesus Ruiz RN - Reason: Patient not available - Comment: patinet discharged) iopamidol (ISOVUE-300) 61 % injection 75 mL (COMPLETED) 75 mL (1.28 ml/kg/DOSE), Intravenous, ONCE, 1 dose, On Thu06/14/25 at 1800 1814 (Given - Provider: Alis Sloan, RT(CT)) Lactated Ringers IV Bolus 500 mL (COMPLETED) 500 mL (8.93 ml/kg/DOSE), Intravenous, ONCE, 1 dose, On Thu06/14/25 at 1330, Administer over 61 Minutes 1319 (New Bag - Provider: Alexus Pate RN)1421 (Stopped - Provider: Flor Banks RN) morphine 2 MG/ML injection 2 mg (COMPLETED) 2 mg (0.0357 mg/kg/DOSE), Intravenous, ONCE, 1 dose, On Thu06/14/25 at 1330 1319 (Given - Provider: Alexus Pate RN) NaCl 0.9% PosiFlush 2 mL 2 mL EVERY 8 HOURS (0.102 mL/kg/DAY), Intravenous, at 0-999 mL/hr, First dose on Thu06/14/25 at 1800, For 90 days 1848 (Push - Provider: Jaye Jin RN) 0053 (Not Given - Provider: Stefany Schroeder RN - Reason: Running IV fluids)0848 (Push - Provider: Tory Espinoza RN - Comment: x2)1147 (MAR Hold - Provider: User Epic - Reason: Transfer to a Procedural area)1303 (MAR Unhold - Provider: Claudia Chi RN)1700 (Not Given - Provider: Bernice Thompson RN - Reason: Running IV fluids) 0048 (Not Given - Provider: Stefany Schroeder RN - Reason: Running IV fluids)0917 (Not Given - Provider: Jesus Ruiz RN - Reason: Running IV fluids) oxyCODONE (immediate release) (ROXICODONE) solution (COMPLETED) 5 mg (0.085 mg/kg/DOSE), Oral, ONCE, 1 dose, On Thu06/14/25 at 1730 1657 (Given - Provider: Jaye Jin RN) Continuous Medication Order 06/14/2025 06/15/2025 06/16/2025 Dextrose 5 % NaCl 0.9% KCl 20 mEq/L IV (CANCELED) CONTINUOUS, Intravenous, at 100 mL/hr, Starting on Thu06/14/25 at 1900, For 90 days 1852 (New Bag - Provider: Jaye Jin RN)1999 (Dose/Rate Verification - Provider: Alina Petersen RN)2022 (Paused - Provider: Alina Petersen, PAM)2111 (Restarted - Provider: Alina Petersen RN)2119 (Dose/Rate Verification - Provider: Alina Petersen RN)221 (Rate/Dose Change - Provider: Alina Petersen RN)222 (Dose/Rate Verification - Provider: Alina Petersen RN)2245 (Dose/Rate Verification - Provider: Alina Petersen RN)2300 (Dose/Rate Verification - Provider: Alina Petersen RN) 0259 (Paused - Provider: Stefany Schroeder RN)0259 (Paused - Provider: Stefany Schroeder RN)0329 (Restarted - Provider: Stefany Schroeder RN)0341 (Dose/Rate Verification - Provider: Stefany Schroeder RN)0504 (Dose/Rate Verification - Provider: Stefany Schroeder RN)0610 (New Bag - Provider: Stefany Schroeder RN)0618 (Dose/Rate Verification - Provider: Stefany Schroeder RN)0708 (Dose/Rate Verification - Provider: Stefany Schroeder RN)0800 (Dose/Rate Verification - Provider: Tory Espinoza RN)0826 (Paused - Provider: Tory Espinoza, PAM)0936 (Paused - Provider: Bernice Thompson, PAM)0936 (Restarted - Provider: Bernice Thompson, PAM)1000 (Dose/Rate Verification - Provider: Bernice Thompson, RN)1034 (Stopped - Provider: Bernice Thompson, RN)1147 (MAR Hold - Provider: User Epic - Reason: Transfer to a Procedural area)1303 (MAR Unhold - Provider: Claudia Chi RN)1550 (New Bag - Provider: Bernice Thompson, PAM)1550 (Paused - Provider: Bernice Thompson RN)1616 (Restarted - Provider: Bernice Thompson, PAM)1621 (Paused - Provider: Bernice Thompson, PAM)1627 (Paused - Provider: Bernice Thompson, PAM)1627 (Paused - Provider: Bernice Thompson, RN)1628 (Restarted - Provider: Bernice Thompson, RN)1700 (Dose/Rate Verification - Provider: Bernice Thompson RN)1800 (Dose/Rate Verification - Provider: Bernice Thompson, RN)1900 (Dose/Rate Verification - Provider: Bernice Thompson, RN)193 (Paused - Provider: Stefany Schroeder RN)1952 (Restarted - Provider: Stefany Schroeder RN)1952 (Dose/Rate Verification - Provider: Stefany Schroeder RN)1953 (Paused - Provider: Stefany Schroeder RN)1953 (Paused - Provider: Stefany Schroeder RN)1953 (Paused - Provider: Stefany Schroeder RN)2008 (Restarted - Provider: Stefany Schroeder RN)221 (Dose/Rate Verification - Provider: Stefany Schroeder RN)2254 (Stopped - Provider: Stefany Schroeder RN)2312 (Restarted - Provider: Stefany Schroeder RN)2313 (Dose/Rate Verification - Provider: Stefany Schroeder RN) 0037 (Dose/Rate Verification - Provider: Stefany Schroeder RN)0226 (Dose/Rate Verification - Provider: Stefany Schroeder RN)0302 (Dose/Rate Verification - Provider: Stefany Schroeder RN)0316 (Stopped - Provider: Stefany Schroeder RN)0316 (New Bag - Provider: Stefany Schroeder RN)0618 (Dose/Rate Verification - Provider: Stefany Schroeder RN)0759 (Stopped - Provider: Jesus Ruiz RN) Lactated Ringers IV (CANCELED) CONTINUOUS, Intravenous, at 75 mL/hr, Starting on Thu06/14/25 at 1445, For 90 days 1425 (Restarted from Bag - Provider: Flor Banks, RN)1739 (Stopped - Provider: Jaye Jin, RN) PRN Medication Order 06/14/2025 06/15/2025 06/16/2025 fentaNYL (SUBLIMAZE) injection 50 mcg (CANCELED) 50 mcg (0.877 mcg/kg/DOSE), Intravenous, EVERY 5 MIN PRN, 3 doses, Starting on Natalie 06/15/25 at 1304, Until Natalie 06/15/25 at 1356, Severe Pain = Pain Score 7-10, Use IV narcotic prior to using oxycodone when not tolerating oral intake., Call anesthesiologist before giving third dose of pain medication, PACU 1306 (Given - Provider: Claudia Chi, RN) morphine 2 MG/ML injection 2 mg 2 mg (0.034 mg/kg/DOSE), Intravenous, EVERY 4 HOURS PRN, Starting on Thu06/14/25 at 1830, Until Thu06/16/25 at 1505, Severe Pain = Pain Score 7-10 2220 (Given - Provider: Alina Petersen, PAM) 0849 (Given - Provider: Tory Espinoza RN)1147 (OCT Hold - Provider: User Epic - Reason: Transfer to a Procedural area)1303 (MAR Unhold - Provider: Claudia Chi, PAM) NaCl 0.9 % 10 mL 10 mL PRN (0.17 ml/kg/DOSE), Intravenous, at 0-999 mL/hr, Line Care, For mixture of medications, Starting on Thu06/14/25 at 1715, For 90 days, For mixture of medications 2220 (Given - Provider: Alina Petersen, PAM) 1147 (MAR Hold - Provider: User Epic - Reason: Transfer to a Procedural area)1303 (MAR Unhold - Provider: Claudia Chi, PAM) NaCl 0.9 % IV Flush bag 30 mL 30 mL PRN (0.51 ml/kg/DOSE), Intravenous, at 0-999 mL/hr, Flush IV line after medication IVPB bag if given., Starting on Thu06/14/25 at 1715, For 90 days, Flush IV line after medication IVPB bag if given. 1147 (MAR Hold - Provider: User Epic - Reason: Transfer to a Procedural area)1303 ([facility] Unhold - Provider: Claudia Chi RN) NaCl 0.9% PosiFlush 2 mL 2 mL PRN (0.034 ml/kg/DOSE), Intravenous, at 0-999 mL/hr, Line Care, Starting on Thu06/14/25 at 1715, For 90 days 1035 (Push - Provider: Tory Espinoza RN)1147 ([facility] Hold - Provider: User Epic - Reason: Transfer to a Procedural area)1303 (MAR Unhold - Provider: Claudia Chi RN)1625 (Push - Provider: Jaye Jin RN) NaCl 0.9% PosiFlush 5 mL 5 mL PRN (0.085 ml/kg/DOSE), Intravenous, at 0-999 mL/hr, Line Care, Starting on Thu06/14/25 at 1715, For 90 days, Central Line. 1147 ([facility] Hold - Provider: User Epic - Reason: Transfer to a Procedural area)1303 ([facility] Unhold - Provider: Claudia Chi RN) oxyCODONE (immediate release) (ROXICODONE) tablet 5 mg 5 mg (0.085 mg/kg/DOSE), Oral, EVERY 6 HOURS PRN, Starting on Thu06/14/25 at 1826, Until Thu06/16/25 at 1505, Moderate Pain = Pain Score 4-6 2300 (Not Given - Provider: Alina Petersen RN - Reason: Patient/family refused - Comment: Patient sleeping post-Morphine administration) 1147 ([facility] Hold - Provider: User Epic - Reason: Transfer to a Procedural area)1303 ([facility] Unhold - Provider: Claudia Chi RN) oxymetazoline (AFRIN) 0.05 % nasal spray (CANCELED) PRN, Starting on Natalie 06/15/25 at 1211, Until Natalie 06/15/25 at 1251, Intra-op 1211 (Given - Provider: Guy Novak MD) sterile water injection 10 mL 10 mL (0.17 ml/kg/DOSE), Intravenous, PRN, Starting on Thu06/14/25 at 1715, Until Thu06/16/25 at 1505, For mixture of medications, For mixture of medications 1147 ([facility] Hold - Provider: User Epic - Reason: Transfer to a Procedural area)1303 ([facility] Unhold - Provider: Claudia Chi, RN) Scheduled Medication Order 06/17/2025 06/18/2025 06/19/2025 acetaminophen (TYLENOL) 160 MG/5ML liquid 640 mg 640 mg (45.4 mg/kg/DAY, rounded from 650 mg), Oral, EVERY 6 HOURS EXACT, 360 doses, First dose on 06/17/25 at 1300, Last dose on Thu09/15/25 at 0800, Maximum dose of acetaminophen is 4000 mg from all sources in 24 hours 1247 (Given - Provider: Sandie Robles, PAM)1845 (Given - Provider: Janice Cornelius RN) 0156 (Given - Provider: Samy Peck RN)0845 (Given - Provider: Sandie Robles RN)1423 (Given - Provider: Sandie Robles, PAM)1951 (Given - Provider: Shivam Irwin RN) 0128 (Given - Provider: Dilma Rodriguez, PAM)0858 (Given - Provider: Tara Watkins, PAM) acetaminophen (TYLENOL) 325 MG tablet 650 mg (CANCELED) 650 mg (46.1 mg/kg/DAY), Oral, EVERY 6 HOURS, 360 doses, First dose on 06/17/25 at 0630, Last dose on Thu09/15/25 at 0000 0640 (Given - Provider: Samy Peck, PAM) cetirizine (ZyrTEC) tablet 10 mg 10 mg (0.177 mg/kg/DAY), Oral, DAILY, 90 doses, First dose on 06/17/25 at 0900, Last dose on Thu09/14/25 at 0900, OP SIG:Take 1 Tablet (10 mg) by mouth daily 0824 (Given - Provider: Vi Jiménez RN) 0845 (Given - Provider: Sandie Robles RN) 0858 (Given - Provider: Tara Watkins RN) clindamycin (CLEOCIN) capsule 600 mg 600 mg (31.9 mg/kg/DAY), Oral, EVERY 8 HOURS EXACT, 18 doses, First dose on Sat 25 at 0800, Last dose on Thu06/23/25 at 0100 0853 (Given - Provider: Vi Jiménez RN)1736 (Given - Provider: Sandie Robles RN) 0127 (Given - Provider: Samy Peck RN)0845 (Given - Provider: Sandie Robles RN)1645 (Given - Provider: Sandie Robles RN) 0116 (Given - Provider: Dilma Rodriguez RN)0858 (Given - Provider: Tara Watkins, PAM) FLUoxetine (PROzac) capsule 10 mg 10 mg, Oral, DAILY, 90 doses, First dose on Thu06/17/25 at 0900, Last dose on Thu09/14/25 at 0900 0824 (Given - Provider: Vi Jiménez RN) 0845 (Given - Provider: Sandie Robles RN) 0858 (Given - Provider: Tara Watkins RN) ibuprofen (ADVIL; MOTRIN) 100 MG/5ML suspension 580 mg 580 mg (40.7 mg/kg/DAY, rounded from 570 mg = 10 mg/kg/DOSE 57 kg [place] weight), Oral, EVERY 6 HOURS EXACT, 360 doses, First dose on Thu06/17/25 at 1030, Last dose on Thu09/15/25 at 0500, Alternate with tylenol 1032 (Given - Provider: Vi Jiménez RN)1736 (Given - Provider: Sandie Rboles RN)2317 (Given - Provider: Samy Peck, PAM) 0505 (Not Given - Provider: Samy Peck, PAM - Reason: See Comments - Comment: deffering oral meds for nausea)1110 (Given - Provider: Sandie Robles RN)1645 (Given - Provider: Sandie Robles RN)2309 (Given - Provider: Shivam Irwin, PAM) 0433 (Given - Provider: Shivam Irwin, RN) morphine 10 MG/ML injection 4 mg (COMPLETED) 4 mg (0.0709 mg/kg/DOSE), Intravenous, ONCE, 1 dose, On 06/17/25 at 0345 0347 (Given - Provider: Abbey Dejesus, PAM) NaCl 0.9% IV (COMPLETED) 1,000 mL (17.7 ml/kg/DOSE), Intravenous, ONCE, 1 dose, On 06/17/25 at 0330, Administer over 61 Minutes 0320 (New Bag - Provider: Abbey Dejesus, RN)0440 (Stopped - Provider: Abbey Dejesus, RN) NaCl 0.9% PosiFlush 2 mL 2 mL EVERY 8 HOURS (0.106 mL/kg/DAY), Intravenous, at 0-999 mL/hr, First dose on 06/17/25 at 0630, For 90 days 0640 (Push - Provider: Samy Peck RN)1737 (Push - Provider: Sandie Robles RN) 0127 (Push - Provider: Samy Peck RN)0849 (Push - Provider: Sandie Robles RN)1648 (Push - Provider: Sandie Robles RN)2305 (Push - Provider: Shivam Irwin, PAM) 0859 (New Bag - Provider: Tara Watkins, PAM) ondansetron (ZOFRAN) injection 4 mg (COMPLETED) 4 mg (0.0709 mg/kg/DOSE), Intravenous, ONCE, 1 dose, On 06/17/25 at 0400 0347 (Given - Provider: Abbey Dejesus, PAM) prochlorperazine (COMPAZINE) injection 2.5 mg (COMPLETED) 2.5 mg (0.0443 mg/kg/DOSE), Intravenous, ONCE, 1 dose, On 06/18/25 at 0430 0412 (Given - Provider: Jennifer Trevizo, PAM) Tranexamic acid 100mg/ml oral inhalation (COMPLETED) 500 mg (8.87 mg/kg/DOSE), Inhalation, ONCE, 1 dose, On 06/17/25 at 0330, Administer over 15 Minutes 0333 (Given - Provider: Abbey Dejesus, RN) PRN Medication Order 06/17/2025 06/18/2025 06/19/2025 diphenhydrAMINE (BENADRYL) injection 56.5 mg 56.5 mg (rounded from 56.4 mg = 1 mg/kg/DOSE 56.4 kg), Intravenous, EVERY 6 HOURS PRN, Starting on 06/17/25 at 0912, Until 06/19/25 at 1202, Nausea 0923 (Given - Provider: Vi Jiménez RN) NaCl 0.9 % 10 mL 10 mL PRN (0.177 ml/kg/DOSE), Intravenous, at 0-999 mL/hr, Line Care, For mixture of medications, Starting on 06/17/25 at 0606, For 90 days, For mixture of medications NaCl 0.9 % IV Flush bag 30 mL 30 mL PRN (0.532 ml/kg/DOSE), Intravenous, at 0-999 mL/hr, Flush IV line after medication IVPB bag if given., Starting on 06/17/25 at 0606, For 90 days, Flush IV line after medication IVPB bag if given. NaCl 0.9% PosiFlush 10 mL 10 mL PRN (0.177 ml/kg/DOSE), Intravenous, at 0-999 mL/hr, Line Care, Starting on 06/17/25 at 0301, For 90 days NaCl 0.9% PosiFlush 2 mL 2 mL PRN (0.0355 ml/kg/DOSE), Intravenous, at 0-999 mL/hr, Line Care, Starting on 06/17/25 at 0301, For 90 days NaCl 0.9% PosiFlush 2 mL 2 mL PRN (0.0355 ml/kg/DOSE), Intravenous, at 0-999 mL/hr, Line Care, Starting on 06/17/25 at 0606, For 90 days 0827 (Push - Provider: Vi Jiménez RN)09 (Push - Provider: Vi Jiménez RN)0926 (Push - Provider: Vi Jiménez RN) NaCl 0.9% PosiFlush 5 mL 5 mL PRN (0.0887 ml/kg/DOSE), Intravenous, at 0-999 mL/hr, Line Care, Starting on 06/17/25 at 0606, For 90 days, Central Line. ondansetron (ZOFRAN) injection 4 mg 4 mg (0.0709 mg/kg/DOSE), Intravenous, EVERY 8 HOURS PRN, Starting on 06/17/25 at 1200, Until 06/19/25 at 1202, First Line Nausea ondansetron (ZOFRAN) injection 4 mg (CANCELED) 4 mg (0.0709 mg/kg/DOSE), Intravenous, EVERY 8 HOURS PRN, Starting on 06/17/25 at 0913, Until 06/18/25 at 0403, First Line Nausea 0328 (Given - Provider: Samy Peck RN) polyethylene glycol (GLYCOLAX) packet 17 g 17 g (0.301 g/kg/DOSE), Oral, DAILY PRN, Starting on 06/18/25 at 1019, Until 06/19/25 at 1202, Constipation, Nursing to dilute in dose-specific volume of fluid/feeds: 2 mL 4.25 mL 8.5 mL 17 mL 34 mL 1604 (Given - Provider: Sandie Robles RN) sterile water injection 10 mL 10 mL (0.177 ml/kg/DOSE), Intravenous, PRN, Starting on 06/17/25 at 0606, Until 06/19/25 at 1202, For mixture of medications, For mixture of medications FOR RECORDS PERTAINING TO PATIENTS WHO ARE [...] BE BASED ON THE PRIMARY CLINICAL RECORDS. [facility]. provides no warranty or guarantee of the accuracy or completeness of information in this document.
[2025-07-09] MEDS: Tetracaine/Benzocaine/Butamben 1 APPLIC TOPICAL (01:58)
[2025-07-09 01:59] VITALS: BP 101/58; PULSE 77; RESP 18; TEMP 36.6; O2SAT 98
== END 2025-07-09 02:00 | disposition home or self-care (01) ==
PROVIDERS: Emergency Provider Emergency Medicine; PCP Pediatrics; Visit Provider Emergency Medicine
DX: K02.9 Dental caries, unspecified (principal); K08.89 Other specified disorders of teeth and supporting structures; F17.210 Nicotine dependence, cigarettes, uncomplicated
CPT/HCPCS: 99283